=== PATIENT | male | born 1985 | race Caucasian/White ===

== ENCOUNTER 2021-09-18 13:58 | Inpatient (IN) | payer OTHER, SELFPAY ==
[2021-09-18 14:10] VITALS: BP 124/85; PULSE 103; RESP 18; TEMP 36.6; O2SAT 99; BMI 18.7
--- NOTE | 2021-09-18 15:10 | ED.NEUROSD ---
HPI - Neuro Symptoms/Deficit General Chief Complaint: Neuro Symptoms/Deficit Stated Complaint: NECK PAIN STS NEEDS MRI Time Seen by Provider: 09/18/21 14:01 Source: patient Mode of arrival: ambulatory Limitations: language barrier (Patient does speak Kazakh, his 1st language is Maltese, middle school assistant principal was used) History of Present Illness HPI Narrative: 36-year-old male with a history of MS who presents emergency department for evaluation numbness of new facial numbness, lower extremity numbness, lower extremity weakness, change in his speech, difficulty swallowing and difficulty walking secondary to his weakness. Patient states that he has had MS for approximately 6 years. His neurologist is Dr. Perera at [facility]. He states that he last had a flare-up of his MS in August of 2020 received 5 days of IV steroids. The patient states that his speech has changed. He states that he is having difficulty swallowing but is able to swallow solids and liquids. He states that he normally walks with a walker but over the past 5 days his legs have become weak and he feels off balance and needs to use a wheelchair which is unusual for him. He states that he has new numbness in his face, arms and legs. States that his arms are also weaker than usual. Patient does have a history of migraine headaches he states he is also having headache she describes as a diffuse, constant, dull pain which is moderate in intensity. He denied fever, chills, chest pain, shortness of breath. The patient states that he received his 2nd shot his COVID-19 vaccination approximately 1 month prior but cannot recall which brand vaccine he received. Related Data Home Medications Medication Instructions Recorded Confirmed cholecalciferol (vitamin D3) 50 1 cap PO DAILY 09/18/21 09/18/21 mcg (2,000 unit) capsule dimethyl fumarate 240 mg 240 mg PO BID 09/18/21 09/18/21 capsule,delayed release ibuprofen 200 mg tablet 400 mg PO Q6H PRN 09/18/21 09/18/21 Allergies Allergy/AdvReac Type Severity Reaction Status Date / Time No Known Allergies Allergy Unverified 06/29/20 18:51 [No Known Allergies*] Review of Systems Review of Systems: Yes all other systems are reviewed and are negative [facility] Past Medical History [facility] Narrative: Past medical history: Multiple sclerosis x6 years, bowel to [facility]. Past surgical history: Umbilical hernia repair. Social history: The patient smokes 1-2 cigarettes per day. He occasionally drinks alcohol. He smokes marijuana daily. Social History Social History Advance Directives: No Advance Directives Information Provided: No Physical Exam Vital Signs: Vital Signs: Last Vital Signs Temp 98 F 09/18/21 14:10 Pulse 103 H 09/18/21 14:10 Resp 18 09/18/21 14:10 BP 124/85 09/18/21 14:10 Pulse Ox 99 09/18/21 14:10 BMI result Body Mass Index 18.7 Const: Other: Awake, alert, male patient, very pleasant and cooperative the patient does have slow comprehensible speech with no difficulty with word finding. He does not appear to be in distress. HENMT: Head: Yes normal to inspection, Yes normocephalic and Yes atraumatic Ears: external ears normal General nose exam: Normal external nose present Face and sinus: Yes normal facial exam Mouth: Normal oral and palatal mucosa present Throat: Yes posterior oropharynx normal Eyes: General: appearance normal, both eyes and all related structures Neck: Neck: Yes normal visual inspection, Yes no lymphadenopathy, Yes trachea midline and Yes supple Chest: Chest palpation & inspection: normal inspection of the chest and normal palpation of entire chest wall Resp: Effort & Inspection: normal respiratory effort and able to speak in complete sentences Auscultation: clear to auscultation bilaterally Cardio: Rate: regular rate Rhythm: regular rhythm Heart sounds: S1 normal heart sound present, S2 normal heart sound present and no murmurs GI: Inspection: Yes normal to inspection Palpation (GI): Soft to palpation, nontender and no guarding Auscultation: normal bowel sounds : General: Yes no CVA tenderness Back/Spine/Pelvis: Back: no CVA tenderness Skin: General skin exam: no rashes or lesions noted Neuro: Other: Neurologic exam: The patient has a slow speech pattern with slightly dysarthric speech but it is comprehensible. The patient's cranial nerves are intact the patient's upper extremity strength is symmetric, he is able to hold his arms up against gravity but he does have symmetric weakness. Patient is able to hold his left lower extremity up against gravity, he is able to lift his right lower extremity but quickly falls back to the bed. Patient's light touch examination appears to be normal and symmetric bilaterally. Extrem: General: Yes normal to inspection Psych: Appearance: grossly normal Speech and movement: Normal speech and movement present Affect: normal affect Attitude: cooperative Thought process: Normal thought process present Thought content: Normal thought content present Course Course Course Narrative: 36-year-old male with a 6 year history of MS who normally able to walk using a walker who has had a change in his speech pattern with weakness in his upper and lower extremities and is not able to walk secondary to this weakness. Initial vital signs revealed an elevated pulse of 103. examination did reveal a slow, dysarthric speech pattern which is comprehensible he does have upper extremity weakness which appears to be symmetric right greater than left. I am concerned the patient may have a flare-up of his MS. I ordered laboratory evaluation to include CBC, CMP, CRP, sedimentation rate, CK, urinalysis, urine drug screen, ETOH level. I will also obtain an MRI with and without contrast the patient's brain and cervical spine. The patient will be treated with morphine 4 mg IV and Zofran 4 mg IV for his headache. I also ordered Solu-Medrol 1000 mg IV for possible MS flare up. 1639: Laboratory evaluation: WBC was elevated 13,300, H&H was normal 14 and 43.4, platelet count was normal 199,000. CMP was normal. CK was not elevated. CRP was normal. ESR is pending. TSH is pending. Urine tox screen was negative. Alcohol is below detectable limits. I did discuss the patient's presentation with our covering neurologist, Dr. Leone. He agreed with the MRIs as above and also agreed with the IV Solu-Medrol. Recommended the patient be admitted for further management MS flare up. I will discuss the patient's presentation with the covering hospitalist. 1720: Patient was presented to the covering hospitalist, nurse practitioner Amrita Ardon who accepted the patient on to the hospital service. MDM - Neuro Symptoms/Deficit Lab Data Result diagrams: 09/18/21 16:16 09/18/21 16:16 Labs: Lab Results 09/18/21 09/18/21 09/18/21 Range/Units 16:16 16:16 16:16 WBC 13.3 H (4.8-10.8) X10*3/uL RBC 5.44 (4.60-5.80) X10*6/uL Hgb 14.2 (14.0-18.0) g/dl Hct 43.4 (42.0-52.0) % MCV 79.8 L (80.0-98.0) fL MCH 26.1 L (27.0-33.0) pg MCHC 32.7 (31.0-36.0) g/dl RDW 13.8 (11.0-16.0) % Plt Count 199 (160-400) X10*3/uL MPV 12.5 H (9.4-12.4) fL Immature Gran % (Auto) 0.3 (0.0-0.4) % Neut % (Auto) 83.3 H (45-73) % Lymph % (Auto) 6.8 L (20-40) % [place] % (Auto) 9.1 (2-11) % Eos % (Auto) 0.3 (0-4) % Baso % (Auto) 0.2 (0-2) % Lymph # (Auto) 0.9 L (1.2-4.9) X10*3/uL [place] # (Auto) 1.2 (0.1-1.2) X10*3/uL Eos # (Auto) 0.0 (0.0-0.4) X10*3/uL Baso # (Auto) 0.0 (0.0-0.2) X10*3/uL Abs Immat Gran (auto) 0.04 H (0.00-0.03) X10*3/uL Absolute Neuts (auto) 11.1 H (2.0-8.3) x10*3/uL Absolute Nucleated RBC 0.000 (0.0-0.012) X10*3/uL Nucleated RBC % (auto) 0.0 (0.0-0.2) /100WBC ESR 3 (0-15) MM/HR PT 12.6 (9.9-13.0) SEC INR 1.1 (0.9-1.1) APTT 40.7 H (24.1-38.0) SEC Sodium (135-145) mmol/L Potassium (3.3-5.1) mmol/L Chloride (96-108) mmol/L Carbon Dioxide (22-29) mmol/L Anion Gap (12-20) BUN (9-16) mg/dL Creatinine (0.5-1.4) mg/dL Estim Creat Clear Calc Estimated GFR Random Glucose (60-115) mg/dL Calcium (8.4-10.2) mg/dL Total Bilirubin (0.0-1.0) mg/dL AST (5-37) U/L ALT (0-40) U/L Alkaline Phosphatase (39-117) U/L Total Creatine Kinase (38-174) U/L C-Reactive Protein (< or = 0.50) mg/dL Total Protein (6.5-8.0) g/dL Albumin (3.5-5.0) g/dL Lipase (8-78) U/L TSH (0.32-4.0) uIU/mL Urine Color Urine Appearance Urine pH (5.0-8.0) Ur Specific [place] (1.005-1.025) Urine Protein (NEG-TRACE) MG/DL Urine Glucose (UA) (NEG) MG/DL Urine Ketones (NEG) MG/DL Urine Blood (NEG) Urine Nitrite (NEG) Ur Leukocyte Esterase (NEG) Urine RBC (0) /HPF Urine WBC (0-4) /HPF Ur Squamous Epith Cells /LPF Amorphous Sediment /LPF Urine Bacteria /LPF Urine Opiates Screen (Not Detect) Urine Fentanyl Screen (Not Detect) Ur Barbiturates Screen (Not Detect) Ur Phencyclidine Scrn (Not Detect) Ur Amphetamines Screen (Not Detect) U Benzodiazepines Scrn (Not Detect) Urine Cocaine Screen (Not Detect) U Marijuana (THC) Screen (Not Detect) Ethyl Alcohol mg/dL COVID-19 ([facility]) (Negative) COVID-19 Clin Com 09/18/21 09/18/21 09/18/21 Range/Units 16:16 16:16 16:16 WBC (4.8-10.8) X10*3/uL RBC (4.60-5.80) X10*6/uL Hgb (14.0-18.0) g/dl Hct (42.0-52.0) % MCV (80.0-98.0) fL MCH (27.0-33.0) pg MCHC (31.0-36.0) g/dl RDW (11.0-16.0) % Plt Count (160-400) X10*3/uL MPV (9.4-12.4) fL Immature Gran % (Auto) (0.0-0.4) % Neut % (Auto) (45-73) % Lymph % (Auto) (20-40) % [place] % (Auto) (2-11) % Eos % (Auto) (0-4) % Baso % (Auto) (0-2) % Lymph # (Auto) (1.2-4.9) X10*3/uL [place] # (Auto) (0.1-1.2) X10*3/uL Eos # (Auto) (0.0-0.4) X10*3/uL Baso # (Auto) (0.0-0.2) X10*3/uL Abs Immat Gran (auto) (0.00-0.03) X10*3/uL Absolute Neuts (auto) (2.0-8.3) x10*3/uL Absolute Nucleated RBC (0.0-0.012) X10*3/uL Nucleated RBC % (auto) (0.0-0.2) /100WBC ESR (0-15) MM/HR PT (9.9-13.0) SEC INR (0.9-1.1) APTT (24.1-38.0) SEC Sodium 140 (135-145) mmol/L Potassium 4.2 (3.3-5.1) mmol/L Chloride 101 (96-108) mmol/L Carbon Dioxide 29 (22-29) mmol/L Anion Gap 14 (12-20) BUN 11 (9-16) mg/dL Creatinine 0.75 (0.5-1.4) mg/dL Estim Creat Clear Calc 106.8 Estimated GFR > 60 Random Glucose 89 (60-115) mg/dL Calcium 9.7 (8.4-10.2) mg/dL Total Bilirubin 0.6 (0.0-1.0) mg/dL AST 17 (5-37) U/L ALT 19 (0-40) U/L Alkaline Phosphatase 60 (39-117) U/L Total Creatine Kinase 79 (38-174) U/L C-Reactive Protein 0.04 (< or = 0.50) mg/dL Total Protein 7.9 (6.5-8.0) g/dL Albumin 4.8 (3.5-5.0) g/dL Lipase 34 (8-78) U/L TSH 0.83 (0.32-4.0) uIU/mL Urine Color Urine Appearance Urine pH (5.0-8.0) Ur Specific [place] (1.005-1.025) Urine Protein (NEG-TRACE) MG/DL Urine Glucose (UA) (NEG) MG/DL Urine Ketones (NEG) MG/DL Urine Blood (NEG) Urine Nitrite (NEG) Ur Leukocyte Esterase (NEG) Urine RBC (0) /HPF Urine WBC (0-4) /HPF Ur Squamous Epith Cells /LPF Amorphous Sediment /LPF Urine Bacteria /LPF Urine Opiates Screen (Not Detect) Urine Fentanyl Screen (Not Detect) Ur Barbiturates Screen (Not Detect) Ur Phencyclidine Scrn (Not Detect) Ur Amphetamines Screen (Not Detect) U Benzodiazepines Scrn (Not Detect) Urine Cocaine Screen (Not Detect) U Marijuana (THC) Screen (Not Detect) Ethyl Alcohol < 10 mg/dL COVID-19 ([facility]) Negative (Negative) COVID-19 Clin Com See Note 09/18/21 09/18/21 Range/Units 16:16 16:16 WBC (4.8-10.8) X10*3/uL RBC (4.60-5.80) X10*6/uL Hgb (14.0-18.0) g/dl Hct (42.0-52.0) % MCV (80.0-98.0) fL MCH (27.0-33.0) pg MCHC (31.0-36.0) g/dl RDW (11.0-16.0) % Plt Count (160-400) X10*3/uL MPV (9.4-12.4) fL Immature Gran % (Auto) (0.0-0.4) % Neut % (Auto) (45-73) % Lymph % (Auto) (20-40) % [place] % (Auto) (2-11) % Eos % (Auto) (0-4) % Baso % (Auto) (0-2) % Lymph # (Auto) (1.2-4.9) X10*3/uL [place] # (Auto) (0.1-1.2) X10*3/uL Eos # (Auto) (0.0-0.4) X10*3/uL Baso # (Auto) (0.0-0.2) X10*3/uL Abs Immat Gran (auto) (0.00-0.03) X10*3/uL Absolute Neuts (auto) (2.0-8.3) x10*3/uL Absolute Nucleated RBC (0.0-0.012) X10*3/uL Nucleated RBC % (auto) (0.0-0.2) /100WBC ESR (0-15) MM/HR PT (9.9-13.0) SEC INR (0.9-1.1) APTT (24.1-38.0) SEC Sodium (135-145) mmol/L Potassium (3.3-5.1) mmol/L Chloride (96-108) mmol/L Carbon Dioxide (22-29) mmol/L Anion Gap (12-20) BUN (9-16) mg/dL Creatinine (0.5-1.4) mg/dL Estim Creat Clear Calc Estimated GFR Random Glucose (60-115) mg/dL Calcium (8.4-10.2) mg/dL Total Bilirubin (0.0-1.0) mg/dL AST (5-37) U/L ALT (0-40) U/L Alkaline Phosphatase (39-117) U/L Total Creatine Kinase (38-174) U/L C-Reactive Protein (< or = 0.50) mg/dL Total Protein (6.5-8.0) g/dL Albumin (3.5-5.0) g/dL Lipase (8-78) U/L TSH (0.32-4.0) uIU/mL Urine Color YELLOW Urine Appearance CLEAR Urine pH 7.5 (5.0-8.0) Ur Specific [place] 1.010 (1.005-1.025) Urine Protein NEG (NEG-TRACE) MG/DL Urine Glucose (UA) NEG (NEG) MG/DL Urine Ketones NEG (NEG) MG/DL Urine Blood TRACE (NEG) Urine Nitrite NEG (NEG) Ur Leukocyte Esterase NEG (NEG) Urine RBC 0-2 (0) /HPF Urine WBC 0 (0-4) /HPF Ur Squamous Epith Cells TRACE /LPF Amorphous Sediment 2+ /LPF Urine Bacteria NONE /LPF Urine Opiates Screen Not Detected (Not Detect) Urine Fentanyl Screen Not Detected (Not Detect) Ur Barbiturates Screen Not Detected (Not Detect) Ur Phencyclidine Scrn Not Detected (Not Detect) Ur Amphetamines Screen Not Detected (Not Detect) U Benzodiazepines Scrn Not Detected (Not Detect) Urine Cocaine Screen Not Detected (Not Detect) U Marijuana (THC) Screen Not Detected (Not Detect) Ethyl Alcohol mg/dL COVID-19 ([facility]) (Negative) COVID-19 Clin Com Discharge Plan Discharge Patient Disposition: Admitted As Inpatient Prescriptions: No Action ibuprofen 200 mg Tablet 400 mg PO Q6H PRN (Reason: Pain) RF: 0 cholecalciferol (vitamin D3) 50 mcg (2,000 unit) capsule 1 cap PO DAILY RF: 0 dimethyl fumarate 240 mg capsule,delayed release(DR/EC) 240 mg PO BID RF: 0
[2021-09-18 16:21] LABS: MANUAL DIFF FLAG NO
[2021-09-18 16:22] LABS: Basophils Percent Auto 0.2 % (0-2); Eosinophils Percent Auto 0.3 % (0-4); Hematocrit 43.4 % (42.0-52.0); Hemoglobin 14.2 g/dl (14.0-18.0); Imm Gran Abs Auto 0.04 X10*3/uL (0.00-0.03); Imm Gran Pct Auto 0.3 % (0.0-0.4); Lymphocytes Absolute Auto 0.9 X10*3/uL (1.2-4.9); Lymphocytes Percent Auto 6.8 % (20-40); Mean Corpuscular HGB Conc 32.7 g/dl (31.0-36.0); Mean Corpuscular Hemoglobin 26.1 pg (27.0-33.0); Mean Corpuscular Volume 79.8 fL (80.0-98.0); Mean Platelet Volume 12.5 fL (9.4-12.4); Monocytes Absolute Auto 1.2 X10*3/uL (0.1-1.2); Monocytes Percent Auto 9.1 % (2-11); Neutrophils Absolute Auto 11.1 x10*3/uL (2.0-8.3); Neutrophils Percent Auto 83.3 % (45-73); Platelet Count 199 X10*3/uL (160-400); Red Blood Count 5.44 X10*6/uL (4.60-5.80); Red Cell Distribution Width 13.8 % (11.0-16.0); White Blood Count 13.3 X10*3/uL (4.8-10.8)
[2021-09-18 16:23] LABS: Appearance Urine CLEAR; Color Urine YELLOW; Glucose Urine UA NEG (NEG); Leukocyte Esterase Urine NEG (NEG); Nitrite Urine NEG (NEG); PH 7.5 (5.0-8.0); UACC Culture Trigger NO; Urine Blood TRACE (NEG); Urine Ketones NEG (NEG); Urine Protein NEG (NEG-TRACE)
[2021-09-18 16:29] LABS: INTERNATIONAL NORM RATIO 1.1 (0.9-1.1); Prothrombin Time 12.6 SEC (9.9-13.0)
[2021-09-18 16:32] LABS: Partial Thromboplastin Time 40.7 SEC (24.1-38.0)
[2021-09-18] MEDS: ondansetron HCL 4 MG/2 ML VIAL IVPUSH (16:32)
[2021-09-18] MEDS: Morphine Sulfate 4 MG/ML CARTRIDGE IVPUSH (16:32)
[2021-09-18 16:34] LABS: Ethanol < 10 mg/dL
[2021-09-18 16:38] LABS: Amorphous Sediment Urine 2+ /LPF; RBC Urine 0-2 /HPF (0); Squamous Epithelial Cell Urine TRACE /LPF; WBC Urine 0 /HPF (0-4)
[2021-09-18 16:39] LABS: Alanine Aminotransferase 19 U/L (0-40); Albumin Level 4.8 g/dL (3.5-5.0); Alkaline Phosphatase 60 U/L (39-117); Amphetamine Screen Urine Not Detected (Not Detect); Anion Gap 14 (12-20); Aspartate Amino Transferase 17 U/L (5-37); Barbiturates, Urine Not Detected (Not Detect); Benzodiazepines Screen Urine Not Detected (Not Detect); Bilirubin Total 0.6 mg/dL (0.0-1.0); Blood Urea Nitrogen 11 mg/dL (9-16); C Reactive Protein 0.04 mg/dL (< or = 0.50); Calcium 9.7 mg/dL (8.4-10.2); Cannabinoid Screen Urine Not Detected (Not Detect); Carbon Dioxide 29 mmol/L (22-29); Chloride 101 mmol/L (96-108); Cocaine Screen Urine Not Detected (Not Detect); Creatinine Clr Calc Pharmacy 106.8; Estimated Glomerular Filt Rate > 60; Fentanyl, urine Not Detected (Not Detect); Glucose Random 89 mg/dL (60-115); Lipase 34 U/L (8-78); Opiate Screen Urine Not Detected (Not Detect); Phencyclidine Screen Urine Not Detected (Not Detect); Potassium 4.2 mmol/L (3.3-5.1); Sodium 140 mmol/L (135-145); Total Protein 7.9 g/dL (6.5-8.0)
[2021-09-18 16:44] LABS: COVID-19 Test Negative (Negative)
[2021-09-18] MEDS: methylPREDNISolone Sod Succ 1,000 MG in 0.9 % Sodium Chloride 50 ML 66 MG IV (16:57)
[2021-09-18 16:59] LABS: TSH reflex Free T4 0.83 uIU/mL (0.32-4.0)
[2021-09-18 17:03] LABS: Erythrocyte Sedimentation Rate 3 MM/HR (0-15)
--- NOTE | 2021-09-18 17:13 | PHA.MEDREC ---
Pharmacy Consult ? Medication Reconciliation Pharmacy has completed the medication reconciliation. There are no remarkable issues for provider's attention. Tereza Escamilla, MehulD
--- NOTE | 2021-09-18 17:25 | PM.IMHP ---
History of Present Illness Date of Service: 09/18/21 Attending physician on admission: Romelia Yessenia 36 year old man presenting with 5 days of facial numbness as well as lower extremity numbness, weakness and change in his speech with difficulty swallowing and difficulty walking secondary to his weakness.? Patient states that he has had MS for approximately 6 years.? His neurologist is Dr. Perera at [facility].? His last flare was in 09/01. He is normally able to walk with a walker but has had more difficulty recently. Vital signs stable, Labs within acceptable limits. He was given 1mg of IV solumedrol, morphine, zofran. He will be admitted for further management and treatment of acute MS flare. Review of Systems Review of Systems: Denies any recent fever chills or decrease in appetite respiratory denies any shortness of breath coverage production cardiovascular denies chest pain gastrointestinal denies any dysphagia abdominal pain nausea vomiting or diarrhea genitourinary denies any dysuria frequency or hematuria musculoskeletal denies any joint pain or swelling neuropsych denies any weakness or seizures, speech change all other systems reviewed are negative [facility] Medical History (Updated 09/18/21 @ 17:38 by Amrita Ardon NP) Multiple sclerosis Pertinent family history: CAD, kidmey disease Surgical History (Updated 09/18/21 @ 18:42 by Amrita Ardon NP) H/O hernia repair Social History (Updated 09/18/21 @ 18:42 by Amrita Ardon NP) Household Members: Family Patient Tobacco Use Status: Tobacco use Unknown Substance Use Type: Marijuana Advance Directives: No Advance Directives Information Provided: No Meds Allergies Allergy/AdvReac Type Severity Reaction Status Date / Time No Known Allergies Allergy Unverified 06/29/20 18:51 [No Known Allergies*] Active Medications: Current Medications Acetaminophen (Acetaminophen 325 Mg Tablet) 650 mg PO Q6H PRN PRN Reason: Pain, Mild (Pain Scale 1-3) Enoxaparin Sodium (Enoxaparin Sodium 40 Mg/0.4 Ml Syringe) 40 mg SUBCUT Q24H LALO Methylprednisolone Sodium Succinate 1,000 mg/ Sodium Chloride 66 mls @ 66 mls/hr IV ONCE STA Stop: 09/18/21 17:28 Last Admin: 09/18/21 16:57 Dose: 66 mls/hr Documented by: Methylprednisolone Sodium Succinate (Methylprednisolone Sod Succ 40 Mg/Ml Vial) 1,000 mg IVPUSH DAILY [facility] Morphine Sulfate (Morphine Sulfate 2 Mg/Ml Cartridge) 2 mg IVPUSH Q4H PRN; Protocol PRN Reason: Pain, Mild (Pain Scale 1-3) Ondansetron HCl (Ondansetron Hcl 4 Mg/2 Ml Vial) 4 mg IVPUSH Q8H PRN PRN Reason: Nausea and Vomiting Pharmacy Consult (Consult Rx Perform Med Rec) 1 each MISCELLANE ONCE PRN PRN Reason: Consult order Sodium Chloride (0.9 % Sodium Chloride Flush 3 Ml Syringe) 3 ml IVFLUSH QSHIFT [facility] Home Medications Medication Instructions Recorded Confirmed Last Taken Type cholecalciferol (vitamin D3) 50 1 cap PO DAILY 09/18/21 09/18/21 09/18/21 History mcg (2,000 unit) capsule dimethyl fumarate 240 mg 240 mg PO BID 09/18/21 09/18/21 09/18/21 History capsule,delayed release ibuprofen 200 mg tablet 400 mg PO Q6H PRN 09/18/21 09/18/21 Unknown History Physical Exam Vital Signs and Narrative: Vital Signs: Last Vital Signs Temp 98 F 09/18/21 14:10 Pulse 103 H 09/18/21 14:10 Resp 18 09/18/21 14:10 BP 124/85 09/18/21 14:10 Pulse Ox 99 09/18/21 14:10 BMI result Body Mass Index 18.7 Appearing in no acute distress head is normocephalic atraumatic eyes pupils are PERRLA sclera is anicteric mouth throat mucous membranes are intact and moist neck is supple no lymphadenopathy, no JVD noted lung sounds are clear to auscultation heart regular rate rhythm, clear S1, S2 positive bowel sounds, abdomen is soft, nontender neuro patient is alert x3, no focal deficits Results Labs CBC and Chem 7: 09/18/21 16:16 09/18/21 16:16 Labs: Laboratory Results - last 24 hr 09/18/21 09/18/21 09/18/21 16:16 16:16 16:16 MCV 79.8 L MCH 26.1 L MCHC 32.7 RDW 13.8 Plt Count 199 MPV 12.5 H Immature Gran % (Auto) 0.3 Neut % (Auto) 83.3 H Lymph % (Auto) 6.8 L [place] % (Auto) 9.1 Eos % (Auto) 0.3 Baso % (Auto) 0.2 Lymph # (Auto) 0.9 L [place] # (Auto) 1.2 Eos # (Auto) 0.0 Baso # (Auto) 0.0 Abs Immat Gran (auto) 0.04 H Absolute Neuts (auto) 11.1 H Absolute Nucleated RBC 0.000 Nucleated RBC % (auto) 0.0 ESR 3 PT 12.6 INR 1.1 APTT 40.7 H Anion Gap Estim Creat Clear Calc Estimated GFR Random Glucose Calcium Total Bilirubin AST ALT Alkaline Phosphatase Total Creatine Kinase C-Reactive Protein Total Protein Albumin Lipase TSH Urine Color Urine Appearance Urine pH Ur Specific [employer] Urine Protein Urine Glucose (UA) Urine Ketones Urine Blood Urine Nitrite Ur Leukocyte Esterase Urine RBC Urine WBC Ur Squamous Epith Cells Amorphous Sediment Urine Bacteria Urine Opiates Screen Urine Fentanyl Screen Ur Barbiturates Screen Ur Phencyclidine Scrn Ur Amphetamines Screen U Benzodiazepines Scrn Urine Cocaine Screen U Marijuana (THC) Screen Ethyl Alcohol COVID-19 ([facility]) COVID-19 [employer] Com 09/18/21 09/18/21 09/18/21 16:16 16:16 16:16 MCV MCH MCHC RDW Plt Count MPV Immature Gran % (Auto) Neut % (Auto) Lymph % (Auto) [place] % (Auto) Eos % (Auto) Baso % (Auto) Lymph # (Auto) [place] # (Auto) Eos # (Auto) Baso # (Auto) Abs Immat Gran (auto) Absolute Neuts (auto) Absolute Nucleated RBC Nucleated RBC % (auto) ESR PT INR APTT Anion Gap 14 Estim Creat Clear Calc 106.8 Estimated GFR > 60 Random Glucose 89 Calcium 9.7 Total Bilirubin 0.6 AST 17 ALT 19 Alkaline Phosphatase 60 Total Creatine Kinase 79 C-Reactive Protein 0.04 Total Protein 7.9 Albumin 4.8 Lipase 34 TSH 0.83 Urine Color Urine Appearance Urine pH Ur Specific [employer] Urine Protein Urine Glucose (UA) Urine Ketones Urine Blood Urine Nitrite Ur Leukocyte Esterase Urine RBC Urine WBC Ur Squamous Epith Cells Amorphous Sediment Urine Bacteria Urine Opiates Screen Urine Fentanyl Screen Ur Barbiturates Screen Ur Phencyclidine Scrn Ur Amphetamines Screen U Benzodiazepines Scrn Urine Cocaine Screen U Marijuana (THC) Screen Ethyl Alcohol < 10 COVID-19 ([facility]) Negative COVID-19 [employer] Com See Note 09/18/21 09/18/21 16:16 16:16 MCV MCH MCHC RDW Plt Count MPV Immature Gran % (Auto) Neut % (Auto) Lymph % (Auto) [place] % (Auto) Eos % (Auto) Baso % (Auto) Lymph # (Auto) [place] # (Auto) Eos # (Auto) Baso # (Auto) Abs Immat Gran (auto) Absolute Neuts (auto) Absolute Nucleated RBC Nucleated RBC % (auto) ESR PT INR APTT Anion Gap Estim Creat Clear Calc Estimated GFR Random Glucose Calcium Total Bilirubin AST ALT Alkaline Phosphatase Total Creatine Kinase C-Reactive Protein Total Protein Albumin Lipase TSH Urine Color YELLOW Urine Appearance CLEAR Urine pH 7.5 Ur Specific [employer] 1.010 Urine Protein NEG Urine Glucose (UA) NEG Urine Ketones NEG Urine Blood TRACE Urine Nitrite NEG Ur Leukocyte Esterase NEG Urine RBC 0-2 Urine WBC 0 Ur Squamous Epith Cells TRACE Amorphous Sediment 2+ Urine Bacteria NONE Urine Opiates Screen Not Detected Urine Fentanyl Screen Not Detected Ur Barbiturates Screen Not Detected Ur Phencyclidine Scrn Not Detected Ur Amphetamines Screen Not Detected U Benzodiazepines Scrn Not Detected Urine Cocaine Screen Not Detected U Marijuana (THC) Screen Not Detected Ethyl Alcohol COVID-19 ([facility]) COVID-19 Clin Com Assessment and Plan (1) Multiple sclerosis exacerbation: Status: Acute 36-year-old man admitted with acute multiple sclerosis flare Multiple sclerosis flare 1 g of IV Solu-Medrol daily Pain management Supportive care MRI DVT prophylaxis with Lovenox attending Dr. Casas Quality Stroke Does the patient have a stroke diagnosis?: No VTE Prior VTE?: No VTE Risk Level:: Medical - moderate - high VTE Device Contraindication: Treatment Not Indicated VTE Drug Contraindication: N/A - Med Ordered
[2021-09-18 17:34] VITALS: BP 124/73; PULSE 118; RESP 15; TEMP 37.2; O2SAT 98
[2021-09-18] MEDS: Enoxaparin Sodium 40 MG/0.4 ML SYRINGE SUBCUT (18:38)
--- NOTE | 2021-09-18 19:40 | PC.NURSE ---
Per MRI staff, pt unable to tolerate scan, requested to exit machine and was noted by MRI staff to be diaphoretic and anxious. Pt returned to ED. MD Whitaker notified that scan was not obtained. Pt calm and in NAD upon reassessment
[2021-09-18 21:53] VITALS: BP 121/66; PULSE 86; TEMP 37.1; O2SAT 96
[2021-09-19 00:16] VITALS: BP 147/84; PULSE 108; TEMP 37; O2SAT 99
[2021-09-19 06:19] LABS: Hemoglobin 13.6 g/dl (14.0-18.0); Mean Corpuscular Volume 79.4 fL (80.0-98.0); Red Cell Distribution Width 13.4 % (11.0-16.0)
[2021-09-19 06:21] LABS: Hematocrit 41.3 % (42.0-52.0); Mean Corpuscular HGB Conc 32.9 g/dl (31.0-36.0); Mean Corpuscular Hemoglobin 26.2 pg (27.0-33.0); Mean Platelet Volume 13.2 fL (9.4-12.4); Platelet Count 191 X10*3/uL (160-400)
[2021-09-19 06:22] LABS: PLT ABN DIST 1; WBC ABN SCTR FOR CBC 1
[2021-09-19 06:23] LABS: White Blood Count 8.8 X10*3/uL (4.8-10.8)
[2021-09-19 06:36] LABS: Anion Gap 15 (12-20); Blood Urea Nitrogen 12 mg/dL (9-16); Carbon Dioxide 24 mmol/L (22-29); Chloride 105 mmol/L (96-108); Creatinine Clr Calc Pharmacy 96.5; Estimated Glomerular Filt Rate > 60; Glucose Random 144 mg/dL (60-115); Potassium 4.6 mmol/L (3.3-5.1); Sodium 139 mmol/L (135-145)
[2021-09-19 06:43] LABS: Band Neutrophils Percent 0 % (3-5); Lymphocytes Absolute Manual 0.7 X10*3/uL (1.2-4.9); Lymphocytes Percent Manual 8 % (20-40); Monocytes Absolute Manual 0.4 X10*3/uL (0.1-1.2); Monocytes Percent Manual 4 % (2-11); Neutrophils Absolute Manual 7.7 X10*3/uL (2.0-8.3); Neutrophils Percent Manual 88 % (45-73); Platelet Estimate NORMAL (NORMAL); Platelet Morphology Comment NORMAL; RBC Morphology NORMAL
[2021-09-19 08:00] VITALS: BP 127/82; PULSE 98; RESP 18; TEMP 37.2; O2SAT 98
--- NOTE | 2021-09-19 08:52 | P.PNIM_ITS ---
Subjective Subjective Date of Service: 09/19/21 Review of Systems Follow-up MS flare Speech slowly improving Denies pain Still with some muscle twitches All other systems are reviewed and are negative Physical Exam Vital Signs: Vital Signs: Last Vital Signs Temp 98.6 F 09/19/21 00:16 Pulse 108 H 09/19/21 00:16 Resp 15 09/18/21 17:34 BP 147/84 H 09/19/21 00:16 Pulse Ox 99 09/19/21 00:16 BMI result Body Mass Index 18.7 Appearing in no acute distress lung sounds are clear to auscultation heart regular rate rhythm, clear S1, S2 positive bowel sounds, abdomen is soft, nontender neuro patient is alert x3, no focal deficits Objective Data Active Medications Acetaminophen (Acetaminophen 325 Mg Tablet) 650 mg PO Q6H PRN PRN Reason: Pain, Mild (Pain Scale 1-3) Enoxaparin Sodium (Enoxaparin Sodium 40 Mg/0.4 Ml Syringe) 40 mg SUBCUT Q24H [facility] Last Admin: 09/18/21 18:38 Dose: 40 mg Documented by: ANDRY Methylprednisolone Sodium Succinate (Methylprednisolone Sod Succ 40 Mg/Ml Vial) 1,000 mg IVPUSH DAILY [facility] Morphine Sulfate (Morphine Sulfate 2 Mg/Ml Cartridge) 2 mg IVPUSH Q4H PRN; Prot ocol PRN Reason: Pain, Mild (Pain Scale 1-3) Ondansetron HCl (Ondansetron Hcl 4 Mg/2 Ml Vial) 4 mg IVPUSH Q8H PRN PRN Reason: Nausea and Vomiting Pharmacy Consult (Consult Rx Perform Med Rec) 1 each MISCELLANE ONCE PRN PRN Reason: Consult order Sodium Chloride (0.9 % Sodium Chloride Flush 3 Ml Syringe) 3 ml IVFLUSH QSHIFT [facility] Last Admin: 09/19/21 07:31 Dose: Not Given Documented by: ERICKOSN Non-Admin Reason: Patient Asleep Labs CBC & Chem 7: 09/19/21 06:10 09/19/21 06:10 Labs: Laboratory Results - last 24 hr 09/18/21 09/18/21 09/18/21 16:16 16:16 16:16 MCV 79.8 L MCH 26.1 L MCHC 32.7 RDW 13.8 Plt Count 199 MPV 12.5 H Immature Gran % (Auto) 0.3 Neut % (Auto) 83.3 H Lymph % (Auto) 6.8 L Kidder % (Auto) 9.1 Eos % (Auto) 0.3 Baso % (Auto) 0.2 Lymph # (Auto) 0.9 L Kidder # (Auto) 1.2 Eos # (Auto) 0.0 Baso # (Auto) 0.0 Abs Immat Gran (auto) 0.04 H Absolute Neuts (auto) 11.1 H Absolute Nucleated RBC 0.000 Nucleated RBC % (auto) 0.0 Neutrophils % (Manual) Band Neutrophils % Lymphocytes % (Manual) Monocytes % (Manual) Abs Neuts (Manual) Lymphocytes # (Manual) Monocytes # (Manual) Platelet Estimate Plt Morphology Comment RBC Morphology ESR 3 PT 12.6 INR 1.1 APTT 40.7 H Anion Gap Estim Creat Clear Calc Estimated GFR Random Glucose Calcium Total Bilirubin AST ALT Alkaline Phosphatase Total Creatine Kinase C-Reactive Protein Total Protein Albumin Lipase TSH Urine Color Urine Appearance Urine pH Ur Specific Marion Urine Protein Urine Glucose (UA) Urine Ketones Urine Blood Urine Nitrite Ur Leukocyte Esterase Urine RBC Urine WBC Ur Squamous Epith Cells Amorphous Sediment Urine Bacteria Urine Opiates Screen Urine Fentanyl Screen Ur Barbiturates Screen Ur Phencyclidine Scrn Ur Amphetamines Screen U Benzodiazepines Scrn Urine Cocaine Screen U Marijuana (THC) Screen Ethyl Alcohol COVID-19 ([facility]) COVID-19 Clin Com 09/18/21 09/18/21 09/18/21 16:16 16:16 16:16 MCV MCH MCHC RDW Plt Count MPV Immature Gran % (Auto) Neut % (Auto) Lymph % (Auto) Kidder % (Auto) Eos % (Auto) Baso % (Auto) Lymph # (Auto) Kidder # (Auto) Eos # (Auto) Baso # (Auto) Abs Immat Gran (auto) Absolute Neuts (auto) Absolute Nucleated RBC Nucleated RBC % (auto) Neutrophils % (Manual) Band Neutrophils % Lymphocytes % (Manual) Monocytes % (Manual) Abs Neuts (Manual) Lymphocytes # (Manual) Monocytes # (Manual) Platelet Estimate Plt Morphology Comment RBC Morphology ESR PT INR APTT Anion Gap 14 Estim Creat Clear Calc 106.8 Estimated GFR > 60 Random Glucose 89 Calcium 9.7 Total Bilirubin 0.6 AST 17 ALT 19 Alkaline Phosphatase 60 Total Creatine Kinase 79 C-Reactive Protein 0.04 Total Protein 7.9 Albumin 4.8 Lipase 34 TSH 0.83 Urine Color Urine Appearance Urine pH Ur Specific Marion Urine Protein Urine Glucose (UA) Urine Ketones Urine Blood Urine Nitrite Ur Leukocyte Esterase Urine RBC Urine WBC Ur Squamous Epith Cells Amorphous Sediment Urine Bacteria Urine Opiates Screen Urine Fentanyl Screen Ur Barbiturates Screen Ur Phencyclidine Scrn Ur Amphetamines Screen U Benzodiazepines Scrn Urine Cocaine Screen U Marijuana (THC) Screen Ethyl Alcohol < 10 COVID-19 ([facility]) Negative COVID-19 Clin Com See Note 09/18/21 09/18/21 09/19/21 16:16 16:16 06:10 MCV 79.4 L MCH 26.2 L MCHC 32.9 RDW 13.4 Plt Count 191 MPV 13.2 H Immature Gran % (Auto) Cancelled Neut % (Auto) Cancelled Lymph % (Auto) Cancelled Kidder % (Auto) Cancelled Eos % (Auto) Cancelled Baso % (Auto) Cancelled Lymph # (Auto) Cancelled Kidder # (Auto) Cancelled Eos # (Auto) Cancelled Baso # (Auto) Cancelled Abs Immat Gran (auto) Cancelled Absolute Neuts (auto) Cancelled Absolute Nucleated RBC 0.000 Nucleated RBC % (auto) 0.0 Neutrophils % (Manual) 88 H Band Neutrophils % 0 L Lymphocytes % (Manual) 8 L Monocytes % (Manual) 4 Abs Neuts (Manual) 7.7 Lymphocytes # (Manual) 0.7 L Monocytes # (Manual) 0.4 Platelet Estimate NORMAL Plt Morphology Comment NORMAL RBC Morphology NORMAL ESR PT INR APTT Anion Gap Estim Creat Clear Calc Estimated GFR Random Glucose Calcium Total Bilirubin AST ALT Alkaline Phosphatase Total Creatine Kinase C-Reactive Protein Total Protein Albumin Lipase TSH Urine Color YELLOW Urine Appearance CLEAR Urine pH 7.5 Ur Specific Marion 1.010 Urine Protein NEG Urine Glucose (UA) NEG Urine Ketones NEG Urine Blood TRACE Urine Nitrite NEG Ur Leukocyte Esterase NEG Urine RBC 0-2 Urine WBC 0 Ur Squamous Epith Cells TRACE Amorphous Sediment 2+ Urine Bacteria NONE Urine Opiates Screen Not Detected Urine Fentanyl Screen Not Detected Ur Barbiturates Screen Not Detected Ur Phencyclidine Scrn Not Detected Ur Amphetamines Screen Not Detected U Benzodiazepines Scrn Not Detected Urine Cocaine Screen Not Detected U Marijuana (THC) Screen Not Detected Ethyl Alcohol COVID-19 ([facility]) COVID-19 Clin Com 09/19/21 06:10 MCV MCH MCHC RDW Plt Count MPV Immature Gran % (Auto) Neut % (Auto) Lymph % (Auto) Kidder % (Auto) Eos % (Auto) Baso % (Auto) Lymph # (Auto) Kidder # (Auto) Eos # (Auto) Baso # (Auto) Abs Immat Gran (auto) Absolute Neuts (auto) Absolute Nucleated RBC Nucleated RBC % (auto) Neutrophils % (Manual) Band Neutrophils % Lymphocytes % (Manual) Monocytes % (Manual) Abs Neuts (Manual) Lymphocytes # (Manual) Monocytes # (Manual) Platelet Estimate Plt Morphology Comment RBC Morphology ESR PT INR APTT Anion Gap 15 Estim Creat Clear Calc 96.5 Estimated GFR > 60 Random Glucose 144 H D Calcium 10.0 Total Bilirubin AST ALT Alkaline Phosphatase Total Creatine Kinase C-Reactive Protein Total Protein Albumin Lipase TSH Urine Color Urine Appearance Urine pH Ur Specific Marion Urine Protein Urine Glucose (UA) Urine Ketones Urine Blood Urine Nitrite Ur Leukocyte Esterase Urine RBC Urine WBC Ur Squamous Epith Cells Amorphous Sediment Urine Bacteria Urine Opiates Screen Urine Fentanyl Screen Ur Barbiturates Screen Ur Phencyclidine Scrn Ur Amphetamines Screen U Benzodiazepines Scrn Urine Cocaine Screen U Marijuana (THC) Screen Ethyl Alcohol COVID-19 ([facility]) COVID-19 Clin Com Assessment and Plan (1) Multiple sclerosis exacerbation: Status: Acute (2) Microcytic anemia: Status: Acute Assessment and Plan: 36-year-old man admitted with acute multiple sclerosis flare Multiple sclerosis flare 1 g of IV Solu-Medrol daily Refused MRI and premedications d/t Claustrophobia Pain management Supportive care Microcytic anemia Stable H&H No signs of bleeding Follow CBC DVT prophylaxis with Lovenox attending Dr. Pope Quality Stroke Does the patient have a stroke diagnosis?: No VTE Prior VTE?: No VTE Risk Level:: Medical - moderate - high VTE Device Contraindication: Treatment Not Indicated VTE Drug Contraindication: N/A - Med Ordered
[2021-09-19 10:17] VITALS: BP 127/82; PULSE 98; O2SAT 98
[2021-09-19 11:59] VITALS: BMI 18.7
--- NOTE | 2021-09-19 11:59 | MHC.CM.PN ---
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
[2021-09-19 12:00] VITALS: BP 122/82; PULSE 72; RESP 18; TEMP 37.2; O2SAT 98
--- NOTE | 2021-09-19 12:05 | MHC.CLN ---
PT WITH INCREASED NUTRITION NEEDS R/T MS PT IS WELL NOURISHED APPEARS WITH ADEQUATE MUSCLE MASS. PT REPORTS EXERCISING REGULARLY ON STATIONARY BIKE AT HOME. UBW 156# PER PT. PT ESTIMATED HE WEIGHS APPROXIMATELY 140# AT THIS TIME. ADMIT WT 123# QUESTION ERROR PT APPEARS TO BE WITHIN IBW FOR HT DIET RX: REGULAR-APPROPRIATE PT RECEPTIVE TO DRINKING ENSURE. HE DOES DRINK BOOST AT HOME FOR INCREASED KCALS WILL START ENSURE BID (LIKES ALL FLAVORS) MONITOR PO INTAKE CLOSELY OBTAIN RE-WEIGHT SEE FULL NUTRITION ASSESSMENT
--- NOTE | 2021-09-19 13:54 | MHC.CM.PN ---
pt has been accepted [facility] pt had no preference ,,he is vaccinated and [facility] did say they can do [place] 30696 mg of solumederol notified they need to go to auth asking anjali when pt would be wed
--- NOTE | 2021-09-19 14:05 | MHC.CM.PN ---
pt is aware of [facility] acceptance and them going for ins also possible dc tomorrow
--- NOTE | 2021-09-19 15:36 | P.CNNE_ITS ---
History of Present Illness Data of Consult Service Date: 09/19/21 Primary Care Provider: [facility] Reason for consult: Multiple sclerosis 36 years old man who provided his own history stating that about 6 or 7 years ago he developed right leg or foot cramps. He was evaluated and ultimately diagnosed with multiple sclerosis at [facility]. He was put on Tecfidera that he has been taking since then. He said that his last hospitalization like this was when he was initially diagnosed. Overall he has done reasonably well though he was getting cereal MRIs. He came to hospital with worsening of his baseline symptoms including unsteadiness. He said that previously his speech was normal but this time he could not speak right. Couple of days ago he could not speak well could not get up and walk. He was treated with intravenous steroids and now he was feeling much better but still had difficulty walking and difficulty speaking. There was no recent cold or flu- like illness or infection. There was no recent trauma. His previous workup in MRI pictures were not available for review. Review of Systems Review of Systems: No recent cold or flu-like illness or trauma. [facility] Past Medical History Medical History Multiple sclerosis Surgical History Surgical History H/O hernia repair Social History Social History (Updated 09/18/21 @ 18:42 by Amrita Ardon NP) Household Members: Family Housing: Apartment 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 have visiting nurse or other home services: Yes ([employer] pat[employer] 16 hours per week) Patient Tobacco Use Status: Former Tobacco user Tobacco use type: Cigarette Use of substances other than those prescribed or required for medical reasons: Yes Substance Use Type: Marijuana Substance Use Frequency: Chronic Longstanding Last Used Substance: Weeks (ago) Currently Displaying Signs/Symptoms of Drug Intoxication Withdrawal: No Any prior treatment program specific to substance use: No Have you been hit, kicked, punched, or otherwise hurt by someone within the past year? If so, by whom?: No Do you feel safe in your current relationship?: No Current Relationship Is there a partner from a previous relationship who is making you feel unsafe now?: No Are you made to feel afraid or neglected: No Advance Directives: No Advance Directives Information Provided: No Advance Directives on File: No Do you have thoughts of harming others: None Recently lost weight without trying: No Eating poorly because of decreased appetite: No Nutrition Risks: No Nutritional Risk Poor oral hygiene: No service: No Meds Allergies Allergy/AdvReac Type Severity Reaction Status Date / Time No Known Allergies Allergy Unverified 06/29/20 18:51 [No Known Allergies*] Active Medications: Current Medications Acetaminophen (Acetaminophen 325 Mg Tablet) 650 mg PO Q6H PRN PRN Reason: Pain, Mild (Pain Scale 1-3) Enoxaparin Sodium (Enoxaparin Sodium 40 Mg/0.4 Ml Syringe) 40 mg SUBCUT Q24H [facility] Last Admin: 09/18/21 18:38 Dose: 40 mg Documented by: Methylprednisolone Sodium Succinate (Methylprednisolone Sod Succ 40 Mg/Ml Vial) 1,000 mg IVPUSH DAILY [facility] Morphine Sulfate (Morphine Sulfate 2 Mg/Ml Cartridge) 2 mg IVPUSH Q4H PRN; Protocol PRN Reason: Pain, Mild (Pain Scale 1-3) Ondansetron HCl (Ondansetron Hcl 4 Mg/2 Ml Vial) 4 mg IVPUSH Q8H PRN PRN Reason: Nausea and Vomiting Pharmacy Consult (Consult Rx Perform Med Rec) 1 each MISCELLANE ONCE PRN PRN Reason: Consult order Sodium Chloride (0.9 % Sodium Chloride Flush 3 Ml Syringe) 3 ml IVFLUSH QSHIFT [facility] Last Admin: 09/19/21 07:31 Dose: Not Given Documented by: Home Medications Medication Instructions Recorded Confirmed Last Taken Type cholecalciferol (vitamin D3) 50 1 cap PO DAILY 09/18/21 09/18/21 09/18/21 History mcg (2,000 unit) capsule dimethyl fumarate 240 mg 240 mg PO BID 09/18/21 09/18/21 09/18/21 History capsule,delayed release ibuprofen 200 mg tablet 400 mg PO Q6H PRN 09/18/21 09/18/21 Unknown History Physical Exam Vital Signs: Vital Signs: Last Vital Signs Temp 98.9 F 09/19/21 12:00 Pulse 72 09/19/21 12:00 Resp 18 09/19/21 12:00 BP 122/82 09/19/21 12:00 Pulse Ox 98 09/19/21 12:00 BMI result Body Mass Index 18.7 Neuro: Other: He was alert and awake with normal spontaneity and fluency of speech no speech was dysphasic. Tongue was midline without any atrophy. Face was symmetrical. Deep tendon reflexes were 3 to 4+ with equivocal plantars. Mild ataxia was noted in arms. Results Labs CBC & Chem 7: 09/19/21 06:10 09/19/21 06:10 Labs: Short CBC 09/18/21 09/19/21 Range/Units 16:16 06:10 WBC 13.3 H 8.8 (4.8-10.8) X10*3/uL Hgb 14.2 13.6 L (14.0-18.0) g/dl Hct 43.4 41.3 L (42.0-52.0) % Plt Count 199 191 (160-400) X10*3/uL BMP 09/18/21 09/19/21 16:16 06:10 Sodium 140 139 Potassium 4.2 4.6 Chloride 101 105 Carbon Dioxide 29 24 BUN 11 12 Creatinine 0.75 0.83 Calcium 9.7 10.0 Cardiac Enzymes 09/18/21 Range/Units 16:16 Total Creatine Kinase 79 (38-174) U/L Liver Function 09/18/21 Range/Units 16:16 Total Bilirubin 0.6 (0.0-1.0) mg/dL AST 17 (5-37) U/L ALT 19 (0-40) U/L Alkaline Phosphatase 60 (39-117) U/L Albumin 4.8 (3.5-5.0) g/dL Urine 09/18/21 Range/Units 16:16 Urine Color YELLOW Urine Appearance CLEAR Urine pH 7.5 (5.0-8.0) Ur Specific [place] 1.010 (1.005-1.025) Urine Protein NEG (NEG-TRACE) MG/DL Urine Glucose (UA) NEG (NEG) MG/DL Assessment and Plan (1) Multiple sclerosis exacerbation: Status: Acute 36 years old man who apparently was taking Tecfidera for multiple sclerosis for number of years. He was followed by [facility]. He came to this hospital with difficulty speaking and difficulty walking and was diagnosed with accessory february mccarty of multiple sclerosis and appropriately treated with intravenous steroids. At this point he was somewhat better. Without access to his previous imaging or recent imaging, definitive diagnosis was difficult to make but is overall clinical story and examination was suggesti ve of a condition like multiple sclerosis. At this time my recommendation is to refer him to rehab and then follow-up with his neurologist for any further actions. Procedures Date of Service Date of Service: 09/19/21
[2021-09-19 16:00] VITALS: BP 120/66; PULSE 95; RESP 18; TEMP 37.3; O2SAT 100
[2021-09-19] MEDS: methylPREDNISolone Sod Succ 1,000 MG in 0.9 % Sodium Chloride 50 ML 66 MG IV (16:50)
[2021-09-19] MEDS: 0.9 % Sodium Chloride Flush 3 ML SYRINGE IVFLUSH (16:50)
[2021-09-19] MEDS: Enoxaparin Sodium 40 MG/0.4 ML SYRINGE SUBCUT (16:58)
--- NOTE | 2021-09-19 17:02 | P.DS_ITS ---
DS: Providers Provider Date of admission: 09/18/21 17:18 Primary care physician: [facility] Consults: 09/19/21 09:04 Consult to Neurology Routine Consulting Provider: [facility] Reason for consultation: MS flare DS: Diagnosis Discharge Diagnosis (1) Multiple sclerosis exacerbation: Status: Acute DS: Summary Hospital Course Hospital Course: 36 year old man presenting with 5 days of facial numbness as well as lower extremity numbness, weakness and change in his speech with difficulty swallowing and difficulty walking secondary to his weakness.? Patient states that he has had MS for approximately 6 years.? His neurologist is Dr. Perera at [facility].? His last flare was in 09/01. He is normally able to walk with a walker but has had more difficulty recently. Vital signs stable, Labs within acceptable limits. He was given 1mg of IV solumedrol, morphine, zofran. He will be admitted for further management and treatment of acute MS flare. Multiple sclerosis flare. Patient was initially treated with 1000 mg of IV Solu-Medrol with good effect. He was seen and evaluated by Neurology who agreed with outpatient rehabilitation and physical therapy. He will continue with the Solu-Medrol for a total of 5 days. He will be discharged to acute rehab and he can follow-up with his neurologist as an outpatient. Time Spent with Patient Time attestation: Total time spent providing and/or coordinating discharge services: Physical Exam Vital Signs: Vital Signs: Last Vital Signs Temp 99.2 F 09/19/21 16:00 Pulse 95 09/19/21 16:00 Resp 18 09/19/21 16:00 BP 120/66 09/19/21 16:00 Pulse Ox 100 09/19/21 16:00 BMI result Body Mass Index 18.7 DS: Data Data Completed and Pending Labs on day of discharge: Laboratory Results - last 24 hr 09/18/21 09/19/21 09/19/21 16:16 06:10 06:10 WBC 8.8 RBC 5.20 Hgb 13.6 L Hct 41.3 L MCV 79.4 L MCH 26.2 L MCHC 32.9 RDW 13.4 Plt Count 191 MPV 13.2 H Immature Gran % (Auto) Cancelled Neut % (Auto) Cancelled Lymph % (Auto) Cancelled Baxter % (Auto) Cancelled Eos % (Auto) Cancelled Baso % (Auto) Cancelled Lymph # (Auto) Cancelled Baxter # (Auto) Cancelled Eos # (Auto) Cancelled Baso # (Auto) Cancelled Abs Immat Gran (auto) Cancelled Absolute Neuts (auto) Cancelled Absolute Nucleated RBC 0.000 Nucleated RBC % (auto) 0.0 Neutrophils % (Manual) 88 H Band Neutrophils % 0 L Lymphocytes % (Manual) 8 L Monocytes % (Manual) 4 Abs Neuts (Manual) 7.7 Lymphocytes # (Manual) 0.7 L Monocytes # (Manual) 0.4 Platelet Estimate NORMAL Plt Morphology Comment NORMAL RBC Morphology NORMAL ESR 3 Sodium 139 Potassium 4.6 Chloride 105 Carbon Dioxide 24 Anion Gap 15 BUN 12 Creatinine 0.83 Estim Creat Clear Calc 96.5 Estimated GFR > 60 Random Glucose 144 H D Calcium 10.0 Discharge Plan Discharge Patient Disposition: Xfer Inpatient Rehab Fac Discharge Diagnosis: Multiple sclerosis flare-up Referrals: [place] [Primary Care Provider] - 1 Week Discharge Medications: Continued ibuprofen 200 mg Tablet 400 mg PO Q6H PRN (Reason: Pain) RF: 0 cholecalciferol (vitamin D3) 50 mcg (2,000 unit) capsule 1 cap PO DAILY RF: 0 dimethyl fumarate 240 mg capsule,delayed release(DR/EC) 240 mg PO BID RF: 0 Diet: advance to usual diet Activity on Discharge: As tolerated Stand Alone Forms: Patient Portal Discharge page Care Plan Goals: complete resolution of multiple sclerosis flare symptoms Health Concerns: Multiple sclerosis flare-up Plan of Treatment: Follow-up with the neurologist and primary care provider as needed post acute rehab. continue Solu-Medrol for total of 5 days of 1000 mg daily IV Assessment: see discharge summary
[2021-09-19 20:00] VITALS: BP 133/70; PULSE 100; RESP 18; TEMP 36.8; O2SAT 97
[2021-09-20] VITALS: BP 122/60; PULSE 99; RESP 16; TEMP 37.3; O2SAT 97
[2021-09-20 03:35] VITALS: BP 128/74; PULSE 79; RESP 20; TEMP 36.3; O2SAT 98
[2021-09-20 07:49] VITALS: BP 125/72; PULSE 80; RESP 18; TEMP 36.1; O2SAT 99
[2021-09-20] MEDS: 0.9 % Sodium Chloride Flush 3 ML SYRINGE IVFLUSH (09:00)
--- NOTE | 2021-09-20 11:21 | P.DS_ITS ---
DS: Providers Provider Date of Service: 09/20/21 Date of admission: 09/18/21 17:18 Primary care physician: [facility] Consults: 09/19/21 09:04 Consult to Neurology Routine Consulting Provider: [facility] Reason for consultation: MS flare DS: Diagnosis Discharge Diagnosis (1) Multiple sclerosis exacerbation: Status: Acute DS: Summary Hospital Course Hospital Course: 36 year old man presenting with 5 days of facial numbness as well as lower extremity numbness, weakness and change in his speech with difficulty swallowing and difficulty walking secondary to his weakness.? Patient states that he has had MS for approximately 6 years.? His neurologist is Dr. Perera at [facility].? His last flare was in 09/01. He is normally able to walk with a walker but has had more difficulty recently. Vital signs stable, Labs within acceptable limits. He was given 1mg of IV solumedrol, morphine, zofran. He will be admitted for further management and treatment of acute MS flare. Multiple sclerosis flare. Patient treated with 1000 mg of IV Solu-Medrol with good effect. He was seen and evaluated by Neurology who agreed with outpatient rehabilitation and physical therapy. He will continue with the Solu-Medrol for a total of 5 days. He will be discharged to acute rehab and he can follow-up with his neurologist at [facility] as an outpatient. Time Spent with Patient Time attestation: Total time spent providing and/or coordinating discharge services: Discharge coordination time: Greater than 30 minutes Quality: Stroke Does the patient have a stroke diagnosis?: No Physical Exam Vital Signs: Vital Signs: Last Vital Signs Temp 97.0 F 09/20/21 07:49 Pulse 80 09/20/21 07:49 Resp 18 09/20/21 07:49 BP 125/72 09/20/21 07:49 Pulse Ox 99 09/20/21 07:49 BMI result Body Mass Index 18.7 General awake alert x3, no acute distress. Neck supple, no JVD. CVS regular rate rhythm, Respiratory lungs clear to auscultation, no respiratory distress, no wheeze, no rhonchi. Gastrointestinal abdomen soft, nontender, bowel sounds audible Extremities no edema. Neuro speech improved, face symmetrical, cranial nerve 2-12 intact, decreased strength both upper and lower extremity, unsteady gait Skin no rash Discharge Plan Discharge Patient Disposition: er Inpatient Rehab Fac Discharge Diagnosis: Multiple sclerosis flare-up Referrals: [place] [Primary Care Provider] - 1 Week Discharge Medications: New methylprednisolone sod suc(PF) 1,000 mg/8 mL recon soln 1,000 mg IV DAILY 3 Days Qty: 24 RF: 0 Continued cholecalciferol (vitamin D3) 50 mcg (2,000 unit) capsule 1 cap PO DAILY RF: 0 dimethyl fumarate 240 mg capsule,delayed release(DR/EC) 240 mg PO BID RF: 0 Held ibuprofen 200 mg Tablet 400 mg PO Q6H PRN (Reason: Pain) RF: 0 Hold Instructions: Resume on 09/24/21. Discharge Orders: Discharge Order (Routine); Ordered 09/20/21 Ordered By: Romelia Casas Diet: advance to usual diet Activity on Discharge: As tolerated Stand Alone Forms: Patient Portal Discharge page Care Plan Goals: multiple sclerosis flare symptoms resolving continue IV Solu Medrol for 3 more dosages Health Concerns: Multiple sclerosis flare-up Plan of Treatment: Follow-up with the neurologist and primary care provider as needed post acute rehab. continue Solu-Medrol for total of 5 days of 1000 mg daily IV Assessment: see discharge summary
[2021-09-20 11:52] VITALS: BP 132/68; PULSE 82; RESP 17; TEMP 36.7; O2SAT 98
--- NOTE | 2021-09-20 13:28 | MHC.CM.PN ---
NURSE HORSE BREEDER NOTE CLINICAL ACCEPTANCE AND CONFIRMED WITH MELISSA PEREZ FOR [facility] FOR D/C TODAY , PATIENTS FIRST CHOICE DISCHARGE PLAN TO ACUTE REHAB [facility] FOR MS FLARE UP IV STEROIDS FOR 3 DAYS [facility] WHEELCHAIR [facility] PATIENT IS AWARE AND ACCCEPTING
== END 2021-09-20 14:10 | DRG 60 ==
LOC: HO.ED 17:23 → HO.EDOVER 17:27 → HO.IMC 09-19 07:28 → HO.S3 09-19 22:48
PROVIDERS: Admitting Provider Nurse Practitioner Acute Care; Emergency Provider Emergency Medicine Emergency Medical Services; Visit Provider Hospitalist
DX: G35 Multiple sclerosis (principal); D50.9 Iron deficiency anemia, unspecified; F40.240 Claustrophobia; Z20.822 Contact with and (suspected) exposure to COVID-19; Z87.891 Personal history of nicotine dependence; Z79.1 Long term (current) use of non-steroidal anti-inflammatories (NSAID); Z79.899 Other long term (current) drug therapy
CPT/HCPCS: 36415; 80048; 80053; 80307; 81001; 82077; 82550; 83690; 84443; 85007; 85025; 85027; 85610; 85652; 85730; 86140; 87635; 96365; 96375; 97163; 99285; J1650; J2270; J2405; J2930

== ENCOUNTER 2021-10-31 13:50 | Inpatient (IN) | payer OTHER, SELFPAY ==
--- NOTE | ~2021-10-31 | MR_ITS ---
EXAMINATION: MR BRAIN WITHOUT AND WITH CONTRAST CLINICAL INFORMATION: Multiple sclerosis. Left-sided facial weakness. COMPARISON: Brain MRI from 12/05/2014. TECHNIQUE: MRI of the brain was obtained using routine sequences without and with contrast using MS protocol following the administration of 7 mL of Gadavist intravenous contrast. FINDINGS: Moderately motion limited exam. New Lesions: Extensive T2 FLAIR hyperintensities within the right greater than left cerebral peduncle, ventral midbrain, left greater than right superior cerebellar peduncles, ventral and dorsal aspects of the basia, full-thickness of the pontomedullary junction, and right greater than left middle cerebellar peduncles. Enhancing Lesions: There appears to be minimal wispy enhancement associated with the signal changes within the right dorsal midbrain/basia. No additional abnormal intracranial enhancement. Restricted Diffusion: None. T1 Black Holes: None. Volume Loss: None. Additional Findings: No demonstrated evidence of edema or expansion of the optic nerves, although evaluation is limited by motion artifact. No focal restricted diffusion is seen to suggest acute or subacute cerebral ischemia. No intracranial mass, intra-axial blood products, midline shift, or extra-axial collection is demonstrated. The ventricles and sulcal spaces appear normal. Normal arterial and venous vascular flow voids are present. No signal abnormalities within the superior sagittal or transverse sinuses. Mild mucosal thickening of the paranasal sinuses. Moderate leftward nasal septal deviation. No signal abnormalities within the mastoids. Moderate degenerative spondyloarthropathy of the visualized upper cervical spine. MR/MR head/brain wo/w con IMPRESSION: 1. Extensive T2 hyperintense lesions throughout the brainstem are new compared to exam from 2015. These changes may be consistent with sequela of a demyelinating process in the appropriate clinical setting. There is no overt restricted diffusion associated with these lesions although there is wispy enhancement in the right dorsal basia and midbrain which may indicate a degree of acuity. 2. No additional acute intracranial abnormalities. No additional abnormal intracranial enhancement. 3. The previously demonstrated signal abnormalities within the right optic nerve are not clearly present on today's exam, although evaluation is partially limited by motion artifact.
[2021-10-31 16:49] VITALS: BP 123/83; PULSE 116; RESP 18; TEMP 36.2; O2SAT 96; BMI 21.9
--- NOTE | 2021-10-31 17:21 | PC.NURSE ---
self transfered to stretcher with contact guard assist, mary cortes requests pt transfered to main ed for further evaluation and treatment, wire charger Colin, updated and will move him in a few minutes
[2021-10-31 18:24] LABS: MANUAL DIFF FLAG NO
[2021-10-31 18:32] LABS: Basophils Percent Auto 0.2 % (0-2); Eosinophils Percent Auto 0.1 % (0-4); Hematocrit 46.1 % (42.0-52.0); Hemoglobin 15.1 g/dl (14.0-18.0); Imm Gran Abs Auto 0.04 X10*3/uL (0.00-0.03); Imm Gran Pct Auto 0.3 % (0.0-0.4); Lymphocytes Absolute Auto 0.8 X10*3/uL (1.2-4.9); Lymphocytes Percent Auto 6.1 % (20-40); Mean Corpuscular HGB Conc 32.8 g/dl (31.0-36.0); Mean Corpuscular Hemoglobin 26.4 pg (27.0-33.0); Mean Corpuscular Volume 80.5 fL (80.0-98.0); Mean Platelet Volume 12.1 fL (9.4-12.4); Monocytes Absolute Auto 1.2 X10*3/uL (0.1-1.2); Monocytes Percent Auto 9.5 % (2-11); Neutrophils Absolute Auto 10.4 x10*3/uL (2.0-8.3); Neutrophils Percent Auto 83.8 % (45-73); Platelet Count 198 X10*3/uL (160-400); Red Blood Count 5.73 X10*6/uL (4.60-5.80); Red Cell Distribution Width 13.8 % (11.0-16.0); White Blood Count 12.4 X10*3/uL (4.8-10.8)
[2021-10-31] MEDS: methylPREDNISolone Sod Succ 1,000 MG in 0.9 % Sodium Chloride 50 ML 66 MG IV (18:37)
[2021-10-31 18:40] LABS: COVID-19 Test Negative (Negative)
[2021-10-31 18:44] LABS: Alanine Aminotransferase 11 U/L (0-40); Albumin Level 4.9 g/dL (3.5-5.0); Alkaline Phosphatase 62 U/L (39-117); Anion Gap 17 (12-20); Aspartate Amino Transferase 13 U/L (5-37); Bilirubin Total 0.5 mg/dL (0.0-1.0); Blood Urea Nitrogen 9 mg/dL (9-16); C Reactive Protein 0.04 mg/dL (< or = 0.50); Calcium 10.2 mg/dL (8.4-10.2); Carbon Dioxide 29 mmol/L (22-29); Chloride 101 mmol/L (96-108); Creatinine Clr Calc Pharmacy 123.9; Estimated Glomerular Filt Rate > 60; Glucose Random 98 mg/dL (60-115); Lipase 49 U/L (8-78); Potassium 4.5 mmol/L (3.3-5.1); Sodium 142 mmol/L (135-145); Total Protein 8.3 g/dL (6.5-8.0)
[2021-10-31 19:02] LABS: Erythrocyte Sedimentation Rate 5 MM/HR (0-15)
--- NOTE | 2021-10-31 19:05 | ED_ITS ---
HPI - General Adult General Chief complaint: Ear Problems Stated complaint: Left weakness/loss of hearing Time Seen by Provider: 10/31/21 17:06 Source: patient Mode of arrival: ambulatory Limitations: no limitations History of Present Illness HPI narrative: 36-year-old male with a history of multiple sclerosis who p resents emergency department for evaluation of left-sided facial weakness, left- sided facial numbness and tinnitus to the left ear. He states the symptoms started 4 days ago. He states that initially, the left side of his face became paralyzed, he states this is slightly better since he can wrinkle the left side of his forehead but he still cannot move the left lower part of his mouth. He states that he also developed a ringing and crackling sensation in his left ear. Patient is concerned that his symptoms are consistent with a flare-up of his MS. The patient was hospitalized here for an MS flare up from 09/18/2021 until 09/20/2021. At that time, he had new right-sided facial numbness with lower extremity numbness, change in his speech and difficulty swallowing secondary to his weakness. He was admitted to the hospital and treated with Solu-Medrol 1000 mg daily and sent to acute rehab to complete a 5 day course of IV Solu- Medrol and for physical therapy. The patient states that he was released from the nursing facility on 10/10/2021. He was started on baclofen, gabapentin and a laxative. He states that he eventually stop the gabapentin secondary to nausea and vomiting. He denied fever, chills, rhinorrhea, cough, myalgias arthralgias. patient received a 2 shot vaccine for COVID but does not remember the brand. His neurologist is Dr. Perera at [facility]. Related Data Home Medications Medication Instructions Recorded Confirmed cholecalciferol (vitamin D3) 50 1 cap PO DAILY 09/18/21 09/18/21 mcg (2,000 unit) capsule dimethyl fumarate 240 mg 240 mg PO BID 09/18/21 09/18/21 capsule,delayed release ibuprofen 200 mg tablet 400 mg PO Q6H PRN 09/18/21 09/18/21 Previous Rx's Medication Instructions Recorded methylprednisolone sod suc(PF) 1,000 mg (8 mL) IV DAILY 3 Days 09/20/21 1,000 mg/8 mL intravenous solution #24 ea Allergies Allergy/AdvReac Type Severity Reaction Status Date / Time No Known Allergies Allergy Unverified 06/29/20 18:51 [No Known Allergies*] Review of Systems Review of Systems: Yes all other systems are reviewed and are negative [facility] Past Medical History Medical History Headache Microcytic anemia Multiple sclerosis Surgical History H/O hernia repair Social History Social History Household Members: Family Housing: Apartment 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 have 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) Patient Tobacco Use Status: Former Tobacco user Tobacco use type: Cigarette Substance Use Type: Marijuana Advance Directives: No Advance Directives Information Provided: No service: No Physical Exam Vital Signs: Vital Signs: Last Vital Signs Temp 98.7 F 10/31/21 19:25 Pulse 106 H 10/31/21 19:25 Resp 18 10/31/21 19:25 BP 125/77 10/31/21 19:25 Pulse Ox 98 10/31/21 19:25 BMI result Body Mass Index 21.9 Const: Other: Awake, alert, male patient, dysarthric but comprehensible speech secondary to his MS, very pleasant and cooperative in no distress HENMT: Other: The patient is able to creases forehead however the creasing is less on the left than on the right, he does have a left lower lip droop compared to the right Head: Yes normocephalic and Yes atraumatic Ears: external ears normal General nose exam: Normal external nose present Mouth: Normal oral and palatal mucosa present Throat: Yes posterior oropharynx normal Eyes: General: appearance normal, both eyes and all related structures Neck: Neck: Yes normal visual inspection, Yes no lymphadenopathy, Yes trachea midline and Yes supple Chest: Chest palpation & inspection: normal inspection of the chest and normal palpation of entire chest wall Resp: Effort & Inspection: normal respiratory effort and able to speak in complete sentences Auscultation: clear to auscultation bilaterally Cardio: Rate: regular rate Rhythm: regular rhythm Heart sounds: S1 normal heart sound present, S2 normal heart sound present and no murmurs GI: Inspection: Yes normal to inspection Palpation (GI): Soft to palpation, nontender and no guarding Auscultation: normal bowel sounds : General: Yes no CVA tenderness Back/Spine/Pelvis: Back: no CVA tenderness Skin: General skin exam: no rashes or lesions noted Neuro: Other: Awake and alert oriented to person and place, cranial nerves 2- 12 did reveal a left facial droop involving the lower aspect of his mouth with some decreased ability to wrinkle his forehead compared to the right, the patient weakness and atrophy of both his upper and lower extremities with symmetric strength, his speech is dysarthric but comprehensible and he believes this is unchanged from his normal speech pattern Extrem: General: Yes normal to inspection Psych: Appearance: grossly normal Speech and movement: Normal speech and movement present Affect: normal affect Attitude: cooperative Thought process: Normal thought process present Thought content: Normal thought content present Course Course Course Narrative: 36-year-old male with a history of multiple sclerosis who presents emergency department for evaluation of 4 days of change in his hearing and left facial droop which are new. The patient's last MS flare up was on September 18, 2021 and he was treated with a 5 day course of IV steroids with improvement of his symptoms. Laboratory evaluation revealed [place] [address], normal ESR 5, normal comprehensive metabolic panel, non elevated CRP, COVID-19 negative. The patient's presentation is consistent with a flare-up of his MS. I ordered Solu-Medrol 1000 mg IV. I will discuss admission with the covering hospitalist. 2011: Discuss the patient's presentation with the covering hospitalist, Dr. Whitaker and the patient will be admitted for further treatment. Medical Decision Making Lab Data Result diagrams: 10/31/21 18:18 10/31/21 18:18 Labs: Lab Results 10/31/21 10/31/21 10/31/21 Range/Units 18:18 18:18 18:18 WBC 12.4 H (4.8-10.8) X10*3/uL RBC 5.73 (4.60-5.80) X10*6/uL Hgb 15.1 (14.0-18.0) g/dl Hct 46.1 (42.0-52.0) % MCV 80.5 (80.0-98.0) fL MCH 26.4 L (27.0-33.0) pg MCHC 32.8 (31.0-36.0) g/dl RDW 13.8 (11.0-16.0) % Plt Count 198 (160-400) X10*3/uL MPV 12.1 (9.4-12.4) fL Immature Gran % (Auto) 0.3 (0.0-0.4) % Neut % (Auto) 83.8 H (45-73) % Lymph % (Auto) 6.1 L (20-40) % [place] % (Auto) 9.5 (2-11) % Eos % (Auto) 0.1 (0-4) % Baso % (Auto) 0.2 (0-2) % Lymph # (Auto) 0.8 L (1.2-4.9) X10*3/uL [place] # (Auto) 1.2 (0.1-1.2) X10*3/uL Eos # (Auto) 0.0 (0.0-0.4) X10*3/uL Baso # (Auto) 0.0 (0.0-0.2) X10*3/uL Abs Immat Gran (auto) 0.04 H (0.00-0.03) X10*3/uL Absolute Neuts (auto) 10.4 H (2.0-8.3) x10*3/uL Absolute Nucleated RBC 0.000 (0.0-0.012) X10*3/uL Nucleated RBC % (auto) 0.0 (0.0-0.2) /100WBC ESR 5 (0-15) MM/HR Sodium 142 (135-145) mmol/L Potassium 4.5 (3.3-5.1) mmol/L Chloride 101 (96-108) mmol/L Carbon Dioxide 29 (22-29) mmol/L Anion Gap 17 (12-20) BUN 9 (9-16) mg/dL Creatinine 0.78 (0.5-1.4) mg/dL Estim Creat Clear Calc 123.9 Estimated GFR > 60 Random Glucose 98 (60-115) mg/dL Calcium 10.2 (8.4-10.2) mg/dL Total Bilirubin 0.5 (0.0-1.0) mg/dL AST 13 (5-37) U/L ALT 11 (0-40) U/L Alkaline Phosphatase 62 (39-117) U/L Total Creatine Kinase 53 (38-174) U/L C-Reactive Protein 0.04 (< or = 0.50) mg/dL Total Protein 8.3 H (6.5-8.0) g/dL Albumin 4.9 (3.5-5.0) g/dL Lipase 49 (8-78) U/L COVID-19 ([facility]) (Negative) COVID-19 Clin Com 10/31/21 Range/Units 18:18 WBC (4.8-10.8) X10*3/uL RBC (4.60-5.80) X10*6/uL Hgb (14.0-18.0) g/dl Hct (42.0-52.0) % MCV (80.0-98.0) fL MCH (27.0-33.0) pg MCHC (31.0-36.0) g/dl RDW (11.0-16.0) % Plt Count (160-400) X10*3/uL MPV (9.4-12.4) fL Immature Gran % (Auto) (0.0-0.4) % Neut % (Auto) (45-73) % Lymph % (Auto) (20-40) % [place] % (Auto) (2-11) % Eos % (Auto) (0-4) % Baso % (Auto) (0-2) % Lymph # (Auto) (1.2-4.9) X10*3/uL [place] # (Auto) (0.1-1.2) X10*3/uL Eos # (Auto) (0.0-0.4) X10*3/uL Baso # (Auto) (0.0-0.2) X10*3/uL Abs Immat Gran (auto) (0.00-0.03) X10*3/uL Absolute Neuts (auto) (2.0-8.3) x10*3/uL Absolute Nucleated RBC (0.0-0.012) X10*3/uL Nucleated RBC % (auto) (0.0-0.2) /100WBC ESR (0-15) MM/HR Sodium (135-145) mmol/L Potassium (3.3-5.1) mmol/L Chloride (96-108) mmol/L Carbon Dioxide (22-29) mmol/L Anion Gap (12-20) BUN (9-16) mg/dL Creatinine (0.5-1.4) mg/dL Estim Creat Clear Calc Estimated GFR Random Glucose (60-115) mg/dL Calcium (8.4-10.2) mg/dL Total Bilirubin (0.0-1.0) mg/dL AST (5-37) U/L ALT (0-40) U/L Alkaline Phosphatase (39-117) U/L Total Creatine Kinase (38-174) U/L C-Reactive Protein (< or = 0.50) mg/dL Total Protein (6.5-8.0) g/dL Albumin (3.5-5.0) g/dL Lipase (8-78) U/L COVID-19 ([facility]) Negative (Negative) COVID-19 Clin Com See Note
[2021-10-31 19:25] VITALS: BP 125/77; PULSE 106; RESP 18; TEMP 37.1; O2SAT 98
--- NOTE | 2021-10-31 20:21 | PHA.MEDREC ---
Pharmacy Consult ? Medication Reconciliation Pharmacy has completed the medication reconciliation.
--- NOTE | 2021-10-31 21:11 | P.HPHOSP_ITS ---
History of Present Illness Date of Service: 10/31/21 Chief Complaint: left facial droop 36-year-old male with a past medical history of multiple sclerosis presented to the hospital with a chief complaint of left facial droop for the past 5 days. Denies any difficulty swallowing denies any change in sensation; denies any recent viral infection; patient on recent admission in September 2021 when he had facial numbness and lower extremity numbness and difficulty swallowing; was on steroids for 5 days; Currently he has been having left facial droop symptoms for the past 5 days. Reports he has chronic left lower extremity numbness. Denies any chest pain or palpitations. Denies any fever chills cough. Review of all other systems is negative except mentioned above Patient denies any difficulty swallowing ER course: Per ER team patient noted a left facial droop; concern for MS flare. Started on Solu-Medrol 1000 mg IV. Admitted for further management. 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) Patient Tobacco Use Status: Former Tobacco user Tobacco use type: Cigarette Substance Use Type: Marijuana Advance Directives: No Advance Directives Information Provided: No service: No Meds Allergies Allergy/AdvReac Type Severity Reaction Status Date / Time No Known Allergies Allergy Unverified 06/29/20 18:51 [No Known Allergies*] Active Medications: Current Medications Melatonin (Melatonin 3 Mg Tablet) 6 mg PO BEDTIME PRN PRN Reason: Insomnia Senna (Sennosides 8.6 Mg Tablet) 17.2 mg PO BEDTIME PRN PRN Reason: Constipation Sodium Chloride (0.9 % Sodium Chloride Flush 3 Ml Syringe) [facility] Home Medications Medication Instructions Recorded Confirmed Last Taken Type cholecalciferol 1 cap PO DAILY 09/18/21 10/31/21 09/18/21 History (vitamin D3) 50 mcg (2,000 unit) capsule dimethyl fumarate 240 mg PO BID 09/18/21 10/31/21 09/18/21 History 240 mg capsule,delayed release baclofen 10 mg 1 tab PO TID 10/31/21 10/31/21 Unknown History tablet docusate sodium 100 1 cap PO BID 10/31/21 10/31/21 Unknown History mg capsule gabapentin 300 mg 1 cap PO DAILY 10/31/21 10/31/21 Unknown History capsule Physical Exam Verdana 4l Vital Signs and Narrative: Verdana 4d Verdana 4d Vital Signs: Verdana 4d Verdana 4Bd Last Vital Signs Verdana 4d Storyboard Artist New 4d Storyboard Artist New 4d Temp 98.7 F 10/31/21 19:25 Storyboard Artist New 4d Pulse 106 H 10/31/21 19:25 Storyboard Artist NewNew 4d Resp 18 10/31/21 19:25 BP 125/77 10/31/21 19:25 Pulse Ox 98 10/31/21 19:25 BMI result Body Mass Index 21.9 Gen: Appears be in no acute distress HEENT: NCAT, Moist mucosa. Pulmonary: Vesicular breath sounds, fair air entry CVS: Normal S1-S2 Abdomen: BS+, Soft, Nontender Extremities: Warm well perfused Neuro: Alert and awake.; left lower extremity decreased sensation compared to the right- chronic per patient; symmetrically weak in bilateral upper extremities 4+/5-chronic per patient; left facial droop noted. Sensations equal bilaterally of the face. Results Labs CBC and Chem 7: 10/31/21 18:18 10/31/21 18:18 Labs: Laboratory Results - last 24 hr 10/31/21 10/31/21 10/31/21 18:18 18:18 18:18 MCV 80.5 MCH 26.4 L MCHC 32.8 RDW 13.8 Plt Count 198 MPV 12.1 Immature Gran % (Auto) 0.3 Neut % (Auto) 83.8 H Lymph % (Auto) 6.1 L [place] % (Auto) 9.5 Eos % (Auto) 0.1 Baso % (Auto) 0.2 Lymph # (Auto) 0.8 L [place] # (Auto) 1.2 Eos # (Auto) 0.0 Baso # (Auto) 0.0 Abs Immat Gran (auto) 0.04 H Absolute Neuts (auto) 10.4 H Absolute Nucleated RBC 0.000 Nucleated RBC % (auto) 0.0 ESR 5 Anion Gap 17 Estim Creat Clear Calc 123.9 Estimated GFR > 60 Random Glucose 98 Calcium 10.2 Total Bilirubin 0.5 AST 13 ALT 11 Alkaline Phosphatase 62 Total Creatine Kinase 53 C-Reactive Protein 0.04 Total Protein 8.3 H Albumin 4.9 Lipase 49 COVID-19 ([facility]) COVID-19 Clin Com 10/31/21 18:18 MCV MCH MCHC RDW Plt Count MPV Immature Gran % (Auto) Neut % (Auto) Lymph % (Auto) [place] % (Auto) Eos % (Auto) Baso % (Auto) Lymph # (Auto) [place] # (Auto) Eos # (Auto) Baso # (Auto) Abs Immat Gran (auto) Absolute Neuts (auto) Absolute Nucleated RBC Nucleated RBC % (auto) ESR Anion Gap Estim Creat Clear Calc Estimated GFR Random Glucose Calcium Total Bilirubin AST ALT Alkaline Phosphatase Total Creatine Kinase C-Reactive Protein Total Protein Albumin Lipase COVID-19 ([facility]) Negative COVID-19 Clin Com See Note Assessment and Plan (1) Multiple sclerosis exacerbation: Status: Acute 36-year-old male with a past medical history of multiple sclerosis presented to the hospital with a chief complaint of left facial droop for the past 5 days. Concern for MS flare. Admitted for further management. Multiple sclerosis flare-up: Continue Solu-Medrol 1000 mg IV Once a day. aspiration precautions Neurology consult Continue home medications. Patient reports that he has stopped taking gabapentin as it is causing GI upset. DVT prophylaxis: SCD boots Code status: Full code Quality Stroke Does the patient have a stroke diagnosis?: No VTE Prior VTE?: No VTE Risk Level:: Medical - low VTE Device Contraindication: N/A - Device Ordered VTE Drug Contraindication: Treatment Not Indicated
[2021-10-31 21:48] VITALS: BP 119/75; PULSE 117; RESP 19; TEMP 37.2; O2SAT 98
[2021-11-01 06:17] LABS: Hematocrit 42.3 % (42.0-52.0); Hemoglobin 13.6 g/dl (14.0-18.0); Mean Corpuscular HGB Conc 32.2 g/dl (31.0-36.0); Mean Corpuscular Hemoglobin 26.1 pg (27.0-33.0); Mean Platelet Volume 12.6 fL (9.4-12.4); Platelet Count 209 X10*3/uL (160-400); Red Blood Count 5.22 X10*6/uL (4.60-5.80); Red Cell Distribution Width 13.6 % (11.0-16.0); White Blood Count 8.7 X10*3/uL (4.8-10.8)
[2021-11-01 06:31] LABS: Anion Gap 12 (12-20); Blood Urea Nitrogen 11 mg/dL (9-16); Calcium 10.3 mg/dL (8.4-10.2); Carbon Dioxide 31 mmol/L (22-29); Chloride 103 mmol/L (96-108); Cholesterol 146 mg/dL; Creatinine Clr Calc Pharmacy 120.8; Estimated Glomerular Filt Rate > 60; Glucose Random 157 mg/dL (60-115); HDL Cholesterol 60 mg/dL; LDL Cholesterol Calculated 81 mg/dl; Potassium 4.4 mmol/L (3.3-5.1); Sodium 142 mmol/L (135-145); Triglycerides 25 mg/dL
[2021-11-01 08:24] VITALS: BP 115/76; PULSE 89; RESP 12; TEMP 37
[2021-11-01] MEDS: Baclofen 10 MG TABLET PO ×3 (08:37→21:06)
[2021-11-01] MEDS: Cholecalciferol (Vitamin D3) 25 MCG TABLET 50 MCG PO (08:37)
[2021-11-01] MEDS: Docusate Sodium 100 MG CAPSULE PO ×2 (08:37→21:06)
[2021-11-01] MEDS: 0.9 % Sodium Chloride Flush 3 ML SYRINGE IVFLUSH ×2 (08:37→15:43)
--- NOTE | 2021-11-01 11:24 | PC.NURSE ---
Pt A&Ox4, no complaints of pain now, aware of PO Daily med non formulary and would need to have someone bring from home. Otherwise receiving all medications. Pt states he uses a wheelchair at home which is not with him, bedside commode and urinal for pt at this time. Neuros grossly intact. Call villar within reach, will continue to monitor.
--- NOTE | 2021-11-01 11:26 | MHC.CM.PN ---
PT REPORTS HE LIVES AT HOME WITH HIS FAMILY AND REQUIRES HELP WITH ALL CARE PT REPORTS HE DID HAVE A CLINICAL ACCOUNT SPECIALIST HOWEVER HE LEFT FOR UMKUMIUT SEVERAL WEEKS AGO AND SINCE THEN HIS MOTHER HAS BEEN HELPING HIM HE REPORTS HE ALSO HAS HALF-WAY, PHYSICAL, OCCUPATIONAL, AND SPEECH THERAPY IN THE HOME, HE IS UNSURE OF THE AGENCY PROVIDING SERVICES PT REPORTS HE HAS A WHEEL CHAIR, WALKER, AND SHOWER CHAIR AT HOME. PT DOES NOT KNOW THE NAME OF HIS PCP BUT REPORTS HE GOES TO THE [facility] PT DOES HAVE A HCP ON FILE NAMING POOJA MARTIN HIS AGENT. HE REPORTS THIS IS THE CLINICAL ACCOUNT SPECIALIST THAT LEFT FOR UMKUMIUT. CM OFFERED TO ASSIST PT IN COMPLETING A NEW HCP HOWEVER HE REPORTS HE DOES NOT WANT TO AT THIS TIME AND IS UNSURE WHO HE WOULD CHOOSE. PT REPORTS HE HAS RECEIVED THE COVID-19 VACCINE HOWEVER HE IS UNSURE OF THE BRAND. HE REPORTS HE IS NOT YET DUE FOR A BOOSTER. PTS MEDICARE RIGHTS WERE DELIVERED, THE ORIGINAL WAS LEFT AT BEDSIDE AND A COPY WAS SENT TO [facility]. CURRENT DC PLAN IS HOME WITH RESUMPTION OF SERVICES CM CALLED BECCA ([phone]) AT [facility]. SHE RPEORTS THE PT IS ACTIVE WITH Vericept SHE ALSO REPORTS HIS PCP IS REMA LOPES
--- NOTE | 2021-11-01 12:26 | P.CNNE_ITS ---
History of Present Illness Data of Consult Service Date: 11/01/21 Primary Care Provider: [facility] Reason for consult: Multiple sclerosis 36 years old man with underlying diagnosis of multiple sclerosis usually following [facility]. He said that he was diagnosed number of years ago but has been taking Tecfidera for last few years. He was last seen in September with possible excessive be mccarty and was treated with steroids. He came back to hospital again stating that for last few days his left side was weak and especially his face was weak. There was no obvious cold or flu-like illness. 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) Patient Tobacco Use Status: Former Tobacco user Tobacco use type: Cigarette Substance Use Type: Marijuana Advance Directives: No Advance Directives Information Provided: No service: No Current occupational status: disabled Meds Allergies Allergy/AdvReac Type Severity Reaction Status Date / Time No Known Allergies Allergy Unverified 06/29/20 18:51 [No Known Allergies*] Active Medications: Current Medications Baclofen (Baclofen 10 Mg Tablet) 10 mg PO TID COUNTS INCLUDE 234 BEDS AT THE [facility] Last Admin: 11/01/21 08:37 Dose: 10 mg Documented by: Docusate Sodium (Docusate Sodium 100 Mg Capsule) 100 mg PO BID COUNTS INCLUDE 234 BEDS AT THE [facility] Last Admin: 11/01/21 08:37 Dose: 100 mg Documented by: Methylprednisolone Sodium Succinate 1,000 mg/ Sodium Chloride 66 mls @ 66 ml s/hr IV DAILY COUNTS INCLUDE 234 BEDS AT THE [facility] Stop: 11/05/21 09:59 Melatonin (Melatonin 3 Mg Tablet) 6 mg PO BEDTIME PRN PRN Reason: Insomnia Non-Formulary Medication (Dimethyl Fumarate) 240 mg PO BID COUNTS INCLUDE 234 BEDS AT THE [facility] Senna (Sennosides 8.6 Mg Tablet) 17.2 mg PO BEDTIME PRN PRN Reason: Constipation Sodium Chloride (0.9 % Sodium Chloride Flush 3 Ml Syringe) 3 ml IVFLUSH QSHIFT COUNTS INCLUDE 234 BEDS AT THE [facility] Last Admin: 11/01/21 08:37 Dose: 3 ml Documented by: Vitamin D (Cholecalciferol (Vitamin D3) 25 Mcg Tablet) 50 mcg PO DAILY COUNTS INCLUDE 234 BEDS AT THE [facility] Last Admin: 11/01/21 08:37 Dose: 50 mcg Documented by: Home Medications Medication Instructions Recorded Confirmed Last Taken Type cholecalciferol (vitamin D3) 50 1 cap PO DAILY 09/18/21 10/31/21 09/18/21 Hist ory mcg (2,000 unit) capsule dimethyl fumarate 240 mg 240 mg PO BID 09/18/21 10/31/21 09/18/21 History capsule,delayed release baclofen 10 mg tablet 1 tab PO TID 10/31/21 10/31/21 Unknown History docusate sodium 100 mg capsule 1 cap PO BID 10/31/21 10/31/21 Unknown History gabapentin 300 mg capsule 1 cap PO DAILY 10/31/21 10/31/21 Unknown History Physical Exam Vital Signs: Vital Signs: Last Vital Signs Temp 98.6 F 11/01/21 08:24 Pulse 89 11/01/21 08:24 Resp 12 11/01/21 08:24 BP 115/76 11/01/21 08:24 Pulse Ox 98 10/31/21 21:48 BMI result Body Mass Index 21.9 Neuro: Other: Alert awake with normal spontaneity of speech fluency comprehension and affect. Pupils were round reactive. There was right-sided internuclear ophthalmoplegia. There was moderate left-sided facial weakness. There was mild left hemiparesis. Moderate ataxia was noted on [id number] testing especially on left side. Results Labs CBC & Chem 7: 11/01/21 05:49 11/01/21 05:49 Labs: Short CBC 10/31/21 11/01/21 Range/Units 18:18 05:49 WBC 12.4 H 8.7 (4.8-10.8) X10*3/uL Hgb 15.1 13.6 L (14.0-18.0) g/dl Hct 46.1 42.3 (42.0-52.0) % Plt Count 198 209 (160-400) X10*3/uL BMP 10/31/21 11/01/21 18:18 05:49 Sodium 142 142 Potassium 4.5 4.4 Chloride 101 103 Carbon Dioxide 29 31 H BUN 9 11 Creatinine 0.78 0.80 Calcium 10.2 10.3 H Cardiac Enzymes 10/31/21 Range/Units 18:18 Total Creatine Kinase 53 (38-174) U/L Liver Function 10/31/21 Range/Units 18:18 Total Bilirubin 0.5 (0.0-1.0) mg/dL AST 13 (5-37) U/L ALT 11 (0-40) U/L Alkaline Phosphatase 62 (39-117) U/L Albumin 4.9 (3.5-5.0) g/dL Assessment and Plan (1) Multiple sclerosis exacerbation: Status: Acute 36 years old man who probably has underlying remitting relapsing multiple sclerosis not fully controlled at this time. He usually follows [facility]. We do not have access to his previous test results. His examination clearly suggested that he likely has multiple sclerosis and is going through an accessory [place] mccarty. My recommendation is to treat him with Solu-Medrol are g a day for 5 days and obtain an MRI of brain with and without contrast. Procedures Date of Service Date of Service: 11/01/21
[2021-11-01 12:59] VITALS: BP 112/69; PULSE 96; RESP 13; TEMP 36.8; O2SAT 100
--- NOTE | 2021-11-01 15:46 | P.PNIM_ITS ---
Subjective Subjective Date of Service: 11/01/21 Interval History: seen and examined this morning follow up for MS flare Reporting improvement in facial movement. Review of Systems Review of Systems: Yes all other systems are reviewed and are negative Constitutional Constitutional: Denies chills and Denies fever(s) Cardiovascular Cardiovascular: Denies chest pain Respiratory Respiratory: Denies cough Gastrointestinal Gastrointestinal: Denies abdominal pain Physical Exam Vital Signs: Vital Signs: Last Vital Signs Temp 98.2 F 11/01/21 12:59 Pulse 96 11/01/21 12:59 Resp 13 11/01/21 12:59 BP 112/69 11/01/21 12:59 Pulse Ox 100 11/01/21 12:59 BMI result Body Mass Index 21.9 Const: General: cooperative, comfortable, alert and awake Nutritional Appearance: well nourished Orientation/consciousness: patient oriented x3 HENMT: Head: Yes normocephalic and Yes atraumatic Eyes: Sclerae: sclerae normal Resp: Effort & Inspection: normal respiratory effort and no respiratory distress Cardio: Rate: regular rate Rhythm: regular rhythm GI: Inspection: No distended Palpation (GI): Soft to palpation and nontender Neuro: Other: left facial droop, slight weakness left lower extremity General: patient oriented x3 Objective Data Active Medications Baclofen (Baclofen 10 Mg Tablet) 10 mg PO TID [facility] Last Admin: 11/01/21 15:38 Dose: 10 mg Documented by: OSCAR Docusate Sodium (Docusate Sodium 100 Mg Capsule) 100 mg PO BID [facility] Last Admin: 11/01/21 08:37 Dose: 100 mg Documented by: RASHEED-ENRIQUE Methylprednisolone Sodium Succinate 1,000 mg/ Sodium Chloride 66 mls @ 66 mls/hr IV DAILY [facility] Stop: 11/05/21 09:59 Melatonin (Melatonin 3 Mg Tablet) 6 mg PO BEDTIME PRN PRN Reason: Insomnia Patient Own Medication (Dimethyl Fumarate 240 Mg) 240 each PO BID [facility] Senna (Sennosides 8.6 Mg Tablet) 17.2 mg PO BEDTIME PRN PRN Reason: Constipation Sodium Chloride (0.9 % Sodium Chloride Flush 3 Ml Syringe) 3 ml IVFLUSH QSHIFT [facility] Last Admin: 11/01/21 15:43 Dose: 3 ml Documented by: OSCAR Vitamin D (Cholecalciferol (Vitamin D3) 25 Mcg Tablet) 50 mcg PO DAILY [facility] Last Admin: 11/01/21 08:37 Dose: 50 mcg Documented by: KALIE Labs CBC & Chem 7: 11/01/21 05:49 11/01/21 05:49 Labs: Laboratory Results - last 24 hr 10/31/21 10/31/21 10/31/21 18:18 18:18 18:18 MCV 80.5 MCH 26.4 L MCHC 32.8 RDW 13.8 Plt Count 198 MPV 12.1 Immature Gran % (Auto) 0.3 Neut % (Auto) 83.8 H Lymph % (Auto) 6.1 L Parke % (Auto) 9.5 Eos % (Auto) 0.1 Baso % (Auto) 0.2 Lymph # (Auto) 0.8 L Parke # (Auto) 1.2 Eos # (Auto) 0.0 Baso # (Auto) 0.0 Abs Immat Gran (auto) 0.04 H Absolute Neuts (auto) 10.4 H Absolute Nucleated RBC 0.000 Nucleated RBC % (auto) 0.0 ESR 5 Anion Gap 17 Estim Creat Clear Calc 123.9 Estimated GFR > 60 Random Glucose 98 Calcium 10.2 Total Bilirubin 0.5 AST 13 ALT 11 Alkaline Phosphatase 62 Total Creatine Kinase 53 C-Reactive Protein 0.04 Total Protein 8.3 H Albumin 4.9 Triglycerides Cholesterol LDL Cholesterol, Calc HDL Cholesterol Lipase 49 COVID-19 ([facility]) COVID-19 [facility] Com 10/31/21 11/01/21 11/01/21 18:18 05:49 05:49 MCV 81.0 MCH 26.1 L MCHC 32.2 RDW 13.6 Plt Count 209 MPV 12.6 H Immature Gran % (Auto) Neut % (Auto) Lymph % (Auto) Parke % (Auto) Eos % (Auto) Baso % (Auto) Lymph # (Auto) Parke # (Auto) Eos # (Auto) Baso # (Auto) Abs Immat Gran (auto) Absolute Neuts (auto) Absolute Nucleated RBC 0.000 Nucleated RBC % (auto) 0.0 ESR Anion Gap 12 Estim Creat Clear Calc 120.8 Estimated GFR > 60 Random Glucose 157 H D Calcium 10.3 H Total Bilirubin AST ALT Alkaline Phosphatase Total Creatine Kinase C-Reactive Protein Total Protein Albumin Triglycerides 25 Cholesterol 146 LDL Cholesterol, Calc 81 HDL Cholesterol 60 Lipase COVID-19 ([facility]) Negative COVID-19 Clin Com See Note Assessment and Plan (1) Multiple sclerosis exacerbation: Status: Acute Assessment and Plan: ?This is a 36-year-old male with a past medical history of multiple sclerosis presented to the hospital with a chief complaint of left facial droop for the past 5 days.? Concern for MS flare.? Admitted for further management.? Multiple sclerosis flare Continue Solu-Medrol? 1000 mg IV Once a day.? aspiration precautions seen by Neurology, agree with steroids, recommend MRI with and without contrast continue home baclofen, dimethyl fumarate Continue home medications.? Patient reports that he has stopped taking gabapentin as it is causing GI upset.? DVT prophylaxis:? SCD boots Code status:? Full code attending - dr. randall Quality Stroke Does the patient have a stroke diagnosis?: No VTE Prior VTE?: No VTE Risk Level:: Medical - low VTE Device Contraindication: N/A - Device Ordered VTE Drug Contraindication: Treatment Not Indicated
[2021-11-01] MEDS: LORazepam 1 MG TABLET PO (15:55)
[2021-11-01 16:00] VITALS: BP 114/68; PULSE 92; RESP 15; TEMP 36.7; O2SAT 99
--- NOTE | 2021-11-01 16:18 | MHC.SLORD ---
Speech Language Pathology Order Status: Communicated w/attending WIRE BENDER HAND re: Speech/Lang/Cognitive eval ordered for PT. Could not find indication in chart presenting need for this assessment. WIRE BENDER HAND ? if it should have been a swallow eval instead. After meeting w/ PT, he reports no difficulty eating/swallowing (had just had a full breakfast, also had food from home in room). Pt was normally communicative, appears to be at baseline. Sent WIRE BENDER [employer] secure text w/these observations. Recommend Cancel Speech/Language/Cognitive Eval.
--- NOTE | 2021-11-01 18:46 | PC.NURSE ---
Pt A/O x4. Denies pain. Agrreable to have MRI if medicated for anxiety. Lorazepam 1mg po ordered and given with good effect. Mild weakness to left face and arm but able to move without difficulty.
--- NOTE | 2021-11-01 19:30 | PC.NURSE ---
Assumed care of pt Pt in room on bed speaking with brother on phone NAD Will continue to monitor
[2021-11-01 20:09] VITALS: BP 135/74; PULSE 113; RESP 20; TEMP 37.5; O2SAT 97
--- NOTE | 2021-11-01 20:18 | PC.NURSE ---
ASSISTED PT OOB TO BEDSIDE RECLINER AND BACK TO BED. COMPLETE BEDDING CHANGE DONE. RN AWARE
[2021-11-01] MEDS: methylPREDNISolone Sod Succ 1,000 MG in 0.9 % Sodium Chloride 50 ML 66 MG IV (21:13)
[2021-11-01] MEDS: Melatonin 3 MG TABLET 6 MG PO (21:16)
--- NOTE | 2021-11-01 22:30 | PC.NURSE ---
Pt medicated per MAR Pt tolerated IV steroid Will continue to monitor
[2021-11-01 22:40] VITALS: PULSE 84; RESP 18; O2SAT 97
--- NOTE | 2021-11-02 00:51 | PC.NURSE ---
Pt resting on stretcher with eyes closed Breathing even and unlabored NAD Will continue to monitor
[2021-11-02 06:27] VITALS: BP 122/80; PULSE 79; RESP 16; TEMP 36.6; O2SAT 99
[2021-11-02 09:13] VITALS: BP 114/75; PULSE 83; RESP 16; O2SAT 99
[2021-11-02 09:54] VITALS: BP 134/71; PULSE 90; RESP 18; TEMP 37.1; O2SAT 100
[2021-11-02] MEDS: Docusate Sodium 100 MG CAPSULE PO ×2 (10:48→21:15)
[2021-11-02] MEDS: Cholecalciferol (Vitamin D3) 25 MCG TABLET 50 MCG PO (10:49)
[2021-11-02] MEDS: Baclofen 10 MG TABLET PO ×3 (10:49→21:15)
[2021-11-02] MEDS: 0.9 % Sodium Chloride Flush 3 ML SYRINGE IVFLUSH ×2 (10:49→15:12)
[2021-11-02 11:23] VITALS: BP 130/73; PULSE 101; RESP 18; TEMP 36.9; O2SAT 100
--- NOTE | 2021-11-02 11:32 | HO.PM.IMPN ---
Subjective Subjective Date of Service: 11/02/21 Interval History: seen and examined this morning follow up for covid flare slowly getting better no chest pain, sob, cough, fever, chills Review of Systems Review of Systems: Yes all other systems are reviewed and are negative Constitutional Constitutional: Denies chills and Denies fever(s) Cardiovascular Cardiovascular: Denies chest pain Respiratory Respiratory: Denies cough Gastrointestinal Gastrointestinal: Denies abdominal pain Physical Exam Vital Signs: Vital Signs: Last Vital Signs Temp 98.4 F 11/02/21 11:23 Pulse 101 H 11/02/21 11:23 Resp 18 11/02/21 11:23 BP 130/73 11/02/21 11:23 Pulse Ox 100 11/02/21 11:23 BMI result Body Mass Index 21.9 Const: General: cooperative, comfortable, alert and awake Nutritional Appearance: well nourished Orientation/consciousness: patient oriented x3 HENMT: Head: Yes normocephalic and Yes atraumatic Eyes: Sclerae: sclerae normal Resp: Effort & Inspection: normal respiratory effort and no respiratory distress Cardio: Rate: regular rate Rhythm: regular rhythm GI: Inspection: No distended Palpation (GI): Soft to palpation and nontender Neuro: Other: left sided facial weakness improving, weakness left lower extremity improving General: patient oriented x3 Objective Data Active Medications Baclofen (Baclofen 10 Mg Tablet) 10 mg PO TID [facility] Last Admin: 11/02/21 10:49 Dose: 10 mg Documented by: YASMINE Docusate Sodium (Docusate Sodium 100 Mg Capsule) 100 mg PO BID [facility] Last Admin: 11/02/21 10:48 Dose: 100 mg Documented by: YASMINE Methylprednisolone Sodium Succinate 1,000 mg/ Sodium Chloride 66 mls @ 66 mls/hr IV DAILY [facility] Stop: 11/05/21 09:59 Last Infusion: 11/01/21 22:30 Dose: 0 mls/hr Documented by: CORDELL Melatonin (Melatonin 3 Mg Tablet) 6 mg PO BEDTIME PRN PRN Reason: Insomnia Last Admin: 11/01/21 21:16 Dose: 6 mg Documented by: CORDELL Patient Own Medication (Dimethyl Fumarate 240 Mg) 240 each PO BID [facility] Last Admin: 11/01/21 21:19 Dose: 240 each Documented by: CORDELL Senna (Sennosides 8.6 Mg Tablet) 17.2 mg PO BEDTIME PRN PRN Reason: Constipation Sodium Chloride (0.9 % Sodium Chloride Flush 3 Ml Syringe) 3 ml IVFLUSH QSHIFT [facility] Last Admin: 11/02/21 10:49 Dose: 3 ml Documented by: YASMINE Vitamin D (Cholecalciferol (Vitamin D3) 25 Mcg Tablet) 50 mcg PO DAILY [facility] Last Admin: 11/02/21 10:49 Dose: 50 mcg Documented by: YASMINE Labs CBC & Chem 7: 11/01/21 05:49 11/01/21 05:49 Assessment and Plan (1) Multiple sclerosis exacerbation: Status: Acute Assessment and Plan: ?This is a 36-year-old male with a past medical history of multiple sclerosis presented to the hospital with a chief complaint of left facial droop for the past 5 days.? Concern for MS flare.? Admitted for further management.? Multiple sclerosis flare Continue Solu-Medrol 1000 mg IV daily for 5 days aspiration precautions seen by Neurology, agree with steroids MRI seems c/w MS continue home baclofen, dimethyl fumarate Continue home medications.? Patient reports that he has stopped taking gabapentin as it is causing GI upset.? DVT prophylaxis:? SCD boots Code status:? Full code attending - dr. randall Quality Stroke Does the patient have a stroke diagnosis?: No VTE Prior VTE?: No VTE Risk Level:: Medical - low VTE Device Contraindication: N/A - Device Ordered VTE Drug Contraindication: Treatment Not Indicated
[2021-11-02] MEDS: methylPREDNISolone Sod Succ 1,000 MG in 0.9 % Sodium Chloride 50 ML 66 MG IV (12:25)
[2021-11-02 16:00] VITALS: BP 125/74; PULSE 85; RESP 18; TEMP 36.7; O2SAT 99
[2021-11-02 19:44] VITALS: BP 127/60; PULSE 85; RESP 18; TEMP 37.1; O2SAT 97
[2021-11-03] VITALS (7 sets, daily range): BP systolic 112–141; BP diastolic 67–77; PULSE 69–81; RESP 18–20; TEMP 36.1–37; O2SAT 96–100
[2021-11-03] MEDS: 0.9 % Sodium Chloride Flush 3 ML SYRINGE IVFLUSH ×4 (03:57→21:46)
[2021-11-03] MEDS: Baclofen 10 MG TABLET PO ×3 (09:11→21:46)
[2021-11-03] MEDS: Docusate Sodium 100 MG CAPSULE PO ×2 (09:11→21:46)
[2021-11-03] MEDS: Cholecalciferol (Vitamin D3) 25 MCG TABLET 50 MCG PO (09:11)
[2021-11-03] MEDS: methylPREDNISolone Sod Succ 1,000 MG in 0.9 % Sodium Chloride 50 ML 66 MG IV (10:28)
--- NOTE | 2021-11-03 11:04 | P.PNIM_ITS ---
Subjective Subjective Date of Service: 11/03/21 Review of Systems Follow up MS flare some numbness to let side of face feels slightly better today Physical Exam Verdana 4l Vital Signs: Verdana 4d Verdana 4d Vital Signs: Verdana 4d Verdana 4Bd Last Vital Signs Verdana 4d Title Investigator New 4d Title Investigator New 4d Temp 97.7 F 11/03/21 08:00 Title Investigator New 4d Pulse 76 11/03/21 08:00 Title Investigator NewNew 4d Resp 20 11/03/21 08:00 BP 120/70 11/03/21 08:00 Pulse Ox 99 11/03/21 08:00 BMI result Body Mass Index 21.9 Appearing in no acute distress lung sounds are clear to auscultation heart regular rate rhythm, clear S1, S2 positive bowel sounds, abdomen is soft, nontender neuro patient is alert x3, no focal deficits Objective Data Active Medications Baclofen (Baclofen 10 Mg Tablet) 10 mg PO TID [facility] Last Admin: 11/03/21 09:11 Dose: 10 mg Documented by: JORGE Docusate Sodium (Docusate Sodium 100 Mg Capsule) 100 mg PO BID [facility] Last Admin: 11/03/21 09:11 Dose: 100 mg Documented by: JORGE Methylprednisolone Sodium Succinate 1,000 mg/ Sodium Chloride 66 mls @ 66 mls/hr IV DAILY [facility] Stop: 11/05/21 09:59 Last Admin: 11/03/21 10:28 Dose: 66 mls/hr Documented by: JORGE Melatonin (Melatonin 3 Mg Tablet) 6 mg PO BEDTIME PRN PRN Reason: Insomnia Last Admin: 11/01/21 21:16 Dose: 6 mg Documented by: CORDELL Patient Own Medication (Dimethyl Fumarate 240 Mg) 240 each PO BID [facility] Last Admin: 11/03/21 09:25 Dose: 240 each Documented by: JORGE Senna (Sennosides 8.6 Mg Tablet) 17.2 mg PO BEDTIME PRN PRN Reason: Constipation Sodium Chloride (0.9 % Sodium Chloride Flush 3 Ml Syringe) 3 ml IVFLUSH QSHIFT [facility] Last Admin: 11/03/21 09:12 Dose: 3 ml Documented by: JORGE Vitamin D (Cholecalciferol (Vitamin D3) 25 Mcg Tablet) 50 mcg PO DAILY [facility] Last Admin: 11/03/21 09:11 Dose: 50 mcg Documented by: JORGE Labs CBC & Chem 7: 11/01/21 05:49 11/01/21 05:49 Assessment and Plan (1) Multiple sclerosis exacerbation: Status: Acute Assessment and Plan: This is a 36-year-old male with a past medical history of multiple sclerosis presented to the hospital with a chief complaint of left facial droop for the past 5 days.? Concern for MS flare.? Admitted for further management.? Multiple sclerosis flare Continue Solu-Medrol 1000 mg IV daily for 5 days aspiration precautions seen by Neurology, agree with steroids MRI seems c/w MS continue home baclofen, dimethyl fumarate Continue home medications.? Patient reports that he has stopped taking gabapentin as it is causing GI upset.? DVT prophylaxis:? SCD boots Code status:? Full code attending Dr. Grimm Quality Stroke Does the patient have a stroke diagnosis?: No VTE Prior VTE?: No VTE Risk Level:: Medical - low VTE Device Contraindication: N/A - Device Ordered VTE Drug Contraindication: Treatment Not Indicated
[2021-11-04 03:06] VITALS: BP 124/69; PULSE 73; RESP 20; TEMP 37; O2SAT 96
[2021-11-04 07:46] VITALS: BP 116/72; PULSE 76; RESP 20; TEMP 36.5; O2SAT 100
[2021-11-04] MEDS: methylPREDNISolone Sod Succ 1,000 MG in 0.9 % Sodium Chloride 50 ML 66 MG IV (09:48)
[2021-11-04] MEDS: Docusate Sodium 100 MG CAPSULE PO ×2 (09:48→21:47)
[2021-11-04] MEDS: Baclofen 10 MG TABLET PO ×3 (09:48→21:47)
[2021-11-04] MEDS: 0.9 % Sodium Chloride Flush 3 ML SYRINGE IVFLUSH ×2 (09:48→16:42)
[2021-11-04] MEDS: Cholecalciferol (Vitamin D3) 25 MCG TABLET 50 MCG PO (09:48)
--- NOTE | 2021-11-04 09:52 | HO.PM.IMPN ---
Subjective Subjective Date of Service: 11/04/21 Review of Systems Follow up MS flare some numbness to left side of face is better today ambulating in room Physical Exam Vital Signs: Vital Signs: Last Vital Signs Temp 97.7 F 11/04/21 07:46 Pulse 76 11/04/21 07:46 Resp 20 11/04/21 07:46 BP 116/72 11/04/21 07:46 Pulse Ox 100 11/04/21 07:46 BMI result Body Mass Index 21.9 Appearing in no acute distress lung sounds are clear to auscultation heart regular rate rhythm, clear S1, S2 positive bowel sounds, abdomen is soft, nontender neuro patient is alert x3, no focal deficits Objective Data Active Medications Baclofen (Baclofen 10 Mg Tablet) 10 mg PO TID [facility] Last Admin: 11/04/21 09:48 Dose: 10 mg Documented by: ADDIE Docusate Sodium (Docusate Sodium 100 Mg Capsule) 100 mg PO BID [facility] Last Admin: 11/04/21 09:48 Dose: 100 mg Documented by: ADDIE Methylprednisolone Sodium Succinate 1,000 mg/ Sodium Chloride 66 mls @ 66 mls/hr IV DAILY [facility] Stop: 11/05/21 09:59 Last Admin: 11/04/21 09:48 Dose: 66 mls/hr Documented by: ADDIE Melatonin (Melatonin 3 Mg Tablet) 6 mg PO BEDTIME PRN PRN Reason: Insomnia Last Admin: 11/01/21 21:16 Dose: 6 mg Documented by: CORDELL Patient Own Medication (Dimethyl Fumarate 240 Mg) 240 each PO BID [facility] Last Admin: 11/04/21 09:48 Dose: 240 each Documented by: ADDIE Senna (Sennosides 8.6 Mg Tablet) 17.2 mg PO BEDTIME PRN PRN Reason: Constipation Sodium Chloride (0.9 % Sodium Chloride Flush 3 Ml Syringe) 3 ml IVFLUSH QSHIFT [facility] Last Admin: 11/04/21 09:48 Dose: 3 ml Documented by: ADDIE Vitamin D (Cholecalciferol (Vitamin D3) 25 Mcg Tablet) 50 mcg PO DAILY [facility] Last Admin: 11/04/21 09:48 Dose: 50 mcg Documented by: ADDIE Labs CBC & Chem 7: 11/01/21 05:49 11/01/21 05:49 Assessment and Plan (1) Multiple sclerosis exacerbation: Status: Acute Assessment and Plan: This is a 36-year-old male with a past medical history of multiple sclerosis presented to the hospital with a chief complaint of left facial droop for the past 5 days.? Concern for MS flare.? Admitted for further management.? Multiple sclerosis flare Continue Solu-Medrol 1000 mg IV daily for 5 days, last day tomorrow aspiration precautions seen by Neurology, agree with steroids MRI seems c/w MS continue home baclofen, dimethyl fumarate Continue home medications.? Patient reports that he has stopped taking gabapentin as it is causing GI upset.? DISPO home when steroid treatment complete to follow up with neurology DVT prophylaxis:? SCD boots Code status:? Full code attending? Dr. Jaime Quality Stroke Does the patient have a stroke diagnosis?: No VTE Prior VTE?: No VTE Risk Level:: Medical - low VTE Device Contraindication: N/A - Device Ordered VTE Drug Contraindication: Treatment Not Indicated
[2021-11-04 12:00] VITALS: BP 117/72; PULSE 75; RESP 20; TEMP 36.4; O2SAT 99
[2021-11-04 15:38] VITALS: BP 111/69; PULSE 83; RESP 18; TEMP 36.2; O2SAT 99
[2021-11-04 19:35] VITALS: BP 129/62; PULSE 93; RESP 18; TEMP 37.4; O2SAT 99
[2021-11-04 23:51] VITALS: BP 125/66; PULSE 76; RESP 18; TEMP 36.6; O2SAT 98
[2021-11-05] MEDS: 0.9 % Sodium Chloride Flush 3 ML SYRINGE IVFLUSH ×2 (03:51→08:38)
[2021-11-05 04:00] VITALS: BP 138/62; PULSE 80; RESP 19; TEMP 36.7; O2SAT 99
[2021-11-05 08:00] VITALS: BP 120/65; PULSE 67; RESP 20; TEMP 36.5; O2SAT 98
[2021-11-05] MEDS: Cholecalciferol (Vitamin D3) 25 MCG TABLET 50 MCG PO (08:37)
[2021-11-05] MEDS: Docusate Sodium 100 MG CAPSULE PO (08:37)
[2021-11-05] MEDS: Baclofen 10 MG TABLET PO (08:37)
[2021-11-05] MEDS: methylPREDNISolone Sod Succ 1,000 MG in 0.9 % Sodium Chloride 50 ML 66 MG IV (09:41)
--- NOTE | 2021-11-05 09:59 | P.DS_ITS ---
DS: Providers Provider Date of Service: 11/05/21 Date of admission: 10/31/21 19:54 Primary care physician: [facility] Consults: 10/31/21 19:55 Consult to Neurology Routine Consulting Provider: Keya Huber Reason for consultation: MS flare Attending physician on discharge: Graeme Pope Discharging clinician: Amrita Ardon DS: Diagnosis Discharge Diagnosis (1) Multiple sclerosis exacerbation: Status: Acute DS: Summary Hospital Course Hospital Course: 36 year old man admitted with MS exacerbation. Multiple sclerosis flare IV Continue Solu-Medrol 1000 mg IV daily for 5 days. Completed course seen by Neurology, agreed with steroids, may follow up outpatient MRI seems c/w MS continue home baclofen, dimethyl fumarate Time Spent with Patient Time attestation: Total time spent providing and/or coordinating discharge services: Discharge coordination time: Greater than 30 minutes Quality: Stroke Does the patient have a stroke diagnosis?: No Physical Exam Vital Signs: Vital Signs: Last Vital Signs Temp 97.7 F 11/05/21 08:00 Pulse 67 11/05/21 08:00 Resp 20 11/05/21 08:00 BP 120/65 11/05/21 08:00 Pulse Ox 98 11/05/21 08:00 BMI result Body Mass Index 21.9 Appearing in no acute distress head is normocephalic atraumatic eyes pupils are PERRLA sclera is anicteric mouth throat mucous membranes are intact and moist neck is supple no lymphadenopathy, no JVD noted lung sounds are clear to auscultation heart regular rate rhythm, clear S1, S2 positive bowel sounds, abdomen is soft, nontender neuro patient is alert x3, no focal deficits Discharge Plan Discharge Anticipated Discharge Date/Time: 11/05/21 09:55 Patient Disposition: Home Health Service Discharge Diagnosis: MS exacerbation Referrals: [facility] [Other] - 1 Week [place] [Primary Care Provider] - 1 Week Keya Huber MD [Physician] - 1 Week (Follow up for provider appointment ) Discharge Medications: Continued cholecalciferol (vitamin D3) 50 mcg (2,000 unit) capsule 1 cap PO DAILY RF: 0 dimethyl fumarate 240 mg capsule,delayed release(DR/EC) 240 mg PO BID RF: 0 baclofen 10 mg tablet 1 tab PO TID RF: 0 docusate sodium 100 mg capsule 1 cap PO BID RF: 0 gabapentin 300 mg capsule 1 cap PO DAILY RF: 0 Discharge Orders: Discharge Order (Routine); Ordered 11/05/21 Ordered By: Amrita Ardon Diet: advance to usual diet Activity on Discharge: As tolerated Stand Alone Forms: Patient Portal Discharge page Care Plan Goals: Resolution of exacerbation symptoms Health Concerns: MS exacerbation Plan of Treatment: Follow up with your primary care provider as needed Call Neurology to schedule an appointment for follow up Assessment: See discharge summary
--- NOTE | 2021-11-05 10:12 | MHC.CM.PN ---
PATIENT IS DISCHARGED HOME WITH [facility]UMPTION OF HIS [employer] [facility]. HIS NIECE WILL PROVIDE TRANSPORT HOME. RN AWARE OF PLAN. IMM 11/04 IN CHART
[2021-11-05 12:00] VITALS: BP 126/70; PULSE 90; RESP 20; TEMP 36.6; O2SAT 99
--- NOTE | 2021-11-05 19:34 | PC.NURSE ---
Pt forgot home medications at discharge. Phone call placed to pt, he states he will have someone pick them up today. Meds have not been picked up. Pharmacy notified. technical account executive will take medication and store it in pharmacy safe until pt able to rock picker medication.
== END 2021-11-05 13:35 | disposition home health service (06) | DRG 60 ==
LOC: HO.ED 19:25 → HO.EDOVER 20:24 → HO.S3 11-02 07:28
PROVIDERS: Admitting Provider Hospitalist; Emergency Provider Emergency Medicine Emergency Medical Services; Visit Provider Nurse Practitioner Acute Care
DX: G35 Multiple sclerosis (principal); Z20.822 Contact with and (suspected) exposure to COVID-19; Z87.891 Personal history of nicotine dependence; Z79.899 Other long term (current) drug therapy
CPT/HCPCS: 36415; 70553; 80048; 80053; 80061; 82550; 83690; 85025; 85027; 85652; 86140; 87635; 96365; 96375; 99285; A9585; J2930

== ENCOUNTER 2021-11-15 12:08 | Outpatient (REF) | payer OTHER, SELFPAY | END 2021-11-15 12:09 | disposition home or self-care (01) | LOC: HO.LAB 12:08 | PROVIDERS: PCP Registered Nurse Community Health; Visit Provider Psychiatry & Neurology Neurology | DX: Z13.89 Encounter for screening for other disorder (principal) ==

== ENCOUNTER 2022-01-20 19:35 | Inpatient (IN) | payer OTHER, SELFPAY ==
--- NOTE | ~2022-01-20 | MR_ITS ---
MR CERVICAL SPINE WITH AND WITHOUT CONTRAST MR THORACIC SPINE WITH AND WITHOUT CONTRAST CLINICAL INFORMATION: Demyelinating disease/NMO. COMPARISON: Brain MRI 11/01/2021. TECHNIQUE: Multiplanar multisequence MR imaging of the cervical and thoracic spine obtained without and following the administration of 7.5 mL of Gadavist intravenous contrast without complication. FINDINGS: Partially imaged new multifocal nodular enhancement within the left cerebellar hemisphere and left middle cerebellar peduncle associated with confluent T2 signal changes for which a MRI of the brain would be helpful in further assessment. There is significant cervicothoracic cord atrophy. There are no enhancing lesions within the spinal cord. Nondiagnostic assessment for nonenhancing lesions given the degree of motion artifact. Spinal alignment is maintained. No bone marrow edema. No acute fractures. Craniocervical junction is unremarkable. No significant spinal disc herniations. No severe central canal stenosis and no severe foraminal stenosis within the cervical nor the thoracic spine. No significant extraspinal soft tissue findings. There is a 1 cm enhancing focus within the posterior aspect of the T4 vertebral body, possibly an intraosseous hemangioma. MR/MR thoracic spine wo/w con IMPRESSION: - Partially imaged new multifocal nodular enhancement within the left cerebellar hemisphere and left middle cerebellar peduncle associated with confluent T2 signal changes for which a MRI of the brain would be helpful in further assessment. Additional lesional burden throughout the brainstem, and middle cerebellar peduncles is better demonstrated on the previous brain MRI. - There is significant cervicothoracic cord atrophy. There are no enhancing lesions within the spinal cord. Nondiagnostic assessment for nonenhancing lesions given the degree of motion artifact. - There is a 1 cm enhancing focus within the posterior aspect of the T4 vertebral body, possibly an intraosseous hemangioma. Findings discussed with Dr. Alatorre at 8:30 AM on 01/22/2022.
--- NOTE | ~2022-01-20 | MR_ITS ---
MR CERVICAL SPINE WITH AND WITHOUT CONTRAST MR THORACIC SPINE WITH AND WITHOUT CONTRAST CLINICAL INFORMATION: Demyelinating disease/NMO. COMPARISON: Brain MRI 11/01/2021. TECHNIQUE: Multiplanar multisequence MR imaging of the cervical and thoracic spine obtained without and following the administration of 7.5 mL of Gadavist intravenous contrast without complication. FINDINGS: Partially imaged new multifocal nodular enhancement within the left cerebellar hemisphere and left middle cerebellar peduncle associated with confluent T2 signal changes for which a MRI of the brain would be helpful in further assessment. There is significant cervicothoracic cord atrophy. There are no enhancing lesions within the spinal cord. Nondiagnostic assessment for nonenhancing lesions given the degree of motion artifact. Spinal alignment is maintained. No bone marrow edema. No acute fractures. Craniocervical junction is unremarkable. No significant spinal disc herniations. No severe central canal stenosis and no severe foraminal stenosis within the cervical nor the thoracic spine. No significant extraspinal soft tissue findings. There is a 1 cm enhancing focus within the posterior aspect of the T4 vertebral body, possibly an intraosseous hemangioma. MR/MR cervical spine wo/w con IMPRESSION: - Partially imaged new multifocal nodular enhancement within the left cerebellar hemisphere and left middle cerebellar peduncle associated with confluent T2 signal changes for which a MRI of the brain would be helpful in further assessment. Additional lesional burden throughout the brainstem, and middle cerebellar peduncles is better demonstrated on the previous brain MRI. - There is significant cervicothoracic cord atrophy. There are no enhancing lesions within the spinal cord. Nondiagnostic assessment for nonenhancing lesions given the degree of motion artifact. - There is a 1 cm enhancing focus within the posterior aspect of the T4 vertebral body, possibly an intraosseous hemangioma. Findings discussed with Dr. Alatorre at 8:30 AM on 01/22/2022.
[2022-01-20 19:42] VITALS: BP 130/83; PULSE 66; RESP 18; O2SAT 100; BMI 25.8
--- NOTE | 2022-01-20 19:42 | ED.NEUROSD ---
HPI - Neuro Symptoms/Deficit General Chief Complaint: General Medical Stated Complaint: ms flare up Time Seen by Provider: 01/20/22 19:41 Source: patient Mode of arrival: EMS Limitations: no limitations History of Present Illness HPI Narrative: Patient history of multiple sclerosis diagnosed about 8 years ago taking Tecfidera for last few years was seen here in 10/02 and 11/03 for MS flare-up treated with 1000 mg Solu-Medrol for 5 days comes here with similar weakness and difficulty in walking for last 3 days patient feels unsteady on his feet usually walks with walker now for last 3 days had very difficulty in walking with walker no fever no chills no cold symptoms Related Data Home Medications Medication Instructions Recorded Confirmed cholecalciferol (vitamin D3) 50 1 cap PO DAILY 09/18/21 01/20/22 mcg (2,000 unit) capsule dimethyl fumarate 240 mg 240 mg PO BID 09/18/21 01/20/22 capsule,delayed release baclofen 10 mg tablet 1 tab PO TID 10/31/21 01/20/22 Allergies Allergy/AdvReac Type Severity Reaction Status Date / Time No Known Allergies Allergy Verified 11/02/21 10:32 [No Known Allergies*] Review of Systems Review of Systems: Yes all other systems are reviewed and are negative PMFSH Past Medical History Medical History Headache Microcytic anemia Multiple sclerosis Surgical History H/O hernia repair Social History Social History Household Members: Family Housing: Apartment 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 have visiting nurse or other home services: Yes (PT, OT, visiting nurse at home) Patient Tobacco Use Status: Former Tobacco user Tobacco use type: Cigarette Substance Use Type: Marijuana Advance Directives: No Advance Directives Information Provided: No service: No Current occupational status: disabled Physical Exam Vital Signs: Vital Signs: Last Vital Signs Pulse 66 01/20/22 19:42 Resp 18 01/20/22 19:42 BP 130/83 01/20/22 19:42 Pulse Ox 100 01/20/22 19:42 BMI result Body Mass Index 25.8 Appearance: Alert. Oriented X3. No acute distress. Eyes: Legally blind left eye ENT: Pharynx normal. Oral Mucosa moist Neck: Normal inspection. Neck supple. CVS: Normal heart rate and rhythm. Pulses normal. Respiratory: No respiratory distress. Equal air entry bilateral, no wheezing/rales/rhonchi Abdomen: Soft and nontender. Bowel sounds are present, no mass palpable, Skin: Skin warm and dry. Normal skin color. Normal skin turgor. Extremities: No lower extremity edema. No calf tenderness Neuro: Oriented X 3. Ataxia in both upper extremities and lower extremities slow to speak MDM - Neuro Symptoms/Deficit MDM Narrative Medical decision making narrative: Patient with history of MS with frequent flare-ups on Tecfidera. Last flare-up was in 11/03 treated with IV steroid will give him 1000 mg Solu-Medrol in the ER and plan to admit for neuro evaluation as this is the 3rd episode within 4 months patient came to the hospital for flare-up Lab Data Attestation: I reviewed the patient's lab results. Result diagrams: 01/20/22 20:20 01/20/22 20:43 Labs: Lab Results 01/20/22 01/20/22 01/20/22 Range/Units 20:20 20:20 20:43 WBC 8.7 (4.8-10.8) X10*3/uL RBC 5.27 (4.60-5.80) X10*6/uL Hgb 13.5 L (14.0-18.0) g/dl Hct 41.3 L (42.0-52.0) % MCV 78.4 L (80.0-98.0) fL MCH 25.6 L (27.0-33.0) pg MCHC 32.7 (31.0-36.0) g/dl RDW 13.4 (11.0-16.0) % Plt Count 225 (160-400) X10*3/uL MPV 12.5 H (9.4-12.4) fL Immature Gran % (Auto) 0.9 H (0.0-0.4) % Neut % (Auto) 70.3 (45-73) % Lymph % (Auto) 12.4 L (20-40) % [place] % (Auto) 14.9 H (2-11) % Eos % (Auto) 1.2 (0-4) % Baso % (Auto) 0.3 (0-2) % Lymph # (Auto) 1.1 L (1.2-4.9) X10*3/uL [place] # (Auto) 1.3 H (0.1-1.2) X10*3/uL Eos # (Auto) 0.1 (0.0-0.4) X10*3/uL Baso # (Auto) 0.0 (0.0-0.2) X10*3/uL Abs Immat Gran (auto) 0.08 H (0.00-0.03) X10*3/uL Absolute Neuts (auto) 6.1 (2.0-8.3) x10*3/uL Absolute Nucleated RBC 0.000 (0.0-0.012) X10*3/uL Nucleated RBC % (auto) 0.0 (0.0-0.2) /100WBC ESR Sodium 140 (135-145) mmol/L Potassium 5.3 H D (3.3-5.1) mmol/L Chloride 103 (96-108) mmol/L Carbon Dioxide 27 (22-29) mmol/L Anion Gap 15 (12-20) BUN 17 H D (9-16) mg/dL Creatinine 0.71 (0.5-1.4) mg/dL Estim Creat Clear Calc 137.8 Estimated GFR > 60 Random Glucose 77 D (60-115) mg/dL Calcium 9.5 D (8.4-10.2) mg/dL Magnesium 2.6 (1.6-2.6) mg/dL Total Bilirubin 0.3 (0.0-1.0) mg/dL AST 19 D (5-37) U/L ALT 19 (0-40) U/L Alkaline Phosphatase 59 (39-117) U/L C-Reactive Protein 0.28 (< or = 0.50) mg/dL Total Protein 7.8 (6.5-8.0) g/dL Albumin 4.6 (3.5-5.0) g/dL COVID-19 ([facility]) Negative (Negative) COVID-19 Clin Com See Note 01/20/22 Range/Units 21:04 WBC (4.8-10.8) X10*3/uL RBC (4.60-5.80) X10*6/uL Hgb (14.0-18.0) g/dl Hct (42.0-52.0) % MCV (80.0-98.0) fL MCH (27.0-33.0) pg MCHC (31.0-36.0) g/dl RDW (11.0-16.0) % Plt Count (160-400) X10*3/uL MPV (9.4-12.4) fL Immature Gran % (Auto) (0.0-0.4) % Neut % (Auto) (45-73) % Lymph % (Auto) (20-40) % [place] % (Auto) (2-11) % Eos % (Auto) (0-4) % Baso % (Auto) (0-2) % Lymph # (Auto) (1.2-4.9) X10*3/uL [place] # (Auto) (0.1-1.2) X10*3/uL Eos # (Auto) (0.0-0.4) X10*3/uL Baso # (Auto) (0.0-0.2) X10*3/uL Abs Immat Gran (auto) (0.00-0.03) X10*3/uL Absolute Neuts (auto) (2.0-8.3) x10*3/uL Absolute Nucleated RBC (0.0-0.012) X10*3/uL Nucleated RBC % (auto) (0.0-0.2) /100WBC ESR Cancelled Sodium (135-145) mmol/L Potassium (3.3-5.1) mmol/L Chloride (96-108) mmol/L Carbon Dioxide (22-29) mmol/L Anion Gap (12-20) BUN (9-16) mg/dL Creatinine (0.5-1.4) mg/dL Estim Creat Clear Calc Estimated GFR Random Glucose (60-115) mg/dL Calcium (8.4-10.2) mg/dL Magnesium (1.6-2.6) mg/dL Total Bilirubin (0.0-1.0) mg/dL AST (5-37) U/L ALT (0-40) U/L Alkaline Phosphatase (39-117) U/L C-Reactive Protein (< or = 0.50) mg/dL Total Protein (6.5-8.0) g/dL Albumin (3.5-5.0) g/dL COVID-19 ([facility]) (Negative) COVID-19 Clin Com Discharge Plan Discharge Clinical Impression: Multiple sclerosis exacerbation Patient Disposition: Admitted As Inpatient
[2022-01-20 20:25] LABS: MANUAL DIFF FLAG NO
[2022-01-20] MEDS: methylPREDNISolone Sod Succ 1,000 MG in 0.9 % Sodium Chloride 50 ML 66 MG IV (20:29)
[2022-01-20 20:34] LABS: Basophils Percent Auto 0.3 % (0-2); Eosinophils Absolute Auto 0.1 X10*3/uL (0.0-0.4); Eosinophils Percent Auto 1.2 % (0-4); Hematocrit 41.3 % (42.0-52.0); Hemoglobin 13.5 g/dl (14.0-18.0); Imm Gran Abs Auto 0.08 X10*3/uL (0.00-0.03); Imm Gran Pct Auto 0.9 % (0.0-0.4); Lymphocytes Absolute Auto 1.1 X10*3/uL (1.2-4.9); Lymphocytes Percent Auto 12.4 % (20-40); Mean Corpuscular HGB Conc 32.7 g/dl (31.0-36.0); Mean Corpuscular Hemoglobin 25.6 pg (27.0-33.0); Mean Corpuscular Volume 78.4 fL (80.0-98.0); Mean Platelet Volume 12.5 fL (9.4-12.4); Monocytes Absolute Auto 1.3 X10*3/uL (0.1-1.2); Monocytes Percent Auto 14.9 % (2-11); Neutrophils Absolute Auto 6.1 x10*3/uL (2.0-8.3); Neutrophils Percent Auto 70.3 % (45-73); Platelet Count 225 X10*3/uL (160-400); Red Blood Count 5.27 X10*6/uL (4.60-5.80); Red Cell Distribution Width 13.4 % (11.0-16.0); White Blood Count 8.7 X10*3/uL (4.8-10.8)
[2022-01-20 20:42] LABS: COVID-19 Test Negative (Negative)
[2022-01-20 21:04] LABS: Alanine Aminotransferase 19 U/L (0-40); Albumin Level 4.6 g/dL (3.5-5.0); Alkaline Phosphatase 59 U/L (39-117); Anion Gap 15 (12-20); Aspartate Amino Transferase 19 U/L (5-37); Bilirubin Total 0.3 mg/dL (0.0-1.0); Blood Urea Nitrogen 17 mg/dL (9-16); C Reactive Protein 0.28 mg/dL (< or = 0.50); Calcium 9.5 mg/dL (8.4-10.2); Carbon Dioxide 27 mmol/L (22-29); Chloride 103 mmol/L (96-108); Creatinine Clr Calc Pharmacy 137.8; Estimated Glomerular Filt Rate > 60; Glucose Random 77 mg/dL (60-115); Magnesium 2.6 mg/dL (1.6-2.6); Potassium 5.3 mmol/L (3.3-5.1); Sodium 140 mmol/L (135-145); Total Protein 7.8 g/dL (6.5-8.0)
--- NOTE | 2022-01-20 21:35 | PHA.MEDREC ---
Pharmacy Consult ? Medication Reconciliation Pharmacy has completed the medication reconciliation.
--- NOTE | 2022-01-20 21:39 | ECG_ITS ---
Test Reason : weakness Blood Pressure : / mmHG Vent. Rate : 071 BPM Atrial Rate : 071 BPM P-R Int : 158 ms QRS Dur : 086 ms QT Int : 384 ms P-R-T Axes : -05 040 066 degrees QTc Int : 417 ms Normal sinus rhythm Normal ECG No previous ECGs available Referred By: Tez Flores Electronically Signed By:Jim Wong
[2022-01-21] VITALS (7 sets, daily range): BP systolic 111–129; BP diastolic 62–75; PULSE 74–98; RESP 14–19; TEMP 36.6–37.2; O2SAT 96–99
--- NOTE | 2022-01-21 02:17 | PM.IMHP ---
History of Present Illness Date of Service: 01/20/22 Chief Complaint: slurred speech, weakness 36-year-old male with past medical history of MS who presents to the hospital with complaints of 4 day history of weakness in his legs as well as heavy speech and difficulty speaking. Patient reports that he has been compliant with his medications but gets flares every so often most recently in October. Patient reports chronic loss of vision in his left eye which has not changed reports weakness in his lower extremity, not so much in his upper extremity, he is also complaining of nystagmus. He has had difficulty with speaking, he reports that he has had difficulty with slurred speech, feels that his tongue is heavy and slow speech which was similar to previous presentation. He otherwise denies any chest pain, no headache, no shortness of breath, no abdominal pain nausea or vomiting, no diarrhea or constipation, no urinary symptoms and no lower extremity edema. On arrival to the ED patient hemodynamically stable with no significant abnormal vitals, labs unremarkable Review of Systems Review of Systems: Yes all other systems are reviewed and are negative [facility] Medical History Headache Microcytic anemia Multiple sclerosis Family History (Updated 01/21/22 @ 06:58 by Nikos Baltazar MD) Other No family history of coronary artery disease Surgical History H/O hernia repair Social History Household Members: Family Housing: Apartment 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 have visiting nurse or other home services: Yes (PT, OT, visiting nurse at home) Patient Tobacco Use Status: Former Tobacco user Tobacco use type: Cigarette Substance Use Type: Marijuana Advance Directives: No Advance Directives Information Provided: No service: No Current occupational status: disabled Meds Allergies Allergy/AdvReac Type Severity Reaction Status Date / Time No Known Allergies Allergy Verified 11/02/21 10:32 [No Known Allergies*] Active Medications: Current Medications Pharmacy Consult (Consult Rx Perform Med Rec) 1 each MISCELLANE ONCE PRN PRN Reason: Consult order Home Medications Medication Instructions Recorded Confirmed Last Taken Type cholecalciferol (vitamin D3) 50 1 cap PO DAILY 09/18/21 01/20/22 01/20/22 History mcg (2,000 unit) capsule dimethyl fumarate 240 mg 240 mg PO BID 09/18/21 01/20/22 01/20/22 History capsule,delayed release baclofen 10 mg tablet 1 tab PO TID 10/31/21 01/20/22 01/20/22 History Physical Exam Vital Signs and Narrative: Vital Signs: Last Vital Signs Temp 98.4 F 01/21/22 00:00 Pulse 74 01/21/22 00:00 Resp 18 01/21/22 00:00 BP 125/62 01/21/22 00:00 Pulse Ox 96 01/21/22 00:00 BMI result Body Mass Index 25.8 Const: General: cooperative and no acute distress Orientation/consciousness: patient oriented x3 Resp: Effort & Inspection: normal respiratory effort Auscultation: clear to auscultation bilaterally Cardio: Rate: regular rate Rhythm: regular rhythm GI: Palpation (GI): Soft to palpation Auscultation: normal bowel sounds Skin: General skin exam: no rashes or lesions noted Neuro: Other: slurred, slow speech, has next diagnosis to the right, has blurry vision on the left eye, right-sided intranuclear ophthalmoplegia 3/5 strength in lower extremities bilaterally 5/5 in upper extremity General: patient oriented x3 Extrem: General: Yes normal to inspection and Yes no pedal edema Results Labs CBC and Chem 7: 01/20/22 20:20 01/20/22 20:43 Labs: Laboratory Results - last 24 hr 01/20/22 01/20/22 01/20/22 20:20 20:20 20:43 MCV 78.4 L MCH 25.6 L MCHC 32.7 RDW 13.4 Plt Count 225 MPV 12.5 H Immature Gran % (Auto) 0.9 H Neut % (Auto) 70.3 Lymph % (Auto) 12.4 L [place] % (Auto) 14.9 H Eos % (Auto) 1.2 Baso % (Auto) 0.3 Lymph # (Auto) 1.1 L [place] # (Auto) 1.3 H Eos # (Auto) 0.1 Baso # (Auto) 0.0 Abs Immat Gran (auto) 0.08 H Absolute Neuts (auto) 6.1 Absolute Nucleated RBC 0.000 Nucleated RBC % (auto) 0.0 ESR Anion Gap 15 Estim Creat Clear Calc 137.8 Estimated GFR > 60 Random Glucose 77 D Calcium 9.5 D Magnesium 2.6 Total Bilirubin 0.3 AST 19 D ALT 19 Alkaline Phosphatase 59 C-Reactive Protein 0.28 Total Protein 7.8 Albumin 4.6 COVID-19 ([facility]) Negative COVID-19 Clin Com See Note 01/20/22 21:04 MCV MCH MCHC RDW Plt Count MPV Immature Gran % (Auto) Neut % (Auto) Lymph % (Auto) [place] % (Auto) Eos % (Auto) Baso % (Auto) Lymph # (Auto) [place] # (Auto) Eos # (Auto) Baso # (Auto) Abs Immat Gran (auto) Absolute Neuts (auto) Absolute Nucleated RBC Nucleated RBC % (auto) ESR Cancelled Anion Gap Estim Creat Clear Calc Estimated GFR Random Glucose Calcium Magnesium Total Bilirubin AST ALT Alkaline Phosphatase C-Reactive Protein Total Protein Albumin COVID-19 ([facility]) COVID-19 Clin Com Assessment and Plan (1) Multiple sclerosis exacerbation: Status: Acute Plan 36-year-old male with past medical history of MS presents to the hospital with MS exacerbation # MS exacerbation - finding of neurological exam as above - will treat with 1g of solu-medrol daily - neurology consulted - will hold MRI pending neurology recommendation DVT prophylaxis: Lovenox Quality Stroke Does the patient have a stroke diagnosis?: No VTE Prior VTE?: No VTE Risk Level:: Medical - moderate - high VTE Device Contraindication: Treatment Not Indicated VTE Drug Contraindication: N/A - Med Ordered
[2022-01-21] MEDS: Enoxaparin Sodium 40 MG/0.4 ML SYRINGE SUBCUT (03:41)
--- NOTE | 2022-01-21 05:32 | PC.NURSE ---
Patient transferred to overflow bed 11. Patient is alert and oriented, speech slow, denies pain or discomfort at this time, vss. Abrasions noted to left knee, right lower leg, and upper abdomen, xeroform with tegaderm applied. Call villar within reach, urinal at bedside.
[2022-01-21 07:27] LABS: Basophils Percent Auto 0.1 % (0-2); Hematocrit 42.1 % (42.0-52.0); Hemoglobin 13.5 g/dl (14.0-18.0); Imm Gran Abs Auto 0.03 X10*3/uL (0.00-0.03); Imm Gran Pct Auto 0.3 % (0.0-0.4); Lymphocytes Absolute Auto 0.4 X10*3/uL (1.2-4.9); Lymphocytes Percent Auto 3.6 % (20-40); MANUAL DIFF FLAG SCAN; Mean Corpuscular HGB Conc 32.1 g/dl (31.0-36.0); Mean Corpuscular Hemoglobin 25.3 pg (27.0-33.0); Mean Corpuscular Volume 78.8 fL (80.0-98.0); Mean Platelet Volume 12.3 fL (9.4-12.4); Monocytes Absolute Auto 0.1 X10*3/uL (0.1-1.2); Platelet Count 227 X10*3/uL (160-400); Red Blood Count 5.34 X10*6/uL (4.60-5.80); Red Cell Distribution Width 13.6 % (11.0-16.0); SCAN SMEAR FLAG 1; White Blood Count 10.5 X10*3/uL (4.8-10.8)
[2022-01-21 07:46] LABS: SLIDE REVIEW VERIFIED
[2022-01-21 07:57] LABS: Anion Gap 15 (12-20); Blood Urea Nitrogen 14 mg/dL (9-16); Calcium 9.6 mg/dL (8.4-10.2); Carbon Dioxide 25 mmol/L (22-29); Chloride 104 mmol/L (96-108); Creatinine Clr Calc Pharmacy 143.8; Estimated Glomerular Filt Rate > 60; Glucose Random 157 mg/dL (60-115); Potassium 3.9 mmol/L (3.3-5.1); Sodium 139 mmol/L (135-145)
[2022-01-21] MEDS: methylPREDNISolone Sod Succ 1,000 MG in 0.9 % Sodium Chloride 50 ML 66 MG IV (10:32)
--- NOTE | 2022-01-21 10:33 | PM.NEUROCN ---
History of Present Illness Data of Consult Service Date: 01/21/22 Primary Care Provider: Unknown Physician HPI Reason for consult: MS exacerbation 36 years old man who I have seen couple of times in hospital and 1 time in my office. Usually he was seeing Dr. Perera at [facility]. He has switched his care to my office recently he was given diagnosis of multiple sclerosis in 2016 and was started on Tecfidera. He said that the initially when he was diagnosed he had problem with his left eye vision, probably suggestive of optic neuritis. 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 Considering that, I checked his NMO titer, which was negative. He was back in hospital stating that his legs were numb and he was having difficulty walking. There was no recent cold or flu-like illness. There was no recent eye symptom. Review of Systems Review of Systems: No recent cold or flu-like symptoms PMFSH Past Medical History Medical History Headache Microcytic anemia Multiple sclerosis Family History Family History (Updated 01/21/22 @ 06:58 by Nikos Baltazar MD) Other No family history of coronary artery disease Surgical History Surgical History H/O hernia repair Social History Social History Household Members: Family Housing: Apartment 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 have visiting nurse or other home services: Yes (PT, OT, visiting nurse at home) Patient Tobacco Use Status: Former Tobacco user Tobacco use type: Cigarette Substance Use Type: Marijuana Advance Directives: No Advance Directives Information Provided: No service: No Current occupational status: disabled Meds Allergies Allergy/AdvReac Type Severity Reaction Status Date / Time No Known Allergies Allergy Verified 11/02/21 10:32 [No Known Allergies*] Active Medications: Current Medications Acetaminophen (Acetaminophen 325 Mg Tablet) 650 mg PO Q6H PRN PRN Reason: Pain, Mild (Pain Scale 1-3) Enoxaparin Sodium (Enoxaparin Sodium 40 Mg/0.4 Ml Syringe) 40 mg SUBCUT Q24H LALO Last Admin: 01/21/22 03:41 Dose: 40 mg Documented by: Methylprednisolone Sodium Succinate 1,000 mg/ Sodium Chloride 66 mls @ 66 mls/hr IV DAILY [facility] Stop: 01/24/22 09:59 Last Admin: 01/21/22 10:32 Dose: 66 mls/hr Documented by: Ondansetron HCl (Ondansetron Hcl 4 Mg/2 Ml Vial) 4 mg IVPUSH Q8H PRN PRN Reason: Nausea and Vomiting Pharmacy Consult (Consult Rx Perform Med Rec) 1 each MISCELLANE ONCE PRN PRN Reason: Consult order Sodium Chloride (0.9 % Sodium Chloride Flush 3 Ml Syringe) 3 ml IVFLUSH QSHIFT [facility] Last Admin: 01/21/22 09:09 Dose: Not Given Documented by: Home Medications Medication Instructions Recorded Confirmed Last Taken Type cholecalciferol (vitamin D3) 50 1 cap PO DAILY 09/18/21 01/20/22 01/20/22 History mcg (2,000 unit) capsule dimethyl fumarate 240 mg 240 mg PO BID 09/18/21 01/20/22 01/20/22 History capsule,delayed release baclofen 10 mg tablet 1 tab PO TID 10/31/21 01/20/22 01/20/22 History Physical Exam Vital Signs: Vital Signs: Last Vital Signs Temp 97.8 F 01/21/22 05:18 Pulse 88 01/21/22 05:18 Resp 18 01/21/22 05:18 BP 112/69 01/21/22 05:18 Pulse Ox 97 01/21/22 05:18 BMI result Body Mass Index 25.8 Neuro: Other: Alert and awake with slight dysphagia. Face was symmetrical. Visual rdz were full. He was able to lift legs against gravity. Plantars were flat. There was no obvious arm weakness. Results Labs CBC & Chem 7: 01/21/22 07:19 01/21/22 07:19 Labs: Short CBC 01/20/22 01/21/22 Range/Units 20:20 07:19 WBC 8.7 10.5 (4.8-10.8) X10*3/uL Hgb 13.5 L 13.5 L (14.0-18.0) g/dl Hct 41.3 L 42.1 (42.0-52.0) % Plt Count 225 227 (160-400) X10*3/uL BMP 01/20/22 01/21/22 20:43 07:19 Sodium 140 139 Potassium 5.3 H D 3.9 D Chloride 103 104 Carbon Dioxide 27 25 BUN 17 H D 14 Creatinine 0.71 0.68 Calcium 9.5 D 9.6 Liver Function 01/20/22 Range/Units 20:43 Total Bilirubin 0.3 (0.0-1.0) mg/dL AST 19 D (5-37) U/L ALT 19 (0-40) U/L Alkaline Phosphatase 59 (39-117) U/L Albumin 4.6 (3.5-5.0) g/dL Assessment and Plan (1) Multiple sclerosis exacerbation: Status: Acute (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 His antibody titer was negative but I still believe that his brain MRI and clinical presentation is rather atypical for multiple sclerosis and suggestive more of an atypical demyelinating disease such as neuromyelitis optica. At this time, I recommend treatment with Solu-Medrol a g a day for 5 days. Also recommended is to obtain MRI of cervical and thoracic spine to look at extent of his disease. This can also help to defined or refine diagnosis. Procedures Date of Service Date of Service: 01/21/22
--- NOTE | 2022-01-21 14:18 | MHC.CM.PN ---
Addendum entered by Kassandra Angela 01/21/22 14:30: PER RECORDS, PT IS WITH [facility] REFERRAL SENT TO CONFIRM Original Note: PT REPORTS HE LIVES AT HOME WITH FAMILY AND REQUIRES ASSISTANCE WITH ALL CARE PT REPORTS HE HAS DAILY [facility] AND A VNA FOR MEDS AND PT PT REPORTS HE HAS A W/C, WALKER, AND SHOWER CHAIR AT HOME PT REPORTS HIS PCP IS [facility] PT REPORTS BEING VACCINATED AGAINST COVID-19 BUT DOES NOT HAVE THE DETAILS AROUND BRAND OR DATES HE HAS A HCP ON FILE IMM DELIVERED, COPY SENT TO [facility] CURRENT DC PLAN IS HOME WITH [facility]UMPT[facility] OF SERVICES FAMILY TO TRANSPORT
--- NOTE | 2022-01-21 16:44 | PM.EVENT ---
Event Note Date of Service: 01/21/22 Event Note: patient came to the hospital because of possible multiple sclerosis flare, seems to be if feeling slightly better with hough. Physical exam: Unchanged from H&P except vision is improving assessment and plan coordinated in H&P, neuro evaluation noted -continue IV steroids for 5 days, MRI cervical and lumbar spine .
[2022-01-21] MEDS: LORazepam 2 MG/ML VIAL 0.5 MG IVPUSH (19:20)
[2022-01-22] MEDS: 0.9 % Sodium Chloride Flush 3 ML SYRINGE IVFLUSH ×3 (00:42→16:12)
[2022-01-22] MEDS: Enoxaparin Sodium 40 MG/0.4 ML SYRINGE SUBCUT (02:51)
[2022-01-22 03:35] VITALS: BP 114/59; PULSE 76; RESP 16; TEMP 36.6; O2SAT 96
--- NOTE | 2022-01-22 07:30 | HO.PM.IMPN ---
Subjective Subjective Date of Service: 01/22/22 Interval History: ms flare vs NMo Review of Systems seems imporving Denies any new complaint of chest pain or shortness of breath or abdominal pain or fever or chills or nausea or vomiting Denies any cough Physical Exam Vital Signs: Vital Signs: Last Vital Signs Temp 97.9 F 01/22/22 03:35 Pulse 76 01/22/22 03:35 Resp 16 01/22/22 03:35 BP 114/59 L 01/22/22 03:35 Pulse Ox 96 01/22/22 03:35 BMI result Body Mass Index 25.8 Appearance: Alert.? Oriented X3.? not in distress.? Eyes: Pupils equal, round and reactive to light.? Sclera nonicteric.? ENT: Pharynx normal.? Moist mucous membranes. cvs: rrr, [id number] , no murmur res: clear to auscultation ,no rhonchii or wheezing abd: no rebound or guarding ,nt, bs present. ext pulses present , no cyanosis . neuro: axo3 , moves allext, Objective Data Active Medications Acetaminophen (Acetaminophen 325 Mg Tablet) 650 mg PO Q6H PRN PRN Reason: Pain, Mild (Pain Scale 1-3) Enoxaparin Sodium (Enoxaparin Sodium 40 Mg/0.4 Ml Syringe) 40 mg SUBCUT Q24H [facility] Last Admin: 01/22/22 02:51 Dose: 40 mg Documented by: AUDELIA Methylprednisolone Sodium Succinate 1,000 mg/ Sodium Chloride 66 mls @ 66 mls/hr IV DAILY [facility] Stop: 01/24/22 09:59 Last Infusion: 01/21/22 11:34 Dose: 0 mls/hr Documented by: CHRISSY Ondansetron HCl (Ondansetron Hcl 4 Mg/2 Ml Vial) 4 mg IVPUSH Q8H PRN PRN Reason: Nausea and Vomiting Pharmacy Consult (Consult Rx Perform Med Rec) 1 each MISCELLANE ONCE PRN PRN Reason: Consult order Sodium Chloride (0.9 % Sodium Chloride Flush 3 Ml Syringe) 3 ml IVFLUSH QSHIFT [facility] Last Admin: 01/22/22 00:42 Dose: 3 ml Documented by: AUDELIA Labs CBC & Chem 7: 01/21/22 07:19 01/21/22 07:19 Labs: Laboratory Results - last 24 hr 01/21/22 01/21/22 07:19 07:19 MCV 78.8 L MCH 25.3 L MCHC 32.1 RDW 13.6 Plt Count 227 MPV 12.3 Immature Gran % (Auto) 0.3 Neut % (Auto) 95.0 H Lymph % (Auto) 3.6 L [place] % (Auto) 1.0 L Eos % (Auto) 0.0 Baso % (Auto) 0.1 Lymph # (Auto) 0.4 L [place] # (Auto) 0.1 Eos # (Auto) 0.0 Baso # (Auto) 0.0 Abs Immat Gran (auto) 0.03 Absolute Neuts (auto) 10.0 H Absolute Nucleated RBC 0.000 Nucleated RBC % (auto) 0.0 Smear Tech's Comments VERIFIED Anion Gap 15 Estim Creat Clear Calc 143.8 Estimated GFR > 60 Random Glucose 157 H D Calcium 9.6 Assessment and Plan (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 MS exacerbation -? finding of neurological exam as above -? 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 ?DVT prophylaxis: ? Lovenox Quality Stroke Does the patient have a stroke diagnosis?: No VTE Prior VTE?: No VTE Risk Level:: Medical - moderate - high VTE Device Contraindication: Treatment Not Indicated VTE Drug Contraindication: N/A - Med Ordered
[2022-01-22 08:00] VITALS: BP 117/58; PULSE 93; RESP 17; TEMP 36.7; O2SAT 96
[2022-01-22] MEDS: methylPREDNISolone Sod Succ 1,000 MG in 0.9 % Sodium Chloride 50 ML 66 MG IV (08:59)
[2022-01-22 11:38] VITALS: BP 119/59; PULSE 74; RESP 16; TEMP 36.7; O2SAT 97
--- NOTE | 2022-01-22 13:14 | MHC.CM.PN ---
CURRENT PLAN IS 2-3 MORE DAYS OF IV STEROIDS PRIOR TO DC HOME.
[2022-01-22 15:50] VITALS: BP 118/55; PULSE 77; RESP 18; TEMP 36.4; O2SAT 96
[2022-01-22 19:59] VITALS: BP 119/68; PULSE 68; RESP 16; TEMP 36; O2SAT 99
[2022-01-22 23:40] VITALS: BP 123/59; PULSE 61; RESP 18; TEMP 36.6; O2SAT 96
[2022-01-23] MEDS: 0.9 % Sodium Chloride Flush 3 ML SYRINGE IVFLUSH ×4 (00:16→22:45)
[2022-01-23] MEDS: Enoxaparin Sodium 40 MG/0.4 ML SYRINGE SUBCUT (02:46)
[2022-01-23 03:50] VITALS: BP 115/67; PULSE 60; RESP 16; TEMP 36.6; O2SAT 99
[2022-01-23 06:08] LABS: Hematocrit 38.4 % (42.0-52.0); Hemoglobin 12.4 g/dl (14.0-18.0); Mean Corpuscular HGB Conc 32.3 g/dl (31.0-36.0); Mean Corpuscular Hemoglobin 25.4 pg (27.0-33.0); Mean Corpuscular Volume 78.7 fL (80.0-98.0); Mean Platelet Volume 12.9 fL (9.4-12.4); Platelet Count 191 X10*3/uL (160-400); Red Blood Count 4.88 X10*6/uL (4.60-5.80); Red Cell Distribution Width 13.7 % (11.0-16.0); White Blood Count 17.4 X10*3/uL (4.8-10.8)
[2022-01-23 06:20] LABS: Anion Gap 14 (12-20); Blood Urea Nitrogen 17 mg/dL (9-16); Calcium 9.5 mg/dL (8.4-10.2); Carbon Dioxide 25 mmol/L (22-29); Chloride 107 mmol/L (96-108); Creatinine Clr Calc Pharmacy 150.5; Estimated Glomerular Filt Rate > 60; Glucose Random 107 mg/dL (60-115); Potassium 4.2 mmol/L (3.3-5.1); Sodium 142 mmol/L (135-145)
[2022-01-23 07:31] VITALS: BP 115/62; PULSE 52; RESP 18; TEMP 36.1; O2SAT 99
[2022-01-23] MEDS: methylPREDNISolone Sod Succ 1,000 MG in 0.9 % Sodium Chloride 50 ML 66 MG IV (09:09)
[2022-01-23 12:00] VITALS: BP 127/70; PULSE 75; RESP 17; TEMP 36.5; O2SAT 100
--- NOTE | 2022-01-23 13:18 | P.PNIM_ITS ---
Subjective Subjective Date of Service: 01/23/22 Interval History: cc: left sided weakness interval history:improvement, still weak Cardiovascular Cardiovascular: Reports no additional cardiovascular complaints Respiratory Respiratory: Reports no additional respiratory complaints Physical Exam Vital Signs: Vital Signs: Last Vital Signs Temp 97.7 F 01/23/22 12:00 Pulse 75 01/23/22 12:00 Resp 17 01/23/22 12:00 BP 127/70 01/23/22 12:00 Pulse Ox 100 01/23/22 12:00 BMI result Body Mass Index 25.8 General: AO X 3, no acute distress Resp: CTA bilateral, no accessory muscles used CVS: S1,S2,RRR GI: soft, non tender, non distended Neuro: left sided weakness Psych: appropriate affect, appropriate insight Objective Data Active Medications Acetaminophen (Acetaminophen 325 Mg Tablet) 650 mg PO Q6H PRN PRN Reason: Pain, Mild (Pain Scale 1-3) Enoxaparin Sodium (Enoxaparin Sodium 40 Mg/0.4 Ml Syringe) 40 mg SUBCUT Q24H [facility] Last Admin: 01/23/22 02:46 Dose: 40 mg Documented by: YAMILEX Methylprednisolone Sodium Succinate 1,000 mg/ Sodium Chloride 66 mls @ 66 mls/hr IV DAILY [facility] Stop: 01/24/22 09:59 Last Infusion: 01/23/22 10:33 Dose: 66 mls/hr Documented by: LIANET Ondansetron HCl (Ondansetron Hcl 4 Mg/2 Ml Vial) 4 mg IVPUSH Q8H PRN PRN Reason: Nausea and Vomiting Pharmacy Consult (Consult Rx Perform Med Rec) 1 each MISCELLANE ONCE PRN PRN Reason: Consult order Sodium Chloride (0.9 % Sodium Chloride Flush 3 Ml Syringe) 3 ml IVFLUSH QSHIFT [facility] Last Admin: 01/23/22 09:08 Dose: 3 ml Documented by: WILFRED Labs CBC & Chem 7: 01/23/22 05:41 01/23/22 05:41 Labs: Laboratory Results - last 24 hr 01/23/22 01/23/22 05:41 05:41 MCV 78.7 L MCH 25.4 L MCHC 32.3 RDW 13.7 Plt Count 191 MPV 12.9 H Absolute Nucleated RBC 0.000 Nucleated RBC % (auto) 0.0 Anion Gap 14 Estim Creat Clear Calc 150.5 Estimated GFR > 60 Random Glucose 107 Calcium 9.5 Assessment and Plan (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 Lovenox reason for continued hospitalization: iv steroids for nmo/ms exacerbation, unable to set up as outpatient. Quality Stroke Does the patient have a stroke diagnosis?: No VTE Prior VTE?: No VTE Risk Level:: Medical - moderate - high VTE Device Contraindication: Treatment Not Indicated VTE Drug Contraindication: N/A - Med Ordered
[2022-01-23 15:28] VITALS: BP 116/72; PULSE 69; RESP 18; TEMP 36.4; O2SAT 98
[2022-01-23 19:25] VITALS: BP 123/69; PULSE 74; RESP 18; TEMP 36.6; O2SAT 98
[2022-01-23 23:37] VITALS: BP 110/61; PULSE 64; RESP 18; TEMP 36.8; O2SAT 97
[2022-01-24] MEDS: Enoxaparin Sodium 40 MG/0.4 ML SYRINGE SUBCUT (03:29)
[2022-01-24 03:30] VITALS: BP 117/77; PULSE 70; RESP 16; TEMP 36.9; O2SAT 99
[2022-01-24 07:24] VITALS: BP 117/67; PULSE 70; RESP 18; TEMP 36.5; O2SAT 99
[2022-01-24] MEDS: methylPREDNISolone Sod Succ 1,000 MG in 0.9 % Sodium Chloride 50 ML 66 MG IV (09:17)
[2022-01-24] MEDS: 0.9 % Sodium Chloride Flush 3 ML SYRINGE IVFLUSH (09:17)
--- NOTE | 2022-01-24 11:08 | PM.DS ---
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 slurred speech, weakness ?36-year-old? male with past medical history of MS who presents to the hospital with complaints of 4 day history of weakness in his legs as well as heavy speech and difficulty speaking.? Patient reports that he has been compliant with his medications but gets flares every so often most recently in October. ? Patient reports chronic loss of vision in his left eye which has not changed reports weakness in his lower extremity, not so much in his upper extremity, he is also complaining of nystagmus.? He has had difficulty with speaking, he reports that he has had difficulty with slurred speech,? feels that his tongue is heavy and? slow speech which was similar to previous presentation.? He otherwise denies any chest pain, no headache, no shortness of breath, no abdominal pain nausea or vomiting, no diarrhea or constipation, no urinary symptoms and no lower extremity edema. On? arrival to the ED patient hemodynamically stable with no significant abnormal vitals, labs unremarkable hospital course: patient was admitted for acute MS versus an MO exacerbation. He received 5 doses of IV Solu-Medrol. He noticed some improvement in his left-sided weakness. He will be discharged home and will follow up with Dr. Huber for neurology Time Spent with Patient Time attestation: Total time spent providing and/or coordinating discharge services: Discharge coordination time: Greater than 30 minutes Quality: Safe Use of Opioids Does Pt have an Active Cancer Diagnosis on the Problem List?: No Quality: Stroke Does the patient have a stroke diagnosis?: No Physical Exam Vital Signs: Vital Signs: Last Vital Signs Temp 97.7 F 01/24/22 07:24 Pulse 70 01/24/22 07:24 Resp 18 01/24/22 07:24 BP 117/67 01/24/22 07:24 Pulse Ox 99 01/24/22 07:24 BMI result Body Mass Index 25.8 General: AO X 3, no acute distress Resp:? CTA bilateral, no accessory muscles used CVS: S1,S2,RRR GI: soft, non tender, non distended Neuro:? left sided weakness Psych: appropriate affect, appropriate insight? Discharge Plan Discharge Patient Disposition: Home, Self-Care Discharge Diagnosis: NMo Referrals: Physician,Unknown J [Primary Care Provider] - 1 Week Discharge Medications: Continued cholecalciferol (vitamin D3) 50 mcg (2,000 unit) capsule 1 cap PO DAILY 0RF dimethyl fumarate 240 mg capsule,delayed release(DR/EC) 240 mg PO BID 0RF baclofen 10 mg tablet 1 tab PO TID 0RF Discharge Orders: Discharge Order (Routine); Ordered 01/24/22 Ordered By: Nraesh Jaime Diet: advance to usual diet Activity on Discharge: As tolerated Stand Alone Forms: Patient Portal Discharge page Care Plan Goals: manage NMO Health Concerns: NMO Plan of Treatment: follow up neuro Assessment: see above
[2022-01-24 12:00] VITALS: BP 109/61; PULSE 71; RESP 17; TEMP 36.6; O2SAT 97
--- NOTE | 2022-01-24 12:13 | MHC.CM.PN ---
PATIENT IS DISCHARGED HOME TODAY WITH RESUMPTION OF HIS [facility] IMM 01/24 IN CHART IMM NOT GIVEN YESTERDAY, PLAN WAS ORIGINALLY HOME FRIDAY. [facility]IECE TO PROVIDE TRANSPORT HOME RN AWARE OF PLAN.
== END 2022-01-24 14:46 | disposition home or self-care (01) | DRG 59 ==
LOC: HO.ED 22:24 → HO.EDOVER 01-21 02:20 → HO.S3 01-21 16:11
PROVIDERS: Internal Medicine; Admitting Provider Internal Medicine; Emergency Provider Internal Medicine; Visit Provider Internal Medicine
DX: G35 Multiple sclerosis (principal); G36.0 Neuromyelitis optica [Devic]; Z20.822 Contact with and (suspected) exposure to COVID-19; Z87.891 Personal history of nicotine dependence; Z79.899 Other long term (current) drug therapy
CPT/HCPCS: 36415; 72156; 72157; 80048; 80053; 83735; 85025; 85027; 86140; 87635; 93005; 96365; 99285; A9585; J1650; J2060; J2930

== ENCOUNTER 2022-04-08 14:39 | Outpatient (RCR) | payer OTHER, SELFPAY | END 2022-05-23 08:44 | disposition home or self-care (01) | LOC: HO.PT 14:39 | PROVIDERS: Visit Provider Nurse Practitioner Family | DX: D16.6 Benign neoplasm of vertebral column (principal) | CPT/HCPCS: 97112; 97162 ==

== ENCOUNTER 2022-05-02 12:52 | Inpatient (IN) | payer OTHER, SELFPAY ==
--- NOTE | ~2022-05-02 | CT_ITS ---
EXAMINATION: CT HEAD WITHOUT CONTRAST CLINICAL INFORMATION: There are changes COMPARISON: 11/01/2021 TECHNIQUE: Contiguous axial imaging was performed from the skull base to vertex without intravenous administration of contrast. This CT examination was performed using dose optimization techniques as appropriate, variously including the following: *Automated exposure control *Adjustment of mA and/or kV according to patient size (this includes techniques or standardized protocols for targeted exams where dose is matched to indication/reason for exam; i.e. extremities or head) *Use of iterative reconstruction technique DLP: 770 mGy-cm FINDINGS: Heterogeneity within the brainstem again noted consistent with white matter lesions as previously noted. There is no evidence of acute intracranial hemorrhage or territorial infarction. No abnormal mass effect or midline shift is seen. [place] to white matter differentiation is well preserved. No extra-axial fluid collections are identified. The ventricles are normal in size. The osseous structures and soft tissues are normal. The mastoid air cells and visualized portions of the paranasal sinuses are well aerated. CT/CT head/brain wo con IMPRESSION: No acute intracranial pathology. Consider MRI follow-up to better assess the brain stem lesions.
--- NOTE | ~2022-05-02 | FL_ITS ---
EXAMINATION: XR BARIUM SWALLOW CLINICAL INFORMATION: Dysphagia. COMPARISON: None TECHNIQUE: Routine modified barium swallow was performed in upright lateral view in presence of speech therapist. FINDINGS: Following oral administration of various consistencies of thin and thick barium coated food including macerated chicken and cracker with barium there is normal propagation of bolus from the oral cavity through the pharynx into the esophagus without any evidence of obstruction or narrowing. There is mild retention in the piriform sinuses which cleared with subsequent dry swallowing. There is intermittent trace laryngeal penetration seen. FLUOROSCOPY TIME: 1.7 minutes. DOSE AREA PRODUCT: 1.766 uGy-m2 (microgray-meter squared) FL/FL barium swallow modified IMPRESSION: Intermittent trace laryngeal penetration but no aspiration. Minimal retention of food in the piriform sinuses.
[2022-05-02 12:59] VITALS: BP 130/70; PULSE 67; O2SAT 91
[2022-05-02 14:35] VITALS: BP 133/79; PULSE 87; RESP 18; TEMP 37.1; O2SAT 97; BMI 25.7
[2022-05-02 15:15] LABS: MANUAL DIFF FLAG NO
[2022-05-02 15:21] LABS: Basophils Percent Auto 0.2 % (0-2); Eosinophils Percent Auto 0.5 % (0-4); Hematocrit 41.3 % (42.0-52.0); Hemoglobin 13.1 g/dl (14.0-18.0); Imm Gran Abs Auto 0.03 X10*3/uL (0.00-0.03); Imm Gran Pct Auto 0.4 % (0.0-0.4); Lymphocytes Absolute Auto 0.7 X10*3/uL (1.2-4.9); Lymphocytes Percent Auto 8.9 % (20-40); Mean Corpuscular HGB Conc 31.7 g/dl (31.0-36.0); Mean Corpuscular Hemoglobin 25.5 pg (27.0-33.0); Mean Corpuscular Volume 80.4 fL (80.0-98.0); Monocytes Absolute Auto 0.9 X10*3/uL (0.1-1.2); Monocytes Percent Auto 11.4 % (2-11); Neutrophils Absolute Auto 6.4 x10*3/uL (2.0-8.3); Neutrophils Percent Auto 78.6 % (45-73); Platelet Count 231 X10*3/uL (160-400); Red Blood Count 5.14 X10*6/uL (4.60-5.80); Red Cell Distribution Width 14.9 % (11.0-16.0); White Blood Count 8.1 X10*3/uL (4.8-10.8)
[2022-05-02 15:40] LABS: Alanine Aminotransferase 16 U/L (0-40); Albumin Level 4.8 g/dL (3.5-5.0); Alkaline Phosphatase 59 U/L (39-117); Anion Gap 12 (12-20); Aspartate Amino Transferase 16 U/L (5-37); Bilirubin Total 0.4 mg/dL (0.0-1.0); Blood Urea Nitrogen 7 mg/dL (9-16); Calcium 9.7 mg/dL (8.4-10.2); Carbon Dioxide 30 mmol/L (22-29); Chloride 101 mmol/L (96-108); Estimated Glomerular Filt Rate > 60; Glucose Random 95 mg/dL (60-115); Potassium 4.3 mmol/L (3.3-5.1); Sodium 139 mmol/L (135-145)
[2022-05-02 15:44] LABS: COVID-19 Test Negative (Negative)
--- NOTE | 2022-05-02 18:55 | ED_ITS ---
HPI - General Adult General Chief complaint: General Medical Stated complaint: CRAMPS Time Seen by Provider: 05/02/22 18:41 Source: patient Mode of arrival: ambulatory Limitations: no limitations History of Present Illness HPI narrative: 36-year-old male with past medical history of MS who presented to the hospital complaining of bilateral leg weakness more to the left leg and multiple falls in the last 3 days. Patient also been having urinary incontinence mostly at the night time. Patient is taking baclofen for muscle spasticity because the side effect patient try to stop baclofen patient stopped it for the last 2 days but been getting more muscle cramps. Declined any visual symptoms. Related Data Home Medications Medication Instructions Recorded Confirmed cholecalciferol (vitamin D3) 50 1 cap PO DAILY 09/18/21 01/20/22 mcg (2,000 unit) capsule dimethyl fumarate 240 mg 240 mg PO BID 09/18/21 01/20/22 capsule,delayed release baclofen 10 mg tablet 1 tab PO TID 10/31/21 01/20/22 Allergies Allergy/AdvReac Type Severity Reaction Status Date / Time No Known Allergies Allergy Verified 05/02/22 14:35 [No Known Allergies*] Review of Systems Review of Systems: All other systems are reviewed and are negative Constitutional: Reports as per HPI and Reports no additional constitutional complaints Eyes: Reports as per HPI and Reports no additional eye complaints Reports system reviewed and no additional complaints, except as documented Cardiovascular: Reports as per HPI and Reports no additional cardiovascular complaints Respiratory: Reports as per HPI and Reports no additional respiratory complaints Gastrointestinal: Reports as per HPI and Reports no additional gastrointestinal complaints Genitourinary: Reports no additional female genitourinary complaints Musculoskeletal: Reports no additional musculoskeletal complaints Skin/Breast: Reports system reviewed and no additional complaints, except as docu Psychiatric: Reports no additional psychiatric complaints Endocrine: Reports no additional endocrine complaints Hematologic/Lymphatic: Reports no additional hematologic/lymphatic complaints Allergic/Immunologic: Reports no additional allergic/immunologic complaints Reports system reviewed and no additional complaints, except as documented and Reports Abnormal speech present [facility] Past Medical History Medical History Headache Microcytic anemia Multiple sclerosis Surgical History H/O hernia repair Family History Family History Other No family history of coronary artery disease Social History Social History Household Members: Family Housing: Apartment 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 have visiting nurse or other home services: Yes Patient Tobacco Use Status: Former Tobacco user Tobacco use type: Cigarette Substance Use Type: Marijuana Advance Directives: No Advance Directives Information Provided: No service: No Current occupational status: disabled Physical Exam ED Vital Signs: Vital Signs - 24 hr 05/02/22 14:35 05/02/22 20:13 Temperature 98.8 F Pulse Rate 87 81 Respiratory Rate 18 16 Blood Pressure 133/79 125/77 Pulse Oximetry 97 98 Oxygen Delivery Method Room Air Room Air BMI result Body Mass Index 25.7 Vital signs have been reviewed as appeared to be correct. Blood pressure normal. Heart rate normal. Respiration rate normal. Temperature normal. Oxygen saturation normal. Appearance: Alert. Oriented X3. No acute distress. Head: Normal external exam. Normocephalic. Small right forehead superficial abrasion. No Arnett signs noted. No raccoon eyes noted Eyes: PERRLA. EOMI. Conjunctiva and sclera normal. Eyelids normal. ENT: TM's Normal. Pharynx normal. Uvula midline. Moist mucous membranes. No trismus noted. No drooling noted. No muffled voice noted. Neck: Normal inspection. Neck supple. FROM. No adenopathy. Thyroid Normal. No meningeal signs. No neck mass noted. CVS: Normal heart rate and rhythm. Heart sound normal. No murmurs noted. Pulses normal throughout. Respiratory: No respiratory distress. Painless inspiration. Breath sounds normal. No wheezes/rales/rhonchi noted. Chest nontender. No accessory muscle usage noted or decreased air movement noted. Abdomen: Soft and nontender. Bowel sounds normal in all 4 quadrants. No distention noted. No organomegaly noted. No visible injury noted. Back: No CVA tenderness. Full range of motion noted. Skin: Skin warm and dry. Normal skin color. Normal skin turgor. No rashes/lesions/lacerations noted. Extremities: No lower extremity edema. Extremities exhibit normal range of motion. Extremities nontender. Neuro: Oriented X 3. Cranial nerve exam: II-XII are grossly intact No motor deficit. No sensory deficit. Reflexes normal. Course Course Course Narrative: 36-year-old male with history of MS presented with lower legs weakness left more than right and urinary incontinence only at nighttime, patient sustained multiple falls at home due to weakness. Impression patient with MS flare that usually improve with Solu-Medrol IV i njection and hospitalization for couple days. Head CT showed no acute intracranial bleed. Medical Decision Making Lab Data Lab results reviewed: Yes I reviewed the patient's lab results. Result diagrams: 05/02/22 15:11 05/02/22 15:11 Labs: Lab Results 05/02/22 05/02/22 05/02/22 Range/Units 15:11 15:11 15:11 WBC 8.1 (4.8-10.8) X10*3/uL RBC 5.14 (4.60-5.80) X10*6/uL Hgb 13.1 L (14.0-18.0) g/dl Hct 41.3 L (42.0-52.0) % MCV 80.4 (80.0-98.0) fL MCH 25.5 L (27.0-33.0) pg MCHC 31.7 (31.0-36.0) g/dl RDW 14.9 (11.0-16.0) % Plt Count 231 (160-400) X10*3/uL MPV 12.0 (9.4-12.4) fL Immature Gran % (Auto) 0.4 (0.0-0.4) % Neut % (Auto) 78.6 H (45-73) % Lymph % (Auto) 8.9 L (20-40) % [place] % (Auto) 11.4 H (2-11) % Eos % (Auto) 0.5 (0-4) % Baso % (Auto) 0.2 (0-2) % Lymph # (Auto) 0.7 L (1.2-4.9) X10*3/uL [place] # (Auto) 0.9 (0.1-1.2) X10*3/uL Eos # (Auto) 0.0 (0.0-0.4) X10*3/uL Baso # (Auto) 0.0 (0.0-0.2) X10*3/uL Abs Immat Gran (auto) 0.03 (0.00-0.03) X10*3/uL Absolute Neuts (auto) 6.4 (2.0-8.3) x10*3/uL Absolute Nucleated RBC 0.000 (0.0-0.012) X10*3/uL Nucleated RBC % (auto) 0.0 (0.0-0.2) /100WBC Sodium 139 (135-145) mmol/L Potassium 4.3 (3.3-5.1) mmol/L Chloride 101 (96-108) mmol/L Carbon Dioxide 30 H (22-29) mmol/L Anion Gap 12 (12-20) BUN 7 L D (9-16) mg/dL Creatinine 0.72 (0.5-1.4) mg/dL Estim Creat Clear Calc 113.0 Estimated GFR > 60 Random Glucose 95 (60-115) mg/dL Calcium 9.7 (8.4-10.2) mg/dL Magnesium 2.3 (1.6-2.6) mg/dL Total Bilirubin 0.4 (0.0-1.0) mg/dL AST 16 (5-37) U/L ALT 16 (0-40) U/L Alkaline Phosphatase 59 (39-117) U/L Total Creatine Kinase 103 D (38-174) U/L Total Protein 8.0 (6.5-8.0) g/dL Albumin 4.8 (3.5-5.0) g/dL Urine Color Urine Appearance Urine pH (5.0-8.0) Ur Specific [place] (1.005-1.025) Urine Protein (NEG-TRACE) MG/DL Urine Glucose (UA) (NEG) MG/DL Urine Ketones (NEG) MG/DL Urine Blood (NEG) Urine Nitrite (NEG) Ur Leukocyte Esterase (NEG) Urine RBC (0) /HPF Urine WBC (0-4) /HPF Ur Squamous Epith Cells /LPF Amorphous Sediment /LPF Urine Bacteria /LPF COVID-19 ([facility]) Negative (Negative) COVID-19 Clin Com See Note 05/02/22 Range/Units 19:59 WBC (4.8-10.8) X10*3/uL RBC (4.60-5.80) X10*6/uL Hgb (14.0-18.0) g/dl Hct (42.0-52.0) % MCV (80.0-98.0) fL MCH (27.0-33.0) pg MCHC (31.0-36.0) g/dl RDW (11.0-16.0) % Plt Count (160-400) X10*3/uL MPV (9.4-12.4) fL Immature Gran % (Auto) (0.0-0.4) % Neut % (Auto) (45-73) % Lymph % (Auto) (20-40) % [place] % (Auto) (2-11) % Eos % (Auto) (0-4) % Baso % (Auto) (0-2) % Lymph # (Auto) (1.2-4.9) X10*3/uL [place] # (Auto) (0.1-1.2) X10*3/uL Eos # (Auto) (0.0-0.4) X10*3/uL Baso # (Auto) (0.0-0.2) X10*3/uL Abs Immat Gran (auto) (0.00-0.03) X10*3/uL Absolute Neuts (auto) (2.0-8.3) x10*3/uL Absolute Nucleated RBC (0.0-0.012) X10*3/uL Nucleated RBC % (auto) (0.0-0.2) /100WBC Sodium (135-145) mmol/L Potassium (3.3-5.1) mmol/L Chloride (96-108) mmol/L Carbon Dioxide (22-29) mmol/L Anion Gap (12-20) BUN (9-16) mg/dL Creatinine (0.5-1.4) mg/dL Estim Creat Clear Calc Estimated GFR Random Glucose (60-115) mg/dL Calcium (8.4-10.2) mg/dL Magnesium (1.6-2.6) mg/dL Total Bilirubin (0.0-1.0) mg/dL AST (5-37) U/L ALT (0-40) U/L Alkaline Phosphatase (39-117) U/L Total Creatine Kinase (38-174) U/L Total Protein (6.5-8.0) g/dL Albumin (3.5-5.0) g/dL Urine Color YELLOW Urine Appearance CLOUDY Urine pH 6.5 (5.0-8.0) Ur Specific [place] 1.010 (1.005-1.025) Urine Protein NEG (NEG-TRACE) MG/DL Urine Glucose (UA) NEG (NEG) MG/DL Urine Ketones NEG (NEG) MG/DL Urine Blood 2+ H (NEG) Urine Nitrite NEG (NEG) Ur Leukocyte Esterase NEG (NEG) Urine RBC 5-9 H (0) /HPF Urine WBC 0 (0-4) /HPF Ur Squamous Epith Cells NONE /LPF Amorphous Sediment 3+ /LPF Urine Bacteria NONE /LPF COVID-19 ([facility]) (Negative) COVID-19 Clin Com Imaging Data CT scan - head: Attestation: I personally reviewed and interpreted this imaging study as follows: Radiologist's impression: No acute intracranial pathology. Consider MRI follow-up to better assess the brain stem lesions. Discharge Plan Discharge Clinical Impression: Multiple sclerosis exacerbation Patient Disposition: Admitted As Inpatient
[2022-05-02 19:03] LABS: Magnesium 2.3 mg/dL (1.6-2.6)
[2022-05-02 20:06] LABS: Appearance Urine CLOUDY; Color Urine YELLOW; Glucose Urine UA NEG (NEG); Leukocyte Esterase Urine NEG (NEG); Nitrite Urine NEG (NEG); PH 6.5 (5.0-8.0); UACC Culture Trigger NO; Urine Blood 2+ (NEG); Urine Ketones NEG (NEG); Urine Protein NEG (NEG-TRACE)
[2022-05-02] MEDS: methylPREDNISolone Sod Succ 1,000 MG in 0.9 % Sodium Chloride 50 ML 66 MG IV (20:07)
[2022-05-02 20:12] LABS: Amorphous Sediment Urine 3+ /LPF; WBC Urine 0 /HPF (0-4)
[2022-05-02 20:13] VITALS: BP 125/77; PULSE 81; RESP 16; O2SAT 98
--- NOTE | 2022-05-02 23:18 | PC.NURSE ---
Assumed care of pt. at 2300 from Kody Novoa RN
--- NOTE | 2022-05-02 23:34 | PM.IMHP ---
History of Present Illness Date of Service: 05/02/22 Chief Complaint: Falls/ Dizziness 36-year-old male with a past medical history of multiple sclerosis; presented to the hospital today with a chief complaint of dizziness. Patient reports that over the past 3 days he has been not feeling well; mentioned that he ran out of his baclofen and has not been taking it for 3 days. Mentions that he had intermittent headaches and dizziness. Also complains of generalized weakness; reportedly patient had a fall as per the ER team. Patient denies any neck pain back pain or hip pain. Denies any chest pain or palpitations. Denies any fever chills cough. Denies any GI symptoms. Review of all other systems is negative except mentioned above ER course: Per ER team patient exam was grossly nonfocal; given patient reported having falls; concerning for acute MS flare. Patient was given Solu-Medrol IV. Admitted to the hospital for further management. [facility] Medical History Headache Microcytic anemia Multiple sclerosis Family History Other No family history of coronary artery disease Surgical History H/O hernia repair Social History Household Members: Family Housing: Apartment 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 have visiting nurse or other home services: Yes Patient Tobacco Use Status: Former Tobacco user Tobacco use type: Cigarette Substance Use Type: Marijuana Advance Directives: No Advance Directives Information Provided: No service: No Current occupational status: disabled Meds Allergies Allergy/AdvReac Type Severity Reaction Status Date / Time No Known Allergies Allergy Verified 05/02/22 14:35 [No Known Allergies*] Home Medications Medication Instructions Recorded Confirmed Last Taken Type cholecalciferol (vitamin D3) 50 1 cap PO DAILY 09/18/21 05/03/22 01/20/22 History mcg (2,000 unit) capsule dimethyl fumarate 240 mg 240 mg PO BID 09/18/21 05/03/22 01/20/22 History capsule,delayed release baclofen 10 mg tablet 1 tab PO BID 10/31/21 05/03/22 01/20/22 History Physical Exam Vital Signs and Narrative: Vital Signs: Last Vital Signs Temp 98.8 F 05/02/22 14:35 Pulse 81 05/02/22 20:13 Resp 16 05/02/22 20:13 BP 125/77 05/02/22 20:13 Pulse Ox 98 05/02/22 20:13 O2 Del Method 05/02/22 20:13 BMI result Body Mass Index 25.7 Gen: Appears be in no acute distress HEENT: NCAT, Moist mucosa. Pulmonary: Vesicular breath sounds, fair air entry CVS: Normal S1-S2 Abdomen: BS+, Soft, Nontender Extremities: Warm well perfused Neuro: Alert and awake. Grossly nonfocal Results Labs CBC and Chem 7: 05/02/22 15:11 05/02/22 15:11 Labs: Laboratory Results - last 24 hr 05/02/22 05/02/22 05/02/22 15:11 15:11 15:11 MCV 80.4 MCH 25.5 L MCHC 31.7 RDW 14.9 Plt Count 231 MPV 12.0 Immature Gran % (Auto) 0.4 Neut % (Auto) 78.6 H Lymph % (Auto) 8.9 L [place] % (Auto) 11.4 H Eos % (Auto) 0.5 Baso % (Auto) 0.2 Lymph # (Auto) 0.7 L [place] # (Auto) 0.9 Eos # (Auto) 0.0 Baso # (Auto) 0.0 Abs Immat Gran (auto) 0.03 Absolute Neuts (auto) 6.4 Absolute Nucleated RBC 0.000 Nucleated RBC % (auto) 0.0 Anion Gap 12 Estim Creat Clear Calc 113.0 Estimated GFR > 60 Random Glucose 95 Calcium 9.7 Magnesium 2.3 Total Bilirubin 0.4 AST 16 ALT 16 Alkaline Phosphatase 59 Total Creatine Kinase 103 D Total Protein 8.0 Albumin 4.8 Urine Color Urine Appearance Urine pH Ur Specific [place] Urine Protein Urine Glucose (UA) Urine Ketones Urine Blood Urine Nitrite Ur Leukocyte Esterase Urine RBC Urine WBC Ur Squamous Epith Cells Amorphous Sediment Urine Bacteria COVID-19 ([facility]N) Negative COVID-19 Clin Com See Note 05/02/22 19:59 MCV MCH MCHC RDW Plt Count MPV Immature Gran % (Auto) Neut % (Auto) Lymph % (Auto) [place] % (Auto) Eos % (Auto) Baso % (Auto) Lymph # (Auto) [place] # (Auto) Eos # (Auto) Baso # (Auto) Abs Immat Gran (auto) Absolute Neuts (auto) Absolute Nucleated RBC Nucleated RBC % (auto) Anion Gap Estim Creat Clear Calc Estimated GFR Random Glucose Calcium Magnesium Total Bilirubin AST ALT Alkaline Phosphatase Total Creatine Kinase Total Protein Albumin Urine Color YELLOW Urine Appearance CLOUDY Urine pH 6.5 Ur Specific [place] 1.010 Urine Protein NEG Urine Glucose (UA) NEG Urine Ketones NEG Urine Blood 2+ H Urine Nitrite NEG Ur Leukocyte Esterase NEG Urine RBC 5-9 H Urine WBC 0 Ur Squamous Epith Cells NONE Amorphous Sediment 3+ Urine Bacteria NONE COVID-19 (LAVERN) COVID-19 Clin Com Imaging Radiologist's Impressions: Impressions Head CT 05/02/22 17:35 IMPRESSION: No acute intracranial pathology. Consider MRI follow-up to better assess the brain stem lesions. 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 Admitted for further management. MS Flare: Patient reported dizziness/generalized weakness/fall. Currently reports he is symptomatic improving. Mentions he has blurry vision prior to coming to the hospital which currently resolved. Patient empirically given Solu-Medrol 1000 mg IV for possible MS flare. Will continue. Neurology consult for further recommendations Continue home baclofen, dimethyl fumurate DVT prophylaxis: Lovenox Code status: Full code Quality Stroke Does the patient have a stroke diagnosis?: No VTE Prior VTE?: No VTE Risk Level:: Medical - moderate - high VTE Device Contraindication: Treatment Not Indicated VTE Drug Contraindication: N/A - Med Ordered
[2022-05-03] MEDS: 0.9 % Sodium Chloride Flush 3 ML SYRINGE IVFLUSH ×4 (01:10→21:56)
[2022-05-03] MEDS: Enoxaparin Sodium 40 MG/0.4 ML SYRINGE SUBCUT ×2 (01:10→21:56)
--- NOTE | 2022-05-03 02:30 | PC.NURSE ---
pt med rec completed, pt states baclofen frequency was reduced by doctor from TID to BID
[2022-05-03] MEDS: Baclofen 10 MG TABLET PO ×2 (02:38→08:17)
[2022-05-03 04:50] VITALS: BP 121/73; PULSE 72; RESP 16; TEMP 36.8; O2SAT 99
[2022-05-03 06:00] VITALS: BP 121/69; PULSE 72; RESP 16; TEMP 36.8; O2SAT 91
[2022-05-03 06:50] LABS: Basophils Percent Auto 0.1 % (0-2); Hematocrit 40.7 % (42.0-52.0); Hemoglobin 13.1 g/dl (14.0-18.0); Imm Gran Abs Auto 0.05 X10*3/uL (0.00-0.03); Imm Gran Pct Auto 0.6 % (0.0-0.4); Lymphocytes Absolute Auto 0.4 X10*3/uL (1.2-4.9); MANUAL DIFF FLAG SCAN; Mean Corpuscular HGB Conc 32.2 g/dl (31.0-36.0); Mean Platelet Volume 12.5 fL (9.4-12.4); Monocytes Absolute Auto 0.1 X10*3/uL (0.1-1.2); Neutrophils Absolute Auto 8.5 x10*3/uL (2.0-8.3); Neutrophils Percent Auto 94.3 % (45-73); Platelet Count 239 X10*3/uL (160-400); Red Blood Count 5.13 X10*6/uL (4.60-5.80); Red Cell Distribution Width 14.6 % (11.0-16.0); SCAN SMEAR FLAG 1
[2022-05-03 06:56] LABS: Mean Corpuscular Hemoglobin 25.5 pg (27.0-33.0); Mean Corpuscular Volume 79.3 fL (80.0-98.0)
[2022-05-03 07:11] LABS: Anion Gap 13 (12-20); Blood Urea Nitrogen 10 mg/dL (9-16); Calcium 9.9 mg/dL (8.4-10.2); Carbon Dioxide 27 mmol/L (22-29); Chloride 102 mmol/L (96-108); Creatinine Clr Calc Pharmacy 116.2; Estimated Glomerular Filt Rate > 60; Glucose Random 142 mg/dL (60-115); Potassium 4.4 mmol/L (3.3-5.1); Sodium 138 mmol/L (135-145)
[2022-05-03 07:23] LABS: SLIDE REVIEW VERIFIED
[2022-05-03 07:43] VITALS: BP 122/79; PULSE 75; RESP 14; O2SAT 99
[2022-05-03] MEDS: Cholecalciferol (Vitamin D3) 25 MCG TABLET 50 MCG PO (08:17)
--- NOTE | 2022-05-03 08:48 | PC.NURSE ---
rn to rn report given to jose by celia earlier, pt is being transferred to overflow unit.
--- NOTE | 2022-05-03 10:05 | PC.NURSE ---
Addendum entered by Blanca Ram RN 05/03/22 10:12: pt denies dizziness at this time, but complains of continued weakness. Original Note: 1000-pt assessed. pt able to communicate well. pt denies pain. GCS 15, CHASE, and states, he uses a walker at home to walk. some tremoring noted in LLE. pt has numbness X4. pedal pulses +1. abrasion noted on rt forehead from previous fall. Lung sounds clear bilaterally A&P throughout. bowel sounds present x4. RT FA IV flushed and is patent. pt requesting PT consult due to missing his PT appointment and 2 falls in last 5 days.
--- NOTE | 2022-05-03 11:03 | MHC.SL.SWA ---
Speech Pathologist Impression: Oropharyngeal dysphagia Risk of Aspiration Due to: Neurological Condition Dysphasia Diet Status: PIPER Liquid Consistency and Strategies for Safe Swallow: Liquid Intake Recommendation: [place] Water Protocol Liquid Intake Strategies: Small Sips No Straws Solid Food Consistency: Dietary Recommendations: Regular Additional Modifications to Solid Foods: Pt reports history of dysphagia. Pt complained of globus sensation, and stated that swallowing between bites and taking sips of a drink helped get it down. Pt also reported that he has difficulty with thin liquids, recalled being on thickener while in rehab in September d/t liquids going down the wrong way. Pt seen for bedside dysphagia evaluation while in the ED overflow area this morning. There were no observable difficulties when consuming solids, however, pt did produce throat clear intermittently with sips of thin liquids. MICROGRINDER OPERATOR explained that throat clear is a clinical sign indicating pt is possibly aspirating when drinking thin liquid. Pt refused to trial any thickened liquids, stated that he won't drink that, even after provided with education RE: signs of aspiration and rationale for the utilization of thickener. Pt continued to refuse thickener. At this time recommend REGULAR solids, [place] Free Water Protocol, pills WHOLE in PUREE. Recommend avoid hard, tough solids and mixed consistencies (i.e. cereal with milk, thin soup w/ solid ingredients). Dry swallow between bites, follow with sip of liquid if needed. Recommend pt to take small controlled sips by teaspoon or cup, water only; NO STRAWS. Aspiration precautions apply. Recommend frequent oral care, ideally before and after PO intake. Pt would benefit from MBSS given hx dysphagia and underlying M.S. MICROGRINDER OPERATOR sent message to , RN, RD via [employer] Oral Medication Intake: Whole with Puree Please contact the pharmacy regarding appropriate crushable or liquid drug formulations that are available whenever modified delivery is recommended. Compensatory Strategies and Precautions to be Taken for Safe Swallow: Sitting Upright (90 deg) Double Swallow No Straw Liquids from Cup Liquids from Spoon Small Bites and Sips Alternate Liquids/Solids Rate of Ingestion Change Avoid Specific Foods Supervision While Eating and Drinking for Safe Swallow: Intermittent Supervision Foods to Avoid: Tough, hard foods; mixed consistencies Swallowing Recommended Treatments: Compens. Strategy Educat. Recommendation for Speech: Outpatient Speech Therapy Inpatient Speech Therapy Modified Barium Swallow Study - Inpatient Modified Barium Swallow Study - Outpatient Comment: Pt would benefit from MBSS (inpatient versus outpatient) & continued speech therapy for dysphagia at next level of care. MICROGRINDER OPERATOR will continue to follow during hospitalization. Electronic Assembler Group Leader Clinican/Clinical Fellow: No Supervisory Statement: I have reviewed and agree with the student/clinical fellow's documentation: N/A Speech Language Pathologist: Scarlet Wesley M.A., [facility]-MICROGRINDER OPERATOR
--- NOTE | 2022-05-03 11:29 | PM.NEUROCN ---
History of Present Illness Data of Consult Service Date: 05/03/22 Primary Care Provider: Unknown Physician HPI Reason for consult: Multiple sclerosis 36 years old man with chronic remitting relapsing multiple sclerosis presently treated with Tecfidera came to hospital with worsening weakness and dizziness. He was recently given baclofen. He said that he started taking baclofen to 3 times a day and felt weak and lethargic and had cramps. He denied any cold or flu-like illness or fever chills or any change in his urinary pattern. Review of Systems Review of Systems: No recent cold or flu-like illness. [facility] Past Medical History Medical History Headache Microcytic anemia Multiple sclerosis Family History Family History Other No family history of coronary artery disease Surgical History Surgical History H/O hernia repair Social History Social History Household Members: Family Housing: Apartment 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 have visiting nurse or other home services: Yes Alcohol intake: never Patient Tobacco Use Status: Former Tobacco user Tobacco use type: Cigarette Use of substances other than those prescribed or required for medical reasons: No Substance Use Type: Marijuana Advance Directives: No Advance Directives Information Provided: No service: No Current occupational status: disabled Meds Allergies Allergy/AdvReac Type Severity Reaction Status Date / Time No Known Allergies Allergy Verified 05/02/22 14:35 [No Known Allergies*] Active Medications: Current Medications Acetaminophen (Acetaminophen 325 Mg Tablet) 650 mg PO Q6H PRN PRN Reason: Pain, Mild (Pain Scale 1-3) Baclofen (Baclofen 10 Mg Tablet) 10 mg PO BID [facility] Last Admin: 05/03/22 08:17 Dose: 10 mg Enoxaparin Sodium (Enoxaparin Sodium 40 Mg/0.4 Ml Syringe) 40 mg SUBCUT BEDTIME [facility]ALO Last Admin: 05/03/22 01:10 Dose: 40 mg Methylprednisolone Sodium Succinate 1,000 mg/ Sodium Chloride 66 mls @ 66 mls/hr IV Q24H [facility] Melatonin (Melatonin 3 Mg Tablet) 6 mg PO BEDTIME PRN PRN Reason: Insomnia Non-Formulary Medication (Dimethyl Fumarate) 240 mg PO BID [facility] Senna (Sennosides 8.6 Mg Tablet) 17.2 mg PO BEDTIME PRN PRN Reason: Constipation Sodium Chloride (0.9 % Sodium Chloride Flush 3 Ml Syringe) 3 ml IVFLUSH QSHIFT [facility] Last Admin: 05/03/22 08:18 Dose: 3 ml Vitamin D (Cholecalciferol (Vitamin D3) 25 Mcg Tablet) 50 mcg PO DAILY [facility] Last Admin: 05/03/22 08:17 Dose: 50 mcg Home Medications Medication Instructions Recorded Confirmed Last Taken Type cholecalciferol (vitamin D3) 50 1 cap PO DAILY 09/18/21 05/03/22 01/20/22 History mcg (2,000 unit) capsule dimethyl fumarate 240 mg 240 mg PO BID 09/18/21 05/03/22 01/20/22 History capsule,delayed release baclofen 10 mg tablet 1 tab PO BID 10/31/21 05/03/22 01/20/22 History Physical Exam Vital Signs: Vital Signs: Last Vital Signs Temp 98.2 F 05/03/22 06:00 Pulse 75 05/03/22 07:43 Resp 14 05/03/22 07:43 BP 122/79 05/03/22 07:43 Pulse Ox 99 05/03/22 07:43 O2 Del Method BiPAP 05/03/22 06:00 BMI result Body Mass Index 25.7 Neuro: Other: Alert and awake with normal spontaneity of speech fluency comprehension and affect. He recognized me right away. Reflexes are bilaterally brisk with bilateral extensor plantar. There was moderate bilateral ataxia. Speech was slightly ataxic Results Labs CBC & Chem 7: 05/03/22 05:53 05/03/22 05:53 Labs: Short CBC 05/02/22 05/03/22 Range/Units 15:11 05:53 WBC 8.1 9.0 (4.8-10.8) X10*3/uL Hgb 13.1 L 13.1 L (14.0-18.0) g/dl Hct 41.3 L 40.7 L (42.0-52.0) % Plt Count 231 239 (160-400) X10*3/uL BMP 05/02/22 05/03/22 15:11 05:53 Sodium 139 138 Potassium 4.3 4.4 Chloride 101 102 Carbon Dioxide 30 H 27 BUN 7 L D 10 Creatinine 0.72 0.70 Calcium 9.7 9.9 Cardiac Enzymes 05/02/22 Range/Units 15:11 Total Creatine Kinase 103 D (38-174) U/L Liver Function 05/02/22 Range/Units 15:11 Total Bilirubin 0.4 (0.0-1.0) mg/dL AST 16 (5-37) U/L ALT 16 (0-40) U/L Alkaline Phosphatase 59 (39-117) U/L Albumin 4.8 (3.5-5.0) g/dL Urine 05/02/22 Range/Units 19:59 Urine Color YELLOW Urine Appearance CLOUDY Urine pH 6.5 (5.0-8.0) Ur Specific [place] 1.010 (1.005-1.025) Urine Protein NEG (NEG-TRACE) MG/DL Urine Glucose (UA) NEG (NEG) MG/DL Assessment and Plan (1) Multiple sclerosis exacerbation: Status: Acute 36 years old man with remitting relapsing multiple sclerosis and history of alcohol and cocaine abuse presently managed with Tecfidera and baclofen for spasticity. He came to hospital with worsening weakness cramping and unsteadiness. He related this to baclofen doses. I suggest holding baclofen for now and doing a urine tox screen to rule out any possibility of cocaine or drug abuse. If tox screen is negative and eliminating baclofen would not improve his symptoms, I would suggest starting him on Solu-Medrol a g a day for couple of days. Procedures Date of Service Date of Service: 05/03/22
--- NOTE | 2022-05-03 11:37 | MHC.CM.PN ---
IMM addressed, copy to patient and copy in filed in chart. Patient prefers Vietnamese. PATIENT REPORTS: He lives with his parents in an apartment. 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 He has a [facility] nurse and certified social workers in health care who check in on him at least once a month. DME: He has a cane, walker, and wheelchair at home. HCP is on file COVID: Vax'd x2 (Pfizer) PCP: Sanam Awad, PIPER/ Task to add PCP sent to Registration. His FINANCIAL SALES REPRESENTATIVE-Benjamín will transport home D/C Plan: Home with resumption of services
--- NOTE | 2022-05-03 14:37 | HO.PM.IMPN ---
Subjective Subjective Date of Service: 05/03/22 Interval History: Complaining of generalized weakness times for 5 days, was able to do yoga and exercise for in lies 5 days feels both upper and lower extremities weak cannot perform activities that he was previously doing, also complaining of dizziness, denies visual symptoms, is blind left eye, no fever, no chills, no URI symptoms, no urinary symptoms. Review of Systems Review of Systems: Yes all other systems are reviewed and are negative Physical Exam Vital Signs: Vital Signs: Last Vital Signs Temp 98.2 F 05/03/22 06:00 Pulse 75 05/03/22 07:43 Resp 14 05/03/22 07:43 BP 122/79 05/03/22 07:43 Pulse Ox 99 05/03/22 07:43 O2 Del Method BiPAP 05/03/22 06:00 BMI result Body Mass Index 25.7 Const: Other: Gen: Awake alert, in no acute distress HEENT:? Left eye blind/anicteric sclera Neck is supple Lungs clear to auscultaion CVS:? Normal S1-S2 Abdomen: Soft, Nontender, bowel sounds audible Extremities:? No edema Neuro:? Alert and awake times 3. Speech ataxic, normal strength and sensation both extremity.? Skin no rash Objective Data Active Medications Acetaminophen (Acetaminophen 325 Mg Tablet) 650 mg PO Q6H PRN PRN Reason: Pain, Mild (Pain Scale 1-3) Baclofen (Baclofen 10 Mg Tablet) 10 mg PO BID [facility] Last Admin: 05/03/22 08:17 Dose: 10 mg Documented By: [place] Enoxaparin Sodium (Enoxaparin Sodium 40 Mg/0.4 Ml Syringe) 40 mg SUBCUT BEDTIME [facility] Last Admin: 05/03/22 01:10 Dose: 40 mg Documented By: JOAN Methylprednisolone Sodium Succinate 1,000 mg/ Sodium Chloride 66 mls @ 66 mls/hr IV Q24H [facility] Melatonin (Melatonin 3 Mg Tablet) 6 mg PO BEDTIME PRN PRN Reason: Insomnia Non-Formulary Medication (Dimethyl Fumarate) 240 mg PO BID [facility] Senna (Sennosides 8.6 Mg Tablet) 17.2 mg PO BEDTIME PRN PRN Reason: Constipation Sodium Chloride (0.9 % Sodium Chloride Flush 3 Ml Syringe) 3 ml IVFLUSH QSHIFT [facility] Last Admin: 05/03/22 08:18 Dose: 3 ml Documented By: [place] Vitamin D (Cholecalciferol (Vitamin D3) 25 Mcg Tablet) 50 mcg PO DAILY [facility] Last Admin: 05/03/22 08:17 Dose: 50 mcg Documented By: [place] Labs CBC & Chem 7: 05/03/22 05:53 05/03/22 05:53 Labs: Laboratory Results - last 24 hr 05/02/22 05/02/22 05/02/22 15:11 15:11 15:11 MCV 80.4 MCH 25.5 L MCHC 31.7 RDW 14.9 Plt Count 231 MPV 12.0 Immature Gran % (Auto) 0.4 Neut % (Auto) 78.6 H Lymph % (Auto) 8.9 L [place] % (Auto) 11.4 H Eos % (Auto) 0.5 Baso % (Auto) 0.2 Lymph # (Auto) 0.7 L [place] # (Auto) 0.9 Eos # (Auto) 0.0 Baso # (Auto) 0.0 Abs Immat Gran (auto) 0.03 Absolute Neuts (auto) 6.4 Absolute Nucleated RBC 0.000 Nucleated RBC % (auto) 0.0 Smear Tech's Comments Anion Gap 12 Estim Creat Clear Calc 113.0 Estimated GFR > 60 Random Glucose 95 Calcium 9.7 Magnesium 2.3 Total Bilirubin 0.4 AST 16 ALT 16 Alkaline Phosphatase 59 Total Creatine Kinase 103 D Total Protein 8.0 Albumin 4.8 Urine Color Urine Appearance Urine pH Ur Specific [place] Urine Protein Urine Glucose (UA) Urine Ketones Urine Blood Urine Nitrite Ur Leukocyte Esterase Urine RBC Urine WBC Ur Squamous Epith Cells Amorphous Sediment Urine Bacteria COVID-19 ([facility]) Negative COVID-19 Clin Com See Note 05/02/22 05/03/22 05/03/22 19:59 05:53 05:53 MCV 79.3 L MCH 25.5 L MCHC 32.2 RDW 14.6 Plt Count 239 MPV 12.5 H Immature Gran % (Auto) 0.6 H Neut % (Auto) 94.3 H Lymph % (Auto) 4.0 L [place] % (Auto) 1.0 L Eos % (Auto) 0.0 Baso % (Auto) 0.1 Lymph # (Auto) 0.4 L [place] # (Auto) 0.1 Eos # (Auto) 0.0 Baso # (Auto) 0.0 Abs Immat Gran (auto) 0.05 H Absolute Neuts (auto) 8.5 H Absolute Nucleated RBC 0.000 Nucleated RBC % (auto) 0.0 Smear Tech's Comments VERIFIED Anion Gap 13 Estim Creat Clear Calc 116.2 Estimated GFR > 60 Random Glucose 142 H D Calcium 9.9 Magnesium Total Bilirubin AST ALT Alkaline Phosphatase Total Creatine Kinase Total Protein Albumin Urine Color YELLOW Urine Appearance CLOUDY Urine pH 6.5 Ur Specific [place] 1.010 Urine Protein NEG Urine Glucose (UA) NEG Urine Ketones NEG Urine Blood 2+ H Urine Nitrite NEG Ur Leukocyte Esterase NEG Urine RBC 5-9 H Urine WBC 0 Ur Squamous Epith Cells NONE Amorphous Sediment 3+ Urine Bacteria NONE COVID-19 ([facility]) COVID-19 Clin Com Assessment and Plan (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 Concern for MS flare.? Admitted for further management.? Generalized weakness/dizziness. Question related to MS flare Seen by Neurology they recommend urine toxicology screen to rule out use of cocaine/other illicit drug use, and to hold baclofen question contributing to symptoms since recently started? Continue Solu-Medrol 1000 mg IV day 2 Continue dimethyl fumurate Dysphagia seen by speech therapy they recommend frequent oral care before and after by mouth intake, and also recommended MBSS study given underlying MS, will order MBSS study DVT prophylaxis:? Lovenox GI prophylaxis add Prilosec Code status: Full code Reason for continued hospitalization IV steroids for possible MS exacerbation unable to set treatment as outpatient. Quality Stroke Does the patient have a stroke diagnosis?: No VTE Prior VTE?: No VTE Risk Level:: Medical - moderate - high VTE Device Contraindication: Treatment Not Indicated VTE Drug Contraindication: N/A - Med Ordered
--- NOTE | 2022-05-03 15:26 | MHC.SL.IMP ---
Date of Plan of Treatment: 05/03/22 Onset of Symptoms/Illness: 05/03/22 Date Treatment Started: 05/03/22 Admitting Diagnosis: Neuromyelitis optica spectrum disorder Multiple sclerosis exacerbation Primary Speech & Language Diagnosis: R13.12 Oropharyngeal Phase Dysphagia Reason for Today's Visit: [id number] Modified Barium Swallow Study Pre-evaluation Dietary Consistencies: Regular Pre-evaluation Liquid Consistency: Thin Pre-evaluation Medication Administration: Whole with Puree Medical History: Modified Barium Swallow Study Fluoroscopic Evaluation of Swallowing Function CPT Code 01613 Evaluation Year: 2021 Reason for Study: Patient reports difficulty swallowing. Referring Physician: Dr. Casas Evaluating Clinician: Scarlet Wesley MA, CCC-PAVER Study Number: 1 Patient Name: Justus Barba Status: Inpatient, Wheelchair Age: 36 Gender: Male MEDICAL HISTORY: Admitting Diagnosis: Neuromyelitis optica spectrum disorder Multiple sclerosis exacerbation Primary (admitting) Diagnosis: MS Year of Onset or Diagnosis: 2021 Comorbidities: Headache Micocytic anemia Current (pre-evaluation) Intake/Diet: Route: PO Diet Grade: Regular Liquid Consistencies: Thin Pre-Study Functional Oral Intake Scale (FOIS): 7- Total oral intake with no restrictions Pain: None reported at time of study SUBJECTIVE: Pt is a 36 year old male brought to ED with chief complaint dizziness and generalized weakness. Pt reported having falls, concern for acute MS flare. Pt reports history of dysphagia. Pt complained of globus sensation, and stated that swallowing between bites and taking sips of a drink helped get it down. Pt also reported that he has difficulty with thin liquids, recalled being on thickener while in rehab in September d/t liquids going down the wrong way. Pt seen for bedside dysphagia evaluation while in the ED overflow area this morning. There were no observable difficulties when consuming solids, however, pt did produce throat clear intermittently with sips of thin liquids. Pt refused to trial any thickened liquids, stated that he won't drink that, even after provided with education RE: signs of aspiration and rationale for the utilization of thickener. While acknowledging that he has difficulty swallowing liquids, he continued to refuse thickener. Pt was subsequently recommended MBSS for further evaluation given hx of dysphagia and underlying diagnosis of MS. Oral Motor Exam Facial Symmetry: Symmetrical Facial Movement: Controlled Mouth Occlusion: Normal Oral-Facial Teeth Characteristics: Spaces Oral-Facial Smile (Lips) Description: Normal Oral-Facial Puff Cheeks Description: Normal Tongue Size: Normal Tongue Range of Movement Description: Normal Tongue Speed of Movement Description: Normal Tongue Strength of Movement (against opposing pressure): Normal Tongue Movement Characteristics: Fasciculations Is patient able to manage secretions?: Yes Food and Liquid Trials: Oral Impairment: Lip Closure: 0=No labial escape Oral Impairment: Tongue Control During Bolus Hold: 2=Posterior escape of less than half of bolus Oral Impairment: Bolus Preparation/Mastication: 0=Timely and efficient chewing and mashing Oral Impairment: Bolus Transport/Lingual Motion: 3=Repetitive/disorganized tongue motion Oral Impairment: Oral Residue: 2=Residue collection on oral structures Oral Impairment:Initiation of Pharyngeal Swallow: 3=Bolus head in pyriforms Pharyngeal Impairment: Soft Palate Elevation: 0=No bolus between soft palate (SP)/pharyngeal wall (PW) Pharyngeal Impairment: Laryngeal Elevation: 0=Complete superior movement of thyroid cartilage (see description) Pharyngeal Impairment: Anterior Hyoid Excursion: 0=Complete anterior movement Pharyngeal Impairment: Epiglottic Movement: 1=Partial inversion Pharyngeal Impairment: Laryngeal Vestibular Closure:: 1=Incomplete: narrow column air/contrast in laryngeal vestibule Pharyngeal Impairment: Pharyngeal Stripping Wave: 1=Present: diminished Pharyngeal Impairment: Pharyngeal Contraction: Did not test Pharyngeal Impairment: Pharyngoesophageal Segment Openin=Complete distension and complete duration: no obstruction of flow Pharyngeal Impairment: Tongue Base (TB) Retraction: 2=Narrow column of contrast/air between TB and posterior PW Pharyngeal Impairment: Pharyngeal Residue: 2=Collection of residue within or on pharyngeal structures Pharyngeal Impairment: Esophageal Clearance Upright Position: Did not test Impressions and Recommendations Clinical Observations: OBJECTIVE: Time-out: performed at 02:45 Evaluation Start: 02:30; Stop: 02:40 Patient Positioning: Seated 70-90 degrees Viewing Planes: LATERAL ONLY Contrast: MBSImP? Standardized Protocol using commercially prepared, standardized Barium viscosities, including: Varibar? THIN LIQUID (40% w/v, <15 cps) , Varibar? NECTAR (40% w/v, <150-450 cps) , 1/2 Shortbread Cookie (1 x1 x.25 ) MBSImP ID: [id number] MBSImP Results: Lip closure for intraoral bolus containment resulted in no labial escape. Tongue control during bolus hold resulted in posterior escape of less than half of the bolus. Bolus preparation and mastication resulted in timely and efficient chewing and mashing. Bolus transport/lingual motion was with repetitive/disorganized motion of the tongue. Oral residue was a collection on oral structures. Initiation of the pharyngeal swallow occurred when the bolus head was in the pyriform sinuses. Soft palate elevation resulted in no bolus between the soft palate and the pharyngeal wall. Laryngeal elevation demonstrated complete superior movement of the thyroid cartilage with complete approximation of the arytenoids to the epiglottic petiole. Anterior hyoid excursion demonstrated complete anterior movement. Epiglottic movement resulted in partial inversion. Laryngeal vestibular closure was incomplete, with a narrow column of air/contrast noted within the laryngeal vestibule at the height of the swallow. Pharyngeal stripping wave was present, but diminished. Pharyngeal contraction could not be determined due to logistical reasons not related to physiologic impairment. Pharyngoesophageal segment opening was completely distended for complete duration with no obstruction of bolus flow. Tongue base retraction allowed a narrow column of contrast or air between the retracted tongue base and the posterior pharyngeal wall. Pharyngeal residue was a collection of residue within or on pharyngeal structures. Esophageal clearance in the upright position could not be assessed due to logistical reasons not related to physiologic impairment. Oral Impairment Score: 10 Pharyngeal Impairment Score: 7 (absence of score, component 13) Esophageal Impairment Score: --- (absence of score, component 17) Laryngeal Penetration and Aspiration: Penetration was observed in today's study. [place]-thick, Thin Contrast entered the airway, remained above the vocal folds, and were ejected from the airway. ASSESSMENT: Clinician Assessment: This exam was conducted by a multidisciplinary team, which included a speech pathologist, radiologist, and cath laboratory technician. Pt was seated upright at 90 degrees in a chair for lateral view only. Pt trialed the following liquid and solid consistencies: thin liquid barium by cup, nectar thick liquid barium by cup, pureed solid (mixture applesauce with barium paste), ground solid (mixture chicken salad with barium paste), regular solid (Emelia Doone cookie coated with barium paste), barium pill tablet. Pt displayed adequate lip closure. Reduced tongue control. There was posterior escape, w/ bolus pooling in the valleculae and pyriform sinuses prior to the pharyngeal swallow. Mastication was timely and efficient. Noted repetitive posterior lingual movement for transport of bolus. Mild lingual residue cleared with subsequent dry swallow. Initiation of pharyngeal swallow was significantly delayed, initiated as bolus head reached pyriform sinuses. There was no nasopharyngeal reflux. Laryngeal elevation was complete, with complete anterior hyoid excursion. Noted partial epiglottic inversion and incomplete laryngeal vestibular closure, with resultant penetration of liquids. Flash penetration intermittently with sips of thin liquid and nectar thick liquid. Contrast entered the airway momentarily above the vocal folds and spontaneously ejected. There was no evidence of aspiration during this exam. Mild retention in the vallecular space and pyriform sinuses with both solids and liquids. Pharyngeal residue cleared with subsequent dry swallow. Barium pill tablet passed through oropharynx with sips of liquid. There was no obstruction of flow through pharyngoesohpageal segment opening. Liquid Intake Recommendation: Thin Liquid Intake Strategies: Small Sips No Straws Dietary Recommendations: Regular Medication Administration: Whole with Puree Please contact the pharmacy regarding appropriate crushable or liquid drug formulations that are available whenever modified delivery is recommended. Compensatory Strategies Recommended: Sitting Upright (90 deg) Double Swallow No Straw Liquids from Cup Liquids from Spoon Small Bites and Sips Rate of Ingestion Change Avoid Specific Foods Supervision during eating and or drinking: None Needed Recommended Treatments: Compens. Strategy Educat. Recommendation for Speech Therapy: Inpatient Speech Therapy Speech Therapy through Rehab Facility Text Comment: Intake Recommendations: Route: PO Diet Grade: Regular Liquid Consistencies: Thin Post-Study Functional Oral Intake Scale (FOIS): 6- Total oral intake with no special preparation, but must avoid specific foods or liquid items Pt w/ oropharyngeal dysphagia characterized by episodes of flash penetration with liquids and mild pharyngeal retention with both solids and liquids. There was no evidence of aspiration. Pt cleared oral and pharyngeal residue with dry swallow. Recommend pt continue with REGULAR solids and THIN liquids, pills WHOLE in PUREE. Recommend continue speech therapy for dysphagia at next level of care to provide continued education and support. Following strategies are recommended: -Take small bites of food; moisten with sauces and gravies as needed to promote oral and pharyngeal clearance -Avoid tough solids and mixed consistencies -Double swallow with bites of solids and with sips of liquid to clear residuals -Take small, individual sips -Avoid ?chugging? liquids -Avoid the use of straws -Upright 90 degree position while eating and drinking and for at least 30 minutes afterwards Suggested Referrals: The patient might benefit from a referral to: Neurology Indication for Referral: ongoing care Therapy Recommendations: Therapy will be continued Prognosis for Improvement: The prognosis for the patient to meet nutritional needs by mouth is good based on degree of impairment. Executive Associate Goals: ? The patient and/or family will participate in further education for swallowing goals. Short Term Goals: ? Guidelines - The patient will comply with/recall the following guidelines/strategies 100% of the time with minimal cuing: Bolus Volume Change, Rate of Ingestion Change, Additional Swallow(s) per Bolus. ? Education - The patient, family, caregiver will verbalize/demonstrate understanding of the results of this evaluation, the above recommendations, and the swallowing guidelines. Clinician - Supplemental, Miscellaneous Communication: It is important to note MBSS objective studies are snapshots in time and Patient function might vary with factors such as time of day or concomitant medical conditions. For this reason, the final treatment plan for this patient should rest with their medical care team. Additional recommendations should be considered with the totality of the Patient in mind. Thank for the opportunity to participate in the care of this patient. If you have any questions about the content of this report, please contact the [facility] at [facility]. Education: Education regarding findings from today's study and plans for therapy were provided to Patient only through Verbal Instruction. Understanding was expressed by the Patient only. Mail Room Clinician/Clinical Fellow: No Supervisory Statement: N/A Speech Language Pathologist: Scarlet Wesley M.A., CCC-PAVER
--- NOTE | 2022-05-03 15:33 | MHC.SLORD ---
Speech Language Pathology Order Status: MBSS completed this afternoon. Oropharyngeal dysphagia characterized by episodes of flash penetration with thin liquid and nectar thick liquid; mild collection of residue in valleculae and pyriform sinuses. Pt was able to clear oral and pharyngeal residue with dry swallow. There was no evidence of aspiration during this exam. Please refer to full report. Updated , RN, RD of results via [employer] Message.
[2022-05-03 17:34] LABS: Amphetamine Screen Urine Not Detected (Not Detect); Barbiturates, Urine Not Detected (Not Detect); Benzodiazepines Screen Urine Not Detected (Not Detect); Cannabinoid Screen Urine POSITIVE (Not Detect); Cocaine Screen Urine Not Detected (Not Detect); Fentanyl, urine Not Detected (Not Detect); Opiate Screen Urine Not Detected (Not Detect); Phencyclidine Screen Urine Not Detected (Not Detect)
[2022-05-03 17:48] VITALS: BP 122/70; PULSE 74; RESP 18; TEMP 36.6
--- NOTE | 2022-05-03 19:27 | PC.NURSE ---
1919-report called to MAUREEN Glass for room 385. questions answered.
[2022-05-03 20:00] VITALS: BP 127/68; PULSE 86; RESP 18; TEMP 36.7; O2SAT 97
[2022-05-03] MEDS: methylPREDNISolone Sod Succ 1,000 MG in 0.9 % Sodium Chloride 50 ML 66 MG IV (21:55)
[2022-05-03 22:06] VITALS: BP 135/69; PULSE 77; RESP 17; TEMP 36.2; O2SAT 97
[2022-05-04] VITALS (8 sets, daily range): BP systolic 110–132; BP diastolic 57–73; PULSE 66–85; RESP 16–18; TEMP 36–36.8; O2SAT 97–99
[2022-05-04] MEDS: Omeprazole 20 MG CAPSULE.DR PO (05:47)
[2022-05-04] MEDS: 0.9 % Sodium Chloride Flush 3 ML SYRINGE IVFLUSH ×3 (07:59→21:52)
[2022-05-04] MEDS: Cholecalciferol (Vitamin D3) 25 MCG TABLET 50 MCG PO (07:59)
--- NOTE | 2022-05-04 13:16 | P.PNIM_ITS ---
Subjective Subjective Date of Service: 05/04/22 Interval History: Feeling better this morning, feels steroid is helping, was on baclofen since October, feels it is causing weakness and wants to be transition to a different muscle relaxer, denies fever chills, no speech impairment no new visual symptoms no acute issues overnight Review of Systems Review of Systems: Yes all other systems are reviewed and are negative Physical Exam Vital Signs: Vital Signs: Last Vital Signs Temp 98.1 F 05/04/22 11:30 Pulse 82 05/04/22 11:35 Resp 17 05/04/22 11:30 BP 132/65 05/04/22 11:30 Pulse Ox 98 05/04/22 11:30 O2 Del Method 05/04/22 11:30 BMI result Body Mass Index 25.7 Const: Other: Gen:? Awake alert, in no acute distr ess HEENT:? Left e ye blind/anicteric sclera Neck is coker pple Lungs clear t o auscultaion CVS: ? Normal S1-S2 Abd omen: Soft, Nonten gali, bowel sounds audible Extremitie s:? No edema Neuro :? Alert and awake times 3.? Speech ataxic, impaired b alance and coordin ation with standin g, lower extremity weakness .? Skin no rash Objective Data Active Medications Acetaminophen (Acetaminophen 325 Mg Tablet) 650 mg PO Q6H PRN PRN Reason: Pain, Mild (Pain Scale 1-3) Enoxaparin Sodium (Enoxaparin Sodium 40 Mg/0.4 Ml Syringe) 40 mg SUBCUT BEDTIME [facility] Last Admin: 05/03/22 21:56 Dose: 40 mg Documented By: EDWIN Methylprednisolone Sodium Succinate 1,000 mg/ Sodium Chloride 66 mls @ 66 mls/hr IV Q24H [facility] Melatonin (Melatonin 3 Mg Tablet) 6 mg PO BEDTIME PRN PRN Reason: Insomnia Non-Formulary Medication (Dimethyl Fumarate) 240 mg PO BID [facility] Omeprazole (Omeprazole 20 Mg Capsule.) 20 mg PO DAILY@0630 [facility] Last Admin: 05/04/22 05:47 Dose: 20 mg Documented By: EDWIN Senna (Sennosides 8.6 Mg Tablet) 17.2 mg PO BEDTIME PRN PRN Reason: Constipation Sodium Chloride (0.9 % Sodium Chloride Flush 3 Ml Syringe) 3 ml IVFLUSH QSHIFT [facility] Last Admin: 05/04/22 07:59 Dose: 3 ml Documented By: JIM Vitamin D (Cholecalciferol (Vitamin D3) 25 Mcg Tablet) 50 mcg PO DAILY [facility] Last Admin: 05/04/22 07:59 Dose: 50 mcg Documented By: JIM Labs CBC & Chem 7: 05/03/22 05:53 05/03/22 05:53 Labs: Laboratory Results - last 24 hr 05/03/22 16:33 Urine Opiates Screen Not Detected Urine Fentanyl Screen Not Detected Ur Barbiturates Screen Not Detected Ur Phencyclidine Scrn Not Detected Ur Amphetamines Screen Not Detected U Benzodiazepines Scrn Not Detected Urine Cocaine Screen Not Detected U Marijuana (THC) Screen POSITIVE H Assessment and Plan (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 Concern for MS flare.? Admitted for further management.? Generalized weakness/dizziness. Question related to MS flare/urine toxicology positive for marijuana, no opiates, no cocaine, baclofen discontinued, no evidence of acute infection Continue Solu-Medrol 1000 mg IV day 3 Continue dimethyl fumurate Seen by Physical therapy patient noted to have bilateral lower extremity weakness, ataxic movements greater on the left impaired balance and coordination impaired transfer and gait therefore they recommend acute rehab Dysphagia underwent MBSS study that showed oropharyngeal dysphagia speech recommend regular solids and thin liquids continue speech therapy for dysphagia education and support DVT prophylaxis:? Lovenox GI prophylaxis add Prilosec Code status: Full code Reason for continued hospitalization IV steroids for MS exacerbation unable to set treatment as outpatient. Quality Stroke Does the patient have a stroke diagnosis?: No VTE Prior VTE?: No VTE Risk Level:: Medical - moderate - high VTE Device Contraindication: Treatment Not Indicated VTE Drug Contraindication: N/A - Med Ordered
[2022-05-04] MEDS: methylPREDNISolone Sod Succ 1,000 MG in 0.9 % Sodium Chloride 50 ML 66 MG IV (20:46)
[2022-05-04] MEDS: Enoxaparin Sodium 40 MG/0.4 ML SYRINGE SUBCUT (20:53)
[2022-05-05 03:55] VITALS: BP 112/70; PULSE 76; RESP 18; TEMP 35.8; O2SAT 100
[2022-05-05] MEDS: Omeprazole 20 MG CAPSULE.DR PO (05:32)
[2022-05-05] MEDS: Cholecalciferol (Vitamin D3) 25 MCG TABLET 50 MCG PO (07:42)
[2022-05-05] MEDS: 0.9 % Sodium Chloride Flush 3 ML SYRINGE IVFLUSH (07:43)
[2022-05-05 07:47] VITALS: BP 125/59; PULSE 71; RESP 14; TEMP 36.6; O2SAT 98
--- NOTE | 2022-05-05 10:53 | MHC.CM.PN ---
Addendum entered by Rosalina Rosado 05/05/22 11:34: CALL FROM [facility]. THEY STATE PATIENT ISACITVE WITH THEM REFERRAL PLACED FOR AGENCY TO RESUME SERVICES TOMORROW (05/06/22) PATIENT IS DC TODAY Original Note: PATIENT REFUSES REHAB REFERRALS. WANTS HOME TODAY WITH RESUMPTION OF SERVICES. ACCORDING TO NOTES, [facility] WILL PROVIDE TRANSPORT HOME. IN THE EVENT HE IS UNABLE TO SECURE A RIDE, CASE MANAGEMENT CAN ASSIST. T/W TO CONTACT PATIENT'S INSURANCE TRANSITION OF CARE RN (BECCA [phone]) ON FRIDAY TO ESTABLISH P.T. AND RN SKILLS. IMM 05/03 PREVIOUSLY COMPLETED
[2022-05-05] MEDS: methylPREDNISolone Sod Succ 1,000 MG in 0.9 % Sodium Chloride 50 ML 66 MG IV (11:26)
[2022-05-05 11:32] VITALS: BP 131/60; PULSE 66; RESP 14; TEMP 36.6; O2SAT 100
--- NOTE | 2022-05-05 12:29 | P.DS_ITS ---
DS: Providers Provider Date of Service: 05/05/22 Date of admission: 05/02/22 23:33 Primary care physician: Unknown Physician Consults: 05/02/22 23:33 Consult to Neurology Routine Consulting Provider: [facility] Reason for consultation: MS flare DS: Diagnosis Discharge Diagnosis (1) Neuromyelitis optica spectrum disorder: Status: Acute (2) Multiple sclerosis exacerbation: Status: Acute DS: Summary Hospital Course Hospital Course: Chief Complaint: Falls/ Dizziness 36-year-old male with a past medical history of multiple sclerosis; presented to the hospital today with a chief complaint of dizziness.? Patient reports that over the past 3 days he has been not feeling well; mentioned that he ran out of his baclofen and has not been taking it for 3 days.? Mentions that he had intermittent headaches and dizziness.? Also complains of generalized weakness; reportedly patient had a fall as per the ER team.? Patient denies any neck pain back pain or hip pain.? Denies any chest pain or palpitations.? Denies any fever chills cough.? Denies any GI symptoms.? Review of all other systems is negative except mentioned above ER course: Per ER team patient exam was grossly nonfocal; given patient reported having falls; concerning for acute MS flare.? Patient was given Solu-Medrol IV.? Admitted to the hospital for further management. Hospital course 6-year-old male with a past medical history of multiple sclerosis; presented to the hospital with a chief complaint of dizziness/generalized weakness/fall, admitted to medical floor with a diagnosis of MS flare, and started on IV Solu Medrol, urine toxicology screen was obtained that was negative for cocaine and opiate use, there was no evidence of infection, patient felt his weakness got worse due to baclofen, therefore baclofen has been discontinued patient evaluated by Dr. Huber from Neurology he recommended short course of IV steroids, since patient's symptoms improved now with with less lower extremity weakness, he is able to stand up and pivot, he was seen by Physical therapy and they recommended acute rehab but patient declined rehab facility since he has been there before and feels he has every thing set up at home and rehab will not be of much benefit to him, since patient has support at home, lives with mom and has [employer] services will discharge him with home PT services. Use recommend to continue diameter I will fumarate and to have outpatient follow-up with Neurology. CT scan of the brain showed no acute intracranial pathology. There was a concern for dysphagia therefore patient underwent MBSS study that showed oropharyngeal dysphagia speech recommend regular solids and thin liquids and recommended continued speech therapy for dysphagia education and support Time Spent with Patient Time attestation: Total time spent providing and/or coordinating discharge services: Discharge coordination time: Greater than 30 minutes Quality: Safe Use of Opioids Does Pt have an Active Cancer Diagnosis on the Problem List?: No Quality: Stroke Does the patient have a stroke diagnosis?: No Physical Exam Vital Signs: Vital Signs: Last Vital Signs Temp 97.9 F 05/05/22 11:32 Pulse 66 05/05/22 11:32 Resp 14 05/05/22 11:32 BP 131/60 05/05/22 11:32 Pulse Ox 100 05/05/22 11:32 O2 Del Method 05/05/22 11:32 BMI result Body Mass Index 25.7 Const: Other: Gen:? Awake alert, in no acute distress HEENT:? Left eye blind/anicteric sclera Neck is supple Lungs clear to auscultaion CVS:? Normal S1-S2 Abdomen: Soft, Nontender, bowel sounds audible Extremities:? No edema Neuro:? Alert and awake times 3.? Speech ataxic, mild decrease lower ext. strength and normal sensation both extremity.? Gait not evaluated. Skin no rash Discharge Plan Discharge Patient Disposition: Home Health Service Discharge Diagnosis: MS flare Referrals: [facility] [Outside] - 1 Week Physician,Unknown J [Primary Care Provider] - 1 Week Discharge Medications: Continued cholecalciferol (vitamin D3) 50 mcg (2,000 unit) capsule 1 cap PO DAILY dimethyl fumarate 240 mg capsule,delayed release(DR/EC) 240 mg PO BID Discontinued baclofen 10 mg tablet 1 tab PO BID Discharge Orders: Discharge Order (Routine); Ordered 05/05/22 Ordered By: Romelia Casas Diet: Advance to usual diet Activity on Discharge: As tolerated Stand Alone Forms: Patient Portal Discharge page Care Plan Goals: MS flare weakness improved recommend home physical therapy patient declined acute rehab, recommend to stop baclofen Health Concerns: Multiple sclerosis Plan of Treatment: Outpatient follow-up with Neurology in 1-2 weeks Assessment: As per discharge summary
== END 2022-05-05 15:40 | disposition home health service (06) | DRG 59 ==
LOC: HO.ED 19:12 → HO.EDOVER 23:50 → HO.S3 05-03 18:54
PROVIDERS: Admitting Provider Hospitalist; Emergency Provider Emergency Medicine; PCP Registered Nurse Community Health; Visit Provider Hospitalist
DX: G35 Multiple sclerosis (principal); G36.0 Neuromyelitis optica [Devic]; R29.6 Repeated falls; Z91.81 History of falling; Z20.822 Contact with and (suspected) exposure to COVID-19; Z87.891 Personal history of nicotine dependence; Z79.899 Other long term (current) drug therapy
CPT/HCPCS: 36415; 70450; 74230; 80048; 80053; 80307; 81001; 82550; 83735; 85025; 87635; 92610; 92611; 96365; 97162; 99284; 99285; J1650; J2930

== ENCOUNTER 2022-05-18 13:27 | Emergency (ER) | payer OTHER, SELFPAY ==
--- NOTE | ~2022-05-18 | XR_ITS ---
EXAMINATION: XR chest 2V CLINICAL INFORMATION: Aspiration COMPARISON: No prior chest x-ray available in our system for comparison at the time of this dictation. TECHNIQUE: XR chest 2V Lungs and Mary: Both lungs are clear. Pleura: Normal. Costophrenic angles are sharp. No pneumothorax. Heart: The heart is normal in size. Mediastinum: The mediastinum is within normal limits.. Bones: Skeletal structures included are normal for patient's age. XR/XR chest 2V IMPRESSION: No radiographic evidence of pneumonia.
--- NOTE | ~2022-05-18 | XR_ITS ---
EXAMINATION: XR SOFT TISSUE NECK CLINICAL INDICATION: Swallowed spell. COMPARISON: None TECHNIQUE: 2 views of the soft tissue neck were obtained. FINDINGS: Soft tissue films of the neck demonstrate a normal larynx, pharynx and upper trachea. No soft tissue swelling or opaque foreign body is demonstrated. XR/XR soft tissue neck IMPRESSION: No radiodense foreign body found in the soft tissue of the neck.
[2022-05-18 13:40] VITALS: BP 113/83; PULSE 82; PULSE 83; RESP 17; TEMP 36.5; O2SAT 100; O2SAT 99; BMI 25.4
--- NOTE | 2022-05-18 13:47 | ED.GENADULT ---
HPI - General Adult General Chief complaint: General Medical Stated complaint: Sore throat Time Seen by Provider: 05/18/22 13:34 Source: patient and EMS Mode of arrival: EMS Limitations: no limitations History of Present Illness HPI narrative: 36-year-old male with a history of multiple sclerosis presents with reports of choking on his pill just prior to arrival. Patient tells me he took 2 multivitamins just prior to arrival and after taking the 2nd 1 he felt like it went down the wrong tube. he was able to cough part of the pill particles up. After the coughing episode he felt well but became nervous so he decided to call the ambulance to bring him to the hospital. He reports he has had difficulties with swallowing in the past. He tells me he has to cut his food very small and take pills individually. He forgot about this earlier which is why he took 2 pills at 1 time and that of just 1. Of note patient was admitted here in April for MS exacerbation. At that time he had a barium swallow which showed intermittent trace laryngeal penetration but no aspiration. Related Data Home Medications Medication Instructions Recorded Confirmed cholecalciferol (vitamin D3) 50 1 cap PO DAILY 09/18/21 05/03/22 mcg (2,000 unit) capsule dimethyl fumarate 240 mg 240 mg PO BID 09/18/21 05/03/22 capsule,delayed release Allergies Allergy/AdvReac Type Severity Reaction Status Date / Time No Known Allergies Allergy Verified 05/02/22 14:35 [No Known Allergies*] Review of Systems Review of Systems: Yes all other systems are reviewed and are negative Constitutional: Constitutional: Reports no additional constitutional complaints, Denies body ache(s), Denies chills, Denies fever(s), Denies headache(s) and Denies weakness Eyes: Eyes: Reports no additional eye complaints and Denies change in vision ENT: Reports system reviewed and no additional complaints, except as documented, Denies dizziness, Denies headache(s), Denies nasal congestion, Denies nasal discharge and Denies neck pain Cardiovascular: Cardiovascular: Reports no additional cardiovascular complaints, Denies chest pain, Denies leg edema and Denies dyspnea Respiratory: Respiratory: Reports no additional respiratory complaints, Denies cough and Denies dyspnea Gastrointestinal: Gastrointestinal: Reports no additional gastrointestinal complaints, Denies abdominal pain, Denies diarrhea, Denies nausea and Denies vomiting Genitourinary: Genitourinary: Denies urinary incontinence Musculoskeletal: Musculoskeletal: Reports no additional musculoskeletal complaints, Denies back pain, Denies arthralgias, Denies joint swelling, Denies neck pain, Denies numbness and Denies tingling Integumentary/Breasts: Skin/Breast: Reports system reviewed and no additional complaints, except as docu and Denies rash Neurologic: Reports system reviewed and no additional complaints, except as documented, Denies dizziness, Denies headache(s), Denies numbness, Denies tingling and Denies weakness PMFSH Past Medical History Attestation statement: The following information was validated with the patient. 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) Alcohol intake: never Patient Tobacco Use Status: Former Tobacco user Tobacco use type: Cigarette Substance Use Type: Marijuana Advance Directives: Yes Advance Directives on File: Yes Advance Directives Date on File: 09/21/21 service: No Current occupational status: disabled Physical Exam ED Vital Signs: Vital Signs - 24 hr 05/18/22 13:40 05/18/22 14:25 Temperature 97.7 F 98.1 F Pulse Rate 83 72 Respiratory Rate 17 18 Blood Pressure 113/83 111/71 Pulse Oximetry 100 97 Oxygen Delivery Method Room Air Room Air BMI result Body Mass Index 25.4 Const General: alert Orientation/consciousness: patient oriented x3 Limitations: no limitations HENMT Head: Yes normal to inspection Ears: hearing grossly normal bilaterally Throat: Yes posterior oropharynx normal, Yes tonsils normal and Yes uvula midline Eyes General: appearance normal, both eyes and all related structures Pupils: Equal, round and reactive pupils present Neck Other: No crepitus or stridor in the upper airway. Neck: Yes normal visual inspection, Yes full ROM, Yes no lymphadenopathy and Yes no meningeal signs Chest Chest palpation & inspection: normal inspection of the chest Resp Effort & Inspection: normal respiratory effort Auscultation: clear to auscultation bilaterally Cardio Rate: regular rate Rhythm: regular rhythm Peripheral pulses: Peripheral pulses 2+ throughout GI Inspection: Yes normal to inspection Palpation (GI): Soft to palpation and nontender Back/Spine/Pelvis Thoracic/Lumbar Spine: thoracic and lumbar spine normal to inspection Skin General skin exam: no rashes or lesions noted Neuro General: patient oriented x3 and no meningeal signs Cranial nerves: Yes Equal, round and reactive pupils present Cognition (Neuro): normal cognition Course Course Course Narrative: X-ray show no acute finding. After the patient return for x-ray he reported feeling improved and no longer has any foreign body sensation. He is drinking fluids and having no difficulty with swallowing. We did discuss worrisome signs and symptoms including those of aspiration and patient will return for any fever or cough or shortness of breath. Comfortable with plan for discharge home. Medical Decision Making MDM Narrative Medical decision making narrative: 36-year-old male who tells me that he has had some difficulty with certain volumes of medication or textures with food with swallowing and he had an episode today where he was taking 2 pills together Ohri had some choking and felt like he may have swallowed 1 of the pills wrong. On arrival he is feeling improved but still has a sensation at the may be a foreign body in his throat. He is tolerating his secretions. He is speaking full sentences. His vitals are stable. Will check x-rays. Medical Records Medical records reviewed: Yes I reviewed the patient's medical records. Lab Data Lab results reviewed: Yes I reviewed the patient's lab results. Imaging Data soft tissue neck xray: Attestation: I personally reviewed and interpreted this imaging study as follows: Radiologist's impression: [address] [address] XRay Report Signed Patient: Justus Burr MR#: [id number] : 1985 Acct:[id number] Age/Sex: 36 / M ADM Date: 05/18/22 Loc: .ED Attending Dr: Ordering Physician: Mikaela Orozco NP Date of Service: 05/18/22 Procedure(s): XR soft tissue neck Accession Number(s): [id number] cc: Mikaela Orozco NP~ EXAMINATION: XR SOFT TISSUE NECK CLINICAL INDICATION: Swallowed spell. COMPARISON: None TECHNIQUE: 2 views of the soft tissue neck were obtained.? FINDINGS: Soft tissue films of the neck demonstrate a normal larynx, pharynx and upper trachea. No soft tissue swelling or opaque foreign body is demonstrated. XR/XR soft tissue neck IMPRESSION: No radiodense foreign body found in the soft tissue of the neck. Chest x-ray: Attestation: I personally reviewed and interpreted this imaging study as follows: Radiologist's impression: [address] [address] XRay Report Signed Patient: Justus Burr MR#: [id number] : 1985 Acct:[id number] Age/Sex: 36 / M ADM Date: 05/18/22 Loc: HO.ED Attending Dr: Ordering Physician: Mikaela Orozco NP Date of Service: 05/18/22 Procedure(s): XR chest 2V Accession Number(s): [id number] cc: Mikaela Orozco NP~ EXAMINATION: XR chest 2V CLINICAL INFORMATION: Aspiration COMPARISON: No prior chest x-ray available in our system for comparison at the time of this dictation.? TECHNIQUE: XR chest 2V Lungs and Mary: Both lungs are clear. Pleura: Normal. Costophrenic angles are sharp. No pneumothorax. Heart: The heart is normal in size. Mediastinum: The mediastinum is within normal limits.. Bones: Skeletal structures included are normal for patient's age. XR/XR chest 2V IMPRESSION: No radiographic evidence of pneumonia. Discharge Plan Discharge Clinical Impression: Difficulty in swallowing Patient Disposition: Home, Self-Care Instructions: Dysphagia (ED) Additional Instructions: Take your pills 1 at a time in Eat small bites of food that is cut up into small pieces sips of water at a time follow-up with your primary care doctor return for fever, cough or shortness of breath Prescriptions: No [facility] cholecalciferol (vitamin D3) 50 mcg (2,000 unit) capsule 1 cap PO DAILY dimethyl fumarate 240 mg capsule,delayed release(DR/EC) 240 mg PO BID Referrals: Physician,Unknown J [Primary Care Provider] -
[2022-05-18 14:25] VITALS: BP 111/71; PULSE 72; RESP 18; TEMP 36.7; O2SAT 97
--- NOTE | 2022-05-18 19:16 | PC.NURSE ---
Pt continues to attempt to find ride home. Given urinal, ate supper. no issues swallowing.
[2022-05-18 20:22] VITALS: BP 116/73; PULSE 76; RESP 16; TEMP 36.9; O2SAT 96
--- NOTE | 2022-05-18 21:23 | PC.NURSE ---
This US/PCT called [facility] at [address] transfer home. Spoke with Rosibel and she stated due to truck availability they are unable to book until tomorrow at 8AM. They are unable to pass as well RN and charge Nurse aware.
[2022-05-19] VITALS: BP 123/75; PULSE 69; TEMP 36.8; O2SAT 99
[2022-05-19 05:57] VITALS: BP 118/72; PULSE 71; RESP 14; O2SAT 99
== END 2022-05-19 09:29 | disposition home or self-care (01) ==
PROVIDERS: Emergency Provider Emergency Medicine
DX: R13.10 Dysphagia, unspecified (principal); R09.89 Other specified symptoms and signs involving the circulatory and respiratory systems
CPT/HCPCS: 70360; 71046; 99283

== ENCOUNTER 2022-08-20 17:01 | Inpatient (IN) | payer OTHER, SELFPAY ==
[2022-08-20 17:12] VITALS: BP 125/86; BP 128/79; PULSE 82; PULSE 86; RESP 18; TEMP 36.8; O2SAT 100; O2SAT 98; BMI 26.3
--- NOTE | 2022-08-20 17:25 | ED.NEUROSD ---
HPI - Neuro Symptoms/Deficit General Chief Complaint: Neuro Symptoms/Deficit Stated Complaint: neuro symptoms Time Seen by Provider: 08/20/22 17:09 History of Present Illness HPI Narrative: Patient is 37 years old with history of remitting relapsing multiple sclerosis with history of alcohol and cocaine abuse came to the ER for increased weakness and unsteadiness for last 2 weeks with slow speech similar to that when he was admitted here on 05/03. Patient ulcers been managed by Tecfidera and baclofen for spasticity patient had problem in swallowing feels food gets stuck in the throat similar that in the past when he had a modified barium swallow which showed minimal attention of food in the piriform sinus patient denies any headache no fall no fever or chills no cold symptoms patient denies use of baclofen alcohol or cocaine since discharge in 05/03. Patient stopped taking Tecfidera also, restarted 2 weeks ago when started feeling clumsiness and weakness Related Data Home Medications Medication Instructions Recorded Confirmed cholecalciferol (vitamin D3) 50 1 cap PO DAILY 09/18/21 08/20/22 mcg (2,000 unit) capsule dimethyl fumarate 240 mg 240 mg PO BID 09/18/21 08/20/22 capsule,delayed release multivitamin 1 tab PO DAILY 08/20/22 08/20/22 omega-3 300 mg-dha 120 mg-epa 180 1 cap PO DAILY 08/20/22 08/20/22 mg-fish oil 1,000 mg capsule Allergies Allergy/AdvReac Type Severity Reaction Status Date / Time No Known Allergies Allergy Verified 05/02/22 14:35 [No Known Allergies*] Review of Systems Review of Systems: Yes all other systems are reviewed and are negative [facility] Past Medical History Medical History (Updated 08/21/22 @ 00:03 by Tez Flores MD) Headache Microcytic anemia Multiple sclerosis Neuromyelitis optica spectrum disorder Surgical History H/O hernia repair Family History Family History Other No family history of coronary artery disease Social History Social History Household Members: Family Housing: Apartment 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 have 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 Oriented X3. No acute distress. Eyes: PERRL, legally blind left eye limited lateral movements of left eye ENT: Pharynx normal. Oral Mucosa moist Neck: Normal inspection. Neck supple. CVS: Normal heart rate and rhythm. Pulses normal. Respiratory: No respiratory distress. Equal air entry bilateral, no wheezing/rales/rhonchi Abdomen: Soft and nontender. Bowel sounds are present, no mass palpable, no CVA tenderness Skin: Skin warm and dry. Normal skin color. Normal skin turgor. Extremities: No lower extremity edema. No calf tenderness Neuro: Oriented X 3. Increased spasm bilateral hyperreflexia diffuse weakness bilateral Medications Administered Generic Name Dose Route Start Last Admin Trade Name Freq PRN Reason Stop Dose Admin Enoxaparin Sodium 40 mg 08/20/22 22:00 08/20/22 22:38 Enoxaparin Sodium 40 Mg/0.4 Ml Syringe SUBCUT Not Given Q24H [facility] Pantoprazole Sodium 40 mg 08/20/22 21:00 08/20/22 22:38 Pantoprazole Sodium 40 Mg/10 Ml Vial IVPUSH Not Given DAILY LALO Discontinued Medications Generic Name Dose Route Start Last Admin Trade Name Freq PRN Reason Stop Dose Admin Methylprednisolone Sodium 66 mls @ 66 mls/hr 08/20/22 17:31 08/20/22 19:39 Succinate 1,000 mg/ Sodium IV 08/20/22 18:30 Infused Chloride ONCE ONE Infusion MDM - Neuro Symptoms/Deficit MDM Narrative Medical decision making narrative: Patient with multiple scleroses came with increased weakness unsteadiness and slow speech likely MS flare up as in the past will start patient on high-dose Solu-Medrol 1 g daily admit for further evaluation by neurologist Medical Records Attestation: I reviewed the patient's medical records. Lab Data Attestation: I reviewed the patient's lab results. Result diagrams: 08/20/22 17:58 08/20/22 19:26 Labs: Lab Results 08/20/22 08/20/22 08/20/22 Range/Units 17:58 17:58 19:26 WBC 6.3 (4.8-10.8) X10*3/uL RBC 5.11 (4.60-5.80) X10*6/uL Hgb 13.1 L (14.0-18.0) g/dl Hct 40.0 L (42.0-52.0) % MCV 78.3 L (80.0-98.0) fL MCH 25.6 L (27.0-33.0) pg MCHC 32.8 (31.0-36.0) g/dl RDW 13.4 (11.0-16.0) % Plt Count 229 (160-400) X10*3/uL MPV 12.6 H (9.4-12.4) fL Immature Gran % (Auto) 0.3 (0.0-0.4) % Neut % (Auto) 69.6 (45-73) % Lymph % (Auto) 14.1 L (20-40) % [place] % (Auto) 15.0 H (2-11) % Eos % (Auto) 0.8 (0-4) % Baso % (Auto) 0.2 (0-2) % Lymph # (Auto) 0.9 L (1.2-4.9) X10*3/uL [place] # (Auto) 1.0 (0.1-1.2) X10*3/uL Eos # (Auto) 0.1 (0.0-0.4) X10*3/uL Baso # (Auto) 0.0 (0.0-0.2) X10*3/uL Abs Immat Gran (auto) 0.02 (0.00-0.03) X10*3/uL Absolute Neuts (auto) 4.4 (2.0-8.3) x10*3/uL Absolute Nucleated RBC 0.000 (0.0-0.012) X10*3/uL Nucleated RBC % (auto) 0.0 (0.0-0.2) /100WBC Sodium 140 (135-145) mmol/L Potassium 3.5 D (3.3-5.1) mmol/L Chloride 99 (96-108) mmol/L Carbon Dioxide 31 H (22-29) mmol/L Anion Gap 14 (12-20) BUN 9 (9-16) mg/dL Creatinine 0.72 (0.5-1.4) mg/dL Estim Creat Clear Calc 134.5 Estimated GFR > 60 Random Glucose 88 (60-115) mg/dL Calcium 9.9 (8.4-10.2) mg/dL Total Bilirubin 0.5 (0.0-1.0) mg/dL AST 14 (5-37) U/L ALT 8 (0-40) U/L Alkaline Phosphatase 58 (39-117) U/L C-Reactive Protein 0.13 (< or = 0.50) mg/dL Total Protein 7.3 (6.5-8.0) g/dL Albumin 4.6 (3.5-5.0) g/dL COVID-19 ([facility]) Negative (Negative) COVID-19 Clin Com See Note Discharge Plan Discharge Clinical Impression: Multiple sclerosis Patient Disposition: Admitted As Inpatient
[2022-08-20 17:30] VITALS: BP 128/79; PULSE 86; RESP 18; O2SAT 100
--- NOTE | 2022-08-20 17:32 | PC.NURSE ---
Pt alert and oriented, respirations even and unlabored. History of MS. Reports having similar events in the past with difficulty swallowing and cramping in arms and hands.
[2022-08-20 18:02] LABS: MANUAL DIFF FLAG NO
[2022-08-20 18:05] LABS: Basophils Percent Auto 0.2 % (0-2); Eosinophils Absolute Auto 0.1 X10*3/uL (0.0-0.4); Eosinophils Percent Auto 0.8 % (0-4); Hemoglobin 13.1 g/dl (14.0-18.0); Imm Gran Abs Auto 0.02 X10*3/uL (0.00-0.03); Imm Gran Pct Auto 0.3 % (0.0-0.4); Lymphocytes Absolute Auto 0.9 X10*3/uL (1.2-4.9); Lymphocytes Percent Auto 14.1 % (20-40); Mean Corpuscular HGB Conc 32.8 g/dl (31.0-36.0); Mean Corpuscular Hemoglobin 25.6 pg (27.0-33.0); Mean Corpuscular Volume 78.3 fL (80.0-98.0); Mean Platelet Volume 12.6 fL (9.4-12.4); Neutrophils Absolute Auto 4.4 x10*3/uL (2.0-8.3); Neutrophils Percent Auto 69.6 % (45-73); Platelet Count 229 X10*3/uL (160-400); Red Blood Count 5.11 X10*6/uL (4.60-5.80); Red Cell Distribution Width 13.4 % (11.0-16.0); White Blood Count 6.3 X10*3/uL (4.8-10.8)
--- NOTE | 2022-08-20 18:09 | PC.NURSE ---
IV established, labs drawn and sent.
[2022-08-20 18:16] LABS: COVID-19 Test Negative (Negative); IDNOW Serial# 16C4AD1C
[2022-08-20] MEDS: methylPREDNISolone Sod Succ 1,000 MG in 0.9 % Sodium Chloride 50 ML 66 MG IV (18:34)
[2022-08-20 19:49] LABS: Alanine Aminotransferase 8 U/L (0-40); Albumin Level 4.6 g/dL (3.5-5.0); Alkaline Phosphatase 58 U/L (39-117); Anion Gap 14 (12-20); Aspartate Amino Transferase 14 U/L (5-37); Bilirubin Total 0.5 mg/dL (0.0-1.0); Blood Urea Nitrogen 9 mg/dL (9-16); C Reactive Protein 0.13 mg/dL (< or = 0.50); Calcium 9.9 mg/dL (8.4-10.2); Carbon Dioxide 31 mmol/L (22-29); Chloride 99 mmol/L (96-108); Creatinine Clr Calc Pharmacy 134.5; Estimated Glomerular Filt Rate > 60; Glucose Random 88 mg/dL (60-115); Potassium 3.5 mmol/L (3.3-5.1); Sodium 140 mmol/L (135-145); Total Protein 7.3 g/dL (6.5-8.0)
--- NOTE | 2022-08-20 20:34 | PM.IMHP ---
History of Present Illness Date of Service: 08/20/22 Chief Complaint: Weakness This is a 37-year-old male with a pertinent history of MS and cocaine use disorder who presents to the emergency department for evaluation of generalized weakness. Patient states since being discharged from the hospital about 3-4 months ago, he stopped taking his medicines for MS. He discontinued dimethyl fumarate and baclofen as he wanted to try a natural approach for his disease. He began taking multivitamins and fish oil to control this disease. Patient states since last he has been having increasing weaknes in his extremities. Also has associated spasticity of left hand. He endorses difficulty swallowing but no at an aphasia. He denies fever, chills, chest discomfort, palpitations, shortness of breath, abdominal pain, changes in urinary or bowel habits. Endorses vision changes. He restarted dimethyl fumarate about 2 days ago for his weakness but did not notice any improvement. He is followed by Dr. Huber, neurology Review of Systems Constitutional: Constitutional: Reports fatigue and Reports weakness Eyes: Eyes: Reports diplopia Cardiovascular: Cardiovascular: Reports no additional cardiovascular complaints Respiratory: Respiratory: Reports no additional respiratory complaints Gastrointestinal: Gastrointestinal: Reports no additional gastrointestinal complaints Genitourinary: Genitourinary: Reports no additional male genitourinary complaints Musculoskeletal: Musculoskeletal: Reports muscle weakness Neurologic: Reports Abnormal speech present and Reports weakness Endocrine: Endocrine: Reports fatigue [facility] Medical History (Updated 08/20/22 @ 20:50 by Deepali Nagel MD) Headache Microcytic anemia Multiple sclerosis Neuromyelitis optica spectrum disorder Family History Other No family history of coronary artery disease Surgical History H/O hernia repair Social History Household Members: Family Housing: Apartment 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 have 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) Alcohol intake: never Patient Tobacco Use Status: Former Tobacco user Tobacco use type: Cigarette Substance Use Type: Marijuana Advance Directives: Yes Advance Directives on File: Yes Advance Directives Date on File: 09/21/21 service: No Current occupational status: disabled Meds Allergies Allergy/AdvReac Type Severity Reaction Status Date / Time No Known Allergies Allergy Verified 05/02/22 14:35 [No Known Allergies*] Active Medications: Current Medications Acetaminophen (Acetaminophen 325 Mg Tablet) 650 mg PO Q6H PRN PRN Reason: Pain, Mild (Pain Scale 1-3) Enoxaparin Sodium (Enoxaparin Sodium 40 Mg/0.4 Ml Syringe) 40 mg SUBCUT Q24H [facility] Methylprednisolone Sodium Succinate 1,000 mg/ Sodium Chloride 66 mls @ 66 mls/hr IV DAILY LALO Melatonin (Melatonin 3 Mg Tablet) 6 mg PO BEDTIME PRN PRN Reason: Insomnia Ondansetron HCl (Ondansetron Hcl 4 Mg/2 Ml Vial) 4 mg IVPUSH Q8H PRN PRN Reason: Nausea and Vomiting Pharmacy Consult (Consult Rx Perform Med Rec) 1 each MISCELLANE ONCE PRN PRN Reason: Consult order Sodium Chloride (0.9 % Sodium Chloride Flush 3 Ml Syringe) 3 ml IVFLUSH QSHIFT [facility] Home Medications Medication Instructions Recorded Confirmed Last Taken Type cholecalciferol (vitamin D3) 50 1 cap PO DAILY 09/18/21 05/03/22 01/20/22 History mcg (2,000 unit) capsule dimethyl fumarate 240 mg 240 mg PO BID 09/18/21 05/03/22 01/20/22 History capsule,delayed release Physical Exam Vital Signs and Narrative: Vital Signs: Last Vital Signs Temp 98.3 F 08/20/22 17:12 Pulse 86 08/20/22 17:30 Resp 18 08/20/22 17:30 BP 128/79 08/20/22 17:30 Pulse Ox 100 08/20/22 17:30 O2 Del Method 08/20/22 17:30 BMI result Body Mass Index 26.3 Middle-aged male lying in bed in no distress Neck supple, no JVD Regular rate and rhythm, S1-S2 heard Regular breath sounds bilaterally, no wheezing or crackles appreciated Abdomen soft nontender, no guarding, no rigidity Patient is awake, alert and oriented to self, place, time and person ; hoarseness of voice, spasticity left upper extremity, bilateral hyper reflexia, left monocular vision loss, no pronator drift, strength 3-4/5 in right lower extremity, decreased shoulder shrug Psych: Normal mood No pedal edema Neuro: Speech: Abnormal speech present Results Labs CBC and Chem 7: 08/20/22 17:58 08/20/22 19:26 Labs: Laboratory Results - last 24 hr 08/20/22 08/20/22 08/20/22 17:58 17:58 19:26 MCV 78.3 L MCH 25.6 L MCHC 32.8 RDW 13.4 Plt Count 229 MPV 12.6 H Immature Gran % (Auto) 0.3 Neut % (Auto) 69.6 Lymph % (Auto) 14.1 L [place] % (Auto) 15.0 H Eos % (Auto) 0.8 Baso % (Auto) 0.2 Lymph # (Auto) 0.9 L [place] # (Auto) 1.0 Eos # (Auto) 0.1 Baso # (Auto) 0.0 Abs Immat Gran (auto) 0.02 Absolute Neuts (auto) 4.4 Absolute Nucleated RBC 0.000 Nucleated RBC % (auto) 0.0 Anion Gap 14 Estim Creat Clear Calc 134.5 Estimated GFR > 60 Random Glucose 88 Calcium 9.9 Total Bilirubin 0.5 AST 14 ALT 8 Alkaline Phosphatase 58 C-Reactive Protein 0.13 Total Protein 7.3 Albumin 4.6 COVID-19 ([facility]) Negative COVID-19 Clin Com See Note Assessment and Plan (1) Multiple sclerosis: Status: Acute Plan This is a 37-year-old male with a pertinent history of MS and cocaine use disorder who presents to the emergency department for evaluation of generalized weakness. #. Acute exacerbation of multiple sclerosis - due to medication noncompliance. Initiating Solu-Medrol IV 1 g per day - consulting Dr. Huber, neurology. Appreciate assistance - physical therapy to evaluate and treat #. Dysphagia -due to above. Consider further work up including barium swallow if symptoms persist #. Cocaine use disorder - states he has not used since his previous admission. UDS pending DVT prophylaxis: Lovenox 40 mg daily Full code Regular diet after bedside swallow screen Admit as inpatient and will require two night minimum hospital stay for need for IV steroids. Neurology consult pending Quality Stroke Does the patient have a stroke diagnosis?: No VTE Prior VTE?: No VTE Risk Level:: Medical - moderate - high VTE Device Contraindication: Treatment Not Indicated VTE Drug Contraindication: N/A - Med Ordered
--- NOTE | 2022-08-20 21:07 | PHA.MEDREC ---
Pharmacy Consult ? Medication Reconciliation Pharmacy has completed the medication reconciliation. [employer] Apprentice used. Patient admits to be non compliant with his dimethyl fumarate as he wanted to be natural , states he just restarted it three days ago. Patient also mentioned he takes mulberry leaf.
[2022-08-21] VITALS (7 sets, daily range): BP systolic 110–135; BP diastolic 59–76; PULSE 73–90; RESP 13–18; TEMP 36.2–36.6; O2SAT 97–98; BMI 25.6
[2022-08-21 00:21] LABS: Appearance Urine Clear; Color Urine Yellow; Glucose Urine UA Negative (Negative); Leukocyte Esterase Urine Negative (Negative); Nitrite Urine Negative (Negative); Urine Blood Negative (Negative); Urine Ketones 15 mg/dL (Negative); Urine Protein Negative (Neg-Trace)
[2022-08-21 00:36] LABS: Amphetamine Screen Urine Not Detected (Not Detect); Barbiturates, Urine Not Detected (Not Detect); Benzodiazepines Screen Urine Not Detected (Not Detect); Cannabinoid Screen Urine POSITIVE (Not Detect); Cocaine Screen Urine Not Detected (Not Detect); Fentanyl, urine Not Detected (Not Detect); Opiate Screen Urine Not Detected (Not Detect); Phencyclidine Screen Urine Not Detected (Not Detect)
[2022-08-21] MEDS: 0.9 % Sodium Chloride Flush 3 ML SYRINGE IVFLUSH ×4 (01:57→20:41)
--- NOTE | 2022-08-21 05:51 | PC.NURSE ---
Patient slept the majority of the night without complications or complaints. Continues to wait for bed assignment.
[2022-08-21 06:56] LABS: Basophils Percent Auto 0.1 % (0-2); Hematocrit 40.5 % (42.0-52.0); Hemoglobin 13.2 g/dl (14.0-18.0); Imm Gran Abs Auto 0.03 X10*3/uL (0.00-0.03); Imm Gran Pct Auto 0.3 % (0.0-0.4); Lymphocytes Absolute Auto 0.5 X10*3/uL (1.2-4.9); Lymphocytes Percent Auto 4.6 % (20-40); MANUAL DIFF FLAG SCAN; Mean Corpuscular HGB Conc 32.6 g/dl (31.0-36.0); Mean Corpuscular Hemoglobin 25.3 pg (27.0-33.0); Mean Corpuscular Volume 77.6 fL (80.0-98.0); Mean Platelet Volume 12.3 fL (9.4-12.4); Monocytes Absolute Auto 0.1 X10*3/uL (0.1-1.2); Monocytes Percent Auto 0.7 % (2-11); Neutrophils Absolute Auto 9.4 x10*3/uL (2.0-8.3); Neutrophils Percent Auto 94.3 % (45-73); Platelet Count 210 X10*3/uL (160-400); Red Blood Count 5.22 X10*6/uL (4.60-5.80); Red Cell Distribution Width 13.4 % (11.0-16.0); SCAN SMEAR FLAG 1; White Blood Count 9.9 X10*3/uL (4.8-10.8)
[2022-08-21 07:14] LABS: Anion Gap 19 (12-20); Blood Urea Nitrogen 13 mg/dL (9-16); Calcium 9.9 mg/dL (8.4-10.2); Carbon Dioxide 25 mmol/L (22-29); Chloride 100 mmol/L (96-108); Creatinine Clr Calc Pharmacy 134.5; Estimated Glomerular Filt Rate > 60; Glucose Random 137 mg/dL (60-115); Sodium 140 mmol/L (135-145)
[2022-08-21 07:44] LABS: SLIDE REVIEW VERIFIED
[2022-08-21] MEDS: Pantoprazole Sodium 40 MG/10 ML VIAL IVPUSH (08:43)
[2022-08-21] MEDS: methylPREDNISolone Sod Succ 1,000 MG in 0.9 % Sodium Chloride 50 ML 66 MG IV (08:43)
--- NOTE | 2022-08-21 10:01 | MHC.CM.PN ---
Addendum entered by Sharee Shore 08/21/22 10:18: HCP on file lists Benjamín Spring. Benjamín is patient's cousin ex spouse. Patient does not want Benjamín to be his HCP any longer. Requesting new HCP be completed listing his brother, Rom Gilman. Patient does not have Rom's telephone number or address at this time. HCP completed as requested. T/W signed as a principal due to patient not being able to sign due to MS issues with his hand. Original given to patient. Copy placed in chart. Original Note: Met with patient and rfid manager in regards to discharge planning. Patient lives with his mother and father, ambulates with a walker and has senior care and occupational therapy through [facility]. PCP verified. Patient received 2 Pfizer vaccines but no boosters. IMM explained. Patient attempted to sign. However, due to MS issues with hand, patient is unable to sign. Family will transport patient home when medically stable. Continue to monitor for d/c needs.
--- NOTE | 2022-08-21 13:16 | P.CNNE_ITS ---
History of Present Illness Data of Consult Service Date: 08/21/22 Primary Care Provider: Nicole Awad NP HPI Reason for consult: Multiple sclerosis exacerbation 37 years old man with multiple sclerosis. Diagnosis was made in [facility] he used to follow Neurology there. He had been prescribed Thais fidera but I am not sure if he was taking it or use taking it a regular basis. He had complained of side effect from it in the past. His previous brain MRIs have revealed extensive brainstem FLAIR signal without enhancement but no cortical lesion. MRI of cervical and thoracic spine had revealed spinal cord atrophy but otherwise no lesion. Anti NMO titer was negative. He was back in hospital stating that he was not going through cold or flu but was feeling generally weak lethargic with difficulty speaking and swallowing. 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) Alcohol intake: never Patient Tobacco Use Status: Former Tobacco user Tobacco use type: Cigarette Substance Use Type: Marijuana Advance Directives: Yes Advance Directives on File: Yes Advance Directives Date on File: 08/21/22 service: No Current occupational status: disabled Meds Allergies Allergy/AdvReac Type Severity Reaction Status Date / Time No Known Allergies Allergy Verified 05/02/22 14:35 [No Known Allergies*] Active Medications: Current Medications Acetaminophen (Acetaminophen 325 Mg Tablet) 650 mg PO Q6H PRN PRN Reason: Pain, Mild (Pain Scale 1-3) Enoxaparin Sodium (Enoxaparin Sodium 40 Mg/0.4 Ml Syringe) 40 mg SUBCUT Q24H [facility] Last Admin: 08/20/22 22:38 Dose: Not Given Methylprednisolone Sodium Succinate 1,000 mg/ Sodium Chloride 66 mls @ 66 mls/hr IV DAILY [facility] Last Infusion: 08/21/22 11:02 Dose: Infused Melatonin (Melatonin 3 Mg Tablet) 6 mg PO BEDTIME PRN PRN Reason: Insomnia Ondansetron HCl (Ondansetron Hcl 4 Mg/2 Ml Vial) 4 mg IVPUSH Q8H PRN PRN Reason: Nausea and Vomiting Pantoprazole Sodium (Pantoprazole Sodium 40 Mg/10 Ml Vial) 40 mg IVPUSH DAILY [facility] Last Admin: 08/21/22 08:43 Dose: 40 mg Pharmacy Consult (Consult Rx Perform Med Rec) 1 each MISCELLANE ONCE PRN PRN Reason: Consult order Sodium Chloride (0.9 % Sodium Chloride Flush 3 Ml Syringe) 3 ml IVFLUSH QSHIFT [facility] Last Admin: 08/21/22 08:46 Dose: 3 ml Home Medications Medication Instructions Recorded Confirmed Last Taken Type cholecalciferol (vitamin D3) 50 1 cap PO DAILY 09/18/21 08/20/22 01/20/22 History mcg (2,000 unit) capsule dimethyl fumarate 240 mg 240 mg PO BID 09/18/21 08/20/22 01/20/22 History capsule,delayed release multivitamin 1 tab PO DAILY 08/20/22 08/20/22 Unknown History omega-3 300 mg-dha 120 mg-epa 180 1 cap PO DAILY 08/20/22 08/20/22 Unknown History mg-fish oil 1,000 mg capsule Physical Exam Vital Signs: Vital Signs: Last Vital Signs Temp 97.8 F 08/21/22 07:22 Pulse 90 08/21/22 08:51 Resp 13 08/21/22 00:00 BP 120/72 08/21/22 08:51 Pulse Ox 97 08/21/22 08:51 O2 Del Method 08/21/22 07:22 BMI result Body Mass Index 26.3 Neuro: Other: Alert and awake with normal spontaneity of speech fluency comprehension and affect. With rightward gaze he had rightward beating nystagmus and with leftward gaze right eye was beating to the left and left was in the middle. There was moderate spasticity and hyperreflexia with flexor plantars. Results Labs CBC & Chem 7: 08/21/22 06:24 08/21/22 06:24 Labs: Short CBC 11/08/22 11/09/22 Range/Units 17:58 06:24 WBC 6.3 9.9 (4.8-10.8) X10*3/uL Hgb 13.1 L 13.2 L (14.0-18.0) g/dl Hct 40.0 L 40.5 L (42.0-52.0) % Plt Count 229 210 (160-400) X10*3/uL BMP 08/20/22 08/21/22 19:26 06:24 Sodium 140 140 Potassium 3.5 D 4.0 Chloride 99 100 Carbon Dioxide 31 H 25 BUN 9 13 Creatinine 0.72 0.72 Calcium 9.9 9.9 Liver Function 08/20/22 Range/Units 19:26 Total Bilirubin 0.5 (0.0-1.0) mg/dL AST 14 (5-37) U/L ALT 8 (0-40) U/L Alkaline Phosphatase 58 (39-117) U/L Albumin 4.6 (3.5-5.0) g/dL Urine 08/21/22 Range/Units 00:13 Urine Color Yellow Urine Appearance Clear Urine pH 7.0 (5.0-9.0) Ur Specific C[place] 1.020 (1.005-1.025) Urine Protein Negative (Neg-Trace) mg/dL Urine Glucose (UA) Negative (Negative) mg/dL noncontrast head CT did not reveal any significant abnormality or acute abnormality. Assessment and Plan (1) Multiple sclerosis: Status: Acute 37 years old man who probably suffered from a variant of demyelinating disease. Though he carried diagnosis of multiple sclerosis overall pattern was somewhat different. Neuromyelitis optica was a possibility but but clinical features were not typical of that either and antibody test was negative. For now my recommendation is to treat him for few days of Solu-Medrol. He should go back to his medicine for and if he would not be able to tolerate it, he should see me as an outpatient to discuss alternate options Procedures Date of Service Date of Service: 08/21/22
--- NOTE | 2022-08-21 15:49 | P.PNIM_ITS ---
Subjective Subjective Date of Service: 08/21/22 Interval History: Notes improvement in overall function with Solu-Medrol Review of Systems Denies chest pain Denies shortness of breath Denies nausea vomiting diarrhea Physical Exam Vital Signs: Vital Signs: Last Vital Signs Temp 97.8 F 08/21/22 07:22 Pulse 90 08/21/22 08:51 Resp 13 08/21/22 00:00 BP 120/72 08/21/22 08:51 Pulse Ox 97 08/21/22 08:51 O2 Del Method 08/21/22 07:22 BMI result Body Mass Index 26.3 Const: Other: No acute distress Resp: Other: Clear to auscultation bilaterally no rales rhonchi or wheezes Cardio: Other: No S4; positive S1-S2; no S3 murmurs rubs or gallops Neuro: Other: See neurology consult Extrem: Other: No edema bilaterally Objective Data Active Medications Acetaminophen (Acetaminophen 325 Mg Tablet) 650 mg PO Q6H PRN PRN Reason: Pain, Mild (Pain Scale 1-3) Enoxaparin Sodium (Enoxaparin Sodium 40 Mg/0.4 Ml Syringe) 40 mg SUBCUT Q24H ON LICENSE OF [facility] Last Admin: 08/20/22 22:38 Dose: Not Given Documented By: NIALL Non-Admin Reason: Patient Refused Methylprednisolone Sodium Succinate 1,000 mg/ Sodium Chloride 66 mls @ 66 mls/hr IV DAILY ON LICENSE OF [facility] Last Infusion: 08/21/22 11:02 Dose: 0 mls/hr Documented By: AMMY Melatonin (Melatonin 3 Mg Tablet) 6 mg PO BEDTIME PRN PRN Reason: Insomnia Ondansetron HCl (Ondansetron Hcl 4 Mg/2 Ml Vial) 4 mg IVPUSH Q8H PRN PRN Reason: Nausea and Vomiting Pantoprazole Sodium (Pantoprazole Sodium 40 Mg/10 Ml Vial) 40 mg IVPUSH DAILY ON LICENSE OF [facility] Last Admin: 08/21/22 08:43 Dose: 40 mg Documented By: ANDRY Pharmacy Consult (Consult Rx Perform Med Rec) 1 each MISCELLANE ONCE PRN PRN Reason: Consult order Sodium Chloride (0.9 % Sodium Chloride Flush 3 Ml Syringe) 3 ml IVFLUSH QSHIFT ON LICENSE OF [facility] Last Admin: 08/21/22 08:46 Dose: 3 ml Documented By: HO.CROSBS Labs CBC & Chem 7: 08/21/22 06:24 08/21/22 06:24 Labs: Laboratory Results - last 24 hr 08/20/22 08/20/22 08/20/22 17:58 17:58 19:26 MCV 78.3 L MCH 25.6 L MCHC 32.8 RDW 13.4 Plt Count 229 MPV 12.6 H Immature Gran % (Auto) 0.3 Neut % (Auto) 69.6 Lymph % (Auto) 14.1 L Banks % (Auto) 15.0 H Eos % (Auto) 0.8 Baso % (Auto) 0.2 Lymph # (Auto) 0.9 L Banks # (Auto) 1.0 Eos # (Auto) 0.1 Baso # (Auto) 0.0 Abs Immat Gran (auto) 0.02 Absolute Neuts (auto) 4.4 Absolute Nucleated RBC 0.000 Nucleated RBC % (auto) 0.0 Smear Tech's Comments Anion Gap 14 Estim Creat Clear Calc 134.5 Estimated GFR > 60 Random Glucose 88 Calcium 9.9 Total Bilirubin 0.5 AST 14 ALT 8 Alkaline Phosphatase 58 C-Reactive Protein 0.13 Total Protein 7.3 Albumin 4.6 Urine Color Urine Appearance Urine pH Ur Specific [place] Urine Protein Urine Glucose (UA) Urine Ketones Urine Blood Urine Nitrite Ur Leukocyte Esterase Urine Opiates Screen Urine Fentanyl Screen Ur Barbiturates Screen Ur Phencyclidine Scrn Ur Amphetamines Screen U Benzodiazepines Scrn Urine Cocaine Screen U Marijuana (THC) Screen COVID-19 ([facility]) Negative COVID-19 Clin Com See Note 08/21/22 08/21/22 08/21/22 00:13 00:13 06:24 MCV 77.6 L MCH 25.3 L MCHC 32.6 RDW 13.4 Plt Count 210 MPV 12.3 Immature Gran % (Auto) 0.3 Neut % (Auto) 94.3 H Lymph % (Auto) 4.6 L Banks % (Auto) 0.7 L Eos % (Auto) 0.0 Baso % (Auto) 0.1 Lymph # (Auto) 0.5 L Banks # (Auto) 0.1 Eos # (Auto) 0.0 Baso # (Auto) 0.0 Abs Immat Gran (auto) 0.03 Absolute Neuts (auto) 9.4 H Absolute Nucleated RBC 0.000 Nucleated RBC % (auto) 0.0 Smear Tech's Comments VERIFIED Anion Gap Estim Creat Clear Calc Estimated GFR Random Glucose Calcium Total Bilirubin AST ALT Alkaline Phosphatase C-Reactive Protein Total Protein Albumin Urine Color Yellow Urine Appearance Clear Urine pH 7.0 Ur Specific [place] 1.020 Urine Protein Negative Urine Glucose (UA) Negative Urine Ketones 15 Urine Blood Negative Urine Nitrite Negative Ur Leukocyte Esterase Negative Urine Opiates Screen Not Detected Urine Fentanyl Screen Not Detected Ur Barbiturates Screen Not Detected Ur Phencyclidine Scrn Not Detected Ur Amphetamines Screen Not Detected U Benzodiazepines Scrn Not Detected Urine Cocaine Screen Not Detected U Marijuana (THC) Screen POSITIVE H COVID-19 ([facility]) COVID-19 Clin Com 08/21/22 06:24 MCV MCH MCHC RDW Plt Count MPV Immature Gran % (Auto) Neut % (Auto) Lymph % (Auto) Banks % (Auto) Eos % (Auto) Baso % (Auto) Lymph # (Auto) Banks # (Auto) Eos # (Auto) Baso # (Auto) Abs Immat Gran (auto) Absolute Neuts (auto) Absolute Nucleated RBC Nucleated RBC % (auto) Smear Tech's Comments Anion Gap 19 Estim Creat Clear Calc 134.5 Estimated GFR > 60 Random Glucose 137 H Calcium 9.9 Total Bilirubin AST ALT Alkaline Phosphatase C-Reactive Protein Total Protein Albumin Urine Color Urine Appearance Urine pH Ur Specific [place] Urine Protein Urine Glucose (UA) Urine Ketones Urine Blood Urine Nitrite Ur Leukocyte Esterase Urine Opiates Screen Urine Fentanyl Screen Ur Barbiturates Screen Ur Phencyclidine Scrn Ur Amphetamines Screen U Benzodiazepines Scrn Urine Cocaine Screen U Marijuana (THC) Screen COVID-19 ([facility]) COVID-19 Clin Com Assessment and Plan (1) Multiple sclerosis: Status: Acute Plan This is a 37-year-old male with a pertinent history of MS and cocaine use disorder who presents to the emergency department for evaluation of generalized weakness after stopping all MS meds 1.Acute exacerbation of multiple sclerosis (secondary to noncompliance) - continue Solu-Medrol 1 g IV daily - Neuro consult appreciated (resume all outpatient therapies and ( - physical therapy to evaluate and treat 2. Dysphagia - improved with Solu-Medrol -follow clinically #. Cocaine use disorder - states he has not used since his previous admission. UDS pending Lovenox Full Code Patient will require ongoing hospitalization for IV therapy with methylprednisolone for MS exacerbation Quality Stroke Does the patient have a stroke diagnosis?: No VTE Prior VTE?: No VTE Risk Level:: Medical - moderate - high VTE Device Contraindication: Treatment Not Indicated VTE Drug Contraindication: N/A - Med Ordered
[2022-08-22] VITALS (7 sets, daily range): BP systolic 110–143; BP diastolic 56–78; PULSE 70–82; RESP 14–18; TEMP 36.2–37.2; O2SAT 97–100
[2022-08-22] MEDS: 0.9 % Sodium Chloride Flush 3 ML SYRINGE IVFLUSH ×3 (09:54→19:45)
[2022-08-22] MEDS: methylPREDNISolone Sod Succ 1,000 MG in 0.9 % Sodium Chloride 50 ML 66 MG IV (09:54)
[2022-08-22] MEDS: Pantoprazole Sodium 40 MG/10 ML VIAL IVPUSH (09:55)
--- NOTE | 2022-08-22 13:59 | HO.PM.IMPN ---
Subjective Subjective Date of Service: 08/22/22 Interval History: Continues to improve. Willing to restart dimethyl fumarate Review of Systems Denies chest pain Denies shortness of breath Denies nausea vomiting diarrhea Physical Exam Vital Signs: Vital Signs: Last Vital Signs Temp 97.3 F 08/22/22 11:27 Pulse 70 08/22/22 11:27 Resp 18 08/22/22 11:27 BP 110/68 08/22/22 11:27 Pulse Ox 100 08/22/22 11:27 O2 Del Method 08/22/22 11:27 BMI result Body Mass Index 25.6 Const: Other: No acute distress Resp: Other: Clear to auscultation bilaterally no rales rhonchi or wheezes Cardio: Other: No S4; positive S1-S2; no S3 murmurs rubs or gallops Neuro: Other: See neurology consult Extrem: Other: No edema bilaterally Objective Data Active Medications Acetaminophen (Acetaminophen 325 Mg Tablet) 650 mg PO Q6H PRN PRN Reason: Pain, Mild (Pain Scale 1-3) Enoxaparin Sodium (Enoxaparin Sodium 40 Mg/0.4 Ml Syringe) 40 mg SUBCUT Q24H [facility] Last Admin: 08/21/22 20:41 Dose: Not Given Documented By: DAVID Non-Admin Reason: Patient Refused Methylprednisolone Sodium Succinate 1,000 mg/ Sodium Chloride 66 mls @ 66 mls/hr IV DAILY [facility] Last Infusion: 08/22/22 11:08 Dose: 0 mls/hr Documented By: ANNA Melatonin (Melatonin 3 Mg Tablet) 6 mg PO BEDTIME PRN PRN Reason: Insomnia Ondansetron HCl (Ondansetron Hcl 4 Mg/2 Ml Vial) 4 mg IVPUSH Q8H PRN PRN Reason: Nausea and Vomiting Pantoprazole Sodium (Pantoprazole Sodium 40 Mg/10 Ml Vial) 40 mg IVPUSH DAILY [facility] Last Admin: 08/22/22 09:55 Dose: 40 mg Documented By: ANNA Pharmacy Consult (Consult Rx Perform Med Rec) 1 each MISCELLANE ONCE PRN PRN Reason: Consult order Sodium Chloride (0.9 % Sodium Chloride Flush 3 Ml Syringe) 3 ml IVFLUSH QSHIFT [facility] Last Admin: 08/22/22 09:54 Dose: 3 ml Documented By: ANNA Labs CBC & Chem 7: 08/21/22 06:24 08/21/22 06:24 Assessment and Plan (1) Multiple sclerosis: Status: Acute Plan This is a 37-year-old male with a pertinent history of MS and cocaine use disorder who presents to the emergency department for evaluation of generalized weakness after stopping all MS meds 1.Acute exacerbation of multiple sclerosis (secondary to noncompliance) - continue Solu-Medrol 1 g IV daily(12/15) - willing to restart dimethyl fumarate 2. Dysphagia - improved with Solu-Medrol -follow clinically Lovenox Full Code Patient will require ongoing hospitalization for IV therapy with methylprednisolone for MS exacerbation Quality Stroke Does the patient have a stroke diagnosis?: No VTE Prior VTE?: No VTE Risk Level:: Medical - moderate - high VTE Device Contraindication: Treatment Not Indicated VTE Drug Contraindication: N/A - Med Ordered
[2022-08-23 02:55] VITALS: BP 104/55; PULSE 62; RESP 16; TEMP 37; O2SAT 99
[2022-08-23 07:56] VITALS: BP 115/64; PULSE 75; RESP 16; TEMP 37.1; O2SAT 99
[2022-08-23] MEDS: 0.9 % Sodium Chloride Flush 3 ML SYRINGE IVFLUSH ×2 (09:40→21:54)
[2022-08-23] MEDS: methylPREDNISolone Sod Succ 1,000 MG in 0.9 % Sodium Chloride 50 ML 66 MG IV (09:40)
[2022-08-23] MEDS: Pantoprazole Sodium 40 MG/10 ML VIAL IVPUSH (09:40)
--- NOTE | 2022-08-23 10:23 | P.PNIM_ITS ---
Subjective Subjective Date of Service: 08/23/22 Interval History: Continues to improve. Tolerating dimethyl fumarate as long as taking with food Review of Systems Denies chest pain Denies shortness of breath Denies nausea vomiting diarrhea Physical Exam Vital Signs: Vital Signs: Last Vital Signs Temp 98.7 F 08/23/22 07:56 Pulse 75 08/23/22 07:56 Resp 16 08/23/22 07:56 BP 115/64 08/23/22 07:56 Pulse Ox 99 08/23/22 07:56 O2 Del Method 08/23/22 07:56 BMI result Body Mass Index 25.6 Const: Other: No acute distress Resp: Other: Clear to auscultation bilaterally no rales rhonchi or wheezes Cardio: Other: No S4; positive S1-S2; no S3 murmurs rubs or gallops Neuro: Other: See neurology consult Extrem: Other: No edema bilaterally Objective Data Active Medications Acetaminophen (Acetaminophen 325 Mg Tablet) 650 mg PO Q6H PRN PRN Reason: Pain, Mild (Pain Scale 1-3) Enoxaparin Sodium (Enoxaparin Sodium 40 Mg/0.4 Ml Syringe) 40 mg SUBCUT Q24H [facility] Last Admin: 08/22/22 19:45 Dose: Not Given Documented By: DAVID Non-Admin Reason: Patient Refused Methylprednisolone Sodium Succinate 1,000 mg/ Sodium Chloride 66 mls @ 66 mls/hr IV DAILY [facility] Last Admin: 08/23/22 09:40 Dose: 66 mls/hr Documented By: WILLIAM Melatonin (Melatonin 3 Mg Tablet) 6 mg PO BEDTIME PRN PRN Reason: Insomnia Pt Own (Dimethyl (Fumarate 240 Mg)) 240 mg PO BID [facility] Last Admin: 08/23/22 09:40 Dose: 240 mg Documented By: WILLIAM Ondansetron HCl (Ondansetron Hcl 4 Mg/2 Ml Vial) 4 mg IVPUSH Q8H PRN PRN Reason: Nausea and Vomiting Pantoprazole Sodium (Pantoprazole Sodium 40 Mg/10 Ml Vial) 40 mg IVPUSH DAILY [facility] Last Admin: 08/23/22 09:40 Dose: 40 mg Documented By: WILLIAM Pharmacy Consult (Consult Rx Perform Med Rec) 1 each MISCELLANE ONCE PRN PRN Reason: Consult order Sodium Chloride (0.9 % Sodium Chloride Flush 3 Ml Syringe) 3 ml IVFLUSH QSHIFT [facility] Last Admin: 08/23/22 09:40 Dose: 3 ml Documented By: WILLIAM Labs CBC & Chem 7: 08/21/22 06:24 08/21/22 06:24 Assessment and Plan (1) Multiple sclerosis: Status: Acute Plan This is a 37-year-old male with a pertinent history of MS and cocaine use disorder who presents to the emergency department for evaluation of generalized weakness after stopping all MS meds 1.Acute exacerbation of multiple sclerosis (secondary to noncompliance) - continue Solu-Medrol 1 g IV daily(01/15) - tolerant of dimethyl fumarate if taken with food 2. Dysphagia - improved with Solu-Medrol -follow clinically Lovenox Full Code Patient will require ongoing hospitalization for IV therapy with methylprednisolone for MS exacerbation Quality Stroke Does the patient have a stroke diagnosis?: No VTE Prior VTE?: No VTE Risk Level:: Medical - moderate - high VTE Device Contraindication: Treatment Not Indicated VTE Drug Contraindication: N/A - Med Ordered
[2022-08-23 10:32] VITALS: BP 115/64; PULSE 75; O2SAT 99
[2022-08-23 11:41] VITALS: BP 112/67; PULSE 69; RESP 17; TEMP 36.6; O2SAT 99
--- NOTE | 2022-08-23 12:42 | MHC.CM.PN ---
Addendum entered by Rosalina Rosado RN 08/23/22 13:08: IMM 08/23 IN CHART PATIENT'S BROTHER WILL REPORTEDLY TRANSPORT PATIENT HOME HE IS AWARE THAT TRANSPORT CAN BE ARRANGED IF BROTHER IS UNABLE TO TRANSPORT Original Note: PLAN IS HOME FRIDAY 08/24 [facility] MADE AWARE
[2022-08-23 16:00] VITALS: BP 119/71; PULSE 67; RESP 18; TEMP 36.4; O2SAT 99
[2022-08-23 20:00] VITALS: BP 134/63; PULSE 56; RESP 18; TEMP 36.6; O2SAT 99
[2022-08-24] VITALS: BP 109/64; PULSE 60; RESP 18; TEMP 36.4; O2SAT 99
--- NOTE | 2022-08-24 01:37 | PC.NURSE ---
pt refused Lovenox at bedtime. This nurse educated the pt on the importance of taking Lovenox and how it prevents blood clots. The pt still refused after the teaching. The pt also refused to put on his sequential stockings. This nurse notified the hospitalist Dr. Robe Fleming about the pt's refusal of the Lovenox and sequential stockings.
[2022-08-24 03:54] VITALS: BP 107/64; PULSE 61; RESP 18; TEMP 36.4; O2SAT 99
[2022-08-24 08:00] VITALS: BP 123/72; PULSE 59; RESP 18; TEMP 36.2; O2SAT 100
[2022-08-24] MEDS: methylPREDNISolone Sod Succ 1,000 MG in 0.9 % Sodium Chloride 50 ML 66 MG IV (10:19)
[2022-08-24] MEDS: 0.9 % Sodium Chloride Flush 3 ML SYRINGE IVFLUSH ×3 (10:20→19:55)
[2022-08-24 11:17] VITALS: BP 117/67; PULSE 65; RESP 18; TEMP 36.4; O2SAT 99
--- NOTE | 2022-08-24 14:23 | HO.PM.IMPN ---
Subjective Subjective Date of Service: 08/24/22 Interval History: Continues to improve. Still with mild swallowing issues with certain food Review of Systems Denies chest pain Denies shortness of breath Denies nausea vomiting diarrhea Physical Exam Vital Signs: Vital Signs: Last Vital Signs Temp 97.5 F 08/24/22 11:17 Pulse 65 08/24/22 11:17 Resp 18 08/24/22 11:17 BP 117/67 08/24/22 11:17 Pulse Ox 99 08/24/22 11:17 O2 Del Method 08/24/22 11:17 BMI result Body Mass Index 25.6 Const: Other: No acute distress Resp: Other: Clear to auscultation bilaterally no rales rhonchi or wheezes Cardio: Other: No S4; positive S1-S2; no S3 murmurs rubs or gallops Neuro: Other: See neurology consult Extrem: Other: No edema bilaterally Objective Data Active Medications Acetaminophen (Acetaminophen 325 Mg Tablet) 650 mg PO Q6H PRN PRN Reason: Pain, Mild (Pain Scale 1-3) Enoxaparin Sodium (Enoxaparin Sodium 40 Mg/0.4 Ml Syringe) 40 mg SUBCUT Q24H [facility] Last Admin: 08/23/22 21:50 Dose: Not Given Documented By: FADY Non-Admin Reason: Patient Refused Methylprednisolone Sodium Succinate 1,000 mg/ Sodium Chloride 66 mls @ 66 mls/hr IV DAILY [facility] Last Infusion: 08/24/22 11:41 Dose: 0 mls/hr Documented By: ANNA Melatonin (Melatonin 3 Mg Tablet) 6 mg PO BEDTIME PRN PRN Reason: Insomnia Pt Own (Dimethyl (Fumarate 240 Mg)) 240 mg PO BID [facility] Last Admin: 08/24/22 08:39 Dose: 240 mg Documented By: ANNA Ondansetron HCl (Ondansetron Hcl 4 Mg/2 Ml Vial) 4 mg IVPUSH Q8H PRN PRN Reason: Nausea and Vomiting Pharmacy Consult (Consult Rx Perform Med Rec) 1 each MISCELLANE ONCE PRN PRN Reason: Consult order Sodium Chloride (0.9 % Sodium Chloride Flush 3 Ml Syringe) 3 ml IVFLUSH QSHIFT [facility] Last Admin: 08/24/22 10:20 Dose: 3 ml Documented By: ANNA Labs CBC & Chem 7: 08/21/22 06:24 08/21/22 06:24 Assessment and Plan (1) Multiple sclerosis: Status: Acute Plan This is a 37-year-old male with a pertinent history of MS and cocaine use disorder who presents to the emergency department for evaluation of generalized weakness after stopping all MS meds 1.Acute exacerbation of multiple sclerosis (secondary to noncompliance) - continue Solu-Medrol 1 g IV daily(02/14)... Will dose 1 additional day - tolerant of dimethyl fumarate if taken with food 2. Dysphagia - improved with Solu-Medrol -follow clinically Lovenox Full Code Patient will require ongoing hospitalization for IV therapy with methylprednisolone for MS exacerbation Quality Stroke Does the patient have a stroke diagnosis?: No VTE Prior VTE?: No VTE Risk Level:: Medical - moderate - high VTE Device Contraindication: Treatment Not Indicated VTE Drug Contraindication: N/A - Med Ordered
[2022-08-24 15:33] VITALS: BP 110/63; PULSE 71; RESP 16; TEMP 36.8; O2SAT 96
[2022-08-24 18:46] VITALS: BP 117/61; PULSE 65; RESP 16; TEMP 36.6; O2SAT 99
[2022-08-25] VITALS: BP 118/64; PULSE 66; RESP 18; TEMP 36.6; O2SAT 97
[2022-08-25 04:00] VITALS: BP 114/63; PULSE 63; RESP 18; TEMP 36.4; O2SAT 100
--- NOTE | 2022-08-25 04:39 | PC.NURSE ---
Pt refused his Lovenox at bedtime. This nurse educated the pt the importance of taking this med and how it prevents blood clots. The pt refused his Lovenox and sequential stockings. This nurse notified MD Nagel about the pt refusing his Lovenox and sequential stockings.
[2022-08-25 07:39] VITALS: BP 136/65; PULSE 67; RESP 18; TEMP 36.8; O2SAT 97
[2022-08-25] MEDS: 0.9 % Sodium Chloride Flush 3 ML SYRINGE IVFLUSH (09:10)
[2022-08-25] MEDS: methylPREDNISolone Sod Succ 1,000 MG in 0.9 % Sodium Chloride 50 ML 66 MG IV (09:10)
[2022-08-25 11:56] VITALS: BP 137/88; PULSE 61; RESP 19; TEMP 36.6; O2SAT 99
--- NOTE | 2022-08-25 12:33 | P.F2F_ITS ---
Service Date Service Date: 08/25/22 Encounter Date of encounter: 08/25/22 Reasons for Services Signs and symptoms assessed: MS Reason for physical therapy: home safety and mobility, therapeutic exercises, gait/transfer training, assess need for DME, ADL training and energy conservation MD Overseeing Care: Nicole Awad Homebound: Leaving the home is medically contraindicated at this time without the asist of a device and/or another person due th the listed conditions above and below. Reason homebound: weakness related to hospital stay Certification: Based on the above findings, I certify that this patient is confined to the home and needs intermittent correction care, physical therapy and/or speech therapy, or continues to need occupational therapy. The patient is under my care, and I have initiated the establishment of the plan of care. The patient will be followed by a physician who will periodically review the plan of care.
--- NOTE | 2022-08-25 12:38 | PM.DS ---
DS: Providers Provider Date of Service: 08/25/22 Date of admission: 08/20/22 20:32 Date of discharge: 08/25/22 Primary care physician: Nicole Awad NP Consults: 08/20/22 20:33 Consult to Neurology Routine Consulting Provider: Keya Huber Reason for consultation: Exacerbation of MS Has provider been notified: No DS: Diagnosis Discharge Diagnosis (1) Multiple sclerosis: Status: Acute DS: Summary Hospital Course Hospital Course: Per admission H+P by hospitalist Dr Nagel, 08/20/22: This is a 37-year-old male with a pertinent history of MS and cocaine use disorder who presents to the emergency department for evaluation of generalized weakness.? Patient states since being discharged from the hospital about 3-4 months ago, he stopped taking his medicines for MS.? He discontinued dimethyl fumarate and baclofen as he wanted to try a natural approach for his disease.? He began taking multivitamins and fish oil to control this disease. Patient states since last he has been having increasing weaknes in his extremities.? Also has associated spasticity of left hand.? He endorses difficulty swallowing but no at an aphasia.? He denies fever, chills, chest discomfort, palpitations, shortness of breath, abdominal pain, changes in urinary or bowel habits. Endorses vision changes. He restarted dimethyl fumarate about 2 days ago for his weakness but did not notice any improvement.? He is followed by Dr. Huber, neurology Per neurology dietitian consultant Dr Huber: 37 years old man who probably suffered from a variant of demyelinating disease.? Though he carried diagnosis of multiple sclerosis overall pattern was somewhat different.? Neuromyelitis optica was a possibility but but clinical features were not typical of that either and antibody test was negative.? For now my recommendation is to treat him for few days of Solu-Medrol.? He should go back to his medicine for and if he would not be able to tolerate it, he should see me as an outpatient to discuss alternate options He was admitted to the medical-surgical floor and recieved 5 days of high-dose IV methylprednisolone with improvement in his weakness and dysphagia. He was seen by PT. He was counseled to resume dimethyl fumarate. He will transfer neurologic care from [facility] to [facility] due to transportation issues. He should follow-up with his primary care provider within 1 week. He was discharged home with VNA services for home PT. Time Spent with Patient Time attestation: Total time spent providing and/or coordinating discharge services: Discharge coordination time: Greater than 30 minutes Quality: Safe Use of Opioids Does Pt have an Active Cancer Diagnosis on the Problem List?: No Quality: Stroke Does the patient have a stroke diagnosis?: No Physical Exam Vital Signs: Vital Signs: Last Vital Signs Temp 97.9 F 08/25/22 11:56 Pulse 61 08/25/22 11:56 Resp 19 08/25/22 11:56 BP 137/88 08/25/22 11:56 Pulse Ox 99 08/25/22 11:56 O2 Del Method 08/25/22 11:56 O2 Flow Rate 99 08/24/22 15:33 BMI result Body Mass Index 25.6 Gen: in no acute distress HEENT: sclera anicteric, moist mucus membranes Neck: supple Lungs: clear to auscultation bilaterally Heart: regular rate and rhythm, no murmurs Abd: soft, non-tender, non-distended Ext: no edema Skin: warm/well-perfused Neuro: alert and oriented x3, mild spasticity + hyper-reflexia Psych: appropriate affect DS: Data Data Completed and Pending Completed studies during hospitalization [Text1]: Laboratory Results WBC 9.9 X10*3/uL (4.8-10.8) 08/21/22 06:24 RBC 5.22 X10*6/uL (4.60-5.80) 08/21/22 06:24 Hgb 13.2 g/dl (14.0-18.0) L 08/21/22 06:24 Hct 40.5 % (42.0-52.0) L 08/21/22 06:24 MCV 77.6 fL (80.0-98.0) L 08/21/22 06:24 MCH 25.3 pg (27.0-33.0) L 08/21/22 06:24 MCHC 32.6 g/dl (31.0-36.0) 08/21/22 06:24 RDW 13.4 % (11.0-16.0) 08/21/22 06:24 Plt Count 210 X10*3/uL (160-400) 08/21/22 06:24 MPV 12.3 fL (9.4-12.4) 08/21/22 06:24 Immature Gran % (Auto) 0.3 % (0.0-0.4) 08/21/22 06:24 Neut % (Auto) 94.3 % (45-73) H 08/21/22 06:24 Lymph % (Auto) 4.6 % (20-40) L 08/21/22 06:24 [place]once % (Auto) 0.7 % (2-11) L 08/21/22 06:24 Eos % (Auto) 0.0 % (0-4) 08/21/22 06:24 Baso % (Auto) 0.1 % (0-2) 08/21/22 06:24 Lymph # (Auto) 0.5 X10*3/uL (1.2-4.9) L 08/21/22 06:24 Ponce # (Auto) 0.1 X10*3/uL (0.1-1.2) 08/21/22 06:24 Eos # (Auto) 0.0 X10*3/uL (0.0-0.4) 08/21/22 06:24 Baso # (Auto) 0.0 X10*3/uL (0.0-0.2) 08/21/22 06:24 Abs Immat Gran (auto) 0.03 X10*3/uL (0.00-0.03) 08/21/22 06:24 Absolute Neuts (auto) 9.4 x10*3/uL (2.0-8.3) H 08/21/22 06:24 Absolute Nucleated RBC 0.000 X10*3/uL (0.0-0.012) 08/21/22 06:24 Nucleated RBC % (auto) 0.0 /100WBC (0.0-0.2) 08/21/22 06:24 Smear Tech's Comments VERIFIED 08/21/22 06:24 Sodium 140 mmol/L (135-145) 08/21/22 06:24 Potassium 4.0 mmol/L (3.3-5.1) 08/21/22 06:24 Chloride 100 mmol/L (96-108) 08/21/22 06:24 Carbon Dioxide 25 mmol/L (22-29) 08/21/22 06:24 Anion Gap 19 (12-20) 08/21/22 06:24 BUN 13 mg/dL (9-16) 08/21/22 06:24 Creatinine 0.72 mg/dL (0.5-1.4) 08/21/22 06:24 Estim Creat Clear Calc 134.5 08/21/22 06:24 Estimated GFR > 60 08/21/22 06:24 Random Glucose 137 mg/dL (60-115) H 08/21/22 06:24 Calcium 9.9 mg/dL (8.4-10.2) 08/21/22 06:24 Total Bilirubin 0.5 mg/dL (0.0-1.0) 08/20/22 19:26 AST 14 U/L (5-37) 08/20/22 19:26 ALT 8 U/L (0-40) 08/20/22 19:26 Alkaline Phosphatase 58 U/L (39-117) 08/20/22 19:26 C-Reactive Protein 0.13 mg/dL (< or = 0.50) 08/20/22 19:26 Total Protein 7.3 g/dL (6.5-8.0) 08/20/22 19:26 Albumin 4.6 g/dL (3.5-5.0) 08/20/22 19:26 Urine Color Yellow 08/21/22 00:13 Urine Appearance Clear 08/21/22 00:13 Urine pH 7.0 (5.0-9.0) 08/21/22 00:13 Ur Specific [place] 1.020 (1.005-1.025) 08/21/22 00:13 Urine Protein Negative mg/dL (Neg-Trace) 08/21/22 00:13 Urine Glucose (UA) Negative mg/dL (Negative) 08/21/22 00:13 Urine Ketones 15 mg/dL (Negative) 08/21/22 00:13 Urine Blood Negative (Negative) 08/21/22 00:13 Urine Nitrite Negative (Negative) 08/21/22 00:13 Ur Leukocyte Esterase Negative (Negative) 08/21/22 00:13 Urine Opiates Screen Not Detected (Not Detect) 08/21/22 00:13 Urine Fentanyl Screen Not Detected (Not Detect) 08/21/22 00:13 Ur Barbiturates Screen Not Detected (Not Detect) 08/21/22 00:13 Ur Phencyclidine Scrn Not Detected (Not Detect) 08/21/22 00:13 Ur Amphetamines Screen Not Detected (Not Detect) 08/21/22 00:13 U Benzodiazepines Scrn Not Detected (Not Detect) 08/21/22 00:13 Urine Cocaine Screen Not Detected (Not Detect) 08/21/22 00:13 U Marijuana (THC) Screen POSITIVE (Not Detect) H 08/21/22 00:13 COVID-19 ([facility]) Negative (Negative) 08/20/22 17:58 COVID-19 Clin Com See Note 08/20/22 17:58 Discharge Plan Discharge Anticipated Discharge Date/Time: 08/25/22 12:33 Patient Disposition: Home Health Service Discharge Diagnosis: MS flare Referrals: Nicole Awad NP [Primary Care Provider] - 1 Week Keya Huber MD [Physician] - 1 Week Discharge Medications: Continued cholecalciferol (vitamin D3) 50 mcg (2,000 unit) capsule 1 cap PO DAILY dimethyl fumarate 240 mg capsule,delayed release(DR/EC) 240 mg PO BID multivitamin Tablet 1 tab PO DAILY omega 6-mty-foj-fish oil 300 mg (120 mg- 180mg)-1,000 mg capsule 1 cap PO DAILY Discharge Orders: Discharge Order (Routine); Ordered 08/25/22 Ordered By: Yulissa Bustos Diet: Advance to usual diet Activity on Discharge: As tolerated Stand Alone Forms: Patient Portal Discharge page Care Plan Goals: MS treatment Health Concerns: MS Plan of Treatment: continue [facility] transfer Neurology care to Dr Huber at [facility] Address: [address] [place] [address] [address], [place] [address] Please follow up with your primary care doctor within 1 week. Return to the hospital if you experience recurrent or worsening symptoms. Assessment: See Discharge Summary.
--- NOTE | 2022-08-25 14:23 | MHC.CM.PN ---
CM MET WITH PT AND BROTHER AT BEDSIDE PT REPORTS HE KNOWS HE IS SUPPOSED TO GO TO STR BUT FEELS HE NEEDS TO GO HOME HE REPORTS HE NEEDS TO GO HOME TO SHOWER AND GET THINGS CM EXPLAINED HE WOULD NOT BE ABLE TO GO TO STR IF HE WENT HOME FIRST HE AND HIS BROTHER REPORT UNDERSTANDING THAT HE WOULD NEED A NEW REFERRAL IF HE FEELS HE NEEDS TO GO TO STR AFTER GOING HOME HE IS AWARE HE WOULD NEED TO CALL HIS PCP OR RETURN TO THE ED THEY ALSO DECLINE CM OFFER TO SET UP HOME PT SAYING THEY DO NOT DO ANYTHING FOR HIM PT WILL DC HOME TODAY WITH RESUMPTION OF [facility] BROTHER/[facility] TO TRANSPORT
== END 2022-08-25 14:34 | disposition home health service (06) | DRG 60 ==
LOC: HO.ED 17:28 → HO.EDOVER 22:26 → HO.S3 08-21 18:57
PROVIDERS: Admitting Provider Student in an Organized Health Care Education/Training Program; Emergency Provider Internal Medicine; PCP Registered Nurse Community Health; Visit Provider Family Medicine
DX: G35 Multiple sclerosis (principal); F10.11 Alcohol abuse, in remission; R13.10 Dysphagia, unspecified; F14.11 Cocaine abuse, in remission; Z20.822 Contact with and (suspected) exposure to COVID-19; Z91.14 Patient's other noncompliance with medication regimen; Z87.891 Personal history of nicotine dependence; Z79.899 Other long term (current) drug therapy
CPT/HCPCS: 36415; 80048; 80053; 80307; 81003; 85025; 86140; 87635; 97116; 97162; 97530; 99218; 99285; J2930

== ENCOUNTER 2022-08-26 12:29 | Emergency (ER) | payer OTHER, SELFPAY ==
[2022-08-26 12:37] VITALS: BP 140/80; PULSE 72; O2SAT 98
[2022-08-26 12:38] VITALS: BP 139/75; PULSE 72; RESP 19; TEMP 36.6; O2SAT 98; BMI 24.3
--- NOTE | 2022-08-26 13:01 | ED.GENADULT ---
HPI - General Adult General Chief complaint: General Medical Stated complaint: DIFF AMB,W/C BOUND, NO INJURY PER EMS Time Seen by Provider: 08/26/22 13:01 Source: patient and EMS Mode of arrival: EMS Limitations: no limitations History of Present Illness HPI narrative: Patient is a 37 year old assigned male at with a history of MS presenting to the emergency department today requesting STR placement. Patient states that he was just discharged from here and they recommended short term rehab but he had to go home first to get some things done, now he has those things taken care of so he would like to go to short term rehab. Patient denies any dizziness, lightheadedness, abdominal pain, nausea, vomiting, fever, chills, blurry vision, double vision, loss of vision, chest pain, difficulty breathing, shortness of breath, back pain, night sweats, pain with urination, increased urinary frequency, increased urinary urgency, blood in his urine or stool, syncope or a near syncopal episode, recent trauma or falls, bowel incontinence, bladder incontinence, bowel retention, bladder retention, or any other complaints at this time. Severity: mild Relieving factors: none Exacerbating factors: none Associated symptoms: denies other symptoms Treatments prior to arrival: none Related Data Home Medications Medication Instructions Recorded Confirmed cholecalciferol (vitamin D3) 50 1 cap PO DAILY 09/18/21 08/26/22 mcg (2,000 unit) capsule dimethyl fumarate 240 mg 240 mg PO BID 09/18/21 08/26/22 capsule,delayed release multivitamin 1 tab PO DAILY 08/20/22 08/26/22 omega-3 300 mg-dha 120 mg-epa 180 1 cap PO DAILY 08/20/22 08/26/22 mg-fish oil 1,000 mg capsule Allergies Allergy/AdvReac Type Severity Reaction Status Date / Time No Known Allergies Allergy Verified 05/02/22 14:35 [No Known Allergies*] Review of Systems Constitutional: Constitutional: Reports no additional constitutional complaints, Denies chills, Denies fever(s) and Denies night sweats Eyes: Eyes: Reports no additional eye complaints, Denies blurry vision, Denies change in vision, Denies diplopia, Denies eye discharge, Denies loss of vision and Denies eye pain ENT: Denies dizziness Cardiovascular: Cardiovascular: Reports no additional cardiovascular complaints, Denies chest pain, Denies lightheadedness, Denies Loss of Consciousness and Denies dyspnea Respiratory: Respiratory: Reports no additional respiratory complaints and Denies dyspnea Gastrointestinal: Gastrointestinal: Reports no additional gastrointestinal complaints, Denies abdominal pain, Denies melena, Denies hematochezia, Denies change in bowel habits and Denies change in stool character Genitourinary: Genitourinary: Reports no additional male genitourinary complaints, Denies hematuria, Denies oliguria, Denies difficulty urinating, Denies dysuria, Denies urinary frequency, Denies urinary hesitancy, Denies urinary incontinence and Denies urinary urgency Musculoskeletal: Musculoskeletal: Reports no additional musculoskeletal complaints, Denies numbness and Denies tingling Neurologic: Denies dizziness, Denies loss of vision, Denies numbness and Denies tingling Psychiatric: Psychiatric: Reports no additional psychiatric complaints Endocrine: Endocrine: Reports no additional endocrine complaints Hematologic/Lymphatic: Hematologic/Lymphatic: Reports no additional hematologic/lymphatic complaints Allergic/Immunologic: Allergic/Immunologic: Reports no additional allergic/immunologic complaints [facility] Past Medical History Attestation statement: The following information was validated with the patient. Source: old records reviewed Medical History Headache Microcytic anemia Multiple sclerosis Neuromyelitis optica spectrum disorder Surgical History H/O hernia repair Family History Family History Other No family history of coronary artery disease Social History Social History Household Members: Family Housing: Apartment 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 have visiting nurse or other home services: Yes (unattended ground sensor specialist) Alcohol intake: never Patient Tobacco Use Status: Former Tobacco user Tobacco use type: Cigarette Smoked in Last 30 Days: No Use of substances other than those prescribed or required for medical reasons: No Substance Use Type: Marijuana Advance Directives: Yes Advance Directives on File: Yes Advance Directives Date on File: 08/21/22 service: No Current occupational status: disabled Physical Exam ED Vital Signs: Vital Signs - 24 hr 08/26/22 12:38 08/26/22 15:36 Temperature 98 F 97.5 F Pulse Rate 72 66 Respiratory Rate 19 17 Blood Pressure 139/75 136/82 Pulse Oximetry 98 99 Oxygen Delivery Method Room Air BMI result Body Mass Index 24.3 Const General: cooperative, no acute distress, alert and awake Nutritional Appearance: well nourished Orientation/consciousness: patient oriented x3 Limitations: no limitations HENMT Head: Yes normal to inspection and Yes atraumatic Ears: hearing grossly normal bilaterally and external ears normal General nose exam: Normal external nose present, no nasal discharge noted and no epistaxis Face and sinus: Yes normal facial exam, No abrasion and No laceration Mouth: Normal oral and palatal mucosa present, no drooling and no muffled voice Eyes General: appearance normal, both eyes and all related structures Periorbital: periorbital findings normal Eyelids: Yes eyelids normal Conjunctivae: conjunctivae normal Pupils: Equal, round and reactive pupils present EOM: EOMs intact bilaterally Neck Neck: Yes normal visual inspection, Yes full ROM and Yes no lymphadenopathy Chest Chest palpation & inspection: normal inspection of the chest Resp Effort & Inspection: normal respiratory effort and able to speak in complete sentences Auscultation: clear to auscultation bilaterally Cardio Rate: regular rate Rhythm: regular rhythm GI Inspection: Yes normal to inspection Neuro General: patient oriented x3 and moves all extremities Cranial nerves: Yes Equal, round and reactive pupils present Cognition (Neuro): normal cognition Motor exam (neuro): 5/5 motor strength present throughout Sensory Exam: Normal double simultaneous stimulation for sensation Coordination: [id number] test normal Extrem General: Yes normal to inspection, Yes full ROM and Yes capillary refill normal Psych Appearance: grossly normal Mental Status: mental status grossly normal Affect: normal affect Attitude: cooperative Thought process: Normal thought process present Thought content: Normal thought content present Insight: Good insight present (Psych) Medical Decision Making MDM Narrative Medical decision making narrative: Patient is a 37 year old assigned male at with a history of MS presenting to the emergency department today requesting STR placement. Patient's physical exam was unremarkable. I explained my physical exam findings to the patient. I answered all questions asked by the patient. Patient is pending physical therapy evaluation for STR placement. Medical Records Medical records reviewed: Yes I reviewed the patient's medical records. Lab Data Lab results reviewed: Yes I reviewed the patient's lab results. Labs: Lab Results 08/26/22 Range/Units 13:43 COVID-19 ([facility]) Invalid (Negative) COVID-19 Clin Com See Note Discharge Plan Discharge Clinical Impression: Multiple sclerosis Patient Disposition: Still a Patient Prescriptions: No Action cholecalciferol (vitamin D3) 50 mcg (2,000 unit) capsule 1 cap PO DAILY dimethyl fumarate 240 mg capsule,delayed release(DR/EC) 240 mg PO BID multivitamin Tablet 1 tab PO DAILY omega 5-zjh-qad-fish oil 300 mg (120 mg- 180mg)-1,000 mg capsule 1 cap PO DAILY Print Language: Bulgarian
--- NOTE | 2022-08-26 14:44 | PHA.MEDREC ---
Pharmacy Consult ? Medication Reconciliation Pharmacy has completed the medication reconciliation. Patient just discharged from [facility] on 08/25/22. Med rec completed by [facility] on admission. Current med rec done by discharge summary. Tereza Escamilla, MehulD
[2022-08-26 14:50] LABS: COVID-19 Test Invalid (Negative); IDNOW Serial# BCCEAD1C
--- NOTE | 2022-08-26 15:09 | MHC.CM.ED ---
Addendum entered by Sharee Shore 08/26/22 15:14: Patient should be active with [facility]. Referral made via [facility]port. Original Note: Received case management consult from Izabella SAHU. Patient was [place] [facility] [place]. Case management recommended at that time. Patient decided to go to home with his brother. Patient returned to the ER due to not being able to care for himself. Work up and physical therapy eval is pending. Patient received 2 Pfizer vaccines. Not boosted. Referral broadcasted in Careport to all facilities contracted with patient's insurance at this time only because beds have been difficult to find locally. Continue to monitor for d/c needs.
[2022-08-26 15:36] VITALS: BP 136/82; PULSE 66; RESP 17; TEMP 36.4; O2SAT 99
--- NOTE | 2022-08-26 15:50 | PC.NURSE ---
patient was brought over from the ed to bed 11, this nurse resumed care for patient at 1530, patient currently a&ox3, denying pain, vss, lungs clear, call villar within reach, will continue to monitor
--- NOTE | 2022-08-26 15:54 | PC.NURSE ---
pt at bedside
[2022-08-26 16:49] VITALS: BP 136/82; PULSE 66; O2SAT 99
--- NOTE | 2022-08-26 18:56 | PC.NURSE ---
patient a&ox3, home health care case manager at bedside speaking with patient. pt has foely cath to leg bag pt/draining clear yellow urine, will obtain covid swab, vitals have been stable, call villar within reach, will continue to monitor.
[2022-08-26 19:56] LABS: COVID-19 Test Negative (Negative); IDNOW Serial# 16C4AD1C
[2022-08-26 21:19] VITALS: BP 105/56; PULSE 78; RESP 17; TEMP 36.5; O2SAT 99
--- NOTE | 2022-08-26 21:28 | MHC.CM.ED ---
CM met with patient. PT recommending Acute Rehab. Pt has been to [facility] in the past. Pt would like Acute Rehab, with [facility] being his first choice. PCP is Nicole Awad, however she is leaving practice at [facility] and pt has appointment on 08/29 with new PCP. Does not remember the name. HCP is Romnilay Gilman, pt brother. Rom does not have a phone, and the patient contacts his brother via FB. Pt has MS and has a rollator walker, cane and Wheelchair, but primarily uses a wheelchair. Pt was transferring independently and his hoping PT will help with with strengthening. He lives with his parents. Pfizer x2. Referrals placed at 3 Acute facilities, with [facility] as first choice. STR were already place, and no bed offers have been obtained. CM to follow for discharge planning.
[2022-08-26] MEDS: Melatonin 3 MG TABLET 6 MG PO (22:47)
[2022-08-27 06:00] VITALS: BP 109/67; PULSE 68; RESP 16; TEMP 36.3; O2SAT 98
--- NOTE | 2022-08-27 06:13 | PC.NURSE ---
Pt resting comfortably
--- NOTE | 2022-08-27 07:41 | PC.NURSE ---
patient change, complete bed change relaxing watching TV.
[2022-08-27] MEDS: Multivitamin TABLET 1 TAB PO (09:59)
[2022-08-27] MEDS: Cholecalciferol (Vitamin D3) 25 MCG TABLET 50 MCG PO (09:59)
--- NOTE | 2022-08-27 11:14 | MHC.CM.ED ---
Patient remains in ER. Physical therapy is recommending acute rehab. [facility] is 1st choice. All 3 acute rehabs requesting occupational therapy eval. OT eval completed and uploaded to [facility] to Srinivasan Bender and Tamara. Continue to monitor for d/c needs.
[2022-08-27 11:23] VITALS: BP 112/68; PULSE 61; RESP 14; TEMP 37.3; O2SAT 94
--- NOTE | 2022-08-27 13:50 | MHC.CM.ED ---
Received telephone call from Yoanna at [facility]. She doesn't feel patient is appropriate for acute rehab. She only received OT eval, not PT eval. T/W explained patient is appropriate for acute rehab. PT eval sent via fax. Yoanna will re-evaluate and get back to . Continue to monitor for d/c needs.
[2022-08-27 14:43] VITALS: BP 112/68; PULSE 61; O2SAT 94
[2022-08-27 14:58] VITALS: BP 117/80; PULSE 78; RESP 14; TEMP 36.2; O2SAT 100
--- NOTE | 2022-08-27 15:08 | PC.NURSE ---
Pt resting comfortably on hospital bed at this time. Pt states he has no pain and is just finishing up lunch
--- NOTE | 2022-08-27 20:21 | PC.NURSE ---
Pt night medication Dimethyl Fumarate unavailable in ED, called pharmacy them to bring it down est time 30 minutes
[2022-08-27] MEDS: LORazepam 1 MG TABLET PO (21:13)
[2022-08-27] MEDS: Melatonin 3 MG TABLET 6 MG PO (21:14)
--- NOTE | 2022-08-27 22:16 | PC.NURSE ---
Placed second call to pharmacy regarding Dimethyl Fumarate, medication late, pt aware. Pharmacy bringing it down
--- NOTE | 2022-08-27 23:40 | PC.NURSE ---
Pt resting on bed at this time. This RN emptied pt cath bag, 400ml. Pt states he is getting ready for bed at this time
[2022-08-27 23:56] VITALS: BP 116/72; PULSE 81; RESP 16; TEMP 36.6; O2SAT 98
--- NOTE | 2022-08-28 04:28 | PC.NURSE ---
this rn visualized pt sleeping quietly at this time
[2022-08-28 06:17] VITALS: BP 116/78; PULSE 82; RESP 16; TEMP 36.8; O2SAT 97
--- NOTE | 2022-08-28 08:25 | PC.NURSE ---
Patient refused multivitmain and vitamin D3. This RN provided patient education to the patient regarding the importance of taking medications
--- NOTE | 2022-08-28 12:35 | PC.NURSE ---
pt soiled himself while on recliner. this tech helped change the pad and hospital gown. pt is now comfortable, no signs of distress.
[2022-08-28 13:17] VITALS: BP 104/65; PULSE 79; RESP 14; TEMP 36.4; O2SAT 99
--- NOTE | 2022-08-28 13:52 | MHC.CM.ED ---
Patient remains in ER. Received telephone call from Yoanna at [facility]. She still doesn't feel patient qualifies for acute rehab. Case will be sent to their medical office receptionist assistant for review. John at [facility] aware. Continue to monitor for d/c needs.
[2022-08-28 16:09] VITALS: BP 116/68; PULSE 111; RESP 16; TEMP 36.4; O2SAT 99
--- NOTE | 2022-08-28 16:43 | PC.NURSE ---
Ailyn aware of patients HR
[2022-08-28 22:00] VITALS: BP 123/80; PULSE 74; RESP 16; TEMP 37; O2SAT 100
--- NOTE | 2022-08-28 22:03 | PC.NURSE ---
THIS PCT ASSUMED CARE OF PT AT 2200 ,PT HAD TURKEY SANDWICH ,AND SOME WATER FOR SNACK ,CALL [facility] WITHIN REACH .
--- NOTE | 2022-08-29 00:37 | PC.NURSE ---
0000 rounding done ,pt asleep ,call villar within reach .
--- NOTE | 2022-08-29 02:18 | PC.NURSE ---
0200 rounding done pt asleep ,mika catheter is on ,call villar within reach
--- NOTE | 2022-08-29 04:36 | PC.NURSE ---
0400 rounding done ,pt sleeping ,call villar within reach .
[2022-08-29 06:00] VITALS: BP 104/64; PULSE 73; RESP 16; TEMP 36.6; O2SAT 98
--- NOTE | 2022-08-29 06:27 | PC.NURSE ---
0600 rounding done pt awake ,vs taken ,[place] cathether output 900 ml ,pt call villar within reach .
--- NOTE | 2022-08-29 08:24 | PC.NURSE ---
Pt alert and oriented, resp even and unlabored. Offering no complaints at this time.
[2022-08-29 08:26] VITALS: BP 132/76; PULSE 106; RESP 14; TEMP 36.4; O2SAT 99
[2022-08-29 10:06] VITALS: BP 132/76; PULSE 106; O2SAT 99
--- NOTE | 2022-08-29 12:41 | PC.NURSE ---
Pt out of bed, sitting in recliner
--- NOTE | 2022-08-29 12:51 | MHC.CM.ED ---
Addendum entered by Sharee Shore 08/29/22 14:55: Met with patient and infant toddler lead teacher. Patient aware [facility] will not authorize acute rehab and that referral has been broadcasted within 50 miles to all senior care facilities contracted with patient's insurance. Patient verbalized understanding and agreeable. Original Note: Received notification from Yoanna at [facility]. investor relations director declined acute rehab level of care. No bed offers made for SNF within 20 miles. Referral expanded to 50 miles. Continue to monitor for d/c needs.
[2022-08-29 14:40] VITALS: BP 122/72; PULSE 93; RESP 20; TEMP 36.3; O2SAT 100
[2022-08-29 22:26] VITALS: BP 122/71; PULSE 84; TEMP 36.5; O2SAT 100
[2022-08-30 06:13] VITALS: BP 118/68; PULSE 102; TEMP 37; O2SAT 96
[2022-08-30 07:23] VITALS: BP 120/73; PULSE 92; RESP 12; TEMP 36.8; O2SAT 98
--- NOTE | 2022-08-30 08:33 | PC.NURSE ---
pt a/o x 4 no sob/wicho noted speaks in full sentences. lungs slight diminished all lobes. heart sounds - regular. abd soft and non-tender. bs + x 4 quads. pt refused breakfast.
--- NOTE | 2022-08-30 08:36 | PC.NURSE ---
pt states that he wants to leave because we are not doing anything for him and he is unable to sleep at night. mllp (abena aware).
--- NOTE | 2022-08-30 08:54 | MHC.CM.ED ---
Addendum entered by Sharee Shore 08/30/22 09:17: Received notification from Elin REDDY that patient's brother will transport him home. Original Note: Patient remains in Er. Patient states he wants to go home. Patient is active with [facility] for PT and OT. These services will resume. Patient wants to transition to outpatient physical therapy at [facility]. Patient is active with [facility]. Spoke with Winifred at [facility]. Winifred will make patient's skin care specialist aware. Wheelchair van will be booked. Patient, Elin REDDY and Divya SAHU aware. Continue to monitor for d/c needs.
--- NOTE | 2022-08-30 09:45 | PC.NURSE ---
pt's own/personal med returned to him.
[2022-08-30 10:52] VITALS: BP 135/88; PULSE 94; RESP 12; TEMP 36.6; O2SAT 100
== END 2022-08-30 11:18 | disposition home or self-care (01) ==
PROVIDERS: Physician Assistant Medical; Emergency Provider Emergency Medicine Emergency Medical Services; PCP Registered Nurse Community Health
DX: G35 Multiple sclerosis (principal); Z99.3 Dependence on wheelchair; Z20.822 Contact with and (suspected) exposure to COVID-19
CPT/HCPCS: 87635; 97110; 97112; 97162; 97166; 97530; 99284; 99285

== ENCOUNTER 2022-10-23 13:31 | Inpatient (IN) | payer OTHER, SELFPAY ==
--- NOTE | 2022-10-23 | ECG_ITS ---
Test Reason : WEAKNESS Blood Pressure : / mmHG Vent. Rate : 113 BPM Atrial Rate : 113 BPM P-R Int : 140 ms QRS Dur : 078 ms QT Int : 314 ms P-R-T Axes : 062 028 074 degrees QTc Int : 430 ms Sinus tachycardia Otherwise normal ECG When compared with ECG of 20-JAN-2022 21:50, Vent. rate has increased BY 42 BPM Referred By: Generic ED Physician Electronically Signed By:Jim Wong
--- NOTE | ~2022-10-23 | CT_ITS ---
EXAMINATION: CT HEAD WITHOUT CONTRAST CLINICAL INFORMATION: Right lower extremity numbness COMPARISON: Head CT 05/02/2022, brain MRI 11/01/2021 TECHNIQUE: Imaging was performed from the skull base to vertex without intravenous administration of contrast. This CT examination was performed using dose optimization techniques as appropriate, variously including the following: *Automated exposure control *Adjustment of mA and/or kV according to patient size (this includes techniques or standardized protocols for targeted exams where dose is matched to indication/reason for exam; i.e. extremities or head) *Use of iterative reconstruction technique Total exam dose length product: 716 mGy-cm FINDINGS: No intra or extra-axial fluid collection, hemorrhage, or mass. No ventriculomegaly. No midline shift or herniation. Basal cisterns are patent. [place]-white matter differentiation is maintained. No territorial encephalomalacia. No significant volume loss. There is no abnormal attenuation within the brain parenchyma. No calvarial fracture or soft tissue abnormality. The mastoid air cells and visualized portions of the paranasal sinuses are well aerated. CT/CT head/brain wo IV con IMPRESSION: 1. No acute intracranial pathology. Please note that the white matter changes in the hindbrain on comparison MRI are not well evaluated via CT. If concern for change or new white matter lesion, suggest MRI for more sensitive assessment.
[2022-10-23 13:49] VITALS: BP 123/80; BP 136/83; PULSE 116; RESP 14; TEMP 36.7; O2SAT 95; O2SAT 98; BMI 25.0
[2022-10-23 14:10] LABS: MANUAL DIFF FLAG NO
[2022-10-23 14:20] LABS: Basophils Percent Auto 0.4 % (0-2); Eosinophils Absolute Auto 0.1 X10*3/uL (0.0-0.4); Eosinophils Percent Auto 1.1 % (0-4); Hematocrit 43.8 % (42.0-52.0); Hemoglobin 14.1 g/dl (14.0-18.0); Imm Gran Abs Auto 0.03 X10*3/uL (0.00-0.03); Imm Gran Pct Auto 0.4 % (0.0-0.4); Lymphocytes Absolute Auto 0.7 X10*3/uL (1.2-4.9); Lymphocytes Percent Auto 8.3 % (20-40); Mean Corpuscular HGB Conc 32.2 g/dl (31.0-36.0); Mean Corpuscular Hemoglobin 25.1 pg (27.0-33.0); Mean Corpuscular Volume 77.9 fL (80.0-98.0); Mean Platelet Volume 11.4 fL (9.4-12.4); Monocytes Absolute Auto 1.2 X10*3/uL (0.1-1.2); Monocytes Percent Auto 14.5 % (2-11); Neutrophils Absolute Auto 6.1 x10*3/uL (2.0-8.3); Neutrophils Percent Auto 75.3 % (45-73); Platelet Count 240 X10*3/uL (160-400); Red Blood Count 5.62 X10*6/uL (4.60-5.80); Red Cell Distribution Width 14.5 % (11.0-16.0); White Blood Count 8.1 X10*3/uL (4.8-10.8)
--- NOTE | 2022-10-23 14:20 | PC.NURSE ---
Patient has volitional cough cn puff cheeks and manage secretions able to tolerate small and large amount of fluids with no cough or gurgling will CTM
[2022-10-23 14:29] LABS: Anion Gap 12 (12-20); Blood Urea Nitrogen 6 mg/dL (9-16); Carbon Dioxide 33 mmol/L (22-29); Chloride 100 mmol/L (96-108); Creatinine Clr Calc Pharmacy 131.8; Estimated Glomerular Filt Rate > 60; Glucose Random 131 mg/dL (60-115); Potassium 3.9 mmol/L (3.3-5.1); Sodium 141 mmol/L (135-145)
--- NOTE | 2022-10-23 15:15 | ED_ITS ---
HPI - Neuro Symptoms/Deficit General Chief Complaint: Stroke Stated Complaint: STROKE ? Time Seen by Provider: 10/23/22 14:47 Source: patient Mode of arrival: ambulatory Limitations: no limitations History of Present Illness HPI Narrative: 37-year-old male with history of multiple sclerosis presented today for 1 day of slurred and slow speech, difficulty swallowing superficially his own saliva, right lower extremities weakness and numbness. Patient declined urinary symptoms, no fever, chills, no CP, no SOB. Related Data Home Medications Medication Instructions Recorded Confirmed cholecalciferol (vitamin D3) 50 1 cap PO DAILY 09/18/21 08/26/22 mcg (2,000 unit) capsule dimethyl fumarate 240 mg 240 mg PO BID 09/18/21 08/26/22 capsule,delayed release multivitamin 1 tab PO DAILY 08/20/22 08/26/22 omega-3 300 mg-dha 120 mg-epa 180 1 cap PO DAILY 08/20/22 08/26/22 mg-fish oil 1,000 mg capsule Allergies Allergy/AdvReac Type Severity Reaction Status Date / Time No Known Allergies Allergy Verified 05/02/22 14:35 [No Known Allergies*] Review of Systems Review of Systems: All other systems are reviewed and are negative Constitutional: Reports as per HPI and Reports no additional constitutional complaints Eyes: Reports as per HPI and Reports no additional eye complaints Reports system reviewed and no additional complaints, except as documented Cardiovascular: Reports as per HPI and Reports no additional cardiovascular complaints Respiratory: Reports as per HPI and Reports no additional respiratory complaints Gastrointestinal: Reports as per HPI and Reports no additional gastrointestinal complaints Genitourinary: Reports no additional female genitourinary complaints Musculoskeletal: Reports no additional musculoskeletal complaints Skin/Breast: Reports system reviewed and no additional complaints, except as docu Psychiatric: Reports no additional psychiatric complaints Endocrine: Reports no additional endocrine complaints Hematologic/Lymphatic: Reports no additional hematologic/lymphatic complaints Allergic/Immunologic: Reports no additional allergic/immunologic complaints Reports system reviewed and no additional complaints, except as documented and Reports Abnormal speech present [facility] Past Medical History Medical History Headache Microcytic anemia Multiple sclerosis Neuromyelitis optica spectrum disorder Surgical History H/O hernia repair Family History Family History Other No family history of coronary artery disease Social History Social History Household Members: Family Housing: Apartment 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 have visiting nurse or other home services: Yes (special education educational assistant) Alcohol intake: unknown Patient Tobacco Use Status: Former Tobacco user Tobacco use type: Cigarette Smoked in Last 30 Days: No Substance Use Type: Marijuana Advance Directives: Yes Advance Directives on File: Yes Advance Directives Date on File: 08/21/22 service: No Current occupational status: disabled Physical Exam Vital Signs: Vital Signs: Last Vital Signs Temp 98.3 F 10/23/22 15:52 Pulse 103 H 10/23/22 15:52 Resp 16 10/23/22 15:52 BP 117/82 10/23/22 15:52 Pulse Ox 98 10/23/22 15:52 O2 Del Method 10/23/22 13:49 BMI result Body Mass Index 25.0 Vital signs have been reviewed as appeared to be correct. Blood pressure normal. Heart rate normal. Respiration rate normal. Temperature normal. Oxygen saturation normal. Appearance: Alert. Oriented X3. No acute distress. Head: Normal external exam. Normocephalic. Atraumatic. No Arnett signs noted. No raccoon eyes noted Eyes: PERRLA. EOMI. Conjunctiva and sclera normal. Eyelids normal. ENT: TM's Normal. Pharynx normal. Uvula midline. Moist mucous membranes. No trismus noted. No drooling noted. No muffled voice noted. Neck: Normal inspection. Neck supple. FROM. No adenopathy. Thyroid Normal. No meningeal signs. No neck mass noted. CVS: Normal heart rate and rhythm. Heart sound normal. No murmurs noted. Pulses normal throughout. Respiratory: No respiratory distress. Painless inspiration. Breath sounds normal. No wheezes/rales/rhonchi noted. Chest nontender. No accessory muscle usage noted or decreased air movement noted. Abdomen: Soft and nontender. Bowel sounds normal in all 4 quadrants. No distention noted. No organomegaly noted. No visible injury noted. Back: No CVA tenderness. Full range of motion noted. Skin: Skin warm and dry. Normal skin color. Normal skin turgor. No rashes/lesions/lacerations noted. Extremities: No lower extremity edema. Extremities exhibit normal range of motion. Extremities nontender. Neuro: Oriented X 3. Cranial nerve exam: II-XII are grossly intact No motor deficit. No sensory deficit. Hyper-reflexia of DTRs Course Course Course Narrative: 37-year-old male came in for evaluation of MS flare up with slurred speech and difficulty swallowing and bilateral lower extremities numbness right more the left. Typical presentation for the patient usually require high dose of Solu-Medrol and admission. Medications Administered Discontinued Medications Generic Name Dose Route Start Last Admin Trade Name Freq PRN Reason Stop Dose Admin Methylprednisolone Sodium Succinate 1,000 mg 10/23/22 15:14 10/23/22 16:02 Methylprednisolone Sod Succ 125 Mg/2 Ml Vial IVPUSH 10/23/22 15:15 1,000 mg ONCE ONE Administration Medical Decision Making Differential Diagnosis Differential Diagnoses: The differential diagnosis associated with the presentation includes (MS flare up, infection, CVA) Admission/Observation Consideration of admission/observation: Escalation of care including admission/observation considered Consult Healthcare Provider Management of the patient was discussed with: Hospitalist Lab Data [facility] Lab Attestation statement: I reviewed the patient's lab results. 10/23/22 14:06 10/23/22 14:06 Labs: Lab Results 10/23/22 10/23/22 10/23/22 Range/Units 14:06 14:06 15:55 WBC 8.1 (4.8-10.8) X10*3/uL RBC 5.62 (4.60-5.80) X10*6/uL Hgb 14.1 (14.0-18.0) g/dl Hct 43.8 (42.0-52.0) % MCV 77.9 L (80.0-98.0) fL MCH 25.1 L (27.0-33.0) pg MCHC 32.2 (31.0-36.0) g/dl RDW 14.5 (11.0-16.0) % Plt Count 240 (160-400) X10*3/uL MPV 11.4 (9.4-12.4) fL Immature Gran % (Auto) 0.4 (0.0-0.4) % Neut % (Auto) 75.3 H (45-73) % Lymph % (Auto) 8.3 L (20-40) % [place] % (Auto) 14.5 H (2-11) % Eos % (Auto) 1.1 (0-4) % Baso % (Auto) 0.4 (0-2) % Lymph # (Auto) 0.7 L (1.2-4.9) X10*3/uL [place] # (Auto) 1.2 (0.1-1.2) X10*3/uL Eos # (Auto) 0.1 (0.0-0.4) X10*3/uL Baso # (Auto) 0.0 (0.0-0.2) X10*3/uL Abs Immat Gran (auto) 0.03 (0.00-0.03) X10*3/uL Absolute Neuts (auto) 6.1 (2.0-8.3) x10*3/uL Absolute Nucleated RBC 0.000 (0.0-0.012) X10*3/uL Nucleated RBC % (auto) 0.0 (0.0-0.2) /100WBC Sodium 141 (135-145) mmol/L Potassium 3.9 (3.3-5.1) mmol/L Chloride 100 (96-108) mmol/L Carbon Dioxide 33 H (22-29) mmol/L Anion Gap 12 (12-20) BUN 6 L (9-16) mg/dL Creatinine 0.71 (0.5-1.4) mg/dL Estim Creat Clear Calc 131.8 Estimated GFR > 60 POC Glucose 76 (60-115) mg/dL Random Glucose 131 H (60-115) mg/dL Calcium 10.0 (8.4-10.2) mg/dL Independent Interpretation I performed an independent interpretation of an: EKG (Sinus tachycardia at 113 beats per minutes, normal intervals, normal axis deviation, no ST-T changes.) and CT Scan (No acute intracranial pathology.) Radiology Impression Discussion of test interpretation with radiology: I have reviewed the radiologist's reading. Discharge Plan Discharge Clinical Impression: Multiple sclerosis Patient Disposition: Admitted As Inpatient
[2022-10-23 15:52] VITALS: BP 117/82; PULSE 103; RESP 16; TEMP 36.8; O2SAT 98
--- NOTE | 2022-10-23 15:56 | MHC.EDTECH ---
THIS PCT ASSUMED CARE OF PT AT 1500 ,VITALS SIGN TAKEN AND BLOOD SUGAR DONE ,PT ASK FOR WATER
[2022-10-23 16:00] LABS: Glucose, Whole Blood 76 mg/dL (60-115)
[2022-10-23] MEDS: methylPREDNISolone Sod Succ 125 MG/2 ML VIAL 1000 MG IVPUSH (16:02)
--- NOTE | 2022-10-23 17:03 | PC.NURSE ---
Patient resting comfortably no distress noted awaiting dispo will CTM
--- NOTE | 2022-10-23 17:41 | PM.IMHP ---
History of Present Illness Date of Service: 10/23/22 Attending physician on admission: Finn Holguin Chief Complaint: MS exacerbation Pt is a 37-year-old male with a PMH significant for?MS and a past history of cocaine use disorder who presents to the ED with?generalized muscle weakness and tightness for the past 2 days. Patient states his legs have been weaker than his arms, in that he has been able to walk on his own due to weakness. Patient also notes chronic left eye blurriness but he now endorses new numbness around the left eye socket. Patient has had difficulty swallowing and speaking. Endorses intermittent headache. Of note patient was admitted to the hospital for similar complaints on 08/20/2022 due to noncompliance with his MS medication. Patient then stated he self discontinued his dimethyl fumarate and baclofen due to wanting to try a more natural approach to treating his disease with fish oil and multivitamins. Patient was treated with Solu-Medrol 1 g IV to good effect and discharged on dimethyl fumarate. Patient states that he has been compliant with his medications since last discharge, and continues to be free of cocaine. Patient denies fever, chills, nausea, vomiting, abdominal pain. No chest pain/pressure, palpitations. No shortness of breath. Patient is followed by Dr. Huber, neurology. Dr. Huber notes patient's diagnosis of MS is questionable as his pattern of presentation defers from classic MS. States patient probably suffers from a variant of demyelinating disease. In the ED patient was tachycardic. Labs were unremarkable. CT of head showed no acute intracranial pathology but did show possible white matter changes in the hind brain in comparison to MRI of 11/10/2021; however these were not well visualized and a new MRI would be a more sensitive assessment. EKG showed sinus tachycardia without evidence for acute ischemia.Pt was treated with IV Solu-Medrol, which pt state is already helping with weakness and disarthria. Pt will be admitted to the hospital for treatment of his MS exacerbation with IV steroids Review of Systems Review of Systems: Dysphagia Dysarthria Generalized weakness, especially lower extremities Periorbital numbness of left eye Headache Yes all other systems are reviewed and are negative [facility] Medical History Headache Microcytic anemia Multiple sclerosis Neuromyelitis optica spectrum disorder Family History Other No family history of coronary artery disease Surgical History H/O hernia repair Social History Household Members: Family Housing: Apartment 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 have visiting nurse or other home services: No Alcohol intake: unknown Patient Tobacco Use Status: Former Tobacco user Tobacco use type: Cigarette Substance Use Type: Marijuana Advance Directives Date on File: 08/21/22 service: No Current occupational status: disabled Meds Allergies Allergy/AdvReac Type Severity Reaction Status Date / Time No Known Allergies Allergy Verified 05/02/22 14:35 [No Known Allergies*] Home Medications Medication Instructions Recorded Confirmed Last Taken Type cholecalciferol (vitamin D3) 50 1 cap PO DAILY 09/18/21 10/23/22 01/20/22 History mcg (2,000 unit) capsule dimethyl fumarate 240 mg 240 mg PO BID 09/18/21 10/23/22 01/20/22 History capsule,delayed release multivitamin 1 tab PO DAILY 08/20/22 10/23/22 Unknown History omega-3 300 mg-dha 120 mg-epa 180 1 cap PO DAILY 08/20/22 10/23/22 Unknown History mg-fish oil 1,000 mg capsule Physical Exam Vital Signs and Narrative: Vital Signs: Last Vital Signs Temp 98.3 F 10/23/22 15:52 Pulse 103 H 10/23/22 15:52 Resp 16 10/23/22 15:52 BP 117/82 10/23/22 15:52 Pulse Ox 98 10/23/22 15:52 O2 Del Method 10/23/22 13:49 BMI result Body Mass Index 25.0 Constitutional: Alert, in no acute distress. Mental Status: Oriented to person, place and time. Eyes: Pupils are equal, round, and reactive to light. Ear, Nose, and Throat: Oropharynx clear, mucous membranes moist. Ears and nose without deformities. Trachea midline. Respiratory: Clear to auscultation bilaterally. No wheezing, rales, or rhonchi. Cardiovascular: S1, S2 regular. No murmurs, rubs, or gallops. Gastrointestinal: Abdomen soft, non-tender, non-distended. Normal bowel sounds. Neurologic: Cranial nerves II-XI are grossly intact. No focal neurological deficits. Moves all extremities spontaneously. Upper extremities 4/5 strength bilaterally. Lower extremities 3/5 strength bilaterally. Skin: No rashes or lesions noted. Musculoskeletal: No cyanosis or clubbing. Extremities: No edema. Psychiatric: Normal mood and affect. Results Labs 10/23/22 14:06 10/23/22 14:06 Labs: Laboratory Results - last 24 hr 10/23/22 10/23/22 10/23/22 14:06 14:06 15:55 MCV 77.9 L MCH 25.1 L MCHC 32.2 RDW 14.5 Plt Count 240 MPV 11.4 Immature Gran % (Auto) 0.4 Neut % (Auto) 75.3 H Lymph % (Auto) 8.3 L [place] % (Auto) 14.5 H Eos % (Auto) 1.1 Baso % (Auto) 0.4 Lymph # (Auto) 0.7 L [place] # (Auto) 1.2 Eos # (Auto) 0.1 Baso # (Auto) 0.0 Abs Immat Gran (auto) 0.03 Absolute Neuts (auto) 6.1 Absolute Nucleated RBC 0.000 Nucleated RBC % (auto) 0.0 Anion Gap 12 Estim Creat Clear Calc 131.8 Estimated GFR > 60 POC Glucose 76 Random Glucose 131 H Calcium 10.0 Imaging Radiologist's Impressions: Impressions Head CT 10/23/22 15:45 IMPRESSION: 1. No acute intracranial pathology. Please note that the white matter changes in the hindbrain on comparison MRI are not well evaluated via CT. If concern for change or new white matter lesion, suggest MRI for more sensitive assessment. Assessment and Plan (1) Multiple sclerosis: Status: Acute Plan Pt is a 37-year-old male with a PMH significant for?MS and a past history of cocaine use disorder who presents to the ED with?generalized muscle weakness and tightness for the past 2 days. Pt will be admitted for management of MS exacerbation. MS exacerbation Etiology unclear; patient has been compliant with his meds since last discharge Solu-Medrol IV 1 g daily, day 10/17 Neurology consult, followed by Dr. Huber Will need PT evaluation prior to discharge Dysphagia Likely secondary to MS exacerbation, improved with IV Solu-Medrol in ED Bedside swallow test prior to p.o. meds or diet Treated as above, monitor Dysarthria Likely secondary to MS exacerbation, improved IV Solu-Medrol and ED Treat as above, monitor Periorbital numbness of the left eye Likely secondary to MS exacerbation, less likely neuromyelitis optica Treat as above, monitor Cocaine use disorder Patient states he has not used for some time now Tox screen clean for cocaine Full Code Attending:?Dr. Holguin DVT Prophylaxis: Lovenox Pt will require a hospitalization of at least two nights for treatment of?MS exacerbation with IV steroids. Time Spent With Patient Time: Total time managing care of this patient today ____ minutes. Quality Stroke Does the patient have a stroke diagnosis?: No VTE Prior VTE?: No VTE Risk Level:: Medical - moderate - high VTE Device Contraindication: Treatment Not Indicated VTE Drug Contraindication: N/A - Med Ordered
[2022-10-23 18:03] LABS: Appearance Urine Hazy; Color Urine Yellow; Glucose Urine UA Negative (Negative); Leukocyte Esterase Urine Negative (Negative); Nitrite Urine Negative (Negative); UMIC TRIGGER UACC YES; Urine Blood Small (1+) (Negative); Urine Ketones Negative (Negative); Urine Protein Negative (Neg-Trace)
[2022-10-23 18:09] LABS: Bacteria Urine None Seen (None Seen); Hyaline Casts Urine 0-2 /LPF (0-2); Squamous Epithelial Cell Urine 0-2 /HPF (0-2); WBC Urine 0-5 /HPF (0-5)
[2022-10-23 18:17] VITALS: BP 127/83; PULSE 107; RESP 16; TEMP 36.8; O2SAT 98
--- NOTE | 2022-10-23 18:20 | PM.EVENT ---
Event Note Date of Service: 10/23/22 Event Note: the patient was seen and evaluated with ADELINA Miranda. I agree with his note, assessment and plan with the following. 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 no focal findings, stable Lt eye blurriness, denies any chest pain, headache, diplopia, difficulty swallowing, focal weakness, change in bowel habit or urinary symptoms. It is not clear if this represents an attack of MS with no focality. Started on pulse steroid therapy per ED team muscle relaxant neurology consult swallowing eval Rest of evaluations by ADLEINA note. Time Spent With Patient Time: Total time managing care of this patient today ____ minutes.
[2022-10-23 18:34] LABS: COVID-19 Test Negative (Negative); IDNOW Serial# 16C4AD1C
[2022-10-23] MEDS: Omeprazole 40 MG CAPSULE.DR PO (18:38)
--- NOTE | 2022-10-23 18:44 | PC.NURSE ---
Notified admitting PA patient complaining of feeling like he is choking no airway impingment noted patient able to tolerate PO meds and water will hold PO and await orders.
--- NOTE | 2022-10-23 19:20 | PC.NURSE ---
This contract technical writer assumed care of this PT at 1900. PT A&Ox4. Smile asymmetrical, no arm drift noted, hand secretary office clerk equal, equal pedal reflexes.
[2022-10-23 19:52] VITALS: BP 117/75; PULSE 117; RESP 16; TEMP 36.6; O2SAT 98
--- NOTE | 2022-10-23 21:58 | MHC.EDTECH ---
2200 rounding done ,pt drank 600 ml fluids ,void 450 ml .
[2022-10-23] MEDS: Ketorolac Tromethamine 15 MG/ML VIAL IVPUSH (22:05)
--- NOTE | 2022-10-23 22:05 | PC.NURSE ---
PT reports 8/10 headache pain, and difficulty swallowing. Provider notified, new order for IV push meds given as documented.
--- NOTE | 2022-10-23 22:08 | PC.NURSE ---
RN to RN report given, PT will be transported to [facility]. PT aware of plan.
[2022-10-23] MEDS: 0.9 % Sodium Chloride Flush 3 ML SYRINGE IVFLUSH (22:21)
[2022-10-23 22:43] VITALS: BMI 25.2
[2022-10-24 03:45] VITALS: BP 105/65; PULSE 96; RESP 18; TEMP 36.5; O2SAT 99
[2022-10-24 07:09] VITALS: BP 117/67; PULSE 96; RESP 19; TEMP 36.4; O2SAT 97
--- NOTE | 2022-10-24 07:20 | PHA.MEDREC ---
Pharmacy Consult ? Medication Reconciliation Pharmacy has completed the medication reconciliation.
--- NOTE | 2022-10-24 09:07 | P.CNNE_ITS ---
History of Present Illness Data of Consult Service Date: 10/24/22 Primary Care Provider: None Physician HPI Reason for consult: Demyelinating disease 37 years old man who switched his care to this hospital from [facility] couple of years ago. He was given a diagnosis of multiple sclerosis and had been taking Tecfidera. Reviewing his clinical and radiological picture, I have doubt at this diagnosis and raised possibility of neuromyelitis optica syndrome. He has continued to take Tecfidera but on and off many times not compliant with medicines stating that it did not work. He was back in the ER last night with worsening symptoms of unsteadiness of gait difficulty walking and difficulty speaking. He was in hospital with similar symptoms few weeks ago and was treated with Solu-Medrol. Review of Systems Review of Systems: No recent cold or flu-like illness PMFSH Past Medical History Medical History Headache Microcytic anemia Multiple sclerosis Neuromyelitis optica spectrum disorder Family History Family History Other No family history of coronary artery disease Surgical History Surgical History H/O hernia repair Social History Social History Household Members: Family Housing: Apartment 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 have visiting nurse or other home services: No Alcohol intake: unknown Patient Tobacco Use Status: Former Tobacco user Tobacco use type: Cigarette Substance Use Type: Marijuana Advance Directives Date on File: 08/21/22 service: No Current occupational status: disabled Meds Allergies Allergy/AdvReac Type Severity Reaction Status Date / Time No Known Allergies Allergy Verified 05/02/22 14:35 [No Known Allergies*] Active Medications: Current Medications Acetaminophen (Acetaminophen 325 Mg Tablet) 650 mg PO Q6H PRN PRN Reason: Pain, Mild (Pain Scale 1-3) Baclofen (Baclofen 20 Mg Tablet) 20 mg PO BID PRN PRN Reason: Muscle Spasm Docusate Sodium (Docusate Sodium 100 Mg Capsule) 100 mg PO DAILY PRN PRN Reason: Constipation Enoxaparin Sodium (Enoxaparin Sodium 40 Mg/0.4 Ml Syringe) 40 mg SUBCUT Q24H [facility] Last Admin: 10/23/22 18:38 Dose: Not Given Methylprednisolone Sodium Succinate 1,000 mg/ Sodium Chloride 66 mls @ 66 mls/hr IV DAILY@1500 [facility] Stop: 10/27/22 15:59 Multivitamins/Vitamin C (Multivitamin Tablet) 1 tab PO DAILY [facility] Non-Formulary Medication (Dimethyl Fumarate) 240 mg PO BID [facility] Omeprazole (Omeprazole 40 Mg Capsule.) 40 mg PO DAILY@0630 [facility] Last Admin: 10/24/22 05:46 Dose: Not Given Ondansetron HCl (Ondansetron Hcl 4 Mg/2 Ml Vial) 4 mg IVPUSH Q8H PRN PRN Reason: Nausea and Vomiting Sodium Chloride (0.9 % Sodium Chloride Flush 3 Ml Syringe) 3 ml IVFLUSH QSHIFT [facility] Last Admin: 10/23/22 22:21 Dose: 3 ml Vitamin D (Cholecalciferol (Vitamin D3) 25 Mcg Tablet) 50 mcg PO DAILY [facility] Home Medications Medication Instructions Recorded Confirmed Last Taken Type cholecalciferol (vitamin D3) 50 1 cap PO DAILY 09/18/21 10/23/22 01/20/22 History mcg (2,000 unit) capsule dimethyl fumarate 240 mg 240 mg PO BID 09/18/21 10/23/22 01/20/22 History capsule,delayed release multivitamin 1 tab PO DAILY 08/20/22 10/23/22 Unknown History omega-3 300 mg-dha 120 mg-epa 180 1 cap PO DAILY 08/20/22 10/23/22 Unknown History mg-fish oil 1,000 mg capsule Physical Exam Vital Signs: Vital Signs: Last Vital Signs Temp 97.5 F 10/24/22 07:09 Pulse 96 10/24/22 07:09 Resp 19 10/24/22 07:09 BP 117/67 10/24/22 07:09 Pulse Ox 97 10/24/22 07:09 O2 Del Method 10/24/22 07:09 BMI result Body Mass Index 25.2 Neuro: Other: alert and awake with slightly slurred speech but normal language. Face is symmetrical. Visual rdz are full. There is no nystagmus. Arm strength is good. There is significant spasticity and hyperreflexia of legs with equivocal plantars. Results Labs 10/23/22 14:06 10/23/22 14:06 Labs: Short CBC 10/23/22 Range/Units 14:06 WBC 8.1 (4.8-10.8) X10*3/uL Hgb 14.1 (14.0-18.0) g/dl Hct 43.8 (42.0-52.0) % Plt Count 240 (160-400) X10*3/uL BMP 10/23/22 14:06 Sodium 141 Potassium 3.9 Chloride 100 Carbon Dioxide 33 H BUN 6 L Creatinine 0.71 Calcium 10.0 Urine 10/23/22 Range/Units 17:56 Urine Color Yellow Urine Appearance Hazy Urine pH 7.0 (5.0-9.0) Ur Specific [place] 1.010 (1.005-1.025) Urine Protein Negative (Neg-Trace) mg/dL Urine Glucose (UA) Negative (Negative) mg/dL Noncontrast head CT did not reveal any acute abnormality. Previous MRI of b rain has revealed mostly brainstem related signal abnormalities involving area posterema. . 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 His overall clinical picture and especially radiological picture with MRI was not typical of multiple sclerosis and was suggestive more of neuromyelitis optica s yndrome. With that, hisAQUAPORIN 4 AB titer was negative but this titer can be negative in 20-25% of patients with this syndrome. Also, he did not have any significant spinal cord lesion. Despite that he faded more in this syndrome. My recommendation is to discontinue Tecfidera. For now we should treat him with Solu-Medrol a g a day for 3 days and after that discharge him on prednisone 20 mg twice a day. He should see me in a week or 2 afterwards. I would try to obtain biological treatment for this syndrome. If that would not work through his insurance, I might consider combination of prednisone and azathioprine. PT OT consultation is also recommended. Time Spent With Patient Time: Total time managing care of this patient today ____ minutes. Procedures Date of Service Date of Service: 10/24/22
[2022-10-24] MEDS: 0.9 % Sodium Chloride Flush 3 ML SYRINGE IVFLUSH ×3 (09:09→20:50)
--- NOTE | 2022-10-24 09:09 | MHC.CM.PN ---
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
--- NOTE | 2022-10-24 12:09 | P.PNIM_ITS ---
Subjective Subjective Date of Service: 10/24/22 Interval History: Feels better this morning his upper extremities and the way he speaks Still having significant lower extremities weakness No other overnight events Review of Systems Review of Systems: Yes all other systems are reviewed and are negative Physical Exam Vital Signs: Vital Signs: Last Vital Signs Temp 97.5 F 10/24/22 07:09 Pulse 96 10/24/22 07:09 Resp 19 10/24/22 07:09 BP 117/67 10/24/22 07:09 Pulse Ox 97 10/24/22 07:09 O2 Del Method 10/24/22 07:09 BMI result Body Mass Index 25.2 Const: Other: Constitutional : Awake, interactive, not in distress Neck : Normal inspection, Supple Cardiovascular : RRR, no JVP, no lower extremity edema Respiratory : good bilateral air entry, no crackles, wheezes or rhonchi Gastrointestinal: soft, lax, Normal bowel sounds, Non tender Skin : Warm, Dry Neurological : Alert & oriented x3, no nystagmus.? Upper extremities strength 4.? Weakness and spasticity and hyperreflexia in bilateral legs Objective Data Active Medications Acetaminophen (Acetaminophen 325 Mg Tablet) 650 mg PO Q6H PRN PRN Reason: Pain, Mild (Pain Scale 1-3) Baclofen (Baclofen 20 Mg Tablet) 20 mg PO BID PRN PRN Reason: Muscle Spasm Docusate Sodium (Docusate Sodium 100 Mg Capsule) 100 mg PO DAILY PRN PRN Reason: Constipation Enoxaparin Sodium (Enoxaparin Sodium 40 Mg/0.4 Ml Syringe) 40 mg SUBCUT Q24H [facility] Last Admin: 10/23/22 18:38 Dose: Not Given Documented By: MILE Non-Admin Reason: Patient Refused Methylprednisolone Sodium Succinate 1,000 mg/ Sodium Chloride 66 mls @ 66 mls/hr IV DAILY@1500 [facility] Stop: 10/27/22 15:59 Multivitamins/Vitamin C (Multivitamin Tablet) 1 tab PO DAILY [facility] Last Admin: 10/24/22 09:15 Dose: Not Given Documented By: ANNA Non-Admin Reason: awaiting speech/swallow Omeprazole (Omeprazole 40 Mg Capsule.) 40 mg PO DAILY@0630 [facility] Last Admin: 10/24/22 05:46 Dose: Not Given Documented By: AUDELIA Non-Admin Reason: Patient Refused Ondansetron HCl (Ondansetron Hcl 4 Mg/2 Ml Vial) 4 mg IVPUSH Q8H PRN PRN Reason: Nausea and Vomiting Sodium Chloride (0.9 % Sodium Chloride Flush 3 Ml Syringe) 3 ml IVFLUSH QSHIFT [facility] Last Admin: 10/24/22 09:09 Dose: 3 ml Documented By: ANNA Vitamin D (Cholecalciferol (Vitamin D3) 25 Mcg Tablet) 50 mcg PO DAILY [facility] Last Admin: 10/24/22 09:15 Dose: Not Given Documented By: ANNA Non-Admin Reason: awaiting speech/swallow Labs 10/23/22 14:06 10/23/22 14:06 Labs: Laboratory Results - last 24 hr 10/23/22 10/23/22 10/23/22 14:06 14:06 15:55 MCV 77.9 L MCH 25.1 L MCHC 32.2 RDW 14.5 Plt Count 240 MPV 11.4 Immature Gran % (Auto) 0.4 Neut % (Auto) 75.3 H Lymph % (Auto) 8.3 L Wallace % (Auto) 14.5 H Eos % (Auto) 1.1 Baso % (Auto) 0.4 Lymph # (Auto) 0.7 L Wallace # (Auto) 1.2 Eos # (Auto) 0.1 Baso # (Auto) 0.0 Abs Immat Gran (auto) 0.03 Absolute Neuts (auto) 6.1 Absolute Nucleated RBC 0.000 Nucleated RBC % (auto) 0.0 Anion Gap 12 Estim Creat Clear Calc 131.8 Estimated GFR > 60 POC Glucose 76 Random Glucose 131 H Calcium 10.0 Urine Color Urine Appearance Urine pH Ur Specific [place] Urine Protein Urine Glucose (UA) Urine Ketones Urine Blood Urine Nitrite Ur Leukocyte Esterase Urine RBC Urine WBC Ur Squamous Epith Cells Urine Bacteria Hyaline Casts COVID-19 ([facility]) COVID-19 Clin Com 10/23/22 10/23/22 17:56 18:04 MCV MCH MCHC RDW Plt Count MPV Immature Gran % (Auto) Neut % (Auto) Lymph % (Auto) Wallace % (Auto) Eos % (Auto) Baso % (Auto) Lymph # (Auto) Wallace # (Auto) Eos # (Auto) Baso # (Auto) Abs Immat Gran (auto) Absolute Neuts (auto) Absolute Nucleated RBC Nucleated RBC % (auto) Anion Gap Estim Creat Clear Calc Estimated GFR POC Glucose Random Glucose Calcium Urine Color Yellow Urine Appearance Hazy Urine pH 7.0 Ur Specific [place] 1.010 Urine Protein Negative Urine Glucose (UA) Negative Urine Ketones Negative Urine Blood Small (1+) H Urine Nitrite Negative Ur Leukocyte Esterase Negative Urine RBC 6-10 H Urine WBC 0-5 Ur Squamous Epith Cells 0-2 Urine Bacteria None Seen Hyaline Casts 0-2 COVID-19 ([facility]) Negative COVID-19 Clin Com See Note Assessment and Plan (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 Pt will be admitted for management of MS exacerbation. Lower extremities weakness 2/2 Neuromyelitis optica Unclear diagnosis but most suggestive given his MRI findings, signs and symptoms, will need further evaluation as outpatient by Neurology Solu-Medrol IV 1 g daily, day 2/3 Neurology input appreciated, discontinue dimethyl fumarate and consider pred nisone at time of discharge PT/OT Dysphagia FINANCIAL ANALYSIS CONSULTANT team input appreciated, advanced chopped diet Periorbital numbness of the left eye Chronic, Likely secondary to above Treat as above, monitor response History of Cocaine use disorder Patient states he has not used for some time now Tox screen clean for cocaine DVT Prophylaxis: Lovenox Pt will require overnight hospital stay for treatment of?neuromyelitis optica exacerbation with IV steroids pending PT/OT evaluation safe discharge plan Time Spent With Patient Time: Total time managing care of this patient today ____ minutes. Quality Stroke Does the patient have a stroke diagnosis?: No VTE Prior VTE?: No VTE Risk Level:: Medical - moderate - high VTE Device Contraindication: Treatment Not Indicated VTE Drug Contraindication: N/A - Med Ordered
[2022-10-24] MEDS: methylPREDNISolone Sod Succ 1,000 MG in 0.9 % Sodium Chloride 50 ML 66 MG IV (14:41)
[2022-10-24 16:00] VITALS: BP 119/65; PULSE 95; RESP 18; TEMP 36.3; O2SAT 98
--- NOTE | 2022-10-24 18:19 | MHC.SL.SWA ---
Speech Pathologist Impression: Risk of Aspiration Due to: Neurological Condition Dysphasia Diet Status: Oropharyngeal Dysphagia. Chopped/Advanced (NDD3) with THIN liquids, pills whole in puree or liquid. Liquid Consistency and Strategies for Safe Swallow: Liquid Intake Recommendation: Thin Liquid Intake Strategies: Small Sips Double Swallow Solid Food Consistency: Dietary Recommendations: Chopped/Advanced (NDD3) Additional Modifications to Solid Foods: Small bites and sips, alternate liquids and solids, double swallow (dry swallow after initial swallow). Solids should be well moistened with sauces or gravies. Minimize distractions during all meals, encourage patient to focus on meal (e.g. no talking or multi tasking while eating). Oral Medication Intake: Whole with Puree Please contact the pharmacy regarding appropriate crushable or liquid drug formulations that are available whenever modified delivery is recommended. Compensatory Strategies and Precautions to be Taken for Safe Swallow: Sitting Upright (90 deg) Double Swallow Liquids from Straw Liquids from Wide Cup Small Bites and Sips Alternate Liquids/Solids Supervision While Eating and Drinking for Safe Swallow: Intermittent Supervision Foods to Avoid: Tough, difficulty to chew solids, dry or crunchy solids that come in or break into small pieces. Swallowing Recommended Treatments: Compens. Strategy Educat. Recommendation for Speech: Inpatient Speech Therapy Comment: Patient presents with a mild to moderate oropharyngeal dysphagia, with a mildly disorganized oral phase of swallow and effortful swallow noted on solids. Behaviors noted on today's bedside clinical assessment are similar to what was documented in MBSS assessment of 05/03/22. Recommend UPGRADE diet (currently on clear liquids) to Chopped/Advanced (NDD3) with Thin Liquids, pills whole in puree or liquid. Recommend solid foods be well moistened with sauces/gravies, an patient alternate bites of solids with sips of liquid. Patient is encouraged to double swallow on all bites of solids and sips of liquid. MD, RD and RN notified of recommendations by secure text. JUNIOR NETWORK ENGINEER will continue to follow, provide ongoing education regarding swallow strategies, re-assess swallow as needed. Frequency/Duration: Date Range for Service Req: Timeline to reassess: Teaseler Clinican/Clinical Fellow: No Supervisory Statement: I have reviewed and agree with the student/clinical fellow's documentation: N/A Speech Language Pathologist: Nicole Rivera M.A., [facility]-JUNIOR NETWORK ENGINEER
[2022-10-24 19:16] VITALS: BP 117/74; PULSE 99; RESP 18; TEMP 36.6; O2SAT 99
[2022-10-25 03:47] VITALS: BP 113/73; PULSE 88; RESP 18; TEMP 36.2; O2SAT 99
[2022-10-25 06:16] LABS: Hematocrit 38.9 % (42.0-52.0); Hemoglobin 12.5 g/dl (14.0-18.0); Mean Corpuscular HGB Conc 32.1 g/dl (31.0-36.0); Mean Corpuscular Hemoglobin 25.3 pg (27.0-33.0); Mean Corpuscular Volume 78.7 fL (80.0-98.0); Mean Platelet Volume 12.8 fL (9.4-12.4); Platelet Count 234 X10*3/uL (160-400); Red Blood Count 4.94 X10*6/uL (4.60-5.80); Red Cell Distribution Width 14.6 % (11.0-16.0)
[2022-10-25 06:42] LABS: Anion Gap 16 (12-20); Blood Urea Nitrogen 16 mg/dL (9-16); Calcium 9.7 mg/dL (8.4-10.2); Carbon Dioxide 28 mmol/L (22-29); Chloride 103 mmol/L (96-108); Creatinine Clr Calc Pharmacy 139.7; Estimated Glomerular Filt Rate > 60; Glucose Random 131 mg/dL (60-115); Potassium 4.5 mmol/L (3.3-5.1); Sodium 142 mmol/L (135-145)
[2022-10-25 07:02] VITALS: BP 120/68; PULSE 92; RESP 18; TEMP 36.1; O2SAT 99
[2022-10-25] MEDS: Cholecalciferol (Vitamin D3) 25 MCG TABLET 50 MCG PO (09:12)
[2022-10-25] MEDS: Multivitamin TABLET 1 TAB PO (09:13)
[2022-10-25] MEDS: 0.9 % Sodium Chloride Flush 3 ML SYRINGE IVFLUSH (09:17)
[2022-10-25 09:24] VITALS: BP 120/68; PULSE 92; O2SAT 99
--- NOTE | 2022-10-25 10:45 | MHC.SL.SWA ---
Speech Pathologist Impression: Mild oropharyngeal phase dysphagia Risk of Aspiration Due to: Neurological Condition Dysphasia Diet Status: No Change Liquid Consistency and Strategies for Safe Swallow: Liquid Intake Recommendation: Thin Liquid Intake Strategies: Small Sips Solid Food Consistency: Dietary Recommendations: Chopped/Advanced (NDD3) Additional Modifications to Solid Foods: Small bites and sips, alternate liquids and solids, double swallow (dry swallow after initial swallow). Solids should be well moistened with sauces or gravies. Minimize distractions during all meals, encourage patient to focus on meal (e.g. no talking or multi tasking while eating). Oral Medication Intake: Whole with Puree Please contact the pharmacy regarding appropriate crushable or liquid drug formulations that are available whenever modified delivery is recommended. Compensatory Strategies and Precautions to be Taken for Safe Swallow: Sitting Upright (90 deg) Double Swallow Small Bites and Sips Rate of Ingestion Change Avoid Specific Foods Supervision While Eating and Drinking for Safe Swallow: Intermittent Supervision Foods to Avoid: Tough, difficulty to chew solids, dry or crunchy solids that come in or break into small pieces. Swallowing Recommended Treatments: Compens. Strategy Educat. Recommendation for Speech: Inpatient Speech Therapy Display Decorator Clinican/Clinical Fellow: No Supervisory Statement: I have reviewed and agree with the student/clinical fellow's documentation: N/A Speech Language Pathologist: Scarlet Wesley M.A., CCC-TRAFFIC OPERATOR
--- NOTE | 2022-10-25 11:08 | MHC.CM.PN ---
Addendum entered by Nicole Andrade RN 10/25/22 15:41: AUTH GRANTED AND PT WO D/C AT 1630 [facility]IA [facility] FOR BLS TRANSPORT Original Note: PT MEDICALLY CLEARED FOR D/C, PT/OT RECOMMENDING ACUTE REHAB, [facility] HAS GONE FOR AUTH, COVID REQUESTED.
[2022-10-25] MEDS: methylPREDNISolone Sod Succ 1,000 MG in 0.9 % Sodium Chloride 50 ML 66 MG IV (11:52)
[2022-10-25 12:20] LABS: COVID-19 Test Negative (Negative); IDNOW Serial# 16C4AD1C
--- NOTE | 2022-10-25 14:55 | PM.DS ---
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 Patient states his legs have been weaker than his arms, in that he has been able to walk on his own due to weakness.? Patient also notes chronic left eye blurriness but he now endorses new numbness around the left eye socket.? Patient has had difficulty swallowing and speaking.? Endorses intermittent headache.? Of note patient was admitted to the hospital for similar complaints on 08/20/2022 due to noncompliance with his MS medication.? Patient then stated he self discontinued his dimethyl fumarate and baclofen due to wanting to try a more natural approach to treating his disease with fish oil and multivitamins. Patient was treated with Solu-Medrol 1 g IV to good effect and discharged on dimethyl fumarate.? Patient states that he has been compliant with his medications since last discharge, and continues to be free of cocaine.? Patient denies fever, chills, nausea, vomiting, abdominal pain.? No chest pain/pressure, palpitations.? No shortness of breath.? Patient is followed by Dr. Huber, neurology. Dr. Huber notes patient's diagnosis of MS is questionable as his pattern of presentation defers from classic MS.? States patient probably suffers from a variant of demyelinating disease. In the ED patient was tachycardic. Labs were unremarkable. CT of head showed no acute intracranial pathology but did show possible white matter changes in the hind brain in comparison to MRI of 11/10/2021; however these were not well visualized and a new MRI would be a more sensitive assessment.? EKG showed sinus tachycardia without evidence for acute ischemia.Pt was treated with IV Solu-Medrol, which pt state is already helping with weakness and disarthria. Pt will be admitted to the hospital for treatment of his MS exacerbation with IV steroids Hospital course The patient was admitted to the hospital for evaluation of worsening generalized weakness more in the lower extremities associated with change in the speech and difficulty swallowing. Evaluated by Neurology team who believed his symptoms are likely due to neuromyelitis optica rather than multiple sclerosis. Recommended Solu-Medrol IV 1 g daily for 3 days which the patient received a significant improvement in his speech, swallowing and strength in both upper and lower extremities. It seems like lower extremities are more affected. Evaluated by physical and occupational therapies who recommended acute rehabilitation stay. Urology recommended to discontinue dimethyl fumarate and start 20 mg b.i.d. prednisone at time of discharge. With a plan to follow-up with neurology as outpatient in 1-2 weeks. Evaluated by speech therapy team who recommended advanced job diet as both speech and dysphagia improved significantly. Baclofen as needed for muscle spasm Start prednisone 20 mg twice daily To follow-up with Dr. Huber office in 1-2 weeks for further recommendations and management plan Time Spent with Patient Time attestation: Total time managing care of this patient today ____ minutes. Discharge coordination time: Greater than 30 minutes Quality: Safe Use of Opioids Does Pt have an Active Cancer Diagnosis on the Problem List?: No Quality: Stroke Does the patient have a stroke diagnosis?: No Physical Exam Vital Signs: Vital Signs: Last Vital Signs Temp 96.9 F 10/25/22 07:02 Pulse 92 10/25/22 09:24 Resp 18 10/25/22 07:02 BP 120/68 10/25/22 09:24 Pulse Ox 99 10/25/22 09:24 O2 Del Method 10/25/22 07:02 BMI result Body Mass Index 25.2 Const: Other: Constitutional : Awake, interactive, not in distress Neck : Normal inspection, Supple Cardiovascular : RRR, no JVP, no lower extremity edema Respiratory : good bilateral air entry, no crackles, wheezes or rhonchi Gastrointestinal: soft, lax, Normal bowel sounds, Non tender Skin : Warm, Dry Neurological : Alert & oriented x3, no nystagmus.? Upper extremities strength 4.? Weakness and spasticity and hyperreflexia in bilateral legs DS: Data Data Completed and Pending Labs on day of discharge: Laboratory Results - last 24 hr 10/25/22 10/25/22 10/25/22 05:16 05:16 11:57 WBC 15.0 H RBC 4.94 Hgb 12.5 L Hct 38.9 L MCV 78.7 L MCH 25.3 L MCHC 32.1 RDW 14.6 Plt Count 234 MPV 12.8 H Absolute Nucleated RBC 0.000 Nucleated RBC % (auto) 0.0 Sodium 142 Potassium 4.5 Chloride 103 Carbon Dioxide 28 Anion Gap 16 BUN 16 Creatinine 0.67 Estim Creat Clear Calc 139.7 Estimated GFR > 60 Random Glucose 131 H Calcium 9.7 COVID-19 ([facility]) Negative COVID-19 Clin Com See Note Imaging CT scan - head: Radiologist's impression: ITS Impressions Head CT 10/23/22 15:45 IMPRESSION: 1. No acute intracranial pathology. Please note that the white matter changes in the hindbrain on comparison MRI are not well evaluated via CT. If concern for change or new white matter lesion, suggest MRI for more sensitive assessment. Discharge Plan Discharge Anticipated Discharge Date/Time: 10/25/22 14:50 Patient Disposition: Xfer Inpatient Rehab Fac Discharge Diagnosis: Neuromyelitis optica spectrum disorder exacerbation Referrals: Nicole Awad NP [Primary Care Provider] - 1 Week Discharge Medications: New omeprazole 40 mg Capsule,Delayed Release(Dr/Ec) 40 mg PO DAILY@0630 30 Days Qty: 30 0RF prednisone 20 mg tablet 20 mg PO BID Qty: 60 0RF baclofen 20 mg Tablet 20 mg PO BID PRN (Reason: Muscle Spasm) Qty: 40 0RF Continued cholecalciferol (vitamin D3) 50 mcg (2,000 unit) capsule 1 cap PO DAILY multivitamin Tablet 1 tab PO DAILY omega 2-nym-mtz-fish oil 300 mg (120 mg- 180mg)-1,000 mg capsule 1 cap PO DAILY Discontinued dimethyl fumarate 240 mg capsule,delayed release(DR/EC) 240 mg PO BID Discharge Orders: Discharge Order (Routine); Ordered 10/25/22 Ordered By: Finn Holguin Diet: Advance to usual diet Activity on Discharge: As tolerated Stand Alone Forms: Patient Portal Discharge page Care Plan Goals: Read below Health Concerns: Read below Plan of Treatment: Read below Assessment: You were admitted to the hospital for evaluation of generalized weakness and difficulty swallowing. Evaluated by neurologist who believed your symptoms a result of neuromyelitis optica spectrum disease. Treated with high-dose of IV Solu-Medrol for 3 days with significant improvement in the power and strength. Evaluated by physical therapy team who recommended acute rehabilitation placement. Baclofen as needed for muscle spasm Start prednisone 20 mg twice daily To follow-up with Dr. Huber office in 1-2 weeks for further recommendations and management plan
[2022-10-25 15:07] VITALS: BP 111/67; PULSE 82; RESP 20; TEMP 36.7; O2SAT 98
== END 2022-10-25 17:59 | DRG 60 ==
LOC: HO.ED 17:10 → HO.EDOVER 17:59 → HO.S3 21:25
PROVIDERS: Admitting Provider Student in an Organized Health Care Education/Training Program; Emergency Provider Emergency Medicine; PCP Registered Nurse Community Health; Visit Provider Student in an Organized Health Care Education/Training Program
DX: G36.0 Neuromyelitis optica [Devic] (principal); R13.10 Dysphagia, unspecified; R47.1 Dysarthria and anarthria; G35 Multiple sclerosis; F14.11 Cocaine abuse, in remission; Z20.822 Contact with and (suspected) exposure to COVID-19; Z23 Encounter for immunization; Z87.891 Personal history of nicotine dependence; Z79.899 Other long term (current) drug therapy
CPT/HCPCS: 36415; 70450; 80048; 81001; 82947; 85025; 85027; 87635; 90686; 92526; 92610; 93005; 97163; 97167; 97530; 99285; J1885; J2930

== ENCOUNTER 2023-04-05 07:47 | Inpatient (IN) | payer OTHER, SELFPAY ==
[2023-04-05] VITALS (27 sets, daily range): BP systolic 83–124; BP diastolic 44–73; PULSE 79–150; RESP 14–24; TEMP 36.3–39.4; O2SAT 97–99; BMI 24.1; BMI 27.6
--- NOTE | ~2023-04-05 | XR_ITS ---
EXAMINATION: XR CHEST CLINICAL INFORMATION: Fever. COMPARISON: Chest radiograph dated 05/18/2022. TECHNIQUE: Frontal view of the chest was obtained. FINDINGS: The lungs are clear. The cardiomediastinal silhouette is normal in size. There is no pleural effusion or pneumothorax. No acute osseous abnormality. XR/XR chest 1V IMPRESSION: No acute cardiopulmonary findings.
--- NOTE | 2023-04-05 08:01 | ECG_ITS ---
Test Reason : WEAKNESS Blood Pressure : / mmHG Vent. Rate : 142 BPM Atrial Rate : 142 BPM P-R Int : 104 ms QRS Dur : 076 ms QT Int : 356 ms P-R-T Axes : 000 -04 077 degrees QTc Int : 547 ms Sinus tachycardia Nonspecific T wave abnormality Abnormal ECG When compared with ECG of 23-OCT-2022 13:54, Nonspecific T wave abnormality now evident in Anterolateral leads Referred By: Natalia Bernal Electronically Signed By:TOAN FAM
--- NOTE | 2023-04-05 08:05 | ED.GENADULT ---
HPI - General Adult General Chief complaint: Fever Stated complaint: Fever, Weakness, sick xfew days Time Seen by Provider: 04/05/23 07:51 Source: patient and EMS Mode of arrival: EMS Limitations: no limitations History of Present Illness HPI narrative: 37-year-old male with past medical history significant for MS, and cocaine use came in today by EMS for evaluation of generalized weakness and high fever. Patient's symptoms started yesterday with neck and shoulders pain patient took Tylenol and smoked marijuana his symptoms start to feel better woke up this morning with generalized weakness and feeling febrile. Patient is complaining of headache, no blurry vision, no photophobia, no neck stiffness, no CP, no SOB, no abdominal pain. Patient with chronic indwelling Villatoro catheter last was changed 3 days ago. Related Data Home Medications Medication Instructions Recorded Confirmed cholecalciferol (vitamin D3) 50 1 cap PO DAILY 09/18/21 04/05/23 mcg (2,000 unit) capsule multivitamin 1 tab PO DAILY 08/20/22 04/05/23 omega-3 300 mg-dha 120 mg-epa 180 1 cap PO DAILY 08/20/22 04/05/23 mg-fish oil 1,000 mg capsule acetaminophen 500 mg tablet 500 mg PO Q6H PRN mild pain 04/05/23 04/05/23 baclofen 10 mg tablet 10 mg PO TID 04/05/23 04/05/23 Previous Rx's Medication Instructions Recorded prednisone 20 mg tablet 20 mg PO BID #60 tabs 10/25/22 Allergies Allergy/AdvReac Type Severity Reaction Status Date / Time No Known Allergies Allergy Verified 05/02/22 14:35 [No Known Allergies*] Review of Systems Review of Systems: All other systems are reviewed and are negative Constitutional: Reports as per HPI and Reports no additional constitutional complaints Eyes: Reports as per HPI and Reports no additional eye complaints Reports system reviewed and no additional complaints, except as documented Cardiovascular: Reports as per HPI and Reports no additional cardiovascular complaints Respiratory: Reports as per HPI and Reports no additional respiratory complaints Gastrointestinal: Reports as per HPI and Reports no additional gastrointestinal complaints Genitourinary: Reports no additional female genitourinary complaints Musculoskeletal: Reports no additional musculoskeletal complaints Skin/Breast: Reports system reviewed and no additional complaints, except as docu Psychiatric: Reports no additional psychiatric complaints Endocrine: Reports no additional endocrine complaints Hematologic/Lymphatic: Reports no additional hematologic/lymphatic complaints Allergic/Immunologic: Reports no additional allergic/immunologic complaints Reports system reviewed and no additional complaints, except as documented and Reports Abnormal speech present 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 Surgical History H/O hernia repair Family History Family History Other No family history of coronary artery disease Social History Social History Household Members: Family Housing: Apartment 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 have visiting nurse or other home services: No Alcohol intake: unknown Patient Tobacco Use Status: Former Tobacco user Tobacco use type: Cigarette Substance Use Type: Marijuana Advance Directives: Yes Advance Directives on File: Yes Advance Directives Date on File: 08/21/22 service: No Current occupational status: disabled Physical Exam ED Vital Signs: Vital Signs - 24 hr 04/05/23 08:05 04/05/23 08:52 04/05/23 09:28 Temperature 103 F H 98.3 F Pulse Rate 146 H 140 H 136 H Respiratory Rate 18 24 H 20 Blood Pressure 104/63 124/73 102/54 L Pulse Oximetry 99 98 97 Oxygen Delivery Method Room Air Room Air Room Air 04/05/23 10:07 04/05/23 10:30 04/05/23 10:52 Temperature 98.7 F Pulse Rate 130 H 131 H 130 H Respiratory Rate 16 18 16 Blood Pressure 83/44 L 91/51 L 87/48 L Pulse Oximetry 98 98 Oxygen Delivery Method Room Air Room Air 04/05/23 11:09 04/05/23 11:22 04/05/23 12:06 Temperature 97.6 F Pulse Rate 131 H 132 H 126 H Respiratory Rate 22 H 20 Blood Pressure 89/52 L 88/53 L 104/63 Pulse Oximetry 98 99 Oxygen Delivery Method Room Air Room Air 04/05/23 12:10 04/05/23 12:13 04/05/23 12:25 Temperature Pulse Rate 125 H 120 H Respiratory Rate Blood Pressure 87/54 L 104/63 107/70 Pulse Oximetry Oxygen Delivery Method 04/05/23 12:44 04/05/23 12:46 04/05/23 13:14 Temperature Pulse Rate 122 H 79 116 H Respiratory Rate 24 H 20 Blood Pressure 118/72 118/72 93/60 Pulse Oximetry 98 Oxygen Delivery Method Room Air Room Air 04/05/23 13:45 04/05/23 13:57 04/05/23 14:05 Temperature Pulse Rate 123 H 124 H 121 H Respiratory Rate 22 H 23 H Blood Pressure 110/73 110/73 110/73 Pulse Oximetry 98 97 Oxygen Delivery Method Room Air Room Air 04/05/23 14:37 04/05/23 14:57 Temperature 98 F Pulse Rate 129 H 124 H Respiratory Rate 24 H 16 Blood Pressure 95/62 95/57 L Pulse Oximetry 98 99 Oxygen Delivery Method Room Air Room Air BMI result Body Mass Index 24.1 Vital signs have been reviewed as appeared to be correct. Blood pressure normal. Heart rate normal. Respiration rate normal. Temperature elevated. Oxygen saturation normal. Appearance: Alert. Oriented X3. No acute distress. Head: Normal external exam. Normocephalic. Atraumatic. No Arnett signs noted. No raccoon eyes noted Eyes: PERRLA. EOMI. Conjunctiva and sclera normal. Eyelids normal. ENT: TM's Normal. Pharynx normal. Uvula midline. Moist mucous membranes. No trismus noted. No drooling noted. No muffled voice noted. Neck: Normal inspection. Neck supple. FROM. No adenopathy. Thyroid Normal. No meningeal signs. No neck mass noted. CVS: Normal heart rate and rhythm. Heart sound normal. No murmurs noted. Pulses normal throughout. Respiratory: No respiratory distress. Painless inspiration. Breath sounds normal. No wheezes/rales/rhonchi noted. Chest nontender. No accessory muscle usage noted or decreased air movement noted. Abdomen: Soft and nontender. Bowel sounds normal in all 4 quadrants. No distention noted. No organomegaly noted. No visible injury noted. Back: No CVA tenderness. Full range of motion noted. Skin: Skin warm and dry. Normal skin color. Normal skin turgor. No rashes/lesions/lacerations noted. Extremities: No lower extremity edema. Extremities exhibit normal range of motion. Extremities nontender. Neuro: Oriented X 3. Cranial nerve exam: II-XII are grossly intact No motor deficit. No sensory deficit. Reflexes normal. Course Course Course Narrative: 37-year-old male history of MS require chronic indwelling Villatoro cath. Presented with fever and generalize weakness, patient has a UTI, while patient in the emergency department became hypotensive and with lactic acidosis patient met criteria for septic shock, patient received 30 cc/kg normal saline, patient also received ceftriaxone and Zosyn (will discontinue ceftriaxone continue with Zosyn). The case discussed with Dr. Landaverde. Patient will be admitted to ICU will start on Levophed. Reevaluation(s) Reevaluation #1: FOCUSED EXAM: Patient received total of 4 L of normal saline IV, patient also received the antibiotic, improvement of blood pressure, with improvement of serum lactic acidosis also, patient is more oriented and able to provide more history now. Overall patient is improving. Will continue with Levophed and admission to ICU. Time: 13:43 Reevaluation #2: Patient is off Levophed, blood pressure has been in the 90s with mean arterial pressure above 65, good urine output patient clinically looking better, improvement of lactic acidosis, will downgrade his admission to medical floor. Time: 15:34 Medications Administered Generic Name Dose Route Start Last Admin Trade Name Freq PRN Reason Stop Dose Admin Norepinephrine Bitartrate 32 250 mls @ 0 mls/hr 04/05/23 11:00 04/05/23 13:57 mg/ Sodium Chloride IV 0 mcg/kg/min .Q0M LALO 0 mls/hr Titration Protocol Per Protocol Sodium Chloride 1,000 mls @ 999 mls/hr 04/05/23 14:59 04/05/23 15:08 Ns IV 04/05/23 15:59 999 mls/hr .Q1H1M ONE Administration Discontinued Medications Generic Name Dose Route Start Last Admin Trade Name Freq PRN Reason Stop Dose Admin Acetaminophen 650 mg 04/05/23 08:01 04/05/23 08:37 Acetaminophen 325 Mg Tablet PO 04/05/23 08:02 650 mg ONCE ONE Administration Sodium Chloride 1,000 mls @ 999 mls/hr 04/05/23 08:01 04/05/23 09:22 Ns IV 04/05/23 09:01 Infused .Q1H1M ONE Infusion Sodium Chloride 2,217 mls @ 2,217 mls/hr 04/05/23 08:46 04/05/23 10:36 Ns 30 ml/kg infuse over 1 hr (2217 ml) 04/05/23 09:45 Infused IV Infusion .Q1H STA Ceftriaxone Sodium 1 gm/ 50 mls @ 100 mls/hr 04/05/23 09:41 04/05/23 10:36 Sodium Chloride IV 04/05/23 10:10 Infused ONCE ONE Infusion Sodium Chloride 1,000 mls @ 999 mls/hr 04/05/23 11:25 04/05/23 12:20 Ns IV 04/05/23 12:25 Infused .Q1H1M ONE Infusion Piperacillin Sod/Tazobactam 50 mls @ 100 mls/hr 04/05/23 11:55 04/05/23 13:02 Sod 3.375 gm/ Sodium Chloride IV 04/05/23 12:24 Infused ONCE ONE Infusion Methylprednisolone Sodium Succinate 125 mg 04/05/23 12:57 04/05/23 13:10 Methylprednisolone Sod Succ 125 Mg/2 Ml Vial IVPUSH 04/05/23 12:58 125 mg ONCE ONE Administration Medical Decision Making Differential Diagnosis Differential Diagnoses: The differential diagnosis associated with the presentation includes (UTI, pneumonia, septic shock, lactic acidosis, severe electrolyte abnormalities, severe anemia.) Admission/Observation Consideration of admission/observation: Escalation of care including admission/observation considered Consult Healthcare Provider Management of the patient was discussed with: Defense Attorney (Dr. Landaverde) Lab Data MDM Lab Attestation statement: I reviewed the patient's lab results. 04/05/23 08:23 04/05/23 08:22 Labs: Lab Results 04/05/23 04/05/23 04/05/23 Range/Units 08:21 08:21 08:21 WBC (4.8-10.8) X10*3/uL RBC (4.60-5.80) X10*6/uL Hgb (14.0-18.0) g/dl Hct (42.0-52.0) % MCV (80.0-98.0) fL MCH (27.0-33.0) pg MCHC (31.0-36.0) g/dl RDW (11.0-16.0) % Plt Count (160-400) X10*3/uL MPV (9.4-12.4) fL Immature Gran % (Auto) (0.0-0.4) % Neut % (Auto) (45-73) % Lymph % (Auto) (20-40) % [place] % (Auto) (2-11) % Eos % (Auto) (0-4) % Baso % (Auto) (0-2) % Lymph # (Auto) (1.2-4.9) X10*3/uL [place] # (Auto) (0.1-1.2) X10*3/uL Eos # (Auto) (0.0-0.4) X10*3/uL Baso # (Auto) (0.0-0.2) X10*3/uL Abs Immat Gran (auto) (0.00-0.03) X10*3/uL Absolute Neuts (auto) (2.0-8.3) x10*3/uL Absolute Nucleated RBC (0.0-0.012) X10*3/uL Nucleated RBC % (auto) (0.0-0.2) /100WBC Smear Tech's Comments Sodium (135-145) mmol/L Potassium (3.3-5.1) mmol/L Chloride (96-108) mmol/L Carbon Dioxide (22-29) mmol/L Anion Gap (12-20) BUN (9-16) mg/dL Creatinine (0.5-1.4) mg/dL Estim Creat Clear Calc Estimated GFR Random Glucose (60-115) mg/dL Lactic Acid 3.3 H* (0.5-2.0) mmol/L Lactic Acid F/U @ 2Hr (0.5-2.0) mmol/L Lactic Acid F/U @ 4Hr (0.5-2.0) mmol/L Calcium (8.4-10.2) mg/dL Total Bilirubin (0.0-1.0) mg/dL Direct Bilirubin (0.0-0.5) mg/dL AST (5-37) U/L ALT (0-40) U/L Alkaline Phosphatase (39-117) U/L Troponin I High Sens 19.7 (<3.5-35.0) ng/L B-Natriuretic Peptide (<100) pg/mL Total Protein (6.5-8.0) g/dL Albumin (3.5-5.0) g/dL Lipase (8-78) U/L Urine Color Urine Appearance Urine pH (5.0-9.0) Ur Specific [place] (1.005-1.025) Urine Protein (Neg-Trace) mg/dL Urine Glucose (UA) (Negative) mg/dL Urine Ketones (Negative) mg/dL Urine Blood (Negative) Urine Nitrite (Negative) Ur Leukocyte Esterase (Negative) Urine RBC (0-2) /HPF Urine WBC (0-5) /HPF Ur Squamous Epith Cells (0-2) /HPF Urine Bacteria (None Seen) Hyaline Casts (0-2) /LPF Influenza Type A (PCR) NEGATIVE (Negative) Influenza Type B (PCR) NEGATIVE (Negative) RSV RNA Qual (PCR) NEGATIVE (Negative) SARS-CoV-2 RNA (RT-PCR) NEGATIVE (Negative) S. pyogenes GrpA SCOUT (Negative) 04/05/23 04/05/23 04/05/23 Range/Units 08:21 08:22 08:22 WBC (4.8-10.8) X10*3/uL RBC (4.60-5.80) X10*6/uL Hgb (14.0-18.0) g/dl Hct (42.0-52.0) % MCV (80.0-98.0) fL MCH (27.0-33.0) pg MCHC (31.0-36.0) g/dl RDW (11.0-16.0) % Plt Count (160-400) X10*3/uL MPV (9.4-12.4) fL Immature Gran % (Auto) (0.0-0.4) % Neut % (Auto) (45-73) % Lymph % (Auto) (20-40) % [place] % (Auto) (2-11) % Eos % (Auto) (0-4) % Baso % (Auto) (0-2) % Lymph # (Auto) (1.2-4.9) X10*3/uL [place] # (Auto) (0.1-1.2) X10*3/uL Eos # (Auto) (0.0-0.4) X10*3/uL Baso # (Auto) (0.0-0.2) X10*3/uL Abs Immat Gran (auto) (0.00-0.03) X10*3/uL Absolute Neuts (auto) (2.0-8.3) x10*3/uL Absolute Nucleated RBC (0.0-0.012) X10*3/uL Nucleated RBC % (auto) (0.0-0.2) /100WBC Smear Tech's Comments Sodium 137 (135-145) mmol/L Potassium 2.7 L D (3.3-5.1) mmol/L Chloride 97 (96-108) mmol/L Carbon Dioxide 24 (22-29) mmol/L Anion Gap 19 (12-20) BUN 21 H (9-16) mg/dL Creatinine 1.86 H (0.5-1.4) mg/dL Estim Creat Clear Calc 53.8 Estimated GFR 41 Random Glucose 79 (60-115) mg/dL Lactic Acid (0.5-2.0) mmol/L Lactic Acid F/U @ 2Hr (0.5-2.0) mmol/L Lactic Acid F/U @ 4Hr (0.5-2.0) mmol/L Calcium 9.7 (8.4-10.2) mg/dL Total Bilirubin 0.6 (0.0-1.0) mg/dL Direct Bilirubin 0.2 (0.0-0.5) mg/dL AST 20 (5-37) U/L ALT 20 (0-40) U/L Alkaline Phosphatase 41 (39-117) U/L Troponin I High Sens (<3.5-35.0) ng/L B-Natriuretic Peptide 154 H (<100) pg/mL Total Protein 7.4 (6.5-8.0) g/dL Albumin 3.8 (3.5-5.0) g/dL Lipase 19 (8-78) U/L Urine Color Urine Appearance Urine pH (5.0-9.0) Ur Specific [place] (1.005-1.025) Urine Protein (Neg-Trace) mg/dL Urine Glucose (UA) (Negative) mg/dL Urine Ketones (Negative) mg/dL Urine Blood (Negative) Urine Nitrite (Negative) Ur Leukocyte Esterase (Negative) Urine RBC (0-2) /HPF Urine WBC (0-5) /HPF Ur Squamous Epith Cells (0-2) /HPF Urine Bacteria (None Seen) Hyaline Casts (0-2) /LPF Influenza Type A (PCR) (Negative) Influenza Type B (PCR) (Negative) RSV RNA Qual (PCR) (Negative) SARS-CoV-2 RNA (RT-PCR) (Negative) S. pyogenes GrpA SCOUT Negative (Negative) 04/05/23 04/05/23 04/05/23 Range/Units 08:23 09:01 10:43 WBC 23.9 H (4.8-10.8) X10*3/uL RBC 5.51 (4.60-5.80) X10*6/uL Hgb 14.7 (14.0-18.0) g/dl Hct 44.2 (42.0-52.0) % MCV 80.2 (80.0-98.0) fL MCH 26.7 L (27.0-33.0) pg MCHC 33.3 (31.0-36.0) g/dl RDW 13.7 (11.0-16.0) % Plt Count 163 D (160-400) X10*3/uL MPV 11.6 (9.4-12.4) fL Immature Gran % (Auto) 2.2 H (0.0-0.4) % Neut % (Auto) 84.1 H (45-73) % Lymph % (Auto) 6.6 L (20-40) % [place] % (Auto) 6.8 (2-11) % Eos % (Auto) 0.0 (0-4) % Baso % (Auto) 0.3 (0-2) % Lymph # (Auto) 1.6 (1.2-4.9) X10*3/uL [place] # (Auto) 1.6 H (0.1-1.2) X10*3/uL Eos # (Auto) 0.0 (0.0-0.4) X10*3/uL Baso # (Auto) 0.1 (0.0-0.2) X10*3/uL Abs Immat Gran (auto) 0.52 H (0.00-0.03) X10*3/uL Absolute Neuts (auto) 20.1 H (2.0-8.3) x10*3/uL Absolute Nucleated RBC 0.000 (0.0-0.012) X10*3/uL Nucleated RBC % (auto) 0.0 (0.0-0.2) /100WBC Smear Tech's Comments VERIFIED Sodium (135-145) mmol/L Potassium (3.3-5.1) mmol/L Chloride (96-108) mmol/L Carbon Dioxide (22-29) mmol/L Anion Gap (12-20) BUN (9-16) mg/dL Creatinine (0.5-1.4) mg/dL Estim Creat Clear Calc Estimated GFR Random Glucose (60-115) mg/dL Lactic Acid (0.5-2.0) mmol/L Lactic Acid F/U @ 2Hr 2.4 H* (0.5-2.0) mmol/L Lactic Acid F/U @ 4Hr (0.5-2.0) mmol/L Calcium (8.4-10.2) mg/dL Total Bilirubin (0.0-1.0) mg/dL Direct Bilirubin (0.0-0.5) mg/dL AST (5-37) U/L ALT (0-40) U/L Alkaline Phosphatase (39-117) U/L Troponin I High Sens (<3.5-35.0) ng/L B-Natriuretic Peptide (<100) pg/mL Total Protein (6.5-8.0) g/dL Albumin (3.5-5.0) g/dL Lipase (8-78) U/L Urine Color Yellow Urine Appearance Cloudy Urine pH 5.5 (5.0-9.0) Ur Specific [place] >= 1.030 H (1.005-1.025) Urine Protein 100 (2+) H (Neg-Trace) mg/dL Urine Glucose (UA) Negative (Negative) mg/dL Urine Ketones Trace (Negative) mg/dL Urine Blood Large (3+) H (Negative) Urine Nitrite Negative (Negative) Ur Leukocyte Esterase Moderate (2+) H (Negative) Urine RBC 11-20 H (0-2) /HPF Urine WBC >50 H (0-5) /HPF Ur Squamous Epith Cells 11-20 (0-2) /HPF Urine Bacteria 2+ (None Seen) Hyaline Casts 3-5 (0-2) /LPF Influenza Type A (PCR) (Negative) Influenza Type B (PCR) (Negative) RSV RNA Qual (PCR) (Negative) SARS-CoV-2 RNA (RT-PCR) (Negative) S. pyogenes GrpA SCOUT (Negative) 04/05/23 Range/Units 13:03 WBC (4.8-10.8) X10*3/uL RBC (4.60-5.80) X10*6/uL Hgb (14.0-18.0) g/dl Hct (42.0-52.0) % MCV (80.0-98.0) fL MCH (27.0-33.0) pg MCHC (31.0-36.0) g/dl RDW (11.0-16.0) % Plt Count (160-400) X10*3/uL MPV (9.4-12.4) fL Immature Gran % (Auto) (0.0-0.4) % Neut % (Auto) (45-73) % Lymph % (Auto) (20-40) % [place] % (Auto) (2-11) % Eos % (Auto) (0-4) % Baso % (Auto) (0-2) % Lymph # (Auto) (1.2-4.9) X10*3/uL [place] # (Auto) (0.1-1.2) X10*3/uL Eos # (Auto) (0.0-0.4) X10*3/uL Baso # (Auto) (0.0-0.2) X10*3/uL Abs Immat Gran (auto) (0.00-0.03) X10*3/uL Absolute Neuts (auto) (2.0-8.3) x10*3/uL Absolute Nucleated RBC (0.0-0.012) X10*3/uL Nucleated RBC % (auto) (0.0-0.2) /100WBC Smear Tech's Comments Sodium (135-145) mmol/L Potassium (3.3-5.1) mmol/L Chloride (96-108) mmol/L Carbon Dioxide (22-29) mmol/L Anion Gap (12-20) BUN (9-16) mg/dL Creatinine (0.5-1.4) mg/dL Estim Creat Clear Calc Estimated GFR Random Glucose (60-115) mg/dL Lactic Acid (0.5-2.0) mmol/L Lactic Acid F/U @ 2Hr (0.5-2.0) mmol/L Lactic Acid F/U @ 4Hr 2.3 H* (0.5-2.0) mmol/L Calcium (8.4-10.2) mg/dL Total Bilirubin (0.0-1.0) mg/dL Direct Bilirubin (0.0-0.5) mg/dL AST (5-37) U/L ALT (0-40) U/L Alkaline Phosphatase (39-117) U/L Troponin I High Sens (<3.5-35.0) ng/L B-Natriuretic Peptide (<100) pg/mL Total Protein (6.5-8.0) g/dL Albumin (3.5-5.0) g/dL Lipase (8-78) U/L Urine Color Urine Appearance Urine pH (5.0-9.0) Ur Specific [place] (1.005-1.025) Urine Protein (Neg-Trace) mg/dL Urine Glucose (UA) (Negative) mg/dL Urine Ketones (Negative) mg/dL Urine Blood (Negative) Urine Nitrite (Negative) Ur Leukocyte Esterase (Negative) Urine RBC (0-2) /HPF Urine WBC (0-5) /HPF Ur Squamous Epith Cells (0-2) /HPF Urine Bacteria (None Seen) Hyaline Casts (0-2) /LPF Influenza Type A (PCR) (Negative) Influenza Type B (PCR) (Negative) RSV RNA Qual (PCR) (Negative) SARS-CoV-2 RNA (RT-PCR) (Negative) S. pyogenes GrpA SCOUT (Negative) Independent Interpretation I performed an independent interpretation of an: Plain X-Ray (Chest: No acute intrathoracic pathology.) Radiology Impression Discussion of test interpretation with radiology: I have reviewed the radiologist's reading. Chronic Conditions Patient?s care impacted by: Other (MS, chronic indwelling Villatoro catheter.) Critical Care Time Critical Care Time Critical Care Time: Yes Total Critical Care Time: 60 Attestation: I spent 60 minutes providing critical care service to the patient, this including time spent at the bedside to evaluate the patient, reassess the patient, monitoring vital signs, review labs, and radiographic studies, counseling the patient/family, discussing the case with consultants, disposition the patient. Discharge Plan Discharge Clinical Impression: Sepsis, Acute UTI Patient Disposition: Admitted As Inpatient
[2023-04-05 08:29] LABS: Basophils Absolute Auto 0.1 X10*3/uL (0.0-0.2); Basophils Percent Auto 0.3 % (0-2); Hematocrit 44.2 % (42.0-52.0); Hemoglobin 14.7 g/dl (14.0-18.0); Imm Gran Abs Auto 0.52 X10*3/uL (0.00-0.03); Imm Gran Pct Auto 2.2 % (0.0-0.4); Lymphocytes Absolute Auto 1.6 X10*3/uL (1.2-4.9); Lymphocytes Percent Auto 6.6 % (20-40); MANUAL DIFF FLAG SCAN; Mean Corpuscular HGB Conc 33.3 g/dl (31.0-36.0); Mean Corpuscular Hemoglobin 26.7 pg (27.0-33.0); Mean Corpuscular Volume 80.2 fL (80.0-98.0); Mean Platelet Volume 11.6 fL (9.4-12.4); Monocytes Absolute Auto 1.6 X10*3/uL (0.1-1.2); Monocytes Percent Auto 6.8 % (2-11); Neutrophils Absolute Auto 20.1 x10*3/uL (2.0-8.3); Neutrophils Percent Auto 84.1 % (45-73); Platelet Count 163 X10*3/uL (160-400); Red Blood Count 5.51 X10*6/uL (4.60-5.80); Red Cell Distribution Width 13.7 % (11.0-16.0); SCAN SMEAR FLAG 1; White Blood Count 23.9 X10*3/uL (4.8-10.8)
[2023-04-05] MEDS: 0.9 % Sodium Chloride 1,000 ML 999 ML IV ×3 (08:30→15:08)
[2023-04-05] MEDS: Acetaminophen 325 MG TABLET 650 MG PO (08:37)
[2023-04-05 08:44] LABS: Alanine Aminotransferase 20 U/L (0-40); Albumin Level 3.8 g/dL (3.5-5.0); Alkaline Phosphatase 41 U/L (39-117); Anion Gap 19 (12-20); Aspartate Amino Transferase 20 U/L (5-37); Bilirubin Direct 0.2 mg/dL (0.0-0.5); Bilirubin Total 0.6 mg/dL (0.0-1.0); Blood Urea Nitrogen 21 mg/dL (9-16); Calcium 9.7 mg/dL (8.4-10.2); Carbon Dioxide 24 mmol/L (22-29); Chloride 97 mmol/L (96-108); Creatinine Clr Calc Pharmacy 53.8; Estimated Glomerular Filt Rate 41; Glucose Random 79 mg/dL (60-115); Lipase 19 U/L (8-78); Potassium 2.7 mmol/L (3.3-5.1); Sodium 137 mmol/L (135-145); Total Protein 7.4 g/dL (6.5-8.0)
[2023-04-05 08:46] LABS: Lactic Acid 3.3 mmol/L (0.5-2.0)
[2023-04-05 08:49] LABS: IDNOW Serial# 08D9AD1C; Strep A Nucleic Acid Negative (Negative)
[2023-04-05 08:50] LABS: B Type Natriuretic Peptide 154 pg/mL (<100)
[2023-04-05 08:51] LABS: Troponin-I High Sensitivity 19.7 ng/L (<3.5-35.0)
[2023-04-05 08:54] LABS: SLIDE REVIEW VERIFIED
[2023-04-05 09:12] LABS: Appearance Urine Cloudy; Color Urine Yellow; Glucose Urine UA Negative (Negative); Leukocyte Esterase Urine Moderate (2+) (Negative); Nitrite Urine Negative (Negative); PH 5.5 (5.0-9.0); Specific Gravity - Urine >= 1.030 (1.005-1.025); UMIC TRIGGER UACC YES; Urine Blood Large (3+) (Negative); Urine Ketones Trace mg/dL (Negative); Urine Protein 100 (2+) mg/dL (Neg-Trace)
[2023-04-05 09:30] LABS: Bacteria Urine 2+ (None Seen); UACC Culture Trigger YES; WBC Urine >50 /HPF (0-5)
--- NOTE | 2023-04-05 09:31 | PHA.MEDREC ---
Pharmacy Consult ? Medication Reconciliation Pharmacy has completed the medication reconciliation. Spoke with patient and he confirmed his medications. He was recently prescribed Bactrim and gabapentin on 03/28/23 but he reports that he stopped taking them.
--- NOTE | 2023-04-05 09:44 | PC.NURSE ---
pt presented with rash around upper chest and collar
[2023-04-05 09:46] LABS: Influenza A PCR NEGATIVE (Negative); Influenza B PCR NEGATIVE (Negative); Resp Syncy Virus RNA Qual PCR NEGATIVE (Negative); SARS COV2 PCR INHOUSE NEGATIVE (Negative)
[2023-04-05] MEDS: cefTRIAXone sodium 1 GM in 0.9 % Sodium Chloride 50 ML IV (09:56)
[2023-04-05 10:26] LABS: Reflex Lactate? Lactic Acid Added
--- NOTE | 2023-04-05 10:47 | PC.NURSE ---
fever has decreased, fluids infused, approx 200 ml urine output, he is tolerating small sips of po fluid. he needs to be positioned in full upright position - he does state it has been recommended to him to use thick it but he refuses. no coughing but increased effort to swallow
[2023-04-05 11:21] LABS: ~Lactic Acid-LAB USE ONLY 2.4 mmol/L (0.5-2.0)
[2023-04-05] MEDS: Piperacillin Sodium/Tazobactam 3.375 GM in 0.9 % Sodium Chloride 50 ML IV ×2 (12:12→17:59)
[2023-04-05 12:48] LABS: Reflex Lactate? 2 Y
--- NOTE | 2023-04-05 12:58 | PC.NURSE ---
800ML URINARY OUTPUT TOTAL SINCE CHANGING HIS CATH, URINE IS LESS CONCENTRATED NOW. REMAINS ON NOREPI
[2023-04-05] MEDS: methylPREDNISolone Sod Succ 125 MG/2 ML VIAL IVPUSH (13:10)
[2023-04-05 13:29] LABS: ~Lactic Acid-LAB USE ONLY 2.3 mmol/L (0.5-2.0)
--- NOTE | 2023-04-05 14:11 | PC.NURSE ---
Addendum entered by Eric Marks 04/05/23 15:56: 1L WAS THE TOTAL OUTPUT SINCE CATH WAS REPLACED Original Note: pt burciaga bag drained 1000ml of urine
--- NOTE | 2023-04-05 14:29 | PM.IMHP ---
History of Present Illness Date of Service: 04/05/23 Chief Complaint: weakness, fever and not feeling well 37-year-old male with a PMH significant for?MS and remote history of cocaine use, chronic urinary retention with indwelling burciaga cather last changed on 04/02. He presents with fever, generalized weakness and malaise for at least one day, other symptoms include headache, UA is positive for UTI, CXR no PNA, lactic of 3, WBC 23K, HR in 130s and 140. 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 Family History Other No family history of coronary artery disease Surgical History H/O hernia repair Social History Household Members: Family Housing: Apartment 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 have visiting nurse or other home services: Yes (Visiting nurse and occupational therapist) Alcohol intake: unknown Patient Tobacco Use Status: Current everyday Tobacco user Tobacco use type: Cigarette Cigarettes Per Day: 0.25 Use of substances other than those prescribed or required for medical reasons: No Substance Use Type: Marijuana Currently Displaying Signs/Symptoms of Drug Intoxication Withdrawal: No Have you been hit, kicked, punched, or otherwise hurt by someone within the past year? If so, by whom?: No Do you feel safe in your current relationship?: No Current Relationship Is there a partner from a previous relationship who is making you feel unsafe now?: No Are you made to feel afraid or neglected: No Spiritual Healthcare Practices: n/a Orthodoxy Healthcare Practices: n/a Cultural Healthcare Practices: n/a Advance Directives: Yes Advance Directives on File: Yes Advance Directives Date on File: 08/21/22 Do you have thoughts of harming others: None Do you have a plan to hurt others: No Plan Recently lost weight without trying: No How much weight loss: Not applicable Eating poorly because of decreased appetite: No Nutrition screen score: 0 Nutrition Risks: Difficulty swallowing service: No Current occupational status: disabled Meds Allergies Allergy/AdvReac Type Severity Reaction Status Date / Time No Known Allergies Allergy Verified 05/02/22 14:35 [No Known Allergies*] Active Medications: Current Medications Norepinephrine Bitartrate 32 (mg/ Sodium Chloride) 250 mls @ 0 mls/hr IV .Q0M LALO; Protocol Last Titration: 04/05/23 13:57 Dose: 0 mcg/kg/min, 0 mls/hr Pharmacy Consult (Consult Rx Perform Med Rec) 1 each MISCELLANE ONCE PRN PRN Reason: Consult order Home Medications Medication Instructions Recorded Confirmed Last Taken Type cholecalciferol (vitamin D3) 50 1 cap PO DAILY 09/18/21 04/05/23 01/20/22 History mcg (2,000 unit) capsule multivitamin 1 tab PO DAILY 08/20/22 04/05/23 Unknown History omega-3 300 mg-dha 120 mg-epa 180 1 cap PO DAILY 08/20/22 04/05/23 Unknown History mg-fish oil 1,000 mg capsule acetaminophen 500 mg tablet 500 mg PO Q6H PRN mild pain 04/05/23 04/05/23 Unknown History baclofen 10 mg tablet 10 mg PO TID 04/05/23 04/05/23 Unknown History Physical Exam Vital Signs and Narrative: Vital Signs: Last Vital Signs Temp 97.6 F 04/05/23 11:09 Pulse 121 H 04/05/23 14:05 Resp 23 H 04/05/23 14:05 BP 110/73 04/05/23 14:05 Pulse Ox 97 04/05/23 14:05 O2 Del Method Room Air 04/05/23 14:05 BMI result Body Mass Index 24.1 Const: Other: Constitutional: Alert, in no distress, Mental Status: Oriented to person, place and time. Eyes: Pupils are equal, round and reactive to light. Ear, Nose and Throat: Oropharynx clear, mucous membranes moist. Respiratory: Clear to auscultation. No wheezing, rales or rhonchi. Cardiovascular: S1 S2 regular. No murmurs, rubs or gallops. Gastrointestinal: Abdomen soft, non-tender, non-distended. Normal bowel sounds.? Neurologic: Cranial nerves II-XII grossly intact. No focal neurological deficits. Moves all extremities spontaneously.? Skin: No rashes or lesions.? Musculoskeletal: No cyanosis or clubbing. Psychiatric: Normal mood and affect? Results Labs 04/05/23 08:23 04/05/23 08:22 Labs: Laboratory Results - last 24 hr 04/05/23 04/05/23 04/05/23 08:21 08:21 08:21 MCV MCH MCHC RDW Plt Count MPV Immature Gran % (Auto) Neut % (Auto) Lymph % (Auto) [place] % (Auto) Eos % (Auto) Baso % (Auto) Lymph # (Auto) [place] # (Auto) Eos # (Auto) Baso # (Auto) Abs Immat Gran (auto) Absolute Neuts (auto) Absolute Nucleated RBC Nucleated RBC % (auto) Smear Tech's Comments Anion Gap Estim Creat Clear Calc Estimated GFR Random Glucose Lactic Acid 3.3 H* Lactic Acid F/U @ 2Hr Lactic Acid F/U @ 4Hr Calcium Total Bilirubin Direct Bilirubin AST ALT Alkaline Phosphatase Troponin I High Sens 19.7 B-Natriuretic Peptide Total Protein Albumin Lipase Urine Color Urine Appearance Urine pH Ur Specific [place] Urine Protein Urine Glucose (UA) Urine Ketones Urine Blood Urine Nitrite Ur Leukocyte Esterase Urine RBC Urine WBC Ur Squamous Epith Cells Urine Bacteria Hyaline Casts Influenza Type A (PCR) NEGATIVE Influenza Type B (PCR) NEGATIVE RSV RNA Qual (PCR) NEGATIVE SARS-CoV-2 RNA (RT-PCR) NEGATIVE S. pyogenes GrpA SCOUT 04/05/23 04/05/23 04/05/23 08:21 08:22 08:22 MCV MCH MCHC RDW Plt Count MPV Immature Gran % (Auto) Neut % (Auto) Lymph % (Auto) [place] % (Auto) Eos % (Auto) Baso % (Auto) Lymph # (Auto) [place] # (Auto) Eos # (Auto) Baso # (Auto) Abs Immat Gran (auto) Absolute Neuts (auto) Absolute Nucleated RBC Nucleated RBC % (auto) Smear Tech's Comments Anion Gap 19 Estim Creat Clear Calc 53.8 Estimated GFR 41 Random Glucose 79 Lactic Acid Lactic Acid F/U @ 2Hr Lactic Acid F/U @ 4Hr Calcium 9.7 Total Bilirubin 0.6 Direct Bilirubin 0.2 AST 20 ALT 20 Alkaline Phosphatase 41 Troponin I High Sens B-Natriuretic Peptide 154 H Total Protein 7.4 Albumin 3.8 Lipase 19 Urine Color Urine Appearance Urine pH Ur Specific [place] Urine Protein Urine Glucose (UA) Urine Ketones Urine Blood Urine Nitrite Ur Leukocyte Esterase Urine RBC Urine WBC Ur Squamous Epith Cells Urine Bacteria Hyaline Casts Influenza Type A (PCR) Influenza Type B (PCR) RSV RNA Qual (PCR) SARS-CoV-2 RNA (RT-PCR) S. pyogenes GrpA SCOUT Negative 04/05/23 04/05/23 04/05/23 08:23 09:01 10:43 MCV 80.2 MCH 26.7 L MCHC 33.3 RDW 13.7 Plt Count 163 D MPV 11.6 Immature Gran % (Auto) 2.2 H Neut % (Auto) 84.1 H Lymph % (Auto) 6.6 L [place] % (Auto) 6.8 Eos % (Auto) 0.0 Baso % (Auto) 0.3 Lymph # (Auto) 1.6 [place] # (Auto) 1.6 H Eos # (Auto) 0.0 Baso # (Auto) 0.1 Abs Immat Gran (auto) 0.52 H Absolute Neuts (auto) 20.1 H Absolute Nucleated RBC 0.000 Nucleated RBC % (auto) 0.0 Smear Tech's Comments VERIFIED Anion Gap Estim Creat Clear Calc Estimated GFR Random Glucose Lactic Acid Lactic Acid F/U @ 2Hr 2.4 H* Lactic Acid F/U @ 4Hr Calcium Total Bilirubin Direct Bilirubin AST ALT Alkaline Phosphatase Troponin I High Sens B-Natriuretic Peptide Total Protein Albumin Lipase Urine Color Yellow Urine Appearance Cloudy Urine pH 5.5 Ur Specific [place] >= 1.030 H Urine Protein 100 (2+) H Urine Glucose (UA) Negative Urine Ketones Trace Urine Blood Large (3+) H Urine Nitrite Negative Ur Leukocyte Esterase Moderate (2+) H Urine RBC 11-20 H Urine WBC >50 H Ur Squamous Epith Cells 11-20 Urine Bacteria 2+ Hyaline Casts 3-5 Influenza Type A (PCR) Influenza Type B (PCR) RSV RNA Qual (PCR) SARS-CoV-2 RNA (RT-PCR) S. pyogenes GrpA SCOUT 04/05/23 13:03 MCV MCH MCHC RDW Plt Count MPV Immature Gran % (Auto) Neut % (Auto) Lymph % (Auto) [place] % (Auto) Eos % (Auto) Baso % (Auto) Lymph # (Auto) [place] # (Auto) Eos # (Auto) Baso # (Auto) Abs Immat Gran (auto) Absolute Neuts (auto) Absolute Nucleated RBC Nucleated RBC % (auto) Smear Tech's Comments Anion Gap Estim Creat Clear Calc Estimated GFR Random Glucose Lactic Acid Lactic Acid F/U @ 2Hr Lactic Acid F/U @ 4Hr 2.3 H* Calcium Total Bilirubin Direct Bilirubin AST ALT Alkaline Phosphatase Troponin I High Sens B-Natriuretic Peptide Total Protein Albumin Lipase Urine Color Urine Appearance Urine pH Ur Specific [place] Urine Protein Urine Glucose (UA) Urine Ketones Urine Blood Urine Nitrite Ur Leukocyte Esterase Urine RBC Urine WBC Ur Squamous Epith Cells Urine Bacteria Hyaline Casts Influenza Type A (PCR) Influenza Type B (PCR) RSV RNA Qual (PCR) SARS-CoV-2 RNA (RT-PCR) S. pyogenes GrpA SCOUT Imaging Radiologist's Impressions: Impressions Chest X-Ray 04/05/23 08:16 IMPRESSION: No acute cardiopulmonary findings. Assessment and Plan (1) Sepsis: Status: Acute (2) Acute UTI: Status: Acute (3) Septic shock: Status: Acute Plan 37 year old male with MS and chronic indwelling burciaga cath here with fever chills, WBC 23K, tachycardia, lactic acidosis, hypotension--clinical presentation c/w septic shock, likely from gram negative rods of urinary origin Septic shock d/t UTI and likely gram negative shaka bacteremia (WBC 23, HR 130, SBP mostly 80s earlier, now over 100). Was briefly on Levophed in ED, ICU evaluated but deemed appropriate for floor. -Treated with Ceftriaxone in EDx 1, Zosyn starting 04/05. Follow cultures -continue IVF (NS) to matintain SBP >90, if BP persistently low will need to be reconsider from the ICU -IV solu cortef MS --i don't think there is acute exacerbation, will ask nephro if need anything now Acute lactic acidosis--d/t sepsis, received adequate amount of fluid Dysphagia liekly related to MS get swallow eval DVT prophylaxis: Lovenox Need for inaptient: SEptic shock nees IVF and IV Abx, Time Spent With Patient Time: Total time managing care of this patient today ____ minutes. Quality Stroke Does the patient have a stroke diagnosis?: No VTE Prior VTE?: No VTE Risk Level:: Medical - moderate - high VTE Device Contraindication: Treatment Not Indicated VTE Drug Contraindication: N/A - Med Ordered
--- NOTE | 2023-04-05 14:59 | PC.NURSE ---
pt sitting up in bed, asking for water. takes small sips tolerates well. pt looking better then when he presented, skin tone normal for ethnicity. patient likes to have conversation while at the bedside
[2023-04-05] MEDS: 0.9 % Sodium Chloride 1,000 ML 150 ML IVCONT ×3 (15:55→21:56)
--- NOTE | 2023-04-05 16:49 | PC.NURSE ---
report given for admission
[2023-04-05] MEDS: Hydrocortisone Sod Succ/PF 100 MG VIAL IVPUSH (18:00)
[2023-04-05] MEDS: Baclofen 10 MG TABLET PO (19:59)
[2023-04-06] VITALS (8 sets, daily range): BP systolic 97–119; BP diastolic 58–82; PULSE 73–102; RESP 14–20; TEMP 36.1–37.9; O2SAT 97–100
[2023-04-06] MEDS: Piperacillin Sodium/Tazobactam 3.375 GM in 0.9 % Sodium Chloride 50 ML IV ×4 (00:13→17:26)
[2023-04-06] MEDS: Hydrocortisone Sod Succ/PF 100 MG VIAL IVPUSH ×3 (01:56→17:27)
[2023-04-06] MEDS: 0.9 % Sodium Chloride 1,000 ML 150 ML IVCONT ×3 (05:39→21:30)
[2023-04-06 08:35] LABS: Hematocrit 32.7 % (42.0-52.0); Mean Corpuscular HGB Conc 33.6 g/dl (31.0-36.0); Mean Corpuscular Hemoglobin 26.6 pg (27.0-33.0); Mean Platelet Volume 12.2 fL (9.4-12.4); Platelet Count 126 X10*3/uL (160-400); Red Blood Count 4.14 X10*6/uL (4.60-5.80); Red Cell Distribution Width 13.6 % (11.0-16.0); White Blood Count 27.6 X10*3/uL (4.8-10.8)
[2023-04-06 08:53] LABS: Anion Gap 13 (12-20); Calcium 8.8 mg/dL (8.4-10.2); Carbon Dioxide 24 mmol/L (22-29); Chloride 109 mmol/L (96-108); Glucose Random 121 mg/dL (60-115); Potassium 2.6 mmol/L (3.3-5.1); Sodium 143 mmol/L (135-145)
[2023-04-06] MEDS: Baclofen 10 MG TABLET PO (09:02)
[2023-04-06 09:03] LABS: Blood Urea Nitrogen 9 mg/dL (9-16); Creatinine Clr Calc Pharmacy 161.5; Estimated Glomerular Filt Rate > 60
[2023-04-06] MEDS: Cholecalciferol (Vitamin D3) 25 MCG TABLET 50 MCG PO (09:03)
[2023-04-06] MEDS: Multivitamin TABLET 1 TAB PO (09:03)
[2023-04-06] MEDS: 0.9 % Sodium Chloride Flush 3 ML SYRINGE IVFLUSH (09:04)
--- NOTE | 2023-04-06 09:23 | PC.NURSE ---
pt had difficulty taking AM pills, water leaked from mouth and patient was initially unsure whether or not pills went down.Patient did need to cough to clear throat and mouth was inspected and no pills were found. Pts vital signs WNL and patient is now comfortable in bed with no complaints. MD notified and patient was made NPO pending swallow eval by speech therapy
--- NOTE | 2023-04-06 10:58 | MHC.CM.PN ---
IMM DELIVERED PT LIVES WITH FAMILY WHO PROVIDE SUPPORT WITH BATTERY TESTER FIELD HOURS (9 AM - 1 PM DAILY, 7 PM TO 9 PM DAILY) PT BELIEVES HE IS ACTIVE WITH A VNA BUT UNSURE IF [facility] OR NOT? REFERRAL SENT TO [facility]. MESSAGE LEFT FOR HCP TO CONFIRM THIS (DARIO DYLON [phone]) AWAITING RETURN CALL. PT IS W/C BOUND AT BASELINE, STATES HE IS ABLE TO TAKE BABY STEPS. + COVID VAX + HCP ON FILE. PCP DR. COLLINS AT [facility] DP: HOME, RESUMPTION OF BATTERY TESTER FIELD/VNA SERVICES IS ANTICIPATED. PT REQUESTS BLS TRANSFER ON DC. CM WILL CONTINUE TO FOLLOW FOR DC NEEDS/PLAN
--- NOTE | 2023-04-06 12:13 | P.PNIM_ITS ---
Subjective Subjective Date of Service: 04/06/23 Interval History: f/u on septic shock, UTI interval history: better, Tachycardia resolved, BP within normal, WBC is higher no fever Physical Exam Vital Signs: Vital Signs: Last Vital Signs Temp 98.3 F 04/06/23 11:25 Pulse 89 04/06/23 11:25 Resp 20 04/06/23 11:25 BP 109/66 04/06/23 11:25 Pulse Ox 98 04/06/23 11:25 O2 Del Method Room Air 04/06/23 11:25 BMI result Body Mass Index 27.6 Objective Data Active Medications Acetaminophen (Acetaminophen 325 Mg Tablet) 650 mg PO Q6H PRN PRN Reason: Pain, Mild (Pain Scale 1-3) Baclofen (Baclofen 10 Mg Tablet) 10 mg PO TID [facility] Last Admin: 04/06/23 09:02 Dose: 10 mg Documented By: ZULEMA Enoxaparin Sodium (Enoxaparin Sodium 40 Mg/0.4 Ml Syringe) 40 mg SUBCUT Q24H [facility] Last Admin: 04/05/23 18:05 Dose: Not Given Documented By: ZULEMA Non-Admin Reason: pt was in ED Hydrocortisone Sodium Succinate (Hydrocortisone Sod Succ/Pf 100 Mg Vial) 100 mg IVPUSH Q8H [facility] Last Admin: 04/06/23 09:03 Dose: 100 mg Documented By: ZULEMA Sodium Chloride (Ns) 1,000 mls @ 150 mls/hr IVCONT .Q6H40M [facility] Last Admin: 04/06/23 05:39 Dose: 150 mls/hr Documented By: ELIZA Piperacillin Sod/Tazobactam (Sod 3.375 gm/ Sodium Chloride) 50 mls @ 100 mls/hr IV Q6H [facility] Last Infusion: 04/06/23 06:28 Dose: 0 mls/hr Documented By: ELIZA Magnesium Hydroxide (Milk Of Magnesia 30 Ml Oral.Susp) 30 ml PO DAILY PRN PRN Reason: Constipation Melatonin (Melatonin 3 Mg Tablet) 6 mg PO BEDTIME PRN PRN Reason: Insomnia Multivitamins/Vitamin C (Multivitamin Tablet) 1 tab PO DAILY [facility] Last Admin: 04/06/23 09:03 Dose: 1 tab Documented By: ZULEMA Ondansetron HCl (Ondansetron Hcl 4 Mg/2 Ml Vial) 4 mg IVPUSH Q8H PRN PRN Reason: Nausea and Vomiting Pharmacy Consult (Consult Rx Perform Med Rec) 1 each MISCELLANE ONCE PRN PRN Reason: Consult order Sodium Chloride (0.9 % Sodium Chloride Flush 3 Ml Syringe) 3 ml IVFLUSH QSHIFT [facility] Last Admin: 04/06/23 09:04 Dose: 3 ml Documented By: ZULEMA Vitamin D (Cholecalciferol (Vitamin D3) 25 Mcg Tablet) 50 mcg PO DAILY [facility] Last Admin: 04/06/23 09:03 Dose: 50 mcg Documented By: ZULEMA Labs 04/06/23 08:04 04/06/23 08:04 Labs: Laboratory Results - last 24 hr 04/05/23 04/06/23 04/06/23 13:03 08:04 08:04 MCV 79.0 L MCH 26.6 L MCHC 33.6 RDW 13.6 Plt Count 126 L MPV 12.2 Absolute Nucleated RBC 0.000 Nucleated RBC % (auto) 0.0 Anion Gap 13 Estim Creat Clear Calc 161.5 Estimated GFR > 60 Random Glucose 121 H Lactic Acid F/U @ 4Hr 2.3 H* Calcium 8.8 D Microbiology Microbiology Results: Microbiology 04/05/23 09:37 Blood Culture - Preliminary Blood - Venous No growth after 24 hours. 04/05/23 08:29 Blood Culture - Preliminary Blood - Venous No growth after 24 hours. Assessment and Plan (1) Septic shock: Status: Acute (2) Sepsis: Status: Acute (3) Acute UTI: Status: Acute Plan 37 year old male with MS and chronic indwelling burciaga cath here with fever chills, WBC 23K, tachycardia, lactic acidosis, hypotension--clinical presentation c/w septic shock, likely from gram negative rods of urinary origin. He was briefly treated with vasopressor in ED when BP did not respond to IVF (4 liters) total Septic shock d/t UTI and likely gram negative shaka sepsis (WBC 23, HR 130, SBP mostl in 80s)..Overall improving. WBC is 27K due to steroid, HR now normal, and SBP within normal as well. -Treated with Ceftriaxone in EDx 1, continue Zosyn started 04/05. Follow cultures -continue IVF (NS) to matintain SBP >90, no longer in shock, reduce IVF to 150/hr, making good urine -IV solu cortef for presumed adrenal insuficiency on chronic steroid, reduce to 50 q8 by tomorrow and ultimately back on Prednisone CAMRYN d/t renal hypoperfusion from sepsis, resolved. Cr 1.87 on 04/05, 0.62 on 04/06 MS --Unclear if possible exacerbation with sepsis, and dysphagai.. Neuro consult Acute lactic acidosis--d/t sepsis, received adequate amount of fluid, improved Dysphagia liekly related to MS get swallow eval, NPO for now DVT prophylaxis: Lovenox Need for inaptient: SEptic shock nees IVF and IV Abx, this cannot be done on outpatient basis at this time. Time Spent With Patient Time: Total time managing care of this patient today ____ minutes. Quality Stroke Does the patient have a stroke diagnosis?: No VTE Prior VTE?: No VTE Risk Level:: Medical - moderate - high VTE Device Contraindication: Treatment Not Indicated VTE Drug Contraindication: N/A - Med Ordered
[2023-04-06] MEDS: Enoxaparin Sodium 40 MG/0.4 ML SYRINGE SUBCUT (17:26)
[2023-04-07] VITALS (7 sets, daily range): BP systolic 107–134; BP diastolic 72–82; PULSE 71–82; RESP 18–20; TEMP 36.4–37.3; O2SAT 95–99
[2023-04-07] MEDS: Piperacillin Sodium/Tazobactam 3.375 GM in 0.9 % Sodium Chloride 50 ML IV ×4 (00:11→18:08)
[2023-04-07] MEDS: Hydrocortisone Sod Succ/PF 100 MG VIAL IVPUSH ×2 (02:15→11:50)
[2023-04-07] MEDS: Potassium Chloride/H20 10 MEQ/100 ML PIGGYBACK 100 MEQ IV ×5 (02:26→16:01)
[2023-04-07] MEDS: 0.9 % Sodium Chloride 1,000 ML 150 ML IVCONT ×2 (03:59→11:57)
[2023-04-07 07:09] LABS: Hematocrit 31.5 % (42.0-52.0); Hemoglobin 10.8 g/dl (14.0-18.0); Mean Corpuscular HGB Conc 34.3 g/dl (31.0-36.0); Mean Corpuscular Volume 78.8 fL (80.0-98.0); Mean Platelet Volume 12.8 fL (9.4-12.4); Platelet Count 109 X10*3/uL (160-400); Red Cell Distribution Width 13.5 % (11.0-16.0); White Blood Count 19.6 X10*3/uL (4.8-10.8)
[2023-04-07 08:37] LABS: Anion Gap 14 (12-20); Blood Urea Nitrogen 13 mg/dL (9-16); Calcium 8.7 mg/dL (8.4-10.2); Carbon Dioxide 22 mmol/L (22-29); Chloride 112 mmol/L (96-108); Estimated Glomerular Filt Rate > 60; Glucose Random 93 mg/dL (60-115); Sodium 145 mmol/L (135-145)
--- NOTE | 2023-04-07 09:10 | P.CNNE_ITS ---
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 He was presently seeing a neurologist in [place]. He came to hospital with generalized weakness fever and lethargy and was noted to have UTI. He stated that recently he was treated with probably plasmapheresis. 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 Family History Family History Other No family history of coronary artery disease Surgical History Surgical History H/O hernia repair Social History Social History Household Members: Family Housing: Apartment 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 have visiting nurse or other home services: Yes (Visiting nurse and occupational therapist) Alcohol intake: unknown Patient Tobacco Use Status: Current everyday Tobacco user Tobacco use type: Cigarette Cigarettes Per Day: 0.25 Use of substances other than those prescribed or required for medical reasons: No Substance Use Type: Marijuana Currently Displaying Signs/Symptoms of Drug Intoxication Withdrawal: No Have you been hit, kicked, punched, or otherwise hurt by someone within the past year? If so, by whom?: No Do you feel safe in your current relationship?: No Current Relationship Is there a partner from a previous relationship who is making you feel unsafe now?: No Are you made to feel afraid or neglected: No Spiritual Healthcare Practices: n/a Yazidi Healthcare Practices: n/a Cultural Healthcare Practices: n/a Advance Directives: Yes Advance Directives on File: Yes Advance Directives Date on File: 08/21/22 Do you have thoughts of harming others: None Do you have a plan to hurt others: No Plan Recently lost weight without trying: No How much weight loss: Not applicable Eating poorly because of decreased appetite: No Nutrition screen score: 0 Nutrition Risks: Difficulty swallowing service: No Current occupational status: disabled Meds Allergies Allergy/AdvReac Type Severity Reaction Status Date / Time No Known Allergies Allergy Verified 05/02/22 14:35 [No Known Allergies*] Active Medications: Current Medications Acetaminophen (Acetaminophen 325 Mg Tablet) 650 mg PO Q6H PRN PRN Reason: Pain, Mild (Pain Scale 1-3) Baclofen (Baclofen 10 Mg Tablet) 10 mg PO TID [facility] Last Admin: 04/06/23 21:28 Dose: Not Given Enoxaparin Sodium (Enoxaparin Sodium 40 Mg/0.4 Ml Syringe) 40 mg SUBCUT Q24H [facility] Last Admin: 04/06/23 17:26 Dose: 40 mg Hydrocortisone Sodium Succinate (Hydrocortisone Sod Succ/Pf 100 Mg Vial) 100 mg IVPUSH Q8H [facility] Last Admin: 04/07/23 02:15 Dose: 100 mg Sodium Chloride (Ns) 1,000 mls @ 150 mls/hr IVCONT .Q6H40M [facility] Last Admin: 04/07/23 03:59 Dose: 150 mls/hr Piperacillin Sod/Tazobactam (Sod 3.375 gm/ Sodium Chloride) 50 mls @ 100 mls/hr IV Q6H [facility] Last Infusion: 04/07/23 07:46 Dose: Infused Magnesium Hydroxide (Milk Of Magnesia 30 Ml Oral.Susp) 30 ml PO DAILY PRN PRN Reason: Constipation Melatonin (Melatonin 3 Mg Tablet) 6 mg PO BEDTIME PRN PRN Reason: Insomnia Multivitamins/Vitamin C (Multivitamin Tablet) 1 tab PO DAILY [facility] Last Admin: 04/06/23 09:03 Dose: 1 tab Ondansetron HCl (Ondansetron Hcl 4 Mg/2 Ml Vial) 4 mg IVPUSH Q8H PRN PRN Reason: Nausea and Vomiting Pharmacy Consult (Consult Rx Perform Med Rec) 1 each MISCELLANE ONCE PRN PRN Reason: Consult order Vitamin D (Cholecalciferol (Vitamin D3) 25 Mcg Tablet) 50 mcg PO DAILY [facility] Last Admin: 04/06/23 09:03 Dose: 50 mcg Home Medications Medication Instructions Recorded Confirmed Last Taken Type cholecalciferol (vitamin D3) 50 1 cap PO DAILY 09/18/21 04/05/23 01/20/22 History mcg (2,000 unit) capsule multivitamin 1 tab PO DAILY 08/20/22 04/05/23 Unknown History omega-3 300 mg-dha 120 mg-epa 180 1 cap PO DAILY 08/20/22 04/05/23 Unknown History mg-fish oil 1,000 mg capsule acetaminophen 500 mg tablet 500 mg PO Q6H PRN mild pain 04/05/23 04/05/23 Unknown History baclofen 10 mg tablet 10 mg PO TID 04/05/23 04/05/23 Unknown History Physical Exam Vital Signs: Vital Signs: Last Vital Signs Temp 98.8 F 04/07/23 07:30 Pulse 71 04/07/23 07:30 Resp 20 04/07/23 07:30 BP 115/77 04/07/23 07:30 Pulse Ox 95 04/07/23 07:30 O2 Del Method Room Air 04/07/23 07:30 BMI result Body Mass Index 27.6 Neuro: Other: Alert and awake with his normal or usual speech. He recognized me. Face was symmetrical. There was no obvious arm weakness. Moderate paraparesis noted. Results Labs 04/07/23 05:50 04/07/23 05:50 Labs: Short CBC 04/07/23 Range/Units 05:50 WBC 19.6 H (4.8-10.8) X10*3/uL Hgb 10.8 L (14.0-18.0) g/dl Hct 31.5 L (42.0-52.0) % Plt Count 109 L (160-400) X10*3/uL BMP 04/07/23 05:50 Sodium 145 Potassium 3.0 L Chloride 112 H Carbon Dioxide 22 BUN 13 Creatinine 0.65 Calcium 8.7 Microbiology Microbiology Results: Microbiology 04/05/23 Unknown Urine Catheterized - Villatoro Catheter Urine Culture - Final 04/05/23 09:37 Blood - Venous Blood Culture - Preliminary No growth after 24 hours. 04/05/23 08:29 Blood - Venous Blood Culture - Preliminary No growth after 24 hours. 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 Is present illness is likely due to infection and should be treated accordingly. No intervention for demyelinating disease is recommended at this time. He should follow-up with his neurologist after this illness is over. Time Spent With Patient Time: Total time managing care of this patient today ____ minutes. Procedures Date of Service Date of Service: 04/07/23
[2023-04-07] MEDS: Baclofen 10 MG TABLET PO ×3 (11:52→20:41)
--- NOTE | 2023-04-07 15:27 | P.PNIM_ITS ---
Subjective Subjective Date of Service: 04/07/23 Interval History: feeling hungry complaining of getting so many medications but no food, denies fever chills, denies headache dizziness, complain of difficulty swallowing therefore made NPO yesterday, denies coughing. Review of Systems all other systems reviewed and negative Physical Exam Vital Signs: Vital Signs: Last Vital Signs Temp 98.8 F 04/07/23 15:15 Pulse 79 04/07/23 15:15 Resp 18 04/07/23 15:15 BP 122/80 04/07/23 15:15 Pulse Ox 99 04/07/23 15:15 O2 Del Method Room Air 04/07/23 15:15 BMI result Body Mass Index 27.6 Const: Other: General awake alert, resting comfortably in no acute distress. Neck no JVD. CVS regular rate rhythm, Respiratory lungs clear to auscultation, no respiratory distress, no wheeze, no rhonchi. Gastrointestinal abdomen soft, nontender, bowel sounds audible, Extremities no edema. Neuro moving all 4 extremity speech clear, moderate Paraparesis. Skin no rash psych appropriate affect Objective Data Active Medications Acetaminophen (Acetaminophen 325 Mg Tablet) 650 mg PO Q6H PRN PRN Reason: Pain, Mild (Pain Scale 1-3) Baclofen (Baclofen 10 Mg Tablet) 10 mg PO TID [facility] Last Admin: 04/07/23 11:52 Dose: 10 mg Documented By: MARIA L Enoxaparin Sodium (Enoxaparin Sodium 40 Mg/0.4 Ml Syringe) 40 mg SUBCUT Q24H [facility] Last Admin: 04/06/23 17:26 Dose: 40 mg Documented By: ZULEMA Hydrocortisone Sodium Succinate (Hydrocortisone Sod Succ/Pf 100 Mg Vial) 100 mg IVPUSH Q8H [facility] Last Admin: 04/07/23 11:50 Dose: 100 mg Documented By: MARIA L Sodium Chloride (Ns) 1,000 mls @ 150 mls/hr IVCONT .Q6H40M [facility] Last Admin: 04/07/23 11:57 Dose: 150 mls/hr Documented By: MARIA L Piperacillin Sod/Tazobactam (Sod 3.375 gm/ Sodium Chloride) 50 mls @ 100 mls/hr IV Q6H [facility] Last Infusion: 04/07/23 13:05 Dose: 0 mls/hr Documented By: MARIA L Magnesium Hydroxide (Milk Of Magnesia 30 Ml Oral.Susp) 30 ml PO DAILY PRN PRN Reason: Constipation Melatonin (Melatonin 3 Mg Tablet) 6 mg PO BEDTIME PRN PRN Reason: Insomnia Multivitamins/Vitamin C (Multivitamin Tablet) 1 tab PO DAILY [facility] Last Admin: 04/07/23 11:52 Dose: Not Given Documented By: MARIA L Non-Admin Reason: NPO Ondansetron HCl (Ondansetron Hcl 4 Mg/2 Ml Vial) 4 mg IVPUSH Q8H PRN PRN Reason: Nausea and Vomiting Pharmacy Consult (Consult Rx Perform Med Rec) 1 each MISCELLANE ONCE PRN PRN Reason: Consult order Vitamin D (Cholecalciferol (Vitamin D3) 25 Mcg Tablet) 50 mcg PO DAILY [facility] Last Admin: 04/07/23 11:52 Dose: Not Given Documented By: MARIA L Non-Admin Reason: NPO Labs 04/07/23 05:50 04/07/23 05:50 Labs: Laboratory Results - last 24 hr 04/07/23 04/07/23 04/07/23 05:50 05:50 05:50 MCV 78.8 L MCH 27.0 MCHC 34.3 RDW 13.5 Plt Count 109 L MPV 12.8 H Absolute Nucleated RBC 0.000 Nucleated RBC % (auto) 0.0 Anion Gap 14 Estim Creat Clear Calc 154.0 Estimated GFR > 60 Random Glucose 93 Calcium 8.7 Magnesium 2.0 Cancelled Microbiology Microbiology Results: Microbiology 04/05/23 09:37 Blood Culture - Preliminary Blood - Venous No growth after 48 hours. 04/05/23 08:29 Blood Culture - Preliminary Blood - Venous No growth after 48 hours. 04/05/23 Unknown Urine Culture - Final Urine Catheterized - Burciaga Catheter Assessment and Plan (1) Septic shock: Status: Acute (2) Sepsis: Status: Acute (3) Acute UTI: Status: Acute Plan 37 year old male with MS and chronic indwelling burciaga cath here with fever chills, WBC 23K, tachycardia, lactic acidosis, hypotension--clinical presentation c/w septic shock, likely from gram negative rods of urinary origin. He was briefly treated with vasopressor in ED when BP did not respond to IVF (4 liters) total Septic shock d/t UTI (WBC 23, HR 130, SBP in 80s). blood pressure improved tachycardia resolved WBC is trending down -Treated with Ceftriaxone in EDx 1, on Zosyn started 04/05. urine and blood cultures showed no growth, id consult obtained Dr. Fountain agrees with current treatment plan and recommend to transition to by mouth Augmentin for 14 days starting tomorrow. - DC IV fluid, wean IV Solu Cortef and subsequently will place back on prednisone CAMRYN d/t renal hypoperfusion from sepsis, resolved. Cr 1.87 on 04/05, 0.62 on 04/06 MS -- seen by Neurology they do not feel patient has flare of MS they recommend outpatient follow-up with primary neurologist dysphagia seen by speech therapy they recommended chopped solids and thin liquids, Acute lactic acidosis--d/t sepsis, received adequate amount of fluid, improved. DVT prophylaxis: Lovenox Need for inaptient: on IV antibiotic for septic shock and further evaluation of dysphagia. Time Spent With Patient Time: Total time managing care of this patient today ____ minutes. Quality Stroke Does the patient have a stroke diagnosis?: No VTE Prior VTE?: No VTE Risk Level:: Medical - moderate - high VTE Device Contraindication: Treatment Not Indicated VTE Drug Contraindication: N/A - Med Ordered
[2023-04-07] MEDS: Enoxaparin Sodium 40 MG/0.4 ML SYRINGE SUBCUT (15:35)
--- NOTE | 2023-04-07 15:56 | MHC.SL.SWA ---
Speech Pathologist Impression:Risk of aspiration, oropharyngeal dysphagia Risk of Aspiration Due to: Neurological Condition Dysphasia Diet Status: NDD3/THIN Liquid Consistency and Strategies for Safe Swallow: Liquid Intake Recommendation: Thin Liquid Intake Strategies: Small Sips No Straws Solid Food Consistency: Dietary Recommendations: Chopped/Advanced (NDD3) Additional Modifications to Solid Foods: Recommend UPGRADE from NPO, START on CHOPPED/ADVANCED (NDD3) diet and THIN liquids, pills WHOLE one at a time in PUREE or LIQUID per pt's tolerance. FISHING TACKLE REPAIRER to f/u 1-2 times to monitor tolerance, provide continued education and support. Following strategies are recommended: -Take small bites of food; moisten with sauces and gravies as needed to promote oral and pharyngeal clearance -Avoid tough solids and mixed consistencies -Double swallow with bites of solids and with sips of liquid to clear residuals -Take small, individual sips -Avoid ?chugging? liquids -Avoid the use of straws -Upright 90 degree position while eating and drinking and for at least 30 minutes afterwards Recommendations communicated via [employer] Message, written on whiteboard in pt's room. Oral Medication Intake: Whole with Puree or Liquid per pt's tolerance Please contact the pharmacy regarding appropriate crushable or liquid drug formulations that are available whenever modified delivery is recommended. Compensatory Strategies and Precautions to be Taken for Safe Swallow: Sitting Upright (90 deg) Double Swallow No Straw Small Bites and Sips Rate of Ingestion Change Avoid Specific Foods Supervision While Eating and Drinking for Safe Swallow: Total Supervision (1:1) Foods to Avoid: Avoid tough solids and mixed consistencies Swallowing Recommended Treatments: Compens. Strategy Educat. Recommendation for Speech: Inpatient Speech Therapy Comment: 1-2 f/u Elevators Inspector Clinican/Clinical Fellow: No Supervisory Statement: I have reviewed and agree with the student/clinical fellow's documentation: N/A Speech Language Pathologist: Scarlet Wesley M.A., CCC-FISHING TACKLE REPAIRER
--- NOTE | 2023-04-07 16:05 | P.CNID_ITS ---
History of Present Illness Data of Consult Service Date: 04/07/23 Requesting physician: Romelia Casas Primary Care Provider: MD TIKA Brock Reason for consult: probable urinary infection He presents to hospital with waxing and waning numbness in legs. He has no fever or chills now but felt febrile earlier. He has CXR and urine and blood cultures unremarkable. He has MS and uses a urinary catheter. He was started on Zosyn and steroids and seen by Urology. He had urinary catheter changed 04/02 and had purplish areas skin around penis after. 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 Family History Family History Other No family history of coronary artery disease Family history: reviewed and not pertinent Surgical History Surgical History H/O hernia repair Social History Social History Household Members: Family Housing: Apartment 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 have visiting nurse or other home services: Yes (Visiting nurse and occupational therapist) Alcohol intake: unknown Patient Tobacco Use Status: Current everyday Tobacco user Tobacco use type: Cigarette Cigarettes Per Day: 0.25 Use of substances other than those prescribed or required for medical reasons: No Substance Use Type: Marijuana Currently Displaying Signs/Symptoms of Drug Intoxication Withdrawal: No Have you been hit, kicked, punched, or otherwise hurt by someone within the past year? If so, by whom?: No Do you feel safe in your current relationship?: No Current Relationship Is there a partner from a previous relationship who is making you feel unsafe now?: No Are you made to feel afraid or neglected: No Spiritual Healthcare Practices: n/a Pentecostalism Healthcare Practices: n/a Cultural Healthcare Practices: n/a Advance Directives: Yes Advance Directives on File: Yes Advance Directives Date on File: 08/21/22 Do you have thoughts of harming others: None Do you have a plan to hurt others: No Plan Recently lost weight without trying: No How much weight loss: Not applicable Eating poorly because of decreased appetite: No Nutrition screen score: 0 Nutrition Risks: Difficulty swallowing service: No Current occupational status: disabled Meds Allergies Allergy/AdvReac Type Severity Reaction Status Date / Time No Known Allergies Allergy Verified 05/02/22 14:35 [No Known Allergies*] Active Medications: Current Medications Acetaminophen (Acetaminophen 325 Mg Tablet) 650 mg PO Q6H PRN PRN Reason: Pain, Mild (Pain Scale 1-3) Baclofen (Baclofen 10 Mg Tablet) 10 mg PO TID [facility] Last Admin: 04/07/23 11:52 Dose: 10 mg Enoxaparin Sodium (Enoxaparin Sodium 40 Mg/0.4 Ml Syringe) 40 mg SUBCUT Q24H [facility] Last Admin: 04/07/23 15:35 Dose: 40 mg Hydrocortisone Sodium Succinate (Hydrocortisone Sod Succ/Pf 100 Mg Vial) 50 mg IVPUSH Q8H [facility] Piperacillin Sod/Tazobactam (Sod 3.375 gm/ Sodium Chloride) 50 mls @ 100 mls/hr IV Q6H [facility] Last Infusion: 04/07/23 13:05 Dose: Infused Potassium Chloride (Potassium Chloride/H20) 10 meq in 100 mls @ 100 mls/hr IV ONCE ONE Stop: 04/07/23 16:39 Last Admin: 04/07/23 16:01 Dose: 100 mls/hr Magnesium Hydroxide (Milk Of Magnesia 30 Ml Oral.Susp) 30 ml PO DAILY PRN PRN Reason: Constipation Melatonin (Melatonin 3 Mg Tablet) 6 mg PO BEDTIME PRN PRN Reason: Insomnia Multivitamins/Vitamin C (Multivitamin Tablet) 1 tab PO DAILY [facility] Last Admin: 04/07/23 11:52 Dose: Not Given Ondansetron HCl (Ondansetron Hcl 4 Mg/2 Ml Vial) 4 mg IVPUSH Q8H PRN PRN Reason: Nausea and Vomiting Pharmacy Consult (Consult Rx Perform Med Rec) 1 each MISCELLANE ONCE PRN PRN Reason: Consult order Vitamin D (Cholecalciferol (Vitamin D3) 25 Mcg Tablet) 50 mcg PO DAILY [facility] Last Admin: 04/07/23 11:52 Dose: Not Given Home Medications Medication Instructions Recorded Confirmed Last Taken Type cholecalciferol (vitamin D3) 50 1 cap PO DAILY 09/18/21 04/05/2322 History mcg (2,000 unit) capsule multivitamin 1 tab PO DAILY 08/20/22 04/05/23 Unknown History omega-3 300 mg-dha 120 mg-epa 180 1 cap PO DAILY 08/20/22 04/05/23 Unknown History mg-fish oil 1,000 mg capsule acetaminophen 500 mg tablet 500 mg PO Q6H PRN mild pain 04/05/23 04/05/23 Unknown History baclofen 10 mg tablet 10 mg PO TID 04/05/23 04/05/23 Unknown History Physical Exam Vital Signs: Vital Signs: Last Vital Signs Temp 98.8 F 04/07/23 15:15 Pulse 79 04/07/23 15:15 Resp 18 04/07/23 15:15 BP 122/80 04/07/23 15:15 Pulse Ox 99 04/07/23 15:15 O2 Del Method Room Air 04/07/23 15:15 BMI result Body Mass Index 27.6 Const: General: cooperative HEENT: Head: Yes normal to inspection Face and sinus: Yes normal facial exam Mouth: Normal oral and palatal mucosa present Teeth and gingiva: dentition normal Eyes: General: appearance normal, both eyes and all related structures Pupils: Equal, round and reactive pupils present Resp: Effort & Inspection: normal respiratory effort Cardio: Rate: regular rate Rhythm: regular rhythm GI: Palpation (GI): Soft to palpation and nontender : General: Yes no CVA tenderness Back/Spine/Pelvis: Back: no CVA tenderness Skin: General skin exam: no rashes or lesions noted Neuro: Other: weakness and tingling lower extremities Cranial nerves: Yes Equal, round and reactive pupils present Extrem: General: Yes normal to inspection Psych: Appearance: grossly normal Results Labs 04/07/23 05:50 04/07/23 05:50 Labs: Short CBC 04/07/23 Range/Units 05:50 WBC 19.6 H (4.8-10.8) X10*3/uL Hgb 10.8 L (14.0-18.0) g/dl Hct 31.5 L (42.0-52.0) % Plt Count 109 L (160-400) X10*3/uL BMP 04/07/23 05:50 Sodium 145 Potassium 3.0 L Chloride 112 H Carbon Dioxide 22 BUN 13 Creatinine 0.65 Calcium 8.7 Microbiology Microbiology Results: Microbiology 04/05/23 09:37 Blood - Venous Blood Culture - Preliminary No growth after 48 hours. 04/05/23 08:29 Blood - Venous Blood Culture - Preliminary No growth after 48 hours. 04/05/23 Unknown Urine Catheterized - Villatoro Catheter Urine Culture - Final Assessment and Plan (1) Encephalopathy: Status: Acute He has probable urinary infection He has negative cultures. Still likely urinary source,probably bladder stasis. (2) Septic shock: Status: Acute Plan Would continue Zosyn. Would switch to po Augmentin outpatient for two weeks. Time Spent With Patient Time: Total time managing care of this patient today ____ minutes.
[2023-04-07] MEDS: Potassium Chloride ER 20 MEQ TAB.ER.PRT 40 MEQ PO (16:08)
[2023-04-07] MEDS: Hydrocortisone Sod Succ/PF 100 MG VIAL 50 MG IVPUSH (20:05)
[2023-04-08] MEDS: Piperacillin Sodium/Tazobactam 3.375 GM in 0.9 % Sodium Chloride 50 ML IV ×3 (00:23→12:56)
[2023-04-08 04:00] VITALS: BP 112/73; PULSE 72; RESP 20; TEMP 37.2; O2SAT 96
[2023-04-08] MEDS: Hydrocortisone Sod Succ/PF 100 MG VIAL 50 MG IVPUSH ×3 (05:30→22:19)
[2023-04-08 06:45] LABS: Anion Gap 13 (12-20); Blood Urea Nitrogen 13 mg/dL (9-16); Calcium 8.6 mg/dL (8.4-10.2); Carbon Dioxide 22 mmol/L (22-29); Chloride 116 mmol/L (96-108); Creatinine Clr Calc Pharmacy 178.8; Estimated Glomerular Filt Rate > 60; Glucose Random 103 mg/dL (60-115); Potassium 3.1 mmol/L (3.3-5.1); Sodium 148 mmol/L (135-145)
[2023-04-08] MEDS: Baclofen 10 MG TABLET PO ×3 (07:37→22:19)
[2023-04-08] MEDS: Cholecalciferol (Vitamin D3) 25 MCG TABLET 50 MCG PO (07:37)
[2023-04-08] MEDS: Multivitamin TABLET 1 TAB PO (07:38)
[2023-04-08] MEDS: Potassium Chloride ER 20 MEQ TAB.ER.PRT 40 MEQ PO (07:38)
[2023-04-08 07:41] VITALS: BP 121/79; PULSE 66; RESP 20; TEMP 37.1; O2SAT 96
[2023-04-08 13:38] VITALS: BP 120/79; PULSE 94; RESP 20; TEMP 36.6; O2SAT 99
--- NOTE | 2023-04-08 14:16 | P.PNIM_ITS ---
Subjective Subjective Date of Service: 04/08/23 Interval History: complaining of lower extremity intermittent numbness, was unable to stand up from the commode with to assist, admits to getting weak with any infection or with hospitalization, at home was ambulating with walker, no fevers no chills denies urinary symptoms, no nausea no vomiting no abdominal pain tolerating diet, no shortness of breath. Review of Systems All other systems reviewed and negative. Physical Exam Vital Signs: Vital Signs: Last Vital Signs Temp 97.8 F 04/08/23 13:38 Pulse 94 04/08/23 13:38 Resp 20 04/08/23 13:38 BP 120/79 04/08/23 13:38 Pulse Ox 99 04/08/23 13:38 O2 Del Method Room Air 04/08/23 13:38 BMI result Body Mass Index 27.6 Const: Other: General? awake alert, resting comfortably in no acute distress.? Neck no JVD. CVS? regular rate rhythm, Respiratory lungs clear to auscultation, no respiratory distress, no wheeze, no rhonchi. Gastrointestinal abdomen soft, nontender, bowel sounds audible, Extremities no? edema. Neuro speech clear, moderate Paraparesis. Skin no rash psych appropriate affect Objective Data Active Medications Acetaminophen (Acetaminophen 325 Mg Tablet) 650 mg PO Q6H PRN PRN Reason: Pain, Mild (Pain Scale 1-3) Baclofen (Baclofen 10 Mg Tablet) 10 mg PO TID [facility] Last Admin: 04/08/23 07:37 Dose: 10 mg Documented By: ANNA Enoxaparin Sodium (Enoxaparin Sodium 40 Mg/0.4 Ml Syringe) 40 mg SUBCUT Q24H [facility] Last Admin: 04/07/23 15:35 Dose: 40 mg Documented By: JEANNINE Hydrocortisone Sodium Succinate (Hydrocortisone Sod Succ/Pf 100 Mg Vial) 50 mg IVPUSH Q8H [facility] Last Admin: 04/08/23 12:53 Dose: 50 mg Documented By: ANNA Piperacillin Sod/Tazobactam (Sod 3.375 gm/ Sodium Chloride) 50 mls @ 100 mls/hr IV Q6H [facility] Last Admin: 04/08/23 12:56 Dose: 100 mls/hr Documented By: ANNA Magnesium Hydroxide (Milk Of Magnesia 30 Ml Oral.Susp) 30 ml PO DAILY PRN PRN Reason: Constipation Melatonin (Melatonin 3 Mg Tablet) 6 mg PO BEDTIME PRN PRN Reason: Insomnia Multivitamins/Vitamin C (Multivitamin Tablet) 1 tab PO DAILY [facility] Last Admin: 04/08/23 07:38 Dose: 1 tab Documented By: ANNA Ondansetron HCl (Ondansetron Hcl 4 Mg/2 Ml Vial) 4 mg IVPUSH Q8H PRN PRN Reason: Nausea and Vomiting Pharmacy Consult (Consult Rx Perform Med Rec) 1 each MISCELLANE ONCE PRN PRN Reason: Consult order Vitamin D (Cholecalciferol (Vitamin D3) 25 Mcg Tablet) 50 mcg PO DAILY [facility] Last Admin: 04/08/23 07:37 Dose: 50 mcg Documented By: ANNA Labs 04/07/23 05:50 04/08/23 06:17 Labs: Laboratory Results - last 24 hr 04/08/23 06:17 Anion Gap 13 Estim Creat Clear Calc 178.8 Estimated GFR > 60 Random Glucose 103 Calcium 8.6 Microbiology Microbiology Results: Microbiology 04/05/23 09:37 Blood Culture - Preliminary Blood - Venous No growth after 48 hours. 04/05/23 08:29 Blood Culture - Preliminary Blood - Venous No growth after 48 hours. Assessment and Plan (1) Septic shock: Status: Acute (2) Sepsis: Status: Acute (3) Acute UTI: Status: Acute Plan 37 year old male with MS and chronic indwelling burciaga cath here with fever chills, WBC 23K, tachycardia, lactic acidosis, hypotension--clinical presentation c/w septic shock, likely from gram negative rods of urinary origin. He was briefly treated with vasopressor in ED when BP did not respond to IVF (4 liters) total Septic shock d/t UTI (WBC 23, HR 130, SBP in 80s). blood pressure improved tachycardia resolved WBC is trending down Treated with Ceftriaxone in EDx 1, on Zosyn started 04/05. urine and blood cultures showed no growth, id consult obtained Dr. Fountain agrees with current treatment plan for probable urinary source and bladder stasis and recommend to transition to by mouth Augmentin for 14 days will wean IV Solu Cortef and place back on prednisone CAMRNY d/t renal hypoperfusion from sepsis, resolved. hypokalemia will repeat complete and follow labs hyper natremia/ hyperchloremia will treat with free water and follow labs MS -- seen by Neurology they do not feel patient has flare of MS they recommend outpatient follow-up with primary neurologist and treat infection. patient with significant lower extremity weakness unable to stand likely due to electrolyte abnormality and infection ,will obtain PT eval. as per patient his weakness gets exacerbated during hospital stay. dysphagia seen by speech therapy they recommended chopped solids and thin liquids. Acute lactic acidosis--d/t sepsis, received adequate amount of fluid, improved. DVT prophylaxis: Lovenox Need for inaptient: multiple electrolyte abnormalities requiring replacement, dysphagia and on IV Solu-Cortef for adrenal insufficiency and weakness need PT evaluation. Time Spent With Patient Time: Total time managing care of this patient today ____ minutes. Quality Stroke Does the patient have a stroke diagnosis?: No VTE Prior VTE?: No VTE Risk Level:: Medical - moderate - high VTE Device Contraindication: Treatment Not Indicated VTE Drug Contraindication: N/A - Med Ordered
[2023-04-08] MEDS: Amoxicillin/Potassium Clav 875 MG TABLET PO (14:32)
[2023-04-08] MEDS: KCl 20 mEq in 5 % Dextrose 20 MEQ/1,000 ML IV.SOLN 80 MEQ IVCONT (15:10)
[2023-04-08] MEDS: 0.9 % Sodium Chloride Flush 3 ML SYRINGE IVFLUSH (15:10)
[2023-04-08] MEDS: Enoxaparin Sodium 40 MG/0.4 ML SYRINGE SUBCUT (15:10)
[2023-04-08 16:00] VITALS: BP 125/84; PULSE 67; RESP 14; TEMP 36.2; O2SAT 99
[2023-04-08 19:38] VITALS: BP 116/69; PULSE 71; RESP 14; TEMP 36.9; O2SAT 99
[2023-04-08 23:26] VITALS: BP 135/85; PULSE 70; RESP 18; TEMP 36.8; O2SAT 98
[2023-04-09] MEDS: Hydrocortisone Sod Succ/PF 100 MG VIAL 50 MG IVPUSH (03:31)
[2023-04-09] MEDS: Amoxicillin/Potassium Clav 875 MG TABLET PO ×2 (03:32→15:15)
[2023-04-09 03:39] VITALS: BP 151/89; PULSE 69; RESP 20; TEMP 36.8; O2SAT 97
[2023-04-09 06:47] LABS: Hematocrit 34.5 % (42.0-52.0); Hemoglobin 11.7 g/dl (14.0-18.0); Mean Corpuscular HGB Conc 33.9 g/dl (31.0-36.0); Mean Corpuscular Hemoglobin 26.3 pg (27.0-33.0); Mean Corpuscular Volume 77.5 fL (80.0-98.0); Mean Platelet Volume 12.6 fL (9.4-12.4); Platelet Count 145 X10*3/uL (160-400); Red Blood Count 4.45 X10*6/uL (4.60-5.80); Red Cell Distribution Width 13.2 % (11.0-16.0); White Blood Count 8.3 X10*3/uL (4.8-10.8)
[2023-04-09 07:13] LABS: Anion Gap 11 (12-20); Blood Urea Nitrogen 6 mg/dL (9-16); Calcium 8.8 mg/dL (8.4-10.2); Carbon Dioxide 28 mmol/L (22-29); Chloride 106 mmol/L (96-108); Creatinine Clr Calc Pharmacy 196.3; Estimated Glomerular Filt Rate > 60; Glucose Random 108 mg/dL (60-115); Potassium 2.6 mmol/L (3.3-5.1); Sodium 142 mmol/L (135-145)
[2023-04-09 07:30] VITALS: BP 129/80; PULSE 58; RESP 20; TEMP 36.5; O2SAT 98
[2023-04-09] MEDS: Multivitamin TABLET 1 TAB PO (08:24)
[2023-04-09] MEDS: Baclofen 10 MG TABLET PO ×3 (08:24→19:56)
[2023-04-09] MEDS: Cholecalciferol (Vitamin D3) 25 MCG TABLET 50 MCG PO (08:24)
[2023-04-09] MEDS: Potassium Chloride ER 20 MEQ TAB.ER.PRT 60 MEQ PO (08:24)
[2023-04-09] MEDS: predniSONE 20 MG TABLET PO ×2 (08:24→17:01)
[2023-04-09] MEDS: Famotidine 20 MG TABLET PO ×2 (08:25→19:56)
--- NOTE | 2023-04-09 10:22 | MHC.CM.PN ---
Per ROUNDS discussion, PT is recommending Acute Rehab but Patient is refusing rehab and wants to go home.CM will follow.
[2023-04-09 11:16] VITALS: BP 122/72; PULSE 100; RESP 20; TEMP 36.4; O2SAT 97
--- NOTE | 2023-04-09 15:13 | P.CDIM_ITS ---
PROVIDER RESPONSE TEXT: To clarify, the appropriate diagnosis supported by the clinical indicators: Yes, UTI is related to / associated with / due to indwelling Villatoro catheter QUERY TEXT: PHYSICIAN'S DOCUMENTATION REQUEST Date of Query: 04/08/2023 01:31 PM EDT Patient Name: Justus Burr Admit Date: 04/05/2023 Dear Romelia Casas, A review of the medical record indicates additional documentation may be needed. Please review below and update the documentation accordingly. Documentation includes the conditions of chronic indwelling Villatoro catheter and UTI. Clinical Indicators: Per Infectious Disease Consultation 04/07/23: urinary catheter changed 04/02 continue Zosyn. Would switch to po Augmentin outpatient for two weeks Please clarify the relationship between these conditions: Yes, UTI is related to / associated with / due to indwelling Villatoro catheter No, UTI is not related to / associated with / due to indwelling Villatoro catheter Other (explain)Clinically unable to determine (explain)Thank you, Liudmila Le RN Use of terms such as suspected, likely, concern for, or probable (associated with a specific diagnosi s that is being evaluated, monitored, or treated as if it exists) are acceptable and can be coded in the inpatient se tting, when documented at the time of discharge. Please use your independent medical judgment in providing your response. THIS QUERY IS PART OF THE PERMANENT MEDICAL RECORD
--- NOTE | 2023-04-09 15:15 | HO.PM.IMPN ---
Subjective Subjective Date of Service: 04/09/23 Interval History: complaining of right leg spasms, admitted to have bilateral lower extremity numbness, denies pain no nausea no vomiting, no abdominal pain, did tolerating diet, no headache, no dizziness, no fevers, no chills. Review of Systems all other system reviewed and negative. Physical Exam Vital Signs: Vital Signs: Last Vital Signs Temp 97.6 F 04/09/23 11:16 Pulse 100 04/09/23 11:16 Resp 20 04/09/23 11:16 BP 122/72 04/09/23 11:16 Pulse Ox 97 04/09/23 11:16 O2 Del Method Room Air 04/09/23 11:16 BMI result Body Mass Index 27.6 Const: Other: General? awake alert, resting comfortably in no acute distress.? Neck no JVD. CVS? regular rate rhythm, Respiratory lungs clear to auscultation, no respiratory distress, no wheeze, no rhonchi. Gastrointestinal abdomen soft, nontender, bowel sounds audible, Extremities no? edema. Neuro? speech clear, moderate Paraparesis. Skin no rash psych appropriate affect Objective Data Active Medications Acetaminophen (Acetaminophen 325 Mg Tablet) 650 mg PO Q6H PRN PRN Reason: Pain, Mild (Pain Scale 1-3) Amoxicillin/Clavulanate Potassium (Amoxicillin/Potassium Clav 875 Mg Tablet) 875 mg PO Q12H [facility] Last Admin: 04/09/23 03:32 Dose: 875 mg Documented By: RASHEED-JOZEB Baclofen (Baclofen 10 Mg Tablet) 10 mg PO TID [facility] Last Admin: 04/09/23 08:24 Dose: 10 mg Documented By: ANNA Enoxaparin Sodium (Enoxaparin Sodium 40 Mg/0.4 Ml Syringe) 40 mg SUBCUT Q24H [facility] Last Admin: 04/08/23 15:10 Dose: 40 mg Documented By: ANNA Famotidine (Famotidine 20 Mg Tablet) 20 mg PO BID [facility] Last Admin: 04/09/23 08:25 Dose: 20 mg Documented By: ANNA Magnesium Hydroxide (Milk Of Magnesia 30 Ml Oral.Susp) 30 ml PO DAILY PRN PRN Reason: Constipation Melatonin (Melatonin 3 Mg Tablet) 6 mg PO BEDTIME PRN PRN Reason: Insomnia Multivitamins/Vitamin C (Multivitamin Tablet) 1 tab PO DAILY [facility] Last Admin: 04/09/23 08:24 Dose: 1 tab Documented By: ANNA Ondansetron HCl (Ondansetron Hcl 4 Mg/2 Ml Vial) 4 mg IVPUSH Q8H PRN PRN Reason: Nausea and Vomiting Pharmacy Consult (Consult Rx Perform Med Rec) 1 each MISCELLANE ONCE PRN PRN Reason: Consult order Prednisone (Prednisone 20 Mg Tablet) 20 mg PO BIDWM [facility] Last Admin: 04/09/23 08:24 Dose: 20 mg Documented By: ANAN Vitamin D (Cholecalciferol (Vitamin D3) 25 Mcg Tablet) 50 mcg PO DAILY [facility] Last Admin: 04/09/23 08:24 Dose: 50 mcg Documented By: ANNA Labs 04/09/23 06:25 04/09/23 06:25 Labs: Laboratory Results - last 24 hr 04/09/23 04/09/23 06:25 06:25 MCV 77.5 L MCH 26.3 L MCHC 33.9 RDW 13.2 Plt Count 145 L D MPV 12.6 H Absolute Nucleated RBC 0.000 Nucleated RBC % (auto) 0.0 Anion Gap 11 L Estim Creat Clear Calc 196.3 Estimated GFR > 60 Random Glucose 108 Calcium 8.8 Assessment and Plan (1) Septic shock: Status: Acute (2) Sepsis: Status: Acute (3) Acute UTI: Status: Acute Plan 37 year old male with MS and chronic indwelling burciaga cath here with fever chills, WBC 23K, tachycardia, lactic acidosis, hypotension--clinical presentation c/w septic shock, likely from gram negative rods of urinary origin. He was briefly treated with vasopressor in ED when BP did not respond to IVF (4 liters) total Septic shock d/t UTI (WBC 23, HR 130, SBP in 80s). / UTI due to indwelling Burciaga catheter blood pressure improved tachycardia resolved WBC normalize Treated with Ceftriaxone in EDx 1, than treated with Zosyn 04/05 thru 04/07, urine and blood cultures showed no growth, id consult obtained Dr. Fountain agrees with current treatment plan for probable urinary source and bladder stasis and recommend to transition to by mouth Augmentin for 14 days , started on Zosyn 04/08 s/p IV Solu Cortef for concern of adrenal insufficiency and place back on prednisone 20mg bid home dose CAMRYN d/t renal hypoperfusion from sepsis, resolved. hypokalemia will replete and follow labs, likely due to steroids hypernatremia/ hyperchloremia treated with fluids, repeat labs normalized MS -- seen by Neurology they do not feel patient has flare of MS they recommend outpatient follow-up with primary neurologist and treat infection. patient with significant lower extremity weakness unable to stand likely due to electrolyte abnormality and infection , PT recommend acute rehab, as per patient his weakness gets exacerbated during hospital stay. patient refusing rehab. dysphagia seen by speech therapy they recommended chopped solids and thin liquids. Acute lactic acidosis--d/t sepsis, received adequate amount of fluid, improved. DVT prophylaxis: Lovenox Need for inaptient: multiple electrolyte abnormalities requiring replacement, dysphagia and weakness need placement. Time Spent With Patient Time: Total time managing care of this patient today ____ minutes. Quality Stroke Does the patient have a stroke diagnosis?: No VTE Prior VTE?: No VTE Risk Level:: Medical - moderate - high VTE Device Contraindication: Treatment Not Indicated VTE Drug Contraindication: N/A - Med Ordered
[2023-04-09 15:26] VITALS: BP 140/86; PULSE 76; RESP 18; TEMP 36.7; O2SAT 97
[2023-04-09] MEDS: Enoxaparin Sodium 40 MG/0.4 ML SYRINGE SUBCUT (17:01)
[2023-04-09 19:03] VITALS: BP 127/82; PULSE 75; RESP 18; TEMP 36.9; O2SAT 97
[2023-04-09 23:44] VITALS: BP 129/78; PULSE 63; RESP 18; TEMP 36.7; O2SAT 97
[2023-04-10] VITALS (7 sets, daily range): BP systolic 107–123; BP diastolic 68–76; PULSE 70–88; RESP 18–20; TEMP 35.9–36.9; O2SAT 95–98
[2023-04-10] MEDS: Amoxicillin/Potassium Clav 875 MG TABLET PO ×2 (02:17→14:09)
[2023-04-10 07:01] LABS: Anion Gap 12 (12-20); Blood Urea Nitrogen 7 mg/dL (9-16); Calcium 9.4 mg/dL (8.4-10.2); Carbon Dioxide 30 mmol/L (22-29); Chloride 105 mmol/L (96-108); Creatinine Clr Calc Pharmacy 204.4; Estimated Glomerular Filt Rate > 60; Glucose Random 84 mg/dL (60-115); Potassium 2.9 mmol/L (3.3-5.1); Sodium 144 mmol/L (135-145)
[2023-04-10] MEDS: Cholecalciferol (Vitamin D3) 25 MCG TABLET 50 MCG PO (09:10)
[2023-04-10] MEDS: Baclofen 10 MG TABLET PO ×3 (09:10→21:14)
[2023-04-10] MEDS: predniSONE 20 MG TABLET PO ×2 (09:10→17:34)
[2023-04-10] MEDS: Multivitamin TABLET 1 TAB PO (09:10)
[2023-04-10] MEDS: Famotidine 20 MG TABLET PO ×2 (09:11→21:14)
--- NOTE | 2023-04-10 09:35 | P.PNIM_ITS ---
Subjective Subjective Date of Service: 04/10/23 Interval History: Over all feeling better, less weak Physical Exam Vital Signs: Vital Signs: Last Vital Signs Temp 98 F 04/10/23 07:49 Pulse 88 04/10/23 08:47 Resp 20 04/10/23 07:49 BP 121/76 04/10/23 08:47 Pulse Ox 96 04/10/23 08:47 O2 Del Method Room Air 04/10/23 07:49 BMI result Body Mass Index 27.6 Const: Other: General? awake alert, resting comfortably in no acute distress.? Neck no JVD. CVS? regular rate rhythm, Respiratory lungs clear to auscultation, no respiratory distress, no wheeze, no rhonchi. Gastrointestinal abdomen soft, nontender, bowel sounds audible, Extremities no? edema. Neuro? speech clear, moderate Paraparesis. Skin no rash psych appropriate affect Objective Data Active Medications Acetaminophen (Acetaminophen 325 Mg Tablet) 650 mg PO Q6H PRN PRN Reason: Pain, Mild (Pain Scale 1-3) Amoxicillin/Clavulanate Potassium (Amoxicillin/Potassium Clav 875 Mg Tablet) 875 mg PO Q12H [facility] Last Admin: 04/10/23 02:17 Dose: 875 mg Documented By: MADISYN Baclofen (Baclofen 10 Mg Tablet) 10 mg PO TID [facility] Last Admin: 04/10/23 09:10 Dose: 10 mg Documented By: SIDDHARTHA Enoxaparin Sodium (Enoxaparin Sodium 40 Mg/0.4 Ml Syringe) 40 mg SUBCUT Q24H [facility] Last Admin: 04/09/23 17:01 Dose: 40 mg Documented By: ANNA Famotidine (Famotidine 20 Mg Tablet) 20 mg PO BID [facility] Last Admin: 04/10/23 09:11 Dose: 20 mg Documented By: SIDDHARTHA Magnesium Hydroxide (Milk Of Magnesia 30 Ml Oral.Susp) 30 ml PO DAILY PRN PRN Reason: Constipation Melatonin (Melatonin 3 Mg Tablet) 6 mg PO BEDTIME PRN PRN Reason: Insomnia Multivitamins/Vitamin C (Multivitamin Tablet) 1 tab PO DAILY [facility] Last Admin: 04/10/23 09:10 Dose: 1 tab Documented By: SIDDHARTHA Ondansetron HCl (Ondansetron Hcl 4 Mg/2 Ml Vial) 4 mg IVPUSH Q8H PRN PRN Reason: Nausea and Vomiting Pharmacy Consult (Consult Rx Perform Med Rec) 1 each MISCELLANE ONCE PRN PRN Reason: Consult order Prednisone (Prednisone 20 Mg Tablet) 20 mg PO BIDWM [facility] Last Admin: 04/10/23 09:10 Dose: 20 mg Documented By: SIDDHARTHA Vitamin D (Cholecalciferol (Vitamin D3) 25 Mcg Tablet) 50 mcg PO DAILY [facility] Last Admin: 04/10/23 09:10 Dose: 50 mcg Documented By: SIDDHARTHA Labs 04/09/23 06:25 04/10/23 06:24 Labs: Laboratory Results - last 24 hr 04/10/23 06:24 Anion Gap 12 Estim Creat Clear Calc 204.4 Estimated GFR > 60 Random Glucose 84 Calcium 9.4 D Assessment and Plan (1) Septic shock: Status: Acute (2) Sepsis: Status: Acute (3) Acute UTI: Status: Acute Plan 37 year old male with MS and chronic indwelling burciaga cath here with fever chills, WBC 23K, tachycardia, lactic acidosis, hypotension--clinical presentatio n c/w septic shock, likely from gram negative rods of urinary origin. He was briefly treated with vasopressor in ED when BP did not respond to IVF (4 liters) total Septic shock d/t UTI from indwelling Burciaga catheter (on admit WBC 23, HR 130, SBP in 80s). Sepsis has resolved WBC and HR returned to normal Treated with Ceftriaxone in EDx 1, then treated with Zosyn 04/05 thru 04/07, urine and blood cultures showed no growth, id Dr. Fountain agrees with current treatment plan for probable urinary source and bladder stasis and recommend to transition to by mouth Augmentin for 14 days , s/p IV Solu Cortef for concern of adrenal insufficiency on admit and now back on prednisone 20mg bid home dose CAMRYN d/t renal hypoperfusion from sepsis, resolved. hypOkalemia will replete and follow labs, likely due to steroids, mag normal hypernatremia/ hyperchloremia treated with fluids, repeat labs normalized MS -- seen by Neurology they do not feel patient has flare of MS they recommend outpatient follow-up with primary neurologist and treat infection. patient with significant lower extremity weakness unable to stand likely due to electrolyte abnormality and infection , PT recommend acute rehab, as per patient his weakness gets exacerbated during hospital stay. patient refusing rehab. dysphagia seen by speech therapy they recommended chopped solids and thin liquids. Acute lactic acidosis--d/t sepsis, received adequate amount of fluid, improved. DVT prophylaxis: Lovenox Need for inaptient: Home by tomorrow, after correction of potassium Time Spent With Patient Time: Total time managing care of this patient today ____ minutes. Quality Stroke Does the patient have a stroke diagnosis?: No VTE Prior VTE?: No VTE Risk Level:: Medical - moderate - high VTE Device Contraindication: Treatment Not Indicated VTE Drug Contraindication: N/A - Med Ordered
[2023-04-10] MEDS: Potassium Chloride Packet 20 MEQ PACKET 40 MEQ PO ×3 (09:51→21:13)
[2023-04-10 10:04] LABS: Magnesium 1.8 mg/dL (1.6-2.6)
[2023-04-10] MEDS: Melatonin 3 MG TABLET 6 MG PO (17:34)
[2023-04-10] MEDS: Enoxaparin Sodium 40 MG/0.4 ML SYRINGE SUBCUT (17:34)
[2023-04-11 03:21] VITALS: BP 115/70; PULSE 56; RESP 20; TEMP 36.6; O2SAT 94
[2023-04-11] MEDS: Amoxicillin/Potassium Clav 875 MG TABLET PO (03:25)
[2023-04-11 07:31] VITALS: BP 112/77; PULSE 79; RESP 20; TEMP 36.4; O2SAT 97
--- NOTE | 2023-04-11 10:01 | P.DS_ITS ---
DS: Providers Provider Date of Service: 04/11/23 Date of admission: 04/05/23 15:52 Primary care physician: Ebenezer Leslie MD Consults: 04/06/23 13:54 Consult to Neurology Routine Consulting Provider: [facility] Reason for consultation: MS ? exacerbation Has provider been notified: No 04/07/23 08:27 Consult to Infectious Diseases Routine Consulting Provider: Abimbola Fountain Reason for consultation: fever ua pos /neg cultures Has provider been notified: No DS: Diagnosis Discharge Diagnosis (1) Septic shock: Status: Acute (2) Sepsis: Status: Acute (3) Acute UTI: Status: Acute DS: Summary Hospital Course Hospital Course: Admission HPI Chief Complaint: weakness, fever and not feeling well 37-year-old male with a PMH significant for?MS and remote history of cocaine use, chronic urinary retention with indwelling burciaga cather last changed on 04/02. He presents with fever, generalized weakness and malaise for at least one day, other symptoms include headache, ? UA is positive for UTI, CXR no PNA, lactic of 3, WBC 23K, HR in 130s and 140. He is clinically in septic shock with low BP for which he has received nearly 4 liters of fluid with persistent hypotension and so was started on Vasopressors in the ED? and give? IV solumedrol for posibility of adrenal insuficiency, BP has come up now, Hospital course: This patient with MS and on chronic steroid presented with AMS, fever, elevated WBC fever and Hypotension, thachycardia +UA. Clinical present ation was consistent with septic shock due to UTI. He did not repond to multiple liters of of IVF so was started on vasoprssors and IV steroid for presumed adrenal insuficiency with good effect, he was initiated on Zosy after 1 dose of ceftriaxone in ED, urine culture and blood culture were ultimately negative however did not rule out the fact that he was septic. With the mentioned managemtnt. WBC came down to normal, fever resolved, tachycardia resolved. He was seen by ID with recommendation to transition to Augmentin for total of 14 days of antibitiocs. IV solu-cortef was given for possible addrenal insuficiency contributing to hypotension since he is on chronic steroid, and he was ultimately waned off and if back on Prednisone 20 bid. CAMRYN d/t renal hypoperfusion from sepsis, resolved by the next day with IVF hypOkalemia., repleted and resolved. hypernatremia/ hyperchloremia? treated with fluids, repeat labs normalized MS -- seen by Neurology they do not feel patient has flare of MS they recommend outpatient follow-up with primary neurologist and treat infection. patient with significant lower extremity weakness unable to stand? likely due to electrolyte abnormality and infection , PT recommend acute rehab, as per patient his weakness gets exacerbated during hospital stay. patient is refusing rehab. dysphagia seen by speech therapy they recommended chopped solids and thin liquids. Acute lactic acidosis--d/t sepsis, received adequate amount of fluid, resolved. He has declined rehab and therefore will go home with [facility]NS Time Spent with Patient Time attestation: Total time managing care of this patient today ____ minutes. Discharge coordination time: Greater than 30 minutes Quality: Safe Use of Opioids Does Pt have an Active Cancer Diagnosis on the Problem List?: No Quality: Stroke Does the patient have a stroke diagnosis?: No Physical Exam Vital Signs: Vital Signs: Last Vital Signs Temp 97.6 F 04/11/23 07:31 Pulse 79 04/11/23 07:31 Resp 20 04/11/23 07:31 BP 112/77 04/11/23 07:31 Pulse Ox 97 04/11/23 07:31 O2 Del Method Room Air 04/11/23 07:31 BMI result Body Mass Index 27.6 Const: Other: General: AO X 3, no acute distress Resp: CTA bilateral CVS: S1,S2,RRR GI: +BS, NT, no distention Skin: No rash Neuro: motor grossly intact Psych: appropriate affect DS: Data Data Completed and Pending Labs on day of discharge: Laboratory Results - last 24 hr 04/10/23 06:24 Magnesium 1.8 Discharge Plan Discharge Anticipated Discharge Date/Time: 04/11/23 09:53 Patient Disposition: Home Health Service Discharge Diagnosis: Sepsis, UTI Referrals: Name,MD Ebenezer [Primary Care Provider] - 1 Week Discharge Medications: New amoxicillin-pot clavulanate 875-125 mg Tablet 875 mg PO Q12H Qty: 16 0RF Continued cholecalciferol (vitamin D3) 50 mcg (2,000 unit) capsule 1 cap PO DAILY multivitamin Tablet 1 tab PO DAILY omega 4-wfl-hyr-fish oil 300 mg (120 mg- 180mg)-1,000 mg capsule 1 cap PO DAILY prednisone 20 mg tablet 20 mg PO BID Qty: 60 0RF acetaminophen 500 mg tablet 500 mg PO Q6H PRN (Reason: mild pain) baclofen 10 mg tablet 10 mg PO TID Discharge Orders: Discharge Order (Routine); Ordered 04/11/23 Ordered By: Pranav Grimm Diet: Advance to usual diet Activity on Discharge: As tolerated Stand Alone Forms: Patient Portal Discharge page Care Plan Goals: full recovery from sepsis and uti Health Concerns: Uti, sepsis, MS Plan of Treatment: Take Augmentin as recommended and follow up with your doctor in a week Assessment: as above
--- NOTE | 2023-04-11 10:24 | P.F2F_ITS ---
Service Date Service Date: 04/11/23 Encounter Date of encounter: 04/11/23 Reasons for Services Signs and symptoms assessed: sespsis, uti, h/o MS Reason for halfway: medication treatment and teach disease management Reason for physical therapy: home safety and mobility and therapeutic exercises Homebound: Leaving the home is medically contraindicated at this time without the asist of a device and/or another person due th the listed conditions above and below. Reason homebound: unsteady gait / fall risk and weakness related to hospital stay Homebound supporting statement: homebound due to MS causing weakness and worse with sepsis that required hospitalization for IV antibitics Certification: Based on the above findings, I certify that this patient is confined to the home and needs intermittent halfway care, physical therapy and/or speech therapy, or continues to need occupational therapy. The patient is under my care, and I have initiated the establishment of the plan of care. The patient will be followed by a physician who will periodically review the plan of care. Time Spent With Patient Time: Total time managing care of this patient today ____ minutes.
[2023-04-11] MEDS: Cholecalciferol (Vitamin D3) 25 MCG TABLET 50 MCG PO (10:28)
[2023-04-11] MEDS: Baclofen 10 MG TABLET PO (10:28)
[2023-04-11] MEDS: predniSONE 20 MG TABLET PO (10:28)
[2023-04-11] MEDS: Multivitamin TABLET 1 TAB PO (10:28)
[2023-04-11] MEDS: Famotidine 20 MG TABLET PO (10:28)
--- NOTE | 2023-04-11 10:58 | MHC.CM.PN ---
Patient has been medically cleared for dc to home today at 1:30 PM via [facility], with new [facility]. A referral was made to [facility], who has been made aware of today's dc. CM met with Patient at bedside and addressed IMM with him verbally (patient physically unable to sign r/t MS). Original IMM was given to Patient and a copy has been placed on the chart.
[2023-04-11 11:03] VITALS: BP 112/77; PULSE 79; O2SAT 97
[2023-04-11 11:31] VITALS: BP 106/72; PULSE 89; RESP 20; TEMP 36.3; O2SAT 99
== END 2023-04-11 13:53 | disposition home health service (06) | DRG 698 ==
LOC: HO.ED 13:40 → HO.EDOVER 16:00 → HO.IMC 16:38
PROVIDERS: Hospitalist; Student in an Organized Health Care Education/Training Program; Admitting Provider Internal Medicine; Emergency Provider Emergency Medicine; PCP Internal Medicine Geriatric Medicine; Visit Provider Internal Medicine
DX: T83.511A Infection and inflammatory reaction due to indwelling urethral catheter, initial encounter (principal); A41.9 Sepsis, unspecified organism; R65.21 Severe sepsis with septic shock; E87.21 Acute metabolic acidosis; N17.9 Acute kidney failure, unspecified; E87.0 Hyperosmolality and hypernatremia; N39.0 Urinary tract infection, site not specified; R13.10 Dysphagia, unspecified; R33.8 Other retention of urine; G35 Multiple sclerosis; E87.6 Hypokalemia; F17.210 Nicotine dependence, cigarettes, uncomplicated; Z71.6 Tobacco abuse counseling; Z20.822 Contact with and (suspected) exposure to COVID-19; Z79.52 Long term (current) use of systemic steroids; Z79.899 Other long term (current) drug therapy
CPT/HCPCS: 0241U; 36415; 71045; 80048; 80076; 81001; 83605; 83690; 83735; 83880; 84484; 85025; 85027; 87040; 87086; 87651; 92610; 93005; 97162; 97530; 99285; C1758; J0696; J1650; J2543; J2930

== ENCOUNTER 2023-04-16 11:42 | Emergency (ER) | payer OTHER, SELFPAY ==
[2023-04-16] VITALS (7 sets, daily range): BP systolic 104–138; BP diastolic 70–98; PULSE 58–79; RESP 16–18; TEMP 36.2–36.7; O2SAT 97–100; BMI 26.5
--- NOTE | 2023-04-16 12:05 | MHC.EDTECH ---
Patient came in with [facility] and bag emptied with 900ml of urine. Sample collected. Patient changed into hospital gown and linen removed from underneath him, with underpads placed underneath.
--- NOTE | 2023-04-16 12:23 | PC.NURSE ---
Pt is alert/oriented. Reports weakness at home with inability to manage with current home situation. States weakness to all extremities. Being treated for UTI at this time but denies any pain or discomfort. Skin pwd. Speaking full sentences. Awaits ED provider.
--- NOTE | 2023-04-16 14:35 | ED.GENADULT ---
HPI - General Adult General Chief complaint: General Medical Stated complaint: weakness Time Seen by Provider: 04/16/23 13:44 Source: patient Mode of arrival: EMS Limitations: no limitations History of Present Illness HPI narrative: 37 yo male presents with generalized weakness, was recently discharged from hospital with UTI. He is homeward bound and unsteady gait risk to fall. Has a history of MS causing generalized weakness. Patient reports his symptoms as severe. No clear relieving or exacerbating features. No recent fevers or chills. Eating and drinking well. no focal weakness. Would like to consider SNF and rehab. He denies any pain. Related Data Home Medications Medication Instructions Recorded Confirmed cholecalciferol (vitamin D3) 50 1 cap PO DAILY 09/18/21 04/16/23 mcg (2,000 unit) capsule multivitamin 1 tab PO DAILY 08/20/22 04/16/23 omega-3 300 mg-dha 120 mg-epa 180 1 cap PO DAILY 08/20/22 04/16/23 mg-fish oil 1,000 mg capsule acetaminophen 500 mg tablet 500 mg PO Q6H PRN mild pain 04/05/23 04/16/23 baclofen 10 mg tablet 10 mg PO TID 04/05/23 04/16/23 Previous Rx's Medication Instructions Recorded prednisone 20 mg tablet 20 mg PO BID #60 tabs 10/25/22 amoxicillin 875 mg-potassium 875 mg PO Q12H #16 tabs 04/11/23 clavulanate 125 mg tablet Allergies Allergy/AdvReac Type Severity Reaction Status Date / Time No Known Allergies Allergy Verified 04/16/23 12:02 [No Known Allergies*] Review of Systems Review of Systems: CONSTITUTIONAL: Denies weight loss, fever and chills. HEENT: Denies changes in vision and hearing. RESPIRATORY: Denies SOB and cough. CV: Denies palpitations no CP. GI: Denies abdominal pain, nausea, vomiting and diarrhea. : Denies dysuria and urinary frequency. MSK: Denies myalgia and joint pain. SKIN: Denies rash and pruritus. NEUROLOGICAL: Denies headache and syncope. PSYCHIATRIC: Denies recent changes in mood. Denies anxiety and depression. 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 Surgical History H/O hernia repair Family History Family History Other No family history of coronary artery disease Social History Social History Household Members: Family Housing: Apartment 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 have visiting nurse or other home services: Yes (Visiting nurse and occupational therapist) Alcohol intake: unknown Patient Tobacco Use Status: Current everyday Tobacco user Tobacco use type: Cigarette Cigarettes Per Day: 0.25 Smoked in Last 30 Days: No Use of substances other than those prescribed or required for medical reasons: No Substance Use Type: Marijuana Advance Directives: Yes Advance Directives on File: Yes Advance Directives Date on File: 08/21/22 service: No Current occupational status: disabled Physical Exam ED Vital Signs: Vital Signs - 24 hr 04/16/23 11:53 04/16/23 12:10 04/16/23 14:15 Temperature 97.1 F 97.9 F Pulse Rate 79 66 68 Respiratory Rate 18 16 16 Blood Pressure 122/82 117/75 116/78 Pulse Oximetry 100 99 100 Oxygen Delivery Method Room Air Room Air Room Air 04/16/23 15:41 04/16/23 18:00 04/16/23 20:19 Temperature 97.8 F 97.9 F 98.1 F Pulse Rate 58 71 74 Respiratory Rate 16 16 18 Blood Pressure 115/72 116/74 121/80 Pulse Oximetry 98 99 97 Oxygen Delivery Method Room Air Room Air Room Air BMI result Body Mass Index 26.5 GEN: Well developed, no acute distress, alert, oriented HEENT: Normocephalic, atraumatic, normal external ears, nose appears normal, no oropharyngeal edema or exudates Eyes: Normal to appearance Neck: Supple, no lymphadenopathy Respiratory: Talks in complete sentences, no respiratory distress, clear to auscultation bilaterally Cardiovascular: Regular rate and rhythm, no murmurs rubs or gallops Abdomen: Soft, nontender, nondistended, no guarding, no rebound Back: No CVA tenderness Extremities: No clubbing cyanosis or edema Neurologic: No focal neurologic deficits, cranial nerves 2-12 intact, strength is 5/5 bilaterally Skin: No rash : Chronic indwelling Villatoro catheter Course Reevaluation(s) Reevaluation #1: Patient's workup is complete. He would like to be discharged to short-term rehabilitation. This was the recommendation upon his discharge yesterday. He will stay overnight pending a bed search. Patient will be placed in physician observation. I have ordered his usual medications. Time: 19:23 Reevaluation #2: Patient will transition to the care of Dr. Flores. dispositon pending PT and CM evaluation. Patient to remain in Physician ED Obs Time: 22:00 Medications Administered Generic Name Dose Route Start Last Admin Trade Name Freq PRN Reason Stop Dose Admin Acetaminophen 650 mg 04/16/23 18:27 04/16/23 20:31 Acetaminophen 325 Mg Tablet PO 650 mg Q6H PRN Administration mild pain Amoxicillin/Clavulanate Potassium 875 mg 04/16/23 19:00 04/16/23 19:07 Amoxicillin/Potassium Clav 875 Mg Tablet PO 875 mg Q12H LALO Administration Baclofen 10 mg 04/16/23 21:00 04/16/23 20:31 Baclofen 10 Mg Tablet PO 10 mg TID LALO Administration Prednisone 20 mg 04/16/23 21:00 04/16/23 20:31 Prednisone 20 Mg Tablet PO 20 mg BID LALO Administration Medical Decision Making Medical Decision Making [facility] Narrative: 37-year-old male with history of multiple sclerosis, recent hospitalization due to UTI presents with generalized weakness. Patient was discharged home yesterday. He thought he would do okay at home but is failing to manage his daily needs. He reports living by himself. He would like short-term rehabilitation. Differential diagnosis: Generalized weakness, deconditioning, MS flare up, anemia, electrolyte abnormality Plan: Check laboratory analysis, case management, possible short-term rehabilitation. Differential Diagnosis Differential Diagnoses: The differential diagnosis associated with the presentation includes (See above) Consult Healthcare Provider Management of the patient was discussed with: Brim Shaper (Case management) Lab Data MDM Lab Attestation statement: I reviewed the patient's lab results. 04/16/23 14:14 04/16/23 14:14 Labs: Lab Results 04/16/23 04/16/23 04/16/23 Range/Units 14:10 14:14 14:14 WBC 9.4 (4.8-10.8) X10*3/uL RBC 4.91 (4.60-5.80) X10*6/uL Hgb 13.1 L (14.0-18.0) g/dl Hct 39.3 L (42.0-52.0) % MCV 80.0 (80.0-98.0) fL MCH 26.7 L (27.0-33.0) pg MCHC 33.3 (31.0-36.0) g/dl RDW 14.6 (11.0-16.0) % Plt Count 321 D (160-400) X10*3/uL MPV 11.0 (9.4-12.4) fL Immature Gran % (Auto) 1.1 H (0.0-0.4) % Neut % (Auto) 67.0 (45-73) % Lymph % (Auto) 17.9 L (20-40) % [place] % (Auto) 13.3 H (2-11) % Eos % (Auto) 0.4 (0-4) % Baso % (Auto) 0.3 (0-2) % Lymph # (Auto) 1.7 (1.2-4.9) X10*3/uL [place] # (Auto) 1.3 H (0.1-1.2) X10*3/uL Eos # (Auto) 0.0 (0.0-0.4) X10*3/uL Baso # (Auto) 0.0 (0.0-0.2) X10*3/uL Abs Immat Gran (auto) 0.10 H (0.00-0.03) X10*3/uL Absolute Neuts (auto) 6.3 (2.0-8.3) x10*3/uL Absolute Nucleated RBC 0.000 (0.0-0.012) X10*3/uL Nucleated RBC % (auto) 0.0 (0.0-0.2) /100WBC Sodium 144 (135-145) mmol/L Potassium 3.2 L (3.3-5.1) mmol/L Chloride 108 (96-108) mmol/L Carbon Dioxide 26 (22-29) mmol/L Anion Gap 13 (12-20) BUN 9 (9-16) mg/dL Creatinine 0.60 (0.5-1.4) mg/dL Estim Creat Clear Calc 161.5 Estimated GFR > 60 Random Glucose 78 (60-115) mg/dL Calcium 9.3 (8.4-10.2) mg/dL Total Bilirubin 0.6 (0.0-1.0) mg/dL AST 11 (5-37) U/L ALT 24 (0-40) U/L Alkaline Phosphatase 38 L (39-117) U/L Total Creatine Kinase 14 L (38-174) U/L Total Protein 6.9 (6.5-8.0) g/dL Albumin 3.8 (3.5-5.0) g/dL Urine Color Yellow Urine Appearance Clear Urine pH 7.0 (5.0-9.0) Ur Specific [place] 1.010 (1.005-1.025) Urine Protein 30 (1+) H (Neg-Trace) mg/dL Urine Glucose (UA) Negative (Negative) mg/dL Urine Ketones Negative (Negative) mg/dL Urine Blood Small (1+) H (Negative) Urine Nitrite Negative (Negative) Ur Leukocyte Esterase Moderate (2+) H (Negative) Urine RBC 11-20 H (0-2) /HPF Urine WBC 11-20 H (0-5) /HPF Ur Squamous Epith Cells 0-2 (0-2) /HPF Urine Bacteria 4+ (None Seen) Hyaline Casts 3-5 (0-2) /LPF External Record Review External record reviewed: Inpatient record (Recent discharge summary) Tests considered The following testing was considered but not selected: Physical therapy although I believe he just had this. Prescription Management I considered prescription management with: Antibiotic Chronic Conditions Patient?s care impacted by: Other (MS) Discharge Plan Discharge Clinical Impression: Generalized weakness Patient Disposition: Still a Patient Prescriptions: No Action cholecalciferol (vitamin D3) 50 mcg (2,000 unit) capsule 1 cap PO DAILY multivitamin Tablet 1 tab PO DAILY omega 7-dwn-xng-fish oil 300 mg (120 mg- 180mg)-1,000 mg capsule 1 cap PO DAILY prednisone 20 mg tablet 20 mg PO BID Qty: 60 0RF acetaminophen 500 mg tablet 500 mg PO Q6H PRN (Reason: mild pain) baclofen 10 mg tablet 10 mg PO TID amoxicillin-pot clavulanate 875-125 mg Tablet 875 mg PO Q12H Qty: 16 0RF
--- NOTE | 2023-04-16 15:41 | MHC.EDTECH ---
Patient repositioned with help of mail technicianTimoteo negrete. Patient boosted in bed and pillow placed under right hip. Patient given call villar and instructed to call us if needed.
--- NOTE | 2023-04-16 16:47 | PHA.MEDREC ---
Pharmacy Consult ? Medication Reconciliation Pharmacy has completed the medication reconciliation. spoke with patient. Nothing has changed since last visit besides starting the Augmentin.
--- NOTE | 2023-04-16 17:19 | MHC.CM.ED ---
CM met with patient at request of Dr. Ruiz.. A&Ox4. Lives with parents. Brother/HCP Rom is his [employer]. 37 hours/2 night hours from [facility]. Pt has MS. Is wheelchair bound x 2years, but was able to self transfer. Currently too weak to self transfer. Pt was hospitalized at [facility] from 04/05-04/11. PT recommended acute rehab at that time, but patient wanted to go home with [facility]. Pt now realizes that he is too weak to be home and needs rehab. PT evaluation pending. Pt is now agreeable to Acute rehab and [facility] is his first choice. Will make referrals. PCP is Ebenezer Leslie. HCP on file. D/C plan: acute rehab. Will need transport. CM following for d/c needs.
--- NOTE | 2023-04-16 18:15 | MHC.EDTECH ---
Patient transferred into hospital bed without incident. Call villar within reach.
--- NOTE | 2023-04-16 18:36 | PC.NURSE ---
Pt moved to hospital bed for comfort. Repositioned. Ate dinner. Villatoro emptied. Med rec order placed and completed by pharmacy and reviewed by Dr Ruiz.
--- NOTE | 2023-04-16 20:15 | PC.NURSE ---
this rn assumed care of pt @ 1900. pt medicated according to dec. this rn adjusted pt positioning utilizing pillows. pt calm and cooperative
--- NOTE | 2023-04-16 20:20 | MHC.EDTECH ---
This tech assumed care of pt at 1999,hourly rounding completed,vitals taken.Pt was repositioned to comfort. Belongings list completed and Call villar within reach
--- NOTE | 2023-04-16 21:32 | PC.NURSE ---
pt reports to this rn feeling very tight muscle tightness even after receiving baclofen at 2030. this rn made dr patterson aware of pt report. awaiting orders at this time
--- NOTE | 2023-04-16 22:04 | PC.NURSE ---
this rn attempted to medicate pt according to dec. second dose of 10mg baclofen ordered. pt refused baclofen at this time stating that past use of additional baclofen has not worked. this rn made dr patterson aware. awaiting additional orders
--- NOTE | 2023-04-16 22:12 | MHC.EDTECH ---
Hourly rounding completed,vitals taken and patient complains of lower back pain. This tech informed MAUREEN Jorge. Call villar within reach
--- NOTE | 2023-04-17 05:23 | PC.NURSE ---
pt sleeping positioned on back at this time in hospital bed. lights dimmed noise minimized
[2023-04-17 05:48] VITALS: BP 104/66; PULSE 86; RESP 16; TEMP 36.4; O2SAT 98
--- NOTE | 2023-04-17 05:50 | MHC.EDTECH ---
Patient repositioned and burciaga was emptied with 850 ml of yellow urine. VS taken and call villar placed within reach.
[2023-04-17 08:05] VITALS: BP 119/73; PULSE 74; O2SAT 97
--- NOTE | 2023-04-17 08:13 | PC.NURSE ---
assume pt care at 0700. pt evaluated by PT/OT plan is for rehab, pt aware of plan of care, meds given as ordered, breakfast given and repositioned to high Fowlers.
--- NOTE | 2023-04-17 10:13 | MHC.CM.ED ---
Addendum entered by Sharee Shore 04/17/23 11:25: [facility] is not able to offer a bed. [facility] is. Patient agreeable. [facility] is in the process of obtaining ins auth. Original Note: Patient remains in ER overflow. PT and OT are recommending acute rehab. [facility] is not able to offer a bed. Clinical updates sent to [facility] and [facility]. Continue to monitor for d/c needs.
--- NOTE | 2023-04-17 12:05 | PC.NURSE ---
Nurse to nurse given to Rachna, RN in overflow.
--- NOTE | 2023-04-17 13:50 | PC.NURSE ---
Patient transferred from ED at 1240 via stretcher. Patient alert and oriented x 4. Bedbound at baseline, chronic Villatoro draining yellow urine. VSS. denies any pain at this time. Repositioned supine in bed. Oriented to room and call villar. Awaiting placement overnight to rehab facility. Patient aware of the plan of care.
--- NOTE | 2023-04-17 14:37 | MHC.CM.ED ---
[facility] will not authorize acute rehab. They will authorize SNF. Referral broadcasted at this time to all facilities within 25 miles of patient's home. Continue to monitor for d/c needs.
[2023-04-17 15:29] VITALS: BP 125/73; PULSE 111; RESP 18; TEMP 36.5; O2SAT 99
--- NOTE | 2023-04-17 16:48 | MHC.CM.ED ---
[facility] has offered a bed and patient accepts. Authorization is pending. CM following.
--- NOTE | 2023-04-17 17:27 | PC.NURSE ---
Alert and oriented, ate well for dinner, po med as ordered. Denies any pain or discomfort. Patient accepted at [facility] in [place] for short term rehab
[2023-04-18 01:15] VITALS: BP 115/66; PULSE 68; RESP 18; TEMP 36.2; O2SAT 98
[2023-04-18 05:36] VITALS: BP 106/60; PULSE 75; RESP 18; TEMP 36.4; O2SAT 99
[2023-04-18 09:31] VITALS: BP 125/69; PULSE 90; RESP 18; TEMP 36.3; O2SAT 98
--- NOTE | 2023-04-18 10:29 | PC.NURSE ---
pt resting in bed and watching TV, no requests at this time, reports some low laisha pain. will ctm
--- NOTE | 2023-04-18 11:57 | PC.NURSE ---
pt is requesting to speak to CM bc they would like to go home instead of arranged facility
--- NOTE | 2023-04-18 12:23 | MHC.CM.ED ---
Patient remains in ER overflow. Insurance auth obtained by [facility]. Received notification from MAUREEN Stiles that patient wants to return home with [facility]. Met with patient. Verified patient is declining short term rehab. Patient will return home with resumption of [facility] via BLS at 2pm. Patient, Linsey REDDY and Alison SAHU aware. [facility] made aware. Continue to monitor for d/c needs.
--- NOTE | 2023-04-18 13:12 | PC.NURSE ---
burciaga bag emptied 1200ml.
--- NOTE | 2023-04-18 13:52 | PC.NURSE ---
medicated per DEC. awaiting ambulance for transport home
== END 2023-04-18 14:18 | disposition home or self-care (01) ==
PROVIDERS: Emergency Provider Emergency Medicine
DX: R53.1 Weakness (principal); N39.0 Urinary tract infection, site not specified; B96.5 Pseudomonas (aeruginosa) (mallei) (pseudomallei) as the cause of diseases classified elsewhere; Z20.822 Contact with and (suspected) exposure to COVID-19; G35 Multiple sclerosis; F17.210 Nicotine dependence, cigarettes, uncomplicated; F12.90 Cannabis use, unspecified, uncomplicated; Z79.899 Other long term (current) drug therapy
CPT/HCPCS: 36415; 80053; 81001; 82550; 85025; 87086; 87088; 87186; 87635; 97162; 97166; 99284

== ENCOUNTER 2023-05-27 22:10 | Emergency (ER) | payer OTHER, SELFPAY ==
[2023-05-27 22:13] VITALS: BP 122/80; PULSE 75; O2SAT 97
[2023-05-27 22:24] VITALS: BP 129/75; PULSE 74; RESP 16; TEMP 37.4; O2SAT 98
--- NOTE | 2023-05-27 22:25 | MHC.EDTECH ---
PATIENT CAME IN VIA EMS ,VITALS SIGN TAKEN ,AND BLADDER SCAN DONE ,MAUREEN GRADY IS AWARE OF BLADDER SCAN RETENTION RESULT OF 850 ML URINE IN PATIENT BLADDER
[2023-05-27 22:56] VITALS: BP 127/83; PULSE 69; RESP 18; TEMP 36.4; O2SAT 98; BMI 26.9
[2023-05-27 23:27] LABS: Hematocrit 41.6 % (42.0-52.0); Hemoglobin 13.5 g/dl (14.0-18.0); Mean Corpuscular HGB Conc 32.5 g/dl (31.0-36.0); Mean Corpuscular Hemoglobin 26.8 pg (27.0-33.0); Mean Corpuscular Volume 82.7 fL (80.0-98.0); Mean Platelet Volume 10.9 fL (9.4-12.4); Platelet Count 204 X10*3/uL (160-400); Red Blood Count 5.03 X10*6/uL (4.60-5.80); Red Cell Distribution Width 15.9 % (11.0-16.0); White Blood Count 11.8 X10*3/uL (4.8-10.8)
[2023-05-27 23:29] LABS: Appearance Urine Cloudy; Color Urine Red; Glucose Urine UA Negative (Negative); Leukocyte Esterase Urine Large (3+) (Negative); Nitrite Urine Positive (Negative); PH 7.5 (5.0-9.0); UMIC TRIGGER UACC YES; Urine Blood Large (3+) (Negative); Urine Ketones Negative (Negative); Urine Protein 30 (1+) mg/dL (Neg-Trace)
[2023-05-27 23:31] LABS: Bacteria Urine 4+ (None Seen); Hyaline Casts Urine 0-2 /LPF (0-2); RBC Urine >20 /HPF (0-2); Squamous Epithelial Cell Urine 0-2 /HPF (0-2); UACC Culture Trigger YES; WBC Urine >50 /HPF (0-5)
[2023-05-27 23:32] VITALS: BP 131/81; PULSE 68; RESP 16; TEMP 37; O2SAT 98
--- NOTE | 2023-05-27 23:33 | MHC.EDTECH ---
PATIENT BLOOD DRAWN AND URINE SAMPLE COLLECTED AND SENT TO LAB ,VITALS SIGN TAKEN ,AFTER RN REMOVE MARTIN AND PATIENT VOID ,BLADDER SCAN TAKEN PATIENT HAD 902 ML IN BLADDER ,RN MIGUEL A IS AWARE ,PT IS AWAKE AND RESTING QUIETLY IN BED .
[2023-05-27 23:45] LABS: Alanine Aminotransferase 37 U/L (0-40); Albumin Level 4.1 g/dL (3.5-5.0); Alkaline Phosphatase 34 U/L (39-117); Anion Gap 13 (12-20); Aspartate Amino Transferase 19 U/L (5-37); Bilirubin Total 0.2 mg/dL (0.0-1.0); Blood Urea Nitrogen 14 mg/dL (9-16); Calcium 9.4 mg/dL (8.4-10.2); Carbon Dioxide 24 mmol/L (22-29); Chloride 106 mmol/L (96-108); Creatinine Clr Calc Pharmacy 121.1; Estimated Glomerular Filt Rate > 60; Glucose Random 132 mg/dL (60-115); Potassium 4.5 mmol/L (3.3-5.1); Sodium 138 mmol/L (135-145); Total Protein 7.5 g/dL (6.5-8.0)
--- NOTE | 2023-05-28 00:32 | PC.NURSE ---
Pt arrived to ED via EMS, pt c/o 101/10 pain in abdomen and no urine coming from burciaga. BS 870ml. Minimal urine in tubing that is cloudy and odorous. This RN attempted to aspirate and irrigate burciaga without success. Home burciaga removed, pt urinating, Burciaga had hair and sediment clogging tubing. Urine sample sent. New burciaga placed per orders. 16 Fr, no difficulties, urine patent and draining at this time. Patient reported minimal discomfort. Will get new bladder scan
--- NOTE | 2023-05-28 00:54 | MHC.EDTECH ---
AFTER MAUREEN GRADY INSERTED NEW MARTIN CATHETHER ,PATIENT OUT PUT WAS 1900 ML ,BLADDER SCAN TAKEN AGAIN AND RESULT WAS 0 ,MAUREEN GRADY IS AWARE ,PT HAD A TUNA FISH SANDWICH AND A OVI YOLANDA FOR SNACK ,PT BROTHER IN LAW AT BEDSIDE ,PATIENT SAID HE DOES NOT HAVE ANY PAIN OR DISCOMFORT AT THIS TIME .
[2023-05-28 02:00] VITALS: BP 123/78; PULSE 84; RESP 16; TEMP 36.7; O2SAT 98
[2023-05-28 06:00] VITALS: BP 120/76; PULSE 56; RESP 12; O2SAT 96
--- NOTE | 2023-05-28 06:37 | PC.NURSE ---
Pt resting through the night. Denies any further pain since new burciaga placed earlier in the night. Burciaga is patent, draining cloudy pink tinged urine at times. VSS. Pt awaiting MD roberts.
--- NOTE | 2023-05-28 06:58 | ED.MALEGU ---
HPI - Male Genitourinary General Chief complaint: Urogenital-Male Stated complaint: groin pain Time Seen by Provider: 05/28/23 06:38 Source: patient and EMS Mode of arrival: EMS Limitations: no limitations History of Present Illness HPI Narrative: This is a 37-year-old male with a history of multiple sclerosis, chronic indwelling Burciaga catheter are who presents to the ER with complaints of his Burciaga catheter not draining last evening. Patient reports that yesterday he notices catheter was not draining. He had associated abdominal pain and distension with this. He came into the emergency room last night. Since being here in the emergency room his Burciaga catheter has started draining. He has no complaints of abdominal pain, back pain, fever, vomiting, weakness. Patient reports Burciaga catheter is changed monthly and was last changed on May 01. Of note, patient was admitted to this facility April 05 for urinary tract infection requiring vasopressors and ICU admission. His urine culture was reviewed which showed mixed bacterial contamination. He has had subsequent urine cultures which shows due to the illness which is pansensitive. He is on prophylactic Bactrim 3 times weekly. Related Data Home Medications Medication Instructions Recorded Confirmed cholecalciferol (vitamin D3) 50 1 cap PO DAILY 09/18/21 04/16/23 mcg (2,000 unit) capsule multivitamin 1 tab PO DAILY 08/20/22 04/16/23 omega-3 300 mg-dha 120 mg-epa 180 1 cap PO DAILY 08/20/22 04/16/23 mg-fish oil 1,000 mg capsule acetaminophen 500 mg tablet 500 mg PO Q6H PRN mild pain 04/05/23 04/16/23 baclofen 10 mg tablet 10 mg PO TID 04/05/23 04/16/23 Previous Rx's Medication Instructions Recorded prednisone 20 mg tablet 20 mg PO BID #60 tabs 10/25/22 amoxicillin 875 mg-potassium 875 mg PO Q12H #16 tabs 04/11/23 clavulanate 125 mg tablet levofloxacin 750 mg tablet 750 mg PO DAILY 6 days #6 tabs 05/28/23 Allergies Allergy/AdvReac Type Severity Reaction Status Date / Time No Known Allergies Allergy Verified 04/16/23 12:02 [No Known Allergies*] Review of Systems Review of Systems: Yes all other systems are reviewed and are negative Constitutional: Constitutional: Reports no additional constitutional complaints, Denies body ache(s), Denies chills, Denies fever(s), Denies headache(s) and Denies weakness Eyes: Eyes: Reports no additional eye complaints and Denies change in vision ENT: Reports system reviewed and no additional complaints, except as documented, Denies dizziness, Denies headache(s), Denies nasal congestion, Denies nasal discharge and Denies neck pain Cardiovascular: Cardiovascular: Reports no additional cardiovascular complaints, Denies chest pain, Denies leg edema and Denies dyspnea Respiratory: Respiratory: Reports no additional respiratory complaints, Denies cough and Denies dyspnea Gastrointestinal: Gastrointestinal: Reports no additional gastrointestinal complaints, Denies abdominal pain, Denies diarrhea, Denies nausea and Denies vomiting Genitourinary: Genitourinary: Denies hematuria, Reports difficulty urinating, Denies dysuria, Denies flank pain, Denies penile discharge, Denies testicular pain and Denies urinary incontinence Musculoskeletal: Musculoskeletal: Reports no additional musculoskeletal complaints, Denies back pain, Denies arthralgias, Denies joint swelling, Denies neck pain, Denies numbness and Denies tingling Integumentary/Breasts: Skin/Breast: Reports system reviewed and no additional complaints, except as docu and Denies rash Neurologic: Reports system reviewed and no additional complaints, except as documented, Denies Abnormal speech present, Denies dizziness, Denies headache(s), Denies numbness, Denies tingling and Denies weakness PMFSH Past Medical History Attestation statement: The following information was validated with the patient. 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 Surgical History H/O hernia repair Family History Family History Other No family history of coronary artery disease Social History Social History Household Members: Family Housing: Apartment 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 have visiting nurse or other home services: Yes (Visiting nurse and occupational therapist) Alcohol intake: never Patient Tobacco Use Status: Current everyday Tobacco user Tobacco use type: Cigarette Cigarettes Per Day: 0.25 Smoked in Last 30 Days: No Use of substances other than those prescribed or required for medical reasons: Yes Substance Use Type: Marijuana Advance Directives: Yes Advance Directives on File: Yes Advance Directives Date on File: 08/21/22 service: No Current occupational status: disabled Physical Exam Vital Signs: Vital Signs: Last Vital Signs Temp 97.7 F 05/28/23 07:15 Pulse 62 05/28/23 07:15 Resp 18 05/28/23 07:15 BP 119/79 05/28/23 07:15 Pulse Ox 99 05/28/23 07:15 O2 Del Method Room Air 05/28/23 07:15 BMI result Body Mass Index 26.9 Const: General: cooperative, healthy appearing, comfortable and no acute distress Orientation/consciousness: patient oriented x3 Limitations: no limitations HEENT: Head: Yes normal to inspection Ears: hearing grossly normal bilaterally General nose exam: Normal external nose present Face and sinus: Yes normal facial exam Mouth: Normal oral and palatal mucosa present Throat: Yes posterior oropharynx normal Eyes: General: appearance normal, both eyes and all related structures Pupils: Equal, round and reactive pupils present Neck: Neck: Yes normal visual inspection Chest: Chest palpation & inspection: normal inspection of the chest Resp: Effort & Inspection: normal respiratory effort Auscultation: clear to auscultation bilaterally Cardio: Rate: regular rate Rhythm: regular rhythm Peripheral pulses: Peripheral pulses 2+ throughout GI: Inspection: Yes normal to inspection Palpation (GI): Soft to palpation and nontender Auscultation: normal bowel sounds : Other: +burciaga catheter present Back/Spine/Pelvis: Thoracic/Lumbar Spine: thoracic and lumbar spine normal to inspection Skin: General skin exam: no rashes or lesions noted Neuro: General: patient oriented x3 Cranial nerves: Yes Equal, round and reactive pupils present Cognition (Neuro): normal cognition Speech: No Abnormal speech present Extrem: General: Yes normal to inspection Course Course Course Narrative: UA is consistent with urinary tract infection. Labs show mild leukocytosis otherwise unremarkable. Patient is not toxic appearing. Tolerating p.o.. No abdominal pain or CVA tenderness. Afebrile. Patient was started on Levaquin. Patient given 1st dose in the emergency room. Patient will be given strict return precautions of when to return to the emergency room. Comfortable plan for discharge home. Medications Administered Discontinued Medications Generic Name Dose Route Start Last Admin Trade Name Elijah PRN Reason Stop Dose Admin Levofloxacin 750 mg 05/28/23 06:55 05/28/23 07:24 Levofloxacin 750 Mg Tablet PO 05/28/23 06:56 750 mg ONCE ONE Administration Medical Decision Making Medical Decision Making [facility] Narrative: 37-year-old male with a history of multiple sclerosis and chronic indwelling Burciaga presents to the ER with complaints of Burciaga catheter not draining last evening with associated abdominal pain. Since being in the emergency room his Burciaga catheter has subsequently started draining and his abdominal pain is resolved. Of note patient has chronic utis, several admissions for same on, on prophylactic Bactrim. On arrival patient is alert and oriented. His abdomen is soft and nontender. His Burciaga catheter is normal in appearance and is draining urine. He has no CVA tenderness. His vitals are stable. He is afebrile. non toxic Patient had labs and urine done from triage. Will review Differential Diagnosis Differential Diagnoses: The differential diagnosis associated with the presentation includes Urinary tract infection Burciaga catheter complication Pyelonephritis Renal colic Admission/Observation Consideration of admission/observation: Escalation of care including admission/observation considered UA is consistent with UTI. Patient is afebrile. Nontoxic. No abdominal pain or CVA tenderness to suggest pyelonephritis. tolerating PO Patient is on prophylactic Bactrim 3 times weekly. We can not start him on Levaquin orally. Lab Data [facility] Lab Attestation statement: I reviewed the patient's lab results. Reviewed labs which show mild leukocytosis with no shift. Otherwise unremarkable 05/27/23 23:20 05/27/23 23:20 Labs: Lab Results 05/27/23 05/27/23 05/27/23 Range/Units 23:20 23:20 23:21 WBC 11.8 H (4.8-10.8) X10*3/uL RBC 5.03 (4.60-5.80) X10*6/uL Hgb 13.5 L (14.0-18.0) g/dl Hct 41.6 L (42.0-52.0) % MCV 82.7 (80.0-98.0) fL MCH 26.8 L (27.0-33.0) pg MCHC 32.5 (31.0-36.0) g/dl RDW 15.9 (11.0-16.0) % Plt Count 204 D (160-400) X10*3/uL MPV 10.9 (9.4-12.4) fL Absolute Nucleated RBC 0.000 (0.0-0.012) X10*3/uL Nucleated RBC % (auto) 0.0 (0.0-0.2) /100WBC Sodium 138 (135-145) mmol/L Potassium 4.5 D (3.3-5.1) mmol/L Chloride 106 (96-108) mmol/L Carbon Dioxide 24 (22-29) mmol/L Anion Gap 13 (12-20) BUN 14 (9-16) mg/dL Creatinine 0.80 (0.5-1.4) mg/dL Estim Creat Clear Calc 121.1 Estimated GFR > 60 Random Glucose 132 H (60-115) mg/dL Calcium 9.4 (8.4-10.2) mg/dL Total Bilirubin 0.2 (0.0-1.0) mg/dL AST 19 (5-37) U/L ALT 37 (0-40) U/L Alkaline Phosphatase 34 L (39-117) U/L Total Protein 7.5 (6.5-8.0) g/dL Albumin 4.1 (3.5-5.0) g/dL Urine Color Red A Urine Appearance Cloudy Urine pH 7.5 (5.0-9.0) Ur Specific [place] 1.010 (1.005-1.025) Urine Protein 30 (1+) H (Neg-Trace) mg/dL Urine Glucose (UA) Negative (Negative) mg/dL Urine Ketones Negative (Negative) mg/dL Urine Blood Large (3+) H (Negative) Urine Nitrite Positive H (Negative) Ur Leukocyte Esterase Large (3+) H (Negative) Urine RBC >20 H (0-2) /HPF Urine WBC >50 H (0-5) /HPF Ur Squamous Epith Cells 0-2 (0-2) /HPF Urine Bacteria 4+ (None Seen) Hyaline Casts 0-2 (0-2) /LPF Independent Historian Clinical information obtained from an independent historian. History obtained from or confirmed by: EMS Clinical information was obtained from nursing, EMS External Record Review External record reviewed: Inpatient record Reviewed inpatient record from admission April 05 for UTI requiring vasopressors and ICU admission. Prescription Management I considered prescription management with: Antibiotic Urinary tract infection requiring oral antibiotics Chronic Conditions Patient?s care impacted by: Other MS with chronic indwelling Burciaga Discharge Plan Discharge Clinical Impression: Acute UTI Patient Disposition: Home, Self-Care Instructions: Urinary Tract Infection in Men (ED) Additional Instructions: Return for fever, catheter not draining, weakness, vomiting, abdominal pain, back pain Start antibiotic tomorrow Prescriptions: New levofloxacin 750 mg tablet 750 mg PO DAILY 6 Days Qty: 6 0RF No Action cholecalciferol (vitamin D3) 50 mcg (2,000 unit) capsule 1 cap PO DAILY multivitamin Tablet 1 tab PO DAILY omega 6-pbv-lpn-fish oil 300 mg (120 mg- 180mg)-1,000 mg capsule 1 cap PO DAILY prednisone 20 mg tablet 20 mg PO BID Qty: 60 0RF acetaminophen 500 mg tablet 500 mg PO Q6H PRN (Reason: mild pain) baclofen 10 mg tablet 10 mg PO TID amoxicillin-pot clavulanate 875-125 mg Tablet 875 mg PO Q12H Qty: 16 0RF Referrals: Name,MD Ebenezer [Primary Care Provider] - 1 week Interventions: ED Discharge Assessment Last Done: 05/28/23 07:35 Discharge Date/Time: 05/28/23 09:07 Print Language: Luxembourgish
[2023-05-28 07:15] VITALS: BP 119/79; PULSE 62; RESP 18; TEMP 36.5; O2SAT 99
[2023-05-28] MEDS: levoFLOXacin 750 MG TABLET PO (07:24)
== END 2023-05-28 09:07 | disposition home or self-care (01) ==
PROVIDERS: Emergency Provider Emergency Medicine; PCP Internal Medicine Geriatric Medicine
DX: N39.0 Urinary tract infection, site not specified (principal); T83.9XXA Unspecified complication of genitourinary prosthetic device, implant and graft, initial encounter; Y73.8 Miscellaneous gastroenterology and urology devices associated with adverse incidents, not elsewhere classified; Y92.9 Unspecified place or not applicable; Z79.899 Other long term (current) drug therapy
CPT/HCPCS: 36415; 51702; 80053; 81001; 85027; 87086; 99284

== ENCOUNTER 2023-08-02 13:01 | Emergency (ER) | payer OTHER, SELFPAY ==
--- NOTE | ~2023-08-02 | CT_ITS ---
EXAMINATION: CT HEAD WITHOUT CONTRAST CT CERVICAL SPINE WITHOUT CONTRAST CLINICAL INFORMATION: Loss of consciousness. COMPARISON: CT head 10/23/2022. TECHNIQUE: Pharmaceutical Scientist images were obtained. CT imaging of the head and cervical spine was performed without contrast. Data was reformatted into multiplanar images at the acquisition station. This CT examination was performed using dose optimization techniques as appropriate, including one or more of the following: Automated exposure control, iterative reconstruction, and adjustment of technique factors (mA and/or kVp) according to patient size (this includes techniques or standardized protocols for targeted exams where dose is matched to indication/reason for exam). Fleischner Society criteria for the followup of incidental pulmonary nodules was implemented if appropriate. DLP: 1224 mGy-cm. FINDINGS: Brain: There is disproportionate atrophy of the cerebellum and brainstem. There is no acute intracranial hemorrhage or abnormal extra-axial collection. No intracranial mass effect or midline shift. Lateral and third ventricles are normal. No hydrocephalus. Conroy-white matter differentiation is preserved and there is no evidence of acute territorial infarct. The calvarium and skull base are intact. Mastoid air cells and middle ear cavities are well aerated. No active paranasal sinus disease. Cervical spine: Spinal alignment is normal. Vertebral heights are preserved. No acute cervical spine fracture. No abnormal prevertebral soft tissue swelling. Grossly no spinal canal compromise. Uncovertebral joint spurring causes mild neuroforaminal encroachment levels of C4-C5 and C5-C6. There is considerable atrophy of the cervical spinal cord that coincides with findings associated on MR imaging of the cervical spine from 01/21/2022. Visualized soft tissues of the neck are unremarkable. Lung apices are clear. CT/CT cervical spine wo IV con IMPRESSION: Head: There is disproportionate atrophy of the cerebellum and brainstem. Otherwise unremarkable examination in that there is no evidence of acute territorial infarct or hemorrhage. Cervical Spine: No acute fracture and no posttraumatic spinal subluxation. There is considerable atrophy of the cervical spinal cord that coincides with findings associated on MR imaging of the cervical spine from 01/21/2022.
[2023-08-02 13:13] VITALS: BP 130/96; BP 136/97; PULSE 79; PULSE 85; RESP 15; TEMP 36.9; O2SAT 97; O2SAT 99; BMI 24.6
--- NOTE | 2023-08-02 13:18 | ED.FALL ---
HPI - Fall General Chief Complaint: Head Injury Stated Complaint: FALL FROM STANDING POSTION Source: patient, EMS, RN notes reviewed and old records reviewed Mode of arrival: EMS History of Present Illness HPI Narrative: 37-year-old male with a past medical history of MS, wheelchair bound, anemia, neuromyelitis optica spectrum disorder, chronic indwelling Villatoro catheter, presenting to the ED via EMS s/p mechanical fall out of wheelchair [employer]. Patient states he went to stand up from wheelchair to look out window however misplaced hands and fell backwards with wheelchair, + head strike with + brief LOC. reports feeling lightheaded and nauseous after incident. Denies symptoms prior to incident. Denies taking anticoagulation, CP/SOB, back pain MD complaint: fall Related Data Home Medications Medication Instructions Recorded Confirmed cholecalciferol (vitamin D3) 50 1 cap PO DAILY 09/18/21 04/16/23 mcg (2,000 unit) capsule multivitamin 1 tab PO DAILY 08/20/22 04/16/23 omega-3 300 mg-dha 120 mg-epa 180 1 cap PO DAILY 08/20/22 04/16/23 mg-fish oil 1,000 mg capsule acetaminophen 500 mg tablet 500 mg PO Q6H PRN mild pain 04/05/23 04/16/23 baclofen 10 mg tablet 10 mg PO TID 04/05/23 04/16/23 Previous Rx's Medication Instructions Recorded prednisone 20 mg tablet 20 mg PO BID #60 tabs 10/25/22 amoxicillin 875 mg-potassium 875 mg PO Q12H #16 tabs 04/11/23 clavulanate 125 mg tablet levofloxacin 750 mg tablet 750 mg PO DAILY 6 days #6 tabs 05/28/23 Allergies Allergy/AdvReac Type Severity Reaction Status Date / Time No Known Allergies Allergy Verified 04/16/23 12:02 [No Known Allergies*] Review of Systems Review of Systems: Constitutional: No Fever, No Chills, No Fatigue, No Malaise ENT/Mouth: No Ear Pain, No sore throat, No Rhinorrhea, No Swallowing Difficulty Eyes: No Eye Pain, No Swelling, No Redness, No Vision Changes Cardiovascular: No Chest Pain, No SOB, No Edema, No Palpitations Respiratory: No Cough, No Sputum, No Dyspnea Gastrointestinal: +Nausea, No Vomiting, No Diarrhea, No Constipation, No Abdominal pain Genitourinary: No Dysuria, No Hematuria, No Urinary Incontinence/retention, No Flank Pain Musculoskeletal: +neck pain, No Myalgias, No Joint Swelling Skin: No Skin Lesions, No rash Neuro: No Weakness, No Numbness, No Paresthesias, +Loss of Consciousness, +Headache, +head strike Yes all other systems are reviewed and are negative Constitutional: Constitutional: Reports as per [facility] Past Medical History Attestation statement: The following information was validated with the patient. 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 Microcytic anemia Multiple sclerosis Headache Surgical History H/O hernia repair Family History Family History Other No family history of coronary artery disease Social History Social History Household Members: Family Housing: Apartment 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 have visiting nurse or other home services: Yes (Visiting nurse and occupational therapist) Alcohol intake: never Patient Tobacco Use Status: Current everyday Tobacco user Tobacco use type: Cigarette Cigarettes Per Day: 0.25 Substance Use Type: Marijuana Advance Directives: No Advance Directives Information Provided: No Advance Directives Date on File: 08/21/22 service: No Current occupational status: disabled Physical Exam Vital Signs: Vital Signs: Last Vital Signs Temp 98.5 F 08/02/23 13:13 Pulse 79 08/02/23 13:13 Resp 15 08/02/23 13:13 BP 136/97 H 08/02/23 13:13 Pulse Ox 97 08/02/23 13:13 O2 Del Method Room Air 08/02/23 13:13 BMI result Body Mass Index 24.6 Const: General: cooperative, healthy appearing and no acute distress Orientation/consciousness: patient oriented x3 Limitations: no limitations HEENT: Head: Yes normal to inspection, No Arnett's sign, Yes hematoma (To posterior scalp with mild tenderness) and No raccoon eyes Ears: hearing grossly normal bilaterally General nose exam: Normal external nose present Face and sinus: Yes normal facial exam Mouth: Normal oral and palatal mucosa present Throat: Yes uvula midline, No uvula laterally displaced and No uvular edema Eyes: General: appearance normal, both eyes and all related structures Pupils: Equal, round and reactive pupils present EOM: EOMs intact bilaterally Neck: Neck: Yes normal visual inspection, Yes no meningeal signs and No anterior neck swelling Resp: Effort & Inspection: normal respiratory effort and no respiratory distress Cardio: Rate: regular rate GI: Inspection: Yes normal to inspection Palpation (GI): Soft to palpation, nontender, no guarding and not rigid Back/Spine/Pelvis: Other: No midline cervical/thoracic/lumbar spinous tenderness/step-off or deformity Skin: Rashes: no rashes Wounds: no wounds Neuro: Other: Chronic weakness, at patient's baseline, CHASE General: patient oriented x3, tone normal, moves all extremities and no meningeal signs Cranial nerves: Yes CN's II-XII intact bilaterally and Yes Equal, round and reactive pupils present Gait exam (Neuro): Other gait observations present (wheelchair bound) Motor exam (neuro): no tremor noted Extrem: General: Yes normal to inspection Course Course Course Narrative: 1438--CT head/brain wo IV con/CT cervical spine wo IV con IMPRESSION: Head: There is disproportionate atrophy of the cerebellum and brainstem. Otherwise unremarkable examination in that there is no evidence of acute territorial infarct or hemorrhage. Cervical Spine: No acute fracture and no posttraumatic spinal subluxation. There is considerable atrophy of the cervical spinal cord that coincides with findings associated on MR imaging of the cervical spine from 01/21/2022. Results discussed with patient including worrisome signs and symptoms and strict return precautions, and when to return to the emergency department. They verbalized understanding and feel safe for discharge at this time. Medical Decision Making Medical Decision Making [facility] Narrative: 37-year-old male with a past medical history of MS, wheelchair bound, anemia, neuromyelitis optica spectrum disorder, chronic indwelling Villatoro catheter, presenting to the ED via EMS s/p mechanical fall out of wheelchair [employer] w/+ head strike and LOC. on exam vital signs stable, NAD, nontoxic appearing, no midline spinous tenderness throughout, + posterior scalp hematoma noted with mild tenderness. No focal neuro deficits. Concern for concussion vs ICH vs fractures. Low suspicion for intra-abdominal or intrathoracic injury Plan: Head/C-spine CT Please refer to course for remaining clinical decision making, interpretation of labs/imaging results, and discussions with consultants and/or family members. Differential Diagnosis Differential Diagnoses: The differential diagnosis associated with the presentation includes As above Admission/Observation Consideration of admission/observation: Escalation of care including admission/observation considered Lab Data [facility]DM Lab Attestation statement: I reviewed the patient's lab results. Independent Interpretation I performed an independent interpretation of an: CT Scan Radiology Impression Discussion of test interpretation with radiology: I have reviewed the radiologist's reading. External Record Review External record reviewed: Inpatient record, Office record, Outpatient record, Prior outpatient labs, Prior outpatient radiology, Primary care record and Outside ED record Tests considered The following testing was considered but not selected: As above Prescription Management I considered prescription management with: Pain Medication Chronic Conditions Patient?s care impacted by: Other (MS) Discharge Plan Discharge Clinical Impression: Closed head injury Patient Disposition: Home, Self-Care Instructions: Head Injury (ED) Additional Instructions: Your CT scan to not show any acute bleeds or fractures Ice painful area. Take Tylenol Motrin for pain Practice brain rest, avoid bright lights, screen time Follow-up with her doctor If symptoms persist or worsen you develop weakness, persistent or unremitting nausea/vomiting return to the ED Prescriptions: No Action cholecalciferol (vitamin D3) 50 mcg (2,000 unit) capsule 1 cap PO DAILY multivitamin Tablet 1 tab PO DAILY omega 5-eqi-knt-fish oil 300 mg (120 mg- 180mg)-1,000 mg capsule 1 cap PO DAILY prednisone 20 mg tablet 20 mg PO BID Qty: 60 0RF acetaminophen 500 mg tablet 500 mg PO Q6H PRN (Reason: mild pain) baclofen 10 mg tablet 10 mg PO TID amoxicillin-pot clavulanate 875-125 mg Tablet 875 mg PO Q12H Qty: 16 0RF levofloxacin 750 mg tablet 750 mg PO DAILY 6 Days Qty: 6 0RF Referrals: eTz Flores MD [Emergency Provider] - 5 days [facility] [Primary Care Provider] -
--- NOTE | 2023-08-02 14:59 | PC.NURSE ---
spoke jesse pt advised bring dc'd will need transportation back home- ammunition specialist aware
[2023-08-02 16:39] VITALS: BP 123/84; PULSE 73; RESP 14; O2SAT 97
--- NOTE | 2023-08-02 17:44 | PC.NURSE ---
pt dishcarged home via rox [facility]
== END 2023-08-02 17:44 | disposition home or self-care (01) ==
PROVIDERS: Emergency Provider Internal Medicine
DX: S09.90XA Unspecified injury of head, initial encounter (principal); W07.XXXA Fall from chair, initial encounter; Y93.89 Activity, other specified; Y92.008 Other place in unspecified non-institutional (private) residence as the place of occurrence of the external cause; Y99.9 Unspecified external cause status
CPT/HCPCS: 70450; 72125; 99283; 99284

== ENCOUNTER 2023-08-05 15:14 | Emergency (ER) | payer OTHER, SELFPAY ==
[2023-08-05 15:34] VITALS: BP 144/82; PULSE 82; O2SAT 98
[2023-08-05 15:39] VITALS: BP 128/85; PULSE 79; RESP 15; TEMP 36.6; O2SAT 98
[2023-08-05 15:43] VITALS: BP 128/85; PULSE 80; RESP 16; TEMP 37; O2SAT 99; BMI 24.8
[2023-08-05 16:30] VITALS: BP 130/87; PULSE 73; RESP 18; O2SAT 97
--- NOTE | 2023-08-05 16:39 | ED_ITS ---
HPI - Male Genitourinary General Chief complaint: Urogenital-Male Stated complaint: BLADDER PAIN,DECREASED URINARY OUTPUT Time Seen by Provider: 08/05/23 16:03 Source: patient Mode of arrival: EMS Limitations: no limitations History of Present Illness HPI Narrative: Patient is a 29-year-old male presents emergency department via EMS with concerns for urinary retention. He has a chronic Burciaga catheter since November or December of 2022 which was inserted initially a [facility] s/p urinary retention, she reports a secondary to multiple sclerosis. He states that yesterday he was having pain to his bladder/suprapubic region, and noticed decreased output in the Burciaga catheter, ultimately he did have sufficient drainage in his pain resolved. He states that today he went multiple hours without urinary output in the drainage bag, and again had pain to the lower abdomen/suprapubic region which prompted his call to EMS. Upon transport he had sudden output of 1200 mL of clear yellow urine, and again resolution in his pain. He denies any kink or obstruction to the external catheter or tubing. His catheter was last changed July 24 through his urologist office, he states that is typically changed every 15-30 days. He does state that at the last catheter change he had a significant amount of blood clots, and was noted to have a urinary infection for which he completed a course of oral antibiotics (he does not recall the name). He denies fevers, chills, shortness of breath, chest pain, nausea, vomiting, persistent abdominal pain outside of the aforementioned, flank pain, odor to the urine, hematuria. Related Data Home Medications Medication Instructions Recorded Confirmed cholecalciferol (vitamin D3) 50 1 cap PO DAILY 09/18/21 04/16/23 mcg (2,000 unit) capsule multivitamin 1 tab PO DAILY 08/20/22 04/16/23 omega-3 300 mg-dha 120 mg-epa 180 1 cap PO DAILY 08/20/22 04/16/23 mg-fish oil 1,000 mg capsule acetaminophen 500 mg tablet 500 mg PO Q6H PRN mild pain 04/05/23 04/16/23 baclofen 10 mg tablet 10 mg PO TID 04/05/23 04/16/23 Previous Rx's Medication Instructions Recorded prednisone 20 mg tablet 20 mg PO BID #60 tabs 10/25/22 amoxicillin 875 mg-potassium 875 mg PO Q12H #16 tabs 04/11/23 clavulanate 125 mg tablet levofloxacin 750 mg tablet 750 mg PO DAILY 6 days #6 tabs 05/28/23 ciprofloxacin HCl 500 mg tablet 500 mg PO BID #14 tabs 08/05/23 Allergies Allergy/AdvReac Type Severity Reaction Status Date / Time No Known Allergies Allergy Verified 08/05/23 15:43 [No Known Allergies*] Review of Systems 2 Review of Systems: Yes all other systems are reviewed and are negative [facility] Past Medical History Attestation statement: The following information was validated with the patient. 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 Microcytic anemia Multiple sclerosis Headache Surgical History H/O hernia repair Family History Family History Other No family history of coronary artery disease Social History Social History Household Members: Family Housing: Apartment 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 have visiting nurse or other home services: Yes (Visiting nurse and occupational therapist) Alcohol intake: never Patient Tobacco Use Status: Current everyday Tobacco user Tobacco use type: Cigarette Cigarettes Per Day: 0.25 Smoked in Last 30 Days: No Use of substances other than those prescribed or required for medical reasons: No Substance Use Type: Marijuana Advance Directives: Yes Advance Directives on File: Yes Advance Directives Date on File: 08/21/22 service: No Current occupational status: disabled Physical Exam 2 Vital Signs: Vital Signs: Last Vital Signs Temp 97.2 F 08/05/23 17:38 Pulse 68 08/05/23 21:02 Resp 18 08/05/23 21:02 BP 106/78 08/05/23 21:02 Pulse Ox 96 08/05/23 21:02 O2 Del Method Room Air 08/05/23 21:02 BMI result Body Mass Index 24.8 Appearance: Alert.?Oriented to person, place and time. No acute distress.?Normal affect. Eyes: Pupils equal, round and reactive to light.? ENT: Pharynx normal.?? Neck: Normal inspection.? Neck supple.?? CVS: Heart sounds normal. Normal heart rate and rhythm.? Pulses normal.?? Respiratory: No respiratory distress.? Lung sounds clear to auscultation bilaterally?? Abdomen: Soft and non-tender. Normoactive bowel sounds. Genitourinary: Catheter insertion site free from signs of infection or obstruction, Bladder scan of 44 mL. ? Skin: Skin warm and dry.? Normal skin color.? ? Extremities: No lower extremity edema.? Neuro: Moves all extremities spontaneously. Sensation intact bilaterally. No focal neuro deficits. Course Reevaluation(s) Reevaluation #1: tolerating oral intake. Discharged home with ABX for UTI. reviewed worrisome signs and symptoms that would warrant reevaluation. All questions answered. Time: 20:00 Medical Decision Making Medical Decision Making [facility] Narrative: Patient is a 2-year-old male presenting to emergency department via EMS for concerns of intermittent catheter obstruction and suprapubic pain as per HPI. At the time my examination he is well-appearing, abdominal in genitourinary examination is benign. Vital signs are stable he is without fever tachycardia or any distress. He does not have any flank pain. Discussed with patient plan of care, will obtain CBC and BMP in addition to Burciaga catheter change with urinalysis. Differential Diagnosis Differential Diagnoses: The differential diagnosis associated with the presentation includes (Pyelonephritis, hydronephrosis, obstructive calculus, urinary tract infection, catheter obstruction) Lab Data [facility] Lab Attestation statement: I reviewed the patient's lab results. Leukocytosis with left shift. BMP overall unremarkable. U/A consistent with infection 08/05/23 16:48 08/05/23 16:48 Labs: Lab Results 08/05/23 08/05/23 Range/Units 16:48 18:07 WBC 13.9 H (4.8-10.8) X10*3/uL RBC 5.35 (4.60-5.80) X10*6/uL Hgb 14.3 (14.0-18.0) g/dl Hct 42.9 (42.0-52.0) % MCV 80.2 (80.0-98.0) fL MCH 26.7 L (27.0-33.0) pg MCHC 33.3 (31.0-36.0) g/dl RDW 14.4 (11.0-16.0) % Plt Count 241 (160-400) X10*3/uL MPV 12.1 (9.4-12.4) fL Immature Gran % (Auto) 0.6 H (0.0-0.4) % Neut % (Auto) 90.8 H (45-73) % Lymph % (Auto) 4.1 L (20-40) % [place] % (Auto) 4.3 (2-11) % Eos % (Auto) 0.1 (0-4) % Baso % (Auto) 0.1 (0-2) % Lymph # (Auto) 0.6 L (1.2-4.9) X10*3/uL [place] # (Auto) 0.6 (0.1-1.2) X10*3/uL Eos # (Auto) 0.0 (0.0-0.4) X10*3/uL Baso # (Auto) 0.0 (0.0-0.2) X10*3/uL Abs Immat Gran (auto) 0.08 H (0.00-0.03) X10*3/uL Absolute Neuts (auto) 12.7 H (2.0-8.3) x10*3/uL Absolute Nucleated RBC 0.000 (0.0-0.012) X10*3/uL Nucleated RBC % (auto) 0.0 (0.0-0.2) /100WBC Smear Tech's Comments VERIFIED Sodium 142 (135-145) mmol/L Potassium 3.4 D (3.3-5.1) mmol/L Chloride 101 (96-108) mmol/L Carbon Dioxide 30 H (22-29) mmol/L Anion Gap 14 (12-20) BUN 10 (9-16) mg/dL Creatinine 0.59 (0.5-1.4) mg/dL Estim Creat Clear Calc 169.7 Estimated GFR > 60 Random Glucose 117 H (60-115) mg/dL Calcium 9.7 (8.4-10.2) mg/dL Total Bilirubin 0.3 (0.0-1.0) mg/dL AST 17 (5-37) U/L ALT 23 (0-40) U/L Alkaline Phosphatase 41 (39-117) U/L Total Protein 7.7 (6.5-8.0) g/dL Albumin 4.2 (3.5-5.0) g/dL Urine Color Yellow Urine Appearance Turbid Urine pH 7.5 (5.0-9.0) Ur Specific [place] 1.010 (1.005-1.025) Urine Protein Negative (Neg-Trace) mg/dL Urine Glucose (UA) Negative (Negative) mg/dL Urine Ketones Negative (Negative) mg/dL Urine Blood Moderate (2+) H (Negative) Urine Nitrite Negative (Negative) Ur Leukocyte Esterase Large (3+) H (Negative) Urine RBC >20 H (0-2) /HPF Urine WBC >50 H (0-5) /HPF Ur Squamous Epith Cells 3-5 (0-2) /HPF Urine Bacteria 1+ (None Seen) Hyaline Casts 3-5 (0-2) /LPF Independent Historian Clinical information obtained from an independent historian. History obtained from or confirmed by: EMS External Record Review External record reviewed: Outpatient record Tests considered The following testing was considered but not selected: Considered CT imaging of the abdomen and pelvis given reports of pain, at the time examination is pain free, abdominal examination is benign, catheter output has remained normal, imaging was deferred Prescription Management I considered prescription management with: Antibiotic Chronic Conditions Patient?s care impacted by: Other (chronic indwelling burciaga catheter) Discharge Plan Discharge Clinical Impression: Acute UTI Patient Disposition: Home, Self-Care Instructions: Catheter-associated Urinary Tract Infection (ED) Additional Instructions: As discussed, you have an infection in your urine today, a prescription for antibiotic was sent to your pharmacy please complete this entire course. Your catheter today was changed and was draining normally upon your discharge. You were without pain which was very reassuring. Please contact your urologist to arrange for a follow-up visit. You may return back to emergency department any new or worsening symptoms or concerns. Donna se mencion?, hoy tiene guera infecci?n en la orina, se envi? guera receta de antibi?bhaskar a coker farmacia. Complete deborah curso completo. Le cambiaron el cat?ter de hoy y drenaba normalmente cuando le dieron el cuca. No ten?as dolor, lo cual fue muy tranquilizador. Comun?quese con coker ur?logo para programar guera visita de seguimiento. Puede regresar al departamento de emergencias si tiene s?ntomas o inquietudes nuevos o que empeoran. Prescriptions: New ciprofloxacin HCl 500 mg tablet 500 mg PO BID Qty: 14 0RF No Action cholecalciferol (vitamin D3) 50 mcg (2,000 unit) capsule 1 cap PO DAILY multivitamin Tablet 1 tab PO DAILY omega 7-qbw-avd-fish oil 300 mg (120 mg- 180mg)-1,000 mg capsule 1 cap PO DAILY prednisone 20 mg tablet 20 mg PO BID Qty: 60 0RF acetaminophen 500 mg tablet 500 mg PO Q6H PRN (Reason: mild pain) baclofen 10 mg tablet 10 mg PO TID amoxicillin-pot clavulanate 875-125 mg Tablet 875 mg PO Q12H Qty: 16 0RF levofloxacin 750 mg tablet 750 mg PO DAILY 6 Days Qty: 6 0RF Interventions: ED Discharge Assessment Last Done: 08/05/23 21:04 Discharge Date/Time: 08/05/23 21:04 Print Language: Bulgarian
[2023-08-05 17:04] LABS: Basophils Percent Auto 0.1 % (0-2); Eosinophils Percent Auto 0.1 % (0-4); Hematocrit 42.9 % (42.0-52.0); Hemoglobin 14.3 g/dl (14.0-18.0); Imm Gran Abs Auto 0.08 X10*3/uL (0.00-0.03); Imm Gran Pct Auto 0.6 % (0.0-0.4); Lymphocytes Absolute Auto 0.6 X10*3/uL (1.2-4.9); Lymphocytes Percent Auto 4.1 % (20-40); MANUAL DIFF FLAG SCAN; Mean Corpuscular HGB Conc 33.3 g/dl (31.0-36.0); Mean Corpuscular Hemoglobin 26.7 pg (27.0-33.0); Mean Corpuscular Volume 80.2 fL (80.0-98.0); Mean Platelet Volume 12.1 fL (9.4-12.4); Monocytes Absolute Auto 0.6 X10*3/uL (0.1-1.2); Monocytes Percent Auto 4.3 % (2-11); Neutrophils Absolute Auto 12.7 x10*3/uL (2.0-8.3); Neutrophils Percent Auto 90.8 % (45-73); Platelet Count 241 X10*3/uL (160-400); Red Blood Count 5.35 X10*6/uL (4.60-5.80); Red Cell Distribution Width 14.4 % (11.0-16.0); SCAN SMEAR FLAG 1; White Blood Count 13.9 X10*3/uL (4.8-10.8)
[2023-08-05 17:21] LABS: Alanine Aminotransferase 23 U/L (0-40); Albumin Level 4.2 g/dL (3.5-5.0); Alkaline Phosphatase 41 U/L (39-117); Anion Gap 14 (12-20); Aspartate Amino Transferase 17 U/L (5-37); Bilirubin Total 0.3 mg/dL (0.0-1.0); Blood Urea Nitrogen 10 mg/dL (9-16); Calcium 9.7 mg/dL (8.4-10.2); Carbon Dioxide 30 mmol/L (22-29); Chloride 101 mmol/L (96-108); Creatinine Clr Calc Pharmacy 169.7; Estimated Glomerular Filt Rate > 60; Glucose Random 117 mg/dL (60-115); Potassium 3.4 mmol/L (3.3-5.1); Sodium 142 mmol/L (135-145); Total Protein 7.7 g/dL (6.5-8.0)
[2023-08-05 17:26] LABS: SLIDE REVIEW VERIFIED
[2023-08-05 17:38] VITALS: BP 125/83; PULSE 73; RESP 15; TEMP 36.2; O2SAT 96
[2023-08-05 18:21] LABS: Appearance Urine Turbid; Color Urine Yellow; Glucose Urine UA Negative (Negative); Leukocyte Esterase Urine Large (3+) (Negative); Nitrite Urine Negative (Negative); PH 7.5 (5.0-9.0); UMIC TRIGGER UACC YES; Urine Blood Moderate (2+) (Negative); Urine Ketones Negative (Negative); Urine Protein Negative (Neg-Trace)
[2023-08-05 18:23] LABS: Bacteria Urine 1+ (None Seen); RBC Urine >20 /HPF (0-2); UACC Culture Trigger YES; WBC Urine >50 /HPF (0-5)
--- NOTE | 2023-08-05 19:00 | PC.NURSE ---
changed burciaga catheter, given new leg bag. yellow urine with some mild intermittent sediment (white). tolerated well. no trauma on insertion noted/reported.
[2023-08-05 21:02] VITALS: BP 106/78; PULSE 68; RESP 18; O2SAT 96
== END 2023-08-05 21:04 | disposition home or self-care (01) ==
PROVIDERS: Nurse Practitioner Family; Emergency Provider Internal Medicine; PCP Internal Medicine Geriatric Medicine
DX: N39.0 Urinary tract infection, site not specified (principal); T83.098A Other mechanical complication of other urinary catheter, initial encounter; Y73.8 Miscellaneous gastroenterology and urology devices associated with adverse incidents, not elsewhere classified; Y92.9 Unspecified place or not applicable; R33.9 Retention of urine, unspecified; G35 Multiple sclerosis; F17.210 Nicotine dependence, cigarettes, uncomplicated
CPT/HCPCS: 36415; 51702; 51798; 80053; 81001; 85025; 87086; 99283; 99285

== ENCOUNTER 2023-08-21 14:10 | Emergency (ER) | payer OTHER, SELFPAY ==
[2023-08-21 14:59] VITALS: BMI 24.8
--- NOTE | 2023-08-21 15:04 | ED_ITS ---
HPI - General Adult General Chief complaint: General Medical Stated complaint: VERBAL ALT W/FAMILY,NEED AYAD ALVARADOAL PER EMS Time Seen by Provider: 08/21/23 14:53 Source: patient Mode of arrival: EMS Limitations: no limitations History of Present Illness HPI narrative: patient comes to the emergency room via EMS from home. Patient states that earlier today, patient was talking to his visiting nurse that he feels very sad because his brother few weeks ago. Patient states that he is not suicidal or homicidal. However, patient states that he is still mourning the loss of his brother and when he was talking to the VNA nurse, she decided to send him to the emergency room because he was crying. Patient states that he is not suicidal or homicidal. Patient states that he takes his medications as pre scribed except the anxiety/ depression medication which he declined today. Patient states that he is willing to take all of his medications except anxiety and depression Meds, patient states that he is going through normal mourning since the of his brother was recent, and does not believe that tablet will help him feel any better. Related Data Home Medications Medication Instructions Recorded Confirmed cholecalciferol (vitamin D3) 50 1 cap PO DAILY 09/18/21 04/16/23 mcg (2,000 unit) capsule multivitamin 1 tab PO DAILY 08/20/22 04/16/23 omega-3 300 mg-dha 120 mg-epa 180 1 cap PO DAILY 08/20/22 04/16/23 mg-fish oil 1,000 mg capsule acetaminophen 500 mg tablet 500 mg PO Q6H PRN mild pain 04/05/23 04/16/23 baclofen 10 mg tablet 10 mg PO TID 04/05/23 04/16/23 Previous Rx's Medication Instructions Recorded prednisone 20 mg tablet 20 mg PO BID #60 tabs 10/25/22 amoxicillin 875 mg-potassium 875 mg PO Q12H #16 tabs 04/11/23 clavulanate 125 mg tablet levofloxacin 750 mg tablet 750 mg PO DAILY 6 days #6 tabs 05/28/23 ciprofloxacin HCl 500 mg tablet 500 mg PO BID #14 tabs 08/05/23 Allergies Allergy/AdvReac Type Severity Reaction Status Date / Time No Known Allergies Allergy Verified 08/05/23 15:43 [No Known Allergies*] Review of Systems Review of Systems: Constitutional : No Weight loss, No Fever, No Chills, No Night Sweats, No Fatigue, No Malaise ENT/Mouth : No Hearing loss, No Ear Pain, No Nasal Congestion, No Sinus Pain, No Hoarseness, No sore throat, No Rhinorrhea, No Swallowing Difficulty Eyes: No Eye Pain, No Swelling, No Redness, No Foreign Body, No Discharge, No Vision Changes Cardiovascular : No Chest Pain, No SOB, No Dyspnea on Exertion, No Orthopnea, No Edema, No Palpitations Respiratory : No Cough, No Sputum, No Wheezing, No Smoke Exposure, No Dyspnea Gastrointestinal : No Nausea, No Vomiting, No Diarrhea, No Constipation, No abdominal Pain, No Hematochezia, No Melena Genitourinary : no irregular bleeding, No Dysuria, No Urinary Frequency, No Hematuria, No Urinary Incontinence, No Urgency, No Flank Pain, No Urinary Flow Changes, No Hesitancy Musculoskeletal : No joint pain, No Myalgias, No Joint Swelling Skin : No Skin Lesions, No rash Neuro : No Weakness, No Numbness, No Paresthesias, No Loss of Consciousness, No Dizziness, No Headache Psych : No Anxiety/Panic, No Depression, No SI/HI/AH/VH, No Social Issues, mourning that of brother Heme/Lymph: No Bruising, No Bleeding,No Lymphadenopathy Endocrine : No Polyuria, No Polydipsia, No Temperature Intolerance [facility] Past Medical History Medical History 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 Microcytic anemia Multiple sclerosis Headache Surgical History H/O hernia repair Family History Family History Other No family history of coronary artery disease Social History Social History Household Members: Family Housing: Apartment 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 have visiting nurse or other home services: Yes (Visiting nurse and occupational therapist) Alcohol intake: never Patient Tobacco Use Status: Current everyday Tobacco user Tobacco use type: Cigarette Cigarettes Per Day: 0.25 Substance Use Type: Marijuana Advance Directives Date on File: 08/21/22 service: No Current occupational status: disabled Physical Exam ED Vital Signs: BMI result Body Mass Index 24.8 Const Other: Appearance: Alert. Oriented X3. No acute distress. Eyes: Pupils equal, round and reactive to light. ENT: Pharynx normal. Neck: Normal inspection. Neck supple. No lymph nodes noted. No crepitus CVS: Normal heart rate and rhythm. Pulses normal. Normal S1 and S2 Respiratory: No respiratory distress. Breath sounds normal. No Wheezing. No rales Abdomen: Soft and nontender. No rigidity. No distention. Skin: Skin warm and dry. Normal skin color. Normal skin turgor. Extremities: No lower extremity edema. No Lacerations. No Rash Neuro: Oriented X 3. No motor deficit. No sensory deficit. Moving all extremities. No slurred speech. CN 2 through 12 grossly intact Psych: calm, cooperative, normal affect Medical Decision Making Medical Decision Making MDM Narrative: - patient is not suicidal or homicidal, - patient agreeable to take all of his medications except anxiety and depression, as mentioned above, patient is going through mourning the recent of his Brother. - Patient refusing any labs. states that he feels well. Differential Diagnosis Differential Diagnoses: The differential diagnosis associated with the presentation includes ( Anxiety, depression, normal mourning) Discharge Plan Discharge Clinical Impression: Mourning Patient Disposition: Home, Self-Care Instructions: Anxiety (ED), Depression (ED) Additional Instructions: Please follow-up with your primary care physician tomorrow. If you have any worsening or new symptoms, please return to the emergency room or call 911 Prescriptions: No Action cholecalciferol (vitamin D3) 50 mcg (2,000 unit) capsule 1 cap PO DAILY multivitamin Tablet 1 tab PO DAILY omega 0-xaj-iit-fish oil 300 mg (120 mg- 180mg)-1,000 mg capsule 1 cap PO DAILY prednisone 20 mg tablet 20 mg PO BID Qty: 60 0RF acetaminophen 500 mg tablet 500 mg PO Q6H PRN (Reason: mild pain) baclofen 10 mg tablet 10 mg PO TID amoxicillin-pot clavulanate 875-125 mg Tablet 875 mg PO Q12H Qty: 16 0RF levofloxacin 750 mg tablet 750 mg PO DAILY 6 Days Qty: 6 0RF ciprofloxacin HCl 500 mg tablet 500 mg PO BID Qty: 14 0RF
[2023-08-21 16:20] VITALS: BP 125/91; PULSE 96; RESP 16; TEMP 36.7; O2SAT 98
== END 2023-08-21 18:32 | disposition home or self-care (01) ==
PROVIDERS: Emergency Provider Emergency Medicine; PCP Internal Medicine Geriatric Medicine
DX: F43.21 Adjustment disorder with depressed mood (principal); F17.210 Nicotine dependence, cigarettes, uncomplicated; Z72.89 Other problems related to lifestyle; Z63.4 Disappearance and death of family member
CPT/HCPCS: 99283; 99284

== ENCOUNTER 2023-10-06 23:07 | Emergency (ER) | payer OTHER, SELFPAY ==
[2023-10-06 23:17] VITALS: BP 119/80; BP 150/110; PULSE 65; RESP 18; TEMP 36.6; O2SAT 100; O2SAT 99; BMI 25.8
[2023-10-06 23:51] VITALS: BP 118/80; PULSE 89; RESP 16; TEMP 36.4; O2SAT 97
--- NOTE | 2023-10-07 00:08 | ED.MALEGU ---
HPI - Male Genitourinary General Chief complaint: Urogenital-Male Stated complaint: MARTIN PROBLEM Time Seen by Provider: 10/06/23 23:52 Source: patient, RN notes reviewed and old records reviewed Mode of arrival: EMS Limitations: no limitations History of Present Illness HPI Narrative: 38-year-old male presents for evaluation of Martin catheter not draining. Patient has a chronic Martin catheter related to severe multiple sclerosis he reports is due to be changed tomorrow however he did not notice any drainage from the catheter all day today he states that there was about 300 cc this morning and his overnight bag the bag was changed to his leg bag and there was no drainage all day he reports mild lower abdominal discomfort Related Data Home Medications Medication Instructions Recorded Confirmed cholecalciferol (vitamin D3) 50 1 cap PO DAILY 09/18/21 04/16/23 mcg (2,000 unit) capsule multivitamin 1 tab PO DAILY 08/20/22 04/16/23 omega-3 300 mg-dha 120 mg-epa 180 1 cap PO DAILY 08/20/22 04/16/23 mg-fish oil 1,000 mg capsule acetaminophen 500 mg tablet 500 mg PO Q6H PRN mild pain 04/05/23 04/16/23 baclofen 10 mg tablet 10 mg PO TID 04/05/23 04/16/23 Previous Rx's Medication Instructions Recorded prednisone 20 mg tablet 20 mg PO BID #60 tabs 10/25/22 amoxicillin 875 mg-potassium 875 mg PO Q12H #16 tabs 04/11/23 clavulanate 125 mg tablet levofloxacin 750 mg tablet 750 mg PO DAILY 6 days #6 tabs 05/28/23 ciprofloxacin HCl 500 mg tablet 500 mg PO BID #14 tabs 08/05/23 cefuroxime axetil 250 mg tablet 250 mg PO Q12H #13 tabs 10/07/23 Allergies Allergy/AdvReac Type Severity Reaction Status Date / Time No Known Allergies Allergy Verified 08/05/23 15:43 [No Known Allergies*] Review of Systems Constitutional: Constitutional: Denies chills and Denies fever(s) Gastrointestinal: Gastrointestinal: Reports abdominal pain Genitourinary: Genitourinary: Reports oliguria and Reports other ( decreased urination) [facility] Past Medical History Medical History 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 Microcytic anemia Multiple sclerosis Headache Surgical History H/O hernia repair Family History Family History Other No family history of coronary artery disease Social History Social History Household Members: Family Housing: Apartment 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 have visiting nurse or other home services: Yes (Visiting nurse and occupational therapist) Unable to assess alcohol history related to: Unknown Alcohol intake: never Patient Tobacco Use Status: Current everyday Tobacco user Tobacco use type: Cigarette Cigarettes Per Day: 0.25 Smoked in Last 30 Days: No Use of substances other than those prescribed or required for medical reasons: Yes Substance Use Type: Marijuana Substance Use Frequency: Occasionally Last Used Substance: Hours (ago) Advance Directives: Yes Advance Directives on File: Yes Advance Directives Date on File: 08/21/22 service: No Current occupational status: disabled Physical Exam Vital Signs: Vital Signs: Last Vital Signs Temp 97.5 F 10/06/23 23:51 Pulse 89 10/06/23 23:51 Resp 16 10/06/23 23:51 BP 118/80 10/06/23 23:51 Pulse Ox 97 10/06/23 23:51 O2 Del Method Room Air 10/06/23 23:51 BMI result Body Mass Index 25.8 Course Reevaluation(s) Reevaluation #1: patient's workup significant for a UTI. His new Martin was placed without difficulty and immediate drainage of clear yellow urine after a blood clot was removed. Time: 00:51 Medical Decision Making Medical Decision Making MDM Narrative: 38-year-old male presents for evaluation no drainage from his Martin catheter. The catheter appears in place. A bladder scan shows almost 500 cc of urine. Therefore a new catheter will be inserted Differential Diagnosis Differential Diagnoses: The differential diagnosis associated with the presentation includes urinary retention Neurogenic bladder UTI hematuria Lab Data Labs: Lab Results 10/07/23 Range/Units 00:30 Urine Color Dark Yellow Urine Appearance Cloudy Urine pH 6.0 (5.0-9.0) Ur Specific [place] 1.020 (1.005-1.025) Urine Protein Trace (Neg-Trace) mg/dL Urine Glucose (UA) Negative (Negative) mg/dL Urine Ketones Trace (Negative) mg/dL Urine Blood Large (3+) H (Negative) Urine Nitrite Negative (Negative) Ur Leukocyte Esterase Large (3+) H (Negative) Urine RBC >20 H (0-2) /HPF Urine WBC >50 H (0-5) /HPF Ur Squamous Epith Cells 0-2 (0-2) /HPF Urine Bacteria 4+ (None Seen) Hyaline Casts 0-2 (0-2) /LPF Discharge Plan Discharge Clinical Impression: Acute on chronic urinary retention, Acute UTI Patient Disposition: Home, Self-Care Instructions: Catheter-associated Urinary Tract Infection (ED) Additional Instructions: Take cefuroxime twice daily for the next 7 days follow-up with your urologist return for new or worsening symptoms Prescriptions: New cefuroxime axetil 250 mg tablet 250 mg PO Q12H Qty: 13 0RF No Action cholecalciferol (vitamin D3) 50 mcg (2,000 unit) capsule 1 cap PO DAILY multivitamin Tablet 1 tab PO DAILY omega 0-gvr-zut-fish oil 300 mg (120 mg- 180mg)-1,000 mg capsule 1 cap PO DAILY prednisone 20 mg tablet 20 mg PO BID Qty: 60 0RF acetaminophen 500 mg tablet 500 mg PO Q6H PRN (Reason: mild pain) baclofen 10 mg tablet 10 mg PO TID amoxicillin-pot clavulanate 875-125 mg Tablet 875 mg PO Q12H Qty: 16 0RF levofloxacin 750 mg tablet 750 mg PO DAILY 6 Days Qty: 6 0RF ciprofloxacin HCl 500 mg tablet 500 mg PO BID Qty: 14 0RF
--- NOTE | 2023-10-07 00:14 | MHC.EDTECH ---
assisted nurse with catheter change, calcification noted to end of cath.
[2023-10-07 00:38] LABS: Appearance Urine Cloudy; Color Urine Dark Yellow; Glucose Urine UA Negative (Negative); Leukocyte Esterase Urine Large (3+) (Negative); Nitrite Urine Negative (Negative); UMIC TRIGGER UACC YES; Urine Blood Large (3+) (Negative); Urine Ketones Trace mg/dL (Negative); Urine Protein Trace mg/dL (Neg-Trace)
[2023-10-07 00:41] LABS: Bacteria Urine 4+ (None Seen); Hyaline Casts Urine 0-2 /LPF (0-2); RBC Urine >20 /HPF (0-2); Squamous Epithelial Cell Urine 0-2 /HPF (0-2); UACC Culture Trigger YES; WBC Urine >50 /HPF (0-5)
--- NOTE | 2023-10-07 00:42 | PC.NURSE ---
burciaga cath removed, sediment noted at tip. new burciaga in place. pt tolerated well. yellow urine is draining. UA sent
[2023-10-07] MEDS: cefuroxime axetiL 250 MG TABLET PO (01:00)
--- NOTE | 2023-10-07 01:39 | PC.NURSE ---
awaiting EMS for transport home. pt aware of plan of care
[2023-10-07 01:56] VITALS: BP 122/85; PULSE 70; RESP 18; TEMP 36.6; O2SAT 100
== END 2023-10-07 02:14 | disposition home or self-care (01) ==
PROVIDERS: Physician Assistant; Emergency Provider Internal Medicine; PCP Internal Medicine Geriatric Medicine
DX: N39.0 Urinary tract infection, site not specified (principal); R33.9 Retention of urine, unspecified; G35 Multiple sclerosis; Z96.0 Presence of urogenital implants
CPT/HCPCS: 51702; 81001; 87086; 99283; 99284

== ENCOUNTER 2023-10-20 12:39 | Inpatient (IN) | payer OTHER, SELFPAY ==
--- NOTE | ~2023-10-20 | CT_ITS ---
EXAMINATION: CT ABDOMEN AND PELVIS WITHOUT CONTRAST CLINICAL INFORMATION: Left lower quadrant pain. COMPARISON: 11/30/2015 TECHNIQUE: Multidetector volumetric imaging was performed from the superior aspect of the liver through the pubic symphysis. Sagittal and coronal reformatted images were obtained on the technologist's workstation. This CT examination was performed using dose optimization techniques as appropriate, variously including the following: *Automated exposure control *Adjustment of mA and/or kV according to patient size (this includes techniques or standardized protocols for targeted exams where dose is matched to indication/reason for exam; i.e. extremities or head) *Use of iterative reconstruction technique DLP: 682 mGy-cm FINDINGS: LUNG BASES: The visualized lung bases are unremarkable. LIVER, GALLBLADDER, AND BILIARY TREE: The noncontrast liver is normal in size and contour. No biliary ductal dilatation is present. The gallbladder is unremarkable with no evidence of radiopaque gallstones, gallbladder wall thickening, or obvious pericholecystic inflammatory changes. PANCREAS: Unremarkable. SPLEEN: Unremarkable. ADRENAL GLANDS: Unremarkable. KIDNEYS AND URETERS: The kidneys are symmetric in size. No renal calculus. No hydronephrosis or perinephric stranding. BLADDER: The urinary bladder is incompletely decompressed despite Villatoro catheter placement. There is layering hyperdensity within the urinary bladder. There is nondependent gas in the urinary bladder possibly related to instrumentation. Circumferential bladder wall thickening. GASTROINTESTINAL TRACT: Small and large bowel loops are of normal caliber. No small bowel obstruction. Moderate fecal retention in the colon. Appendix is within normal limits. ABDOMINAL WALL: No significant hernia is appreciated. LYMPH NODES: No bulky lymphadenopathy. VASCULAR: Normal caliber abdominal aorta. PELVIC VISCERA: Left scrotal skin thickening/edema. The left testis appears edematous. OSSEOUS STRUCTURES: Sclerosis of the femoral heads. CT/CT abdomen pelvis wo IV con IMPRESSION: Circumferential bladder wall thickening with layering hyperdensities possibly representing calculi. Lack of complete bladder decompression despite Villatoro catheter placement. Edematous left testis with left scrotal skin thickening and edema. Please see results of scrotal ultrasound. Avascular necrosis of the femoral heads is suspected.
[2023-10-20 12:55] VITALS: BP 128/82; PULSE 107; O2SAT 94
--- NOTE | 2023-10-20 13:02 | ED.ABDPAIN ---
HPI - Abdominal Pain General Chief Complaint: Abdominal Pain Stated Complaint: LLQ PAIN X 1 WEEK Time Seen by Provider: 10/20/23 12:56 Source: patient Mode of arrival: ambulatory Limitations: no limitations History of Present Illness HPI narrative: Patient presented to emergency department complaining of left lower quadrant abdominal pain, the patient had history of MS he denies any fever chills vomiting and diarrhea MD elicited complaint: abdominal pain Pertinent past history: none Onset (ago): week(s) (1) Pain Consistency: constant Location: LLQ Severity: mild Radiation: LLQ Migration to: no migration Exacerbating factors: nothing Associated symptoms: denies other symptoms Related Data Home Medications Medication Instructions Recorded Confirmed cholecalciferol (vitamin D3) 50 1 cap PO DAILY 09/18/21 04/16/23 mcg (2,000 unit) capsule multivitamin 1 tab PO DAILY 08/20/22 04/16/23 omega-3 300 mg-dha 120 mg-epa 180 1 cap PO DAILY 08/20/22 04/16/23 mg-fish oil 1,000 mg capsule acetaminophen 500 mg tablet 500 mg PO Q6H PRN mild pain 04/05/23 04/16/23 baclofen 10 mg tablet 10 mg PO TID 04/05/23 04/16/23 Previous Rx's Medication Instructions Recorded prednisone 20 mg tablet 20 mg PO BID #60 tabs 10/25/22 amoxicillin 875 mg-potassium 875 mg PO Q12H #16 tabs 04/11/23 clavulanate 125 mg tablet levofloxacin 750 mg tablet 750 mg PO DAILY 6 days #6 tabs 05/28/23 ciprofloxacin HCl 500 mg tablet 500 mg PO BID #14 tabs 08/05/23 cefuroxime axetil 250 mg tablet 250 mg PO Q12H #13 tabs 10/07/23 Allergies Allergy/AdvReac Type Severity Reaction Status Date / Time No Known Allergies Allergy Verified 08/05/23 15:43 [No Known Allergies*] Review of Systems Constitutional: Reports no additional constitutional complaints Reports system reviewed and no additional complaints, except as documented Respiratory: Reports no additional respiratory complaints PMFSH Past Medical History Attestation statement: The following information was validated with the patient. 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 Microcytic anemia Multiple sclerosis Headache Surgical History H/O hernia repair Family History Family History Other No family history of coronary artery disease Social History Social History Household Members: Family Housing: Apartment 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 have visiting nurse or other home services: Yes (Visiting nurse and occupational therapist) Unable to assess alcohol history related to: Unknown Alcohol intake: never Patient Tobacco Use Status: Current everyday Tobacco user Tobacco use type: Cigarette Cigarettes Per Day: 0.25 Smoked in Last 30 Days: No Use of substances other than those prescribed or required for medical reasons: Yes Substance Use Type: Marijuana Advance Directives: Yes Advance Directives on File: Yes Advance Directives Date on File: 08/21/22 service: No Current occupational status: disabled Physical Exam ED Vital Signs: Vital Signs - 24 hr 10/20/23 13:08 Temperature 97.7 F Pulse Rate 107 H Respiratory Rate 18 Blood Pressure 133/87 Pulse Oximetry 98 Oxygen Delivery Method Room Air BMI result Body Mass Index 26.4 Const General: cooperative, comfortable, no acute distress, alert and awake Nutritional Appearance: average body habitus HENMT Head: Yes normal to inspection Ears: hearing grossly normal bilaterally Face and sinus: Yes normal facial exam Neck Neck: Yes normal visual inspection and Yes full ROM Chest Chest palpation & inspection: normal inspection of the chest Resp Effort & Inspection: normal respiratory effort Auscultation: clear to auscultation bilaterally Cardio Jugular venous distension: no JVD Rate: regular rate Rhythm: regular rhythm GI Inspection: Yes normal to inspection Palpation (GI): Firmness to palpation present (GI) in the LLQ Auscultation: normal bowel sounds Skin General skin exam: no rashes or lesions noted and elasticity normal Course Reevaluation(s) Reevaluation #1: spoke with urologist dr Cao Time: 16:20 Medical Decision Making Medical Decision Making MDM Narrative: Patient presented with left lower quadrant pain left scrotal pain workup consistent with UTI and orchitis elevated white count present will be or IV antibiotics Differential Diagnosis Differential Diagnoses: The differential diagnosis associated with the presentation includes UTI/colitis/diverticulitis Admission/Observation Consideration of admission/observation: Escalation of care including admission/observation considered Consult Healthcare Provider Management of the patient was discussed with: Hemming [employer] Tacking Machine Operator Urologist Dr Cao Lab Data [facility] Lab Attestation statement: I reviewed the patient's lab results. 10/20/23 13:29 10/20/23 13:29 Labs: Lab Results 10/20/23 10/20/23 Range/Units 13:29 15:34 WBC 16.9 H (4.8-10.8) X10*3/uL RBC 5.03 (4.60-5.80) X10*6/uL Hgb 13.2 L (14.0-18.0) g/dl Hct 40.0 L (42.0-52.0) % MCV 79.5 L (80.0-98.0) fL MCH 26.2 L (27.0-33.0) pg MCHC 33.0 (31.0-36.0) g/dl RDW 14.7 (11.0-16.0) % Plt Count 182 (160-400) X10*3/uL MPV 11.2 (9.4-12.4) fL Immature Gran % (Auto) 0.4 (0.0-0.4) % Neut % (Auto) 82.4 H (45-73) % Lymph % (Auto) 7.2 L (20-40) % Stevens % (Auto) 9.6 (2-11) % Eos % (Auto) 0.2 (0-4) % Baso % (Auto) 0.2 (0-2) % Lymph # (Auto) 1.2 (1.2-4.9) X10*3/uL [place] # (Auto) 1.6 H (0.1-1.2) X10*3/uL Eos # (Auto) 0.0 (0.0-0.4) X10*3/uL Baso # (Auto) 0.0 (0.0-0.2) X10*3/uL Abs Immat Gran (auto) 0.06 H (0.00-0.03) X10*3/uL Absolute Neuts (auto) 13.9 H (2.0-8.3) x10*3/uL Absolute Nucleated RBC 0.000 (0.0-0.012) X10*3/uL Nucleated RBC % (auto) 0.0 (0.0-0.2) /100WBC Smear Tech's Comments VERIFIED Sodium 139 (135-145) mmol/L Potassium 3.3 (3.3-5.1) mmol/L Chloride 97 (96-108) mmol/L Carbon Dioxide 28 (22-29) mmol/L Anion Gap 17 (12-20) BUN 10 (9-16) mg/dL Creatinine 0.69 (0.5-1.4) mg/dL Estim Creat Clear Calc 143.7 Estimated GFR > 60 Random Glucose 91 (60-115) mg/dL Calcium 9.8 (8.4-10.2) mg/dL Total Bilirubin 0.5 (0.0-1.0) mg/dL AST 21 (5-37) U/L ALT 23 (0-40) U/L Alkaline Phosphatase 49 (39-117) U/L Total Protein 7.8 (6.5-8.0) g/dL Albumin 3.7 (3.5-5.0) g/dL Urine Color Yellow Urine Appearance Turbid Urine pH 7.0 (5.0-9.0) Ur Specific [place] 1.015 (1.005-1.025) Urine Protein 100 (2+) H (Neg-Trace) mg/dL Urine Glucose (UA) Negative (Negative) mg/dL Urine Ketones Trace (Negative) mg/dL Urine Blood Large (3+) H (Negative) Urine Nitrite Positive H (Negative) Ur Leukocyte Esterase Large (3+) H (Negative) Urine RBC >20 H (0-2) /HPF Urine WBC >50 H (0-5) /HPF Ur Squamous Epith Cells 0-2 (0-2) /HPF Urine Bacteria 4+ (None Seen) Hyaline Casts 3-5 (0-2) /LPF Independent Interpretation I performed an independent interpretation of an: Ultrasound Interpretation: Orchitis Radiology Impression Discussion of test interpretation with radiology: I have reviewed the radiologist's reading. Prescription Management I considered prescription management with: Antibiotic Medications Administered Generic Name Dose Route Start Last Admin Trade Name Freq PRN Reason Stop Dose Admin Cefepime HCl 2 gm/ Sodium 50 mls @ 100 mls/hr 10/20/23 16:05 10/20/23 16:19 Chloride IV 10/20/23 16:34 100 mls/hr ONCE ONE Administration Discharge Plan Discharge Clinical Impression: Acute UTI, Acute orchitis Patient Disposition: Admitted As Inpatient
[2023-10-20 13:08] VITALS: BP 133/87; PULSE 107; RESP 18; TEMP 36.5; O2SAT 98; BMI 26.4
[2023-10-20 13:38] LABS: Basophils Percent Auto 0.2 % (0-2); Eosinophils Percent Auto 0.2 % (0-4); Hemoglobin 13.2 g/dl (14.0-18.0); Imm Gran Abs Auto 0.06 X10*3/uL (0.00-0.03); Imm Gran Pct Auto 0.4 % (0.0-0.4); Lymphocytes Absolute Auto 1.2 X10*3/uL (1.2-4.9); Lymphocytes Percent Auto 7.2 % (20-40); MANUAL DIFF FLAG SCAN; Mean Corpuscular Hemoglobin 26.2 pg (27.0-33.0); Mean Corpuscular Volume 79.5 fL (80.0-98.0); Mean Platelet Volume 11.2 fL (9.4-12.4); Monocytes Absolute Auto 1.6 X10*3/uL (0.1-1.2); Monocytes Percent Auto 9.6 % (2-11); Neutrophils Absolute Auto 13.9 x10*3/uL (2.0-8.3); Neutrophils Percent Auto 82.4 % (45-73); Platelet Count 182 X10*3/uL (160-400); Red Blood Count 5.03 X10*6/uL (4.60-5.80); Red Cell Distribution Width 14.7 % (11.0-16.0); SCAN SMEAR FLAG 1; White Blood Count 16.9 X10*3/uL (4.8-10.8)
[2023-10-20 13:50] LABS: Alanine Aminotransferase 23 U/L (0-40); Albumin Level 3.7 g/dL (3.5-5.0); Alkaline Phosphatase 49 U/L (39-117); Anion Gap 17 (12-20); Aspartate Amino Transferase 21 U/L (5-37); Bilirubin Total 0.5 mg/dL (0.0-1.0); Blood Urea Nitrogen 10 mg/dL (9-16); Calcium 9.8 mg/dL (8.4-10.2); Carbon Dioxide 28 mmol/L (22-29); Chloride 97 mmol/L (96-108); Creatinine Clr Calc Pharmacy 143.7; Estimated Glomerular Filt Rate > 60; Glucose Random 91 mg/dL (60-115); Potassium 3.3 mmol/L (3.3-5.1); Sodium 139 mmol/L (135-145); Total Protein 7.8 g/dL (6.5-8.0)
[2023-10-20 14:05] LABS: SLIDE REVIEW VERIFIED
[2023-10-20 16:00] VITALS: BP 135/82; PULSE 106; RESP 18; TEMP 36.6; O2SAT 98
[2023-10-20] MEDS: cefEPime HCl 2 GM in 0.9 % Sodium Chloride 50 ML IV (16:19)
--- NOTE | 2023-10-20 16:38 | PHA.MEDREC ---
Pharmacy Consult ? Medication Reconciliation Pharmacy has completed the medication reconciliation. Patient reproted medicaitons. Report he was told to only take baclofen once a day, patient receive a new prescription for baclofen 20 mg. He report they told him he can take it as needed as night to help him sleep with the prednisone. Patient reported no taking the sertraline. Tereza Escamilla, PharmD
--- NOTE | 2023-10-20 17:47 | PM.IMHP ---
History of Present Illness Date of Service: 10/20/23 Chief Complaint: Left lower quadrant abdominal pain/fever/ swollen left scrotum 38-year-old gentleman with past medical history significant for MS with chronic Villatoro catheter, bed bound, with history of recurrent urinary tract infections presented to [facility] due to symptoms of left lower quadrant abdominal pain of few days duration patient is a vague historian he noted swelling of left scrotum 1 week ago and developed pain 2-3 D days ago associated with fever, generalized weakness, he denies urinary symptoms of dysuria, urgency and frequency since his Villatoro catheter, in the emergency room patient was afebrile, tachycardic, normal blood pressure noted to have elevated WBC count 16.9, stable renal function, urinalysis positive for large blood, urine nitrate, leukocyte Estrace greater than 50 WBC and 4+ bacteria, scrotal ultrasound showed left epididymoorchitis, right epididymitis, CT scan of abdomen and pelvis showed bladder wall thickening with layering hyperdensities, possibly representing calculi, lack of complete bladder decompression, edematous left testis with left scrotal skin thickening, and edema, in ED patient receive IV cefepime and now being admitted to [facility] for sepsis due to UTI and left epididymoorchitis. Review of Systems Review of Systems: General no headache, no dizziness ,+ fever chills. CVS no chest pain, no palpitation. Respiratory no cough, no sob. 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 Microcytic anemia Multiple sclerosis Headache Family History Other No family history of coronary artery disease Surgical History H/O hernia repair Social History Household Members: Family Housing: Apartment 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 have visiting nurse or other home services: Yes (director of field service) Unable to assess alcohol history related to: Unknown Alcohol intake: never Patient Tobacco Use Status: Never used Tobacco Tobacco use type: Cigarette Cigarettes Per Day: 0.25 Smoked in Last 30 Days: No Use of substances other than those prescribed or required for medical reasons: Yes Substance Use Type: Marijuana Substance Use Frequency: Occasionally Last Used Substance: Days (ago) Currently Displaying Signs/Symptoms of Drug Intoxication Withdrawal: No Any prior treatment program specific to substance use: No Have you been hit, kicked, punched, or otherwise hurt by someone within the past year? If so, by whom?: No Do you feel safe in your current relationship?: No Current Relationship Is there a partner from a previous relationship who is making you feel unsafe now?: No Are you made to feel afraid or neglected: No Advance Directives: Yes Advance Directives on File: Yes Advance Directives Date on File: 08/21/22 Do you have thoughts of harming others: None Do you have a plan to hurt others: No Plan Nutrition Risks: No Nutritional Risk Poor oral hygiene: No service: No Current occupational status: disabled Meds Allergies Allergy/AdvReac Type Severity Reaction Status Date / Time No Known Allergies Allergy Verified 08/05/23 15:43 [No Known Allergies*] Active Medications: Current Medications Acetaminophen (Acetaminophen 325 Mg Tablet) 650 mg PO Q6H PRN PRN Reason: Pain, Mild (Pain Scale 1-3) Baclofen (Baclofen 20 Mg Tablet) 20 mg PO DAILY LALO Baclofen (Baclofen 10 Mg Tablet) 10 mg PO DAILY PRN PRN Reason: muscle spasm/insomnia Benzonatate (Benzonatate 100 Mg Capsule) 100 mg PO TID PRN PRN Reason: Cough Docusate Sodium (Docusate Sodium 100 Mg Capsule) 100 mg PO DAILY PRN PRN Reason: Constipation Enoxaparin Sodium (Enoxaparin Sodium 40 Mg/0.4 Ml Syringe) 40 mg SUBCUT Q24H LALO Cefepime HCl 2 gm/ Sodium (Chloride) 50 mls @ 100 mls/hr IV Q12H LALO Magnesium Hydroxide (Milk Of Magnesia 30 Ml Oral.Susp) 30 ml PO DAILY PRN PRN Reason: Constipation Melatonin (Melatonin 3 Mg Tablet) 6 mg PO BEDTIME PRN PRN Reason: Insomnia Multivitamins/Vitamin C (Multivitamin Tablet) 1 tab PO DAILY LALO Ondansetron HCl (Ondansetron Hcl 4 Mg/2 Ml Vial) 4 mg IVPUSH Q8H PRN PRN Reason: Nausea and Vomiting Sodium Chloride (0.9 % Sodium Chloride Flush 3 Ml Syringe) 3 ml IVFLUSH QSHIFT [facility] Tizanidine HCl (Tizanidine Hcl 4 Mg Tablet) 4 mg PO BID [facility] Vitamin D (Cholecalciferol (Vitamin D3) 25 Mcg Tablet) 50 mcg PO DAILY [facility] Home Medications Medication Instructions Recorded Confirmed Last Taken Type cholecalciferol (vitamin D3) 50 1 cap PO DAILY 09/18/21 10/20/23 10/20/22 History mcg (2,000 unit) capsule multivitamin 1 tab PO DAILY 08/20/22 10/20/23 10/19/22 History omega-3 300 mg-dha 120 mg-epa 180 1 cap PO DAILY 08/20/22 10/20/23 10/19/22 History mg-fish oil 1,000 mg capsule baclofen 10 mg tablet 10 mg PO DAILY PRN muscle 04/05/23 10/20/23 04/16/23 History spasm/insomnia baclofen 20 mg tablet 20 mg PO DAILY 10/20/23 10/20/23 10/19/22 History Physical Exam Vital Signs and Narrative: Vital Signs: Last Vital Signs Temp 97.9 F 10/20/23 16:00 Pulse 106 H 10/20/23 16:00 Resp 18 10/20/23 16:00 BP 135/82 10/20/23 16:00 Pulse Ox 98 10/20/23 16:00 O2 Del Method Room Air 10/20/23 16:00 BMI result Body Mass Index 26.4 Const: Other: Gen: Awake alert x3, in no acute distress HEENT: sclera anicteric, moist mucus membranes Neck: supple,no jvd. Lungs: clear to auscultation Heart: regular rate and rhythm, no murmurs Abd: soft, left lower quadrant tenderness to palpation, no guarding, no rigidity, non-distended, bowel sounds audible Ext: no edema Skin: warm/well-perfused Neuro: alert and oriented x3, mild spasticity Psych: appropriate affect Results Labs 10/20/23 13:29 10/20/23 13:29 Labs: Laboratory Results - last 24 hr 10/20/23 10/20/23 13:29 15:34 MCV 79.5 L MCH 26.2 L MCHC 33.0 RDW 14.7 Plt Count 182 MPV 11.2 Immature Gran % (Auto) 0.4 Neut % (Auto) 82.4 H Lymph % (Auto) 7.2 L [place] % (Auto) 9.6 Eos % (Auto) 0.2 Baso % (Auto) 0.2 Lymph # (Auto) 1.2 [place] # (Auto) 1.6 H Eos # (Auto) 0.0 Baso # (Auto) 0.0 Abs Immat Gran (auto) 0.06 H Absolute Neuts (auto) 13.9 H Absolute Nucleated RBC 0.000 Nucleated RBC % (auto) 0.0 Smear Tech's Comments VERIFIED Anion Gap 17 Estim Creat Clear Calc 143.7 Estimated GFR > 60 Random Glucose 91 Calcium 9.8 Total Bilirubin 0.5 AST 21 ALT 23 Alkaline Phosphatase 49 Total Protein 7.8 Albumin 3.7 Urine Color Yellow Urine Appearance Turbid Urine pH 7.0 Ur Specific [place] 1.015 Urine Protein 100 (2+) H Urine Glucose (UA) Negative Urine Ketones Trace Urine Blood Large (3+) H Urine Nitrite Positive H Ur Leukocyte Esterase Large (3+) H Urine RBC >20 H Urine WBC >50 H Ur Squamous Epith Cells 0-2 Urine Bacteria 4+ Hyaline Casts 3-5 Imaging Radiologist's Impressions: Impressions Scrotum Ultrasound 10/20/23 13:55 IMPRESSION: Left epididymoorchitis. Left hydrocele possibly on a reactive basis. Right epididymitis. Follow-up imaging after treatment should be considered. Abdomen/Pelvis CT 10/20/23 14:26 IMPRESSION: Circumferential bladder wall thickening with layering hyperdensities possibly representing calculi. Lack of complete bladder decompression despite Villatoro catheter placement. Edematous left testis with left scrotal skin thickening and edema. Please see results of scrotal ultrasound. Avascular necrosis of the femoral heads is suspected. Assessment and Plan (1) Acute orchitis: Status: Acute (2) Acute UTI: Status: Acute Plan 38-year-old gentleman with past medical history of multiple sclerosis with chronic indwelling Villatoro catheter, presented to [facility] with 1 week of left lower quadrant abdominal pain, left scrotal swelling discomfort, fever and generalized weakness diagnosed with sepsis due to UTI. Sepsis due to UTI/ left epididymoorchitis, right epididymitis: IV cefepime, follow urine and blood culture Urology consultation,folow cbc/bmp Supportive care Multiple sclerosis no acute flare being followed by Neurology as outpatient and recommended to taper prednisone to once daily. Complaining of spasm, on baclofen with no significant improvement will add Zanaflex twice daily Continue prednisone 10 mg daily. DVT prophylaxis with Lovenox Code status full code In my clinical judgment patient need 2 night inpatient hospitalization for management of sepsis with UTI requiring IV antibiotics and expert consultation Quality Stroke Does the patient have a stroke diagnosis?: No VTE Prior VTE?: No VTE Risk Level:: Medical - moderate - high VTE Device Contraindication: Treatment Not Indicated VTE Drug Contraindication: N/A - Med Ordered
[2023-10-20] MEDS: Enoxaparin Sodium 40 MG/0.4 ML SYRINGE SUBCUT (18:03)
[2023-10-20] MEDS: TiZANidine HCL 4 MG TABLET PO (21:31)
[2023-10-20 21:38] VITALS: BP 145/70; PULSE 104; RESP 16; TEMP 38.6; O2SAT 97
--- NOTE | 2023-10-20 21:40 | MHC.EDTECH ---
Patient just came to ed overflow from the main ed ,Patient was made comfortable ,vitals taken ,RN Penny is aware of Pt high temp ,Patient was offered fluids ,drank 360 ml cranberry juice with assistance ,Pt is comfortable watching television ,Call villar within Pt reach .
[2023-10-20] MEDS: Acetaminophen 325 MG TABLET 650 MG PO (21:43)
[2023-10-20 22:57] VITALS: TEMP 37.3
[2023-10-21 00:28] VITALS: BP 119/67; PULSE 74; RESP 16; TEMP 37.2; O2SAT 97
[2023-10-21] MEDS: 0.9 % Sodium Chloride Flush 3 ML SYRINGE IVFLUSH ×4 (00:33→20:58)
--- NOTE | 2023-10-21 00:45 | MHC.EDTECH ---
Patient awake resting in bed ,vitals taken .
[2023-10-21] MEDS: cefEPime HCl 2 GM in 0.9 % Sodium Chloride 50 ML IV ×2 (03:37→16:27)
[2023-10-21] MEDS: Baclofen 10 MG TABLET PO (04:15)
--- NOTE | 2023-10-21 04:31 | PC.NURSE ---
10/20: Assumed care of patient at 23:30. Pt seen in ED overflow, awaiting medsurg bed placement. Afebrile during this senior technical writer's care. A&Ox4. Pt denies chills, h/a, dizziness, chest pain, sob, and n/v. Hx MS (bedfast at baseline), UTIs, and has chronic burciaga catheter. Pt labs reviewed showing UTI; pt is on scheduled cefepime. Carmen-care provided and educated on. Po fluids encouraged and tolerating well. C/o spasms, medicated with prn baclofen, effectiveness pending. Assisted with repositioning in bed. Breathing is even and unlabored without distress on RA. Abdomen WNL. Bed alarm on and safety measures in place. Pt able to ring to make needs known. Report called at [id number] to S3 RN.
--- NOTE | 2023-10-21 05:07 | PC.NURSE ---
Patient transported from [facility] to [facility] in stable condition with all belongings and list at 05:10.
[2023-10-21 05:26] VITALS: BP 121/78; PULSE 100; RESP 18; TEMP 37.2; O2SAT 98
[2023-10-21 07:25] VITALS: BP 139/75; PULSE 117; RESP 18; TEMP 39.1; O2SAT 96
[2023-10-21] MEDS: Baclofen 20 MG TABLET PO (07:41)
[2023-10-21] MEDS: Cholecalciferol (Vitamin D3) 25 MCG TABLET 50 MCG PO (07:41)
[2023-10-21] MEDS: Omeprazole 20 MG CAPSULE.DR PO (07:43)
[2023-10-21] MEDS: Acetaminophen 325 MG TABLET 650 MG PO (07:43)
[2023-10-21] MEDS: Multivitamin TABLET 1 TAB PO (07:44)
[2023-10-21] MEDS: predniSONE 20 MG TABLET PO (07:44)
[2023-10-21] MEDS: TiZANidine HCL 4 MG TABLET PO ×2 (07:44→20:57)
[2023-10-21 09:12] VITALS: TEMP 37.6
[2023-10-21 09:18] LABS: Hematocrit 36.8 % (42.0-52.0); Hemoglobin 11.9 g/dl (14.0-18.0); Mean Corpuscular HGB Conc 32.3 g/dl (31.0-36.0); Mean Corpuscular Hemoglobin 25.9 pg (27.0-33.0); Mean Platelet Volume 11.5 fL (9.4-12.4); Platelet Count 175 X10*3/uL (160-400); Red Cell Distribution Width 14.5 % (11.0-16.0)
[2023-10-21 09:22] LABS: WBC ABN SCTR FOR CBC 1
[2023-10-21 09:30] LABS: Lactic Acid 1.5 mmol/L (0.5-2.0)
[2023-10-21 09:33] LABS: Anion Gap 13 (12-20); Blood Urea Nitrogen 8 mg/dL (9-16); Calcium 9.3 mg/dL (8.4-10.2); Carbon Dioxide 26 mmol/L (22-29); Chloride 101 mmol/L (96-108); Creatinine Clr Calc Pharmacy 130.4; Estimated Glomerular Filt Rate > 60; Glucose Random 145 mg/dL (60-115); Sodium 137 mmol/L (135-145)
[2023-10-21 09:46] LABS: White Blood Count 10.6 X10*3/uL (4.8-10.8)
--- NOTE | 2023-10-21 12:27 | P.CNUR_ITS ---
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 History of progressive multiple sclerosis Has been treated with indwelling Villatoro catheter Recurrent urinary tract infections Has had Villatoro catheter indwelling for the past 11 months since November 2022 Catheter changes have been performed with [facility] No prior discussion with patient regarding suprapubic tube Given long-term care requirement would suggest suprapubic tube placement with use of bladder cycling Addition of chemo prophylaxis to prevent recurrent UTIs Review of Systems 2 Constitutional: Constitutional: Reports as per HPI and Reports no additional constitutional complaints Cardiovascular: Cardiovascular: Reports as per HPI and Reports no additional cardiovascular complaints Respiratory: Respiratory: Reports as per HPI and Reports no additional respiratory complaints Gastrointestinal: Gastrointestinal: Reports as per HPI and Reports no additional gastrointestinal complaints Genitourinary: Genitourinary: Reports as per HPI Musculoskeletal: Musculoskeletal: Reports no additional musculoskeletal complaints and Reports as per HPI Neurologic: Reports system reviewed and no additional complaints, except as documented and Reports as per HPI PMFSH Past Medical History Medical History 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 Microcytic anemia Multiple sclerosis Headache Family History Family History Other No family history of coronary artery disease Surgical History Surgical History H/O hernia repair Social History Social History Household Members: Family Housing: Apartment 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 have visiting nurse or other home services: Yes (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) Unable to assess alcohol history related to: Unknown Alcohol intake: never Patient Tobacco Use Status: Never used Tobacco Tobacco use type: Cigarette Cigarettes Per Day: 0.25 Smoked in Last 30 Days: No Use of substances other than those prescribed or required for medical reasons: Yes Substance Use Type: Marijuana Substance Use Frequency: Occasionally Last Used Substance: Days (ago) Currently Displaying Signs/Symptoms of Drug Intoxication Withdrawal: No Any prior treatment program specific to substance use: No Have you been hit, kicked, punched, or otherwise hurt by someone within the past year? If so, by whom?: No Do you feel safe in your current relationship?: No Current Relationship Is there a partner from a previous relationship who is making you feel unsafe now?: No Are you made to feel afraid or neglected: No Advance Directives: Yes Advance Directives on File: Yes Advance Directives Date on File: 08/21/22 Do you have thoughts of harming others: None Do you have a plan to hurt others: No Plan Nutrition Risks: No Nutritional Risk Poor oral hygiene: No service: No Current occupational status: disabled Meds Allergies Allergy/AdvReac Type Severity Reaction Status Date / Time No Known Allergies Allergy Verified 08/05/23 15:43 [No Known Allergies*] Active Medications: Current Medications Acetaminophen (Acetaminophen 325 Mg Tablet) 650 mg PO Q6H PRN PRN Reason: Pain, Mild (Pain Scale 1-3) Last Admin: 10/21/23 07:43 Dose: 650 mg Baclofen (Baclofen 20 Mg Tablet) 20 mg PO DAILY REPLACED BY [facility] Last Admin: 10/21/23 07:41 Dose: 20 mg Baclofen (Baclofen 10 Mg Tablet) 10 mg PO DAILY PRN PRN Reason: muscle spasm/insomnia Last Admin: 10/21/23 04:15 Dose: 10 mg Benzonatate (Benzonatate 100 Mg Capsule) 100 mg PO TID PRN PRN Reason: Cough Docusate Sodium (Docusate Sodium 100 Mg Capsule) 100 mg PO DAILY PRN PRN Reason: Constipation Enoxaparin Sodium (Enoxaparin Sodium 40 Mg/0.4 Ml Syringe) 40 mg SUBCUT Q24H REPLACED BY [facility] Last Admin: 10/20/23 18:03 Dose: 40 mg Cefepime HCl 2 gm/ Sodium (Chloride) 50 mls @ 100 mls/hr IV Q12H REPLACED BY [facility] Last Infusion: 10/21/23 04:07 Dose: Infused Magnesium Hydroxide (Milk Of Magnesia 30 Ml Oral.Susp) 30 ml PO DAILY PRN PRN Reason: Constipation Melatonin (Melatonin 3 Mg Tablet) 6 mg PO BEDTIME PRN PRN Reason: Insomnia Multivitamins/Vitamin C (Multivitamin Tablet) 1 tab PO DAILY REPLACED BY [facility] Last Admin: 10/21/23 07:44 Dose: 1 tab Omeprazole (Omeprazole 20 Mg Capsule.Dr) 20 mg PO DAILY@0630 REPLACED BY [facility] Last Admin: 10/21/23 07:43 Dose: 20 mg Ondansetron HCl (Ondansetron Hcl 4 Mg/2 Ml Vial) 4 mg IVPUSH Q8H PRN PRN Reason: Nausea and Vomiting Prednisone (Prednisone 20 Mg Tablet) 20 mg PO DAILY REPLACED BY [facility] Last Admin: 10/21/23 07:44 Dose: 20 mg Sodium Chloride (0.9 % Sodium Chloride Flush 3 Ml Syringe) 3 ml IVFLUSH QSHIFT REPLACED BY [facility] Last Admin: 10/21/23 07:47 Dose: 3 ml Tizanidine HCl (Tizanidine Hcl 4 Mg Tablet) 4 mg PO BID REPLACED BY [facility] Last Admin: 10/21/23 07:44 Dose: 4 mg Vitamin D (Cholecalciferol (Vitamin D3) 25 Mcg Tablet) 50 mcg PO DAILY REPLACED BY [facility] Last Admin: 10/21/23 07:41 Dose: 50 mcg Home Medications Medication Instructions Recorded Confirmed Last Taken Type cholecalciferol (vitamin D3) 50 1 cap PO DAILY 09/18/21 10/20/23 10/20/22 History mcg (2,000 unit) capsule multivitamin 1 tab PO DAILY 08/20/22 10/20/23 10/19/22 History omega-3 300 mg-dha 120 mg-epa 180 1 cap PO DAILY 08/20/22 10/20/23 10/19/22 History mg-fish oil 1,000 mg capsule baclofen 10 mg tablet 10 mg PO DAILY PRN muscle 04/05/23 10/20/23 04/16/23 History spasm/insomnia baclofen 20 mg tablet 20 mg PO DAILY 10/20/23 10/20/23 10/19/22 History Physical Exam 2 Vital Signs: Vital Signs: Last Vital Signs Temp 99.7 F 10/21/23 09:12 Pulse 117 H 10/21/23 07:25 Resp 18 10/21/23 07:25 BP 139/75 10/21/23 07:25 Pulse Ox 96 10/21/23 07:25 O2 Del Method Room Air 10/21/23 07:25 BMI result Body Mass Index 26.4 Const: General: cooperative, healthy appearing, comfortable and no acute distress Orientation/consciousness: patient oriented x3 HEENT: Face and sinus: Yes normal facial exam Mouth: moist mucous membranes Neck: Neck: Yes normal visual inspection, Yes full ROM and Yes trachea midline Chest: Chest palpation & inspection: normal inspection of the chest Resp: Effort & Inspection: normal respiratory effort, able to speak in complete sentences and no respiratory distress GI: Inspection: Yes normal to inspection Back/Spine/Pelvis: Cervical Spine: normal cervical lordosis Thoracic/Lumbar Spine: thoracic and lumbar spine normal to inspection Skin: General skin exam: no rashes or lesions noted Neuro: General: patient oriented x3, tone normal and moves all extremities Extrem: General: Yes normal to inspection and Yes capillary refill normal Results Labs 10/21/23 09:09 10/21/23 09:09 Labs: Abnormal lab results 10/20/23 10/20/23 10/21/23 Range/Units 13:29 15:34 09:09 WBC 16.9 H (4.8-10.8) X10*3/uL Hgb 13.2 L 11.9 L (14.0-18.0) g/dl Hct 40.0 L 36.8 L (42.0-52.0) % MCV 79.5 L (80.0-98.0) fL MCH 26.2 L 25.9 L (27.0-33.0) pg Neut % (Auto) 82.4 H (45-73) % Lymph % (Auto) 7.2 L (20-40) % [place] # (Auto) 1.6 H (0.1-1.2) X10*3/uL Abs Immat Gran (auto) 0.06 H (0.00-0.03) X10*3/uL Absolute Neuts (auto) 13.9 H (2.0-8.3) x10*3/uL Potassium 3.0 L (3.3-5.1) mmol/L BUN 8 L (9-16) mg/dL Random Glucose 145 H (60-115) mg/dL Urine Protein 100 (2+) H (Neg-Trace) mg/dL Urine Blood Large (3+) H (Negative) Urine Nitrite Positive H (Negative) Ur Leukocyte Esterase Large (3+) H (Negative) Urine RBC >20 H (0-2) /HPF Urine WBC >50 H (0-5) /HPF Short CBC 10/20/23 10/21/23 Range/Units 13:29 09:09 WBC 16.9 H 10.6 (4.8-10.8) X10*3/uL Hgb 13.2 L 11.9 L (14.0-18.0) g/dl Hct 40.0 L 36.8 L (42.0-52.0) % Plt Count 182 175 (160-400) X10*3/uL BMP 10/20/23 10/21/23 13:29 09:09 Sodium 139 137 Potassium 3.3 3.0 L Chloride 97 101 Carbon Dioxide 28 26 BUN 10 8 L Creatinine 0.69 0.76 Calcium 9.8 9.3 Liver Function 10/20/23 Range/Units 13:29 Total Bilirubin 0.5 (0.0-1.0) mg/dL AST 21 (5-37) U/L ALT 23 (0-40) U/L Alkaline Phosphatase 49 (39-117) U/L Albumin 3.7 (3.5-5.0) g/dL Urine 10/20/23 Range/Units 15:34 Urine Color Yellow Urine Appearance Turbid Urine pH 7.0 (5.0-9.0) Ur Specific [place] 1.015 (1.005-1.025) Urine Protein 100 (2+) H (Neg-Trace) mg/dL Urine Glucose (UA) Negative (Negative) mg/dL All other labs normal. Assessment and Plan (1) Acute UTI: Status: Acute (2) Neurogenic urinary bladder disorder: Status: Acute Plan Risks, benefits and alternatives to therapy were discussed. These include but are not limited to infection, bleeding, damage to local organs and tissues, need for further interventions. Anesthetic risks regarding cardiac arrhythmia, blood clots, and potential mortality were discussed. The patient understands the typical recovery time and the outpatient nature of the procedure. After consideration of these risks the patient gives full informed consent and they wish to move ahead with the procedure. Cystoscopy, suprapubic tube placement Procedures Date of Service Date of Service: 10/21/23
--- NOTE | 2023-10-21 12:47 | MHC.CM.PN ---
pt lives with his parents has [employer] for nursing will nbeed amb home pt has a caponizer 9 to 1 and 4 to 6 and overnight daily dc plan home
--- NOTE | 2023-10-21 13:33 | HO.PM.IMPN ---
Subjective Subjective Date of Service: 10/21/23 Interval History: Noted to have high-grade temp 102.3 degrees this morning, feeling better denies left lower quadrant pain, denies scrotal pain, denies nausea vomiting tolerated breakfast. Review of Systems All other system reviewed and negative. Physical Exam Vital Signs: Vital Signs: Last Vital Signs Temp 99.7 F 10/21/23 09:12 Pulse 117 H 10/21/23 07:25 Resp 18 10/21/23 07:25 BP 139/75 10/21/23 07:25 Pulse Ox 96 10/21/23 07:25 O2 Del Method Room Air 10/21/23 07:25 BMI result Body Mass Index 26.4 Const: Other: Gen: Awake alert x3, in no acute distress HEENT: sclera anicteric, moist mucus membranes Neck: supple,no jvd. Lungs: clear to auscultation Heart: regular rate and rhythm, no murmurs Abd: soft, non tender, no guarding, no rigidity, non-distended, bowel sounds audible Ext: no edema Skin: warm/well-perfused Neuro: alert and oriented x3, mild spasticity Psych: appropriate affect Objective Data Active Medications Acetaminophen (Acetaminophen 325 Mg Tablet) 650 mg PO Q6H PRN PRN Reason: Pain, Mild (Pain Scale 1-3) Last Admin: 10/21/23 07:43 Dose: 650 mg Documented By: JOSEPH Baclofen (Baclofen 20 Mg Tablet) 20 mg PO DAILY [facility] Last Admin: 10/21/23 07:41 Dose: 20 mg Documented By: JOSEPH Baclofen (Baclofen 10 Mg Tablet) 10 mg PO DAILY PRN PRN Reason: muscle spasm/insomnia Last Admin: 10/21/23 04:15 Dose: 10 mg Documented By: LISBETH Benzonatate (Benzonatate 100 Mg Capsule) 100 mg PO TID PRN PRN Reason: Cough Docusate Sodium (Docusate Sodium 100 Mg Capsule) 100 mg PO DAILY PRN PRN Reason: Constipation Enoxaparin Sodium (Enoxaparin Sodium 40 Mg/0.4 Ml Syringe) 40 mg SUBCUT Q24H [facility] Last Admin: 10/20/23 18:03 Dose: 40 mg Documented By: MANZANARES Cefepime HCl 2 gm/ Sodium (Chloride) 50 mls @ 100 mls/hr IV Q12H [facility] Last Infusion: 10/21/23 04:07 Dose: Infused Documented By: LISBETH Magnesium Hydroxide (Milk Of Magnesia 30 Ml Oral.Susp) 30 ml PO DAILY PRN PRN Reason: Constipation Melatonin (Melatonin 3 Mg Tablet) 6 mg PO BEDTIME PRN PRN Reason: Insomnia Multivitamins/Vitamin C (Multivitamin Tablet) 1 tab PO DAILY [facility] Last Admin: 10/21/23 07:44 Dose: 1 tab Documented By: JOSEPH Omeprazole (Omeprazole 20 Mg Capsule.) 20 mg PO DAILY@0630 [facility] Last Admin: 10/21/23 07:43 Dose: 20 mg Documented By: JOSEPH Ondansetron HCl (Ondansetron Hcl 4 Mg/2 Ml Vial) 4 mg IVPUSH Q8H PRN PRN Reason: Nausea and Vomiting Prednisone (Prednisone 20 Mg Tablet) 20 mg PO DAILY [facility] Last Admin: 10/21/23 07:44 Dose: 20 mg Documented By: JOSEPH Sodium Chloride (0.9 % Sodium Chloride Flush 3 Ml Syringe) 3 ml IVFLUSH QSHIFT [facility] Last Admin: 10/21/23 07:47 Dose: 3 ml Documented By: JOSEPH Tizanidine HCl (Tizanidine Hcl 4 Mg Tablet) 4 mg PO BID [facility] Last Admin: 10/21/23 07:44 Dose: 4 mg Documented By: JOSEPH Vitamin D (Cholecalciferol (Vitamin D3) 25 Mcg Tablet) 50 mcg PO DAILY [facility] Last Admin: 10/21/23 07:41 Dose: 50 mcg Documented By: JOSEPH Labs 10/21/23 09:09 10/21/23 09:09 Labs: Laboratory Results - last 24 hr 10/20/23 10/20/23 10/21/23 13:29 15:34 09:09 MCV 79.5 L 80.0 MCH 26.2 L 25.9 L MCHC 33.0 32.3 RDW 14.7 14.5 Plt Count 182 175 MPV 11.2 11.5 Immature Gran % (Auto) 0.4 Neut % (Auto) 82.4 H Lymph % (Auto) 7.2 L [place] % (Auto) 9.6 Eos % (Auto) 0.2 Baso % (Auto) 0.2 Lymph # (Auto) 1.2 [place] # (Auto) 1.6 H Eos # (Auto) 0.0 Baso # (Auto) 0.0 Abs Immat Gran (auto) 0.06 H Absolute Neuts (auto) 13.9 H Absolute Nucleated RBC 0.000 0.000 Nucleated RBC % (auto) 0.0 0.0 Smear Tech's Comments VERIFIED Anion Gap 17 13 Estim Creat Clear Calc 143.7 130.4 Estimated GFR > 60 > 60 Random Glucose 91 145 H Lactic Acid 1.5 Calcium 9.8 9.3 Total Bilirubin 0.5 AST 21 ALT 23 Alkaline Phosphatase 49 Total Protein 7.8 Albumin 3.7 Urine Color Yellow Urine Appearance Turbid Urine pH 7.0 Ur Specific [place] 1.015 Urine Protein 100 (2+) H Urine Glucose (UA) Negative Urine Ketones Trace Urine Blood Large (3+) H Urine Nitrite Positive H Ur Leukocyte Esterase Large (3+) H Urine RBC >20 H Urine WBC >50 H Ur Squamous Epith Cells 0-2 Urine Bacteria 4+ Hyaline Casts 3-5 Microbiology Microbiology Results: Microbiology 10/20/23 16:03 Urine Culture - Final Urine clean catch - Urine [place] Assessment and Plan (1) Acute UTI: Status: Acute Plan 38-year-old gentleman with past medical history of multiple sclerosis with chronic indwelling Villatoro catheter, presented to [facility] with 1 week of left lower quadrant abdominal pain, left scrotal swelling discomfort, fever and generalized weakness diagnosed with sepsis due to UTI. Sepsis due to UTI/ left epididymoorchitis, right epididymitis: Recurrent fevers, abdominal pain and scrotal pain resolved cont IV cefepime,D2, urine culture grew greater than 100,000 mixed kayode and blood culture x2 negative Seen by Urology they recommend suprapubic catheter, WBC normalized NPO after midnight Supportive care Multiple sclerosis no acute flare being followed by Neurology as outpatient and recommended to taper prednisone to once daily. cont. baclofen , added Zanaflex twice daily for persistent spasms Continue prednisone 10 mg daily. DVT prophylaxis with Lovenox Code status full code In my clinical judgment patient need 2 night inpatient hospitalization for management of sepsis with UTI requiring IV antibiotics and expert consultation Quality Stroke Does the patient have a stroke diagnosis?: No VTE Prior VTE?: No VTE Risk Level:: Medical - moderate - high VTE Device Contraindication: Treatment Not Indicated VTE Drug Contraindication: N/A - Med Ordered
[2023-10-21 15:08] VITALS: BP 121/72; PULSE 89; RESP 16; TEMP 37.1; O2SAT 98
[2023-10-21] MEDS: Potassium Chloride ER 20 MEQ TAB.ER.PRT 40 MEQ PO (15:54)
[2023-10-21] MEDS: Enoxaparin Sodium 40 MG/0.4 ML SYRINGE SUBCUT (18:21)
[2023-10-21 19:19] VITALS: BP 130/81; PULSE 99; RESP 18; TEMP 37.1; O2SAT 100
--- NOTE | 2023-10-21 21:42 | MHC.PIE ---
Addendum entered by Jaquan Byrne RN 10/21/23 22:02: i; dulcolax supp ordered e; pt has bm, will cont to monitor Original Note: p; pt c/o constipation asking for suppository. note; pt has no suppository meds in prn. pt refused po colace or milk of mag. i; dr jade notified e; will cont to monitor
[2023-10-21] MEDS: bisacodyL 10 MG SUPP.RECT PR (21:59)
[2023-10-22 03:01] VITALS: BP 119/71; PULSE 86; RESP 18; TEMP 36.9; O2SAT 97
[2023-10-22] MEDS: cefEPime HCl 2 GM in 0.9 % Sodium Chloride 50 ML IV ×2 (05:30→18:02)
[2023-10-22 07:42] LABS: Anion Gap 15 (12-20); Blood Urea Nitrogen 10 mg/dL (9-16); Calcium 9.1 mg/dL (8.4-10.2); Carbon Dioxide 26 mmol/L (22-29); Chloride 107 mmol/L (96-108); Creatinine Clr Calc Pharmacy 162.5; Estimated Glomerular Filt Rate > 60; Glucose Random 80 mg/dL (60-115); Potassium 3.7 mmol/L (3.3-5.1); Sodium 144 mmol/L (135-145)
[2023-10-22 07:48] VITALS: BP 127/63; PULSE 95; RESP 18; TEMP 36.8; O2SAT 96
[2023-10-22] MEDS: 0.9 % Sodium Chloride Flush 3 ML SYRINGE IVFLUSH ×3 (08:42→19:46)
[2023-10-22] MEDS: TiZANidine HCL 4 MG TABLET PO ×2 (10:16→19:43)
[2023-10-22] MEDS: Baclofen 20 MG TABLET PO (10:17)
--- NOTE | 2023-10-22 15:02 | HO.PM.IMPN ---
Subjective Subjective Date of Service: 10/22/23 Interval History: Feeling better this morning no left lower quadrant abdominal pain, no fevers, no chills, less left scrotal swelling, NPO for suprapubic catheter placement. Review of Systems All other system reviewed and negative. Physical Exam Vital Signs: Vital Signs: Last Vital Signs Temp 98.2 F 10/22/23 07:48 Pulse 95 10/22/23 07:48 Resp 18 10/22/23 07:48 BP 127/63 10/22/23 07:48 Pulse Ox 96 10/22/23 07:48 O2 Del Method Room Air 10/22/23 07:48 BMI result Body Mass Index 26.4 Const: Other: Gen: Awake alert x3, in no acute distress HEENT: sclera anicteric, moist mucus membranes Neck: supple,no jvd. Lungs: clear to auscultation Heart: regular rate and rhythm, no murmurs Abd: soft, non tender, no guarding, no rigidity, non-distended, bowel sounds audible Ext: no edema Left scrotum no significant swelling, no tenderness Skin: warm/well-perfused Neuro: alert and oriented x3, mild spasticity Psych: appropriate affect Objective Data Active Medications Acetaminophen (Acetaminophen 325 Mg Tablet) 650 mg PO Q6H PRN PRN Reason: Pain, Mild (Pain Scale 1-3) Last Admin: 10/21/23 07:43 Dose: 650 mg Documented By: JOSEPH Baclofen (Baclofen 20 Mg Tablet) 20 mg PO DAILY [facility] Last Admin: 10/22/23 10:17 Dose: 20 mg Documented By: SHAKIRA Baclofen (Baclofen 10 Mg Tablet) 10 mg PO DAILY PRN PRN Reason: muscle spasm/insomnia Last Admin: 10/21/23 04:15 Dose: 10 mg Documented By: LISBETH Benzonatate (Benzonatate 100 Mg Capsule) 100 mg PO TID PRN PRN Reason: Cough Bisacodyl (Bisacodyl 10 Mg Supp.Rect) 10 mg [place] BEDTIME PRN PRN Reason: Constipation Last Admin: 10/21/23 21:59 Dose: 10 mg Documented By: NELL Docusate Sodium (Docusate Sodium 100 Mg Capsule) 100 mg PO DAILY PRN PRN Reason: Constipation Enoxaparin Sodium (Enoxaparin Sodium 40 Mg/0.4 Ml Syringe) 40 mg SUBCUT Q24H [facility] Last Admin: 10/21/23 18:21 Dose: 40 mg Documented By: JOSEPH Cefepime HCl 2 gm/ Sodium (Chloride) 50 mls @ 100 mls/hr IV Q12H [facility] Last Infusion: 10/22/23 06:05 Dose: Infused Documented By: NELL Magnesium Hydroxide (Milk Of Magnesia 30 Ml Oral.Susp) 30 ml PO DAILY PRN PRN Reason: Constipation Melatonin (Melatonin 3 Mg Tablet) 6 mg PO BEDTIME PRN PRN Reason: Insomnia Multivitamins/Vitamin C (Multivitamin Tablet) 1 tab PO DAILY [facility] Last Admin: 10/22/23 10:22 Dose: Not Given Documented By: SHAKIRA Non-Admin Reason: Physician Held Med Omeprazole (Omeprazole 20 Mg Capsule.) 20 mg PO DAILY@0630 [facility] Last Admin: 10/22/23 05:30 Dose: Not Given Documented By: NELL Non-Admin Reason: Patient Refused Ondansetron HCl (Ondansetron Hcl 4 Mg/2 Ml Vial) 4 mg IVPUSH Q8H PRN PRN Reason: Nausea and Vomiting Prednisone (Prednisone 20 Mg Tablet) 20 mg PO DAILY [facility] Last Admin: 10/22/23 10:23 Dose: Not Given Documented By: SHAKIRA Non-Admin Reason: Physician Held Med Sodium Chloride (0.9 % Sodium Chloride Flush 3 Ml Syringe) 3 ml IVFLUSH QSHIFT [facility] Last Admin: 10/22/23 08:42 Dose: 3 ml Documented By: SHAKIRA Tizanidine HCl (Tizanidine Hcl 4 Mg Tablet) 4 mg PO BID [facility] Last Admin: 10/22/23 10:16 Dose: 4 mg Documented By: SHAKIRA Vitamin D (Cholecalciferol (Vitamin D3) 25 Mcg Tablet) 50 mcg PO DAILY [facility] Last Admin: 10/22/23 10:22 Dose: Not Given Documented By: SHAKIRA Non-Admin Reason: Physician Held Med Labs 10/21/23 09:09 10/22/23 05:46 Labs: Laboratory Results - last 24 hr 10/22/23 05:46 Hold Purple Top SEE NOTE Anion Gap 15 Estim Creat Clear Calc 162.5 Estimated GFR > 60 Random Glucose 80 Calcium 9.1 Microbiology Microbiology Results: Microbiology 10/21/23 09:09 Blood Culture - Preliminary Blood - Venous No growth after 24 hours. 10/21/23 09:09 Blood Culture - Preliminary Blood - Venous No growth after 24 hours. 10/20/23 20:59 Blood Culture - Preliminary Blood - Venous No growth after 24 hours. 10/20/23 20:59 Blood Culture - Preliminary Blood - Venous No growth after 24 hours. Assessment and Plan (1) Acute UTI: Status: Acute Plan 38-year-old gentleman with past medical history of multiple sclerosis with chronic indwelling Villatoro catheter, presented to [facility] with 1 week of left lower quadrant abdominal pain, left scrotal swelling discomfort, fever and generalized weakness diagnosed with sepsis due to UTI. Sepsis due to acute UTI due to chronic Villatoro catheter/ left epididymo orchitis, right epididymitis: No recurrent fevers since yesterday morning, abdominal pain and scrotal pain and swelling resolved cont IV cefepime,D2, urine culture grew greater than 100,000 mixed kayode and blood culture x2 negative WBC normalized Seen by Urology they recommend suprapubic catheter, since patient has chronic Villatoro for 11 months with recurrent UTIs NPO today for suprapubic catheter placement Will discharge home on Levaquin for total 2 weeks of antibiotics for complicated UTI/orchitis due to indwelling Villatoro catheter (despite normal urine culture since significantly positive UA) Multiple sclerosis no acute flare being followed by Neurology as outpatient and recommended to taper prednisone to once daily. cont. baclofen , added Zanaflex twice daily for persistent spasms Continue prednisone 10 mg daily. Acute hypokalemia repleted and resolved DVT prophylaxis with Lovenox Code status full code In my clinical judgment patient need continued inpatient hospitalization for management of sepsis with UTI requiring IV antibiotics and expert consultation Quality Stroke Does the patient have a stroke diagnosis?: No VTE Prior VTE?: No VTE Risk Level:: Medical - moderate - high VTE Device Contraindication: Treatment Not Indicated VTE Drug Contraindication: N/A - Med Ordered
[2023-10-22 15:13] VITALS: BP 127/80; PULSE 87; RESP 20; TEMP 37.6; O2SAT 94
--- NOTE | 2023-10-22 15:47 | MHC.SHP ---
Pre-Procedural Eval Section A Date of Service: 10/22/23 The patient is an INPATIENT: Yes Changes since office visit: No Cold of Flu in the past 2 weeks, No New Medical Problems, No Changes in Medication and No Patient answered all questions The History & Physical has been completed within 30 days and I have reviewed it.: Yes Section B Chief Complaint: Sepsis due to acute UTI Allergies: Allergies Allergy/AdvReac Type Severity Reaction Status Date / Time No Known Allergies Allergy Verified 08/05/23 15:43 [No Known Allergies*] Plan Diagnosis/Plan: Unchanged ( cystoscopy with suprapubic tube placement) I have reviewed the history and physical and performed a pertinent physical examination on my patient. No changes have occurred unless specified. Time Spent With Patient Time: Total time managing care of this patient today ____ minutes.
--- NOTE | 2023-10-22 15:57 | HO.ANESPROP2 ---
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 Microcytic anemia Multiple sclerosis Headache Family History Family History Other No family history of coronary artery disease Family history of problems with anesthesia: No Surgical History Surgical History H/O hernia repair History of Problems with Anesthesia: No Social History Social History Household Members: Family Housing: Apartment Unable to assess alcohol history related to: Unknown Alcohol intake: never Patient Tobacco Use Status: Never used Tobacco Tobacco use type: Cigarette Cigarettes Per Day: 0.25 Smoked in Last 30 Days: No Use of substances other than those prescribed or required for medical reasons: Yes Substance Use Type: Marijuana Substance Use Type Other:: occasional Substance Use Frequency: Socially Last Used Substance: Days (ago) Currently Displaying Signs/Symptoms of Drug Intoxication Withdrawal: No Any prior treatment program specific to substance use: No Have you been hit, kicked, punched, or otherwise hurt by someone within the past year? If so, by whom?: No Do you feel safe in your current relationship?: No Current Relationship Is there a partner from a previous relationship who is making you feel unsafe now?: No Are you made to feel afraid or neglected: No Are you DNR?: No Advance Directives: Yes Advance Directives on File: Yes Advance Directives Date on File: 08/21/22 Do you have thoughts of harming others: None Do you have a plan to hurt others: No Plan Recently lost weight without trying: No Nutrition Risks: No Nutritional Risk Poor oral hygiene: No (missing front teeth) service: No Current occupational status: disabled Meds Allergies Allergy/AdvReac Type Severity Reaction Status Date / Time No Known Allergies Allergy Verified 08/05/23 15:43 [No Known Allergies*] Active Medications: Current Medications Acetaminophen (Acetaminophen 325 Mg Tablet) 650 mg PO Q6H PRN PRN Reason: Pain, Mild (Pain Scale 1-3) Last Admin: 10/21/23 07:43 Dose: 650 mg Baclofen (Baclofen 20 Mg Tablet) 20 mg PO DAILY [facility] Last Admin: 10/22/23 10:17 Dose: 20 mg Baclofen (Baclofen 10 Mg Tablet) 10 mg PO DAILY PRN PRN Reason: muscle spasm/insomnia Last Admin: 10/21/23 04:15 Dose: 10 mg Benzonatate (Benzonatate 100 Mg Capsule) 100 mg PO TID PRN PRN Reason: Cough Bisacodyl (Bisacodyl 10 Mg Supp.Rect) 10 mg RI BEDTIME PRN PRN Reason: Constipation Last Admin: 10/21/23 21:59 Dose: 10 mg Docusate Sodium (Docusate Sodium 100 Mg Capsule) 100 mg PO DAILY PRN PRN Reason: Constipation Enoxaparin Sodium (Enoxaparin Sodium 40 Mg/0.4 Ml Syringe) 40 mg SUBCUT Q24H [facility] Last Admin: 10/21/23 18:21 Dose: 40 mg Cefepime HCl 2 gm/ Sodium (Chloride) 50 mls @ 100 mls/hr IV Q12H [facility] Last Infusion: 10/22/23 06:05 Dose: Infused Magnesium Hydroxide (Milk Of Magnesia 30 Ml Oral.Susp) 30 ml PO DAILY PRN PRN Reason: Constipation Melatonin (Melatonin 3 Mg Tablet) 6 mg PO BEDTIME PRN PRN Reason: Insomnia Multivitamins/Vitamin C (Multivitamin Tablet) 1 tab PO DAILY [facility] Last Admin: 10/22/23 10:22 Dose: Not Given Omeprazole (Omeprazole 20 Mg Capsule.Dr) 20 mg PO DAILY@0630 [facility] Last Admin: 10/22/23 05:30 Dose: Not Given Ondansetron HCl (Ondansetron Hcl 4 Mg/2 Ml Vial) 4 mg IVPUSH Q8H PRN PRN Reason: Nausea and Vomiting Prednisone (Prednisone 20 Mg Tablet) 20 mg PO DAILY [facility] Last Admin: 10/22/23 10:23 Dose: Not Given Sodium Chloride (0.9 % Sodium Chloride Flush 3 Ml Syringe) 3 ml IVFLUSH QSHIFT [facility] Last Admin: 10/22/23 08:42 Dose: 3 ml Tizanidine HCl (Tizanidine Hcl 4 Mg Tablet) 4 mg PO BID [facility] Last Admin: 10/22/23 10:16 Dose: 4 mg Vitamin D (Cholecalciferol (Vitamin D3) 25 Mcg Tablet) 50 mcg PO DAILY [facility] Last Admin: 10/22/23 10:22 Dose: Not Given Home Medications Medication Instructions Recorded Confirmed Last Taken Type cholecalciferol (vitamin D3) 50 1 cap PO DAILY 09/18/21 10/20/23 10/20/22 History mcg (2,000 unit) capsule multivitamin 1 tab PO DAILY 08/20/22 10/20/23 10/19/22 History omega-3 300 mg-dha 120 mg-epa 180 1 cap PO DAILY 08/20/22 10/20/23 10/19/22 History mg-fish oil 1,000 mg capsule baclofen 10 mg tablet 10 mg PO DAILY PRN muscle 04/05/23 10/20/23 04/16/23 History spasm/insomnia baclofen 20 mg tablet 20 mg PO DAILY 10/20/23 10/20/23 10/19/22 History Exam Height,Weight and Vital Signs: Height 5 ft 9 in Weight 81.193 kg Last Vital Signs Temp 99.6 F 10/22/23 15:13 Pulse 87 10/22/23 15:13 Resp 20 10/22/23 15:13 BP 127/80 10/22/23 15:13 Pulse Ox 94 10/22/23 15:13 O2 Del Method Room Air 10/22/23 15:13 Pertinent Lab Results Pertinent Lab Results: Laboratory Tests 10/20/23 10/20/23 10/21/23 13:29 15:34 09:09 WBC 16.9 H 10.6 RBC 5.03 4.60 Hgb 13.2 L 11.9 L Hct 40.0 L 36.8 L MCV 79.5 L 80.0 MCH 26.2 L 25.9 L MCHC 33.0 32.3 RDW 14.7 14.5 Plt Count 182 175 MPV 11.2 11.5 Immature Gran % (Auto) 0.4 Neut % (Auto) 82.4 H Lymph % (Auto) 7.2 L [place] % (Auto) 9.6 Eos % (Auto) 0.2 Baso % (Auto) 0.2 Lymph # (Auto) 1.2 [place] # (Auto) 1.6 H Eos # (Auto) 0.0 Baso # (Auto) 0.0 Abs Immat Gran (auto) 0.06 H Absolute Neuts (auto) 13.9 H Absolute Nucleated RBC 0.000 0.000 Nucleated RBC % (auto) 0.0 0.0 Smear Tech's Comments VERIFIED Hold Purple Top Sodium 139 137 Potassium 3.3 3.0 L Chloride 97 101 Carbon Dioxide 28 26 Anion Gap 17 13 BUN 10 8 L Creatinine 0.69 0.76 Estim Creat Clear Calc 143.7 130.4 Estimated GFR > 60 > 60 Random Glucose 91 145 H Lactic Acid 1.5 Calcium 9.8 9.3 Total Bilirubin 0.5 AST 21 ALT 23 Alkaline Phosphatase 49 Total Protein 7.8 Albumin 3.7 Urine Color Yellow Urine Appearance Turbid Urine pH 7.0 Ur Specific [place] 1.015 Urine Protein 100 (2+) H Urine Glucose (UA) Negative Urine Ketones Trace Urine Blood Large (3+) H Urine Nitrite Positive H Ur Leukocyte Esterase Large (3+) H Urine RBC >20 H Urine WBC >50 H Ur Squamous Epith Cells 0-2 Urine Bacteria 4+ Hyaline Casts 3-5 10/22/23 05:46 WBC RBC Hgb Hct MCV MCH MCHC RDW Plt Count MPV Immature Gran % (Auto) Neut % (Auto) Lymph % (Auto) [place] % (Auto) Eos % (Auto) Baso % (Auto) Lymph # (Auto) [place] # (Auto) Eos # (Auto) Baso # (Auto) Abs Immat Gran (auto) Absolute Neuts (auto) Absolute Nucleated RBC Nucleated RBC % (auto) Smear Tech's Comments Hold Purple Top SEE NOTE Sodium 144 Potassium 3.7 D Chloride 107 Carbon Dioxide 26 Anion Gap 15 BUN 10 Creatinine 0.61 Estim Creat Clear Calc 162.5 Estimated GFR > 60 Random Glucose 80 Lactic Acid Calcium 9.1 Total Bilirubin AST ALT Alkaline Phosphatase Total Protein Albumin Urine Color Urine Appearance Urine pH Ur Specific [place] Urine Protein Urine Glucose (UA) Urine Ketones Urine Blood Urine Nitrite Ur Leukocyte Esterase Urine RBC Urine WBC Ur Squamous Epith Cells Urine Bacteria Hyaline Casts Airway Mallampati Class: I TM Dist: >3cm Neck ROM: Full Loose/Missing/Broken Teeth: Yes and Upper Heart: ok Lungs: ok Assessment and Plan Assessment Anesthesia Assessment: Anesthesia Plan Discussed and Chart Reviewed Final Anesthetic Review Family History of Problems with Anesthesia: No History of Problems with Anesthesia: No NPO: Yes ASA Class: IV Final Preanesthetic Review: No Changes in Pt Med Stat, Meds/Allgs Chart Reviewed, Consent Obtained/Reviewed and Anes Risks/Benef Reviewed Patient Risk: High Procedure Risk: Low Anesthetic Plan Anesthetic Plan: MAC: and Agree w/ Assess. and Plan Disposition: Standard PACU
--- NOTE | 2023-10-22 16:45 | P.OP_ITS ---
Operative Note Operative Note Date of Service: 10/22/23 Narrative: PreOperative Diagnosis:?neurogenic bladder Post Operative Diagnosis:?neurogenic bladder Procedure:? 1. Cystoscopy 2. Suprapubic tube placement Surgeon: Dr Miki Cao Anesthesia:?Sedation plus local Indications for procedure: recurrent UTI with indwelling cathetr for neurologic condition Procedure: After informed consent was verified the patient was brought to the operating room and placed in a supine position.? Anesthesia was administered per protocol. The patient was placed in a modified dorsal lithotomy position and prepped and draped in a sterile fashion. A safety pause was performed confirming patient identity, procedure and antibiotics. A 22 [place] Citizen cystoscope was inserted per urethra. Bladder was examined in its entirety. No abnormalities seen. Air bubble was located at the dome of the bladder. A finder needle was inserted 2 fingerbreaths above the symphysis pubis on the abdomen into the bladder.? The needle was visualized in the bladder via cystoscopy. Local anesthetic was infiltrated subcutaneously around the needle introduction site. A small, 1cm horizontal incision was made.? A trocar introducer was advanced through the abdominal wall into the bladder under visualization. The obturator was removed and a 16 Fr burciaga catheter placed. 7cc was used to inflate the balloon. The external portion of the trocar was removed. 2 0 nylon used as stay sutures Dressing was placed, the bladder was emptied, and a drainage bag was attached. The patient tolerated the procedure and was transferred in stable condition to the recovery area. Suprapubic tube will be changed in 1 month with a follow-up office visit.
[2023-10-22 16:55] VITALS: BP 128/89; PULSE 90; RESP 16; TEMP 37.4; O2SAT 98
--- NOTE | 2023-10-22 17:06 | PC.NURSE ---
PATIENT ARRIVED TO PACU WITH IV REMOVED IN O.R. ATTEMPT MAKE TO REINSERT IV. . DR. JUARES PLACED NEW #22 TO RIGHT LOWER ARM.
[2023-10-22 17:10] VITALS: BP 133/83; PULSE 94; RESP 16; O2SAT 99
[2023-10-22] MEDS: Acetaminophen 1,000 MG/100 ML PIGGYBACK 400 MG IV (17:10)
[2023-10-22 19:31] VITALS: BP 116/72; PULSE 98; RESP 18; TEMP 37.1; O2SAT 96
--- NOTE | 2023-10-23 00:31 | MHC.PIE ---
p; pt in room yelling and screaming, when asked, pt reports he is hot, can't sleep and feeling depressed, anxious and having pain. pt also stared yelling and screaming that he don't want to live any more and let him or want to kill himself. i; dr charles notified. elgin harris ativan iv now, sitter now, [facility] nate e; will cont to monitor
[2023-10-23] MEDS: LORazepam 2 MG/ML VIAL 1 MG IVPUSH (00:42)
[2023-10-23 03:56] VITALS: BP 126/68; PULSE 115; RESP 18; TEMP 37.3; O2SAT 97
[2023-10-23] MEDS: cefEPime HCl 2 GM in 0.9 % Sodium Chloride 50 ML IV (04:13)
[2023-10-23 08:00] VITALS: BP 128/73; PULSE 104; RESP 17; TEMP 37.1; O2SAT 97
--- NOTE | 2023-10-23 08:36 | HO.PM.IMPN ---
Subjective Subjective Date of Service: 10/23/23 Interval History: Feeling well this morning no abdominal pain, no fevers, no chills. Review of Systems All other system reviewed and negative. Physical Exam Vital Signs: Vital Signs: Last Vital Signs Temp 98.8 F 10/23/23 08:00 Pulse 104 H 10/23/23 08:00 Resp 17 10/23/23 08:00 BP 128/73 10/23/23 08:00 Pulse Ox 97 10/23/23 08:00 O2 Del Method Room Air 10/23/23 08:00 BMI result Body Mass Index 26.4 Gen: Awake alert x3, in no acute distress Lungs: clear to auscultation Heart: regular rate and rhythm, no murmurs Abd: soft, non tender, no guarding, no rigidity, non-distended, bowel sounds audible x 4 quadrants. Surgical site clean and dry. Psych: appropriate affect Const: Other: Objective Data Active Medications Acetaminophen (Acetaminophen 325 Mg Tablet) 650 mg PO Q6H PRN PRN Reason: Pain, Mild (Pain Scale 1-3) Last Admin: 10/21/23 07:43 Dose: 650 mg Documented By: JOSEPH Acetaminophen (Acetaminophen 325 Mg Tablet) 650 mg PO ONCE PRN PRN Reason: Pain, Mild (Pain Scale 1-3) Baclofen (Baclofen 20 Mg Tablet) 20 mg PO DAILY [facility] Last Admin: 10/22/23 10:17 Dose: 20 mg Documented By: SHAKIRA Baclofen (Baclofen 10 Mg Tablet) 10 mg PO DAILY PRN PRN Reason: muscle spasm/insomnia Last Admin: 10/21/23 04:15 Dose: 10 mg Documented By: LISBETH Benzonatate (Benzonatate 100 Mg Capsule) 100 mg PO TID PRN PRN Reason: Cough Bisacodyl (Bisacodyl 10 Mg Supp.Rect) 10 mg NM BEDTIME PRN PRN Reason: Constipation Last Admin: 10/21/23 21:59 Dose: 10 mg Documented By: NELL Docusate Sodium (Docusate Sodium 100 Mg Capsule) 100 mg PO DAILY PRN PRN Reason: Constipation Enoxaparin Sodium (Enoxaparin Sodium 40 Mg/0.4 Ml Syringe) 40 mg SUBCUT Q24H [facility] Last Admin: 10/22/23 17:45 Dose: Not Given Documented By: SHAKIRA Non-Admin Reason: Physician Held Med Fentanyl (Fentanyl Citrate/Pf 100 Mcg/2 Ml Vial) 50 mcg IVPUSH Q5M PRN; Protocol PRN Reason: Pain, Severe (Pain Scale 7-10) Cefepime HCl 2 gm/ Sodium (Chloride) 50 mls @ 100 mls/hr IV Q12H [facility] Last Infusion: 10/23/23 04:59 Dose: Infused Documented By: NELL Magnesium Hydroxide (Milk Of Magnesia 30 Ml Oral.Susp) 30 ml PO DAILY PRN PRN Reason: Constipation Melatonin (Melatonin 3 Mg Tablet) 6 mg PO BEDTIME PRN PRN Reason: Insomnia Multivitamins/Vitamin C (Multivitamin Tablet) 1 tab PO DAILY [facility] Last Admin: 10/22/23 10:22 Dose: Not Given Documented By: SHAKIRA Non-Admin Reason: Physician Held Med Omeprazole (Omeprazole 20 Mg Capsule.Dr) 20 mg PO DAILY@0630 [facility] Last Admin: 10/23/23 04:13 Dose: Not Given Documented By: NELL Non-Admin Reason: Patient Refused Ondansetron HCl (Ondansetron Hcl 4 Mg/2 Ml Vial) 4 mg IVPUSH Q8H PRN PRN Reason: Nausea and Vomiting Ondansetron HCl (Ondansetron Hcl 4 Mg/2 Ml Vial) 4 mg IVPUSH ONCE PRN PRN Reason: Nausea and Vomiting Prednisone (Prednisone 20 Mg Tablet) 20 mg PO DAILY [facility] Last Admin: 10/22/23 10:23 Dose: Not Given Documented By: SHAKIRA Non-Admin Reason: Physician Held Med Sodium Chloride (0.9 % Sodium Chloride Flush 3 Ml Syringe) 3 ml IVFLUSH QSHIFT [facility] Last Admin: 10/22/23 19:46 Dose: 3 ml Documented By: NELL Tizanidine HCl (Tizanidine Hcl 4 Mg Tablet) 4 mg PO BID [facility] Last Admin: 10/22/23 19:43 Dose: 4 mg Documented By: NELL Vitamin D (Cholecalciferol (Vitamin D3) 25 Mcg Tablet) 50 mcg PO DAILY [facility] Last Admin: 10/22/23 10:22 Dose: Not Given Documented By: SHAKIRA Non-Admin Reason: Physician Held Med Labs 10/21/23 09:09 10/22/23 05:46 Microbiology Microbiology Results: Microbiology 10/20/23 20:59 Blood Culture - Preliminary Blood - Venous No growth after 48 hours. 10/20/23 20:59 Blood Culture - Preliminary Blood - Venous No growth after 48 hours. 10/21/23 09:09 Blood Culture - Preliminary Blood - Venous No growth after 24 hours. 10/21/23 09:09 Blood Culture - Preliminary Blood - Venous No growth after 24 hours. Assessment and Plan (1) Acute UTI: Status: Acute Plan 38-year-old male with past medical history of multiple sclerosis with chronic indwelling Burciaga catheter, presented to [facility] with 1 week of left lower quadrant abdominal pain, left scrotal swelling discomfort, fever and generalized weakness diagnosed with sepsis due to UTI. Sepsis due to acute UTI due to chronic Burciaga catheter/ left epididymo orchitis, right epididymitis: - No recurrent fever since 10/21/22; no abdominal pain or scrotal pain/swelling. - s/p suprapubic catheter placed 10/22/22 by urology; patient to follow up with Dr. Cao in 1 month - Discharge today on levaquin 250mg for total of 2 weeks for complicated UTI/orchitis secondary to indwelling burciaga catheter Multiple sclerosis -- Follow with neurology outpatient. Continue prednisone once daily, baclofen, and Zanaflex BID per neurology recommendation. DVT prophylaxis with Lovenox Code status full code Quality Stroke Does the patient have a stroke diagnosis?: No VTE Prior VTE?: No VTE Risk Level:: Medical - moderate - high VTE Device Contraindication: Treatment Not Indicated VTE Drug Contraindication: N/A - Med Ordered
--- NOTE | 2023-10-23 08:49 | PM.DS ---
DS: Providers Provider Date of Service: 10/23/23 <Pranav Grimm MD - Last Filed: 11/15/23 17:59> Date of admission: 10/20/23 17:38 <Rosalina Montiel - Last Filed: 10/23/23 09:39> Primary care physician: Ebenezer Leslie MD <Rosalina Montiel - Last Filed: 10/23/23 09:39> Consults: 10/20/23 17:42 Consult to Urology Routine Consulting Provider: Miki Cao Reason for consultation: orchitis Has provider been notified: No 10/23/23 00:28 Consult for Sitter Routine Reason for consultation: agitation Has provider been notified: No 10/23/23 00:29 Consult to Psychiatry Routine Consulting Provider: Psych Covering Reason for consultation: suicidal Has provider been notified: No <Rosalinalizbeth Montiel - Last Filed: 10/23/23 09:39> DS: Diagnosis Discharge Diagnosis (1) Acute UTI: Status: Acute <Rosalian Montiel - Last Filed: 10/23/23 09:39> (2) Acute orchitis: Status: Resolved <Rosalina Montiel - Last Filed: 10/23/23 09:39> (3) Neurogenic urinary bladder disorder: Status: Acute <Rosalina Montiel - Last Filed: 10/23/23 09:39> DS: Summary Hospital Course Hospital Course: Admission HPI: Chief Complaint: Left lower quadrant abdominal pain/fever/ swollen left scrotum 38-year-old gentleman with past medical history significant for MS with chronic Burciaga catheter, bed bound, with history of recurrent urinary tract infections presented to [facility] due to symptoms of left lower quadrant abdominal pain of few days duration patient is a vague historian he noted swelling of left scrotum 1 week ago and developed pain 2-3 D days ago associated with fever, generalized weakness, he denies urinary symptoms of dysuria, urgency and frequency since his Burciaga catheter, in the emergency room patient was afebrile, tachycardic, normal blood pressure noted to have elevated WBC count 16.9, stable renal function, urinalysis positive for large blood, urine nitrate, leukocyte Esterace greater than 50 WBC and 4+ bacteria, scrotal ultrasound showed left epididymoorchitis, right epididymitis, CT scan of abdomen and pelvis showed bladder wall thickening with layering hyperdensities, possibly representing calculi, lack of complete bladder decompression, edematous left testis with left scrotal skin thickening, and edema, in ED patient receive IV cefepime and now being admitted to [facility] for sepsis due to UTI and left epididymoorchitis. Hospital Course: This patient with past medical history of MS and indwelling burciaga catheter presented with abdominal pain, scrotal swelling, tachycardia, elevated SBC, and +UA. Clinical presentation was consistent with sepsis secondary to acute UTI/epidydimorchitis. Urine culture showed 100,00+ Mixed bacterial kayode characteristic of urogenital contamination; blood cultures were negative. He was treated with cefepime 2g IV beginning 10/20/23 through 10/23/23. He will be discharge with levaquin for a total of 14 days. He was seen by urology and was recommended for suprapubic catheterization due to recurrent UTIs with indwelling burciaga. Patient tolerated the procedure well and has no fever, abdominal pain, or AMS post op day 1 and is stable to dischrge home Multiple sclerosis --resume outpatient meds. Zanaflex added for spasm, and Prednisone is recuced to 10 mg daily per neuro advised - Follow with Neurology outpatient Hypokalemia -repleated and resolved Discharge to home with home health. <Rosalina Montiel - Last Filed: 10/23/23 09:39> Time Attestation Discharge coordination time: Greater than 30 minutes <Pranav Grimm MD - Last Filed: 11/15/23 17:59> Quality: Safe Use of Opioids Does Pt have an Active Cancer Diagnosis on the Problem List?: No <Rosalina Montiel - Last Filed: 10/23/23 09:39> Quality: Stroke Does the patient have a stroke diagnosis?: No <Rosalina Montiel - Last Filed: 10/23/23 09:39> Physical Exam Vital Signs: Vital Signs: Last Vital Signs Temp 98.8 F 10/23/23 08:00 Pulse 104 H 10/23/23 08:00 Resp 17 10/23/23 08:00 BP 128/73 10/23/23 08:00 Pulse Ox 97 10/23/23 08:00 O2 Del Method Room Air 10/23/23 08:00 BMI result Body Mass Index 26.4 <Rosalina Chuncharlene Montiel - Last Filed: 10/23/23 09:39> Gen: Awake alert x3, in no acute distress Lungs: clear to auscultation Heart: regular rate and rhythm, no murmurs Abd: soft, non tender, no guarding, no rigidity, non-distended, bowel sounds audible. Procedure site clean and dry. Psych: appropriate affect <Rosalinalizbeth Montiel - Last Filed: 10/23/23 09:39> Const: Other: <Rosalinalizbeth Montiel - Last Filed: 10/23/23 09:39> DS: Data Data Completed and Pending Completed studies during hospitalization [Text1]: Procedures Introduction of Vasopressor into Peripheral Vein, Percutaneous Approach (04/05/23) <Rosalinalizbeth Montiel - Last Filed: 10/23/23 09:39> Labs on day of discharge: Preliminary micro results at discharge 10/20/23 20:59 Blood Culture - Preliminary Blood - Venous No growth after 48 hours. 10/20/23 20:59 Blood Culture - Preliminary Blood - Venous No growth after 48 hours. 10/21/23 09:09 Blood Culture - Preliminary Blood - Venous No growth after 24 hours. 10/21/23 09:09 Blood Culture - Preliminary Blood - Venous No growth after 24 hours. <Rosalinalizbeth Montiel - Last Filed: 10/23/23 09:39> Discharge Plan Discharge Anticipated Discharge Date/Time: 10/23/23 09:51 <Rosalinalizbeth Montiel - Last Filed: 10/23/23 09:39> Patient Disposition: Home Health Service <Rosalina Montiel - Last Filed: 10/23/23 09:39> Discharge Diagnosis: Acute UTI, orchitis, neurogenic bladder <Rosalina Montiel - Last Filed: 10/23/23 09:39> Acute UTI, orchitis, neurogenic bladder <Pranav Grimm MD - Last Filed: 11/15/23 17:59> Referrals: Name,MD Ebenezer [Primary Care Provider] - 1 Week <Rosalina Montiel - Last Filed: 10/23/23 09:39> Discharge Medications: New levofloxacin 500 mg tablet 500 mg PO DAILY 11 Days Qty: 11 0RF Continued cholecalciferol (vitamin D3) 50 mcg (2,000 unit) capsule 1 cap PO DAILY multivitamin Tablet 1 tab PO DAILY omega 1-adp-[id number]-fish oil 300 mg (120 mg- 180mg)-1,000 mg capsule 1 cap PO DAILY prednisone 20 mg tablet 20 mg PO BID Qty: 60 0RF baclofen 20 mg tablet 20 mg PO DAILY baclofen 10 mg tablet 10 mg PO DAILY PRN (Reason: muscle spasm/insomnia) <Rosalina Montiel - Last Filed: 10/23/23 09:39> Discharge Orders: Discharge Order (Routine); Ordered 10/23/23 Ordered By: Pranav Grimm <Rosalina Montiel - Last Filed: 10/23/23 09:39> Diet: Advance to usual diet <Rosalina Montiel - Last Filed: 10/23/23 09:39> Advance to usual diet <Pranav Grimm MD - Last Filed: 11/15/23 17:59> Activity on Discharge: As tolerated <Rosalina Montiel - Last Filed: 10/23/23 09:39> As tolerated <Pranav Grimm MD - Last Filed: 11/15/23 17:59> Stand Alone Forms: Patient Portal Discharge page <Rosalina Montiel - Last Filed: 10/23/23 09:39> Care Plan Goals: Recover from UTI and orchitis <Rosalina Montiel - Last Filed: 10/23/23 09:39> Health Concerns: UTI, orchitis, neurogenic bladder, MS <Rosalina Montiel - Last Filed: 10/23/23 09:39> Plan of Treatment: Take antibiotic course (Levaquin) and follow up in 1 week with PCP <Rosalina Montiel - Last Filed: 10/23/23 09:39> Assessment: As above <Rosalina Montiel - Last Filed: 10/23/23 09:39> Discharge Date/Time: 10/23/23 17:18 <Rosalina Montiel - Last Filed: 10/23/23 09:39>
[2023-10-23] MEDS: predniSONE 20 MG TABLET PO (09:38)
[2023-10-23] MEDS: Multivitamin TABLET 1 TAB PO (09:38)
[2023-10-23] MEDS: 0.9 % Sodium Chloride Flush 3 ML SYRINGE IVFLUSH (09:39)
[2023-10-23] MEDS: TiZANidine HCL 4 MG TABLET PO (09:39)
[2023-10-23] MEDS: Cholecalciferol (Vitamin D3) 25 MCG TABLET 50 MCG PO (09:39)
[2023-10-23] MEDS: Baclofen 20 MG TABLET PO (09:39)
--- NOTE | 2023-10-23 15:23 | HO.POSTANES ---
Post Anesthesia Evaluation Post Anesthesia Evaluation Date of Service: 10/23/23 Vital Signs: Vital Signs Temp Pulse Resp BP Pulse Ox O2 Del Method 10/23/23 08:00 98.8 F 104 H 17 128/73 97 Room Air 10/23/23 03:56 99.2 F 115 H 18 126/68 97 Room Air Anesthesia: Monitored Mental Status: Awake Pain Control: Satisfactory Nausea/Vomiting: None Hydration: Adequate Anesthesia-Related Issues: No Anes. Related Issues
== END 2023-10-23 17:18 | disposition home health service (06) | DRG 698 ==
LOC: HO.ED 16:19 → HO.EDOVER 18:03 → HO.S3 10-21 03:46
PROVIDERS: Urology; Admitting Provider Hospitalist; Emergency Provider Emergency Medicine; PCP Internal Medicine Geriatric Medicine; Visit Provider Internal Medicine
PROC: 0T9B40Z Drainage of Bladder with Drainage Device, Percutaneous Endoscopic Approach (ICD-10-PCS; CPT 51102; principal; 2023-10-22 15:30)
DX: T83.511A Infection and inflammatory reaction due to indwelling urethral catheter, initial encounter (principal); A41.9 Sepsis, unspecified organism; N45.3 Epididymo-orchitis; N39.0 Urinary tract infection, site not specified; E87.6 Hypokalemia; N31.9 Neuromuscular dysfunction of bladder, unspecified; G35 Multiple sclerosis; Z74.01 Bed confinement status; Z87.440 Personal history of urinary (tract) infections; Z79.52 Long term (current) use of systemic steroids; Z79.899 Other long term (current) drug therapy
CPT/HCPCS: 36415; 74176; 76870; 80048; 80053; 81001; 83605; 85025; 85027; 87040; 87086; 99285; J0131; J0665; J0692; J1650; J1956; J2060; J2250; J2704; J3010; S9485

== ENCOUNTER → 2023-10-20 17:38 | Outpatient (BNV) | payer OTHER, SELFPAY | PROVIDERS: Admitting Provider Hospitalist; Emergency Provider Emergency Medicine; PCP Internal Medicine Geriatric Medicine; Visit Provider Urology | DX: N31.9 Neuromuscular dysfunction of bladder, unspecified (principal) | CPT/HCPCS: 51102; 99222 ==

== ENCOUNTER → 2023-10-20 17:38 | Outpatient (BNV) | payer OTHER, SELFPAY | PROVIDERS: Admitting Provider Hospitalist; Emergency Provider Emergency Medicine; PCP Internal Medicine Geriatric Medicine; Visit Provider Hospitalist | DX: N39.0 Urinary tract infection, site not specified (principal); N45.2 Orchitis; N31.9 Neuromuscular dysfunction of bladder, unspecified | CPT/HCPCS: 99223; 99233; 99239 ==

== ENCOUNTER 2023-10-31 18:44 | Emergency (ER) | payer OTHER, SELFPAY ==
[2023-10-31 18:59] VITALS: BP 132/70; BP 133/80; PULSE 86; PULSE 89; RESP 18; TEMP 36.6; O2SAT 94; O2SAT 97; BMI 23.5
--- NOTE | 2023-10-31 19:21 | ED.MALEGU ---
HPI - Male Genitourinary General Chief complaint: Urogenital-Male Stated complaint: MARTIN PROBLEM Time Seen by Provider: 10/31/23 18:48 History of Present Illness HPI Narrative: Patient is a 38-year-old male with a history of suprapubic catheter. Complaining of no urine output from the suprapubic catheter site. Came in for further evaluation. The suprapubic catheter was placed on October 22. Patient denies any fever chills. Related Data Home Medications Medication Instructions Recorded Confirmed cholecalciferol (vitamin D3) 50 1 cap PO DAILY 09/18/21 10/20/23 mcg (2,000 unit) capsule multivitamin 1 tab PO DAILY 08/20/22 10/20/23 omega-3 300 mg-dha 120 mg-epa 180 1 cap PO DAILY 08/20/22 10/20/23 mg-fish oil 1,000 mg capsule baclofen 10 mg tablet 10 mg PO DAILY PRN muscle 04/05/23 10/20/23 spasm/insomnia baclofen 20 mg tablet 20 mg PO DAILY 10/20/23 10/20/23 Previous Rx's Medication Instructions Recorded prednisone 20 mg tablet 20 mg PO BID #60 tabs 10/25/22 levofloxacin 500 mg tablet 500 mg PO DAILY 11 days #11 tabs 10/23/23 Allergies Allergy/AdvReac Type Severity Reaction Status Date / Time No Known Allergies Allergy Verified 08/05/23 15:43 [No Known Allergies*] Review of Systems Review of Systems: No chest pain or shortness of breath no systemic complaints no urine output. Yes all other systems are reviewed and are negative PMFSH Past Medical History Attestation statement: The following information was validated with the patient. 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 Microcytic anemia Multiple sclerosis Headache Surgical History H/O hernia repair Family History Family History Other No family history of coronary artery disease Social History Social History Household Members: Family Housing: Apartment Unable to assess alcohol history related to: Unknown Alcohol intake: never Patient Tobacco Use Status: Never used Tobacco Tobacco use type: Cigarette Cigarettes Per Day: 0.25 Smoked in Last 30 Days: No Use of substances other than those prescribed or required for medical reasons: No Substance Use Type: Marijuana Advance Directives: Yes Advance Directives on File: Yes Advance Directives Date on File: 08/21/22 service: No Current occupational status: disabled Physical Exam Vital Signs: Vital Signs: Last Vital Signs Temp 97.8 F 10/31/23 19:31 Pulse 78 10/31/23 19:31 Resp 14 10/31/23 19:31 BP 117/86 10/31/23 19:31 Pulse Ox 97 10/31/23 19:31 O2 Del Method Room Air 10/31/23 19:31 BMI result Body Mass Index 23.5 Appearance: Alert. Oriented X3. No acute distress. Eyes: Pupils equal, round and reactive to light. ENT: Pharynx normal. Neck: Normal inspection. Neck supple. No lymph nodes noted. No crepitus CVS: Normal heart rate and rhythm. Pulses normal. Normal S1 and S2 Respiratory: No respiratory distress. Breath sounds normal. No Wheezing. No rales Abdomen: Soft and nontender. No rigidity. No distention. good BS x4. Suprapubic catheter in place. Minimal drainage. Bladder scan showed over 700 cc of urine Skin: Skin warm and dry. Normal skin color. Normal skin turgor. Extremities: No lower extremity edema. Neurovascular intact to all extremities. No Lacerations. No Rash Neuro: Oriented X 3. No sensory deficit. Moving all extermities. No slurred speech Medical Decision Making Medical Decision Making MDM Narrative: Attempted to flush the Martin catheter with only minimal success. Patient has over 700 cc of urine in the bladder by bladder scan. Will contact Urology. After obtaining permission will change the Martin catheter out. Case consulted by urology. The suprapubic catheter was only placed 10 days ago. At this time a Martin catheter was placed through the penis. There was no complications. Over 700 cc of urine was drained. Will discharge patient home. He is to follow-up with urology on an outpatient basis. Procedure no. Patient's penis was cleaned. Subsequently a 16 Estonian Martin catheter was placed. Good drainage of clear urine. The balloon was kept up to 10 cc. There was no complication. Differential Diagnosis Differential Diagnoses: The differential diagnosis associated with the presentation includes Clogged suprapubic catheter Admission/Observation Consideration of admission/observation: Escalation of care including admission/observation considered Symptoms resolved after Martin placed Consult Healthcare Provider Management of the patient was discussed with: Window Glazier (Urologist) Lab Data MDM Lab Attestation statement: I reviewed the patient's lab results. External Record Review External record reviewed: Inpatient record Prescription Management I considered prescription management with: Antibiotic Antibiotics not needed patient urine has chronic colonization Chronic Conditions Urinary retention Discharge Plan Discharge Clinical Impression: Acute urinary retention Patient Disposition: Home, Self-Care Instructions: Urinary Retention in Men (ED) Prescriptions: No Action cholecalciferol (vitamin D3) 50 mcg (2,000 unit) capsule 1 cap PO DAILY multivitamin Tablet 1 tab PO DAILY omega 2-olt-kqu-fish oil 300 mg (120 mg- 180mg)-1,000 mg capsule 1 cap PO DAILY prednisone 20 mg tablet 20 mg PO BID Qty: 60 0RF baclofen 20 mg tablet 20 mg PO DAILY levofloxacin 500 mg tablet 500 mg PO DAILY 11 Days Qty: 11 0RF baclofen 10 mg tablet 10 mg PO DAILY PRN (Reason: muscle spasm/insomnia) Referrals: Miki Cao MD [Physician] - 11/03/23
--- NOTE | 2023-10-31 19:29 | PC.NURSE ---
Pt reports lower abd/pelvic discomfort. Reports having suprapubic cath placed last week with no urine output today. 709cc of urine noted on the bladder scanner. Leg bag replaced with a urinary bag. Attempt made to flush out the line with no success. Urine is dripping out with a minimal flow. MD at bedside and aware.
[2023-10-31 19:31] VITALS: BP 117/86; PULSE 78; RESP 14; TEMP 36.6; O2SAT 97
--- NOTE | 2023-10-31 20:31 | PC.NURSE ---
16Fr cath placed by . 850cc of urine output.
== END 2023-11-01 | disposition home or self-care (01) ==
PROVIDERS: Emergency Provider Emergency Medicine Emergency Medical Services
DX: R33.9 Retention of urine, unspecified (principal); T83.098A Other mechanical complication of other urinary catheter, initial encounter; Y82.8 Other medical devices associated with adverse incidents; Y92.039 Unspecified place in apartment as the place of occurrence of the external cause
CPT/HCPCS: 51702; 99284

== ENCOUNTER 2023-11-01 15:01 | Emergency (ER) | payer OTHER, SELFPAY ==
[2023-11-01 15:17] VITALS: BP 124/87; PULSE 81; O2SAT 97
[2023-11-01 15:24] VITALS: BP 117/78; PULSE 90; RESP 16; TEMP 36.3; O2SAT 97; BMI 26.2
--- NOTE | 2023-11-01 16:25 | ED.MALEGU ---
HPI - Male Genitourinary General Chief complaint: Urogenital-Male Stated complaint: Urinary retention, hx ms Time Seen by Provider: 11/01/23 16:02 Source: patient Mode of arrival: wheelchair History of Present Illness HPI Narrative: 38-year-old male with a past medical history of neurogenic with chronic Villatoro presents emergency department for complaints of urinary retention. He states his Villatoro catheter has not been draining causing him increased discomfort in his lower abdomen and cramping legs. He states roughly 1 week ago he had a procedure to change his suprapubic catheter over to a urethral Villatoro catheter. He states he has been having lower abdominal discomfort since. He states he has been using [id number] Tylenol home without relief of symptoms. He denies any fevers, chills, noted hematuria, or penile discharge. Pertinent positives and negatives discussed in HPI Related Data Home Medications Medication Instructions Recorded Confirmed cholecalciferol (vitamin D3) 50 1 cap PO DAILY 09/18/21 10/20/23 mcg (2,000 unit) capsule multivitamin 1 tab PO DAILY 08/20/22 10/20/23 omega-3 300 mg-dha 120 mg-epa 180 1 cap PO DAILY 08/20/22 10/20/23 mg-fish oil 1,000 mg capsule baclofen 10 mg tablet 10 mg PO DAILY PRN muscle 04/05/23 10/20/23 spasm/insomnia baclofen 20 mg tablet 20 mg PO DAILY 10/20/23 10/20/23 Previous Rx's Medication Instructions Recorded prednisone 20 mg tablet 20 mg PO BID #60 tabs 10/25/22 levofloxacin 500 mg tablet 500 mg PO DAILY 11 days #11 tabs 10/23/23 Allergies Allergy/AdvReac Type Severity Reaction Status Date / Time No Known Allergies Allergy Verified 11/01/23 15:28 [No Known Allergies*] Review of Systems Review of Systems: Yes all other systems are reviewed and are negative PMFSH Past Medical History Onset Date is defined in the Problem List Problems that require an onset date and time if occurred within 24 hrs of arrival to the ED Aortic Dissection and Rupture; Neurologic impairment; Cardiopulmonary Arrest; Endotracheal Intubation; Insertion or Replacement of Mechanical Circulatory Assist Device Medical History 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 Microcytic anemia Multiple sclerosis Headache Surgical History H/O hernia repair Family History Family History Other No family history of coronary artery disease Social History Social History Household Members: Family Housing: Apartment Unable to assess alcohol history related to: Unknown Alcohol intake: never Patient Tobacco Use Status: Never used Tobacco Tobacco use type: Cigarette Cigarettes Per Day: 0.25 Smoked in Last 30 Days: No Use of substances other than those prescribed or required for medical reasons: No Substance Use Type: Marijuana Advance Directives: Yes Advance Directives on File: Yes Advance Directives Date on File: 08/21/22 service: No Current occupational status: disabled Physical Exam Vital Signs: Vital Signs: Last Vital Signs Temp 97.3 F 11/01/23 15:24 Pulse 112 H 11/01/23 17:27 Resp 16 11/01/23 17:27 BP 109/66 11/01/23 17:27 Pulse Ox 99 11/01/23 17:27 O2 Del Method Room Air 11/01/23 17:27 BMI result Body Mass Index 26.2 Nursing notes and vital signs reviewed. GENERAL APPEARANCE: A&0 x 4, generally well appearing, no acute distress HENMT: Normal to inspection, atraumatic, face symmetrical. Normal external ears, nose, and oropharynx clear. EYE: PERRLA, EOM intact, structures appear normal NECK: Supple without lymphadenopathy. No stiffness or restricted ROM. CHEST: Normal to inspection HEART: Normal rate and regular rhythm, normal S1/S2, no M/R/G LUNGS: LS CTA, moving air well. Able to speak in complete sentences. No crackles, wheezes, or rhonchi auscultated ABDOMEN: Soft, tender to palpation at suprapubic abdomen. Normal bowel sounds noted BACK: No CVAT, no obvious deformity EXTREMITIES: No cyanosis, clubbing, or edema. Normal capillary refill. NEUROLOGICAL: Alert and oriented, moving all 4 extremities with equal strength. CN not formally tested but appearing grossly intact. Observed to ambulate with normal gait. Cognition normal SKIN: Warm and dry without any lesions, rash, or visible sores PSYCH: Cooperative, normal affect, normal thought process Medications Administered Discontinued Medications Generic Name Dose Route Start Last Admin Trade Name Elijah PRN Reason Stop Dose Admin Ketorolac Tromethamine 15 mg 11/01/23 16:18 11/01/23 17:26 Ketorolac Tromethamine 15 Mg/Ml Vial IM 11/01/23 16:19 15 mg ONCE ONE Administration Medical Decision Making Medical Decision Making MDM Narrative: Old records reviewed and patient assessed in the emergency department with no acute distress noted. Prior to my assessment, Villatoro catheter removed and new catheter placed with good drainage of urine. On my assessment there is greater than 600 mL of cloudy urine in the Villatoro catheter bag. Plan for basic blood work to assess kidney function as well as UA to assess for acute infection. Toradol ordered for complaints of discomfort with good relief of discomfort on reassessment. Urinalysis showing no signs of acute urinary tract infection. Hypokalemia noted on chemistries and replaced with p.o. potassium. Hematology showing stable anemia and leukocytosis with WBCs 14.0. Patient is on a course of Levaquin and educated to follow-up with urology on Friday. Patient is safe for discharge at this time with plan for [id number] Tylenol and/or NSAID such as ibuprofen or naproxen for fever/discomfort with dosing as per packaging. HPI, PE, diagnostics, and plan discussed with patient with no unanswered questions at this time. Strict return precautions given to return to the emergency department with new, worsening, or concerning emergent symptoms. Recommended to follow-up with their primary care provider in addition to Urology in 24-48 hours for further treatment and management. Differential Diagnosis But not limited to UTI, Villatoro catheter replacement, cystitis, pyelonephritis Lab Data 11/01/23 16:34 11/01/23 16:34 Labs: Lab Results 11/01/23 Range/Units 16:34 WBC 14.0 H (4.8-10.8) X10*3/uL RBC 4.70 (4.60-5.80) X10*6/uL Hgb 12.2 L (14.0-18.0) g/dl Hct 37.2 L (42.0-52.0) % MCV 79.1 L (80.0-98.0) fL MCH 26.0 L (27.0-33.0) pg MCHC 32.8 (31.0-36.0) g/dl RDW 15.2 (11.0-16.0) % Plt Count 412 H D (160-400) X10*3/uL MPV 10.8 (9.4-12.4) fL Immature Gran % (Auto) 0.9 H (0.0-0.4) % Neut % (Auto) 75.4 H (45-73) % Lymph % (Auto) 12.0 L (20-40) % [place] % (Auto) 10.6 (2-11) % Eos % (Auto) 0.8 (0-4) % Baso % (Auto) 0.3 (0-2) % Lymph # (Auto) 1.7 (1.2-4.9) X10*3/uL [place] # (Auto) 1.5 H (0.1-1.2) X10*3/uL Eos # (Auto) 0.1 (0.0-0.4) X10*3/uL Baso # (Auto) 0.0 (0.0-0.2) X10*3/uL Abs Immat Gran (auto) 0.13 H (0.00-0.03) X10*3/uL Absolute Neuts (auto) 10.6 H (2.0-8.3) x10*3/uL Absolute Nucleated RBC 0.000 (0.0-0.012) X10*3/uL Nucleated RBC % (auto) 0.0 (0.0-0.2) /100WBC Sodium 142 (135-145) mmol/L Potassium 3.2 L (3.3-5.1) mmol/L Chloride 103 (96-108) mmol/L Carbon Dioxide 28 (22-29) mmol/L Anion Gap 14 (12-20) BUN 12 (9-16) mg/dL Creatinine 0.65 (0.5-1.4) mg/dL Estim Creat Clear Calc 147.6 Estimated GFR > 60 Random Glucose 92 (60-115) mg/dL Calcium 9.4 (8.4-10.2) mg/dL Total Bilirubin 0.3 (0.0-1.0) mg/dL AST 14 (5-37) U/L ALT 20 (0-40) U/L Alkaline Phosphatase 40 (39-117) U/L Total Protein 7.2 (6.5-8.0) g/dL Albumin 3.8 (3.5-5.0) g/dL Urine Color Yellow Urine Appearance Clear Urine pH 7.5 (5.0-9.0) Ur Specific [place] 1.010 (1.005-1.025) Urine Protein 100 (2+) H (Neg-Trace) mg/dL Urine Glucose (UA) Negative (Negative) mg/dL Urine Ketones Negative (Negative) mg/dL Urine Blood Large (3+) H (Negative) Urine Nitrite Negative (Negative) Ur Leukocyte Esterase Trace H (Negative) Urine RBC >20 H (0-2) /HPF Urine WBC 0-5 (0-5) /HPF Ur Squamous Epith Cells 0-2 (0-2) /HPF Urine Bacteria None Seen (None Seen) Hyaline Casts 0-2 (0-2) /LPF Discharge Plan Discharge Clinical Impression: Encounter for Villatoro catheter replacement Patient Disposition: Home, Self-Care Instructions: Villatoro Catheter Placement and Care (ED), Villatoro Catheter Removal (DC) Prescriptions: No Action cholecalciferol (vitamin D3) 50 mcg (2,000 unit) capsule 1 cap PO DAILY multivitamin Tablet 1 tab PO DAILY omega 2-qxz-dcb-fish oil 300 mg (120 mg- 180mg)-1,000 mg capsule 1 cap PO DAILY prednisone 20 mg tablet 20 mg PO BID Qty: 60 0RF baclofen 20 mg tablet 20 mg PO DAILY levofloxacin 500 mg tablet 500 mg PO DAILY 11 Days Qty: 11 0RF baclofen 10 mg tablet 10 mg PO DAILY PRN (Reason: muscle spasm/insomnia) Referrals: Miki Cao MD [Physician] - Print Language: Sinhala
[2023-11-01 16:53] LABS: MANUAL DIFF FLAG NO
[2023-11-01 16:55] LABS: Appearance Urine Clear; Color Urine Yellow; Glucose Urine UA Negative (Negative); Leukocyte Esterase Urine Trace (Negative); Nitrite Urine Negative (Negative); PH 7.5 (5.0-9.0); UMIC TRIGGER UACC YES; Urine Blood Large (3+) (Negative); Urine Ketones Negative (Negative); Urine Protein 100 (2+) mg/dL (Neg-Trace)
[2023-11-01 17:00] LABS: Bacteria Urine None Seen (None Seen); Hyaline Casts Urine 0-2 /LPF (0-2); RBC Urine >20 /HPF (0-2); Squamous Epithelial Cell Urine 0-2 /HPF (0-2); WBC Urine 0-5 /HPF (0-5)
[2023-11-01 17:01] LABS: Basophils Percent Auto 0.3 % (0-2); Eosinophils Absolute Auto 0.1 X10*3/uL (0.0-0.4); Eosinophils Percent Auto 0.8 % (0-4); Hematocrit 37.2 % (42.0-52.0); Hemoglobin 12.2 g/dl (14.0-18.0); Imm Gran Abs Auto 0.13 X10*3/uL (0.00-0.03); Imm Gran Pct Auto 0.9 % (0.0-0.4); Lymphocytes Absolute Auto 1.7 X10*3/uL (1.2-4.9); Mean Corpuscular HGB Conc 32.8 g/dl (31.0-36.0); Mean Corpuscular Volume 79.1 fL (80.0-98.0); Mean Platelet Volume 10.8 fL (9.4-12.4); Monocytes Absolute Auto 1.5 X10*3/uL (0.1-1.2); Monocytes Percent Auto 10.6 % (2-11); Neutrophils Absolute Auto 10.6 x10*3/uL (2.0-8.3); Neutrophils Percent Auto 75.4 % (45-73); Platelet Count 412 X10*3/uL (160-400); Red Cell Distribution Width 15.2 % (11.0-16.0)
[2023-11-01 17:09] LABS: Alanine Aminotransferase 20 U/L (0-40); Albumin Level 3.8 g/dL (3.5-5.0); Alkaline Phosphatase 40 U/L (39-117); Anion Gap 14 (12-20); Aspartate Amino Transferase 14 U/L (5-37); Bilirubin Total 0.3 mg/dL (0.0-1.0); Blood Urea Nitrogen 12 mg/dL (9-16); Calcium 9.4 mg/dL (8.4-10.2); Carbon Dioxide 28 mmol/L (22-29); Chloride 103 mmol/L (96-108); Creatinine Clr Calc Pharmacy 147.6; Estimated Glomerular Filt Rate > 60; Glucose Random 92 mg/dL (60-115); Potassium 3.2 mmol/L (3.3-5.1); Sodium 142 mmol/L (135-145); Total Protein 7.2 g/dL (6.5-8.0)
[2023-11-01] MEDS: Ketorolac Tromethamine 15 MG/ML VIAL IM (17:26)
[2023-11-01 17:27] VITALS: BP 109/66; PULSE 112; RESP 16; O2SAT 99
--- NOTE | 2023-11-01 17:31 | PC.NURSE ---
UPON ARRIVAL, BLADDER SCAN SHOWED 570CCS URINE. MARTIN CATHETER BALLOON HAD DEFLATED AND T/W WATCHED CATHETER FALL OUT OF PT'S PENIS. NEW 16FR REINSERTED WITH GOOD URINARY OUTPUT, PT STATES SIGNIFICANT IMPROVEMENT OF PAIN.
[2023-11-01] MEDS: Potassium Chloride ER 20 MEQ TAB.ER.PRT 40 MEQ PO (18:13)
[2023-11-01 19:10] VITALS: BP 106/66; PULSE 86; RESP 16; TEMP 36.6; O2SAT 97
--- NOTE | 2023-11-01 19:20 | PC.NURSE ---
this rn assumed care of pt. no acute distress noted. pt awaiting ems transport back home.
--- NOTE | 2023-11-01 20:33 | PC.NURSE ---
pt repositioned in bed at this time.
--- NOTE | 2023-11-01 22:49 | PC.NURSE ---
ems at bedside for report
== END 2023-11-01 22:50 | disposition home or self-care (01) ==
PROVIDERS: Nurse Practitioner Family; Emergency Provider Emergency Medicine Emergency Medical Services
DX: R33.9 Retention of urine, unspecified (principal); T83.011A Breakdown (mechanical) of indwelling urethral catheter, initial encounter; Y73.8 Miscellaneous gastroenterology and urology devices associated with adverse incidents, not elsewhere classified; Y92.039 Unspecified place in apartment as the place of occurrence of the external cause
CPT/HCPCS: 36415; 51702; 80053; 81001; 85025; 96372; 99284; J1885

== ENCOUNTER 2023-11-19 14:06 | Outpatient (AMB) | payer OTHER, SELFPAY ==
--- NOTE | 2023-11-19 14:26 | A.OFFVIS_ITS ---
Intake Intake Visit Reasons: SPT change (first) Intake Note: Patient Is Present for Post Op Procedure Done: SP TUBE Placement Urology Med: None Antibiotic Allergy: None Blood Thinner:None Allergies No Known Allergies [No Known Allergies*] Allergy (Verified 11/01/23 15:28) Medication List - Last Reconciled 11/19/23 by Miki Cao MD ascorbic acid (vitamin C) 1 g PO DAILY 90 days baclofen 10 mg PO DAILY PRN baclofen 20 mg PO DAILY cholecalciferol (vitamin D3) 1 cap PO DAILY levofloxacin 500 mg PO DAILY 11 days methenamine hippurate 1 g PO DAILY 90 days multivitamin 1 tab PO DAILY omega 7-occ-xhv-fish oil 300 mg (120 mg- 180mg)-1,000 mg 1 cap PO DAILY prednisone 20 mg PO BID HPI HPI Comments History of Present Illness Details Justus is a pleasant Kazakh-speaking male. He is a patient of Dr. Leslie. He seen for the following urologic conditions - neurogenic bladder Here for 1st change Has had debris on the end of catheter Upsized to a 18 [place]ish Addition of methenamine and vitamin-C Instructions provided for timed emptying One month follow-up with 20 Luxembourgish placement either by office or [facility] Neurogenic bladder History of progressive multiple sclerosis Has been treated with indwelling Villatoro catheter Recurrent urinary tract infections Has had Villatoro catheter indwelling for the past 11 months since November 2022 Catheter changes have been performed with [facility] Medical History 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 Microcytic anemia Multiple sclerosis Headache Surgical History H/O hernia repair Family History Other No family history of coronary artery disease Social History Household Members: Family Housing: Apartment Unable to assess alcohol history related to: Unknown Alcohol intake: never Patient Tobacco Use Status: Never used Tobacco Tobacco use type: Cigarette Cigarettes Per Day: 0.25 Substance Use Type: Marijuana Advance Directives Date on File: 08/21/22 service: No Current occupational status: disabled Review of Systems Const Denies chills and Denies fever(s) Card Reports no additional complaints and Denies syncope Resp Denies cough GI Denies abdominal pain and Denies heartburn Reports as per HPI and Denies change in libido Neuro Denies syncope Psych Denies change in libido Endo Denies change in libido Physical Exam Const General: cooperative, healthy appearing, comfortable and no acute distress Orientation/consciousness: patient oriented x3 HEENT Face and sinus: Yes normal facial exam Mouth: moist mucous membranes Neck Neck: Yes normal visual inspection, Yes full ROM and Yes trachea midline Chest Chest palpation & inspection: normal inspection of the chest Resp Effort & Inspection: normal respiratory effort, able to speak in complete sentences and no respiratory distress GI Inspection: Yes normal to inspection Back/Spine/Pelvis Cervical Spine: normal cervical lordosis Thoracic/Lumbar Spine: thoracic and lumbar spine normal to inspection Skin General skin exam: no rashes or lesions noted Neuro General: patient oriented x3, gait normal, tone normal and moves all extremities Extrem General: Yes normal to inspection and Yes capillary refill normal Office Procedures Bladder/Catheter Procedure Details: Suprapubic tube change Sixteen Luxembourgish catheter removed Has debris blocking [place] Upsized to a 18 [place]bourgish gold Penile catheter removed Irrigation successful 29366-Nxklia of bladder tube Procedure code (CPT) selection complete Assessment & Plan Assessment & Plan (1) Neurogenic urinary bladder disorder: Code(s): N31.9 - Neuromuscular dysfunction of bladder, unspecified (2) Acute UTI: Code(s): N39.0 - Urinary tract infection, site not specified Plan Monthly catheter change Medications: New ascorbic acid (vitamin C) 1 g PO DAILY 90 tabs 1RF 90 days N31.9 - Neuromuscular dysfunction of bladder, unspecified, N39.0 - Urinary tract infection, site not specified methenamine hippurate 1 g PO DAILY 90 tabs 1RF 90 days N31.9 - Neuromuscular dysfunction of bladder, unspecified, N39.0 - Urinary tract infection, site not specified Patient Instructions: Imaging studies, laboratory and physical exam results were discussed and reviewed in detail. No major barriers to patient understanding were identified. An opportunity to ask questions regarding the treatment plan was provided. All questions were answered. The patient expressed understanding and agreement with the above treatment plan. The patient is aware they should contact our office by phone for worsening of their current condition or the appearance of new urologic symptoms. Compliance is encouraged with any medications and followup testing that is ordered. It is a privilege to participate in the urologic care of your patient. If you have any questions or concerns regarding treatment for the above conditions, or other urologic issues, please do not hesitate to contact me. The office telephone contact is [phone]. This note is constructed using voice recognition software. While every effort has been made to ensure accuracy master of ceremonies errors may have been included. Yours sincerely, Dr Miki Cao MD, [facility] - Urology Providers of Expert, Compassionate Care for the Genitourinary System Coding Level of Care Code Est Pt Level 4 (57629) Diagnoses Neurogenic urinary bladder disorder N31.9 Acute UTI N39.0 CPT Codes Bladder/Catheter Procedure - CPT: 50337-Muzguh of bladder tube ([id number])
== END 2023-11-19 15:04 | disposition home or self-care (01) ==
PROVIDERS: PCP Internal Medicine Geriatric Medicine; Visit Provider Urology
DX: N31.9 Neuromuscular dysfunction of bladder, unspecified (principal); N39.0 Urinary tract infection, site not specified
CPT/HCPCS: 51705; 99214

== ENCOUNTER → 2023-11-19 14:06 | Outpatient (BNVA) | payer OTHER, SELFPAY | PROVIDERS: PCP Internal Medicine Geriatric Medicine; Visit Provider Urology | DX: N31.9 Neuromuscular dysfunction of bladder, unspecified (principal); N39.0 Urinary tract infection, site not specified | CPT/HCPCS: 51705; 99212 ==

== ENCOUNTER → 2023-12-16 10:40 | Outpatient (BNVA) | payer OTHER, SELFPAY | PROVIDERS: PCP Internal Medicine Geriatric Medicine; Visit Provider Urology | DX: N31.9 Neuromuscular dysfunction of bladder, unspecified (principal) | CPT/HCPCS: 51705 ==

== ENCOUNTER 2024-01-10 11:07 | Emergency (ER) | payer OTHER, SELFPAY ==
[2024-01-10 11:12] VITALS: BP 156/86; PULSE 100; O2SAT 96
[2024-01-10 11:15] VITALS: BP 143/96; PULSE 102; RESP 16; TEMP 37; O2SAT 96; BMI 25.2
--- NOTE | 2024-01-10 11:24 | ED_ITS ---
HPI - Male Genitourinary General Chief complaint: Urogenital-Male Stated complaint: ABD PAIN Time Seen by Provider: 01/10/24 11:19 Source: patient, EMS, RN notes reviewed and old records reviewed Mode of arrival: EMS Limitations: no limitations History of Present Illness HPI Narrative: 38-year-old male with a history of multiple sclerosis, microcytic anemia, neuromyelitis optica spectrum disorder, neurogenic bladder with suprapubic catheter who presents to the ER for acute onset lower abdominal pain that started last night. His catheter has not been draining since last night. He reports some thicker material leaking from his penis. He denies any fever, chills, N/V/D. He has had some diffuse back pains as well. He states he had his catheter changed last on 12/15. He follows w/ Dr. Cao. Complaint: other (catheter not draining) Onset (ago): hour(s) Duration: progressively worsening Location: abdomen Radiation: penis, right flank and left flank Severity: severe Quality: aching and sharp Relieving factors: none Exacerbating factors: movement Associated symptoms: Reports discharge Related Data Home Medications Medication Instructions Recorded Confirmed cholecalciferol (vitamin D3) 50 1 cap PO DAILY 09/18/21 11/19/23 mcg (2,000 unit) capsule multivitamin 1 tab PO DAILY 08/20/22 11/19/23 omega-3 300 mg-dha 120 mg-epa 180 1 cap PO DAILY 08/20/22 11/19/23 mg-fish oil 1,000 mg capsule baclofen 10 mg tablet 10 mg PO DAILY PRN muscle 04/05/23 11/19/23 spasm/insomnia baclofen 20 mg tablet 20 mg PO DAILY 10/20/23 11/19/23 Previous Rx's Medication Instructions Recorded prednisone 20 mg tablet 20 mg PO BID #60 tabs 10/25/22 levofloxacin 500 mg tablet 500 mg PO DAILY 11 days #11 tabs 10/23/23 ascorbic acid (vitamin C) 1,000 mg 1 g PO DAILY 90 days #90 tabs 11/19/23 tablet methenamine hippurate 1 gram tablet 1 g PO DAILY 90 days #90 tabs 11/19/23 catheter 20 Fr (Villatoro Catheter) #2 ea 01/06/24 catheterization tray (Vlilatoro #2 ea 01/06/24 Catheter Tray) sodium chloride 0.9 % irrigation 1 irrig irrigation ONCE PRN 01/06/24 solution (Sterile Saline) irrigation 1 time a month 500 mls #500 mL syringe disposable, irrigation 60 #2 ea 01/06/24 mL urinary bag (Bardia Urinary #2 ea 01/06/24 Drainage Bag) urinary bag (Urinary Leg Bag) #4 ea 01/06/24 levofloxacin 750 mg tablet 750 mg PO DAILY #6 tabs 01/10/24 Allergies Allergy/AdvReac Type Severity Reaction Status Date / Time No Known Allergies Allergy Verified 11/01/23 15:28 [No Known Allergies*] Review of Systems Review of Systems: Yes all other systems are reviewed and are negative [facility] Past Medical History Medical History 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 Microcytic anemia Multiple sclerosis Headache Surgical History H/O hernia repair Family History Family History Other No family history of coronary artery disease Social History Social History Household Members: Family Housing: Apartment Unable to assess alcohol history related to: Unknown Alcohol intake: never Patient Tobacco Use Status: Never used Tobacco Tobacco use type: Cigarette Cigarettes Per Day: 0.25 Substance Use Type: Marijuana Advance Directives: Yes Advance Directives on File: Yes Advance Directives Date on File: 08/21/22 service: No Current occupational status: disabled Physical Exam Vital Signs: Vital Signs: Last Vital Signs Temp 98.6 F 01/10/24 11:15 Pulse 102 H 01/10/24 11:15 Resp 16 01/10/24 11:15 BP 143/96 H 01/10/24 11:15 Pulse Ox 96 01/10/24 11:15 O2 Del Method Room Air 01/10/24 11:15 BMI result Body Mass Index 25.2 Appearance: Alert. Oriented X3. No acute distress. Head: normocephalic, atraumatic. Eyes: Pupils equal, round and reactive to light. ENT: Pharynx normal. No tonsillar swelling or exudate. Neck: Normal inspection. Neck supple. CVS: Normal heart rate and rhythm. Pulses normal. Respiratory: No respiratory distress. Breath sounds normal. Abdomen: distended w/ tenderness from umbilicus and lower abdomen. SBC in place with thick sediment +BS x4 Skin: Skin warm and dry. Normal skin color. Normal skin turgor. No rashes. Extremities: No lower extremity edema. No joint swelling. Neuro/psych: Oriented X 3. No motor deficit. No sensory deficit. CN II-XII intact. Normal speech and cognition. Medications Administered Discontinued Medications Generic Name Dose Route Start Last Admin Trade Name Elijah PRN Reason Stop Dose Admin Levofloxacin 750 mg 01/10/24 12:21 01/10/24 13:27 Levofloxacin 750 Mg Tablet PO 01/10/24 12:22 750 mg ONCE ONE Administration Lidocaine HCl 10 ml 01/10/24 11:24 01/10/24 11:34 Lidocaine Hcl 2 % Urojet 10 Ml Jel.Pf.Juan TOPICAL 01/10/24 11:25 10 ml ONCE ONE Administration Oxycodone HCl 5 mg 01/10/24 12:21 01/10/24 13:26 Oxycodone Hcl Immed Release 5 Mg Tablet PO 01/10/24 12:22 5 mg ONCE ONE Administration Medical Decision Making Medical Decision Making MDM Narrative: 38-year-old bed-bound male with history of multiple sclerosis, neurogenic bladder with suprapubic catheter who presents to the ER for abdominal pain, distention and clogged urinary catheter. The catheter has significant sediment and is leaking foul-smelling, cloudy urine. On arrival to the ER patient is afebrile. He has mild tachycardia with heart rate 102, most likely related to pain. His suprapubic catheter was exchanged in sterile fashion. Urine that returned was consistent with infection. 1200 cc drained from the bladder. Patient feels much better. Catheter is draining appropriately at this time. Will treat for infection. He has a history of pansensitive Pseudomonas. Will start on Levaquin. Will have him follow up with urologist. Patient is stable for discharge home with oral antibiotics, frequent flushing of the Villatoro catheter at home to prevent recurrent clogging. Return precautions were discussed. Stable for DC Differential Diagnosis Differential Diagnoses: The differential diagnosis associated with the presentation includes Acute UTI, pyelonephritis, kidney stone, malfunctioning urinary catheter, misplaced urinary catheter, bladder perforation Admission/Observation Consideration of admission/observation: Escalation of care including admission/observation considered Lab Data Labs: Lab Results 01/10/24 Range/Units 13:25 Urine Color DK YELLOW Urine Appearance Cloudy Urine pH 7.0 (5.0-9.0) Ur Specific [place] 1.020 (1.005-1.025) Urine Protein 100 (2+) H (Neg-Trace) mg/dL Urine Glucose (UA) Negative (Negative) mg/dL Urine Ketones Trace (Negative) mg/dL Urine Blood Large (3+) H (Negative) Urine Nitrite Positive H (Negative) Ur Leukocyte Esterase Large (3+) H (Negative) Independent Historian Clinical information obtained from an independent historian. History obtained from or confirmed by: EMS External Record Review External record reviewed: Office record, Outpatient record, Prior outpatient labs and Prior outpatient radiology Prescription Management I considered prescription management with: Pain Medication and Antibiotic Chronic Conditions Patient?s care impacted by: Other (Multiple sclerosis) Procedures Catheter Insertion (Urinary) Date of insertion: 01/10/24 Time of insertion: 12:25 Reason for placing: Yes Reason for placing indwelling catheter: Prolonged immobilization Bladder scan/ultrasound used before catheterization: No Antiseptic solution prep: Povidone-Iodine Topical anesthesia used: Yes Catheter type/location: Suprapubic Size (Turkmen): 20 Catheter balloon size (mL): 10 Catheter balloon amount: 10 Results: successfully catheterized-immediate flow Procedure performed: without complications Critical Care Time Critical Care Time Critical Care Time: No Discharge Plan Discharge Clinical Impression: Catheter-associated urinary tract infection Qualifiers: Indwelling urinary catheter type: cystostomy catheter Encounter type: initial encounter Qualified Code(s): T83.510A - Infection and inflammatory reaction due to cystostomy catheter, initial encounter Patient Disposition: Home, Self-Care Instructions: Catheter-associated Urinary Tract Infection (ED) Additional Instructions: Your catheter was clogged due to infection. You were given 1st dose of antibiotics today in the ER. Take the next dose tomorrow morning and complete a 7 day course. It was sent to [facility] on [address] Make sure you are drinking plenty of fluids. Recommend flushing the Catheter every 8 hours to make sure it does not get clogged again. Follow up with your Urologist. If you develop new or worsening symptoms call 911 or come back to the ER for further evaluation. Prescriptions: New levofloxacin 750 mg tablet 750 mg PO DAILY Qty: 6 0RF No Action (DME) Urinary Leg Bag Misc See Rx Instructions .Route Qty: 4 5RF Rx Instructions: As directed, 4 per month (DME) Villatoro Catheter 20 Fr misc See Rx Instructions .Route Qty: 2 5RF Rx Instructions: As directed, 2 per month (DME) Villatoro Catheter Tray Tray See Rx Instructions .Route Qty: 2 5RF Rx Instructions: As directed 2 per month sodium chloride [Sterile Saline] 0.9 % solution 1 irrig irrigation ONCE PRN (Reason: irrigation 1 time a month 500 mls) Qty: 500 5RF (DME) syringe disposable, irrigation 60 mL syringe See Rx Instructions .Route Qty: 2 5RF Rx Instructions: As directed 2 per month (DME) Bardia Urinary Drainage Bag Misc See Rx Instructions .Route Qty: 2 5RF Rx Instructions: As directed, 2 per month cholecalciferol (vitamin D3) 50 mcg (2,000 unit) capsule 1 cap PO DAILY multivitamin Tablet 1 tab PO DAILY omega [id number]-fish oil 300 mg (120 mg- 180mg)-1,000 mg capsule 1 cap PO DAILY prednisone 20 mg tablet 20 mg PO BID Qty: 60 0RF baclofen 20 mg tablet 20 mg PO DAILY levofloxacin 500 mg tablet 500 mg PO DAILY 11 Days Qty: 11 0RF baclofen 10 mg tablet 10 mg PO DAILY PRN (Reason: muscle spasm/insomnia) ascorbic acid (vitamin C) 1,000 mg tablet 1 g PO DAILY 90 Days Qty: 90 1RF methenamine hippurate 1 gram tablet 1 g PO DAILY 90 Days Qty: 90 1RF
[2024-01-10] MEDS: Lidocaine HCl 2 % Urojet 10 ML JEL.PF.APP TOPICAL (11:34)
--- NOTE | 2024-01-10 12:21 | PC.NURSE ---
patient had suprapubic cath changed by ED provider, patient has 20 fr with 10 cc balloon. patient tolerated well, urine collected for ua/culture.
[2024-01-10] MEDS: oxyCODONE HCl Immed Release 5 MG TABLET PO (13:26)
[2024-01-10] MEDS: levoFLOXacin 750 MG TABLET PO (13:27)
[2024-01-10 13:52] LABS: Appearance Urine Cloudy; Color Urine DK YELLOW; Glucose Urine UA Negative (Negative); Leukocyte Esterase Urine Large (3+) (Negative); Nitrite Urine Positive (Negative); UMIC TRIGGER UACC YES; Urine Blood Large (3+) (Negative); Urine Ketones Trace mg/dL (Negative); Urine Protein 100 (2+) mg/dL (Neg-Trace)
[2024-01-10 13:58] VITALS: BP 131/78; PULSE 93; RESP 16; TEMP 36.9; O2SAT 98
[2024-01-10 14:07] LABS: Bacteria Urine 1+ (None Seen); Hyaline Casts Urine 0-2 /LPF (0-2); RBC Urine >20 /HPF (0-2); Squamous Epithelial Cell Urine 0-2 /HPF (0-2); UACC Culture Trigger YES; WBC Urine >50 /HPF (0-5)
== END 2024-01-10 14:05 | disposition home or self-care (01) ==
PROVIDERS: Physician Assistant; Emergency Provider Student in an Organized Health Care Education/Training Program; PCP Internal Medicine Geriatric Medicine
DX: T83.510A Infection and inflammatory reaction due to cystostomy catheter, initial encounter (principal); Y84.6 Urinary catheterization as the cause of abnormal reaction of the patient, or of later complication, without mention of misadventure at the time of the procedure; Y92.9 Unspecified place or not applicable; N31.9 Neuromuscular dysfunction of bladder, unspecified; G35 Multiple sclerosis
CPT/HCPCS: 51705; 81001; 87086; 99283

== ENCOUNTER 2024-02-21 11:36 | Inpatient (IN) | payer OTHER, SELFPAY ==
--- NOTE | ~2024-02-21 | CT_ITS ---
EXAMINATION: CT ABDOMEN AND PELVIS WITHOUT CONTRAST CLINICAL INFORMATION: Hematuria COMPARISON: CT abdomen and pelvis 10/20/2023 TECHNIQUE: Multidetector volumetric imaging was performed from the superior aspect of the liver through the pubic symphysis. Sagittal and coronal reformatted images were obtained on the technologist's workstation. This CT examination was performed using dose optimization techniques as appropriate, variously including the following: *Automated exposure control *Adjustment of mA and/or kV according to patient size (this includes techniques or standardized protocols for targeted exams where dose is matched to indication/reason for exam; i.e. extremities or head) *Use of iterative reconstruction technique DLP: 649 mGy-cm FINDINGS: LUNG BASES: The visualized lung bases are unremarkable. LIVER, GALLBLADDER, AND BILIARY TREE: The liver is normal in size, shape, and attenuation. No focal hepatic lesion or biliary ductal dilatation is present. The gallbladder is unremarkable with no evidence of radiopaque gallstones, gallbladder wall thickening, or obvious pericholecystic inflammatory changes. PANCREAS: Unremarkable. SPLEEN: Unremarkable. ADRENAL GLANDS: Unremarkable. KIDNEYS AND URETERS: The kidneys are normal in size, shape, and attenuation. No hydronephrosis, hydroureter, or calculi seen. No perinephric stranding. BLADDER: Suprapubic catheter in place. The bladder is decompressed. GASTROINTESTINAL TRACT: The large and small bowel are normal in caliber. The stomach and duodenum appear normal. Moderate stool burden. ABDOMINAL WALL: No significant hernia is appreciated. LYMPH NODES: Normal. VASCULAR: Unremarkable. PELVIC VISCERA: Unremarkable. OSSEOUS STRUCTURES: Mild multilevel degenerative changes of the lumbar spine. CT/CT abdomen pelvis wo IV con IMPRESSION: 1. No nephrolithiasis. 2. Suprapubic tube in place decompressing the bladder. Fleischner guidelines were followed.
[2024-02-21 11:49] VITALS: BP 142/84; BP 150/92; PULSE 81; PULSE 88; RESP 16; TEMP 36.8; O2SAT 95; BMI 28.0
--- NOTE | 2024-02-21 12:38 | ED.MALEGU ---
HPI - Male Genitourinary General Chief complaint: Urogenital-Male Stated complaint: ABD PAIN NAUSEA Time Seen by Provider: 02/21/24 11:59 Source: patient and EMS Mode of arrival: EMS Limitations: no limitations History of Present Illness HPI Narrative: Patient is a 38-year-old male with past medical history multiple sclerosis, microcytic anemia, neuromyelitis optica spectrum disorder, neurogenic bladder with suprapubic catheter who presents emergency department for evaluation of lower abdominal pain, and concern that his catheter is not draining appropriately. Reports that it was last draining yesterday night. Complains of odorous urine. Does not recall the date of last catheter change. Denies fevers, chills, nausea, vomiting flank/back pain. Related Data Home Medications ?Medication ?Instructions ?Recorded ?Confirmed cholecalciferol (vitamin D3) 50 1 cap PO DAILY 09/18/21 11/19/23 mcg (2,000 unit) capsule multivitamin 1 tab PO DAILY 08/20/22 11/19/23 omega-3 300 mg-dha 120 mg-epa 180 1 cap PO DAILY 08/20/22 11/19/23 mg-fish oil 1,000 mg capsule baclofen 10 mg tablet 10 mg PO DAILY PRN muscle 04/05/23 02/21/24 spasm/insomnia baclofen 20 mg tablet 20 mg PO DAILY 10/20/23 02/21/24 Previous Rx's ?Medication ?Instructions ?Recorded prednisone 20 mg tablet 20 mg PO BID #60 tabs 10/25/22 levofloxacin 500 mg tablet 500 mg PO DAILY 11 days #11 tabs 10/23/23 ascorbic acid (vitamin C) 1,000 mg 1 g PO DAILY 90 days #90 tabs 11/19/23 tablet methenamine hippurate 1 gram tablet 1 g PO DAILY 90 days #90 tabs 11/19/23 catheter 20 Fr (Villatoro Catheter) #2 ea 01/06/24 catheterization tray (Villatoro #2 ea 01/06/24 Catheter Tray) sodium chloride 0.9 % irrigation 1 irrig irrigation ONCE PRN 01/06/24 solution (Sterile Saline) irrigation 1 time a month 500 mls #500 mL syringe disposable, irrigation 60 #2 ea 01/06/24 mL urinary bag (Bardia Urinary #2 ea 01/06/24 Drainage Bag) urinary bag (Urinary Leg Bag) #4 ea 01/06/24 levofloxacin 750 mg tablet 750 mg PO DAILY #6 tabs 01/10/24 levofloxacin 750 mg tablet 750 mg PO DAILY #6 tabs 02/21/24 Allergies Allergy/AdvReac Type Severity Reaction Status Date / Time No Known Allergies Allergy Verified 02/21/24 11:51 [No Known Allergies*] Review of Systems Review of Systems: Yes all other systems are reviewed and are negative [facility] Past Medical History Attestation statement: The following information was validated with the patient. 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 Microcytic anemia Multiple sclerosis Headache Surgical History H/O hernia repair Family History Family History Other No family history of coronary artery disease Social History Social History Household Members: Family Housing: Apartment Unable to assess alcohol history related to: Unknown Alcohol intake: never Patient Tobacco Use Status: Never used Tobacco Tobacco use type: Cigarette Cigarettes Per Day: 0.25 Smoked in Last 30 Days: No Use of substances other than those prescribed or required for medical reasons: No Substance Use Type: Marijuana Advance Directives: Yes Advance Directives on File: Yes Advance Directives Date on File: 08/21/22 Do you have a plan to hurt others: No Plan service: No Current occupational status: disabled Physical Exam Vital Signs: Vital Signs: Last Vital Signs Temp 99.2 F 02/21/24 19:19 Pulse 110 H 02/21/24 19:19 Resp 18 02/21/24 19:19 BP 130/78 02/21/24 19:19 Pulse Ox 96 02/21/24 19:19 O2 Del Method Room Air 02/21/24 19:19 BMI result Body Mass Index 28.0 Appearance: Alert.?Oriented to person, place and time. No acute distress.?Normal affect. Eyes: Pupils equal, round and reactive to light.? ENT: Pharynx normal.?? Neck: Normal inspection.? Neck supple.?? CVS: Heart sounds normal. Normal heart rate and rhythm.? Pulses normal.?? Respiratory: No respiratory distress.? Lung sounds clear to auscultation bilaterally?? Abdomen: Soft with tenderness upon palpation from May mid lower abdomen. Suprapubic catheter in place with thick sediment present in tubing. Normoactive bowel sounds. ?? Skin: Skin warm and dry.? Normal skin color.?? Extremities: No lower extremity edema.? Neuro: Moves all extremities spontaneously. Sensation intact bilaterally. Course Reevaluation(s) Reevaluation #1: Suprapubic catheter change under sterile technique as per procedural portion of this note, draining on cloudy slight pink tinged urine. Approximately 30 minutes later advised by nursing staff that catheter was draining dark red urine with clots present. Plan to irrigate bladder with 200 cc normal saline with resultant drainage to determine whether this clears. Urinalysis concerning for acute infection versus colonization, given his history will treat with levofloxacin pending cultures. Appearing clears and no further gabby hematuria, anticipate that patient will be stable for discharge home, prescription for levofloxacin sent to pharmacy. Signed out to Raul SAHU Time: 16:40 Reevaluation #2: Patient's urine has been dark red since I received sign-out. I ordered labs and a CT scan. The renal function is baseline. The patient had a CT scan that did not show any significant abnormalities. The urine continues to drain but there are dark red clots present. Will discuss with urology Time: 19:37 Reevaluation #3: Discussed with Dr. Fernandes who agrees with an overnight observation due to the significant hematuria with clots as well as UTI. The patient has received oral Levaquin. Will discuss with the hospitalist for admission. After discussion with the hospitalist, will add blood cultures and ceftriaxone due to the high white count Time: 19:43 Medications Administered Generic Name Dose Route Start Last Admin Trade Name Freq PRN Reason Stop Dose Admin Baclofen 20 mg 02/21/24 16:00 02/21/24 16:38 Baclofen 20 Mg Tablet PO 20 mg DAILY LALO Administration Methenamine Hippurate 1 gm 02/21/24 16:00 02/21/24 16:38 Methenamine Hippurate 1 Gm Tablet PO 1 gm DAILY LALO Administration Prednisone 20 mg 02/21/24 21:00 02/21/24 16:38 Prednisone 20 Mg Tablet PO 20 mg BID LALO Administration Discontinued Medications Generic Name Dose Route Start Last Admin Trade Name Elijah PRN Reason Stop Dose Admin Levofloxacin 750 mg 02/21/24 15:30 02/21/24 16:38 Levofloxacin 750 Mg Tablet PO 02/21/24 15:31 750 mg ONCE ONE Administration Lidocaine HCl 10 ml 02/21/24 12:13 02/21/24 15:47 Lidocaine Hcl 2 % Urojet 10 Ml Jel.Pf.Juan TOPICAL 02/21/24 12:14 10 ml ONCE ONE Administration Oxycodone HCl 5 mg 02/21/24 15:30 02/21/24 16:38 Oxycodone Hcl Immed Release 5 Mg Tablet PO 02/21/24 15:31 5 mg ONCE ONE Administration Medical Decision Making Medical Decision Making [facility] Narrative: Patient is a 38-year-old male past medical history multiple sclerosis, microcytic anemia, neuromyelitis optica spectrum disorder, neurogenic bladder with suprapubic catheter presenting to the ER for evaluation of abdominal pain and concern for clogged urinary catheter. Catheter tubing noted to have significant sediment, foul smelling, small amount of cloudy urine noted in drainage bag, small amount of purulence at the catheter insertion site. He is afebrile and without tachycardia. Differential Diagnosis Differential Diagnoses: The differential diagnosis associated with the presentation includes (Acute UTI, pyelonephritis, malfunctioning catheter, bladder perforation) Admission/Observation Consideration of admission/observation: Escalation of care including admission/observation considered (See narrative above) Consult Healthcare Provider Management of the patient was discussed with: Microbiology Technologist (Dr Fernandes) Lab Data 02/21/24 17:47 02/21/24 17:47 Labs: Lab Results 02/21/24 02/21/24 Range/Units 14:09 17:47 WBC 23.0 H (4.8-10.8) X10*3/uL RBC 5.15 (4.60-5.80) X10*6/uL Hgb 13.5 L (14.0-18.0) g/dl Hct 41.2 L (42.0-52.0) % MCV 80.0 (80.0-98.0) fL MCH 26.2 L (27.0-33.0) pg MCHC 32.8 (31.0-36.0) g/dl RDW 16.4 H (11.0-16.0) % Plt Count 201 D (160-400) X10*3/uL MPV 12.1 (9.4-12.4) fL Immature Gran % (Auto) 0.7 H (0.0-0.4) % Neut % (Auto) 81.5 H (45-73) % Lymph % (Auto) 6.4 L (20-40) % Wise % (Auto) 10.4 (2-11) % Eos % (Auto) 0.8 (0-4) % Baso % (Auto) 0.2 (0-2) % Lymph # (Auto) 1.5 (1.2-4.9) X10*3/uL Wise # (Auto) 2.4 H (0.1-1.2) X10*3/uL Eos # (Auto) 0.2 (0.0-0.4) X10*3/uL Baso # (Auto) 0.0 (0.0-0.2) X10*3/uL Abs Immat Gran (auto) 0.16 H (0.00-0.03) X10*3/uL Absolute Neuts (auto) 18.7 H (2.0-8.3) x10*3/uL Absolute Nucleated RBC 0.000 (0.0-0.012) X10*3/uL Nucleated RBC % (auto) 0.0 (0.0-0.2) /100WBC Smear Tech's Comments VERIFIED Sodium 144 (135-145) mmol/L Potassium 3.5 (3.3-5.1) mmol/L Chloride 106 (96-108) mmol/L Carbon Dioxide 27 (22-29) mmol/L Anion Gap 15 (12-20) BUN 22 H (9-16) mg/dL Creatinine 0.68 (0.5-1.4) mg/dL Estim Creat Clear Calc 153.6 Estimated GFR > 60 Random Glucose 96 (60-115) mg/dL Calcium 9.5 (8.4-10.2) mg/dL Urine Color Other A Urine Appearance Hazy Urine pH 8.5 (5.0-9.0) Ur Specific [place] 1.015 (1.005-1.025) Urine Protein 100 (2+) H (Neg-Trace) mg/dL Urine Glucose (UA) Negative (Negative) mg/dL Urine Ketones Negative (Negative) mg/dL Urine Blood Large (3+) H (Negative) Urine Nitrite Negative (Negative) Ur Leukocyte Esterase Large (3+) H (Negative) Urine RBC >20 H (0-2) /HPF Urine WBC >50 H (0-5) /HPF Ur Squamous Epith Cells 0-2 (0-2) /HPF Urine Bacteria 4+ (None Seen) Hyaline Casts 0-2 (0-2) /LPF Independent Historian Clinical information obtained from an independent historian. History obtained from or confirmed by: EMS External Record Review External record reviewed: Outpatient record Procedures Catheter Insertion (Urinary) Date of insertion: 02/21/24 Time of insertion: 12:30 Reason for placing: Yes Reason for placing indwelling catheter: Other (Neurogenic bladder chronic suprapubic catheter) Patient has the following: history of catheter associated urinary tract infection Bladder scan/ultrasound used before catheterization: Yes Estimated amount of urine (mLs): 684 Antiseptic solution prep: Povidone-Iodine Topical anesthesia used: Yes Catheter type/location: Suprapubic Size (Albanian): 20 Catheter balloon size (mL): 5 Catheter balloon amount: 5 Results: successfully catheterized-immediate flow Discharge Plan Discharge Clinical Impression: Catheter-associated urinary tract infection Qualifiers: Indwelling urinary catheter type: cystostomy catheter Encounter type: initial encounter Qualified Code(s): T83.510A - Infection and inflammatory reaction due to cystostomy catheter, initial encounter Patient Disposition: Admitted As Inpatient Additional Instructions: Your suprapubic catheter was changed in the emergency department today. Received the first dose of antibiotic in the emergency department today, a prescription for the remainder was sent to your pharmacy please complete the entire course. Follow-up with your primary care provider. Return back to emergency department any new or worsening symptoms or concerns. Print Language: Romanian
[2024-02-21 15:00] LABS: Appearance Urine Hazy; Color Urine Other; Glucose Urine UA Negative (Negative); PH 8.5 (5.0-9.0); Specific Gravity - Urine 1.015 (1.005-1.025); Urine Blood Large (3+) (Negative); Urine Ketones Negative (Negative); Urine Protein 100 (2+) mg/dL (Neg-Trace)
[2024-02-21 15:01] LABS: Leukocyte Esterase Urine Large (3+) (Negative); Nitrite Urine Negative (Negative); UMIC TRIGGER UACC YES
[2024-02-21 15:02] LABS: Bacteria Urine 4+ (None Seen); Hyaline Casts Urine 0-2 /LPF (0-2); RBC Urine >20 /HPF (0-2); Squamous Epithelial Cell Urine 0-2 /HPF (0-2); UACC Culture Trigger YES; WBC Urine >50 /HPF (0-5)
[2024-02-21 15:42] VITALS: BP 137/71; PULSE 103; RESP 18; O2SAT 95
[2024-02-21] MEDS: Lidocaine HCl 2 % Urojet 10 ML JEL.PF.APP TOPICAL (15:47)
[2024-02-21 16:00] VITALS: BP 148/85; PULSE 97; TEMP 36.8; O2SAT 97
[2024-02-21] MEDS: Baclofen 20 MG TABLET PO (16:38)
[2024-02-21] MEDS: oxyCODONE HCl Immed Release 5 MG TABLET PO (16:38)
[2024-02-21] MEDS: levoFLOXacin 750 MG TABLET PO (16:38)
[2024-02-21] MEDS: predniSONE 20 MG TABLET PO (16:38)
[2024-02-21] MEDS: Methenamine Hippurate 1 GM TABLET PO (16:38)
[2024-02-21 17:54] LABS: Basophils Percent Auto 0.2 % (0-2); Eosinophils Absolute Auto 0.2 X10*3/uL (0.0-0.4); Eosinophils Percent Auto 0.8 % (0-4); Hematocrit 41.2 % (42.0-52.0); Hemoglobin 13.5 g/dl (14.0-18.0); Imm Gran Abs Auto 0.16 X10*3/uL (0.00-0.03); Imm Gran Pct Auto 0.7 % (0.0-0.4); Lymphocytes Absolute Auto 1.5 X10*3/uL (1.2-4.9); Lymphocytes Percent Auto 6.4 % (20-40); MANUAL DIFF FLAG SCAN; Mean Corpuscular HGB Conc 32.8 g/dl (31.0-36.0); Mean Corpuscular Hemoglobin 26.2 pg (27.0-33.0); Mean Platelet Volume 12.1 fL (9.4-12.4); Monocytes Absolute Auto 2.4 X10*3/uL (0.1-1.2); Monocytes Percent Auto 10.4 % (2-11); Neutrophils Absolute Auto 18.7 x10*3/uL (2.0-8.3); Neutrophils Percent Auto 81.5 % (45-73); Platelet Count 201 X10*3/uL (160-400); Red Blood Count 5.15 X10*6/uL (4.60-5.80); Red Cell Distribution Width 16.4 % (11.0-16.0); SCAN SMEAR FLAG 1
[2024-02-21 18:06] LABS: Anion Gap 15 (12-20); Blood Urea Nitrogen 22 mg/dL (9-16); Calcium 9.5 mg/dL (8.4-10.2); Carbon Dioxide 27 mmol/L (22-29); Chloride 106 mmol/L (96-108); Creatinine Clr Calc Pharmacy 153.6; Estimated Glomerular Filt Rate > 60; Glucose Random 96 mg/dL (60-115); Potassium 3.5 mmol/L (3.3-5.1); Sodium 144 mmol/L (135-145)
[2024-02-21 18:35] LABS: SLIDE REVIEW VERIFIED
--- NOTE | 2024-02-21 18:59 | PC.NURSE ---
per jane Ramos to give one dose of 20mg Prednisone at 1500 and his HS dose at 2100
[2024-02-21 19:19] VITALS: BP 130/78; PULSE 110; RESP 18; TEMP 37.3; O2SAT 96
--- NOTE | 2024-02-21 19:21 | MHC.EDTECH ---
This tech assumed care for this patient at 19:00. Introduced myself to the patient, Vitals obtained. Patient is resting comfortably, No complaints at this time.
[2024-02-21] MEDS: cefTRIAXone sodium 1 GM in 0.9 % Sodium Chloride 50 ML IV (20:13)
--- NOTE | 2024-02-21 20:13 | PC.NURSE ---
this rn assumed care of pt, pt resting in stretcher, no acute distress noted. 20G placed in left, hand, antibiotics administered at this time. pt has suprapubic burciaga in place prior to arrival. vss; call villar within reach. per pt allowed water, pt given water at bedside.
--- NOTE | 2024-02-21 20:16 | P.HPHOSP_ITS ---
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 Patient noticed on the day of presentation that his catheter is not draining appropriately. Also had generalized lower abdominal discomfort, constant, nonradiating. Noticed change in odor and color of urine. No fever, chills, nausea, vomiting, chest discomfort, palpitations, shortness of breath, changes in bowel habits. In the emergency department, suprapubic catheter was replaced. Hematuria was noticed and urine concerning for UTI. Abdominal discomfort resolved after replacing suprapubic catheter. Patient with white count 23 WBC Review of Systems 2 Constitutional: Constitutional: Reports no additional constitutional complaints Cardiovascular: Cardiovascular: Reports no additional cardiovascular complaints Respiratory: Respiratory: Reports no additional respiratory complaints Gastrointestinal: Gastrointestinal: Reports no additional gastrointestinal complaints Genitourinary: Genitourinary: Reports hematuria [facility] Medical History 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 Microcytic anemia Multiple sclerosis Headache Family History Other No family history of coronary artery disease Surgical History H/O hernia repair Social History Household Members: Family Housing: Apartment Unable to assess alcohol history related to: Unknown Alcohol intake: never Patient Tobacco Use Status: Never used Tobacco Tobacco use type: Cigarette Cigarettes Per Day: 0.25 Smoked in Last 30 Days: No Use of substances other than those prescribed or required for medical reasons: No Substance Use Type: Marijuana Advance Directives: Yes Advance Directives on File: Yes Advance Directives Date on File: 08/21/22 Do you have a plan to hurt others: No Plan service: No Current occupational status: disabled Meds Allergies Allergy/AdvReac Type Severity Reaction Status Date / Time No Known Allergies Allergy Verified 02/21/24 11:51 [No Known Allergies*] Active Medications: Current Medications Baclofen (Baclofen 20 Mg Tablet) 20 mg PO DAILY [facility] Last Admin: 02/21/24 16:38 Dose: 20 mg Ceftriaxone Sodium 1 gm/ (Sodium Chloride) 50 mls @ 100 mls/hr IV ONCE ONE Stop: 02/21/24 20:17 Last Admin: 02/21/24 20:13 Dose: 100 mls/hr Methenamine Hippurate (Methenamine Hippurate 1 Gm Tablet) 1 gm PO DAILY [facility] Last Admin: 02/21/24 16:38 Dose: 1 gm Prednisone (Prednisone 20 Mg Tablet) 20 mg PO BID [facility] Last Admin: 02/21/24 16:38 Dose: 20 mg Home Medications ?Medication ?Instructions ?Recorded ?Confirmed ?Last Taken ?Type cholecalciferol (vitamin D3) 50 1 cap PO DAILY 09/18/21 11/19/23 10/20/22 History mcg (2,000 unit) capsule multivitamin 1 tab PO DAILY 08/20/22 11/19/23 10/19/22 History omega-3 300 mg-dha 120 mg-epa 180 1 cap PO DAILY 08/20/22 11/19/23 10/19/22 History mg-fish oil 1,000 mg capsule baclofen 10 mg tablet 10 mg PO DAILY PRN muscle 04/05/23 02/21/24 02/20/24 21:00 History spasm/insomnia baclofen 20 mg tablet 20 mg PO DAILY 10/20/23 02/21/24 02/20/24 21:00 History Physical Exam 2 Vital Signs and Narrative: Vital Signs: Last Vital Signs Temp 99.2 F 02/21/24 19:19 Pulse 110 H 02/21/24 19:19 Resp 18 02/21/24 19:19 BP 130/78 02/21/24 19:19 Pulse Ox 96 02/21/24 19:19 O2 Del Method Room Air 02/21/24 19:19 BMI result Body Mass Index 28.0 Middle-aged male lying in bed in no distress Neck supple, no JVD Regular rate and rhythm, S1-S2 heard Regular breath sounds bilaterally, no wheezing or crackles appreciated Abdomen soft nontender, no guarding, no rigidity, catheter bag with reddish urine Patient is awake, alert and oriented to self, place, time and person ; spasticity present Psych: Normal mood No pedal edema Results Labs 02/21/24 17:47 02/21/24 17:47 Labs: Laboratory Results - last 24 hr 02/21/24 02/21/24 14:09 17:47 MCV 80.0 MCH 26.2 L MCHC 32.8 RDW 16.4 H Plt Count 201 D MPV 12.1 Immature Gran % (Auto) 0.7 H Neut % (Auto) 81.5 H Lymph % (Auto) 6.4 L Ware % (Auto) 10.4 Eos % (Auto) 0.8 Baso % (Auto) 0.2 Lymph # (Auto) 1.5 Ware # (Auto) 2.4 H Eos # (Auto) 0.2 Baso # (Auto) 0.0 Abs Immat Gran (auto) 0.16 H Absolute Neuts (auto) 18.7 H Absolute Nucleated RBC 0.000 Nucleated RBC % (auto) 0.0 Smear Tech's Comments VERIFIED Anion Gap 15 Estim Creat Clear Calc 153.6 Estimated GFR > 60 Random Glucose 96 Calcium 9.5 Urine Color Other A Urine Appearance Hazy Urine pH 8.5 Ur Specific Whitt 1.015 Urine Protein 100 (2+) H Urine Glucose (UA) Negative Urine Ketones Negative Urine Blood Large (3+) H Urine Nitrite Negative Ur Leukocyte Esterase Large (3+) H Urine RBC >20 H Urine WBC >50 H Ur Squamous Epith Cells 0-2 Urine Bacteria 4+ Hyaline Casts 0-2 Imaging Radiologist's Impressions: Impressions Abdomen/Pelvis CT 02/21/24 17:41 IMPRESSION: 1. No nephrolithiasis. 2. Suprapubic tube in place decompressing the bladder. Fleischner guidelines were followed. 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 #. Sepsis due to acute complicated UTI: Resuscitated with IV crystalloids. Lactic acid and blood culture obtained new reviewed previous urine culture, initiating empiric IV levofloxacin. Follow urine cultures #. Hematuria, likely in the setting of above: P.r.n. manual irrigation. Urology consulted #. Neuromyelitis optica spectrum disorder: On prednisone and baclofen Med rec pending DVT prophylaxis: Mechanical Full code Admit as inpatient and will require two night minimum hospital stay for IV antibiotics (as above), which is not possible in a lesser acute setting. Specialist consult pending Quality Stroke Does the patient have a stroke diagnosis?: No VTE Prior VTE?: No VTE Risk Level:: Medical - moderate - high VTE Device Contraindication: N/A - Device Ordered VTE Drug Contraindication: Treatment Not Indicated
--- NOTE | 2024-02-21 20:18 | MHC.EDTECH ---
@ 20:15 Patient unable to sign belonging list. RN signed with penelope after reviewing with patient.
[2024-02-21 20:20] LABS: Lactic Acid 0.7 mmol/L (0.5-2.0)
--- NOTE | 2024-02-21 20:25 | MHC.EDTECH ---
@20:25 Got the patient more water per PT request. Boosted and repositioned. Patient is laying down, comfortably with no concerns at this time, call villar in hand.
[2024-02-21] MEDS: levoFLOXacin/D5W 750 MG/150 ML PIGGYBACK 100 MG IV (21:14)
[2024-02-21] MEDS: 0.9 % Sodium Chloride 1,000 ML 999 ML IV (21:15)
--- NOTE | 2024-02-21 22:01 | PC.NURSE ---
pt placed in hospital bed for comfort at this time, pt reports he feels much better.
[2024-02-21 22:17] VITALS: BP 108/68; PULSE 93; RESP 18; TEMP 36.5; O2SAT 94
[2024-02-22 01:23] VITALS: BP 117/74; PULSE 83; RESP 20; TEMP 36.8; O2SAT 96
[2024-02-22 01:28] VITALS: BMI 27.8
[2024-02-22] MEDS: Melatonin 3 MG TABLET 6 MG PO (01:36)
[2024-02-22 03:58] VITALS: BP 133/80; PULSE 84; RESP 20; TEMP 36.7; O2SAT 99
[2024-02-22 06:43] LABS: Basophils Percent Auto 0.2 % (0-2); Mean Corpuscular HGB Conc 33.2 g/dl (31.0-36.0); Monocytes Absolute Auto 1.9 X10*3/uL (0.1-1.2); Monocytes Percent Auto 10.2 % (2-11); Red Blood Count 4.73 X10*6/uL (4.60-5.80); SCAN SMEAR FLAG 1
[2024-02-22 06:45] LABS: Eosinophils Absolute Auto 0.2 X10*3/uL (0.0-0.4); Eosinophils Percent Auto 1.1 % (0-4); Hematocrit 37.4 % (42.0-52.0); Hemoglobin 12.4 g/dl (14.0-18.0); Imm Gran Abs Auto 0.14 X10*3/uL (0.00-0.03); Imm Gran Pct Auto 0.8 % (0.0-0.4); Lymphocytes Absolute Auto 1.3 X10*3/uL (1.2-4.9); Lymphocytes Percent Auto 7.3 % (20-40); MANUAL DIFF FLAG SCAN; Mean Corpuscular Hemoglobin 26.2 pg (27.0-33.0); Mean Corpuscular Volume 79.1 fL (80.0-98.0); Mean Platelet Volume 12.3 fL (9.4-12.4); Neutrophils Absolute Auto 14.8 x10*3/uL (2.0-8.3); Neutrophils Percent Auto 80.4 % (45-73); Platelet Count 185 X10*3/uL (160-400); Red Cell Distribution Width 16.1 % (11.0-16.0); White Blood Count 18.4 X10*3/uL (4.8-10.8)
[2024-02-22 06:47] LABS: PLT ABN DIST 1
[2024-02-22 06:48] LABS: Anion Gap 14 (12-20); Blood Urea Nitrogen 13 mg/dL (9-16); Calcium 9.2 mg/dL (8.4-10.2); Carbon Dioxide 28 mmol/L (22-29); Chloride 103 mmol/L (96-108); Creatinine Clr Calc Pharmacy 179.4; Estimated Glomerular Filt Rate > 60; Glucose Random 89 mg/dL (60-115); Potassium 3.4 mmol/L (3.3-5.1); Sodium 142 mmol/L (135-145)
[2024-02-22 07:17] LABS: SLIDE REVIEW VERIFIED
--- NOTE | 2024-02-22 07:43 | PM.UROCN ---
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 No fever, chills, nausea, vomiting, chest discomfort, palpitations, shortness of breath, changes in bowel habits. In the emergency department, suprapubic catheter was replaced. Hematuria was noticed and urine concerning for UTI. Abdominal discomfort resolved after replacing suprapubic catheter. Patient with white count 23 WBC Urology consulted, the patient had gross hematuria in the ED, which was noted after placement of new catheter that drained the bladder. The patient was a recent admission in 10/18/2023 for UTI, had scrotal ultrasound noting epididymo-orchitis. The patient was seen by Urology at that time. He had a chronic Villatoro catheter. Suprapubic tube was placed during that admission on 10/22/2023. On examination the urine is currently clear. CT imaging reviewed. CTAP: negative for nephrolithiasis, bladder decompessed with new catheter in the bladder. Review of Systems Review of Systems: Yes all other systems are reviewed and are negative Constitutional: Constitutional: Reports no additional constitutional complaints Eyes: Eyes: Reports no additional eye complaints ENT: Reports system reviewed and no additional complaints, except as documented Cardiovascular: Cardiovascular: Reports no additional cardiovascular complaints Respiratory: Respiratory: Reports no additional respiratory complaints Gastrointestinal: Gastrointestinal: Reports no additional gastrointestinal complaints Genitourinary: Genitourinary: Reports as per HPI Musculoskeletal: Musculoskeletal: Reports no additional musculoskeletal complaints Integumentary/Breasts: Skin/Breast: Reports system reviewed and no additional complaints, except as docu Neurologic: Reports system reviewed and no additional complaints, except as documented Psychiatric: Psychiatric: Reports no additional psychiatric complaints Endocrine: Endocrine: Reports no additional endocrine complaints Hematologic/Lymphatic: Hematologic/Lymphatic: Reports no additional hematologic/lymphatic complaints Allergic/Immunologic: Allergic/Immunologic: Reports no additional allergic/immunologic complaints [facility] Past Medical History Medical History 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 Microcytic anemia Multiple sclerosis Headache Family History Family History Other No family history of coronary artery disease Surgical History Surgical History H/O hernia repair Social History Social History Household Members: Family Housing: Apartment 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 have visiting nurse or other home services: Yes Unable to assess alcohol history related to: Unknown Alcohol intake: never Patient Tobacco Use Status: Never used Tobacco Tobacco use type: Cigarette Cigarettes Per Day: 0.25 Substance Use Type: Marijuana Advance Directives Date on File: 08/21/22 service: No Current occupational status: disabled [employer] Allergies Allergy/AdvReac Type Severity Reaction Status Date / Time No Known Allergies Allergy Verified 02/21/24 11:51 [No Known Allergies*] Active Medications: Current Medications Acetaminophen (Acetaminophen 325 Mg Tablet) 650 mg PO Q6H PRN PRN Reason: Pain, Mild (Pain Scale 1-3) Baclofen (Baclofen 20 Mg Tablet) 20 mg PO DAILY [facility] Last Admin: 02/21/24 16:38 Dose: 20 mg Levofloxacin (Levaquin) 750 mg in 150 mls @ 100 mls/hr IV Q24H [facility] Last Infusion: 02/21/24 22:44 Dose: Infused Melatonin (Melatonin 3 Mg Tablet) 6 mg PO BEDTIME PRN PRN Reason: Insomnia Last Admin: 02/22/24 01:36 Dose: 6 mg Methenamine Hippurate (Methenamine Hippurate 1 Gm Tablet) 1 gm PO DAILY [facility] Last Admin: 02/21/24 16:38 Dose: 1 gm Ondansetron HCl (Ondansetron Hcl 4 Mg/2 Ml Vial) 4 mg IVPUSH Q8H PRN PRN Reason: Nausea and Vomiting Prednisone (Prednisone 20 Mg Tablet) 20 mg PO BID [facility] Last Admin: 02/21/24 16:38 Dose: 20 mg Home Medications ?Medication ?Instructions ?Recorded ?Confirmed ?Last Taken ?Type cholecalciferol (vitamin D3) 50 1 cap PO QAM 09/18/21 02/22/24 02/20/24 History mcg (2,000 unit) capsule multivitamin 1 tab PO DAILY 08/20/22 02/22/2402/19/24 History omega-3 300 mg-dha 120 mg-epa 180 1 cap PO DAILY 08/20/22 02/22/24 02/20/24 History mg-fish oil 1,000 mg capsule baclofen 10 mg tablet 10 mg PO DAILY PRN muscle 04/05/23 02/21/24 02/20/24 21:00 History spasm/insomnia baclofen 20 mg tablet 20 mg PO DAILY 10/20/23 02/21/24 02/20/24 21:00 History ascorbic acid (vitamin C) 500 mg 500 mg PO BID 02/22/24 02/22/24 02/20/24 History tablet (Vitamin C) prednisone 20 mg tablet 20 mg PO DAILY 02/22/24 02/22/24 02/20/24 History sertraline 50 mg tablet 50 mg PO QAM 02/22/24 02/22/24 02/20/24 History tizanidine 2 mg tablet 2 mg PO BEDTIME PRN Muscle Spasm 02/22/24 02/22/24 Unknown History tizanidine 2 mg tablet 2 mg PO QAM 02/22/24 02/22/24 02/20/24 History Physical Exam Vital Signs: Vital Signs: Last Vital Signs Temp 98.1 F 02/22/24 03:58 Pulse 84 02/22/24 03:58 Resp 20 02/22/24 03:58 BP 133/80 02/22/24 03:58 Pulse Ox 99 02/22/24 03:58 O2 Del Method Room Air 02/22/24 03:58 BMI result Body Mass Index 27.8 Const: General: healthy appearing, no acute distress and well developed Orientation/consciousness: patient oriented x3 HEENT: Head: Yes normocephalic and Yes atraumatic Eyes: Conjunctivae: conjunctivae normal Neck: Neck: Yes normal visual inspection Chest: Chest palpation & inspection: normal inspection of the chest Resp: Effort & Inspection: normal respiratory effort GI: Inspection: Yes normal to inspection Palpation (GI): Soft to palpation : Other: No scrotal swelling. Penis: normal penis and uncircumcised Scrotum: scrotum normal Neuro: General: patient oriented x3 Extrem: Other: Lower extremity contractures noted. Psych: Appearance: grossly normal Affect: normal affect Results Labs 02/22/24 05:28 02/22/24 05:28 Labs: Abnormal lab results 02/21/24 02/21/24 02/22/24 Range/Units 14:09 17:47 05:28 WBC 23.0 H 18.4 H (4.8-10.8) X10*3/uL Hgb 13.5 L 12.4 L (14.0-18.0) g/dl Hct 41.2 L 37.4 L (42.0-52.0) % MCV 79.1 L (80.0-98.0) fL MCH 26.2 L 26.2 L (27.0-33.0) pg RDW 16.4 H 16.1 H (11.0-16.0) % Immature Gran % (Auto) 0.7 H 0.8 H (0.0-0.4) % Neut % (Auto) 81.5 H 80.4 H (45-73) % Lymph % (Auto) 6.4 L 7.3 L (20-40) % Door # (Auto) 2.4 H 1.9 H (0.1-1.2) X10*3/uL Abs Immat Gran (auto) 0.16 H 0.14 H (0.00-0.03) X10*3/uL Absolute Neuts (auto) 18.7 H 14.8 H (2.0-8.3) x10*3/uL BUN 22 H (9-16) mg/dL Urine Color Other A Urine Protein 100 (2+) H (Neg-Trace) mg/dL Urine Blood Large (3+) H (Negative) Ur Leukocyte Esterase Large (3+) H (Negative) Urine RBC >20 H (0-2) /HPF Urine WBC >50 H (0-5) /HPF Short CBC 02/21/24 02/22/24 Range/Units 17:47 05:28 WBC 23.0 H 18.4 H (4.8-10.8) X10*3/uL Hgb 13.5 L 12.4 L (14.0-18.0) g/dl Hct 41.2 L 37.4 L (42.0-52.0) % Plt Count 201 D 185 (160-400) X10*3/uL BMP 02/21/24 02/22/24 17:47 05:28 Sodium 144 142 Potassium 3.5 3.4 Chloride 106 103 Carbon Dioxide 27 28 BUN 22 H 13 Creatinine 0.68 0.58 Calcium 9.5 9.2 Urine 02/21/24 Range/Units 14:09 Urine Color Other A Urine Appearance Hazy Urine pH 8.5 (5.0-9.0) Ur Specific Mcleod 1.015 (1.005-1.025) Urine Protein 100 (2+) H (Neg-Trace) mg/dL Urine Glucose (UA) Negative (Negative) mg/dL Imaging Additional studies: Date of Service: 02/21/24 EXAMINATION: CT ABDOMEN AND PELVIS WITHOUT CONTRAST CLINICAL INFORMATION: Hematuria COMPARISON: CT abdomen and pelvis 10/20/2023 TECHNIQUE: Multidetector volumetric imaging was performed from the superior aspect of the liver through the pubic symphysis. Sagittal and coronal reformatted images were obtained on the technologist's workstation. This CT examination was performed using dose optimization techniques as appropriate, variously including the following: *Automated exposure control *Adjustment of mA and/or kV according to patient size (this includes techniques or standardized protocols for targeted exams where dose is matched to indication/reason for exam; i.e. extremities or head) *Use of iterative reconstruction technique DLP: 649 mGy-cm FINDINGS: LUNG BASES: The visualized lung bases are unremarkable. LIVER, GALLBLADDER, AND BILIARY TREE: The liver is normal in size, shape, and attenuation. No focal hepatic lesion or biliary ductal dilatation is present. The gallbladder is unremarkable with no evidence of radiopaque gallstones, gallbladder wall thickening, or obvious pericholecystic inflammatory changes. PANCREAS: Unremarkable. SPLEEN: Unremarkable. ADRENAL GLANDS: Unremarkable. KIDNEYS AND URETERS: The kidneys are normal in size, shape, and attenuation. No hydronephrosis, hydroureter, or calculi seen. No perinephric stranding. BLADDER: Suprapubic catheter in place. The bladder is decompressed. GASTROINTESTINAL TRACT: The large and small bowel are normal in caliber. The stomach and duodenum appear normal. Moderate stool burden. ABDOMINAL WALL: No significant hernia is appreciated. LYMPH NODES: Normal. VASCULAR: Unremarkable. PELVIC VISCERA: Unremarkable. OSSEOUS STRUCTURES: Mild multilevel degenerative changes of the lumbar spine. IMPRESSION: 1. No nephrolithiasis. 2. Suprapubic tube in place decompressing the bladder. Assessment and Plan (1) Acute UTI: Status: Acute (2) Neurogenic urinary bladder disorder: Status: Acute (3) Gross hematuria: Status: Acute Plan Gross hematuria has resolved. Treatment of UTI with appropriate antibiotics follow-up with Urology as an outpatient Procedures Date of Service Date of Service: 02/22/24
[2024-02-22 07:56] VITALS: BP 149/90; PULSE 95; RESP 18; TEMP 36.1; O2SAT 98
[2024-02-22] MEDS: Baclofen 20 MG TABLET PO (08:15)
[2024-02-22] MEDS: predniSONE 20 MG TABLET PO (08:15)
[2024-02-22] MEDS: Methenamine Hippurate 1 GM TABLET PO (08:15)
--- NOTE | 2024-02-22 10:01 | PHA.MEDREC ---
Pharmacy Consult ? Medication Reconciliation Pharmacy has completed the medication reconciliation. Spoke to patient and confirmed medication list. He said he does not take gabapentin. He takes prednisone 20 mg qd. He also doesn't take baclofen, he takes tizanidine instead for muscle spasm (1 tab qam and 1 tab qhs prn). Contacted Kelly Madsen and the orders were changed to reflect this.
[2024-02-22] MEDS: Sertraline HCL 50 MG TABLET PO (11:24)
[2024-02-22] MEDS: Cholecalciferol (Vitamin D3) 25 MCG TABLET 50 MCG PO (11:24)
[2024-02-22 12:00] VITALS: BP 142/70; PULSE 89; RESP 18; TEMP 36.2; O2SAT 97
--- NOTE | 2024-02-22 12:55 | P.PNIM_ITS ---
Subjective Subjective Date of Service: 02/22/24 Interval History: Seen in follow up for catheter associated UTI with sepsis Interval history: Afebrile. Hematuria resolved. Complaining of BLE sciatica Review of Systems Review of Systems: Yes all other systems are reviewed and are negative Physical Exam 2 Vital Signs: Vital Signs: Last Vital Signs Temp 97.2 F 02/22/24 12:00 Pulse 89 02/22/24 12:00 Resp 18 02/22/24 12:00 BP 142/70 H 02/22/24 12:00 Pulse Ox 97 02/22/24 12:00 O2 Del Method Room Air 02/22/24 12:00 BMI result Body Mass Index 27.8 Constitutional - Awake and Alert, No apparent distress Eyes - PERRLA, EOMI Cardiovascular - S1S2, RRR, No edema Respiratory - Normal lung expansion, Normal respiratory effort, No respiratory distress, CTA bilaterally Gastrointestinal - NT / ND; +BS; No rebound or guarding - suprapubic catheter in place with scant bloody drainage Extremities - no calf tenderness bilaterally, no swelling Skin - Warm/Dry Neurological - Alert & oriented x3, spasticity noted in bue Psychological - Appropriate affect Objective Data Active Medications Acetaminophen (Acetaminophen 325 Mg Tablet) 650 mg PO Q6H PRN PRN Reason: Pain, Mild (Pain Scale 1-3) Ascorbic Acid (Ascorbic Acid 500 Mg Tablet) 500 mg PO BID [facility] Levofloxacin (Levaquin) 750 mg in 150 mls @ 100 mls/hr IV Q24H [facility] Last Infusion: 02/21/24 22:44 Dose: Infused Documented By: YARELY Melatonin (Melatonin 3 Mg Tablet) 6 mg PO BEDTIME PRN PRN Reason: Insomnia Last Admin: 02/22/24 01:36 Dose: 6 mg Documented By: YAMILEX Methenamine Hippurate (Methenamine Hippurate 1 Gm Tablet) 1 gm PO DAILY [facility] Last Admin: 02/22/24 08:15 Dose: 1 gm Documented By: ALINA Ondansetron HCl (Ondansetron Hcl 4 Mg/2 Ml Vial) 4 mg IVPUSH Q8H PRN PRN Reason: Nausea and Vomiting Prednisone (Prednisone 20 Mg Tablet) 20 mg PO DAILY [facility] Sertraline HCl (Sertraline Hcl 50 Mg Tablet) 50 mg PO DAILY@0900 [facility] Last Admin: 02/22/24 11:24 Dose: 50 mg Documented By: ALINA Tizanidine HCl (Tizanidine Hcl 4 Mg Tablet) 2 mg PO BEDTIME PRN PRN Reason: Muscle Spasm Tizanidine HCl (Tizanidine Hcl 4 Mg Tablet) 2 mg PO DAILY@0900 [facility] Vitamin D (Cholecalciferol (Vitamin D3) 25 Mcg Tablet) 50 mcg PO DAILY@0900 [facility] Last Admin: 02/22/24 11:24 Dose: 50 mcg Documented By: ALINA Labs 02/22/24 05:28 02/22/24 05:28 Labs: Laboratory Results - last 24 hr 02/21/24 02/21/24 02/21/24 14:09 17:47 20:03 MCV 80.0 MCH 26.2 L MCHC 32.8 RDW 16.4 H Plt Count 201 D MPV 12.1 Immature Gran % (Auto) 0.7 H Neut % (Auto) 81.5 H Lymph % (Auto) 6.4 L [place] % (Auto) 10.4 Eos % (Auto) 0.8 Baso % (Auto) 0.2 Lymph # (Auto) 1.5 [place] # (Auto) 2.4 H Eos # (Auto) 0.2 Baso # (Auto) 0.0 Abs Immat Gran (auto) 0.16 H Absolute Neuts (auto) 18.7 H Absolute Nucleated RBC 0.000 Nucleated RBC % (auto) 0.0 Smear Tech's Comments VERIFIED Anion Gap 15 Estim Creat Clear Calc 153.6 Estimated GFR > 60 Random Glucose 96 Lactic Acid 0.7 Calcium 9.5 Urine Color Other A Urine Appearance Hazy Urine pH 8.5 Ur Specific [place] 1.015 Urine Protein 100 (2+) H Urine Glucose (UA) Negative Urine Ketones Negative Urine Blood Large (3+) H Urine Nitrite Negative Ur Leukocyte Esterase Large (3+) H Urine RBC >20 H Urine WBC >50 H Ur Squamous Epith Cells 0-2 Urine Bacteria 4+ Hyaline Casts 0-2 02/22/24 05:28 MCV 79.1 L MCH 26.2 L MCHC 33.2 RDW 16.1 H Plt Count 185 MPV 12.3 Immature Gran % (Auto) 0.8 H Neut % (Auto) 80.4 H Lymph % (Auto) 7.3 L [place] % (Auto) 10.2 Eos % (Auto) 1.1 Baso % (Auto) 0.2 Lymph # (Auto) 1.3 [place] # (Auto) 1.9 H Eos # (Auto) 0.2 Baso # (Auto) 0.0 Abs Immat Gran (auto) 0.14 H Absolute Neuts (auto) 14.8 H Absolute Nucleated RBC 0.000 Nucleated RBC % (auto) 0.0 Smear Tech's Comments VERIFIED Anion Gap 14 Estim Creat Clear Calc 179.4 Estimated GFR > 60 Random Glucose 89 Lactic Acid Calcium 9.2 Urine Color Urine Appearance Urine pH Ur Specific [place] Urine Protein Urine Glucose (UA) Urine Ketones Urine Blood Urine Nitrite Ur Leukocyte Esterase Urine RBC Urine WBC Ur Squamous Epith Cells Urine Bacteria Hyaline Casts Microbiology Microbiology Results: Microbiology 02/21/24 Unknown Urine Culture - Final Urine Catheterized - Villatoro Catheter Assessment and Plan (1) Gross hematuria: Status: Acute (2) Catheter-associated urinary tract infection: Status: Acute Plan This is a 38-year-old male with 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 #Sepsis due to acute complicated UTI -wbc trending down, sepsis resolved -History of pseudomonas uti. continue levaquin (iniated 02/20) -follow cbc, cultures #Acute Hematuria, likely in the setting of above -resolved -Urology input appreciated. s/p suprapubic catheter replacement 02/20. 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
[2024-02-22 13:27] LABS: Iron 32 mcg/dL (45-160); Percent Iron Saturation 14 % (15-50); Total Iron Binding Capacity 227 mcg/dL (228-428); Unsaturated Iron Binding 195 ug/dL
[2024-02-22 13:43] LABS: Ferritin 357 ng/mL (20-250)
--- NOTE | 2024-02-22 14:50 | MHC.CM.PN ---
Addendum entered by Kassandra Angela 02/23/24 13:00: VNA: [email or web address] Original Note: PT REPORTS HE LIVES AT HOME WITH HIS PARENTS AND HAS DAILY SPUDDER SERVICES PT REPORTS HE ALSO HAS A VNA HOWEVER DOES NOT RECALL THE NAME OF THE AGENCY PT HAS A WHEEL CHAIR, HOSPITAL BED, TUB BENCH, GRAB BARS AND A WALKER AT HOME, AND AT BASELINE CAN STAND PIVOT TRANSFER WITH SPUDDER PT REPORTS HE IS SUPPOSED TO BE AT A NEW PT APPT WITH KEAGAN COLLINS Friday AT 1100 HOURS HE IS AWARE CM WILL REQUEST APPT CHANGE HCP ON FILE DCP: HOME, RESUME SERVICES BLS TRANSPORT
[2024-02-22 15:39] VITALS: BP 134/71; PULSE 92; RESP 20; TEMP 37.2; O2SAT 96
[2024-02-22] MEDS: Ascorbic Acid 500 MG TABLET PO (19:38)
[2024-02-22] MEDS: levoFLOXacin/D5W 750 MG/150 ML PIGGYBACK 100 MG IV (19:38)
[2024-02-22 19:58] VITALS: BP 135/80; PULSE 86; RESP 19; TEMP 36.2; O2SAT 97
[2024-02-23] VITALS: BP 127/74; PULSE 92; RESP 19; TEMP 36.8; O2SAT 96
--- NOTE | 2024-02-23 | ECG_ITS ---
Test Reason : abn ekg Blood Pressure : / mmHG Vent. Rate : 099 BPM Atrial Rate : 099 BPM P-R Int : 144 ms QRS Dur : 076 ms QT Int : 348 ms P-R-T Axes : 070 -02 067 degrees QTc Int : 446 ms Normal sinus rhythm Normal ECG When compared with ECG of 05-APR-2023 08:32, Nonspecific T wave abnormality, improved in Anterolateral leads Referred By: Amrita Ardon Electronically Signed By:SUPRIYA LINTON MD
[2024-02-23] MEDS: Melatonin 3 MG TABLET 6 MG PO (02:14)
[2024-02-23 04:00] VITALS: BP 119/70; PULSE 83; RESP 19; TEMP 36.7; O2SAT 98
[2024-02-23 06:55] LABS: MANUAL DIFF FLAG NO
[2024-02-23 07:03] VITALS: BP 127/86; PULSE 85; RESP 20; TEMP 36.6; O2SAT 98
[2024-02-23 07:09] LABS: Basophils Percent Auto 0.2 % (0-2); Eosinophils Absolute Auto 0.3 X10*3/uL (0.0-0.4); Eosinophils Percent Auto 2.4 % (0-4); Hematocrit 37.3 % (42.0-52.0); Hemoglobin 12.3 g/dl (14.0-18.0); Imm Gran Abs Auto 0.07 X10*3/uL (0.00-0.03); Imm Gran Pct Auto 0.6 % (0.0-0.4); Lymphocytes Absolute Auto 1.7 X10*3/uL (1.2-4.9); Lymphocytes Percent Auto 14.3 % (20-40); Mean Corpuscular Hemoglobin 26.2 pg (27.0-33.0); Mean Corpuscular Volume 79.4 fL (80.0-98.0); Monocytes Absolute Auto 1.4 X10*3/uL (0.1-1.2); Monocytes Percent Auto 11.3 % (2-11); Neutrophils Absolute Auto 8.6 x10*3/uL (2.0-8.3); Neutrophils Percent Auto 71.2 % (45-73); Platelet Count 196 X10*3/uL (160-400); Red Cell Distribution Width 15.7 % (11.0-16.0); White Blood Count 12.1 X10*3/uL (4.8-10.8)
[2024-02-23] MEDS: Cholecalciferol (Vitamin D3) 25 MCG TABLET 50 MCG PO (08:42)
[2024-02-23] MEDS: Ascorbic Acid 500 MG TABLET PO (08:42)
[2024-02-23] MEDS: Methenamine Hippurate 1 GM TABLET PO (08:43)
[2024-02-23] MEDS: Sertraline HCL 50 MG TABLET PO (08:43)
[2024-02-23] MEDS: predniSONE 20 MG TABLET PO (08:43)
[2024-02-23] MEDS: TiZANidine HCL 4 MG TABLET 2 MG PO (08:44)
[2024-02-23] MEDS: Acetaminophen 325 MG TABLET 650 MG PO (08:47)
[2024-02-23 11:09] VITALS: BP 127/68; PULSE 88; RESP 20; TEMP 36.7; O2SAT 97
--- NOTE | 2024-02-23 11:54 | P.DS_ITS ---
DS: Providers Provider Date of Service: 02/23/24 Date of admission: 02/21/24 20:15 Primary care physician: Unknown Physician Consults: 02/21/24 20:31 Consult to Urology Routine Consulting Provider: Leonard Fernandes Reason for consultation: hematuria DS: Diagnosis Discharge Diagnosis (1) Gross hematuria: Status: Acute (2) Catheter-associated urinary tract infection: Status: Acute DS: Summary Hospital Course Hospital Course: History and physical as per admitting provider. 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 Patient noticed on the day of presentation that his catheter is not draining appropriately. Also had generalized lower abdominal discomfort, constant, nonradiating. Noticed change in odor and color of urine. No fever, chills, nausea, vomiting, chest discomfort, palpitations, shortness of breath, changes in bowel habits. In the emergency department, suprapubic catheter was replaced. Hematuria was noticed and urine concerning for UTI. Abdominal discomfort resolved after replacing suprapubic catheter. Patient with white count 23 WBC 38-year-old man initially treated for sepsis secondary to acute complicated UTI with history of suprapubic catheter. Suprapubic catheter was replaced in the ER on 02/21/2024. Blood and urine cultures came back negative. Patient was treated with Levaquin during his hospitalization that will be stopped on discharge. Patient has no further complaints of pain. Seen and evaluated by Urology with no further need for other intervention. Plan is to discharge patient home with visiting nurse services. He did have some episodes of acute hematuria in the setting of change of catheter. 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 Continue prednisone and tizanidine Acute microcytic anemia. Suspected blood loss secondary to hematuria. H&H above blood transfusion threshold Time Attestation Discharge Coordination Time (in mins): 36 Quality: Safe Use of Opioids Does Pt have an Active Cancer Diagnosis on the Problem List?: No Quality: Stroke Does the patient have a stroke diagnosis?: No Physical Exam Vital Signs: Vital Signs: Last Vital Signs Temp 98.0 F 02/23/24 11:09 Pulse 88 02/23/24 11:09 Resp 20 02/23/24 11:09 BP 127/68 02/23/24 11:09 Pulse Ox 97 02/23/24 11:09 O2 Del Method Room Air 02/23/24 11:09 BMI result Body Mass Index 27.8 Appearing in no acute distress head is normocephalic atraumatic eyes pupils are PERRLA sclera is anicteric mouth throat mucous membranes are intact and moist neck is supple no lymphadenopathy, no JVD noted lung sounds are clear to auscultation heart regular rate rhythm, clear S1, S2 positive bowel sounds, abdomen is soft, nontender neuro patient is alert x3, no focal deficits Suprapubic catheter in place DS: Data Data Completed and Pending Completed studies during hospitalization [Text1]: Procedures Drainage of Bladder with Drainage Device, Percutaneous Endoscopic Approach (10/20/23) Introduction of Vasopressor into Peripheral Vein, Percutaneous Approach (04/05/23) Labs on day of discharge: Laboratory Results - last 24 hr 02/22/24 02/23/24 05:28 06:16 WBC 12.1 H RBC 4.70 Hgb 12.3 L Hct 37.3 L MCV 79.4 L MCH 26.2 L MCHC 33.0 RDW 15.7 Plt Count 196 MPV 13.0 H Immature Gran % (Auto) 0.6 H Neut % (Auto) 71.2 Lymph % (Auto) 14.3 L [place] % (Auto) 11.3 H Eos % (Auto) 2.4 Baso % (Auto) 0.2 Lymph # (Auto) 1.7 [place] # (Auto) 1.4 H Eos # (Auto) 0.3 Baso # (Auto) 0.0 Abs Immat Gran (auto) 0.07 H Absolute Neuts (auto) 8.6 H Absolute Nucleated RBC 0.000 Nucleated RBC % (auto) 0.0 Iron 32 L TIBC 227 L % Saturation 14 L Unsat Iron Binding 195 Ferritin 357 H Preliminary micro results at discharge 02/21/24 20:06 Blood Culture - Preliminary Blood - Venous No growth after 24 hours. 02/21/24 20:03 Blood Culture - Preliminary Blood - Venous No growth after 24 hours. Discharge Plan Discharge Anticipated Discharge Date/Time: 02/23/24 11:52 Patient Disposition: Home Health Service Discharge Diagnosis: Suprapubic catheters changed Referrals: Leonard Fernandes MD [Physician] - 1 Week Discharge Medications: Continued (DME) Urinary Leg Bag Misc See Rx Instructions .Route Qty: 4 5RF Rx Instructions: As directed, 4 per month (DME) Villatoro Catheter 20 Fr misc See Rx Instructions .Route Qty: 2 5RF Rx Instructions: As directed, 2 per month (DME) Villatoro Catheter Tray Tray See Rx Instructions .Route Qty: 2 5RF Rx Instructions: As directed 2 per month (DME) syringe disposable, irrigation 60 mL syringe See Rx Instructions .Route Qty: 2 5RF Rx Instructions: As directed 2 per month (DME) [place] Urinary Drainage Bag Misc See Rx Instructions .Route Qty: 2 5RF Rx Instructions: As directed, 2 per month cholecalciferol (vitamin D3) 50 mcg (2,000 unit) capsule 1 cap PO QAM multivitamin Tablet 1 tab PO DAILY omega 1-lnm-dwo-fish oil 300 mg (120 mg- 180mg)-1,000 mg capsule 1 cap PO DAILY tizanidine 2 mg tablet 2 mg PO QAM prednisone 20 mg tablet 20 mg PO DAILY ascorbic acid (vitamin C) [Vitamin C] 500 mg tablet 500 mg PO BID sertraline 50 mg tablet 50 mg PO QAM tizanidine 2 mg Tablet 2 mg PO BEDTIME PRN (Reason: Muscle Spasm) methenamine hippurate 1 gram tablet 1 g PO DAILY 90 Days Qty: 90 1RF Discharge Orders: Discharge Order (Routine); Ordered 02/23/24 Ordered By: Amrita Ardon Diet: Advance to usual diet Activity on Discharge: As tolerated Stand Alone Forms: Patient Portal Discharge page Print Language: French Activity Restrictions/Additional Instructions: Your suprapubic catheter was changed in the emergency department Care Plan Goals: Follow-up with urology as needed Health Concerns: Suprapubic catheter changed Plan of Treatment: Follow-up with primary care provider as needed Take all medications as prescribed Assessment: See discharge summary Patient Instructions: How to Care for Your Suprapubic Catheter (DC), Catheter- associated Urinary Tract Infection (ED)
--- NOTE | 2024-02-23 12:24 | PM.UROPN ---
Subjective Subjective Date of Service: 02/23/24 Interval history: White count dropping Clinically improving Did tell me that there was delay in getting Villatoro catheter from [place] and clot Will rewrite prescription so receives catheter every 2 weeks Continue methenamine and vitamin-C Has follow-up appointment in April Physical Exam Vital Signs: Vital Signs: Last Vital Signs Temp 98.0 F 02/23/24 11:09 Pulse 88 02/23/24 11:09 Resp 20 02/23/24 11:09 BP 127/68 02/23/24 11:09 Pulse Ox 97 02/23/24 11:09 O2 Del Method Room Air 02/23/24 11:09 BMI result Body Mass Index 27.8 Const: General: cooperative, healthy appearing, comfortable and no acute distress Orientation/consciousness: patient oriented x3 HEENT: Face and sinus: Yes normal facial exam Mouth: moist mucous membranes Neck: Neck: Yes normal visual inspection, Yes full ROM and Yes trachea midline Chest: Chest palpation & inspection: normal inspection of the chest Resp: Effort & Inspection: normal respiratory effort, able to speak in complete sentences and no respiratory distress GI: Inspection: Yes normal to inspection Back/Spine/Pelvis: Cervical Spine: normal cervical lordosis Thoracic/Lumbar Spine: thoracic and lumbar spine normal to inspection Skin: General skin exam: no rashes or lesions noted Neuro: General: patient oriented x3, tone normal and moves all extremities Extrem: General: Yes normal to inspection and Yes capillary refill normal Urology Results Labs 02/23/24 06:16 02/22/24 05:28 Labs: Laboratory Results - last 24 hr 02/22/24 02/23/24 05:28 06:16 WBC 12.1 H RBC 4.70 Hgb 12.3 L Hct 37.3 L MCV 79.4 L MCH 26.2 L MCHC 33.0 RDW 15.7 Plt Count 196 MPV 13.0 H Immature Gran % (Auto) 0.6 H Neut % (Auto) 71.2 Lymph % (Auto) 14.3 L [place] % (Auto) 11.3 H Eos % (Auto) 2.4 Baso % (Auto) 0.2 Lymph # (Auto) 1.7 [place] # (Auto) 1.4 H Eos # (Auto) 0.3 Baso # (Auto) 0.0 Abs Immat Gran (auto) 0.07 H Absolute Neuts (auto) 8.6 H Absolute Nucleated RBC 0.000 Nucleated RBC % (auto) 0.0 Iron 32 L TIBC 227 L % Saturation 14 L Unsat Iron Binding 195 Ferritin 357 H Progress Note: A&P Assessment and plan (1) Gross hematuria: Status: Acute (2) Catheter-associated urinary tract infection: Status: Acute (3) Neurogenic urinary bladder disorder: Status: Acute Plan Improving Will write to have catheter changed more frequently Time Spent With Patient Time: Total time managing care of this patient today ____ minutes. Progress Note: Quality Stroke Does the patient have a stroke diagnosis?: No
[2024-02-23] MEDS: bisacodyL 10 MG SUPP.RECT PR (13:05)
--- NOTE | 2024-02-23 13:45 | MHC.CM.PN ---
Addendum entered by Kassandar Angela 02/23/24 13:50: PT IS AWARAE HIS NEW PCP APPT HAS BEEN SCHEDULED FOR MARCH 10, 2024 AT 0930 Original Note: PT CLEARED TO DC HOME TODAY WITH RESUMPTION OF HIS SERVICES CM CALLED BECCA AT [facility], SHE CONFIRMS PT IS ACTIVE WITH [facility] AND NOTICE OF DC SENT TO [facility] VIA [employer] AND FAXED AT [phone] PT WILL RESUME HIS [employer] PT WILL DC TODAY AT 1500 HOURS VIA [facility] AUTH # [id number]
--- NOTE | 2024-02-23 15:32 | P.F2F_ITS ---
Service Date Service Date: 02/23/24 Encounter Date of encounter: 02/23/24 Reasons for Services Signs and symptoms assessed: Suprapubic catheter Reason for nursing home: CV/CP assess and/or care and GI/ assessment Homebound: Leaving the home is medically contraindicated at this time without the asist of a device and/or another person due th the listed conditions above and below. Reason homebound: unsteady gait / fall risk Certification: Based on the above findings, I certify that this patient is confined to the home and needs intermittent nursing home care, physical therapy and/or speech therapy, or continues to need occupational therapy. The patient is under my care, and I have initiated the establishment of the plan of care. The patient will be followed by a physician who will periodically review the plan of care. Time Spent With Patient Time: Total time managing care of this patient today ____ minutes.
== END 2024-02-23 16:07 | disposition home health service (06) | DRG 698 ==
LOC: HO.ED 19:44 → HO.EDOVER 20:20 → HO.IMC 02-22 00:20
PROVIDERS: Nurse Practitioner Family; Physician Assistant; Admitting Provider Student in an Organized Health Care Education/Training Program; Emergency Provider Student in an Organized Health Care Education/Training Program; Visit Provider Nurse Practitioner Acute Care
DX: T83.518A Infection and inflammatory reaction due to other urinary catheter, initial encounter (principal); A41.9 Sepsis, unspecified organism; G36.0 Neuromyelitis optica [Devic]; N39.0 Urinary tract infection, site not specified; D62 Acute posthemorrhagic anemia; G35 Multiple sclerosis; N31.9 Neuromuscular dysfunction of bladder, unspecified; R31.0 Gross hematuria; Z99.3 Dependence on wheelchair; Z79.52 Long term (current) use of systemic steroids; Z79.899 Other long term (current) drug therapy
CPT/HCPCS: 36415; 74176; 80048; 81001; 81003; 82728; 83540; 83605; 85025; 87040; 87086; 93005; 99285; J0696; J1956

== ENCOUNTER 2024-02-21 20:15 | Outpatient (BNV) | payer OTHER, SELFPAY | END 2024-02-23 12:07 | PROVIDERS: Admitting Provider Student in an Organized Health Care Education/Training Program; Emergency Provider Student in an Organized Health Care Education/Training Program; Visit Provider Internal Medicine Cardiovascular Disease | DX: R94.31 Abnormal electrocardiogram [ECG] [EKG] (principal) | CPT/HCPCS: 93010 ==

== ENCOUNTER → 2024-02-21 20:15 | Outpatient (BNV) | payer OTHER, SELFPAY | PROVIDERS: Admitting Provider Student in an Organized Health Care Education/Training Program; Emergency Provider Student in an Organized Health Care Education/Training Program; Visit Provider Student in an Organized Health Care Education/Training Program | DX: R31.0 Gross hematuria (principal); T83.510A Infection and inflammatory reaction due to cystostomy catheter, initial encounter; N39.0 Urinary tract infection, site not specified | CPT/HCPCS: 99223; 99232; 99239; G0180 ==

== ENCOUNTER → 2024-02-21 20:15 | Outpatient (BNV) | payer OTHER, SELFPAY | PROVIDERS: Admitting Provider Student in an Organized Health Care Education/Training Program; Emergency Provider Student in an Organized Health Care Education/Training Program; Visit Provider Urology | DX: R31.0 Gross hematuria (principal); T83.510A Infection and inflammatory reaction due to cystostomy catheter, initial encounter; N39.0 Urinary tract infection, site not specified; N31.9 Neuromuscular dysfunction of bladder, unspecified | CPT/HCPCS: 99222; 99232 ==

== ENCOUNTER 2024-03-07 18:38 | Emergency (ER) | payer OTHER, SELFPAY ==
--- NOTE | ~2024-03-07 | CT_ITS ---
EXAMINATION: CTA NECK WITH CONTRAST (STROKE) CTA BRAIN WITH CONTRAST (STROKE) CLINICAL INFORMATION: Slurred speech. COMPARISON: CT head 03/07/2024 TECHNIQUE: CTA of the head and neck was performed in the axial plane from the mediastinum to the skull vertex using 70 mL Omnipaque 350 intravenous contrast. Additional reformatted multiplanar images including maximum intensity projection MIP images are generated on the CT workstation. This CT examination was performed using dose optimization techniques as appropriate, variously including the following: *Automated exposure control *Adjustment of mA and/or kV according to patient size (this includes techniques or standardized protocols for targeted exams where dose is matched to indication/reason for exam; i.e. extremities or head) *Use of iterative reconstruction technique DLP: 1629 mGy-cm FINDINGS: The degree of stenosis determined by criteria similar to NASCET. IV contrast-enhanced CT the head: The ventricles and sulci are normal in size and configuration. No focal parenchymal lesions of the brain or abnormal extra-axial fluid collections identified. No intracranial hemorrhage, tumors or acute infarcts. The orbits and globes are normal in appearance. No significant opacification of the visualized paranasal sinuses, mastoid air cells and middle ear cavities. Normal intraluminal opacification of the visualized major intracranial dural sinuses. CT angiography neck: The carotid bulbs are patent. Conventional branching anatomy is noted in relation to the transverse aorta. The right vertebral artery is minimally dominant. The cervical vertebral artery systems are normal in appearance. CT angiography head: No large vessel intracranial occlusions identified. No intracranial stenoses or aneurysms noted. Visualized lung apices are clear. The thyroid is normal in appearance. No cervical lymphadenopathy identified. The parotid and submandibular glands are normal in appearance. Multifocal dental amalgam is present and gives rise to scattering artifact partially obscures visualization of adjacent transaxial structures. Minimal posterior endplate osteophytosis is present at C4-C5 and C5-C6. CT/CT angio head neck stroke IMPRESSION: IV contrast-enhanced CT the head: No intracranial abnormalities. CT angiography neck: *Normal. Patent cervical carotid and vertebral artery systems. *Mild posterior endplate osteophytosis at C4-C5 and C5-C6 consistent with chronic spondylosis. CT angiography head: *Normal. No intracranial large vessel occlusions.
--- NOTE | ~2024-03-07 | CT_ITS ---
EXAMINATION: CT HEAD WITHOUT CONTRAST (STROKE PROTOCOL) CLINICAL INFORMATION: Stroke protocol. Slurred speech COMPARISON: 08/02/2023 TECHNIQUE: Contiguous axial imaging was performed from the skull base to vertex without intravenous administration of contrast. This CT examination was performed using dose optimization techniques as appropriate, variously including the following: *Automated exposure control *Adjustment of mA and/or kV according to patient size (this includes techniques or standardized protocols for targeted exams where dose is matched to indication/reason for exam; i.e. extremities or head) *Use of iterative reconstruction technique DLP: 787 mGy-cm FINDINGS: There is no evidence of acute intracranial hemorrhage or territorial infarction. No abnormal mass effect or midline shift is seen. Conroy to white matter differentiation is well preserved. No extra-axial fluid collections are identified. The ventricles are normal in size. Relative atrophy of the cerebellum and brainstem again noted. There is no abnormal attenuation within the brain parenchyma. The osseous structures and soft tissues are normal. The mastoid air cells and visualized portions of the paranasal sinuses are well-aerated. CT/CT head for stroke IMPRESSION: No acute intracranial pathology. This critical result was discussed with the stroke team at 7:00 PM hours on 01/06/2024. It was ascertained that the content and urgency of the report was understood at the time of direct communication.
[2024-03-07 18:51] VITALS: BP 150/85; PULSE 70
[2024-03-07 19:01] VITALS: BP 135/86; PULSE 93; RESP 20; TEMP 37; O2SAT 98; BMI 28.3
--- NOTE | 2024-03-07 19:10 | ED_ITS ---
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 No focal weakness patient was taking prednisone 20 mg daily which finish 3 days ogo Related Data Home Medications ?Medication ?Instructions ?Recorded ?Confirmed cholecalciferol (vitamin D3) 50 1 cap PO QAM 09/18/21 02/22/24 mcg (2,000 unit) capsule multivitamin 1 tab PO DAILY 08/20/22 02/22/24 omega-3 300 mg-dha 120 mg-epa 180 1 cap PO DAILY 08/20/22 02/22/24 mg-fish oil 1,000 mg capsule ascorbic acid (vitamin C) 500 mg 500 mg PO BID 02/22/24 02/22/24 tablet (Vitamin C) prednisone 20 mg tablet 20 mg PO DAILY 02/22/24 02/22/24 sertraline 50 mg tablet 50 mg PO QAM 02/22/24 02/22/24 tizanidine 2 mg tablet 2 mg PO BEDTIME PRN Muscle Spasm 02/22/24 02/22/24 tizanidine 2 mg tablet 2 mg PO QAM 02/22/24 02/22/24 Previous Rx's ?Medication ?Instructions ?Recorded methenamine hippurate 1 gram tablet 1 g PO DAILY 90 days #90 tabs 11/19/23 catheter 20 Fr (Villatoro Catheter) #2 ea 01/06/24 catheterization tray (Villatoro #2 ea 01/06/24 Catheter Tray) syringe disposable, irrigation 60 #2 ea 01/06/24 mL urinary bag (Bardia Urinary #2 ea 01/06/24 Drainage Bag) urinary bag (Urinary Leg Bag) #4 ea 01/06/24 Allergies Allergy/AdvReac Type Severity Reaction Status Date / Time No Known Allergies Allergy Verified 03/07/24 19:14 [No Known Allergies*] Review of Systems 2 Review of Systems: Yes all other systems are reviewed and are negative [facility] Past Medical History Medical History 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 Microcytic anemia Multiple sclerosis Headache Surgical History H/O hernia repair Family History Family History Other No family history of coronary artery disease Social History Social History Household Members: Family Housing: Apartment 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 have visiting nurse or other home services: Yes Unable to assess alcohol history related to: Unknown Alcohol intake: never Patient Tobacco Use Status: Never used Tobacco Tobacco use type: Cigarette Cigarettes Per Day: 0.25 Smoked in Last 30 Days: No Use of substances other than those prescribed or required for medical reasons: No Substance Use Type: Marijuana Advance Directives: Yes Advance Directives on File: Yes Advance Directives Date on File: 03/07/24 service: No Current occupational status: disabled Physical Exam 2 Vital Signs: Vital Signs: Last Vital Signs Temp 98.7 F 03/07/24 22:02 Pulse 88 03/07/24 22:02 Resp 20 03/07/24 22:02 BP 144/80 H 03/07/24 22:02 Pulse Ox 99 03/07/24 22:02 O2 Del Method Room Air 03/07/24 22:02 BMI result Body Mass Index 28.3 Appearance: Alert. Oriented X3. No acute distress. Eyes: PERRLA, No Nystagmus ENT: Pharynx normal. Oral Mucosa moist Neck: Normal inspection. Neck supple. CVS: Normal heart rate and rhythm. Pulses normal. Respiratory: No respiratory distress. Equal air entry bilateral, no wheezing/rales/rhonchi Abdomen: Soft and nontender. Bowel sounds are present, no mass palpable, no CVA tenderness Skin: Skin warm and dry. Normal skin color. Normal skin turgor. Extremities: No lower extremity edema. No calf tenderness Neuro: Oriented X 3. slight Slurred speech No motor deficit. Patchy sensory loss.No cerebellar signs , cranial nerves II-XII intact Medications Administered Discontinued Medications Generic Name Dose Route Start Last Admin Trade Name Freq PRN Reason Stop Dose Admin Ceftriaxone Sodium 1 gm/ 50 mls @ 100 mls/hr 03/07/24 21:24 03/07/24 22:00 Sodium Chloride IV 03/07/24 21:53 100 mls/hr ONCE ONE Administration Methylprednisolone Sodium Succinate 125 mg 03/07/24 19:35 03/07/24 20:28 Methylprednisolone Sod Succ 125 Mg/2 Ml Vial IVPUSH 03/07/24 19:36 125 mg ONCE ONE Administration Medical Decision Making Medical Decision Making [facility] Narrative: Patient with multiple sclerosis/neuromyelitis optica spectrum disorder came with slurred and heavy speech with no focal deficit, CTA head and neck and CT negative for acute CVA, workup showed patient has a UTI. Case discussed Dr. Huber treat UTI as this may be the cause for patient's symptoms follow with his own neurologist Consult Healthcare Provider Management of the patient was discussed with: Philanthropy Officer Dr. Huber Lab Data [facility] Lab Attestation statement: I reviewed the patient's lab results. 03/07/24 19:21 03/07/24 19:21 Labs: Lab Results 03/07/24 03/07/24 Range/Units 19:21 19:28 WBC 11.2 H (4.8-10.8) X10*3/uL RBC 4.82 (4.60-5.80) X10*6/uL Hgb 12.8 L (14.0-18.0) g/dl Hct 39.0 L (42.0-52.0) % MCV 80.9 (80.0-98.0) fL MCH 26.6 L (27.0-33.0) pg MCHC 32.8 (31.0-36.0) g/dl RDW 16.4 H (11.0-16.0) % Plt Count 211 (160-400) X10*3/uL MPV 11.5 (9.4-12.4) fL Immature Gran % (Auto) 0.6 H (0.0-0.4) % Neut % (Auto) 71.1 (45-73) % Lymph % (Auto) 12.8 L (20-40) % Fajardo % (Auto) 13.9 H (2-11) % Eos % (Auto) 1.2 (0-4) % Baso % (Auto) 0.4 (0-2) % Lymph # (Auto) 1.4 (1.2-4.9) X10*3/uL Fajardo # (Auto) 1.6 H (0.1-1.2) X10*3/uL Eos # (Auto) 0.1 (0.0-0.4) X10*3/uL Baso # (Auto) 0.0 (0.0-0.2) X10*3/uL Abs Immat Gran (auto) 0.07 H (0.00-0.03) X10*3/uL Absolute Neuts (auto) 8.0 (2.0-8.3) x10*3/uL Absolute Nucleated RBC 0.000 (0.0-0.012) X10*3/uL Nucleated RBC % (auto) 0.0 (0.0-0.2) /100WBC Smear Tech's Comments VERIFIED PT 11.2 (11.1-13.3) SEC INR 0.9 (0.9-1.1) APTT 34.5 (26.0-36.8) SEC Sodium 145 (135-145) mmol/L Potassium 3.3 (3.3-5.1) mmol/L Chloride 103 (96-108) mmol/L Carbon Dioxide 31 H (22-29) mmol/L Anion Gap 14 (12-20) BUN 14 (9-16) mg/dL Creatinine 0.66 (0.5-1.4) mg/dL Estim Creat Clear Calc 158.8 Estimated GFR > 60 POC Glucose 89 (60-115) mg/dL Random Glucose 105 (60-115) mg/dL Calcium 9.3 (8.4-10.2) mg/dL Total Bilirubin 0.2 (0.0-1.0) mg/dL AST 19 (5-37) U/L ALT 29 (0-40) U/L Alkaline Phosphatase 46 (39-117) U/L C-Reactive Protein 0.66 H (< or = 0.50) mg/dL Total Protein 7.2 (6.5-8.0) g/dL Albumin 4.1 (3.5-5.0) g/dL Urine Color Yellow Urine Appearance Cloudy Urine pH 7.0 (5.0-9.0) Ur Specific Gilchrist 1.020 (1.005-1.025) Urine Protein 30 (1+) H (Neg-Trace) mg/dL Urine Glucose (UA) Negative (Negative) mg/dL Urine Ketones Negative (Negative) mg/dL Urine Blood Large (3+) H (Negative) Urine Nitrite Positive H (Negative) Ur Leukocyte Esterase Large (3+) H (Negative) Urine RBC >20 H (0-2) /HPF Urine WBC >50 H (0-5) /HPF Ur Squamous Epith Cells 0-2 (0-2) /HPF Urine Bacteria 4+ (None Seen) Hyaline Casts 0-2 (0-2) /LPF Independent Interpretation I performed an independent interpretation of an: CT Scan Radiology Impression Discussion of test interpretation with radiology: I have reviewed the radiologist's reading. Discharge Plan Discharge Clinical Impression: Multiple sclerosis, Acute UTI, Neuromyelitis optica spectrum disorder Patient Disposition: Xfer Other Instructions: Urinary Tract Infection in Men (ED), Multiple Sclerosis (DC) Additional Instructions: Take prednisone as prescribed follow with neurologist for follow-up plan Your urine is slightly infected take antibiotic as prescribed Prescriptions: No Action (DME) Urinary Leg Bag Misc See Rx Instructions .Route Qty: 4 5RF Rx Instructions: As directed, 4 per month (DME) Villatoro Catheter 20 Fr misc See Rx Instructions .Route Qty: 2 5RF Rx Instructions: As directed, 2 per month (DME) Villatoro Catheter Tray Tray See Rx Instructions .Route Qty: 2 5RF Rx Instructions: As directed 2 per month (DME) syringe disposable, irrigation 60 mL syringe See Rx Instructions .Route Qty: 2 5RF Rx Instructions: As directed 2 per month (DME) Bardia Urinary Drainage Bag Misc See Rx Instructions .Route Qty: 2 5RF Rx Instructions: As directed, 2 per month cholecalciferol (vitamin D3) 50 mcg (2,000 unit) capsule 1 cap PO QAM multivitamin Tablet 1 tab PO DAILY omega 5-niz-pel-fish oil 300 mg (120 mg- 180mg)-1,000 mg capsule 1 cap PO DAILY tizanidine 2 mg tablet 2 mg PO QAM prednisone 20 mg tablet 20 mg PO DAILY ascorbic acid (vitamin C) [Vitamin C] 500 mg tablet 500 mg PO BID sertraline 50 mg tablet 50 mg PO QAM tizanidine 2 mg Tablet 2 mg PO BEDTIME PRN (Reason: Muscle Spasm) methenamine hippurate 1 gram tablet 1 g PO DAILY 90 Days Qty: 90 1RF Print Language: Maltese
--- NOTE | 2024-03-07 19:13 | ECG_ITS ---
Test Reason : STROKE Blood Pressure : / mmHG Vent. Rate : 094 BPM Atrial Rate : 094 BPM P-R Int : 152 ms QRS Dur : 076 ms QT Int : 352 ms P-R-T Axes : 078 012 066 degrees QTc Int : 440 ms Normal sinus rhythm Normal ECG When compared with ECG of 23-FEB-2024 12:07, No significant change was found Referred By: Tez Flores Electronically Signed By:TOAN FAM
[2024-03-07 19:29] LABS: Basophils Percent Auto 0.4 % (0-2); Eosinophils Absolute Auto 0.1 X10*3/uL (0.0-0.4); Eosinophils Percent Auto 1.2 % (0-4); Hemoglobin 12.8 g/dl (14.0-18.0); Imm Gran Abs Auto 0.07 X10*3/uL (0.00-0.03); Imm Gran Pct Auto 0.6 % (0.0-0.4); Lymphocytes Absolute Auto 1.4 X10*3/uL (1.2-4.9); Lymphocytes Percent Auto 12.8 % (20-40); MANUAL DIFF FLAG SCAN; Mean Corpuscular HGB Conc 32.8 g/dl (31.0-36.0); Mean Corpuscular Hemoglobin 26.6 pg (27.0-33.0); Mean Corpuscular Volume 80.9 fL (80.0-98.0); Mean Platelet Volume 11.5 fL (9.4-12.4); Monocytes Absolute Auto 1.6 X10*3/uL (0.1-1.2); Monocytes Percent Auto 13.9 % (2-11); Neutrophils Percent Auto 71.1 % (45-73); Platelet Count 211 X10*3/uL (160-400); Red Blood Count 4.82 X10*6/uL (4.60-5.80); Red Cell Distribution Width 16.4 % (11.0-16.0); SCAN SMEAR FLAG 1; White Blood Count 11.2 X10*3/uL (4.8-10.8)
[2024-03-07 19:30] LABS: Appearance Urine Cloudy; Color Urine Yellow; Glucose Urine UA Negative (Negative); Leukocyte Esterase Urine Large (3+) (Negative); Nitrite Urine Positive (Negative); UMIC TRIGGER UACC YES; Urine Blood Large (3+) (Negative); Urine Ketones Negative (Negative); Urine Protein 30 (1+) mg/dL (Neg-Trace)
[2024-03-07 19:34] LABS: INTERNATIONAL NORM RATIO 0.9 (0.9-1.1); Prothrombin Time 11.2 SEC (11.1-13.3)
[2024-03-07 19:35] LABS: Glucose, Whole Blood 89 mg/dL (60-115)
[2024-03-07 19:35] LABS: Bacteria Urine 4+ (None Seen); Hyaline Casts Urine 0-2 /LPF (0-2); RBC Urine >20 /HPF (0-2); Squamous Epithelial Cell Urine 0-2 /HPF (0-2); UACC Culture Trigger YES; WBC Urine >50 /HPF (0-5)
[2024-03-07 19:36] LABS: Partial Thromboplastin Time 34.5 SEC (26.0-36.8)
[2024-03-07 19:45] LABS: Alanine Aminotransferase 29 U/L (0-40); Albumin Level 4.1 g/dL (3.5-5.0); Alkaline Phosphatase 46 U/L (39-117); Anion Gap 14 (12-20); Aspartate Amino Transferase 19 U/L (5-37); Bilirubin Total 0.2 mg/dL (0.0-1.0); Blood Urea Nitrogen 14 mg/dL (9-16); Calcium 9.3 mg/dL (8.4-10.2); Carbon Dioxide 31 mmol/L (22-29); Chloride 103 mmol/L (96-108); Creatinine Clr Calc Pharmacy 158.8; Estimated Glomerular Filt Rate > 60; Glucose Random 105 mg/dL (60-115); Potassium 3.3 mmol/L (3.3-5.1); Sodium 145 mmol/L (135-145); Total Protein 7.2 g/dL (6.5-8.0)
[2024-03-07 19:50] LABS: SLIDE REVIEW VERIFIED
[2024-03-07 20:21] LABS: C Reactive Protein 0.66 mg/dL (< or = 0.50)
[2024-03-07] MEDS: methylPREDNISolone Sod Succ 125 MG/2 ML VIAL IVPUSH (20:28)
--- NOTE | 2024-03-07 20:42 | PC.NURSE ---
pt repositioned in bed and medicated per dec. no changes to neuros as previously documented pt is at baseline. hx ms, pt experiences muscle spasms needing frequent assists with repositioning, pt states d/t stretcher being uncomfortable. per md pt ok to have po liquids following swallow eval.
[2024-03-07 20:58] VITALS: PULSE 77; RESP 15; O2SAT 98
[2024-03-07] MEDS: cefTRIAXone sodium 1 GM in 0.9 % Sodium Chloride 50 ML IV (22:00)
[2024-03-07 22:02] VITALS: BP 144/80; PULSE 88; RESP 20; TEMP 37.1; O2SAT 99
[2024-03-07] MEDS: Acetaminophen 325 MG TABLET 650 MG PO (23:09)
--- NOTE | 2024-03-07 23:09 | PC.NURSE ---
pt requested tylenol for pain, medicated per dec. pt tolerated well with water
[2024-03-08 00:15] VITALS: BP 135/81; PULSE 86; RESP 16; TEMP 37; O2SAT 99
== END 2024-03-08 00:16 | disposition other institution (70) ==
PROVIDERS: Emergency Provider Internal Medicine; PCP Internal Medicine Geriatric Medicine
DX: N39.0 Urinary tract infection, site not specified (principal); G36.0 Neuromyelitis optica [Devic]; G35 Multiple sclerosis
CPT/HCPCS: 36415; 70450; 70496; 70498; 80053; 81001; 82947; 85025; 85610; 85730; 86140; 87086; 87088; 87186; 93005; 96365; 96375; 99284; 99285; J0696; J2919

== ENCOUNTER → 2024-03-07 19:13 | Outpatient (BNV) | payer OTHER, SELFPAY | PROVIDERS: Emergency Provider Internal Medicine; PCP Internal Medicine Geriatric Medicine; Visit Provider Internal Medicine | DX: R51.9 Headache, unspecified (principal) | CPT/HCPCS: 93010 ==

== ENCOUNTER 2024-04-08 15:15 | Emergency (ER) | payer OTHER, SELFPAY ==
--- NOTE | 2024-04-08 15:20 | ED_ITS ---
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 Denies leakage from suprapubic site. Reports he was at a neurology appointment when he felt urine dripping from his penis. He is still having urine draining into his drainage bag as well. States that he is supposed to have his catheter changed every 2 weeks but that it was last changed when he was here on 02/20. Denies any other abdominal pain. Denies fevers. Denies noting any hematuria in drainage bag. Denies nausea or vomiting. MD complaint: abdominal pain Onset (ago): hour(s) Location: abdomen Radiation: non-radiation Severity scale (1-10): 8 Quality: aching Pain Consistency: constant Associated symptoms: other (urine leaking from penis) Treatments prior to arrival: none Related Data Home Medications ?Medication ?Instructions ?Recorded ?Confirmed cholecalciferol (vitamin D3) 50 1 cap PO QAM 09/18/21 02/22/24 mcg (2,000 unit) capsule multivitamin 1 tab PO DAILY 08/20/22 02/22/24 omega-3 300 mg-dha 120 mg-epa 180 1 cap PO DAILY 08/20/22 02/22/24 mg-fish oil 1,000 mg capsule ascorbic acid (vitamin C) 500 mg 500 mg PO BID 02/22/24 02/22/24 tablet (Vitamin C) prednisone 20 mg tablet 20 mg PO DAILY 02/22/24 02/22/24 sertraline 50 mg tablet 50 mg PO QAM 02/22/24 02/22/24 tizanidine 2 mg tablet 2 mg PO BEDTIME PRN Muscle Spasm 02/22/24 02/22/24 tizanidine 2 mg tablet 2 mg PO QAM 02/22/24 02/22/24 Previous Rx's ?Medication ?Instructions ?Recorded methenamine hippurate 1 gram tablet 1 g PO DAILY 90 days #90 tabs 11/19/23 catheter 20 Fr (Villatoro Catheter) #2 ea 01/06/24 catheterization tray (Villatoro #2 ea 01/06/24 Catheter Tray) syringe disposable, irrigation 60 #2 ea 01/06/24 mL urinary bag (Bardia Urinary #2 ea 01/06/24 Drainage Bag) urinary bag (Urinary Leg Bag) #4 ea 01/06/24 cefuroxime axetil 250 mg tablet 250 mg PO BID 7 days #14 tabs 03/07/24 cefuroxime axetil 250 mg tablet 250 mg PO BID 7 days #14 tabs 03/07/24 cefuroxime axetil 500 mg tablet 500 mg PO BID #19 tabs 04/08/24 Allergies Allergy/AdvReac Type Severity Reaction Status Date / Time No Known Allergies Allergy Verified 04/08/24 15:35 [No Known Allergies*] Review of Systems 2 Review of Systems: As per HPI. Yes all other systems are reviewed and are negative Constitutional: Constitutional: Reports as per HPI PMFSH Past Medical History Medical History 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 Microcytic anemia Multiple sclerosis Headache Surgical History H/O hernia repair Family History Family History Other No family history of coronary artery disease Social History Social History Household Members: Family Housing: Apartment 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 have visiting nurse or other home services: Yes Unable to assess alcohol history related to: Unknown Alcohol intake: never Patient Tobacco Use Status: Never used Tobacco Tobacco use type: Cigarette Cigarettes Per Day: 0.25 Smoked in Last 30 Days: No Use of substances other than those prescribed or required for medical reasons: No Substance Use Type: Marijuana Advance Directives: Yes Advance Directives on File: Yes Advance Directives Date on File: 03/07/24 Do you have a plan to hurt others: No Plan service: No Current occupational status: disabled Physical Exam ED Vital Signs: Vital Signs - 24 hr 04/08/24 15:31 Temperature 98.2 F Pulse Rate 72 Respiratory Rate 16 Blood Pressure 134/81 Pulse Oximetry 96 Oxygen Delivery Method Room Air BMI result Body Mass Index 30.4 Vital signs have been reviewed and appear to be correct. Blood pressure normal. Heart rate normal. Respiratory rate normal. Temperature normal. Oxygen saturation normal. Const General: cooperative and no acute distress Orientation/consciousness: oriented to person, oriented to place, oriented to time and patient oriented x3 Limitations: no limitations HENMT Head: Yes normocephalic and Yes atraumatic Ears: external ears normal General nose exam: Normal external nose present Face and sinus: Yes face symmetric Mouth: oropharynx normal and moist mucous membranes Throat: Yes uvula midline Eyes Pupils: Equal, round and reactive pupils present Neck Neck: Yes normal visual inspection and Yes supple Resp Effort & Inspection: normal respiratory effort and able to speak in complete sentences Auscultation: clear to auscultation bilaterally Cardio Rate: regular rate Rhythm: regular rhythm Heart sounds: S1 normal heart sound present and S2 normal heart sound present GI Palpation (GI): Soft to palpation and Tenderness to palpation present (GI) suprapubicly Auscultation: normoactive bowel sounds General: Yes bladder normal to inspection (no erythema, discharge or drainage around catheter) Catheter in place: suprapubic, No bladder normal to palpation (tender to palpation) and Yes no CVA tenderness Penis: normal penis Back/Spine/Pelvis Back: no CVA tenderness Skin General skin exam: elasticity normal and turgor normal Neuro General: oriented to person, oriented to place, oriented to time, patient oriented x3, moves all extremities, no focal motor deficits and CN's II-XI intact bilaterally Cranial nerves: Yes Equal, round and reactive pupils present Cognition (Neuro): normal cognition Extrem General: Yes no pedal edema and Yes no calf tenderness Psych Mental Status: mental status grossly normal Affect: normal affect Thought process: Normal thought process present Medical Decision Making Medical Decision Making MDM Narrative: Patient is a 38-year-old male with history of MS, 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 On exam patient is awake, A+Ox3, VS WNL, afebrile, normal neurological exam without focal deficits, physical exam findings as above. Given reported symptoms and physical exam findings, initial differential includes UTI, pyelonephritis, clogged urinary catheter. Labs notable for slight leukocytosis, no evidence of CAMRYN, no other significant abnormalities. Urinalysis obtained from newly placed suprapubic catheter notable for 3+ leukocytes, positive nitrites, 21-50WBCs. Patient is afebrile and nontoxic appearing. He also reports significant improvement in pain after having catheter changed. Case discussed with Dr. Cao, patient's urologist, who is in agreement with plan to discharge patient home on p.o. antibiotics and follow up outpatient in urology office. Will treat with cefuroxime. Return precautions discussed with patient at bedside. Patient verbalized understanding of and agreement with plan. Differential Diagnosis Differential Diagnoses: The differential diagnosis associated with the presentation includes As per [facility] Consult Healthcare Provider Management of the patient was discussed with: Hide Examiner (Dr. Cao) Lab Data [facility] Lab Attestation statement: I reviewed the patient's lab results. As per [facility] 04/08/24 16:01 04/08/24 16:01 Labs: Lab Results 04/08/24 04/08/24 Range/Units 16:01 16:11 WBC 11.6 H (4.8-10.8) X10*3/uL RBC 4.51 L (4.60-5.80) X10*6/uL Hgb 12.0 L (14.0-18.0) g/dl Hct 36.3 L (42.0-52.0) % MCV 80.5 (80.0-98.0) fL MCH 26.6 L (27.0-33.0) pg MCHC 33.1 (31.0-36.0) g/dl RDW 15.8 (11.0-16.0) % Plt Count 182 (160-400) X10*3/uL MPV 11.8 (9.4-12.4) fL Immature Gran % (Auto) 0.9 H (0.0-0.4) % Neut % (Auto) 69.3 (45-73) % Lymph % (Auto) 16.0 L (20-40) % [place] % (Auto) 11.9 H (2-11) % Eos % (Auto) 1.6 (0-4) % Baso % (Auto) 0.3 (0-2) % Lymph # (Auto) 1.9 (1.2-4.9) X10*3/uL [place] # (Auto) 1.4 H (0.1-1.2) X10*3/uL Eos # (Auto) 0.2 (0.0-0.4) X10*3/uL Baso # (Auto) 0.0 (0.0-0.2) X10*3/uL Abs Immat Gran (auto) 0.11 H (0.00-0.03) X10*3/uL Absolute Neuts (auto) 8.0 (2.0-8.3) x10*3/uL Absolute Nucleated RBC 0.000 (0.0-0.012) X10*3/uL Nucleated RBC % (auto) 0.0 (0.0-0.2) /100WBC Sodium 141 (135-145) mmol/L Potassium 3.5 (3.3-5.1) mmol/L Chloride 103 (96-108) mmol/L Carbon Dioxide 28 (22-29) mmol/L Anion Gap 14 (12-20) BUN 21 H (9-16) mg/dL Creatinine 0.64 (0.5-1.4) mg/dL Estim Creat Clear Calc 169.4 Estimated GFR > 60 Random Glucose 87 (60-115) mg/dL Calcium 9.2 (8.4-10.2) mg/dL Total Bilirubin 0.2 (0.0-1.0) mg/dL AST 17 (5-37) U/L ALT 25 (0-40) U/L Alkaline Phosphatase 41 (39-117) U/L Total Protein 6.8 (6.5-8.0) g/dL Albumin 3.9 (3.5-5.0) g/dL Urine Color Yellow Urine Appearance Turbid Urine pH 8.5 (5.0-9.0) Ur Specific [place] 1.015 (1.005-1.025) Urine Protein Trace (Neg-Trace) mg/dL Urine Glucose (UA) Negative (Negative) mg/dL Urine Ketones Negative (Negative) mg/dL Urine Blood Moderate (2+) H (Negative) Urine Nitrite Positive H (Negative) Ur Leukocyte Esterase Large (3+) H (Negative) Urine RBC 11-20 H (0-2) /HPF Urine WBC 21-50 H (0-5) /HPF Ur Squamous Epith Cells 0-2 (0-2) /HPF Urine Bacteria 4+ (None Seen) Hyaline Casts 0-2 (0-2) /LPF External Record Review External record reviewed: Inpatient record, Office record and Outpatient record Prescription Management I considered prescription management with: Antibiotic Critical Care Time Critical Care Time Critical Care Time: Yes Total Critical Care Time: 31 Attestation: I have personally provided critical care time exclusive of time spent on separately billable procedures. Time includes review of lab data, radiology results, discussion with consultants, and monitoring for potential decompensation. Intervention performed as documented. Discharge Plan Discharge Clinical Impression: Catheter-associated urinary tract infection Patient Disposition: Home, Self-Care Instructions: Urinary Tract Infection in Men (DC), How to Care for Your Suprapubic Catheter (DC), Catheter-associated Urinary Tract Infection (ED) Additional Instructions: You were evaluated in the emergency department today for urinary symptoms. Your suprapubic catheter was changed in the ED today. Your urine showed evidence of infection and you are being treated with an antibiotic, please take this as prescribed. Call Dr. Cao's office (urology) for a follow up appointment. Return to the emergency department if you develop increasing abdominal pain, additional leakage of urine, if your catheter is not draining, if you have nausea or vomiting, develop fever, or any other concerning symptoms. Prescriptions: New cefuroxime axetil 500 mg tablet 500 mg PO BID Qty: 19 0RF No Action (DME) Urinary Leg Bag Misc See Rx Instructions .Route Qty: 4 5RF Rx Instructions: As directed, 4 per month (DME) Villatoro Catheter 20 Fr misc See Rx Instructions .Route Qty: 2 5RF Rx Instructions: As directed, 2 per month (DME) Ivllatoro Catheter Tray Tray See Rx Instructions .Route Qty: 2 5RF Rx Instructions: As directed 2 per month (DME) syringe disposable, irrigation 60 mL syringe See Rx Instructions .Route Qty: 2 5RF Rx Instructions: As directed 2 per month (DME) Bardia Urinary Drainage Bag Misc See Rx Instructions .Route Qty: 2 5RF Rx Instructions: As directed, 2 per month cholecalciferol (vitamin D3) 50 mcg (2,000 unit) capsule 1 cap PO QAM multivitamin Tablet 1 tab PO DAILY omega 3-wwn-yii-fish oil 300 mg (120 mg- 180mg)-1,000 mg capsule 1 cap PO DAILY tizanidine 2 mg tablet 2 mg PO QAM prednisone 20 mg tablet 20 mg PO DAILY ascorbic acid (vitamin C) [Vitamin C] 500 mg tablet 500 mg PO BID sertraline 50 mg tablet 50 mg PO QAM tizanidine 2 mg Tablet 2 mg PO BEDTIME PRN (Reason: Muscle Spasm) cefuroxime axetil 250 mg tablet 250 mg PO BID 7 Days Qty: 14 0RF cefuroxime axetil 250 mg tablet 250 mg PO BID 7 Days Qty: 14 0RF methenamine hippurate 1 gram tablet 1 g PO DAILY 90 Days Qty: 90 1RF Print Language: Macanese
[2024-04-08 15:31] VITALS: BP 129/89; BP 134/81; PULSE 72; PULSE 83; RESP 16; TEMP 36.8; O2SAT 100; O2SAT 96; BMI 30.4
[2024-04-08 16:09] LABS: MANUAL DIFF FLAG NO
[2024-04-08 16:12] LABS: Basophils Percent Auto 0.3 % (0-2); Eosinophils Absolute Auto 0.2 X10*3/uL (0.0-0.4); Eosinophils Percent Auto 1.6 % (0-4); Hematocrit 36.3 % (42.0-52.0); Imm Gran Abs Auto 0.11 X10*3/uL (0.00-0.03); Imm Gran Pct Auto 0.9 % (0.0-0.4); Lymphocytes Absolute Auto 1.9 X10*3/uL (1.2-4.9); Mean Corpuscular HGB Conc 33.1 g/dl (31.0-36.0); Mean Corpuscular Hemoglobin 26.6 pg (27.0-33.0); Mean Corpuscular Volume 80.5 fL (80.0-98.0); Mean Platelet Volume 11.8 fL (9.4-12.4); Monocytes Absolute Auto 1.4 X10*3/uL (0.1-1.2); Monocytes Percent Auto 11.9 % (2-11); Neutrophils Percent Auto 69.3 % (45-73); Platelet Count 182 X10*3/uL (160-400); Red Blood Count 4.51 X10*6/uL (4.60-5.80); Red Cell Distribution Width 15.8 % (11.0-16.0); White Blood Count 11.6 X10*3/uL (4.8-10.8)
[2024-04-08 16:19] LABS: Appearance Urine Turbid; Color Urine Yellow; Glucose Urine UA Negative (Negative); Leukocyte Esterase Urine Large (3+) (Negative); Nitrite Urine Positive (Negative); PH 8.5 (5.0-9.0); Specific Gravity - Urine 1.015 (1.005-1.025); UMIC TRIGGER UACC YES; Urine Blood Moderate (2+) (Negative); Urine Ketones Negative (Negative); Urine Protein Trace mg/dL (Neg-Trace)
[2024-04-08 16:25] LABS: Bacteria Urine 4+ (None Seen); Hyaline Casts Urine 0-2 /LPF (0-2); Squamous Epithelial Cell Urine 0-2 /HPF (0-2); UACC Culture Trigger YES; WBC Urine 21-50 /HPF (0-5)
[2024-04-08 16:28] LABS: Alanine Aminotransferase 25 U/L (0-40); Albumin Level 3.9 g/dL (3.5-5.0); Alkaline Phosphatase 41 U/L (39-117); Anion Gap 14 (12-20); Aspartate Amino Transferase 17 U/L (5-37); Bilirubin Total 0.2 mg/dL (0.0-1.0); Blood Urea Nitrogen 21 mg/dL (9-16); Calcium 9.2 mg/dL (8.4-10.2); Carbon Dioxide 28 mmol/L (22-29); Chloride 103 mmol/L (96-108); Creatinine Clr Calc Pharmacy 169.4; Estimated Glomerular Filt Rate > 60; Glucose Random 87 mg/dL (60-115); Potassium 3.5 mmol/L (3.3-5.1); Sodium 141 mmol/L (135-145); Total Protein 6.8 g/dL (6.5-8.0)
[2024-04-08] MEDS: cefuroxime axetiL 500 MG TABLET PO (18:09)
[2024-04-08 18:25] VITALS: BP 132/83; PULSE 78; RESP 16; TEMP 36.8; O2SAT 98
[2024-04-08 20:50] VITALS: BP 129/92; PULSE 78; RESP 16; TEMP 36.8; O2SAT 100
== END 2024-04-08 20:51 | disposition home or self-care (01) ==
PROVIDERS: Registered Nurse Emergency; Emergency Provider Emergency Medicine; PCP Internal Medicine Geriatric Medicine
DX: T83.038A Leakage of other urinary catheter, initial encounter (principal); T83.511A Infection and inflammatory reaction due to indwelling urethral catheter, initial encounter; Y73.8 Miscellaneous gastroenterology and urology devices associated with adverse incidents, not elsewhere classified; Y92.9 Unspecified place or not applicable; R10.30 Lower abdominal pain, unspecified; G35 Multiple sclerosis; G36.0 Neuromyelitis optica [Devic]; N31.8 Other neuromuscular dysfunction of bladder; Z74.01 Bed confinement status; Z87.440 Personal history of urinary (tract) infections; Z96.0 Presence of urogenital implants
CPT/HCPCS: 36415; 51702; 80053; 81001; 85025; 87086; 87088; 87186; 99283; 99284

== ENCOUNTER 2024-04-15 16:12 | Emergency (ER) | payer OTHER, SELFPAY ==
[2024-04-15 16:19] VITALS: BP 152/98; PULSE 84; O2SAT 98
[2024-04-15 16:24] VITALS: BP 143/91; PULSE 75; RESP 18; TEMP 36.8; O2SAT 97; BMI 29.6
--- NOTE | 2024-04-15 17:15 | ED_ITS ---
HPI - Male Genitourinary General Chief complaint: Urogenital-Male Stated complaint: blocked catheter Time Seen by Provider: 04/15/24 16:15 Source: patient and EMS Mode of arrival: EMS Limitations: no limitations History of Present Illness ED Provider: Ana Rainey PA-C HPI Narrative: 38-year-old male with history of multiple sclerosis, neuromyelitis optica spectrum disorder, neurogenic bladder with suprapubic catheter since November of this year, recurrent UTI's who presents to the ER for evaluation of bladder pain and a probable clogged catheter. Patient states he was here last week with similar pain and was due to a clogged catheter. The pain started acutely at noon and has been worsening. He has had some urine leakage from the penis and around the catheter site. He denies any nausea, vomiting, fever, chills. MD Complaint: other (Bladder pain) Onset (ago): hour(s) Duration: progressively worsening Location: abdomen Radiation: penis Severity: severe Severity scale (1-10): 8 Quality: aching and stabbing Relieving factors: none Exacerbating factors: palpation and movement Related Data Home Medications ?Medication ?Instructions ?Recorded ?Confirmed cholecalciferol (vitamin D3) 50 1 cap PO QAM 09/18/21 02/22/24 mcg (2,000 unit) capsule multivitamin 1 tab PO DAILY 08/20/22 02/22/24 omega-3 300 mg-dha 120 mg-epa 180 1 cap PO DAILY 08/20/22 02/22/24 mg-fish oil 1,000 mg capsule ascorbic acid (vitamin C) 500 mg 500 mg PO BID 02/22/24 02/22/24 tablet (Vitamin C) prednisone 20 mg tablet 20 mg PO DAILY 02/22/24 02/22/24 sertraline 50 mg tablet 50 mg PO QAM 02/22/24 02/22/24 tizanidine 2 mg tablet 2 mg PO BEDTIME PRN Muscle Spasm 02/22/24 02/22/24 tizanidine 2 mg tablet 2 mg PO QAM 02/22/24 02/22/24 Previous Rx's ?Medication ?Instructions ?Recorded methenamine hippurate 1 gram tablet 1 g PO DAILY 90 days #90 tabs 11/19/23 catheter 20 Fr (Villatoro Catheter) #2 ea 01/06/24 catheterization tray (Villatoro #2 ea 01/06/24 Catheter Tray) syringe disposable, irrigation 60 #2 ea 01/06/24 mL urinary bag (Bardia Urinary #2 ea 01/06/24 Drainage Bag) urinary bag (Urinary Leg Bag) #4 ea 01/06/24 cefuroxime axetil 250 mg tablet 250 mg PO BID 7 days #14 tabs 03/07/24 cefuroxime axetil 250 mg tablet 250 mg PO BID 7 days #14 tabs 03/07/24 cefuroxime axetil 500 mg tablet 500 mg PO BID #19 tabs 04/08/24 Allergies Allergy/AdvReac Type Severity Reaction Status Date / Time No Known Allergies Allergy Verified 04/15/24 16:28 [No Known Allergies*] Review of Systems Review of Systems: Yes all other systems are reviewed and are negative PMFSH Past Medical History Medical History 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 Microcytic anemia Multiple sclerosis Headache Surgical History H/O hernia repair Family History Family History Other No family history of coronary artery disease Social History Social History Household Members: Family Housing: Apartment 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 have visiting nurse or other home services: Yes Unable to assess alcohol history related to: Unknown Alcohol intake: never Patient Tobacco Use Status: Never used Tobacco Tobacco use type: Cigarette Cigarettes Per Day: 0.25 Smoked in Last 30 Days: No Use of substances other than those prescribed or required for medical reasons: No Substance Use Type: Marijuana Advance Directives: Yes Advance Directives on File: Yes Advance Directives Date on File: 08/21/22 Do you have a plan to hurt others: No Plan service: No Current occupational status: disabled Physical Exam Vital Signs: Vital Signs: Last Vital Signs Temp 97.8 F 04/15/24 18:00 Pulse 73 04/15/24 18:00 Resp 18 04/15/24 18:00 BP 139/87 04/15/24 18:00 Pulse Ox 99 04/15/24 18:00 O2 Del Method Room Air 04/15/24 18:00 BMI result Body Mass Index 29.6 Appearance: Alert. Oriented X3. Appears uncomfortable. Head: normocephalic, atraumatic. Eyes: Pupils equal, round and reactive to light. ENT: Pharynx normal. No tonsillar swelling or exudate. Neck: Normal inspection. Neck supple. CVS: Normal heart rate and rhythm. Pulses normal. Respiratory: No respiratory distress. Breath sounds normal. Abdomen: Soft with suprapubic tenderness and distention to the level of just under the umbilicus, normal active +BS x4. Suprapubic catheter in place with gross amount white debris in the catheter tubing Skin: Skin warm and dry. Normal skin color. Normal skin turgor. No rashes. Extremities: No lower extremity edema. No joint swelling. Neuro/psych: Oriented X 3. Generalized weakness noted, nonfocal CN II-XII intact. Normal speech and cognition. Medical Decision Making Medical Decision Making MDM Narrative: 38-year-old male with history of MS, neurogenic bladder w/ SPT and recurrent UTIs who presents to the ER from home via EMS for evaluation of severe, worsening bladder pain that started acutely at noon today. History recent clogged catheter and UTI with similar pain. On arrival to the ER patient's vital signs are stable, slightly hypertensive. No fever or tachycardia. He is uncomfortable. On exam he has abdominal distension and suprapubic tenderness. There was significant sediment in the proximal aspect of the suprapubic tubing. The catheter was removed and a new catheter was placed without event and patient had 1200 cc of clear yellow urine return. 30 cc balloon was inflated and catheter was secured in place. Culture was sent. Upon review of old records, patient has had a recent Proteus UTI that is pansensitive as well as a history of Pseudomonas and E coli UTI that are resistant to Levaquin, this was in February. All of his recent urinary tract infections have been sensitive to cephalosporins. He was discharged on 04/08 with cefuroxime prescription, 500 mg b.i.d. for 10 days. Repeat urinalysis today has some improvement, nitrates are now negative. He still has several days left of the prescription. He has no tachycardia or fever to suggest sepsis today. His most recent culture is sensitive to cephalosporins. Will continue previously prescribed antibiotic, to complete a full 10 days of treatment. Upon counseling patient reported that he does not routinely flush his catheter. The re was significant amount of debris in the catheter tubing and he was counseled on appropriate ways to flush the catheter to prevent this. He will follow-up with his PCP and urologist. Comfortable discharge home with continuation of previously prescribed oral antibiotics. Patient agrees with plan. Differential Diagnosis Differential Diagnoses: The differential diagnosis associated with the presentation includes Catheter associated UTI, pyelonephritis, dehydration, catheter malfunction, catheter dislodgement, false track Admission/Observation Consideration of admission/observation: Escalation of care including admission/observation considered Second visit for catheter associated UTI, considered observation/admission however he was hemodynamically stable and no evidence of sepsis today Lab Data MDM Lab Attestation statement: I reviewed the patient's lab results. Likely chronically infected/colonized, overall improving from last UA Labs: Lab Results 04/15/24 Range/Units 18:02 Urine Color Yellow Urine Appearance Cloudy Urine pH 7.0 (5.0-9.0) Ur Specific [place] 1.010 (1.005-1.025) Urine Protein Trace (Neg-Trace) mg/dL Urine Glucose (UA) Negative (Negative) mg/dL Urine Ketones Negative (Negative) mg/dL Urine Blood Moderate (2+) H (Negative) Urine Nitrite Negative (Negative) Ur Leukocyte Esterase Large (3+) H (Negative) Urine RBC >20 H (0-2) /HPF Urine WBC >50 H (0-5) /HPF Ur Squamous Epith Cells 0-2 (0-2) /HPF Urine Bacteria None Seen (None Seen) Hyaline Casts 0-2 (0-2) /LPF Independent Historian Clinical information obtained from an independent historian. History obtained from or confirmed by: EMS External Record Review External record reviewed: Outpatient record and Prior outpatient labs Prescription Management I considered prescription management with: Pain Medication and Antibiotic Chronic Conditions Patient?s care impacted by: Other (Multiple sclerosis, recurrent UTIs) Procedures Catheter Insertion (Urinary) Date of insertion: 04/15/24 Time of insertion: 17:05 Reason for placing: Yes Reason for placing indwelling catheter: Other (neurogenic bladder) Bladder scan/ultrasound used before catheterization: Yes Estimated amount of urine (mLs): 757 Antiseptic solution prep: Povidone-Iodine Topical anesthesia used: No Catheter type/location: Suprapubic Size (Spanish): 20 Catheter balloon size (mL): 30 Catheter balloon amount: 30 Results: successfully catheterized-immediate flow Procedure performed: without complications Critical Care Time Critical Care Time Critical Care Time: No Discharge Plan Discharge Clinical Impression: Catheter-associated urinary tract infection Qualifiers: Indwelling urinary catheter type: indwelling urethral catheter Encounter type: subsequent encounter Qualified Code(s): T83.511D - Infection and inflammatory reaction due to indwelling urethral catheter, subsequent encounter Patient Disposition: Home, Self-Care Instructions: Catheter-associated Urinary Tract Infection (ED) Additional Instructions: Continue your previously prescribed antibiotic Recommend flushing the catheter to prevent sludge and debris in the tubing - do this 2 times per day Make sure drinking plenty of fluids and staying well hydrated Follow-up with your primary care doctor and your urologist. If you develop new or worsening symptoms call 911 or come back to the ER for further evaluation. Prescriptions: No Action (DME) Urinary Leg Bag Misc See Rx Instructions .Route Qty: 4 5RF Rx Instructions: As directed, 4 per month (DME) Villatoro Catheter 20 Fr misc See Rx Instructions .Route Qty: 2 5RF Rx Instructions: As directed, 2 per month (DME) Villatoro Catheter Tray Tray See Rx Instructions .Route Qty: 2 5RF Rx Instructions: As directed 2 per month (DME) syringe disposable, irrigation 60 mL syringe See Rx Instructions .Route Qty: 2 5RF Rx Instructions: As directed 2 per month (DME) Bardia Urinary Drainage Bag Misc See Rx Instructions .Route Qty: 2 5RF Rx Instructions: As directed, 2 per month cholecalciferol (vitamin D3) 50 mcg (2,000 unit) capsule 1 cap PO QAM multivitamin Tablet 1 tab PO DAILY omega 8-toi-vlj-fish oil 300 mg (120 mg- 180mg)-1,000 mg capsule 1 cap PO DAILY tizanidine 2 mg tablet 2 mg PO QAM prednisone 20 mg tablet 20 mg PO DAILY ascorbic acid (vitamin C) [Vitamin C] 500 mg tablet 500 mg PO BID sertraline 50 mg tablet 50 mg PO QAM tizanidine 2 mg Tablet 2 mg PO BEDTIME PRN (Reason: Muscle Spasm) cefuroxime axetil 500 mg tablet 500 mg PO BID Qty: 19 0RF cefuroxime axetil 250 mg tablet 250 mg PO BID 7 Days Qty: 14 0RF cefuroxime axetil 250 mg tablet 250 mg PO BID 7 Days Qty: 14 0RF methenamine hippurate 1 gram tablet 1 g PO DAILY 90 Days Qty: 90 1RF Print Language: Setswana
[2024-04-15 18:00] VITALS: BP 139/87; PULSE 73; RESP 18; TEMP 36.6; O2SAT 99
[2024-04-15 18:25] LABS: Appearance Urine Cloudy; Color Urine Yellow; Glucose Urine UA Negative (Negative); Leukocyte Esterase Urine Large (3+) (Negative); Nitrite Urine Negative (Negative); UMIC TRIGGER UACC YES; Urine Blood Moderate (2+) (Negative); Urine Ketones Negative (Negative); Urine Protein Trace mg/dL (Neg-Trace)
[2024-04-15 18:30] LABS: Bacteria Urine None Seen (None Seen); Hyaline Casts Urine 0-2 /LPF (0-2); RBC Urine >20 /HPF (0-2); Squamous Epithelial Cell Urine 0-2 /HPF (0-2); UACC Culture Trigger YES; WBC Urine >50 /HPF (0-5)
[2024-04-15 19:17] VITALS: BP 138/95; PULSE 77; RESP 17; TEMP 37.1; O2SAT 99
[2024-04-15 19:26] VITALS: BP 138/95; PULSE 77; RESP 17; TEMP 37.1; O2SAT 99
== END 2024-04-15 19:52 | disposition home or self-care (01) ==
PROVIDERS: Physician Assistant; Emergency Provider Emergency Medicine
DX: T83.518A Infection and inflammatory reaction due to other urinary catheter, initial encounter (principal); R39.89 Other symptoms and signs involving the genitourinary system; Y73.8 Miscellaneous gastroenterology and urology devices associated with adverse incidents, not elsewhere classified; Y92.9 Unspecified place or not applicable; Z79.899 Other long term (current) drug therapy; Z87.440 Personal history of urinary (tract) infections
CPT/HCPCS: 51702; 51798; 81001; 87086; 87088; 87186; 99283; 99284

== ENCOUNTER 2024-05-23 18:24 | Emergency (ER) | payer OTHER, SELFPAY ==
[2024-05-23 18:32] VITALS: BP 125/85; BP 130/90; PULSE 91; PULSE 98; RESP 16; TEMP 36.6; O2SAT 96; BMI 33.1
--- NOTE | 2024-05-23 18:40 | MHC.EDTECH ---
Patient was biba from home ,vitals taken ,blood sugar check ,Patient has an existing superbubic burciaga cathether ,was empty for 1000 ml .
[2024-05-23 18:41] LABS: Glucose, Whole Blood 206 mg/dL (60-115)
[2024-05-23] MEDS: Ketorolac Tromethamine 30 MG/ML VIAL IM (19:26)
--- NOTE | 2024-05-23 19:27 | ED.GENADULT ---
HPI - General Adult General Chief complaint: Neck Pain/Injury Stated complaint: Neck pain, hx MS, POC 331 (donuts) Time Seen by Provider: 05/23/24 19:10 Source: patient, RN notes reviewed and old records reviewed Mode of arrival: EMS Limitations: no limitations History of Present Illness ED Provider: Leticia HPI narrative: 38-year-old male past medical history significant for multiple sclerosis, neurogenic bladder with chronic Villatoro, bed-bound presents for evaluation of left-sided neck pain. Patient states that he fell asleep on the couch with his head tilted to the left. He is unsure how long he was stuck like this Patient reports that when he woke up he had left-sided neck pain and was unable to straighten himself out He reports that it was about 30 minutes before someone who is able to come helps him up straight He did not suffer any falls. Denies any fevers, chills. He states that his pain is improving He took some Tylenol prior to the ambulance picking him up with minimal relief of his symptoms Patient states that he lives at home with both of his parents, it is unusual for both of them to leave the house at the same time, but they did today. He feels safe being discharged back home Related Data Home Medications ?Medication ?Instructions ?Recorded ?Confirmed cholecalciferol (vitamin D3) 50 1 cap PO QAM 09/18/21 02/22/24 mcg (2,000 unit) capsule multivitamin 1 tab PO DAILY 08/20/22 02/22/24 omega-3 300 mg-dha 120 mg-epa 180 1 cap PO DAILY 08/20/22 02/22/24 mg-fish oil 1,000 mg capsule prednisone 20 mg tablet 20 mg PO DAILY 02/22/24 02/22/24 sertraline 50 mg tablet 50 mg PO QAM 02/22/24 02/22/24 tizanidine 2 mg tablet 2 mg PO BEDTIME PRN Muscle Spasm 02/22/24 02/22/24 tizanidine 2 mg tablet 2 mg PO QAM 02/22/24 02/22/24 Previous Rx's ?Medication ?Instructions ?Recorded catheter 20 Fr (Villatoro Catheter) #2 ea 01/06/24 catheterization tray (Villatoro #2 ea 01/06/24 Catheter Tray) syringe disposable, irrigation 60 #2 ea 01/06/24 mL urinary bag (Bardia Urinary #2 ea 01/06/24 Drainage Bag) urinary bag (Urinary Leg Bag) #4 ea 01/06/24 cefuroxime axetil 250 mg tablet 250 mg PO BID 7 days #14 tabs 03/07/24 cefuroxime axetil 250 mg tablet 250 mg PO BID 7 days #14 tabs 03/07/24 cefuroxime axetil 500 mg tablet 500 mg PO BID #19 tabs 04/08/24 ascorbic acid (vitamin C) 500 mg 500 mg PO BID 90 days #180 tabs 05/12/24 tablet (Vitamin C) methenamine hippurate 1 gram tablet 1 g PO DAILY 90 days #90 tabs 05/12/24 tramadol 50 mg tablet 50 mg PO Q8H PRN severe pain 05/23/24 (scale score 7-10) #10 tabs Allergies Allergy/AdvReac Type Severity Reaction Status Date / Time No Known Allergies Allergy Verified 05/23/24 18:36 [No Known Allergies*] Review of Systems Constitutional: Constitutional: Denies body ache(s), Denies chills, Denies fever(s) and Denies headache(s) Eyes: Eyes: Denies blurry vision ENT: Denies vertigo, Denies dizziness, Denies headache(s) and Reports neck pain Cardiovascular: Cardiovascular: Denies chest pain and Denies dyspnea Respiratory: Respiratory: Denies cough and Denies dyspnea Gastrointestinal: Gastrointestinal: Denies abdominal pain, Denies nausea and Denies vomiting Musculoskeletal: Musculoskeletal: Denies back pain, Reports neck pain, Denies radiating pain into limb and Reports stiffness Integumentary/Breasts: Skin/Breast: Denies rash Neurologic: Denies vertigo, Denies dizziness and Denies headache(s) [facility] Past Medical History Medical History 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 Microcytic anemia Multiple sclerosis Headache Surgical History H/O hernia repair Family History Family History Other No family history of coronary artery disease Social History Social History Household Members: Family Housing: Apartment 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 have visiting nurse or other home services: Yes Unable to assess alcohol history related to: Unknown Alcohol intake: never Patient Tobacco Use Status: Never used Tobacco Tobacco use type: Cigarette Cigarettes Per Day: 0.25 Substance Use Type: Marijuana Advance Directives: Yes Advance Directives on File: Yes Advance Directives Date on File: 08/21/22 service: No Current occupational status: disabled Physical Exam ED Vital Signs: Vital Signs - 24 hr 05/23/24 18:32 Temperature 97.8 F Pulse Rate 91 Respiratory Rate 16 Blood Pressure 125/85 Pulse Oximetry 96 Oxygen Delivery Method Room Air BMI result Body Mass Index 33.1 Const General: healthy appearing, comfortable, no acute distress, alert and awake Nutritional Appearance: well nourished Orientation/consciousness: patient oriented x3 HENMT Head: Yes normocephalic and Yes atraumatic Eyes Eyelids: Yes eyelids normal Conjunctivae: conjunctivae normal Sclerae: sclerae normal Corneas: corneas normal Pupils: Equal, round and reactive pupils present EOM: EOMs intact bilaterally Neck Other: Mild left cervical paraspinous muscle tenderness and left trapezius tenderness. No vertebral tenderness. Resp Effort & Inspection: normal respiratory effort, able to speak in complete sentences and not labored GI Inspection: No distended Palpation (GI): Soft to palpation, not firm, nontender, no guarding and not rigid Skin General skin exam: elasticity normal Neuro General: patient oriented x3 Cranial nerves: Yes Equal, round and reactive pupils present and Yes Bilaterally intact EOM present Cognition (Neuro): normal cognition Extrem Other: Moving all extremities well without any obvious deformities Medications Administered Discontinued Medications Generic Name Dose Route Start Last Admin Trade Name Freq PRN Reason Stop Dose Admin Ketorolac Tromethamine 30 mg 05/23/24 19:19 05/23/24 19:26 Ketorolac Tromethamine 30 Mg/Ml Vial IM 05/23/24 19:20 30 mg ONCE ONE Administration Medical Decision Making Medical Decision Making MDM Narrative: 38-year-old male presents for evaluation left-sided neck pain after sleeping in an awkward position for an unknown period of time. He did not suffer any trauma, his pain is already improving, there are no acute neuro deficits. Will treat his pain with Toradol. The patient feels safe being discharged back home with his family. He has no interest in rehab placement at this time Differential Diagnosis Differential Diagnoses: The differential diagnosis associated with the presentation includes Cervical strain Spasmodic torticollis Acute neck pain Muscle spasm Lab Data Labs: Lab Results 05/23/24 Range/Units 18:32 POC Glucose 206 H (60-115) mg/dL Discharge Plan Discharge Clinical Impression: Strain of neck muscle Patient Disposition: Home, Self-Care Instructions: Cervical Strain (ED) Additional Instructions: You may continue to use ibuprofen/Tylenol as needed for pain Take all of your other medications as prescribed Use tramadol as needed for severe breakthrough pain that is unrelieved with ibuprofen/Tylenol This may make you sleepy, did not drink alcohol or drive after taking it Follow-up with your primary doctor, return for new or worsening symptoms Prescriptions: New tramadol 50 mg tablet 50 mg PO Q8H PRN (Reason: severe pain (scale score 7-10)) Qty: 10 0RF No Action (DME) Urinary Leg Bag Misc See Rx Instructions .Route Qty: 4 5RF Rx Instructions: As directed, 4 per month (DME) Villatoro Catheter 20 Fr misc See Rx Instructions .Route Qty: 2 5RF Rx Instructions: As directed, 2 per month (DME) Villatoro Catheter Tray Tray See Rx Instructions .Route Qty: 2 5RF Rx Instructions: As directed 2 per month (DME) syringe disposable, irrigation 60 mL syringe See Rx Instructions .Route Qty: 2 5RF Rx Instructions: As directed 2 per month (DME) Bardia Urinary Drainage Bag Misc See Rx Instructions .Route Qty: 2 5RF Rx Instructions: As directed, 2 per month ascorbic acid (vitamin C) [Vitamin C] 500 mg tablet 500 mg PO BID 90 Days Qty: 180 1RF methenamine hippurate 1 gram tablet 1 g PO DAILY 90 Days Qty: 90 1RF cholecalciferol (vitamin D3) 50 mcg (2,000 unit) capsule 1 cap PO QAM multivitamin Tablet 1 tab PO DAILY omega 6-swe-fux-fish oil 300 mg (120 mg- 180mg)-1,000 mg capsule 1 cap PO DAILY tizanidine 2 mg tablet 2 mg PO QAM prednisone 20 mg tablet 20 mg PO DAILY sertraline 50 mg tablet 50 mg PO QAM tizanidine 2 mg Tablet 2 mg PO BEDTIME PRN (Reason: Muscle Spasm) cefuroxime axetil 500 mg tablet 500 mg PO BID Qty: 19 0RF cefuroxime axetil 250 mg tablet 250 mg PO BID 7 Days Qty: 14 0RF cefuroxime axetil 250 mg tablet 250 mg PO BID 7 Days Qty: 14 0RF Print Language: Telugu
[2024-05-23 19:48] VITALS: BP 142/95; PULSE 81; RESP 16; TEMP 36.5; O2SAT 97
--- NOTE | 2024-05-23 19:51 | MHC.EDTECH ---
Patient asked for something to drink .had diet araceli darwin .
[2024-05-23 19:53] VITALS: BP 142/95; PULSE 81; RESP 16; TEMP 36.5; O2SAT 97
--- NOTE | 2024-05-23 21:05 | PC.NURSE ---
spoke to family they will be home
== END 2024-05-23 21:57 | disposition home or self-care (01) ==
PROVIDERS: Emergency Provider Emergency Medicine; PCP Internal Medicine Geriatric Medicine
DX: S16.1XXA Strain of muscle, fascia and tendon at neck level, initial encounter (principal); M54.2 Cervicalgia; R79.89 Other specified abnormal findings of blood chemistry; F12.90 Cannabis use, unspecified, uncomplicated; X58.XXXA Exposure to other specified factors, initial encounter; Y93.9 Activity, unspecified; Y92.89 Other specified places as the place of occurrence of the external cause; Y99.8 Other external cause status
CPT/HCPCS: 82947; 96372; 99283; 99284; J1885

== ENCOUNTER 2024-06-01 04:13 | Emergency (ER) | payer OTHER, SELFPAY ==
[2024-06-01 04:21] VITALS: BP 141/92; BP 146/92; PULSE 61; PULSE 72; RESP 16; TEMP 36.8; O2SAT 95; O2SAT 99; BMI 25.9
[2024-06-01 04:46] LABS: Basophils Percent Auto 0.4 % (0-2); Eosinophils Absolute Auto 0.1 X10*3/uL (0.0-0.4); Hemoglobin 13.4 g/dl (14.0-18.0); Imm Gran Abs Auto 0.03 X10*3/uL (0.00-0.03); Imm Gran Pct Auto 0.3 % (0.0-0.4); Lymphocytes Percent Auto 21.2 % (20-40); Mean Corpuscular HGB Conc 33.5 g/dl (31.0-36.0); Mean Corpuscular Hemoglobin 26.2 pg (27.0-33.0); Mean Corpuscular Volume 78.3 fL (80.0-98.0); Mean Platelet Volume 11.4 fL (9.4-12.4); Monocytes Absolute Auto 1.5 X10*3/uL (0.1-1.2); Monocytes Percent Auto 15.5 % (2-11); Neutrophils Absolute Auto 5.9 x10*3/uL (2.0-8.3); Neutrophils Percent Auto 61.6 % (45-73); Platelet Count 239 X10*3/uL (160-400); Red Blood Count 5.11 X10*6/uL (4.60-5.80); Red Cell Distribution Width 14.1 % (11.0-16.0); White Blood Count 9.6 X10*3/uL (4.8-10.8)
[2024-06-01 04:47] LABS: Appearance Urine Turbid; Color Urine Yellow; Glucose Urine UA Negative (Negative); Leukocyte Esterase Urine Moderate (2+) (Negative); Nitrite Urine Negative (Negative); PH >= 9.0 (5.0-9.0); Specific Gravity - Urine 1.015 (1.005-1.025); UMIC TRIGGER UACC YES; Urine Blood Negative (Negative); Urine Ketones Negative (Negative); Urine Protein 300 (3+) mg/dL (Neg-Trace)
[2024-06-01 04:47] LABS: MANUAL DIFF FLAG NO
[2024-06-01 04:59] LABS: Bacteria Urine 4+ (None Seen); Hyaline Casts Urine 0-2 /LPF (0-2); Other Crystals Urine Present; RBC Urine 0-2 /HPF (0-2); WBC Urine 0-5 /HPF (0-5)
[2024-06-01 05:05] LABS: Anion Gap 18 (12-20); Blood Urea Nitrogen 16 mg/dL (9-16); Calcium 9.8 mg/dL (8.4-10.2); Carbon Dioxide 24 mmol/L (22-29); Chloride 105 mmol/L (96-108); Creatinine Clr Calc Pharmacy 140.2; Estimated Glomerular Filt Rate > 60; Glucose Random 90 mg/dL (60-115); Potassium 3.7 mmol/L (3.3-5.1); Sodium 143 mmol/L (135-145)
--- NOTE | 2024-06-01 05:41 | PC.NURSE ---
original suprapubic catheter discontinued. new 20Fr/5cc suprapubic catheter placed by dr. hall. pt tolerated well. 200ml of cloudy/foul smelling urine noted immediately post output. new urine obtained/sent to lab.
[2024-06-01 05:42] VITALS: BP 124/76; PULSE 72; RESP 16; TEMP 36.9; O2SAT 98
--- NOTE | 2024-06-01 05:44 | ED_ITS ---
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 Cath was last changed 05/16. He denies fevers, n/v. He is asking for a new catheter. Complaint: other (burciaga catheter issue) Onset (ago): hour(s) (several) Duration: constant Location: abdomen Radiation: penis Severity: severe Quality: aching Relieving factors: none Exacerbating factors: none Context: other (blocked catheter) Associated symptoms: Reports urinary retention Related Data Home Medications ?Medication ?Instructions ?Recorded ?Confirmed cholecalciferol (vitamin D3) 50 1 cap PO QAM 09/18/21 02/22/24 mcg (2,000 unit) capsule multivitamin 1 tab PO DAILY 08/20/22 02/22/24 omega-3 300 mg-dha 120 mg-epa 180 1 cap PO DAILY 08/20/22 02/22/24 mg-fish oil 1,000 mg capsule prednisone 20 mg tablet 20 mg PO DAILY 02/22/24 02/22/24 sertraline 50 mg tablet 50 mg PO QAM 02/22/24 02/22/24 tizanidine 2 mg tablet 2 mg PO BEDTIME PRN Muscle Spasm 02/22/24 02/22/24 tizanidine 2 mg tablet 2 mg PO QAM 02/22/24 02/22/24 Previous Rx's ?Medication ?Instructions ?Recorded catheter 20 Fr (Burciaga Catheter) #2 ea 01/06/24 catheterization tray (Burciaga #2 ea 01/06/24 Catheter Tray) syringe disposable, irrigation 60 #2 ea 01/06/24 mL urinary bag (Bardia Urinary #2 ea 01/06/24 Drainage Bag) urinary bag (Urinary Leg Bag) #4 ea 01/06/24 cefuroxime axetil 250 mg tablet 250 mg PO BID 7 days #14 tabs 03/07/24 cefuroxime axetil 250 mg tablet 250 mg PO BID 7 days #14 tabs 03/07/24 cefuroxime axetil 500 mg tablet 500 mg PO BID #19 tabs 04/08/24 ascorbic acid (vitamin C) 500 mg 500 mg PO BID 90 days #180 tabs 05/12/24 tablet (Vitamin C) methenamine hippurate 1 gram tablet 1 g PO DAILY 90 days #90 tabs 05/12/24 tramadol 50 mg tablet 50 mg PO Q8H PRN severe pain 05/23/24 (scale score 7-10) #10 tabs levofloxacin 750 mg tablet 750 mg PO DAILY #9 tabs 06/01/24 nitrofurantoin 100 mg PO BID 7 days #14 caps 06/01/24 monohydrate/macrocrystals 100 mg capsule (Macrobid) Allergies Allergy/AdvReac Type Severity Reaction Status Date / Time No Known Allergies Allergy Verified 06/01/24 04:24 [No Known Allergies*] Review of Systems 2 Review of Systems: Constitutional : No Weight loss, No Fever, No Chills ENT/Mouth : No sore throat, No Rhinorrhea Eyes: No Swelling, No Redness Cardiovascular : No Chest Pain, No SOB, NoEdema Respiratory : No Cough, No Sputum, No Wheezing Gastrointestinal : no Nausea, no Vomiting, no Diarrhea, positive abdominal Pain, No Hematochezia, No Melena Genitourinary : No Dysuria, No Urinary Frequency, No Hematuria, No Urgency , pos retentioin Musculoskeletal : No joint pain, No Myalgias, No Joint Swelling Skin : No Skin Lesions, No rash Neuro : No Weakness, No Numbness, No Dizziness, No Headache All other systems reviewed and are negative. [facility] Past Medical History Attestation statement: The following information was validated with the patient. 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 Microcytic anemia Multiple sclerosis Headache Surgical History H/O hernia repair Family History Family History Other No family history of coronary artery disease Social History Social History Household Members: Family Housing: Apartment 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 have visiting nurse or other home services: Yes Unable to assess alcohol history related to: Unknown Alcohol intake: never Patient Tobacco Use Status: Never used Tobacco Tobacco use type: Cigarette Cigarettes Per Day: 0.25 Substance Use Type: Marijuana Advance Directives: Yes Advance Directives on File: Yes Advance Directives Date on File: 08/21/22 Do you have a plan to hurt others: No Plan service: No Current occupational status: disabled Physical Exam 2 Vital Signs: Vital Signs: Last Vital Signs Temp 98.4 F 06/01/24 05:42 Pulse 72 06/01/24 05:42 Resp 16 06/01/24 05:42 BP 124/76 06/01/24 05:42 Pulse Ox 98 06/01/24 05:42 O2 Del Method Room Air 06/01/24 05:42 BMI result Body Mass Index 25.9 Appearance: Alert. Oriented X3. No acute distress. Eyes: Pupils equal, round and reactive to light. ENT: Pharynx normal. Neck: Normal inspection. Neck supple. CVS: Normal heart rate and rhythm. Pulses normal. Respiratory: No respiratory distress. Breath sounds normal. Abdomen: Soft and full suprapubic area, cath site some sediment noted but no ext cellulitis in burciaga catheter sediment noted Skin: Skin warm and dry. Normal skin color. Normal skin turgor. Extremities: No lower extremity edema. No calf ttp Neuro: Oriented X 3. No motor deficit. No sensory deficit. Medical Decision Making Medical Decision Making [facility] Narrative: 38 yo male with PMH of chronic suprapubic catheter prior CAUTI, neuromyelitis optica spectrum disorder here with blocked suprapubic at this time will replace obtain labs and send off UA suspect infection causing symptoms given sediment in the line. He is not toxic no fevers, chills n/v. Differential Diagnosis Differential Diagnoses: The differential diagnosis associated with the presentation includes UTI, retention Admission/Observation Consideration of admission/observation: Escalation of care including admission/observation considered afebrile no wbc count can be treated with dual levofloxacin and macrobid based off prior cultures Lab Data [facility] Lab Attestation statement: I reviewed the patient's lab results. 06/01/24 04:42 06/01/24 04:42 Labs: Lab Results 06/01/24 06/01/24 06/01/24 Range/Units 04:33 04:42 05:40 WBC 9.6 (4.8-10.8) X10*3/uL RBC 5.11 (4.60-5.80) X10*6/uL Hgb 13.4 L (14.0-18.0) g/dl Hct 40.0 L (42.0-52.0) % MCV 78.3 L (80.0-98.0) fL MCH 26.2 L (27.0-33.0) pg MCHC 33.5 (31.0-36.0) g/dl RDW 14.1 (11.0-16.0) % Plt Count 239 D (160-400) X10*3/uL MPV 11.4 (9.4-12.4) fL Immature Gran % (Auto) 0.3 (0.0-0.4) % Neut % (Auto) 61.6 (45-73) % Lymph % (Auto) 21.2 (20-40) % [place] % (Auto) 15.5 H (2-11) % Eos % (Auto) 1.0 (0-4) % Baso % (Auto) 0.4 (0-2) % Lymph # (Auto) 2.0 (1.2-4.9) X10*3/uL [place] # (Auto) 1.5 H (0.1-1.2) X10*3/uL Eos # (Auto) 0.1 (0.0-0.4) X10*3/uL Baso # (Auto) 0.0 (0.0-0.2) X10*3/uL Abs Immat Gran (auto) 0.03 (0.00-0.03) X10*3/uL Absolute Neuts (auto) 5.9 (2.0-8.3) x10*3/uL Absolute Nucleated RBC 0.000 (0.0-0.012) X10*3/uL Nucleated RBC % (auto) 0.0 (0.0-0.2) /100WBC Sodium 143 (135-145) mmol/L Potassium 3.7 (3.3-5.1) mmol/L Chloride 105 (96-108) mmol/L Carbon Dioxide 24 (22-29) mmol/L Anion Gap 18 (12-20) BUN 16 (9-16) mg/dL Creatinine 0.73 (0.5-1.4) mg/dL Estim Creat Clear Calc 140.2 Estimated GFR > 60 Random Glucose 90 (60-115) mg/dL Calcium 9.8 D (8.4-10.2) mg/dL Urine Color Yellow Yellow Urine Appearance Turbid Turbid Urine pH >= 9.0 8.5 (5.0-9.0) Ur Specific [place] 1.015 1.010 (1.005-1.025) Urine Protein 300 (3+) H 300 (3+) H (Neg-Trace) mg/dL Urine Glucose (UA) Negative Negative (Negative) mg/dL Urine Ketones Negative Negative (Negative) mg/dL Urine Blood Negative Moderate (2+) H (Negative) Urine Nitrite Negative Positive H (Negative) Ur Leukocyte Esterase Moderate (2+) H Large (3+) H (Negative) Urine RBC 0-2 3-5 H (0-2) /HPF Urine WBC 0-5 6-10 (0-5) /HPF Ur Squamous Epith Cells 3-5 0-2 (0-2) /HPF Other Crystals Present Present Urine Bacteria 4+ 3+ (None Seen) Hyaline Casts 0-2 0-2 (0-2) /LPF Independent Historian Clinical information obtained from an independent historian. History obtained from or confirmed by: EMS External Record Review External record reviewed: Inpatient record and Prior outpatient labs Procedures Catheter Insertion (Urinary) Date of insertion: 06/01/24 Time of insertion: 05:30 Reason for placing: Yes Reason for placing indwelling catheter: Other (chronic suprapubic) Patient has the following: history of catheter associated urinary tract infection Bladder scan/ultrasound used before catheterization: No Antiseptic solution prep: Povidone-Iodine Topical anesthesia used: No Catheter type/location: Suprapubic Size (Estonian): 20 Catheter balloon size (mL): 5 Catheter balloon amount: 5 Results: successfully catheterized-immediate flow Procedure performed: without complications Discharge Plan Discharge Clinical Impression: Catheter-associated urinary tract infection Qualifiers: Indwelling urinary catheter type: indwelling urethral catheter Encounter type: subsequent encounter Qualified Code(s): T83.511D - Infection and inflammatory reaction due to indwelling urethral catheter, subsequent encounter Suprapubic catheter dysfunction Qualifiers: Encounter type: initial encounter Qualified Code(s): T83.010A - Breakdown (mechanical) of cystostomy catheter, initial encounter Patient Disposition: Home, Self-Care Instructions: How to Care for Your Suprapubic Catheter (DC), Catheter- associated Urinary Tract Infection (ED) Additional Instructions: suprapubic catheter changed on 06/01 20 kuwaiti placed normal labs and kidney function based off prior cultures until culture back best to start on levofloxacin and macrobid return for fevers, chills, vomiting or any other concerns Prescriptions: New nitrofurantoin monohyd/m-cryst [Macrobid] 100 mg capsule 100 mg PO BID 7 Days Qty: 14 0RF Rx Instructions: must administer with a meal/food levofloxacin 750 mg tablet 750 mg PO DAILY Qty: 9 0RF No Action (DME) Urinary Leg Bag Misc See Rx Instructions .Route Qty: 4 5RF Rx Instructions: As directed, 4 per month (DME) Burciaga Catheter 20 Fr misc See Rx Instructions .Route Qty: 2 5RF Rx Instructions: As directed, 2 per month (DME) Burciaga Catheter Tray Tray See Rx Instructions .Route Qty: 2 5RF Rx Instructions: As directed 2 per month (DME) syringe disposable, irrigation 60 mL syringe See Rx Instructions .Route Qty: 2 5RF Rx Instructions: As directed 2 per month (DME) Bardia Urinary Drainage Bag Misc See Rx Instructions .Route Qty: 2 5RF Rx Instructions: As directed, 2 per month ascorbic acid (vitamin C) [Vitamin C] 500 mg tablet 500 mg PO BID 90 Days Qty: 180 1RF methenamine hippurate 1 gram tablet 1 g PO DAILY 90 Days Qty: 90 1RF cholecalciferol (vitamin D3) 50 mcg (2,000 unit) capsule 1 cap PO QAM multivitamin Tablet 1 tab PO DAILY omega 2-heb-avd-fish oil 300 mg (120 mg- 180mg)-1,000 mg capsule 1 cap PO DAILY tizanidine 2 mg tablet 2 mg PO QAM prednisone 20 mg tablet 20 mg PO DAILY sertraline 50 mg tablet 50 mg PO QAM tizanidine 2 mg Tablet 2 mg PO BEDTIME PRN (Reason: Muscle Spasm) cefuroxime axetil 500 mg tablet 500 mg PO BID Qty: 19 0RF tramadol 50 mg tablet 50 mg PO Q8H PRN (Reason: severe pain (scale score 7-10)) Qty: 10 0RF cefuroxime axetil 250 mg tablet 250 mg PO BID 7 Days Qty: 14 0RF cefuroxime axetil 250 mg tablet 250 mg PO BID 7 Days Qty: 14 0RF Print Language: Croatian
[2024-06-01 05:54] LABS: Appearance Urine Turbid; Color Urine Yellow; Glucose Urine UA Negative (Negative); Nitrite Urine Positive (Negative); PH 8.5 (5.0-9.0); UACC Culture Trigger YES; Urine Blood Moderate (2+) (Negative); Urine Ketones Negative (Negative); Urine Protein 300 (3+) mg/dL (Neg-Trace)
[2024-06-01 05:55] LABS: Leukocyte Esterase Urine Large (3+) (Negative); UMIC TRIGGER UACC YES
[2024-06-01 05:59] LABS: Bacteria Urine 3+ (None Seen); Hyaline Casts Urine 0-2 /LPF (0-2); Other Crystals Urine Present; Squamous Epithelial Cell Urine 0-2 /HPF (0-2)
[2024-06-01] MEDS: Nitrofurantoin Monohyd/M-Cryst 100 MG CAPSULE PO (06:20)
[2024-06-01] MEDS: levoFLOXacin 750 MG TABLET PO (06:20)
--- NOTE | 2024-06-01 06:32 | PC.NURSE ---
pt medicated per provider order. swallows pills whole w/ applesauce. pt tolerated well. pt waiting for transportation home via BLS at this time.
[2024-06-01 06:48] VITALS: BP 124/76; PULSE 72; RESP 16; TEMP 36.9; O2SAT 98
--- NOTE | 2024-06-01 06:48 | PC.NURSE ---
report given to PHILLY gramajo at this time. pt being transported home.
== END 2024-06-01 06:48 | disposition home or self-care (01) ==
PROVIDERS: Emergency Provider Emergency Medicine
DX: T83.511A Infection and inflammatory reaction due to indwelling urethral catheter, initial encounter (principal); N39.0 Urinary tract infection, site not specified; Y73.8 Miscellaneous gastroenterology and urology devices associated with adverse incidents, not elsewhere classified; Y92.89 Other specified places as the place of occurrence of the external cause; Z79.899 Other long term (current) drug therapy
CPT/HCPCS: 36415; 51702; 51798; 80048; 81001; 85025; 87086; 99283

== ENCOUNTER 2024-07-09 14:58 | Emergency (ER) | payer OTHER, SELFPAY ==
[2024-07-09 15:05] VITALS: BP 137/90; BP 168/110; PULSE 80; PULSE 84; RESP 16; TEMP 36.9; O2SAT 95; O2SAT 96; BMI 25.7
[2024-07-09 17:07] LABS: MANUAL DIFF FLAG NO
[2024-07-09 17:12] LABS: Appearance Urine Turbid; Basophils Percent Auto 0.3 % (0-2); Color Urine Yellow; Eosinophils Percent Auto 0.1 % (0-4); Glucose Urine UA Negative (Negative); Hemoglobin 12.7 g/dl (14.0-18.0); Imm Gran Abs Auto 0.09 X10*3/uL (0.00-0.03); Imm Gran Pct Auto 0.7 % (0.0-0.4); Leukocyte Esterase Urine Large (3+) (Negative); Lymphocytes Absolute Auto 0.5 X10*3/uL (1.2-4.9); Mean Corpuscular HGB Conc 32.6 g/dl (31.0-36.0); Mean Corpuscular Volume 79.9 fL (80.0-98.0); Mean Platelet Volume 12.6 fL (9.4-12.4); Monocytes Absolute Auto 0.8 X10*3/uL (0.1-1.2); Neutrophils Absolute Auto 11.4 x10*3/uL (2.0-8.3); Neutrophils Percent Auto 88.9 % (45-73); Nitrite Urine Positive (Negative); PH >= 9.0 (5.0-9.0); Platelet Count 258 X10*3/uL (160-400); Red Blood Count 4.88 X10*6/uL (4.60-5.80); Red Cell Distribution Width 15.8 % (11.0-16.0); Specific Gravity - Urine 1.015 (1.005-1.025); UMIC TRIGGER UACC YES; Urine Blood Moderate (2+) (Negative); Urine Ketones Negative (Negative); Urine Protein 100 (2+) mg/dL (Neg-Trace); White Blood Count 12.8 X10*3/uL (4.8-10.8)
[2024-07-09 17:25] LABS: Alanine Aminotransferase 13 U/L (0-40); Alkaline Phosphatase 48 U/L (39-117); Anion Gap 12 (12-20); Aspartate Amino Transferase 11 U/L (5-37); Bilirubin Total 0.2 mg/dL (0.0-1.0); Blood Urea Nitrogen 14 mg/dL (9-16); Calcium 9.4 mg/dL (8.4-10.2); Carbon Dioxide 29 mmol/L (22-29); Chloride 107 mmol/L (96-108); Estimated Glomerular Filt Rate > 60; Glucose Random 120 mg/dL (60-115); Magnesium 2.1 mg/dL (1.6-2.6); Potassium 3.9 mmol/L (3.3-5.1); Sodium 144 mmol/L (135-145); Total Protein 7.1 g/dL (6.5-8.0)
[2024-07-09 17:35] LABS: Bacteria Urine 4+ (None Seen); Hyaline Casts Urine 0-2 /LPF (0-2); Squamous Epithelial Cell Urine 0-2 /HPF (0-2); UACC Culture Trigger YES; WBC Urine >50 /HPF (0-5)
--- NOTE | 2024-07-09 18:04 | ED_ITS ---
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 Patient states the his catheter stopped draining urine this morning. He now has a pressure sense in the bladder. Denies recent fevers or vomiting. Related Data Home Medications ?Medication ?Instructions ?Recorded ?Confirmed cholecalciferol (vitamin D3) 50 1 cap PO QAM 09/18/21 02/22/24 mcg (2,000 unit) capsule multivitamin 1 tab PO DAILY 08/20/22 02/22/24 omega-3 300 mg-dha 120 mg-epa 180 1 cap PO DAILY 08/20/22 02/22/24 mg-fish oil 1,000 mg capsule prednisone 20 mg tablet 20 mg PO DAILY 02/22/24 02/22/24 sertraline 50 mg tablet 50 mg PO QAM 02/22/24 02/22/24 tizanidine 2 mg tablet 2 mg PO BEDTIME PRN Muscle Spasm 02/22/24 02/22/24 tizanidine 2 mg tablet 2 mg PO QAM 02/22/24 02/22/24 Previous Rx's ?Medication ?Instructions ?Recorded catheter 20 Fr (Villatoro Catheter) #2 ea 01/06/24 catheterization tray (Villatoro #2 ea 01/06/24 Catheter Tray) syringe disposable, irrigation 60 #2 ea 01/06/24 mL urinary bag (Bardia Urinary #2 ea 01/06/24 Drainage Bag) urinary bag (Urinary Leg Bag) #4 ea 01/06/24 cefuroxime axetil 250 mg tablet 250 mg PO BID 7 days #14 tabs 03/07/24 cefuroxime axetil 250 mg tablet 250 mg PO BID 7 days #14 tabs 03/07/24 cefuroxime axetil 500 mg tablet 500 mg PO BID #19 tabs 04/08/24 ascorbic acid (vitamin C) 500 mg 500 mg PO BID 90 days #180 tabs 05/12/24 tablet (Vitamin C) methenamine hippurate 1 gram tablet 1 g PO DAILY 90 days #90 tabs 05/12/24 tramadol 50 mg tablet 50 mg PO Q8H PRN severe pain 05/23/24 (scale score 7-10) #10 tabs levofloxacin 750 mg tablet 750 mg PO DAILY #9 tabs 06/01/24 nitrofurantoin 100 mg PO BID 7 days #14 caps 06/01/24 monohydrate/macrocrystals 100 mg capsule (Macrobid) levofloxacin 750 mg tablet 750 mg PO DAILY 5 days #5 tabs 07/09/24 Allergies Allergy/AdvReac Type Severity Reaction Status Date / Time No Known Allergies Allergy Verified 07/09/24 15:07 [No Known Allergies*] Review of Systems 2 Review of Systems: Yes all other systems are reviewed and are negative Constitutional: Constitutional: Denies fatigue and Denies fever(s) Gastrointestinal: Gastrointestinal: Reports abdominal pain and Denies vomiting Endocrine: Endocrine: Denies fatigue PMFSH Past Medical History Attestation statement: The following information was validated with the patient. Medical History 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 Microcytic anemia Multiple sclerosis Headache Surgical History H/O hernia repair Family History Family History Other No family history of coronary artery disease Social History Social History Household Members: Family Housing: Apartment 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 have visiting nurse or other home services: Yes Unable to assess alcohol history related to: Unknown Alcohol intake: never Patient Tobacco Use Status: Never used Tobacco Tobacco use type: Cigarette Cigarettes Per Day: 0.25 Substance Use Type: Marijuana Advance Directives: Yes Advance Directives on File: Yes Advance Directives Date on File: 08/21/22 service: No Current occupational status: disabled Physical Exam 2 Vital Signs: Vital Signs: Last Vital Signs Temp 98.4 F 07/09/24 15:05 Pulse 84 07/09/24 15:05 Resp 16 07/09/24 15:05 BP 137/90 H 07/09/24 15:05 Pulse Ox 96 07/09/24 15:05 O2 Del Method Room Air 07/09/24 15:05 BMI result Body Mass Index 25.7 Const: Other: Awake, Orientation/consciousness: patient oriented x3 Resp: Effort & Inspection: normal respiratory effort Cardio: Other: Normal peripheral perfusion GI: Other: Abdomen is soft, there is no surrounding erythema or warmth noted at the site of the suprapubic catheter Skin: Other: Warm dry no rash Neuro: General: patient oriented x3 and CN's II-XI intact bilaterally Extrem: Other: Limited range of motion of lower extremities secondary to his neurologic disorder Psych: Other: Cooperative Medications Administered Discontinued Medications Generic Name Dose Route Start Last Admin Trade Name Freq PRN Reason Stop Dose Admin Acetaminophen 975 mg 07/09/24 16:32 07/09/24 17:11 Acetaminophen 325 Mg Tablet PO 07/09/24 16:33 Not Given ONCE ONE Medical Decision Making Medical Decision Making MDM Narrative: 38-year-old male with a history of chronic suprapubic catheter prior CAUTI, 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 Patient states the his catheter stopped draining urine this morning. He now has a pressure sense in the bladder. Denies recent fevers or vomiting. Problem: Chronic indwelling suprapubic cath, neurologic disorders History: Per patient I have considered the following differential diagnoses: UTI, urosepsis, pyelonephritis, Plan: The catheter was replaced with these, we will screen his urine and check basic labs. To note he is hemodynamically stable afebrile, without associated complaints to suggest pyelonephritis or urosepsis I have independently reviewed the following tests: Labs: Slight leukocytosis, not anemic, no electrolyte abnormality, creatinine at baseline, urine isn't infected. In review of prior urine cultures, he does grow Pseudomonas. We will cover with Levaquin Lab Data 07/09/24 17:00 07/09/24 17:00 Labs: Lab Results 07/09/24 Range/Units 17:00 WBC 12.8 H (4.8-10.8) X10*3/uL RBC 4.88 (4.60-5.80) X10*6/uL Hgb 12.7 L (14.0-18.0) g/dl Hct 39.0 L (42.0-52.0) % MCV 79.9 L (80.0-98.0) fL MCH 26.0 L (27.0-33.0) pg MCHC 32.6 (31.0-36.0) g/dl RDW 15.8 (11.0-16.0) % Plt Count 258 (160-400) X10*3/uL MPV 12.6 H (9.4-12.4) fL Immature Gran % (Auto) 0.7 H (0.0-0.4) % Neut % (Auto) 88.9 H (45-73) % Lymph % (Auto) 4.0 L (20-40) % [place] % (Auto) 6.0 (2-11) % Eos % (Auto) 0.1 (0-4) % Baso % (Auto) 0.3 (0-2) % Lymph # (Auto) 0.5 L (1.2-4.9) X10*3/uL [place] # (Auto) 0.8 (0.1-1.2) X10*3/uL Eos # (Auto) 0.0 (0.0-0.4) X10*3/uL Baso # (Auto) 0.0 (0.0-0.2) X10*3/uL Abs Immat Gran (auto) 0.09 H (0.00-0.03) X10*3/uL Absolute Neuts (auto) 11.4 H (2.0-8.3) x10*3/uL Absolute Nucleated RBC 0.000 (0.0-0.012) X10*3/uL Nucleated RBC % (auto) 0.0 (0.0-0.2) /100WBC Sodium 144 (135-145) mmol/L Potassium 3.9 (3.3-5.1) mmol/L Chloride 107 (96-108) mmol/L Carbon Dioxide 29 (22-29) mmol/L Anion Gap 12 (12-20) BUN 14 (9-16) mg/dL Creatinine 0.68 (0.5-1.4) mg/dL Estim Creat Clear Calc 160.0 Estimated GFR > 60 Random Glucose 120 H (60-115) mg/dL Calcium 9.4 (8.4-10.2) mg/dL Magnesium 2.1 (1.6-2.6) mg/dL Total Bilirubin 0.2 (0.0-1.0) mg/dL AST 11 (5-37) U/L ALT 13 (0-40) U/L Alkaline Phosphatase 48 (39-117) U/L Total Protein 7.1 (6.5-8.0) g/dL Albumin 4.0 (3.5-5.0) g/dL Urine Color Yellow Urine Appearance Turbid Urine pH >= 9.0 (5.0-9.0) Ur Specific [place] 1.015 (1.005-1.025) Urine Protein 100 (2+) H (Neg-Trace) mg/dL Urine Glucose (UA) Negative (Negative) mg/dL Urine Ketones Negative (Negative) mg/dL Urine Blood Moderate (2+) H (Negative) Urine Nitrite Positive H (Negative) Ur Leukocyte Esterase Large (3+) H (Negative) Urine RBC 11-20 H (0-2) /HPF Urine WBC >50 H (0-5) /HPF Ur Squamous Epith Cells 0-2 (0-2) /HPF Urine Bacteria 4+ (None Seen) Hyaline Casts 0-2 (0-2) /LPF Discharge Plan Discharge Clinical Impression: Complication, suprapubic catheter obstruction Catheter-associated urinary tract infection Qualifiers: Indwelling urinary catheter type: indwelling urethral catheter Encounter type: subsequent encounter Qualified Code(s): T83.511D - Infection and inflammatory reaction due to indwelling urethral catheter, subsequent encounter Patient Disposition: Home, Self-Care Instructions: Catheter-associated Urinary Tract Infection (ED) Additional Instructions: You were found to have a urinary tract infection. The remainder of your labs were normal. We exchanged the suprapubic catheter with a 20 Fr. Follow up with your healthcare provider within 3-5 days. Prescriptions: New levofloxacin 750 mg tablet 750 mg PO DAILY 5 Days Qty: 5 0RF No Action (DME) Urinary Leg Bag Misc See Rx Instructions .Route Qty: 4 5RF Rx Instructions: As directed, 4 per month (DME) Villatoro Catheter 20 Fr misc See Rx Instructions .Route Qty: 2 5RF Rx Instructions: As directed, 2 per month (DME) Villatoro Catheter Tray Tray See Rx Instructions .Route Qty: 2 5RF Rx Instructions: As directed 2 per month (DME) syringe disposable, irrigation 60 mL syringe See Rx Instructions .Route Qty: 2 5RF Rx Instructions: As directed 2 per month (DME) Bardia Urinary Drainage Bag Misc See Rx Instructions .Route Qty: 2 5RF Rx Instructions: As directed, 2 per month ascorbic acid (vitamin C) [Vitamin C] 500 mg tablet 500 mg PO BID 90 Days Qty: 180 1RF methenamine hippurate 1 gram tablet 1 g PO DAILY 90 Days Qty: 90 1RF cholecalciferol (vitamin D3) 50 mcg (2,000 unit) capsule 1 cap PO QAM multivitamin Tablet 1 tab PO DAILY omega 0-syo-wkd-fish oil 300 mg (120 mg- 180mg)-1,000 mg capsule 1 cap PO DAILY tizanidine 2 mg tablet 2 mg PO QAM prednisone 20 mg tablet 20 mg PO DAILY sertraline 50 mg tablet 50 mg PO QAM tizanidine 2 mg Tablet 2 mg PO BEDTIME PRN (Reason: Muscle Spasm) cefuroxime axetil 500 mg tablet 500 mg PO BID Qty: 19 0RF tramadol 50 mg tablet 50 mg PO Q8H PRN (Reason: severe pain (scale score 7-10)) Qty: 10 0RF cefuroxime axetil 250 mg tablet 250 mg PO BID 7 Days Qty: 14 0RF cefuroxime axetil 250 mg tablet 250 mg PO BID 7 Days Qty: 14 0RF nitrofurantoin monohyd/m-cryst [Macrobid] 100 mg capsule 100 mg PO BID 7 Days Qty: 14 0RF Rx Instructions: must administer with a meal/food levofloxacin 750 mg tablet 750 mg PO DAILY Qty: 9 0RF Print Language: Senegalese
[2024-07-09 18:51] VITALS: BP 125/83; PULSE 79; RESP 16; O2SAT 98
[2024-07-09] MEDS: levoFLOXacin 750 MG TABLET PO (18:53)
[2024-07-09 22:45] VITALS: BP 125/83; PULSE 79; RESP 16; TEMP -17.7; TEMP 0; O2SAT 98
== END 2024-07-09 22:45 | disposition home or self-care (01) ==
PROVIDERS: Physician Assistant Medical; Emergency Provider Internal Medicine; PCP Internal Medicine Geriatric Medicine
DX: T83.511A Infection and inflammatory reaction due to indwelling urethral catheter, initial encounter (principal); T83.098A Other mechanical complication of other urinary catheter, initial encounter; N39.0 Urinary tract infection, site not specified; Y73.8 Miscellaneous gastroenterology and urology devices associated with adverse incidents, not elsewhere classified; Y92.009 Unspecified place in unspecified non-institutional (private) residence as the place of occurrence of the external cause; G35 Multiple sclerosis; G36.0 Neuromyelitis optica [Devic]; N31.8 Other neuromuscular dysfunction of bladder; Z74.01 Bed confinement status; Z79.899 Other long term (current) drug therapy
CPT/HCPCS: 36415; 80053; 81001; 83735; 85025; 87086; 99283; 99284

== ENCOUNTER 2024-07-31 22:02 | Emergency (ER) | payer OTHER, SELFPAY ==
[2024-07-31 22:03] VITALS: BP 132/86; PULSE 84; O2SAT 97
[2024-07-31 22:07] VITALS: BP 138/91; PULSE 80; RESP 16; TEMP 36.8; O2SAT 97; BMI 31.4
--- NOTE | 2024-07-31 22:49 | ED.MALEGU ---
HPI - Male Genitourinary General Chief complaint: Urogenital-Male Stated complaint: UTI x1wk cath prob superpubic placed Source: patient and EMS Mode of arrival: EMS Limitations: no limitations History of Present Illness ED Provider: Dr. Rosibel Spear HPI Narrative: Patient comes to the emergency room complaining of a blocked suprapubic catheter. Patient states that he changed it yesterday and it was retained for him. However, since yesterday he has not produce much urine. Patient states that he believes it is clogged. Patient complaining of suprapubic pressure. Denies fever chills or flank pain. Related Data Home Medications ?Medication ?Instructions ?Recorded ?Confirmed cholecalciferol (vitamin D3) 50 1 cap PO QAM 09/18/21 02/22/24 mcg (2,000 unit) capsule multivitamin 1 tab PO DAILY 08/20/22 02/22/24 omega-3 300 mg-dha 120 mg-epa 180 1 cap PO DAILY 08/20/22 02/22/24 mg-fish oil 1,000 mg capsule prednisone 20 mg tablet 20 mg PO DAILY 02/22/24 02/22/24 sertraline 50 mg tablet 50 mg PO QAM 02/22/24 02/22/24 tizanidine 2 mg tablet 2 mg PO BEDTIME PRN Muscle Spasm 02/22/24 02/22/24 tizanidine 2 mg tablet 2 mg PO QAM 02/22/24 02/22/24 Previous Rx's ?Medication ?Instructions ?Recorded catheter 20 Fr (Villatoro Catheter) #2 ea 01/06/24 catheterization tray (Villatoro #2 ea 01/06/24 Catheter Tray) syringe disposable, irrigation 60 #2 ea 01/06/24 mL urinary bag (Bardia Urinary #2 ea 01/06/24 Drainage Bag) urinary bag (Urinary Leg Bag) #4 ea 01/06/24 cefuroxime axetil 250 mg tablet 250 mg PO BID 7 days #14 tabs 03/07/24 cefuroxime axetil 250 mg tablet 250 mg PO BID 7 days #14 tabs 03/07/24 cefuroxime axetil 500 mg tablet 500 mg PO BID #19 tabs 04/08/24 ascorbic acid (vitamin C) 500 mg 500 mg PO BID 90 days #180 tabs 05/12/24 tablet (Vitamin C) methenamine hippurate 1 gram tablet 1 g PO DAILY 90 days #90 tabs 05/12/24 tramadol 50 mg tablet 50 mg PO Q8H PRN severe pain 05/23/24 (scale score 7-10) #10 tabs levofloxacin 750 mg tablet 750 mg PO DAILY #9 tabs 06/01/24 nitrofurantoin 100 mg PO BID 7 days #14 caps 06/01/24 monohydrate/macrocrystals 100 mg capsule (Macrobid) levofloxacin 750 mg tablet 750 mg PO DAILY 5 days #5 tabs 07/09/24 Allergies Allergy/AdvReac Type Severity Reaction Status Date / Time No Known Allergies Allergy Verified 07/31/24 22:07 [No Known Allergies*] Review of Systems Review of Systems: Constitutional : No Weight loss, No Fever, No Chills, No Night Sweats, No Fatigue, No Malaise ENT/Mouth : No Hearing loss, No Ear Pain, No Nasal Congestion, No Sinus Pain, No Hoarseness, No sore throat, No Rhinorrhea, No Swallowing Difficulty Eyes: No Eye Pain, No Swelling, No Redness, No Foreign Body, No Discharge, No Vision Changes Cardiovascular : No Chest Pain, No SOB, No Dyspnea on Exertion, No Orthopnea, No Edema, No Palpitations Respiratory : No Cough, No Sputum, No Wheezing, No Smoke Exposure, No Dyspnea Gastrointestinal : No Nausea, No Vomiting, No Diarrhea, No Constipation, No abdominal Pain, No Hematochezia, No Melena Genitourinary : Complaining of a block suprapubic catheter, not producing enough urine., No Dysuria, No Urinary Frequency, No Hematuria, No Urinary Incontinence, No Urgency, No Flank Pain, No Urinary Flow Changes, No Hesitancy Musculoskeletal : No joint pain, No Myalgias, No Joint Swelling Skin : No Skin Lesions, No rash Neuro : No Weakness, No Numbness, No Paresthesias, No Loss of Consciousness, No Dizziness, No Headache Psych : No Anxiety/Panic, No Depression, No SI/HI/AH/VH, No Social Issues, Heme/Lymph: No Bruising, No Bleeding,No Lymphadenopathy Endocrine : No Polyuria, No Polydipsia, No Temperature Intolerance PMFSH Past Medical History Medical History 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 Microcytic anemia Multiple sclerosis Headache Surgical History H/O hernia repair Family History Family History Other No family history of coronary artery disease Social History Social History Household Members: Family Housing: Apartment 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 have visiting nurse or other home services: Yes Unable to assess alcohol history related to: Unknown Alcohol intake: never Patient Tobacco Use Status: Never used Tobacco Tobacco use type: Cigarette Cigarettes Per Day: 0.25 Substance Use Type: Marijuana Advance Directives: Yes Advance Directives on File: Yes Advance Directives Date on File: 08/21/22 Do you have a plan to hurt others: No Plan service: No Current occupational status: disabled Physical Exam Vital Signs: Vital Signs: Last Vital Signs Temp 98.2 F 07/31/24 22:07 Pulse 80 07/31/24 22:07 Resp 16 07/31/24 22:07 BP 138/91 H 07/31/24 22:07 Pulse Ox 97 07/31/24 22:07 O2 Del Method Room Air 07/31/24 22:07 BMI result Body Mass Index 31.4 Const: Other: Appearance: Alert. Oriented X3. No acute distress. Eyes: Pupils equal, round and reactive to light. ENT: Pharynx normal. Neck: Normal inspection. Neck supple. No lymph nodes noted. No crepitus CVS: Normal heart rate and rhythm. Pulses normal. Normal S1 and S2 Respiratory: No respiratory distress. Breath sounds normal. No Wheezing. No rales Abdomen: Soft and nontender. No rigidity. No distention. Suprapubic catheter in place. Bag has less than 50 mL of urine. Patient has a significantly distended bladder, palpable in the abdomen Skin: Skin warm and dry. Normal skin color. Normal skin turgor. Extremities: No lower extremity edema. No Lacerations. No Rash Neuro: Oriented X 3. No motor deficit. No sensory deficit. Moving all extremities. No slurred speech. CN 2 through 12 grossly intact Psych: calm, cooperative, normal affect Course Course Course Narrative: Patient has a 20 Green[place]ic, we will replace the suprapubic catheter Medical Decision Making Medical Decision Making MDM Narrative: Patient's suprapubic Villatoro catheter was removed and a new 20 Green[place]ic catheter was inserted, patient urinated more than 600, patient feeling much better. Denies any abdominal pain. -patient does not have any UTI symptoms. Patient is known to have a chronic colonizer due to suprapubic catheter, at this time, urinalysis not indicated. -patient is bagged leg was changed as well. Differential Diagnosis Differential Diagnoses: The differential diagnosis associated with the presentation includes (Suprapubic Villatoro catheter dysfunction) Critical Care Time Critical Care Time Critical Care Time: Yes Total Critical Care Time: 30 Attestation: I have personally provided critical care time. Time includes review of lab data, radiology results, discussion with consultants, and monitoring for potential decompensation. Intervention performed as documented. Discharge Plan Discharge Clinical Impression: Suprapubic catheter dysfunction Patient Disposition: Home, Self-Care Instructions: Villatoro Catheter Placement and Care (ED) Additional Instructions: Please follow-up with your primary care physician tomorrow. If you have any worsening or new symptoms, please return to the emergency room or call 911 Prescriptions: No Action (DME) Urinary Leg Bag Misc See Rx Instructions .Route Qty: 4 5RF Rx Instructions: As directed, 4 per month (DME) Villatoro Catheter 20 Fr misc See Rx Instructions .Route Qty: 2 5RF Rx Instructions: As directed, 2 per month (DME) Villatoro Catheter Tray Tray See Rx Instructions .Route Qty: 2 5RF Rx Instructions: As directed 2 per month (DME) syringe disposable, irrigation 60 mL syringe See Rx Instructions .Route Qty: 2 5RF Rx Instructions: As directed 2 per month (DME) Bardia Urinary Drainage Bag Misc See Rx Instructions .Route Qty: 2 5RF Rx Instructions: As directed, 2 per month ascorbic acid (vitamin C) [Vitamin C] 500 mg tablet 500 mg PO BID 90 Days Qty: 180 1RF methenamine hippurate 1 gram tablet 1 g PO DAILY 90 Days Qty: 90 1RF cholecalciferol (vitamin D3) 50 mcg (2,000 unit) capsule 1 cap PO QAM multivitamin Tablet 1 tab PO DAILY omega 4-[id number]-[id number]-fish oil 300 mg (120 mg- 180mg)-1,000 mg capsule 1 cap PO DAILY tizanidine 2 mg tablet 2 mg PO QAM prednisone 20 mg tablet 20 mg PO DAILY sertraline 50 mg tablet 50 mg PO QAM tizanidine 2 mg Tablet 2 mg PO BEDTIME PRN (Reason: Muscle Spasm) cefuroxime axetil 500 mg tablet 500 mg PO BID Qty: 19 0RF tramadol 50 mg tablet 50 mg PO Q8H PRN (Reason: severe pain (scale score 7-10)) Qty: 10 0RF levofloxacin 750 mg tablet 750 mg PO DAILY 5 Days Qty: 5 0RF cefuroxime axetil 250 mg tablet 250 mg PO BID 7 Days Qty: 14 0RF cefuroxime axetil 250 mg tablet 250 mg PO BID 7 Days Qty: 14 0RF nitrofurantoin monohyd/m-cryst [Macrobid] 100 mg capsule 100 mg PO BID 7 Days Qty: 14 0RF Rx Instructions: must administer with a meal/food levofloxacin 750 mg tablet 750 mg PO DAILY Qty: 9 0RF Print Language: Beninese
--- NOTE | 2024-08-01 00:32 | PC.NURSE ---
Dr. Spear into change suprapubic cath, agueda care, change into hospital attire, pt awaiting transportation.
[2024-08-01 00:35] VITALS: BP 124/90; PULSE 70; RESP 16; TEMP 36.9; O2SAT 95
--- NOTE | 2024-08-01 01:52 | PC.NURSE ---
pt is sleeping at this time, no sign of distress
[2024-08-01 02:43] VITALS: BP 128/89; PULSE 83; RESP 16; TEMP 36.8; O2SAT 97
--- NOTE | 2024-08-01 02:45 | PC.NURSE ---
Report given EMS, pt being transported home.
[2024-08-01 03:07] VITALS: BP 128/89; PULSE 83; RESP 16; TEMP 36.8; O2SAT 97
== END 2024-08-01 03:08 | disposition home or self-care (01) ==
PROVIDERS: Emergency Provider Emergency Medicine; PCP Internal Medicine Geriatric Medicine
DX: T83.098A Other mechanical complication of other urinary catheter, initial encounter (principal); Y73.8 Miscellaneous gastroenterology and urology devices associated with adverse incidents, not elsewhere classified; Y92.9 Unspecified place or not applicable
CPT/HCPCS: 51702; 99284

== ENCOUNTER 2024-08-12 06:16 | Emergency (ER) | payer OTHER, SELFPAY ==
[2024-08-12 06:38] VITALS: BP 117/82; BP 190/120; PULSE 101; PULSE 120; RESP 18; TEMP 36.8; O2SAT 95; O2SAT 98; BMI 27.7
[2024-08-12 06:43] LABS: Basophils Percent Auto 0.3 % (0-2); Eosinophils Absolute Auto 0.2 X10*3/uL (0.0-0.4); Eosinophils Percent Auto 1.6 % (0-4); Hematocrit 36.5 % (42.0-52.0); Hemoglobin 11.9 g/dl (14.0-18.0); Imm Gran Abs Auto 0.04 X10*3/uL (0.00-0.03); Imm Gran Pct Auto 0.4 % (0.0-0.4); Lymphocytes Percent Auto 10.2 % (20-40); MANUAL DIFF FLAG NO; Mean Corpuscular HGB Conc 32.6 g/dl (31.0-36.0); Mean Corpuscular Hemoglobin 25.7 pg (27.0-33.0); Mean Corpuscular Volume 78.8 fL (80.0-98.0); Monocytes Absolute Auto 1.4 X10*3/uL (0.1-1.2); Monocytes Percent Auto 13.9 % (2-11); Neutrophils Absolute Auto 7.4 x10*3/uL (2.0-8.3); Neutrophils Percent Auto 73.6 % (45-73); Platelet Count 217 X10*3/uL (160-400); Red Blood Count 4.63 X10*6/uL (4.60-5.80); White Blood Count 10.1 X10*3/uL (4.8-10.8)
--- NOTE | 2024-08-12 06:50 | ED_ITS ---
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 Patient states the his catheter stopped draining urine this morning. On arrival in the emergency department the catheter started draining. Patient currently has no complaints. Had a history of the same in the past. Related Data Home Medications ?Medication ?Instructions ?Recorded ?Confirmed cholecalciferol (vitamin D3) 50 1 cap PO QAM 09/18/21 02/22/24 mcg (2,000 unit) capsule multivitamin 1 tab PO DAILY 08/20/22 02/22/24 omega-3 300 mg-dha 120 mg-epa 180 1 cap PO DAILY 08/20/22 02/22/24 mg-fish oil 1,000 mg capsule prednisone 20 mg tablet 20 mg PO DAILY 02/22/24 02/22/24 sertraline 50 mg tablet 50 mg PO QAM 02/22/24 02/22/24 tizanidine 2 mg tablet 2 mg PO BEDTIME PRN Muscle Spasm 02/22/24 02/22/24 tizanidine 2 mg tablet 2 mg PO QAM 02/22/24 02/22/24 Previous Rx's ?Medication ?Instructions ?Recorded catheter 20 Fr (Villatoro Catheter) #2 ea 01/06/24 catheterization tray (Villatoro #2 ea 01/06/24 Catheter Tray) syringe disposable, irrigation 60 #2 ea 01/06/24 mL urinary bag (Bardia Urinary #2 ea 01/06/24 Drainage Bag) urinary bag (Urinary Leg Bag) #4 ea 01/06/24 cefuroxime axetil 250 mg tablet 250 mg PO BID 7 days #14 tabs 03/07/24 cefuroxime axetil 250 mg tablet 250 mg PO BID 7 days #14 tabs 03/07/24 cefuroxime axetil 500 mg tablet 500 mg PO BID #19 tabs 04/08/24 ascorbic acid (vitamin C) 500 mg 500 mg PO BID 90 days #180 tabs 05/12/24 tablet (Vitamin C) methenamine hippurate 1 gram tablet 1 g PO DAILY 90 days #90 tabs 05/12/24 tramadol 50 mg tablet 50 mg PO Q8H PRN severe pain 05/23/24 (scale score 7-10) #10 tabs levofloxacin 750 mg tablet 750 mg PO DAILY #9 tabs 06/01/24 nitrofurantoin 100 mg PO BID 7 days #14 caps 06/01/24 monohydrate/macrocrystals 100 mg capsule (Macrobid) levofloxacin 750 mg tablet 750 mg PO DAILY 5 days #5 tabs 07/09/24 Allergies Allergy/AdvReac Type Severity Reaction Status Date / Time No Known Allergies Allergy Verified 08/12/24 06:43 [No Known Allergies*] Review of Systems 2 Review of Systems: No fever no chills no abdominal pain. [facility] Past Medical History Attestation statement: The following information was validated with the patient. Medical History 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 Microcytic anemia Multiple sclerosis Headache Surgical History H/O hernia repair Family History Family History Other No family history of coronary artery disease Social History Social History Household Members: Family Housing: Apartment 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 have visiting nurse or other home services: Yes Unable to assess alcohol history related to: Unknown Alcohol intake: never Patient Tobacco Use Status: Never used Tobacco Tobacco use type: Cigarette Cigarettes Per Day: 0.25 Substance Use Type: Marijuana Advance Directives: Yes Advance Directives on File: Yes Advance Directives Date on File: 08/21/22 Do you have a plan to hurt others: No Plan service: No Current occupational status: disabled Physical Exam ED Vital Signs: Vital Signs - 24 hr 08/12/24 06:38 Temperature 98.2 F Pulse Rate 101 H Respiratory Rate 18 Blood Pressure 117/82 Pulse Oximetry 98 Oxygen Delivery Method Room Air BMI result Body Mass Index 27.7 Patient in no acute distress. Will get a bladder scan to rule out urinary retention. Baseline labs already sent. Patient's urine appear chronically colonized. Currently not having any fever chills no abdominal pain that is new. No nausea no vomiting. No systemic complaints. Medical Decision Making Medical Decision Making [facility] Narrative: Patient's bladder scan showed 36 cc of urine no evidence for retention the Villatoro is draining patient in no acute distress. White count is normal. Patient's electrolytes are normal. Urine consistent with having colonization with no symptoms. Will discharge patient home currently in stable condition. Differential Diagnosis Differential Diagnoses: The differential diagnosis associated with the presentation includes Urinary retention, Villatoro malfunction, urinary tract infection, obstruction Admission/Observation Consideration of admission/observation: Escalation of care including admission/observation considered Considered admission but given suprapubic catheter now draining. Patient no distress no fever no chills no systemic issues will discharge home Lab Data [facility] Lab Attestation statement: I reviewed the patient's lab results. 08/12/24 06:37 08/12/24 06:37 Labs: Lab Results 08/12/24 08/12/24 Range/Units 06:31 06:37 WBC 10.1 (4.8-10.8) X10*3/uL RBC 4.63 (4.60-5.80) X10*6/uL Hgb 11.9 L (14.0-18.0) g/dl Hct 36.5 L (42.0-52.0) % MCV 78.8 L (80.0-98.0) fL MCH 25.7 L (27.0-33.0) pg MCHC 32.6 (31.0-36.0) g/dl RDW 15.0 (11.0-16.0) % Plt Count 217 (160-400) X10*3/uL MPV 11.0 (9.4-12.4) fL Immature Gran % (Auto) 0.4 (0.0-0.4) % Neut % (Auto) 73.6 H (45-73) % Lymph % (Auto) 10.2 L (20-40) % Young % (Auto) 13.9 H (2-11) % Eos % (Auto) 1.6 (0-4) % Baso % (Auto) 0.3 (0-2) % Lymph # (Auto) 1.0 L (1.2-4.9) X10*3/uL Young # (Auto) 1.4 H (0.1-1.2) X10*3/uL Eos # (Auto) 0.2 (0.0-0.4) X10*3/uL Baso # (Auto) 0.0 (0.0-0.2) X10*3/uL Abs Immat Gran (auto) 0.04 H (0.00-0.03) X10*3/uL Absolute Neuts (auto) 7.4 (2.0-8.3) x10*3/uL Absolute Nucleated RBC 0.000 (0.0-0.012) X10*3/uL Nucleated RBC % (auto) 0.0 (0.0-0.2) /100WBC Sodium 144 (135-145) mmol/L Potassium 3.2 L (3.3-5.1) mmol/L Chloride 105 (96-108) mmol/L Carbon Dioxide 27 (22-29) mmol/L Anion Gap 15 (12-20) BUN 13 (9-16) mg/dL Creatinine 0.66 (0.5-1.4) mg/dL Estim Creat Clear Calc 162.4 Estimated GFR > 60 Random Glucose 92 (60-115) mg/dL Lactic Acid 0.6 (0.5-2.0) mmol/L Calcium 9.1 (8.4-10.2) mg/dL Total Bilirubin 0.3 (0.0-1.0) mg/dL AST 20 (5-37) U/L ALT 14 (0-40) U/L Alkaline Phosphatase 68 (39-117) U/L Total Protein 7.7 (6.5-8.0) g/dL Albumin 3.7 (3.5-5.0) g/dL Urine Color Yellow Urine Appearance Turbid Urine pH >= 9.0 (5.0-9.0) Ur Specific [place] 1.020 (1.005-1.025) Urine Protein 300 (3+) H (Neg-Trace) mg/dL Urine Glucose (UA) Negative (Negative) mg/dL Urine Ketones Negative (Negative) mg/dL Urine Blood Trace H (Negative) Urine Nitrite Positive H (Negative) Ur Leukocyte Esterase Large (3+) H (Negative) Urine RBC 3-5 H (0-2) /HPF Urine WBC >50 H (0-5) /HPF Ur Squamous Epith Cells 0-2 (0-2) /HPF Other Crystals Present Urine Bacteria 4+ (None Seen) Hyaline Casts 11-20 (0-2) /LPF External Record Review External record reviewed: Inpatient record Chronic Conditions History of having a suprapubic catheter chronic colonization Social Determinants Patient?s care significantly limited by Social Determinants of Health including: Problems related to primary support group Discharge Plan Discharge Clinical Impression: Acute urinary retention Patient Disposition: Home, Self-Care Instructions: Villatoro Catheter Placement and Care (ED) Prescriptions: No Action (DME) Urinary Leg Bag Misc See Rx Instructions .Route Qty: 4 5RF Rx Instructions: As directed, 4 per month (DME) Villatoro Catheter 20 Fr misc See Rx Instructions .Route Qty: 2 5RF Rx Instructions: As directed, 2 per month (DME) Villatoro Catheter Tray Tray See Rx Instructions .Route Qty: 2 5RF Rx Instructions: As directed 2 per month (DME) syringe disposable, irrigation 60 mL syringe See Rx Instructions .Route Qty: 2 5RF Rx Instructions: As directed 2 per month (DME) Bardia Urinary Drainage Bag Misc See Rx Instructions .Route Qty: 2 5RF Rx Instructions: As directed, 2 per month ascorbic acid (vitamin C) [Vitamin C] 500 mg tablet 500 mg PO BID 90 Days Qty: 180 1RF methenamine hippurate 1 gram tablet 1 g PO DAILY 90 Days Qty: 90 1RF cholecalciferol (vitamin D3) 50 mcg (2,000 unit) capsule 1 cap PO QAM multivitamin Tablet 1 tab PO DAILY omega 0-[id number]-fish oil 300 mg (120 mg- 180mg)-1,000 mg capsule 1 cap PO DAILY tizanidine 2 mg tablet 2 mg PO QAM prednisone 20 mg tablet 20 mg PO DAILY sertraline 50 mg tablet 50 mg PO QAM tizanidine 2 mg Tablet 2 mg PO BEDTIME PRN (Reason: Muscle Spasm) cefuroxime axetil 500 mg tablet 500 mg PO BID Qty: 19 0RF tramadol 50 mg tablet 50 mg PO Q8H PRN (Reason: severe pain (scale score 7-10)) Qty: 10 0RF levofloxacin 750 mg tablet 750 mg PO DAILY 5 Days Qty: 5 0RF cefuroxime axetil 250 mg tablet 250 mg PO BID 7 Days Qty: 14 0RF cefuroxime axetil 250 mg tablet 250 mg PO BID 7 Days Qty: 14 0RF nitrofurantoin monohyd/m-cryst [Macrobid] 100 mg capsule 100 mg PO BID 7 Days Qty: 14 0RF Rx Instructions: must administer with a meal/food levofloxacin 750 mg tablet 750 mg PO DAILY Qty: 9 0RF Referrals: Name,MD Ebenezer [Primary Care Provider] - 08/17/24 Print Language: Italian
[2024-08-12 07:04] LABS: Appearance Urine Turbid; Color Urine Yellow; Glucose Urine UA Negative (Negative); Leukocyte Esterase Urine Large (3+) (Negative); Nitrite Urine Positive (Negative); PH >= 9.0 (5.0-9.0); UMIC TRIGGER UACC YES; Urine Blood Trace (Negative); Urine Ketones Negative (Negative); Urine Protein 300 (3+) mg/dL (Neg-Trace)
[2024-08-12 07:10] LABS: Lactic Acid 0.6 mmol/L (0.5-2.0)
[2024-08-12 07:17] LABS: Alanine Aminotransferase 14 U/L (0-40); Albumin Level 3.7 g/dL (3.5-5.0); Alkaline Phosphatase 68 U/L (39-117); Anion Gap 15 (12-20); Aspartate Amino Transferase 20 U/L (5-37); Bilirubin Total 0.3 mg/dL (0.0-1.0); Blood Urea Nitrogen 13 mg/dL (9-16); Calcium 9.1 mg/dL (8.4-10.2); Carbon Dioxide 27 mmol/L (22-29); Chloride 105 mmol/L (96-108); Creatinine Clr Calc Pharmacy 162.4; Estimated Glomerular Filt Rate > 60; Glucose Random 92 mg/dL (60-115); Potassium 3.2 mmol/L (3.3-5.1); Sodium 144 mmol/L (135-145); Total Protein 7.7 g/dL (6.5-8.0)
[2024-08-12 07:21] LABS: Bacteria Urine 4+ (None Seen); Squamous Epithelial Cell Urine 0-2 /HPF (0-2); UACC Culture Trigger YES; WBC Urine >50 /HPF (0-5)
[2024-08-12 07:22] LABS: Other Crystals Urine Present
--- NOTE | 2024-08-12 07:49 | PC.NURSE ---
report recieved from previous RN, patient resting comfortably on stretcher, not offering any complaints, bladder scan completed and patient noted to have 36mL of urine in bladder, suprapubic draining at this time, breakfast tray ordered at this time, patient to be discharged home, ambulance booked. patient not offering any complaints at this time
== END 2024-08-12 11:58 | disposition home or self-care (01) ==
PROVIDERS: Emergency Provider Emergency Medicine Emergency Medical Services; PCP Internal Medicine Geriatric Medicine
DX: R33.9 Retention of urine, unspecified (principal); Z96.0 Presence of urogenital implants; N31.9 Neuromuscular dysfunction of bladder, unspecified; G35 Multiple sclerosis
CPT/HCPCS: 36415; 80053; 81001; 83605; 85025; 87040; 87086; 87088; 87147; 87186; 87205; 99283

== ENCOUNTER 2024-08-17 11:35 | Emergency (ER) | payer OTHER, SELFPAY ==
[2024-08-17 11:40] VITALS: BP 110/77; BP 115/80; PULSE 92; PULSE 96; RESP 18; TEMP 36.7; O2SAT 100; O2SAT 98; BMI 32.5
--- NOTE | 2024-08-17 11:53 | ED_ITS ---
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 Reports the rash is itchy and initially began on his chest, now moving to the left side of his face/ neck. Admits he was placed on Doxycycline by his PCP on 08/04/24. He cannot recall why he was placed on this or if he has ever taken doxycycline before. He also reports receiving his influenza vaccination 1 week ago, prior to onset of symptoms. He has received the flu vaccine yearly without every having a reaction to it. UTD on all other vaccinations. Denies new soaps/ lotions/ detergents. Besides the doxycycline, he denies any new medication changes or other antibiotics. Denies tick or insect bites. Denies fever, chills, sore throat, cough, difficulty breathing, tongue swelling. tension worker utilized throughout visit to communicate with patient. Related Data Home Medications ?Medication ?Instructions ?Recorded ?Confirmed cholecalciferol (vitamin D3) 50 1 cap PO QAM 09/18/21 02/22/24 mcg (2,000 unit) capsule multivitamin 1 tab PO DAILY 08/20/22 02/22/24 omega-3 300 mg-dha 120 mg-epa 180 1 cap PO DAILY 08/20/22 02/22/24 mg-fish oil 1,000 mg capsule prednisone 20 mg tablet 20 mg PO DAILY 02/22/24 02/22/24 sertraline 50 mg tablet 50 mg PO QAM 02/22/24 02/22/24 tizanidine 2 mg tablet 2 mg PO BEDTIME PRN Muscle Spasm 02/22/24 02/22/24 tizanidine 2 mg tablet 2 mg PO QAM 02/22/24 02/22/24 Previous Rx's ?Medication ?Instructions ?Recorded catheter 20 Fr (Villatoro Catheter) #2 ea 01/06/24 catheterization tray (Villatoro #2 ea 01/06/24 Catheter Tray) syringe disposable, irrigation 60 #2 ea 01/06/24 mL urinary bag (Bardia Urinary #2 ea 01/06/24 Drainage Bag) urinary bag (Urinary Leg Bag) #4 ea 01/06/24 cefuroxime axetil 250 mg tablet 250 mg PO BID 7 days #14 tabs 03/07/24 cefuroxime axetil 250 mg tablet 250 mg PO BID 7 days #14 tabs 03/07/24 cefuroxime axetil 500 mg tablet 500 mg PO BID #19 tabs 04/08/24 ascorbic acid (vitamin C) 500 mg 500 mg PO BID 90 days #180 tabs 05/12/24 tablet (Vitamin C) methenamine hippurate 1 gram tablet 1 g PO DAILY 90 days #90 tabs 05/12/24 tramadol 50 mg tablet 50 mg PO Q8H PRN severe pain 05/23/24 (scale score 7-10) #10 tabs levofloxacin 750 mg tablet 750 mg PO DAILY #9 tabs 06/01/24 nitrofurantoin 100 mg PO BID 7 days #14 caps 06/01/24 monohydrate/macrocrystals 100 mg capsule (Macrobid) levofloxacin 750 mg tablet 750 mg PO DAILY 5 days #5 tabs 07/09/24 cefuroxime axetil 250 mg tablet 250 mg PO BID 7 days #14 tabs 08/16/24 cetirizine 10 mg tablet (Zyrtec) 10 mg PO DAILY PRN itching #7 tabs 08/17/24 diphenhydramine HCl 50 mg tablet 50 mg PO Q8H PRN itching #20 tabs 08/17/24 (Benadryl Allergy) levofloxacin 750 mg tablet 750 mg PO DAILY 5 days #5 tabs 08/17/24 prednisone 20 mg tablet 40 mg (2 x 20 mg) PO DAILY 5 days 08/17/24 #10 tabs Allergies Allergy/AdvReac Type Severity Reaction Status Date / Time doxycycline Allergy Rash Verified 08/17/24 13:23 Review of Systems 2 Review of Systems: Constitutional: No fever, chills, fatigue, night sweats, weight changes ENT/Mouth: No ear pain, hearing loss, nasal congestion, sinus pain, rhinorrhea, sore throat Eyes: No eye pain, swelling, redness, vision changes, discharge Cardio: No chest pain, palpitations, BAZAN, orthopnea, peripheral edema Pulm: No SOB, cough, sputum, wheezing, dyspnea, hemoptysis GI: No nausea, vomiting, hematemesis, abdominal pain, diarrhea, constipation, hematochezia, melena : No irregular bleeding, dysuria, frequency, urgency, hesitancy, hematuria, flank pain, urinary flow changes, urinary incontinence or retention MSK: No back pain, neck pain, joint pain, myalgias Skin: No lesions, +rash to trunk/ face Neuro: No weakness, numbness, paresthesias, LOC, dizziness, headache Psych: No anxiety/panic, depression, SI/HI, AH/VH All other systems reviewed and are negative. [facility] Past Medical History Attestation statement: The following information was validated with the patient. 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 Microcytic anemia Multiple sclerosis Headache Surgical History H/O hernia repair Family History Family History Other No family history of coronary artery disease Social History Social History Household Members: Family Housing: Apartment 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 have visiting nurse or other home services: Yes Unable to assess alcohol history related to: Unknown Alcohol intake: never Patient Tobacco Use Status: Never used Tobacco Tobacco use type: Cigarette Cigarettes Per Day: 0.25 Substance Use Type: Marijuana Advance Directives: Yes Advance Directives on File: Yes Advance Directives Date on File: 08/21/22 service: No Current occupational status: disabled Physical Exam 2 Vital Signs: Vital Signs: Last Vital Signs Temp 98.2 F 08/17/24 16:18 Pulse 91 08/17/24 16:18 Resp 18 08/17/24 16:18 BP 117/76 08/17/24 16:18 Pulse Ox 96 08/17/24 16:18 O2 Del Method Room Air 08/17/24 16:18 BMI result Body Mass Index 32.5 vital signs stable, afebrile General: Well appearing, in no acute distress. Skin: +refer to photos below. erythematous rash to anterior chest/ left neck/ left face with noted excoriations to left cheek. no pustules. rash spares mucous membranes, palms, soles, web spaces. No sloughing. No target lesions. Non dermatomal pattern. no lesions in either EAC. Head: Normocephalic, atraumatic. EENT: Hearing is intact b/l. Conjunctiva clear. Sclera is anicteric. PERRLA. EOM intact. Moist mucous membranes.? Neck: Supple without LAD Cardiac: Chest wall symmetric. RRR Lungs: Normal respiratory effort without accessory muscle use. airway patent. CTA bilaterally. No rales, rhonchi, or wheezes.? Abdomen: Soft, non-tender, non-distended. No rebound tenderness or guarding Back: No midline spinous or paraspinal tenderness. No step off deformity. Ext: Upper and lower extremities atraumatic, without tenderness, deformity, swelling or erythema. Neuro: AOx3. Normal speech. Psych: Appropriate mood and affect. Responds appropriately to questions. Course Course Course Narrative: 1400 -- CBC without leukocytosis or left shift. There is chronic microcytic anemia, stable when compared to priors. H&H above transfusion threshold. Chemistry without acute electrolyte abnormality requiring intervention. No CAMRNY. Normal liver function. He tested negative for COVID, flu, RSV and strep throat. He has been treated with Pepcid, Solu-Medrol and Benadryl in the ED today. > given recent course of doxycycline, suspicion for drug reaction. I do not have suspicion for SJS or TEN. I did have my attending Dr. Bejarano evaluate patient at bedside who agrees with sending patient home with steroids. I advised patient to discontinue current course of doxycycline as he may be experiencing a reaction to this. On chart review, patient was seen in our ED on 08/12/24. His urine culture grew Proteus mirabilis sensitive to ampicillin, cefazolin, cefepime, ceftriaxone, ciprofloxacin, gentamicin and Bactrim. Resistant to nitrofurantoin. I have suspicion that patient was being treated for UTI with doxycycline. Will switch patient's antibiotic to levofloxacin for the time being as he has previously tolerated this medication. I advised him to follow up with his PCP this week as this was the provider who initially started him on the doxycycline. Doxycycline added to patient's allergy list. Patient has remained stable throughout ED visit today. Discussed worrisome signs and symptoms and when to return to the ED. All questions answered at this time. Patient is agreeable with disposition and stable for discharge. Medications Administered Discontinued Medications Generic Name Dose Route Start Last Admin Trade Name Elijah PRN Reason Stop Dose Admin Diphenhydramine HCl 50 mg 08/17/24 12:37 08/17/24 12:54 Diphenhydramine Hcl 25 Mg Capsule PO 08/17/24 12:38 50 mg ONCE ONE Administration Famotidine 20 mg 08/17/24 12:37 08/17/24 12:54 Famotidine 20 Mg Tablet PO 08/17/24 12:38 20 mg ONCE ONE Administration Methylprednisolone Sodium Succinate 60 mg 08/17/24 12:38 08/17/24 12:53 Methylprednisolone Sod Succ 125 Mg/2 Ml Vial IM 08/17/24 12:39 60 mg ONCE ONE Administration Medical Decision Making Medical Decision Making MDM Narrative: 38 year old male with pmhx significant for chronic suprapubic catheter prior CAUTI, 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 Vital signs stable. he is afebrile. nontoxic appearing and in NAD. lying comfortably on the exam bed. On skin exam,there is an erythematous rash to anterior chest/ left neck/ left face with noted excoriations to left cheek. no pustules. rash spares mucous membranes, palms, soles, web spaces. No sloughing. No target lesions. Non dermatomal pattern. no lesions in either EAC. Differential diagnosis includes drug/ vaccine reaction, contact/atopic/eczematous dermatitis, psoriasis. History and exam findings not consistent with lyme/tick bourne illness, herpes zoster/simplex, Frances Miles syndrome, scabies, HFM, dangerous etiologies of rash such as SJS/TEN, or secondary dangerous causes such as petechial rashes from thrombocytopenia or rickettsial infections.? Plan: labs, viral serology, medication management, disposition. Differential Diagnosis Differential Diagnoses: The differential diagnosis associated with the presentation includes as above Admission/Observation not indicated Lab Data MDM Lab Attestation statement: I reviewed the patient's lab results. as above. 08/17/24 12:22 08/17/24 12:22 Labs: Lab Results 08/17/24 Range/Units 12:22 WBC 6.8 (4.8-10.8) X10*3/uL RBC 4.93 (4.60-5.80) X10*6/uL Hgb 12.8 L (14.0-18.0) g/dl Hct 39.4 L (42.0-52.0) % MCV 79.9 L (80.0-98.0) fL MCH 26.0 L (27.0-33.0) pg MCHC 32.5 (31.0-36.0) g/dl RDW 14.8 (11.0-16.0) % Plt Count 176 (160-400) X10*3/uL MPV 12.5 H (9.4-12.4) fL Immature Gran % (Auto) 0.4 (0.0-0.4) % Neut % (Auto) 68.2 (45-73) % Lymph % (Auto) 17.2 L (20-40) % Vermilion % (Auto) 12.5 H (2-11) % Eos % (Auto) 1.3 (0-4) % Baso % (Auto) 0.4 (0-2) % Lymph # (Auto) 1.2 (1.2-4.9) X10*3/uL Vermilion # (Auto) 0.9 (0.1-1.2) X10*3/uL Eos # (Auto) 0.1 (0.0-0.4) X10*3/uL Baso # (Auto) 0.0 (0.0-0.2) X10*3/uL Abs Immat Gran (auto) 0.03 (0.00-0.03) X10*3/uL Absolute Neuts (auto) 4.6 (2.0-8.3) x10*3/uL Absolute Nucleated RBC 0.000 (0.0-0.012) X10*3/uL Nucleated RBC % (auto) 0.0 (0.0-0.2) /100WBC Smear Tech's Comments VERIFIED Sodium 141 (135-145) mmol/L Potassium 3.7 (3.3-5.1) mmol/L Chloride 103 (96-108) mmol/L Carbon Dioxide 26 (22-29) mmol/L Anion Gap 16 (12-20) BUN 6 L (9-16) mg/dL Creatinine 0.67 (0.5-1.4) mg/dL Estim Creat Clear Calc 172.3 Estimated GFR > 60 Random Glucose 85 (60-115) mg/dL Calcium 9.7 D (8.4-10.2) mg/dL Magnesium 2.0 (1.6-2.6) mg/dL Total Bilirubin 0.3 (0.0-1.0) mg/dL AST 23 (5-37) U/L ALT 14 (0-40) U/L Alkaline Phosphatase 63 (39-117) U/L Total Protein 8.0 (6.5-8.0) g/dL Albumin 3.9 (3.5-5.0) g/dL Influenza Type A (PCR) NEGATIVE (Negative) Influenza Type B (PCR) NEGATIVE (Negative) RSV RNA Qual (PCR) NEGATIVE (Negative) SARS-CoV-2 RNA (RT-PCR) NEGATIVE (Negative) S. pyogenes GrpA SCOUT Negative (Negative) Independent Historian Clinical information obtained from an independent historian. History obtained from or confirmed by: EMS External Record Review External record reviewed: Inpatient record, Office record, Outpatient record, Prior outpatient labs, Prior outpatient radiology, Primary care record and Outside ED record Prescription Management I considered prescription management with: Other (prednisone, zyrtec, benadryl) Social Determinants Patient?s care significantly limited by Social Determinants of Health including: Other Social Determinant of Health Critical Care Time Critical Care Time Critical Care Time: No Discharge Plan Discharge Clinical Impression: Rash Patient Disposition: Home, Self-Care Instructions: Acute Rash (ED), Cold Compress or Soak (ED) Additional Instructions: You were evaluated in the ED today for rash. Your blood work is reassuring. You tested negative for covid/ flu/ rsv. It is possible that you are having a reaction to doxycycline. Please discontinue your current antibiotic, doxycycline. Levofloxacin is a new antibiotic that has been sent to your pharmacy to treat your urinary tract infection. Take this as prescribed and to completion. Prednisone as a steroid that has been sent to your pharmacy. Take this as prescribed over the next 5 days, starting tomorrow. Both Benadryl and Zyrtec have also been sent to your pharmacy. Take these as prescribed for rash/itching. Follow up with your primary care provider this week. Return with new or worsening symptoms. In the case of an emergency call 911. Prescriptions: New levofloxacin 750 mg tablet 750 mg PO DAILY 5 Days Qty: 5 0RF prednisone 20 mg tablet 40 mg PO DAILY 5 Days Qty: 10 0RF cetirizine [Zyrtec] 10 mg tablet 10 mg PO DAILY PRN (Reason: itching) Qty: 7 0RF Benadryl Allergy 50 mg tablet 50 mg PO Q8H PRN (Reason: itching) Qty: 20 0RF No Action (DME) Urinary Leg Bag Misc See Rx Instructions .Route Qty: 4 5RF Rx Instructions: As directed, 4 per month (DME) Villatoro Catheter 20 Fr misc See Rx Instructions .Route Qty: 2 5RF Rx Instructions: As directed, 2 per month (DME) Villatoro Catheter Tray Tray See Rx Instructions .Route Qty: 2 5RF Rx Instructions: As directed 2 per month (DME) syringe disposable, irrigation 60 mL syringe See Rx Instructions .Route Qty: 2 5RF Rx Instructions: As directed 2 per month (DME) Bardia Urinary Drainage Bag Misc See Rx Instructions .Route Qty: 2 5RF Rx Instructions: As directed, 2 per month ascorbic acid (vitamin C) [Vitamin C] 500 mg tablet 500 mg PO BID 90 Days Qty: 180 1RF methenamine hippurate 1 gram tablet 1 g PO DAILY 90 Days Qty: 90 1RF cholecalciferol (vitamin D3) 50 mcg (2,000 unit) capsule 1 cap PO QAM multivitamin Tablet 1 tab PO DAILY omega 2-eit-ecf-fish oil 300 mg (120 mg- 180mg)-1,000 mg capsule 1 cap PO DAILY tizanidine 2 mg tablet 2 mg PO QAM prednisone 20 mg tablet 20 mg PO DAILY sertraline 50 mg tablet 50 mg PO QAM tizanidine 2 mg Tablet 2 mg PO BEDTIME PRN (Reason: Muscle Spasm) cefuroxime axetil 500 mg tablet 500 mg PO BID Qty: 19 0RF tramadol 50 mg tablet 50 mg PO Q8H PRN (Reason: severe pain (scale score 7-10)) Qty: 10 0RF levofloxacin 750 mg tablet 750 mg PO DAILY 5 Days Qty: 5 0RF cefuroxime axetil 250 mg tablet 250 mg PO BID 7 Days Qty: 14 0RF cefuroxime axetil 250 mg tablet 250 mg PO BID 7 Days Qty: 14 0RF nitrofurantoin monohyd/m-cryst [Macrobid] 100 mg capsule 100 mg PO BID 7 Days Qty: 14 0RF Rx Instructions: must administer with a meal/food levofloxacin 750 mg tablet 750 mg PO DAILY Qty: 9 0RF cefuroxime axetil 250 mg tablet 250 mg PO BID 7 Days Qty: 14 0RF Referrals: Name,MD Ebenezer [Primary Care Provider] - Print Language: Korean
[2024-08-17 12:34] LABS: Basophils Percent Auto 0.4 % (0-2); Eosinophils Absolute Auto 0.1 X10*3/uL (0.0-0.4); Eosinophils Percent Auto 1.3 % (0-4); Hematocrit 39.4 % (42.0-52.0); Hemoglobin 12.8 g/dl (14.0-18.0); Imm Gran Abs Auto 0.03 X10*3/uL (0.00-0.03); Imm Gran Pct Auto 0.4 % (0.0-0.4); Lymphocytes Absolute Auto 1.2 X10*3/uL (1.2-4.9); Lymphocytes Percent Auto 17.2 % (20-40); MANUAL DIFF FLAG SCAN; Mean Corpuscular HGB Conc 32.5 g/dl (31.0-36.0); Mean Corpuscular Volume 79.9 fL (80.0-98.0); Mean Platelet Volume 12.5 fL (9.4-12.4); Monocytes Absolute Auto 0.9 X10*3/uL (0.1-1.2); Monocytes Percent Auto 12.5 % (2-11); Neutrophils Absolute Auto 4.6 x10*3/uL (2.0-8.3); Neutrophils Percent Auto 68.2 % (45-73); PLT CLUMP 1; Red Blood Count 4.93 X10*6/uL (4.60-5.80); Red Cell Distribution Width 14.8 % (11.0-16.0); SCAN SMEAR FLAG 1
[2024-08-17 12:40] LABS: White Blood Count 6.8 X10*3/uL (4.8-10.8)
[2024-08-17 12:41] LABS: IDNOW Serial# 08D9AD1C; Strep A Nucleic Acid Negative (Negative)
[2024-08-17] MEDS: methylPREDNISolone Sod Succ 125 MG/2 ML VIAL 60 MG IM (12:53)
[2024-08-17 12:54] LABS: Alanine Aminotransferase 14 U/L (0-40); Albumin Level 3.9 g/dL (3.5-5.0); Alkaline Phosphatase 63 U/L (39-117); Anion Gap 16 (12-20); Aspartate Amino Transferase 23 U/L (5-37); Bilirubin Total 0.3 mg/dL (0.0-1.0); Blood Urea Nitrogen 6 mg/dL (9-16); Calcium 9.7 mg/dL (8.4-10.2); Carbon Dioxide 26 mmol/L (22-29); Chloride 103 mmol/L (96-108); Creatinine Clr Calc Pharmacy 172.3; Estimated Glomerular Filt Rate > 60; Glucose Random 85 mg/dL (60-115); Potassium 3.7 mmol/L (3.3-5.1); Sodium 141 mmol/L (135-145)
[2024-08-17] MEDS: diphenhydrAMINE HCL 25 MG CAPSULE 50 MG PO (12:54)
[2024-08-17] MEDS: Famotidine 20 MG TABLET PO (12:54)
[2024-08-17 13:03] LABS: Platelet Count 176 X10*3/uL (160-400)
[2024-08-17 13:04] LABS: SLIDE REVIEW VERIFIED
[2024-08-17 13:28] LABS: Influenza A PCR NEGATIVE (Negative); Influenza B PCR NEGATIVE (Negative); Resp Syncy Virus RNA Qual PCR NEGATIVE (Negative); SARS COV2 PCR INHOUSE NEGATIVE (Negative)
[2024-08-17 13:37] VITALS: BP 105/78; PULSE 91; RESP 16; TEMP 36.7; O2SAT 98
[2024-08-17 16:18] VITALS: BP 117/76; PULSE 91; RESP 18; TEMP 36.8; O2SAT 96
== END 2024-08-17 21:00 | disposition home or self-care (01) ==
PROVIDERS: Physician Assistant Medical; Emergency Provider Emergency Medicine; PCP Internal Medicine Geriatric Medicine
DX: L50.0 Allergic urticaria (principal); R51.9 Headache, unspecified; M54.2 Cervicalgia; Z79.899 Other long term (current) drug therapy; Z03.818 Encounter for observation for suspected exposure to other biological agents ruled out
CPT/HCPCS: 0241U; 80053; 83735; 85025; 87651; 96372; 99283; 99284; J2919

== ENCOUNTER 2024-08-18 07:51 | Emergency (ER) | payer OTHER, SELFPAY ==
[2024-08-18 08:03] VITALS: BP 162/104; PULSE 88; O2SAT 99
[2024-08-18 08:05] VITALS: BP 129/86; PULSE 94; RESP 18; TEMP 36.5; O2SAT 96; BMI 27.3
--- NOTE | 2024-08-18 08:28 | PC.NURSE ---
called central supply for 20f 5cc burciaga- patient bladder scanned for 415mls
--- NOTE | 2024-08-18 09:32 | ED_ITS ---
HPI - Male Genitourinary General Chief complaint: Urogenital-Male Stated complaint: LOWER ABD PAIN,SUPRAPUBIC CATH PROBLEM PER EMS Time Seen by Provider: 08/18/24 09:23 Source: patient and EMS Mode of arrival: EMS Limitations: no limitations History of Present Illness ED Provider: Dr. Pan HPI Narrative: Suprapubic catheter not working. Patient is 38yo, bed bound, with MS. His suprapubic catheter is blocked. He is colonized with Proteus Mirablis. Related Data Home Medications ?Medication ?Instructions ?Recorded ?Confirmed cholecalciferol (vitamin D3) 50 1 cap PO QAM 09/18/21 02/22/24 mcg (2,000 unit) capsule multivitamin 1 tab PO DAILY 08/20/22 02/22/24 omega-3 300 mg-dha 120 mg-epa 180 1 cap PO DAILY 08/20/22 02/22/24 mg-fish oil 1,000 mg capsule prednisone 20 mg tablet 20 mg PO DAILY 02/22/24 02/22/24 sertraline 50 mg tablet 50 mg PO QAM 02/22/24 02/22/24 tizanidine 2 mg tablet 2 mg PO BEDTIME PRN Muscle Spasm 02/22/24 02/22/24 tizanidine 2 mg tablet 2 mg PO QAM 02/22/24 02/22/24 Previous Rx's ?Medication ?Instructions ?Recorded catheter 20 Fr (Villatoro Catheter) #2 ea 01/06/24 catheterization tray (Villatoro #2 ea 01/06/24 Catheter Tray) syringe disposable, irrigation 60 #2 ea 01/06/24 mL urinary bag (Bardia Urinary #2 ea 01/06/24 Drainage Bag) urinary bag (Urinary Leg Bag) #4 ea 01/06/24 cefuroxime axetil 250 mg tablet 250 mg PO BID 7 days #14 tabs 03/07/24 cefuroxime axetil 250 mg tablet 250 mg PO BID 7 days #14 tabs 03/07/24 cefuroxime axetil 500 mg tablet 500 mg PO BID #19 tabs 04/08/24 ascorbic acid (vitamin C) 500 mg 500 mg PO BID 90 days #180 tabs 05/12/24 tablet (Vitamin C) methenamine hippurate 1 gram tablet 1 g PO DAILY 90 days #90 tabs 05/12/24 tramadol 50 mg tablet 50 mg PO Q8H PRN severe pain 05/23/24 (scale score 7-10) #10 tabs levofloxacin 750 mg tablet 750 mg PO DAILY #9 tabs 06/01/24 nitrofurantoin 100 mg PO BID 7 days #14 caps 06/01/24 monohydrate/macrocrystals 100 mg capsule (Macrobid) levofloxacin 750 mg tablet 750 mg PO DAILY 5 days #5 tabs 07/09/24 cefuroxime axetil 250 mg tablet 250 mg PO BID 7 days #14 tabs 08/16/24 cetirizine 10 mg tablet (Zyrtec) 10 mg PO DAILY PRN itching #7 tabs 08/17/24 diphenhydramine HCl 50 mg tablet 50 mg PO Q8H PRN itching #20 tabs 08/17/24 (Benadryl Allergy) levofloxacin 750 mg tablet 750 mg PO DAILY 5 days #5 tabs 08/17/24 prednisone 20 mg tablet 40 mg (2 x 20 mg) PO DAILY 5 days 08/17/24 #10 tabs Allergies Allergy/AdvReac Type Severity Reaction Status Date / Time doxycycline Allergy Rash Verified 08/18/24 08:06 Review of Systems Review of Systems: Yes all other systems are reviewed and are negative Neurologic: Denies Sensory deficit (Neuro) PMFSH Past Medical History Medical History 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 Microcytic anemia Multiple sclerosis Headache Surgical History H/O hernia repair Family History Family History Other No family history of coronary artery disease Social History Social History Household Members: Family Housing: Apartment 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 have visiting nurse or other home services: Yes Unable to assess alcohol history related to: Unknown Alcohol intake: never Patient Tobacco Use Status: Never used Tobacco Tobacco use type: Cigarette Cigarettes Per Day: 0.25 Smoked in Last 30 Days: No Use of substances other than those prescribed or required for medical reasons: Yes Substance Use Type: Marijuana Substance Use Frequency: Chronic Longstanding Advance Directives: No Advance Directives Information Provided: Yes Advance Directives Date on File: 08/21/22 service: No Current occupational status: disabled Physical Exam Vital Signs: Vital Signs: Last Vital Signs Temp 97.7 F 08/18/24 08:05 Pulse 95 08/18/24 10:32 Resp 18 08/18/24 10:32 BP 109/73 08/18/24 10:32 Pulse Ox 99 08/18/24 10:32 O2 Del Method Room Air 08/18/24 10:32 BMI result Body Mass Index 27.3 Const: Other: thin male chronically ill Nutritional Appearance: average body habitus Orientation/consciousness: oriented to person and patient oriented x3 Limitations: no limitations HEENT: Other: disconjugate gaze Ears: external ears normal General nose exam: Normal external nose present Mouth: Normal oral and palatal mucosa present and oropharynx normal Throat: Yes posterior oropharynx normal Neck: Other: supple Neck: Yes normal visual inspection Chest: Chest palpation & inspection: normal inspection of the chest Resp: Auscultation: clear to auscultation bilaterally Cardio: Jugular venous distension: no JVD Rate: regular rate Rhythm: regular rhythm Heart sounds: S1 normal heart sound present and S2 normal heart sound present GI: Other: suprapubic catheter blocked Inspection: Yes normal to inspection Palpation (GI): Soft to palpation, nontender and No hepatosplenomegaly present Auscultation: normal bowel sounds : General: Yes no CVA tenderness Back/Spine/Pelvis: Back: no CVA tenderness Skin: General skin exam: no rashes or lesions noted Neuro: General: oriented to person and patient oriented x3 Cranial nerves: Yes CN's II-XII intact bilaterally Motor exam (neuro): 5/5 motor strength present throughout Sensory Exam: No Sensory deficit (Neuro) Extrem: General: Yes normal to inspection Psych: Appearance: grossly normal Course Reevaluation(s) Reevaluation #1: Suprapubic catheter changed, discussed with Dr. Yohannes rios dc home Time: 10:52 Medical Decision Making Differential Diagnosis Differential Diagnoses: The differential diagnosis associated with the presentation includes (suprapubic catheter blockage, UtI) Consult Healthcare Provider Management of the patient was discussed with: Electrical Instrumentation Technician (Discussed proteus Mirabilis with Dr. Fountain. Kip oh on no abx, now indication for systemic illness, likely colonization) Prescription Management I considered prescription management with: Antibiotic (will not start on abx for colonization) Chronic Conditions Patient?s care impacted by: Other (MS) Discharge Plan Discharge Clinical Impression: Blocked suprapubic catheter Patient Disposition: Home, Self-Care Prescriptions: No Action (DME) Urinary Leg Bag Misc See Rx Instructions .Route Qty: 4 5RF Rx Instructions: As directed, 4 per month (DME) Villatoro Catheter 20 Fr misc See Rx Instructions .Route Qty: 2 5RF Rx Instructions: As directed, 2 per month (DME) Villatoro Catheter Tray Tray See Rx Instructions .Route Qty: 2 5RF Rx Instructions: As directed 2 per month (DME) syringe disposable, irrigation 60 mL syringe See Rx Instructions .Route Qty: 2 5RF Rx Instructions: As directed 2 per month (DME) Bardia Urinary Drainage Bag Misc See Rx Instructions .Route Qty: 2 5RF Rx Instructions: As directed, 2 per month ascorbic acid (vitamin C) [Vitamin C] 500 mg tablet 500 mg PO BID 90 Days Qty: 180 1RF methenamine hippurate 1 gram tablet 1 g PO DAILY 90 Days Qty: 90 1RF cholecalciferol (vitamin D3) 50 mcg (2,000 unit) capsule 1 cap PO QAM multivitamin Tablet 1 tab PO DAILY omega 1-kub-fij-fish oil 300 mg (120 mg- 180mg)-1,000 mg capsule 1 cap PO DAILY tizanidine 2 mg tablet 2 mg PO QAM prednisone 20 mg tablet 20 mg PO DAILY sertraline 50 mg tablet 50 mg PO QAM tizanidine 2 mg Tablet 2 mg PO BEDTIME PRN (Reason: Muscle Spasm) cefuroxime axetil 500 mg tablet 500 mg PO BID Qty: 19 0RF tramadol 50 mg tablet 50 mg PO Q8H PRN (Reason: severe pain (scale score 7-10)) Qty: 10 0RF levofloxacin 750 mg tablet 750 mg PO DAILY 5 Days Qty: 5 0RF levofloxacin 750 mg tablet 750 mg PO DAILY 5 Days Qty: 5 0RF prednisone 20 mg tablet 40 mg PO DAILY 5 Days Qty: 10 0RF cetirizine [Zyrtec] 10 mg tablet 10 mg PO DAILY PRN (Reason: itching) Qty: 7 0RF Benadryl Allergy 50 mg tablet 50 mg PO Q8H PRN (Reason: itching) Qty: 20 0RF cefuroxime axetil 250 mg tablet 250 mg PO BID 7 Days Qty: 14 0RF cefuroxime axetil 250 mg tablet 250 mg PO BID 7 Days Qty: 14 0RF nitrofurantoin monohyd/m-cryst [Macrobid] 100 mg capsule 100 mg PO BID 7 Days Qty: 14 0RF Rx Instructions: must administer with a meal/food levofloxacin 750 mg tablet 750 mg PO DAILY Qty: 9 0RF cefuroxime axetil 250 mg tablet 250 mg PO BID 7 Days Qty: 14 0RF Referrals: Name,MD Ebenezer [Primary Care Provider] - 3 days Print Language: Wolof
[2024-08-18 10:32] VITALS: BP 109/73; PULSE 95; RESP 18; O2SAT 99
[2024-08-18 12:26] VITALS: BP 109/78; PULSE 95; RESP 18; TEMP 37.1; O2SAT 99
== END 2024-08-18 13:04 | disposition home or self-care (01) ==
PROVIDERS: Emergency Provider Emergency Medicine; PCP Internal Medicine Geriatric Medicine
DX: T83.098A Other mechanical complication of other urinary catheter, initial encounter (principal); Y73.8 Miscellaneous gastroenterology and urology devices associated with adverse incidents, not elsewhere classified; Y92.9 Unspecified place or not applicable; G35 Multiple sclerosis
CPT/HCPCS: 51702; 99283; 99284

== ENCOUNTER 2024-08-23 17:04 | Emergency (ER) | payer OTHER, SELFPAY ==
[2024-08-23 17:25] VITALS: BP 114/76; PULSE 90; O2SAT 99
[2024-08-23 17:34] VITALS: BP 115/66; PULSE 87; RESP 16; TEMP 37; O2SAT 99; BMI 27.3
--- NOTE | 2024-08-23 17:40 | ED_ITS ---
HPI - General Adult General Chief complaint: Skin/Abscess/Foreign Body Stated complaint: RASH NECK AND CHEST Time Seen by Provider: 08/23/24 17:40 History of Present Illness ED Provider: Iman VILLELA narrative: The patient is a 39-year-old male with a history of neuromyelitis optica spectrum disorder. He has a neurogenic bladder and a chronic suprapubic catheter. He is essentially bed-bound. The patient has had an itchy rash on his chest as well as his neck and face for about 11 days. Apparently he has been placed on course of doxycycline about 10 days before the outbreak of the rash. The reason for the doxycycline was possibly for urinary tract infection. The patient came to the emergency room 6 days ago on August 17 because of the rash. At that time he was prescribed levofloxacin for a possible UTI, prednisone 40 mg daily for his rash and also cetirizine and Benadryl. The patient feels the rash has gotten somewhat worse on his chest and comes to the emergency room for further evaluation. He has not had any fevers, sweats, chills. He has not really been sick otherwise.. Related Data Home Medications ?Medication ?Instructions ?Recorded ?Confirmed cholecalciferol (vitamin D3) 50 1 cap PO QAM 09/18/21 02/22/24 mcg (2,000 unit) capsule multivitamin 1 tab PO DAILY 08/20/22 02/22/24 omega-3 300 mg-dha 120 mg-epa 180 1 cap PO DAILY 08/20/22 02/22/24 mg-fish oil 1,000 mg capsule prednisone 20 mg tablet 20 mg PO DAILY 02/22/24 02/22/24 sertraline 50 mg tablet 50 mg PO QAM 02/22/24 02/22/24 tizanidine 2 mg tablet 2 mg PO BEDTIME PRN Muscle Spasm 02/22/24 02/22/24 tizanidine 2 mg tablet 2 mg PO QAM 02/22/24 02/22/24 Previous Rx's ?Medication ?Instructions ?Recorded syringe disposable, irrigation 60 #2 ea 01/06/24 mL cefuroxime axetil 250 mg tablet 250 mg PO BID 7 days #14 tabs 03/07/24 cefuroxime axetil 250 mg tablet 250 mg PO BID 7 days #14 tabs 03/07/24 cefuroxime axetil 500 mg tablet 500 mg PO BID #19 tabs 04/08/24 ascorbic acid (vitamin C) 500 mg 500 mg PO BID 90 days #180 tabs 05/12/24 tablet (Vitamin C) methenamine hippurate 1 gram tablet 1 g PO DAILY 90 days #90 tabs 05/12/24 tramadol 50 mg tablet 50 mg PO Q8H PRN severe pain 05/23/24 (scale score 7-10) #10 tabs levofloxacin 750 mg tablet 750 mg PO DAILY #9 tabs 06/01/24 nitrofurantoin 100 mg PO BID 7 days #14 caps 06/01/24 monohydrate/macrocrystals 100 mg capsule (Macrobid) levofloxacin 750 mg tablet 750 mg PO DAILY 5 days #5 tabs 07/09/24 cefuroxime axetil 250 mg tablet 250 mg PO BID 7 days #14 tabs 08/16/24 cetirizine 10 mg tablet (Zyrtec) 10 mg PO DAILY PRN itching #7 tabs 08/17/24 diphenhydramine HCl 50 mg tablet 50 mg PO Q8H PRN itching #20 tabs 08/17/24 (Benadryl Allergy) levofloxacin 750 mg tablet 750 mg PO DAILY 5 days #5 tabs 08/17/24 prednisone 20 mg tablet 40 mg (2 x 20 mg) PO DAILY 5 days 08/17/24 #10 tabs catheter 20 Fr (Villaotro Catheter) #2 ea 08/19/24 catheterization tray (Villatoro #2 ea 08/19/24 Catheter Tray) urinary bag (Bardia Urinary #2 ea 08/19/24 Drainage Bag) urinary bag (Urinary Leg Bag) #4 ea 08/19/24 water for irrigation, sterile 1 irrig irrigation DAILY #9,000 mL 08/19/24 (Curity Sterile Water irrigation solution) prednisone 5 mg tablet 5 mg PO DIRECTED #66 tabs 08/23/24 Allergies Allergy/AdvReac Type Severity Reaction Status Date / Time doxycycline Allergy Rash Verified 08/23/24 17:34 Review of Systems 2 Review of Systems: Yes all other systems are reviewed and are negative PMFSH Past Medical History Medical History 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 Microcytic anemia Multiple sclerosis Headache Surgical History H/O hernia repair Family History Family History Other No family history of coronary artery disease Social History Social History Household Members: Family Housing: Apartment 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 have visiting nurse or other home services: Yes Unable to assess alcohol history related to: Unknown Alcohol intake: never Patient Tobacco Use Status: Never used Tobacco Tobacco use type: Cigarette Cigarettes Per Day: 0.25 Smoked in Last 30 Days: No Use of substances other than those prescribed or required for medical reasons: No Substance Use Type: Marijuana Advance Directives: No Advance Directives Information Provided: No Advance Directives Date on File: 08/21/22 service: No Current occupational status: disabled Physical Exam ED Vital Signs: Vital Signs - 24 hr 08/23/24 17:34 08/23/24 19:41 08/23/24 21:56 Temperature 98.6 F 98.1 F 97.9 F Pulse Rate 87 68 76 Respiratory Rate 16 16 16 Blood Pressure 115/66 121/75 110/81 Pulse Oximetry 99 97 97 Oxygen Delivery Method Room Air Room Air Room Air 08/24/24 05:25 Temperature 97.9 F Pulse Rate 76 Respiratory Rate 16 Blood Pressure 110/81 Pulse Oximetry 97 Oxygen Delivery Method Room Air BMI result Body Mass Index 27.3 Const Other: the patient is a chronically ill-appearing 39-year-old who was awake and alert with normal mental status. He looks quite chronically ill and weak but does not seem obviously acutely ill. HENMT Other: Face is symmetrical. Mucous membranes are moist. No intraoral lesions. I had some impression that there might be a rash quite diffusely across the patient's face but the patient tells me this is not the case. Eyes Other: Pupils are round equal, conjunctivae are clear, no eyelid swelling. Neck Other: There is a rash on the anterior neck that is confluent with a rash of the upper chest. This is a dermatitis like rash that I felt resembled the rest of poison jian with innumerable small vesicles in clumps. Chest Other: There is a rash on the anterior chest characterized by dully erythematous innumerable small vesicles in clumps. Resp Effort & Inspection: normal respiratory effort Auscultation: clear to auscultation bilaterally Cardio Rate: regular rate Rhythm: regular rhythm Heart sounds: S1 normal heart sound present and S2 normal heart sound present GI Other: Abdomen is soft nontender Back/Spine/Pelvis Other: the back was spared of any rash lesions. Skin Other: The patient has a rash on his anterior chest that extends into his neck. The rash is characterized by innumerable small vesicle like lesions which are clustered together in clumps and which are a dull erythema. Neuro Other: The patient is awake and alert. He seems to have normal mental status. Speech seems to be clear. He has significant truncal and extremity weakness which I think represents his neurological baseline. Extrem Other: No lesions on the extremities. Medications Administered Discontinued Medications Generic Name Dose Route Start Last Admin Trade Name Freq PRN Reason Stop Dose Admin Prednisone 60 mg 08/23/24 20:55 08/23/24 21:25 Prednisone 20 Mg Tablet PO 08/23/24 20:56 60 mg ONCE ONE Administration Medical Decision Making Medical Decision Making [facility] Narrative: The patient is a 39-year-old male with severe chronic generalized weakness and disability secondary to a condition I suspect is similar to multiple sclerosis. He presents to the emergency room for the 2nd time in 2 weeks with a complaint of rash which is primarily on his chest and neck. The rash has the appearance of an allergic dermatitis in my opinion. The patient does not have any history of exposures so I would am not certain why the rash is occurring or why it is occurring in the fairly localized distribution in the upper chest and neck. The patient is currently on 20 mg of prednisone daily prescribed by his neurologist. The patient is afebrile does not seem infected. CBC CRP, and metabolic labs are unremarkable. I think the patient may be treated with a 2nd burst of prednisone. He will be placed on taper of prednisone starting at 60 mg today, 55 mg tomorrow, tapering down 5 mg per day until he gets back to his baseline prednisone. In the meantime he should follow up with his regular doctor and neurologist. Lab Data 08/23/24 20:04 08/23/24 20:04 Labs: Lab Results 08/23/24 Range/Units 20:04 WBC 7.8 (4.8-10.8) X10*3/uL RBC 4.99 (4.60-5.80) X10*6/uL Hgb 12.6 L (14.0-18.0) g/dl Hct 39.5 L (42.0-52.0) % MCV 79.2 L (80.0-98.0) fL MCH 25.3 L (27.0-33.0) pg MCHC 31.9 (31.0-36.0) g/dl RDW 14.8 (11.0-16.0) % Plt Count 298 D (160-400) X10*3/uL MPV 12.3 (9.4-12.4) fL Immature Gran % (Auto) 0.3 (0.0-0.4) % Neut % (Auto) 66.8 (45-73) % Lymph % (Auto) 16.5 L (20-40) % Sunflower % (Auto) 13.2 H (2-11) % Eos % (Auto) 2.9 (0-4) % Baso % (Auto) 0.3 (0-2) % Lymph # (Auto) 1.3 (1.2-4.9) X10*3/uL Sunflower # (Auto) 1.0 (0.1-1.2) X10*3/uL Eos # (Auto) 0.2 (0.0-0.4) X10*3/uL Baso # (Auto) 0.0 (0.0-0.2) X10*3/uL Abs Immat Gran (auto) 0.02 (0.00-0.03) X10*3/uL Absolute Neuts (auto) 5.2 (2.0-8.3) x10*3/uL Absolute Nucleated RBC 0.000 (0.0-0.012) X10*3/uL Nucleated RBC % (auto) 0.0 (0.0-0.2) /100WBC Sodium 141 (135-145) mmol/L Potassium 3.2 L (3.3-5.1) mmol/L Chloride 104 (96-108) mmol/L Carbon Dioxide 26 (22-29) mmol/L Anion Gap 14 (12-20) BUN 7 L (9-16) mg/dL Creatinine 0.62 (0.5-1.4) mg/dL Estim Creat Clear Calc 158.3 Estimated GFR > 60 Random Glucose 83 (60-115) mg/dL Calcium 9.2 (8.4-10.2) mg/dL Total Bilirubin 0.2 (0.0-1.0) mg/dL Direct Bilirubin < 0.2 (0.0-0.5) mg/dL AST 22 (5-37) U/L ALT 14 (0-40) U/L Alkaline Phosphatase 54 (39-117) U/L C-Reactive Protein 1.07 H (< or = 0.50) mg/dL Total Protein 7.4 (6.5-8.0) g/dL Albumin 3.8 (3.5-5.0) g/dL Discharge Plan Discharge Clinical Impression: Dermatitis Patient Disposition: Home, Self-Care Additional Instructions: I think that your rash is some kind of a smoldering allergic reaction. Your blood testing today is reassuring from the point of view of any acutely dangerous process. I think the taking some additional prednisone for the next several days is reasonable. You received 60 mg of prednisone here today. I have sent a prescription to your pharmacy. This is a tapering prescription. Prescription is for 5 mg tablets. Tomorrow you will take 11 tablets for a total of 55 mg. Friday you will take 10 tablets for a total of 50 mg. You will then take 1 tablet less each day. Please keep track of the this. In the meantime also contact your neurologist. I suspect that they will want you to continue your usual dosing of prednisone once you get to the dose that you has been taking recently. Please stay in touch with your neurologist and your regular doctor to make sure you were taking the correct dose of prednisone and to keep an eye on your rash. Return to the emergency room if significantly worse. Prescriptions: New prednisone 5 mg tablet 5 mg PO DIRECTED Qty: 66 0RF Rx Instructions: see taper instructions: By mouth take 11 tablets daily for 1 day, then take 10 tablets daily for 1 day, then take 9 tablets daily for 1 day, continue to reduce this by 1 tablet per day until done. No Action (DME) syringe disposable, irrigation 60 mL syringe See Rx Instructions .Route Qty: 2 5RF Rx Instructions: As directed 2 per month ascorbic acid (vitamin C) [Vitamin C] 500 mg tablet 500 mg PO BID 90 Days Qty: 180 1RF methenamine hippurate 1 gram tablet 1 g PO DAILY 90 Days Qty: 90 1RF (DME) Villatoro Catheter Tray Tray See Rx Instructions .Route Qty: 2 5RF Rx Instructions: As directed 2 per month (DME) Bardia Urinary Drainage Bag Misc See Rx Instructions .Route Qty: 2 5RF Rx Instructions: As directed, 2 per month (DME) Urinary Leg Bag Misc See Rx Instructions .Route Qty: 4 5RF Rx Instructions: As directed, 4 per month. (DME) Villatoro Catheter 20 Fr misc See Rx Instructions .Route Qty: 2 5RF Rx Instructions: As directed, 2 per month. water for irrigation, sterile [[employer] Sterile Water] Solution 1 irrig irrigation DAILY Qty: 9000 12RF cholecalciferol (vitamin D3) 50 mcg (2,000 unit) capsule 1 cap PO QAM multivitamin Tablet 1 tab PO DAILY omega 4-khi-xnx-fish oil 300 mg (120 mg- 180mg)-1,000 mg capsule 1 cap PO DAILY tizanidine 2 mg tablet 2 mg PO QAM prednisone 20 mg tablet 20 mg PO DAILY sertraline 50 mg tablet 50 mg PO QAM tizanidine 2 mg Tablet 2 mg PO BEDTIME PRN (Reason: Muscle Spasm) cefuroxime axetil 500 mg tablet 500 mg PO BID Qty: 19 0RF tramadol 50 mg tablet 50 mg PO Q8H PRN (Reason: severe pain (scale score 7-10)) Qty: 10 0RF levofloxacin 750 mg tablet 750 mg PO DAILY 5 Days Qty: 5 0RF levofloxacin 750 mg tablet 750 mg PO DAILY 5 Days Qty: 5 0RF prednisone 20 mg tablet 40 mg PO DAILY 5 Days Qty: 10 0RF cetirizine [Zyrtec] 10 mg tablet 10 mg PO DAILY PRN (Reason: itching) Qty: 7 0RF Benadryl Allergy 50 mg tablet 50 mg PO Q8H PRN (Reason: itching) Qty: 20 0RF cefuroxime axetil 250 mg tablet 250 mg PO BID 7 Days Qty: 14 0RF cefuroxime axetil 250 mg tablet 250 mg PO BID 7 Days Qty: 14 0RF nitrofurantoin monohyd/m-cryst [Macrobid] 100 mg capsule 100 mg PO BID 7 Days Qty: 14 0RF Rx Instructions: must administer with a meal/food levofloxacin 750 mg tablet 750 mg PO DAILY Qty: 9 0RF cefuroxime axetil 250 mg tablet 250 mg PO BID 7 Days Qty: 14 0RF Referrals: Ebenezer Leslie MD [Physician] - (rash) Interventions: ED Discharge Assessment Last Done: 08/24/24 05:25 Discharge Date/Time: 08/24/24 01:00 Print Language: Greek
--- NOTE | 2024-08-23 19:38 | PC.NURSE ---
Took over care from MAUREEN Wooten, pt resting in bed, pt had rash upper part of his chest and neck, no respiratory distress.
[2024-08-23 19:41] VITALS: BP 121/75; PULSE 68; RESP 16; TEMP 36.7; O2SAT 97
[2024-08-23 20:09] LABS: MANUAL DIFF FLAG NO
[2024-08-23 20:26] LABS: Basophils Percent Auto 0.3 % (0-2); Eosinophils Absolute Auto 0.2 X10*3/uL (0.0-0.4); Eosinophils Percent Auto 2.9 % (0-4); Hematocrit 39.5 % (42.0-52.0); Hemoglobin 12.6 g/dl (14.0-18.0); Imm Gran Abs Auto 0.02 X10*3/uL (0.00-0.03); Imm Gran Pct Auto 0.3 % (0.0-0.4); Lymphocytes Absolute Auto 1.3 X10*3/uL (1.2-4.9); Lymphocytes Percent Auto 16.5 % (20-40); Mean Corpuscular HGB Conc 31.9 g/dl (31.0-36.0); Mean Corpuscular Hemoglobin 25.3 pg (27.0-33.0); Mean Corpuscular Volume 79.2 fL (80.0-98.0); Mean Platelet Volume 12.3 fL (9.4-12.4); Monocytes Percent Auto 13.2 % (2-11); Neutrophils Absolute Auto 5.2 x10*3/uL (2.0-8.3); Neutrophils Percent Auto 66.8 % (45-73); Platelet Count 298 X10*3/uL (160-400); Red Blood Count 4.99 X10*6/uL (4.60-5.80); Red Cell Distribution Width 14.8 % (11.0-16.0); White Blood Count 7.8 X10*3/uL (4.8-10.8)
[2024-08-23 20:28] LABS: Alanine Aminotransferase 14 U/L (0-40); Albumin Level 3.8 g/dL (3.5-5.0); Alkaline Phosphatase 54 U/L (39-117); Anion Gap 14 (12-20); Aspartate Amino Transferase 22 U/L (5-37); Bilirubin Direct < 0.2 mg/dL (0.0-0.5); Bilirubin Total 0.2 mg/dL (0.0-1.0); Blood Urea Nitrogen 7 mg/dL (9-16); C Reactive Protein 1.07 mg/dL (< or = 0.50); Calcium 9.2 mg/dL (8.4-10.2); Carbon Dioxide 26 mmol/L (22-29); Chloride 104 mmol/L (96-108); Creatinine Clr Calc Pharmacy 158.3; Estimated Glomerular Filt Rate > 60; Glucose Random 83 mg/dL (60-115); Potassium 3.2 mmol/L (3.3-5.1); Sodium 141 mmol/L (135-145); Total Protein 7.4 g/dL (6.5-8.0)
[2024-08-23] MEDS: predniSONE 20 MG TABLET 60 MG PO (21:25)
[2024-08-23 21:56] VITALS: BP 110/81; PULSE 76; RESP 16; TEMP 36.6; O2SAT 97
[2024-08-24 05:25] VITALS: BP 110/81; PULSE 76; RESP 16; TEMP 36.6; O2SAT 97
== END 2024-08-24 01:00 | disposition home or self-care (01) ==
PROVIDERS: Emergency Provider Emergency Medicine
DX: L30.9 Dermatitis, unspecified (principal); Z79.899 Other long term (current) drug therapy
CPT/HCPCS: 36415; 80048; 80076; 85025; 86140; 99283; 99284

== ENCOUNTER 2024-09-01 10:08 | Outpatient (REF) | payer OTHER, SELFPAY ==
--- NOTE | ~2024-09-01 | MM_ITS ---
EXAMINATION: BONE DENSITOMETRY CLINICAL INDICATION: Chronic prednisone use. COMPARISON: This is the patient's baseline examination. TECHNIQUE: Using a [employer] DXA System (software version: 13.1) manufactured by [employer], dual-energy x-ray absorptiometry was performed of the lumbar spine and left hip. The images are of good technical quality. Based on ISCD (International Society for Clinical Densitometry) standards of reporting, Z-scores instead of T-scores are reported in this premenopausal woman. Summary results are attached. FINDINGS: AP SPINE L1-L4: BMD 0.877 g/cm2, T-score -2.9, Z-score -3.4, Z-score below expected range for age. LEFT FEMUR, NECK: BMD 0.686 g/cm2, T-score -3.0, Z-score -3.0, Z-score below expected range for age. LEFT FEMUR, TOTAL: BMD 0.692 g/cm2, T-score -2.8, Z-score -3.0, Z-score below expected range for age. IDENTIFIED RISK FACTORS: Chronic glucocorticoids. HISTORY OF FRACTURE: None listed. MEDICATIONS: Calcium supplement and/or multivitamin. Vitamin D. MM/XR DEXA axial skeleton IMPRESSION: 1. DIAGNOSIS: Based on the lowest Z-score value of -3.4 in the lumbar spine, the patient's bone density is below the expected range for age. 2. 10-YEAR FRACTURE RISK PREDICTION, FRAX: Not performed in this perimenopausal patient. 3. Treatment Recommendations: NOF guidelines recommend consideration for treatment in postmenopausal women and men age 50 and older presenting with the following: -A hip or vertebral (clinical or morphometric) fracture. -T-score less than or equal to -2.5 at the femoral neck or spine after appropriate evaluation to exclude secondary causes. -Low bone mass at the hip or spine and a 10-year fracture probability by FRAX of greater than or equal to 3% for hip fracture or greater than or equal to 20% for major osteoporotic fracture based on the [place] adapted WHO algorithm. 4. Other Recommendations: All treatment decisions require clinical judgment and consideration of individual patient factors, including patient preferences, comorbidities, previous drug use, risk factors not captured in the FRAX model (e.g. frailty, falls, vitamin D deficiency, increased bone turnover, interval significant decline in bone density) and possible under or overestimation of fracture risk by FRAX. Additional medical evaluation for secondary cause of low bone mineral density may be appropriate. FUTURE SCAN RECOMMENDATION: People with diagnosed cases of osteoporosis or at high risk for fracture should have regular bone mineral density tests. For patients eligible for Medicare, routine testing is allowed once every 2 years. The testing frequency can be increased to one year for patients who have rapidly progressing disease, those who are receiving or discontinuing medical therapy to restore bone mass, or have additional risk factors. Electronically signed by: Kirby Duran MD 09/01/2024 03:09 PM JUANITO DUVALL
== END 2024-09-01 10:09 | disposition home or self-care (01) ==
LOC: HO.MAMMO 10:08
PROVIDERS: PCP Internal Medicine Geriatric Medicine; Visit Provider Internal Medicine Geriatric Medicine
DX: Z13.820 Encounter for screening for osteoporosis (principal); Z79.52 Long term (current) use of systemic steroids
CPT/HCPCS: 77080

== ENCOUNTER 2024-09-07 06:51 | Emergency (ER) | payer OTHER, SELFPAY ==
--- NOTE | ~2024-09-07 | CT_ITS ---
EXAMINATION: CT ABDOMEN AND PELVIS WITH CONTRAST CLINICAL INFORMATION: Abdominal pain. COMPARISON: None available. TECHNIQUE: Multidetector volumetric images were obtained from the superior aspect of the liver through the pubic symphysis following administration 85 mL of Omnipaque 350 intravenous contrast. Sagittal and coronal reformatted images were obtained on the technologist's workstation. Oral contrast: No This CT examination was performed using dose optimization techniques as appropriate, variously including the following: *Automated exposure control *Adjustment of mA and/or kV according to patient size (this includes techniques or standardized protocols for targeted exams where dose is matched to indication/reason for exam; i.e. extremities or head) *Use of iterative reconstruction technique DLP: Final 98 mGy-cm FINDINGS: LUNG BASES: The lung bases appear clear, with no evidence of inflammation or nodules. LIVER, GALLBLADDER, AND BILIARY TREE: The liver appears unremarkable in size, shape, and attenuation. No focal hepatic lesion or biliary ductal dilatation is appreciated. Unremarkable appearance of the gallbladder. PANCREAS: Unremarkable SPLEEN: Unremarkable ADRENAL GLANDS: Unremarkable KIDNEYS AND URETERS: The kidneys appear unremarkable in size, shape, and attenuation. No hydronephrosis, hydroureter, or calculi seen. BLADDER: Tip and balloon of suprapubic Villatoro catheter lie within the urinary bladder lumen. Decompressed urinary bladder, therefore suboptimally evaluated. Suspect diffuse thickening of the wall the urinary bladder with induration of surrounding fat, grossly similar compared with most recent prior study from February 21, 2024. GASTROINTESTINAL TRACT: The small and large bowel appear unremarkable. No diverticulosis. Normal-appearing distal ileum and vermiform appendix. ABDOMINAL WALL: No significant hernia is appreciated. LYMPH NODES: No evidence of adenopathy by size criteria. VASCULAR: Unremarkable PELVIC VISCERA: Unremarkable. OSSEOUS STRUCTURES: Subchondral cystic and sclerotic changes involving the femoral heads, worsening over the prior [address]/CT abdomen pelvis w IV con IMPRESSION: Tip and balloon of suprapubic Villatoro catheter lie within the urinary bladder lumen. Decompressed urinary bladder, therefore suboptimally evaluated. Suspect diffuse thickening of the wall the urinary bladder with induration of surrounding fat, grossly similar compared with most recent prior study from February 21, 2024. Difference diagnosis includes, but is not limited to, cystitis. 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 Electronically signed by: Kody Devries MD 09/07/2024 02:13 PM EST RP
[2024-09-07 07:10] VITALS: BP 140/87; BP 152/90; PULSE 85; PULSE 87; RESP 18; TEMP 36.8; O2SAT 96; O2SAT 97; BMI 27.8
--- NOTE | 2024-09-07 07:17 | ED_ITS ---
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 Patient states that he noticed this last night, and reports that he developed worsening abdominal pain this morning. He denies any fevers, chills, chest pain, shortness of breath, nausea, vomiting or diarrhea. He is having no change in his bowel habits. NO other complaints or concerns at this time. Duration: constant Location: abdomen Quality: aching Relieving factors: none Exacerbating factors: palpation Context: indwelling catheter Related Data Home Medications ?Medication ?Instructions ?Recorded ?Confirmed cholecalciferol (vitamin D3) 50 1 cap PO DAILY 09/18/21 09/10/24 mcg (2,000 unit) capsule multivitamin 1 tab PO DAILY 08/20/22 09/10/24 sertraline 50 mg tablet 50 mg PO DAILY 02/22/24 09/10/24 tizanidine 2 mg tablet 2 mg PO Q8H PRN Muscle Spasm 02/22/24 09/10/24 acetaminophen 500 mg tablet 500 mg PO Q6H PRN Pain 09/10/24 09/10/24 clindamycin phosphate 1 % lotion 1 appl topical BID 09/10/24 09/10/24 clotrimazole-betamethasone 1 1 appl topical BID 09/10/24 09/10/24 %-0.05 % topical cream cyclobenzaprine 10 mg tablet 10 mg PO TID 09/10/24 09/10/24 methenamine hippurate 1 gram tablet 1 g PO BID 09/10/24 09/10/24 Previous Rx's ?Medication ?Instructions ?Recorded syringe disposable, irrigation 60 #2 ea 01/06/24 mL ascorbic acid (vitamin C) 500 mg 500 mg PO BID 90 days #180 tabs 05/12/24 tablet (Vitamin C) cetirizine 10 mg tablet (Zyrtec) 10 mg PO DAILY PRN itching #7 tabs 08/17/24 diphenhydramine HCl 50 mg tablet 50 mg PO Q8H PRN itching #20 tabs 08/17/24 (Benadryl Allergy) catheter 20 Fr (Burciaga Catheter) #2 ea 08/19/24 catheterization tray (Burciaga #2 ea 08/19/24 Catheter Tray) urinary bag (Bardia Urinary #2 ea 08/19/24 Drainage Bag) urinary bag (Urinary Leg Bag) #4 ea 08/19/24 water for irrigation, sterile 1 irrig irrigation DAILY #9,000 mL 08/19/24 (Curity Sterile Water irrigation solution) cefpodoxime 100 mg tablet 100 mg PO BID #10 tabs 09/12/24 Allergies Allergy/AdvReac Type Severity Reaction Status Date / Time doxycycline Allergy Rash Verified 09/09/24 18:25 Review of Systems 2 Review of Systems: Yes all other systems are reviewed and are negative Constitutional: Constitutional: Reports as per [facility] Past Medical History Medical History 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 Microcytic anemia Multiple sclerosis Headache Surgical History H/O hernia repair Family History Family History Other No family history of coronary artery disease Social History Social History Household Members: Other Household Members Other:: parents Housing: Apartment 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 have visiting nurse or other home services: Yes (yarn cleaner and vna) Unable to assess alcohol history related to: Unknown Alcohol intake: never Patient Tobacco Use Status: Former Tobacco user Tobacco use type: Cigarette Cigarettes Per Day: 0.25 Substance Use Type: Marijuana Advance Directives Date on File: 08/21/22 service: No Current occupational status: disabled Physical Exam 2 Vital Signs: Vital Signs: Last Vital Signs Temp 98.0 F 09/07/24 17:06 Pulse 100 09/07/24 17:06 Resp 19 11/26/24 17:06 BP 128/80 09/07/24 17:06 Pulse Ox 93 09/07/24 17:06 O2 Del Method Room Air 09/07/24 17:06 BMI result Body Mass Index 27.8 Const: General: cooperative, comfortable and no acute distress O rientation/consciousness: patient oriented x3 Limitations: no limitations HEENT: Head: Yes normal to inspection, Yes normocephalic and Yes atraumatic Ears: hearing grossly normal bilaterally General nose exam: Normal external nose present Face and sinus: Yes normal facial exam Mouth: Normal oral and palatal mucosa present, oropharynx normal and moist mucous membranes Throat: Yes posterior oropharynx normal Eyes: General: appearance normal, both eyes and all related structures E yelids: Yes eyelids normal Conjunctivae: conjunctivae normal Sclerae: s clerae normal Pupils: Equal, round and reactive pupils present EOM: EOMs intact bilaterally Neck: Neck: Yes normal visual inspection, Yes full ROM and Yes no lymphadenopathy Lymphatic: no lymphadenopathy noted Chest: Chest palpation & inspection: normal inspection of the chest Resp: Effort & Inspection: normal respiratory effort and able to speak in complete sentences Auscultation: clear to auscultation bilaterally, no crackles, no rales, no rhonchi and no wheezes Cardio: Rate: regular rate Rhythm: regular rhythm Heart sounds: S1 normal heart sound present and S2 normal heart sound present GI: Other: suprapubic catheter in place with no surrounding erythema or warmth. there is some urine in the burciaga cath, however upon changing, straw colored urine excreted. Inspection: Yes normal to inspection Skin: General skin exam: no rashes or lesions noted Trauma: no lacerations or abrasions Wounds: no wounds Neuro: General: patient oriented x3 and moves all extremities Cranial nerves: Yes Equal, round and reactive pupils present Extrem: General: Yes normal to inspection Right upper extremity: normal to inspection Left upper extremity: normal to inspection Right lower extremity: normal to inspection Left lower extremity: normal to inspection Course Reevaluation(s) Reevaluation #1: Bladder scan was performed, patient has greater than 500 cc of urine within the bladder. Given patient has a suprapubic catheter, this is likely blocked. Patient likely requiring change of suprapubic catheter. Given diffuse abdominal pain, CT abdomen and pelvis with IV contrast also ordered. Labs returned, he has no leukocytosis, microcytic anemia noted with an H&H of 12.3/37.1, chemistry revealing slight hypokalemia at 3.2, BUN 8. Time: 08:39 Reevaluation #2: Suprapubic catheter was replaced to a 18 Burciaga belarusian, 600cc of urine output. Urine is foul-smelling, cloudy, consistent with likely urinary tract infection. Patient is still having abdominal pain, will obtain CT to rule out any other abnormalities. Abdominal pain likely secondary to urinary obstruction Time: 09:55 Reevaluation #3: Still awaiting CT scan, patient is resting comfortably. We will continue to closely monitor. Time: 13:41 Additional Reevaluation(s): 1425 - CT scan returns, revealing decompressed urinary bladder, suspect diffuse thickening of the wall of the urinary bladder with induration surrounding fat similar to previous CT scan performed on February 21, 2024. There is also sclerotic changes in the femoral heads which patient has a history of. Will treat with antibiotics. Given he has normal vitals, he is comfortable, feeling much better with no leukocytosis, and otherwise reassuring exam, pt stable for d/c. Stressed the importance of following up with urologist as patient has not been seen since February. He understands and agrees with plan. 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 On arrival, blood pressure slightly elevated at 1 40/87, all other vital signs within normal limits. He is a febrile and appears to be under no acute distress. He feels as though his abdominal pain is secondary to his Burciaga bag not draining appropriately. There is some urine in his bag however he reports suprapubic pain which is consistent with blockage in his urinary catheter. Catheter was changed 2 weeks ago in the emergency room. He has not seen a urologist in several months. He denies any other symptoms. Plan: Bladder scan, CT abdomen and pelvis, blood work Differential Diagnosis Differential Diagnoses: The differential diagnosis associated with the presentation includes Fall to catheter, UTI, acute cystitis, obstructive uropathy Admission/Observation Consideration of admission/observation: Escalation of care including admission/observation considered Lab Data MDM Lab Attestation statement: I reviewed the patient's lab results. Patient has no leukocytosis, see course comment for further details. 09/07/24 08:15 09/07/24 08:15 Labs: Lab Results 09/07/24 09/07/24 Range/Units 08:15 09:58 WBC 10.5 (4.8-10.8) X10*3/uL RBC 4.74 (4.60-5.80) X10*6/uL Hgb 12.3 L (14.0-18.0) g/dl Hct 37.1 L (42.0-52.0) % MCV 78.3 L (80.0-98.0) fL MCH 25.9 L (27.0-33.0) pg MCHC 33.2 (31.0-36.0) g/dl RDW 15.0 (11.0-16.0) % Plt Count 202 D (160-400) X10*3/uL MPV 11.6 (9.4-12.4) fL Immature Gran % (Auto) 0.4 (0.0-0.4) % Neut % (Auto) 72.5 (45-73) % Lymph % (Auto) 11.6 L (20-40) % [place] % (Auto) 13.1 H (2-11) % Eos % (Auto) 2.2 (0-4) % Baso % (Auto) 0.2 (0-2) % Lymph # (Auto) 1.2 (1.2-4.9) X10*3/uL [place] # (Auto) 1.4 H (0.1-1.2) X10*3/uL Eos # (Auto) 0.2 (0.0-0.4) X10*3/uL Baso # (Auto) 0.0 (0.0-0.2) X10*3/uL Abs Immat Gran (auto) 0.04 H (0.00-0.03) X10*3/uL Absolute Neuts (auto) 7.6 (2.0-8.3) x10*3/uL Absolute Nucleated RBC 0.000 (0.0-0.012) X10*3/uL Nucleated RBC % (auto) 0.0 (0.0-0.2) /100WBC Sodium 139 (135-145) mmol/L Potassium 3.2 L (3.3-5.1) mmol/L Chloride 104 (96-108) mmol/L Carbon Dioxide 26 (22-29) mmol/L Anion Gap 12 (12-20) BUN 8 L (9-16) mg/dL Creatinine 0.69 (0.5-1.4) mg/dL Estim Creat Clear Calc 149.4 Estimated GFR > 60 Random Glucose 101 (60-115) mg/dL Calcium 9.0 (8.4-10.2) mg/dL Total Bilirubin 0.4 (0.0-1.0) mg/dL Direct Bilirubin 0.2 (0.0-0.5) mg/dL AST 19 (5-37) U/L ALT 18 (0-40) U/L Alkaline Phosphatase 54 (39-117) U/L Total Protein 7.8 (6.5-8.0) g/dL Albumin 3.7 (3.5-5.0) g/dL Urine Color Yellow Urine Appearance Turbid Urine pH 8.0 (5.0-9.0) Ur Specific [place] 1.015 (1.005-1.025) Urine Protein 300 (3+) H (Neg-Trace) mg/dL Urine Glucose (UA) Negative (Negative) mg/dL Urine Ketones Negative (Negative) mg/dL Urine Blood Trace (Negative) Urine Nitrite Positive H (Negative) Ur Leukocyte Esterase Large (3+) H (Negative) Urine RBC 3-5 H (0-2) /HPF Urine WBC >50 (0-5) /HPF Ur Squamous Epith Cells 0-2 (0-2) /HPF Other Crystals Present Urine Bacteria 4+ (None Seen) Hyaline Casts 0-2 (0-2) /LPF Radiology Impression Discussion of test interpretation with radiology: I have reviewed the radiologist's reading. External Record Review External record reviewed: Inpatient record, Office record, Outpatient record, Prior outpatient labs, Prior outpatient radiology, Primary care record and Outside ED record Procedures Catheter Insertion (Urinary) Date of insertion: 09/07/24 Discharge Plan Discharge Clinical Impression: Catheter-associated urinary tract infection Patient Disposition: Home, Self-Care Instructions: Catheter-associated Urinary Tract Infection (ED) Additional Instructions: You were seen in the emergency department due to catheter not draining appropriately. We change your suprapubic catheter in the department. Your urine appears to be an infected. We also obtain a CT scan of your abdomen, your bladder shows evidence of a urinary tract infection. We gave you a dose of antibiotics through the IV in the department today. Please take full course of antibiotics, you can start this tomorrow. Drink plenty of fluids get plenty of rest. You need to follow-up with the urologist as you have not seen them since February. Please call tomorrow to make an appointment. If any new or worsening symptoms occur including but not limited to high fevers, chills, body aches, severe abdominal pain, catheter not draining appropriately, changes in your urination, please seek emergent care. Prescriptions: No Action (DME) syringe disposable, irrigation 60 mL syringe See Rx Instructions .Route Qty: 2 5RF Rx Instructions: As directed 2 per month ascorbic acid (vitamin C) [Vitamin C] 500 mg tablet 500 mg PO BID 90 Days Qty: 180 1RF (DME) Burciaga Catheter Tray Tray See Rx Instructions .Route Qty: 2 5RF Rx Instructions: As directed 2 per month (DME) Bardia Urinary Drainage Bag Misc See Rx Instructions .Route Qty: 2 5RF Rx Instructions: As directed, 2 per month (DME) Urinary Leg Bag Misc See Rx Instructions .Route Qty: 4 5RF Rx Instructions: As directed, 4 per month. (DME) Burciaga Catheter 20 Fr misc See Rx Instructions .Route Qty: 2 5RF Rx Instructions: As directed, 2 per month. water for irrigation, sterile [Curity Sterile Water] Solution 1 irrig irrigation DAILY Qty: 9000 12RF cholecalciferol (vitamin D3) 50 mcg (2,000 unit) capsule 1 cap PO DAILY multivitamin Tablet 1 tab PO DAILY sertraline 50 mg tablet 50 mg PO DAILY tizanidine 2 mg Tablet 2 mg PO Q8H PRN (Reason: Muscle Spasm) cetirizine [Zyrtec] 10 mg tablet 10 mg PO DAILY PRN (Reason: itching) Qty: 7 0RF Benadryl Allergy 50 mg tablet 50 mg PO Q8H PRN (Reason: itching) Qty: 20 0RF cyclobenzaprine 10 mg tablet 10 mg PO TID acetaminophen 500 mg tablet 500 mg PO Q6H PRN (Reason: Pain) clindamycin phosphate 1 % lotion 1 appl topical BID clotrimazole-betamethasone 1-0.05 % cream 1 appl topical BID methenamine hippurate 1 gram tablet 1 g PO BID cefpodoxime 100 mg tablet 100 mg PO BID Qty: 10 0RF Rx Instructions: must administer with a meal/food Referrals: [facility] [Provider Group] Interventions: ED Discharge Assessment Last Done: 09/07/24 17:06 Discharge Date/Time: 09/07/24 17:07 Print Language: Egyptian
[2024-09-07 08:18] LABS: MANUAL DIFF FLAG NO
[2024-09-07 08:20] LABS: Basophils Percent Auto 0.2 % (0-2); Eosinophils Absolute Auto 0.2 X10*3/uL (0.0-0.4); Eosinophils Percent Auto 2.2 % (0-4); Hematocrit 37.1 % (42.0-52.0); Hemoglobin 12.3 g/dl (14.0-18.0); Imm Gran Abs Auto 0.04 X10*3/uL (0.00-0.03); Imm Gran Pct Auto 0.4 % (0.0-0.4); Lymphocytes Absolute Auto 1.2 X10*3/uL (1.2-4.9); Lymphocytes Percent Auto 11.6 % (20-40); Mean Corpuscular HGB Conc 33.2 g/dl (31.0-36.0); Mean Corpuscular Hemoglobin 25.9 pg (27.0-33.0); Mean Corpuscular Volume 78.3 fL (80.0-98.0); Mean Platelet Volume 11.6 fL (9.4-12.4); Monocytes Absolute Auto 1.4 X10*3/uL (0.1-1.2); Monocytes Percent Auto 13.1 % (2-11); Neutrophils Absolute Auto 7.6 x10*3/uL (2.0-8.3); Neutrophils Percent Auto 72.5 % (45-73); Platelet Count 202 X10*3/uL (160-400); Red Blood Count 4.74 X10*6/uL (4.60-5.80); White Blood Count 10.5 X10*3/uL (4.8-10.8)
[2024-09-07 08:35] LABS: Alanine Aminotransferase 18 U/L (0-40); Albumin Level 3.7 g/dL (3.5-5.0); Alkaline Phosphatase 54 U/L (39-117); Anion Gap 12 (12-20); Aspartate Amino Transferase 19 U/L (5-37); Bilirubin Direct 0.2 mg/dL (0.0-0.5); Bilirubin Total 0.4 mg/dL (0.0-1.0); Blood Urea Nitrogen 8 mg/dL (9-16); Carbon Dioxide 26 mmol/L (22-29); Chloride 104 mmol/L (96-108); Creatinine Clr Calc Pharmacy 149.4; Estimated Glomerular Filt Rate > 60; Glucose Random 101 mg/dL (60-115); Potassium 3.2 mmol/L (3.3-5.1); Sodium 139 mmol/L (135-145); Total Protein 7.8 g/dL (6.5-8.0)
[2024-09-07 10:20] LABS: Appearance Urine Turbid; Color Urine Yellow; Glucose Urine UA Negative (Negative); Nitrite Urine Positive (Negative); Specific Gravity - Urine 1.015 (1.005-1.025); UMIC TRIGGER UACC YES; Urine Blood Trace (Negative); Urine Ketones Negative (Negative); Urine Protein 300 (3+) mg/dL (Neg-Trace)
[2024-09-07 10:22] LABS: Leukocyte Esterase Urine Large (3+) (Negative)
[2024-09-07] MEDS: iohexoL 350 MG/ML 100 ML INFUS..BTL 85 ML IV (10:22)
[2024-09-07 10:25] LABS: Bacteria Urine 4+ (None Seen); Hyaline Casts Urine 0-2 /LPF (0-2); Other Crystals Urine Present; Squamous Epithelial Cell Urine 0-2 /HPF (0-2); UACC Culture Trigger YES; WBC Urine >50 /HPF (0-5)
[2024-09-07] MEDS: cefTRIAXone sodium 1 GM VIAL IVPUSH (10:58)
[2024-09-07 11:00] VITALS: BP 130/86; PULSE 92; RESP 18; TEMP 37.1; O2SAT 94
--- NOTE | 2024-09-07 11:01 | PC.NURSE ---
Assumed care of this patient at 1100, VS updated, abx given per mar, patient resting quietly on stretcher at this time.
[2024-09-07 14:00] VITALS: BP 143/85; PULSE 106; RESP 18; TEMP 36.7; O2SAT 96
[2024-09-07 16:55] VITALS: BP 128/80; PULSE 100; RESP 19; TEMP 36.7; O2SAT 93
[2024-09-07 17:06] VITALS: BP 128/80; PULSE 100; RESP 19; TEMP 36.7; O2SAT 93
== END 2024-09-07 17:07 | disposition home or self-care (01) ==
PROVIDERS: Physician Assistant Medical; Emergency Provider Emergency Medicine; PCP Internal Medicine Geriatric Medicine
DX: R33.9 Retention of urine, unspecified (principal); R10.2 Pelvic and perineal pain; T83.518A Infection and inflammatory reaction due to other urinary catheter, initial encounter; Y73.8 Miscellaneous gastroenterology and urology devices associated with adverse incidents, not elsewhere classified; Y92.89 Other specified places as the place of occurrence of the external cause; Z79.899 Other long term (current) drug therapy; Z87.440 Personal history of urinary (tract) infections
CPT/HCPCS: 36415; 51798; 74177; 80048; 80076; 81001; 85025; 87040; 87086; 87088; 87186; 96374; 99284; 99285; J0696; Q9967

== ENCOUNTER 2024-09-09 18:07 | Inpatient (IN) | payer OTHER, SELFPAY ==
[2024-09-09] VITALS (10 sets, daily range): BP systolic 108–148; BP diastolic 71–95; PULSE 92–152; RESP 16–29; TEMP 37.2–39.9; O2SAT 95–98; BMI 31.5
--- NOTE | ~2024-09-09 | XR_ITS ---
EXAMINATION: XR CHEST CLINICAL INFORMATION: SOB COMPARISON: 04/05/2023 TECHNIQUE: Frontal view of the chest was obtained. FINDINGS: Normal cardiomediastinal silhouette. Mild bronchial wall thickening with some streaky opacities in both lungs, no consolidation. There is no pleural effusion or pneumothorax. XR/XR chest 1V IMPRESSION: Mild bronchial wall thickening with streaky opacities suggesting small airways disease. No consolidation. Electronically signed by: Kingsley Omer MD 09/09/2024 07:50 PM EST
--- NOTE | 2024-09-09 18:24 | ECG_ITS ---
Test Reason : TACHY/SOB Blood Pressure : / mmHG Vent. Rate : 152 BPM Atrial Rate : 152 BPM P-R Int : 146 ms QRS Dur : 070 ms QT Int : 246 ms P-R-T Axes : 067 -50 083 degrees QTc Int : 391 ms Sinus tachycardia Left anterior fascicular block Anterior infarct , age undetermined Abnormal ECG When compared with ECG of 07-MAR-2024 19:13, Vent. rate has increased BY 58 BPM Left anterior fascicular block is now Present Anterior infarct is now Present Inverted T waves have replaced nonspecific T wave abnormality in Lateral leads Referred By: Marie Jordan Electronically Signed By:TOAN FAM
--- NOTE | 2024-09-09 18:39 | ED.GENADULT ---
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 His suprapubic catheter was changed yesterday. He has this changed monthly. Denies hematuria or abdominal pain. He also reports a sensation that he is unable to get liquids down when he drinks. He does not have this sensation with eating solids. Denies choking. Denies nausea or vomiting. Related Data Home Medications ?Medication ?Instructions ?Recorded ?Confirmed cholecalciferol (vitamin D3) 50 1 cap PO QAM 09/18/21 02/22/24 mcg (2,000 unit) capsule multivitamin 1 tab PO DAILY 08/20/22 02/22/24 omega-3 300 mg-dha 120 mg-epa 180 1 cap PO DAILY 08/20/22 02/22/24 mg-fish oil 1,000 mg capsule prednisone 20 mg tablet 20 mg PO DAILY 02/22/24 02/22/24 sertraline 50 mg tablet 50 mg PO QAM 02/22/24 02/22/24 tizanidine 2 mg tablet 2 mg PO BEDTIME PRN Muscle Spasm 02/22/24 02/22/24 tizanidine 2 mg tablet 2 mg PO QAM 02/22/24 02/22/24 Previous Rx's ?Medication ?Instructions ?Recorded syringe disposable, irrigation 60 #2 ea 01/06/24 mL cefuroxime axetil 250 mg tablet 250 mg PO BID 7 days #14 tabs 03/07/24 cefuroxime axetil 250 mg tablet 250 mg PO BID 7 days #14 tabs 03/07/24 cefuroxime axetil 500 mg tablet 500 mg PO BID #19 tabs 04/08/24 ascorbic acid (vitamin C) 500 mg 500 mg PO BID 90 days #180 tabs 07/31/24 tablet (Vitamin C) methenamine hippurate 1 gram tablet 1 g PO DAILY 90 days #90 tabs 05/12/24 tramadol 50 mg tablet 50 mg PO Q8H PRN severe pain 05/23/24 (scale score 7-10) #10 tabs levofloxacin 750 mg tablet 750 mg PO DAILY #9 tabs 06/01/24 nitrofurantoin 100 mg PO BID 7 days #14 caps 06/01/24 monohydrate/macrocrystals 100 mg capsule (Macrobid) levofloxacin 750 mg tablet 750 mg PO DAILY 5 days #5 tabs 07/09/24 cefuroxime axetil 250 mg tablet 250 mg PO BID 7 days #14 tabs 08/16/24 cetirizine 10 mg tablet (Zyrtec) 10 mg PO DAILY PRN itching #7 tabs 08/17/24 diphenhydramine HCl 50 mg tablet 50 mg PO Q8H PRN itching #20 tabs 08/17/24 (Benadryl Allergy) levofloxacin 750 mg tablet 750 mg PO DAILY 5 days #5 tabs 08/17/24 prednisone 20 mg tablet 40 mg (2 x 20 mg) PO DAILY 5 days 08/17/24 #10 tabs catheter 20 Fr (Villatoro Catheter) #2 ea 08/19/24 catheterization tray (Villatoro #2 ea 08/19/24 Catheter Tray) urinary bag (Bardia Urinary #2 ea 08/19/24 Drainage Bag) urinary bag (Urinary Leg Bag) #4 ea 08/19/24 water for irrigation, sterile 1 irrig irrigation DAILY #9,000 mL 08/19/24 (Curity Sterile Water irrigation solution) prednisone 5 mg tablet 5 mg PO DIRECTED #66 tabs 08/23/24 cefuroxime axetil 500 mg tablet 500 mg PO BID 7 days #14 tabs 09/07/24 Allergies Allergy/AdvReac Type Severity Reaction Status Date / Time doxycycline Allergy Rash Verified 09/09/24 18:25 Review of Systems Review of Systems: Yes all other systems are reviewed and are negative PMFSH Past Medical History Attestation statement: The following information was validated with the patient. 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 Microcytic anemia Multiple sclerosis Headache Surgical History H/O hernia repair Family History Family History Other No family history of coronary artery disease Social History Social History Household Members: Family Housing: Apartment 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 have visiting nurse or other home services: Yes Unable to assess alcohol history related to: Unknown Alcohol intake: never Patient Tobacco Use Status: Never used Tobacco Tobacco use type: Cigarette Cigarettes Per Day: 0.25 Smoked in Last 30 Days: Yes Use of substances other than those prescribed or required for medical reasons: Yes Substance Use Type: Marijuana Substance Use Frequency: Occasionally Advance Directives: Yes Advance Directives on File: Yes Advance Directives Date on File: 08/21/22 Do you have a plan to hurt others: No Plan service: No Current occupational status: disabled Physical Exam ED Vital Signs: Vital Signs - 24 hr 09/09/24 18:22 09/09/24 19:24 09/09/24 19:40 Temperature 99.3 F 103.8 F H 103.6 F H Pulse Rate 152 H 142 H 138 H Respiratory Rate 20 20 16 Blood Pressure 144/95 H 110/81 Pulse Oximetry 97 98 Oxygen Delivery Method Room Air Room Air 09/09/24 20:09 09/09/24 20:10 09/09/24 20:21 Temperature 99.7 F 102.7 F H 101.8 F H Pulse Rate 126 H 123 H 116 H Respiratory Rate 29 H 20 20 Blood Pressure 123/72 123/72 123/80 Pulse Oximetry 95 96 96 Oxygen Delivery Method Room Air Room Air Room Air 09/09/24 21:15 09/09/24 21:42 09/09/24 22:01 Temperature 100.6 F H 100.2 F 99.7 F Pulse Rate 92 108 H 99 Respiratory Rate 16 20 18 Blood Pressure 123/79 114/71 Pulse Oximetry 96 96 97 Oxygen Delivery Method Room Air Room Air Room Air 09/09/24 23:19 Temperature 99 F Pulse Rate 92 Respiratory Rate 17 Blood Pressure 108/75 Pulse Oximetry 96 Oxygen Delivery Method Room Air BMI result Body Mass Index 31.5 Tachycardic to 150s, febrile to 102 General: Diaphoretic, anxious Skin: Warm, dry, intact. No rashes or lesions. Head: Normocephalic, atraumatic. EENT: Hearing is intact b/l. Conjunctiva clear. Sclera is anicteric. PERRLA. EOM intact. Moist mucous membranes.? Neck: Supple without LAD Cardiac: Chest wall symmetric. Tachycardic, regular rhythm Lungs: Normal respiratory effort without accessory muscle use. CTA bilaterally. No rales, rhonchi, or wheezes.? Abdomen: Abdomen is soft, nondistended, nontender to palpation without rebound tenderness or guarding. Suprapubic catheter in place without surrounding erythema. No noted discharge or bleeding. Suprapubic catheter draining, straw-colored urine in bag. Ext: Upper and lower extremities atraumatic, without tenderness, deformity, swelling or erythema Neuro: AOx3. Psych: Appropriate mood and affect. Responds appropriately to questions. Course Course Course Narrative: 1844 -- I was called to bedside as patient was noted to be tachycardic to 150's. EKG showing sinus tachycardia with a rate of 152 beats per minute, QT 246, left anterior fascicular block, no acute ischemic changes or ST elevations 1930 -- rectal temp 103.8?F. Still tachycardic to 140s. IV Tylenol ordered. labs/ UA pending. > sepsis alert initiated. Patient receiving 1 L of fluids. Lactic WNL. Cefepime ordered for broad-spectrum coverage. Blood culture sent. 2149 -- CBC with leukocytosis to 18.6 with left shift. Chronic microcytic anemia, H&H around baseline and above transfusion threshold. VBG WNL. Chemistry showing hypokalemia to 2.6, magnesium WNL. IV repletion ordered. No other acute electrolyte abnormality requiring intervention. No CAMRYN. Normal liver function. Initial troponin 14, likely demand. negative for covid, flu, rsv. urine infected. > vitals improving with tylenol admin - HR 99, temp 99.7F. > I reached out to hospitalist dr. rod who has agreed to admission for hypokalemia and severe sepsis d/t UTI. Medications Administered Generic Name Dose Route Start Last Admin Trade Name Freq PRN Reason Stop Dose Admin Lactated Ringer's 1,000 mls @ 125 mls/hr 09/09/24 23:45 09/10/24 01:16 Lr IVCONT 125 mls/hr .Q8H LALO Administration Sodium Chloride 3 ml 09/10/24 00:00 09/10/24 00:17 0.9 % Sodium Chloride Flush 3 Ml Syringe IVFLUSH Not Given QSHIFT LALO Discontinued Medications Generic Name Dose Route Start Last Admin Trade Name Elijah PRN Reason Stop Dose Admin Sodium Chloride 1,000 mls @ 999 mls/hr 09/09/24 18:45 09/09/24 20:05 Ns IV 09/09/24 19:45 Infused .Q1H1M LALO Infusion Acetaminophen 1,000 mg in 100 mls @ 400 mls/hr 09/09/24 19:23 09/09/24 19:50 Ofirmev IV 09/09/24 19:37 Infused ONCE ONE Infusion Cefepime HCl 2 gm in 50 mls @ 100 mls/hr 09/09/24 20:00 09/09/24 20:05 Maxipime IV Infused Q8H LALO Infusion Potassium Chloride 10 meq in 100 mls @ 100 mls/hr 09/09/24 21:30 09/10/24 01:16 Potassium Chloride/H20 IV 09/10/24 01:29 100 mls/hr Q1H LALO Administration Medical Decision Making Medical Decision Making MDM Narrative: 39 year old male with pmhx significant for 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 Patient is tachycardic to 152, tachypneic, and febrile. appearing anxious, diaphoretic. Abdomen is soft, nondistended, nontender to palpation without rebound tenderness or guarding. Suprapubic catheter in place without surrounding erythema. No noted discharge or bleeding. Suprapubic catheter draining, straw-colored urine in bag. Differential diagnosis includes anemia, electrolyte abnormality, dehydration, arrhythmia, ACS, viral syndrome, bronchitis, pneumonia, aspiration pneumonia, urinary tract infection, sepsis, urosepsis Plan for labs, UA, chest x-ray, EKG cover viral swabs Differential Diagnosis Differential Diagnoses: The differential diagnosis associated with the presentation includes as above Admission/Observation Consideration of admission/observation: Escalation of care including admission/observation considered Patient admitted to medicine for acute hypokalemia and severe sepsis likely due to UTI at [facility] Provider Management of the patient was discussed with: Hospitalist (Dr. rod) Lab Data MDM Lab Attestation statement: I reviewed the patient's lab results. as above. 09/09/24 18:45 09/09/24 20:51 Labs: Lab Results 09/09/24 09/09/24 09/09/24 Range/Units 18:45 18:48 18:54 WBC 18.6 H (4.8-10.8) X10*3/uL RBC 5.13 (4.60-5.80) X10*6/uL Hgb 13.3 L (14.0-18.0) g/dl Hct 39.8 L (42.0-52.0) % MCV 77.6 L (80.0-98.0) fL MCH 25.9 L (27.0-33.0) pg MCHC 33.4 (31.0-36.0) g/dl RDW 14.6 (11.0-16.0) % Plt Count 236 (160-400) X10*3/uL MPV 12.8 H (9.4-12.4) fL Immature Gran % (Auto) 0.3 (0.0-0.4) % Neut % (Auto) 84.9 H (45-73) % Lymph % (Auto) 5.6 L (20-40) % [place] % (Auto) 8.2 (2-11) % Eos % (Auto) 0.8 (0-4) % Baso % (Auto) 0.2 (0-2) % Lymph # (Auto) 1.0 L (1.2-4.9) X10*3/uL [place] # (Auto) 1.5 H (0.1-1.2) X10*3/uL Eos # (Auto) 0.1 (0.0-0.4) X10*3/uL Baso # (Auto) 0.0 (0.0-0.2) X10*3/uL Abs Immat Gran (auto) 0.06 H (0.00-0.03) X10*3/uL Absolute Neuts (auto) 15.8 H (2.0-8.3) x10*3/uL Absolute Nucleated RBC 0.000 (0.0-0.012) X10*3/uL Nucleated RBC % (auto) 0.0 (0.0-0.2) /100WBC Smear Tech's Comments VERIFIED PT 13.4 H (10.9-12.4) SEC INR 1.2 H (0.9-1.1) VBG pH 7.41 (7.32-7.43) VBG pCO2 40 mmHg VBG pO2 54 mmHg VBG HCO3 26 (22-26) mmol/L VBG O2 Saturation 83.0 % VBG Base Excess 1.4 mmol/L Sodium (135-145) mmol/L Potassium (3.3-5.1) mmol/L Chloride (96-108) mmol/L Carbon Dioxide (22-29) mmol/L Anion Gap (12-20) BUN (9-16) mg/dL Creatinine (0.5-1.4) mg/dL Estim Creat Clear Calc Estimated GFR Random Glucose (60-115) mg/dL Lactic Acid 1.9 (0.5-2.0) mmol/L Calcium (8.4-10.2) mg/dL Magnesium (1.6-2.6) mg/dL Total Bilirubin (0.0-1.0) mg/dL AST (5-37) U/L ALT (0-40) U/L Alkaline Phosphatase (39-117) U/L Troponin I High Sens (<3.5-35.0) ng/L C-Reactive Protein Cancelled B-Natriuretic Peptide < 10 (<100) pg/mL Total Protein (6.5-8.0) g/dL Albumin (3.5-5.0) g/dL Urine Color Urine Appearance Urine pH (5.0-9.0) Ur Specific [place] (1.005-1.025) Urine Protein (Neg-Trace) mg/dL Urine Glucose (UA) (Negative) mg/dL Urine Ketones (Negative) mg/dL Urine Blood (Negative) Urine Nitrite (Negative) Ur Leukocyte Esterase (Negative) Urine RBC (0-2) /HPF Urine WBC (0-5) /HPF Ur Squamous Epith Cells (0-2) /HPF Urine Bacteria (None Seen) Hyaline Casts (0-2) /LPF Influenza Type A (PCR) NEGATIVE (Negative) Influenza Type B (PCR) NEGATIVE (Negative) RSV RNA Qual (PCR) NEGATIVE (Negative) SARS-CoV-2 RNA (RT-PCR) NEGATIVE (Negative) 09/09/24 09/09/24 Range/Units 19:04 20:51 WBC (4.8-10.8) X10*3/uL RBC (4.60-5.80) X10*6/uL Hgb (14.0-18.0) g/dl Hct (42.0-52.0) % MCV (80.0-98.0) fL MCH (27.0-33.0) pg MCHC (31.0-36.0) g/dl RDW (11.0-16.0) % Plt Count (160-400) X10*3/uL MPV (9.4-12.4) fL Immature Gran % (Auto) (0.0-0.4) % Neut % (Auto) (45-73) % Lymph % (Auto) (20-40) % [place] % (Auto) (2-11) % Eos % (Auto) (0-4) % Baso % (Auto) (0-2) % Lymph # (Auto) (1.2-4.9) X10*3/uL [place] # (Auto) (0.1-1.2) X10*3/uL Eos # (Auto) (0.0-0.4) X10*3/uL Baso # (Auto) (0.0-0.2) X10*3/uL Abs Immat Gran (auto) (0.00-0.03) X10*3/uL Absolute Neuts (auto) (2.0-8.3) x10*3/uL Absolute Nucleated RBC (0.0-0.012) X10*3/uL Nucleated RBC % (auto) (0.0-0.2) /100WBC Smear Tech's Comments PT (10.9-12.4) SEC INR (0.9-1.1) VBG pH (7.32-7.43) VBG pCO2 mmHg VBG pO2 mmHg VBG HCO3 (22-26) mmol/L VBG O2 Saturation % VBG Base Excess mmol/L Sodium 139 (135-145) mmol/L Potassium 2.6 L* (3.3-5.1) mmol/L Chloride 103 (96-108) mmol/L Carbon Dioxide 19 L (22-29) mmol/L Anion Gap 20 (12-20) BUN 10 (9-16) mg/dL Creatinine 0.69 (0.5-1.4) mg/dL Estim Creat Clear Calc 163.1 Estimated GFR > 60 Random Glucose 88 (60-115) mg/dL Lactic Acid (0.5-2.0) mmol/L Calcium 8.5 (8.4-10.2) mg/dL Magnesium 1.7 (1.6-2.6) mg/dL Total Bilirubin 0.3 (0.0-1.0) mg/dL AST 22 (5-37) U/L ALT 15 (0-40) U/L Alkaline Phosphatase 52 (39-117) U/L Troponin I High Sens 14.0 (<3.5-35.0) ng/L C-Reactive Protein 5.67 H B-Natriuretic Peptide (<100) pg/mL Total Protein 7.5 (6.5-8.0) g/dL Albumin 3.6 (3.5-5.0) g/dL Urine Color Dark Yellow Urine Appearance Cloudy Urine pH 5.5 (5.0-9.0) Ur Specific [place] 1.025 (1.005-1.025) Urine Protein 300 (3+) H (Neg-Trace) mg/dL Urine Glucose (UA) Negative (Negative) mg/dL Urine Ketones 80 (Negative) mg/dL Urine Blood Large (3+) H (Negative) Urine Nitrite Negative (Negative) Ur Leukocyte Esterase Moderate (2+) H (Negative) Urine RBC 3-5 H (0-2) /HPF Urine WBC >50 H (0-5) /HPF Ur Squamous Epith Cells 0-2 (0-2) /HPF Urine Bacteria Trace (None Seen) Hyaline Casts 3-5 (0-2) /LPF Influenza Type A (PCR) (Negative) Influenza Type B (PCR) (Negative) RSV RNA Qual (PCR) (Negative) SARS-CoV-2 RNA (RT-PCR) (Negative) Independent Interpretation I performed an independent interpretation of an: EKG and Plain X-Ray Interpretation: EKG showing sinus tachycardia with a rate of 152 beats per minute, left anterior fasicular block, no acute ischemic changes or st elevations CXR without focal consolidation or infiltrate Radiology Impression Discussion of test interpretation with radiology: I have reviewed the radiologist's reading. Radiologist Impression: EXAMINATION: XR CHEST CLINICAL INFORMATION: SOB COMPARISON: 04/05/2023 TECHNIQUE: Frontal view of the chest was obtained. FINDINGS: Normal cardiomediastinal silhouette. Mild bronchial wall thickening with some streaky opacities in both lungs, no consolidation. There is no pleural effusion or pneumothorax. XR/XR chest 1V IMPRESSION: Mild bronchial wall thickening with streaky opacities suggesting small airways disease. No consolidation. Independent Historian Clinical information obtained from an independent historian. History obtained from or confirmed by: EMS External Record Review External record reviewed: Inpatient record, Office record, Outpatient record, Prior outpatient labs, Prior outpatient radiology, Primary care record and Outside ED record Prescription Management I considered prescription management with: Antibiotic Chronic Conditions Patient?s care impacted by: Other (Chronic suprapubic catheter) Social Determinants Patient?s care significantly limited by Social Determinants of Health including: Other Social Determinant of Health Critical Care Time Critical Care Time Critical Care Time: Yes Total Critical Care Time: 36 Attestation: Critical care time in the amount of 36 minutes has been provided to the patient in terms of direct patient care, frequent reevaluation, consultation with hospitalist, review and interpretation of medical data and results, and management of potentially life-threatening conditions. This is all outside of any medical procedures. Discharge Plan Discharge Clinical Impression: Acute hypokalemia, Sepsis, Urinary tract infection Patient Disposition: Admitted As Inpatient
[2024-09-09 18:54] LABS: Basophils Percent Auto 0.2 % (0-2); Eosinophils Absolute Auto 0.1 X10*3/uL (0.0-0.4); Eosinophils Percent Auto 0.8 % (0-4); Hematocrit 39.8 % (42.0-52.0); Hemoglobin 13.3 g/dl (14.0-18.0); Imm Gran Abs Auto 0.06 X10*3/uL (0.00-0.03); Imm Gran Pct Auto 0.3 % (0.0-0.4); Lymphocytes Percent Auto 5.6 % (20-40); Mean Corpuscular HGB Conc 33.4 g/dl (31.0-36.0); Mean Corpuscular Hemoglobin 25.9 pg (27.0-33.0); Mean Corpuscular Volume 77.6 fL (80.0-98.0); Mean Platelet Volume 12.8 fL (9.4-12.4); Monocytes Absolute Auto 1.5 X10*3/uL (0.1-1.2); Monocytes Percent Auto 8.2 % (2-11); Neutrophils Absolute Auto 15.8 x10*3/uL (2.0-8.3); Neutrophils Percent Auto 84.9 % (45-73); Platelet Count 236 X10*3/uL (160-400); Red Blood Count 5.13 X10*6/uL (4.60-5.80); Red Cell Distribution Width 14.6 % (11.0-16.0); SCAN SMEAR FLAG 1; White Blood Count 18.6 X10*3/uL (4.8-10.8)
[2024-09-09] MEDS: 0.9 % Sodium Chloride 1,000 ML 999 ML IV (18:55)
[2024-09-09 19:00] LABS: VBG Base Excess 1.4 mmol/L; VBG HCO3 26 mmol/L (22-26); VBG pCO2 40 mmHg; VBG pH 7.41 (7.32-7.43); VBG pO2 54 mmHg
[2024-09-09 19:08] LABS: Lactic Acid 1.9 mmol/L (0.5-2.0)
[2024-09-09 19:18] LABS: Venous Blood Gas Refer to POC result
[2024-09-09 19:22] LABS: Appearance Urine Cloudy; Color Urine Dark Yellow; Glucose Urine UA Negative (Negative); Leukocyte Esterase Urine Moderate (2+) (Negative); Nitrite Urine Negative (Negative); PH 5.5 (5.0-9.0); Specific Gravity - Urine 1.025 (1.005-1.025); UMIC TRIGGER UACC YES; Urine Blood Large (3+) (Negative); Urine Ketones 80 mg/dL (Negative); Urine Protein 300 (3+) mg/dL (Neg-Trace)
[2024-09-09 19:26] LABS: INTERNATIONAL NORM RATIO 1.2 (0.9-1.1); Prothrombin Time 13.4 SEC (10.9-12.4)
[2024-09-09] MEDS: Acetaminophen 1,000 MG/100 ML PIGGYBACK 400 MG IV (19:35)
[2024-09-09] MEDS: cefEPime HCl/D5W 2 GM/50 ML PIGGYBACK IV (19:35)
[2024-09-09 19:50] LABS: MANUAL DIFF FLAG SCAN
[2024-09-09 19:51] LABS: SLIDE REVIEW VERIFIED
[2024-09-09 19:56] LABS: Influenza A PCR NEGATIVE (Negative); Influenza B PCR NEGATIVE (Negative); Resp Syncy Virus RNA Qual PCR NEGATIVE (Negative); SARS COV2 PCR INHOUSE NEGATIVE (Negative)
[2024-09-09 20:11] LABS: Bacteria Urine Trace (None Seen); Squamous Epithelial Cell Urine 0-2 /HPF (0-2); UACC Culture Trigger YES; WBC Urine >50 /HPF (0-5)
[2024-09-09 20:40] LABS: B Type Natriuretic Peptide < 10 pg/mL (<100)
[2024-09-09 21:20] LABS: Alanine Aminotransferase 15 U/L (0-40); Albumin Level 3.6 g/dL (3.5-5.0); Alkaline Phosphatase 52 U/L (39-117); Anion Gap 20 (12-20); Aspartate Amino Transferase 22 U/L (5-37); Bilirubin Total 0.3 mg/dL (0.0-1.0); Blood Urea Nitrogen 10 mg/dL (9-16); C Reactive Protein 5.67 mg/dL (< or = 0.50); Calcium 8.5 mg/dL (8.4-10.2); Carbon Dioxide 19 mmol/L (22-29); Chloride 103 mmol/L (96-108); Creatinine Clr Calc Pharmacy 163.1; Estimated Glomerular Filt Rate > 60; Glucose Random 88 mg/dL (60-115); Magnesium 1.7 mg/dL (1.6-2.6); Potassium 2.6 mmol/L (3.3-5.1); Sodium 139 mmol/L (135-145); Total Protein 7.5 g/dL (6.5-8.0)
[2024-09-09] MEDS: Potassium Chloride/H20 10 MEQ/100 ML PIGGYBACK 100 MEQ IV ×2 (22:09→23:17)
--- NOTE | 2024-09-09 23:04 | PM.IMHP ---
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 Also have not bee feeling well and has had fevers. Additionally, he is reporting feeling feeling like when he drinks anything it goes down the wrong pipe however, he has no problem with eating solids. He had a fever or 103, HR 150 initially, WBC of 18K, and positive UA. He is giving cefepime for UTI; he has history of e.coli, proteus and pseudomonas in urine. HR and temperature have normalized with ivf and antibiotics and he reports now feeling good. Review of Systems Review of Systems: Gen: no fever Resp: no sob, no cough CV: no chest, no BAZAN, no leg edema GI: No n/v, no abd pain Neuro: No confusion Yes all other systems are reviewed and are negative [facility] Medical History 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 Microcytic anemia Multiple sclerosis Headache Family History Other No family history of coronary artery disease Surgical History H/O hernia repair Social History Household Members: Family Housing: Apartment 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 have visiting nurse or other home services: Yes Unable to assess alcohol history related to: Unknown Alcohol intake: never Patient Tobacco Use Status: Never used Tobacco Tobacco use type: Cigarette Cigarettes Per Day: 0.25 Smoked in Last 30 Days: Yes Use of substances other than those prescribed or required for medical reasons: Yes Substance Use Type: Marijuana Substance Use Frequency: Occasionally Advance Directives: Yes Advance Directives on File: Yes Advance Directives Date on File: 08/21/22 Do you have a plan to hurt others: No Plan service: No Current occupational status: disabled Meds Allergies Allergy/AdvReac Type Severity Reaction Status Date / Time doxycycline Allergy Rash Verified 09/09/24 18:25 Active Medications: Current Medications Cefepime HCl (Maxipime) 2 gm in 50 mls @ 100 mls/hr IV Q8H LALO Last Infusion: 09/09/24 20:05 Dose: Infused Potassium Chloride (Potassium Chloride/H20) 10 meq in 100 mls @ 100 mls/hr IV Q1H LALO Stop: 09/10/24 01:29 Last Admin: 09/09/24 22:09 Dose: 100 mls/hr Home Medications ?Medication ?Instructions ?Recorded ?Confirmed ?Last Taken ?Type cholecalciferol (vitamin D3) 50 1 cap PO QAM 09/18/21 02/22/24 02/20/24 History mcg (2,000 unit) capsule multivitamin 1 tab PO DAILY 08/20/22 02/22/24 02/20/24 History omega-3 300 mg-dha 120 mg-epa 180 1 cap PO DAILY 08/20/22 02/22/24 02/20/24 History mg-fish oil 1,000 mg capsule prednisone 20 mg tablet 20 mg PO DAILY 02/22/24 02/22/24 02/20/24 History sertraline 50 mg tablet 50 mg PO QAM 02/22/24 02/22/24 02/20/24 History tizanidine 2 mg tablet 2 mg PO BEDTIME PRN Muscle Spasm 02/22/24 02/22/24 Unknown History tizanidine 2 mg tablet 2 mg PO QAM 02/22/24 02/22/24 02/20/24 History Physical Exam Vital Signs and Narrative: Vital Signs: Last Vital Signs Temp 99.7 F 09/09/24 22:01 Pulse 99 09/09/24 22:01 Resp 18 09/09/24 22:01 BP 114/71 09/09/24 22:01 Pulse Ox 97 09/09/24 22:01 O2 Del Method Room Air 09/09/24 22:01 BMI result Body Mass Index 31.5 Const: Other: . Results Labs 09/09/24 18:45 09/09/24 20:51 Labs: Laboratory Results - last 24 hr 09/09/24 09/09/24 09/09/24 18:45 18:48 18:54 MCV 77.6 L MCH 25.9 L MCHC 33.4 RDW 14.6 Plt Count 236 MPV 12.8 H Immature Gran % (Auto) 0.3 Neut % (Auto) 84.9 H Lymph % (Auto) 5.6 L [place] % (Auto) 8.2 Eos % (Auto) 0.8 Baso % (Auto) 0.2 Lymph # (Auto) 1.0 L [place] # (Auto) 1.5 H Eos # (Auto) 0.1 Baso # (Auto) 0.0 Abs Immat Gran (auto) 0.06 H Absolute Neuts (auto) 15.8 H Absolute Nucleated RBC 0.000 Nucleated RBC % (auto) 0.0 Smear Tech's Comments VERIFIED PT 13.4 H INR 1.2 H VBG pH 7.41 VBG pCO2 40 VBG pO2 54 VBG HCO3 26 VBG O2 Saturation 83.0 VBG Base Excess 1.4 Anion Gap Estim Creat Clear Calc Estimated GFR Random Glucose Lactic Acid 1.9 Calcium Magnesium Total Bilirubin AST ALT Alkaline Phosphatase Troponin I High Sens C-Reactive Protein Cancelled B-Natriuretic Peptide < 10 Total Protein Albumin Urine Color Urine Appearance Urine pH Ur Specific [place] Urine Protein Urine Glucose (UA) Urine Ketones Urine Blood Urine Nitrite Ur Leukocyte Esterase Urine RBC Urine WBC Ur Squamous Epith Cells Urine Bacteria Hyaline Casts Influenza Type A (PCR) NEGATIVE Influenza Type B (PCR) NEGATIVE RSV RNA Qual (PCR) NEGATIVE SARS-CoV-2 RNA (RT-PCR) NEGATIVE 09/09/24 09/09/24 19:04 20:51 MCV MCH MCHC RDW Plt Count MPV Immature Gran % (Auto) Neut % (Auto) Lymph % (Auto) [place] % (Auto) Eos % (Auto) Baso % (Auto) Lymph # (Auto) [place] # (Auto) Eos # (Auto) Baso # (Auto) Abs Immat Gran (auto) Absolute Neuts (auto) Absolute Nucleated RBC Nucleated RBC % (auto) Smear Tech's Comments PT INR VBG pH VBG pCO2 VBG pO2 VBG HCO3 VBG O2 Saturation VBG Base Excess Anion Gap 20 Estim Creat Clear Calc 163.1 Estimated GFR > 60 Random Glucose 88 Lactic Acid Calcium 8.5 Magnesium 1.7 Total Bilirubin 0.3 AST 22 ALT 15 Alkaline Phosphatase 52 Troponin I High Sens 14.0 C-Reactive Protein 5.67 H B-Natriuretic Peptide Total Protein 7.5 Albumin 3.6 Urine Color Dark Yellow Urine Appearance Cloudy Urine pH 5.5 Ur Specific [place] 1.025 Urine Protein 300 (3+) H Urine Glucose (UA) Negative Urine Ketones 80 Urine Blood Large (3+) H Urine Nitrite Negative Ur Leukocyte Esterase Moderate (2+) H Urine RBC 3-5 H Urine WBC >50 H Ur Squamous Epith Cells 0-2 Urine Bacteria Trace Hyaline Casts 3-5 Influenza Type A (PCR) Influenza Type B (PCR) RSV RNA Qual (PCR) SARS-CoV-2 RNA (RT-PCR) Imaging Radiologist's Impressions: Impressions Chest X-Ray 09/09/24 19:15 IMPRESSION: Mild bronchial wall thickening with streaky opacities suggesting small airways disease. No consolidation. Electronically signed by: Kingsley Omer MD 09/09/2024 07:50 PM [facility] Assessment and Plan (1) Sepsis: Status: Acute (2) Acute hypokalemia: Status: Acute (3) Catheter-associated urinary tract infection: Qualifiers: Encounter type: subsequent encounter Indwelling urinary catheter type: indwelling urethral catheter Qualified Code(s): T83.511D - Infection and inflammatory reaction due to indwelling urethral catheter, subsequent encounter; N39.0 - Urinary tract infection, site not specified Status: Acute Plan 39 yo male hx of neuromyelitis optica spectrum disorder, MS with neurogenic bladder and chronic suprapubic catheter, bed bound, recurent uti here with sepsis d/t uti Severe sepsis d/t UTI -continue cefepime started in the ED -follow cultures Acute hypokalemia -replace with IV K Dysphagia--he is reporting dysphagia to liquid -[employer] eval tomorrow Malfunction suprapubic cather--seems to be draining fine dvt prophylaxis--lovenox full code admission for at least 2 midnights for the management of severe sepsis with IV abx Quality Stroke Does the patient have a stroke diagnosis?: No VTE Prior VTE?: No VTE Risk Level:: Medical - moderate - high VTE Device Contraindication: Treatment Not Indicated VTE Drug Contraindication: N/A - Med Ordered
[2024-09-10 01:16] VITALS: BP 118/84; PULSE 90; RESP 20; TEMP 36.8; O2SAT 98
[2024-09-10] MEDS: Lactated Ringers 1,000 ML 125 ML IVCONT ×3 (01:16→18:28)
[2024-09-10] MEDS: Potassium Chloride/H20 10 MEQ/100 ML PIGGYBACK 100 MEQ IV ×2 (01:16→02:34)
[2024-09-10 04:43] LABS: Basophils Percent Auto 0.2 % (0-2); Neutrophils Percent Auto 79.1 % (45-73); PLT ABN DIST 1; Red Cell Distribution Width 14.6 % (11.0-16.0); SCAN SMEAR FLAG 1
[2024-09-10 04:45] LABS: Eosinophils Absolute Auto 0.1 X10*3/uL (0.0-0.4); Eosinophils Percent Auto 0.8 % (0-4); Hematocrit 35.6 % (42.0-52.0); Hemoglobin 11.6 g/dl (14.0-18.0); Imm Gran Abs Auto 0.07 X10*3/uL (0.00-0.03); Imm Gran Pct Auto 0.5 % (0.0-0.4); Lymphocytes Absolute Auto 0.9 X10*3/uL (1.2-4.9); MANUAL DIFF FLAG SCAN; Mean Corpuscular HGB Conc 32.6 g/dl (31.0-36.0); Mean Corpuscular Hemoglobin 25.3 pg (27.0-33.0); Mean Corpuscular Volume 77.7 fL (80.0-98.0); Mean Platelet Volume 12.4 fL (9.4-12.4); Monocytes Absolute Auto 2.1 X10*3/uL (0.1-1.2); Monocytes Percent Auto 13.4 % (2-11); Neutrophils Absolute Auto 12.2 x10*3/uL (2.0-8.3); Platelet Count 156 X10*3/uL (160-400); Red Blood Count 4.58 X10*6/uL (4.60-5.80); White Blood Count 15.4 X10*3/uL (4.8-10.8)
[2024-09-10 04:59] LABS: Anion Gap 18 (12-20); Blood Urea Nitrogen 6 mg/dL (9-16); Carbon Dioxide 20 mmol/L (22-29); Chloride 106 mmol/L (96-108); Creatinine Clr Calc Pharmacy 181.5; Estimated Glomerular Filt Rate > 60; Glucose Random 84 mg/dL (60-115); Magnesium 1.9 mg/dL (1.6-2.6); Potassium 3.7 mmol/L (3.3-5.1); Sodium 140 mmol/L (135-145)
[2024-09-10 05:04] LABS: SLIDE REVIEW VERIFIED
--- NOTE | 2024-09-10 05:22 | PC.NURSE ---
report given to overem quach.
[2024-09-10] MEDS: cefEPime HCl/D5W 2 GM/50 ML PIGGYBACK IV ×2 (08:26→18:50)
[2024-09-10 08:33] VITALS: BP 149/85; PULSE 84; RESP 16; TEMP 36.7; O2SAT 98
[2024-09-10 09:11] VITALS: BP 129/77; PULSE 102; RESP 18; TEMP 36.9; O2SAT 97
[2024-09-10] MEDS: Enoxaparin Sodium 40 MG/0.4 ML SYRINGE SUBCUT (09:26)
--- NOTE | 2024-09-10 11:04 | P.PNIM_ITS ---
Subjective Subjective Date of Service: 09/10/24 Physical Exam 2 Vital Signs: Vital Signs: Last Vital Signs Temp 98.5 F 09/10/24 09:11 Pulse 102 H 09/10/24 09:11 Resp 18 09/10/24 09:11 BP 129/77 09/10/24 09:11 Pulse Ox 97 09/10/24 09:11 O2 Del Method Room Air 09/10/24 09:11 BMI result Body Mass Index 31.5 Objective Data Active Medications Acetaminophen (Acetaminophen 325 Mg Tablet) 650 mg PO Q6H PRN PRN Reason: Pain, Mild (Pain Scale 1-3), fever or headache Calcium Carbonate (Calcium Carbonate 750 Mg Tab.Chew) 750 mg PO Q4H PRN PRN Reason: Heartburn Enoxaparin Sodium (Enoxaparin Sodium 40 Mg/0.4 Ml Syringe) 40 mg SUBCUT DAILY [facility] Last Admin: 09/10/24 09:26 Dose: 40 mg Documented By: JOCELYNN Cefepime HCl (Maxipime) 2 gm in 50 mls @ 100 mls/hr IV Q12H [facility] Last Infusion: 09/10/24 09:01 Dose: Infused Documented By: ANDRY Lactated Ringer's (Lr) 1,000 mls @ 125 mls/hr IVCONT .Q8H [facility] Last Admin: 09/10/24 10:19 Dose: 125 mls/hr Documented By: KAM Magnesium Hydroxide (Milk Of Magnesia 30 Ml Oral.Susp) 30 ml PO DAILY PRN PRN Reason: Constipation Melatonin (Melatonin 3 Mg Tablet) 6 mg PO BEDTIME PRN PRN Reason: Insomnia Ondansetron HCl (Ondansetron Hcl 4 Mg/2 Ml Vial) 4 mg IVPUSH Q8H PRN PRN Reason: Nausea and Vomiting Polyethylene Glycol (Polyethylene Glycol 3350 17 Gm Powd.Pack) 17 gm PO DAILY PRN PRN Reason: Constipation Sodium Chloride (0.9 % Sodium Chloride Flush 3 Ml Syringe) 3 ml IVFLUSH QSHIFT [facility] Last Admin: 09/10/24 08:18 Dose: Not Given Documented By: ANDRY Non-Admin Reason: IV Running Labs 09/10/24 04:10 09/10/24 04:10 Labs: Laboratory Results - last 24 hr 09/09/24 09/09/24 09/09/24 18:45 18:48 18:54 MCV 77.6 L MCH 25.9 L MCHC 33.4 RDW 14.6 Plt Count 236 MPV 12.8 H Immature Gran % (Auto) 0.3 Neut % (Auto) 84.9 H Lymph % (Auto) 5.6 L [place] % (Auto) 8.2 Eos % (Auto) 0.8 Baso % (Auto) 0.2 Lymph # (Auto) 1.0 L [place] # (Auto) 1.5 H Eos # (Auto) 0.1 Baso # (Auto) 0.0 Abs Immat Gran (auto) 0.06 H Absolute Neuts (auto) 15.8 H Absolute Nucleated RBC 0.000 Nucleated RBC % (auto) 0.0 Smear Tech's Comments VERIFIED PT 13.4 H INR 1.2 H VBG pH 7.41 VBG pCO2 40 VBG pO2 54 VBG HCO3 26 VBG O2 Saturation 83.0 VBG Base Excess 1.4 Anion Gap Estim Creat Clear Calc Estimated GFR Random Glucose Lactic Acid 1.9 Calcium Magnesium Total Bilirubin AST ALT Alkaline Phosphatase Troponin I High Sens C-Reactive Protein Cancelled B-Natriuretic Peptide < 10 Total Protein Albumin Urine Color Urine Appearance Urine pH Ur Specific [place] Urine Protein Urine Glucose (UA) Urine Ketones Urine Blood Urine Nitrite Ur Leukocyte Esterase Urine RBC Urine WBC Ur Squamous Epith Cells Urine Bacteria Hyaline Casts Influenza Type A (PCR) NEGATIVE Influenza Type B (PCR) NEGATIVE RSV RNA Qual (PCR) NEGATIVE SARS-CoV-2 RNA (RT-PCR) NEGATIVE 09/09/24 09/09/24 09/10/24 19:04 20:51 04:10 MCV 77.7 L MCH 25.3 L MCHC 32.6 RDW 14.6 Plt Count 156 L D MPV 12.4 Immature Gran % (Auto) 0.5 H Neut % (Auto) 79.1 H Lymph % (Auto) 6.0 L [place] % (Auto) 13.4 H Eos % (Auto) 0.8 Baso % (Auto) 0.2 Lymph # (Auto) 0.9 L [place] # (Auto) 2.1 H Eos # (Auto) 0.1 Baso # (Auto) 0.0 Abs Immat Gran (auto) 0.07 H Absolute Neuts (auto) 12.2 H Absolute Nucleated RBC 0.000 Nucleated RBC % (auto) 0.0 Smear Tech's Comments VERIFIED PT INR VBG pH VBG pCO2 VBG pO2 VBG HCO3 VBG O2 Saturation VBG Base Excess Anion Gap 20 18 Estim Creat Clear Calc 163.1 181.5 Estimated GFR > 60 > 60 Random Glucose 88 84 Lactic Acid Calcium 8.5 9.0 Magnesium 1.7 1.9 Total Bilirubin 0.3 AST 22 ALT 15 Alkaline Phosphatase 52 Troponin I High Sens 14.0 C-Reactive Protein 5.67 H B-Natriuretic Peptide Total Protein 7.5 Albumin 3.6 Urine Color Dark Yellow Urine Appearance Cloudy Urine pH 5.5 Ur Specific [place] 1.025 Urine Protein 300 (3+) H Urine Glucose (UA) Negative Urine Ketones 80 Urine Blood Large (3+) H Urine Nitrite Negative Ur Leukocyte Esterase Moderate (2+) H Urine RBC 3-5 H Urine WBC >50 H Ur Squamous Epith Cells 0-2 Urine Bacteria Trace Hyaline Casts 3-5 Influenza Type A (PCR) Influenza Type B (PCR) RSV RNA Qual (PCR) SARS-CoV-2 RNA (RT-PCR) Microbiology Microbiology Results: Microbiology 09/09/24 18:45 Blood Culture - Preliminary Blood - Venous Prelim: GPR Gram Stain only Assessment and Plan (1) Urinary tract infection: Status: Acute (2) Sepsis: Status: Acute (3) Acute hypokalemia: Status: Acute Plan 39 yo male hx of neuromyelitis optica spectrum disorder, MS with neurogenic bladder and chronic suprapubic catheter, bed bound, recurent uti here with sepsis d/t uti Severe sepsis d/t UTI 1 set reporting GPR recent U.Cx growing censitive Proteus follow cultures continue cefepime Acute hypokalemia resolved Dysphagia--he is reporting dysphagia to liquid AUTOCUTTER eval Malfunction suprapubic cather seems to be draining fine, monitor dvt prophylaxis--lovenox full code admission for overnight for the management of severe sepsis with IV abx pending final cultures Quality Stroke Does the patient have a stroke diagnosis?: No VTE Prior VTE?: No VTE Risk Level:: Medical - moderate - high VTE Device Contraindication: Treatment Not Indicated VTE Drug Contraindication: N/A - Med Ordered
--- NOTE | 2024-09-10 13:30 | PHA.MEDREC ---
Addendum entered by Shon Logan [facility] 09/10/24 14:18: Med rec reviewed Original Note: Pharmacy Consult ? Medication Reconciliation Pharmacy has completed the medication reconciliation. Spoke with patient with help from healthcare interpreter and patient did not seem to really know what he was taking right now. I asked him about him taking any antibiotics and if he takes any BID right now and he stated that he was taking an antibiotic but only once daily. I asked if he was talking about the Prednisone 20mg regimen but the patient stated he is not taking Prednisone steroid right now but I am taking an antibiotic once daily I asked if it was the Cefuroxime 500mg tab and the patient was not able to verify the name or dose of it. I asked if there was anyone at home I could call and the patient stated probably not at this time because everyone is out of the house or at work . I tried the patients contact David Barba but as soon as I dialed the number the phone number is not connected. Patients pharmacy is closed today due to the holiday and is not back open until September 13. We utilized claims to confirm patients med rec, since patient stated he is not taking the Prednisone steroid right we kept that off the med rec.
--- NOTE | 2024-09-10 13:59 | MHC.CM.PN ---
LUNG PULLER AND CM MET WITH PT AT BEDSIDE W/ CAREER TECHNOLOGY TEACHER PT STATES HE LIVES WITH WITH PARENTS AT HOME PT IS WHEELCHAIR BOUND PT USES [facility] AND [facility], BUT DOES NOT REMEMBER WHICH COMPANY. PT IS UNSURE OF OF [facility] IS [facility] PT REPORTS HCP , IS NOT READY TO COMPLETE A NEW ONE. PAPERWORK GIVEN. PT WILL NEED BLS TRANSPORT DCP: HOME, [facility].
[2024-09-10 15:34] VITALS: BP 136/86; PULSE 93; RESP 20; TEMP 36.5; O2SAT 99
[2024-09-10] MEDS: Cyclobenzaprine HCl 10 MG TABLET PO ×2 (15:39→20:10)
[2024-09-10] MEDS: 0.9 % Sodium Chloride Flush 3 ML SYRINGE IVFLUSH ×2 (15:46→20:15)
[2024-09-10] MEDS: Scopolamine 1.5 MG PATCH.TD.3 EAR-BEHIND (18:27)
--- NOTE | 2024-09-10 18:39 | PC.RT ---
RT called to bedside to NT suction pt. PT unable to clear own secretions. Attempt at NT suction x2. scant clear secretions suctioned. Manual CPT performed w/ minor improvement.
--- NOTE | 2024-09-10 18:49 | PC.NURSE ---
Patient reports experiencing difficulty managing own secretions. No signs of distress. RT notified and responded to bedside for suctioning. Dr. Alatorre notified.
[2024-09-10] MEDS: Ascorbic Acid 500 MG TABLET PO (20:10)
[2024-09-10] MEDS: Nystatin/Triamcinolone Cream 15 GM TUBE 1 APPL TOPICAL (20:10)
[2024-09-10] MEDS: Methenamine Hippurate 1 GM TABLET PO (20:11)
[2024-09-10] MEDS: TiZANidine HCL 4 MG TABLET 2 MG PO (20:14)
[2024-09-11] VITALS: BP 126/68; PULSE 97; RESP 16; TEMP 37.1; O2SAT 97
[2024-09-11] MEDS: Lactated Ringers 1,000 ML 125 ML IVCONT (02:12)
[2024-09-11] MEDS: cefEPime HCl/D5W 2 GM/50 ML PIGGYBACK IV ×2 (06:06→18:20)
[2024-09-11 07:22] VITALS: BP 136/82; PULSE 86; RESP 16; TEMP 36.4; O2SAT 98
[2024-09-11] MEDS: Cholecalciferol (Vitamin D3) 25 MCG TABLET 50 MCG PO (07:48)
[2024-09-11] MEDS: Multivitamin TABLET 1 TAB PO (07:48)
[2024-09-11] MEDS: Methenamine Hippurate 1 GM TABLET PO ×2 (07:48→21:53)
[2024-09-11] MEDS: Cyclobenzaprine HCl 10 MG TABLET PO ×3 (07:48→21:52)
[2024-09-11] MEDS: Enoxaparin Sodium 40 MG/0.4 ML SYRINGE SUBCUT (07:49)
[2024-09-11] MEDS: Ascorbic Acid 500 MG TABLET PO ×2 (07:49→21:53)
[2024-09-11] MEDS: Sertraline HCL 50 MG TABLET PO (07:49)
[2024-09-11] MEDS: Nystatin/Triamcinolone Cream 15 GM TUBE 1 APPL TOPICAL ×2 (07:50→21:59)
--- NOTE | 2024-09-11 11:55 | P.PNIM_ITS ---
Subjective Subjective Date of Service: 09/11/24 Interval History: seen and evaluated this morning tolerating diet no other events or fever reported Review of Systems Review of Systems: Yes all other systems are reviewed and are negative Physical Exam 2 Vital Signs: Vital Signs: Last Vital Signs Temp 97.5 F 09/11/24 07:22 Pulse 86 09/11/24 07:22 Resp 16 09/11/24 07:22 BP 136/82 09/11/24 07:22 Pulse Ox 98 09/11/24 07:22 O2 Del Method Room Air 09/11/24 07:22 BMI result Body Mass Index 31.5 Const: Other: Constitutional : interactive, not in distress Cardiovascular : no JVP, no lower extremity edema Respiratory : bilateral chest movement, not in resp distress Gastrointestinal: soft, lax, Non tender Skin : Warm, Dry Neurological : Alert & oriented , bedbound , truncal and extremity weakness Objective Data Active Medications Acetaminophen (Acetaminophen 325 Mg Tablet) 650 mg PO Q6H PRN PRN Reason: Pain, Mild (Pain Scale 1-3), fever or headache Ascorbic Acid (Ascorbic Acid 500 Mg Tablet) 500 mg PO BID [facility] Last Admin: 09/11/24 07:49 Dose: 500 mg Documented By: GENNA Calcium Carbonate (Calcium Carbonate 750 Mg Tab.Chew) 750 mg PO Q4H PRN PRN Reason: Heartburn Cyclobenzaprine HCl (Cyclobenzaprine Hcl 10 Mg Tablet) 10 mg PO TID [facility] Last Admin: 09/11/24 07:48 Dose: 10 mg Documented By: GENNA Diphenhydramine HCl (Diphenhydramine Hcl 25 Mg Capsule) 50 mg PO Q8H PRN PRN Reason: itching Enoxaparin Sodium (Enoxaparin Sodium 40 Mg/0.4 Ml Syringe) 40 mg SUBCUT DAILY [facility] Last Admin: 09/11/24 07:49 Dose: 40 mg Documented By: GENNA Cefepime HCl (Maxipime) 2 gm in 50 mls @ 100 mls/hr IV Q12H [facility] Last Infusion: 09/11/24 06:37 Dose: Infused Documented By: NELL Loratadine (Loratadine 10 Mg Tablet) 10 mg PO DAILY PRN PRN Reason: itching Magnesium Hydroxide (Milk Of Magnesia 30 Ml Oral.Susp) 30 ml PO DAILY PRN PRN Reason: Constipation Melatonin (Melatonin 3 Mg Tablet) 6 mg PO BEDTIME PRN PRN Reason: Insomnia Methenamine Hippurate (Methenamine Hippurate 1 Gm Tablet) 1 gm PO BID [facility] Last Admin: 09/11/24 07:48 Dose: 1 gm Documented By: GENNA Multivitamins/Vitamin C (Multivitamin Tablet) 1 tab PO DAILY [facility] Last Admin: 09/11/24 07:48 Dose: 1 tab Documented By: GENNA Nystatin/Triamcinolone Acetonide (Nystatin/Triamcinolone Cream 15 Gm Tube) 1 appl TOPICAL BID [facility] Last Admin: 09/11/24 07:50 Dose: 1 appl Documented By: GENNA Ondansetron HCl (Ondansetron Hcl 4 Mg/2 Ml Vial) 4 mg IVPUSH Q8H PRN PRN Reason: Nausea and Vomiting Polyethylene Glycol (Polyethylene Glycol 3350 17 Gm Powd.Pack) 17 gm PO DAILY PRN PRN Reason: Constipation Scopolamine (Scopolamine 1.5 Mg Patch.Td.3) 1.5 mg EAR-BEHIND Q72H [facility] Last Admin: 09/10/24 18:27 Dose: 1.5 mg Documented By: JOCELYNN Sertraline HCl (Sertraline Hcl 50 Mg Tablet) 50 mg PO DAILY [facility] Last Admin: 09/11/24 07:49 Dose: 50 mg Documented By: GENNA Sodium Chloride (0.9 % Sodium Chloride Flush 3 Ml Syringe) 3 ml IVFLUSH QSHIFT [facility] Last Admin: 09/11/24 07:49 Dose: Not Given Documented By: GENNA Non-Admin Reason: IV Running Tizanidine HCl (Tizanidine Hcl 4 Mg Tablet) 2 mg PO Q8H PRN PRN Reason: Muscle Spasm Last Admin: 09/10/24 20:14 Dose: 2 mg Documented By: NELL Vitamin D (Cholecalciferol (Vitamin D3) 25 Mcg Tablet) 50 mcg PO DAILY [facility] Last Admin: 09/11/24 07:48 Dose: 50 mcg Documented By: GENNA Labs 09/10/24 04:10 09/10/24 04:10 Microbiology Microbiology Results: Microbiology 09/09/24 19:04 Urine Culture - Final Urine clean catch - Clean Catch Midstream No growth. 11/28/24 18:45 Blood Culture - Preliminary Blood - Venous Prelim: GPR Gram Stain only 09/09/24 18:49 Blood Culture - Preliminary Blood - Venous No growth after 24 hours. Assessment and Plan (1) Urinary tract infection: Status: Acute (2) Sepsis: Status: Acute (3) Acute hypokalemia: Status: Acute Plan 39 yo male hx of neuromyelitis optica spectrum disorder, MS with neurogenic bladder and chronic suprapubic catheter, bed bound, recurent uti here with sepsis d/t uti Severe sepsis d/t UTI 1 set reporting GPR, likely contaminent, waiting final sensitivity recent U.Cx growing censitive Proteus, was on ceftin at home follow cultures continue cefepime Acute hypokalemia resolved Dysphagia- he is reporting dysphagia to liquid SECOND FACING BASTER eval Malfunction suprapubic cather seems to be draining fine, monitor dvt prophylaxis--lovenox full code admission for overnight for the management of severe sepsis with IV abx pending final cultures Quality Stroke Does the patient have a stroke diagnosis?: No VTE Prior VTE?: No VTE Risk Level:: Medical - moderate - high VTE Device Contraindication: Treatment Not Indicated VTE Drug Contraindication: N/A - Med Ordered
[2024-09-11] MEDS: 0.9 % Sodium Chloride Flush 3 ML SYRINGE IVFLUSH ×2 (14:47→21:56)
[2024-09-11 16:07] VITALS: BP 111/64; PULSE 89; RESP 12; TEMP 36.4; O2SAT 99
[2024-09-11] MEDS: TiZANidine HCL 4 MG TABLET 2 MG PO (21:53)
[2024-09-11 23:42] VITALS: BP 116/68; PULSE 83; RESP 16; TEMP 37.1; O2SAT 97
[2024-09-12] MEDS: cefEPime HCl/D5W 2 GM/50 ML PIGGYBACK IV (05:54)
[2024-09-12 07:39] VITALS: BP 114/71; PULSE 74; RESP 16; TEMP 36.5; O2SAT 97
[2024-09-12 08:01] LABS: Hematocrit 33.6 % (42.0-52.0); Hemoglobin 10.9 g/dl (14.0-18.0); Mean Corpuscular HGB Conc 32.4 g/dl (31.0-36.0); Mean Corpuscular Hemoglobin 25.4 pg (27.0-33.0); Mean Corpuscular Volume 78.3 fL (80.0-98.0); Mean Platelet Volume 13.2 fL (9.4-12.4); Platelet Count 171 X10*3/uL (160-400); Red Blood Count 4.29 X10*6/uL (4.60-5.80); Red Cell Distribution Width 14.7 % (11.0-16.0); White Blood Count 9.3 X10*3/uL (4.8-10.8)
[2024-09-12 08:10] VITALS: BP 125/79; PULSE 82; RESP 18; TEMP 36.2; O2SAT 97
[2024-09-12 08:19] LABS: Anion Gap 13 (12-20); Blood Urea Nitrogen 3 mg/dL (9-16); Calcium 8.6 mg/dL (8.4-10.2); Carbon Dioxide 28 mmol/L (22-29); Chloride 104 mmol/L (96-108); Creatinine Clr Calc Pharmacy 194.1; Estimated Glomerular Filt Rate > 60; Glucose Random 85 mg/dL (60-115); Potassium 3.2 mmol/L (3.3-5.1); Sodium 142 mmol/L (135-145)
[2024-09-12] MEDS: Cyclobenzaprine HCl 10 MG TABLET PO (08:46)
[2024-09-12] MEDS: Methenamine Hippurate 1 GM TABLET PO (08:46)
[2024-09-12] MEDS: 0.9 % Sodium Chloride Flush 3 ML SYRINGE IVFLUSH (08:47)
[2024-09-12] MEDS: Cholecalciferol (Vitamin D3) 25 MCG TABLET 50 MCG PO (08:47)
[2024-09-12] MEDS: Sertraline HCL 50 MG TABLET PO (08:47)
[2024-09-12] MEDS: Multivitamin TABLET 1 TAB PO (08:47)
[2024-09-12] MEDS: Enoxaparin Sodium 40 MG/0.4 ML SYRINGE SUBCUT (08:47)
[2024-09-12] MEDS: Ascorbic Acid 500 MG TABLET PO (08:47)
[2024-09-12] MEDS: Nystatin/Triamcinolone Cream 15 GM TUBE 1 APPL TOPICAL (08:55)
--- NOTE | 2024-09-12 11:34 | MHC.CM.PN ---
Addendum entered by Kassandra Angela 09/12/24 11:48: CORRECTION: TRANSPORT BOOKED FOR 1330 Original Note: PT WILL DC HOME TODAY WITH RESUMPTION OF DELIVERY [facility] AND [facility] NOTIFIED OF DC VIA [facility] SPOKE TO PTS COVERING DELIVERY MGR, ADALGISA [phone] SHE CONFIRMS HER IS USUALLY THE PTS DELIVERY MGR BUT HE IS CURRENTLY IN THE HOSPITAL SO SHE WILL BE PROVIDING PTS CARE PER DISCUSSION, BLS TRANSPORT WILL BE BOOKED FOR 1400 HOURS VIA [facility]
--- NOTE | 2024-09-12 11:47 | PM.DS ---
DS: Providers Provider Date of Service: 09/12/24 Date of admission: 09/09/24 23:38 Date of discharge: 09/12/24 Primary care physician: Ebenezer Leslie MD DS: Diagnosis Discharge Diagnosis (1) Urinary tract infection: Status: Acute (2) Sepsis: Status: Acute (3) Acute hypokalemia: Status: Acute DS: Summary Hospital Course Hospital Course: Admission note HPI 39 yo male hx of neuromyelitis optica spectrum disorder with neurogenic bladder and chronic suprapubic catheter, bed bound, recurent uti here complaining of no drainage from suprapubic catheter over 24 hours and sob. Also have not bee feeling well and has had fevers. Additionally, he is reporting feeling feeling like when he drinks anything it goes down the wrong pipe however, he has no problem with eating solids. He had a fever or 103, HR 150 initially, WBC of 18K, and positive UA. He is giving cefepime for UTI; he has history of e.coli, proteus and pseudomonas in urine. HR and temperature have normalized with ivf and antibiotics and he reports now feeling good. Hospital course He was admitted for treatment of Severe sepsis d/t UTI with reported recent U.Cx growing censitive Proteus, was on ceftin at home. placed on Cefepime with good response as sepsis resolved. 1 set blood culture reporting GPR (clostridium) which is likely contaminent in this contest. To be discharged on 5 more days of Cefpodoxime. Acute hypokalemia, resolved after giving replacement. Dysphagia. reported dysphagia to liquid. BEATER ROOM SUPERVISOR evaluated the patient and recommended NDD3 with nectar thick liquids Malfunction suprapubic cather. changed recently. seems to be draining well. to monitor. Discharge plan Take Cefpodoxime for 5 more days make sure catheter draining well Time Attestation Discharge Coordination Time (in mins): 41 Quality: Safe Use of Opioids Does Pt have an Active Cancer Diagnosis on the Problem List?: No Quality: Stroke Does the patient have a stroke diagnosis?: No Physical Exam Vital Signs: Vital Signs: Last Vital Signs Temp 97.1 F 09/12/24 08:10 Pulse 82 09/12/24 08:10 Resp 18 09/12/24 08:10 BP 125/79 09/12/24 08:10 Pulse Ox 97 09/12/24 08:10 O2 Del Method Room Air 09/12/24 08:10 BMI result Body Mass Index 31.5 Const: Other: Constitutional : interactive, not in distress Cardiovascular : no JVP, no lower extremity edema Respiratory : bilateral chest movement, not in resp distress Gastrointestinal: soft, lax, Non tender Skin : Warm, Dry Urology: Suprapubic in place Neurological : Alert & oriented , bedbound , truncal and extremity weakness DS: Data Data Completed and Pending Completed studies during hospitalization [Text1]: Procedures Drainage of Bladder with Drainage Device, Percutaneous Endoscopic Approach (10/20/23) Introduction of Vasopressor into Peripheral Vein, Percutaneous Approach (04/05/23) Labs on day of discharge: Laboratory Results - last 24 hr 09/12/24 06:07 WBC 9.3 RBC 4.29 L Hgb 10.9 L Hct 33.6 L MCV 78.3 L MCH 25.4 L MCHC 32.4 RDW 14.7 Plt Count 171 MPV 13.2 H Absolute Nucleated RBC 0.000 Nucleated RBC % (auto) 0.0 Sodium 142 Potassium 3.2 L Chloride 104 Carbon Dioxide 28 Anion Gap 13 BUN 3 L Creatinine 0.58 Estim Creat Clear Calc 194.1 Estimated GFR > 60 Random Glucose 85 Calcium 8.6 Preliminary micro results at discharge 09/09/24 18:49 Blood Culture - Preliminary Blood - Venous No growth after 48 hours. 09/09/24 18:45 Blood Culture - Preliminary Blood - Venous Prelim: GPR Gram Stain only Imaging Chest x-ray: Radiologist's impression: ITS Impressions Chest X-Ray 09/09/24 19:15 IMPRESSION: Mild bronchial wall thickening with streaky opacities suggesting small airways disease. No consolidation. Electronically signed by: Kingsley Omer MD 09/09/2024 07:50 PM EST Discharge Plan Discharge Anticipated Discharge Date/Time: 09/11/24 11:45 Patient Disposition: Home Health Service Discharge Diagnosis: UTI Referrals: [facility] [Outside] Name,MD Ebenezer [Primary Care Provider] - 1 Week Discharge Medications: New cefpodoxime 100 mg tablet 100 mg PO BID Qty: 10 0RF Rx Instructions: must administer with a meal/food Continued (DME) syringe disposable, irrigation 60 mL syringe See Rx Instructions .Route Qty: 2 5RF Rx Instructions: As directed 2 per month ascorbic acid (vitamin C) [Vitamin C] 500 mg tablet 500 mg PO BID 90 Days Qty: 180 1RF (DME) Villatoro Catheter Tray Tray See Rx Instructions .Route Qty: 2 5RF Rx Instructions: As directed 2 per month (DME) Bardia Urinary Drainage Bag Misc See Rx Instructions .Route Qty: 2 5RF Rx Instructions: As directed, 2 per month (DME) Urinary Leg Bag Misc See Rx Instructions .Route Qty: 4 5RF Rx Instructions: As directed, 4 per month. (DME) Villatoro Catheter 20 Fr misc See Rx Instructions .Route Qty: 2 5RF Rx Instructions: As directed, 2 per month. water for irrigation, sterile [Eagle-i Musicity Sterile Water] Solution 1 irrig irrigation DAILY Qty: 9000 12RF cholecalciferol (vitamin D3) 50 mcg (2,000 unit) capsule 1 cap PO DAILY multivitamin Tablet 1 tab PO DAILY sertraline 50 mg tablet 50 mg PO DAILY tizanidine 2 mg Tablet 2 mg PO Q8H PRN (Reason: Muscle Spasm) cetirizine [Zyrtec] 10 mg tablet 10 mg PO DAILY PRN (Reason: itching) Qty: 7 0RF Benadryl Allergy 50 mg tablet 50 mg PO Q8H PRN (Reason: itching) Qty: 20 0RF cyclobenzaprine 10 mg tablet 10 mg PO TID acetaminophen 500 mg tablet 500 mg PO Q6H PRN (Reason: Pain) clindamycin phosphate 1 % lotion 1 appl topical BID clotrimazole-betamethasone 1-0.05 % cream 1 appl topical BID methenamine hippurate 1 gram tablet 1 g PO BID Discontinued cefuroxime axetil 500 mg tablet 500 mg PO BID 7 Days Qty: 14 0RF Discharge Orders: Discharge Order (Routine); Ordered 09/12/24 Ordered By: Finn Holguin Diet: Advance to usual diet Activity on Discharge: As tolerated Stand Alone Forms: Patient Portal Discharge page Print Language: Persian Care Plan Goals: Take Cefpodoxime for 5 more days make sure catheter draining well Health Concerns: Urine infection Plan of Treatment: Antibiotics Assessment: as above
== END 2024-09-12 14:00 | disposition home health service (06) | DRG 698 ==
LOC: HO.ED 22:47 → HO.EDOVER 23:45 → HO.S3 09-10 07:43
PROVIDERS: Physician Assistant Medical; Admitting Provider Internal Medicine; Emergency Provider Emergency Medicine; PCP Internal Medicine Geriatric Medicine; Visit Provider Student in an Organized Health Care Education/Training Program
DX: T83.518A Infection and inflammatory reaction due to other urinary catheter, initial encounter (principal); A41.9 Sepsis, unspecified organism; R65.20 Severe sepsis without septic shock; G36.0 Neuromyelitis optica [Devic]; N39.0 Urinary tract infection, site not specified; R13.10 Dysphagia, unspecified; N31.9 Neuromuscular dysfunction of bladder, unspecified; E87.6 Hypokalemia; G35 Multiple sclerosis; Z20.822 Contact with and (suspected) exposure to COVID-19; Z74.01 Bed confinement status; Z87.440 Personal history of urinary (tract) infections; Z87.891 Personal history of nicotine dependence; Z79.899 Other long term (current) drug therapy
CPT/HCPCS: 0241U; 36415; 71045; 80048; 80053; 81001; 82803; 83605; 83735; 83880; 84484; 85025; 85027; 85610; 86140; 87040; 87076; 87086; 87205; 93005; 99285; J0131; J0692; J1650; J3480; J7120

== ENCOUNTER → 2024-09-09 18:24 | Outpatient (BNV) | payer OTHER, SELFPAY | PROVIDERS: Admitting Provider Internal Medicine; Emergency Provider Emergency Medicine; PCP Internal Medicine Geriatric Medicine; Visit Provider Internal Medicine | DX: R94.31 Abnormal electrocardiogram [ECG] [EKG] (principal) | CPT/HCPCS: 93010 ==

== ENCOUNTER → 2024-09-09 23:38 | Outpatient (BNV) | payer OTHER, SELFPAY | PROVIDERS: Admitting Provider Internal Medicine; Emergency Provider Emergency Medicine; PCP Internal Medicine Geriatric Medicine; Visit Provider Student in an Organized Health Care Education/Training Program | DX: A41.9 Sepsis, unspecified organism (principal); N39.0 Urinary tract infection, site not specified; E87.6 Hypokalemia | CPT/HCPCS: 99232; 99239 ==

== ENCOUNTER 2024-09-18 12:11 | Emergency (ER) | payer OTHER, SELFPAY ==
[2024-09-18 12:22] VITALS: BP 120/82; PULSE 100; O2SAT 98
[2024-09-18 12:23] VITALS: BP 113/72; PULSE 98; RESP 18; TEMP 36.6; O2SAT 96; BMI 32.2
--- NOTE | 2024-09-18 12:33 | PC.NURSE ---
pt a&ox3, vss, pt suprapubic cath patient/draining cloudy yellow urine with sediment noted, pt on abx for uti. no c/o pain or discomfort, call villar within reach, will continue to monitor
--- NOTE | 2024-09-18 12:55 | ED.MALEGU ---
HPI - Male Genitourinary General Chief complaint: Urogenital-Male Stated complaint: CLOGGED CATHETER Time Seen by Provider: 09/18/24 12:41 Source: patient and EMS Mode of arrival: EMS Limitations: other (Poor historian) History of Present Illness ED Provider: ADELINA Patel HPI Narrative: This is a 39-year-old male history of multiple sclerosis, frequent UTIs presenting with clogged suprapubic catheter ongoing for the past day or so. He is currently on antibiotics for UTI, he still has a few more days left. He denies burning, fevers, chills, abdominal pain, flank pain, headache, vision changes, dizziness, weakness. He tells me he feels fine he is just concerned that his catheter may be clogged. Related Data Home Medications ?Medication ?Instructions ?Recorded ?Confirmed cholecalciferol (vitamin D3) 50 1 cap PO DAILY 09/18/21 09/10/24 mcg (2,000 unit) capsule multivitamin 1 tab PO DAILY 08/20/22 09/10/24 sertraline 50 mg tablet 50 mg PO DAILY 02/22/24 09/10/24 tizanidine 2 mg tablet 2 mg PO Q8H PRN Muscle Spasm 02/22/24 09/10/24 acetaminophen 500 mg tablet 500 mg PO Q6H PRN Pain 09/10/24 09/10/24 clindamycin phosphate 1 % lotion 1 appl topical BID 09/10/24 09/10/24 clotrimazole-betamethasone 1 1 appl topical BID 09/10/24 09/10/24 %-0.05 % topical cream cyclobenzaprine 10 mg tablet 10 mg PO TID 09/10/24 09/10/24 methenamine hippurate 1 gram tablet 1 g PO BID 09/10/24 09/10/24 Previous Rx's ?Medication ?Instructions ?Recorded syringe disposable, irrigation 60 #2 ea 01/06/24 mL ascorbic acid (vitamin C) 500 mg 500 mg PO BID 90 days #180 tabs 05/12/24 tablet (Vitamin C) cetirizine 10 mg tablet (Zyrtec) 10 mg PO DAILY PRN itching #7 tabs 08/17/24 diphenhydramine HCl 50 mg tablet 50 mg PO Q8H PRN itching #20 tabs 08/17/24 (Benadryl Allergy) catheter 20 Fr (Villatoro Catheter) #2 ea 08/19/24 catheterization tray (Villatoro #2 ea 08/19/24 Catheter Tray) urinary bag (Bardia Urinary #2 ea 08/19/24 Drainage Bag) urinary bag (Urinary Leg Bag) #4 ea 08/19/24 water for irrigation, sterile 1 irrig irrigation DAILY #9,000 mL 08/19/24 (Curity Sterile Water irrigation solution) cefpodoxime 100 mg tablet 100 mg PO BID #10 tabs 09/12/24 Allergies Allergy/AdvReac Type Severity Reaction Status Date / Time doxycycline Allergy Rash Verified 09/18/24 12:24 Review of Systems Review of Systems: Yes all other systems are reviewed and are negative PMFSH Past Medical History Attestation statement: The following information was validated with the patient. 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) Unable to assess alcohol history related to: Unknown Alcohol intake: never Patient Tobacco Use Status: Former Tobacco user Tobacco use type: Cigarette Cigarettes Per Day: 0.25 Smoked in Last 30 Days: No Use of substances other than those prescribed or required for medical reasons: No Substance Use Type: Marijuana Advance Directives: Yes Advance Directives on File: Yes Advance Directives Date on File: 08/21/22 Do you have a plan to hurt others: No Plan service: No Current occupational status: disabled Physical Exam Vital Signs: Vital Signs: Last Vital Signs Temp 97.9 F 09/18/24 12:23 Pulse 98 09/18/24 12:23 Resp 18 09/18/24 12:23 BP 113/72 09/18/24 12:23 Pulse Ox 96 09/18/24 12:23 O2 Del Method Room Air 09/18/24 12:23 BMI result Body Mass Index 32.2 vss Appearance: Alert.? Oriented X3.? No acute distress.? Head: Normocephalic, atraumatic, no step-offs or deformities Eyes: Pupils equal, round and reactive to light.? CVS: Normal heart rate and rhythm.? Pulses normal.? Respiratory: No respiratory distress.? Breath sounds normal.? Abdomen: Soft and nontender.? Suprapubic catheter in place no erythema or warmth surrounding. Catheter appears to be draining. Skin: Skin warm and dry.? Normal skin color.? Normal skin turgor.? Extremities: No lower extremity edema.? No calf ttp. 5/5 strength to bilateral upper and lower extremities Back: No midline tenderness, no C-spine tenderness, full range of motion, no CVA tenderness bilaterally Neuro: Oriented X 3.? No motor deficit.? No sensory deficit. CN 2-12 intact Course Reevaluation(s) Reevaluation #1: Again rechecked his suprapubic catheter draining cloudy yellow supplemented urine. Patient not complaining of pain. Plan is for discharge home with urology follow-up. Time: 13:53 Medical Decision Making Medical Decision Making [facility] Narrative: 39-year-old male presents to the emergency department via ambulance with concerns that his suprapubic catheter is clogged. On exam no tenderness to abdomen suprapubic catheter in place and appears to be well draining. There is some sediment. History and physical exam concerning for UTI with sediment versus cystitis. He is currently on antibiotics. No signs of acute abdomen, pyelonephritis, systemic illness. Plan will discharge patient home will obtain and send a urine for analysis. He can continue his current antibiotic regimen. Differential Diagnosis Differential Diagnoses: The differential diagnosis associated with the presentation includes (History and physical exam concerning for UTI with sediment versus cystitis. He is currently on antibiotics. No signs of acute abdomen, pyelonephritis, systemic illness.) Admission/Observation Consideration of admission/observation: Escalation of care including admission/observation considered Lab Data [facility] Lab Attestation statement: I reviewed the patient's lab results. External Record Review External record reviewed: Inpatient record, Office record, Outpatient record, Prior outpatient labs, Prior outpatient radiology, Primary care record and Outside ED record Chronic Conditions Patient?s care impacted by: Other (See HPI see HPI) Discharge Plan Discharge Clinical Impression: Urinary tract infection, Blocked suprapubic catheter Patient Disposition: Home, Self-Care Instructions: Urinary Tract Infection in Men (ED) Additional Instructions: Take your medications as prescribed. If you were prescribed antibiotics today, it is important that you take your medication to their entirety, do not skip any doses, do not finish them early. Follow-up with your primary care provider this week. Return to the emergency department with new or worsening symptoms. Such as fevers, chills, chest pain, shortness of breath, nausea, vomiting, dizziness, headache, vision changes, lethargy In case of emergency call 911 Prescriptions: No Action (DME) syringe disposable, irrigation 60 mL syringe See Rx Instructions .Route Qty: 2 5RF Rx Instructions: As directed 2 per month ascorbic acid (vitamin C) [Vitamin C] 500 mg tablet 500 mg PO BID 90 Days Qty: 180 1RF (DME) Villatoro Catheter Tray Tray See Rx Instructions .Route Qty: 2 5RF Rx Instructions: As directed 2 per month (DME) Bardia Urinary Drainage Bag Misc See Rx Instructions .Route Qty: 2 5RF Rx Instructions: As directed, 2 per month (DME) Urinary Leg Bag Misc See Rx Instructions .Route Qty: 4 5RF Rx Instructions: As directed, 4 per month. (DME) Villatoro Catheter 20 Fr misc See Rx Instructions .Route Qty: 2 5RF Rx Instructions: As directed, 2 per month. water for irrigation, sterile [[employer]PNR Sterile Water] Solution 1 irrig irrigation DAILY Qty: 9000 12RF cholecalciferol (vitamin D3) 50 mcg (2,000 unit) capsule 1 cap PO DAILY multivitamin Tablet 1 tab PO DAILY sertraline 50 mg tablet 50 mg PO DAILY tizanidine 2 mg Tablet 2 mg PO Q8H PRN (Reason: Muscle Spasm) cetirizine [Zyrtec] 10 mg tablet 10 mg PO DAILY PRN (Reason: itching) Qty: 7 0RF Benadryl Allergy 50 mg tablet 50 mg PO Q8H PRN (Reason: itching) Qty: 20 0RF cyclobenzaprine 10 mg tablet 10 mg PO TID acetaminophen 500 mg tablet 500 mg PO Q6H PRN (Reason: Pain) clindamycin phosphate 1 % lotion 1 appl topical BID clotrimazole-betamethasone 1-0.05 % cream 1 appl topical BID methenamine hippurate 1 gram tablet 1 g PO BID cefpodoxime 100 mg tablet 100 mg PO BID Qty: 10 0RF Rx Instructions: must administer with a meal/food Referrals: [facility] [place] Urology Services [Provider Group] - 2 days ED Physician,Generic [Physician] - 2 days Print Language: Yi
[2024-09-18 13:46] LABS: Appearance Urine Turbid; Color Urine Yellow; Glucose Urine UA Negative (Negative); Leukocyte Esterase Urine Moderate (2+) (Negative); Nitrite Urine Negative (Negative); PH 5.5 (5.0-9.0); Specific Gravity - Urine 1.025 (1.005-1.025); UMIC TRIGGER UACC YES; Urine Blood Large (3+) (Negative); Urine Ketones Trace mg/dL (Negative); Urine Protein 300 (3+) mg/dL (Neg-Trace)
[2024-09-18 13:54] LABS: Bacteria Urine 1+ (None Seen); Hyaline Casts Urine 0-2 /LPF (0-2); RBC Urine >20 /HPF (0-2); UACC Culture Trigger YES; WBC Urine >50 /HPF (0-5)
--- NOTE | 2024-09-18 14:08 | PC.NURSE ---
bladder scan obtained, provider notified
[2024-09-18 14:48] VITALS: BP 115/68; PULSE 96; RESP 18; TEMP 36.7; O2SAT 96
--- OUTSIDE RECORDS SUMMARY | 2024-09-22 11:49 | XMS_ITS ---
Author Name [facility] Organization Unknown History of Medication Use Medication Directions Dispensed Refills Start Date End Date Status diphenhydrAMINE (BENADRYL) injection 50 mg 50 mg, Intravenous, Once, On Fri08/03/24 at 0830, For 1 doseGive 30 minutes prior to rituximab-abbs. IV push over 2-3 minutes.??See PO diphenhydramine order. Please give PO or IV.??Common Side Effects: Drowsiness, stomach upset, confusion, dry mouth??Administer undiluted. Maximum rate 25 mg/min. 4 999 completed methylPREDNISolone sodium succinate (SOLU-Medrol) injection 125 mg 125 mg, Intravenous, Once, On Fri08/03/24 at 0830, For 1 doseAdminister 30 minutes prior to rituximab-abbs. ??Administer over 2-3 minutes 4 999 completed acetaminophen (TYLENOL) tablet 975 mg 975 mg, Oral, Once, On Fri08/03/24 at 0830, For 1 doseAdminister 30 minutes prior to rituximab-abbs. 4 999 completed sodium chloride 0.9% (NS) infusion 500 mL, Intravenous, Once, On Fri08/03/24 at 0830, For 1 doseAdminister at 999 mL/hr. 4 999 completed sertraline (ZOLOFT) 50 MG tablet 4 active vitamin C (ASCORBIC ACID) 500 MG tablet Take 2 tablets (1,000 mg total) by mouth. 4 active methylPREDNISolone sodium succinate (SOLU-Medrol) 1,000 mg in sodium chloride (NS) 0.9 % 100 mL IVPB 1,000 mg, Intravenous, Administer over 30 Minutes, Once, On Fri06/15/24 at 0930, For 1 dose 4 completed cefuroxime (CEFTIN) 250 MG tablet Take 1 tablet (250 mg total) by mouth 2 (two) times a day. for 7 days 4 active tiZANidine (ZANAFLEX) 2 MG tablet TAKE 1 TABLET BY MOUTH EVERY 8 HOURS NEEDED FOR MUSCLE SPASMS 4 active nitrofurantoin, macrocrystal-monohydra te, (MACROBID) 100 MG capsule TAKE 1 CAPSULE BY MOUTH TWICE A DAY FOR 7 DAYS. TAKE WITH FOOD. 4 active predniSONE (DELTASONE) tablet 20 mg TAKE 1 TABLET BY MOUTH EVERY DAY 4 active D3 Super Strength 50 MCG (2000 UT) CAPS Take 1 capsule by mouth daily. 4 active levoFLOXacin (LEVAQUIN) 750 MG tablet Take 1 tablet (750 mg total) by mouth daily. 4 active Acetaminophen Extra Strength 500 MG tablet TAKE 1 TABLET BY MOUTH EVERY 6 HOURS NEEDED FOR MILD PAIN 4 active Converse-3 Fatty Acids (Fish Oil) 1000 MG CAPS Take 1 capsule by mouth daily. 4 active LORazepam (ATIVAN) 0.5 MG tablet 1 p.o. 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
== END 2024-09-18 15:11 | disposition home or self-care (01) ==
PROVIDERS: Physician Assistant; Emergency Provider Emergency Medicine Emergency Medical Services; PCP Internal Medicine Geriatric Medicine
DX: N39.0 Urinary tract infection, site not specified (principal); Z96.0 Presence of urogenital implants; G35 Multiple sclerosis; Z79.899 Other long term (current) drug therapy; Z87.440 Personal history of urinary (tract) infections
CPT/HCPCS: 51798; 81001; 87086; 87088; 87186; 99284

== ENCOUNTER 2024-10-03 16:05 | Observation (INO) | payer OTHER, SELFPAY ==
--- NOTE | 2024-10-03 16:18 | ED_ITS ---
HPI - General Adult General Chief complaint: Urogenital-Male Stated complaint: INFECTED CATHETER Time Seen by Provider: 10/03/24 16:17 Source: patient and EMS Mode of arrival: EMS Limitations: other (poor historian ) History of Present Illness ED Provider: ADELINA Patel HPI narrative: 39-year-old male history of multiple sclerosis, frequent UTIs presenting with concerns of UTI and for concerns that suprapubic cath site may be infected. His nurse accidentally took it out today. He was recently on antibiotics for UTI. He denies burning, fevers, chills, abdominal pain, flank pain, headache, vision changes, dizziness, weakness. Related Data Home Medications ?Medication ?Instructions ?Recorded ?Confirmed cholecalciferol (vitamin D3) 50 1 cap PO DAILY 09/18/21 09/10/24 mcg (2,000 unit) capsule multivitamin 1 tab PO DAILY 08/20/22 09/10/24 sertraline 50 mg tablet 50 mg PO DAILY 02/22/24 09/10/24 tizanidine 2 mg tablet 2 mg PO Q8H PRN Muscle Spasm 02/22/24 09/10/24 acetaminophen 500 mg tablet 500 mg PO Q6H PRN Pain 09/10/24 09/10/24 clindamycin phosphate 1 % lotion 1 appl topical BID 09/10/24 09/10/24 clotrimazole-betamethasone 1 1 appl topical BID 09/10/24 09/10/24 %-0.05 % topical cream cyclobenzaprine 10 mg tablet 10 mg PO TID 09/10/24 09/10/24 methenamine hippurate 1 gram tablet 1 g PO BID 09/10/24 09/10/24 Previous Rx's ?Medication ?Instructions ?Recorded syringe disposable, irrigation 60 #2 ea 01/06/24 mL ascorbic acid (vitamin C) 500 mg 500 mg PO BID 90 days #180 tabs 05/12/24 tablet (Vitamin C) cetirizine 10 mg tablet (Zyrtec) 10 mg PO DAILY PRN itching #7 tabs 08/17/24 diphenhydramine HCl 50 mg tablet 50 mg PO Q8H PRN itching #20 tabs 08/17/24 (Benadryl Allergy) catheter 20 Fr (Villatoro Catheter) #2 ea 08/19/24 catheterization tray (Villatoro #2 ea 08/19/24 Catheter Tray) urinary bag (Bardia Urinary #2 ea 08/19/24 Drainage Bag) urinary bag (Urinary Leg Bag) #4 ea 08/19/24 water for irrigation, sterile 1 irrig irrigation DAILY #9,000 mL 08/19/24 (Curity Sterile Water irrigation solution) cefpodoxime 100 mg tablet 100 mg PO BID #10 tabs 09/12/24 cefdinir 300 mg capsule 300 mg PO BID 5 days #10 caps 10/03/24 levofloxacin 750 mg tablet 750 mg PO DAILY 7 days #7 tabs 10/03/24 Allergies Allergy/AdvReac Type Severity Reaction Status Date / Time doxycycline Allergy Rash Verified 09/18/24 12:24 Review of Systems 2 Review of Systems: Yes all other systems are reviewed and are negative [facility] Past Medical History Medical History 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 Microcytic anemia Multiple sclerosis Headache Surgical History H/O hernia repair Family History Family History Other No family history of coronary artery disease Social History Social History Household Members: Other Household Members Other:: parents Housing: Apartment 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 have visiting nurse or other home services: Yes (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 Oriented X3.? No acute distress.? Head: Normocephalic, atraumatic, no step-offs or deformities Eyes: Pupils equal, round and reactive to light.? CVS: Normal heart rate and rhythm.? Pulses normal.? Respiratory: No respiratory distress.? Breath sounds normal.? Abdomen: Soft and nontender.? Skin: Skin warm and dry.? Normal skin color.? Normal skin turgor.? + erythema, edema, scant purulence and blood noted where suprapubic catheter was. Extremities: No lower extremity edema.? No calf ttp. global weakness Neuro: Oriented X 3.? No motor deficit.? No sensory deficit. CN 2-12 intact Course Reevaluation(s) Reevaluation #1: I attempted suprapubic catheterization myself, another colleague and Dr. Fischer no succcess. There is significant erythema and edema surrounding. Time: 19:47 Reevaluation #2: Will give Zosyn obtain blood cultures, lactic acid and admit patient into the hospital. Urology aware. They recommend placing a Villatoro catheter per penis. Time: 19:48 Medical Decision Making Medical Decision Making [facility] Narrative: 39-year-old male presents to the emergency department with concerns of infected suprapubic cath and UTI On exam no tenderness to abdomen however area where suprapubic cath was is erythematous, warm and has some scant bleeding and discharge. History and physical exam concerning for UTI with sediment versus cystitis. I am also concerned for localized infection to area where suprapubic catheterization was. No signs of acute abdomen, pyelonephritis, systemic illness. Plan basic labs, imaging Differential Diagnosis Differential Diagnoses: The differential diagnosis associated with the presentation includes (History and physical exam concerning for UTI with sediment versus cystitis. I am also concerned for localized infection to area where suprapubic catheterization was. No signs of acute abdomen, pyelonephritis, systemic illness.) Admission/Observation Consideration of admission/observation: Escalation of care including admission/observation considered (unlikely ) Lab Data [facility] Lab Attestation statement: I reviewed the patient's lab results. 10/03/24 16:58 10/03/24 16:58 Labs: Lab Results 10/03/24 Range/Units 16:58 WBC 8.0 (4.8-10.8) X10*3/uL RBC 5.22 D (4.60-5.80) X10*6/uL Hgb 13.0 L (14.0-18.0) g/dl Hct 41.1 L D (42.0-52.0) % MCV 78.7 L (80.0-98.0) fL MCH 24.9 L (27.0-33.0) pg MCHC 31.6 (31.0-36.0) g/dl RDW 15.1 (11.0-16.0) % Plt Count 189 (160-400) X10*3/uL MPV 12.6 H (9.4-12.4) fL Immature Gran % (Auto) 0.6 H (0.0-0.4) % Neut % (Auto) 65.8 (45-73) % Lymph % (Auto) 15.8 L (20-40) % Labette % (Auto) 15.0 H (2-11) % Eos % (Auto) 2.4 (0-4) % Baso % (Auto) 0.4 (0-2) % Lymph # (Auto) 1.3 (1.2-4.9) X10*3/uL Labette # (Auto) 1.2 (0.1-1.2) X10*3/uL Eos # (Auto) 0.2 (0.0-0.4) X10*3/uL Baso # (Auto) 0.0 (0.0-0.2) X10*3/uL Abs Immat Gran (auto) 0.05 H (0.00-0.03) X10*3/uL Absolute Neuts (auto) 5.3 (2.0-8.3) x10*3/uL Absolute Nucleated RBC 0.000 (0.0-0.012) X10*3/uL Nucleated RBC % (auto) 0.0 (0.0-0.2) /100WBC Smear Tech's Comments VERIFIED Sodium 137 (135-145) mmol/L Potassium 3.7 (3.3-5.1) mmol/L Chloride 104 (96-108) mmol/L Carbon Dioxide 23 (22-29) mmol/L Anion Gap 14 (12-20) BUN 9 (9-16) mg/dL Creatinine 0.63 (0.5-1.4) mg/dL Estim Creat Clear Calc TNP Estimated GFR > 60 Random Glucose 102 (60-115) mg/dL Calcium 9.1 (8.4-10.2) mg/dL Magnesium 2.2 (1.6-2.6) mg/dL Total Bilirubin 0.3 (0.0-1.0) mg/dL AST 22 (5-37) U/L ALT 17 (0-40) U/L Alkaline Phosphatase 60 (39-117) U/L Total Protein 7.4 (6.5-8.0) g/dL Albumin 3.8 (3.5-5.0) g/dL External Record Review External record reviewed: Inpatient record, Office record, Outpatient record, Prior outpatient labs, Prior outpatient radiology, Primary care record and Outside ED record Prescription Management I considered prescription management with: Antibiotic Chronic Conditions Patient?s care impacted by: Other (see hpi ) Critical Care Time Critical Care Time Critical Care Time: Yes Total Critical Care Time: 35 Attestation: I attest to this time spent taking care of the patient, obtaining history, physical, reviewing labs, imaging, treatment of patients condition +/- specialist/hospitalist consult Discharge Plan Discharge Clinical Impression: Urinary tract infection, Suprapubic catheter dysfunction, Cellulitis Patient Disposition: Admitted As Inpatient Instructions: Urinary Tract Infection in Men (ED), Cellulitis (ED) Additional Instructions: Take your medications as prescribed. If you were prescribed antibiotics today, it is important that you take your medication to their entirety, do not skip any doses, do not finish them early. Follow-up with your primary care provider this week. Return to the emergency department with new or worsening symptoms. Such as fevers, chills, chest pain, shortness of breath, nausea, vomiting, dizziness, headache, vision changes, lethargy In case of emergency call 911 Prescriptions: New levofloxacin 750 mg tablet 750 mg PO DAILY 7 Days Qty: 7 0RF cefdinir 300 mg capsule 300 mg PO BID 5 Days Qty: 10 0RF No Action (DME) syringe disposable, irrigation 60 mL syringe See Rx Instructions .Route Qty: 2 5RF Rx Instructions: As directed 2 per month ascorbic acid (vitamin C) [Vitamin C] 500 mg tablet 500 mg PO BID 90 Days Qty: 180 1RF (DME) Villatoro Catheter Tray Tray See Rx Instructions .Route Qty: 2 5RF Rx Instructions: As directed 2 per month (DME) Bardia Urinary Drainage Bag Misc See Rx Instructions .Route Qty: 2 5RF Rx Instructions: As directed, 2 per month (DME) Urinary Leg Bag Misc See Rx Instructions .Route Qty: 4 5RF Rx Instructions: As directed, 4 per month. (DME) Villatoro Catheter 20 Fr [facility] See Rx Instructions .Route Qty: 2 5RF Rx Instructions: As directed, 2 per month. water for irrigation, sterile [Curity Sterile Water] Solution 1 irrig irrigation DAILY Qty: 9000 12RF cholecalciferol (vitamin D3) 50 mcg (2,000 unit) capsule 1 cap PO DAILY multivitamin Tablet 1 tab PO DAILY sertraline 50 mg tablet 50 mg PO DAILY tizanidine 2 mg Tablet 2 mg PO Q8H PRN (Reason: Muscle Spasm) cetirizine [Zyrtec] 10 mg tablet 10 mg PO DAILY PRN (Reason: itching) Qty: 7 0RF Benadryl Allergy 50 mg tablet 50 mg PO Q8H PRN (Reason: itching) Qty: 20 0RF cyclobenzaprine 10 mg tablet 10 mg PO TID acetaminophen 500 mg tablet 500 mg PO Q6H PRN (Reason: Pain) clindamycin phosphate 1 % lotion 1 appl topical BID clotrimazole-betamethasone 1-0.05 % cream 1 appl topical BID methenamine hippurate 1 gram tablet 1 g PO BID cefpodoxime 100 mg tablet 100 mg PO BID Qty: 10 0RF Rx Instructions: must administer with a meal/food Referrals: [facility] [place] [facility] [Provider Group] - 2 days Stand Alone Forms: Work/School Release Print Language: Amharic
[2024-10-03 16:21] VITALS: BP 116/60; PULSE 100; O2SAT 100
[2024-10-03 17:11] LABS: Basophils Percent Auto 0.4 % (0-2); Eosinophils Absolute Auto 0.2 X10*3/uL (0.0-0.4); Eosinophils Percent Auto 2.4 % (0-4); Hematocrit 41.1 % (42.0-52.0); Imm Gran Abs Auto 0.05 X10*3/uL (0.00-0.03); Imm Gran Pct Auto 0.6 % (0.0-0.4); Lymphocytes Absolute Auto 1.3 X10*3/uL (1.2-4.9); Lymphocytes Percent Auto 15.8 % (20-40); MANUAL DIFF FLAG SCAN; Mean Corpuscular HGB Conc 31.6 g/dl (31.0-36.0); Mean Corpuscular Hemoglobin 24.9 pg (27.0-33.0); Mean Corpuscular Volume 78.7 fL (80.0-98.0); Monocytes Absolute Auto 1.2 X10*3/uL (0.1-1.2); Neutrophils Absolute Auto 5.3 x10*3/uL (2.0-8.3); Neutrophils Percent Auto 65.8 % (45-73); PLT CLUMP 1; Red Blood Count 5.22 X10*6/uL (4.60-5.80); Red Cell Distribution Width 15.1 % (11.0-16.0); SCAN SMEAR FLAG 1
[2024-10-03 17:16] LABS: Alanine Aminotransferase 17 U/L (0-40); Albumin Level 3.8 g/dL (3.5-5.0); Alkaline Phosphatase 60 U/L (39-117); Anion Gap 14 (12-20); Aspartate Amino Transferase 22 U/L (5-37); Bilirubin Total 0.3 mg/dL (0.0-1.0); Blood Urea Nitrogen 9 mg/dL (9-16); Calcium 9.1 mg/dL (8.4-10.2); Carbon Dioxide 23 mmol/L (22-29); Chloride 104 mmol/L (96-108); Estimated Glomerular Filt Rate > 60; Glucose Random 102 mg/dL (60-115); Magnesium 2.2 mg/dL (1.6-2.6); Potassium 3.7 mmol/L (3.3-5.1); Sodium 137 mmol/L (135-145); Total Protein 7.4 g/dL (6.5-8.0)
[2024-10-03 17:51] LABS: Mean Platelet Volume 12.6 fL (9.4-12.4); Platelet Count 189 X10*3/uL (160-400); SLIDE REVIEW VERIFIED
[2024-10-03 18:00] VITALS: BP 130/90; PULSE 77; RESP 20; TEMP 37.1; O2SAT 100
[2024-10-03 20:58] LABS: Lactic Acid 1.4 mmol/L (0.5-2.0)
[2024-10-03 21:25] VITALS: BP 131/84; PULSE 94; RESP 14; TEMP 37; O2SAT 98
--- NOTE | 2024-10-03 21:34 | PM.IMHP ---
History of Present Illness Date of Service: 10/03/24 Attending physician on admission: Deepali Nagel Chief Complaint: Unable to replace suprapubic catheter Pt is a 39-year-old male with a PMH significant for neuromyelitis optica spectrum disorder, neurogenic bladder with chronic suprapubic catheter in place, bed-bound at baseline, and hx of recurrent UTI?who presents to the ED after VNA accidentally removed patient has suprapubic catheter during routine catheter care and was unable to replace it. Nurse apparently also reported urine has been foul-smelling lately and was concerned of another possible UTI. Patient was recently on antibiotics for recurrent UTI. Patient seen and evaluated at bedside where he is resting comfortably in bed. Patient complains of chronic lower back pain and numbness and tingling in back and legs, but has no acute medical complaints. Denies fever or chills. No abdominal or pelvic pain. Denies chest pain/pressure, palpitations. No nausea, vomiting, or diarrhea. Denies shortness or breath or difficulty breathing. Of note, ED physicians were unable to replace suprapubic catheter, and nursing was unable to place Villatoro catheter despite multiple attempts. In the ED pt had elevated HR of 94, vitals otherwise stable and WNL. Labs were grossly unremarkable and baseline for patient. No leukocytosis. Stable microcytic anemia of 30.0/41.1. No electrolyte abnormalities. Renal function baseline. Hepatic function WNL. Lactic acid WNL 1.4. Pt was treated with Zosyn. Pt will be admitted to the hospital under observation while awaiting suprapubic catheter replacement by Urology in the morning. 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) Unable to assess alcohol history related to: Unknown Alcohol intake: never Patient Tobacco Use Status: Former Tobacco user Tobacco use type: Cigarette Cigarettes Per Day: 0.25 Smoked in Last 30 Days: No Use of substances other than those prescribed or required for medical reasons: No Substance Use Type: Marijuana Advance Directives: Yes Advance Directives on File: Yes Advance Directives Date on File: 08/21/22 service: No Current occupational status: disabled Meds Allergies Allergy/AdvReac Type Severity Reaction Status Date / Time doxycycline Allergy Rash Verified 09/18/24 12:24 Active Medications: Current Medications Acetaminophen (Acetaminophen 325 Mg Tablet) 650 mg PO Q6H PRN PRN Reason: Pain, Mild (Pain Scale 1-3), fever or headache Calcium Carbonate (Calcium Carbonate 750 Mg Tab.Chew) 750 mg PO Q4H PRN PRN Reason: Heartburn Enoxaparin Sodium (Enoxaparin Sodium 40 Mg/0.4 Ml Syringe) 40 mg SUBCUT Q24H LALO Magnesium Hydroxide (Milk Of Magnesia 30 Ml Oral.Susp) 30 ml PO DAILY PRN PRN Reason: Constipation Melatonin (Melatonin 3 Mg Tablet) 6 mg PO BEDTIME PRN PRN Reason: Insomnia Ondansetron HCl (Ondansetron Hcl 4 Mg/2 Ml Vial) 4 mg IVPUSH Q8H PRN PRN Reason: Nausea and Vomiting Sodium Chloride (0.9 % Sodium Chloride Flush 3 Ml Syringe) [facility] Medications ?Medication ?Instructions ?Recorded ?Confirmed ?Last Taken ?Type cholecalciferol (vitamin D3) 50 1 cap PO DAILY 09/18/21 09/10/24 02/20/24 History mcg (2,000 unit) capsule multivitamin 1 tab PO DAILY 08/20/22 09/10/24 02/20/24 History sertraline 50 mg tablet 50 mg PO DAILY 02/22/24 09/10/24 02/20/24 History tizanidine 2 mg tablet 2 mg PO Q8H PRN Muscle Spasm 02/22/24 09/10/24 Unknown History acetaminophen 500 mg tablet 500 mg PO Q6H PRN Pain 09/10/24 09/10/24 Unknown History clindamycin phosphate 1 % lotion 1 appl topical BID 09/10/24 09/10/24 Unknown History clotrimazole-betamethasone 1 1 appl topical BID 09/10/24 09/10/24 Unknown History %-0.05 % topical cream cyclobenzaprine 10 mg tablet 10 mg PO TID 09/10/24 09/10/24 Unknown History methenamine hippurate 1 gram tablet 1 g PO BID 09/10/24 09/10/24 Unknown History Physical Exam Vital Signs and Narrative: Vital Signs: Last Vital Signs Temp 98.6 F 10/03/24 21:25 Pulse 94 10/03/24 21:25 Resp 14 10/03/24 21:25 BP 131/84 10/03/24 21:25 Pulse Ox 98 10/03/24 21:25 O2 Del Method Room Air 10/03/24 21:25 General: AOx3, no acute distress Resp: CTA bilaterally CVS: S1, S2, RRR GI: +BS, NT, no distention. Suprapubic catheter site with surrounding small area of erythema. No tenderness or purulent discharge noted. As pictured below Skin: Warm, dry Neuro: Cranial nerves II-XII grossly intact bilaterally. Motor grossly intact bilaterally, though with significantly reduced 1/5 bilateral lower extremity weakness Extremities: No edema Psych: Appropriate affect Results Labs 10/03/24 16:58 10/03/24 16:58 Labs: Laboratory Results - last 24 hr 10/03/24 10/03/24 16:58 20:36 MCV 78.7 L MCH 24.9 L MCHC 31.6 RDW 15.1 Plt Count 189 MPV 12.6 H Immature Gran % (Auto) 0.6 H Neut % (Auto) 65.8 Lymph % (Auto) 15.8 L [place] % (Auto) 15.0 H Eos % (Auto) 2.4 Baso % (Auto) 0.4 Lymph # (Auto) 1.3 [place] # (Auto) 1.2 Eos # (Auto) 0.2 Baso # (Auto) 0.0 Abs Immat Gran (auto) 0.05 H Absolute Neuts (auto) 5.3 Absolute Nucleated RBC 0.000 Nucleated RBC % (auto) 0.0 Smear Tech's Comments VERIFIED Anion Gap 14 Estim Creat Clear Calc TNP Estimated GFR > 60 Random Glucose 102 Lactic Acid 1.4 Calcium 9.1 Magnesium 2.2 Total Bilirubin 0.3 AST 22 ALT 17 Alkaline Phosphatase 60 Total Protein 7.4 Albumin 3.8 Assessment and Plan (1) Suprapubic catheter dysfunction: Status: Acute Plan Pt is a 39-year-old male with a PMH significant for neuromyelitis optica spectrum disorder, neurogenic bladder with chronic suprapubic catheter in place, bed-bound at baseline, and hx of recurrent UTI?who presents to the ED after VNA accidentally removed patient has suprapubic catheter during routine catheter care and was unable to replace it. Pt will be admitted to the hospital under observation while awaiting suprapubic catheter replacement by Urology in the morning. Suprapubic catheter dysfunction Removed during VNA service during routine maintenance/care Unable to be replaced by ED physician Multiple attempts at placing temporary Villatoro catheter failed in the ED Urology consult for suprapubic catheter replacement in the morning Question of UTI Unable to collect UA for analysis Patient given empiric Zosyn in the ED Will hold on additional antibiotics at this time until UA obtained by Urology in the morning No sepsis: one measure of HR>90, but no fever, tachypnea, or leukocytosis; lactic acid WNL Neuromyelitis optica spectrum disorder Continue cyclobenzaprine, tizanidine Mood disorder Continue sertraline Full Code Attending:?Dr. Nagel DVT Prophylaxis: Eunice Patient will be admitted to the hospital under observation for treatment and further evaluation of suprapubic catheter dysfunction requiring replacement by Urology. Quality Stroke Does the patient have a stroke diagnosis?: No VTE Prior VTE?: No VTE Risk Level:: Medical - moderate - high VTE Device Contraindication: Treatment Not Indicated VTE Drug Contraindication: N/A - Med Ordered
[2024-10-03] MEDS: Piperacillin Sodium/Tazobactam 3.375 GM in 0.9 % Sodium Chloride 50 ML IV (21:36)
[2024-10-03] MEDS: Enoxaparin Sodium 40 MG/0.4 ML SYRINGE SUBCUT (21:41)
--- NOTE | 2024-10-03 22:03 | PC.NURSE ---
Food and drink provided to pt as requested. All needs met.
[2024-10-03 23:49] VITALS: BP 128/80; PULSE 95; RESP 18; TEMP 36.8; O2SAT 98
[2024-10-04 02:58] VITALS: BP 109/86; PULSE 89; RESP 14; TEMP 36.9; O2SAT 98
[2024-10-04 03:04] LABS: Appearance Urine Turbid; Color Urine Yellow; Glucose Urine UA Negative (Negative); Leukocyte Esterase Urine Large (3+) (Negative); Nitrite Urine Negative (Negative); PH 5.5 (5.0-9.0); UMIC TRIGGER UACC YES; Urine Blood Large (3+) (Negative); Urine Ketones 15 mg/dL (Negative); Urine Protein 30 (1+) mg/dL (Neg-Trace)
[2024-10-04 03:12] LABS: Bacteria Urine 2+ (None Seen); Hyaline Casts Urine 0-2 /LPF (0-2); RBC Urine >20 /HPF (0-2); Squamous Epithelial Cell Urine 0-2 /HPF (0-2); UACC Culture Trigger YES; WBC Clumps Urine Present; WBC Urine >50 /HPF (0-5)
--- NOTE | 2024-10-04 03:27 | PC.NURSE ---
bladder scan approx 415 mL, succesfully straight cath'd approx 400 mL, post void residual volume of 3mL. pt states bladder pain is somewhat relieved and tolerable now but is now requesting antispasmodic.
[2024-10-04 03:59] VITALS: BP 128/65; PULSE 99; RESP 16; TEMP 36.7; O2SAT 99
[2024-10-04 04:12] VITALS: BMI 27.2
[2024-10-04 06:40] LABS: MANUAL DIFF FLAG NO
[2024-10-04 06:49] LABS: Basophils Percent Auto 0.3 % (0-2); Eosinophils Absolute Auto 0.3 X10*3/uL (0.0-0.4); Eosinophils Percent Auto 2.9 % (0-4); Hematocrit 39.4 % (42.0-52.0); Hemoglobin 12.3 g/dl (14.0-18.0); Imm Gran Abs Auto 0.05 X10*3/uL (0.00-0.03); Imm Gran Pct Auto 0.4 % (0.0-0.4); Lymphocytes Absolute Auto 1.3 X10*3/uL (1.2-4.9); Lymphocytes Percent Auto 11.6 % (20-40); Mean Corpuscular HGB Conc 31.2 g/dl (31.0-36.0); Mean Corpuscular Hemoglobin 24.4 pg (27.0-33.0); Mean Corpuscular Volume 78.2 fL (80.0-98.0); Mean Platelet Volume 12.9 fL (9.4-12.4); Monocytes Absolute Auto 1.5 X10*3/uL (0.1-1.2); Monocytes Percent Auto 12.8 % (2-11); Neutrophils Absolute Auto 8.2 x10*3/uL (2.0-8.3); Platelet Count 287 X10*3/uL (160-400); Red Blood Count 5.04 X10*6/uL (4.60-5.80); White Blood Count 11.5 X10*3/uL (4.8-10.8)
[2024-10-04 06:58] LABS: Anion Gap 16 (12-20); Blood Urea Nitrogen 11 mg/dL (9-16); Calcium 9.4 mg/dL (8.4-10.2); Carbon Dioxide 26 mmol/L (22-29); Chloride 102 mmol/L (96-108); Estimated Glomerular Filt Rate > 60; Glucose Random 85 mg/dL (60-115); Potassium 3.5 mmol/L (3.3-5.1); Sodium 140 mmol/L (135-145)
[2024-10-04 08:00] VITALS: BP 133/81; PULSE 99; RESP 20; TEMP 36.6; O2SAT 96
--- NOTE | 2024-10-04 08:28 | MHC.CM.PN ---
CM met with Patient at bedside and verbally addressed ELIZABETH with him; Patient is physically unable to sign(original was left at bedside and a copy has been placed on the chart). Per CM documentation from recent admission, the HCP Agent on file has . Patient lives in an apartment with his Parents and he is bed bound and total care at baseline. Patient is active with [facility] and [facility] [employer] [facility] [facility]. Home/resume said [id number] is the goal and CM has initiated and will follow for dc planning. PCP is Dr. Sol Name and Patient will require S transport for dc to home.
--- NOTE | 2024-10-04 08:50 | PHA.MEDREC ---
Addendum entered by Hermelnido Carpio RPh 10/04/24 10:12: med rec checked by [facility] Original Note: Pharmacy Consult ? Medication Reconciliation Pharmacy has completed the medication reconciliation. Spoke with patient and he confirmed his medications with me. He stated he is still taking the Tizanidine 2mg tab as needed for the muscle spasms and when I asked if he is now taking Cyclobenzaprine 10mg tabs now he did not know about that and only knew he was only taking the Tizanidine for muscle spasms. He confirmed he finished the Cefopodoxime 100mg tab a few weeks ago and is going to be going home with 2 new antibiotics but did not remember the name of them; we have Cefdinir and Levofloxacin added yesterday as new antibiotics for the patient. He confirmed he took his medications yesterday.
--- NOTE | 2024-10-04 10:47 | P.DS_ITS ---
DS: Providers Provider Date of Service: 10/04/24 Date of admission: 10/03/24 21:27 Date of discharge: 10/04/24 Primary care physician: Ebenezer Leslie MD Consults: 10/03/24 21:27 Consult to Urology Routine Consulting Provider: [facility] Reason for consultation: suprapubic malfunction DS: Diagnosis Discharge Diagnosis (1) Suprapubic catheter dysfunction: Status: Acute (2) Urinary tract infection: Status: Acute (3) Cellulitis: Status: Acute DS: Summary Hospital Course Hospital Course: From the history and physical by the admitting hospitalist, ADELINA Marmolejo, 10/03/24: Pt is a 39-year-old male with a PMH significant for neuromyelitis optica spectrum disorder, neurogenic bladder with chronic suprapubic catheter in place, bed-bound at baseline, and hx of recurrent UTI?who presents to the ED after VNA accidentally removed patient has suprapubic catheter during routine catheter care and was unable to replace it. Nurse apparently also reported urine has been foul-smelling lately and was concerned of another possible UTI. Patient was recently on antibiotics for recurrent UTI. Patient seen and evaluated at bedside where he is resting comfortably in bed. Patient complains of chronic lower back pain and numbness and tingling in back and legs, but has no acute medical complaints. Denies fever or chills. No abdominal or pelvic pain. Denies chest pain/pressure, palpitations. No nausea, vomiting, or diarrhea. Denies shortness or breath or difficulty breathing. Of note, ED physicians were unable to replace suprapubic catheter, and nursing was unable to place Villatoro catheter despite multiple attempts. In the ED pt had elevated HR of 94, vitals otherwise stable and WNL. Labs were grossly unremarkable and baseline for patient. No leukocytosis. Stable microcytic anemia of 30.0/41.1. No electrolyte abnormalities. Renal function baseline. Hepatic function WNL. Lactic acid WNL 1.4. Pt was treated with Zosyn. Pt will be admitted to the hospital under observation while awaiting suprapubic catheter replacement by Urology in the morning. He was admitted to the hospitalist [facility]. Suprapubic catheter was replaced by Urology. He was treated with levofloxacin and clindamycin for UTI and minor cellulitis at the site of the catheter. Blood and urine cultures pending at the time of discharge and the patient will be called with the results. He was discharged home with resumption of VNA services. Time Attestation Discharge Coordination Time (in mins): 35 Quality: Safe Use of Opioids Does Pt have an Active Cancer Diagnosis on the Problem List?: No Quality: Stroke Does the patient have a stroke diagnosis?: No Physical Exam Vital Signs: Vital Signs: Last Vital Signs Temp 97.9 F 10/04/24 08:00 Pulse 99 10/04/24 08:00 Resp 20 10/04/24 08:00 BP 133/81 10/04/24 08:00 Pulse Ox 96 10/04/24 08:00 O2 Del Method Room Air 10/04/24 08:00 BMI result Body Mass Index 27.2 Gen: in no acute distress HEENT: sclera anicteric, moist mucus membranes Neck: supple Lungs: clear to auscultation bilaterally Heart: regular rate and rhythm, no murmurs Abd: soft, non-tender, non-distended, suprapubc catheter site with small area of erythema Ext: no edema Skin: warm/well-perfused Neuro: alert and oriented x3, generalized weakness lower>greater bilateral/symmetric Psych: appropriate affect DS: Data Data Completed and Pending Completed studies during hospitalization [Text1]: Laboratory Results WBC 11.5 X10*3/uL (4.8-10.8) H 10/04/24 06:15 RBC 5.04 X10*6/uL (4.60-5.80) 10/04/24 06:15 Hgb 12.3 g/dl (14.0-18.0) L 10/04/24 06:15 Hct 39.4 % (42.0-52.0) L 10/04/24 06:15 MCV 78.2 fL (80.0-98.0) L 10/04/24 06:15 MCH 24.4 pg (27.0-33.0) L 10/04/24 06:15 MCHC 31.2 g/dl (31.0-36.0) 10/04/24 06:15 RDW 15.0 % (11.0-16.0) 10/04/24 06:15 Plt Count 287 X10*3/uL (160-400) D 10/04/24 06:15 MPV 12.9 fL (9.4-12.4) H 10/04/24 06:15 Immature Gran % (Auto) 0.4 % (0.0-0.4) 10/04/24 06:15 Neut % (Auto) 72.0 % (45-73) 10/04/24 06:15 Lymph % (Auto) 11.6 % (20-40) L 10/04/24 06:15 [place] % (Auto) 12.8 % (2-11) H 10/04/24 06:15 Eos % (Auto) 2.9 % (0-4) 10/04/24 06:15 Baso % (Auto) 0.3 % (0-2) 10/04/24 06:15 Lymph # (Auto) 1.3 X10*3/uL (1.2-4.9) 10/04/24 06:15 [place] # (Auto) 1.5 X10*3/uL (0.1-1.2) H 10/04/24 06:15 Eos # (Auto) 0.3 X10*3/uL (0.0-0.4) 10/04/24 06:15 Baso # (Auto) 0.0 X10*3/uL (0.0-0.2) 10/04/24 06:15 Abs Immat Gran (auto) 0.05 X10*3/uL (0.00-0.03) H 10/04/24 06:15 Absolute Neuts (auto) 8.2 x10*3/uL (2.0-8.3) 10/04/24 06:15 Absolute Nucleated RBC 0.000 X10*3/uL (0.0-0.012) 10/04/24 06:15 Nucleated RBC % (auto) 0.0 /100WBC (0.0-0.2) 10/04/24 06:15 Smear Tech's Comments VERIFIED 10/03/24 16:58 Sodium 140 mmol/L (135-145) 10/04/24 06:15 Potassium 3.5 mmol/L (3.3-5.1) 10/04/24 06:15 Chloride 102 mmol/L (96-108) 10/04/24 06:15 Carbon Dioxide 26 mmol/L (22-29) 10/04/24 06:15 Anion Gap 16 (12-20) 10/04/24 06:15 BUN 11 mg/dL (9-16) 10/04/24 06:15 Creatinine 0.65 mg/dL (0.5-1.4) 10/04/24 06:15 Estim Creat Clear Calc 151.0 10/04/24 06:15 Estimated GFR > 60 10/04/24 06:15 Random Glucose 85 mg/dL (60-115) 10/04/24 06:15 Lactic Acid 1.4 mmol/L (0.5-2.0) 10/03/24 20:36 Calcium 9.4 mg/dL (8.4-10.2) 10/04/24 06:15 Magnesium 2.2 mg/dL (1.6-2.6) 10/03/24 16:58 Total Bilirubin 0.3 mg/dL (0.0-1.0) 10/03/24 16:58 AST 22 U/L (5-37) 10/03/24 16:58 ALT 17 U/L (0-40) 10/03/24 16:58 Alkaline Phosphatase 60 U/L (39-117) 10/03/24 16:58 Total Protein 7.4 g/dL (6.5-8.0) 10/03/24 16:58 Albumin 3.8 g/dL (3.5-5.0) 10/03/24 16:58 Urine Color Yellow 10/04/24 02:56 Urine Appearance Turbid 10/04/24 02:56 Urine pH 5.5 (5.0-9.0) 10/04/24 02:56 Ur Specific [place] 1.020 (1.005-1.025) 10/04/24 02:56 Urine Protein 30 (1+) mg/dL (Neg-Trace) H 10/04/24 02:56 Urine Glucose (UA) Negative mg/dL (Negative) 10/04/24 02:56 Urine Ketones 15 mg/dL (Negative) 10/04/24 02:56 Urine Blood Large (3+) (Negative) H 10/04/24 02:56 Urine Nitrite Negative (Negative) 10/04/24 02:56 Ur Leukocyte Esterase Large (3+) (Negative) H 10/04/24 02:56 Urine RBC >20 /HPF (0-2) H 10/04/24 02:56 Urine WBC >50 /HPF (0-5) H 10/04/24 02:56 Urine WBC Clumps Present 10/04/24 02:56 Ur Squamous Epith Cells 0-2 /HPF (0-2) 10/04/24 02:56 Urine Bacteria 2+ (None Seen) 10/04/24 02:56 Hyaline Casts 0-2 /LPF (0-2) 10/04/24 02:56 Pending studies at discharge: urine and blood cultures 10/03/24 Discharge Plan Discharge Patient Disposition: Home Health Service Discharge Diagnosis: suprapubic catheter dysfunction Referrals: [facility] [Provider Group] - 2 Weeks [facility] [Outside] - 1 Week Name,MD Ebenezer [Primary Care Provider] - 1 Week Discharge Medications: New levofloxacin 750 mg tablet 750 mg PO DAILY 7 Days Qty: 7 0RF clindamycin HCl 300 mg capsule 300 mg PO TID Qty: 21 0RF Continued (DME) syringe disposable, irrigation 60 mL syringe See Rx Instructions .Route Qty: 2 5RF Rx Instructions: As directed 2 per month ascorbic acid (vitamin C) [Vitamin C] 500 mg tablet 500 mg PO BID 90 Days Qty: 180 1RF (DME) Villatoro Catheter Tray Tray See Rx Instructions .Route Qty: 2 5RF Rx Instructions: As directed 2 per month (DME) [place] Urinary Drainage Bag Misc See Rx Instructions .Route Qty: 2 5RF Rx Instructions: As directed, 2 per month (DME) Urinary Leg Bag Misc See Rx Instructions .Route Qty: 4 5RF Rx Instructions: As directed, 4 per month. (DME) Villatoro Catheter 20 Fr misc See Rx Instructions .Route Qty: 2 5RF Rx Instructions: As directed, 2 per month. water for irrigation, sterile [Curity Sterile Water] Solution 1 irrig irrigation DAILY Qty: 9000 12RF multivitamin Tablet 1 tab PO DAILY sertraline 50 mg tablet 50 mg PO DAILY tizanidine 2 mg Tablet 2 mg PO Q8H PRN (Reason: Muscle Spasm) acetaminophen 500 mg tablet 500 mg PO Q6H PRN (Reason: Pain) clindamycin phosphate 1 % lotion 1 appl topical BID methenamine hippurate 1 gram tablet 1 g PO BID Discontinued cefpodoxime 100 mg tablet 100 mg PO BID Qty: 10 0RF Rx Instructions: must administer with a meal/food Discharge Orders: Discharge Order (Routine); Ordered 10/04/24 Ordered By: Yulissa Bustos Diet: Advance to usual diet Activity on Discharge: As tolerated Stand Alone Forms: Patient Portal Discharge page, Work/School Release Print Language: Sami Care Plan Goals: urinary flow treatment of UTI Health Concerns: blocked suprapubic catheter UTI and minor skin infection at catheter site Plan of Treatment: suprapubic catheter changed levofloxacin 750 mg once daily for 7 days clindamycin 300 mg 3x a day for 7 days follow up [facility] in 2 weeks Please follow up with your primary care doctor within 1 week. Return to the hospital if you experience recurrent or worsening symptoms. Assessment: See Discharge Summary. Patient Instructions: Urinary Tract Infection in Men (ED), Cellulitis (ED)
[2024-10-04] MEDS: TiZANidine HCL 4 MG TABLET 2 MG PO (11:11)
[2024-10-04] MEDS: Sertraline HCL 50 MG TABLET PO (11:12)
[2024-10-04] MEDS: Clindamycin HCL 300 MG CAPSULE PO (11:12)
[2024-10-04] MEDS: 0.9 % Sodium Chloride Flush 3 ML SYRINGE IVFLUSH (11:13)
[2024-10-04] MEDS: levoFLOXacin/D5W 750 MG/150 ML PIGGYBACK 100 MG IV (11:13)
[2024-10-04 11:27] VITALS: BP 113/82; PULSE 100; RESP 20; TEMP 36.4; O2SAT 99
--- NOTE | 2024-10-04 13:55 | MHC.SL.SWA ---
Speech Pathologist Impression: Mild oral and pharyngeal dysphagia Risk of Aspiration Due to: Medical complexity Bedbound Hx of dysphagia Dysphasia Diet Status: Pt had an MBSS in April 2022, no aspiration visualized. Recc NDD3 with thins, TRAVERTINE INSTALLER services indicated upon d/c. Liquid Consistency and Strategies for Safe Swallow: Liquid Intake Recommendation: Thin Liquid Intake Strategies: Small Sips Solid Food Consistency: Dietary Recommendations: Chopped/Advanced (NDD3) Oral Medication Intake: Crushed with Puree Please contact the pharmacy regarding appropriate crushable or liquid drug formulations that are available whenever modified delivery is recommended. Compensatory Strategies and Precautions to be Taken for Safe Swallow: Sitting Upright (90 deg) Liquids from Cup Liquids from Straw Small Bites and Sips Alternate Liquids/Solids Rate of Ingestion Change Oral Check Avoid Specific Foods Supervision While Eating and Drinking for Safe Swallow: Total Supervision (1:1) Foods to Avoid: Avoid tough solids and mixed consistencies Swallowing Recommended Treatments: Compens. Strategy Educat. Recommendation for Speech: Speech Therapy through VNA Comment: Frequency/Duration: Pt d/c planned, [employer] INSTALLER to be ordered through home services as appropriate or indicated. Date Range for Service Req: Timeline to reassess: Sales Assistant Displays Clinican/Clinical Fellow: No Supervisory Statement: I have reviewed and agree with the student/clinical fellow's documentation: N/A Speech Language Pathologist: Maral Holman M.S., CCC-TRAVERTINE INSTALLER
--- NOTE | 2024-10-04 14:54 | MHC.CM.PN ---
Patient has been medically cleared for dc to home today, with services. Patient is active with [facility], who has been notified of today's dc.
--- NOTE | 2024-10-04 15:03 | PM.UROCN ---
History of Present Illness Consult details Consult date: 10/04/24 Narrative: CC: Displaced suprapubic tube 39-year-old male with past history of neuromyelitis optica syndrome disorder Neurogenic bladder with chronic suprapubic tube - initial placement 11/01/2023 Presents to ED after VNA had accidentally removed suprapubic tube and was unable to replace it. There had been concerns regarding a UTI. Multiple attempts were made to replace suprapubic tube. That unable to place within the emergency room. Patient was admitted with a dose of Zosyn for raised white cell count. Suprapubic incision at the bedside was inspected Using a lidocaine Uro jet this was able to be inserted into the contracted opening and lidocaine was easily injected along the tract with minimal resistance. A blue meatal dilator was then inserted to dilate the narrowed tract. A Fourteen Ukrainian silicone Villatoro catheter placed after dilatation of suprapubic incision at the bedside. Good efflux of urine was seen. 10 cc was placed in the balloon. A leg bag was attached. CPT difficult suprapubic exchange - 58622;?this code signifies a Change of cystostomy tube; complicated and is used when the procedure involves extra steps like tract dilation or significant manipulation due to complications with the existing tract or catheter placement Review of Systems Constitutional: Constitutional: Reports as per HPI and Reports no additional constitutional complaints Cardiovascular: Cardiovascular: Reports as per HPI and Reports no additional cardiovascular complaints Respiratory: Respiratory: Reports as per HPI and Reports no additional respiratory complaints Gastrointestinal: Gastrointestinal: Reports as per HPI and Reports no additional gastrointestinal complaints Genitourinary: Genitourinary: Reports as per HPI Musculoskeletal: Musculoskeletal: Reports no additional musculoskeletal complaints and Reports as per HPI Neurologic: Reports system reviewed and no additional complaints, except as documented and Reports as per HPI [facility] Past Medical History Medical History 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 Microcytic anemia Multiple sclerosis Headache Family History Family History Other No family history of coronary artery disease Surgical History Surgical History H/O hernia repair Social History Social History Household Members: Family Household Members Other:: parents Housing: Apartment 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 have 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 nurse or 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) Unable to assess alcohol history related to: Unknown Alcohol intake: never Patient Tobacco Use Status: Former Tobacco user Tobacco use type: Cigarette Cigarettes Per Day: 0.25 Substance Use Type: Marijuana Advance Directives Date on File: 08/21/22 service: No Current occupational status: disabled Meds Allergies Allergy/AdvReac Type Severity Reaction Status Date / Time doxycycline Allergy Rash Verified 09/18/24 12:24 Active Medications: Current Medications Acetaminophen (Acetaminophen 325 Mg Tablet) 650 mg PO Q6H PRN PRN Reason: Pain, Mild (Pain Scale 1-3), fever or headache Ascorbic Acid (Ascorbic Acid 500 Mg Tablet) 500 mg PO BID LALO Calcium Carbonate (Calcium Carbonate 750 Mg Tab.Chew) 750 mg PO Q4H PRN PRN Reason: Heartburn Clindamycin HCl (Clindamycin Hcl 300 Mg Capsule) 300 mg PO Q8H [facility] Last Admin: 10/04/24 11:12 Dose: 300 mg Enoxaparin Sodium (Enoxaparin Sodium 40 Mg/0.4 Ml Syringe) 40 mg SUBCUT Q24H [facility] Last Admin: 10/03/24 21:41 Dose: 40 mg Levofloxacin (Levaquin) 750 mg in 150 mls @ 100 mls/hr IV Q24H [facility] Last Infusion: 10/04/24 12:59 Dose: Infused Magnesium Hydroxide (Milk Of Magnesia 30 Ml Oral.Susp) 30 ml PO DAILY PRN PRN Reason: Constipation Melatonin (Melatonin 3 Mg Tablet) 6 mg PO BEDTIME PRN PRN Reason: Insomnia Multivitamins/Vitamin C (Multivitamin Tablet) 1 tab PO DAILY [facility] Ondansetron HCl (Ondansetron Hcl 4 Mg/2 Ml Vial) 4 mg IVPUSH Q8H PRN PRN Reason: Nausea and Vomiting Sertraline HCl (Sertraline Hcl 50 Mg Tablet) 50 mg PO DAILY [facility] Last Admin: 10/04/24 11:12 Dose: 50 mg Sodium Chloride (0.9 % Sodium Chloride Flush 3 Ml Syringe) 3 ml IVFLUSH QSHIFT [facility] Last Admin: 10/04/24 11:13 Dose: 3 ml Tizanidine HCl (Tizanidine Hcl 4 Mg Tablet) 2 mg PO Q8H PRN PRN Reason: Muscle Spasm Last Admin: 10/04/24 11:11 Dose: 2 mg Home Medications ?Medication ?Instructions ?Recorded ?Confirmed ?Last Taken ?Type multivitamin 1 tab PO DAILY 08/20/22 10/04/24 10/03/24 History sertraline 50 mg tablet 50 mg PO DAILY 02/22/24 10/04/24 10/03/24 History tizanidine 2 mg tablet 2 mg PO Q8H PRN Muscle Spasm 02/22/24 10/04/24 10/03/24 History acetaminophen 500 mg tablet 500 mg PO Q6H PRN Pain 09/10/24 10/04/24 10/03/24 History clindamycin phosphate 1 % lotion 1 appl topical BID 09/10/24 10/04/24 10/03/24 History methenamine hippurate 1 gram tablet 1 g PO BID 09/10/24 10/04/24 10/03/24 History Physical Exam Vital Signs: Vital Signs: Last Vital Signs Temp 97.5 F 10/04/24 11:27 Pulse 100 10/04/24 11:27 Resp 20 10/04/24 11:27 BP 113/82 10/04/24 11:27 Pulse Ox 99 10/04/24 11:27 O2 Del Method Room Air 10/04/24 11:27 BMI result Body Mass Index 27.2 Const: General: cooperative, healthy appearing, comfortable and no acute distress Orientation/consciousness: patient oriented x3 HEENT: Face and sinus: Yes normal facial exam Mouth: moist mucous membranes Neck: Neck: Yes normal visual inspection, Yes full ROM and Yes trachea midline Chest: Chest palpation & inspection: normal inspection of the chest Resp: Effort & Inspection: normal respiratory effort, able to speak in complete sentences and no respiratory distress GI: Inspection: Yes normal to inspection Back/Spine/Pelvis: Cervical Spine: normal cervical lordosis Thoracic/Lumbar Spine: thoracic and lumbar spine normal to inspection Skin: General skin exam: no rashes or lesions noted Neuro: General: patient oriented x3, tone normal and moves all extremities Extrem: General: Yes normal to inspection and Yes capillary refill normal Results Labs 10/04/24 06:15 10/04/24 06:15 Labs: Abnormal lab results 10/03/24 10/04/24 10/04/24 Range/Units 16:58 02:56 06:15 WBC 11.5 H (4.8-10.8) X10*3/uL Hgb 13.0 L 12.3 L (14.0-18.0) g/dl Hct 41.1 L D 39.4 L (42.0-52.0) % MCV 78.7 L 78.2 L (80.0-98.0) fL MCH 24.9 L 24.4 L (27.0-33.0) pg MPV 12.6 H 12.9 H (9.4-12.4) fL Immature Gran % (Auto) 0.6 H (0.0-0.4) % Lymph % (Auto) 15.8 L 11.6 L (20-40) % [place] % (Auto) 15.0 H 12.8 H (2-11) % [place] # (Auto) 1.5 H (0.1-1.2) X10*3/uL Abs Immat Gran (auto) 0.05 H 0.05 H (0.00-0.03) X10*3/uL Urine Protein 30 (1+) H (Neg-Trace) mg/dL Urine Blood Large (3+) H (Negative) Ur Leukocyte Esterase Large (3+) H (Negative) Urine RBC >20 H (0-2) /HPF Urine WBC >50 H (0-5) /HPF Short CBC 10/03/24 10/04/24 Range/Units 16:58 06:15 WBC 8.0 11.5 H (4.8-10.8) X10*3/uL Hgb 13.0 L 12.3 L (14.0-18.0) g/dl Hct 41.1 L D 39.4 L (42.0-52.0) % Plt Count 189 287 D (160-400) X10*3/uL BMP 10/03/24 10/04/24 16:58 06:15 Sodium 137 140 Potassium 3.7 3.5 Chloride 104 102 Carbon Dioxide 23 26 BUN 9 11 Creatinine 0.63 0.65 Calcium 9.1 9.4 Liver Function 10/03/24 Range/Units 16:58 Total Bilirubin 0.3 (0.0-1.0) mg/dL AST 22 (5-37) U/L ALT 17 (0-40) U/L Alkaline Phosphatase 60 (39-117) U/L Albumin 3.8 (3.5-5.0) g/dL Urine 10/04/24 Range/Units 02:56 Urine Color Yellow Urine Appearance Turbid Urine pH 5.5 (5.0-9.0) Ur Specific [place] 1.020 (1.005-1.025) Urine Protein 30 (1+) H (Neg-Trace) mg/dL Urine Glucose (UA) Negative (Negative) mg/dL All other labs normal. Assessment and Plan (1) Suprapubic catheter dysfunction: Status: Acute Plan SPT replaced We will see him in office for upsizing of tube Procedures Date of Service Date of Service: 10/04/24
--- NOTE | 2024-10-04 15:16 | MHC.CM.PN ---
Addendum entered by Maria Luisa Haskins 10/04/24 15:22: CM left a detailed message for Primary Contact/David @ [phone], informing him of the dc plan. Original Note: Patient has been medically cleared for dc to home today, with services. Patient is active with [facility], who has been notified of today's dc. CM met with Patient who is aware of and in agreement with the dc plan. Patient will transport home today at 6PM, via [facility] and [facility] transport auth # is [id number].
[2024-10-04 15:24] VITALS: BP 119/75; PULSE 100; RESP 18; TEMP 36.2; O2SAT 97
== END 2024-10-04 18:41 | disposition home health service (06) ==
LOC: HO.ED 19:49 → HO.EDOVER 21:41 → HO.IMC 10-04 02:06
PROVIDERS: Physician Assistant; Admitting Provider Student in an Organized Health Care Education/Training Program; Emergency Provider Emergency Medicine Emergency Medical Services; PCP Internal Medicine Geriatric Medicine; Visit Provider Family Medicine
DX: T83.028A Displacement of other urinary catheter, initial encounter (principal); Y65.8 Other specified misadventures during surgical and medical care; Y73.1 Therapeutic (nonsurgical) and rehabilitative gastroenterology and urology devices associated with adverse incidents; Y92.9 Unspecified place or not applicable; N39.0 Urinary tract infection, site not specified; L03.90 Cellulitis, unspecified; G35 Multiple sclerosis; G36.0 Neuromyelitis optica [Devic]; N31.9 Neuromuscular dysfunction of bladder, unspecified; Z79.899 Other long term (current) drug therapy
CPT/HCPCS: 51705; 36415; 51710; 80048; 80053; 81001; 81003; 83605; 83735; 85025; 87040; 87086; 92610; 96365; 96366; 96367; 96372; 99222; 99285; J1650; J1956; J2543

== ENCOUNTER → 2024-10-03 21:27 | Outpatient (BNV) | payer OTHER, SELFPAY | PROVIDERS: Admitting Provider Student in an Organized Health Care Education/Training Program; Emergency Provider Emergency Medicine Emergency Medical Services; PCP Internal Medicine Geriatric Medicine; Visit Provider Urology | DX: T83.010A Breakdown (mechanical) of cystostomy catheter, initial encounter (principal) | CPT/HCPCS: 51705; 99222 ==

== ENCOUNTER → 2024-10-03 21:27 | Outpatient (BNV) | payer OTHER, SELFPAY | PROVIDERS: Admitting Provider Student in an Organized Health Care Education/Training Program; Emergency Provider Emergency Medicine Emergency Medical Services; PCP Internal Medicine Geriatric Medicine; Visit Provider Student in an Organized Health Care Education/Training Program | DX: T83.010A Breakdown (mechanical) of cystostomy catheter, initial encounter (principal); N39.0 Urinary tract infection, site not specified; L03.90 Cellulitis, unspecified | CPT/HCPCS: 99222; 99239 ==

== ENCOUNTER 2024-10-11 13:54 | Observation (INO) | payer OTHER, SELFPAY ==
--- NOTE | ~2024-10-11 | XR_ITS ---
EXAMINATION: XR CHEST CLINICAL INFORMATION: cough, choking, dyspnea COMPARISON: None available. TECHNIQUE: Frontal view of the chest was obtained. FINDINGS: No significant abnormality is noted involving the heart, lungs, mediastinum, bony thorax or soft tissues. XR/XR chest 1V IMPRESSION: Unremarkable chest examination. Electronically signed by: Cj Diaz MD 10/11/2024 03:03 PM [facility]
[2024-10-11 14:04] VITALS: BP 108/73; PULSE 95; O2SAT 99
--- NOTE | 2024-10-11 14:14 | ED.WEAKNESS ---
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 He notes no fevers but every time he drinks or tries to eat he chokes and is having a hard time. No recent travel or exposures. He missed a [facility] appointment for steroid infusion on 10/02 but states he has not had these symptoms in the past if he has missed. He denies hx of aspiration or dysphagia to me. 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 [facility] - I see no recent visits for infusions, it said at that time post procedure he had improved difficulty swallowing MD Complaint: generalized weakness (choking, cough, phlegm) Onset (ago): day(s) (3) Duration: constant Location: generalized Migration: none Severity: moderate Relieving factors: none Exacerbating factors: other (eating and drinking) Context: other Associated symptoms: loss of appetite and other (cough, dyspnea, weakness) Related Data Home Medications ?Medication ?Instructions ?Recorded ?Confirmed multivitamin 1 tab PO DAILY 08/20/22 10/04/24 sertraline 50 mg tablet 50 mg PO DAILY 02/22/24 10/04/24 tizanidine 2 mg tablet 2 mg PO Q8H PRN Muscle Spasm 02/22/24 10/04/24 acetaminophen 500 mg tablet 500 mg PO Q6H PRN Pain 09/10/24 10/04/24 clindamycin phosphate 1 % lotion 1 appl topical BID 09/10/24 10/04/24 methenamine hippurate 1 gram tablet 1 g PO BID 09/10/24 10/04/24 Previous Rx's ?Medication ?Instructions ?Recorded syringe disposable, irrigation 60 #2 ea 01/06/24 mL ascorbic acid (vitamin C) 500 mg 500 mg PO BID 90 days #180 tabs 05/12/24 tablet (Vitamin C) catheter 20 Fr (Villatoro Catheter) #2 ea 08/19/24 catheterization tray (Villatoro #2 ea 08/19/24 Catheter Tray) urinary bag (Bardia Urinary #2 ea 08/19/24 Drainage Bag) urinary bag (Urinary Leg Bag) #4 ea 08/19/24 water for irrigation, sterile 1 irrig irrigation DAILY #9,000 mL 08/19/24 (Curity Sterile Water irrigation solution) levofloxacin 750 mg tablet 750 mg PO DAILY 7 days #7 tabs 10/03/24 clindamycin HCl 300 mg capsule 300 mg PO TID #21 caps 10/04/24 Allergies Allergy/AdvReac Type Severity Reaction Status Date / Time doxycycline Allergy Rash Verified 10/11/24 14:18 Review of Systems Review of Systems: Constitutional : No Fever, No Chills, No Fatigue ENT/Mouth : No sore throat, No Rhinorrhea Eyes: No Eye Pain, No Swelling, No Redness Cardiovascular : No Chest Pain, pos SOB Respiratory : pos Cough, pos Sputum Gastrointestinal : No Nausea, No Vomiting, No Diarrhea, No abdominal Pain Genitourinary : No Dysuria, No Urinary Frequency, No Hematuria, Musculoskeletal : No joint pain, No Myalgias, No Joint Swelling Skin : No Skin Lesions, No rash Neuro : No Weakness, No Numbness, No Dizziness, positive Headache Psych : No Anxiety/Panic, No Depression All other systems reviewed and are negative [facility] Past Medical History Attestation statement: The following information was validated with the patient. 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) Unable to assess alcohol history related to: Unknown Alcohol intake: never Patient Tobacco Use Status: Former Tobacco user Tobacco use type: Cigarette Cigarettes Per Day: 0.25 Substance Use Type: Marijuana Advance Directives: Yes Advance Directives on File: Yes Advance Directives Date on File: 08/21/22 service: No Current occupational status: disabled Physical Exam Vital Signs: Vital Signs: Last Vital Signs Temp 98.2 F 10/11/24 15:24 Pulse 96 10/11/24 15:24 Resp 18 10/11/24 15:24 BP 124/83 10/11/24 15:24 Pulse Ox 100 10/11/24 15:24 O2 Del Method Room Air 10/11/24 15:24 BMI result Body Mass Index 25.7 Appearance: Alert. Oriented X3. No acute distress. Eyes: Pupils equal, round and reactive to light. ENT: Pharynx normal. Neck: Normal inspection. Neck supple. CVS: Normal heart rate and rhythm. Pulses normal. Respiratory: No respiratory distress. Breath sounds coarse and diminished Abdomen: Soft and non-tender. Skin: Skin warm and dry. Normal skin color. Extremities: No lower extremity edema. Neuro: Oriented X 3. No motor deficit. No sensory deficit. Course Course Course Narrative: records from [facility] say last visit was in February but there is no history of infusions Medications Administered Discontinued Medications Generic Name Dose Route Start Last Admin Trade Name Freq PRN Reason Stop Dose Admin Piperacillin Sod/Tazobactam 50 mls @ 100 mls/hr 10/11/24 14:26 10/11/24 15:58 Sod 3.375 gm/ Sodium Chloride IV 10/11/24 14:55 100 mls/hr ONCE ONE Administration Medical Decision Making Medical Decision Making [facility] Narrative: 38 yo male with PMH of chronic suprapubic catheter prior CAUTI, neuromyelitis optica spectrum disorder with neurogenic bladder, bed bound hx of pseudomonos and enterococcus - UTI here with c/o recent missed treatment at [facility] now with difficulty swallowing and cough with phlegm at this time basic labs, EKG, CXR for aspiration, empiric zosyn. I am going to try to obtain his outpatient information and missed medication dose Differential Diagnosis Differential Diagnoses: The differential diagnosis associated with the presentation includes aspiration, correction demyelinating ds, non compliance Admission/Observation Consideration of admission/observation: Escalation of care including admission/observation considered admit for IV abx, swallow study, neuro consult Consult Healthcare Provider Management of the patient was discussed with: Hospitalist (will admit) Lab Data MDM Lab Attestation statement: I reviewed the patient's lab results. 10/11/24 15:41 10/11/24 15:39 Labs: Lab Results 10/11/24 10/11/24 10/11/24 Range/Units 15:09 15:39 15:41 WBC 9.7 (4.8-10.8) X10*3/uL RBC 4.95 (4.60-5.80) X10*6/uL Hgb 12.3 L (14.0-18.0) g/dl Hct 38.2 L (42.0-52.0) % MCV 77.2 L (80.0-98.0) fL MCH 24.8 L (27.0-33.0) pg MCHC 32.2 (31.0-36.0) g/dl RDW 14.9 (11.0-16.0) % Plt Count 218 (160-400) X10*3/uL MPV 12.1 (9.4-12.4) fL Immature Gran % (Auto) 0.2 (0.0-0.4) % Neut % (Auto) 77.3 H (45-73) % Lymph % (Auto) 9.8 L (20-40) % [place] % (Auto) 11.8 H (2-11) % Eos % (Auto) 0.6 (0-4) % Baso % (Auto) 0.3 (0-2) % Lymph # (Auto) 1.0 L (1.2-4.9) X10*3/uL [place] # (Auto) 1.1 (0.1-1.2) X10*3/uL Eos # (Auto) 0.1 (0.0-0.4) X10*3/uL Baso # (Auto) 0.0 (0.0-0.2) X10*3/uL Abs Immat Gran (auto) 0.02 (0.00-0.03) X10*3/uL Absolute Neuts (auto) 7.5 (2.0-8.3) x10*3/uL Absolute Nucleated RBC 0.000 (0.0-0.012) X10*3/uL Nucleated RBC % (auto) 0.0 (0.0-0.2) /100WBC Sodium 141 (135-145) mmol/L Potassium 3.7 (3.3-5.1) mmol/L Chloride 104 (96-108) mmol/L Carbon Dioxide 29 (22-29) mmol/L Anion Gap 12 (12-20) BUN 6 L (9-16) mg/dL Creatinine 0.58 (0.5-1.4) mg/dL Estim Creat Clear Calc 169.3 Estimated GFR > 60 Random Glucose 95 (60-115) mg/dL Lactic Acid 1.0 (0.5-2.0) mmol/L Calcium 9.5 (8.4-10.2) mg/dL Magnesium 2.2 (1.6-2.6) mg/dL Total Bilirubin 0.2 (0.0-1.0) mg/dL Direct Bilirubin < 0.2 (0.0-0.5) mg/dL AST 14 (5-37) U/L ALT 10 (0-40) U/L Alkaline Phosphatase 63 (39-117) U/L Total Protein 7.6 (6.5-8.0) g/dL Albumin 4.2 (3.5-5.0) g/dL Lipase 20 (8-78) U/L Urine Color Yellow Urine Appearance Cloudy Urine pH 6.0 (5.0-9.0) Ur Specific [place] 1.025 (1.005-1.025) Urine Protein 100 (2+) H (Neg-Trace) mg/dL Urine Glucose (UA) Negative (Negative) mg/dL Urine Ketones Trace (Negative) mg/dL Urine Blood Small (1+) H (Negative) Urine Nitrite Negative (Negative) Ur Leukocyte Esterase Large (3+) H (Negative) Urine RBC 6-10 H (0-2) /HPF Urine WBC >50 H (0-5) /HPF Ur Squamous Epith Cells 0-2 (0-2) /HPF Urine Bacteria 4+ (None Seen) Hyaline Casts 0-2 (0-2) /LPF Urine Yeast Present Influenza Type A (PCR) NEGATIVE (Negative) Influenza Type B (PCR) NEGATIVE (Negative) RSV RNA Qual (PCR) NEGATIVE (Negative) SARS-CoV-2 RNA (RT-PCR) NEGATIVE (Negative) Independent Interpretation I performed an independent interpretation of an: EKG and Plain X-Ray (normal ) Interpretation: Rate: 99 Rhythm: NSR [place]: normal Normal P waves. Normal [place]AB[place]. Normal QRS complex. ST T wave : no acute ischemia, no CARLITOS qTC: 454 prior studies: no acute ischemia The study has been interpreted contemporaneously by me. . Radiology Impression Discussion of test interpretation with radiology: I have reviewed the radiologist's reading. Independent Historian Clinical information obtained from an independent historian. History obtained from or confirmed by: EMS External Record Review External record reviewed: Outpatient record Discharge Plan Discharge Clinical Impression: Urinary tract infection, Dysphagia Patient Disposition: Admitted As Inpatient Prescriptions: No Action (DME) syringe disposable, irrigation 60 mL syringe See Rx Instructions .Route Qty: 2 5RF Rx Instructions: As directed 2 per month ascorbic acid (vitamin C) [Vitamin C] 500 mg tablet 500 mg PO BID 90 Days Qty: 180 1RF (DME) Villatoro Catheter Tray Tray See Rx Instructions .Route Qty: 2 5RF Rx Instructions: As directed 2 per month (DME) Bardia Urinary Drainage Bag Misc See Rx Instructions .Route Qty: 2 5RF Rx Instructions: As directed, 2 per month (DME) Urinary Leg Bag Misc See Rx Instructions .Route Qty: 4 5RF Rx Instructions: As directed, 4 per month. (DME) Villatoro Catheter 20 Fr misc See Rx Instructions .Route Qty: 2 5RF Rx Instructions: As directed, 2 per month. water for irrigation, sterile [Curity Sterile Water] Solution 1 irrig irrigation DAILY Qty: 9000 12RF multivitamin Tablet 1 tab PO DAILY sertraline 50 mg tablet 50 mg PO DAILY tizanidine 2 mg Tablet 2 mg PO Q8H PRN (Reason: Muscle Spasm) acetaminophen 500 mg tablet 500 mg PO Q6H PRN (Reason: Pain) clindamycin phosphate 1 % lotion 1 appl topical BID methenamine hippurate 1 gram tablet 1 g PO BID levofloxacin 750 mg tablet 750 mg PO DAILY 7 Days Qty: 7 0RF clindamycin HCl 300 mg capsule 300 mg PO TID Qty: 21 0RF Print Language: Samoan
[2024-10-11 14:17] VITALS: BP 118/82; PULSE 111; RESP 18; TEMP 36.6; O2SAT 99; BMI 25.7
--- NOTE | 2024-10-11 14:26 | ECG_ITS ---
Test Reason : DYSPHASIA Blood Pressure : / mmHG Vent. Rate : 099 BPM Atrial Rate : 099 BPM P-R Int : 164 ms QRS Dur : 082 ms QT Int : 354 ms P-R-T Axes : 083 047 079 degrees QTc Int : 454 ms Normal sinus rhythm Nonspecific ST and T wave abnormality Abnormal ECG When compared with ECG of 09-SEP-2024 18:29, Vent. rate has decreased BY 53 BPM Left anterior fascicular block is no longer Present Criteria for Anterior infarct are no longer Present Nonspecific T wave abnormality, worse in Lateral leads Referred By: Delfina Juares Electronically Signed By:SUPRIYA LINTON MD
[2024-10-11 15:24] VITALS: BP 124/83; PULSE 96; RESP 18; TEMP 36.8; O2SAT 100
[2024-10-11 15:48] LABS: MANUAL DIFF FLAG NO
[2024-10-11 15:50] LABS: Appearance Urine Cloudy; Color Urine Yellow; Glucose Urine UA Negative (Negative); Leukocyte Esterase Urine Large (3+) (Negative); Nitrite Urine Negative (Negative); Specific Gravity - Urine 1.025 (1.005-1.025); UMIC TRIGGER UACC YES; Urine Blood Small (1+) (Negative); Urine Ketones Trace mg/dL (Negative); Urine Protein 100 (2+) mg/dL (Neg-Trace)
[2024-10-11 15:52] LABS: Influenza A PCR NEGATIVE (Negative); Influenza B PCR NEGATIVE (Negative); Resp Syncy Virus RNA Qual PCR NEGATIVE (Negative); SARS COV2 PCR INHOUSE NEGATIVE (Negative)
[2024-10-11 15:53] LABS: Basophils Percent Auto 0.3 % (0-2); Eosinophils Absolute Auto 0.1 X10*3/uL (0.0-0.4); Eosinophils Percent Auto 0.6 % (0-4); Hematocrit 38.2 % (42.0-52.0); Hemoglobin 12.3 g/dl (14.0-18.0); Imm Gran Abs Auto 0.02 X10*3/uL (0.00-0.03); Imm Gran Pct Auto 0.2 % (0.0-0.4); Lymphocytes Percent Auto 9.8 % (20-40); Mean Corpuscular HGB Conc 32.2 g/dl (31.0-36.0); Mean Corpuscular Hemoglobin 24.8 pg (27.0-33.0); Mean Corpuscular Volume 77.2 fL (80.0-98.0); Mean Platelet Volume 12.1 fL (9.4-12.4); Monocytes Absolute Auto 1.1 X10*3/uL (0.1-1.2); Monocytes Percent Auto 11.8 % (2-11); Neutrophils Absolute Auto 7.5 x10*3/uL (2.0-8.3); Neutrophils Percent Auto 77.3 % (45-73); Platelet Count 218 X10*3/uL (160-400); Red Blood Count 4.95 X10*6/uL (4.60-5.80); Red Cell Distribution Width 14.9 % (11.0-16.0); White Blood Count 9.7 X10*3/uL (4.8-10.8)
[2024-10-11] MEDS: Piperacillin Sodium/Tazobactam 3.375 GM in 0.9 % Sodium Chloride 50 ML IV (15:58)
[2024-10-11 16:05] LABS: Alanine Aminotransferase 10 U/L (0-40); Albumin Level 4.2 g/dL (3.5-5.0); Alkaline Phosphatase 63 U/L (39-117); Anion Gap 12 (12-20); Aspartate Amino Transferase 14 U/L (5-37); Bacteria Urine 4+ (None Seen); Bilirubin Direct < 0.2 mg/dL (0.0-0.5); Bilirubin Total 0.2 mg/dL (0.0-1.0); Blood Urea Nitrogen 6 mg/dL (9-16); Calcium 9.5 mg/dL (8.4-10.2); Carbon Dioxide 29 mmol/L (22-29); Chloride 104 mmol/L (96-108); Creatinine Clr Calc Pharmacy 169.3; Estimated Glomerular Filt Rate > 60; Glucose Random 95 mg/dL (60-115); Hyaline Casts Urine 0-2 /LPF (0-2); Lipase 20 U/L (8-78); Magnesium 2.2 mg/dL (1.6-2.6); Potassium 3.7 mmol/L (3.3-5.1); Sodium 141 mmol/L (135-145); Squamous Epithelial Cell Urine 0-2 /HPF (0-2); Total Protein 7.6 g/dL (6.5-8.0); UACC Culture Trigger YES; WBC Urine >50 /HPF (0-5)
[2024-10-11 16:10] LABS: B Type Natriuretic Peptide < 10 pg/mL (<100)
[2024-10-11 16:15] LABS: Troponin-I High Sensitivity < 2.7 ng/L (<3.5-35.0)
--- NOTE | 2024-10-11 16:21 | P.HPHOSP_ITS ---
History of Present Illness Date of Service: 10/11/24 Chief Complaint: swallowing problem a 39-year-old male with a PMH significant for neuromyelitis optica spectrum disorder, neurogenic bladder with chronic suprapubic catheter in place, bed- bound at baseline, and hx of recurrent UTI?who presents to ED with worsening swallowing and weakness with cough and dyspnea. The patient presenting with 1 week of worsening swallowing as he missed his monthly dose of (Steroid???) at [facility]. No chest pain, palpitations, SOB, nausea, vomiting, diarrhea or urinary symptoms. He reports he was not able to tolerate much of diet, he did not aspirate or chocked on food. He did not have this dysphagia problem before even if he missed his monthly injection. Will be admitted for further work up and observation. Review of Systems 2 Review of Systems: No fever, chills or weakness No chest pain, palpitation mild shortness of breath and coughing No abdominal pain, nausea or vomiting No urinary symptoms No any rash or wounds PMFSH Medical History 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 Microcytic anemia Multiple sclerosis Headache Family History Other No family history of coronary artery disease Surgical History H/O hernia repair Social History Household Members: Family Household Members Other:: parents Housing: Apartment 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 have visiting nurse or other home services: Yes (physician liaison and vna) Unable to assess alcohol history related to: Unknown Alcohol intake: never Patient Tobacco Use Status: Former Tobacco user Tobacco use type: Cigarette Cigarettes Per Day: 0.25 Substance Use Type: Marijuana Advance Directives: Yes Advance Directives on File: Yes Advance Directives Date on File: 08/21/22 service: No Current occupational status: disabled Meds Allergies Allergy/AdvReac Type Severity Reaction Status Date / Time doxycycline Allergy Rash Verified 10/11/24 14:18 Active Medications: Current Medications Acetaminophen (Acetaminophen 325 Mg Tablet) 650 mg PO Q6H PRN PRN Reason: Pain, Mild 1-3,fever,headache Albuterol/Ipratropium (Albuterol/Iprat 2.5/0.5mg 3 Ml Ampul.Neb) 3 ml INHALE Q4H PRN PRN Reason: Shortness of Breath/Wheezing Benzonatate (Benzonatate 100 Mg Capsule) 100 mg PO TID PRN PRN Reason: Cough Calcium Carbonate (Calcium Carbonate 750 Mg Tab.Chew) 750 mg PO Q4H PRN PRN Reason: Heartburn Enoxaparin Sodium (Enoxaparin Sodium 40 Mg/0.4 Ml Syringe) 40 mg SUBCUT Q24H LALO Levofloxacin (Levaquin) 750 mg in 150 mls @ 100 mls/hr IV ONCE ONE Stop: 10/11/24 17:38 Magnesium Hydroxide (Milk Of Magnesia 30 Ml Oral.Susp) 30 ml PO DAILY PRN PRN Reason: Constipation Melatonin (Melatonin 3 Mg Tablet) 6 mg PO BEDTIME PRN PRN Reason: Insomnia Ondansetron HCl (Ondansetron Hcl 4 Mg/2 Ml Vial) 4 mg IVPUSH Q8H PRN PRN Reason: Nausea and Vomiting Sodium Chloride (0.9 % Sodium Chloride Flush 3 Ml Syringe) 3 ml IVFLUSH QSHIFT [facility] Home Medications ?Medication ?Instructions ?Recorded ?Confirmed ?Last Taken ?Type multivitamin 1 tab PO DAILY 08/20/22 10/04/24 10/03/24 History sertraline 50 mg tablet 50 mg PO DAILY 02/22/24 10/04/24 10/03/24 History acetaminophen 500 mg tablet 500 mg PO Q6H PRN Pain 09/10/24 10/04/24 10/03/24 History clindamycin phosphate 1 % lotion 1 appl topical BID 09/10/24 10/04/24 10/03/24 History methenamine hippurate 1 gram tablet 1 g PO BID 09/10/24 10/04/24 10/03/24 History cholecalciferol (vitamin D3) 50 50 mcg PO DAILY 10/11/24 Unknown History mcg (2,000 unit) capsule (Vitamin D3) clotrimazole-betamethasone 1 appl topical 10/11/24 Unknown History %-0.05 % topical cream cyclobenzaprine 10 mg tablet 10 mg PO TID 10/11/24 Unknown History prednisone 20 mg tablet 20 mg PO DAILY 10/11/24 Unknown History Physical Exam 2 Vital Signs and Narrative: Vital Signs: Last Vital Signs Temp 98.2 F 10/11/24 15:24 Pulse 96 10/11/24 15:24 Resp 18 10/11/24 15:24 BP 124/83 10/11/24 15:24 Pulse Ox 100 10/11/24 15:24 O2 Del Method Room Air 10/11/24 15:24 BMI result Body Mass Index 25.7 Const: Other: Constitutional : interactive, not in distress Cardiovascular : no JVP, no lower extremity edema Respiratory : bilateral chest movement, not in resp distress Gastrointestinal: soft, lax, Non tender Skin : Warm, Dry Neurological : Alert & oriented , bedbound , truncal and extremity weakness Results Labs 10/11/24 15:41 10/11/24 15:39 Labs: Laboratory Results - last 24 hr 10/11/24 10/11/24 10/11/24 15:09 15:39 15:41 MCV 77.2 L MCH 24.8 L MCHC 32.2 RDW 14.9 Plt Count 218 MPV 12.1 Immature Gran % (Auto) 0.2 Neut % (Auto) 77.3 H Lymph % (Auto) 9.8 L Ray % (Auto) 11.8 H Eos % (Auto) 0.6 Baso % (Auto) 0.3 Lymph # (Auto) 1.0 L Ray # (Auto) 1.1 Eos # (Auto) 0.1 Baso # (Auto) 0.0 Abs Immat Gran (auto) 0.02 Absolute Neuts (auto) 7.5 Absolute Nucleated RBC 0.000 Nucleated RBC % (auto) 0.0 Anion Gap 12 Estim Creat Clear Calc 169.3 Estimated GFR > 60 Random Glucose 95 Lactic Acid 1.0 Calcium 9.5 Magnesium 2.2 Total Bilirubin 0.2 Direct Bilirubin < 0.2 AST 14 ALT 10 Alkaline Phosphatase 63 Troponin I High Sens < 2.7 D B-Natriuretic Peptide < 10 Total Protein 7.6 Albumin 4.2 Lipase 20 Urine Color Yellow Urine Appearance Cloudy Urine pH 6.0 Ur Specific [place] 1.025 Urine Protein 100 (2+) H Urine Glucose (UA) Negative Urine Ketones Trace Urine Blood Small (1+) H Urine Nitrite Negative Ur Leukocyte Esterase Large (3+) H Urine RBC 6-10 H Urine WBC >50 H Ur Squamous Epith Cells 0-2 Urine Bacteria 4+ Hyaline Casts 0-2 Urine Yeast Present Influenza Type A (PCR) NEGATIVE Influenza Type B (PCR) NEGATIVE RSV RNA Qual (PCR) NEGATIVE SARS-CoV-2 RNA (RT-PCR) NEGATIVE Imaging Radiologist's Impressions: Impressions Chest X-Ray 10/11/24 14:35 IMPRESSION: Unremarkable chest examination. Electronically signed by: Cj Diaz MD 10/11/2024 03:03 PM [facility] Assessment and Plan (1) Dysphagia: Qualifiers: Dysphagia type: unspecified Qualified Code(s): R13.10 - Dysphagia, unspecified Status: Acute (2) Suprapubic catheter dysfunction: Status: Acute (3) Urinary tract infection: Qualifiers: Encounter type: initial encounter Indwelling urinary catheter type: i ndwelling urethral catheter Urinary tract infection type: catheter-associated UTI Qualified Code(s): T83.511A - Infection and inflammatory reaction due to indwelling urethral catheter, initial encounter; N39.0 - Urinary tract infection, site not specified Status: Acute Plan a 39-year-old male with a PMH significant for neuromyelitis optica spectrum disorder, neurogenic bladder with chronic suprapubic catheter in place, bed- bound at baseline, and hx of recurrent UTI?who presents to ED with worsening swallowing and weakness with cough and dyspnea. Dysphagia modified diet CARTRIDGE ASSEMBLER eval outpatient neurology follow up. can check neurology consult if worsens recurrent UTI Start Levaquin and Unasyn Pending U.Cx Neuromyelitis optica spectrum disorder Continue cyclobenzaprine, tizanidine Mood disorder Continue sertraline Full Code DVT Prophylaxis: Lovenox Quality Stroke Does the patient have a stroke diagnosis?: No VTE Prior VTE?: No VTE Risk Level:: Medical - moderate - high VTE Device Contraindication: Treatment Not Indicated VTE Drug Contraindication: N/A - Med Ordered
[2024-10-11] MEDS: levoFLOXacin/D5W 750 MG/150 ML PIGGYBACK 100 MG IV (17:04)
[2024-10-11] MEDS: Enoxaparin Sodium 40 MG/0.4 ML SYRINGE SUBCUT (17:04)
[2024-10-11] MEDS: Acetaminophen 325 MG TABLET 650 MG PO (18:28)
--- NOTE | 2024-10-11 18:36 | PHA.MEDREC ---
Pharmacy Consult ? Medication Reconciliation Pharmacy has completed the medication reconciliation. Spoke to patient through panama hat hydraulic press operator service. Patient states he is no longer taking Mrthenamine Hippurate 1 gm, Multivitamin. Patient syas he he finished one antibiotic he was prescribed, however he didn't know the name of the medication. Patient also states he was just prescribed two more antibiotics last week, however he didn't start them (patient can't remember the names). claims history has Cefpodxime 100 mg 09/12/24 for 5 days, Levofloxacin 750 mg 10/03/24 for 7 days, and Clindamycin 300 mg 10/04/24 for 7 days. Patient said he is no longer on Prednisone 20 mg, however patient is filling it consistently last fill was 09/08/24 for 30 days.
[2024-10-11 18:56] VITALS: BP 123/88; PULSE 103; RESP 18; TEMP 37.1; O2SAT 97
--- NOTE | 2024-10-11 18:59 | MHC.EDTECH ---
gave patient his dinner he is a total assist in meals
[2024-10-11 21:15] VITALS: BMI 25.6
[2024-10-11 21:34] VITALS: BP 117/79; PULSE 90; RESP 16; TEMP 36.4; O2SAT 100
[2024-10-11] MEDS: Ascorbic Acid 500 MG TABLET PO (21:44)
[2024-10-11] MEDS: Cyclobenzaprine HCl 10 MG TABLET PO (21:44)
[2024-10-11] MEDS: Ampicillin Sodium 2 GM in 0.9 % Sodium Chloride 100 ML IV (22:02)
[2024-10-11 23:40] VITALS: BP 121/79; PULSE 96; RESP 16; TEMP 36.8; O2SAT 98
[2024-10-12 03:40] VITALS: BP 131/80; PULSE 102; RESP 18; TEMP 37.2; O2SAT 98
[2024-10-12] MEDS: Ampicillin Sodium 2 GM in 0.9 % Sodium Chloride 100 ML IV ×2 (05:16→11:16)
[2024-10-12 06:37] LABS: MANUAL DIFF FLAG NO
[2024-10-12 06:47] LABS: Basophils Percent Auto 0.5 % (0-2); Eosinophils Absolute Auto 0.1 X10*3/uL (0.0-0.4); Hematocrit 37.7 % (42.0-52.0); Hemoglobin 12.1 g/dl (14.0-18.0); Imm Gran Abs Auto 0.03 X10*3/uL (0.00-0.03); Imm Gran Pct Auto 0.4 % (0.0-0.4); Lymphocytes Percent Auto 11.9 % (20-40); Mean Corpuscular HGB Conc 32.1 g/dl (31.0-36.0); Mean Corpuscular Hemoglobin 24.8 pg (27.0-33.0); Mean Corpuscular Volume 77.4 fL (80.0-98.0); Mean Platelet Volume 13.6 fL (9.4-12.4); Monocytes Absolute Auto 1.1 X10*3/uL (0.1-1.2); Monocytes Percent Auto 13.6 % (2-11); Neutrophils Absolute Auto 5.9 x10*3/uL (2.0-8.3); Neutrophils Percent Auto 72.6 % (45-73); Platelet Count 198 X10*3/uL (160-400); Red Blood Count 4.87 X10*6/uL (4.60-5.80); Red Cell Distribution Width 14.9 % (11.0-16.0); White Blood Count 8.1 X10*3/uL (4.8-10.8)
[2024-10-12 06:52] LABS: Anion Gap 12 (12-20); Blood Urea Nitrogen 6 mg/dL (9-16); Calcium 9.1 mg/dL (8.4-10.2); Carbon Dioxide 28 mmol/L (22-29); Chloride 104 mmol/L (96-108); Creatinine Clr Calc Pharmacy 163.6; Estimated Glomerular Filt Rate > 60; Glucose Random 94 mg/dL (60-115); Potassium 3.3 mmol/L (3.3-5.1); Sodium 141 mmol/L (135-145)
[2024-10-12 07:54] VITALS: BP 137/91; PULSE 97; RESP 14; TEMP 36.7; O2SAT 98
[2024-10-12] MEDS: Sertraline HCL 50 MG TABLET PO (09:24)
[2024-10-12] MEDS: Cyclobenzaprine HCl 10 MG TABLET PO ×2 (09:24→16:09)
[2024-10-12] MEDS: Cholecalciferol (Vitamin D3) 25 MCG TABLET 50 MCG PO (09:24)
[2024-10-12] MEDS: Ascorbic Acid 500 MG TABLET PO (09:24)
[2024-10-12 12:00] VITALS: BP 128/101; PULSE 94; RESP 16; TEMP 36.9; O2SAT 94
--- NOTE | 2024-10-12 12:41 | PM.DS ---
DS: Providers Provider Date of Service: 10/12/24 Date of admission: 10/11/24 16:15 Date of discharge: 10/12/24 Primary care physician: Ebenezer Leslie MD DS: Diagnosis Discharge Diagnosis (1) Dysphagia: Status: Acute (2) Urinary tract infection: Status: Acute DS: Summary Hospital Course Hospital Course: Admission note HPI a 39-year-old male with a PMH significant for neuromyelitis optica spectrum disorder, neurogenic bladder with chronic suprapubic catheter in place, bed-bound at baseline, and hx of recurrent UTI?who presents to ED with worsening swallowing and weakness with cough and dyspnea. The patient presenting with 1 week of worsening swallowing as he missed his monthly dose of (Steroid???) at [facility]. No chest pain, palpitations, SOB, nausea, vomiting, diarrhea or urinary symptoms. He reports he was not able to tolerate much of diet, he did not aspirate or chocked on food. He did not have this dysphagia problem before even if he missed his monthly injection. Will be admitted for further work up and observation. Hospital course # Dysphagia, seems around baseline as he was not interested in solid food per DOORPERSON OR LUGGAGE PORTER eval. he will be on NDD2 modified diet. DOORPERSON OR LUGGAGE PORTER evaluated the patient and recommended the NDD2 for now. outpatient neurology follow up. # recurrent UTI with suprapubic cath. Started Levaquin and Ampicillin given his hx of Enteroccus and Pseudomonas infections. To be discharged on Amoxcillin and Levaquin for 1 more week. # Neuromyelitis optica spectrum disorder, Continue cyclobenzaprine, tizanidine with a plan to follow up with [facility] neurology for outpatient monthly injection that he missed 1 week ago. Discharge plan Continue antibiotics as prescribed Follow with speech therapy as outpatient Follow with neurology as outpatient and try not to miss your scheduled injection therapy Consider GI outpatient follow up for motility studies. Time Attestation Discharge Coordination Time (in mins): 26 Quality: Safe Use of Opioids Does Pt have an Active Cancer Diagnosis on the Problem List?: No Quality: Stroke Does the patient have a stroke diagnosis?: No Physical Exam Vital Signs: Vital Signs: Last Vital Signs Temp 98.5 F 10/12/24 12:00 Pulse 94 10/12/24 12:00 Resp 16 10/12/24 12:00 BP 128/101 H 10/12/24 12:00 Pulse Ox 94 10/12/24 12:00 O2 Del Method Room Air 10/12/24 12:00 O2 Flow Rate 98 10/12/24 03:40 BMI result Body Mass Index 25.6 Const: Other: Constitutional : interactive, not in distress Cardiovascular : no JVP, no lower extremity edema Respiratory : bilateral chest movement, not in resp distress Gastrointestinal: soft, lax, Non tender Skin : Warm, Dry Neurological : Alert & oriented , paraplegic, bedbound , truncal and extremity weakness DS: Data Data Completed and Pending Completed studies during hospitalization [Text1]: Procedures Drainage of Bladder with Drainage Device, Percutaneous Endoscopic Approach (10/20/23) Introduction of Vasopressor into Peripheral Vein, Percutaneous Approach (04/05/23) Labs on day of discharge: Laboratory Results - last 24 hr 10/11/24 10/11/24 10/11/24 15:09 15:39 15:41 WBC 9.7 RBC 4.95 Hgb 12.3 L Hct 38.2 L MCV 77.2 L MCH 24.8 L MCHC 32.2 RDW 14.9 Plt Count 218 MPV 12.1 Immature Gran % (Auto) 0.2 Neut % (Auto) 77.3 H Lymph % (Auto) 9.8 L [place] % (Auto) 11.8 H Eos % (Auto) 0.6 Baso % (Auto) 0.3 Lymph # (Auto) 1.0 L Emanuel # (Auto) 1.1 Eos # (Auto) 0.1 Baso # (Auto) 0.0 Abs Immat Gran (auto) 0.02 Absolute Neuts (auto) 7.5 Absolute Nucleated RBC 0.000 Nucleated RBC % (auto) 0.0 Sodium 141 Potassium 3.7 Chloride 104 Carbon Dioxide 29 Anion Gap 12 BUN 6 L Creatinine 0.58 Estim Creat Clear Calc 169.3 Estimated GFR > 60 Random Glucose 95 Lactic Acid 1.0 Calcium 9.5 Magnesium 2.2 Total Bilirubin 0.2 Direct Bilirubin < 0.2 AST 14 ALT 10 Alkaline Phosphatase 63 Troponin I High Sens < 2.7 D B-Natriuretic Peptide < 10 Total Protein 7.6 Albumin 4.2 Lipase 20 Urine Color Yellow Urine Appearance Cloudy Urine pH 6.0 Ur Specific [place] 1.025 Urine Protein 100 (2+) H Urine Glucose (UA) Negative Urine Ketones Trace Urine Blood Small (1+) H Urine Nitrite Negative Ur Leukocyte Esterase Large (3+) H Urine RBC 6-10 H Urine WBC >50 H Ur Squamous Epith Cells 0-2 Urine Bacteria 4+ Hyaline Casts 0-2 Urine Yeast Present Influenza Type A (PCR) NEGATIVE Influenza Type B (PCR) NEGATIVE RSV RNA Qual (PCR) NEGATIVE SARS-CoV-2 RNA (RT-PCR) NEGATIVE 10/12/24 05:37 WBC 8.1 RBC 4.87 Hgb 12.1 L Hct 37.7 L MCV 77.4 L MCH 24.8 L MCHC 32.1 RDW 14.9 Plt Count 198 MPV 13.6 H Immature Gran % (Auto) 0.4 Neut % (Auto) 72.6 Lymph % (Auto) 11.9 L Emanuel % (Auto) 13.6 H Eos % (Auto) 1.0 Baso % (Auto) 0.5 Lymph # (Auto) 1.0 L Emanuel # (Auto) 1.1 Eos # (Auto) 0.1 Baso # (Auto) 0.0 Abs Immat Gran (auto) 0.03 Absolute Neuts (auto) 5.9 Absolute Nucleated RBC 0.000 Nucleated RBC % (auto) 0.0 Sodium 141 Potassium 3.3 Chloride 104 Carbon Dioxide 28 Anion Gap 12 BUN 6 L Creatinine 0.60 Estim Creat Clear Calc 163.6 Estimated GFR > 60 Random Glucose 94 Lactic Acid Calcium 9.1 Magnesium Total Bilirubin Direct Bilirubin AST ALT Alkaline Phosphatase Troponin I High Sens B-Natriuretic Peptide Total Protein Albumin Lipase Urine Color Urine Appearance Urine pH Ur Specific [place] Urine Protein Urine Glucose (UA) Urine Ketones Urine Blood Urine Nitrite Ur Leukocyte Esterase Urine RBC Urine WBC Ur Squamous Epith Cells Urine Bacteria Hyaline Casts Urine Yeast Influenza Type A (PCR) Influenza Type B (PCR) RSV RNA Qual (PCR) SARS-CoV-2 RNA (RT-PCR) Preliminary micro results at discharge 10/11/24 16:06 Urine Culture - Preliminary Urine Catheterized - Villatoro Catheter Culture in progress. Imaging Chest x-ray: Radiologist's impression: ITS Impressions Chest X-Ray 10/11/24 14:35 IMPRESSION: Unremarkable chest examination. Electronically signed by: Cj Diaz MD 10/11/2024 03:03 PM [facility] Discharge Plan Discharge Anticipated Discharge Date/Time: 10/12/24 12:35 Patient Disposition: Home Health Service Discharge Diagnosis: Swallowing problem UTI Referrals: [facility] [Outside] - 1 Week Name,MD Ebenezer [Primary Care Provider] - 1 Week Discharge Medications: New levofloxacin 750 mg tablet 750 mg PO DAILY Qty: 7 0RF amoxicillin 875 mg tablet 875 mg PO BID Qty: 14 0RF Continued (DME) syringe disposable, irrigation 60 mL syringe See Rx Instructions .Route Qty: 2 5RF Rx Instructions: As directed 2 per month ascorbic acid (vitamin C) [Vitamin C] 500 mg tablet 500 mg PO BID 90 Days Qty: 180 1RF (DME) Villatoro Catheter Tray Tray See Rx Instructions .Route Qty: 2 5RF Rx Instructions: As directed 2 per month (DME) [place] Urinary Drainage Bag Misc See Rx Instructions .Route Qty: 2 5RF Rx Instructions: As directed, 2 per month (DME) Urinary Leg Bag Misc See Rx Instructions .Route Qty: 4 5RF Rx Instructions: As directed, 4 per month. (DME) Villatoro Catheter 20 Fr misc See Rx Instructions .Route Qty: 2 5RF Rx Instructions: As directed, 2 per month. sertraline 50 mg tablet 50 mg PO DAILY clindamycin phosphate 1 % lotion 1 appl topical BID cyclobenzaprine 10 mg tablet 10 mg PO TID clotrimazole-betamethasone 1-0.05 % cream 1 appl topical BID cholecalciferol (vitamin D3) [Vitamin D3] 50 mcg (2,000 unit) capsule 50 mcg PO DAILY Discharge Orders: Discharge Order (Routine); Ordered 10/12/24 Ordered By: Finn Holguin Diet: Advance to usual diet Activity on Discharge: As tolerated Stand Alone Forms: Patient Portal Discharge page Print Language: Ukrainian Care Plan Goals: Continue antibiotics as prescribed Follow with speech therapy as outpatient Follow with neurology as outpatient and try not to miss your scheduled injection therapy Health Concerns: UTI Plan of Treatment: Antibiotics Assessment: as above Patient Instructions: Amoxicillin (By mouth), Levofloxacin (By mouth)
--- NOTE | 2024-10-12 14:24 | MHC.SL.DTX ---
Dysphagia Diet modifications: Last documented Solid diet consistencies: Chopped/Advanced (NDD3) Changes made to current diet?: Liquid Consistency and Strategies: Liquid Intake Recommendation: Thin Compensatory Strategies for Safe Swallow: Small Sips No Straws Compensatory Strategies for Safe Swallow(b): Solid Food Consistency: Dietary Recommendations: Chopped/Advanced (NDD3) Additional Modifications to Solids: ACADEMIC PROGRAM SPECIALIST recommending maintain current diet of Ground/Altered Solids (NDD2) and keep Thin Liquids. Pt will need assistance with tray set-up, but should be encouraged to self-feed. ACADEMIC PROGRAM SPECIALIST continues to follow. Recommend GI consult as an Outpatient and ACADEMIC PROGRAM SPECIALIST via [facility] services. Oral Medication Intake: Whole with Puree Foods to Avoid: Avoid tough solids and mixed consistencies Prognosis for Improvement: Good Recommendation for Speech: Inpatient Speech Therapy Comment: ACADEMIC PROGRAM SPECIALIST recommending maintain current diet of Ground/Altered Solids (NDD2) and keep Thin Liquids. Pt will need assistance with tray set-up, but should be encouraged to self-feed. ACADEMIC PROGRAM SPECIALIST continues to follow. Recommend GI consult as an Outpatient and ACADEMIC PROGRAM SPECIALIST via [facility] services. Frequency/Duration: Daily Date Range for Service Req: Admission Timeline to reassess: PRN Retail Training Manager Clinican/Clinical Fellow: No Supervisory Statement: I have reviewed and agree with the student/clinical fellow's documentation: N/A Speech Language Pathologist: Dalton Polk M.A., [facility]ACADEMIC PROGRAM SPECIALIST
[2024-10-12 15:50] VITALS: BP 138/91; PULSE 105; RESP 16; TEMP 36.4; O2SAT 99
[2024-10-12] MEDS: levoFLOXacin 750 MG TABLET PO (16:10)
[2024-10-12] MEDS: 0.9 % Sodium Chloride Flush 3 ML SYRINGE IVFLUSH (16:14)
--- NOTE | 2024-10-12 16:26 | MHC.CM.PN ---
Giulia 10/12/24 DX Weakness. Patient lives with his parents, brother and other family members. He is dependent with all aspects of care. He is active with [facility]. Per MD rounds he is ready to discharge home. [facility] has been notified to resume services. Patients family has been notified that he will return home via [employer] warehouse order picker booked.
== END 2024-10-12 17:13 | disposition home health service (06) ==
LOC: HO.ED 16:15 → HO.EDOVER 16:33 → HO.S3 19:32
PROVIDERS: Admitting Provider Student in an Organized Health Care Education/Training Program; Emergency Provider Emergency Medicine; PCP Internal Medicine Geriatric Medicine; Visit Provider Student in an Organized Health Care Education/Training Program
DX: R13.10 Dysphagia, unspecified (principal); N39.0 Urinary tract infection, site not specified; G36.0 Neuromyelitis optica [Devic]; T83.511A Infection and inflammatory reaction due to indwelling urethral catheter, initial encounter; Y73.1 Therapeutic (nonsurgical) and rehabilitative gastroenterology and urology devices associated with adverse incidents; Y92.9 Unspecified place or not applicable; Y93.9 Activity, unspecified; Y99.9 Unspecified external cause status; N31.9 Neuromuscular dysfunction of bladder, unspecified; Z46.6 Encounter for fitting and adjustment of urinary device; Z74.01 Bed confinement status; Z03.818 Encounter for observation for suspected exposure to other biological agents ruled out
CPT/HCPCS: 0241U; 36415; 71045; 80048; 80076; 81001; 83605; 83690; 83735; 83880; 84484; 85025; 87040; 87086; 87088; 87186; 92610; 93005; 96365; 96366; 96367; 96375; 99221; 99285; J0290; J1650; J1956; J2543

== ENCOUNTER → 2024-10-11 14:26 | Outpatient (BNV) | payer OTHER, SELFPAY | PROVIDERS: Admitting Provider Student in an Organized Health Care Education/Training Program; Emergency Provider Emergency Medicine; Visit Provider Internal Medicine Cardiovascular Disease | DX: R94.31 Abnormal electrocardiogram [ECG] [EKG] (principal) | CPT/HCPCS: 93010 ==

== ENCOUNTER → 2024-10-11 14:26 | Outpatient (BNV) | payer OTHER, SELFPAY | PROVIDERS: Emergency Provider Emergency Medicine; Visit Provider Radiology Diagnostic Radiology | DX: R06.00 Dyspnea, unspecified (principal); R05.9 Cough, unspecified | CPT/HCPCS: 71045 ==

== ENCOUNTER → 2024-10-11 16:15 | Outpatient (BNV) | payer OTHER, SELFPAY | PROVIDERS: Admitting Provider Student in an Organized Health Care Education/Training Program; Emergency Provider Emergency Medicine; Visit Provider Student in an Organized Health Care Education/Training Program | DX: R13.10 Dysphagia, unspecified (principal); T83.010A Breakdown (mechanical) of cystostomy catheter, initial encounter; T83.511A Infection and inflammatory reaction due to indwelling urethral catheter, initial encounter; N39.0 Urinary tract infection, site not specified | CPT/HCPCS: 99222 ==

== ENCOUNTER 2024-10-20 18:43 | Inpatient (IN) | payer OTHER, SELFPAY ==
[2024-10-20] VITALS (8 sets, daily range): BP systolic 110–139; BP diastolic 79–92; PULSE 118–130; RESP 16–22; TEMP 36.6–36.7; O2SAT 97–99; BMI 25.4
--- NOTE | 2024-10-20 | ECG_ITS ---
Test Reason : TACHYCARDIA Blood Pressure : */* mmHG Vent. Rate : 124 BPM Atrial Rate : * BPM P-R Int : * ms QRS Dur : 80 ms QT Int : 422 ms P-R-T Axes : * -5 79 degrees QTcB Int : 606 ms Normal sinus rhythm Cannot rule out Anterior infarct , age undetermined Abnormal ECG When compared with ECG of 11-Oct-2024 15:20, No significant changes seen Referred By: Generic ED Physician Electronically Signed By: TOAN FAM
--- NOTE | ~2024-10-20 | XR_ITS ---
EXAMINATION: XR CHEST CLINICAL INFORMATION: ? cough/choking episode COMPARISON: 10/21/2024 at 12:09 AM. 10/11/2024. TECHNIQUE: Frontal view of the chest was obtained. FINDINGS: No significant abnormality is noted involving the heart, lungs, mediastinum, bony thorax or soft tissues. XR/XR chest 1V IMPRESSION: No active pulmonary disease. Electronically signed by: Dusty Mcgrath MD 10/21/2024 04:10 PM [facility]
--- NOTE | ~2024-10-20 | XR_ITS ---
CLINICAL HISTORY: Tachycardic 1 view chest x-ray Comparison: CR/SR - XR CHEST 1V - 10/11/24 14:40 EST Findings: The lungs are clear. Normal size heart. No acute fracture. IMPRESSION: 1. No acute findings. This document has been electronically signed by: Wero Hernández MD on 10/21/2024 00:59:30
--- NOTE | 2024-10-20 20:21 | PC.NURSE ---
Addendum entered by Sparkle Chou 10/20/24 20:23: Lab draw also attempted by Kimani without success. Original Note: Patient is a difficult stick. Multiple attempts (3) by this RN, and 2 attempts by MAUREEN Hoyt without success. Patient arrived with EMS IV access, but IV access is non-functional, leaking. Attempted to salvage EMS IV, but was unsuccessful and IV access infiltrated. Unable to obtain labs or IV access. Patient is cool to touch, hx difficult IV access. Hollie REDDY to attempt IV access as well. Awaiting ED provider evaluation.
--- NOTE | 2024-10-20 21:09 | PC.NURSE ---
IV access to left hand by Jennie Blankenship RN. Labs drawn and sent for analysis. Awaiting results. Continue to await ED provider evaluation.
[2024-10-20 21:11] LABS: Hematocrit 40.9 % (42.0-52.0); Hemoglobin 13.8 g/dl (14.0-18.0); Mean Corpuscular HGB Conc 33.7 g/dl (31.0-36.0); Mean Corpuscular Hemoglobin 24.7 pg (27.0-33.0); Mean Corpuscular Volume 73.3 fL (80.0-98.0); Mean Platelet Volume 12.1 fL (9.4-12.4); Platelet Count 263 X10*3/uL (160-400); Red Blood Count 5.58 X10*6/uL (4.60-5.80); Red Cell Distribution Width 14.5 % (11.0-16.0)
[2024-10-20 21:17] LABS: INTERNATIONAL NORM RATIO 1.2 (0.9-1.1); Prothrombin Time 14.2 SEC (10.9-12.4)
[2024-10-20 21:32] LABS: WBC ABN SCTR FOR CBC 1
[2024-10-20 21:43] LABS: Basophils Percent Manual 1 % (0-2); Eosinophils Percent Manual 1 % (0-4); Lymphocytes Percent Manual 16 % (20-40); Monocytes Percent Manual 12 % (2-11); Neutrophils Percent Manual 70 % (45-73)
[2024-10-20 21:45] LABS: Band Neutrophils Percent 0 % (3-5); Basophils Abs Manual 0.1 X10*3/uL (0.0-0.2); Eosinophils Absolute Manual 0.1 X10*3/uL (0.0-0.4); Lymphocytes Absolute Manual 2.3 X10*3/uL (1.2-4.9); Monocytes Absolute Manual 1.7 X10*3/uL (0.1-1.2); Neutrophils Absolute Manual 9.9 X10*3/uL (2.0-8.3); Platelet Estimate NORMAL (NORMAL); Platelet Morphology Comment NORMAL; RBC Morphology NORMAL; White Blood Count 14.1 X10*3/uL (4.8-10.8)
[2024-10-20 22:09] LABS: Anion Gap 17 (12-20); Blood Urea Nitrogen 10 mg/dL (9-16); Calcium 9.1 mg/dL (8.4-10.2); Carbon Dioxide 26 mmol/L (22-29); Chloride 98 mmol/L (96-108); Creatinine Clr Calc Pharmacy 175.3; Estimated Glomerular Filt Rate > 60; Glucose Random 98 mg/dL (60-115); Potassium 3.2 mmol/L (3.3-5.1); Sodium 138 mmol/L (135-145)
--- NOTE | 2024-10-20 22:17 | PC.NURSE ---
Repeat labs drawn and sent at 21:50. Results pending. Some of previous labs hemolyzed.
[2024-10-20 22:19] LABS: Troponin-I High Sensitivity < 2.7 ng/L (<3.5-35.0)
[2024-10-20 23:52] LABS: D Dimer High Sensitivity 211 NG/ML
[2024-10-21] VITALS (16 sets, daily range): BP systolic 120–149; BP diastolic 80–100; PULSE 109–132; RESP 16–24; TEMP 36.4–37.2; O2SAT 92–99
--- NOTE | 2024-10-21 | ED_ITS ---
HPI - General Adult General Chief complaint: Arrhythmia/Palpitations Stated complaint: HR 130 Time Seen by Provider: 10/20/24 23:44 Source: patient, EMS, old records reviewed and patient observation assistant Mode of arrival: EMS Limitations: no limitations History of Present Illness ED Provider: DR. Bernal HPI narrative: 39-year-old male with past medical history is significant for neuromyelitis optica spectrum disorder, neurogenic bladder with chronic suprapubic catheter in place, bed-bound at baseline, history of recurrent UTI came in for evaluation of persistent palpitation and tachycardia for the past 2 days, recently just finished a course of amoxicillin and Levaquin for treating UTI. No coughing, no shortness of breath, no chest pain, no abdominal pain, no nausea, no vomiting. Related Data Home Medications ?Medication ?Instructions ?Recorded ?Confirmed sertraline 50 mg tablet 50 mg PO DAILY 02/22/24 10/11/24 clindamycin phosphate 1 % lotion 1 appl topical BID 09/10/24 10/11/24 cholecalciferol (vitamin D3) 50 50 mcg PO DAILY 10/11/24 10/11/24 mcg (2,000 unit) capsule (Vitamin D3) clotrimazole-betamethasone 1 1 appl topical BID 10/11/24 10/11/24 %-0.05 % topical cream cyclobenzaprine 10 mg tablet 10 mg PO TID 10/11/24 10/11/24 Previous Rx's ?Medication ?Instructions ?Recorded syringe disposable, irrigation 60 #2 ea 01/06/24 mL ascorbic acid (vitamin C) 500 mg 500 mg PO BID 90 days #180 tabs 05/12/24 tablet (Vitamin C) catheter 20 Fr (Villatoro Catheter) #2 ea 08/19/24 catheterization tray (Villatoro #2 ea 08/19/24 Catheter Tray) urinary bag (Bardia Urinary #2 ea 08/19/24 Drainage Bag) urinary bag (Urinary Leg Bag) #4 ea 08/19/24 amoxicillin 875 mg tablet 875 mg PO BID #14 tabs 10/12/24 levofloxacin 750 mg tablet 750 mg PO DAILY #7 tabs 10/12/24 Allergies Allergy/AdvReac Type Severity Reaction Status Date / Time doxycycline Allergy Rash Verified 10/20/24 19:24 Review of Systems 2 Review of Systems: All other systems are reviewed and are negative Constitutional: Reports as per HPI and Reports no additional constitutional complaints Eyes: Reports as per HPI and Reports no additional eye complaints Reports system reviewed and no additional complaints, except as documented Cardiovascular: Reports as per HPI and Reports no additional cardiovascular complaints Respiratory: Reports as per HPI and Reports no additional respiratory complaints Gastrointestinal: Reports as per HPI and Reports no additional gastrointestinal complaints Genitourinary: Reports no additional female genitourinary complaints Musculoskeletal: Reports no additional musculoskeletal complaints Skin/Breast: Reports system reviewed and no additional complaints, except as docu Psychiatric: Reports no additional psychiatric complaints Endocrine: Reports no additional endocrine complaints Hematologic/Lymphatic: Reports no additional hematologic/lymphatic complaints Allergic/Immunologic: Reports no additional allergic/immunologic complaints Reports system reviewed and no additional complaints, except as documented and Reports Abnormal speech present [facility] Past Medical History Medical History Dysphagia Suprapubic catheter dysfunction Urinary tract infection 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 Microcytic anemia Multiple sclerosis Headache Surgical History H/O hernia repair Family History Family History Other No family history of coronary artery disease Social History Social History Household Members: Family Household Members Other:: parents Housing: Apartment 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 have 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) Unable to assess alcohol history related to: Unknown Alcohol intake: never Patient Tobacco Use Status: Former Tobacco user Tobacco use type: Cigarette Cigarettes Per Day: 0.25 Substance Use Type: Marijuana Advance Directives: Yes Advance Directives on File: Yes Advance Directives Date on File: 08/21/22 service: No Current occupational status: disabled Physical Exam ED Vital Signs: Vital Signs - 24 hr 10/20/24 19:10 10/20/24 20:00 10/20/24 22:00 Temperature 97.9 F 97.8 F 98.0 F Pulse Rate 130 H 126 H 120 H Respiratory Rate 18 22 H 18 Blood Pressure 110/82 122/79 139/91 H Pulse Oximetry 97 97 97 Oxygen Delivery Method Room Air Room Air Room Air BMI result Body Mass Index 25.4 Vital signs have been reviewed and appear to be correct. Blood pressure elevated. Heart rate elevated. Respiratory rate normal. Temperature normal. Oxygen saturation normal. Appearance: Alert. Oriented X3. No acute distress. Head: Normal external exam. Normocephalic. Atraumatic. No Arnett signs noted. No raccoon eyes noted Eyes: PERRLA. EOMI. Conjunctiva and sclera normal. Eyelids normal. ENT: TM's Normal. Pharynx normal. Uvula midline. Moist mucous membranes. No trismus noted. No drooling noted. No muffled voice noted. Neck: Normal inspection. Neck supple. FROM. No adenopathy. Thyroid Normal. No meningeal signs. No neck mass noted. CVS: Normal heart rate and rhythm. Heart sound normal. No murmurs noted. Pulses normal throughout. Respiratory: No respiratory distress. Painless inspiration. Breath sounds normal. No wheezes/rales/rhonchi noted. Chest nontender. No accessory muscle usage noted or decreased air movement noted. Abdomen: Soft and nontender. Bowel sounds normal in all 4 quadrants. No distention noted. No organomegaly noted. No visible injury noted. Back: No CVA tenderness. Full range of motion noted. Skin: Skin warm and dry. Normal skin color. Normal skin turgor. No rashes/lesions/lacerations noted. Extremities: No lower extremity edema. Extremities exhibit normal range of motion. Extremities nontender. Neuro: Oriented X 3. Course Reevaluation(s) Reevaluation #1: Sepsis is expected now, will start IV hydration and IV antibiotic, will check lactic acid and cultures. Time: 00:07 Medical Decision Making Differential Diagnosis Differential Diagnoses: The differential diagnosis associated with the presentation includes (UTI, pneumonia, dehydration, electrolyte derangement, severe anemia, dysrhythmia.) Admission/Observation Consideration of admission/observation: Escalation of care including admission/observation considered Lab Data MDM Lab Attestation statement: I reviewed the patient's lab results. 10/20/24 21:03 10/20/24 21:50 Labs: Lab Results 10/20/24 10/20/24 Range/Units 21:03 21:50 WBC 14.1 H (4.8-10.8) X10*3/uL RBC 5.58 (4.60-5.80) X10*6/uL Hgb 13.8 L (14.0-18.0) g/dl Hct 40.9 L (42.0-52.0) % MCV 73.3 L (80.0-98.0) fL MCH 24.7 L (27.0-33.0) pg MCHC 33.7 (31.0-36.0) g/dl RDW 14.5 (11.0-16.0) % Plt Count 263 D (160-400) X10*3/uL MPV 12.1 (9.4-12.4) fL Immature Gran % (Auto) Cancelled Neut % (Auto) Cancelled Lymph % (Auto) Cancelled [place] % (Auto) Cancelled Eos % (Auto) Cancelled Baso % (Auto) Cancelled Lymph # (Auto) Cancelled [place] # (Auto) Cancelled Eos # (Auto) Cancelled Baso # (Auto) Cancelled Abs Immat Gran (auto) Cancelled Absolute Neuts (auto) Cancelled Absolute Nucleated RBC 0.000 (0.0-0.012) X10*3/uL Nucleated RBC % (auto) 0.0 (0.0-0.2) /100WBC Neutrophils % (Manual) 70 (45-73) % Band Neutrophils % 0 L (3-5) % Lymphocytes % (Manual) 16 L (20-40) % Monocytes % (Manual) 12 H (2-11) % Eosinophils % (Manual) 1 (0-4) % Basophils % (Manual) 1 (0-2) % Abs Neuts (Manual) 9.9 H (2.0-8.3) X10*3/uL Lymphocytes # (Manual) 2.3 (1.2-4.9) X10*3/uL Monocytes # (Manual) 1.7 H (0.1-1.2) X10*3/uL Eosinophils # (Manual) 0.1 (0.0-0.4) X10*3/uL Basophils # (Manual) 0.1 (0.0-0.2) X10*3/uL Platelet Estimate NORMAL (NORMAL) Plt Morphology Comment NORMAL RBC Morphology NORMAL PT 14.2 H (10.9-12.4) SEC INR 1.2 H (0.9-1.1) D-Dimer High Sensitivty 211 NG/ML Sodium 138 (135-145) mmol/L Potassium 3.2 L (3.3-5.1) mmol/L Chloride 98 (96-108) mmol/L Carbon Dioxide 26 (22-29) mmol/L Anion Gap 17 (12-20) BUN 10 (9-16) mg/dL Creatinine 0.56 (0.5-1.4) mg/dL Estim Creat Clear Calc 175.3 Estimated GFR > 60 Random Glucose 98 (60-115) mg/dL Calcium 9.1 (8.4-10.2) mg/dL Troponin I High Sens < 2.7 (<3.5-35.0) ng/L Independent Interpretation I performed an independent interpretation of an: EKG (Sinus tachycardia at 01:24, no significant change from previous EKG.) and Plain X-Ray (Chest: No acute intrathoracic pathology.) Radiology Impression Discussion of test interpretation with radiology: I have reviewed the radiologist's reading. Discharge Plan Discharge Clinical Impression: Acute UTI, Sepsis Patient Disposition: Still a Patient Prescriptions: No Action (DME) syringe disposable, irrigation 60 mL syringe See Rx Instructions .Route Qty: 2 5RF Rx Instructions: As directed 2 per month ascorbic acid (vitamin C) [Vitamin C] 500 mg tablet 500 mg PO BID 90 Days Qty: 180 1RF (DME) Villatoro Catheter Tray Tray See Rx Instructions .Route Qty: 2 5RF Rx Instructions: As directed 2 per month (DME) Bardia Urinary Drainage Bag Misc See Rx Instructions .Route Qty: 2 5RF Rx Instructions: As directed, 2 per month (DME) Urinary Leg Bag Misc See Rx Instructions .Route Qty: 4 5RF Rx Instructions: As directed, 4 per month. (DME) Villatoro Catheter 20 Fr misc See Rx Instructions .Route Qty: 2 5RF Rx Instructions: As directed, 2 per month. sertraline 50 mg tablet 50 mg PO DAILY clindamycin phosphate 1 % lotion 1 appl topical BID cyclobenzaprine 10 mg tablet 10 mg PO TID clotrimazole-betamethasone 1-0.05 % cream 1 appl topical BID cholecalciferol (vitamin D3) [Vitamin D3] 50 mcg (2,000 unit) capsule 50 mcg PO DAILY levofloxacin 750 mg tablet 750 mg PO DAILY Qty: 7 0RF amoxicillin 875 mg tablet 875 mg PO BID Qty: 14 0RF Print Language: Argentine
[2024-10-21 01:29] LABS: Lactic Acid 1.4 mmol/L (0.5-2.0)
[2024-10-21] MEDS: cefTRIAXone sodium 1 GM VIAL IVPUSH (01:30)
[2024-10-21] MEDS: 0.9 % Sodium Chloride 1,000 ML 999 ML IV (01:30)
[2024-10-21 01:49] LABS: Appearance Urine Turbid; Color Urine Dark Yellow; Glucose Urine UA Negative (Negative); Leukocyte Esterase Urine Large (3+) (Negative); Nitrite Urine Negative (Negative); Specific Gravity - Urine >= 1.030 (1.005-1.025); UMIC TRIGGER UACC YES; Urine Blood Large (3+) (Negative); Urine Ketones 15 mg/dL (Negative); Urine Protein 300 (3+) mg/dL (Neg-Trace)
--- NOTE | 2024-10-21 01:51 | PC.NURSE ---
Patient has been under this RN's care since EMS arrival. As stated in previous RN notes, patient required multiple IV/difficult stick attempts, largely without success. Patient remained tachycardic 120s-130s on soap worker, but was otherwise stable and denying complaints. Patient has a suprapubic catheter in place (was in place upon arrival, last changed on 10/12/2024 per patient statement). This RN spoke with provider (PIPER Vaughn) to notify regarding ongoing difficulty obtaining labs & IV access and concerns due to the fact that a provider hadn't signed up to evaluate the patient. As previously documented, this patient had some labs that were hemolyzed and redrawn without repeat hemolysis. At 23:44, Dr. Bernal was finally able to evaluate the patient and ordered a Add On Laboratory order for D-Dimer, which was electronically acknowledged at 23:46 in [place]. This RN called lab to confirm the ability to obtain D-Dimer from previously sent labs, to which lab staff reported yes, we're processing it now . This RN went to bedside to speak with the patient who continued to deny overall complaints, but requested assistance with repositioning. This RN drained the patient's urinary leg bag, which drained 300 mL of dark concentrated urine around 00:15. This RN then spoke with Dr. Bernal to request if he would like the leg bag to be changed to a larger burciaga catheter bag to be hung/secured below the level of the patient. Dr. Bernal stated that he wanted to change the suprapubic catheter. This RN gathered the supplies required for this procedure and went to bedside to assist Dr. Bernal with this procedure. Despite best efforts, Dr. Bernal was unable to change the suprapubic catheter due to resistance upon attempted removal. Dr. Bernal then stated okay, we'll leave it in place, I don't want to cause further damage, but if you can change the leg bag to a burciaga bag and tubing and collect a urine sample, that would be great . At about 00:50, I was verbally notified by Dr. Bernal that he had entered and 'initiated' a sepsis workup including ordering a lactic acid, blood cultures x2, BNP, Normal Saline, & Ceftriaxone. After assisting Dr. Bernal at the bedside, I logged into the computer, and realized that orders were entered at 00:01, and there was no notification verbally, overhead, or otherwise. This RN viewed/acknowledged the order at 00:55 and yoshi labs and administered medications to the best of this RN's ability. I was able to obtain additional IV access to left AC (22g). Left hand IV remains patent and in place. Difficulty obtaining 2nd blood cultures, but they were obtained on the 2nd stick by this RN. 1st stick was by [facility] PCT. This RN confirmed with battery charger (Danyelle Sim) and community arts officer that a sepsis alert was not initiated, and therefore, not announced overhead when ordered or while this RN & Dr. Bernal were attempting replacement of suprapubic catheter. These multiple factors resulted in delay of sepsis alert care per [facility] [place]. Sepsis alert was called at 00:55 overhead by community arts officer, and protocol continues at this time. Care ongoing by this RN.
[2024-10-21 01:55] LABS: Influenza A PCR NEGATIVE (Negative); Influenza B PCR NEGATIVE (Negative); Resp Syncy Virus RNA Qual PCR NEGATIVE (Negative); SARS COV2 PCR INHOUSE NEGATIVE (Negative)
[2024-10-21 02:00] LABS: Bacteria Urine Trace (None Seen); Calcium Oxalate Crystals Urine Present; Hyaline Casts Urine >20 /LPF (0-2); RBC Urine >20 /HPF (0-2); UACC Culture Trigger YES; WBC Urine >50 /HPF (0-5)
[2024-10-21 02:17] LABS: B Type Natriuretic Peptide < 10 pg/mL (<100)
--- NOTE | 2024-10-21 02:27 | PM.IMHP ---
History of Present Illness Date of Service: 10/21/24 Chief Complaint: Tachycardia This is a 39-year-old male with pertinent history of neuromyelitis optica spectrum disorder with neurogenic bladder and chronic suprapubic catheter, bed-bound, history of recurrent urinary tract infections, mood disorder who presents to the emergency department for tachycardia and change in color of urine. Patient states he has been having palpitations for the last 2 days, intermittent. He was recently admitted to the hospital and evaluated for dysphagia, DENTAL HYGIENE ADMINISTRATIVE ASSISTANT recommended NDD2 foods. Noticed change in odor and color of urine. No fever, chills, nausea, vomiting, chest discomfort, palpitations, shortness of breath, changes in bowel habits. In the emergency department, suprapubic catheter could not be replaced. Patient was septic and urine concerning for UTI. Review of Systems Constitutional: Constitutional: Reports no additional constitutional complaints Cardiovascular: Cardiovascular: Reports rapid heart rate Respiratory: Respiratory: Reports no additional respiratory complaints Genitourinary: Genitourinary: Reports no additional male genitourinary complaints [facility] Medical History Dysphagia Suprapubic catheter dysfunction Urinary tract infection 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 Microcytic anemia Multiple sclerosis Headache Family History Other No family history of coronary artery disease Surgical History H/O hernia repair Social History Household Members: Family Household Members Other:: parents Housing: Apartment 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 have visiting 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 or 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) Unable to assess alcohol history related to: Unknown Alcohol intake: never Patient Tobacco Use Status: Former Tobacco user Tobacco use type: Cigarette Cigarettes Per Day: 0.25 Substance Use Type: Marijuana Advance Directives: Yes Advance Directives on File: Yes Advance Directives Date on File: 08/21/22 service: No Current occupational status: disabled Meds Allergies Allergy/AdvReac Type Severity Reaction Status Date / Time doxycycline Allergy Rash Verified 10/20/24 19:24 Active Medications: Current Medications Potassium Chloride (Potassium Chloride/H20) 10 meq in 100 mls @ 100 mls/hr IV ONCE ONE Stop: 10/21/24 02:53 Home Medications ?Medication ?Instructions ?Recorded ?Confirmed ?Last Taken ?Type sertraline 50 mg tablet 50 mg PO DAILY 02/22/24 10/11/24 10/10/24 History clindamycin phosphate 1 % lotion 1 appl topical BID 09/10/24 10/11/24 10/10/24 History cholecalciferol (vitamin D3) 50 50 mcg PO DAILY 10/11/24 10/11/24 10/10/24 History mcg (2,000 unit) capsule (Vitamin D3) clotrimazole-betamethasone 1 1 appl topical BID 10/11/24 10/11/24 10/10/24 History %-0.05 % topical cream cyclobenzaprine 10 mg tablet 10 mg PO TID 10/11/24 10/11/24 10/10/24 History Physical Exam Vital Signs and Narrative: Vital Signs: Last Vital Signs Temp 97.5 F 10/21/24 02:09 Pulse 114 H 10/21/24 02:09 Resp 18 10/21/24 02:09 BP 131/84 10/21/24 02:09 Pulse Ox 98 10/21/24 02:09 O2 Del Method Room Air 10/21/24 02:09 BMI result Body Mass Index 25.4 Middle-aged male lying in bed in no distress Neck supple, no JVD Regular rate and rhythm, S1-S2 heard Regular breath sounds bilaterally, no wheezing or crackles appreciated Abdomen soft nontender, no guarding, no rigidity, suprapubic catheter in place Patient is awake, alert and oriented x3 ; spasticity present Psych: Normal mood No pedal edema Results Labs 10/20/24 21:03 10/20/24 21:50 Labs: Laboratory Results - last 24 hr 10/20/24 10/20/24 10/21/24 21:03 21:50 01:10 MCV 73.3 L MCH 24.7 L MCHC 33.7 RDW 14.5 Plt Count 263 D MPV 12.1 Immature Gran % (Auto) Cancelled Neut % (Auto) Cancelled Lymph % (Auto) Cancelled [place] % (Auto) Cancelled Eos % (Auto) Cancelled Baso % (Auto) Cancelled Lymph # (Auto) Cancelled [place] # (Auto) Cancelled Eos # (Auto) Cancelled Baso # (Auto) Cancelled Abs Immat Gran (auto) Cancelled Absolute Neuts (auto) Cancelled Absolute Nucleated RBC 0.000 Nucleated RBC % (auto) 0.0 Neutrophils % (Manual) 70 Band Neutrophils % 0 L Lymphocytes % (Manual) 16 L Monocytes % (Manual) 12 H Eosinophils % (Manual) 1 Basophils % (Manual) 1 Abs Neuts (Manual) 9.9 H Lymphocytes # (Manual) 2.3 Monocytes # (Manual) 1.7 H Eosinophils # (Manual) 0.1 Basophils # (Manual) 0.1 Platelet Estimate NORMAL Plt Morphology Comment NORMAL RBC Morphology NORMAL PT 14.2 H INR 1.2 H D-Dimer High Sensitivty 211 Anion Gap 17 Estim Creat Clear Calc 175.3 Estimated GFR > 60 Random Glucose 98 Lactic Acid 1.4 Calcium 9.1 Troponin I High Sens < 2.7 B-Natriuretic Peptide Urine Color Urine Appearance Urine pH Ur Specific [place] Urine Protein Urine Glucose (UA) Urine Ketones Urine Blood Urine Nitrite Ur Leukocyte Esterase Urine RBC Urine WBC Ur Squamous Epith Cells Calcium Oxalate Crystal Urine Bacteria Hyaline Casts Urine Yeast Influenza Type A (PCR) Influenza Type B (PCR) RSV RNA Qual (PCR) SARS-CoV-2 RNA (RT-PCR) 10/21/24 10/21/24 10/21/24 01:13 01:24 01:41 MCV MCH MCHC RDW Plt Count MPV Immature Gran % (Auto) Neut % (Auto) Lymph % (Auto) [place] % (Auto) Eos % (Auto) Baso % (Auto) Lymph # (Auto) [place] # (Auto) Eos # (Auto) Baso # (Auto) Abs Immat Gran (auto) Absolute Neuts (auto) Absolute Nucleated RBC Nucleated RBC % (auto) Neutrophils % (Manual) Band Neutrophils % Lymphocytes % (Manual) Monocytes % (Manual) Eosinophils % (Manual) Basophils % (Manual) Abs Neuts (Manual) Lymphocytes # (Manual) Monocytes # (Manual) Eosinophils # (Manual) Basophils # (Manual) Platelet Estimate Plt Morphology Comment RBC Morphology PT INR D-Dimer High Sensitivty Anion Gap Estim Creat Clear Calc Estimated GFR Random Glucose Lactic Acid Calcium Troponin I High Sens B-Natriuretic Peptide < 10 Urine Color Dark Yellow Urine Appearance Turbid Urine pH 6.0 Ur Specific [place] >= 1.030 H Urine Protein 300 (3+) H Urine Glucose (UA) Negative Urine Ketones 15 Urine Blood Large (3+) H Urine Nitrite Negative Ur Leukocyte Esterase Large (3+) H Urine RBC >20 H Urine WBC >50 H Ur Squamous Epith Cells 3-5 Calcium Oxalate Crystal Present Urine Bacteria Trace Hyaline Casts >20 Urine Yeast Present Influenza Type A (PCR) NEGATIVE Influenza Type B (PCR) NEGATIVE RSV RNA Qual (PCR) NEGATIVE SARS-CoV-2 RNA (RT-PCR) NEGATIVE Assessment and Plan (1) Sepsis: Status: Acute (2) Acute UTI: Status: Acute Plan This is a 38-year-old male with 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 #. Sepsis due to acute complicated UTI, recurrent: Resuscitated with IV crystalloids. Lactic acid and blood culture obtained. Reviewed previous urine culture. Does have a history of Enterococcus and Pseudomonas. Initiating empiric IV cefepime and ampicillin. Follow urine cultures. Consulting ID #. Tachycardia in the setting of above: improved with fluid resuscitation and antibiotics #. Mood disorder: On sertraline #. Neuromyelitis optica spectrum disorder: On cyclobenzaprine and baclofen #. Dysphagia: Evaluated by DENTAL HYGIENE ADMINISTRATIVE ASSISTANT during previous hospitalization. On NDD2 foods Med rec pending DVT prophylaxis: Lovenox Full code Admit as inpatient and will require two night minimum hospital stay for IV antibiotics (as above), which is not possible in a lesser acute setting. Specialist consult pending Quality Stroke Does the patient have a stroke diagnosis?: No VTE Prior VTE?: No VTE Risk Level:: Medical - moderate - high VTE Device Contraindication: Treatment Not Indicated VTE Drug Contraindication: N/A - Med Ordered
[2024-10-21] MEDS: Enoxaparin Sodium 40 MG/0.4 ML SYRINGE SUBCUT (03:08)
[2024-10-21] MEDS: Potassium Chloride/H20 10 MEQ/100 ML PIGGYBACK 100 MEQ IV (03:08)
--- NOTE | 2024-10-21 03:49 | PC.NURSE ---
This tech writer assumed care of this Pt at 0300. Pt A&Ox3, denies any pain. Pt primarily Martiniquais speaking, slurred speech at baseline. Pt 1:1 feed. Pt changed over to hospital attire and repositioned. Buttocks chapped, no open areas noted. SPC in place, draining small amounts of urine.
[2024-10-21] MEDS: Potassium Chloride Packet 20 MEQ PACKET 40 MEQ PO (03:51)
[2024-10-21] MEDS: Ampicillin Sodium 2 GM in 0.9 % Sodium Chloride 100 ML IV ×5 (04:19→20:39)
[2024-10-21] MEDS: cefEPime HCl/D5W 2 GM/50 ML PIGGYBACK IV ×3 (04:49→23:06)
[2024-10-21 05:54] LABS: Hematocrit 40.3 % (42.0-52.0); Mean Corpuscular HGB Conc 32.3 g/dl (31.0-36.0); Mean Corpuscular Hemoglobin 24.5 pg (27.0-33.0); Mean Platelet Volume 12.8 fL (9.4-12.4); Platelet Count 266 X10*3/uL (160-400); Red Cell Distribution Width 14.7 % (11.0-16.0); White Blood Count 12.8 X10*3/uL (4.8-10.8)
[2024-10-21 06:07] LABS: Anion Gap 15 (12-20); Blood Urea Nitrogen 9 mg/dL (9-16); Calcium 9.3 mg/dL (8.4-10.2); Carbon Dioxide 26 mmol/L (22-29); Chloride 101 mmol/L (96-108); Creatinine Clr Calc Pharmacy 148.7; Estimated Glomerular Filt Rate > 60; Glucose Random 115 mg/dL (60-115); Potassium 3.8 mmol/L (3.3-5.1); Sodium 138 mmol/L (135-145)
[2024-10-21] MEDS: 0.9 % Sodium Chloride Flush 3 ML SYRINGE IVFLUSH (08:14)
[2024-10-21] MEDS: Methenamine Hippurate 1 GM TABLET PO (11:43)
[2024-10-21] MEDS: Sertraline HCL 50 MG TABLET PO (11:44)
[2024-10-21] MEDS: Cholecalciferol (Vitamin D3) 25 MCG TABLET 50 MCG PO (11:44)
[2024-10-21] MEDS: predniSONE 20 MG TABLET PO (11:45)
[2024-10-21] MEDS: Ascorbic Acid 500 MG TABLET PO (11:45)
[2024-10-21] MEDS: Cyclobenzaprine HCl 10 MG TABLET PO ×2 (11:46→14:05)
[2024-10-21] MEDS: guaiFENesin LA 600 MG TAB.ER.12H PO (11:48)
[2024-10-21] MEDS: Loratadine 10 MG TABLET PO (11:48)
--- NOTE | 2024-10-21 12:43 | PC.NURSE ---
Pt tolerated meds well with applesauce, one at a time, with small sips of apple juice after, reports this is how he normally takes pills.
--- NOTE | 2024-10-21 12:47 | PC.NURSE ---
Pt needs assistance with clearing secretions/ cough, prefers to lean forward and cough, utilize yankuer suction to help clear oropharynx
--- NOTE | 2024-10-21 13:44 | MHC.CM.PN ---
IMM 10/21/24, Pt lives with his parents, he is dependent for all care and has [facility]. He will go home via BLS. CM met with him along with an lab instructor. DCP: home with VNA. PCP is Dr. Leslie, HCP names his brother, pt said that he has . CM asked about completing new HCP, could not understand pt.'s response, will re-approach pt on this. CM to follow for DC needs.
[2024-10-21] MEDS: Nystatin/Triamcinolone Cream 15 GM TUBE 1 APPL TOPICAL (14:03)
--- NOTE | 2024-10-21 15:04 | PC.NURSE ---
this float RN was double triaging the waiting room when a tech who was 1:1 feeding him yelled out into the hallway for assistance. while pt was receiving 1:1 feed, pt noted to be choking on ground turkey and mashed potatoes. pt immediately sat upright. pt independently coughed up contents of lunch. pt deep suctioned. 100% on RA. pt in no respiratory distress. no sob/wob noted. respirations even/unlabored. lungs CTA upon auscultation. pt remains sitting upright to promote patent airway. primary RN notified/aware.
--- NOTE | 2024-10-21 15:33 | P.EN_ITS ---
Event Note Date of Service: 10/21/24 Event Note: This patient is seen and examined. admitted for sepsis sec reccurrent uti tachycardia similar had one coughing/chocking episode with food. Physical exam : Similar Chest: Air entry is fair ,no rales wheezing simialr as h&P assessment and plan coordinated in APCs note, Agree with the plan in addition: We repeated chest x-ray and suction for choking episode patient is comfortable- does not seems to be an shortness of breath or any chest pain or any cough Placed NPO order, speech and swallow to see in the morning. IV fluids. Recurrent UTIs-continue IV antibiotics. Id evaluation. Time Spent With Patient Time: Total time managing care of this patient today ____ minutes.
[2024-10-21] MEDS: Lactated Ringers 1,000 ML 100 ML IVCONT (15:39)
--- NOTE | 2024-10-21 15:45 | PC.NURSE ---
This RN returned and got update from float RN about what happened with choking incident. See tech note for episode, was doing 1:1 feed. Pt is now alert and at his baseline, clearing his secretions with some help from portia. Sats >92% on RA, vitals documented. Provider updated on situation and orders placed, plan to be NPO at this time until speech can re-eval
--- NOTE | 2024-10-21 16:16 | MHC.EDTECH ---
During 1:1 feed PT started to choke on mash potatoes. I called out for help and that is when another tech and nurse came into assist. PT was fine after we used the suction on him.
--- NOTE | 2024-10-21 16:44 | PC.NURSE ---
Pt resting comfortably in bed, no signs of SOB or distress. Denies pain or distress when asked. >95% on RA
--- NOTE | 2024-10-21 17:45 | P.CNUR_ITS ---
History of Present Illness Consult details Consult date: 11/17/24 Narrative: CC: UTI in setting of chronic suprapubic tube catheter Patient known to Urology Last seen 12/02/2023 Progressive MS Villatoro catheter placed for prior recurrent urinary tract infections Has presented multiple times over past 10 months for catheter related issues Should have been up sized to a 20 Romansh Villatoro catheter by [facility] Will switch from methenamine vitamin-C chemo prophylaxis to daily Bactrim Last culture - E coli - Cipro and ampicillin resistant Review of Systems 2 Constitutional: Constitutional: Reports as per HPI and Reports no additional constitutional complaints Cardiovascular: Cardiovascular: Reports as per HPI and Reports no additional cardiovascular complaints Respiratory: Respiratory: Reports as per HPI and Reports no additional respiratory complaints Gastrointestinal: Gastrointestinal: Reports as per HPI and Reports no additional gastrointestinal complaints Genitourinary: Genitourinary: Reports as per HPI Musculoskeletal: Musculoskeletal: Reports no additional musculoskeletal complaints and Reports as per HPI Neurologic: Reports system reviewed and no additional complaints, except as documented and Reports as per HPI PMFSH Past Medical History Medical History (Updated 10/21/24 @ 17:50 by Miki Cao MD) Neurogenic urinary bladder disorder Dysphagia Suprapubic catheter dysfunction Urinary tract infection 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 Microcytic anemia Multiple sclerosis Headache Family History Family History Other No family history of coronary artery disease Surgical History Surgical History H/O hernia repair Social History Social History Household Members: Family Household Members Other:: parents Housing: House 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 have visiting nurse or other home services: Yes Unable to assess alcohol history related to: Unknown Alcohol intake: never Patient Tobacco Use Status: Former Tobacco user Tobacco use type: Cigarette Cigarettes Per Day: 0.25 Smoked in Last 30 Days: No Use of substances other than those prescribed or required for medical reasons: No Substance Use Type: Marijuana Have you been hit, kicked, punched, or otherwise hurt by someone within the past year? If so, by whom?: No Do you feel safe in your current relationship?: Yes Advance Directives: Yes Advance Directives on File: Yes Advance Directives Date on File: 08/21/22 Do you have a plan to hurt others: No Plan Recently lost weight without trying: No Nutrition Risks: No Nutritional Risk service: No Current occupational status: disabled Meds Allergies Allergy/AdvReac Type Severity Reaction Status Date / Time doxycycline Allergy Rash Verified 10/20/24 19:24 Active Medications: Current Medications Acetaminophen (Acetaminophen 325 Mg Tablet) 650 mg PO Q6H PRN PRN Reason: Pain, Mild 1-3,fever,headache Ascorbic Acid (Ascorbic Acid 500 Mg Tablet) 500 mg PO BID [facility] Last Admin: 10/21/24 11:45 Dose: 500 mg Calcium Carbonate (Calcium Carbonate 750 Mg Tab.Chew) 750 mg PO Q4H PRN PRN Reason: Heartburn Cyclobenzaprine HCl (Cyclobenzaprine Hcl 10 Mg Tablet) 10 mg PO TID [facility] Last Admin: 10/21/24 14:05 Dose: 10 mg Enoxaparin Sodium (Enoxaparin Sodium 40 Mg/0.4 Ml Syringe) 40 mg SUBCUT Q24H [facility] Last Admin: 10/21/24 03:08 Dose: 40 mg Guaifenesin (Guaifenesin La 600 Mg Tab.Er.12h) 600 mg PO BID [facility] Last Admin: 10/21/24 11:48 Dose: 600 mg Ampicillin Sodium 2 gm/ Sodium (Chloride) 100 mls @ 200 mls/hr IV Q4H [facility] Last Infusion: 10/21/24 17:21 Dose: Infused Cefepime HCl (Maxipime) 2 gm in 50 mls @ 100 mls/hr IV 0600,1400,2200 [facility] Last Infusion: 10/21/24 14:37 Dose: Infused Lactated Ringer's (Lr) 1,000 mls @ 100 mls/hr IVCONT .Q10H [facility] Last Admin: 10/21/24 15:39 Dose: 100 mls/hr Loratadine (Loratadine 10 Mg Tablet) 10 mg PO DAILY [facility] Last Admin: 10/21/24 11:48 Dose: 10 mg Magnesium Hydroxide (Milk Of Magnesia 30 Ml Oral.Susp) 30 ml PO DAILY PRN PRN Reason: Constipation Melatonin (Melatonin 3 Mg Tablet) 6 mg PO BEDTIME PRN PRN Reason: Insomnia Methenamine Hippurate (Methenamine Hippurate 1 Gm Tablet) 1 gm PO BID [facility] Last Admin: 10/21/24 11:43 Dose: 1 gm Non-Formulary Medication (Clindamycin Phosphate) 1 appl TOPICAL BID [facility] Nystatin/Triamcinolone Acetonide (Nystatin/Triamcinolone Cream 15 Gm Tube) 1 appl TOPICAL BID [facility] Last Admin: 10/21/24 14:03 Dose: 1 appl Ondansetron HCl (Ondansetron Hcl 4 Mg/2 Ml Vial) 4 mg IVPUSH Q8H PRN PRN Reason: Nausea and Vomiting Prednisone (Prednisone 20 Mg Tablet) 20 mg PO DAILY [facility] Last Admin: 10/21/24 11:45 Dose: 20 mg Sertraline HCl (Sertraline Hcl 50 Mg Tablet) 50 mg PO DAILY [facility] Last Admin: 10/21/24 11:44 Dose: 50 mg Sodium Chloride (0.9 % Sodium Chloride Flush 3 Ml Syringe) 3 ml IVFLUSH QSHIFT [facility] Last Admin: 10/21/24 15:41 Dose: Not Given Vitamin D (Cholecalciferol (Vitamin D3) 25 Mcg Tablet) 50 mcg PO DAILY [facility] Last Admin: 10/21/24 11:44 Dose: 50 mcg Home Medications ?Medication ?Instructions ?Recorded ?Confirmed ?Last Taken ?Type sertraline 50 mg tablet 50 mg PO DAILY 02/22/24 10/21/24 10/10/24 History clindamycin phosphate 1 % lotion 1 appl topical BID 09/10/24 10/21/24 10/10/24 History cholecalciferol (vitamin D3) 50 50 mcg PO DAILY 10/11/24 10/21/24 10/10/24 History mcg (2,000 unit) capsule (Vitamin D3) clotrimazole-betamethasone 1 1 appl topical BID 10/11/24 10/21/24 10/10/24 History %-0.05 % topical cream cyclobenzaprine 10 mg tablet 10 mg PO TID 10/11/24 10/21/24 10/10/24 History acetaminophen 500 mg tablet 500 mg PO Q6H PRN mild pain 10/21/24 10/21/24 Unknown History methenamine hippurate 1 gram tablet 1 g PO BID 10/21/24 10/21/24 Unknown History prednisone 20 mg tablet 20 mg PO DAILY 10/21/24 10/21/24 Unknown History Physical Exam 2 Vital Signs: Vital Signs: Last Vital Signs Temp 97.6 F 10/21/24 10:17 Pulse 130 H 10/21/24 15:11 Resp 24 H 10/21/24 15:11 BP 140/100 H 10/21/24 15:11 Pulse Ox 92 10/21/24 15:11 O2 Del Method Room Air 10/21/24 15:11 BMI result Body Mass Index 25.4 Const: General: cooperative, healthy appearing, comfortable and no acute distress Orientation/consciousness: patient oriented x3 HEENT: Face and sinus: Yes normal facial exam Mouth: moist mucous membranes Neck: Neck: Yes normal visual inspection, Yes full ROM and Yes trachea midline Chest: Chest palpation & inspection: normal inspection of the chest Resp: Effort & Inspection: normal respiratory effort, able to speak in complete sentences and no respiratory distress GI: Inspection: Yes normal to inspection Back/Spine/Pelvis: Cervical Spine: normal cervical lordosis Thoracic/Lumbar Spine: thoracic and lumbar spine normal to inspection Skin: General skin exam: no rashes or lesions noted Neuro: General: patient oriented x3, tone normal and moves all extremities Extrem: General: Yes normal to inspection and Yes capillary refill normal Results Labs 10/21/24 05:07 10/21/24 05:07 Labs: Abnormal lab results 10/20/24 10/20/24 10/21/24 Range/Units 21:03 21:50 01:41 WBC 14.1 H (4.8-10.8) X10*3/uL Hgb 13.8 L (14.0-18.0) g/dl Hct 40.9 L (42.0-52.0) % MCV 73.3 L (80.0-98.0) fL MCH 24.7 L (27.0-33.0) pg MPV (9.4-12.4) fL Band Neutrophils % 0 L (3-5) % Lymphocytes % (Manual) 16 L (20-40) % Monocytes % (Manual) 12 H (2-11) % Abs Neuts (Manual) 9.9 H (2.0-8.3) X10*3/uL Monocytes # (Manual) 1.7 H (0.1-1.2) X10*3/uL PT 14.2 H (10.9-12.4) SEC INR 1.2 H (0.9-1.1) Potassium 3.2 L (3.3-5.1) mmol/L Ur Specific [place] >= 1.030 H (1.005-1.025) Urine Protein 300 (3+) H (Neg-Trace) mg/dL Urine Blood Large (3+) H (Negative) Ur Leukocyte Esterase Large (3+) H (Negative) Urine RBC >20 H (0-2) /HPF Urine WBC >50 H (0-5) /HPF 10/21/24 Range/Units 05:07 WBC 12.8 H (4.8-10.8) X10*3/uL Hgb 13.0 L (14.0-18.0) g/dl Hct 40.3 L (42.0-52.0) % MCV 76.0 L (80.0-98.0) fL MCH 24.5 L (27.0-33.0) pg MPV 12.8 H (9.4-12.4) fL Band Neutrophils % (3-5) % Lymphocytes % (Manual) (20-40) % Monocytes % (Manual) (2-11) % Abs Neuts (Manual) (2.0-8.3) X10*3/uL Monocytes # (Manual) (0.1-1.2) X10*3/uL PT (10.9-12.4) SEC INR (0.9-1.1) Potassium (3.3-5.1) mmol/L Ur Specific [place] (1.005-1.025) Urine Protein (Neg-Trace) mg/dL Urine Blood (Negative) Ur Leukocyte Esterase (Negative) Urine RBC (0-2) /HPF Urine WBC (0-5) /HPF Short CBC 10/20/24 10/21/24 Range/Units 21:03 05:07 WBC 14.1 H 12.8 H (4.8-10.8) X10*3/uL Hgb 13.8 L 13.0 L (14.0-18.0) g/dl Hct 40.9 L 40.3 L (42.0-52.0) % Plt Count 263 D 266 (160-400) X10*3/uL BMP 10/20/24 10/21/24 21:50 05:07 Sodium 138 138 Potassium 3.2 L 3.8 Chloride 98 101 Carbon Dioxide 26 26 BUN 10 9 Creatinine 0.56 0.66 Calcium 9.1 9.3 Urine 10/21/24 Range/Units 01:41 Urine Color Dark Yellow Urine Appearance Turbid Urine pH 6.0 (5.0-9.0) Ur Specific [place] >= 1.030 H (1.005-1.025) Urine Protein 300 (3+) H (Neg-Trace) mg/dL Urine Glucose (UA) Negative (Negative) mg/dL All other labs normal. Assessment and Plan (1) Acute UTI: Status: Acute (2) Neurogenic urinary bladder disorder: Status: Acute Plan Change suprapubic to 20 Romansh catheter Continue current antibiotics When discharged can go on suppression Bactrim dose 400 mg p.o. daily Procedures Date of Service Date of Service: 10/21/24
--- NOTE | 2024-10-21 18:31 | MHC.EDTECH ---
Patient was given a full bed bath.
[2024-10-22] MEDS: Ampicillin Sodium 2 GM in 0.9 % Sodium Chloride 100 ML IV ×4 (00:07→11:05)
[2024-10-22] MEDS: Enoxaparin Sodium 40 MG/0.4 ML SYRINGE SUBCUT (02:58)
[2024-10-22 03:21] VITALS: BP 136/82; PULSE 116; RESP 20; TEMP 37.2; O2SAT 96
--- NOTE | 2024-10-22 05:15 | PC.NURSE ---
Patient arrived to unit approximately 2230, alert/oriented, bedbound, possible DTI/discoloration of bottocks. Skin otherwise moist but intact. Very limited rom, can move feet, arms, hands with very limited rom. Needs call villar placed on his chest so that he can use it. SR/ST on tele. Mild edema to dependent extremities. Feet slightly contracted and legs/arms spastic with movement. Patient has phlegm in his throat that builds up over time. RN percussed back to help him loosen phlegm. Patient has alot of difficult getting phlegm up. Patient did not want to be deep suctioned and nothing coming up to suck out with yankaur. Patient is able to lean all the way forward with assistance and he works at clearing phlegm. Upon admission he asked to be bladder scanned d/t bladder pressure/discomfort. Patient has a suprapubic catheter with a new bag attatched that has no urine in it. RN bladder scanned for >700ml. RN attempted to flush and aspirate catheter with slight manipulation but could not do either d/t resistance. RN paged who wanted a suprapubic or burciaga placed. A burciaga was placed, covering Hospitalist ordered burciaga. Burciaga drained 680ml gregory urine.
[2024-10-22] MEDS: cefEPime HCl/D5W 2 GM/50 ML PIGGYBACK IV (05:37)
[2024-10-22] MEDS: Lactated Ringers 1,000 ML 100 ML IVCONT ×2 (05:37→14:54)
[2024-10-22 08:00] VITALS: BP 135/83; PULSE 109; RESP 18; TEMP 36.5; O2SAT 94
--- NOTE | 2024-10-22 09:45 | PHA.MEDREC ---
Pharmacy Consult ? Medication Reconciliation Pharmacy has completed the medication reconciliation, complete by Yamil WILKINSON.
[2024-10-22] MEDS: predniSONE 20 MG TABLET PO (11:03)
[2024-10-22] MEDS: Cholecalciferol (Vitamin D3) 25 MCG TABLET 50 MCG PO (11:03)
[2024-10-22] MEDS: Ascorbic Acid 500 MG TABLET PO ×2 (11:03→19:53)
[2024-10-22] MEDS: Loratadine 10 MG TABLET PO (11:03)
[2024-10-22] MEDS: guaiFENesin LA 600 MG TAB.ER.12H PO ×2 (11:03→19:53)
[2024-10-22] MEDS: Methenamine Hippurate 1 GM TABLET PO ×2 (11:03→19:53)
[2024-10-22] MEDS: Cyclobenzaprine HCl 10 MG TABLET PO ×2 (11:04→19:53)
[2024-10-22] MEDS: Sertraline HCL 50 MG TABLET PO (11:04)
--- NOTE | 2024-10-22 11:28 | MHC.SL.SWA ---
Speech Pathologist Impression: Risk of Aspiration, Moderate Oropharyngeal Dysphagia Risk of Aspiration Due to: Neuro Dx Dysphasia Diet Status: Upgrade from NPO, start NDD1/HTL Liquid Consistency and Strategies for Safe Swallow: Liquid Intake Recommendation: Honey Thick Liquid Intake Strategies: Small Sips No Straws Double Swallow Liquids by Teaspoon Only Solid Food Consistency: Dietary Recommendations: Pureed (NDD1) Additional Modifications to Solid Foods: Recommend UPGRADE from NPO, start on PUREED (NDD1) solids and HONEY THICK liquids via teaspoon only. Administer pills as tolerated WHOLE or CRUSHED in PUREE (with additional bites puree in between). Patient will need 1:1 assistance feeding. Patient to be OOB, upright in chair, when possible during meals. Recommend strategies to promote oral and pharyngeal clearance: small bites/sips & dry swallows after each bite/sip. Oral Medication Intake: Crushed with Puree Please contact the pharmacy regarding appropriate crushable or liquid drug formulations that are available whenever modified delivery is recommended. Compensatory Strategies and Precautions to be Taken for Safe Swallow: Sitting Upright (90 deg) No Straw Liquids from Spoon Small Bites and Sips Rate of Ingestion Change Oral Check Supervision While Eating and Drinking for Safe Swallow: Total Assistance (1:1) Swallowing Recommended Treatments: Compens. Strategy Educat. Recommendation for Speech: Inpatient Speech Therapy Speech Therapy through [facility] Modified Barium Swallow Study - Inpatient Modified Barium Swallow Study - Outpatient Comment: MACHINE I ENGRAVER will continue to follow during hospital stay to monitor tolerance of recommendations and re-assess feeding needs. Patient w/ chronic dysphagia, hx MS, recent hospitalization 10/12 for dysphagia. He will likely need continued services ([facility]) after discharge. Patient had MBSS in 2021, showed intermittent penetration, but no evidence of aspiration. He may benefit from repeating instrumental assessment given his persistent concerns and neurological dx. Frequency/Duration: M-F PRN while inpatient Date Range for Service Req: Timeline to reassess: PRN Merchandising Team Lead Clinican/Clinical Fellow: No Supervisory Statement: I have reviewed and agree with the student/clinical fellow's documentation: N/A Speech Language Pathologist: Scarlet Wesley M.A., CCC-MACHINE I ENGRAVER
[2024-10-22 11:56] VITALS: BP 136/84; PULSE 120; RESP 16; TEMP 36.6; O2SAT 97
--- NOTE | 2024-10-22 13:57 | P.PNIM_ITS ---
Subjective Subjective Date of Service: 10/22/24 Interval History: sepsis /uti Review of Systems seems feelling somewhat improving no new fevers Physical Exam 2 Vital Signs: Vital Signs: Last Vital Signs Temp 97.8 F 10/22/24 11:56 Pulse 120 H 10/22/24 11:56 Resp 16 10/22/24 11:56 BP 136/84 10/22/24 11:56 Pulse Ox 97 10/22/24 11:56 O2 Del Method Room Air 10/22/24 11:56 BMI result Body Mass Index 25.4 Appearance: Alert.? Oriented X3.? generalised weak cvs: rrr, [id number]. res: clear to auscultation ,no rhonchii or wheezing abd: no rebound or guarding ,nt, bs present. ext pulses present , no cyanosis . neuro: axo3 , at baseline . Objective Data Active Medications Acetaminophen (Acetaminophen 325 Mg Tablet) 650 mg PO Q6H PRN PRN Reason: Pain, Mild 1-3,fever,headache Ascorbic Acid (Ascorbic Acid 500 Mg Tablet) 500 mg PO BID [facility] Last Admin: 10/22/24 11:03 Dose: 500 mg Documented By: YAMEL Calcium Carbonate (Calcium Carbonate 750 Mg Tab.Chew) 750 mg PO Q4H PRN PRN Reason: Heartburn Cyclobenzaprine HCl (Cyclobenzaprine Hcl 10 Mg Tablet) 10 mg PO TID [facility] Last Admin: 10/22/24 11:04 Dose: 10 mg Documented By: YAMEL Enoxaparin Sodium (Enoxaparin Sodium 40 Mg/0.4 Ml Syringe) 40 mg SUBCUT Q24H [facility] Last Admin: 10/22/24 02:58 Dose: 40 mg Documented By: GENO Guaifenesin (Guaifenesin La 600 Mg Tab.Er.12h) 600 mg PO BID [facility] Last Admin: 10/22/24 11:03 Dose: 600 mg Documented By: YAMEL Ampicillin Sodium 2 gm/ Sodium (Chloride) 100 mls @ 200 mls/hr IV Q4H [facility] Last Infusion: 10/22/24 11:41 Dose: Infused Documented By: YAMEL Cefepime HCl (Maxipime) 2 gm in 50 mls @ 100 mls/hr IV 0600,1400,2200 [facility] Last Infusion: 10/22/24 07:09 Dose: Infused Documented By: YAMEL Lactated Ringer's (Lr) 1,000 mls @ 100 mls/hr IVCONT .Q10H [facility] Last Admin: 10/22/24 11:05 Dose: Not Given Documented By: YAMEL Non-Admin Reason: IV Running Loratadine (Loratadine 10 Mg Tablet) 10 mg PO DAILY [facility] Last Admin: 10/22/24 11:03 Dose: 10 mg Documented By: YAMEL Magnesium Hydroxide (Milk Of Magnesia 30 Ml Oral.Susp) 30 ml PO DAILY PRN PRN Reason: Constipation Melatonin (Melatonin 3 Mg Tablet) 6 mg PO BEDTIME PRN PRN Reason: Insomnia Methenamine Hippurate (Methenamine Hippurate 1 Gm Tablet) 1 gm PO BID [facility] Last Admin: 10/22/24 11:03 Dose: 1 gm Documented By: YAMEL Non-Formulary Medication (Clindamycin Phosphate) 1 appl TOPICAL BID [facility] Nystatin/Triamcinolone Acetonide (Nystatin/Triamcinolone Cream 15 Gm Tube) 1 appl TOPICAL BID [facility] Last Admin: 10/22/24 11:04 Dose: Not Given Documented By: YAMEL Non-Admin Reason: Med Not Available Ondansetron HCl (Ondansetron Hcl 4 Mg/2 Ml Vial) 4 mg IVPUSH Q8H PRN PRN Reason: Nausea and Vomiting Prednisone (Prednisone 20 Mg Tablet) 20 mg PO DAILY [facility] Last Admin: 10/22/24 11:03 Dose: 20 mg Documented By: YAMEL Sertraline HCl (Sertraline Hcl 50 Mg Tablet) 50 mg PO DAILY [facility] Last Admin: 10/22/24 11:04 Dose: 50 mg Documented By: YAMEL Sodium Chloride (0.9 % Sodium Chloride Flush 3 Ml Syringe) 3 ml IVFLUSH QSHIFT [facility] Last Admin: 10/22/24 09:09 Dose: Not Given Documented By: YAMEL Non-Admin Reason: IV Running Vitamin D (Cholecalciferol (Vitamin D3) 25 Mcg Tablet) 50 mcg PO DAILY [facility] Last Admin: 10/22/24 11:03 Dose: 50 mcg Documented By: YAMEL Labs 10/21/24 05:07 10/21/24 05:07 Microbiology Microbiology Results: Microbiology 10/21/24 Unknown Urine Culture - Preliminary Urine Other - Suprapubic Culture in progress. 10/21/24 01:24 Blood Culture - Preliminary Blood - Venous No growth after 24 hours. 10/21/24 01:10 Blood Culture - Preliminary Blood - Venous No growth after 24 hours. 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 Sepsis due to acute complicated UTI, recurrent: leucocytosis seems improving Lactic acid normal and blood culture pending urine cultures pending previous urine cultures -Does have a history of Enterococcus and Pseudomonas. on IV cefepime and ampicillin. Follow urine cultures. Consulting ID Tachycardia in the setting of above: improved with fluid resuscitation and antibiotics Mood disorder: On sertraline Neuromyelitis optica spectrum disorder: On cyclobenzaprine and baclofen Dysphagia: repeat ham stripper eval done :diet adjusted pureed/honey thick DVT prophylaxis: Lovenox ongoing need hospital stay for IV antibiotics (as above), which is not possible in a lesser acute setting. Specialist consult pending Quality Stroke Does the patient have a stroke diagnosis?: No VTE Prior VTE?: No VTE Risk Level:: Medical - moderate - high VTE Device Contraindication: Treatment Not Indicated VTE Drug Contraindication: N/A - Med Ordered
[2024-10-22] MEDS: Meropenem 1 GM VIAL IVPUSH ×2 (14:53→23:44)
--- NOTE | 2024-10-22 15:15 | MHC.CM.PN ---
EMR reviewed and per MD rounds, pt is not medically cleared for discharge due to management of Sepsis/UTI, pt receiving IV antibiotics.
[2024-10-22 15:36] VITALS: BP 130/85; PULSE 120; RESP 20; TEMP 36.6; O2SAT 94
[2024-10-22 15:41] VITALS: RESP 20; O2SAT 94
[2024-10-22] MEDS: Acetaminophen 325 MG TABLET 650 MG PO (17:24)
[2024-10-22] MEDS: 0.9 % Sodium Chloride Flush 3 ML SYRINGE IVFLUSH (19:58)
[2024-10-22 20:00] VITALS: BP 118/73; PULSE 108; RESP 18; TEMP 36.6; O2SAT 93
--- NOTE | 2024-10-22 22:32 | W.PM.IDCN ---
History of Present Illness Data of Consult Service Date: 10/22/24 Primary Care Provider: Ebenezer Leslie MD [facility] Reason for consult: possible urinary sepsis He presents with palpitations. He has neuromyelitis opticsa and neurogenic bladder. He has reported change in color and odor of urine. He just finished one week Amoxicillin and Levaquin from hospital discharge on 10/19/2024. Urine cultures are pending. He has had pseudomonas and enterococcus Loco urine. Blood cultures negative. 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 Microcytic anemia Multiple sclerosis Headache Family History Family History Other No family history of coronary artery disease Family history: reviewed and not pertinent Surgical History Surgical History H/O hernia repair Social History Social History Household Members: Family Household Members Other:: parents Housing: House 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 have visiting nurse or other home services: Yes Unable to assess alcohol history related to: Unknown Alcohol intake: never Patient Tobacco Use Status: Former Tobacco user Tobacco use type: Cigarette Cigarettes Per Day: 0.25 Smoked in Last 30 Days: No Use of substances other than those prescribed or required for medical reasons: No Substance Use Type: Marijuana Currently Displaying Signs/Symptoms of Drug Intoxication Withdrawal: No Have you been hit, kicked, punched, or otherwise hurt by someone within the past year? If so, by whom?: No Do you feel safe in your current relationship?: Yes Advance Directives: Yes Advance Directives on File: Yes Advance Directives Date on File: 08/21/22 Do you have a plan to hurt others: No Plan Recently lost weight without trying: No Nutrition Risks: No Nutritional Risk service: No Current occupational status: disabled Meds Allergies Allergy/AdvReac Type Severity Reaction Status Date / Time doxycycline Allergy Rash Verified 10/20/24 19:24 Active Medications: Current Medications Acetaminophen (Acetaminophen 325 Mg Tablet) 650 mg PO Q6H PRN PRN Reason: Pain, Mild 1-3,fever,headache Last Admin: 10/22/24 17:24 Dose: 650 mg Ascorbic Acid (Ascorbic Acid 500 Mg Tablet) 500 mg PO BID [facility] Last Admin: 10/22/24 19:53 Dose: 500 mg Calcium Carbonate (Calcium Carbonate 750 Mg Tab.Chew) 750 mg PO Q4H PRN PRN Reason: Heartburn Cyclobenzaprine HCl (Cyclobenzaprine Hcl 10 Mg Tablet) 10 mg PO TID [facility] Last Admin: 10/22/24 19:53 Dose: 10 mg Enoxaparin Sodium (Enoxaparin Sodium 40 Mg/0.4 Ml Syringe) 40 mg SUBCUT Q24H [facility] Last Admin: 10/22/24 02:58 Dose: 40 mg Guaifenesin (Guaifenesin La 600 Mg Tab.Er.12h) 600 mg PO BID [facility] Last Admin: 10/22/24 19:53 Dose: 600 mg Lactated Ringer's (Lr) 1,000 mls @ 100 mls/hr IVCONT .Q10H [facility] Last Admin: 10/22/24 14:54 Dose: 100 mls/hr Loratadine (Loratadine 10 Mg Tablet) 10 mg PO DAILY [facility] Last Admin: 10/22/24 11:03 Dose: 10 mg Magnesium Hydroxide (Milk Of Magnesia 30 Ml Oral.Susp) 30 ml PO DAILY PRN PRN Reason: Constipation Melatonin (Melatonin 3 Mg Tablet) 6 mg PO BEDTIME PRN PRN Reason: Insomnia Meropenem (Meropenem 1 Gm Vial) 1 gm IVPUSH Q8H [facility] Last Admin: 10/22/24 14:53 Dose: 1 gm Methenamine Hippurate (Methenamine Hippurate 1 Gm Tablet) 1 gm PO BID [facility] Last Admin: 10/22/24 19:53 Dose: 1 gm Non-Formulary Medication (Clindamycin Phosphate) 1 appl TOPICAL BID [facility] Nystatin/Triamcinolone Acetonide (Nystatin/Triamcinolone Cream 15 Gm Tube) 1 appl TOPICAL BID [facility] Last Admin: 10/22/24 11:04 Dose: Not Given Ondansetron HCl (Ondansetron Hcl 4 Mg/2 Ml Vial) 4 mg IVPUSH Q8H PRN PRN Reason: Nausea and Vomiting Prednisone (Prednisone 20 Mg Tablet) 20 mg PO DAILY [facility] Last Admin: 10/22/24 11:03 Dose: 20 mg Sertraline HCl (Sertraline Hcl 50 Mg Tablet) 50 mg PO DAILY [facility] Last Admin: 10/22/24 11:04 Dose: 50 mg Sodium Chloride (0.9 % Sodium Chloride Flush 3 Ml Syringe) 3 ml IVFLUSH QSHIFT [facility] Last Admin: 10/22/24 19:58 Dose: 3 ml Vitamin D (Cholecalciferol (Vitamin D3) 25 Mcg Tablet) 50 mcg PO DAILY [facility] Last Admin: 10/22/24 11:03 Dose: 50 mcg Home Medications ?Medication ?Instructions ?Recorded ?Confirmed ?Last Taken ?Type sertraline 50 mg tablet 50 mg PO DAILY 02/22/24 10/21/24 10/10/24 History clindamycin phosphate 1 % lotion 1 appl topical BID 09/10/24 10/21/24 10/10/24 History cholecalciferol (vitamin D3) 50 50 mcg PO DAILY 10/11/24 10/21/24 10/10/24 History mcg (2,000 unit) capsule (Vitamin D3) clotrimazole-betamethasone 1 1 appl topical BID 10/11/24 10/21/24 10/10/24 History %-0.05 % topical cream cyclobenzaprine 10 mg tablet 10 mg PO TID 10/11/24 10/21/24 10/10/24 History acetaminophen 500 mg tablet 500 mg PO Q6H PRN mild pain 10/21/24 10/21/24 Unknown History methenamine hippurate 1 gram tablet 1 g PO BID 10/21/24 10/21/24 Unknown History prednisone 20 mg tablet 20 mg PO DAILY 10/21/24 10/21/24 Unknown History Physical Exam Vital Signs: Vital Signs: Last Vital Signs Temp 97.9 F 10/22/24 20:00 Pulse 108 H 10/22/24 20:00 Resp 18 10/22/24 20:00 BP 118/73 10/22/24 20:00 Pulse Ox 93 10/22/24 20:00 O2 Del Method Room Air 10/22/24 20:00 BMI result Body Mass Index 25.4 Const: General: cooperative HEENT: Head: Yes normal to inspection Face and sinus: Yes normal facial exam Mouth: Normal oral and palatal mucosa present Teeth and gingiva: dentition normal Eyes: General: appearance normal, both eyes and all related structures Pupils: Equal, round and reactive pupils present Resp: Effort & Inspection: normal respiratory effort Cardio: Rate: regular rate Rhythm: regular rhythm GI: Palpation (GI): Soft to palpation and nontender : General: Yes no CVA tenderness Back/Spine/Pelvis: Back: no CVA tenderness Skin: General skin exam: no rashes or lesions noted Neuro: General: moves all extremities Cranial nerves: Yes Equal, round and reactive pupils present Extrem: General: Yes normal to inspection Psych: Other: rocking back and forth,difficult to get history from due to appearing uncomfortable Results Labs 10/21/24 05:07 10/21/24 05:07 Microbiology Microbiology Results: Microbiology 10/21/24 Unknown Urine Other - Suprapubic Urine Culture - Preliminary Culture in progress. 10/21/24 01:24 Blood - Venous Blood Culture - Preliminary No growth after 24 hours. 10/21/24 01:10 Blood - Venous Blood Culture - Preliminary No growth after 24 hours. Assessment and Plan (1) Neurogenic urinary bladder disorder: Status: Acute (2) Sepsis: Status: Acute (3) Acute UTI: Status: Acute Plan He has possible viral syndrome He really should have had cure with recent antibiotic regimen for UTI but urine culture pending. Change in color unless hematuria not indication for UTI as neither is change in odor of urine. If urine culture negative then stop antibiotics,otherwise Merem for now. Follow Urology outpatient.
[2024-10-23] VITALS: BP 131/81; PULSE 83; RESP 18; TEMP 36.1; O2SAT 97
[2024-10-23] MEDS: Lactated Ringers 1,000 ML 100 ML IVCONT ×3 (00:48→22:49)
[2024-10-23] MEDS: Enoxaparin Sodium 40 MG/0.4 ML SYRINGE SUBCUT (03:22)
[2024-10-23 04:00] VITALS: BP 140/88; PULSE 108; RESP 18; TEMP 36.6; O2SAT 94
[2024-10-23] MEDS: Meropenem 1 GM VIAL IVPUSH ×3 (06:13→22:47)
[2024-10-23] MEDS: 0.9 % Sodium Chloride Flush 3 ML SYRINGE IVFLUSH ×3 (06:13→19:54)
[2024-10-23 07:10] VITALS: BP 131/84; PULSE 91; RESP 18; TEMP 36.7; O2SAT 95
[2024-10-23] MEDS: Methenamine Hippurate 1 GM TABLET PO ×2 (09:07→19:53)
[2024-10-23] MEDS: Ascorbic Acid 500 MG TABLET PO ×2 (09:08→19:53)
[2024-10-23] MEDS: Loratadine 10 MG TABLET PO (09:08)
[2024-10-23] MEDS: Cholecalciferol (Vitamin D3) 25 MCG TABLET 50 MCG PO (09:08)
[2024-10-23] MEDS: predniSONE 20 MG TABLET PO (09:08)
[2024-10-23] MEDS: Cyclobenzaprine HCl 10 MG TABLET PO ×3 (09:08→19:53)
[2024-10-23] MEDS: Sertraline HCL 50 MG TABLET PO (09:08)
[2024-10-23] MEDS: guaiFENesin LA 600 MG TAB.ER.12H PO ×2 (09:08→19:54)
[2024-10-23 11:39] VITALS: BP 119/83; PULSE 118; RESP 18; TEMP 36.3; O2SAT 96
--- NOTE | 2024-10-23 13:08 | PC.NURSE ---
pt heart rate 120's-130's, dr mueller notified, no new orders, pt afebrile, receiving lr at 100cc/hr and sleeping with eyes closed, per dr mueller, this patients baseline
--- NOTE | 2024-10-23 13:45 | P.PNIM_ITS ---
Subjective Subjective Date of Service: 10/23/24 Interval History: sepsis /uti Review of Systems seems feelling somewhat improving no new c/o. Physical Exam 2 Vital Signs: Vital Signs: Last Vital Signs Temp 97.4 F 10/23/24 11:39 Pulse 118 H 10/23/24 11:39 Resp 18 10/23/24 11:39 BP 119/83 10/23/24 11:39 Pulse Ox 96 10/23/24 11:39 O2 Del Method Room Air 10/23/24 11:39 BMI result Body Mass Index 25.4 Appearance: Alert.? Oriented X3.? generalised weak cvs: [id number], [id number]. res: clear to auscultation ,no rhonchii or wheezing abd: no rebound or guarding ,nt, bs present. ext pulses present , no cyanosis . neuro: axo3 , at baseline . Objective Data Active Medications Acetaminophen (Acetaminophen 325 Mg Tablet) 650 mg PO Q6H PRN PRN Reason: Pain, Mild 1-3,fever,headache Last Admin: 10/22/24 17:24 Dose: 650 mg Documented By: YAMEL Ascorbic Acid (Ascorbic Acid 500 Mg Tablet) 500 mg PO BID [facility] Last Admin: 10/23/24 09:08 Dose: 500 mg Documented By: LUIS ANTONIO Calcium Carbonate (Calcium Carbonate 750 Mg Tab.Chew) 750 mg PO Q4H PRN PRN Reason: Heartburn Cyclobenzaprine HCl (Cyclobenzaprine Hcl 10 Mg Tablet) 10 mg PO TID [facility] Last Admin: 10/23/24 09:08 Dose: 10 mg Documented By: LUIS ANTONIO Enoxaparin Sodium (Enoxaparin Sodium 40 Mg/0.4 Ml Syringe) 40 mg SUBCUT Q24H [facility] Last Admin: 10/23/24 03:22 Dose: 40 mg Documented By: ALONDRA Guaifenesin (Guaifenesin La 600 Mg Tab.Er.12h) 600 mg PO BID [facility] Last Admin: 10/23/24 09:08 Dose: 600 mg Documented By: LUIS ANTONIO Lactated Ringer's (Lr) 1,000 mls @ 100 mls/hr IVCONT .Q10H [facility] Last Admin: 10/23/24 10:29 Dose: 100 mls/hr Documented By: LUIS ANTONIO Loratadine (Loratadine 10 Mg Tablet) 10 mg PO DAILY [facility] Last Admin: 10/23/24 09:08 Dose: 10 mg Documented By: LUIS ANTONIO Magnesium Hydroxide (Milk Of Magnesia 30 Ml Oral.Susp) 30 ml PO DAILY PRN PRN Reason: Constipation Melatonin (Melatonin 3 Mg Tablet) 6 mg PO BEDTIME PRN PRN Reason: Insomnia Meropenem (Meropenem 1 Gm Vial) 1 gm IVPUSH Q8H [facility] Last Admin: 10/23/24 06:13 Dose: 1 gm Documented By: ALONDRA Methenamine Hippurate (Methenamine Hippurate 1 Gm Tablet) 1 gm PO BID [facility] Last Admin: 10/23/24 09:07 Dose: 1 gm Documented By: LUIS ANTONIO Non-Formulary Medication (Clindamycin Phosphate) 1 appl TOPICAL BID [facility] Nystatin/Triamcinolone Acetonide (Nystatin/Triamcinolone Cream 15 Gm Tube) 1 appl TOPICAL BID [facility] Last Admin: 10/23/24 09:36 Dose: Not Given Documented By: LUIS ANTONIO Non-Admin Reason: Off unit: Dialysis Ondansetron HCl (Ondansetron Hcl 4 Mg/2 Ml Vial) 4 mg IVPUSH Q8H PRN PRN Reason: Nausea and Vomiting Prednisone (Prednisone 20 Mg Tablet) 20 mg PO DAILY [facility] Last Admin: 10/23/24 09:08 Dose: 20 mg Documented By: LUIS ANTONIO Sertraline HCl (Sertraline Hcl 50 Mg Tablet) 50 mg PO DAILY [facility] Last Admin: 10/23/24 09:08 Dose: 50 mg Documented By: LUIS ANTONIO Sodium Chloride (0.9 % Sodium Chloride Flush 3 Ml Syringe) 3 ml IVFLUSH QSHIFT [facility] Last Admin: 10/23/24 06:13 Dose: 3 ml Documented By: ALONDRA Vitamin D (Cholecalciferol (Vitamin D3) 25 Mcg Tablet) 50 mcg PO DAILY [facility] Last Admin: 10/23/24 09:08 Dose: 50 mcg Documented By: LUIS ANTONIO Labs 10/21/24 05:07 10/21/24 05:07 Microbiology Microbiology Results: Microbiology 10/21/24 Unknown Urine Culture - Preliminary Urine Other - Suprapubic Gram negative shaka Yeast 10/21/24 01:24 Blood Culture - Preliminary Blood - Venous No growth after 48 hours. 01/09/25 01:10 Blood Culture - Preliminary Blood - Venous No growth after 48 hours. 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 Sepsis due to acute complicated UTI, recurrent: leucocytosis seems improving Lactic acid normal and blood culture pending urine cultures this admission grew -gram neg shaka/yeast. previous urine cultures -Does have a history of Enterococcus and Pseudomonas. seen by ID and discussed urine cultures -continue meropenem until urine cultures come back(final), currently no yeast coverage-less likely organism. Tachycardia in the setting of above: added tsh,echo ddimer checked this admit negative blood cultures negative @48 hrs his hr flactuates derrek reviewed last admission vitals in system continue fluid resuscitation and antibiotics Mood disorder: On sertraline Neuromyelitis optica spectrum disorder: On cyclobenzaprine and baclofen Dysphagia: repeat trustee of estate eval done :diet adjusted pureed/honey thick DVT prophylaxis: Lovenox ongoing need hospital stay for IV antibiotics and urine culture final awaits , tachycardia workup. Quality Stroke Does the patient have a stroke diagnosis?: No VTE Prior VTE?: No VTE Risk Level:: Medical - moderate - high VTE Device Contraindication: Treatment Not Indicated VTE Drug Contraindication: N/A - Med Ordered
[2024-10-23 14:52] LABS: Thyroid Stimulating Hormone 0.26 uIU/mL (0.32-4.0)
[2024-10-23 15:44] VITALS: BP 120/81; PULSE 127; RESP 18; TEMP 36.7; O2SAT 98
[2024-10-23] MEDS: Scopolamine 1.5 MG PATCH.TD.3 EAR-BEHIND (18:50)
[2024-10-23 19:44] VITALS: BP 117/85; PULSE 121; RESP 20; TEMP 36.9; O2SAT 96
[2024-10-24] VITALS (7 sets, daily range): BP systolic 103–123; BP diastolic 64–85; PULSE 97–119; RESP 16–18; TEMP 36.3–36.9; O2SAT 94–100
[2024-10-24] MEDS: Enoxaparin Sodium 40 MG/0.4 ML SYRINGE SUBCUT (01:31)
[2024-10-24] MEDS: Nystatin/Triamcinolone Cream 15 GM TUBE 1 APPL TOPICAL ×3 (01:31→21:45)
[2024-10-24] MEDS: Meropenem 1 GM VIAL IVPUSH ×3 (06:05→22:24)
[2024-10-24] MEDS: guaiFENesin LA 600 MG TAB.ER.12H PO (08:28)
[2024-10-24] MEDS: 0.9 % Sodium Chloride Flush 3 ML SYRINGE IVFLUSH ×3 (08:28→22:24)
[2024-10-24] MEDS: Sertraline HCL 50 MG TABLET PO (08:28)
[2024-10-24] MEDS: Ascorbic Acid 500 MG TABLET PO ×2 (08:28→21:41)
[2024-10-24] MEDS: Methenamine Hippurate 1 GM TABLET PO ×2 (08:28→21:41)
[2024-10-24] MEDS: Cyclobenzaprine HCl 10 MG TABLET PO ×3 (08:29→21:41)
[2024-10-24] MEDS: predniSONE 20 MG TABLET PO (08:30)
[2024-10-24] MEDS: Loratadine 10 MG TABLET PO (08:30)
[2024-10-24] MEDS: Cholecalciferol (Vitamin D3) 25 MCG TABLET 50 MCG PO (08:30)
[2024-10-24 09:21] LABS: Anion Gap 10 (12-20); Blood Urea Nitrogen 4 mg/dL (9-16); Calcium 8.4 mg/dL (8.4-10.2); Carbon Dioxide 30 mmol/L (22-29); Chloride 106 mmol/L (96-108); Creatinine Clr Calc Pharmacy 196.3; Estimated Glomerular Filt Rate > 60; Glucose Random 89 mg/dL (60-115); Sodium 143 mmol/L (135-145)
[2024-10-24 09:38] LABS: Free T4 (Free Thyroxine) 1.38 ng/dL (0.71-1.85)
[2024-10-24] MEDS: Lactated Ringers 1,000 ML 100 ML IVCONT ×2 (12:35→21:42)
--- NOTE | 2024-10-24 12:59 | HO.PM.IMPN ---
Subjective Subjective Date of Service: 10/24/24 Interval History: sepsis /uti Review of Systems seems feelling somewhat improving no new c/o. Physical Exam Vital Signs: Vital Signs: Last Vital Signs Temp 98.1 F 10/24/24 10:59 Pulse 101 H 10/24/24 10:59 Resp 18 10/24/24 10:59 BP 103/85 10/24/24 10:59 Pulse Ox 100 10/24/24 10:59 O2 Del Method Room Air 10/24/24 10:59 BMI result Body Mass Index 25.4 Appearance: Alert.? Oriented X3.? generalised weak cvs: rrr, [id number]. res: clear to auscultation ,no rhonchii or wheezing abd: no rebound or guarding ,nt, bs present. ext pulses present , no cyanosis . neuro: axo3 , at baseline . Objective Data Active Medications Acetaminophen (Acetaminophen 325 Mg Tablet) 650 mg PO Q6H PRN PRN Reason: Pain, Mild 1-3,fever,headache Last Admin: 10/22/24 17:24 Dose: 650 mg Documented By: YAMEL Ascorbic Acid (Ascorbic Acid 500 Mg Tablet) 500 mg PO BID [facility] Last Admin: 10/24/24 08:28 Dose: 500 mg Documented By: OSWALD Calcium Carbonate (Calcium Carbonate 750 Mg Tab.Chew) 750 mg PO Q4H PRN PRN Reason: Heartburn Cyclobenzaprine HCl (Cyclobenzaprine Hcl 10 Mg Tablet) 10 mg PO TID [facility] Last Admin: 10/24/24 08:29 Dose: 10 mg Documented By: OSWALD Enoxaparin Sodium (Enoxaparin Sodium 40 Mg/0.4 Ml Syringe) 40 mg SUBCUT Q24H [facility] Last Admin: 10/24/24 01:31 Dose: 40 mg Documented By: STEPHON Guaifenesin (Guaifenesin La 600 Mg Tab.Er.12h) 600 mg PO BID [facility] Last Admin: 10/24/24 08:28 Dose: 600 mg Documented By: OSWALD Lactated Ringer's (Lr) 1,000 mls @ 100 mls/hr IVCONT .Q10H [facility] Last Admin: 10/24/24 12:35 Dose: 100 mls/hr Documented By: OSWALD Loratadine (Loratadine 10 Mg Tablet) 10 mg PO DAILY [facility] Last Admin: 10/24/24 08:30 Dose: 10 mg Documented By: OSWALD Magnesium Hydroxide (Milk Of Magnesia 30 Ml Oral.Susp) 30 ml PO DAILY PRN PRN Reason: Constipation Melatonin (Melatonin 3 Mg Tablet) 6 mg PO BEDTIME PRN PRN Reason: Insomnia Meropenem (Meropenem 1 Gm Vial) 1 gm IVPUSH Q8H [facility] Last Admin: 10/24/24 06:05 Dose: 1 gm Documented By: STEPHON Methenamine Hippurate (Methenamine Hippurate 1 Gm Tablet) 1 gm PO BID [facility] Last Admin: 10/24/24 08:28 Dose: 1 gm Documented By: OSWALD Non-Formulary Medication (Clindamycin Phosphate) 1 appl TOPICAL BID [facility] Nystatin/Triamcinolone Acetonide (Nystatin/Triamcinolone Cream 15 Gm Tube) 1 appl TOPICAL BID [facility] Last Admin: 10/24/24 08:31 Dose: 1 appl Documented By: OSWALD Ondansetron HCl (Ondansetron Hcl 4 Mg/2 Ml Vial) 4 mg IVPUSH Q8H PRN PRN Reason: Nausea and Vomiting Prednisone (Prednisone 20 Mg Tablet) 20 mg PO DAILY [facility] Last Admin: 10/24/24 08:30 Dose: 20 mg Documented By: OSWALD Sertraline HCl (Sertraline Hcl 50 Mg Tablet) 50 mg PO DAILY [facility] Last Admin: 10/24/24 08:28 Dose: 50 mg Documented By: OSWALD Sodium Chloride (0.9 % Sodium Chloride Flush 3 Ml Syringe) 3 ml IVFLUSH QSHIFT [facility] Last Admin: 10/24/24 08:28 Dose: 3 ml Documented By: OSWALD Vitamin D (Cholecalciferol (Vitamin D3) 25 Mcg Tablet) 50 mcg PO DAILY [facility] Last Admin: 10/24/24 08:30 Dose: 50 mcg Documented By: OSWALD Labs 10/21/24 05:07 10/24/24 08:34 Labs: Laboratory Results - last 24 hr 10/23/24 10/24/24 14:10 08:34 Anion Gap 10 L Estim Creat Clear Calc 196.3 Estimated GFR > 60 Random Glucose 89 Calcium 8.4 D TSH 0.26 L Free T4 1.38 Microbiology Microbiology Results: Microbiology 10/21/24 Unknown Urine Culture - Final Urine Other - Suprapubic Escherichia coli Trichosporon asashoshana Assessment and Plan (1) Sepsis: Status: Acute (2) Acute UTI: Status: Acute Plan 38-year-old male with 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 Sepsis due to acute complicated UTI, recurrent: leucocytosis seems improving Lactic acid normal and blood culture pending urine cultures this admission grew -gram neg shaka/yeast. previous urine cultures -Does have a history of Enterococcus and Pseudomonas. seen by ID and discussed urine cultures -continue meropenem until urine cultures come back(final), currently no yeast coverage-less likely organism. Tachycardia in the setting of above: tsh boderline low , t4 normal,echo ddimer checked this admit negative blood cultures negative @48 hrs his hr flactuates reviewed last admission vitals in system continue fluid resuscitation and antibiotics Mood disorder: On sertraline. acute hypokalemia : added po potassium. Neuromyelitis optica spectrum disorder: On cyclobenzaprine and baclofen Dysphagia: repeat jewellery designer eval done :diet adjusted pureed/honey thick DVT prophylaxis: Lovenox ongoing need hospital stay for IV antibiotics and urine culture final awaits , tachycardia workup. Quality Stroke Does the patient have a stroke diagnosis?: No VTE Prior VTE?: No VTE Risk Level:: Medical - moderate - high VTE Device Contraindication: Treatment Not Indicated VTE Drug Contraindication: N/A - Med Ordered
[2024-10-24] MEDS: Potassium Chloride ER 20 MEQ TAB.ER.PRT 40 MEQ PO (14:20)
[2024-10-25] VITALS (7 sets, daily range): BP systolic 109–135; BP diastolic 69–79; PULSE 91–113; RESP 16–20; TEMP 36.1–37.7; O2SAT 96–100; BMI 25.4
[2024-10-25] MEDS: Enoxaparin Sodium 40 MG/0.4 ML SYRINGE SUBCUT (01:32)
[2024-10-25] MEDS: Meropenem 1 GM VIAL IVPUSH ×3 (06:37→23:06)
[2024-10-25] MEDS: Milk of Magnesia 30 ML ORAL.SUSP PO (06:37)
[2024-10-25] MEDS: Lactated Ringers 1,000 ML 100 ML IVCONT (06:37)
--- NOTE | 2024-10-25 07:00 | CA_ITS ---
Transthoracic Echocardiogram Patient (Last, First, Middle): Justus Burr, Gender: Male Date of : 1985 Age: 39 Procedure Date: 10/25/2024 Procedure Type: Transthoracic Echocardiogram Location: [facility] [place] Height: 154.94 cm Weight: 59.88 kg BSA: 1.58 m2 Heart Rate: 98 bpm BP: 133 / 63 mmHg Roll Winder: LORI Referring MD: Giulia Alatorre MD Symptoms: persistent tachycardia Study Quality: Adequate ECG Rhythm: Sinus Conclusions: - Normal left ventricular cavity size. There is normal left ventricular wall thickness. The left ventricular systolic function is low normal. The visually estimated ejection fraction is between 50-55%. Diastolic function is normal for age. - Normal right ventricular cavity size and systolic function. - There is no evidence of pericardial effusion. Findings Left Ventricle Normal left ventricular cavity size. There is normal left ventricular wall thickness. The left ventricular systolic function is low normal. The visually estimated ejection fraction is between 50-55%. Diastolic function is normal for age. Right Ventricle Normal right ventricular cavity size and systolic function. Atria Both atria are normal in size. Aortic Valve The aortic valve was not well visualized. There is no aortic valve stenosis. There is no aortic valve regurgitation. Mitral Valve Normal mitral valve structure and function. There is no mitral valve regurgitation. There is no mitral valve stenosis. Pulmonic Valve The pulmonic valve was not well visualized. Tricuspid Valve Likely normal tricuspid valve structure and function. Tricuspid regurgitation envelope is inadequate for calculation of right ventricular systolic pressure. Normal right atrial pressure. Great Vessels All visible segments of the aorta are normal in size. Venous The inferior vena cava is normal in size and collapses greater than 50% with inspiration. Pericardium/Pleural There is no evidence of pericardial effusion. Prior Study Comparison No prior study available for comparison. Measurements 2D Linear Measurements IVSd: 0.96 0.6-0.9/0.6-1.0 cm LVIDd: 4.00 3.9-5.3/4.2-5.9 cm LVIDd Index: 2.53 2.4-3.2/2.2-3.1 cm/m2 LVIDs: 2.76 2.0-3.6 cm LVPWd: 1.15 0.7-1.1 cm LV Mass: 170.43 67-162/88-224 g LV Mass Index: 107.87 43-95/49-115 g/m2 LVOT Diam: 2.00 3.0+(-)1.3 cm 2D Systolic Function EF 4C: 41.20 >55% EF 2C: 51.20 >55% EF BiP: 46.60 >55% Mitral Valve MV Pk E: 0.51 MV PK A: 0.75 MV Decel Time: 131.00 E/A: 0.70 E'Lateral: 10.00 E'Medial: 8.70 E/E' Med: 5.80 E/E' Lat: 5.10 PHT: 38.00 MVA PHT: 5.79 Decel Mason: 3.87 Aortic Valve AoV Pk Bernardo: 1.05 AoV Mn Bernardo: 0.79 AoV VTI: 0.19 AoV Pk Grad: 4.00 Aov Mn Grad: 3.00 ANGELICA Cont.VTI: 2.63 LVOT LVOT Pk Bernardo: 0.91 LVOT Mn Bernardo: 0.67 LVOT VTI: 0.16 LVOT Pk Grad: 3.00 LVOT Mn Grad: 2.00 LVOT Diam: 2.00 LVOT Area: 3.14 Diastolic Function MV Pk E: 0.51 MV Pk A: 0.75 E/A: 0.70 E'Medial: 8.70 E/E' Med: 5.80 E' Laterial: 10.00 E/E' Lat: 5.10 Right Ventricle TAPSE (mm): 18.00 TVS' Bernardo: 13.10 Great Vessels Aorta Sinus of Valsalva: 3.40 2.0-3.5 cm Ao Asc: 3.20 2.1-3.4 cm Pulmonary Valve PV Pk Bernardo: 0.73 Peak PV Grad: 2.00 Updated in Other Vendor System with Status of Final Jim Wong MD electronically signed on 10/25/2024 7:10:52 PM with status of Final
[2024-10-25 09:12] LABS: Anion Gap 11 (12-20); Blood Urea Nitrogen 5 mg/dL (9-16); Calcium 8.7 mg/dL (8.4-10.2); Carbon Dioxide 29 mmol/L (22-29); Chloride 107 mmol/L (96-108); Creatinine Clr Calc Pharmacy 192.5; Estimated Glomerular Filt Rate > 60; Glucose Random 84 mg/dL (60-115); Potassium 3.3 mmol/L (3.3-5.1); Sodium 144 mmol/L (135-145)
[2024-10-25] MEDS: guaiFENesin LA 600 MG TAB.ER.12H PO (09:28)
[2024-10-25] MEDS: Ascorbic Acid 500 MG TABLET PO ×2 (09:28→23:07)
[2024-10-25] MEDS: Sertraline HCL 50 MG TABLET PO (09:29)
[2024-10-25] MEDS: Methenamine Hippurate 1 GM TABLET PO ×2 (09:29→23:07)
[2024-10-25] MEDS: Cholecalciferol (Vitamin D3) 25 MCG TABLET 50 MCG PO (09:29)
[2024-10-25] MEDS: predniSONE 20 MG TABLET PO (09:29)
[2024-10-25] MEDS: Cyclobenzaprine HCl 10 MG TABLET PO ×3 (09:29→23:06)
[2024-10-25] MEDS: Loratadine 10 MG TABLET PO (09:29)
[2024-10-25] MEDS: 0.9 % Sodium Chloride Flush 3 ML SYRINGE IVFLUSH ×2 (09:54→23:07)
--- NOTE | 2024-10-25 12:41 | HO.WOUND ---
Wound Consult: Initial 39yr old?male admitted to [facility] [place] on 10/21/24 - See progress notes and H&P for detailed history.? Wound consult placed for Coccyx wound POA.? Patient agreeable to assessment and photo documentation.? Sacrum, Coccyx, and Buttock Etiology: ?MASD (Moisture Associated Skin Damage) Wound Bed: Intact tissue - no open wound noted. Dry desquamation noted and dark pigmented tissue Drainage / Odor: None noted Edges: ? mirrorred Carmen wound: ?Intact No Induration, Fluctuance or Warmth noted Pain: denies Goals of Treatment: ? Barrier cream to protect from friction and moisture and Q2hr turns with pillows and or wedges. Recommendations: 1. Turn and Reposition every 2 hours and as needed for patient comfort.? Use pillows or wedges to support off loading positions. 2. Off Load all bony prominences with use of pillows and heel boots if needed.? Apply Preventative foams where needed. ? 3. Monitor for incontinence and moisture control, use barrier creams when needed for prevention and treatment. 4. Provide adequate and supplemental nutrition.? Nutrition following. 5. Continue low air loss mattress. 6. When applicable maintain blood glucose levels per Providers order. 7. Buttock - Off Load Pressure with Q2hr turns and pillows. Routine cleansing, apply barrier cream twice daily and PRN after episodes of incontinence. Re-consult wound care Nurse for wound deterioration or wound changes.
[2024-10-25] MEDS: Nystatin/Triamcinolone Cream 15 GM TUBE 1 APPL TOPICAL ×2 (13:11→23:08)
--- NOTE | 2024-10-25 14:22 | P.CDIM_ITS ---
PROVIDER RESPONSE TEXT: To clarify, the appropriate diagnosis supported by the clinical indicators: Yes the UTI is related to / associated with / due to the chronic catheter QUERY TEXT: PHYSICIAN'S DOCUMENTATION REQUEST Date of Query: 10/25/2024 07:42 AM EST Patient Name: Justus Burr Admit Date: 10/21/2024 Dear Giulia Alatorre MD, A review of the medical record indicates additional documentation may be needed. Please review below and update the documentation accordingly. Clinical Indicators: Urology progress note dated 10/21 - CC: UTI in setting of chronic suprapubic tube catheter. Progress notes within the written Plan: Sepsis due to acute complicated UTI, recurrent. Seen by ID and discussed urine cultures - continue meropenem. Micro - suprapubic cath 10/21 - Escherichia coli/Trichosporon asahii. Chronic suprapubic catheter, bed-bound. Please clarify the relationship between these conditions, if you agree: Yes the UTI is related to / associated with / due to the chronic catheter No the UTI is not related to / associated with / due to the chronic catheter Other (explain) Clinically unable to determine (explain) Thank you, Purnima Bustamante, CCS, CDIS Use of terms such as suspected, likely, concern for, or probable (associated with a specific diagnosi s that is being evaluated, monitored, or treated as if it exists) are acceptable and can be coded in the inpatient se tting, when documented at the time of discharge. Please use your independent medical judgment in providing your response. THIS QUERY IS PART OF THE PERMANENT MEDICAL RECORD
--- NOTE | 2024-10-25 14:24 | P.PNIM_ITS ---
Subjective Subjective Date of Service: 10/25/24 Interval History: sepsis /uti Review of Systems seems feelling somewhat improving no new c/o. Physical Exam 2 Vital Signs: Vital Signs: Last Vital Signs Temp 97.2 F 10/25/24 11:06 Pulse 91 10/25/24 11:06 Resp 18 10/25/24 11:06 BP 117/79 10/25/24 11:06 Pulse Ox 98 10/25/24 11:06 O2 Del Method Room Air 10/25/24 11:06 BMI result Body Mass Index 25.4 Appearance: Alert.? Oriented X3.? generalised weak cvs: [id number], [id number]. res: clear to auscultation ,no rhonchii or wheezing abd: no rebound or guarding ,nt, bs present. ext pulses present , no cyanosis . neuro: axo3 , at baseline . Objective Data Active Medications Acetaminophen (Acetaminophen 325 Mg Tablet) 650 mg PO Q6H PRN PRN Reason: Pain, Mild 1-3,fever,headache Last Admin: 10/22/24 17:24 Dose: 650 mg Documented By: YAMEL Ascorbic Acid (Ascorbic Acid 500 Mg Tablet) 500 mg PO BID [facility] Last Admin: 10/25/24 09:28 Dose: 500 mg Documented By: ANAM Calcium Carbonate (Calcium Carbonate 750 Mg Tab.Chew) 750 mg PO Q4H PRN PRN Reason: Heartburn Cyclobenzaprine HCl (Cyclobenzaprine Hcl 10 Mg Tablet) 10 mg PO TID [facility] Last Admin: 10/25/24 09:29 Dose: 10 mg Documented By: ANAM Enoxaparin Sodium (Enoxaparin Sodium 40 Mg/0.4 Ml Syringe) 40 mg SUBCUT Q24H [facility] Last Admin: 10/25/24 01:32 Dose: 40 mg Documented By: KRISTEN Guaifenesin (Guaifenesin La 600 Mg Tab.Er.12h) 600 mg PO BID [facility] Last Admin: 10/25/24 09:28 Dose: 600 mg Documented By: ANAM Loratadine (Loratadine 10 Mg Tablet) 10 mg PO DAILY [facility] Last Admin: 10/25/24 09:29 Dose: 10 mg Documented By: ANAM Magnesium Hydroxide (Milk Of Magnesia 30 Ml Oral.Susp) 30 ml PO DAILY PRN PRN Reason: Constipation Last Admin: 10/25/24 06:37 Dose: 30 ml Documented By: KRISTEN Melatonin (Melatonin 3 Mg Tablet) 6 mg PO BEDTIME PRN PRN Reason: Insomnia Meropenem (Meropenem 1 Gm Vial) 1 gm IVPUSH Q8H [facility] Last Admin: 10/25/24 06:37 Dose: 1 gm Documented By: KRISTEN Methenamine Hippurate (Methenamine Hippurate 1 Gm Tablet) 1 gm PO BID [facility] Last Admin: 10/25/24 09:29 Dose: 1 gm Documented By: ANAM Nystatin/Triamcinolone Acetonide (Nystatin/Triamcinolone Cream 15 Gm Tube) 1 appl TOPICAL BID [facility] Last Admin: 10/25/24 13:11 Dose: 1 appl Documented By: ANAM Ondansetron HCl (Ondansetron Hcl 4 Mg/2 Ml Vial) 4 mg IVPUSH Q8H PRN PRN Reason: Nausea and Vomiting Prednisone (Prednisone 20 Mg Tablet) 20 mg PO DAILY [facility] Last Admin: 10/25/24 09:29 Dose: 20 mg Documented By: ANAM Sertraline HCl (Sertraline Hcl 50 Mg Tablet) 50 mg PO DAILY [facility] Last Admin: 10/25/24 09:29 Dose: 50 mg Documented By: ANAM Sodium Chloride (0.9 % Sodium Chloride Flush 3 Ml Syringe) 3 ml IVFLUSH QSHIFT [facility] Last Admin: 10/25/24 09:54 Dose: 3 ml Documented By: ANAM Vitamin D (Cholecalciferol (Vitamin D3) 25 Mcg Tablet) 50 mcg PO DAILY [facility] Last Admin: 10/25/24 09:29 Dose: 50 mcg Documented By: ANAM Labs 10/21/24 05:07 10/25/24 08:22 Labs: Laboratory Results - last 24 hr 10/25/24 10/25/24 08:22 08:54 Hold Purple Top SEE NOTE Anion Gap 11 L Estim Creat Clear Calc 192.5 Estimated GFR > 60 Random Glucose 84 Calcium 8.7 Microbiology Microbiology Results: Microbiology 10/21/24 Unknown Urine Culture - Final Urine Other - Suprapubic Escherichia coli Trichosporon asahii Assessment and Plan (1) Sepsis: Status: Acute (2) Acute UTI: Status: Acute Plan 38-year-old male with 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 Sepsis due to acute complicated UTI, recurrent: leucocytosis seems improving Lactic acid normal and blood culture pending urine cultures this admission grew -gram neg shaka/yeast. previous urine cultures -Does have a history of Enterococcus and Pseudomonas. seen by ID and discussed urine cultures -continue meropenem until urine cultures come back(final), currently no yeast coverage-less likely organism. Tachycardia in the setting of above: tsh boderline low , t4 normal,echo ddimer checked this admit negative blood cultures negative @48 hrs echo added continue fluid resuscitation and antibiotics Mood disorder: On sertraline. acute hypokalemia : added po potassium. Neuromyelitis optica spectrum disorder: On cyclobenzaprine and baclofen Dysphagia: repeat chief electrician eval done :diet adjusted pureed/honey thick DVT prophylaxis: Lovenox ongoing need hospital stay for IV antibiotics and urine culture final awaits , tachycardia workup. Quality Stroke Does the patient have a stroke diagnosis?: No VTE Prior VTE?: No VTE Risk Level:: Medical - moderate - high VTE Device Contraindication: Treatment Not Indicated VTE Drug Contraindication: N/A - Med Ordered
--- NOTE | 2024-10-25 15:05 | MHC.CM.PN ---
EMR reviewed and per MD rounds, pt is not medically cleared for discharge due to management of UTI, receiving IV antibiotics, and awaiting final culture.
--- NOTE | 2024-10-25 16:44 | MHC.SL.SWA ---
Speech Pathologist Impression: Mild to moderate oral and moderate pharyngeal dysphagia Risk of Aspiration Due to: PMH of dysphagia Positioning limitations Mucous management Dysphasia Diet Status: INSURANCE PREMIUM AUDITOR will continue to follow during hospital stay to monitor tolerance of recommendations and re-assess feeding needs. Patient w/ chronic dysphagia, hx MS, recent hospitalization 10/12 for dysphagia. He will likely need continued services (VNA) after discharge. Patient had MBSS in 2021, showed intermittent penetration, but no evidence of aspiration. He may benefit from repeating instrumental assessment given his persistent concerns and neurological dx. Liquid Consistency and Strategies for Safe Swallow: Liquid Intake Recommendation: Honey Thick Liquid Intake Strategies: Liquids by Teaspoon Only Solid Food Consistency: Dietary Recommendations: Pureed (NDD1) Additional Modifications to Solid Foods: Recommend UPGRADE from NPO, start on PUREED (NDD1) solids and HONEY THICK liquids via teaspoon only. Administer pills as tolerated WHOLE or CRUSHED in PUREE (with additional bites puree in between). Oral care daily & before presentation of ice chips. Patient will need 1:1 assistance feeding. Patient to be OOB, upright in chair, when possible during meals. Recommend strategies to promote oral and pharyngeal clearance: small bites/sips & dry swallows after each bite/sip. Oral Medication Intake: Crushed with Puree Please contact the pharmacy regarding appropriate crushable or liquid drug formulations that are available whenever modified delivery is recommended. Compensatory Strategies and Precautions to be Taken for Safe Swallow: Sitting Upright (90 deg) Double Swallow Supersupraglottic Swallow Liquids from Spoon Small Bites and Sips Supervision While Eating and Drinking for Safe Swallow: Total Supervision (1:1) Foods to Avoid: Avoid tough solids and mixed consistencies Swallowing Recommended Treatments: Compens. Strategy Educat. Recommendation for Speech: Inpatient Speech Therapy Speech Therapy through [facility] Modified Barium Swallow Study - Inpatient Modified Barium Swallow Study - Outpatient Comment: Pt has resumed PO with NDD1 and HTL consistencies by tsp only. INSURANCE PREMIUM AUDITOR recc pt be OOB, upright in chair, when possible during meals. Recommended strategies to promote oral and pharyngeal clearance: small bites/sips & dry swallows after each bite/sip. Pt uses throat clear/re-swallow technique to clear material that may enter airway. Further assessment pending at this time to visualize swallow mechanism. Frequency/Duration: M-F PRN while inpatient Date Range for Service Req: Timeline to reassess: PRN Product Responsibility Liaison Clinican/Clinical Fellow: No Supervisory Statement: I have reviewed and agree with the student/clinical fellow's documentation: N/A Speech Language Pathologist: Maral Holman M.S., [facility]-INSURANCE PREMIUM AUDITOR
[2024-10-26 02:58] VITALS: BP 118/75; PULSE 95; RESP 20; TEMP 36.7; O2SAT 98
[2024-10-26] MEDS: Enoxaparin Sodium 40 MG/0.4 ML SYRINGE SUBCUT (02:59)
[2024-10-26] MEDS: Meropenem 1 GM VIAL IVPUSH (07:18)
[2024-10-26] MEDS: Milk of Magnesia 30 ML ORAL.SUSP PO (07:18)
[2024-10-26] MEDS: 0.9 % Sodium Chloride Flush 3 ML SYRINGE IVFLUSH (09:54)
[2024-10-26] MEDS: Cholecalciferol (Vitamin D3) 25 MCG TABLET 50 MCG PO (09:55)
[2024-10-26] MEDS: Ascorbic Acid 500 MG TABLET PO (09:55)
[2024-10-26] MEDS: predniSONE 20 MG TABLET PO (09:55)
[2024-10-26] MEDS: Loratadine 10 MG TABLET PO (09:55)
[2024-10-26] MEDS: Sertraline HCL 50 MG TABLET PO (09:55)
[2024-10-26] MEDS: Cyclobenzaprine HCl 10 MG TABLET PO (09:55)
[2024-10-26] MEDS: Methenamine Hippurate 1 GM TABLET PO (09:56)
--- NOTE | 2024-10-26 11:02 | PM.DS ---
DS: Providers Provider Date of Service: 10/26/24 Date of admission: 10/21/24 02:26 Date of discharge: 10/26/24 Primary care physician: Ebenezer Leslie MD Consults: 10/21/24 03:22 Consult to Infectious Diseases Routine Consulting Provider: [facility] Reason for consultation: Recurrent UTI 10/22/24 09:21 Consult to Wound Care Routine Reason for consultation: ? 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 Patient states he has been having palpitations for the last 2 days, intermittent. He was recently admitted to the hospital and evaluated for dysphagia, MATHEMATICAL SCIENTIST recommended NDD2 foods. Noticed change in odor and color of urine. No fever, chills, nausea, vomiting, chest discomfort, palpitations, shortness of breath, changes in bowel habits. In the emergency department, suprapubic catheter could not be replaced. Patient was septic and urine concerning for UTI. 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 Sepsis due to acute complicated UTI, recurrent: Had leukocytosis, lactic acid normal, blood cultures sent, started on IV antibiotics, consulted ID and urology: With above supportive care patient condition seems to be improved significantly, leukocytosis improving, no fever, urology placed Villatoro and suprapubic catheter changed. blood cultures negative . urine culture grew ecoli(cultures and senstivities reviewed with ID). Id recommended Bactrim 1 tablet p.o. b.i.d. for 10 days and urology recomended after acute treatment patient should be on suppression Bactrim dose 400 mg p.o. daily(start on 11/06/24) -10 days supply given -further supply will be arranged with urology outpatient.no further use methenamine . patient need to follow up with urology outaptient. acute hypokalemia : repleted and resolved. Tachycardia in the setting of above: likely due to above . tsh boderline low , t4 normal(likley in setting of acute sickness)-repeat tsh and free t4 outpatient. ddimer negative echo seems ef:60% blood cultures negative @48 hrs improved with hydration. Dysphagia: repeat benefits manager eval done :diet adjusted pureed/honey thick which was updated today to ground/mech/necter thick. follow up outaptient with speech. plan: check bmp tsh boderline low , t4 normal(an in setting of acute sickness)-repeat tsh and free t4 outpatient. Bactrim 1 tablet p.o. b.i.d. for 10 days and urology recomended after acute treatment patient should be on suppression Bactrim dose 400 mg p.o. daily(start on 11/06/24) -10 days supply given -further supply will be arranged with urology outpatient. Above management discussed with the patient detail length he understand in agreement with the above plan, time spent 40 minute. Time Attestation Total time managing care of this patient today: 40 mintues. Discharge Coordination Time (in mins): 40 min Quality: Safe Use of Opioids Does Pt have an Active Cancer Diagnosis on the Problem List?: No Quality: Stroke Does the patient have a stroke diagnosis?: No Physical Exam Vital Signs: Vital Signs: Last Vital Signs Temp 98.0 F 10/26/24 02:58 Pulse 95 10/26/24 02:58 Resp 20 10/26/24 02:58 BP 118/75 10/26/24 02:58 Pulse Ox 98 10/26/24 02:58 O2 Del Method Room Air 10/26/24 02:58 BMI result Body Mass Index 25.4 Appearance: Alert.? Oriented X3.? generalised weak cvs: rrr, [id number]. res: clear to auscultation ,no rhonchii or wheezing abd: no rebound or guarding ,nt, bs present. suprapubic catheter. ext pulses present , no cyanosis . neuro: axo3 , at baseline . DS: Data Data Completed and Pending Completed studies during hospitalization [Text1]: Procedures Drainage of Bladder with Drainage Device, Percutaneous Endoscopic Approach (10/20/23) Introduction of Vasopressor into Peripheral Vein, Percutaneous Approach (04/05/23) Imaging Chest x-ray: Radiologist's impression: ITS Impressions Chest X-Ray 10/21/24 16:00 IMPRESSION: No active pulmonary disease. Electronically signed by: Dusty Mcgrath MD 10/21/2024 04:10 PM [facility] [place] Discharge Anticipated Discharge Date/Time: 10/26/24 10:40 Patient Disposition: Home Health Service Discharge Diagnosis: sepsis /uti Referrals: [facility] [Outside] - 1 Week Name,MD Ebeneezr [Primary Care Provider] - 1 Week Discharge Medications: New sulfamethoxazole-trimethoprim [Bactrim DS] 800-160 mg tablet 1 tab PO Q12H Qty: 20 0RF sulfamethoxazole-trimethoprim [Bactrim] 400-80 mg tablet 1 tab PO BEDTIME Qty: 10 0RF Rx Instructions: start on 11/06/24. Continued (DME) syringe disposable, irrigation 60 mL syringe See Rx Instructions .Route Qty: 2 5RF Rx Instructions: As directed 2 per month ascorbic acid (vitamin C) [Vitamin C] 500 mg tablet 500 mg PO BID 90 Days Qty: 180 1RF (DME) Villatoro Catheter Tray Tray See Rx Instructions .Route Qty: 2 5RF Rx Instructions: As directed 2 per month (DME) Bardia Urinary Drainage Bag Misc See Rx Instructions .Route Qty: 2 5RF Rx Instructions: As directed, 2 per month (DME) Urinary Leg Bag Misc See Rx Instructions .Route Qty: 4 5RF Rx Instructions: As directed, 4 per month. (DME) Villatoro Catheter 20 Fr misc See Rx Instructions .Route Qty: 2 5RF Rx Instructions: As directed, 2 per month. sertraline 50 mg tablet 50 mg PO DAILY clindamycin phosphate 1 % lotion 1 appl topical BID cyclobenzaprine 10 mg tablet 10 mg PO TID clotrimazole-betamethasone 1-0.05 % cream 1 appl topical BID cholecalciferol (vitamin D3) [Vitamin D3] 50 mcg (2,000 unit) capsule 50 mcg PO DAILY prednisone 20 mg tablet 20 mg PO DAILY acetaminophen 500 mg tablet 500 mg PO Q6H PRN (Reason: mild pain) Discontinued levofloxacin 750 mg tablet 750 mg PO DAILY Qty: 7 0RF amoxicillin 875 mg tablet 875 mg PO BID Qty: 14 0RF methenamine hippurate 1 gram tablet 1 g PO BID Discharge Orders: Discharge Order (Routine); Ordered 10/26/24 Ordered By: Giulia Alatorre Diet: Advance to usual diet Activity on Discharge: As tolerated Stand Alone Forms: Patient Portal Discharge page Print Language: Hungarian Other Ambulatory Orders: Basic Metabolic Panel (Routine) Timeframe: 1 Week Facility: [facility] - Location: Laboratory Ordered By: Giulia Alatorre TSH reflex Free T4 (Routine) Timeframe: 1 Week Facility: [facility] - Location: Laboratory Ordered By: Giulia Alatorre Care Plan Goals: 38-year-old male with 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 Sepsis due to acute complicated UTI, recurrent: Had leukocytosis, lactic acid normal, blood cultures sent, started on IV antibiotics, consulted ID and urology: With above supportive care patient condition seems to be improved significantly, leukocytosis improving, no fever, urology placed Villatoro and suprapubic catheter changed. Id recommended Bactrim 1 tablet p.o. b.i.d. for 10 days and urology recomended after acute treatment patient should be on suppression Bactrim dose 400 mg p.o. daily(start on 11/06/24) -10 days supply given -further supply will be arranged with urology outpatient.no further use methenamine patient need to follow up with urology outaptient. acute hypokalemia : repleted and resolved. Tachycardia in the setting of above: likely due to above . tsh boderline low , t4 normal, ddimer negative echo seems ef:60% blood cultures negative @48 hrs improved with hydration. Dysphagia: repeat benefits manager eval done :diet adjusted pureed/honey thick. follow up outaptient with speech. Health Concerns: as above. bactrim ds 1 tab po bid for 10 days(until 11/05/24) ,afterwards suppression Bactrim dose 400 mg p.o. daily. need to follow up with urology Plan of Treatment: as above. Assessment: as above. Discharge Date/Time: 10/26/24 13:54
--- NOTE | 2024-10-26 12:34 | PC.NURSE ---
Addendum entered by Tami Callahan RN 10/26/24 14:30: system would not allow charting of suprapubic under worklist. multiple RN's and educator attempted to troubleshoot without success. suprapubic was removed, intact. then New #14 suprapubic replaced using sterile procedure, without complications and patient tolerated well. there was immediate urine return from suprapubic and cath secure device in place. Burciaga cath then removed, intact without incident. Pt discharged to senior living with suprapubic in place and draining via ems. Original Note: pt's suprapubic cath changed without incident and with good urine return. burciaga cath removed.
--- NOTE | 2024-10-26 12:44 | MHC.SL.DTX ---
Dysphagia Diet modifications: Last documented Solid diet consistencies: Pureed (NDD1) Last documented Liquid consistency: Honey Thick Changes made to current diet?: Yes Liquid Consistency and Strategies: Liquid Intake Recommendation: Elwin Thick Compensatory Strategies for Safe Swallow: Small Sips Compensatory Strategies for Safe Swallow(b): Sitting Upright (90 deg) No Straw Liquids from Cup Liquids from Straw Small Bites and Sips Alternate Liquids/Solids Rate of Ingestion Change Oral Check Solid Food Consistency: Dietary Recommendations: Grnd/Mech Altered (NDD2) Additional Modifications to Solids: Recommend UPGRADE from NPO, start on PUREED (NDD1) solids and HONEY THICK liquids via teaspoon only. Administer pills as tolerated WHOLE or CRUSHED in PUREE (with additional bites puree in between). Oral care daily & before presentation of ice chips. Patient will need 1:1 assistance feeding. Patient to be OOB, upright in chair, when possible during meals. Recommend strategies to promote oral and pharyngeal clearance: small bites/sips & dry swallows after each bite/sip. Oral Medication Intake: Crushed with Puree Strategies and Precautions to be Taken for Safe Swallow: Sitting Upright (90 deg) No Straw Liquids from Cup Liquids from Straw Small Bites and Sips Alternate Liquids/Solids Rate of Ingestion Change Oral Check Supervision While Eating and/Drinking: Total Assistance (1:1) Foods to Avoid: Mixed consistencies. Swallowing Recommended Treatments: Vocal Cord Adduction Exer Level of Impact on: Daily activities: Severe Community: Severe Prognosis for Improvement: Good Recommendation for Speech: Inpatient Speech Therapy Speech Therapy through [facility] Modified Barium Swallow Study - Inpatient Modified Barium Swallow Study - Outpatient Treatment: Pt with RN attempting to produce phlegm from his throat. He is seen with assistance of a paramedical aide. He states that his lungs are clear, but that he has secretions in his throat he can not bring up. Deep suctioning is not recommended at this time. He verbalizes understanding of his recommendation. He has several cups of Thickened Liquids that must have been from last night as they are of a Pudding-like texture. He tolerated Elwin-Thickened Liquids via spoon and controlled cup sip (with lid). He tolerated Puree Solids and Ground/Mech Solids with prolonged mastication for Ground/Mech > Puree. Before being given this trials he reports, that the Ground trial would take him longer to chew. COUNTY AGENT asked if he wanted to, which he complies. He tells the friction welding machine operator to tell who is feeding him to go slowly. COUNTY AGENT communicates the message to RN verbally. COUNTY AGENT recommending upgrade to Ground/Mech Solids (NDD2) and Elwin-Thick Liquids. Meds Crushed with Puree. He requires 1:1 Feeding Assistance at this time. Ensure Pt is alert, upright (preferably OoB), and given extra time to process each bite given his underlying impairment. Per MD, Pt prepared for discharge. Recommend MBSS as an outpatient due to clinically worsening swallow status. Lpn Instructor Clinican/Clinical Fellow: No Supervisory Statement: I have reviewed and agree with the student/clinical fellow's documentation: N/A Speech Language Pathologist: Dalton Polk M.A., [facility]-COUNTY AGENT
--- NOTE | 2024-10-26 12:46 | MHC.CM.PN ---
Addendum entered by Oliva Kaiser 10/26/24 12:52: [facility] transport auth received (run #[id number]). Original Note: Second IMM given 10/26. This CM met with pt with the assistance of a 4th grade math teacher to discuss his discharge plan. Pt is medically cleared for discharge home with his parents, and resumption of previous VNA services. Pt will transport home via BLS/[facility].
[2024-10-26] MEDS: Sulfamethox/Trimeth 800/160 TABLET 1 TAB PO (13:10)
[2024-10-26] MEDS: Nystatin/Triamcinolone Cream 15 GM TUBE 1 APPL TOPICAL (13:10)
[2024-10-26 13:15] VITALS: BP 125/77; PULSE 113; RESP 16; TEMP 36.5; O2SAT 96
== END 2024-10-26 13:54 | disposition home health service (06) | DRG 698 ==
LOC: HO.ED 10-21 00:11 → HO.EDOVER 10-21 04:15 → HO.IMC 10-21 19:55
PROVIDERS: Admitting Provider Student in an Organized Health Care Education/Training Program; Emergency Provider Emergency Medicine; PCP Internal Medicine Geriatric Medicine; Visit Provider Internal Medicine
DX: T83.510A Infection and inflammatory reaction due to cystostomy catheter, initial encounter (principal); A41.9 Sepsis, unspecified organism; G36.0 Neuromyelitis optica [Devic]; Y82.9 Unspecified medical devices associated with adverse incidents; E87.6 Hypokalemia; R13.10 Dysphagia, unspecified; G35 Multiple sclerosis; B96.20 Unspecified Escherichia coli [E. coli] as the cause of diseases classified elsewhere; N31.9 Neuromuscular dysfunction of bladder, unspecified; Z20.822 Contact with and (suspected) exposure to COVID-19; Z74.01 Bed confinement status; Z87.440 Personal history of urinary (tract) infections; Z87.891 Personal history of nicotine dependence; Z79.52 Long term (current) use of systemic steroids; Z79.899 Other long term (current) drug therapy
CPT/HCPCS: 0241U; 36415; 71045; 80048; 81001; 83605; 83880; 84439; 84443; 84484; 85007; 85027; 85379; 85610; 87040; 87086; 87088; 87186; 92526; 92610; 93005; 93306; 99285; C1758; J0290; J0692; J0696; J1650; J2185; J3480; J7120; Q9957

== ENCOUNTER → 2024-10-20 19:18 | Outpatient (BNV) | payer OTHER, SELFPAY | PROVIDERS: Admitting Provider Student in an Organized Health Care Education/Training Program; Emergency Provider Emergency Medicine; PCP Internal Medicine Geriatric Medicine; Visit Provider Internal Medicine | DX: R94.31 Abnormal electrocardiogram [ECG] [EKG] (principal) | CPT/HCPCS: 93010 ==

== ENCOUNTER → 2024-10-20 20:26 | Outpatient (BNV) | payer OTHER, SELFPAY | PROVIDERS: Emergency Provider Emergency Medicine; PCP Internal Medicine Geriatric Medicine; Visit Provider Student in an Organized Health Care Education/Training Program | DX: A41.9 Sepsis, unspecified organism (principal); N39.0 Urinary tract infection, site not specified | CPT/HCPCS: 99223; 99231; 99499 ==

== ENCOUNTER → 2024-10-21 00:01 | Outpatient (BNV) | payer OTHER, SELFPAY | PROVIDERS: Emergency Provider Emergency Medicine; PCP Internal Medicine Geriatric Medicine; Visit Provider Radiology Diagnostic Radiology | DX: R00.0 Tachycardia, unspecified (principal); R05.9 Cough, unspecified | CPT/HCPCS: 71045 ==

== ENCOUNTER 2024-10-21 02:26 | Outpatient (BNV) | payer OTHER, SELFPAY | END 2024-10-25 07:00 | PROVIDERS: Admitting Provider Student in an Organized Health Care Education/Training Program; Emergency Provider Emergency Medicine; PCP Internal Medicine Geriatric Medicine; Visit Provider Internal Medicine Cardiovascular Disease | DX: R00.0 Tachycardia, unspecified (principal) | CPT/HCPCS: 93306 ==

== ENCOUNTER → 2024-10-21 02:26 | Outpatient (BNV) | payer OTHER, SELFPAY | PROVIDERS: Admitting Provider Student in an Organized Health Care Education/Training Program; Emergency Provider Emergency Medicine; PCP Internal Medicine Geriatric Medicine; Visit Provider Urology | DX: N39.0 Urinary tract infection, site not specified (principal); N31.9 Neuromuscular dysfunction of bladder, unspecified; E87.6 Hypokalemia | CPT/HCPCS: 99222 ==

== ENCOUNTER → 2024-10-21 02:26 | Outpatient (BNV) | payer OTHER, SELFPAY | PROVIDERS: Admitting Provider Student in an Organized Health Care Education/Training Program; Emergency Provider Emergency Medicine; PCP Internal Medicine Geriatric Medicine; Visit Provider Internal Medicine | DX: N31.9 Neuromuscular dysfunction of bladder, unspecified (principal); A41.9 Sepsis, unspecified organism; N39.0 Urinary tract infection, site not specified | CPT/HCPCS: 99222 ==

== ENCOUNTER 2024-11-11 13:25 | Emergency (ER) | payer OTHER, SELFPAY ==
--- NOTE | 2024-11-11 13:54 | ED_ITS ---
HPI - Male Genitourinary General Chief complaint: Urogenital-Male Stated complaint: suprapubic catheter displacement, Citizen Of [place] speaking Time Seen by Provider: 11/11/24 13:34 Source: patient Mode of arrival: EMS History of Present Illness HPI Narrative: This is a 39 years old male with a history of neuromyelitis, bedbound, with a suprapubic catheter year because malfunctioning of the suprapubic catheter. Onset (ago): hour(s) (1) Duration: constant Severity: mild Relieving factors: none Exacerbating factors: none Related Data Sexually active: No Home Medications ?Medication ?Instructions ?Recorded ?Confirmed sertraline 50 mg tablet 50 mg PO DAILY 02/22/24 10/21/24 clindamycin phosphate 1 % lotion 1 appl topical BID 09/10/24 10/21/24 cholecalciferol (vitamin D3) 50 50 mcg PO DAILY 10/11/24 10/21/24 mcg (2,000 unit) capsule (Vitamin D3) clotrimazole-betamethasone 1 1 appl topical BID 10/11/24 10/21/24 %-0.05 % topical cream cyclobenzaprine 10 mg tablet 10 mg PO TID 10/11/24 10/21/24 acetaminophen 500 mg tablet 500 mg PO Q6H PRN mild pain 10/21/24 10/21/24 prednisone 20 mg tablet 20 mg PO DAILY 10/21/24 10/21/24 Previous Rx's ?Medication ?Instructions ?Recorded syringe disposable, irrigation 60 #2 ea 01/06/24 mL ascorbic acid (vitamin C) 500 mg 500 mg PO BID 90 days #180 tabs 05/12/24 tablet (Vitamin C) catheter 20 Fr (Villatoro Catheter) #2 ea 08/19/24 catheterization tray (Villatoro #2 ea 08/19/24 Catheter Tray) urinary bag (Bardia Urinary #2 ea 08/19/24 Drainage Bag) urinary bag (Urinary Leg Bag) #4 ea 08/19/24 sulfamethoxazole 400 1 tab PO BEDTIME #10 tabs 10/26/24 mg-trimethoprim 80 mg tablet (Bactrim) sulfamethoxazole 800 1 tab PO Q12H #20 tabs 10/26/24 mg-trimethoprim 160 mg tablet (Bactrim DS) Allergies Allergy/AdvReac Type Severity Reaction Status Date / Time doxycycline Allergy Rash Verified 11/11/24 14:10 Review of Systems Review of Systems: Yes Unobtainable due to mental condition [facility] Past Medical History Attestation statement: The following information was validated with the patient. 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 Microcytic anemia Multiple sclerosis Headache Surgical History H/O hernia repair Family History Family History Other No family history of coronary artery disease Social History Social History Household Members: Family Household Members Other:: parents Housing: House 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 have visiting nurse or other home services: Yes Unable to assess alcohol history related to: Unknown Alcohol intake: never Patient Tobacco Use Status: Former Tobacco user Tobacco use type: Cigarette Cigarettes Per Day: 0.25 Smoked in Last 30 Days: No Use of substances other than those prescribed or required for medical reasons: Yes Substance Use Type: Marijuana Substance Use Frequency: Occasionally Last Used Substance: Days (ago) Advance Directives: Yes Advance Directives on File: Yes Advance Directives Date on File: 08/21/22 Do you have a plan to hurt others: No Plan service: No Current occupational status: disabled Physical Exam Vital Signs: Vital Signs: Last Vital Signs Temp 98.2 F 11/11/24 14:59 Pulse 66 11/11/24 14:59 Resp 14 11/11/24 14:59 BP 120/60 11/11/24 14:59 Pulse Ox 98 11/11/24 14:59 O2 Del Method Room Air 11/11/24 14:59 BMI result Body Mass Index 0.3 No acute distress comfortable in the stretcher Const: General: well developed Nutritional Appearance: average body habitus HEENT: Head: Yes normal to inspection Mouth: Normal oral and palatal mucosa present Chest: Chest palpation & inspection: normal inspection of the chest Resp: Effort & Inspection: normal respiratory effort Cardio: Jugular venous distension: no JVD Rate: regular rate Rhythm: regular rhythm GI: Inspection: Yes normal to inspection Palpation (GI): Soft to palpation Skin: General skin exam: no rashes or lesions noted and elasticity normal Lesions: no lesions Rashes: no rashes Neuro: Other: At baseline Medical Decision Making Medical Decision Making MDM Narrative: Patient year to have the suprapubic catheter check, we flushed the catheter he is draining well no issue Differential Diagnosis Differential Diagnoses: The differential diagnosis associated with the presentation includes Clotted catheter/ dislodged catheter Independent Historian Clinical information obtained from an independent historian. History obtained from or confirmed by: EMS Discharge Plan Discharge Clinical Impression: Chronic suprapubic catheter Patient Disposition: Home, Self-Care Instructions: Villatoro Catheter Placement and Care (ED) Prescriptions: No Action (DME) syringe disposable, irrigation 60 mL syringe See Rx Instructions .Route Qty: 2 5RF Rx Instructions: As directed 2 per month ascorbic acid (vitamin C) [Vitamin C] 500 mg tablet 500 mg PO BID 90 Days Qty: 180 1RF (DME) Villatoro Catheter Tray Tray See Rx Instructions .Route Qty: 2 5RF Rx Instructions: As directed 2 per month (DME) Bardia Urinary Drainage Bag Misc See Rx Instructions .Route Qty: 2 5RF Rx Instructions: As directed, 2 per month (DME) Urinary Leg Bag Misc See Rx Instructions .Route Qty: 4 5RF Rx Instructions: As directed, 4 per month. (DME) Villatoro Catheter 20 Fr misc See Rx Instructions .Route Qty: 2 5RF Rx Instructions: As directed, 2 per month. sertraline 50 mg tablet 50 mg PO DAILY clindamycin phosphate 1 % lotion 1 appl topical BID cyclobenzaprine 10 mg tablet 10 mg PO TID clotrimazole-betamethasone 1-0.05 % cream 1 appl topical BID cholecalciferol (vitamin D3) [Vitamin D3] 50 mcg (2,000 unit) capsule 50 mcg PO DAILY prednisone 20 mg tablet 20 mg PO DAILY acetaminophen 500 mg tablet 500 mg PO Q6H PRN (Reason: mild pain) sulfamethoxazole-trimethoprim [Bactrim DS] 800-160 mg tablet 1 tab PO Q12H Qty: 20 0RF sulfamethoxazole-trimethoprim [Bactrim] 400-80 mg tablet 1 tab PO BEDTIME Qty: 10 0RF Rx Instructions: start on 11/06/24. Interventions: ED Discharge Assessment Last Done: 11/11/24 14:59 Discharge Date/Time: 11/11/24 15:00 Print Language: Citizen Of [place]
[2024-11-11 13:59] VITALS: BP 136/97; PULSE 105; RESP 16; TEMP 36.9; O2SAT 99
[2024-11-11 14:09] VITALS: BP 122/82; PULSE 119; O2SAT 97
--- NOTE | 2024-11-11 14:16 | PC.NURSE ---
Patient with indwelling suprapubic burciaga cath that is intact and draining clear yellow urine, patient offers no complaints at this time and denies any pain in the burciaga itself. I did flush with approx 3 cc of normal saline and it flushed without any complications, MD aware.
--- NOTE | 2024-11-11 14:19 | MHC.CM.ED ---
Received case management consult from Dr Bejarano. Patient came to the ER due to issues with his suprapubic catheter. Dr Bejarano is ready to d/c patient and is unable to reach family. Patient has MS and is bedbound. Attempted to speak with David via telephone at [phone]. Phone is not accepting calls at this time. Attempted to reach mother at [phone]. No answer. Unable to leave a voicemail because the mailbox is full. Spoke with You via telephone at [phone]. Her , Shadi is patient's primarey GATE TENDER. Shadi will be at patient's home to accept patient back into apartment. Dimple FRAGA booked for 3pm. Med nec with chart. Dr Bejarano aware. Continue to monitor for d/c needs.
[2024-11-11 14:41] VITALS: BP 124/97; PULSE 108; RESP 18; TEMP 37.3; O2SAT 98
[2024-11-11 14:59] VITALS: BP 120/60; PULSE 66; RESP 14; TEMP 36.8; O2SAT 98
--- OUTSIDE RECORDS SUMMARY | 2024-11-11 18:11 | XMS_ITS | Encounter Summary ---
Author Organization [employer] Address [address] [facility] [address] [place] [address] Care Team Providers Care Supervisor Of Instruction Name Role Phone Name, Ebenezer ROGERS Primary Care Provider [phone] Reason for Visit * Reason Onset Date Comments Durable Medical Equipment 10/08/2024 Encounter Details Date Type Department Care Team ([facility] st Contact Info) Description 10/08/2024 Telephone [facility] [address] [place] [address] Name, MD Ebenezer [address] [place] [address] Durable Medical Equipment Social History Tobacco Use Types Packs/Day Years Used Date Smoking Tobacco: Former Cigarettes Alcohol Use Standard Drinks/Week Comments Not Currently 0 (1 standard drink = 0.6 oz pur e alcohol) Alcohol Answer Date Recorded Frequency of Alcohol Consumption Not on file 05/17/2024 Average Number of Drinks Not on file 024 Frequency of Binge Drinking Not on file 02/2024 Score 0 05/17/2024 Depression Answer Date Recorded Patient Health Questionnaire-9 Score 13 08/04/2024 Patient Health Questionnaire-9 Score 13 08/04/2024 Last PHQ-9: Questionnaire Data Not on file 1 Housing Stability Answer Date Recorded What is your housing situation today? I have zohaib singh 07/30/[address] you li ve. Do you have problems with any of the following? None of the above 07/30/2023 Food Insecurity Answer Date Recorded Within the past 12 months, y ou worried that your food would run out before you got money to buy more: Never True 07/30/2023 Within the past 12 months,th e food you bought just didn't last and you didn't have enough money to get more: Never True Transportation Answer Date Recorded In the past 12 months, has l ack of transportation kept you from medical appts, meetings, work or from getting things needed for daily living? No 07/30/2023 Utilities Answer Date Recorded In the past 12 months, has t he electric, gas, oil or water company threatened to shut off services in your home? No 07/30/2023 Depression Answer Date Recorded Patient Health Questionnaire-2 Score 2 08/04/2024 Sex and Gender Information Value Date Recorded Sex Assigned at Male 08/12/2022 10:27 AM EDT Legal Sex Male 10:27 AM EDT Gender Identity Male 08/12/2022 10:27 AM EDT Sexual Orientation Straight 08/12/2022 10 :27 AM EDT documented as of this encounter Miscellaneous Notes * Telephone Encounter - Anastacia Meyer - 10/12/2024 11:53 AM EST DME order for Hospital bed and duyen lift in progress. Rx for wheelchair generated and sent to pcp.Pending e-signature via [employer]. . * Telephone Encounter - Breonna Daniel - 10/08/2024 10:06 AM EST Tc from [place] with [facility] requesting a new hospital bed with trapeze and side rails. Also a duyen lift and wheelchair. Any questions contact: [phone] Eunice documented in this encounter Plan of Treatment Upcoming Encounters Date Type Department Care Team ([facility] st Contact Info) Description 11/17/2024 10:30 AM EST Office Visit [facility] [address] [place] [address] Name, MD Ebenezer [address] [place] [address] documented as of this encounter Visit Diagnoses Not on filedocumented in this encounter Additional Health Concerns Assessment Noted Time PHQ-9 Depression Total Score: 13 024 10:48 AM EDT documented as of this encounter Care Teams Supervisor Of Instruction Relationship Specialty Start Date End Date Name, MD Ebenezer [address] [place] [address] PCP - General Family Medicine 06/07/22 [email or web address] 01/06/23 documented as of this encounter
--- OUTSIDE RECORDS SUMMARY | 2024-11-11 18:11 | XMS_ITS | Encounter Summary ---
Author Organization [employer] Address [address] [place] [address] Care Team Providers Care Veterinary Microbiologist Name Role Phone Name, Ebenezer ROGERS Primary Care Provider [phone] Reason for Visit * Reason Onset Date Comments Miles recalls 10/14/2024 Encounter Details Date Type Department Care Team (Late st Contact Info) Description 10/14/2024 Telephone [facility] MEDICINE [address] [place] [address] Carlos Case MA Miles recalls Social History Tobacco Use Types Packs/Day Years [...] encounter Miscellaneous Notes * Telephone Encounter - Carlos Case MA - 10/14/2024 1:42 PM EST T/C -[place] unable to reach pt,or lvm for pt to call back so we could schedule _follow up appt, Phone says unavailable to leave VM, if pt calls back you could transfer call to [facility] , letter sent . documented in this encounter Plan of Treatment Upcoming Encounters Date Type Department Care Team (Late st Contact Info) Description 11/17/2024 10:30 AM EST Office Visit [facility] MEDICINE [address] [place] [phone] Name, MD Ebenezer [address] [place] [address] documented as of this encounter Visit Diagnoses Not on filedocumented in this encounter Additional Health Concerns Assessment Noted Time PHQ-9 Depression Total Score: 13 024 10:48 AM EDT documented as of this encounter Care Teams Veterinary Microbiologist Relationship Specialty Start Date End Date Name, MD Ebenezer [address] [place] [phone] PCP - General Family Medicine 06/07/22 [employer] 01/06/23 documented as of this encounter
--- OUTSIDE RECORDS SUMMARY | 2024-11-11 18:11 | XMS_ITS | Encounter Summary ---
Author Organization [employer] Address [address] [facility] [address] [place] [address] Care Team Providers Care Route Sales Representative Name Role Phone Name, Ebenezer ROGERS Primary Care Provider [phone] Reason for Visit * Reason Onset Date Comments Nurse Triage 10/20/2024 Encounter Details Date Type Department Care Team ([facility] st Contact Info) Description 10/20/2024 Telephone [facility] [address] [place] [address] Name, MD Ebenezer [address] [place] [address] Nurse Triage Social History Tobacco Use Types Packs/Day Years [...] encounter Miscellaneous Notes * Telephone Encounter - Beverley Echols RN - 10/29/2024 2:00 PM EST S Liaison states that pt was recently discharged from the hospital on honey thick liquids but wasnot provided thickening packets. Pt was discharged form [facility] on 10/26/25 Dx: Sepsis, Acute UTI. [facility] notes indicate pt was discharged with recommendations for ground/mech/nectar due to dysphagia and recommended to f/u outpatient with speech. Pt was evaluated in [facility] ED 10/27/24 Dx: MS, UTI T/C placed to pt to schedule HDF. No answer. No option to leave voicemail. * Telephone Encounter - Kimberly Madrid RN - 10/20/2024 4:53 PM EST Triage call to Pt , phone is not working. Call to Sulma who is Pt nurse and Sulma reports increasedheart rate to 120beats/min last two days. Pt is having difficulty swallowing, nurse is having difficulty giving pills, Pt declines to drink water with thick it. Nurse has requested ice cream, puddingbut, family has not obtained yet. Nurse is concerned about rapid heart rate and possible aspiration. Visit from [facility] is offered and accepted. Will contact at this time and [facility] will visit Pt . Call to [facility] unable to get through on line. Spoke with [facility] personnel. Pt was triaged with [facility] nurse as well , information given , address and phone, [facility], pharmacy, and specifics that required this call. they will go out to see Pt. Due to staff low may need to go in morning but, they will contact Pt to schedule in morning if needed. Protocol Used: Swallowing Difficulty (Adult) Protocol-Based Disposition: See in Office or Video Visit within 2 Weeks Positive Triage Question: * Swallowing difficulty is a chronic symptom (recurrent or ongoing AND present > 4 weeks) * All higher-acuity triage questions were negative Care Advice Discussed: * Reasons To Call Back - Sensation of pill being stuck does not go away completely - You become worse. * Telephone Encounter - Sergio Orosco - 10/20/2024 4:10 PM EST Symptom: Heartbeat Symptoms (Fast, Slow, or Irregular) Outcome: Schedule an urgent appointment (within 1 hour) or talk to a nurse or provider soon Reason: Started within the past 3 days The caller accepted this outcome. documented in this encounter Plan of Treatment Upcoming Encounters Date Type Department Care Team (Late st Contact Info) Description 11/17/2024 10:30 AM EST Office Visit [facility] [address] [place] [phone] Name, MD Ebenezer [address] [place] [phone] documented as of this encounter Visit Diagnoses Not on filedocumented in this encounter Additional Health Concerns Assessment Noted Time PHQ-9 Depression Total Score: 13 024 10:48 AM EDT documented as of this encounter Care Teams Route Sales Representative Relationship Specialty Start Date End Date NameEbenezer MD [address] [place] [id number] PCP - General Family Medicine 06/07/22 [employer] 3/27/23 documented as of this encounter
--- OUTSIDE RECORDS SUMMARY | 2024-11-11 18:11 | XMS_ITS | Clinical Summary ---
Author Organization [employer] Address [address] [facility] [address] [place] [address] Care Team Providers Care Filtrose Crusher Name Role Phone Name, Ebenezer ROGERS Primary Care Provider [phone] Allergies No known active allergies Medications * This document contains information received from the source organization and may not represent a complete record from that organization. D3 Super Strength 50 MCG (1999) capsuleIndicati ons:Multiple sclerosis (CMS/HCC) TAKE 1 CAPSULE BY MOUTH EVERY MORNING 30 capsule 11 4 Active gabapentin (Neurontin) 300 MG capsule TAKE 1 CAPSULE BY MOUTH DAILY AT BEDTIME FOR 1 WEEK THEN 2 CAPSULES AT BEDTIME MAY TAKE 1 ADDITIONAL CAPSULE IN THE MORNING as tolerated 4 Active predniSONE (Deltasone) 20 MG tablet Take 20 mg by mouth Once per day. 4 Active Acetaminophen Extra Strength 500 MG tablet TAKE 1 TABLET BY MOUTH EVERY 6 HOURS NEEDED FOR MILD PAIN 112 tablet 11 4 Active Ascorbic Acid (vitamin C) 500 MG tablet Take 2 tablets (1,000 mg) by mouth Once per day. 60 tablet 11 4 08/04/20 25 Active cyclobenzaprine (Flexeril) 10 MG tablet Take 1 tablet (10 mg) by mouth 3 times daily. 90 tablet 11 4 08/04/20 25 Active clindamycin (Cleocin T) 1 % lotion Apply topically 2 times daily. 60 mL 5 4 08/04/20 25 Active clotrimazole-be tamethasone (Lotrisone) cream APPLY TOPICALLY TO THE AFFECTED AREA(S) TWICE DAILY DIRECTED FOR 28 DAYS 45 g 2 4 Active sertraline (Zoloft) 50 MG tablet TAKE 1 TABLET BY MOUTH EVERY DAY IN THE MORNING 30 tablet 2 Active Active Problems Problem Noted Date Diagnosed Date Other osteoporosis without current pathological fracture 10/14/2024 Acute on chronic urinary retention 11/06/2023 11/06/2023 Acute orchitis 11/06/2023 11/06/2023 Closed head injury 11/06/2023 11/06/2023 Mourning 11/06/2023 11/06/2023 of family member 08/18/2023 Encephalopathy 08/11/2023 08/11/2023 Generalized weakness 08/11/2023 08/11/2023 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 Pt declines at this time. Information to connect with [facility] provided. He agreed to reach out to our BH department in the event he wanted to speak to a clinician or wanted additional services. 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 Date Type Department Care Team Description 11/03/2024 Telephone [facility] [address] [address] Ebenezer Leslie MD verbal order request 10/21/2024 Orders Only GENERIC EXTERNAL DATA DEPARTMENT Provider, Generic External Data 10/20/2024 Telephone [facility] [place] [address] Ebenezer Leslie MD Nurse Triage 10/18/[address] [address] Ebenezer Leslie MD FYI 10/15/[address] [address] Ebenezer Leslie MD 10/14/[address] [address] Carlos Case MA Miles recalls 10/08/[address] [address] Ebenezer Leslie MD Durable Medical Equipment 10/08/[address] [address] Ebenezer Leslie MD Request For Order(s) 10/07/[address] [address] Ebenezer Leslie MD ED Follow up 10/03/2024 Orders Only GENERIC EXTERNAL DATA DEPARTMENT Provider, Generic External Data 09/30/[address] [address] Kevin Calle [place] DME from [facility] 09/29/[address] [address] Ebenezer Leslie MD 09/18/2024 Orders Only GENERIC EXTERNAL DATA DEPARTMENT Provider, Generic External Data 09/17/[address] [address] Ebenezer Leslie MD Request For Order(s) 09/16/2024 Telephone [facility] [address] [place] [address] Carlos Case MA Dme - lift reclincer 09/16/[address] [address] Ebenezer Leslie MD 09/13/[address] [address] Kevin Calle [place] DME from [facility] 09/07/2024 Orders Only GENERIC EXTERNAL DATA DEPARTMENT Provider, Generic External Data 09/02/[address] [address] Ebenezer Leslie MD Durable Medical Equipment 09/02/[address] [address] Carlos Case [place] Durable Medical Equipment 09/02/[address] [address] Merry Baird RN 08/30/[address] [address] Ebenezer Leslie MD Durable Medical Equipment 08/21/2024 Refill [facility] [address] [place] [address] Ebenezer Leslie MD 08/19/2024 Refill [facility] [address] [place], [place] [phone] Ebenezer Leslie MD 08/17/2024 Orders Only GENERIC EXTERNAL DATA DEPARTMENT Provider, Generic External Data 08/13/[address] [address] Ebenezer Leslie MD ER Follow-up 08/12/2024 Orders Only GENERIC EXTERNAL DATA DEPARTMENT Provider, Generic External Data from Last 3 Months Immunizations Name Administration Dates Next Due Influenza injectable quadriv alent IIV4 with preservative 08/13/2016 Influenza injectable quadrivalent preservative f ree 08/11/2023,10/23/2022 Influenza, IIV3, injectable 12/14/2015 Influenza, seasonal, injectable, preservative fr ee 08/04/2024 Pfizer Covid-19 Vaccine 12+ 08/04/2024 Pfizer Covid-19 Vaccine 12+ Bivalent 01/29/2023 Pneumococcal Conjugate PCV 20 08/11/2023 Pneumococcal Polysaccharide PPSV23 12/15/2015 Tdap 05/09/2022 Social History Tobacco Use Types Packs/Day Years Used Date Smoking Tobacco: Former Cigarettes Tobacco Cessation:Counseling Given: Not Answered Alcohol Use Standard Drinks/Week Comments Not Currently [...] Orientation Straight 08/12/2022 10 :27 AM EDT Last Filed Vital Signs Vital Sign Reading Time Taken Comments Blood Pressure 126/79 08/04/2024 10:13 AM EDT Pulse 90 08/04/2024 10:13 AM EDT Temperature 36.2 ??C (97.2 ??F) 05/17/2024 11:13 AM E DT Respiratory Rate 21 08/04/2024 10:13 AM EDT Oxygen Saturation 98% 08/04/2024 10:13 AM EDT Inhaled Oxygen Concentration - - Weight 98.9 kg (218 lb) 08/04/2024 10:13 AM EDT Height 175.3 cm (5' 9 ) 08/04/2024 10:13 AM EDT Body Mass Index 32.19 08/04/2024 10:13 AM EDT Plan of Treatment Upcoming Encounters Date Type Department Care Team (Late st Contact Info) Description 11/17/2024 10:30 AM EST Office Visit [facility] [address] [place] [address] [phone] Name, MD Ebenezer [address] [place] [address] Health Maintenance Due Date Last Done Comments HIV Screening 1985 Lipid Panel 1984 Family Planning (PISQ) 1999 Hepatitis C Screening 2002 Hepatitis B Vaccines (1 of 3 - 19+ 3-dose series) 2003 Dental X-Ray: Full Mouth 12/22/2019 12/20/2016 Dental Oral Exam 06/09/2023 12/09/2022 Dental X-Ray: Bitewings 12/10/2023 12/09/2022 Dental Prophylaxis 04/01/2024 09/30/2023, 12/12/2020 SDOH Screening 10/24/2024 10/24/2023 Depression Monitoring (PHQ-9) 02/02/2025 08/04/2024, 08/04/2024 Alcohol/Substance Use Screening 05/17/2025 05/17/2024 Depression Screening 08/04/2025 08/04/2024, 08/04/20 24 Tobacco Screening 08/04/2025 08/04/2024 DTaP/Tdap/Td Vaccines (2 - Td or Tdap) 05/09/2032 05/09/2022 Zoster Vaccines (1 of 2) 2034 RSV Patients and Patients Aged 60 years or older (1 - 1-dose 75+ series) 2059 Pneumococcal Vaccine: Pediatrics (0 to 5 Years) and At-Risk Patients (6 to 49) Years) Aged Out 08/11/2023, 12/15/2015 No longer eligibl e based on patient's age to complete this topic COVID-19 Vaccine Completed 08/04/2024, , 08/14/2021, Additional history exists Influenza Vaccine Completed 08/04/2024, , 10/23/2022, Additional history exists HIB Vaccines Aged Out No longer eligi ble based on patient's age to complete this topic HPV Vaccines Aged Out No longer eligi ble based on patient's age to complete this topic Hepatitis A Vaccines Aged Out No long er eligible based on patient's age to complete this topic IPV Vaccines Aged Out No longer eligi ble based on patient's age to complete this topic Meningococcal Vaccine Aged Out No matt hans eligible based on patient's age to complete this topic RSV under 20 months Aged Out No longe r eligible based on patient's age to complete this topic Rotavirus Vaccines Aged Out No longer eligible based on patient's age to complete this topic Procedures Procedure Name Priority Date/Time Associated Diagnosis Comments XR CHEST 1 VIEW Routine 10/21/2024 4:00 PM EST URINALYSIS, COMPLETE, WITH REFLEX TO CULTURE Routine 10/21/2024 1:41 AM EST B TYPE NATRIURETIC PEPTIDE (BNP) Routine 10/21/2024 1:24 AM EST SARS COV2/INFLUENZA A/B AND RSV RNA QL NAAT Routine 10/21/2024 1:13 AM EST LACTIC ACID Routine 10/21/2024 1:10 AM EST XR CHEST 1 VIEW Routine 10/21/2024 12:59 AM EST LACTIC ACID Routine 10/03/2024 8:36 PM EST URINALYSIS, COMPLETE, WITH REFLEX TO CULTURE Routine 09/18/2024 1:40 PM EST CULTURE, URINE, ROUTINE Routine 09/18/2024 12:00 AM EST URINALYSIS, COMPLETE, WITH REFLEX TO CULTURE Routine 09/07/2024 9:58 AM EST URINALYSIS WITH REFLEX MICROSCOPIC Routine 09/07/2024 9:[address] ABDOMEN PELVIS W CONTRAST Routine 09/07/2024 7:35 AM EST CULTURE, URINE, ROUTINE Routine 09/07/2024 12:00 AM EST BD DEXA AXIAL Routine 09/01/2024 10:15 AM EST On prednisone therapy SLIDE REVIEW Routine 08/17/2024 12:22 PM EST CBC WITH AUTO DIFFERENTIAL Routine 08/17/2024 12:22 PM EST MAGNESIUM Routine 08/17/2024 12:22 PM EST COMPREHENSIVE METABOLIC PANEL Routine 08/17/2024 12:22 PM EST SARS COV2/INFLUENZA A/B AND RSV RNA QL NAAT Routine 08/17/2024 12:22 PM EST STREP A NUCLEIC ACID Routine 08/17/2024 12:22 PM EST CULTURE, URINE, ROUTINE Routine 08/12/2024 12:00 AM EDT PROPHYLAXIS - ADULT Routine 09/30/2023 1 1:00 AM EST Periodontal disease Dental calculus BITEWINGS - 4 RADIOGRAPHIC IMAGES Routine 12/09/2022 1:00 PM EST PERIODIC ORAL EVALUATION - ESTABLISHED PATIENT Routine 12/09/2022 1:00 PM EST from Last 3 Months or Most Recently Relevant to Health Maintenance Results * XR Chest 1 View (10/21/2024 4:00 PM EST) Only the most recent of2 resultswithin the time period is included. Anatomical Region Laterality Modality Chest Radiographic Miriam ging 10/21/2024 4:00 PM EST Narrative 10/21/2024 4:13 PM EST ? [facility] ?[address] ?[place] [address] ?XRay Report ? Signed ? Patient: Justus Burr ?MR#: [id number] ?? [id number] ? : 1985 ?Acct:[id number] ? Age/Sex: 39 / M ?ADM Date: 10/21/24 ? Loc: [facility].[place] ?[facility]-2 ? Attending Dr: Giulia Alatorre MD ? Ordering Physician: Giulia Alatorre MD ?? Date of Service: 10/21/24 ?? Procedure(s): XR chest 1V ?? Accession Number(s): [id number] ? cc: Ebenezer Leslie MD; Giuila Alatorre MD ? EXAMINATION: ?? XR CHEST ? CLINICAL INFORMATION: ?? ? cough/choking episode ? COMPARISON: ?? 10/21/2024 at 12:09 AM. ?? 10/11/2024. ? TECHNIQUE: ?? Frontal view of the chest was obtained. ? FINDINGS: ?? No significant abnormality is noted involving the heart, lungs, ?? mediastinum, bony thorax or soft tissues. ? XR/XR chest 1V ?? IMPRESSION: ?? No active pulmonary disease. ? Electronically signed by: ??Dusty Mcgrath MD ??10/21/2024 04:10 PM EST RP ?? Work[facility]: [id number] ? Dictated By: ?Dusty Mcgrath MD ? Signed By: ?<Electronically signed by Dusty Mcgrath MD in OV> ?10/21/24 1610 ? DD/ 1600 ? TD/TT: 10/21/24 1603 ? Explosive Ordnance Disposal Technician: ? Procedure Note Kinsey Andersen - 10/21/[address] [address] XRay Report Signed Patient: Justus BurrMR#: [id number] : 1985Acct:[id number] Age/Sex: 39 / MADM Date: 10/21/24 Loc: [facility]: Giulia Alatorre MD Ordering Physician: Giulia Alatorre MD Date of Service: 10/21/24 Procedure(s): XR chest 1V Accession Number(s): [id number] cc: Name,Ebenezer ROGERS; Giulia Alatorre MD EXAMINATION: XR CHEST CLINICAL INFORMATION: ? cough/choking episode COMPARISON: 10/21/2024 at 12:09 AM. 10/11/2024. TECHNIQUE: Frontal view of the chest was obtained. FINDINGS: No significant abnormality is noted involving the heart, lungs, mediastinum, bony thorax or soft tissues. XR/XR chest 1V IMPRESSION: No active pulmonary disease. Electronically signed by: Dusty Mcgrath MD 10/21/2024 04:10 PM EST Dictated By: Dusty Mcgrath MD Signed By: <Electronically signed by Dusty Mcgrath MD in OV> 10/21/24 1610 DD/ 1600 TD/TT: 10/21/24 1603 Explosive Ordnance Disposal Technician: [facility] External Provider IMG XR PROCEDURES Final Result * (ABNORMAL) Urinalysis, Complete, with Reflex to Culture (10/21/2024 1:41 AM EST) Only the most recent of3 resultswithin the time period is included. Color Urine Dark Yellow [facility] Appearance Urine Turbid [facility] PH 6.0 5.0 - 9.0 [facility] Glucose Urine UA Negative Negative mg/dL [facility] Urine Blood Large (3+)(A) Negative [facility] Specific [place] - Urine >=1.030(H) 1.005 - 1.025 [facility] Urine Protein 300 (3+)(A) Neg-Trace mg/dL [facility] Urine Ketones 15 Negative mg/dL [facility] Nitrite Urine Negative Negative [facility] Leukocyte Esterase Urine Large (3+)(A) Negative [facility] RBC Urine >20(A) 0 - 2 /HPF [facility] Urine WBC >50(A) 0 - 5 /HPF [facility] Urine Squamous Epithelial Cell 3-5 0 - 2 /HPF [facility] CALCIUM OXALATE CRYSTAL, UR Present [facility] Urine Bacteria Trace None Seen [facility] Hyaline Casts, Urine >20 0 - 2 /LPF [facility] Urine Yeast Present [facility] 10/21/2024 1:41 AM EST 10/21/2024 1:46 AM EST Narrative [facility] - 10/21/2024 2:00 AM EST [id number], Suprapubic Generic External Data Provider LAB URINE ORDERAB LES Final Result Performing Organization Address [facility] Co de Phone Number [facility] [address] [place] [phone] * B Type Natriuretic Peptide (BNP) (10/21/2024 1:24 AM EST) B Type Natriuretic Peptide <10 <100 pg/mL [facility] Comment:For those patients w ho are being treated with Natrecor(nesiritide, recombinant BNP), BNP testing should beperformed at least two hours post treatment in order toensure that only endogenous levels of BNP are detected. 10/21/2024 1:24 AM EST 10/21/2024 1:47 AM EST us Generic External Data Provider LAB BLOOD ORDERAB LES Final Result Performing Organization Address [facility] Co de Phone Number [facility] [address] [place] [phone] * SARS-CoV-2 RNA, Influenza A/B, and RSV RNA, Ql NAAT (10/21/2024 1:13 AM EST) Only the most recent of2 resultswithin the time period is included. Influenza A PCR NEGATIVE Negative [facility] Influenza B PCR NEGATIVE Negative [facility] Resp Syncy Virus RNA Qual PCR NEGATIVE Negative [facility] SARS COV2 PCR NEGATIVE Negative [facility] Comment:All test results mus t be correlated with clinical findings.Negative results do not preclude SARS-CoV2, influenza Avirus, influenza B virus and/or RSV infectionand should not be used as the sole basis for treatment orother patient management decisions. Negative results must becombined with clinical observations, patient history, andepidemiological information.This test has not been evaluated for monitoring treatment ofinfection.This test has been authorized by the FDA under an EmergencyUse Authorization (EUA) for use by authorized laboratories.Testing performed on the [facility] GeneXpert utilizingreal-time RT-PCR.All SARS CoV2 and positive influenza A/B results arereported to [facility]. 10/21/2024 1:13 AM EST 10/21/2024 1:17 AM EST Generic External Data Provider LAB MICROBIOLOGY - GENERAL ORDERABLES Final Result Performing Organization Address City/[facility]/ZIP Co de Phone Number [facility] [address] [place] [phone] * Lactic Acid (10/21/2024 1:10 AM EST) Only the most recent of2 resultswithin the time period is included. Lactic Acid 1.4 0.5 - 2.0 mmol/L [facility] 10/21/2024 1:10 AM EST 10/21/2024 1:14 AM EST Generic External Data Provider LAB BLOOD ORDERAB LES Final Result Performing Organization Address [facility] Co de Phone Number [facility] [address] [place] [phone] * Culture, Urine, Routine (09/18/2024 12:00 AM EST) Only the most recent of3 resultswithin the time period is included. Urine Urine specimen from urinary conduit / Unknown 09/18/2024 09/18/2024 Comment:Urine Cath Narrative [facility] - 09/22/2024 7:40 AM EST Pseudomonas aeruginosa Quant > 100,000 cfu/mL Enterococcus faecalis Quant > 100,000 cfu/mL Pseudomonas aeruginosa: Cefepime 8(S) Pseudomonas aeruginosa: Ciprofloxacin 0.5(S) Pseudomonas aeruginosa: Gentamicin <=1(S) Pseudomonas aeruginosa: Meropenem 1(S) Enterococcus faecalis: Ampicillin <=2(S) Enterococcus faecalis: Levofloxacin 1(S) Enterococcus faecalis: Nitrofurantoin <=16(S) Enterococcus faecalis: Tetracycline >=16(R) Enterococcus faecalis: Vancomycin 1(S) Specimen Source: Urine Catheterized us Generic External Data Provider LAB MICROBIOLOGY - GENERAL ORDERABLES Final Result Performing Organization Address [facility] Co de Phone Number [facility] [address] [place] [phone] * (ABNORMAL) Urinalysis w/reflex microscopic (09/07/2024 9:58 AM EST) Color Urine Yellow [facility] Appearance Urine Turbid [facility] PH 8.0 5.0 - 9.0 [facility] Glucose Urine UA Negative Negative mg/dL [facility] Urine Blood Trace Negative [facility] Specific [place] - Urine 1.015 1.005 - 1.025 [facility] Urine Protein 300 (3+)(A) Neg-Trace mg/dL [facility] Urine Ketones Negative Negative mg/dL [facility] Nitrite Urine Positive(A) Negative [facility] Leukocyte Esterase Urine Large (3+)(A) Negative [facility] 09/07/2024 9:58 AM EST 09/07/2024 10:06 AM EST Narrative [facility] - 09/07/2024 10:22 AM EST Urine, Suprapubic us Generic External Data Provider LAB URINE ORDERAB LES Final Result Performing Organization Address City/[facility]/ZIP Co de Phone Number [facility] [address] [place] [phone] * CT Abdomen Pelvis w/ Contrast (09/07/2024 7:35 AM EST) Anatomical Region Laterality Modality Body, Pelvis, Abdomen Computed T omography 09/07/2024 7:35 AM EST Narrative 09/07/2024 2:16 PM EST ? [facility] ?[address] ?[place] [address] ? CT Scan Report ? Signed ? Patient: Justus Burr ?MR#: [id number] ?? [id number] ? : 1985 ?Acct:[id number] ? Age/Sex: 39 / M ?ADM Date: 09/07/24 ? Loc: HO.ED ? Attending Dr: ? Ordering Physician: Zoraida Alvarado ?? Date of Service: 09/07/24 ?? Procedure(s): CT abdomen pelvis w IV con ?? Accession Number(s): [id number] ? cc: Zoraida Alvarado; Name,Ebenezer ROGERS ? EXAMINATION: ?? CT ABDOMEN AND PELVIS WITH CONTRAST ? CLINICAL INFORMATION: ?? Abdominal pain. ? COMPARISON: ?? None available. ? TECHNIQUE: ?? Multidetector volumetric images were obtained from the superior aspect ?? of the liver through the pubic symphysis following administration 85 mL ?? of Omnipaque 350 intravenous contrast. Sagittal and coronal reformatted ?? images were obtained on the technologist's workstation. ? Oral contrast: No ? This CT examination was performed using dose optimization techniques as ?? appropriate, variously including the following: ?? *Automated exposure control ?? *Adjustment of mA and/or kV according to patient size (this includes ?? techniques or standardized protocols for targeted exams where dose is ?? matched to indication/reason for exam; i.e. extremities or head) ?? *Use of iterative reconstruction technique ? DLP: ?? Final 98 mGy-cm ? FINDINGS: ? LUNG BASES: The lung bases appear clear, with no evidence of ?? inflammation or nodules. ? LIVER, GALLBLADDER, AND BILIARY TREE: The liver appears unremarkable in ?? size, shape, and attenuation. No focal hepatic lesion or biliary ductal ?? dilatation is appreciated. Unremarkable appearance of the gallbladder. ? PANCREAS: Unremarkable ? SPLEEN: Unremarkable ? ADRENAL GLANDS: Unremarkable ? KIDNEYS AND URETERS: The kidneys appear unremarkable in size, shape, ?? and attenuation. No hydronephrosis, hydroureter, or calculi seen. ? BLADDER: Tip and balloon of suprapubic Villatoro catheter lie within the ?? urinary bladder lumen. Decompressed urinary bladder, therefore ?? suboptimally evaluated. Suspect diffuse thickening of the wall the ?? urinary bladder with induration of surrounding fat, grossly similar ?? compared with most recent prior study from February 21, 2024. ? GASTROINTESTINAL TRACT: The small and large bowel appear unremarkable. ?? No diverticulosis. Normal-appearing distal ileum and vermiform ?? appendix. ? ABDOMINAL WALL: No significant hernia is appreciated. ? LYMPH NODES: No evidence of adenopathy by size criteria. ? VASCULAR: Unremarkable ? PELVIC VISCERA: Unremarkable. ? OSSEOUS STRUCTURES: Subchondral cystic and sclerotic changes involving ?? the femoral heads, worsening over the prior 8 years. ? CT/CT abdomen pelvis w IV con ?? IMPRESSION: ? Tip and balloon of suprapubic Villatoro catheter lie within the urinary ?? bladder lumen. Decompressed urinary bladder, therefore suboptimally ?? evaluated. Suspect diffuse thickening of the wall the urinary bladder ?? with induration of surrounding fat, grossly similar compared with most ?? recent prior study from February 21, 2024. Difference diagnosis includes, ?? but is not limited to, cystitis. ? 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 ? Electronically signed by: ??Kody Devries MD ??09/07/2024 02:13 PM EST RP ? Dictated By: ?Jaycob,Kody ? Signed By: ?<Electronically signed by Kody Devries in OV> ?09/07/24 1413 ? DD/ 0735 ? TD/TT: 09/07/24 1024 ? Explosive Ordnance Disposal Technician: ? Procedure Note Nathaly, Image - 09/07/[address] [address] [address] Scan Report Signed Patient: Justus Burr#: [id number] : 1985Acct:[id number] Age/Sex: 39 / MADM Date: 09/07/24 Loc: HO.ED Attending Dr: Ordering Physician: Zoraida Alvarado Date of Service: 09/07/24 Procedure(s): CT abdomen pelvis w IV con Accession Number(s): [id number] cc: Zoraida Alvarado; Name,Ebenezer ROGERS EXAMINATION: CT ABDOMEN AND PELVIS WITH CONTRAST CLINICAL INFORMATION: Abdominal pain. COMPARISON: None available. TECHNIQUE: Multidetector volumetric images were obtained from the superior aspect of the liver through the pubic symphysis following administration 85 mL of Omnipaque 350 intravenous contrast. Sagittal and coronal reformatted images were obtained on the technologist's workstation. Oral contrast: No This CT examination was performed using dose optimization techniques as appropriate, variously including the following: *Automated exposure control *Adjustment of mA and/or kV according to patient size (this includes techniques or standardized protocols for targeted exams where dose is matched to indication/reason for exam; i.e. extremities or head) *Use of iterative reconstruction technique DLP: Final 98 mGy-cm FINDINGS: LUNG BASES: The lung bases appear clear, with no evidence of inflammation or nodules. LIVER, GALLBLADDER, AND BILIARY TREE: The liver appears unremarkable in size, shape, and attenuation. No focal hepatic lesion or biliary ductal dilatation is appreciated. Unremarkable appearance of the gallbladder. PANCREAS: Unremarkable SPLEEN: Unremarkable ADRENAL GLANDS: Unremarkable KIDNEYS AND URETERS: The kidneys appear unremarkable in size, shape, and attenuation. No hydronephrosis, hydroureter, or calculi seen. BLADDER: Tip and balloon of suprapubic Villatoro catheter lie within the urinary bladder lumen. Decompressed urinary bladder, therefore suboptimally evaluated. Suspect diffuse thickening of the wall the urinary bladder with induration of surrounding fat, grossly similar compared with most recent prior study from February 21, 2024. GASTROINTESTINAL TRACT: The small and large bowel appear unremarkable. No diverticulosis. Normal-appearing distal ileum and vermiform appendix. ABDOMINAL WALL: No significant hernia is appreciated. LYMPH NODES: No evidence of adenopathy by size criteria. VASCULAR: Unremarkable PELVIC VISCERA: Unremarkable. OSSEOUS STRUCTURES: Subchondral cystic and sclerotic changes involving the femoral heads, worsening over the prior [address]/CT abdomen pelvis w IV con IMPRESSION: Tip and balloon of suprapubic Villatoro catheter lie within the urinary bladder lumen. Decompressed urinary bladder, therefore suboptimally evaluated. Suspect diffuse thickening of the wall the urinary bladder with induration of surrounding fat, grossly similar compared with most recent prior study from February 21, 2024. Difference diagnosis includes, but is not limited to, cystitis. 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 Electronically signed by: Kody Devries MD 09/07/2024 02:13 PM EST RP Dictated By: Kody Devries Signed By: <Electronically signed by Kody Devries in OV> 09/07/24 1413 DD/ 0735 TD/TT: 09/07/24 1024 Explosive Ordnance Disposal Technician: [facility] External Provider IMG CT PROCEDURES Final Result * BD DEXA Axial (09/01/2024 10:15 AM EST) Anatomical Region Laterality Modality Body Radiographic Miriam ging 09/01/2024 10:1 5 AM EST Narrative 09/01/2024 3:11 PM EST ? [facility] ? [address] ?[place] [address] ? Mammography Report ? Signed ? Patient: Kailna Pettyes,Justus ?MR#: [id number] ?? [id number] ? : 1985 ?Acct:[id number] ? Age/Sex: 39 / M ?ADM Date: 11/20/24 ? Loc: HO.MAMMO ? Attending Dr: Ebenezer Name MD ? Ordering Physician: Name,Ebenezer MD ?Results: ? Date of Service: 09/01/24 ?Follow Up: ? Procedure(s): XR DEXA axial skeleton ?? Accession Number(s): [id number] ? cc: Name,Ebenezer ROGERS ? EXAMINATION: ?? BONE DENSITOMETRY ? CLINICAL INDICATION: ?? Chronic prednisone use. ? COMPARISON: ?? This is the patient's baseline examination. ? TECHNIQUE: ?? Using a Domain Surgical DXA System (software version: 13.1) ?? manufactured by [employer], dual-energy x-ray absorptiometry was ?? performed of the lumbar spine and left hip. The images are of good ?? technical quality. Based on ISCD (International Society for Clinical ?? Densitometry) standards of reporting, Z-scores instead of T-scores are ?? reported in this premenopausal woman. Summary results are attached. ? FINDINGS: ?? AP SPINE L1-L4: ?? BMD 0.877 g/cm2, T-score -2.9, Z-score -3.4, Z-score below expected ?? range for age. ? LEFT FEMUR, NECK: ?? BMD 0.686 g/cm2, T-score -3.0, Z-score -3.0, Z-score below expected ?? range for age. ? LEFT FEMUR, TOTAL: ?? BMD 0.692 g/cm2, T-score -2.8, Z-score -3.0, Z-score below expected ?? range for age. ? IDENTIFIED RISK FACTORS: ?? Chronic glucocorticoids. ? HISTORY OF FRACTURE: ?? None listed. ? MEDICATIONS: ?? Calcium supplement and/or multivitamin. Vitamin D. ? MM/XR DEXA axial skeleton ?? IMPRESSION: ?? 1. DIAGNOSIS: Based on the lowest Z-score value of -3.4 in the lumbar ?? spine, the patient's bone density is below the expected range for age. ? 2. 10-YEAR FRACTURE RISK PREDICTION, FRAX: Not performed in this ?? perimenopausal patient. ?? 3. Treatment Recommendations: NOF guidelines recommend consideration ?? for treatment in postmenopausal women and men age 50 and older ?? presenting with the following: ?? -A hip or vertebral (clinical or morphometric) fracture. ?? -T-score less than or equal to -2.5 at the femoral neck or spine after ?? appropriate evaluation to exclude secondary causes. ?? -Low bone mass at the hip or spine and a 10-year fracture probability ?? by FRAX of greater than or equal to 3% for hip fracture or greater than ?? or equal to 20% for major osteoporotic fracture based on the [place] adapted ?? WHO algorithm. ?? 4. Other Recommendations: All treatment decisions require clinical ?? judgment and consideration of individual patient factors, including ?? patient preferences, comorbidities, previous drug use, risk factors not ?? captured in the FRAX model (e.g. frailty, falls, vitamin D deficiency, ?? increased bone turnover, interval significant decline in bone density) ?? and possible under or overestimation of fracture risk by FRAX. ?? Additional medical evaluation for secondary cause of low bone mineral ?? density may be appropriate. ? FUTURE SCAN RECOMMENDATION: ?? People with diagnosed cases of osteoporosis or at high risk for ?? fracture should have regular bone mineral density tests. For patients ?? eligible for Medicare, routine testing is allowed once every 2 years. ?? The testing frequency can be increased to one year for patients who ?? have rapidly progressing disease, those who are receiving or ?? discontinuing medical therapy to restore bone mass, or have additional ?? risk factors. ? Electronically signed by: ??Kirby Duran MD ??09/01/2024 03:09 PM EST ?? RP ? Dictated By: ?Kirby Duran MD ? Signed By: ?<Electronically signed by Kirby Duran MD in OV> ? 09/01/24 1509 ? DD/ 1015 ? TD/TT: 09/01/24 1040 ? Explosive Ordnance Disposal Technician: RR ? Procedure Note Nathaly, Image - [facility] [address] [place] [address] Mammography Report Signed Patient: Justus BurrMR#: [id number] : 1985Acct:[id number] Age/Sex: 39 / MADM Date: 09/01/24 Loc: HO.MAMMO Attending Dr: Ebenezer Leslie MD Ordering Physician: Ebenezer Leslieults: Date of Service: 09/01/24Follow Up: Procedure(s): XR DEXA axial skeleton Accession Number(s): [id number] cc: Ebenezer Leslie MD EXAMINATION: BONE DENSITOMETRY CLINICAL INDICATION: Chronic prednisone use. COMPARISON: This is the patient's baseline examination. TECHNIQUE: Using a Domain Surgical DXA System (software version: 13.1) manufactured by [employer], dual-energy x-ray absorptiometry was performed of the lumbar spine and left hip. The images are of good technical quality. Based on ISCD (International Society for Clinical Densitometry) standards of reporting, Z-scores instead of T-scores are reported in this premenopausal woman. Summary results are attached. FINDINGS: AP SPINE L1-L4: BMD 0.877 g/cm2, T-score -2.9, Z-score -3.4, Z-score below expected range for age. LEFT FEMUR, NECK: BMD 0.686 g/cm2, T-score -3.0, Z-score -3.0, Z-score below expected range for age. LEFT FEMUR, TOTAL: BMD 0.692 g/cm2, T-score -2.8, Z-score -3.0, Z-score below expected range for age. IDENTIFIED RISK FACTORS: Chronic glucocorticoids. HISTORY OF FRACTURE: None listed. MEDICATIONS: Calcium supplement and/or multivitamin. Vitamin D. MM/XR DEXA axial skeleton IMPRESSION: 1. DIAGNOSIS: Based on the lowest Z-score value of -3.4 in the lumbar spine, the patient's bone density is below the expected range for age. 2. 10-YEAR FRACTURE RISK PREDICTION, FRAX: Not performed in this perimenopausal patient. 3. Treatment Recommendations: NOF guidelines recommend consideration for treatment in postmenopausal women and men age 50 and older presenting with the following: -A hip or vertebral (clinical or morphometric) fracture. -T-score less than or equal to -2.5 at the femoral neck or spine after appropriate evaluation to exclude secondary causes. -Low bone mass at the hip or spine and a 10-year fracture probability by FRAX of greater than or equal to 3% for hip fracture or greater than or equal to 20% for major osteoporotic fracture based on the [place] adapted WHO algorithm. 4. Other Recommendations: All treatment decisions require clinical judgment and consideration of individual patient factors, including patient preferences, comorbidities, previous drug use, risk factors not captured in the FRAX model (e.g. frailty, falls, vitamin D deficiency, increased bone turnover, interval significant decline in bone density) and possible under or overestimation of fracture risk by FRAX. Additional medical evaluation for secondary cause of low bone mineral density may be appropriate. FUTURE SCAN RECOMMENDATION: People with diagnosed cases of osteoporosis or at high risk for fracture should have regular bone mineral density tests. For patients eligible for Medicare, routine testing is allowed once every 2 years. The testing frequency can be increased to one year for patients who have rapidly progressing disease, those who are receiving or discontinuing medical therapy to restore bone mass, or have additional risk factors. Electronically signed by: Kirby Duran MD 09/01/2024 03:09 PM EST Dictated By: Kirby Duran MD Signed By: <Electronically signed by Kirby Duran MD inOV> 09/01/24 1509 DD/ 1015 TD/TT: 09/01/24 1040 Explosive Ordnance Disposal Technician: RR us Ebenezersun ORELLANA DXA PROCEDURES Final Result * Slide Review (08/17/2024 12:22 PM EST) Slide Review VERIFIED [facility] 08/17/2024 12:2 2 PM EST 08/17/2024 12:27 PM EST us Generic External Data Provider LAB BLOOD ORDERAB LES Final Result [facility] [address] [place] [phone] * Strep A Nucleic Acid (08/17/2024 12:22 PM EST) IDNOW SERIAL# [id number] [facility] Strep A Nucleic Acid Negative Negative [facility] Comment:All test results mus t be correlated with clinical findings.This test has not been evaluated for monitoring treatment ofinfection.Additional follow-up testing using the culture method isrequired if the result is negative and clinical symptomspersist, or in the event of an acute rheumatic feveroutbreak. 08/17/2024 12:2 2 PM EST 08/17/2024 12:27 PM EST us Generic External Data Provider LAB MICROBIOLOGY - GENERAL ORDERABLES Final Result [facility] [address] [place] [phone] * (ABNORMAL) CBC auto differential (08/17/2024 12:22 PM EST) Pathologist [facility] White Blood Count 6.8 4.8 - 10.8 X10*3/uL [facility] Red Blood Count 4.93 4.60 - 5.80 X10*6/uL [facility] Hemoglobin 12.8(L) 14.0 - 18.0 g/dl [facility] Hematocrit 39.4(L) 42.0 - 52.0 % [facility] Mean Corpuscular Volume 79.9(L) 80.0 - 98.0 fL [facility] Mean Corpuscular Hemoglobin 26.0(L) 27.0 - 33.0 pg [facility] Mean Corpuscular HGB Conc 32.5 31.0 - 36.0 g/dl [facility] Red Cell Distribution Width 14.8 11.0 - 16.0 % [facility] Platelet Count 176 160 - 400 X10*3/uL [facility] Mean Platelet Volume 12.5(H) 9.4 - 12.4 fL [facility] Neutrophils Percent Auto 68.2 45 - 73 % [facility] Imm Gran Pct Auto 0.4 0.0 - 0.4 % [facility] Lymphocytes Percent Auto 17.2(L) 20 - 40 % [facility] Monocytes Percent Auto 12.5(H) 2 - 11 % [facility] Eosinophils Percent Auto 1.3 0 - 4 % [facility] Basophils Percent Auto 0.4 0 - 2 % [facility] NRBC Pct Auto 0.0 0.0 - 0.2 /100WBC [facility] Neutrophils Absolute Auto 4.6 2.0 - 8.3 x10*3/uL [facility] Imm Gran Abs Auto 0.03 0.00 - 0.03 X10*3/uL [facility] Lymphocytes Absolute Auto 1.2 1.2 - 4.9 X10*3/uL [facility] Monocytes Absolute Auto 0.9 0.1 - 1.2 X10*3/uL [facility] Eosinophils Absolute Auto 0.1 0.0 - 0.4 X10*3/uL [facility] Basophils Absolute Auto 0.0 0.0 - 0.2 X10*3/uL [facility] NRBC Abs Auto 0.000 0.0 - 0.012 X10*3/uL [facility] 08/17/2024 12:2 2 PM EST 08/17/2024 12:27 PM EST us Generic External Data Provider LAB BLOOD ORDERAB LES Edited Result - Final Performing Organization Address [facility]/ZIP Co de Phone Number [facility] [address] [place] [phone] * Magnesium (08/17/2024 12:22 PM EST) Magnesium 2.0 1.6 - 2.6 mg/dL [facility] 08/17/2024 12:2 2 PM EST 08/17/2024 12:27 PM EST us Generic External Data Provider LAB BLOOD ORDERAB LES Final Result Performing Organization Address [facility]/ZIP Co de Phone Number [facility] [address] [place] [phone] * (ABNORMAL) Comprehensive Metabolic Panel (08/17/2024 12:22 PM EST) Sodium 141 135 - 145 mmol/L [facility] Potassium 3.7 3.3 - 5.1 mmol/L [facility] Chloride 103 96 - 108 mmol/L [facility] Carbon Dioxide 26 22 - 29 mmol/L [facility] Anion Gap 16 12 - 20 [facility] Urea Nitrogen (BUN) 6(L) 9 - 16 mg/dL [facility] Creatinine, Serum 0.67 0.5 - 1.4 mg/dL [facility] Creatinine Clr Calc Pharmacy 172.3 [facility] Comment:eGFR (calculated fro m the MDRD study equation) and eCrCl(calculated from the Cockcroft-Gault equation) are based ondifferent parameters and may not yield comparable results.If eCrCl result is absurd, please check patient'sheight/weight. Estimated Glomerular Filt Rate >60 [facility] Comment:NOTE: For -Am erican individuals, multiply the result by 1.210.Chronic Kidney Disease: Estimated GFR < 60 mL/min/[id number] Kidney Disease: Estimated GFR < 15 mL/min/1.73m2 Glucose 85 60 - 115 mg/dL [facility] Calcium 9.7 8.4 - 10.2 mg/dL [facility] Bilirubin, Total 0.3 0.0 - 1.0 mg/dL [facility] Aspartate Amino Transferase 23 5 - 37 U/L [facility] Alanine Aminotransferase 14 0 - 40 U/L [facility] Total Protein 8.0 6.5 - 8.0 g/dL [facility] Albumin Level 3.9 3.5 - 5.0 g/dL [facility] Alkaline Phosphatase 63 39 - 117 U/L [facility] 08/17/2024 12:2 2 PM EST 08/17/2024 12:27 PM EST us Generic External Data Provider LAB BLOOD ORDERAB LES Final Result [facility] [address] [place] [phone] from Last 3 Months Insurance [facility] C[facility]ENT[facility] - [facility] Care Teams Filtrose Crusher Relationship Specialty Start Date End Date Name, MD Ebenezer [address] [place] [address] PCP - General Family Medicine 06/07/22 [employer] 01/06/23
--- OUTSIDE RECORDS SUMMARY | 2024-11-11 18:11 | XMS_ITS | Encounter Summary ---
Author Organization [employer] Address [address] [place] [address] Care Team Providers Care Body And Frame Technician Name Role Phone Name, Ebenezer ROGERS Primary Care Provider [phone] Reason for Visit * Reason Onset Date Comments Request For Order(s) 10/08/2024 Encounter Details Date Type Department Care Team ([facility] st Contact Info) Description 10/08/2024 Telephone [facility] [address] [place] [address] Name, MD Ebenezer [address] [place] [address] Request For Order(s) Social History Tobacco Use Types Packs/Day Years [...] Telephone Encounter - Anastacia Meyer - 10/12/2024 11:22 AM EST Photogeologist call to [facility] who provied status on DME hosp bed and erica lift as follows: Hospital bed w/mattress voided per libanq from Gabrielle @ [facility] as Rx was being worked on by another supplier. Erica Lift: per Ruma, Fax sent to [facility] requesting documentation regarding PT eval; still pending. Photogeologist called [facility]Gabrielle and Rosalina for info re supplier for Hosp bed & mattress. [facility] for [facility] to call back. * Telephone Encounter - Beverley Echols RN - 10/08/2024 10:34 AM EST Call returned to S. Advised Eunice of approved verbal order for PT. [facility]ice requesting a mattress for pt renata addition to DME requested earlier today. Reports that pt's hospital bed is stuck in the down position. States mattress is poor and pt slides to the bottom of the bed. States pt's current MARBLE INSTALLER SUPERVISOR is not able to move him as pt's previous MARBLE INSTALLER SUPERVISOR hurt his back. Advised request for mattress will be added to DME requests. * Telephone Encounter - Breonna Lis Daniel - 10/08/2024 9:49 AM EST Tc from [facility] with [facility] requesting a verbal order for Physical Therapy, 1 to 2 times a week. [phone] Eunice documented in this encounter Plan of Treatment Upcoming Encounters Date Type Department Care Team (Late st Contact Info) Description 11/17/2024 10:30 AM EST Office Visit [facility] [address] [place] [address] Name, MD Ebenezer [address] [place] [address] documented as of this encounter Visit Diagnoses Not on filedocumented in this encounter Additional Health Concerns Assessment Noted Time PHQ-9 Depression Total Score: 13 024 10:48 AM EDT documented as of this encounter Care Teams Body And Frame Technician Relationship Specialty Start Date End Date Name, MD Ebenezer [address] [place] [address] PCP - General Family Medicine 06/07/22 [employer] 01/06/23 documented as of this encounter
--- OUTSIDE RECORDS SUMMARY | 2024-11-11 18:11 | XMS_ITS | Encounter Summary ---
Author Organization [facility] Address [address] [place] [address] Care Team Providers Care Shackler Name Role Phone Name, Ebenezer ROGERS Primary Care Provider [phone] Reason for Visit * Episode Based Medications (Routine) - Authorized Specialty Diagnoses / Procedures Referred By Marina t Referred To Contact Diagnoses Demyelinating neuropathy Jeanne Hewitt MD [address] [place] [address] [facility] [address] [place] [phone] Referral ID Status Reason Start Date Expiration Date V isits Requested Visits Authorized [id number] Authorized 09/03/2024 09/03/2025 1 12 Encounter Details Date Type Department Care Team (Latest Contact Info) Description 10/20/2024 10:09 AM EST - 10/20/2024 11:59 PM [facility] [address] [place] [phone] Jeanne Hewitt MD [address] [place] [address] Demyelinating neuropathy Discharge Disposition: Home or Self Care Social History Tobacco Use Types Packs/Day Years Used Date Smoking Tobacco: Former Cigarettes Q uit: 10/13/2021 Smokeless Tobacco: Never Alcohol Use Standard Drinks/Week Comments Not Currently 0 (1 standard drink = 0.6 oz pur e alcohol) Sex and Gender Information Value Date Recorded Sex Assigned at Not on file Gender Identity Not on file Sexual Orientation Not on file Job Start Date Occupation Industry Not on file Not on file Not on file documented as of this encounter Last Filed Vital Signs Vital Sign Reading Time Taken Comments Blood Pressure 128/90 10/20/2024 10:22 AM EST Pulse 135 10/20/2024 10:22 AM EST Temperature 36.4 ??C (97.6 ??F) 10/20/2024 10:[address] Respiratory Rate 16 10/20/2024 10:22 AM EST Oxygen Saturation 95% 10/20/2024 10:22 AM EST Inhaled Oxygen Concentration - - Weight - - Height - - Body Mass Index - - documented in this encounter Medications at Time of Discharge Medication Sig Dispensed Refills Start Date End Date acetaminophen (TYLENOL) 500 mg tablet Take 1 tablet (500 mg total) by mouth every 6 (six) hours if needed. for mild pain 08/13/2024 ascorbic acid (VITAMIN C) 500 mg tablet Take 1 tablet (500 mg total) by mouth 2 (two) times a day. 05/20/2024 baclofen (LIORESAL) 20 mg tablet Take 1 tablet (20 mg total) by mouth. at bedtime 10/14/2023 cefuroxime (CEFTIN) 250 mg tablet 08/16/2024 cetirizine (ZyrTEC) 10 mg tablet 08/17/2024 cyclobenzaprine (FLEXERIL) 10 mg tablet Take 1 tablet (10 mg total) by mouth. 08/04/2024 doxycycline hyclate (VIBRA-TABS) 100 mg tablet TAKE 1 TABLET BY MOUTH TWICE DAILY FOR FOURTEEN DAYS TAKE WITH A FULL GLASS OF WATER AND Do not lie down for 30 minutes after taking 08/04/2024 gabapentin (NEURONTIN) 300 mg capsule TAKE 1 CAPSULE BY MOUTH DAILY AT BEDTIME FOR 1 WEEK THEN 2 CAPSULES AT BEDTIME MAY TAKE 1 ADDITIONAL CAPSULE IN THE MORNING as tolerated 02/04/2024 levoFLOXacin (LEVAQUIN) 750 mg tablet Take 1 tablet (750 mg total) by mouth. 06/01/2024 LORazepam (ATIVAN) 0.5 mg tablet 1 p.o. 1 hour prior to MRI, may repeat 1 tab at time of MRI if needed 02/10/2024 methenamine hippurate (HIPREX) 1 gram tablet Take 1 tablet (1 g total) by mouth 1 (one) time each day. 05/24/2024 predniSONE (DELTASONE) 20 mg tablet Take 1 tablet (20 mg total) by mouth 1 (one) time each day. 30 each 1 09/08/2024 sertraline (ZOLOFT) 50 mg tablet Take 1 tablet (50 mg total) by mouth 1 (one) time each day in the morning. tiZANidine (ZANAFLEX) 2 mg tablet Take 1 tablet (2 mg total) by mouth 3 (three) times a day. Take 1 tablet (2 mg total) by mouth 3 (three) times a day. 90 tablet 5 09/08/2024 traMADoL (ULTRAM) 50 mg tablet Take 1 tablet (50 mg total) by mouth every 8 (eight) hours if needed for severe pain. Max Daily Amount: 150 mg 05/24/2024 Vitamin D3 50 mcg (2,000 unit) capsule Take 1 capsule (2,000 Units total) by mouth 1 (one) time each day in the morning. documented as of this encounter Discharge Disposition Disposition Code Departure Means Destination Home or Self Care documented in this encounter Progress Notes * Blanca Marks RN - 10/20/2024 10:30 AM EST 1020 Patient arrives via wheelchair with child care education coordinator. stock taker assisted patient to recliner chair. Pt has elevated heart rate with vitals. He reports they told me it was high Friday and told me to drinkmore fluids . Pt denies any chest pain or palpitations, no shortness of breath or cough noted. Denies nausea or vomiting and states he has been eating and drinking normally. He states he feels his gait is very wobbly . 1030 Recheck of heart rate continues to be 134-137 and he continues to deny any chest pain, palpitations, or shortness of breath. Message sent to provider for return call regarding vitals and treatment plan. Pt has coffee chairside and is comfortable with child care education coordinator present. 1105 Call received from Verónica SAHU. We will hold treatment today due to elevated heart rate and ptshould see his pcp or go to urgent care for management of heart rate. 1115 Video adjunct english instructor used to communicate with patient and child care education coordinator in malagasy. Chair Mechanic James #[id number] was able to explain that pt will not have treatment today due to elevated heart rate and he has to call to arrange an appointment with his pcp or go to urgent care to have the heart rate further evaluated. Pt instructed he would have to call to reschedule his treatment once his heart rate issue is resolved. Patient and child care education coordinator verbalized understanding of this via the adjunct english instructor. 1135 Pt assisted to wheelchair by child care education coordinator and wheeled off unit to get the bus. He reports he will call his primary to be seen. documented in this encounter Plan of Treatment Upcoming Encounters Date Type Department Care Team (Late st Contact Info) Description 11/25/2024 11:30 AM EST Office Visit [facility] [place] [facility] [place] [address] [facility] [address] [place] [address] Olena Arnett MD [address] [facility] [address] [place] [phone] 01/11/2025 8:00 AM EDT Appointment [facility] [place] [address] [facility] [address] [place] [phone] documented as of this encounter Goals Goal Patient Goal Type Associated Problems Recent Progress Patient-Stated? Author LTGs General No Kingsley Alegria, PT Note: Pt will transfer sit to stand from w/c level with mod assist Pt will transfer stand-pivot toward left with w/walker and mod assist Pt will transfer stand-pivot toward right with w/walker and mod assist Pt will be independent with HEP documented as of this encounter Visit Diagnoses Diagnosis Demyelinating neuropathy Mononeuritis of unspecified site documented in this encounter Orders Appointment Requests Count Last Ordered Date Fi rst Ordered Date ONCBCN INFUSION APPOINTMENT REQUEST 08 documented in this encounter Care Teams Shackler Relationship Specialty Start Date End Date Name, MD Ebenezer [address] [place] [address] PCP - General 11/27/22 documented as of this encounter
--- OUTSIDE RECORDS SUMMARY | 2024-11-11 18:11 | XMS_ITS | Encounter Summary ---
Author Organization [employer] Address [address] [place] [address] Care Team Providers Care Testing And Regulating Technician Name Role Phone Name, Ebenezer ROGERS Primary Care Provider [phone] Encounter Details Date Type Department Care Team (Late st Contact Info) Description 10/15/2024 Telephone [facility] MED[facility]INE [address] [place], [place] [phone] Name, MD Ebenezer [address] [place] [address] Social History Tobacco Use Types Packs/Day Years [...] enough money to get more: Never True 10/ Transportation Answer Date Recorded In the past [...] encounter Miscellaneous Notes * Telephone Encounter - Tomás Ardon - 10/15/2024 10:25 AM EST Pharmacy [facility] attempted outreach call on 10/15/24 for Medication Therapy Management (MTM) appointment; however, unable to reach patient. LVM for patient to contact Tomás Ardon at [phone]. documented in this encounter Plan of Treatment Upcoming Encounters Date Type Department Care Team (Late st Contact Info) Description 11/17/2024 10:30 AM EST Office Visit [facility] MED[facility]INE [address] [place] [phone] Name, MD Ebenezer [address] [place] [address] documented as of this encounter Visit Diagnoses Not on filedocumented in this encounter Additional Health Concerns Assessment Noted Time PHQ-9 Depression Total Score: 13 024 10:48 AM EDT documented as of this encounter Care Teams Testing And Regulating Technician Relationship Specialty Start Date End Date Name, MD Ebenezer [address] [place] [id number] PCP - General Family Medicine 06/07/22 [employer] 01/06/23 documented as of this encounter
--- OUTSIDE RECORDS SUMMARY | 2024-11-11 18:11 | XMS_ITS | Encounter Summary ---
Author Organization [employer] Address [address] [facility] [address] [place] [address] Care Team Providers Care Inspector Toys Name Role Phone Name, Ebenezer ROGERS Primary Care Provider [phone] Reason for Visit * Reason Onset Date Comments FYI 10/18/2024 Encounter Details Date Type Department Care Team ([facility] st Contact Info) Description 10/18/2024 Telephone [facility] MEDICINE [address] [place] [address] Name, MD Ebenezer [address] [place] [address] FY Social History Tobacco Use Types Packs/Day Years [...] Telephone Encounter - Beverley Echols RN - 10/18/2024 3:33 PM EST Elevated HR noted. VNA evaluation appropriate. Pt is also scheduled for follow up with pcp. * Telephone Encounter - Sergio Orosco - 10/18/2024 11:59 AM EST Tc from [facility] physical therapist stating pt had elevated heart rate 115/125 no symptomatic nurse will visit pt for assessment pt denied triage call. documented in this encounter Plan of Treatment Upcoming Encounters Date Type Department Care Team (Late st Contact Info) Description 11/17/2024 10:30 AM EST Office Visit [facility] MEDICINE [address] [place] [address] Name, MD Ebenezer [address] [place] [address] documented as of this encounter Visit Diagnoses Not on filedocumented in this encounter Additional Health Concerns Assessment Noted Time PHQ-9 Depression Total Score: 13 024 10:48 AM EDT documented as of this encounter Care Teams Inspector Toys Relationship Specialty Start Date End Date Name, MD Ebenezer [address] [place] [address] PCP - General Family Medicine 06/07/22 [employer] 01/06/23 documented as of this encounter
--- OUTSIDE RECORDS SUMMARY | 2024-11-11 18:11 | XMS_ITS | Encounter Summary ---
Author Organization [employer] Address [address] [facility] 7[address] [place] [address] Care Team Providers Care Machine Trimmer Name Role Phone Name, Ebenezer ROGERS Primary Care Provider [phone] Encounter Details Date Type Department Care Team (Latest Contact Info) Description 12/12/2020 Abstract [facility] Dental, Provider, DDS Social History Tobacco Use Types Packs/Day Years Used Date Smoking Tobacco: Never Assessed Sex and Gender Information Value Date Recorded Sex Assigned at Male 08/12/2022 10:27 AM EDT Legal Sex Male 10:27 AM EDT Gender Identity Male 08/12/2022 10:27 AM EDT Sexual Orientation Straight 08/12/2022 10 :27 AM EDT documented as of this encounter Plan of Treatment Upcoming Encounters Date Type Department Care Team (Late st Contact Info) Description 11/17/2024 10:30 AM EST Office Visit [facility] MEDICINE [address] [place] [address] NameEbenezer MD [address] [place] [address] documented as of this encounter Visit Diagnoses Not on filedocumented in this encounter Care Teams Machine Trimmer Relationship Specialty Start Date End Date NameEbenezer MD [address] [place] [phone] PCP - General Family Medicine 06/07/22 [employer] 01/06/23 documented as of this encounter
--- OUTSIDE RECORDS SUMMARY | 2024-11-11 18:11 | XMS_ITS | Encounter Summary ---
Author Organization [employer] Address [address] [facility] 7[address] [place] [address] Care Team Providers Care School Counsellor Name Role Phone Name, Ebenezer ROGERS Primary Care Provider [phone] Reason for Visit * Reason Onset Date Comments verbal order request 11/03/2024 Encounter Details Date Type Department Care Team ([facility] st Contact Info) Description 11/03/2024 Telephone [facility] MEDICINE [address] [place] [address] Name, MD Ebenezer [address] [place] [address] verbal order request Social History Tobacco Use Types Packs/Day Years [...] encounter Miscellaneous Notes * Telephone Encounter - Shahida Whelan RN - 11/03/2024 2:20 PM EST Tc to Tami @ [facility] provided verbal order for pt to have physical Therapy Service 2x a week for8 weeks. Tami verbalized understanding and no further questions or concerns at this time. * Telephone Encounter - Sergio Orosco - 11/03/2024 1:45 PM EST Tc from Tami with [employer] requesting a verbal order for physical therapy 2x a week for 8 weeks. Any questions please contact Tami [phone] documented in this encounter Plan of Treatment Upcoming Encounters Date Type Department Care Team (Late st Contact Info) Description 11/17/2024 10:30 AM EST Office Visit [facility] MEDICINE [address] [place] [address] Name, MD Ebenezer [address] [place] [address] documented as of this encounter Visit Diagnoses Not on filedocumented in this encounter Additional Health Concerns Assessment Noted Time PHQ-9 Depression Total Score: 13 024 10:48 AM EDT documented as of this encounter Care Teams School Counsellor Relationship Specialty Start Date End Date Name, MD Ebenezer [address] [place] [address] PCP - General Family Medicine 06/07/22 [employer] 01/06/23 documented as of this encounter
--- OUTSIDE RECORDS SUMMARY | 2024-11-11 18:11 | XMS_ITS | Encounter Summary ---
Author Organization [employer] Address [address] [facility] [address] [place] [address] Care Team Providers Care Thermal Technician Name Role Phone Name, Ebenezer ROGERS Primary Care Provider [phone] Reason for Visit * Reason Onset Date Comments ED Follow up 10/07/2024 Encounter Details Date Type Department Care Team ([facility] st Contact Info) Description 10/07/2024 Telephone [facility] MEDICINE [address] [place] [address] Name, MD Ebenezer [address] [place] [address] ED Follow up Social History Tobacco Use Types Packs/Day Years [...] encounter Miscellaneous Notes * Telephone Encounter - Yara Ohara RN - 10/15/2024 3:30 PM [place] [id number] to inform him of lab results as well as requested follow up. Pt agrees tocontinue medication, come in labs, and scheduled for follow up on 11/17/24 at 10:30 am, pt agrees to plan. * Telephone Encounter - Ebenezer Leslie MD - 10/14/2024 9:10 AM EST Please call the patient. His bone density is consistent with osteoporosis. I want him to come to the lab to check his vitamin D levels. Encourage to continue on his Vit D supplements daily. We will discuss starting Fosamax at his next visit with me. Please make sure he has an appointment in the next couple of months. * Telephone Encounter - Beverley Echols RN - 10/08/2024 4:54 PM EST Reviewed, pt discharged home with VNA * Telephone Encounter - Breonna Daniel - 10/07/2024 2:09 PM EST Maria Luisa with [facility] calling to report ED visit on : Date: 10/03/2024 Hospital: [facility] Seen for: Urinary tract infection Symptomatic No *if yes message should go to Triage Patient advised will forward to team nurse for follow up documented in this encounter Plan of Treatment Upcoming Encounters Date Type Department Care Team (Late st Contact Info) Description 11/17/2024 10:30 AM EST Office Visit [facility] MEDICINE [address] [place] [phone] Name, MD Ebenezer [address] [place] [phone] Scheduled Orders Name Type Priority Associated Diagnoses Orde r Schedule Vitamin D, 25-Hydroxy, Total, Immunoassay Lab Routine Other osteoporosis without current pathological fracture Expected: 10/14/2024 (Approximate), Expires: 10/14/2025 documented as of this encounter Visit Diagnoses Diagnosis Other osteoporosis without current pathological fracture- Primary documented in this encounter Additional Health Concerns Assessment Noted Time PHQ-9 Depression Total Score: 13 024 10:48 AM EDT documented as of this encounter Care Teams Thermal Technician Relationship Specialty Start Date End Date Name, MD Ebenezer [address] [place] [phone] PCP - General Family Medicine 06/07/22 [employer] 01/06/23 documented as of this encounter
--- OUTSIDE RECORDS SUMMARY | 2024-11-11 18:12 | XMS_ITS | Encounter Summary ---
Author Organization [employer] Address [address] [facility] 7[address] [place] [address] Care Team Providers Care Stock Handler Name Role Phone Name, Ebenezer ROGERS Primary Care Provider [phone] Encounter Details Date Type Department Care Team ([facility] st Contact Info) Description 10/21/2024 Orders Only GENERIC EXTERNAL DATA DEPARTMENT Provider, Generic External Data Social History Tobacco Use Types Packs/Day Years Used Date Smoking Tobacco: Former Cigarettes Alcohol Use Standard Drinks/Week Comments Not Currently 0 (1 standard drink = 0.6 oz pur e alcohol) Alcohol Answer Date Recorded Frequency of Alcohol Consumption Not on file 05/17/2024 Average Number of Drinks Not on file 024 Frequency of Binge Drinking Not on file 0802/2024 Score 0 05/17/2024 Depression Answer Date Recorded [...] as of this encounter Miscellaneous Notes * Result Encounter Note - Iris López MD - 10/21/2024 1:29 AM EST Patient at the ED with UTI, he will be fu for health status check. See other encounter. documented in this encounter Plan of Treatment Upcoming Encounters Date Type Department Care Team (Late st Contact Info) Description 11/17/2024 10:30 AM EST Office Visit [facility] [address] [place] [phone] Name, MD Ebenezer [address] [place] [address] documented as of this encounter Procedures Procedure Name Priority Date/Time Associated Diagnosis Comments XR CHEST 1 VIEW Routine 10/21/2024 4:00 PM EST URINALYSIS, COMPLETE, WITH REFLEX TO CULTURE Routine 10/21/2024 1:41 AM EST B TYPE NATRIURETIC PEPTIDE (BNP) Routine 10/21/2024 1:24 AM EST SARS COV2/INFLUENZA A/B AND RSV RNA QL NAAT Routine 10/21/2024 1:13 AM EST LACTIC ACID Routine 10/21/2024 1:10 AM EST documented in this encounter Results * XR Chest 1 View (10/21/2024 4:00 PM EST) Anatomical Region Laterality Modality Chest Radiographic Miriam ging 10/21/2024 4:00 PM EST Narrative 10/21/2024 4:13 PM EST ? [facility] ?[address] ?[place] [address] ?XRay Report ? Signed ? Patient: Kalina Barba,Justus ?MR#: [id number] ?? [id number] ? : 1985 ?Acct:[id number] ? Age/Sex: 39 / M ?ADM Date: 10/21/24 ? Loc: [facility] [facility]-2 ? Attending Dr: Giulia Alatorre MD ? Ordering Physician: Giulia Alatorre MD ?? Date of Service: 10/21/24 ?? Procedure(s): XR chest 1V ?? Accession Number(s): [id number] ? cc: Ebenezer Leslie MD; Giulia Alatorre MD ? EXAMINATION: ?? XR CHEST [...] Mcgrath MD ??10/21/2024 04:10 PM EST RP ? Dictated By: ?Dusty Mcgrath MD ? Signed By: ?<Electronically signed by Dusty Mcgrath MD in OV> ?10/21/24 1610 ? DD/ 1600 ? TD/TT: 10/21/24 1603 ? Motor Installer: ? Procedure Note Nathaly Image - 10/21/[address] [address] XRay Report Signed Patient: Justus BurrMR#: [id number] : 1985Acct:[id number] Age/Sex: 39 / MADM Date: 10/21/24 Loc: [facility]: Giulia Alatorre MD Ordering Physician: Giulia Alatorre MD Date of Service: 10/21/24 Procedure(s): XR chest 1V Accession Number(s): [id number] cc: Name,Ebenezer ROGERS; Giulia Alatorre MD EXAMINATION: XR CHEST CLINICAL INFORMATION: ? cough/choking episode COMPARISON: 10/21/2024 at 12:09 AM. 10/11/2024. TECHNIQUE: Frontal view of the chest was obtained. FINDINGS: No significant abnormality is noted involving the heart, lungs, mediastinum, bony thorax or soft tissues. XR/XR chest 1V IMPRESSION: No active pulmonary disease. Electronically signed by: Dusty Mcgrath MD 10/21/2024 04:10 PM EST RP Dictated By: Dusty Mcgrath MD Signed By: <Electronically signed by Dusty Mcgrath MD in OV> 10/21/24 1610 DD/ 1600 TD/TT: 10/21/24 1603 Motor Installer: [facility] External Provider IMG XR PROCEDURES Final Result * (ABNORMAL) Urinalysis, Complete, with Reflex to Culture (10/21/2024 1:41 AM EST) Color Urine Dark Yellow [facility] Appearance Urine Turbid [facility] PH 6.0 5.0 - 9.0 [facility] Glucose Urine UA Negative Negative mg/dL [facility] Urine Blood Large (3+)(A) Negative [facility] Specific Cook - Urine >=1.030(H) 1.005 - 1.025 [facility] Urine Protein 300 (3+)(A) Neg-Trace mg/dL [facility] Urine Ketones 15 Negative mg/dL [facility] Nitrite Urine Negative Negative [facility] Leukocyte Esterase Urine Large (3+)(A) Negative [facility] RBC Urine >20(A) 0 - 2 /HPF [facility] Urine WBC >50(A) 0 - 5 /HPF [facility] Urine Squamous Epithelial Cell 3-5 0 - 2 /HPF [facility] CALCIUM OXALATE CRYSTAL, UR Present [facility] Urine Bacteria Trace None Seen [facility] Hyaline Casts, Urine >20 0 - 2 /LPF [facility] Urine Yeast Present [facility] 10/21/2024 1:41 AM EST 10/21/2024 1:46 AM EST Narrative [facility] - 10/21/2024 2:00 AM EST [id number], Suprapubic us Generic External Data Provider LAB URINE ORDERAB LES Final Result Performing Organization Address [facility] Co de Phone Number [facility] [address] [place] [phone] * B Type Natriuretic Peptide (BNP) (10/21/2024 1:24 AM EST) Pathologist [facility] B Type Natriuretic Peptide <10 <100 pg/mL [facility] Comment:For those patients w ho are being treated with Natrecor(nesiritide, recombinant BNP), BNP testing should beperformed at least two hours post treatment in order toensure that only endogenous levels of BNP are detected. 10/21/2024 1:24 AM EST 10/21/2024 1:47 AM EST us Generic External Data Provider LAB BLOOD ORDERAB LES Final Result Performing Organization Address [facility] Co de Phone Number [facility] [address] [place] [phone] * SARS-CoV-2 RNA, Influenza A/B, and RSV RNA, Ql NAAT (10/21/2024 1:13 AM EST) Influenza A PCR NEGATIVE Negative [facility] Influenza B PCR NEGATIVE Negative [facility] Resp Syncy Virus RNA Qual PCR NEGATIVE Negative [facility] SARS COV2 PCR NEGATIVE Negative [facility] Comment:All test results mus t [...] use by authorized laboratories.Testing performed on the [employer] GeneXpert utilizingreal-time RT-PCR.All SARS CoV2 and positive influenza A/B results arereported to [facility]. 10/21/2024 1:13 AM EST 10/21/2024 1:17 AM EST Generic External Data Provider LAB MICROBIOLOGY - GENERAL ORDERABLES Final Result Performing Organization Address [facility]/ZIP Co de Phone Number [facility] [address] [place] [phone] * Lactic Acid (10/21/2024 1:10 AM EST) Lactic Acid 1.4 0.5 - 2.0 mmol/L [facility] 10/21/2024 1:10 AM EST 10/21/2024 1:14 AM EST Generic External Data Provider LAB BLOOD ORDERAB LES Final Result Performing Organization Address [facility]/ZIP Co de Phone Number [facility] [address] [place] [phone] documented in this encounter Visit Diagnoses Not on filedocumented in this encounter Additional Health Concerns Assessment Noted Time PHQ-9 Depression Total Score: 13 08/04/2 024 10:48 AM EDT documented as of this encounter Care Teams Stock Handler Relationship Specialty Start Date End Date Name, MD Ebenezer [address] [place] [phone] PCP - General Family Medicine 06/07/22 Not iT 01/06/23 documented as of this encounter
--- OUTSIDE RECORDS SUMMARY | 2024-11-11 18:13 | XMS_ITS | Clinical Summary ---
Author Organization [facility] Address [address] [place] [address] Phone Care Team Providers Care Dot Compliance Specialist Name Role Phone Name, Ebenezer ROGERS Primary Care Provider [phone] Allergies No known active allergies Medications Medication Sig Dispensed Refills Start Date End Date Status acetaminophen (TYLENOL) 500 mg tablet Take 1 tablet (500 mg total) by mouth every 6 (six) hours if needed. for mild pain 08/13/2024 Active ascorbic acid (VITAMIN C) 500 mg tablet Take 1 tablet (500 mg total) by mouth 2 (two) times a day. 05/20/2024 Active baclofen (LIORESAL) 20 mg tablet Take 1 tablet (20 mg total) by mouth. at bedtime 10/14/2023 Active cefuroxime (CEFTIN) 250 mg tablet 08/16/2024 Active cetirizine (ZyrTEC) 10 mg tablet 08/17/2024 Active Vitamin D3 50 mcg (2,000 unit) capsule Take 1 capsule (2,000 Units total) by mouth 1 (one) time each day in the morning. Active cyclobenzaprine (FLEXERIL) 10 mg tablet Take 1 tablet (10 mg total) by mouth. 08/04/2024 Active doxycycline hyclate (VIBRA-TABS) 100 mg tablet TAKE 1 TABLET BY MOUTH TWICE DAILY FOR FOURTEEN DAYS TAKE WITH A FULL GLASS OF WATER AND Do not lie down for 30 minutes after taking 08/04/2024 Active gabapentin (NEURONTIN) 300 mg capsule TAKE 1 CAPSULE BY MOUTH DAILY AT BEDTIME FOR 1 WEEK THEN 2 CAPSULES AT BEDTIME MAY TAKE 1 ADDITIONAL CAPSULE IN THE MORNING as tolerated 02/04/2024 Active levoFLOXacin (LEVAQUIN) 750 mg tablet Take 1 tablet (750 mg total) by mouth. 06/01/2024 Active LORazepam (ATIVAN) 0.5 mg tablet 1 p.o. 1 hour prior to MRI, may repeat 1 tab at time of MRI if needed 02/10/2024 Active methenamine hippurate (HIPREX) 1 gram tablet Take 1 tablet (1 g total) by mouth 1 (one) time each day. 05/24/2024 Active sertraline (ZOLOFT) 50 mg tablet Take 1 tablet (50 mg total) by mouth 1 (one) time each day in the morning. Active traMADoL (ULTRAM) 50 mg tablet Take 1 tablet (50 mg total) by mouth every 8 (eight) hours if needed for severe pain. Max Daily Amount: 150 mg 05/24/2024 Active predniSONE (DELTASONE) 20 mg tablet Take 1 tablet (20 mg total) by mouth 1 (one) time each day. 30 each 1 09/08/2024 Active tiZANidine (ZANAFLEX) 2 mg tablet Take 1 tablet (2 mg total) by mouth 3 (three) times a day. Take 1 tablet (2 mg total) by mouth 3 (three) times a day. 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 Encounters Date Type Department Care Team Description 10/20/2024 10:09 AM EST - 10/20/2024 11:59 PM EST Hospital Encounter [facility] [address] [place] [phone] Jeanne Hewitt MD Demyelinating neuropathy Discharge Disposition: Home or Self Care 09/06/2024 10:16 AM EST - 09/06/2024 11:59 PM EST Hospital Encounter [facility] [address] [phone] Demyelinating neuropathy (Primary Dx) Discharge Disposition: Home or Self Care 09/03/2024 [facility] [address] [facility] [address] [place] [phone] Olena Arnett MD 08/09/2024 10:36 AM EDT - 08/12/2024 11:59 PM EDT Hospital Encounter [facility] [address] [place] [address] Olena Arnett MD from Last 3 Months Immunizations Name Administration Dates Next Due Pfizer SARS-CoV-2 COVID-19, mRNA, LNP-S, preservative free 08/14/2021,07/24/2021 Surgical History Surgery Date Site/Laterality Comments HERNIA REPAIR PROCEDURE:HERNIA REPAIR Medical History Medical History Date Comments MS (multiple sclerosis) (CMS/HCC) DX:MS (multiple sclerosis) (FORM[facility]LY [facility]) Family History Medical History Relation Name Comments Diabetes Father Heart disease Mother Relation Name Status Comments Father Alive Mother Alive Social History Tobacco Use Types Packs/Day Years [...] file Not on file Not on file Obstetrics History Last Filed Vital Signs Vital Sign Reading Time Taken Comments Blood Pressure 128/90 10/20/2024 10:22 AM EST Pulse 135 10/20/2024 10:22 AM EST Temperature 36.4 ??C (97.6 ??F) 10/20/2024 10:[address] Respiratory Rate 16 10/20/2024 10:22 AM EST Oxygen Saturation 95% 10/20/2024 10:22 AM EST Inhaled Oxygen Concentration - - Weight 90.7 kg (200 lb) 09/06/2024 10:57 AM EST Height 175.3 cm (5' 9 ) 06/09/2024 10:26 AM EDT Body Mass Index 29.53 06/09/2024 10:26 AM EDT Plan of Treatment Upcoming Encounters Date Type Department Care Team (Late st Contact Info) Description 11/25/2024 11:30 AM EST Office Visit [facility] [address] [place] [address] Olena Arnett MD [address] [place] [address] 01/11/2025 8:00 AM EDT Appointment [facility] [place] [facility] [address] [phone] Health Maintenance Due Date Last Done Comments Hepatitis B Vaccines (1 of 3 - 19+ 3-dose series) 2003 Cholesterol Screening (Lipid Panel) 09/15/2022 HIV Screening 09/15/2022 Hepatitis C Screening 09/15/2022 Social Influencers of Health Screening 09/15/2022 Depression Screening 08/04/2025 08/04/2024 DTaP,Tdap,and Td Vaccines (2 - Td or Tdap) 05/09/2032 05/09/2022 Pneumococcal Vaccine: Pediatrics (0 to 5 Years) and At-Risk Patients (6 to 64 Years) Aged Out 08/11/2023, 12/14/2015 No longer eligibl e based on patient's [...] on patient's age to complete this topic MMR Vaccines Aged Out No longer eligi ble based on patient's age to complete this topic Meningococcal ACWY Vaccine Aged Out N o longer eligible based on patient's age to complete this topic RSV Immunization Patients Under 20 months Aged Out No longer eligible based on patient's age to complete this topic Varicella Vaccines Aged Out No longer eligible based on patient's age to complete this topic Goals Goal Patient Goal Type Associated Problems Recent Progress Patient-Stated? Author LTGs General No Kingsley Alegria, PT Note: Pt will transfer sit to stand from w/c level with mod assist Pt will transfer stand-pivot toward left with w/walker and mod assist Pt will transfer stand-pivot toward right with w/walker and mod assist Pt will be independent with HEP Procedures Procedure Name Priority Date/Time Associated Diagnosis Comments BUN Routine 09/06/2024 10:37 AM EST Demyelinating neuropathy CREATININE, SERUM Routine 09/06/2024 10: 37 AM EST Demyelinating neuropathy from Last 3 Months Results * (ABNORMAL) Creatinine serum (09/06/2024 10:37 AM EST) Creatinine 0.57(L) 0.70 - 1.30 mg/dL LAB CHEMISTRY METHOD 09/06/2024 12:39 PM EST [facility] eGFR 127 >=60 mL/min/1. 73m2 LAB CHEMISTRY METHOD 09/06/2024 12:39 PM EST [facility] Comment:Calculation based on the??Chronic Kidney Disease Epidemiology Collaboration (CKD-EPI) equation refit??without adjustment for race. Blood Venous blood specimen / Unknown Venipuncture / Unknown 09/06/2024 10:37 AM EST 09/06/2024 11:32 AM EST Jeanne Hewitt MD LAB BLOOD ORDERABLES Performing Organization Address City/[facility]/ZIP Co de Phone Number [facility] [address] [place] [address], * BUN (09/06/2024 10:37 AM EST) [facility] BUN 8 5 - 25 mg/dL LAB CHEMISTRY METHOD 09/06/2024 12:39 PM EST [facility] Blood Venous blood specimen / Unknown Venipuncture / Unknown 09/06/2024 10:37 AM EST 09/06/2024 11:32 AM EST Jeanne Hewitt MD LAB BLOOD ORDERABLES Performing Organization Address City/[facility]/ZIP Co de Phone Number [facility] [address] [place], [place] [address] [phone] from Last 3 Months Advance Directives Documents on File Type Date Recorded Patient Air Box Tester Expl anation Health Care Decision (hx) 10/29/2022 HE ALTH CARE PROXY Health Care Decision (hx) 10/29/2022 HE ALTH CARE PROXY Health Care Decision (hx) 10/29/2022 HE ALTH CARE PROXY Health Care Decision (hx) 10/29/2022 HE ALTH CARE PROXY Health Care Decision (hx) 10/29/2022 HE ALTH CARE PROXY Health Care Decision (hx) 10/29/2022 HE ALTH CARE PROXY Health Care Decision (hx) 10/29/2022 HE ALTH CARE PROXY Health Care Decision (hx) 10/29/2022 HE ALTH CARE PROXY Health Care Decision (hx) 10/29/2022 HE ALTH CARE PROXY Health Care Decision (hx) 10/29/2022 HE ALTH CARE PROXY Health Care Decision (hx) 10/29/2022 HE ALTH CARE PROXY Health Care Decision (hx) 10/29/2022 HE ALTH CARE PROXY Health Care Decision (hx) 10/29/2022 HE ALTH CARE PROXY Health Care Decision (hx) 10/29/2022 HE ALTH CARE PROXY Health Care Decision (hx) 10/29/2022 HE ALTH CARE PROXY Health Care Decision (hx) 10/29/2022 HE ALTH CARE PROXY Health Care Decision (hx) 10/29/2022 HE ALTH CARE PROXY Health Care Decision (hx) 10/29/2022 HE ALTH CARE PROXY Health Care Decision (hx) 10/29/2022 HE ALTH CARE PROXY Health Care Decision (hx) 10/29/2022 HE ALTH CARE PROXY Health Care Decision (hx) 10/29/2022 HE ALTH CARE PROXY Health Care Decision (hx) 10/29/2022 HE ALTH CARE PROXY Health Care Decision (hx) 10/29/2022 HE ALTH CARE PROXY Health Care Decision (hx) 10/29/2022 HE ALTH CARE PROXY Health Care Decision (hx) 10/29/2022 HE ALTH CARE PROXY Health Care Decision (hx) 10/29/2022 HE ALTH CARE PROXY Health Care Decision (hx) 10/29/2022 HE ALTH CARE PROXY Health Care Decision (hx) 10/29/2022 HE ALTH CARE PROXY Health Care Decision (hx) 10/29/2022 HE ALTH CARE PROXY Health Care Decision (hx) 10/29/2022 HE ALTH CARE PROXY Health Care Decision (hx) 10/29/2022 HE ALTH CARE PROXY Health Care Decision (hx) 09/24/2021 AD GONZALEZ DIRECTIVE Health Care Decision (hx) 09/24/2021 AD GONZALEZ DIRECTIVE Health Care Decision (hx) 09/24/2021 AD GONZALEZ DIRECTIVE Health Care Decision (hx) 09/24/2021 AD GONZALEZ DIRECTIVE Health Care Decision (hx) 09/24/2021 AD GONZALEZ DIRECTIVE Health Care Decision (hx) 09/24/2021 AD GONZALEZ DIRECTIVE Health Care Decision (hx) 09/24/2021 AD GONZALEZ DIRECTIVE Health Care Decision (hx) 09/24/2021 AD GONZALEZ DIRECTIVE Health Care Decision (hx) 09/24/2021 AD GONZALEZ DIRECTIVE Health Care Decision (hx) 09/24/2021 AD GONZALEZ DIRECTIVE Health Care Decision (hx) 09/24/2021 AD GONZALEZ DIRECTIVE Health Care Decision (hx) 09/24/2021 AD GONZALEZ DIRECTIVE Health Care Decision (hx) 09/24/2021 AD GONZALEZ DIRECTIVE Health Care Decision (hx) 09/24/2021 AD GONZALEZ DIRECTIVE Health Care Decision (hx) 09/24/2021 AD GONZALEZ DIRECTIVE Health Care Decision (hx) 09/24/2021 AD GONZALEZ DIRECTIVE Health Care Decision (hx) 09/24/2021 AD GONZALEZ DIRECTIVE Health Care Decision (hx) 09/24/2021 AD GONZALEZ DIRECTIVE Health Care Decision (hx) 09/24/2021 AD GONZALEZ DIRECTIVE Health Care Decision (hx) 09/24/2021 AD GONZALEZ DIRECTIVE Health Care Decision (hx) 09/24/2021 AD GONZAELZ DIRECTIVE Health Care Decision (hx) 09/24/2021 AD GONZALEZ DIRECTIVE Health Care Decision (hx) 09/24/2021 AD GONZALEZ DIRECTIVE Health Care Decision (hx) 09/24/2021 AD GONZALEZ DIRECTIVE Health Care Decision (hx) 09/24/2021 AD GONZALEZ DIRECTIVE Health Care Decision (hx) 09/24/2021 AD GONZALEZ DIRECTIVE Health Care Decision (hx) 09/24/2021 AD GONZALEZ DIRECTIVE Health Care Decision (hx) 09/24/2021 AD GONZALEZ DIRECTIVE Health Care Decision (hx) 09/24/2021 AD GONZALEZ DIRECTIVE Health Care Decision (hx) 09/24/2021 AD GONZALEZ DIRECTIVE Health Care Decision (hx) 09/24/2021 AD GONZALEZ DIRECTIVE Health Care Decision (hx) 09/24/2021 AD GONZALEZ DIRECTIVE Health Care Decision (hx) 09/24/2021 AD GONZALEZ DIRECTIVE Care Teams Dot Compliance Specialist Relationship Specialty Start Date End Date Name, MD Ebenezer [address] [place], [place] PCP - General 11/27/22
--- OUTSIDE RECORDS SUMMARY | 2024-11-11 18:13 | XMS_ITS | Encounter Summary ---
Author Organization [employer] Address [address] [place] [address] Care Team Providers Care Implementation Project Coordinator Name Role Phone Name, Ebenezer ROGERS Primary Care Provider [phone] Encounter Details Date Type Department Care Team (Late st Contact Info) Description 10/14/2023 Abstract [facility] [address] [place] [address] Leandro Phillips, DMD [address] [place] [address] Social History Tobacco Use Types Packs/Day Years Used Date Smoking Tobacco: Former Cigarettes Alcohol Use Standard Drinks/Week Comments Not Currently 0 (1 standard drink = 0.6 oz pur e alcohol) Depression Answer Date Recorded Patient Health Questionnaire-9 Score 10 08/18/2023 Patient Health Questionnaire-9 Score 10 08/18/2023 Last PHQ-9: Questionnaire Data Not on file 1 10/18/2022 Housing Stability Answer Date Recorded What is [...] Answer Date Recorded Patient Health Questionnaire-2 Score 3 08/18/2023 Sex and Gender Information Value Date Recorded [...] AM EST Office Visit [facility] [address] [place] [address] Name, MD Ebenezer [address] [place] [address] documented as of this encounter Visit Diagnoses Not on filedocumented in this encounter Additional Health Concerns Assessment Noted Time PHQ-9 Depression Total Score: 10 023 8:48 AM EST documented as of this encounter Care Teams Implementation Project Coordinator Relationship Specialty Start Date End Date Name, MD Ebenezer [address] [place] [phone] PCP - General Family Medicine 06/07/22 codetag 01/06/23 documented as of this encounter
--- OUTSIDE RECORDS SUMMARY | 2024-11-11 18:13 | XMS_ITS | Encounter Summary ---
Author Organization [employer] Address [address] [facility] 7t [place] [address] Care Team Providers Care Trench Shovel Operator Name Role Phone Name, Ebenezer ROGERS Primary Care Provider Reason for Visit * Reason Onset Date Comments verbal order 02/11/2024 Encounter Details Date Type Department Care Team ([facility] st Contact Info) Description 02/11/2024 Telephone [facility] [address] [place], [place] [phone] Name, MD Ebenezer [address] [place] [address] verbal order Social History Tobacco Use Types Packs/Day Years [...] encounter Miscellaneous Notes * Telephone Encounter - Daniel Hicks RN - 02/11/2024 3:24 PM EDT T/C to [phone] for below approved verbal order. Eunice verbally agreed and understood. * Telephone Encounter - Daniel Hicks RN - 02/11/2024 2:27 PM EDT Please review and advise for below request. * Telephone Encounter - Claudia Martini - 02/11/2024 1:07 PM EDT Tc from [facility] with [facility] requesting verbal orders for PT 1-2 times a week for nine weeks. Please contact Eunice at [phone] documented in this encounter Plan of Treatment Upcoming Encounters Date Type Department Care Team (Late st Contact Info) Description 11/17/2024 10:30 AM EST Office Visit [facility] [address] [place], [place] [phone] Name, MD Ebenezer [address] [place] [address] documented as of this encounter Visit Diagnoses Not on filedocumented in this encounter Additional Health Concerns Assessment Noted Time PHQ-9 Depression Total Score: 10 023 8:48 AM EST documented as of this encounter Care Teams Trench Shovel Operator Relationship Specialty Start Date End Date Name, MD Ebenezer [address] [place] [address] PCP - General Family Medicine 06/07/22 [employer] 01/06/23 documented as of this encounter
--- OUTSIDE RECORDS SUMMARY | 2024-11-11 18:13 | XMS_ITS | Encounter Summary ---
Author Organization [employer] Address [address] [facility] 7t [place] [address] Care Team Providers Care Electrical Test Engineer Name Role Phone Name, Ebenezer ROGERS Primary Care Provider [phone] Reason for Visit * Reason Onset Date Comments ER Follow-up 04/09/2024 Encounter Details Date Type Department Care Team ([facility] st Contact Info) Description 04/09/2024 Telephone [facility] MEDICINE [address] [place] [address] Name, MD Ebenezer [address] [place] [address] ER Follow-up Social History Tobacco Use Types Packs/Day Years [...] Telephone Encounter - Daniel Hicks RN - 04/09/2024 4:39 PM EDT T/C to pt. [place] id - [id number] for below message, pt. States he is doing better.Pt. Advised to finish entire course of antibiotics, pt. Also advised to call urologist office for follow up as advised by ED. Pt. Advised to give call to [facility] if any questions or concern. Advised to go to nearest ED in case of any new or worsening symptoms. Pt. Verbally greed and understood. * Telephone Encounter - Garrett Garcia - 04/09/2024 3:46 PM EDT Patient calling to report ED visit on : Date: 04/08 Hospital: [facility] Seen for: UTI Patient advised will forward to team nurse for follow up documented in this encounter Plan of Treatment Upcoming Encounters Date Type Department Care Team (Late st Contact Info) Description 11/17/2024 10:30 AM EST Office Visit [facility] MEDICINE [address] [place] [address] Name, MD Ebenezer [address] [place] [address] documented as of this encounter Visit Diagnoses Not on filedocumented in this encounter Additional Health Concerns Assessment Noted Time PHQ-9 Depression Total Score: 10 023 8:48 AM EST documented as of this encounter Care Teams Electrical Test Engineer Relationship Specialty Start Date End Date Name, MD Ebenezer [address] [place] [address] PCP - General Family Medicine 06/07/22 [place] 01/06/23 documented as of this encounter
--- OUTSIDE RECORDS SUMMARY | 2024-11-11 18:13 | XMS_ITS | Data Portability ---
Author Organization [employer] [facility], [facility] in - [facility] Address [address] [place] [address] Care Team Providers Care Cupola Melter Helper Name Role Phone NAME, KEAGAN Primary Care Provider HIM ELLI OTHER Assessment Encounter Date Assessment Date Assessment LastModified by Organization Details LastModified Time 10/20/2024 10/20/2024 I have reviewed and agree with the assessment and plan as documented by the senior logistics manager. I provided real-time medical direction for this encounter and was immediately available to provide additional phone-based assistance as needed. HPI: 39M found comfortably seated, with concerns for choking episodes. Pt found to have a HR 135, sinus tachy. Pt denying chest pain or SOB. Pt with dysphagia and severe pain with swallowing O/E: reviewed EKG - appears to be sinus tachy with non specific t wave changes. Impression: Discussion with patient re: condition. Likely dehydration. Given he is relatively asymptomatic, could consider IVF, however given severity of tachcardia, would benefit from ongoing monitoring. Recommend ED transfer. Pt agreeable. Plan: for ED paysola Not available 10/20/2024 20:47:25 Plan of Treatment Reminders Order Date Submit Date Provider Last Modified By Organization Details Last Modified Time Details Appointments None recorded. Lab None recorded. Referral None recorded. Procedures None recorded. Surgeries None recorded. Imaging electrocard iogram 2024 025 [facility], [address] [place] [address], [phone], 18:18:18 Medication Orders None recorded. Patient TargetsNo targets recorded. Patient InstructionsNo instructions recorded. Reason for Referral None Reported. Results Created Date Observation Date Name Description Value Unit Range Abnormal Flag Note LastModifiedBy Organization Detail LastModifiedTime 10/20/19 25 marilu melchor am No observ ation record ed. [address], [id number], 10/20/2024 18:18:16 Result Notes None recorded. Procedures Surgical History None recorded. Imaging Results Imaging Date Name Status LastModified by Organization Details LastModified Time 10/20/2024 electrocardiogram completed [address], [id number], 10/20/2024 18:18:16 Procedure Notes None recorded. Medical Equipment None Reported. Allergies No known drug allergies Medications Name Sig Start Date Stop Date Status Note LastModified by Organization Details LastModified Time cyclobenzapr ine 10 mg tablet TAKE 1 TABLET BY MOUTH THREE TIMES DAILY active Not Available Not Available Not Available cefuroxime axetil 250 mg tablet TAKE 1 TABLET BY MOUTH TWICE A DAY FOR 7 DAYS active Not Available Not Available No t Available tizanidine 2 mg tablet TAKE 1 TABLET BY MOUTH EVERY 8 HOURS NEEDED FOR MUSCLE SPASMS active Not Available Not Available No t Available Vitamin C 500 mg tablet TAKE 2 TABLETS BY MOUTH EVERY DAY active Not Available Not Available No t Available cefpodoxime 100 mg tablet TAKE 1 TABLET ORALLY 2 TIMES A DAY MUST ADMINISTER WITH A MEAL/FOOD active Not Available Not Available No t Available prednisone 20 mg tablet TAKE 1 TABLET BY MOUTH ONCE DAILY active Not Available Not Available No t Available tramadol 50 mg tablet TAKE 1 TABLET BY MOUTH EVERY 8 HOURS NEEDED FOR SEVERE PAIN active Not Available Not Available Not Available acetaminophe n 500 mg tablet TAKE 1 TABLET BY MOUTH EVERY 6 HOURS NEEDED FOR MILD PAIN active Not Available Not Available No t Available methenamine hippurate 1 gram tablet TAKE 1 TABLET BY MOUTH TWICE DAILY active Not Available Not Available No t Available lorazepam 0.5 mg tablet TAKE 1 TABLET BY MOUTH 1 HOUR BEFORE MRI AND MAY REPEAT 1 TABLET AT TIME OF MRI NEEDED active Not Available Not Available No t Available clotrimazole -betamethaso ne 1 %-0.05 % topical cream APPLY TOPICALLY TO AFFECTED AREA(S) TWICE DAILY DIRECTED active Not Available Not Available Not Available gabapentin 300 mg capsule TAKE 1 CAPSULE BY MOUTH DAILY AT BEDTIME FOR 1 WEEK THEN 2 CAPSULES AT BEDTIME MAY TAKE 1 ADDITIONAL CAPSULE IN THE MORNING as tolerated active Not Available Not Available No t Available cefuroxime axetil 500 mg tablet TAKE 1 TABLET BY MOUTH TWICE DAILY active Not Available Not Available No t Available levofloxacin 500 mg tablet TAKE 1 TABLET BY MOUTH EVERY DAY FOR 11 DAYS active Not Available Not Available No t Available levofloxacin 750 mg tablet TAKE 1 TABLET BY MOUTH DAILY active Not Available Not Available Not Available sertraline 50 mg tablet TAKE 1 TABLET BY MOUTH EVERY MORNING active Not Available Not Available No t Available doxycycline hyclate 100 mg tablet TAKE 1 TABLET BY MOUTH TWICE DAILY FOR FOURTEEN DAYS TAKE WITH A FULL GLASS OF WATER AND Do not lie down for 30 minutes after taking active Not Available Not Available No t Available clindamycin 1 % lotion APPLY TOPICALLY TO THE AFFECTED AREA(S) TWICE DAILY active Not Available Not Available Not Available nitrofuranto in monohydrate/ macrocrystal s 100 mg capsule TAKE 1 CAPSULE BY MOUTH TWICE A DAY FOR 7 DAYS. TAKE WITH FOOD. active Not Available Not Available N ot Available Vitamin D3 50 mcg (2,000 unit) capsule TAKE 1 CAPSULE BY MOUTH EVERY DAY IN THE MORNING active Not Available Not Available No t Available Vitals Date Recorded Oxygen saturation Oxygen saturation in Arterial blood by Pulse oximetry Respiratory rate Body temperature Heart rate Systolic blood pressure Diastolic blood pressure Provider Name and Address Organization Details Last Updated DateTime 98 % 98 % 18 /min 98.2 [degF] 135 /min 118 mm[Hg] 76 mm[Hg] Not Available [facility] - production 17:54:43 Social History None recorded. Functional Status None recorded. Mental Status None recorded. Family History Nothing Reported. Medical History No medical history recorded. Past Encounters Encounter ID Performer Location Encounter Start Date Encounter Closed Date Diagnosis/Indication Diagnosis SNOMED-CT Code Diagnosis ICD10 Code Diagnosis Note [id number] Nicole Mary MD Main - [facility] [address] [place] [phone] 10/20/2024 17:54:41 10/20/2024 22:18:37 Tachycardia 5937607 R00.0 Health Concerns Section Related Observation LastModified by Organization Detai ls LastModified Time None Recorded Concern Status LastModified by Organization Details LastModified Time None Recorded Advance Directives Directive None Recorded Payers Encounter Date Sequence Insurance Name Policy Number Policy Hendricks Covered Member ID Hendricks Member ID Guarantor Name 10/20/2024 1 [facility] - DOS ON OR AFTER 2023 - DUAL ELIGIBLE - LONG TERM OPTIONS AND ONE CARE (MEDICARE REPLACEMENT/ADV ANTAGE - HMO) Justus Gilman [id number] Justus Gilman Notes Date Note Type Note Provider Name and Address Organization Details Recorded Time 10/20/19 25 text/htm l HPI: Recovery Room Nurse verified the patient's name//address and phone number. NurseKimberly, calling stating pt's VNA found pt's HR has been elevated in the 120s from baseline in the 80s for the last two days. Pt reportedly has known dysphagia and refuses to use thick it and has had choking episodes on his pills. Family also reportedly has not bought pt any thickened foods like pudding that would help with his dysphagia. Education provided on the response time and the patient was advised to monitor reported s/s and seek emergency treatment if needed -Keny Salguero RN .............................. .............................. .............................. .............................. ..................... [facility] Nurse Triage Notes (Mehrdad Salguero - MAUREEN): Reason For Request: [facility] pt Rafael. Jerome has MS and is having a hard time swallowing with concern of aspiration and elevated heartrated Chief Complaints: Heart rate problems, Choking PMH: Multiple Sclerosis, Osteoporosis PMH Reviewed at 10/20/2024:53 Allergies Reviewed at 10/20/2024 16:53 Ladle Builder Organization Information for Pay[employer] Treele[facility] Anderson Legal Name: [employer] Address: [address] [place] [address], [place] [address], Plastic Sewer: Kuldeep Dexter MD CLIA No.: [id number] Ladle Builder POC Test Results from [facility] SHAFFER EKG (18:00:25) EKG test performed. Attachments uploaded as part of this test result can be found under Documents section. SEGMD: Ladle Builder note did not crossover into Vielka so I am entering it here. I did not participate in the care of this patient SummaryDispatched to the call address for the male with tachycardia. Per VNA report, Pts normal HR is in the 80s but she has noticed the last 2 days it has been around 120. Pt states he was at the eye doctors today and they sent him home because his heart rate was too fast. Pt denies any symptoms including chest pain, diff breathing/sob, vision changes, weakness, dizziness or any other complaints. Pt states he is being treated for a UTI but has been on abx for a few days already. Pt is not sure which medications he takes as a nurse puts them out for him and the bottles are locked up.Pt was found sitting on couch, CAOx4, airway open and patent, breathing non labored, able to speak in full sentences. She appeared to be in no obvious distress, skin color appropriate for PWD with good turgor, mucous membranes pink and moist, -JVD, -HEENT, abd soft non tender/distended, pupils PERRL, afebrile, lungs CTA [facility] consulted. EKG/12 lead- sinus tach, non specific T wave abnormalities. [facility] advised of results, ED suggested. Pt agreed. 911 called on behalf of the Pt per his request. This senior logistics manager remained on scene monitoring Pt until EMS arrived. 20g IV in L hand placed while waiting. ALL times are approx.Services ProvidedPatient Education, EKGDispositionFulfilledWas patient sent to ED?YesVMC consulted on the case?Yes - Christina Laboy MD [address] [facility],[address], [place], [address], [employer] 10/21/2024 17:32:55
--- OUTSIDE RECORDS SUMMARY | 2024-11-11 18:13 | XMS_ITS | Encounter Summary ---
Author Organization [employer] Address [address] [facility] 7t [place] [address] Care Team Providers Care Sewing Machine Tester Name Role Phone Name, Ebenezer ROGERS Primary Care Provider [phone] Reason for Visit * Reason Onset Date Comments Appointment Request 09/23/2023 Encounter Details Date Type Department Care Team ([facility] st Contact Info) Description 09/23/2023 Telephone [facility] MEDICINE [address] [place], [place] [phone] Name, MD Ebenezer [address] [place] [address] Appointment Request Social History Tobacco Use Types Packs/Day Years [...] encounter Miscellaneous Notes * Telephone Encounter - Yuridialarry Oscar Jules - 09/23/2023 11:45 AM EST Tc from pt requesting to r/s appt for Follow up on 09/23/2023 @ 10:00 am Please contact pt @ [phone] documented in this encounter Plan of Treatment Upcoming Encounters Date Type Department Care Team (Late st Contact Info) Description 11/17/2024 10:30 AM EST Office Visit [facility] MEDICINE [address] [place] [address] Name, MD Ebenezer [address] [place] [address] documented as of this encounter Visit Diagnoses Not on filedocumented in this encounter Additional Health Concerns Assessment Noted Time PHQ-9 Depression Total Score: 10 023 8:48 AM EST documented as of this encounter Care Teams Sewing Machine Tester Relationship Specialty Start Date End Date Name, MD Ebenezer [address] [place] [address] PCP - General Family Medicine 06/07/22 [employer] 01/06/23 documented as of this encounter
--- OUTSIDE RECORDS SUMMARY | 2024-11-11 18:13 | XMS_ITS | Encounter Summary ---
Author Organization [employer] Address [address] [facility] 7t [place] [address] Care Team Providers Care Brusher Hand Name Role Phone Name, Ebenezer ROGERS Primary Care Provider Reason for Visit * Reason Onset Date Comments Nurse Triage 07/24/2023 Encounter Details Date Type Department Care Team ([facility] st Contact Info) Description 07/24/2023 Telephone [facility] MEDICINE [address] [place] [address] Name, MD Ebenezer [address] [place] [address] Nurse Triage Social History Tobacco Use Types Packs/Day Years Used Date Smoking Tobacco: Former Cigarettes Alcohol Use Standard Drinks/Week Comments Not Currently 0 (1 standard drink = 0.6 oz pur e alcohol) Depression Answer Date Recorded Patient Health Questionnaire-9 Score 10 01/29/2023 Housing Stability Answer Date Recorded What is your housing situation today? I have zohaibkrista singh 07/21/[address] you li ve. Do you have problems with any of the following? None of the above 07/21/2023 Food Insecurity Answer Date Recorded Within the past 12 months, y ou worried that your food would run out before you got money to buy more: Never True 07/21/2023 Within the past 12 months,th e food you bought just didn't last and you didn't have enough money to get more: Never True 06/2023 Transportation Answer Date Recorded In the past 12 months, has l ack of transportation kept you from medical appts, meetings, work or from getting things needed for daily living? No 07/21/2023 Utilities Answer Date Recorded In the past 12 months, has t he electric, gas, oil or water company threatened to shut off services in your home? No 07/21/2023 Depression Answer Date Recorded Patient Health Questionnaire-2 Score 4 01/29/2023 Sex and Gender Information Value Date Recorded Sex Assigned at Male 08/12/2022 10:27 AM EDT Legal Sex Male 10:27 AM EDT Gender Identity Male 08/12/2022 10:27 AM EDT Sexual Orientation Straight 08/12/2022 10 :27 AM EDT documented as of this encounter Miscellaneous Notes * Telephone Encounter - Daniel Hicks RN - 07/25/2023 4:53 PM EDT T/C to pt. Through Quidsi id - [id number] for below message, pt. States he had neurologist apt. Yesterday , his BP was normal at that time and also has normal BP at another incident, he is having high BP incident only when he sees VNA. Pt. Wants to wait to start Amlodipine. Pt. Was advised that message will be sent to PCP for review. Please review and advise if needed. * Telephone Encounter - Beulah Lowery RN - 07/24/2023 3:21 PM EDT Called Sulma with VNA, spoke to Sulma Ozuna states pt's blood pressures are creeping up higher and he is ranging 140-150/90-100. Sulma states pt is asymptomatic at this time. Sulma states pt denies any changes in his routine or diet. Advised to call us back if worsening or new concerns. Pt has upcoming scheduled appt with PCP on 08/11 and nothing sooner. Sulma understands and agrees with plan. Will task to team nurses to follow up as needed. * Telephone Encounter - Mary Billingsley - 07/24/2023 1:05 PM EDT Tc from Sulma (visiting nurse) to inform pt have high blood pressure on Friday07/22/2023 150/98 and during the visit today 142/100. Any questions please contact Sulma [phone] Symptom: High Blood Pressure - Caller Reports Outcome: Schedule an urgent appointment (within 1 hour) or talk to a nurse or provider soon Reason: Getting worse The caller accepted this outcome documented in this encounter Plan of Treatment Upcoming Encounters Date Type Department Care Team (Late st Contact Info) Description 11/17/2024 10:30 AM EST Office Visit [facility] MEDICINE [address] [place] [address] Name, MD Ebenezer [address] [place] [address] documented as of this encounter Visit Diagnoses Not on filedocumented in this encounter Additional Health Concerns Assessment Noted Time PHQ-9 Depression Total Score: 10 023 9:03 AM EDT documented as of this encounter Care Teams Brusher Hand Relationship Specialty Start Date End Date NameEbenezer MD [address] [place] [address] PCP - General Family Medicine 06/07/22 [facility] 01/06/23 documented as of this encounter
--- OUTSIDE RECORDS SUMMARY | 2024-11-11 18:13 | XMS_ITS | Encounter Summary ---
Author Organization [employer] Address [address] [facility] 7t [place] [address] Care Team Providers Care Assembler Movement Name Role Phone Name, Ebneezer ROGERS Primary Care Provider [phone] Reason for Visit * Reason Onset Date Comments FYI 08/22/2023 Encounter Details Date Type Department Care Team ([facility] st Contact Info) Description 08/22/2023 Telephone [facility] MEDICINE [address] [place], [place] [phone] Name, MD Ebenezer [address] [place] [address] FYI Social History Tobacco Use Types Packs/Day Years [...] encounter Miscellaneous Notes * Telephone Encounter - Mary Billingsley - 08/22/2023 9:58 AM EST Tc from Sulma LAGUERRE calling to inform pt were sent out with police assistance yesterday due to behavior. Any questions contact Sulma [phone] documented in this encounter Plan of Treatment Upcoming Encounters Date Type Department Care Team (Late st Contact Info) Description 11/17/2024 10:30 AM EST Office Visit [facility] MEDICINE [address] [place] [address] Name, MD Ebenezer [address] [place] [address] documented as of this encounter Visit Diagnoses Not on filedocumented in this encounter Additional Health Concerns Assessment Noted Time PHQ-9 Depression Total Score: 10 023 8:48 AM EST documented as of this encounter Care Teams Assembler Movement Relationship Specialty Start Date End Date Name, MD Ebenezer [address] [place] [address] PCP - General Family Medicine 06/07/22 [employer] 01/06/23 documented as of this encounter
--- OUTSIDE RECORDS SUMMARY | 2024-11-11 18:13 | XMS_ITS | Encounter Summary ---
Author Organization [facility] Address [address] [place] [address] Care Team Providers Care Aircraft Maintenance Director Name Role Phone Name, Ebenezer ROGERS Primary Care Provider [phone] Encounter Details Date Type Department Care Team (Late st Contact Info) Description 08/03/2024 7:55 AM EDT Hospital Encounter TH HISTORIC ENCOUNTERS EASTERN CONVERSION ONLY Social History Tobacco Use Types Packs/Day Years [...] Sign Reading Time Taken Comments Blood Pressure - - Pulse - - Temperature - - Respiratory Rate - - Oxygen Saturation - - Inhaled Oxygen Concentration - - Weight 95.3 kg (210 lb) 07/12/2024 10:38 AM EDT Height 175.3 cm (5' 9 ) 06/09/2024 10:26 AM EDT Body Mass Index 31.01 06/09/2024 10:26 AM EDT documented in this encounter Plan of Treatment Upcoming Encounters Date Type Department Care Team (Late st Contact Info) Description 11/25/2024 11:30 AM EST Office Visit [facility] [address] [place] [address] Olena Arnett MD [address] [place] [address] 01/11/2025 8:00 AM EDT Appointment [facility] [place] [facility] [address] [facility] [address] [place] [address] documented as of this encounter Goals Goal [...] on filedocumented in this encounter Care Teams Aircraft Maintenance Director Relationship Specialty Start Date End Date Name, MD Ebenezer [address] [place] [address] PCP - General 11/27/22 documented as of this encounter
--- OUTSIDE RECORDS SUMMARY | 2024-11-11 18:13 | XMS_ITS | Encounter Summary ---
Author Organization [employer] Address [address] [facility] [place] [address] Care Team Providers Care Hospice Care Consultant Name Role Phone Name, Ebenezer ROGERS Primary Care Provider [phone] Encounter Details Date Type Department Care Team (Late st Contact Info) Description 10/07/2023 Abstract [facility] [address] [place] [address] Leandro Phillips, DMD [address] [place] [address] Social History Tobacco Use Types Packs/Day Years [...] Description 11/17/2024 10:30 AM EST Office Visit [facility] MEDICINE [address] [place] [address] Name, MD Ebenezer [address] [place] [address] documented as of this encounter Visit Diagnoses Not on filedocumented in this encounter Additional Health Concerns Assessment Noted Time PHQ-9 Depression Total Score: 10 023 8:48 AM EST documented as of this encounter Care Teams Hospice Care Consultant Relationship Specialty Start Date End Date Name, MD Ebenezer [address] [place] [address] PCP - General Family Medicine 06/07/22 [employer] 01/06/23 documented as of this encounter
--- OUTSIDE RECORDS SUMMARY | 2024-11-11 18:13 | XMS_ITS | Encounter Summary ---
Author Organization [facility] Address [address] [place] [address] Care Team Providers Care Vp Ancillary Name Role Phone Name, Ebenezer ROGERS Primary Care Provider [phone] Encounter Details Date Type Department Care Team (Late st Contact Info) Description 07/14/2024 8:00 AM EDT Hospital Encounter TH HISTORIC ENCOUNTERS [...] Description 11/25/2024 11:30 AM EST Office Visit [facility] [address] [place] [address] Olena Arnett MD [address] [place] [address] 01/11/2025 8:00 AM EDT Appointment [facility] [place] Out[facility] [address] [facility] [address] [place] [address] documented as of this encounter [...] on filedocumented in this encounter Care Teams Vp Ancillary Relationship Specialty Start Date End Date Name, MD Ebenezer [address] [place] [address] PCP - General 11/27/22 documented as of this encounter
--- OUTSIDE RECORDS SUMMARY | 2024-11-11 18:13 | XMS_ITS | Encounter Summary ---
[facility] Organization [facility] Address [address] [place] [address] Care Team Providers Care Meter Reader Name Role Phone Name, Ebenezer ROGERS Primary Care Provider [phone] Encounter Details Date Type Department Care Team ([facility] st Contact Info) Description 08/09/2024 10:34 AM EDT Hospital Encounter TH HISTORIC ENCOUNTERS [...] 10:26 AM EDT documented in this encounter Progress Notes * Historical, Notes Results - 08/09/2024 10:30 AM EDT Patient arrives via wheelchair with family member who got him in the chair. Patient appears very flat today. He is definitely not as happy or talkative. When inquiring patient states he doesn't wantto talk about it I told him if he changes his mind, we are all here for him and happy to listen tohim vent. Patient has no acute complaints and states Everything is fine he smells strong of urine. His burciaga bag has output and yellow straw colored urine. PIV started. Patient refused tylenol today and states I dont want to swallow anything today and Iwant my benadryl iv Changed po benadryl to iv benadryl. IVIG started and patient states I just want to sleep today got patient comfortable in chair, refused food or drink. Call villar at reach, will monitor. * Historical, Notes Results - 08/09/2024 10:30 AM EDT Patient finished ivig without any issues and no complaints. I reiterated to him that if he needs totalk, we are here for him and he states I'm ok, really PIV removed with pressure dressing. Patients burciaga bag emptied with 300 ml yellow urine. Patient left stable via wheelchair. Instructed to call with any questions or concerns. documented in this encounter Plan of Treatment Upcoming Encounters Date Type Department Care Team (Late st Contact Info) Description 11/25/2024 11:30 AM EST Office Visit [facility] [place] - [address] [phone] Olena Arnett MD [address] [phone] 01/11/2025 8:[address] [facility] [place] Outpatient Rehabilititation - [address] [phone] documented as of this encounter Goals Goal [...] on filedocumented in this encounter Care Teams Meter Reader Relationship Specialty Start Date End Date Name, MD Ebenezer [address] [place], [place] PCP - General 11/27/22 documented as of this encounter
--- OUTSIDE RECORDS SUMMARY | 2024-11-11 18:13 | XMS_ITS | Encounter Summary ---
Author Organization [employer] Address [address] [facility] [address] [place] [address] Care Team Providers Care Sheet Ironworker Name Role Phone Name, Ebenezer ROGERS Primary Care Provider [phone] Reason for Visit * Reason Onset Date Comments FYI 06/15/2024 Encounter Details Date Type Department Care Team ([facility] st Contact Info) Description 06/15/2024 Telephone [facility] [address] [place] [address] Name, MD Ebenezer [address] [place] [address] Social History Tobacco Use Types Packs/Day Years [...] Telephone Encounter - Daniel Hicks RN - 06/16/2024 10:09 AM EDT Sending as FYI. * Telephone Encounter - Wilder Jules - 06/15/2024 3:27 PM EDT Tc from [employer] leaving an FYI for PCP in regards of pt being discharge for at home services due to pt starting outpatient Services on , Candi reports a nurse will still be going over to for Pt Catheter. documented in this encounter Plan of Treatment Upcoming Encounters Date Type Department Care Team (Late st Contact Info) Description 11/17/2024 10:30 AM EST Office Visit [facility] [address] [place] [address] Name, MD Ebenezer [address] [place] [address] documented as of this encounter Visit Diagnoses Not on filedocumented in this encounter Additional Health Concerns Assessment Noted Time PHQ-9 Depression Total Score: 10 023 8:48 AM EST documented as of this encounter Care Teams Sheet Ironworker Relationship Specialty Start Date End Date Name, MD Ebenezer [address] [place] [address] PCP - General Family Medicine 06/07/22 [employer] 01/06/23 documented as of this encounter
--- OUTSIDE RECORDS SUMMARY | 2024-11-11 18:13 | XMS_ITS | Encounter Summary ---
Author Organization [employer] Address [address] [facility] [address] [place] [address] Care Team Providers Care Steward/Stewardess Club Car Name Role Phone Name, Ebenezer ROGERS Primary Care Provider Reason for Visit * Reason Onset Date Comments ER Follow-up 10/08/2023 Encounter Details Date Type Department Care Team ([facility] st Contact Info) Description 10/08/2023 Telephone [facility] [address] [place] [address] Name, MD Ebenezer [address] [place] [address] ER Follow-up Social History Tobacco Use Types [...] Telephone Encounter - Beverley Echols RN - 10/09/2023 2:31 PM EST Pt evaluated at [facility] ED 10/06/23 Dx: Acute on Chronic Urinary retention and acute UTI. Pt dischargedwith rx for cefuroxime axetil 250mg bid and recommended to follow up with urology. ED note sent to medical records. * Telephone Encounter - Claudia Martini - 10/09/2023 2:23 PM EST Tc from pt calling in regards to ER follow up appointment. Please contact pt at [phone] (Faroese) * Telephone Encounter - Mary Billingsley - 10/08/2023 1:08 PM EST Patient calling to report ED visit on : Date:10/07/2023 Hospital: [facility] Seen for: Abdominal Pain Patient advised will forward to team nurse for follow up. documented in this encounter Plan of Treatment Upcoming Encounters Date Type Department Care Team (Late st Contact Info) Description 11/17/2024 10:30 AM EST Office Visit [facility] [address] [place] [id number] Name, MD Ebenezer [address] [place] [address] documented as of this encounter Visit Diagnoses Not on filedocumented in this encounter Additional Health Concerns Assessment Noted Time PHQ-9 Depression Total Score: 10 023 8:48 AM EST documented as of this encounter Care Teams Steward/Stewardess Club Car Relationship Specialty Start Date End Date Name, MD Ebenezer [address] [place] [address] PCP - General Family Medicine 06/07/22 [employer] 01/06/23 documented as of this encounter
--- OUTSIDE RECORDS SUMMARY | 2024-11-11 18:13 | XMS_ITS | Encounter Summary ---
Author Organization [facility] Address [address] [place] [address] Care Team Providers Care Supervising Deputy Name Role Phone Name, Ebenezer ROGERS Primary Care Provider [phone] Encounter Details Date Type Department Care Team (Late st Contact Info) Description 08/03/2024 7:54 AM EDT Hospital Encounter TH HISTORIC ENCOUNTERS EASTERN CONVERSION ONLY Olena Arnett MD 175 [facility] [address] [place] [address] Social History Tobacco Use Types Packs/Day Years [...] Sign Reading Time Taken Comments Blood Pressure 117/83 08/03/2024 8:21 AM EDT Sit ting Left arm Pulse 96 08/03/2024 8:21 AM EDT Temperature - - Respiratory Rate - - Oxygen Saturation - - Inhaled Oxygen Concentration - - Weight 95.3 kg (210 lb) 07/12/2024 10:3 8 AM EDT Height 175.3 cm (5' 9 ) 06/09/2024 10:2 6 AM EDT Body Mass Index 31.01 06/09/2024 10:26 AM EDT documented in this encounter Progress Notes * Olena Arnett MD - 08/03/2024 8:00 AM EDT HPI: Justus Gilman is a 38 y.o. 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 Last MS exacerbation: Previous disease therapies(reason for switch): tecfidera Current disease therapy: Most recent MRI Brain: 04/2024 FLAIR signal along the left middle and inferior cerebellar peduncle in the medial cerebellar hemisphere adjacent to the fourth ventricle and mild enhancement of this lesion mild enhancement of the left lateral basia inflammatory reaction in the white matter tracts MRI was not compared to prior MRIs 12/2022 extensive T2 hyperintensity the brainstem medulla basia extending to the cerebellar peduncle progressed compared to the prior, no obvious enhancement limited by patient motion Most recent MRI Cervical spine: 04/2024 no T2 changes small caliber cord subtle T2 lesion at the level of C1-C2 Most recent MRI Thoracic spine: 04/2024 no acute changes 12/2022 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 spinal angiography was done did confirm CSF: JCV serology result and date: MS mimickers: MOG ab positive 1:1000, Aqp4 ab negative Interval history Patient is here for follow up No new neurological symptom concerning for demyelination since last visit Patient after last visit we did 5 days of Solu-Medrol patient tolerated the medication really well denies any side effects he has been feeling positive results in his swallowing has improved mobilityand strength have improved he feels less stiff Since last visit he is taking the tizanidine 2 mg in the morning and 2 mg in the afternoon he feelsstiff by the middle of the day we discussed increasing to 1000 mg 3 times a day We did start Rituxan today is getting the second 1 g he is tolerating it well denies any signs or symptoms of infection He has been getting PT OT outpatient at [facility] and they are working from sit to stand he has been doing well Last visit history Patient is here for follow up Patient still on he is still getting IVIG on monthy basis , he is tolerating it well , no side effects Since last visit he has been having worsen symptoms recently with gait imbalance he is still unablewalk , He has been having chocking episodes for both liquid and solid food He did have 2 UTI since last visit , he is still having a supra pubic catheter Discussed with patient MRI results including 04/2024 FLAIR signal along the left middle and inferiorcerebellar peduncle in the medial cerebellar hemisphere adjacent to the fourth ventricle and mild enhancement of this lesion mild enhancement of the left lateral basia inflammatory reaction in the white matter tracts MRI was not compared to prior MRIs He is getting PT/OT home health After multiple attempts for patient to get MRI brain and spine , reviewed with patient Neurologic Exam: BP 117/83 (BP Location: Left arm, Patient Position: Sitting) Pulse 96 Temp 98.4 ??F (36.9 ??C) (Temporal) SpO2 98% MS: AOx3 CN: Lt eye Shadows Lt eye esophoria , V1-3 intact to LT, face symmetric, bilateral SCM/trapezius 5/5, tongue/uvula/palate midline Motor: 5/5 in BUE difficulty with fine motor movement right upper extremity, ble 3/5 proximal , 4/5distal , marked improvement strength increased tone bilateral lower extremity exam worse last visitwith associated bilateral clonus \Sensation: decrease sensation distally bilateral lower extermity Reflexes: 2+ in bilateral biceps and 4 +patellae,bilateral clonus Cerebellar: FNF with dysmetria bilaterally ,unable to access gait wheel chair bound Imaging: MRI brain 2017 compared to 2016 multiple new lesions brain stem medulla, pontomedullary junction cervicomedullary junction , with partial enhancement MRI thoracic spine 2017 normal MRI cervical spine 2016 ? C4 /t1 lesion 2017 no cord lesion A/P: Justus Gilman is a 38 y.o. 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, daily prednisone 20mg .he has been having worsen symptoms recently with gait imbalance he is still unable walk , He has been having chocking episodes for both liquid and solid food follow-up MRI of brain04/2024 FLAIR signal along the left middle and inferior cerebellar peduncle inthe medial cerebellar hemisphere adjacent to the fourth ventricle and mild enhancement of this lesion mild enhancement of the left lateral basia inflammatory reaction in the white matter tracts MRI was not compared to prior MRIs with no T2 changes small caliber cord MRI cervical and thoracic spine that may reflect cord atrophy We discussed that patient lesions and enhancment is concerning that IVIG is not sufficient for treatment we discussed Rituxan initially paient wanted to hold off due to concern of infection we discussed again after imaging patient agrees to starting Rituxan he is tolerating it well Patient had 5 days of Solu-Medrol with good response -Continue Rituxan as per protocol -Preinfusion labs as per [facility] protocol -Continue monthly IVIG, patient feels this is helping to stabilize his condition. -Continue prednisone 20 mg daily for now consider reducing to 10 mg daily aiming to wean after MRI -We will obtain repeat brain, cervical, and thoracic spine MRIs with and without contrast in 3 months after starting rituxan ordered today to be done in September Symptomatic management Spasticity: he failed baclofen 10 mg, increase tizanidine 2 mg 3 times a day Urinary symptoms:Continue follow-up with urology Gait abnormality: continue PT/OT Mood changes: Patient given resources for counseling services in the area and encouraged to call toschedule an appointment. Difficulty swallowing : will obtain a swallow evaluation Follow-up in 3 months The patient and I discussed the clinical picture during today's appointment. Additional time was spent prior to the actual appointment reviewing records, lab values and imaging results and preparing documentation for today's visit. There was also time spent following the in person visit documenting, arranging for further diagnostic testing and follow-up appointments. The entire time spent in thisprocess was greater than 40 minutes. The majority of the actual ftjj-cd-jddp visit was spent counseling the patient with respect to the current neurological picture. Olena Arnett MD documented in this encounter Plan of Treatment Upcoming Encounters Date Type Department Care Team (Late st Contact Info) Description 11/25/2024 11:30 AM EST Office Visit [facility] [place] - [place] [address] [facility] [address] [address] [place] [phone] Olena Arnett MD [address] [facility] [address] [facility] [address] [place] [phone] 01/11/2025 8:00 AM EDT Appointment [facility] - [place] [address] [facility] [address] [facility] [address] [place] [phone] documented as of this encounter Goals Goal [...] on filedocumented in this encounter Care Teams Supervising Deputy Relationship Specialty Start Date End Date Name, MD Ebenezer [address] [place], [place] PCP - General 11/27/22 documented as of this encounter
--- OUTSIDE RECORDS SUMMARY | 2024-11-11 18:13 | XMS_ITS | Clinical Summary ---
[facility] Organization [facility] Address [address] [place] [address] Care Team Providers Care Wedding Florist Name Role Phone Name, Ebenezer ROGERS Primary Care Provider [phone] Allergies No known active allergies Medications Medication Sig Dispensed Refills Start Date End Date Status D3 Super Strength 50 MCG (1999) CAPS Take 1 capsule by mouth daily. 0 09/27/2022 Active Holden-3 Fatty Acids (Fish Oil) 1000 MG CAPS Take 1 capsule by mouth daily. 0 11/21/2022 Active Acetaminophen Extra Strength 500 MG tablet TAKE 1 TABLET BY MOUTH EVERY 6 HOURS NEEDED FOR MILD PAIN 0 03/13/2023 Active LORazepam (ATIVAN) 0.5 MG tablet 1 p.o. 1 hour prior to MRI, may repeat 1 tab at time of MRI if needed 5 tablet 0 02/10/2024 Active predniSONE (DELTASONE) tablet 20 mg TAKE 1 TABLET BY MOUTH EVERY DAY 30 tablet 3 03/31/2024 Active vitamin C (ASCORBIC ACID) 500 MG tablet Take 2 tablets (1,000 mg total) by mouth. 0 02/19/2024 Active sertraline (ZOLOFT) 50 MG tablet 0 04/06/2024 Active levoFLOXacin (LEVAQUIN) 750 MG tablet Take 1 tablet (750 mg total) by mouth daily. 0 06/01/2024 Active tiZANidine (ZANAFLEX) 2 MG tablet Take 1 tablet (2 mg total) by mouth 3 (three) times a day. 90 tablet 3 08/03/2024 Active Active Problems Problem Noted Date Diagnosed Date Demyelinating disease of central nervous system 06/08/2024 MOG antibody disease 03/26/2023 Family History Medical History Relation Name Comments Diabetes Father Heart disease Mother Relation Name Status Comments Father Alive Mother Alive Social History Tobacco Use Types Packs/Day Years Used Date Smoking Tobacco: Former Cigarettes Q uit: 2021 Smokeless Tobacco: Never Tobacco Cessation:Counseling Given: Not Answered Alcohol Use Standard Drinks/Week Comments Not Currently 0 (1 standard drink = 0.6 oz pur e alcohol) Sex and Gender Information Value Date Recorded Sex Assigned at Male 11/05/2022 8:52 AM EST Gender Identity Male 07/23/2023 9:37 AM EDT Sexual Orientation Straight 07/23/2023 9: 37 AM EDT Job Start Date Occupation Industry Not on file Not on file Not on file Last Filed Vital Signs Vital Sign Reading Time Taken Comments Blood Pressure 122/73 08/09/2024 11:04 AM EDT Pulse 95 08/09/2024 11:04 AM EDT Temperature 36.3 ??C (97.4 ??F) 08/09/2024 1 1:04 AM EDT Respiratory Rate 18 08/09/2024 11:0 4 AM EDT Oxygen Saturation 100% 08/09/2024 11: 04 AM EDT Inhaled Oxygen Concentration - - Weight 94.2 kg (207 lb 10.8 oz) 024 10:46 AM EDT Height 175.3 cm (5' 9 ) 06/09/2024 10:2 6 AM EDT Body Mass Index 30.67 06/09/2024 10:26 AM EDT Plan of Treatment Health Maintenance Due Date Last Done Comments Hepatitis B Vaccines (1 of 3 - 3-dose series) 1984 Hepatitis C Screening 1984 Depression Screening 1996 BMI Counseling 2002 Preventative Health Evaluation 2002 COVID-19 Vaccine ( season) 2024 01/29/2023, 08/14/2021, 07/24/2021 Influenza Vaccine (#1) 2024 , 10/23/2022, 08/13/2016, Additional history exists DTap / Tdap / Td (2 - Td or Tdap) 05/09/2032 05/09/2022 Pneumococcal Vaccine Aged Out 08/11/2023, 12/14/19 16 No longer eligible based on patient's age to complete this topic RSV Ped < 20 months Aged Out No longe r eligible based on patient's age to complete this topic Care Teams Wedding Florist Relationship Specialty Start Date End Date Name, MD Ebenezer [address] [facility] [address] [place] [address] PCP - General Internal Medicine 11/27/22
--- OUTSIDE RECORDS SUMMARY | 2024-11-11 18:13 | XMS_ITS | Continuity of Care Document ---
Author Organization [facility] Address [address] [place] [address] Care Team Providers Care Quilting Machine Operator Name Role Phone NAME, KEAGAN Primary Care Provider HIM ELLI OTHER Assessment Encounter Date Assessment Date Assessment LastModified by Organization Details LastModified Time 10/20/2024 10/20/2024 I have reviewed and agree with the assessment and plan as documented by the environmental services floor tech. I provided real-time medical direction for this [...] ED transfer. Pt agreeable. Plan: for ED payla Not available 10/20/2024 20:47:25 Plan of Treatment Reminders Order Date Submit Date Provider Last Modified By Organization Details Last Modified Time Details Appointments None recorded. Lab None recorded. Referral None recorded. Procedures None recorded. Surgeries None recorded. Imaging electrocard iogram 2024 025 [facility], [address] [place] [address], [phone], 18:18:18 Medication Orders None recorded. Patient TargetsNo targets recorded. Patient InstructionsNo instructions recorded. Reason for Referral None Reported. Results Created Date Observation Date Name Description Value Unit Range Abnormal Flag Note LastModifiedBy Organization Detail LastModifiedTime 10/20/19 25 marilu melchor am No observ ation record ed. [address], [phone], 10/20/2024 18:18:16 Result Notes None recorded. Procedures Surgical History None recorded. Imaging Results Imaging Date Name Status LastModified by Organization Details LastModified Time 10/20/2024 electrocardiogram completed [address], [phone], 10/20/2024 18:18:16 Procedure Notes None recorded. Medical [...] SNOMED-CT Code Diagnosis ICD10 Code Diagnosis Note [id number] Nicole Mary MD Main - [facility] [address] [place] [phone] 10/20/2024 17:54:41 10/20/2024 22:18:37 Tachycardia 6033492 R00.0 Health Concerns Section Related Observation LastModified by Organization Detai ls LastModified Time None Recorded Concern Status LastModified by Organization Details LastModified Time None Recorded Payers Encounter Date Sequence Insurance Name Policy Number Policy Hendricks Covered Member ID Hendricks Member ID Guarantor Name 10/20/2024 1 [facility] - DOS ON OR AFTER 2023 - DUAL ELIGIBLE - LONG-TERM OPTIONS AND ONE CARE (MEDICARE REPLACEMENT/ADV ANTAGE - HMO) Justus Gilman [id number] Justus Gilman Notes Date Note Type Note Provider Name and Address Organization Details Recorded Time 10/20/19 25 text/htm l HPI: Food Technology Teacher verified the patient's name//address and phone number. [...] Salguero RN .............................. .............................. .............................. .............................. ..................... [facility] Nurse Triage Notes (Mehrdad Salguero - MAUREEN): Reason For Request: [facility] pt Rafael. Jerome has MS and is having a hard time swallowing with concern of aspiration and elevated heartrated Chief Complaints: Heart rate problems, Choking PMH: Multiple Sclerosis, Osteoporosis PMH Reviewed at 10/20/2024 16:53 Allergies Reviewed at 10/20/2024 16:53 [employer] Organization Information for [employer] Legal Name: [employer] Address: [address] [place] [id number], Director Account Management: Kuldeep Dexter MD CLIA No.: [id number] [employer] POC Test Results from [facility] EKG (18:00:25) EKG test performed. Attachments uploaded as part of this test result can be found under Documents section. SEGMD: Offal Trimmer note did not crossover into [place] so I am entering it here. I [...] of the Pt per his request. This environmental services floor tech remained on scene monitoring Pt until EMS arrived. 20g IV in L hand placed while waiting. ALL times are approx.Services ProvidedPatient Education, EKGDispositionFulfilledWas patient sent to ED?YesVMC consulted on the case?Yes - Christina Laboy MD [address], [place], [address], [email or web address] 10/21/2024 17:32:55
--- OUTSIDE RECORDS SUMMARY | 2024-11-11 18:13 | XMS_ITS | Encounter Summary ---
Author Organization [employer] Address [address] [facility] 7t [place] [address] Care Team Providers Care Terrazzo Mechanic Helper Name Role Phone Name, Ebenezer ROGERS Primary Care Provider [phone] Reason for Visit * Reason Comments Routine Cleaning Dental Exam Perio chart x-rays Encounter Details Date Type Department Care Team ([facility] st Contact Info) Description 09/30/2023 11:00 AM EST Office Visit [facility] [address] [place] [address] Lidia, Raquel [address] [place] [address] Periodontal disease (Primary Dx); Dental calculus Social History Tobacco Use Types Packs/Day Years [...] AM EDT documented as of this encounter Last Filed Vital Signs Vital Sign Reading Time Taken Comments Blood Pressure 124/72 09/30/2023 11:20 AM EST Pulse 68 09/30/2023 11:20 AM EST Temperature - - Respiratory Rate - - Oxygen Saturation - - Inhaled Oxygen Concentration - - Weight - - Height - - Body Mass Index - - documented in this encounter Progress Notes * Raquel Murillo - 09/30/2023 11:00 AM EST 09/30/23: 11 am appoint for FMX, P.exam, Prophy, Perio chart. Heavy bleeding upon probing, pockets from 2 mm to 5 mm in depths, heavy plaque, heavy calculus. Requesting 4 quads SRP D4341. Patient ID: Justus Barba is a 38 y.o. male. Time Out: Timeout Date: 09/30/23, Timeout Time: 1111 Location: [facility] Tooth: Maxilla and Mandible Procedure: Gross debridement , Perio chart Verified the above with patient, equity sales assistant, and provider. Confirmed via patient's chart, intraorally and by radiographs. Pipe Liner: not applicable Medical Hx: Vitals: Blood pressure 124/72, pulse 68. Medications, Med Hx reviewed with patient and updated in chart. Treatment Provided Dental procedures in this visit D1110 - PROPHYLAXIS - ADULT (Completed) Service provider: Raquel Murillo Billing provider: Shadi Iglesias DDS D1330 - ORAL HYGIENE INSTRUCTIONS (Completed) Service provider: Raquel Murillo Billing provider: Shadi Iglesias DDS D1206 - TOPICAL APPLICATION OF FLUORIDE VARNISH Full (Completed) Service provider: Raquel Murillo Billing provider: Shadi Iglesias DDS D9450 - CASE PRESENTATION, DETAILED AND EXTENSIVE TREATMENT PLANNING (Completed) Service provider: Raquel Murillo Billing provider: Shadi Iglesias DDS Instruments Used: Ultrasonic Scalers Fluoride: 5% NaF varnish applied and POI given Oral Cancer Screening: No lesions Head/Neck Exam: No Lesions Calculus: Heavy and Generalized Plaque: Heavy and Generalized Stain: Light and Moderate Bleeding: Heavy and Generalized Gingiva: Perio Charting Completed, Bleeding on probing, Edematous, and Erythematous OH: Poor Perio Chart: Completed Heavy bleeding upon probing, pockets from 2 mm to 5 mm in depths, heavy plaque, heavy calculus. Requesting 4 quads SRP D4341. Oral hygiene instructions provided to patient including brushing technique and flossing. Recommendations: [place] two times daily, modified new technique, Floss daily, Electric toothbrush, Soft bristle toothbrush, [place] Tongue, Listerine. Recall Frequency:SRP if approved Pt lost his Maxillary partials NV: SRP if approved Hygienist: Raquel Murillo RDH * Shadi Iglesias DDS - 09/30/2023 11:00 AM EST I have reviewed the documentation made by the rendering provider, Raquel Murillo RDH, and approve their chart entries for this visit. SUSAN Bauer DDS documented in this encounter Plan of Treatment Upcoming Encounters Date Type Department Care Team (Late st Contact Info) Description 11/17/2024 10:30 AM EST Office Visit [facility] [address] [place] [address] Name, MD Ebenezer [address] [place] [address] Scheduled Orders Name Type Priority Associated Diagnoses Orde r Schedule UR UR PERIODONTAL SCALING AND ROOT PLANING - 4 OR MORE TEETH PER QUADRANT Dental Routine [address] arting 09/30/2023 LR LR PERIODONTAL SCALING AND ROOT PLANING - 4 OR MORE TEETH PER QUADRANT Dental Routine [address] arting 09/30/2023 UL UL PERIODONTAL SCALING AND ROOT PLANING - 4 OR MORE TEETH PER QUADRANT Dental Routine [address] arting 12/09/2023 LL LL PERIODONTAL SCALING AND ROOT PLANING - 4 OR MORE TEETH PER QUADRANT Dental Routine [address] arting 12/09/2023 documented as of this encounter Procedures Procedure Name Priority Date/Time Associated Diagnosis Comments Full TOPICAL APPLICATION OF FLUORIDE VARNISH Routine 09/30/2023 11:00 AM EST Periodontal disease Dental calculus PROPHYLAXIS - ADULT Routine 09/30/2023 1 1:00 AM EST Periodontal disease Dental calculus ORAL HYGIENE INSTRUCTIONS Routine 09/30/2023 11:00 AM EST Periodontal disease Dental calculus ADJUNCTIVE GENERAL SERVICES - PROFESSIONAL VISITS - CASE PRESENTATION, SUBSEQUENT TO DETAILED AND EXTENSIVE TREATMENT PLANNING Routine 09/30/2023 11:00 AM EST documented in this encounter Visit Diagnoses Diagnosis Periodontal disease- Primary Unspecified gingival and periodontal disease Dental calculus Accretions on teeth documented in this encounter Additional Health Concerns Assessment Noted Time PHQ-9 Depression Total Score: 10 023 8:48 AM EST documented as of this encounter Care Teams Terrazzo Mechanic Helper Relationship Specialty Start Date End Date Name, MD Ebenezer [address] [place] [address] PCP - General Family Medicine 06/07/22 [employer] 01/06/23 documented as of this encounter
== END 2024-11-11 15:00 | disposition home or self-care (01) ==
PROVIDERS: Emergency Provider Emergency Medicine; PCP Internal Medicine Geriatric Medicine
DX: Z46.6 Encounter for fitting and adjustment of urinary device (principal); Z96.0 Presence of urogenital implants; N31.9 Neuromuscular dysfunction of bladder, unspecified; G35 Multiple sclerosis; G36.0 Neuromyelitis optica [Devic]; Z87.440 Personal history of urinary (tract) infections; Z74.01 Bed confinement status; Z79.899 Other long term (current) drug therapy
CPT/HCPCS: 99282; 99284

== ENCOUNTER 2024-11-15 10:50 | Emergency (ER) | payer OTHER, SELFPAY ==
[2024-11-15 11:01] VITALS: BP 158/82; PULSE 103; O2SAT 97
[2024-11-15 11:07] VITALS: BP 140/85; PULSE 102; RESP 16; TEMP 36.4; O2SAT 96; BMI 25.8
--- OUTSIDE RECORDS SUMMARY | 2024-11-15 12:31 | XMS_ITS | Encounter Summary ---
Author Organization [employer] Address [address] [facility] 7t [place] [address] Care Team Providers Care Airline Lounge Receptionist Name Role Phone Name, Ebenezer ROGERS Primary Care Provider [phone] Reason for Visit * Reason Onset Date Comments Nurse Triage 10/20/2024 Durable Medical Equipment 10/20/2024 Thicke ner Encounter Details Date Type Department Care Team ([facility] st Contact Info) Description 10/20/2024 Telephone [facility] [address] [place] [address] Name, MD Ebenezer [address] [place] [address] Nurse Triage; Durable Medical Equipment (Thickener) Social History Tobacco Use Types Packs/Day Years [...] * Telephone Encounter - Anastacia Meyer - 11/12/2024 12:12 PM EST DME RX for Thickener packets generated and placed on providers desk for signature. * Telephone Encounter - Beverley Echols RN - 10/29/2024 2:00 PM EST [facility] Liaison states that pt was recently discharged from the hospital on honey thick liquids but wasnot provided thickening packets. [place] [facility] [place] Dx: Sepsis, Acute UTI. [facility] [place] indicate pt was discharged with recommendations for ground/mech/nectar due to dysphagia and recommended to f/u outpatient with speech. Pt was evaluated in [facility] 10/27/24 Dx: MS, UTI T/C placed [...] heart rate and possible aspiration. Visit from [facility] is offered and accepted. Will contact at this time and [facility] will visit Pt . Call to [facility] unable to get through on line. Spoke with [facility] personnel. Pt was triaged with [facility] nurse as well , information given [...] Description 11/17/2024 10:30 AM EST Office Visit [facility] [address] [place] [address] Name, MD Ebenezer [address] [place] [address] documented as of this encounter Visit Diagnoses Not on filedocumented in this encounter Additional Health Concerns Assessment Noted Time PHQ-9 Depression Total Score: 13 024 10:48 AM EDT documented as of this encounter Care Teams Airline Lounge Receptionist Relationship Specialty Start Date End Date Name, MD Ebenezer [address] [place] [address] PCP - General Family Medicine 06/07/22 [employer] 01/06/23 documented as of this encounter
--- OUTSIDE RECORDS SUMMARY | 2024-11-15 12:31 | XMS_ITS | Encounter Summary ---
Author Organization [employer] Address [address] [facility] 7t [place] [address] Care Team Providers Care Biometry Teacher Name Role Phone Name, Ebenezer ROGERS Primary Care Provider [phone] Encounter Details Date Type Department Care Team ([facility] st Contact Info) Description 10/21/2024 Orders [...] [facility] [address] [place] [phone] Name, MD Ebenezer [address] [place] [address] documented as of this encounter Procedures Procedure [...] EST Narrative 10/21/2024 4:13 PM EST ? [facility] ?[address] ?[place] [address] ?XRay Report ? Signed ? Patient: Kalina Barba,Justus ?MR#: [id number] ?? [id number] ? : 1985 ?Acct:[id number] ? Age/Sex: 39 / M ?ADM Date: 10/21/24 ? Loc: [facility] ? Attending Dr: Giulia Alatorre MD ? Ordering Physician: Giulia Alatorre MD ?? Date of Service: 10/21/24 ?? Procedure(s): XR chest 1V ?? Accession Number(s): [id number] ? cc: Ebenezer Leslie MD; Giulia Alatorre [...] DD/ 1600 ? TD/TT: 10/21/24 1603 ? Comfort Advisor: ? Procedure Note Nathaly Image - 10/21/[address] [address] XRay Report Signed Patient: Justus BurrMR#: [id number] : 1985Acct:[id number] Age/Sex: 39 / MADM Date: 10/21/24 Loc: [facility]: Giulia Alatorre MD Ordering Physician: Giulia Alatorre MD Date of Service: 10/21/24 Procedure(s): XR chest 1V Accession Number(s): [id number] cc: Name,Ebenezer ROGERS; Giulia Alatorre MD EXAMINATION: [...] 10/21/24 1610 DD/ 1600 TD/TT: 10/21/24 1603 Comfort Advisor: [facility] External Provider IMG XR PROCEDURES Final Result * (ABNORMAL) Urinalysis, Complete, with Reflex to Culture (10/21/2024 1:41 AM EST) Color Urine Dark Yellow [facility] Appearance Urine Turbid [facility] PH 6.0 5.0 - 9.0 [facility] Glucose Urine UA Negative Negative mg/dL [facility] Urine Blood Large (3+)(A) Negative [facility] Specific Strunk - Urine >=1.030(H) 1.005 - 1.025 [facility] Urine Protein 300 (3+)(A) Neg-Trace mg/dL [facility] Urine Ketones 15 Negative mg/dL [facility] Nitrite Urine Negative Negative [facility] Leukocyte Esterase Urine Large (3+)(A) Negative [facility] RBC Urine >20(A) 0 - 2 /HPF [facility] Urine WBC >50(A) 0 - 5 /HPF [facility] Urine Squamous Epithelial Cell 3-5 0 - 2 /HPF [facility] CALCIUM OXALATE CRYSTAL, UR Present [facility] Urine Bacteria Trace None Seen [facility] Hyaline Casts, Urine >20 0 - 2 /LPF [facility] Urine Yeast Present [facility] 10/21/2024 1:41 AM EST 10/21/2024 1:46 AM EST Narrative [facility] - 10/21/2024 2:00 AM EST [id number], Suprapubic us Generic External Data Provider LAB URINE ORDERAB LES Final Result Performing Organization Address [facility] Co de Phone Number [facility] [address] [place] [phone] * B Type Natriuretic Peptide (BNP) (10/21/2024 1:24 AM EST) Pathologist [facility] B Type Natriuretic Peptide <10 <100 pg/mL [facility] Comment:For those patients w ho are being treated with Natrecor(nesiritide, recombinant BNP), BNP testing should beperformed at least two hours post treatment in order toensure that only endogenous levels of BNP are detected. 10/21/2024 1:24 AM EST 10/21/2024 1:47 AM EST us Generic External Data Provider LAB BLOOD ORDERAB LES Final Result Performing Organization Address [facility] Co de Phone Number [facility] [address] [place] [phone] * SARS-CoV-2 RNA, Influenza A/B, and RSV RNA, Ql NAAT (10/21/2024 1:13 AM EST) Influenza A PCR NEGATIVE Negative [facility] Influenza B PCR NEGATIVE Negative [facility] Resp Syncy Virus RNA Qual PCR NEGATIVE Negative [facility] SARS COV2 PCR NEGATIVE Negative [facility] Comment:All test results mus t [...] use by authorized laboratories.Testing performed on the [email or web address] GeneXpert utilizingreal-time RT-PCR.All SARS CoV2 and positive influenza A/B results arereported to [facility]. 10/21/2024 1:13 AM EST 10/21/2024 1:17 AM EST Generic External Data Provider LAB MICROBIOLOGY - GENERAL ORDERABLES Final Result Performing Organization Address [facility]/ZIP Co de Phone Number [facility] [address] [place] [phone] * Lactic Acid (10/21/2024 1:10 AM EST) Lactic Acid 1.4 0.5 - 2.0 mmol/L [facility] 10/21/2024 1:10 AM EST 10/21/2024 1:14 AM EST Generic External Data Provider LAB BLOOD ORDERAB LES Final Result Performing Organization Address [facility]/ZIP Co de Phone Number [facility] [address] [place] [phone] documented in this encounter Visit Diagnoses Not on filedocumented in this encounter Additional Health Concerns Assessment Noted Time PHQ-9 Depression Total Score: 13 08/04/2 024 10:48 AM EDT documented as of this encounter Care Teams Biometry Teacher Relationship Specialty Start Date End Date Name, MD Ebenezer [address] [place] [address] PCP - General Family Medicine 06/07/22 [employer] 01/06/23 documented as of this encounter
--- OUTSIDE RECORDS SUMMARY | 2024-11-15 12:31 | XMS_ITS | Encounter Summary ---
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 Jeanne Hewitt MD [address] [place] [address] [facility] [address] [place] [phone] Referral ID Status Reason Start Date Expiration Date V isits Requested Visits Authorized [id number] Authorized 09/03/2024 09/03/2025 1 12 Encounter Details Date Type Department Care Team (Latest Contact Info) Description 10/20/2024 10:09 AM EST - 10/20/2024 11:59 PM [facility] Encounter [facility] [address] [place] [phone] Jeanne Hewitt MD [address] [place] [address] Demyelinating neuropathy Discharge Disposition: Home or Self [...] EST 1020 Patient arrives via wheelchair with care technician. gauge and weigh machine operator assisted patient to recliner chair. Pt has [...] has coffee chairside and is comfortable with care technician present. 1105 Call received from Verónica SAHU. We will hold treatment today due to elevated heart rate and ptshould see his pcp or go to urgent care for management of heart rate. 1115 Video translator interpreter used to communicate with patient and care technician in guinean. Glass Crusher James #[id number] was able to explain that pt will not have treatment today due to elevated heart rate and he has to call to arrange an appointment with his pcp or go to urgent care to have the heart rate further evaluated. Pt instructed he would have to call to reschedule his treatment once his heart rate issue is resolved. Patient and care technician verbalized understanding of this via the translator interpreter. 1135 Pt assisted to wheelchair by care technician and wheeled off unit to get the bus. He reports he will call his primary to be seen. documented in this encounter Plan of Treatment Upcoming Encounters Date Type Department Care Team (Late st Contact Info) Description 11/25/2024 11:30 AM EST Office Visit [facility] [place] [address] [facility] [address] [place] [phone] Olena Arnett MD 175 [facility] [address] [place] [phone] 01/11/2025 8:00 AM EDT Appointment [facility] [place] [address] [facility] [address] [place] [phone] documented as of this encounter Goals Goal [...] 08 documented in this encounter Care Teams Insurance Advisor Relationship Specialty Start Date End Date Name, MD Ebenezer [address] [place] [address] PCP - General 11/27/22 documented as of this encounter
--- OUTSIDE RECORDS SUMMARY | 2024-11-15 12:31 | XMS_ITS | Encounter Summary ---
Author Organization [employer] Address [address] [facility] 7t [place] [address] Care Team Providers Care Wood Milling Machine Operator Name Role Phone Name, Ebenezer ROGERS Primary Care Provider [phone] Encounter Details Date Type Department Care Team (Latest Contact Info) Description 12/12/2020 Abstract [facility] CONVERSIONS Dental, Provider, DDS Social History [...] 10:30 AM EST Office Visit [facility] [address] [place] [address] NameEbenezer MD [address] [place] [address] documented as of this encounter Visit Diagnoses Not on filedocumented in this encounter Care Teams Wood Milling Machine Operator Relationship Specialty Start Date End Date NameEbenezer MD [address] [place] [phone] PCP - General Family Medicine 06/07/22 [facility] 01/06/23 documented as of this encounter
--- OUTSIDE RECORDS SUMMARY | 2024-11-15 12:31 | XMS_ITS | Encounter Summary ---
Author Organization [employer] Address [address] [facility] [address]t [place] [address] Care Team Providers Care Contact Officer Name Role Phone Name, Ebenezer ROGERS Primary Care Provider [phone] Reason for Visit * Reason Onset Date Comments FYI 10/18/2024 Encounter Details Date Type Department Care Team ([facility] st Contact Info) Description 10/18/2024 Telephone [facility] MEDICINE [address] [place] [address] Name, MD Ebenezer [address] [place] [address] FYI Social History Tobacco Use Types Packs/Day [...] 10/18/2024 11:59 AM EST Tc from [facility] physical therapist stating pt had elevated heart rate 115/125 no symptomatic nurse will visit pt for assessment pt denied triage call. documented in this encounter Plan of Treatment Upcoming Encounters Date Type Department Care Team (Late st Contact Info) Description 11/17/2024 10:30 AM EST Office Visit [facility] MED[facility] [address] [place] [address] Name, MD Ebenezer [address] [place] [address] documented as of this encounter Visit Diagnoses Not on filedocumented in this encounter Additional Health Concerns Assessment Noted Time PHQ-9 Depression Total Score: 13 024 10:48 AM EDT documented as of this encounter Care Teams Contact Officer Relationship Specialty Start Date End Date Name, MD Ebenezer [address] [place] [address] PCP - General Family Medicine 06/07/22 [employer] 01/06/23 documented as of this encounter
--- OUTSIDE RECORDS SUMMARY | 2024-11-15 12:31 | XMS_ITS | Clinical Summary ---
Author Organization [employer] Address [address] [facility] 7[address] [place] [address] Care Team Providers Care Fork Operator Name Role Phone Name, Ebenezer ROGERS Primary Care Provider [phone] Allergies No known active allergies Medications * [...] at this time. Information to connect with [facility] provided. He agreed to reach [...] Date Type Department Care Team Description 11/03/2024 [facility] [place] [facility] [place] [address] Ebenezer Leslie MD verbal order request 10/21/2024 Orders Only GENERIC EXTERNAL DATA DEPARTMENT Provider, Generic External Data 10/20/2024 [facility] [place] [facility] [place] [address] Ebenezer Leslie MD Nurse Triage; Durable Medical Equipment ([employer]) 10/18/2024 [facility] [place] [address] Ebenezer Leslie MD FYI 10/15/[address] [address] Ebenezer Leslie MD 10/14/2024 [facility] [place] [address] Carlos Case MA Miles recalls 10/08/2024 Telephone [facility] [place] [address] Ebenezer Leslie MD Durable Medical Equipment 10/08/2024 [facility] [place] [address] Ebenezer Leslie MD Request For Order(s) 10/07/[address] [address] Ebenezer Leslie MD ED Follow up 10/03/2024 Orders Only GENERIC EXTERNAL DATA DEPARTMENT Provider, Generic External Data 09/30/2024 [facility] [place] [address] Kevin Calle MA DME from [employer] 09/29/[address] [address] Ebenezer Leslie MD 09/18/2024 Orders Only GENERIC EXTERNAL DATA DEPARTMENT Provider, Generic External Data 09/17/[address] [address] Ebenezer Leslie MD Request For Order(s) 09/16/[address] [address] Carlos Case MA Dme - lift reclincer 09/16/[address] [address] Ebenezer Leslie MD 09/13/[address] [address] Kevin Calle MA DME from [employer] 09/07/2024 Orders Only GENERIC EXTERNAL DATA DEPARTMENT Provider, Generic External Data 09/02/[address] [address] Ebenezer Lelsie MD Durable Medical Equipment 09/02/[address] [address] Carlos Case MA Durable Medical Equipment 09/02/[address] [address] Merry Baird RN 08/30/[address] [address] Ebenezer Leslie MD Durable Medical Equipment 08/21/2024 Refill [facility] [address] [place], [place] [phone] Ebenezer Leslie MD 08/19/2024 Refill [facility] [address] [place], [place] [phone] NameEbenezer MD 08/17/2024 Orders Only GENERIC EXTERNAL DATA [...] Description 11/17/2024 10:30 AM EST Office Visit [facility] [address] [place], [place] [phone] Name, MD Ebenezer [address] [place] [address] Health Maintenance Due Date Last Done Comments [...] NUCLEIC ACID Routine 08/17/2024 12:22 PM EST PROPHYLAXIS - ADULT Routine 09/30/2023 1 1:00 [...] EST Narrative 10/21/2024 4:13 PM EST ? [facility] ?[address] ?[place] [address] ?XRay Report ? Signed ? Patient: Kalina Barba,Justus ?MR#: [id number] ?? [id number] ? : 1985 ?Acct:[id number] ? Age/Sex: 39 / M ?ADM Date: 10/21/24 ? Loc: HO.[place] ?IMC-2 ? Attending Dr: Giulia Alatorre MD ? Ordering Physician: Giulia Alatorre MD ?? Date of Service: 10/21/24 ?? Procedure(s): XR chest 1V ?? Accession Number(s): [id number] ? cc: Ebenezer Leslie MD; Giulia Alatorre [...] DD/ 1600 ? TD/TT: 10/21/24 1603 ? Skiagrapher: ? Procedure Note Kinsey Andersen - 10/21/[address] [address] XRay Report Signed Patient: Justus BurrMR#: [id number] : 1985Acct:[id number] Age/Sex: 39 / MADM Date: 10/21/24 Loc: [facility] IMC-[address]: Giulia Alatorre MD Ordering Physician: Giulia Alatorre MD Date of Service: 10/21/24 Procedure(s): XR chest 1V Accession Number(s): [id number] cc: Name,Ebenezer ROGERS; Giulia Alatorre MD EXAMINATION: [...] 10/21/24 1610 DD/ 1600 TD/TT: 10/21/24 1603 Skiagrapher: [facility] External Provider IMG XR PROCEDURES Final Result * (ABNORMAL) Urinalysis, Complete, with Reflex to Culture (10/21/2024 1:41 AM EST) Only the most recent of3 resultswithin the time period is included. Color Urine Dark Yellow [facility] Appearance Urine Turbid [facility] PH 6.0 5.0 - 9.0 [facility] Glucose Urine UA Negative Negative mg/dL [facility] Urine Blood Large (3+)(A) Negative [facility] Specific [place] - Urine >=1.030(H) 1.005 - 1.025 [facility] Urine Protein 300 (3+)(A) Neg-Trace mg/dL [facility] Urine Ketones 15 Negative mg/dL [facility] Nitrite Urine Negative Negative [facility] Leukocyte Esterase Urine Large (3+)(A) Negative [facility] RBC Urine >20(A) 0 - 2 /HPF [facility] Urine WBC >50(A) 0 - 5 /HPF [facility] Urine Squamous Epithelial Cell 3-5 0 - 2 /HPF [facility] CALCIUM OXALATE CRYSTAL, UR Present [facility] Urine Bacteria Trace None Seen [facility] Hyaline Casts, Urine >20 0 - 2 /LPF [facility] Urine Yeast Present [facility] 10/21/2024 1:41 AM EST 10/21/2024 1:46 AM EST Narrative [facility] - 10/21/2024 2:00 AM EST [id number], Suprapubic Generic External Data Provider LAB URINE ORDERAB LES Final Result Performing Organization Address [facility] Co de Phone Number [facility] [address] [place] [phone] * B Type Natriuretic Peptide (BNP) (10/21/2024 1:24 AM EST) B Type Natriuretic Peptide <10 <100 pg/mL [facility] Comment:For those patients w ho are being treated with Natrecor(nesiritide, recombinant BNP), BNP testing should beperformed at least two hours post treatment in order toensure that only endogenous levels of BNP are detected. 10/21/2024 1:24 AM EST 10/21/2024 1:47 AM EST Generic External Data Provider LAB BLOOD ORDERAB LES Final Result Performing Organization Address [facility] Number [facility] [address] [place] [phone] * SARS-CoV-2 RNA, Influenza A/B, and RSV RNA, Ql NAAT (10/21/2024 1:13 AM EST) Only the most recent of2 resultswithin the time period is included. Influenza A PCR NEGATIVE Negative [facility] Influenza B PCR NEGATIVE Negative [facility] Resp Syncy Virus RNA Qual PCR NEGATIVE Negative [facility] SARS COV2 PCR NEGATIVE Negative [facility] Comment:All test results mus t [...] use by authorized laboratories.Testing performed on the [employer] GeneXpert utilizingreal-time RT-PCR.All SARS CoV2 and positive influenza A/B results arereported to [facility]. 10/21/2024 1:13 AM EST 10/21/2024 1:17 AM EST Generic External Data Provider LAB MICROBIOLOGY - GENERAL ORDERABLES Final Result Performing Organization Address [facility] Co de Phone Number [facility] [address] [place] [phone] * Lactic Acid (10/21/2024 1:10 AM EST) Only the most recent of2 resultswithin the time period is included. Lactic Acid 1.4 0.5 - 2.0 mmol/L [facility] 10/21/2024 1:10 AM EST 10/21/2024 1:14 AM EST Generic External Data Provider LAB BLOOD ORDERAB LES Final Result Performing Organization Address [facility] Co de Phone Number [facility] [address] [place] [phone] * Culture, Urine, Routine (09/18/2024 12:00 AM EST) Only the most recent of2 resultswithin the time period is included. Urine Urine specimen from urinary conduit / Unknown 09/18/2024 09/18/2024 Comment:Urine Cath Narrative [facility] - 09/22/2024 7:40 AM EST Pseudomonas aeruginosa Quant > 100,000 cfu/mL Enterococcus faecalis Quant > 100,000 cfu/mL Pseudomonas aeruginosa: Cefepime 8(S) Pseudomonas aeruginosa: Ciprofloxacin 0.5(S) Pseudomonas aeruginosa: Gentamicin <=1(S) Pseudomonas aeruginosa: Meropenem 1(S) Enterococcus faecalis: Ampicillin <=2(S) Enterococcus faecalis: Levofloxacin 1(S) Enterococcus faecalis: Nitrofurantoin <=16(S) Enterococcus faecalis: Tetracycline >=16(R) Enterococcus faecalis: Vancomycin 1(S) Specimen Source: Urine Catheterized Generic External Data Provider LAB MICROBIOLOGY - GENERAL ORDERABLES Final Result Performing Organization Address [facility]/ZIP Co de Phone Number [facility] [address] [place] [phone] * (ABNORMAL) Urinalysis w/reflex microscopic (09/07/2024 9:58 AM EST) Color Urine Yellow [facility] Appearance Urine Turbid [facility] PH 8.0 5.0 - 9.0 [facility] Glucose Urine UA Negative Negative mg/dL [facility] Urine Blood Trace Negative [facility] Specific [place] - Urine 1.015 1.005 - 1.025 [facility] Urine Protein 300 (3+)(A) Neg-Trace mg/dL [facility] Urine Ketones Negative Negative mg/dL [facility] Nitrite Urine Positive(A) Negative [facility] Leukocyte Esterase Urine Large (3+)(A) Negative [facility] 09/07/2024 9:58 AM EST 09/07/2024 10:06 AM EST Narrative [facility] - 09/07/2024 10:22 AM EST Urine, Suprapubic us Generic External Data Provider LAB URINE ORDERAB LES Final Result Performing Organization Address [facility] Co de Phone Number [facility] [address] [place] [phone] * CT Abdomen Pelvis w/ Contrast (09/07/2024 7:35 AM EST) Anatomical Region Laterality Modality Body, Pelvis, Abdomen Computed T omography 09/07/2024 7:35 AM EST Narrative 09/07/2024 2:16 PM EST ? [facility] ?[address] ?[place] [address] ? [address] Scan Report ? Signed ? Patient: Kalina Barba,Justus ?MR#: [id number] ?? [id number] ? : 1985 ?Acct:[id number] ? Age/Sex: 39 / M ?ADM Date: 09/07/24 ? Loc: HO.ED ? Attending Dr: ? Ordering Physician: Zoraida Alvarado ?? Date of Service: 09/07/24 ?? Procedure(s): CT abdomen pelvis w IV con ?? Accession Number(s): [id number] ? cc: Zoraida Alvarado; Name,Ebenezer ROGERS ? [...] 02:13 PM EST RP ? Dictated By: ?Federman,Kody ? Signed By: ?<Electronically signed by Kody Devries in OV> ?09/07/24 1413 ? DD/ 0735 ? TD/TT: 09/07/24 1024 ? Skiagrapher: ? Procedure Note Nathaly, Kinsey - 09/07/[address] [address] [address] Scan Report Signed Patient: Justus BurrMR#: [id number] : 1985Acct:[id number] Age/Sex: 39 / MADM Date: 09/07/24 Loc: HO.ED Attending Dr: Ordering Physician: Zoraida Alvarado Date of Service: 09/07/24 Procedure(s): CT abdomen pelvis w IV con Accession Number(s): [id number] cc: Zoraida Alvarado; Name,Ebenezer ROGERS EXAMINATION: CT [...] 09/07/24 1413 DD/ 0735 TD/TT: 09/07/24 1024 Skiagrapher: [facility] External Provider IMG CT PROCEDURES Final Result * BD DEXA Axial (09/01/2024 10:15 AM EST) Anatomical Region Laterality Modality Body Radiographic Miriam ging 09/01/2024 10:1 5 AM EST Narrative 09/01/2024 3:11 PM EST ? [facility] [place] ? [address] ?[place] [address] ? Mammography Report ? Signed ? Patient: Kalina Barba,Justus ?MR#: [id number] ?? [id number] ? : 1985 ?Acct:[id number] ? Age/Sex: 39 / M ?ADM Date: 11/20/24 ? Loc: HO.MAMMO ? Attending Dr: Ebenezer Name MD ? Ordering Physician: Name,Ebenezer MD ?Results: ? Date of Service: 11/20/24 ?Follow Up: ? Procedure(s): XR DEXA axial skeleton ?? Accession Number(s): [id number] ? cc: Name,Ebenezer ROGERS ? EXAMINATION: ?? BONE DENSITOMETRY ? CLINICAL INDICATION: ?? Chronic prednisone use. ? COMPARISON: ?? This is the patient's baseline examination. ? TECHNIQUE: ?? Using a [employer] DXA System (software version: 13.1) ?? manufactured by [employer] dual-energy x-ray absorptiometry was ?? performed of [...] DD/ 1015 ? TD/TT: 09/01/24 1040 ? Skiagrapher: RR ? Procedure Note Nathaly, Image - 09/01/2024 [facility] [address] [place] [address] Dr. Berg, [place]AGE [address] Mammography Report Signed Patient: Justus Burr#: [id number] : 1985Acct:[id number] Age/Sex: 39 / MADM Date: 09/01/24 Loc: [facility] Attending Dr: Ebenezer Leslie MD Ordering Physician: NameEbenezerults: Date of Service: 09/01/24Follow Up: Procedure(s): XR DEXA axial skeleton Accession Number(s): [id number] cc: Name,Ebenezer ROGERS EXAMINATION: BONE DENSITOMETRY CLINICAL INDICATION: Chronic prednisone use. COMPARISON: This is the patient's baseline examination. TECHNIQUE: Using a [employer] DXA System (software version: 13.1) manufactured by [employer] dual-energy x-ray absorptiometry was performed of the [...] 09/01/24 1509 DD/ 1015 TD/TT: 09/01/24 1040 Skiagrapher: RR us Ebenezer Anuj ROGERS IMG DXA PROCEDURES Final Result * Slide Review (08/17/2024 12:22 PM EST) Slide Review VERIFIED [facility] 08/17/2024 12:2 2 PM EST 08/17/2024 12:27 PM EST us Generic External Data Provider LAB BLOOD ORDERAB LES Final Result [facility] [address] [place] [phone] * Strep A Nucleic Acid (08/17/2024 12:22 PM EST) [employer]NOW SERIAL# [id number] [facility] Strep A Nucleic Acid Negative Negative [facility] Comment:All test results mus t be [...] LAB MICROBIOLOGY - GENERAL ORDERABLES Final Result [facility] [address] [place] [address] [phone] * (ABNORMAL) CBC auto differential (08/17/2024 12:22 PM EST) White Blood Count 6.8 4.8 - 10.8 X10*3/uL [facility] Red Blood Count 4.93 4.60 - 5.80 X10*6/uL [facility] Hemoglobin 12.8(L) 14.0 - 18.0 g/dl [facility] Hematocrit 39.4(L) 42.0 - 52.0 % [facility] Mean Corpuscular Volume 79.9(L) 80.0 - 98.0 fL [facility] Mean Corpuscular Hemoglobin 26.0(L) 27.0 - 33.0 pg [facility] Mean Corpuscular HGB Conc 32.5 31.0 - 36.0 g/dl [facility] Red Cell Distribution Width 14.8 11.0 - 16.0 % [facility] Platelet Count 176 160 - 400 X10*3/uL [facility] Mean Platelet Volume 12.5(H) 9.4 - 12.4 fL [facility] Neutrophils Percent Auto 68.2 45 - 73 % [facility] Imm Gran Pct Auto 0.4 0.0 - 0.4 % [facility] Lymphocytes Percent Auto 17.2(L) 20 - 40 % [facility] Monocytes Percent Auto 12.5(H) 2 - 11 % [facility] Eosinophils Percent Auto 1.3 0 - 4 % [facility] Basophils Percent Auto 0.4 0 - 2 % [facility] NRBC Pct Auto 0.0 0.0 - 0.2 /100WBC [facility] Neutrophils Absolute Auto 4.6 2.0 - 8.3 x10*3/uL [facility] Imm Gran Abs Auto 0.03 0.00 - 0.03 X10*3/uL [facility] Lymphocytes Absolute Auto 1.2 1.2 - 4.9 X10*3/uL [facility] Monocytes Absolute Auto 0.9 0.1 - 1.2 X10*3/uL [facility] Eosinophils Absolute Auto 0.1 0.0 - 0.4 X10*3/uL [facility] Basophils Absolute Auto 0.0 0.0 - 0.2 X10*3/uL [facility] NRBC Abs Auto 0.000 0.0 - 0.012 X10*3/uL [facility] 08/17/2024 12:2 2 PM EST 08/17/2024 12:27 PM EST Generic External Data Provider LAB BLOOD ORDERAB LES Edited Result - Final Performing Organization Address [facility]/ZIP Co de Phone Number [facility] [address] [place] [phone] * Magnesium (08/17/2024 12:22 PM EST) Pathologist [facility] Magnesium 2.0 1.6 - 2.6 mg/dL [facility] 08/17/2024 12:2 2 PM EST 08/17/2024 12:27 PM EST [employer] External Data Provider LAB BLOOD ORDERAB LES Final Result Performing Organization Address [facility]/ZIP Co de Phone Number [facility] [address] [place] [phone] * (ABNORMAL) Comprehensive Metabolic Panel (08/17/2024 12:22 PM EST) Sodium 141 135 - 145 mmol/L [facility] Potassium 3.7 3.3 - 5.1 mmol/L [facility] Chloride 103 96 - 108 mmol/L [facility] Carbon Dioxide 26 22 - 29 mmol/L [facility] Anion Gap 16 12 - 20 [facility] Urea Nitrogen (BUN) 6(L) 9 - 16 mg/dL [facility] Creatinine, Serum 0.67 0.5 - 1.4 mg/dL [facility] Creatinine Clr Calc Pharmacy 172.3 [facility] Comment:eGFR (calculated fro m the MDRD study equation) and eCrCl(calculated from the Cockcroft-Gault equation) are based ondifferent parameters and may not yield comparable results.If eCrCl result is absurd, please check patient'sheight/weight. Estimated Glomerular Filt Rate >60 [facility] Comment:NOTE: For -Am erican individuals, multiply the result by 1.210.Chronic Kidney Disease: Estimated GFR < 60 mL/min/1.01f5Kmecvh Kidney Disease: Estimated GFR < 15 mL/min/1.73m2 Glucose 85 60 - 115 mg/dL [facility] Calcium 9.7 8.4 - 10.2 mg/dL [facility] Bilirubin, Total 0.3 0.0 - 1.0 mg/dL [facility] Aspartate Amino Transferase 23 5 - 37 U/L [facility] Alanine Aminotransferase 14 0 - 40 U/L [facility] Total Protein 8.0 6.5 - 8.0 g/dL [facility] Albumin Level 3.9 3.5 - 5.0 g/dL [facility] Alkaline Phosphatase 63 39 - 117 U/L [facility] 08/17/2024 12:2 2 PM EST 08/17/2024 12:27 PM EST us Generic External Data Provider LAB BLOOD ORDERAB LES Final Result [facility] [address] [place] [phone] from Last 3 Months Insurance [facility] - [facility] - [facility] Care Teams Fork Operator Relationship Specialty Start Date End Date Name, MD Ebenezer [address] [place] [address] PCP - General Family Medicine 06/07/22 [employer] 01/06/23
--- OUTSIDE RECORDS SUMMARY | 2024-11-15 12:31 | XMS_ITS | Encounter Summary ---
Author Organization [employer] Address [address] [facility] 7[address] [place] [address] Care Team Providers Care Letter Sorting Machine Operator Name Role Phone Name, Ebenezer ROGERS Primary Care Provider [phone] Reason for Visit * Reason Onset Date Comments verbal order request 11/03/2024 Encounter Details Date Type Department Care Team ([facility] st Contact Info) Description 11/03/2024 Telephone [facility] [address] [place] [address] Name, MD Ebenezer [address] [place] [address] verbal order request Social History Tobacco Use [...] 2:20 PM EST Tc to Tami @ [facility] provided verbal order for pt to have physical Therapy Service 2x a week for8 weeks. Tami verbalized understanding and no further questions or concerns at this time. * Telephone Encounter - Sergio Orosco - 11/03/2024 1:45 PM EST Tc from Tami with [facility] requesting a verbal order for physical therapy 2x a week for 8 weeks. Any questions please contact Tami [phone] documented in this encounter Plan of Treatment Upcoming Encounters Date Type Department Care Team (Late st Contact Info) Description 11/17/2024 10:30 AM EST Office Visit [facility] [address] [place] [address] Name, MD Ebenezer [address] [place] [address] documented as of this encounter Visit Diagnoses Not on filedocumented in this encounter Additional Health Concerns Assessment Noted Time PHQ-9 Depression Total Score: 13 024 10:48 AM EDT documented as of this encounter Care Teams Letter Sorting Machine Operator Relationship Specialty Start Date End Date Name, MD Ebenezer [address] [place] [address] PCP - General Family Medicine 06/07/22 [facility] 01/06/23 documented as of this encounter
--- OUTSIDE RECORDS SUMMARY | 2024-11-15 12:32 | XMS_ITS | Encounter Summary ---
Author Organization [facility] Address [address] [place] [address] Care Team Providers Care Bowling Alley Operator Name Role Phone Name, Ebenezer ROGERS Primary Care Provider [phone] Encounter Details Date Type Department Care Team (Late st Contact Info) Description 08/03/2024 7:54 AM EDT Hospital Encounter TH HISTORIC ENCOUNTERS EASTERN CONVERSION ONLY Olena Arnett MD [address] [facility] [address] [place] [phone] Social History Tobacco Use Types [...] has been getting PT OT outpatient at [facility] and they are working from sit to [...] as per protocol -Preinfusion labs as per [facility] protocol -Continue monthly IVIG, patient feels this [...] 40 minutes. The majority of the actual [id number] visit was spent counseling the patient with respect to the current neurological picture. Olena Arnett MD documented in this encounter Plan of Treatment Upcoming Encounters Date Type Department Care Team (Late st Contact Info) Description 11/25/2024 11:30 AM EST Office Visit [facility] [place] [address] [place] [phone] Olena Arnett MD [address] [facility] [address] [place] [phone] 01/11/2025 8:00 AM EDT Appointment [facility] [place] [address] [facility] [address] [place] [phone] documented as of this encounter Goals Goal [...] on filedocumented in this encounter Care Teams Bowling Alley Operator Relationship Specialty Start Date End Date Name, MD Ebeenzer [address] [place], [place] PCP - General 11/27/22 documented as of this encounter
--- OUTSIDE RECORDS SUMMARY | 2024-11-15 12:32 | XMS_ITS | Encounter Summary ---
Author Organization [employer] Address [address] [facility] 7t [place] [address] Care Team Providers Care Pipe Stripper Name Role Phone Name, Ebenezer ROGERS Primary Care Provider [phone] Reason for Visit * Reason Onset Date Comments FYI 08/22/2023 Encounter Details Date Type Department Care Team ([facility] st Contact Info) Description 08/22/2023 Telephone [facility] MEDICINE [address] [place], [place] [phone] Name, MD Ebenezer [address] [place] [address] FYI Social History Tobacco Use Types Packs/Day [...] due to behavior. Any questions contact Sulma [phone] documented in this encounter Plan of Treatment Upcoming Encounters Date Type Department Care Team (Late st Contact Info) Description 11/17/2024 10:30 AM EST Office Visit [facility] MEDICINE [address] [place] [address] Name, MD Ebenezer [address] [place] [address] documented as of this encounter Visit Diagnoses Not on filedocumented in this encounter Additional Health Concerns Assessment Noted Time PHQ-9 Depression Total Score: 10 023 8:48 AM EST documented as of this encounter Care Teams Pipe Stripper Relationship Specialty Start Date End Date Name, MD Ebenezer [address] [place] [address] PCP - General Family Medicine 06/07/22 [employer] 01/06/23 documented as of this encounter
--- OUTSIDE RECORDS SUMMARY | 2024-11-15 12:32 | XMS_ITS | Encounter Summary ---
Author Organization [facility] Address [address] [place] [address] Care Team Providers Care Printing Machine Operator Name Role Phone Name, Ebenezer ROGERS Primary Care Provider [phone] Encounter Details Date Type Department Care Team [...] Description 11/25/2024 11:30 AM EST Office Visit [facility] [place] - [address] [phone] Olena Arnett MD [address] [phone] 01/11/2025 8:[address] [facility] MS Outpatient Rehabilititation - [place] [address] [phone] documented as of this encounter Goals Goal [...] on filedocumented in this encounter Care Teams Printing Machine Operator Relationship Specialty Start Date End Date Name, MD Ebenezer [address] [place], [place] PCP - General 11/27/22 documented as of this encounter
--- OUTSIDE RECORDS SUMMARY | 2024-11-15 12:32 | XMS_ITS | Encounter Summary ---
Author Organization [facility] Address [address] [place] [address] Care Team Providers Care Case Consultant Name Role Phone Name, Ebenezer ROGERS Primary Care Provider [phone] Encounter Details Date Type Department Care Team [...] Description 11/25/2024 11:30 AM EST Office Visit [facility] [address] [place] [address] Olena Arnett MD [address] [place] [address] 01/11/2025 8:00 AM EDT Appointment [facility] MS Outpatient Rehabilititation [facility] 175 [facility] 150 [place] [address] documented as of this encounter [...] on filedocumented in this encounter Care Teams Case Consultant Relationship Specialty Start Date End Date Name, MD Ebenezer [address] [place] [address] PCP - General 11/27/22 documented as of this encounter
--- OUTSIDE RECORDS SUMMARY | 2024-11-15 12:32 | XMS_ITS | Encounter Summary ---
Author Organization [employer] Address [address] [facility] 7t [place] [address] Care Team Providers Care Clip And Hanger Attacher Name Role Phone Name, Ebenezer ROGERS Primary Care Provider [phone] Reason for Visit * Reason Comments Routine Cleaning Dental Exam Perio chart x-rays Encounter Details Date Type Department Care Team ([facility] st Contact Info) Description 09/30/2023 11:00 AM EST Office Visit [facility] ADULT DENTAL [address] [place] [address] Lidia, Raquel [address] [place] [address] Periodontal disease (Primary Dx); Dental calculus Social [...] Timeout Date: 09/30/23, Timeout Time: 1111 Location: [facility] Tooth: Maxilla and Mandible Procedure: Gross debridement , Perio chart Verified the above with patient, virtual assistant for advertisers, and provider. Confirmed via patient's chart, intraorally and by radiographs. Commissioner Of Conciliation: not applicable Medical Hx: Vitals: Blood pressure [...] patient including brushing technique and flossing. Recommendations: [place] two times daily, modified new technique, Floss daily, Electric toothbrush, Soft bristle toothbrush, [place] Tongue, Listerine. Recall Frequency:SRP if approved Pt [...] Description 11/17/2024 10:30 AM EST Office Visit [facility] MEDICINE [address] [place] [address] Name, MD Ebenezer [address] [place] [address] Scheduled Orders Name Type Priority Associated Diagnoses [...] documented as of this encounter Care Teams Clip And Hanger Attacher Relationship Specialty Start Date End Date Name, MD Ebenezer [address] [place] [address] PCP - General Family Medicine 06/07/22 [employer] 01/06/23 documented as of this encounter
--- OUTSIDE RECORDS SUMMARY | 2024-11-15 12:32 | XMS_ITS | Encounter Summary ---
Author Organization [employer] Address 75 [facility] 7t [place] [address] Care Team Providers Care Cable Wirer Name Role Phone Name, Ebenezer ROGERS Primary Care Provider [phone] Reason for Visit * Reason Onset Date Comments ER Follow-up 10/08/2023 Encounter Details Date Type Department Care Team ([facility] st Contact Info) Description 10/08/2023 Telephone [facility] MEDICINE [address] [place] [address] Name, MD Ebenezer [address] [place] [address] ER Follow-up Social History Tobacco Use Types [...] 10/09/2023 2:31 PM EST Pt evaluated at [facility] ED 10/06/23 Dx: Acute on Chronic Urinary retention and acute UTI. Pt dischargedwith rx for cefuroxime axetil 250mg bid and recommended to follow up with urology. ED note sent to medical records. * Telephone Encounter - Claudia Martini - 10/09/2023 2:23 PM EST Tc from pt calling in regards to ER follow up appointment. Please contact pt at [phone] (Nigerian) * Telephone Encounter - Mary Billingsley - 10/08/2023 1:08 PM EST Patient calling to report ED visit on : Date:10/07/2023 Hospital: [facility] Seen for: Abdominal Pain Patient advised will forward to team nurse for follow up. documented in this encounter Plan of Treatment Upcoming Encounters Date Type Department Care Team (Late st Contact Info) Description 11/17/2024 10:30 AM EST Office Visit [facility] [address] [place] [address] Name, MD Ebenezer [address] [place] [address] documented as of this encounter Visit Diagnoses Not on filedocumented in this encounter Additional Health Concerns Assessment Noted Time PHQ-9 Depression Total Score: 10 023 8:48 AM EST documented as of this encounter Care Teams Cable Wirer Relationship Specialty Start Date End Date Name, MD Ebenezer [address] [place] [address] PCP - General Family Medicine 06/07/22 [employer] 01/06/23 documented as of this encounter
--- OUTSIDE RECORDS SUMMARY | 2024-11-15 12:32 | XMS_ITS | Encounter Summary ---
Author Organization [employer] Address 75 [facility] 7t [place] [address] Care Team Providers Care Concrete Vibrator Operator Name Role Phone Name, Ebenezer ROGERS Primary Care Provider [phone] Reason for Visit * Reason Onset Date Comments verbal order 02/11/2024 Encounter Details Date Type Department Care Team ([facility] st Contact Info) Description 02/11/2024 Telephone [facility] MEDICINE 230 [place], [place] [phone] Name, MD Ebenezer [address] [place] [address] verbal order Social History Tobacco Use Types [...] - 02/11/2024 3:24 PM EDT T/C to [phone] for below approved verbal order. Eunice verbally agreed and understood. * Telephone Encounter - Daniel Hicks RN - 02/11/2024 2:27 PM EDT Please review and advise for below request. * Telephone Encounter - Claudia Martini - 02/11/2024 1:07 PM EDT Tc from [facility] with [facility] requesting verbal orders for PT 1-2 times a week for nine weeks. Please contact Eunice at [phone] documented in this encounter Plan of Treatment Upcoming Encounters Date Type Department Care Team (Late st Contact Info) Description 11/17/2024 10:30 AM EST Office Visit [facility] MEDICINE [address] [place], [place] [phone] Name, MD Ebenezer [address] [place] [address] documented as of this encounter Visit Diagnoses Not on filedocumented in this encounter Additional Health Concerns Assessment Noted Time PHQ-9 Depression Total Score: 10 023 8:48 AM EST documented as of this encounter Care Teams Concrete Vibrator Operator Relationship Specialty Start Date End Date Name, MD Ebenezer [address] [place] [address] PCP - General Family Medicine 06/07/22 [employer] 01/06/23 documented as of this encounter
--- OUTSIDE RECORDS SUMMARY | 2024-11-15 12:32 | XMS_ITS | Clinical Summary ---
Author Organization [facility] Address [address] [place] [address] Care Team Providers Care Marketing Underwriter Name Role Phone Name, Ebenezer ROGERS Primary Care Provider [phone] Allergies No known active allergies Medications Medication Sig Dispensed Refills Start Date End Date Status D3 Super Strength 50 MCG (1999) CAPS Take 1 capsule by mouth daily. 0 09/27/2022 Active Brunswick-3 Fatty Acids (Fish Oil) 1000 MG CAPS [...] age to complete this topic Care Teams Marketing Underwriter Relationship Specialty Start Date End Date Name, MD Ebenezer 230 [facility] [address] [place] [address] PCP - General Internal Medicine 11/27/22
--- OUTSIDE RECORDS SUMMARY | 2024-11-15 12:32 | XMS_ITS | Encounter Summary ---
Author Organization [employer] Address [address] [facility] 7t [place] [address] Care Team Providers Care Greens Planter Name Role Phone Name, Ebenezer ROGERS Primary Care Provider Reason for Visit * Reason Onset Date Comments Nurse Triage 07/24/2023 Encounter Details Date Type Department Care Team ([facility] st Contact Info) Description 07/24/2023 Telephone [facility] MEDICINE [address] [place] [address] Name, MD Ebenezer [address] [place] [address] Nurse Triage Social History Tobacco Use Types [...] 4:53 PM EDT T/C to pt. Through [employer] id - [id number] for below message, pt. States he had [...] today 142/100. Any questions please contact Sulma [phone] Symptom: High Blood Pressure - Caller Reports Outcome: Schedule an urgent appointment (within 1 hour) or talk to a nurse or provider soon Reason: Getting worse The caller accepted this outcome documented in this encounter Plan of Treatment Upcoming Encounters Date Type Department Care Team (Late st Contact Info) Description 11/17/2024 10:30 AM EST Office Visit [facility] MEDICINE [address] [place] [address] Name, MD Ebenezer [address] [place] [address] documented as of this encounter Visit Diagnoses Not on filedocumented in this encounter Additional Health Concerns Assessment Noted Time PHQ-9 Depression Total Score: 10 023 9:03 AM EDT documented as of this encounter Care Teams Greens Planter Relationship Specialty Start Date End Date NameEbenezer MD [address] [place] [address] PCP - General Family Medicine 06/07/22 [employer] 01/06/23 documented as of this encounter
--- OUTSIDE RECORDS SUMMARY | 2024-11-15 12:32 | XMS_ITS | Encounter Summary ---
Author Organization [employer] Address [address] [facility] [address] 7t [place] [address] Care Team Providers Care Electrolysis Needle Operator Name Role Phone Name, Ebenezer ROGERS Primary Care Provider [phone] Encounter Details Date Type Department Care Team (Late st Contact Info) Description 10/07/2023 Abstract [facility] ADULT DENTAL [address] [place] [address] Leandro Phillips, DMD [address] [place] [address] Social History Tobacco Use Types Packs/Day Years [...] EST Office Visit [facility] MEDICINE [address] [place] [address] Name, MD Ebenezer [address] [place] [address] documented as of this encounter Visit Diagnoses Not on filedocumented in this encounter Additional Health Concerns Assessment Noted Time PHQ-9 Depression Total Score: 10 023 8:48 AM EST documented as of this encounter Care Teams Electrolysis Needle Operator Relationship Specialty Start Date End Date Name, MD Ebenezer [address] [place] [address] PCP - General Family Medicine 06/07/22 [employer] 01/06/23 documented as of this encounter
--- OUTSIDE RECORDS SUMMARY | 2024-11-15 12:32 | XMS_ITS | Encounter Summary ---
Author Organization [facility] Address [address] [place] [address] Care Team Providers Care Locum Tenens Psychiatrist Name Role Phone Name, Ebenezer ROGERS Primary Care Provider [phone] Encounter Details Date Type Department Care Team [...] 11/25/2024 11:30 AM EST Office Visit [facility] [address] [place] [address] Olena Arnett MD [address] [place] [address] 01/11/2025 8:00 AM EDT Appointment [facility] MS Outpatient Rehabilititation [facility] 175 [facility] 150 [place] [address] documented as of this encounter [...] on filedocumented in this encounter Care Teams Locum Tenens Psychiatrist Relationship Specialty Start Date End Date Name, MD Ebenezer [address] [place] [address] PCP - General 11/27/22 documented as of this encounter
--- OUTSIDE RECORDS SUMMARY | 2024-11-15 12:32 | XMS_ITS | Continuity of Care Document ---
Author Organization [employer] [facility], Or in - [facility] Address [address] [place] [address] Care Team Providers Care Certified Medical Coding Specialist Name Role Phone NAME, KEAGAN Primary Care Provider [phone] HIM ELLI OTHER Assessment Encounter Date Assessment Date Assessment LastModified by Organization Details LastModified Time 10/20/2024 10/20/2024 I have reviewed and agree with the assessment and plan as documented by the dispatch supervisor. I provided real-time medical direction for this [...] None recorded. Imaging electrocard iogram 2024 025 [facility], [address] [place] [address], [phone], 18:18:18 Medication Orders None recorded. Patient TargetsNo targets recorded. Patient InstructionsNo instructions recorded. Reason for Referral None Reported. Results Created Date Observation Date Name Description Value Unit Range Abnormal Flag Note LastModifiedBy Organization Detail LastModifiedTime 10/20/19 25 marilu melchor am No observ ation record ed. [address], [address], 10/20/2024 18:18:16 Result Notes None recorded. Procedures Surgical History None recorded. Imaging Results Imaging Date Name Status LastModified by Organization Details LastModified Time 10/20/2024 electrocardiogram completed [address], [address], 10/20/2024 18:18:16 Procedure Notes None recorded. Medical [...] SNOMED-CT Code Diagnosis ICD10 Code Diagnosis Note [id number] Nicole Mary MD Main - [facility] [address] [place] [phone] 10/20/2024 17:54:41 10/20/2024 22:18:37 Tachycardia 9050701 R00.0 Health Concerns Section Related Observation LastModified by Organization Detai ls LastModified Time None Recorded Concern Status LastModified by Organization Details LastModified Time None Recorded Payers Encounter Date Sequence Insurance Name Policy Number Policy Hendricks Covered Member ID Hendricks Member ID Guarantor Name 10/20/2024 1 [facility] - DOS ON OR AFTER 2023 - DUAL ELIGIBLE - INTERMEDIATE OPTIONS AND ONE CARE (MEDICARE REPLACEMENT/ADV ANTAGE - HMO) Justus Gilman [id number] Justus Gilman Notes Date Note Type Note Provider Name and Address Organization Details Recorded Time 10/20/19 25 text/htm l HPI: Universal Grinder Operator verified the patient's name//address and phone number. [...] Salguero RN .............................. .............................. .............................. .............................. ..................... [facility] Nurse Triage Notes (Mehrdad Salugero - MAUREEN): Reason For Request: Nurse Harris from [facility] calling for pt Rafael. Jerome has MS and is having a hard time swallowing with concern of aspiration and elevated heartrated Chief Complaints: Heart rate problems, Choking PMH: Multiple Sclerosis, Osteoporosis PMH Reviewed at 10/20/2024 16:53 Allergies Reviewed at 10/20/2024 16:53 Hoop Expander Organization Information for [employer] [facility] Legal Name: [employer] Address: [address] [place] [address], Senior Hr Generalist: Kuldeep Dexter MD CLIA No.: [id number] [employer] POC Test Results from [facility] EKG (18:00:25) EKG test performed. Attachments uploaded as part of this test result can be found under Documents section. SEGMD: Hoop Expander note did not crossover into [place] so I am entering it here. I [...] of the Pt per his request. This dispatch supervisor remained on scene monitoring Pt until EMS arrived. 20g IV in L hand placed while waiting. ALL times are approx.Services ProvidedPatient Education, EKGDispositionFulfilledWas patient sent to ED?YesVMC consulted on the case?Yes - Christina Laboy MD [address] [facility],[address]LOOR, [place], [address], [employer] 10/21/2024 17:32:55
--- OUTSIDE RECORDS SUMMARY | 2024-11-15 12:32 | XMS_ITS | Clinical Summary ---
Author Organization [facility] Address [address] [place] [address] Phone Care Team Providers Care Beekeeper Name Role Phone Name, Ebenezer ROGERS Primary Care Provider [phone] Allergies No known active allergies Medications Medication [...] 10:09 AM EST - 10/20/2024 11:59 PM [facility] Hospital Encounter [facility] [address] [phone] Jeanne Hewitt MD Demyelinating neuropathy Discharge Disposition: Home or Self Care 09/06/2024 10:16 AM EST - 09/06/2024 11:59 PM [facility] Hospital Encounter [facility] [address] [phone] Demyelinating neuropathy (Primary Dx) Discharge Disposition: Home or Self Care 09/03/2024 Telephone [facility] 175 [facility] [address] [place] [phone] Olena Arnett MD from Last 3 Months Immunizations Name Administration Dates Next Due [facility] SARS-CoV-2 COVID-19, mRNA, LNP-S, preservative free 08/14/2021,07/24/2021 Surgical History Surgery Date Site/Laterality Comments HERNIA REPAIR PROCEDURE:HERNIA REPAIR Medical History Medical History Date Comments MS (multiple sclerosis) (CMS/HCC) DX:MS (multiple sclerosis) (HCC) Family History Medical History Relation Name Comments [...] Description 11/25/2024 11:30 AM EST Office Visit [facility] [place] [address] [facility] [address] [place] [address] Olena Arnett MD [address] [facility] [address] [place] [address] 01/11/2025 8:00 AM EDT Appointment [facility] Out[facility] - [place] [address] [facility] [address] [place] [phone] Health Maintenance Due Date Last Done Comments [...] LAB CHEMISTRY METHOD 09/06/2024 12:[address] [facility] eGFR 127 >=60 mL/min/1. 73m2 LAB CHEMISTRY METHOD 09/06/2024 12:[address] [facility] Comment:Calculation based on the??Chronic Kidney Disease Epidemiology Collaboration (CKD-EPI) equation refit??without adjustment for race. Blood Venous blood specimen / Unknown Venipuncture / Unknown 09/06/2024 10:37 AM EST 09/06/2024 11:32 AM EST Jeanne Hewitt MD LAB BLOOD ORDERABLES [facility] [address] [place] [address], * BUN (09/06/2024 10:37 AM EST) BUN 8 5 - 25 mg/dL LAB CHEMISTRY METHOD 09/06/2024 12:[address] [facility] Blood Venous blood specimen / Unknown Venipuncture / Unknown 09/06/2024 10:37 AM EST 09/06/2024 11:32 AM EST Jeanne Hewitt MD LAB BLOOD ORDERABLES [facility] [address] [place] [address], from Last 3 Months Advance Directives Documents on File Type Date Recorded Patient Medical Supply Technician Expl anation Health Care Decision (hx) 10/29/2022 [...] (hx) 09/24/2021 AD GONZALEZ DIRECTIVE Care Teams Beekeeper Relationship Specialty Start Date End Date Name, MD Ebenezer [address] [place] [address] PCP - General 11/27/22
--- OUTSIDE RECORDS SUMMARY | 2024-11-15 12:32 | XMS_ITS | Encounter Summary ---
Author Organization [employer] Address [address] [facility] [address] 7t [place] [address] Care Team Providers Care Power Electronics Research Engineer Name Role Phone Name, Ebenezer ROGERS Primary Care Provider [phone] Encounter Details Date Type Department Care Team (Late st Contact Info) Description 10/14/[address] [facility] ADULT DENTAL [address] [place] [address] Leandro Phillips, DMD [address] [place] [address] Social History Tobacco Use Types Packs/Day Years [...] Description 11/17/2024 10:30 AM EST Office Visit [facility] MEDICINE [address] [place] [address] Name, MD Ebenezer [address] [place] [address] documented as of this encounter Visit Diagnoses Not on filedocumented in this encounter Additional Health Concerns Assessment Noted Time PHQ-9 Depression Total Score: 10 023 8:48 AM EST documented as of this encounter Care Teams Power Electronics Research Engineer Relationship Specialty Start Date End Date Name, MD Ebenezer [address] [place] [address] PCP - General Family Medicine 06/07/22 [facility] 01/06/23 documented as of this encounter
--- OUTSIDE RECORDS SUMMARY | 2024-11-15 12:32 | XMS_ITS | Encounter Summary ---
Author Organization [employer] Address 75 [facility] 7t [place] [address] Care Team Providers Care Notched Blade Loader Name Role Phone Name, Ebenezer ROGERS Primary Care Provider [phone] Reason for Visit * Reason Onset Date Comments FYI 06/15/2024 Encounter Details Date Type Department Care Team ([facility] st Contact Info) Description 06/15/2024 Telephone [facility] MEDICINE [address] [place] [address] Name, MD Ebenezer [address] [place] [address] Social History Tobacco Use Types Packs/Day Years [...] - 06/15/2024 3:27 PM EDT Tc from [facility]) leaving an FYI for PCP in regards of pt being discharge for at home services due to pt starting outpatient Services on , Candi reports a nurse will still be going over to for Pt Catheter. documented in this encounter Plan of Treatment Upcoming Encounters Date Type Department Care Team (Late st Contact Info) Description 11/17/2024 10:30 AM EST Office Visit [facility] MEDICINE [address] [place] [address] Name, MD Ebenezer [address] [place] [address] documented as of this encounter Visit Diagnoses Not on filedocumented in this encounter Additional Health Concerns Assessment Noted Time PHQ-9 Depression Total Score: 10 023 8:48 AM EST documented as of this encounter Care Teams Notched Blade Loader Relationship Specialty Start Date End Date Name, MD Ebenezer [address] [place] [address] PCP - General Family Medicine 06/07/22 [employer] (Work) 01/06/23 documented as of this encounter
--- OUTSIDE RECORDS SUMMARY | 2024-11-15 12:32 | XMS_ITS | Encounter Summary ---
Author Organization [employer] Address [address] [facility] [address] [place] [address] Care Team Providers Care Municipal Services Manager Name Role Phone Name, Ebenezer ROGERS Primary Care Provider [phone] Reason for Visit * Reason Onset Date Comments Appointment Request 09/23/2023 Encounter Details Date Type Department Care Team ([facility] st Contact Info) Description 09/23/2023 Telephone [facility] [address] [place], [place] [id number] Name, MD Ebenezer [address] [place] [address] Appointment Request Social History Tobacco Use Types [...] @ 10:00 am Please contact pt @ [phone] documented in this encounter Plan of Treatment Upcoming Encounters Date Type Department Care Team (Late st Contact Info) Description 11/17/2024 10:30 AM EST Office Visit [facility] [address] [place] [id number] Name, MD Eebnezer [address] [place] [address] documented as of this encounter Visit Diagnoses Not on filedocumented in this encounter Additional Health Concerns Assessment Noted Time PHQ-9 Depression Total Score: 10 023 8:48 AM EST documented as of this encounter Care Teams Municipal Services Manager Relationship Specialty Start Date End Date Name, MD Ebenezer [address] [place] [id number] PCP - General Family Medicine 06/07/22 [employer] 01/06/23 documented as of this encounter
--- OUTSIDE RECORDS SUMMARY | 2024-11-15 12:32 | XMS_ITS | Encounter Summary ---
Author Organization [employer] Address [address] [facility] [address] [place] [address] Care Team Providers Care Hotel Attendant Name Role Phone Name, Ebenezer ROGERS Primary Care Provider [phone] Reason for Visit * Reason Onset Date Comments ER Follow-up 04/09/2024 Encounter Details Date Type Department Care Team ([facility] st Contact Info) Description 04/09/2024 Telephone [facility] [address] [place] [address] Name, MD Ebenezer [address] [place] [address] ER Follow-up Social History Tobacco Use Types [...] 4:39 PM EDT T/C to pt. Through [employer] id - [id number] for below message, pt. States he is doing better.Pt. Advised to finish entire course of antibiotics, pt. Also advised to call urologist office for follow up as advised by ED. Pt. Advised to give call to [facility] if any questions or concern. Advised to go to nearest ED in case of any new or worsening symptoms. Pt. Verbally greed and understood. * Telephone Encounter - Garrett Garcia - 04/09/2024 3:46 PM EDT Patient calling to report ED visit on : Date: 04/08 [address]: [facility] Seen for: UTI Patient advised will forward to team nurse for follow up documented in this encounter Plan of Treatment Upcoming Encounters Date Type Department Care Team (Late st Contact Info) Description 11/17/2024 10:30 AM EST Office Visit [facility] [address] [place] [address] Name, MD Ebenezer [address] [place] [address] documented as of this encounter Visit Diagnoses Not on filedocumented in this encounter Additional Health Concerns Assessment Noted Time PHQ-9 Depression Total Score: 10 023 8:48 AM EST documented as of this encounter Care Teams Hotel Attendant Relationship Specialty Start Date End Date Name, MD Ebenezer [address] [place] [address] PCP - General Family Medicine 06/07/22 [employer] 01/06/23 documented as of this encounter
--- NOTE | 2024-11-15 12:42 | ED.MALEGU ---
HPI - Male Genitourinary General Chief complaint: Urogenital-Male Stated complaint: ACC PULLED OUT SUPRAPUBIC CATH PER EMS Time Seen by Provider: 11/15/24 11:58 Source: patient, RN notes reviewed and old records reviewed Mode of arrival: EMS Limitations: no limitations History of Present Illness ED Provider: Leticia VILLELA Narrative: 39-year-old male with past medical history significant for neurogenic bladder followed by Dr. Cao presents for evaluation of ?suprapubic catheter came out. The patient reports that he accidentally pulled his catheter out at 10:00 a.m. this morning, a couple of hours prior to arrival. He has no pain, denies any fevers or chills. He reports that he has an appointment with Dr. Cao later this week He brought the catheter with him which is a 14 [place] catheter Related Data Home Medications ?Medication ?Instructions ?Recorded ?Confirmed sertraline 50 mg tablet 50 mg PO DAILY 02/22/24 10/21/24 clindamycin phosphate 1 % lotion 1 appl topical BID 09/10/24 10/21/24 cholecalciferol (vitamin D3) 50 50 mcg PO DAILY 10/11/24 10/21/24 mcg (2,000 unit) capsule (Vitamin D3) clotrimazole-betamethasone 1 1 appl topical BID 10/11/24 10/21/24 %-0.05 % topical cream cyclobenzaprine 10 mg tablet 10 mg PO TID 10/11/24 10/21/24 acetaminophen 500 mg tablet 500 mg PO Q6H PRN mild pain 10/21/24 10/21/24 prednisone 20 mg tablet 20 mg PO DAILY 10/21/24 10/21/24 Previous Rx's ?Medication ?Instructions ?Recorded syringe disposable, irrigation 60 #2 ea 01/06/24 mL ascorbic acid (vitamin C) 500 mg 500 mg PO BID 90 days #180 tabs 05/12/24 tablet (Vitamin C) catheter 20 Fr (Villatoro Catheter) #2 ea 08/19/24 catheterization tray (Villatoro #2 ea 08/19/24 Catheter Tray) urinary bag (Bardia Urinary #2 ea 08/19/24 Drainage Bag) urinary bag (Urinary Leg Bag) #4 ea 08/19/24 sulfamethoxazole 400 1 tab PO BEDTIME #10 tabs 10/26/24 mg-trimethoprim 80 mg tablet (Bactrim) sulfamethoxazole 800 1 tab PO Q12H #20 tabs 10/26/24 mg-trimethoprim 160 mg tablet (Bactrim DS) Allergies Allergy/AdvReac Type Severity Reaction Status Date / Time doxycycline Allergy Rash Verified 11/15/24 11:08 Review of Systems Constitutional: Constitutional: Denies chills and Denies fever(s) Gastrointestinal: Gastrointestinal: Denies abdominal pain PMFSH Past Medical History 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 Microcytic anemia Multiple sclerosis Headache Surgical History H/O hernia repair Family History Family History Other No family history of coronary artery disease Social History Social History Household Members: Family Household Members Other:: parents Housing: House 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 have visiting nurse or other home services: Yes Unable to assess alcohol history related to: Unknown Alcohol intake: never Patient Tobacco Use Status: Former Tobacco user Tobacco use type: Cigarette Cigarettes Per Day: 0.25 Smoked in Last 30 Days: No Use of substances other than those prescribed or required for medical reasons: No Substance Use Type: Marijuana Advance Directives: Yes Advance Directives on File: Yes Advance Directives Date on File: 08/21/22 Do you have a plan to hurt others: No Plan service: No Current occupational status: disabled Physical Exam Vital Signs: Vital Signs: Last Vital Signs Temp 97.5 F 11/15/24 11:07 Pulse 102 H 11/15/24 11:07 Resp 16 11/15/24 11:07 BP 140/85 H 11/15/24 11:07 Pulse Ox 96 11/15/24 11:07 O2 Del Method Room Air 11/15/24 11:07 BMI result Body Mass Index 25.8 Const: General: healthy appearing, comfortable, no acute distress, alert and awake Nutritional Appearance: well nourished Orientation/consciousness: patient oriented x3 HEENT: Head: Yes normocephalic and Yes atraumatic Neck: Neck: Yes full ROM Resp: Effort & Inspection: normal respiratory effort, able to speak in complete sentences and not labored : Other: Suprapubic orifice present. No surrounding erythema Skin: General skin exam: elasticity normal Neuro: General: patient oriented x3 Cranial nerves: Yes Bilaterally intact EOM present Cognition (Neuro): normal cognition Medical Decision Making Medical Decision Making MDM Narrative: 39-year-old male presents for evaluation of suprapubic catheter change. I attempted to insert an 18 [place] catheter after reading the patient's previous notes. Dr. Cao was also in the department, he suggested trying an 18 [place] catheter if I was able to fit it. I was unsuccessful on 2 occasions. Was able to inserted a 14 [place] catheter which is what the patient presented with. There was good urine return Differential Diagnosis Differential Diagnoses: The differential diagnosis associated with the presentation includes Neurogenic bladder UTI Suprapubic catheter removal Catheter malfunction Discharge Plan Discharge Clinical Impression: Neurogenic urinary bladder disorder Patient Disposition: Home, Self-Care Instructions: How to Care for Your Suprapubic Catheter (DC) Additional Instructions: Your suprapubic catheter was changed today. We are unable to fit the 18 [place] catheter A 14 [place] catheter was placed. Follow-up with Urology at your next scheduled appointment Return for new or worsening symptoms Prescriptions: No Action (DME) syringe disposable, irrigation 60 mL syringe See Rx Instructions .Route Qty: 2 5RF Rx Instructions: As directed 2 per month ascorbic acid (vitamin C) [Vitamin C] 500 mg tablet 500 mg PO BID 90 Days Qty: 180 1RF (DME) Villatoro Catheter Tray Tray See Rx Instructions .Route Qty: 2 5RF Rx Instructions: As directed 2 per month (DME) Bardia Urinary Drainage Bag Misc See Rx Instructions .Route Qty: 2 5RF Rx Instructions: As directed, 2 per month (DME) Urinary Leg Bag Misc See Rx Instructions .Route Qty: 4 5RF Rx Instructions: As directed, 4 per month. (DME) Villatoro Catheter 20 Fr misc See Rx Instructions .Route Qty: 2 5RF Rx Instructions: As directed, 2 per month. sertraline 50 mg tablet 50 mg PO DAILY clindamycin phosphate 1 % lotion 1 appl topical BID cyclobenzaprine 10 mg tablet 10 mg PO TID clotrimazole-betamethasone 1-0.05 % cream 1 appl topical BID cholecalciferol (vitamin D3) [Vitamin D3] 50 mcg (2,000 unit) capsule 50 mcg PO DAILY prednisone 20 mg tablet 20 mg PO DAILY acetaminophen 500 mg tablet 500 mg PO Q6H PRN (Reason: mild pain) sulfamethoxazole-trimethoprim [Bactrim DS] 800-160 mg tablet 1 tab PO Q12H Qty: 20 0RF sulfamethoxazole-trimethoprim [Bactrim] 400-80 mg tablet 1 tab PO BEDTIME Qty: 10 0RF Rx Instructions: start on 11/06/24. Referrals: Miki Cao MD [Physician] - (suprapubic catheter) Print Language: Thai
[2024-11-15 14:58] VITALS: BP 129/92; PULSE 100; RESP 18
--- NOTE | 2024-11-15 15:00 | PC.NURSE ---
Pt repositioned, fresh olivia, suprapubic cath reinserted successfully by Brent SAHU. 14F 5 cc balloon.
[2024-11-15 18:01] VITALS: BP 146/86; PULSE 108; RESP 16; TEMP 36.6; O2SAT 98
== END 2024-11-15 18:05 | disposition home or self-care (01) ==
PROVIDERS: Emergency Provider Emergency Medicine; PCP Internal Medicine Geriatric Medicine
DX: N31.9 Neuromuscular dysfunction of bladder, unspecified (principal)
CPT/HCPCS: 99284

== ENCOUNTER 2024-11-18 18:25 | Inpatient (IN) | payer OTHER, SELFPAY ==
[2024-11-18] VITALS (8 sets, daily range): BP systolic 129–149; BP diastolic 83–104; PULSE 90–152; RESP 14–24; TEMP 37.2–40.2; O2SAT 94–97; BMI 27.3
--- NOTE | 2024-11-18 | ECG_ITS ---
Test Reason : TACHYCARDIA Blood Pressure : */* mmHG Vent. Rate : 142 BPM Atrial Rate : 142 BPM P-R Int : 146 ms QRS Dur : 70 ms QT Int : 354 ms P-R-T Axes : 75 -48 77 degrees QTcB Int : 544 ms Sinus tachycardia Left anterior fascicular block Abnormal ECG When compared with ECG of 20-Oct-2024 19:18, Sinus rhythm has replaced Junctional rhythm Left anterior fascicular block is now Present Referred By: Rosibel Spear Electronically Signed By: Jim Wong
--- NOTE | ~2024-11-18 | CT_ITS ---
CLINICAL HISTORY: AMS CT head without contrast Comparison: CT/REG/SR - CT HEAD FOR STROKE - 03/07/24 18:43 EDT Findings: No intra-axial mass, midline shift, hydrocephalus, or acute hemorrhage. No significant atrophy-like change or white matter disease. Tiny retention cysts right maxillary sinus. The orbits are within normal limits. No skull fracture. IMPRESSION: 1. No acute intracranial findings. This document has been electronically signed by: Jett Landaverde MD on 11/19/2024 20:14:32
--- NOTE | ~2024-11-18 | CT_ITS ---
CLINICAL HISTORY: fever, urosepsis, ?abscess CT abdomen and pelvis with contrast Comparison: CT/SR - CT ABDOMEN PELVIS W IV CON - 09/07/24 10:14 EST Findings: Diffuse esophageal mural thickening, nonspecific. Probable small hiatal hernia. Please see same day CT chest report. Gynecomastia. Hepatomegaly. Distended gallbladder. Nonobstructive 2 mm calculus in the left upper pole kidney. Large colonic stool burden. No bowel obstruction. Foci of soft tissue gas along the right anterior abdominal wall, nonspecific. Normal appendix. Mild prostatomegaly. Scattered colonic diverticulosis without diverticulitis or colitis. Suprapubic Villatoro catheter in place with bladder decompression, mural thickening and pericystic stranding. Osteopenia with diffuse multilevel spondylosis. Similar compression deformity at L3. Similar heterogeneous sclerosis in the bilateral femoral heads can be seen with AVN. IMPRESSION: 1. Suprapubic Villatoro catheter in place with possible cystitis. 2. Nonobstructive 2 mm calculus in the left upper pole kidney. This document has been electronically signed by: Jett Landaverde MD on 11/19/2024 19:59:20
--- NOTE | ~2024-11-18 | CT_ITS ---
CLINICAL HISTORY: r o PE CT angiography chest with contrast. 3D Postprocessing. Comparison: CT/SR - CT CHEST WO IV CON - 11/19/24 19:04 EST Findings: No acute pulmonary embolism evident. Normal caliber pulmonary trunk. Normal caliber thoracic aorta without stenosis or dissection. Patent supra-aortic vessels. Basilar airspace opacities more confluence in both lower lobes [id number] suggesting progressive pneumonia or aspiration if clinically appropriate. Changes in the base of the left upper lobe are slightly improved. Layering of tracheal secretions similar to prior. Mild emphysema. No pleural effusion or pneumothorax. Thoracic inlet intact. No thyroid nodules. Shotty mediastinal lymph nodes stable to prior. Esophagus within normal limits. No hiatal hernia. Similar gallbladder distention with layering of dense bile and/or mild vicarious contrast excretion. Otherwise no acute process evident in the upper abdomen. Stable mild T7 compression fracture and hemangioma T9. Mild gynecomastia. Impression: No acute pulmonary embolism or aortic dissection. Progressive bibasilar airspace disease [id number] suggesting progressive bilateral pneumonia and/or aspiration. No other changes. This document has been electronically signed by: Syed Maldonado MD on 11/21/2024 12:50:47
--- NOTE | ~2024-11-18 | MR_ITS ---
CLINICAL HISTORY: paraplegia unknown dx , involuntary motion on images, best obtainable MR cervical spine with and without gadolinium Comparison: 01/21/2022 Findings: Normal vertebral body alignment. No significant degenerative change. No acute fractures or pathologic bone lesions. There is severe spinal cord atrophy with diffuse abnormal T2 signal on the STIR sequence. No definite focal postcontrast enhancement however given the severity of the atrophy evaluation is somewhat limited. There is also atrophy involving the cerebellum. 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 Evaluation is limited for focal lesions given the profound atrophy. There is also atrophy involving the posterior fossa. Again findings are nonspecific but considerations could include severe advanced MS, ALS, remote vascular injury or alternate progressive demyelinating process. When compared to the 2021 study there has been significant progression. This document has been electronically signed by: Jhon Hernandez MD on 11/23/2024 18:54:05
--- NOTE | ~2024-11-18 | MR_ITS ---
CLINICAL HISTORY: paraplegia unknown dx, involuntary motion on images, best obtainable MR Brain with and without gadolinium Comparison: 11/01/2021 Findings: No restricted diffusion. No intracranial mass or hemorrhage. No midline shift. No hydrocephalus. Vascular flow voids are intact. Diffuse volume loss noted. Volume loss is most pronounced within the posterior fossa. There is confluent T2 signal prolongation involving the brainstem and cerebellar white matter. The orbits are unremarkable. The sinuses and mastoid air cells are clear. No focal bone lesion. No abnormal postcontrast enhancement. IMPRESSION: No abnormal postcontrast enhancement. 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 Volume loss as detailed, also progressive. This document has been electronically signed by: Jhon Hernandez MD on 11/23/2024 18:54:40
--- NOTE | ~2024-11-18 | XR_ITS ---
CLINICAL HISTORY: sepsis 1 view chest x-ray Comparison: CR/SR - XR CHEST 1V - 10/21/24 15:51 EST Findings: Left lower lobe patchy opacities/atelectasis. Possible tiny granulomas in the right upper lung more conspicuous from prior. No significant pleural effusion or pneumothorax. Heart size is normal. No acute fracture. IMPRESSION: Left lower lobe patchy opacities/atelectasis. This document has been electronically signed by: Jett Landaverde MD on 11/18/2024 21:27:31
--- NOTE | ~2024-11-18 | FL_ITS ---
EXAMINATION: MODIFIED BARIUM SWALLOW CLINICAL INFORMATION: Dysphagia COMPARISON: None TECHNIQUE: Modified barium swallow was performed under lateral fluoroscopy with patient in standing position. Barium mixed with solids and liquids of different consistencies was administered by the speech pathologist. Examination was recorded in the fluoroscopy suite. FINDINGS: Aspiration was observed with multiple consistencies of liquid barium. The procedure was then terminated by request of the speech therapist. FLUOROSCOPY TIME: 2 minutes 4 seconds Number of Spot Images: N/A DOSE AREA PRODUCT: 1006 uGy-m2 (microgray-meter squared) FL/FL Modified Barium Swallow IMPRESSION: 1. Aspiration with multiple consistencies of liquid barium. Refer to the speech therapy report for further clarification This procedure was performed by Hong Fernandes PA-C, and supervised by Dr. Mcgrath Electronically signed by: Dusty Mcgrath MD 11/22/2024 03:54 PM [facility] [place]
--- NOTE | ~2024-11-18 | MR_ITS ---
CLINICAL HISTORY: paraplegia unknown dx, involuntary motion on images, best obtainable MR thoracic spine with and without gadolinium Comparison: None Findings: Normal alignment. No acute fracture or pathologic bone lesion. Hemangioma noted within T4. The thoracic cord is extremely atrophic, diffusely with somewhat diffuse white matter T2 signal prolongation. The conus terminates at L1. There is mild chronic height loss along the superior endplate of T7. No signal abnormality. Paraspinal musculature is unremarkable. No central canal stenosis or neural foraminal narrowing. Impression: Severe diffuse spinal cord atrophy and faint diffuse T2 signal prolongation. Findings are nonspecific but considerations would include ALS, advanced MS, prior trauma with devascularization. Correlation with patient history and any outside imaging would be recommended. This document has been electronically signed by: Jhon Hernandez MD on 11/23/2024 18:42:17
--- NOTE | ~2024-11-18 | FL_ITS ---
EXAMINATION: XR LUMBAR PUNCTURE CLINICAL INFORMATION: unclear diagnois of quadreparesis, abnormal MRIs. COMPARISON: No prior available. Correlation made with CT abdomen and pelvis 11/19/2024. PROCEDURE: Informed consent was obtained by the patient's proxy. An ore miner was present for the procedure and to aid in communication. The patient was placed prone on the fluoroscopy table. A suitable site overlying the right L3-4 interlaminar space was marked, prepped and draped in sterile fashion. Skin and subcutaneous tissues were anesthetized with 1% lidocaine. Under direct fluoroscopic guidance, a 20-gauge quincke spinal needle was advanced into the interlaminar space, and clear CSF was noted at the needle hub. Approximately 6 mL of clear CSF was obtained passively, and saved for laboratory analysis. There were no immediate complications. The patient tolerated the procedure well. FLUOROSCOPY TIME: 13 seconds DOSE AREA PRODUCT: 34.2 dGy-m2 FL/FL guided lumbar puncture LP IMPRESSION: 1. Uneventful fluoroscopic guided L4-5 lumbar puncture. 6 mL of clear CSF obtained and sent for laboratory analysis. Electronically signed by: Dusty Mcgrath MD 11/25/2024 03:46 PM [facility] [place]
--- NOTE | ~2024-11-18 | CT_ITS ---
CLINICAL HISTORY: fever, pneumonia CT chest without contrast Comparison: None Findings: The heart size is normal. Mild distal esophageal mural thickening, nonspecific. Mildly prominent mediastinal nodes may be reactive. Gynecomastia. Ill-defined bilateral tree-in-bud nodular/patchy consolidations in the dependent lungs, worse in the left lower lobe. No significant pleural effusion or pneumothorax. The visualized upper abdomen is unremarkable. Please see same day CT abdomen pelvis report. Osteopenia. Multilevel Schmorl's nodes. Vertebral body hemangioma T4. IMPRESSION: Ill-defined bilateral tree-in-bud nodular/patchy consolidations in the dependent lungs, worse in the left lower lobe. Findings concerning for endobronchial pneumonia or aspiration. This document has been electronically signed by: Jett Landaverde MD on 11/19/2024 20:00:47
[2024-11-18] MEDS: 0.9 % Sodium Chloride 2,517.45 ML 2517.45 ML IV (19:29)
[2024-11-18] MEDS: Acetaminophen 325 MG TABLET 975 MG PO (19:34)
[2024-11-18] MEDS: cefTRIAXone sodium 1 GM VIAL IVPUSH (19:34)
--- NOTE | 2024-11-18 19:40 | ED.GENADULT ---
HPI - General Adult General Chief complaint: General Medical Stated complaint: fever, dehydration,urine in catheter dark in color Time Seen by Provider: 11/18/24 18:58 Source: patient, RN notes reviewed and old records reviewed Mode of arrival: EMS Limitations: no limitations History of Present Illness ED Provider: Leticia HPI narrative: 39-year-old male with past medical history significant for neurogenic bladder followed by Dr. Cao presents for evaluation of fever Patient reports weakness and fever starting this morning. He has had decreased appetite. Denies any significant pain. He does endorse follow up with spasms in his right leg He was seen here by myself 3 days ago as he had accidentally pulled out his suprapubic catheter His suprapubic catheter was replaced. He had a 14 Taiwanese catheter placed that appears to be draining well. He denies any headache, chest pain. He does have a chronic cough that he states is unchanged from baseline. Denies any abdominal pain Related Data Home Medications ?Medication ?Instructions ?Recorded ?Confirmed sertraline 50 mg tablet 50 mg PO DAILY 02/22/24 10/21/24 clindamycin phosphate 1 % lotion 1 appl topical BID 09/10/24 10/21/24 cholecalciferol (vitamin D3) 50 50 mcg PO DAILY 10/11/24 10/21/24 mcg (2,000 unit) capsule (Vitamin D3) clotrimazole-betamethasone 1 1 appl topical BID 10/11/24 10/21/24 %-0.05 % topical cream cyclobenzaprine 10 mg tablet 10 mg PO TID 10/11/24 10/21/24 acetaminophen 500 mg tablet 500 mg PO Q6H PRN mild pain 10/21/24 10/21/24 prednisone 20 mg tablet 20 mg PO DAILY 10/21/24 10/21/24 Previous Rx's ?Medication ?Instructions ?Recorded syringe disposable, irrigation 60 #2 ea 01/06/24 mL ascorbic acid (vitamin C) 500 mg 500 mg PO BID 90 days #180 tabs 05/12/24 tablet (Vitamin C) catheter 20 Fr (Villatoro Catheter) #2 ea 08/19/24 catheterization tray (Villatoro #2 ea 08/19/24 Catheter Tray) urinary bag (Bardia Urinary #2 ea 08/19/24 Drainage Bag) urinary bag (Urinary Leg Bag) #4 ea 08/19/24 sulfamethoxazole 400 1 tab PO BEDTIME #10 tabs 10/26/24 mg-trimethoprim 80 mg tablet (Bactrim) sulfamethoxazole 800 1 tab PO Q12H #20 tabs 10/26/24 mg-trimethoprim 160 mg tablet (Bactrim DS) Allergies Allergy/AdvReac Type Severity Reaction Status Date / Time doxycycline Allergy Rash Verified 11/18/24 18:53 Review of Systems Constitutional: Constitutional: Reports body ache(s), Reports chills, Reports fever(s), Reports malaise, Reports poor appetite and Reports weakness Eyes: Eyes: Denies blurry vision ENT: Denies vertigo and Denies dizziness Cardiovascular: Cardiovascular: Denies chest pain and Denies dyspnea Respiratory: Respiratory: Reports cough and Denies dyspnea Gastrointestinal: Gastrointestinal: Denies abdominal pain, Denies nausea and Denies vomiting Musculoskeletal: Musculoskeletal: Denies back pain Integumentary/Breasts: Skin/Breast: Denies rash Neurologic: Denies vertigo, Denies dizziness and Reports weakness PMFSH Past Medical History 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 Microcytic anemia Multiple sclerosis Headache Surgical History H/O hernia repair Family History Family History Other No family history of coronary artery disease Social History Social History Household Members: Family Household Members Other:: parents Housing: House 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 have visiting nurse or other home services: Yes Unable to assess alcohol history related to: Unknown Alcohol intake: never Patient Tobacco Use Status: Former Tobacco user Tobacco use type: Cigarette Cigarettes Per Day: 0.25 Substance Use Type: Marijuana Advance Directives: Yes Advance Directives on File: Yes Advance Directives Date on File: 08/21/22 Do you have a plan to hurt others: No Plan service: No Current occupational status: disabled Physical Exam ED Vital Signs: Vital Signs - 24 hr 11/18/24 18:51 11/18/24 19:58 11/18/24 20:29 Temperature 104.4 F H 102.9 F H 101.1 F H Pulse Rate 147 H 130 H 116 H Respiratory Rate 14 20 24 H Blood Pressure 144/104 H 140/96 H 136/88 Pulse Oximetry 96 95 97 Oxygen Delivery Method Room Air Room Air Room Air 11/18/24 20:41 Temperature 100.8 F H Pulse Rate Respiratory Rate Blood Pressure Pulse Oximetry Oxygen Delivery Method BMI result Body Mass Index 27.3 Const General: no acute distress, alert, awake, diaphoretic and ill appearing Nutritional Appearance: well nourished Orientation/consciousness: patient oriented x3 HENMT Head: Yes normocephalic and Yes atraumatic Eyes Eyelids: Yes eyelids normal Conjunctivae: conjunctivae normal Sclerae: sclerae normal Corneas: corneas normal Pupils: Equal, round and reactive pupils present EOM: EOMs intact bilaterally Neck Neck: Yes full ROM Resp Effort & Inspection: normal respiratory effort, able to speak in complete sentences, no audible wheezes and not labored Auscultation: clear to auscultation bilaterally Cardio Rate: regular rate Rhythm: regular rhythm GI Inspection: No distended Palpation (GI): Soft to palpation, not firm, nontender, no guarding and not rigid Skin General skin exam: elasticity normal Neuro General: patient oriented x3 Cranial nerves: Yes CN's II-XII intact bilaterally, Yes Equal, round and reactive pupils present and Yes Bilaterally intact EOM present Cognition (Neuro): normal cognition Course Reevaluation(s) Reevaluation #1: Sepsis focused exam performed Time: 19:59 Reevaluation #2: Patient re-evaluated, his vital signs are improving, his temperature is down to 100.8, his heart rate is down to 112, still in sinus. He reports feeling much better. Time: 20:45 Medications Administered Discontinued Medications Generic Name Dose Route Start Last Admin Trade Name Freq PRN Reason Stop Dose Admin Acetaminophen 975 mg 11/18/24 19:19 11/18/24 19:34 Acetaminophen 325 Mg Tablet PO 11/18/24 19:20 975 mg ONCE ONE Administration Ceftriaxone Sodium 1 gm 11/18/24 19:19 11/18/24 19:34 Ceftriaxone Sodium 1 Gm Vial IVPUSH 11/18/24 19:20 1 gm ONCE ONE Administration Sodium Chloride 2,517.45 mls @ 2,517.45 mls/hr 11/18/24 19:19 11/18/24 19:29 Ns 30 ml/kg infuse over 1 hr (2517.45 ml) 11/18/24 20:18 2,517.45 mls/hr IV Administration .Q1H STA Ketorolac Tromethamine 15 mg 11/18/24 19:40 11/18/24 19:47 Ketorolac Tromethamine 15 Mg/Ml Vial IVPUSH 11/18/24 19:41 15 mg ONCE ONE Administration Medical Decision Making Medical Decision Making MDM Narrative: 39-year-old male with past medical history significant for neurogenic bladder with a chronic suprapubic catheter presents for evaluation of fever. I change his catheter 3 days ago. I was unable to get an 18 Taiwanese catheter at the request of Urology but I was able to get a 14 Taiwanese catheter which the patient presents with without difficulty. Given that he has a chronic suprapubic catheter, a UTI as the most likely cause of his fever. I ordered ceftriaxone 1 g IV as well as IV fluids 30 cc per kilos. I ordered a acetaminophen for his temperature of a 104.4?. Plan for labs, chest x-ray, viral swabs and further workup as indicated. Differential Diagnosis Differential Diagnoses: The differential diagnosis associated with the presentation includes Urosepsis UTI Pneumonia Influenza COVID-19 Admission/Observation Consideration of admission/observation: Escalation of care including admission/observation considered Discharge Plan Discharge Clinical Impression: Sepsis Patient Disposition: Still a Patient Prescriptions: No Action (DME) syringe disposable, irrigation 60 mL syringe See Rx Instructions .Route Qty: 2 5RF Rx Instructions: As directed 2 per month ascorbic acid (vitamin C) [Vitamin C] 500 mg tablet 500 mg PO BID 90 Days Qty: 180 1RF (DME) Villatoro Catheter Tray Tray See Rx Instructions .Route Qty: 2 5RF Rx Instructions: As directed 2 per month (DME) Bardia Urinary Drainage Bag Misc See Rx Instructions .Route Qty: 2 5RF Rx Instructions: As directed, 2 per month (DME) Urinary Leg Bag Misc See Rx Instructions .Route Qty: 4 5RF Rx Instructions: As directed, 4 per month. (DME) Villatoro Catheter 20 Fr misc See Rx Instructions .Route Qty: 2 5RF Rx Instructions: As directed, 2 per month. sertraline 50 mg tablet 50 mg PO DAILY clindamycin phosphate 1 % lotion 1 appl topical BID cyclobenzaprine 10 mg tablet 10 mg PO TID clotrimazole-betamethasone 1-0.05 % cream 1 appl topical BID cholecalciferol (vitamin D3) [Vitamin D3] 50 mcg (2,000 unit) capsule 50 mcg PO DAILY prednisone 20 mg tablet 20 mg PO DAILY acetaminophen 500 mg tablet 500 mg PO Q6H PRN (Reason: mild pain) sulfamethoxazole-trimethoprim [Bactrim DS] 800-160 mg tablet 1 tab PO Q12H Qty: 20 0RF sulfamethoxazole-trimethoprim [Bactrim] 400-80 mg tablet 1 tab PO BEDTIME Qty: 10 0RF Rx Instructions: start on 11/06/24. Print Language: Tamazight
[2024-11-18] MEDS: Ketorolac Tromethamine 15 MG/ML VIAL IVPUSH (19:47)
--- NOTE | 2024-11-18 20:31 | PC.NURSE ---
2024 awaiting lab results from labs, on downtime.
[2024-11-18 21:31] LABS: Appearance Urine Cloudy; Color Urine Yellow; Glucose Urine UA Negative (Negative); Leukocyte Esterase Urine Small (1+) (Negative); Nitrite Urine Negative (Negative); PH 6.5 (5.0-9.0); Specific Gravity - Urine >= 1.030 (1.005-1.025); UMIC TRIGGER UACC YES; Urine Blood Large (3+) (Negative); Urine Ketones >=80 mg/dL (Negative); Urine Protein 300 (3+) mg/dL (Neg-Trace)
[2024-11-18 21:41] LABS: Influenza A PCR NEGATIVE (Negative); Influenza B PCR NEGATIVE (Negative); Resp Syncy Virus RNA Qual PCR NEGATIVE (Negative); SARS COV2 PCR INHOUSE NEGATIVE (Negative)
[2024-11-18 21:50] LABS: UACC Culture Trigger YES; WBC Urine >50 /HPF (0-5)
[2024-11-18 21:51] LABS: Bacteria Urine None Seen (None Seen); Squamous Epithelial Cell Urine 0-2 /HPF (0-2); WBC Clumps Urine Present; White Blood Cell Casts Urine Present
[2024-11-18 21:57] LABS: Basophils Absolute Auto 0.1 X10*3/uL (0.0-0.2); Basophils Percent Auto 0.3 % (0-2); Eosinophils Percent Auto 0.2 % (0-4); Hematocrit 40.7 % (42.0-52.0); Hemoglobin 12.9 g/dl (14.0-18.0); Imm Gran Abs Auto 0.08 X10*3/uL (0.00-0.03); Imm Gran Pct Auto 0.4 % (0.0-0.4); Lymphocytes Absolute Auto 0.8 X10*3/uL (1.2-4.9); MANUAL DIFF FLAG SCAN; Mean Corpuscular HGB Conc 31.7 g/dl (31.0-36.0); Mean Corpuscular Hemoglobin 24.1 pg (27.0-33.0); Mean Corpuscular Volume 75.9 fL (80.0-98.0); Mean Platelet Volume 12.4 fL (9.4-12.4); Monocytes Percent Auto 10.8 % (2-11); Neutrophils Absolute Auto 15.8 x10*3/uL (2.0-8.3); Neutrophils Percent Auto 84.3 % (45-73); Platelet Count 339 X10*3/uL (160-400); Red Blood Count 5.36 X10*6/uL (4.60-5.80); Red Cell Distribution Width 16.9 % (11.0-16.0); SCAN SMEAR FLAG 1; White Blood Count 18.7 X10*3/uL (4.8-10.8)
[2024-11-18 22:19] LABS: Troponin-I High Sensitivity 3.6 ng/L (<3.5-35.0)
[2024-11-18 22:20] LABS: Lactic Acid 1.6 mmol/L (0.5-2.0)
[2024-11-18 22:30] LABS: Alanine Aminotransferase 9 U/L (0-40); Albumin Level 4.1 g/dL (3.5-5.0); Alkaline Phosphatase 72 U/L (39-117); Anion Gap 16 (12-20); Aspartate Amino Transferase 19 U/L (5-37); Bilirubin Total 0.4 mg/dL (0.0-1.0); Blood Urea Nitrogen 8 mg/dL (9-16); Calcium 9.9 mg/dL (8.4-10.2); Carbon Dioxide 27 mmol/L (22-29); Chloride 99 mmol/L (96-108); Creatinine Clr Calc Pharmacy 160.9; Estimated Glomerular Filt Rate > 60; Glucose Random 98 mg/dL (60-115); Magnesium 1.9 mg/dL (1.6-2.6); Potassium 3.6 mmol/L (3.3-5.1); Sodium 138 mmol/L (135-145); Total Protein 8.1 g/dL (6.5-8.0)
[2024-11-18 23:22] LABS: SLIDE REVIEW VERIFIED
--- NOTE | 2024-11-18 23:34 | P.HPHOSP_ITS ---
History of Present Illness Date of Service: 11/18/24 Attending physician on admission: Terell Walker Chief Complaint: Generalized weakness, poor oral intake and subjective fevers Patient is a 39 year old male with underlying history of multiple sclerosis, neurogenic bladder (followed by Dr. Cao), recurrent UTI who presents to the ER from home complaining of generalized weakness, poor appetite with decreased oral intake and fevers and is found to have sepsis and UTI. He was seen in the ER 3 days ago after he accidentally pulled out his suprapubic catheter which was replaced and is currently draining well. He was sleepy when I saw him and did not give much additional information. Initial blood work done revealed a leucocytosis of 18.7 K with a left shift and a low grade fever of 99.7 F. Urinalysis revealed elevated specific gravity, small leukocyte esterase and >50 WBC/HPF but with no bacteria. An assessment of Urosepsis was made and he was started on IV Ceftriaxone and admission requested. 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 Microcytic anemia Multiple sclerosis Headache Family History Other No family history of coronary artery disease Surgical History H/O hernia repair Social History Household Members: Family Household Members Other:: parents Housing: House 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 have visiting nurse or other home services: Yes Unable to assess alcohol history related to: Unknown Alcohol intake: never Patient Tobacco Use Status: Former Tobacco user Tobacco use type: Cigarette Cigarettes Per Day: 0.25 Smoked in Last 30 Days: No Use of substances other than those prescribed or required for medical reasons: No Substance Use Type: Marijuana Advance Directives: Yes Advance Directives on File: Yes Advance Directives Date on File: 08/21/22 Do you have a plan to hurt others: No Plan service: No Current occupational status: disabled Meds Allergies Allergy/AdvReac Type Severity Reaction Status Date / Time doxycycline Allergy Rash Verified 11/18/24 18:53 Home Medications ?Medication ?Instructions ?Recorded ?Confirmed ?Last Taken ?Type sertraline 50 mg tablet 50 mg PO DAILY 02/22/24 10/21/24 10/10/24 History clindamycin phosphate 1 % lotion 1 appl topical BID 09/10/24 10/21/24 10/10/24 History cholecalciferol (vitamin D3) 50 50 mcg PO DAILY 10/11/24 10/21/24 10/10/24 History mcg (2,000 unit) capsule (Vitamin D3) clotrimazole-betamethasone 1 1 appl topical BID 10/11/24 10/21/24 10/10/24 History %-0.05 % topical cream cyclobenzaprine 10 mg tablet 10 mg PO TID 10/11/24 10/21/24 10/10/24 History acetaminophen 500 mg tablet 500 mg PO Q6H PRN mild pain 10/21/24 10/21/24 Unknown History prednisone 20 mg tablet 20 mg PO DAILY 10/21/24 10/21/24 Unknown History Physical Exam 2 Vital Signs and Narrative: Vital Signs: Last Vital Signs Temp 99.0 F 11/18/24 23:20 Pulse 90 11/18/24 23:20 Resp 20 11/18/24 23:20 BP 137/94 H 11/18/24 23:20 Pulse Ox 94 11/18/24 23:20 O2 Del Method Room Air 11/18/24 23:20 BMI result Body Mass Index 27.3 General: Well nourished. Awake and alert. In no obvious respiratory distress. Psychiatric: Sleepy and not able to cooperate with exam. HEENT: Normocephalic, atraumatic. No pallor or jaundice. Moist oral mucus membranes. Persistent [place] sign Neck: Supple. No JVD Lungs: Clear to auscultation bilaterally. No rales, rhonchi or wheezes Heart: RRR. Normal s1/s2. No murmurs, rubs or gallops. No peripheral edema. Abdomen: Scaphoid, Soft, non-tender. Normoactive bowel sounds. No visceromegaly. Noted with suprapubic catheter Genitourinary: Normal external male genitalia Back/Spine/Pelvis: Deferred Skin: Warm, dry, well perfused. Normal turgor. No mottling. Normal capillary refill (< 2 seconds). Neurologic: Sleepy. Minimally interactive. Awake and alert. Intact speech & cognition. Normal gait & balance. CN II-XII grossly normal. Extremities: Normal muscle bulk, tone and power. No obvious deformities. No peripheral edema. Good peripheral pulses. Results Labs 11/18/24 19:08 11/18/24 19:08 Labs: Laboratory Results - last 24 hr 11/18/24 11/18/24 11/18/24 19:05 19:08 20:00 MCV 75.9 L MCH 24.1 L MCHC 31.7 RDW 16.9 H Plt Count 339 D MPV 12.4 Immature Gran % (Auto) 0.4 Neut % (Auto) 84.3 H Lymph % (Auto) 4.0 L [place] % (Auto) 10.8 Eos % (Auto) 0.2 Baso % (Auto) 0.3 Lymph # (Auto) 0.8 L [place] # (Auto) 2.0 H Eos # (Auto) 0.0 Baso # (Auto) 0.1 Abs Immat Gran (auto) 0.08 H Absolute Neuts (auto) 15.8 H Absolute Nucleated RBC 0.000 Nucleated RBC % (auto) 0.0 Smear Tech's Comments VERIFIED Hold Purple Top SEE NOTE Anion Gap 16 Estim Creat Clear Calc 160.9 Estimated GFR > 60 Random Glucose 98 Lactic Acid 1.6 Calcium 9.9 D Magnesium 1.9 Total Bilirubin 0.4 AST 19 ALT 9 Alkaline Phosphatase 72 Troponin I High Sens 3.6 Total Protein 8.1 H Albumin 4.1 Urine Color Yellow Urine Appearance Cloudy Urine pH 6.5 Ur Specific [place] >= 1.030 H Urine Protein 300 (3+) H Urine Glucose (UA) Negative Urine Ketones >=80 Urine Blood Large (3+) H Urine Nitrite Negative Ur Leukocyte Esterase Small (1+) H Urine RBC 11-20 H Urine WBC >50 Urine WBC Clumps Present Ur Squamous Epith Cells 0-2 Urine Bacteria None Seen Hyaline Casts 3-5 WBC Casts Present Urine Yeast Present Influenza Type A (PCR) NEGATIVE Influenza Type B (PCR) NEGATIVE RSV RNA Qual (PCR) NEGATIVE SARS-CoV-2 RNA (RT-PCR) NEGATIVE Imaging Radiologist's Impressions: Chest x-ray IMPRESSION: Left lower lobe patchy opacities/atelectasis. 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 and chronic suprapubic catheter, bed-bound, history of recurrent urinary tract infections, mood disorder # Sepsis - he meets criteria for sepsis with tachycardia and leukocytosis in setting of complicated UTI - however with normal Lactic acid and BP - has a history of Enterococcus and Pseudomonas on review of previous urine cultures - received IV Ceftriaxone while in the ED which is not adequate coverage - will switch to IV Cefepime - follow up on urine cultures # Mood Disorder - resume Sertraline # Neuromyelitis optica spectrum disorder - he has been on cyclobenzaprine and baclofen which I will resume # Dysphagia - evaluated by [employer] during previous hospitalizations - recommended NDD2 foods - adopt same diet during this hospitalization Quality VTE VTE Risk Level:: Medical - moderate - high VTE Device Contraindication: Treatment Not Indicated VTE Drug Contraindication: N/A - Med Ordered
[2024-11-19] VITALS (11 sets, daily range): BP systolic 112–164; BP diastolic 36–101; PULSE 96–137; RESP 17–26; TEMP 36.1–38.4; O2SAT 92–100
--- NOTE | 2024-11-19 | PC.NURSE ---
admitting MD to bedside, pt denies pain and verbalizes is comfortable at this time. afebrile. vss. call villar within reach.
--- NOTE | 2024-11-19 02:48 | PC.NURSE ---
pt woke up yelling for nurse, upon entering room pt requested to be sat up more, call villar placed within reach. denies further concerns.
--- NOTE | 2024-11-19 03:45 | PM.IMHP ---
History of Present Illness Date of Service: 11/18/24 Attending physician on admission: Terell Walker Chief Complaint: Generalized weakness, poor oral intake and subjective fevers Patient is a 39 year old male with underlying history of multiple sclerosis, neurogenic bladder (followed by Dr. Cao), recurrent UTI who presents to the ER from home complaining of generalized weakness, poor appetite with decreased oral intake and fevers and is found to have sepsis and UTI. He was seen in the ER 3 days ago after he accidentally pulled out his suprapubic catheter which was replaced and is currently draining well.? He was sleepy when I saw him and did not give much additional information.? Initial blood work done revealed a leukocytosis of 18.7 K with a left shift and a low grade fever of 99.7 F. Urinalysis revealed elevated specific gravity, small leukocyte esterase and >50 WBC/HPF but with no bacteria.? An assessment of sepsis due to UTI was made and he was started on IV Ceftriaxone and admission requested. 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 Microcytic anemia Multiple sclerosis Headache Family History Other No family history of coronary artery disease Surgical History H/O hernia repair Social History Household Members: Family Household Members Other:: parents Housing: House 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 have visiting nurse or other home services: Yes Unable to assess alcohol history related to: Unknown Alcohol intake: never Patient Tobacco Use Status: Former Tobacco user Tobacco use type: Cigarette Cigarettes Per Day: 0.25 Smoked in Last 30 Days: No Use of substances other than those prescribed or required for medical reasons: No Substance Use Type: Marijuana Advance Directives: Yes Advance Directives on File: Yes Advance Directives Date on File: 08/21/22 Do you have a plan to hurt others: No Plan service: No Current occupational status: disabled Meds Allergies Allergy/AdvReac Type Severity Reaction Status Date / Time doxycycline Allergy Rash Verified 11/18/24 18:53 Home Medications ?Medication ?Instructions ?Recorded ?Confirmed ?Last Taken ?Type sertraline 50 mg tablet 50 mg PO DAILY 02/22/24 10/21/24 10/10/24 History clindamycin phosphate 1 % lotion 1 appl topical BID 09/10/24 10/21/24 10/10/24 History cholecalciferol (vitamin D3) 50 50 mcg PO DAILY 10/11/24 10/21/24 10/10/24 History mcg (2,000 unit) capsule (Vitamin D3) clotrimazole-betamethasone 1 1 appl topical BID 10/11/24 10/21/24 10/10/24 History %-0.05 % topical cream cyclobenzaprine 10 mg tablet 10 mg PO TID 10/11/24 10/21/24 10/10/24 History acetaminophen 500 mg tablet 500 mg PO Q6H PRN mild pain 10/21/24 10/21/24 Unknown History prednisone 20 mg tablet 20 mg PO DAILY 10/21/24 10/21/24 Unknown History Physical Exam Vital Signs and Narrative: Vital Signs: Last Vital Signs Temp 98.4 F 11/19/24 01:32 Pulse 82 11/19/24 01:32 Resp 18 11/19/24 01:32 BP 139/82 11/19/24 01:32 Pulse Ox 97 11/19/24 01:32 O2 Del Method Room Air 11/19/24 01:32 BMI result Body Mass Index 27.3 General: Well nourished. Very sleepy. In no obvious respiratory distress. Psychiatric: Very sleepy hence not assessed HEENT: Normocephalic, atraumatic. No pallor or jaundice. Moist oral mucus membranes. Neck: Supple. No JVD Lungs: Clear to auscultation bilaterally. No rales, rhonchi or wheezes Heart: RRR. Normal s1/s2. No murmurs, rubs or gallops. No peripheral edema. Abdomen: Scaphoid, Soft, non-tender. Normoactive bowel sounds. No visceromegaly. Noted with suprapubic catheter Genitourinary: Deferred Back/Spine/Pelvis: Deferred Skin: Warm, dry, well perfused. Normal turgor. No mottling. Normal capillary refill (< 2 seconds). Neurologic: Sleepy and minimally intercative. Paraplegic Extremities: Decreased muscle bulk, tone and power in both lower extremities. No peripheral edema. Good peripheral pulses. Results Labs 11/18/24 19:08 11/18/24 19:08 Labs: Laboratory Results - last 24 hr 11/18/24 11/18/24 11/18/24 19:05 19:08 20:00 MCV 75.9 L MCH 24.1 L MCHC 31.7 RDW 16.9 H Plt Count 339 D MPV 12.4 Immature Gran % (Auto) 0.4 Neut % (Auto) 84.3 H Lymph % (Auto) 4.0 L [place] % (Auto) 10.8 Eos % (Auto) 0.2 Baso % (Auto) 0.3 Lymph # (Auto) 0.8 L Good[place] # (Auto) 2.0 H Eos # (Auto) 0.0 Baso # (Auto) 0.1 Abs Immat Gran (auto) 0.08 H Absolute Neuts (auto) 15.8 H Absolute Nucleated RBC 0.000 Nucleated RBC % (auto) 0.0 Smear Tech's Comments VERIFIED Hold Purple Top SEE NOTE Anion Gap 16 Estim Creat Clear Calc 160.9 Estimated GFR > 60 Random Glucose 98 Lactic Acid 1.6 Calcium 9.9 D Magnesium 1.9 Total Bilirubin 0.4 AST 19 ALT 9 Alkaline Phosphatase 72 Troponin I High Sens 3.6 Total Protein 8.1 H Albumin 4.1 Urine Color Yellow Urine Appearance Cloudy Urine pH 6.5 Ur Specific Gilman >= 1.030 H Urine Protein 300 (3+) H Urine Glucose (UA) Negative Urine Ketones >=80 Urine Blood Large (3+) H Urine Nitrite Negative Ur Leukocyte Esterase Small (1+) H Urine RBC 11-20 H Urine WBC >50 Urine WBC Clumps Present Ur Squamous Epith Cells 0-2 Urine Bacteria None Seen Hyaline Casts 3-5 WBC Casts Present Urine Yeast Present Influenza Type A (PCR) NEGATIVE Influenza Type B (PCR) NEGATIVE RSV RNA Qual (PCR) NEGATIVE SARS-CoV-2 RNA (RT-PCR) NEGATIVE Imaging Radiologist's Impressions: Chest x-ray IMPRESSION: Left lower lobe patchy opacities/atelectasis. 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, bed-bound, history of recurrent urinary tract infections, mood disorder # Sepsis - he meets criteria for sepsis with tachycardia and leukocytosis in setting of complicated UTI - however with normal Lactic acid and BP - has a history of Enterococcus and Pseudomonas on review of previous urine cultures - received IV Ceftriaxone while in the ED which is not adequate coverage - will switch to IV Cefepime - follow up on urine cultures # Mood Disorder - resume Sertraline # Neuromyelitis optica spectrum disorder - he has been on cyclobenzaprine and baclofen which I will resume # Dysphagia - evaluated by CHLOROBUTADIENE SCRUBBER OPERATOR during previous hospitalizations - recommended NDD2 foods - adopt same diet during this hospitalization Total time managing care of this patient today: 75 minutes. Quality Stroke Does the patient have a stroke diagnosis?: No VTE Prior VTE?: No VTE Risk Level:: Medical - moderate - high VTE Device Contraindication: Treatment Not Indicated VTE Drug Contraindication: N/A - Med Ordered
--- NOTE | 2024-11-19 03:57 | PC.NURSE ---
pt reports feeling like he cant clear his throat, attempt to suction without improvement. pt had previously refused deep suctioning when offered by PA prior to admission. pt requesting now, RT notified. sats 96% on RA.
--- NOTE | 2024-11-19 07:17 | PC.NURSE ---
this RN resumed care of pt at 0645. a&ox4. tachycardic. otherwise vss and up to date. pt turned/repositioned to promote comfort. pt sitting upright to promote patent airway. 95% on RA. no signs of respiratory distress - no sob/wob noted. respirations even/unlabored. suction equipment bedside for precautions. pending bed assignment. plan of care ongoing. call villar placed within reach.
[2024-11-19 07:24] LABS: Hemoglobin 11.9 g/dl (14.0-18.0); Mean Corpuscular HGB Conc 32.2 g/dl (31.0-36.0); Mean Corpuscular Volume 74.6 fL (80.0-98.0); PLT CLUMP 1; Red Blood Count 4.96 X10*6/uL (4.60-5.80); Red Cell Distribution Width 16.4 % (11.0-16.0); WBC ABN SCTR FOR CBC 1
--- NOTE | 2024-11-19 07:37 | PC.NURSE ---
pt having difficulty maintaining secretions and drinking water w/o thickener. thickener applied to water. pt noted to have regular diet w/o applicable specifications. diet order changed to pureed/nectar thick. pt will require 1:1 feed d/t weakness. no speech/swallow evaluation ordered by admitting provider. will relay information to provider that pt would benefit from a proper evaluation.
[2024-11-19 07:41] LABS: Anion Gap 17 (12-20); Blood Urea Nitrogen 4 mg/dL (9-16); Calcium 8.6 mg/dL (8.4-10.2); Carbon Dioxide 22 mmol/L (22-29); Chloride 104 mmol/L (96-108); Creatinine Clr Calc Pharmacy 228.3; Estimated Glomerular Filt Rate > 60; Glucose Random 86 mg/dL (60-115); Potassium 3.7 mmol/L (3.3-5.1); Sodium 139 mmol/L (135-145)
[2024-11-19] MEDS: cefEPime HCl/D5W 2 GM/50 ML PIGGYBACK IV ×2 (07:49→16:51)
[2024-11-19] MEDS: 0.9 % Sodium Chloride Flush 3 ML SYRINGE IVFLUSH (07:49)
[2024-11-19 07:58] LABS: Procalcitonin 0.08 ng/mL
[2024-11-19 08:05] LABS: Band Neutrophils Percent 3 % (3-5); Lymphocytes Percent Manual 9 % (20-40); Metamyelocytes Percent 1 %; Monocytes Percent Manual 4 % (2-11); Neutrophils Percent Manual 83 % (45-73)
[2024-11-19 08:07] LABS: Hypochromasia 1+ (5-14) /OIF; Platelet Estimate NORMAL (NORMAL); Platelet Morphology Comment NOTED; RBC Morphology NOTED
[2024-11-19 08:08] LABS: Large Platelet PRESENT; Lymphocytes Absolute Manual 1.7 X10*3/uL (1.2-4.9); Metamyelocytes Absolute 0.2 X10*3/uL; Monocytes Absolute Manual 0.7 X10*3/uL (0.1-1.2); Platelet Count 257 X10*3/uL (160-400); White Blood Count 18.6 X10*3/uL (4.8-10.8)
[2024-11-19 08:41] LABS: C Reactive Protein 11.77 mg/dL (< or = 0.50)
[2024-11-19] MEDS: Enoxaparin Sodium 40 MG/0.4 ML SYRINGE SUBCUT (08:53)
[2024-11-19] MEDS: Sertraline HCL 50 MG TABLET PO (08:54)
[2024-11-19] MEDS: Cyclobenzaprine HCl 10 MG TABLET PO ×3 (08:54→19:52)
--- NOTE | 2024-11-19 09:04 | PC.NURSE ---
1:1 feed completed for breakfast. per pt, pt tolerated well. FIRE FIGHTING EQUIPMENT SPECIALIST evaluation ordered by MD. medication administered per provider order. crushed in applesauce. pt tolerated well. pt otherwise remains in upright position. no sob/wob noted. respirations even/unlabored. plan of care ongoing.
--- NOTE | 2024-11-19 10:28 | PC.NURSE ---
MAINTENANCE TECHNICIAN 2ND SHIFT evaluation completed. see notes in patient care for further details. per speech therapist, pt refusing to be suctioned during swallow evaluation. thick gargled cough noted. RT called in attempts to deep suction. deep suction performed w/ good output. pt turned repositioned to comfort. sitting upright to promote patent airway. SPO2 95% on RA.
--- NOTE | 2024-11-19 10:45 | PHA.MEDREC ---
Addendum entered by Rosamaria Keys RP 11/19/24 12:19: Reviewed by [facility] Original Note: Pharmacy Consult ? Medication Reconciliation Pharmacy has completed the medication reconciliation. tried to speak to patient through physics professor service, however patient was altered. called contact on file but phone was d/c. Utilized claims and discharge packet from 10/26/24 to confirm med list.
--- NOTE | 2024-11-19 12:35 | PC.NURSE ---
pt noted to be febrile, tachycardic, hypertensive and diaphoretic. prn tylenol utilized. effectiveness pending. provider notified/aware of vital signs. no new orders at this time.
[2024-11-19] MEDS: Acetaminophen 325 MG TABLET 650 MG PO (12:39)
--- NOTE | 2024-11-19 12:55 | PC.NURSE ---
pt to barium swallow study at this time.
--- NOTE | 2024-11-19 13:01 | MHC.CM.PN ---
Addendum entered by Kassandra Angela 11/21/24 13:28: TATO TAZ PHONE # [phone] HE AND HIS , ADALGISA, SHARE THE PHONE, THEY ARE ALSO BOTH PROVIDING CARE TO THE PT Addendum entered by Kassandra Angela 11/20/24 08:48: CORRECTION: PT HAS BOTH [facility] AND [facility] HIS INSURANCE IS [employer] Original Note: PICK UP DRIVER MET WITH PT AND NURSE ADVISOR IN ED PT LIVES WITH FAMILY PT RECEIVES SERVICES VIA [facility] PT IS WHEELCHAIR BOUND PT HAS DECIDED ON A HCP, TATO MCGHEE, BUT DOES NOT HAVE PHONE NUMBER AVAILABLE. PT'S PCP IS NAME PT'S INS IS MEDICARE, IMM DELIVERED PT WILL NEED BLS TRANSPORT DCP-TBD
--- NOTE | 2024-11-19 13:39 | PC.NURSE ---
pt returned from barium swallow assessment at this time. pt no longer hypertensive - no interventions completed. pt remains tachycardic/febrile. prn tylenol administration effectiveness pending. pt otherwise remains in no apparent respiratory distress. no sob/wob noted. sitting upright to promote patent airway. SPO2 @ 94%.
--- NOTE | 2024-11-19 14:13 | P.EN_ITS ---
Event Note Date of Service: 11/19/24 Event Note: Day hospitalist update S: coughing up a lot of thin clear sputum asking to have staff pound on his back febrile O: Temp Pulse Resp BP Pulse Ox O2 Del Method 100.9 F H 130 H 20 128/36 L 94 Room Air 11/19/24 14:01 11/19/24 14:01 11/19/24 14:01 11/19/24 14:01 11/19/24 14:01 11/19/24 14:01 Gen: paraplegic, ill-appearing HEENT: sclera anicteric, moist mucus membranes Neck: supple Lungs: coarse crackles L>R on inspiration Heart: regular rate and rhythm, no murmurs Abd: soft, non-tender, non-distended : suprapubic catheter Ext: no edema Skin: warm/well-perfused Neuro: alert and oriented x3, no focal findings Psych: appropriate affect labs: WBC 18.6, CRP 11.77, PCT 0.08 A/P: d1 for 39yo M with MS/neuromyelitis optica, neurogenic bladder, frequent UTIs presenting with weakness, fever, and anorexia; found to have sepsis suspected due to UTI after suprapubic catheter replacement 3d prior to admission; also found to have LLL pneumonia sepsis due to complicated UTI + pneumonia - cefepime 11/19-, follow BCx + UCx - lactate normal - CT chest, CT A/P to delineate source - MRSA swab, resp pathogen panel, urinary antigens for Legionella and pneumococcus - follow BCx, trend PCT - chest percussive therapy for secretions dysphagia - MBSS/ACCOUNTING SYSTEM EXPERT consultation NMO/MS - continue prednisone 20 mg/d mood disorder - sertraline muscle spasm - cyclobenzaprine VTE ppx - enoxaparin dispo - TBD In my clinical judgment, the patient requires continued hospitalization for the following reasons: IV ABX Time Spent With Patient Time: Total time managing care of this patient today ____ minutes.
[2024-11-19] MEDS: Acetaminophen 1,000 MG/100 ML PIGGYBACK 400 MG IV (14:33)
[2024-11-19] MEDS: Lactated Ringers 1,000 ML 125 ML IVCONT (14:43)
[2024-11-19] MEDS: oxyCODONE HCl Immed Release 5 MG TABLET PO (14:43)
--- NOTE | 2024-11-19 14:44 | PC.NURSE ---
pt remains febrile and tachycardic despite previous interventions. provider notified/aware that pt should be assessed d/t current status. MD bedside to assess. IV tylenol administered per provider order. effectiveness pending. LR now infusing @ 125mls/hr. pt pending CT scan prior to being transported upstairs. pt also noted to desat to 90% on RA - pt placed on 2L via NC w/ good effect. respirations remain even/unlabored. pt positioned upright to promote patent airway. plan of care ongoing.
[2024-11-19 15:24] LABS: Lactic Acid 0.9 mmol/L (0.5-2.0)
[2024-11-19 16:29] LABS: MRSA Nasal PCR POSITIVE (Negative); SA Nasal PCR POSITIVE (Negative)
--- NOTE | 2024-11-19 17:30 | MHC.SL.MBSTD ---
Referring provider: Yulissa Bustos MD Reason for Referral: ams/ aspiration Type of Treatment: 22984 Modified Barium Swallow Study Date of Plan of Treatment: 11/19/24 Onset of Symptoms/Illness: 11/19/24 Date Treatment Started: 11/19/24 Medical Diagnosis: Sepsis, acute UTI Speech & Language Primary Diagnosis:R13.12 Oropharyngeal Phase Dysphagia Speech & Language Secondary Diagnosis: Comments: Patient is a 39 year old male w/ MS, brought to the ED with complaints of generalized weakness, poor appetite with decreased oral intake and fevers, found to have sepsis and UTI. Patient w/ hx recurrent UTIs, also reports chronic cough. 11/18 CXR showing, Left lower lobe patchy opacities/atelectasis. RN reported patient w/ difficulty managing secretions and swallowing thin liquid. REPORTING ANALYST was consulted to further evaluate and recommended MBSS d/t patient's extensive history of dysphagia and worsening symptoms. Dysphagia Related: Risk of Aspiration Oralpharyngeal Dysphagia Comments: Patient presenting as mildly anxious and more altered than baseline. Risk for Aspiration: Neurological Condition Poor PO Intake Reduced Cognition Current Dietary Consistencies: Pureed (NDD1) Current Liquid Intake Consistencies: [place] Thick Current Medication Administration Method: Crushed with Puree Assessment Clinicial Observations: Exam revealed severe oropharyngeal dysphagia, marked by delayed AP transport, significantly delayed pharyngeal swallow trigger, incomplete laryngeal elevation, absent epiglottic inversion and partial to no laryngeal vestibular closure. Compromised airway protection with aspiration on honey thick and puree consistencies. Minimal to no pharyngeal clearance with significant pooling in the pyriform sinuses and marked obstruction of flow through the PES. Impressions and Recommendations Summary: This exam was conducted by the speech pathologist and the radiologist. Patient was seated upright at 80-90 degrees for PO trials. Patient had a tendency to hold his chin up and his positioning improved with re-adjustment by motorcycle service technician. Patient was fed with 1:1 assistance and trialed honey thick and puree (applesauce with pudding thick barium mixture) consistencies via teaspoon. Patient demonstrated adequate lip closure with no anterior spilling. Posterior lingual transport was delayed with slowed tongue movement and premature posterior escape of bolus. There was mild residue seen on the tongue and floor of mouth. Pharyngeal swallow trigger was significantly delayed, initiated as the bolus head reached the pyriforms. No evidence of nasopharyngeal reflux. Partial laryngeal elevation, with partial anterior hyoid excursion, minimal to no epiglottic inversion, and minimal to no laryngeal vestibular closure. There was deep penetration with subsequent aspiration on trials of honey thick and puree consistencies. Patient did not elicit a spontaneous cough, but did gurgle on this contrast, which ejected a small amount of contrast from the airway. Patient with minimal to no pharyngeal clearance, with contrast collecting on the posterior pharyngeal wall and mostly in the pyriform. Contrast from the pyriform spilled into the airway with subsequent dry swallows resulting in gabby aspiration. Minimal distention and marked obstruction of flow through the pharyngoesophgeal segment opening (PES). Exam was discontinued for patient safety, as patient presented with compromised airway protection and was likely to continue aspirating. Comment: Recommendation for Speech Therapy: Inpatient Speech Therapy Speech Therapy through [facility] Speech Therapy through Rehab Facility Modified Barium Swallow Study - Inpatient Modified Barium Swallow Study - Outpatient Text Comment: Patient w/ extensive history of dysphagia in setting of underlying MS. Patient presents with progressively worsening swallow ability, difficulty managing secretions, weak and ineffective cough/throat clearing, MBSS 11/19 showing aspiration on honey thick/puree consistencies. REPORTING ANALYST will continue to follow for dysphagia treatment while inpatient. Patient will need continued speech therapy after discharge ([facility] versus rehab) and repeat-MBSS when appropriate to assess for changes/improvement. Frequency/Duration: Date Range for Service Requested: Timeline to reassess: PRN Notes: Recommend continue NPO status at this time due to the severity of patient?s dysphagia and elevated risk of aspiration. Recommend consultation with Nutrition Services/GI to assess candidacy for temporary vs. long-term alternate means of nutrition. Recommended Referrals: Alternate Feeding Method Dietary Consult Consider alternate feeding methods Patient Education Completed: Yes Patient/Caregiver Education: Described Results of Evaluation Comments/Barriers to Learning: It is important to note MBSS objective studies are snapshots in time and Patient function might vary with factors such as time of day or concomitant medical conditions. For this reason, the final treatment plan for this patient should rest with their medical care team. Additional recommendations should be considered with the totality of the Patient in mind. Thank for the opportunity to participate in the care of this patient. If you have any questions about the content of this report, please contact the [facility] at [facility]. Quill Winder Clinican/Clinical Fellow: No Supervisory Statement: N/A Speech Language Pathologist: Scarlet Wesley M.A., [facility]-REPORTING ANALYST
[2024-11-19 17:36] LABS: Glucose, Whole Blood 114 mg/dL (60-115)
--- NOTE | 2024-11-19 17:45 | PC.NURSE ---
radiology enformed this RN that pt was unresponsive while attempting to transport pt from stretcher to CT table. upon this RN's assessment, pt extremely difficult to arouse. not responsive to verbal stimuli or physical stimuli. sternal rub performed w/ no response. pt's body completely flaccid unable to keep body upright/keep eyes open. pt noted to have eyes rolled to the back of his head. rapid response called by charge master coordinatorHarriet. pt placed back into ED13. assessed by MD. no new orders. pt remains minimally responsive at this time. pt remains on 2L via NC. sitting upright to promote patent airway. otherwise vss and up to date aside from being tachycardic. plan of care ongoing.
[2024-11-19] MEDS: iohexoL 350 MG/ML 100 ML INFUS..BTL 85 ML IV (19:13)
[2024-11-19] MEDS: Sennosides 8.6 MG TABLET 17.2 MG PO (19:51)
[2024-11-19] MEDS: Ascorbic Acid 500 MG TABLET PO (19:52)
[2024-11-20] VITALS (8 sets, daily range): BP systolic 120–148; BP diastolic 78–97; PULSE 97–152; RESP 16–20; TEMP 35.9–38.6; O2SAT 94–98
[2024-11-20] MEDS: cefEPime HCl/D5W 2 GM/50 ML PIGGYBACK IV ×3 (01:07→17:25)
[2024-11-20 06:34] LABS: Hematocrit 37.4 % (42.0-52.0); Mean Corpuscular HGB Conc 32.1 g/dl (31.0-36.0); Mean Corpuscular Volume 74.8 fL (80.0-98.0); Mean Platelet Volume 12.1 fL (9.4-12.4); Platelet Count 267 X10*3/uL (160-400); Red Cell Distribution Width 16.4 % (11.0-16.0)
[2024-11-20] MEDS: Lactated Ringers 1,000 ML 125 ML IVCONT ×2 (07:30→18:40)
[2024-11-20 08:44] LABS: Triglycerides 54 mg/dL (<150)
[2024-11-20 08:47] LABS: Blood Urea Nitrogen 3 mg/dL (9-16); Calcium 9.1 mg/dL (8.4-10.2); Creatinine Clr Calc Pharmacy 213.4; Estimated Glomerular Filt Rate > 60; Glucose Random 85 mg/dL (60-115)
[2024-11-20 09:01] LABS: Adenovirus PCR Not Detected (Not Detect.); Bordetella parapertussis PCR Not Detected (Not Detect.); Bordetella pertussis PCR Not Detected (Not Detect.); Chlamydia pneumoniae PCR Not Detected (Not Detect.); Coronavirus 229E PCR Not Detected (Not Detect.); Coronavirus HKU1 PCR Not Detected (Not Detect.); Coronavirus NL63 PCR Not Detected (Not Detect.); Coronavirus OC43 PCR Not Detected (Not Detect.); Human metapneumovirus PCR Not Detected (Not Detect.); Influenza A PCR Not Detected (Not Detect.); Influenza B PCR Not Detected (Not Detect.); Mycoplasma pneumoniae PCR Not Detected (Not Detect.); Parainfluenza 1 PCR Not Detected (Not Detect.); Parainfluenza 2 PCR Not Detected (Not Detect.); Parainfluenza 3 PCR Not Detected (Not Detect.); Parainfluenza 4 PCR Not Detected (Not Detect.); RSV PCR Not Detected (Not Detect.); Rhino/Enterovirus PCR Not Detected (Not Detect.)
[2024-11-20 09:02] LABS: Anion Gap 15 (12-20); Carbon Dioxide 28 mmol/L (22-29); Chloride 101 mmol/L (96-108); Potassium 3.1 mmol/L (3.3-5.1); Sodium 141 mmol/L (135-145)
[2024-11-20 09:14] LABS: SARS-CoV-2 PCR Not Detected (Not Detect.)
[2024-11-20 09:38] LABS: Albumin Level 3.7 g/dL (3.5-5.0); Magnesium 1.6 mg/dL (1.6-2.6)
[2024-11-20] MEDS: Enoxaparin Sodium 40 MG/0.4 ML SYRINGE SUBCUT (09:46)
--- NOTE | 2024-11-20 09:50 | MHC.CLN ---
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 RECOMMENDING NPO-DIET ORDER DOWNGRADED TO NPO BY THIS MOLDING ASSOCIATE REVIEWED LABS DISCUSSED WITH PHARMACY PT TO START PPN: DAY 1 11/20/24 RECOMMEND PPN AT 60ML/HR TO PROVIDE 734KCALS, 144G DEXTROSE, 61G PROTEIN REPLETE LYTES NEEDED DAY 2 11/21/24 RECOMMEND PPN AT 80ML/HR TO PROVIDE 979KCALS, 192G DEXTROSE, 82G PROTEIN REPLETE LYTES NEEDED DAY 3 11/22/24 RECOMMEND PPN AT MAX GOAL RATE 100ML/HR WITH 87G LIPIDS TO PROVIDE 2094 TOTAL KCALS (25KCALS/KG), 240G DEXTROSE, 102G PROTEIN (1.2G/KG) NOTED TRIGS 54, REPLETE LYTES NEEDED RD CAN BE REACHED VIA TIGER CONNECT DURING OFF HOURS IF NEEDED FULL ASSESSMENT TO FOLLOW
[2024-11-20] MEDS: methylPREDNISolone Sod Succ 40 MG/ML VIAL 20 MG IVPUSH (10:23)
[2024-11-20] MEDS: Morphine Sulfate 2 MG/ML CARTRIDGE IVPUSH ×2 (10:45→22:40)
[2024-11-20] MEDS: Acetaminophen 1,000 MG/100 ML PIGGYBACK 400 MG IV (11:21)
[2024-11-20] MEDS: Potassium Chloride/H20 10 MEQ/100 ML PIGGYBACK 100 MEQ IV ×2 (12:45→13:41)
--- NOTE | 2024-11-20 13:02 | HO.PM.IMPN ---
Subjective Subjective Date of Service: 11/20/24 Interval History: failed MBSS yesterday adamantly refuses G-tube tachycardic/febrile to 101.4 denies pain Review of Systems Review of Systems: Yes all other systems are reviewed and are negative Physical Exam Vital Signs: Vital Signs: Last Vital Signs Temp 98.6 F 11/20/24 11:21 Pulse 152 H 11/20/24 11:21 Resp 20 11/20/24 11:21 BP 127/97 H 11/20/24 11:21 Pulse Ox 96 11/20/24 11:21 O2 Del Method Nasal Cannula 11/20/24 11:21 O2 Flow Rate 2 11/20/24 11:21 BMI result Body Mass Index 27.3 Gen: paraplegic, contracted HEENT: sclera anicteric, moist mucus membranes Neck: supple Lungs: coarse crackles L>R Heart: regular + tachycardic, no murmurs Abd: soft, non-tender, non-distended : suprapubic catheter Ext: no edema Skin: warm/well-perfused Neuro: alert and oriented x3, no focal findings Psych: appropriate affect Objective Data Active Medications Acetaminophen (Acetaminophen 325 Mg Tablet) 650 mg PO Q6H PRN PRN Reason: Pain, Mild 1-3,fever,headache Last Admin: 11/19/24 12:39 Dose: 650 mg Documented By: VINOD Ascorbic Acid (Ascorbic Acid 500 Mg Tablet) 500 mg PO BID [facility] Last Admin: 11/20/24 09:58 Dose: Not Given Documented By: PODMORP Non-Admin Reason: Patient Condition Contraindication Calcium Carbonate (Calcium Carbonate 750 Mg Tab.Chew) 750 mg PO Q4H PRN PRN Reason: Heartburn Cyclobenzaprine HCl (Cyclobenzaprine Hcl 10 Mg Tablet) 10 mg PO TID [facility] Last Admin: 11/20/24 09:58 Dose: Not Given Documented By: DEBORAMORP Non-Admin Reason: Patient Condition Contraindication Enoxaparin Sodium (Enoxaparin Sodium 40 Mg/0.4 Ml Syringe) 40 mg SUBCUT Q24H [facility] Last Admin: 11/20/24 09:46 Dose: 40 mg Documented By: DEBORAMORP Cefepime HCl (Maxipime) 2 gm in 50 mls @ 100 mls/hr IV Q8H [facility] Last Infusion: 11/20/24 08:29 Dose: Infused Documented By: DEBORAMORP Lactated Ringer's (Lr) 1,000 mls @ 125 mls/hr IVCONT .Q8H [facility] Last Admin: 11/20/24 07:30 Dose: 125 mls/hr Documented By: PODMORP Nutrition (Parenteral) (Parenteral Nutrition) 1,440 mls @ 60 mls/hr IV .Q24H [facility]; Protocol Stop: 11/21/24 20:59 Potassium Chloride (Potassium Chloride/H20) 10 meq in 100 mls @ 100 mls/hr IV Q1H [facility] Stop: 11/20/24 14:14 Last Admin: 11/20/24 12:45 Dose: 100 mls/hr Documented By: PODMORP Magnesium Hydroxide (Milk Of Magnesia 30 Ml Oral.Susp) 30 ml PO DAILY PRN PRN Reason: Constipation Melatonin (Melatonin 3 Mg Tablet) 6 mg PO BEDTIME PRN PRN Reason: Insomnia Methylprednisolone Sodium Succinate (Methylprednisolone Sod Succ 40 Mg/Ml Vial) 20 mg IVPUSH Q24H [facility] Last Admin: 11/20/24 10:23 Dose: 20 mg Documented By: PODMORP Morphine Sulfate (Morphine Sulfate 2 Mg/Ml Cartridge) 2 mg IVPUSH Q3H PRN; Protocol PRN Reason: Pain, Severe (Pain Scale 7-10) Last Admin: 11/20/24 10:45 Dose: 2 mg Documented By: PODMORP Ondansetron HCl (Ondansetron Hcl 4 Mg/2 Ml Vial) 4 mg IVPUSH Q8H PRN PRN Reason: Nausea and Vomiting Oxycodone HCl (Oxycodone Hcl Immed Release 5 Mg Tablet) 5 mg PO Q6H PRN PRN Reason: Pain, Severe (Pain Scale 7-10) Last Admin: 11/19/24 14:43 Dose: 5 mg Documented By: VINOD Pharmacy Consult (Consult Rx Parenteral Nutrition Ordering) 1 each MISCELLANE DAILY PRN PRN Reason: Consult order Senna (Sennosides 8.6 Mg Tablet) 17.2 mg PO BEDTIME [facility] Last Admin: 11/19/24 19:51 Dose: 17.2 mg Documented By: RIOSCSAROJ Sertraline HCl (Sertraline Hcl 50 Mg Tablet) 50 mg PO DAILY [facility] Last Admin: 11/20/24 09:58 Dose: Not Given Documented By: HO.PODMORP Non-Admin Reason: Patient Condition Contraindication Sodium Chloride (0.9 % Sodium Chloride Flush 3 Ml Syringe) 3 ml IVFLUSH QSHIFT [facility] Last Admin: 11/20/24 08:03 Dose: Not Given Documented By: HO.PODMORP Non-Admin Reason: IV Running Vitamin D (Cholecalciferol (Vitamin D3) 25 Mcg Tablet) 50 mcg PO DAILY [facility] Last Admin: 11/20/24 09:58 Dose: Not Given Documented By: HOGuilhermePODMORP Non-Admin Reason: Patient Condition Contraindication Labs 11/20/24 06:06 11/20/24 08:26 Labs: Laboratory Results - last 24 hr 11/19/24 11/19/24 11/19/24 14:57 15:04 17:31 MCV MCH MCHC RDW Plt Count MPV Absolute Nucleated RBC Nucleated RBC % (auto) Anion Gap Estim Creat Clear Calc Estimated GFR POC Glucose 114 Random Glucose Lactic Acid 0.9 Calcium Phosphorus Magnesium Albumin Triglycerides Nasal Screen MRSA (PCR) POSITIVE A Nasal S. aureus Screen POSITIVE A Nasal MRSA/S.aureus Interp SEE NOTE Respiratory Panel Caceres See Note Adenovirus (Rapid PCR) Not Detected B.pert (TEM-PCR) Not Detected B.parapertussis DNA PCR Not Detected C. pneumoniae DNA (PCR) Not Detected Coronavirus OC43 (PCR) Not Detected Coronavirus HKU1 (PCR) Not Detected Coronavirus 229E (PCR) Not Detected Coronavirus NL63 (PCR) Not Detected Human Metapneumovir PCR Not Detected Influenza A (RT-PCR) Not Detected Influenza B (RT-PCR) Not Detected M. pneumoniae (PCR) Not Detected Parainfluenza 1 (PCR) Not Detected Parainfluenza 2 (PCR) Not Detected Parainfluenza 3 (PCR) Not Detected Parainfluenza 4 (PCR) Not Detected RSV (PCR) Not Detected Entero/Rhino (PCR) Not Detected SARS-CoV-2 RNA (RT-PCR) Not Detected 11/20/24 11/20/24 06:06 08:26 MCV 74.8 L MCH 24.0 L MCHC 32.1 RDW 16.4 H Plt Count 267 MPV 12.1 Absolute Nucleated RBC 0.000 Nucleated RBC % (auto) 0.0 Anion Gap 15 Estim Creat Clear Calc 213.4 Estimated GFR > 60 POC Glucose Random Glucose 85 Lactic Acid Calcium 9.1 Phosphorus 3.0 Magnesium 1.6 Albumin 3.7 Triglycerides 54 Nasal Screen MRSA (PCR) Nasal S. aureus Screen Nasal MRSA/S.aureus Interp Respiratory Panel Caceres Adenovirus (Rapid PCR) B.pert (TEM-PCR) B.parapertussis DNA PCR C. pneumoniae DNA (PCR) Coronavirus OC43 (PCR) Coronavirus HKU1 (PCR) Coronavirus 229E (PCR) Coronavirus NL63 (PCR) Human Metapneumovir PCR Influenza A (RT-PCR) Influenza B (RT-PCR) M. pneumoniae (PCR) Parainfluenza 1 (PCR) Parainfluenza 2 (PCR) Parainfluenza 3 (PCR) Parainfluenza 4 (PCR) RSV (PCR) Entero/Rhino (PCR) SARS-CoV-2 RNA (RT-PCR) CT head 11/19 1. No acute intracranial findings. CT chest 11/19 Ill-defined bilateral tree-in-bud nodular/patchy consolidations in the dependent lungs, worse in the left lower lobe. Findings concerning for endobronchial pneumonia or aspiration. CT A/P 11/19 1. Suprapubic Villatoro catheter in place with possible cystitis. 2. Nonobstructive 2 mm calculus in the left upper pole kidney. Microbiology Microbiology Results: Microbiology 11/18/24 22:04 Urine Culture - Preliminary Urine Other - Suprapubic Yeast Enterococcus/Streptococcus sp 11/18/24 19:25 Blood Culture - Preliminary Blood - Venous No growth after 24 hours. 11/18/24 19:08 Blood Culture - Preliminary Blood - Venous No growth after 24 hours. Assessment and Plan (1) Sepsis: Status: Acute Plan d2 for 39yo M with MS/neuromyelitis optica, neurogenic bladder, frequent UTIs presenting with weakness, fever, and anorexia; found to have sepsis suspected due to UTI after suprapubic catheter replacement 3d prior to admission; also found to have LLL pneumonia sepsis due to complicated UTI + pneumonia - cefepime 11/19-, vancomycin 11/20-, follow BCx + UCx, trend PCT - lactate normal - MRSA swab POSITIVE, resp pathogen panel negative, urinary antigens for Legionella and pneumococcus pending - chest percussive therapy for secretions - D-dimer due to tachycardia; if abnormal will obtain CTA to r/o PE dysphagia - MBSS with gabby aspiration - pt refuses G-tube. Will discuss with pt and his family/caregivers in person but in meanwhile will place on PPN. NMO/MS - continue methylprednisolone [on 20 mg/d of prednisone at home]; Neuro consult re prognosis VTE ppx - enoxaparin dispo - TBD In my clinical judgment, the patient requires continued inpatient hospitalization for the following reasons: IV ABX, PPN Total time managing care of this patient today: 45 minutes. Quality Stroke Does the patient have a stroke diagnosis?: No VTE Prior VTE?: No VTE Risk Level:: Medical - moderate - high VTE Device Contraindication: Treatment Not Indicated VTE Drug Contraindication: N/A - Med Ordered
[2024-11-20 13:54] LABS: D Dimer High Sensitivity 394 NG/ML
[2024-11-20] MEDS: vancomycin/NS 2,000 MG/500 ML PLAST..BAG 250 MG IV (14:45)
--- NOTE | 2024-11-20 14:59 | P.CNNE_ITS ---
History of Present Illness Data of Consult Service Date: 11/20/24 Primary Care Provider: MD TIKA Brock Reason for consult: Failure to thrive 39 years old unfortunate man with the severe encephalopathy mostly involving brainstem resulting in signal abnormality suggestive of demyelinating disease but that was just 1 of the possibilities. In addition his imaging had also revealed cord atrophy but no significant supratentorial lesions. This has resulted in paraparesis to paraplegia type of symptomatology. He has been given diagnosis of multiple sclerosis though that was a possibility. Neuromyelitis optica syndrome is another possibility but he did not have classical features of that either. In my opinion, his precise diagnosis is unknown. He is admitted in hospital because of generalized weakness and failure to thrive. Over the years he has taken neuro modulating agents and sometime steroids but response to all those treatments have been minimal to none. 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 Microcytic anemia Multiple sclerosis Headache Family History Family History Other No family history of coronary artery disease Surgical History Surgical History H/O hernia repair Social History Social History Household Members: Family Household Members Other:: parents Housing: Apartment 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 have visiting nurse or other home services: Yes Unable to assess alcohol history related to: Unknown Alcohol intake: never Patient Tobacco Use Status: Former Tobacco user Tobacco use type: Cigarette Cigarettes Per Day: 0.25 Substance Use Type: Marijuana Advance Directives Date on File: 08/21/22 service: No Current occupational status: disabled Meds Allergies Allergy/AdvReac Type Severity Reaction Status Date / Time doxycycline Allergy Rash Verified 11/18/24 18:53 Active Medications: Current Medications Acetaminophen (Acetaminophen 325 Mg Tablet) 650 mg PO Q6H PRN PRN Reason: Pain, Mild 1-3,fever,headache Last Admin: 11/19/24 12:39 Dose: 650 mg Ascorbic Acid (Ascorbic Acid 500 Mg Tablet) 500 mg PO BID [facility] Last Admin: 11/20/24 09:58 Dose: Not Given Calcium Carbonate (Calcium Carbonate 750 Mg Tab.Chew) 750 mg PO Q4H PRN PRN Reason: Heartburn Cyclobenzaprine HCl (Cyclobenzaprine Hcl 10 Mg Tablet) 10 mg PO TID [facility] Last Admin: 11/20/24 09:58 Dose: Not Given Enoxaparin Sodium (Enoxaparin Sodium 40 Mg/0.4 Ml Syringe) 40 mg SUBCUT Q24H [facility] Last Admin: 11/20/24 09:46 Dose: 40 mg Cefepime HCl (Maxipime) 2 gm in 50 mls @ 100 mls/hr IV Q8H [facility] Last Infusion: 11/20/24 08:29 Dose: Infused Lactated Ringer's (Lr) 1,000 mls @ 125 mls/hr IVCONT .Q8H [facility] Last Admin: 11/20/24 07:30 Dose: 125 mls/hr Nutrition (Parenteral) (Parenteral Nutrition) 1,440 mls @ 60 mls/hr IV .Q24H [facility]; Protocol Stop: 11/21/24 20:59 Vancomycin HCl (Vancomycin/Ns) 2,000 mg in 500 mls @ 250 mls/hr IV ONCE ONE Stop: 11/20/24 15:04 Last Admin: 11/20/24 14:45 Dose: 250 mls/hr Magnesium Hydroxide (Milk Of Magnesia 30 Ml Oral.Susp) 30 ml PO DAILY PRN PRN Reason: Constipation Melatonin (Melatonin 3 Mg Tablet) 6 mg PO BEDTIME PRN PRN Reason: Insomnia Methylprednisolone Sodium Succinate (Methylprednisolone Sod Succ 40 Mg/Ml Vial) 20 mg IVPUSH Q24H [facility] Last Admin: 11/20/24 10:23 Dose: 20 mg Morphine Sulfate (Morphine Sulfate 2 Mg/Ml Cartridge) 2 mg IVPUSH Q3H PRN; Protocol PRN Reason: Pain, Severe (Pain Scale 7-10) Last Admin: 11/20/24 10:45 Dose: 2 mg Ondansetron HCl (Ondansetron Hcl 4 Mg/2 Ml Vial) 4 mg IVPUSH Q8H PRN PRN Reason: Nausea and Vomiting Oxycodone HCl (Oxycodone Hcl Immed Release 5 Mg Tablet) 5 mg PO Q6H PRN PRN Reason: Pain, Severe (Pain Scale 7-10) Last Admin: 11/19/24 14:43 Dose: 5 mg Pharmacy Consult (Consult Rx Parenteral Nutrition Ordering) 1 each MISCELLANE DAILY PRN PRN Reason: Consult order Pharmacy Consult (Consult Rx Vancomycin Dosing) 1 each MISCELLANE DAILY PRN PRN Reason: Consult order Senna (Sennosides 8.6 Mg Tablet) 17.2 mg PO BEDTIME [facility] Last Admin: 11/19/24 19:51 Dose: 17.2 mg Sertraline HCl (Sertraline Hcl 50 Mg Tablet) 50 mg PO DAILY [facility] Last Admin: 11/20/24 09:58 Dose: Not Given Sodium Chloride (0.9 % Sodium Chloride Flush 3 Ml Syringe) 3 ml IVFLUSH QSHIFT [facility] Last Admin: 11/20/24 08:03 Dose: Not Given Vitamin D (Cholecalciferol (Vitamin D3) 25 Mcg Tablet) 50 mcg PO DAILY [facility] Last Admin: 11/20/24 09:58 Dose: Not Given Home Medications ?Medication ?Instructions ?Recorded ?Confirmed ?Last Taken ?Type sertraline 50 mg tablet 50 mg PO DAILY 02/22/24 11/19/24 10/10/24 History clindamycin phosphate 1 % lotion 1 appl topical BID 09/10/24 11/19/24 10/10/24 History cholecalciferol (vitamin D3) 50 50 mcg PO DAILY 10/11/24 11/19/24 10/10/24 History mcg (2,000 unit) capsule (Vitamin D3) clotrimazole-betamethasone 1 1 appl topical BID 10/11/24 11/19/24 10/10/24 History %-0.05 % topical cream cyclobenzaprine 10 mg tablet 10 mg PO TID 10/11/24 11/19/24 10/10/24 History acetaminophen 500 mg tablet 500 mg PO Q6H PRN mild pain 10/21/24 11/19/24 Unknown History prednisone 20 mg tablet 20 mg PO DAILY 10/21/24 11/19/24 Unknown History Physical Exam 2 Vital Signs: Vital Signs: Last Vital Signs Temp 98.6 F 11/20/24 11:21 Pulse 152 H 11/20/24 11:21 Resp 20 11/20/24 11:21 BP 127/97 H 11/20/24 11:21 Pulse Ox 96 11/20/24 11:21 O2 Del Method Nasal Cannula 11/20/24 11:21 O2 Flow Rate 2 11/20/24 11:21 BMI result Body Mass Index 27.3 Neuro: Other: Somewhat groggy, slowly speaking and mumbling though I could barely make sense of that. He told me that his neurologist was in [facility]. He was following some one-step commands. Neck was extended. Face was symmetrical. Visual rdz are full. 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 Results Labs 11/20/24 06:06 11/20/24 08:26 Labs: Short CBC 11/20/24 Range/Units 06:06 WBC 14.0 H (4.8-10.8) X10*3/uL Hgb 12.0 L (14.0-18.0) g/dl Hct 37.4 L (42.0-52.0) % Plt Count 267 (160-400) X10*3/uL BMP 11/20/24 08:26 Sodium 141 Potassium 3.1 L Chloride 101 Carbon Dioxide 28 BUN 3 L Creatinine 0.46 L Calcium 9.1 Liver Function 11/20/24 Range/Units 08:26 Albumin 3.7 (3.5-5.0) g/dL His head CT revealed moderately severe atrophy of basia and cerebellum. Previously, MRI of brain has revealed significant hyperintense signal abnormalities in those areas. Microbiology Microbiology Results: Microbiology 11/18/24 22:04 Urine Other - Suprapubic Urine Culture - Preliminary Yeast Enterococcus/Streptococcus sp 11/18/24 19:25 Blood - Venous Blood Culture - Preliminary No growth after 24 hours. 11/18/24 19:08 Blood - Venous Blood Culture - Preliminary No growth after 24 hours. Assessment and Plan (1) Demyelinating disease: Status: Acute 39 years old unfortunate man with brain and spinal cord pathology of unknown cause severely impacting different aspects of brainstem specially basia and cerebellum, and the spinal cord causing cord atrophy. All this pathology has resulted in quadriparesis, difficulty speaking and swallowing. Though he has been treated for multiple sclerosis, overall clinical features are atypical of that. My recommendation is to try Solu-Medrol g a day for 3 days. His disability has reached a point that he required [facility] type of care. He would require a feeding to, if there were no instructions against it. Procedures Date of Service Date of Service: 11/20/24
--- NOTE | 2024-11-20 15:28 | PHA.PROG ---
Admission Date/Time: November 18, 2024 23:26 Indication: RESPIRATORY Weight in k.915 kg Adjusted body weight in Kg: [place] body weight in Kg: Obesity Dosing Indication % IBW: Serum Creatinine - Last 168 Hours 11/18/24 11/19/24 11/20/24 19:08 06:50 08:26 Creatinine 0.61 0.43 L 0.46 L Estimated CrCl and GFR - Last 168 Hours 11/18/24 11/19/24 11/20/24 19:08 06:50 08:26 Estim Creat Clear Calc 160.9 228.3 213.4 Estimated GFR > 60 > 60 > 60 Vancomycin Loading Dose: 2000 MG Current Vancomycin Dosing Regimen: 1000 MG Q8H Vancomycin Monitoring using AUC goal of 400 - 600 range with trough as surrogate marker: [id number] TROUGH=18 Date and Time for next Vancomycin Level to be drawn: 11/21/24 @1300 Pharmacist Comments on Vancomycin Plan: Vancomycin dosing will take advantage of [employer] as a clinical decision support tool that uses Bayesian modeling to calculate individual patient's pharmacokinetic parameters and forecast the patient's drug concentration time course with the target goal AUC 24 range of 400 - 600 mg/L/hr.
[2024-11-20] MEDS: Parenteral Nutrition 1,440 ML 60 ML IV (22:36)
[2024-11-20] MEDS: 0.9 % Sodium Chloride Flush 3 ML SYRINGE IVFLUSH (22:40)
[2024-11-20] MEDS: vancomycin HCL 1,000 MG in 0.9 % Sodium Chloride 250 ML 270 MG IV (23:32)
[2024-11-21] MEDS: cefEPime HCl/D5W 2 GM/50 ML PIGGYBACK IV ×3 (02:13→17:39)
[2024-11-21 03:40] VITALS: BP 110/70; PULSE 107; RESP 16; TEMP 36.1; O2SAT 99
[2024-11-21 06:12] VITALS: O2SAT 97
[2024-11-21] MEDS: vancomycin HCL 1,000 MG in 0.9 % Sodium Chloride 250 ML 270 MG IV ×2 (06:17→16:29)
[2024-11-21 07:02] LABS: Hematocrit 35.1 % (42.0-52.0); Hemoglobin 11.1 g/dl (14.0-18.0); Mean Corpuscular HGB Conc 31.6 g/dl (31.0-36.0); Mean Corpuscular Hemoglobin 23.7 pg (27.0-33.0); Mean Corpuscular Volume 74.8 fL (80.0-98.0); Mean Platelet Volume 13.1 fL (9.4-12.4); Platelet Count 275 X10*3/uL (160-400); Red Blood Count 4.69 X10*6/uL (4.60-5.80); Red Cell Distribution Width 16.5 % (11.0-16.0); White Blood Count 14.3 X10*3/uL (4.8-10.8)
[2024-11-21 07:03] LABS: PLT ABN DIST 1
[2024-11-21 07:54] LABS: Anion Gap 11 (12-20); Blood Urea Nitrogen 5 mg/dL (9-16); Carbon Dioxide 30 mmol/L (22-29); Chloride 104 mmol/L (96-108); Creatinine Clr Calc Pharmacy 188.8; Estimated Glomerular Filt Rate > 60; Glucose Random 116 mg/dL (60-115); Potassium 3.1 mmol/L (3.3-5.1); Sodium 142 mmol/L (135-145)
[2024-11-21 07:57] VITALS: BP 132/79; PULSE 103; RESP 18; TEMP 36.7; O2SAT 94
[2024-11-21] MEDS: Morphine Sulfate 2 MG/ML CARTRIDGE IVPUSH ×2 (07:59→21:41)
[2024-11-21] MEDS: 0.9 % Sodium Chloride Flush 3 ML SYRINGE IVFLUSH ×2 (08:00→16:33)
[2024-11-21] MEDS: Enoxaparin Sodium 40 MG/0.4 ML SYRINGE SUBCUT (08:00)
[2024-11-21 08:33] LABS: Magnesium 1.6 mg/dL (1.6-2.6); Phosphorus 2.4 mg/dL (2.7-4.5); Procalcitonin 5.97 ng/mL
[2024-11-21] MEDS: Potassium Chloride/H20 10 MEQ/100 ML PIGGYBACK 100 MEQ IV ×2 (10:29→12:11)
[2024-11-21] MEDS: methylPREDNISolone Sod Succ 1,000 MG in 0.9 % Sodium Chloride 50 ML 66 MG IV (10:31)
[2024-11-21] MEDS: iohexoL 350 MG/ML 100 ML INFUS..BTL 65 ML IV (11:33)
--- NOTE | 2024-11-21 13:08 | P.PNIM_ITS ---
Subjective Subjective Date of Service: 11/21/24 Interval History: This history was taken in Urdu from the patient. No further cough. Still refuses PEG tube. Last fever 101.4 yesterday at 11:00 at which point pt was tachycardic to 150s; improved since then. Review of Systems Review of Systems: Yes all other systems are reviewed and are negative Physical Exam 2 Vital Signs: Vital Signs: Last Vital Signs Temp 98.1 F 11/21/24 07:57 Pulse 103 H 11/21/24 07:57 Resp 18 11/21/24 07:57 BP 132/79 11/21/24 07:57 Pulse Ox 94 11/21/24 07:57 O2 Del Method Room Air 11/21/24 07:57 O2 Flow Rate 2 11/21/24 03:40 BMI result Body Mass Index 27.3 Gen: paraplegic, severely contracted HEENT: sclera anicteric, moist mucus membranes Neck: supple Lungs: coarse crackles L>R Heart: regular + tachycardic, no murmurs Abd: soft, non-tender, non-distended : suprapubic catheter Ext: no edema Skin: warm/well-perfused Neuro: alert and oriented x3, no focal findings Psych: appropriate affect Objective Data Active Medications Acetaminophen (Acetaminophen 325 Mg Tablet) 650 mg PO Q6H PRN PRN Reason: Pain, Mild 1-3,fever,headache Last Admin: 11/19/24 12:39 Dose: 650 mg Documented By: VINOD Ascorbic Acid (Ascorbic Acid 500 Mg Tablet) 500 mg PO BID [facility] Last Admin: 11/20/24 09:58 Dose: Not Given Documented By: PODMORP Non-Admin Reason: Patient Condition Contraindication Calcium Carbonate (Calcium Carbonate 750 Mg Tab.Chew) 750 mg PO Q4H PRN PRN Reason: Heartburn Cyclobenzaprine HCl (Cyclobenzaprine Hcl 10 Mg Tablet) 10 mg PO TID [facility] Last Admin: 11/20/24 09:58 Dose: Not Given Documented By: DEBORAMORP Non-Admin Reason: Patient Condition Contraindication Enoxaparin Sodium (Enoxaparin Sodium 40 Mg/0.4 Ml Syringe) 40 mg SUBCUT Q24H [facility] Last Admin: 11/21/24 08:00 Dose: 40 mg Documented By: WALKER Lactated Ringer's (Lr) 1,000 mls @ 125 mls/hr IVCONT .Q8H [facility] Last Infusion: 11/21/24 10:14 Dose: 0 mls/hr Documented By: WALKER Nutrition (Parenteral) (Parenteral Nutrition) 1,440 mls @ 60 mls/hr IV .Q24H [facility]; Protocol Stop: 11/21/24 20:59 Last Infusion: 11/21/24 10:29 Dose: 0 mls/hr Documented By: WALKER Vancomycin HCl 1,000 mg/ (Sodium Chloride) 270 mls @ 270 mls/hr IV Q8H [facility] Last Infusion: 11/21/24 08:24 Dose: Infused Documented By: WALKER Cefepime HCl (Maxipime) 2 gm in 50 mls @ 100 mls/hr IV Q8H [facility] Last Admin: 11/21/24 12:19 Dose: 100 mls/hr Documented By: WALKER Methylprednisolone Sodium Succinate 1,000 mg/ Sodium Chloride 66 mls @ 66 mls/hr IV DAILY [facility] Stop: 11/23/24 09:59 Last Infusion: 11/21/24 11:19 Dose: 0 mls/hr Documented By: WALKER Nutrition (Parenteral) (Parenteral Nutrition) 1,920 mls @ 80 mls/hr IV .Q24H [facility]; Protocol Stop: 11/22/24 20:59 Magnesium Hydroxide (Milk Of Magnesia 30 Ml Oral.Susp) 30 ml PO DAILY PRN PRN Reason: Constipation Melatonin (Melatonin 3 Mg Tablet) 6 mg PO BEDTIME PRN PRN Reason: Insomnia Methylprednisolone Sodium Succinate (Methylprednisolone Sod Succ 40 Mg/Ml Vial) 20 mg IVPUSH Q24H [facility] Morphine Sulfate (Morphine Sulfate 2 Mg/Ml Cartridge) 2 mg IVPUSH Q3H PRN; Protocol PRN Reason: Pain, Severe (Pain Scale 7-10) Last Admin: 11/21/24 07:59 Dose: 2 mg Documented By: WALKER Ondansetron HCl (Ondansetron Hcl 4 Mg/2 Ml Vial) 4 mg IVPUSH Q8H PRN PRN Reason: Nausea and Vomiting Oxycodone HCl (Oxycodone Hcl Immed Release 5 Mg Tablet) 5 mg PO Q6H PRN PRN Reason: Pain, Severe (Pain Scale 7-10) Last Admin: 11/19/24 14:43 Dose: 5 mg Documented By: VINOD Pharmacy Consult (Consult Rx Parenteral Nutrition Ordering) 1 each MISCELLANE DAILY PRN PRN Reason: Consult order Pharmacy Consult (Consult Rx Vancomycin Dosing) 1 each MISCELLANE DAILY PRN PRN Reason: Consult order Senna (Sennosides 8.6 Mg Tablet) 17.2 mg PO BEDTIME [facility] Last Admin: 11/19/24 19:51 Dose: 17.2 mg Documented By: BENNETT Sertraline HCl (Sertraline Hcl 50 Mg Tablet) 50 mg PO DAILY [facility] Last Admin: 11/20/24 09:58 Dose: Not Given Documented By: DEBORAMORP Non-Admin Reason: Patient Condition Contraindication Sodium Chloride (0.9 % Sodium Chloride Flush 3 Ml Syringe) 3 ml IVFLUSH QSHIFT [facility] Last Admin: 11/21/24 08:00 Dose: 3 ml Documented By: WALKER Vitamin D (Cholecalciferol (Vitamin D3) 25 Mcg Tablet) 50 mcg PO DAILY [facility] Last Admin: 11/20/24 09:58 Dose: Not Given Documented By: PODMORP Non-Admin Reason: Patient Condition Contraindication Labs 11/21/24 06:27 11/21/24 06:27 Labs: Laboratory Results - last 24 hr 11/20/24 11/21/24 13:06 06:27 MCV 74.8 L MCH 23.7 L MCHC 31.6 RDW 16.5 H Plt Count 275 MPV 13.1 H Absolute Nucleated RBC 0.000 Nucleated RBC % (auto) 0.0 D-Dimer High Sensitivty 394 Anion Gap 11 L Estim Creat Clear Calc 188.8 Estimated GFR > 60 Random Glucose 116 H Calcium 9.0 Phosphorus 2.4 L Magnesium 1.6 Procalcitonin 5.97 CTA chest 11/21/24 No acute pulmonary embolism or aortic dissection. Progressive bibasilar airspace disease [id number] suggesting progressive bilateral pneumonia and/or aspiration. No other changes. Microbiology Microbiology Results: Microbiology 11/18/24 22:04 Urine Culture - Final Urine Other - Suprapubic Trichosporon asahii Enterococcus faecalis 11/18/24 19:25 Blood Culture - Preliminary Blood - Venous No growth after 48 hours. 11/18/24 19:08 Blood Culture - Preliminary Blood - Venous No growth after 48 hours. 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 PCT jay from 0.08 to 5.97; continue to trend - chest percussive therapy for secretions - urine growing Enterococcus faecalis and Trichosporon asahii; colonization? Consult ID dysphagia aspiration - MBSS with gabby aspiration; not safe for POs - pt refuses G-tube. Will discuss with pt and his family/caregivers in person but in meanwhile is on PPN - all PO meds on hold [sertraline, cyclobenzaprine, etc.] NMO/MS or other demyelinating disease - [facility] - Dr Huber consulted; recommend 1g methylprednisolone daily x3 doses 11/21-11/23; was on 20 mg/d prednisone at home hypoK hypoPO4 - replete IV; recheck levels in AM VTE ppx - enoxaparin dispo - TBD In my clinical judgment, the patient requires continued inpatient hospitalization for the following reasons: IV ABX, PPN, PEG tube planning, IV steroids Total time managing care of this patient today: 50 minutes. Quality Stroke Does the patient have a stroke diagnosis?: No VTE Prior VTE?: No VTE Risk Level:: Medical - moderate - high VTE Device Contraindication: Treatment Not Indicated VTE Drug Contraindication: N/A - Med Ordered
[2024-11-21 13:54] LABS: Vancomycin Random 14.5 mcg/mL (15-20)
--- NOTE | 2024-11-21 14:19 | HE.PHANOTE ---
RE HO Patients level came back this morning at 14.5. Patients level/AUC is within therapeutic range. Predicted AUC is 490, trough 15.6 if we were to continue the current dose of 1000 mg Q8H. Will continue as is. Next level is tomorrow 11/22 @1300 to esnure safety vs efficacy. Renal function increased from SCR 0.46 yesterday to 0.52 today
[2024-11-21] MEDS: Potassium Phosphate/NS 15 MMOL/250 ML PLAST..BAG 62.5 MMOL IV (14:30)
[2024-11-21 15:57] VITALS: BP 138/83; PULSE 117; RESP 20; TEMP 36.1; O2SAT 96
[2024-11-21 19:14] VITALS: BP 116/79; PULSE 105; RESP 16; TEMP 36.7; O2SAT 95
[2024-11-21] MEDS: Parenteral Nutrition 1,920 ML 80 ML IV (21:38)
[2024-11-21 23:41] VITALS: BP 120/75; PULSE 92; RESP 18; TEMP 36.2; O2SAT 96
[2024-11-22] VITALS (7 sets, daily range): BP systolic 114–130; BP diastolic 66–91; PULSE 81–110; RESP 14–22; TEMP 36.2–36.4; O2SAT 92–100; BMI 27.3
[2024-11-22] MEDS: vancomycin HCL 1,000 MG in 0.9 % Sodium Chloride 250 ML 270 MG IV ×2 (00:52→10:39)
[2024-11-22] MEDS: 0.9 % Sodium Chloride Flush 3 ML SYRINGE IVFLUSH ×2 (00:52→08:28)
[2024-11-22] MEDS: cefEPime HCl/D5W 2 GM/50 ML PIGGYBACK IV ×2 (02:34→11:53)
[2024-11-22 07:16] LABS: Prothrombin Time 11.9 SEC (10.9-12.4)
[2024-11-22 07:28] LABS: Albumin Level 3.2 g/dL (3.5-5.0); Anion Gap 12 (12-20); Blood Urea Nitrogen 8 mg/dL (9-16); Carbon Dioxide 26 mmol/L (22-29); Chloride 109 mmol/L (96-108); Creatinine Clr Calc Pharmacy 208.9; Estimated Glomerular Filt Rate > 60; Glucose Random 116 mg/dL (60-115); Magnesium 1.9 mg/dL (1.6-2.6); Phosphorus 2.3 mg/dL (2.7-4.5); Potassium 3.4 mmol/L (3.3-5.1); Sodium 144 mmol/L (135-145)
[2024-11-22 07:30] LABS: Hematocrit 35.3 % (42.0-52.0); Hemoglobin 11.3 g/dl (14.0-18.0); Mean Corpuscular Hemoglobin 23.8 pg (27.0-33.0); Mean Corpuscular Volume 74.3 fL (80.0-98.0); PLT CLUMP 1; Red Blood Count 4.75 X10*6/uL (4.60-5.80); Red Cell Distribution Width 16.1 % (11.0-16.0)
[2024-11-22 08:08] LABS: Mean Platelet Volume 12.8 fL (9.4-12.4); Platelet Count 304 X10*3/uL (160-400); White Blood Count 10.8 X10*3/uL (4.8-10.8)
[2024-11-22] MEDS: Morphine Sulfate 2 MG/ML CARTRIDGE IVPUSH ×3 (08:26→21:00)
[2024-11-22] MEDS: Enoxaparin Sodium 40 MG/0.4 ML SYRINGE SUBCUT (08:29)
[2024-11-22] MEDS: methylPREDNISolone Sod Succ 1,000 MG in 0.9 % Sodium Chloride 50 ML 66 MG IV (08:45)
--- NOTE | 2024-11-22 11:50 | MHC.SL.SWA ---
Speech Pathologist Impression: Risk of Aspiration, NPO d/t severity of dysphagia, need for alternative nutrition and DEV MANAGER intervention for pharyngeal strengthening. Oralpharyngeal Dysphagia Risk of Aspiration Due to: Neurological Condition Poor PO Intake Reduced Cognition Dysphasia Diet Status: Recommend continue NPO status at this time due to the severity of patient?s dysphagia and elevated risk of aspiration. GI to assess candidacy for long-term alternate means of nutrition. Liquid Consistency and Strategies for Safe Swallow: Liquid Intake Recommendation: NPO Liquid Intake Strategies: Solid Food Consistency: Dietary Recommendations: NPO Additional Modifications to Solid Foods: Patient with silent aspiration, weak and ineffective cough/throat clear (visualized on MBSS 11/19/2024) Oral Medication Intake: NPO Please contact the pharmacy regarding appropriate crushable or liquid drug formulations that are available whenever modified delivery is recommended. Compensatory Strategies and Precautions to be Taken for Safe Swallow: Sitting Upright (90 deg) Supervision While Eating and Drinking for Safe Swallow: Foods to Avoid: Mixed consistencies. Swallowing Recommended Treatments: Compens. Strategy Educat. Recommendation for Speech: Inpatient Speech Therapy Speech Therapy through [facility] Speech Therapy through Rehab Facility Modified Barium Swallow Study - Inpatient Modified Barium Swallow Study - Outpatient Comment: NPO STRICT. keno terminal operator alternative nutrition indicated at this time d/t nature and severity of pt dysphagia. Skilled ST recommended to be provided upon d/c for pharyngeal strengthening and repeat MBSS when appropriate. Frequency/Duration: Daily Date Range for Service Req: Timeline to reassess: PRN Pump Attendant Clinican/Clinical Fellow: No Supervisory Statement: I have reviewed and agree with the student/clinical fellow's documentation: N/A Speech Language Pathologist: Maral Holman M.S., CCC-DEV MANAGER
--- NOTE | 2024-11-22 12:51 | HO.WOUND ---
Wound Consult: Initial 39yr old?[place] [facility] - See progress notes and H&P for detailed history.? Wound consult placed for Buttock wound.? Patient agreeable to assessment and photo documentation.? Patient reports he has had this area to his buttocks for sometime - he reports his ELECTROLOG OPERATOR at home applys cream every day to the area, he is unsure of the cream in use. See below for photo however the area appears to be chronic MASD - the purple coloring is consistent with chronic MASD and not Pressure injury. The scattered areas are consistent with friction and moisture. Bilateral Buttock Etiology: ?Chronic MASD (Moisture Associated Skin Damage)?Present on Admission Measurements: 8cm x 15cm x 0.1cm Wound Bed: dark pigmented tissue - hyperpigmentation noted - scattered areas of open tissue partial thickness tissue loss - appear to be resolving Drainage / Odor: None Edges: ? mirrored Carmen wound: Intact ? No Induration, Fluctuance or Warmth noted Pain: denies Goals of Treatment: ? Off Load Pressure and barrier cream to allow for continued healing and protect from friction and moisture Recommendations: 1. Turn and Reposition every 2 hours and as needed for patient comfort.? Use pillows or wedges to support off loading positions. 2. Off Load all bony prominences with use of pillows and heel boots if needed.? Apply Preventative foams where needed. ? 3. Monitor for incontinence and moisture control, use barrier creams when needed for prevention and treatment. 4. Provide adequate and supplemental nutrition.? 5. Continue low air loss mattress. 6. When applicable maintain blood glucose levels per Providers order. 7. Buttock - Off Load Pressure with Q2 hr turns and use of pillows - Cleanse with PH balance spray or wipes, pat dry. ?Apply thin layer of Triad to wound bed - only pat and dab no scrub and rub when soiling occurs. Reapply thin layer PRN after each episode of incontinence. Re-consult wound care Nurse for wound deterioration or wound changes.
--- NOTE | 2024-11-22 13:30 | MHC.CLN ---
PT REQUIRES PPN FOR NUTRITION SUPPORT R/T PROLONGED NPO VACUUM SYSTEM TESTER RECOMMENDING NPO REVIEWED LABS DISCUSSED WITH PHARMACY RECOMMEND PPN AT MAX GOAL RATE 100ML/HR WITH 87G LIPIDS TO PROVIDE 2094 TOTAL KCALS (25KCALS/KG), 240G DEXTROSE, 102G PROTEIN (1.2G/KG) NOTED TRIGS 54, REPLETE LYTES NEEDED PT CONTINUES TO REFUSE PEG TUBE AT THIS TIME FOLLOWING WITH TEAM SEE ALSO FULL CLINICAL NUTRITION ASSESSMENT
--- NOTE | 2024-11-22 13:42 | P.PNIM_ITS ---
Subjective Subjective Date of Service: 11/22/24 Interval History: History obtained via content director Complaining of upper extremity discomfort, agreed for G-tube placement. Review of Systems All other system reviewed and are negative. Physical Exam 2 Vital Signs: Vital Signs: Last Vital Signs Temp 97.1 F 11/22/24 11:18 Pulse 98 11/22/24 11:18 Resp 17 11/22/24 11:18 BP 130/78 11/22/24 11:18 Pulse Ox 100 11/22/24 11:18 O2 Del Method Room Air 11/22/24 11:18 O2 Flow Rate 2 11/21/24 03:40 BMI result Body Mass Index 27.3 Const: Other: Gen: paraplegic, severely contracted HEENT: sclera anicteric, moist mucus membranes Neck: supple Lungs: coarse crackles L>R Heart: regular , no murmurs Abd: soft, non-tender, non-distended : suprapubic catheter Ext: no edema Skin: warm/well-perfused Neuro: alert and oriented x3, no focal findings Psych: appropriate affect Objective Data Active Medications Acetaminophen (Acetaminophen 325 Mg Tablet) 650 mg PO Q6H PRN PRN Reason: Pain, Mild 1-3,fever,headache Last Admin: 11/19/24 12:39 Dose: 650 mg Documented By: VINOD Ascorbic Acid (Ascorbic Acid 500 Mg Tablet) 500 mg PO BID [facility] Last Admin: 11/20/24 09:58 Dose: Not Given Documented By: PODMORP Non-Admin Reason: Patient Condition Contraindication Calcium Carbonate (Calcium Carbonate 750 Mg Tab.Chew) 750 mg PO Q4H PRN PRN Reason: Heartburn Cyclobenzaprine HCl (Cyclobenzaprine Hcl 10 Mg Tablet) 10 mg PO TID [facility] Last Admin: 11/20/24 09:58 Dose: Not Given Documented By: PODMORP Non-Admin Reason: Patient Condition Contraindication Enoxaparin Sodium (Enoxaparin Sodium 40 Mg/0.4 Ml Syringe) 40 mg SUBCUT Q24H [facility] Last Admin: 11/22/24 08:29 Dose: 40 mg Documented By: TYSON Cefepime HCl (Maxipime) 2 gm in 50 mls @ 100 mls/hr IV Q8H [facility] Last Infusion: 11/22/24 12:25 Dose: Infused Documented By: TYSON Methylprednisolone Sodium Succinate 1,000 mg/ Sodium Chloride 66 mls @ 66 mls/hr IV DAILY [facility] Stop: 11/23/24 09:59 Last Infusion: 11/22/24 09:45 Dose: Infused Documented By: TYSON Nutrition (Parenteral) (Parenteral Nutrition) 1,920 mls @ 80 mls/hr IV .Q24H [facility]; Protocol Stop: 11/22/24 20:59 Last Admin: 11/21/24 21:38 Dose: 80 mls/hr Documented By: MOISES Vancomycin HCl 1,000 mg/ (Sodium Chloride) 270 mls @ 270 mls/hr IV Q8H [facility] Last Infusion: 11/22/24 11:39 Dose: Infused Documented By: TYSON Nutrition (Parenteral) (Parenteral Nutrition) 2,400 mls @ 100 mls/hr IV .Q24H [facility]; Protocol Stop: 11/23/24 20:59 Magnesium Hydroxide (Milk Of Magnesia 30 Ml Oral.Susp) 30 ml PO DAILY PRN PRN Reason: Constipation Melatonin (Melatonin 3 Mg Tablet) 6 mg PO BEDTIME PRN PRN Reason: Insomnia Methylprednisolone Sodium Succinate (Methylprednisolone Sod Succ 40 Mg/Ml Vial) 20 mg IVPUSH Q24H [facility] Morphine Sulfate (Morphine Sulfate 2 Mg/Ml Cartridge) 2 mg IVPUSH Q3H PRN; Protocol PRN Reason: Pain, Severe (Pain Scale 7-10) Last Admin: 11/22/24 12:01 Dose: 2 mg Documented By: TYSON Ondansetron HCl (Ondansetron Hcl 4 Mg/2 Ml Vial) 4 mg IVPUSH Q8H PRN PRN Reason: Nausea and Vomiting Oxycodone HCl (Oxycodone Hcl Immed Release 5 Mg Tablet) 5 mg PO Q6H PRN PRN Reason: Pain, Severe (Pain Scale 7-10) Last Admin: 11/19/24 14:43 Dose: 5 mg Documented By: VINOD Pharmacy Consult (Consult Rx Parenteral Nutrition Ordering) 1 each MISCELLANE DAILY PRN PRN Reason: Consult order Pharmacy Consult (Consult Rx Vancomycin Dosing) 1 each MISCELLANE DAILY PRN PRN Reason: Consult order Senna (Sennosides 8.6 Mg Tablet) 17.2 mg PO BEDTIME [facility] Last Admin: 11/19/24 19:51 Dose: 17.2 mg Documented By: BENNETT Sertraline HCl (Sertraline Hcl 50 Mg Tablet) 50 mg PO DAILY [facility] Last Admin: 11/20/24 09:58 Dose: Not Given Documented By: PODMORP Non-Admin Reason: Patient Condition Contraindication Sodium Chloride (0.9 % Sodium Chloride Flush 3 Ml Syringe) 3 ml IVFLUSH QSHIFT [facility] Last Admin: 11/22/24 08:28 Dose: 3 ml Documented By: TYSON Vitamin D (Cholecalciferol (Vitamin D3) 25 Mcg Tablet) 50 mcg PO DAILY [facility] Last Admin: 11/20/24 09:58 Dose: Not Given Documented By: PODMORP Non-Admin Reason: Patient Condition Contraindication Labs 11/22/24 06:19 11/22/24 06:19 Labs: Laboratory Results - last 24 hr 11/18/24 11/18/24 11/18/24 19:05 19:08 20:00 MCV 75.9 L MCH 24.1 L MCHC 31.7 RDW 16.9 H Plt Count 339 D MPV 12.4 Immature Gran % (Auto) 0.4 Neut % (Auto) 84.3 H Lymph % (Auto) 4.0 L Power % (Auto) 10.8 Eos % (Auto) 0.2 Baso % (Auto) 0.3 Lymph # (Auto) 0.8 L Power # (Auto) 2.0 H Eos # (Auto) 0.0 Baso # (Auto) 0.1 Abs Immat Gran (auto) 0.08 H Absolute Neuts (auto) 15.8 H Absolute Nucleated RBC 0.000 Nucleated RBC % (auto) 0.0 Smear Tech's Comments VERIFIED Hold Purple Top SEE NOTE PT INR Anion Gap 16 Estim Creat Clear Calc 160.9 Estimated GFR > 60 Random Glucose 98 Lactic Acid 1.6 Calcium 9.9 D Phosphorus Magnesium 1.9 Total Bilirubin 0.4 AST 19 ALT 9 Alkaline Phosphatase 72 Troponin I High Sens 3.6 C-Reactive Protein Total Protein 8.1 H Albumin 4.1 Procalcitonin Urine Color Yellow Urine Appearance Cloudy Urine pH 6.5 Ur Specific [place] >= 1.030 H Urine Protein 300 (3+) H Urine Glucose (UA) Negative Urine Ketones >=80 Urine Blood Large (3+) H Urine Nitrite Negative Ur Leukocyte Esterase Small (1+) H Urine RBC 11-20 H Urine WBC >50 Urine WBC Clumps Present Ur Squamous Epith Cells 0-2 Urine Bacteria None Seen Hyaline Casts 3-5 WBC Casts Present Urine Yeast Present Random Vancomycin Influenza Type A (PCR) NEGATIVE Influenza Type B (PCR) NEGATIVE RSV RNA Qual (PCR) NEGATIVE SARS-CoV-2 RNA (RT-PCR) NEGATIVE 11/19/24 11/21/24 11/22/24 06:50 12:57 06:19 MCV 74.3 L MCH 23.8 L MCHC 32.0 RDW 16.1 H Plt Count 304 MPV 12.8 H Immature Gran % (Auto) Neut % (Auto) Lymph % (Auto) Power % (Auto) Eos % (Auto) Baso % (Auto) Lymph # (Auto) Power # (Auto) Eos # (Auto) Baso # (Auto) Abs Immat Gran (auto) Absolute Neuts (auto) Absolute Nucleated RBC 0.000 Nucleated RBC % (auto) 0.0 Smear Tech's Comments Hold Purple Top PT 11.9 INR 1.0 Anion Gap 17 12 Estim Creat Clear Calc 228.3 208.9 Estimated GFR > 60 > 60 Random Glucose 86 116 H Lactic Acid Calcium 8.6 D 9.0 Phosphorus 2.3 L Magnesium 1.9 Total Bilirubin AST ALT Alkaline Phosphatase Troponin I High Sens C-Reactive Protein 11.77 H Total Protein Albumin 3.2 L Procalcitonin 0.08 Urine Color Urine Appearance Urine pH Ur Specific [place] Urine Protein Urine Glucose (UA) Urine Ketones Urine Blood Urine Nitrite Ur Leukocyte Esterase Urine RBC Urine WBC Urine WBC Clumps Ur Squamous Epith Cells Urine Bacteria Hyaline Casts WBC Casts Urine Yeast Random Vancomycin 14.5 L Influenza Type A (PCR) Influenza Type B (PCR) RSV RNA Qual (PCR) SARS-CoV-2 RNA (RT-PCR) Microbiology Microbiology Results: Microbiology 11/18/24 22:04 Urine Culture - Final Urine Other - Suprapubic Trichosporon asahii Enterococcus faecalis Assessment and Plan (1) Demyelinating disease: Status: Acute (2) Sepsis: Status: Acute (3) Acute UTI: Status: Acute Plan 39yo M with 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 PCT jay from 0.08 to 5.97, will follow PCT - chest percussive therapy for secretions/suctioning as needed - urine growing Enterococcus faecalis and Trichosporon asahii; colonization? Recent urine culture October 21 grew E coli and Trichosporon asahii - ID consult pending dysphagia/aspiration - MBSS with gabby aspiration; not safe for POs - patient agreed for G-tube, will consult General surgery, continue IV PPN, all by mouth meds on hold due to dysphagia NMO/MS or other demyelinating disease -seen by neurologist Dr. Huber he recommend 1g methylprednisolone daily x3 doses 11/21-11/23; was on 20 mg/d prednisone at home hypoK/ hypoPO4 phosphorus remains low 2.3, will repeat K-Phos and follow phosphorus level VTE ppx - enoxaparin dispo - TBD In my clinical judgment, the patient requires continued inpatient hospitalization for the following reasons: IV ABX, PPN, PEG tube planning, IV steroids Quality Stroke Does the patient have a stroke diagnosis?: No VTE Prior VTE?: No VTE Risk Level:: Medical - moderate - high VTE Device Contraindication: Treatment Not Indicated VTE Drug Contraindication: N/A - Med Ordered
[2024-11-22] MEDS: Acetaminophen 1,000 MG/100 ML PIGGYBACK 400 MG IV ×2 (14:24→21:01)
--- NOTE | 2024-11-22 14:45 | P.CONGS_ITS ---
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 He was also found to have pneumonia likely due to aspiration. He had a modified barium swallow which showed gabby aspiration, seen by speech who recommended NPO status due to severity of dysphagia and need for alternative route for nutrition. He is currently on PPN. General surgery was consulted for feeding tube placement. He reports a history of umbilical hernia repair. 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 Microcytic anemia Multiple sclerosis Headache <Loren Waters PA-C Last Filed: 11/22/24 14:57> Family History Family History: Family History Other No family history of coronary artery disease <HUI Shaw Last Filed: 11/22/24 14:57> Surgical History Surgical History: Surgical History H/O hernia repair <HUI Shaw Last Filed: 11/22/24 14:57> Social History Social History: Social History Household Members: Family Household Members Other:: parents Housing: Apartment 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 have visiting nurse or other home services: Yes Unable to assess alcohol history related to: Unknown Alcohol intake: never Patient Tobacco Use Status: Former Tobacco user Tobacco use type: Cigarette Cigarettes Per Day: 0.25 Substance Use Type: Marijuana Advance Directives Date on File: 08/21/22 service: No Current occupational status: disabled <Loren Waters PA-C - Last Filed: 11/22/24 14:57> Meds Allergies/Adverse reactions: Allergies Allergy/AdvReac Type Severity Reaction Status Date / Time doxycycline Allergy Rash Verified 11/18/24 18:53 <Loren Waters PA-C - Last Filed: 11/22/24 14:57> Active Medications: Current Medications Ascorbic Acid (Ascorbic Acid 500 Mg Tablet) 500 mg PO BID [facility] Last Admin: 11/20/24 09:58 Dose: Not Given Calcium Carbonate (Calcium Carbonate 750 Mg Tab.Chew) 750 mg PO Q4H PRN PRN Reason: Heartburn Cyclobenzaprine HCl (Cyclobenzaprine Hcl 10 Mg Tablet) 10 mg PO TID [facility] Last Admin: 11/20/24 09:58 Dose: Not Given Enoxaparin Sodium (Enoxaparin Sodium 40 Mg/0.4 Ml Syringe) 40 mg SUBCUT Q24H [facility] Last Admin: 11/22/24 08:29 Dose: 40 mg Cefepime HCl (Maxipime) 2 gm in 50 mls @ 100 mls/hr IV Q8H [facility] Last Infusion: 11/22/24 12:25 Dose: Infused Methylprednisolone Sodium Succinate 1,000 mg/ Sodium Chloride 66 mls @ 66 mls/hr IV DAILY [facility] Stop: 11/23/24 09:59 Last Infusion: 11/22/24 09:45 Dose: Infused Nutrition (Parenteral) (Parenteral Nutrition) 1,920 mls @ 80 mls/hr IV .Q24H [facility]; Protocol Stop: 11/22/24 20:59 Last Admin: 11/21/24 21:38 Dose: 80 mls/hr Vancomycin HCl 1,000 mg/ (Sodium Chloride) 270 mls @ 270 mls/hr IV Q8H [facility] Last Infusion: 11/22/24 11:39 Dose: Infused Nutrition (Parenteral) (Parenteral Nutrition) 2,400 mls @ 100 mls/hr IV .Q24H [facility]; Protocol Stop: 11/23/24 20:59 Acetaminophen (Ofirmev) 1,000 mg in 100 mls @ 400 mls/hr IV Q6H [facility] Stop: 11/24/24 13:59 Last Admin: 11/22/24 14:24 Dose: 400 mls/hr Potassium Phosphate (Kphos) 15 mmol in 250 mls @ 62.5 mls/hr IV Q4H [facility] Stop: 11/22/24 21:59 Magnesium Hydroxide (Milk Of Magnesia 30 Ml Oral.Susp) 30 ml PO DAILY PRN PRN Reason: Constipation Melatonin (Melatonin 3 Mg Tablet) 6 mg PO BEDTIME PRN PRN Reason: Insomnia Methylprednisolone Sodium Succinate (Methylprednisolone Sod Succ 40 Mg/Ml Vial) 20 mg IVPUSH Q24H [facility] Morphine Sulfate (Morphine Sulfate 2 Mg/Ml Cartridge) 2 mg IVPUSH Q3H PRN; Protocol PRN Reason: Pain, Severe (Pain Scale 7-10) Last Admin: 11/22/24 12:01 Dose: 2 mg Ondansetron HCl (Ondansetron Hcl 4 Mg/2 Ml Vial) 4 mg IVPUSH Q8H PRN PRN Reason: Nausea and Vomiting Oxycodone HCl (Oxycodone Hcl Immed Release 5 Mg Tablet) 5 mg PO Q6H PRN PRN Reason: Pain, Severe (Pain Scale 7-10) Last Admin: 11/19/24 14:43 Dose: 5 mg Pharmacy Consult (Consult Rx Parenteral Nutrition Ordering) 1 each MISCELLANE DAILY PRN PRN Reason: Consult order Pharmacy Consult (Consult Rx Vancomycin Dosing) 1 each MISCELLANE DAILY PRN PRN Reason: Consult order Senna (Sennosides 8.6 Mg Tablet) 17.2 mg PO BEDTIME [facility] Last Admin: 11/19/24 19:51 Dose: 17.2 mg Sertraline HCl (Sertraline Hcl 50 Mg Tablet) 50 mg PO DAILY [facility] Last Admin: 11/20/24 09:58 Dose: Not Given Sodium Chloride (0.9 % Sodium Chloride Flush 3 Ml Syringe) [facility] Last Admin: 11/22/24 08:28 Dose: 3 ml Vitamin D (Cholecalciferol (Vitamin D3) 25 Mcg Tablet) 50 mcg PO DAILY [facility] Last Admin: 11/20/24 09:58 Dose: Not Given <HUI Shaw Last Filed: 11/22/24 14:57> Home medications: Home Medications ?Medication ?Instructions ?Recorded ?Confirmed ?Last Taken ?Type sertraline 50 mg tablet 50 mg PO DAILY 02/22/24 11/19/24 10/10/24 History clindamycin phosphate 1 % lotion 1 appl topical BID 09/10/24 11/19/24 10/10/24 History cholecalciferol (vitamin D3) 50 50 mcg PO DAILY 10/11/24 11/19/24 10/10/24 History mcg (2,000 unit) capsule (Vitamin D3) clotrimazole-betamethasone 1 1 appl topical BID 10/11/24 11/19/24 10/10/24 History %-0.05 % topical cream cyclobenzaprine 10 mg tablet 10 mg PO TID 10/11/24 11/19/24 10/10/24 History acetaminophen 500 mg tablet 500 mg PO Q6H PRN mild pain 10/21/24 11/19/24 Unknown History prednisone 20 mg tablet 20 mg PO DAILY 10/21/24 11/19/24 Unknown History <HUI Shaw Last Filed: 11/22/24 14:57> Physical Exam 2 Vital Signs: Vital Signs: Last Vital Signs Temp 97.1 F 11/22/24 11:18 Pulse 98 11/22/24 11:18 Resp 17 11/22/24 11:18 BP 130/78 11/22/24 11:18 Pulse Ox 100 11/22/24 11:18 O2 Del Method Room Air 11/22/24 11:18 O2 Flow Rate 2 11/21/24 03:40 BMI result Body Mass Index 27.3 <HUI Shaw Last Filed: 11/22/24 14:57> Const: General: comfortable, no acute distress and alert <HUI Shaw Last Filed: 11/22/24 14:57> Resp: Effort & Inspection: normal respiratory effort, not tachypneic and no use of accessory muscles <HUI Shaw Last Filed: 11/22/24 14:57> GI: Inspection: Yes normal to inspection and No distended <Loren Waters PA-C - Last Filed: 11/22/24 14:57> Palpation (GI): Soft to palpation, nontender and no guarding <HUI Shaw Last Filed: 11/22/24 14:57> Percussion: Yes normal to percussion <HUI Shaw Last Filed: 11/22/24 14:57> Skin: General skin exam: no rashes or lesions noted <HUI Shaw Last Filed: 11/22/24 14:57> Results Labs Result diagrams: 11/22/24 06:19 11/23/24 06:21 <HUI Shaw Last Filed: 11/22/24 14:57> Labs: Abnormal lab results 11/18/24 11/18/24 11/19/24 Range/Units 19:08 20:00 06:50 WBC 18.7 H 18.6 H (4.8-10.8) X10*3/uL Hgb 12.9 L 11.9 L (14.0-18.0) g/dl Hct 40.7 L 37.0 L (42.0-52.0) % MCV 75.9 L 74.6 L (80.0-98.0) fL MCH 24.1 L 24.0 L (27.0-33.0) pg RDW 16.9 H 16.4 H (11.0-16.0) % MPV (9.4-12.4) fL Neut % (Auto) 84.3 H (45-73) % Lymph % (Auto) 4.0 L (20-40) % Lymph # (Auto) 0.8 L (1.2-4.9) X10*3/uL [place] # (Auto) 2.0 H (0.1-1.2) X10*3/uL Abs Immat Gran (auto) 0.08 H (0.00-0.03) X10*3/uL Absolute Neuts (auto) 15.8 H (2.0-8.3) x10*3/uL Neutrophils % (Manual) 83 H (45-73) % Lymphocytes % (Manual) 9 L (20-40) % Abs Neuts (Manual) 16.0 H (2.0-8.3) X10*3/uL Chloride (96-108) mmol/L BUN 8 L 4 L (9-16) mg/dL Creatinine 0.43 L (0.5-1.4) mg/dL Random Glucose (60-115) mg/dL Phosphorus (2.7-4.5) mg/dL C-Reactive Protein 11.77 H (< or = 0.50) mg/dL Total Protein 8.1 H (6.5-8.0) g/dL Albumin (3.5-5.0) g/dL Ur Specific [place] >= 1.030 H (1.005-1.025) Urine Protein 300 (3+) H (Neg-Trace) mg/dL Urine Blood Large (3+) H (Negative) Ur Leukocyte Esterase Small (1+) H (Negative) Urine RBC 11-20 H (0-2) /HPF 11/22/24 Range/Units 06:19 WBC (4.8-10.8) X10*3/uL Hgb 11.3 L (14.0-18.0) g/dl Hct 35.3 L (42.0-52.0) % MCV 74.3 L (80.0-98.0) fL MCH 23.8 L (27.0-33.0) pg RDW 16.1 H (11.0-16.0) % MPV 12.8 H (9.4-12.4) fL Neut % (Auto) (45-73) % Lymph % (Auto) (20-40) % Lymph # (Auto) (1.2-4.9) X10*3/uL [place] # (Auto) (0.1-1.2) X10*3/uL Abs Immat Gran (auto) (0.00-0.03) X10*3/uL Absolute Neuts (auto) (2.0-8.3) x10*3/uL Neutrophils % (Manual) (45-73) % Lymphocytes % (Manual) (20-40) % Abs Neuts (Manual) (2.0-8.3) X10*3/uL Chloride 109 H (96-108) mmol/L BUN 8 L (9-16) mg/dL Creatinine 0.47 L (0.5-1.4) mg/dL Random Glucose 116 H (60-115) mg/dL Phosphorus 2.3 L (2.7-4.5) mg/dL C-Reactive Protein (< or = 0.50) mg/dL Total Protein (6.5-8.0) g/dL Albumin 3.2 L (3.5-5.0) g/dL Ur Specific [place] (1.005-1.025) Urine Protein (Neg-Trace) mg/dL Urine Blood (Negative) Ur Leukocyte Esterase (Negative) Urine RBC (0-2) /HPF Short CBC 11/18/24 11/19/24 11/22/24 Range/Units 19:08 06:50 06:19 WBC 18.7 H 18.6 H 10.8 (4.8-10.8) X10*3/uL Hgb 12.9 L 11.9 L 11.3 L (14.0-18.0) g/dl Hct 40.7 L 37.0 L 35.3 L (42.0-52.0) % Plt Count 339 D 257 304 (160-400) X10*3/uL BMP 11/18/24 11/19/24 11/22/24 19:08 06:50 06:19 Sodium 138 139 144 Potassium 3.6 3.7 3.4 Chloride 99 104 109 H Carbon Dioxide 27 22 26 BUN 8 L 4 L 8 L Creatinine 0.61 0.43 L 0.47 L Calcium 9.9 D 8.6 D 9.0 Liver Function 11/18/24 11/22/24 Range/Units 19:08 06:19 Total Bilirubin 0.4 (0.0-1.0) mg/dL AST 19 (5-37) U/L ALT 9 (0-40) U/L Alkaline Phosphatase 72 (39-117) U/L Albumin 4.1 3.2 L (3.5-5.0) g/dL Urine 11/18/24 Range/Units 20:00 Urine Color Yellow Urine Appearance Cloudy Urine pH 6.5 (5.0-9.0) Ur Specific [place] >= 1.030 H (1.005-1.025) Urine Protein 300 (3+) H (Neg-Trace) mg/dL Urine Glucose (UA) Negative (Negative) mg/dL All other labs normal. 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 CT abd pelvis reviewed. We did discuss proceeding with percutaneous endoscopic gastrostomy tube placement as a means of nutrition and he has been tenatively scheduled for Friday. He however is currently refusing the feeding tube placement. Will continue to follow. <Loren Waters PA-C - Last Filed: 11/22/24 14:57> Procedures Date of Service Date of Service: 11/22/24 <Loren Waters PA-C - Last Filed: 11/22/24 14:57> 11/23/24 <Real Arias MD - Last Filed: 11/23/24 13:08>
[2024-11-22] MEDS: Potassium Phosphate/NS 15 MMOL/250 ML PLAST..BAG 62.5 MMOL IV ×2 (14:48→19:13)
[2024-11-22 16:35] LABS: Vancomycin Random 12.8 mcg/mL (15-20)
[2024-11-22] MEDS: Linezolid/D5W 600 MG/300 ML PIGGYBACK 300 MG IV (17:23)
[2024-11-22] MEDS: Parenteral Nutrition 2,400 ML 100 ML IV (21:01)
[2024-11-23 04:00] VITALS: BP 125/80; PULSE 76; RESP 18; TEMP 36.3; O2SAT 100
[2024-11-23] MEDS: Linezolid/D5W 600 MG/300 ML PIGGYBACK 300 MG IV ×2 (04:07→16:27)
[2024-11-23] MEDS: Acetaminophen 1,000 MG/100 ML PIGGYBACK 400 MG IV ×3 (05:32→19:46)
[2024-11-23 06:49] LABS: Albumin Level 3.3 g/dL (3.5-5.0); Anion Gap 11 (12-20); Blood Urea Nitrogen 8 mg/dL (9-16); Calcium 8.9 mg/dL (8.4-10.2); Carbon Dioxide 27 mmol/L (22-29); Chloride 108 mmol/L (96-108); Creatinine Clr Calc Pharmacy 200.3; Estimated Glomerular Filt Rate > 60; Glucose Random 163 mg/dL (60-115); Magnesium 2.2 mg/dL (1.6-2.6); Phosphorus 3.2 mg/dL (2.7-4.5); Potassium 4.1 mmol/L (3.3-5.1); Sodium 142 mmol/L (135-145)
[2024-11-23 08:00] VITALS: BP 139/70; PULSE 87; RESP 18; TEMP 36.6; O2SAT 97
[2024-11-23] MEDS: methylPREDNISolone Sod Succ 1,000 MG in 0.9 % Sodium Chloride 50 ML 66 MG IV (09:02)
[2024-11-23] MEDS: Enoxaparin Sodium 40 MG/0.4 ML SYRINGE SUBCUT (09:02)
[2024-11-23] MEDS: Morphine Sulfate 2 MG/ML CARTRIDGE IVPUSH (09:05)
[2024-11-23 11:36] VITALS: BP 134/77; PULSE 88; RESP 20; TEMP 36.4; O2SAT 94
--- NOTE | 2024-11-23 11:49 | MHC.CLN ---
F/U REVIEWED LABS DISCUSSED WITH PHARMACY CONTINUE PPN AT MAX GOAL RATE 100ML/HR WITH 87G LIPIDS TO PROVIDE 2094 TOTAL KCALS (25KCALS/KG), 240G DEXTROSE, 102G PROTEIN (1.2G/KG) REPLETE LYTES NEEDED POSSIBLE PEG TUBE PLACEMENT ON FRIDAY
--- NOTE | 2024-11-23 13:05 | P.PNGS_ITS ---
Subjective Subjective Date of Service: 11/23/24 Interval history: No events reported No new complaints Physical Exam 2 Vital Signs: Vital Signs: Last Vital Signs Temp 97.6 F 11/23/24 11:36 Pulse 88 11/23/24 11:36 Resp 20 11/23/24 11:36 BP 134/77 11/23/24 11:36 Pulse Ox 94 11/23/24 11:36 O2 Del Method Room Air 11/23/24 11:36 O2 Flow Rate 2 11/21/24 03:40 BMI result Body Mass Index 27.3 Const: Other: Answers questions although with significant difficulty with speaking due to neurologic condition General: no acute distress Resp: Effort & Inspection: normal respiratory effort Cardio: Rate: regular rate GI: Other: No surgical scars on the upper abdomen Palpation (GI): Soft to palpation, not firm and no guarding Objective Data Active Medications Ascorbic Acid (Ascorbic Acid 500 Mg Tablet) 500 mg PO BID [facility] Last Admin: 11/20/24 09:58 Dose: Not Given Documented By: DEBORAMORP Non-Admin Reason: Patient Condition Contraindication Calcium Carbonate (Calcium Carbonate 750 Mg Tab.Chew) 750 mg PO Q4H PRN PRN Reason: Heartburn Cyclobenzaprine HCl (Cyclobenzaprine Hcl 10 Mg Tablet) 10 mg PO TID [facility] Last Admin: 11/20/24 09:58 Dose: Not Given Documented By: JAIMIE Non-Admin Reason: Patient Condition Contraindication Enoxaparin Sodium (Enoxaparin Sodium 40 Mg/0.4 Ml Syringe) 40 mg SUBCUT Q24H [facility] Last Admin: 11/23/24 09:02 Dose: 40 mg Documented By: TYSON Nutrition (Parenteral) (Parenteral Nutrition) 2,400 mls @ 100 mls/hr IV .Q24H [facility]; Protocol Stop: 11/23/24 20:59 Last Admin: 11/22/24 21:01 Dose: 100 mls/hr Documented By: MOISES Linezolid (Zyvox/D5w) 600 mg in 300 mls @ 300 mls/hr IV Q12H [facility] Last Infusion: 11/23/24 05:07 Dose: Infused Documented By: TYSON Acetaminophen (Ofirmev) 1,000 mg in 100 mls @ 400 mls/hr IV Q6H [facility] Stop: 11/24/24 17:59 Last Infusion: 11/23/24 12:01 Dose: Infused Documented By: TYSON Nutrition (Parenteral) (Parenteral Nutrition) 2,400 mls @ 100 mls/hr IV .Q24H [facility]; Protocol Stop: 11/24/24 20:59 Magnesium Hydroxide (Milk Of Magnesia 30 Ml Oral.Susp) 30 ml PO DAILY PRN PRN Reason: Constipation Melatonin (Melatonin 3 Mg Tablet) 6 mg PO BEDTIME PRN PRN Reason: Insomnia Methylprednisolone Sodium Succinate (Methylprednisolone Sod Succ 40 Mg/Ml Vial) 20 mg IVPUSH Q24H [facility] Morphine Sulfate (Morphine Sulfate 2 Mg/Ml Cartridge) 2 mg IVPUSH Q3H PRN; Protocol PRN Reason: Pain, Severe (Pain Scale 7-10) Last Admin: 11/23/24 09:05 Dose: 2 mg Documented By: TYSON Ondansetron HCl (Ondansetron Hcl 4 Mg/2 Ml Vial) 4 mg IVPUSH Q8H PRN PRN Reason: Nausea and Vomiting Oxycodone HCl (Oxycodone Hcl Immed Release 5 Mg Tablet) 5 mg PO Q6H PRN PRN Reason: Pain, Severe (Pain Scale 7-10) Last Admin: 11/19/24 14:43 Dose: 5 mg Documented By: VINOD Pharmacy Consult (Consult Rx Parenteral Nutrition Ordering) 1 each MISCELLANE DAILY PRN PRN Reason: Consult order Senna (Sennosides 8.6 Mg Tablet) 17.2 mg PO BEDTIME [facility] Last Admin: 11/19/24 19:51 Dose: 17.2 mg Documented By: BENNETT Sertraline HCl (Sertraline Hcl 50 Mg Tablet) 50 mg PO DAILY [facility] Last Admin: 11/20/24 09:58 Dose: Not Given Documented By: DEBORAMORP Non-Admin Reason: Patient Condition Contraindication Sodium Chloride (0.9 % Sodium Chloride Flush 3 Ml Syringe) 3 ml IVFLUSH QSHIFT [facility] Last Admin: 11/23/24 08:58 Dose: Not Given Documented By: TYSON Non-Admin Reason: IV Running Vitamin D (Cholecalciferol (Vitamin D3) 25 Mcg Tablet) 50 mcg PO DAILY [facility] Last Admin: 11/20/24 09:58 Dose: Not Given Documented By: JAIMIE Non-Admin Reason: Patient Condition Contraindication Labs 11/22/24 06:19 11/23/24 06:21 Labs: Laboratory Results - last 24 hr 11/19/24 11/19/24 11/19/24 06:50 14:57 15:04 MCV 74.6 L MCH 24.0 L MCHC 32.2 RDW 16.4 H Plt Count 257 MPV 12.0 Immature Gran % (Auto) Cancelled Neut % (Auto) Cancelled Lymph % (Auto) Cancelled [place] % (Auto) Cancelled Eos % (Auto) Cancelled Baso % (Auto) Cancelled Lymph # (Auto) Cancelled [place] # (Auto) Cancelled Eos # (Auto) Cancelled Baso # (Auto) Cancelled Abs Immat Gran (auto) Cancelled Absolute Neuts (auto) Cancelled Absolute Nucleated RBC 0.000 Nucleated RBC % (auto) 0.0 Neutrophils % (Manual) 83 H Band Neutrophils % 3 Lymphocytes % (Manual) 9 L Monocytes % (Manual) 4 Metamyelocytes % 1 Abs Neuts (Manual) 16.0 H Lymphocytes # (Manual) 1.7 Monocytes # (Manual) 0.7 Metamyelocytes # 0.2 Platelet Estimate NORMAL Large Platelets PRESENT Plt Morphology Comment NOTED RBC Morphology NOTED Hypochromasia 1+ (5-14) Anion Gap 17 Estim Creat Clear Calc 228.3 Estimated GFR > 60 POC Glucose Random Glucose 86 Lactic Acid 0.9 Calcium 8.6 D Phosphorus Magnesium C-Reactive Protein 11.77 H Albumin Procalcitonin 0.08 Nasal Screen MRSA (PCR) POSITIVE A Nasal S. aureus Screen POSITIVE A Nasal MRSA/S.aureus Interp SEE NOTE Random Vancomycin Respiratory Panel Caceres See Note Adenovirus (Rapid PCR) Not Detected B.pert (TEM-PCR) Not Detected B.parapertussis DNA PCR Not Detected C. pneumoniae DNA (PCR) Not Detected Coronavirus OC43 (PCR) Not Detected Coronavirus HKU1 (PCR) Not Detected Coronavirus 229E (PCR) Not Detected Coronavirus NL63 (PCR) Not Detected Human Metapneumovir PCR Not Detected Influenza A (RT-PCR) Not Detected Influenza B (RT-PCR) Not Detected M. pneumoniae (PCR) Not Detected Parainfluenza 1 (PCR) Not Detected Parainfluenza 2 (PCR) Not Detected Parainfluenza 3 (PCR) Not Detected Parainfluenza 4 (PCR) Not Detected RSV (PCR) Not Detected Entero/Rhino (PCR) Not Detected SARS-CoV-2 RNA (RT-PCR) Not Detected 11/19/24 11/22/24 11/23/24 17:31 15:36 06:21 MCV MCH MCHC RDW Plt Count MPV Immature Gran % (Auto) Neut % (Auto) Lymph % (Auto) [place] % (Auto) Eos % (Auto) Baso % (Auto) Lymph # (Auto) [place] # (Auto) Eos # (Auto) Baso # (Auto) Abs Immat Gran (auto) Absolute Neuts (auto) Absolute Nucleated RBC Nucleated RBC % (auto) Neutrophils % (Manual) Band Neutrophils % Lymphocytes % (Manual) Monocytes % (Manual) Metamyelocytes % Abs Neuts (Manual) Lymphocytes # (Manual) Monocytes # (Manual) Metamyelocytes # Platelet Estimate Large Platelets Plt Morphology Comment RBC Morphology Hypochromasia Anion Gap 11 L Estim Creat Clear Calc 200.3 Estimated GFR > 60 POC Glucose 114 Random Glucose 163 H Lactic Acid Calcium 8.9 Phosphorus 3.2 Magnesium 2.2 C-Reactive Protein Albumin 3.3 L Procalcitonin Nasal Screen MRSA (PCR) Nasal S. aureus Screen Nasal MRSA/S.aureus Interp Random Vancomycin 12.8 L Respiratory Panel Caceres Adenovirus (Rapid PCR) B.pert (TEM-PCR) B.parapertussis DNA PCR C. pneumoniae DNA (PCR) Coronavirus OC43 (PCR) Coronavirus HKU1 (PCR) Coronavirus 229E (PCR) Coronavirus NL63 (PCR) Human Metapneumovir PCR Influenza A (RT-PCR) Influenza B (RT-PCR) M. pneumoniae (PCR) Parainfluenza 1 (PCR) Parainfluenza 2 (PCR) Parainfluenza 3 (PCR) Parainfluenza 4 (PCR) RSV (PCR) Entero/Rhino (PCR) SARS-CoV-2 RNA (RT-PCR) Procedures Date of Service Date of Service: 11/23/24 Progress Note: A&P Assessment and plan (1) Dysphagia: Status: Acute Assessment and Plan: He has dysphagia with recurrent aspiration likely due to his MS I reviewed with him the option of proceeding with PEG tube placement I explained the risks including but not limited to bleeding, infections, injury to other organs including bowel, loss of airway, tube leak or dislodgement He has agreed to proceed He is on the schedule for PEG tube placement for tomorrow An air plant engineer was used during the entire discussion Time Spent With Patient Time: Total time managing care of this patient today ____ minutes. Quality Stroke Does the patient have a stroke diagnosis?: No VTE Prior VTE?: No VTE Risk Level:: Medical - moderate - high VTE Device Contraindication: Treatment Not Indicated VTE Drug Contraindication: N/A - Med Ordered
--- NOTE | 2024-11-23 14:17 | P.CDIM_ITS ---
PROVIDER RESPONSE TEXT: To clarify, the appropriate diagnosis supported by the clinical indicators: Yes, UTI is related to / associated with / due to suprapubic catheter QUERY TEXT: PHYSICIAN'S DOCUMENTATION REQUEST Date of Query: 11/23/2024 01:36 PM EST Patient Name: Justus Burr Admit Date: 11/19/2024 Dear Romelia Casas MD, A review of the medical record indicates additional documentation may be needed. Please review below and update the documentation accordingly. Documentation includes the conditions of UTI and suprapubic catheter. Clinical Indicators: Per Hospitalist Progress Note 11/22/24: sepsis suspected due to UTI after suprapubic catheter replacement 3 days prior to admission IV Cefepime, IV Vancomycin ID consult pending Please clarify the relationship between these conditions: Yes, UTI is related to / associated with / due to suprapubic catheter No, UTI is not related to / associated with / due to suprapubic catheter Other (explain) Clinically unable to determine (explain) Thank you, Liudmila Le RN Use of terms such as suspected, likely, concern for, or probable (associated with a specific diagnosi s that is being evaluated, monitored, or treated as if it exists) are acceptable and can be coded in the inpatient se tting, when documented at the time of discharge. Please use your independent medical judgment in providing your response. THIS QUERY IS PART OF THE PERMANENT MEDICAL RECORD
--- NOTE | 2024-11-23 15:06 | P.PNIM_ITS ---
Subjective Subjective Date of Service: 11/23/24 Interval History: History obtained via aws developer, Patient Resting comfortably admits to feel better than yesterday, denies shortness of breath no significant coughing , not requiring suctioning to clear phlegm. No acute issues overnight. Review of Systems All other system reviewed and are negative Physical Exam 2 Vital Signs: Vital Signs: Last Vital Signs Temp 97.6 F 11/23/24 11:36 Pulse 88 11/23/24 11:36 Resp 20 11/23/24 11:36 BP 134/77 11/23/24 11:36 Pulse Ox 94 11/23/24 11:36 O2 Del Method Room Air 11/23/24 11:36 O2 Flow Rate 2 11/21/24 03:40 BMI result Body Mass Index 27.3 Const: Other: Gen: Quadriparesis , severely contracted HEENT: sclera anicteric, moist mucus membranes Neck: supple Lungs: Bilateral crackles Heart: regular , no murmurs Abd: soft, non-tender, non-distended : suprapubic catheter Ext: no edema Skin: warm/well-perfused Neuro: alert and oriented x3, spastic quadraparesis. Psych: appropriate affect Objective Data Active Medications Ascorbic Acid (Ascorbic Acid 500 Mg Tablet) 500 mg PO BID [facility] Last Admin: 11/20/24 09:58 Dose: Not Given Documented By: DEBORAMOJADIEL Non-Admin Reason: Patient Condition Contraindication Calcium Carbonate (Calcium Carbonate 750 Mg Tab.Chew) 750 mg PO Q4H PRN PRN Reason: Heartburn Cyclobenzaprine HCl (Cyclobenzaprine Hcl 10 Mg Tablet) 10 mg PO TID [facility] Last Admin: 11/20/24 09:58 Dose: Not Given Documented By: DEBORAMORP Non-Admin Reason: Patient Condition Contraindication Enoxaparin Sodium (Enoxaparin Sodium 40 Mg/0.4 Ml Syringe) 40 mg SUBCUT Q24H [facility] Last Admin: 11/23/24 09:02 Dose: 40 mg Documented By: TYSON Nutrition (Parenteral) (Parenteral Nutrition) 2,400 mls @ 100 mls/hr IV .Q24H [facility]; Protocol Stop: 11/23/24 20:59 Last Admin: 11/22/24 21:01 Dose: 100 mls/hr Documented By: MOISES Linezolid (Zyvox/D5w) 600 mg in 300 mls @ 300 mls/hr IV Q12H [facility] Last Infusion: 11/23/24 05:07 Dose: Infused Documented By: TYSON Acetaminophen (Ofirmev) 1,000 mg in 100 mls @ 400 mls/hr IV Q6H [facility] Stop: 11/24/24 17:59 Last Infusion: 11/23/24 12:01 Dose: Infused Documented By: TYSON Nutrition (Parenteral) (Parenteral Nutrition) 2,400 mls @ 100 mls/hr IV .Q24H [facility]; Protocol Stop: 11/24/24 20:59 Magnesium Hydroxide (Milk Of Magnesia 30 Ml Oral.Susp) 30 ml PO DAILY PRN PRN Reason: Constipation Melatonin (Melatonin 3 Mg Tablet) 6 mg PO BEDTIME PRN PRN Reason: Insomnia Methylprednisolone Sodium Succinate (Methylprednisolone Sod Succ 40 Mg/Ml Vial) 20 mg IVPUSH Q24H [facility] Morphine Sulfate (Morphine Sulfate 2 Mg/Ml Cartridge) 2 mg IVPUSH Q3H PRN; Protocol PRN Reason: Pain, Severe (Pain Scale 7-10) Last Admin: 11/23/24 09:05 Dose: 2 mg Documented By: TYSON Ondansetron HCl (Ondansetron Hcl 4 Mg/2 Ml Vial) 4 mg IVPUSH Q8H PRN PRN Reason: Nausea and Vomiting Oxycodone HCl (Oxycodone Hcl Immed Release 5 Mg Tablet) 5 mg PO Q6H PRN PRN Reason: Pain, Severe (Pain Scale 7-10) Last Admin: 11/19/24 14:43 Dose: 5 mg Documented By: VINOD Pharmacy Consult (Consult Rx Parenteral Nutrition Ordering) 1 each MISCELLANE DAILY PRN PRN Reason: Consult order Senna (Sennosides 8.6 Mg Tablet) 17.2 mg PO BEDTIME [facility] Last Admin: 11/19/24 19:51 Dose: 17.2 mg Documented By: BENNETT Sertraline HCl (Sertraline Hcl 50 Mg Tablet) 50 mg PO DAILY [facility] Last Admin: 11/20/24 09:58 Dose: Not Given Documented By: PODMORP Non-Admin Reason: Patient Condition Contraindication Sodium Chloride (0.9 % Sodium Chloride Flush 3 Ml Syringe) 3 ml IVFLUSH QSHIFT [facility] Last Admin: 11/23/24 08:58 Dose: Not Given Documented By: TYSON Non-Admin Reason: IV Running Vitamin D (Cholecalciferol (Vitamin D3) 25 Mcg Tablet) 50 mcg PO DAILY [facility] Last Admin: 11/20/24 09:58 Dose: Not Given Documented By: ROGERRP Non-Admin Reason: Patient Condition Contraindication Labs 11/22/24 06:19 11/23/24 06:21 Labs: Laboratory Results - last 24 hr 11/19/24 11/19/24 11/22/24 14:57 17:31 15:36 Anion Gap Estim Creat Clear Calc Estimated GFR POC Glucose 114 Random Glucose Calcium Phosphorus Magnesium Albumin Nasal Screen MRSA (PCR) POSITIVE A Nasal S. aureus Screen POSITIVE A Nasal MRSA/S.aureus Interp SEE NOTE Random Vancomycin 12.8 L Respiratory Panel Caceres See Note Adenovirus (Rapid PCR) Not Detected B.pert (TEM-PCR) Not Detected B.parapertussis DNA PCR Not Detected C. pneumoniae DNA (PCR) Not Detected Coronavirus OC43 (PCR) Not Detected Coronavirus HKU1 (PCR) Not Detected Coronavirus 229E (PCR) Not Detected Coronavirus NL63 (PCR) Not Detected Human Metapneumovir PCR Not Detected Influenza A (RT-PCR) Not Detected Influenza B (RT-PCR) Not Detected M. pneumoniae (PCR) Not Detected Parainfluenza 1 (PCR) Not Detected Parainfluenza 2 (PCR) Not Detected Parainfluenza 3 (PCR) Not Detected Parainfluenza 4 (PCR) Not Detected RSV (PCR) Not Detected Entero/Rhino (PCR) Not Detected SARS-CoV-2 RNA (RT-PCR) Not Detected 11/23/24 06:21 Anion Gap 11 L Estim Creat Clear Calc 200.3 Estimated GFR > 60 POC Glucose Random Glucose 163 H Calcium 8.9 Phosphorus 3.2 Magnesium 2.2 Albumin 3.3 L Nasal Screen MRSA (PCR) Nasal S. aureus Screen Nasal MRSA/S.aureus Interp Random Vancomycin Respiratory Panel Caceres Adenovirus (Rapid PCR) B.pert (TEM-PCR) B.parapertussis DNA PCR C. pneumoniae DNA (PCR) Coronavirus OC43 (PCR) Coronavirus HKU1 (PCR) Coronavirus 229E (PCR) Coronavirus NL63 (PCR) Human Metapneumovir PCR Influenza A (RT-PCR) Influenza B (RT-PCR) M. 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 PCT jay from 0.08 to 5.97, will follow PCT, WBC normalized - chest percussive therapy for secretions/suctioning as needed - urine growing Enterococcus faecalis [id number] and Trichosporon asahii greater than 100,000; colonization? Recent urine culture October 21 grew E coli and Trichosporon asahii - seen by ID recommended linezolid dysphagia/aspiration - MBSS with gabby aspiration; not safe for POs - seen by General surgery scheduled for PEG placement at a.m., continue IV PPN, all by mouth meds on hold due to dysphagia NMO/MS or other demyelinating disease -seen by neurologist Dr. Huber he recommend 1g methylprednisolone daily x3 doses 11/21-11/23; then will resume IV Solu Medrol 20 mg daily, was on 20 mg/d prednisone at home Dr. Huber recommends MRI brain/C-spine and thoracic spine due to atypical presentation and after reviewing imaging he will decide for LP to obtain spinal fluid to check for oligoclonal bands and titer of some antibodies that could be related to brainstem encephalitis hypoK/ hypoPO4 Repleted VTE ppx - enoxaparin dispo - will discuss dispo plan with patient currently residing at home In my clinical judgment, the patient requires continued inpatient hospitalization for the following reasons: IV ABX, PPN, PEG tube planning, IV steroids Quality Stroke Does the patient have a stroke diagnosis?: No VTE Prior VTE?: No VTE Risk Level:: Medical - moderate - high VTE Device Contraindication: Treatment Not Indicated VTE Drug Contraindication: N/A - Med Ordered
[2024-11-23 15:43] VITALS: BP 135/85; PULSE 86; RESP 16; TEMP 36.4; O2SAT 98
[2024-11-23] MEDS: LORazepam 2 MG/ML VIAL 0.5 MG IVPUSH (16:42)
--- NOTE | 2024-11-23 16:49 | MHC.SLORD ---
Speech Language Pathology Order Status: Per MD, patient seen by General Surgery, scheduled for possible PEG placement in the morning. LUNCHROOM WORKER will continue to follow.
[2024-11-23] MEDS: gadobutroL 7.5 ML VIAL IVPUSH (18:03)
--- NOTE | 2024-11-23 19:28 | PC.NURSE ---
late entry: pt medicated w/ PRN of 5mg oxycodone @ 1443 on 11/19/24. pt rated his pain a 7 out of 10 but this RN accidentally documented that the patient's pain level was a 6.
[2024-11-23 20:00] VITALS: BP 150/94; PULSE 84; RESP 26; TEMP 36.3; O2SAT 94
[2024-11-23] MEDS: Parenteral Nutrition 2,400 ML 100 ML IV (22:53)
[2024-11-23] MEDS: 0.9 % Sodium Chloride Flush 3 ML SYRINGE IVFLUSH (23:03)
[2024-11-23 23:47] VITALS: BP 119/77; PULSE 86; RESP 20; TEMP 36.6; O2SAT 98
[2024-11-24] VITALS (9 sets, daily range): BP systolic 124–148; BP diastolic 77–98; PULSE 71–102; RESP 14–20; TEMP 36.1–36.9; O2SAT 91–99
--- NOTE | 2024-11-24 00:07 | P.CNID_ITS ---
History of Present Illness Data of Consult Service Date: 11/23/24 Requesting physician: Giulia Alatorre Primary Care Provider: Ebenezer Leslie MD HPI Reason for consult: sepsis He pulled out catheter by mistake two days ago and hematuria. He has had enterococcus. 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 Microcytic anemia Multiple sclerosis Headache Family History Family History Other No family history of coronary artery disease Family history: reviewed and not pertinent Surgical History Surgical History H/O hernia repair Social History Social History Household Members: Family Household Members Other:: parents Housing: Apartment 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 have visiting nurse or other home services: Yes Unable to assess alcohol history related to: Unknown Alcohol intake: never Patient Tobacco Use Status: Former Tobacco user Tobacco use type: Cigarette Cigarettes Per Day: 0.25 Substance Use Type: Marijuana Advance Directives Date on File: 08/21/22 service: No Current occupational status: disabled Meds Allergies Allergy/AdvReac Type Severity Reaction Status Date / Time doxycycline Allergy Rash Verified 11/18/24 18:53 Active Medications: Current Medications Ascorbic Acid (Ascorbic Acid 500 Mg Tablet) 500 mg PO BID [facility] Last Admin: 11/20/24 09:58 Dose: Not Given Calcium Carbonate (Calcium Carbonate 750 Mg Tab.Chew) 750 mg PO Q4H PRN PRN Reason: Heartburn Cyclobenzaprine HCl (Cyclobenzaprine Hcl 10 Mg Tablet) 10 mg PO TID [facility] Last Admin: 11/20/24 09:58 Dose: Not Given Enoxaparin Sodium (Enoxaparin Sodium 40 Mg/0.4 Ml Syringe) 40 mg SUBCUT Q24H [facility] Last Admin: 11/23/24 09:02 Dose: 40 mg Linezolid (Zyvox/D5w) 600 mg in 300 mls @ 300 mls/hr IV Q12H [facility] Last Infusion: 11/23/24 19:46 Dose: Infused Acetaminophen (Ofirmev) 1,000 mg in 100 mls @ 400 mls/hr IV Q6H [facility] Stop: 11/24/24 17:59 Last Admin: 11/23/24 19:46 Dose: 400 mls/hr Nutrition (Parenteral) (Parenteral Nutrition) 2,400 mls @ 100 mls/hr IV .Q24H [facility]; Protocol Stop: 11/24/24 20:59 Last Admin: 11/23/24 22:53 Dose: 100 mls/hr Lorazepam (Lorazepam 2 Mg/Ml Vial) 0.5 mg IVPUSH Q6H PRN PRN Reason: anxiety/restlessness Last Admin: 11/23/24 16:42 Dose: 0.5 mg Magnesium Hydroxide (Milk Of Magnesia 30 Ml Oral.Susp) 30 ml PO DAILY PRN PRN Reason: Constipation Melatonin (Melatonin 3 Mg Tablet) 6 mg PO BEDTIME PRN PRN Reason: Insomnia Methylprednisolone Sodium Succinate (Methylprednisolone Sod Succ 40 Mg/Ml Vial) 20 mg IVPUSH Q24H [facility] Morphine Sulfate (Morphine Sulfate 2 Mg/Ml Cartridge) 2 mg IVPUSH Q3H PRN; Protocol PRN Reason: Pain, Severe (Pain Scale 7-10) Last Admin: 11/23/24 09:05 Dose: 2 mg Ondansetron HCl (Ondansetron Hcl 4 Mg/2 Ml Vial) 4 mg IVPUSH Q8H PRN PRN Reason: Nausea and Vomiting Oxycodone HCl (Oxycodone Hcl Immed Release 5 Mg Tablet) 5 mg PO Q6H PRN PRN Reason: Pain, Severe (Pain Scale 7-10) Last Admin: 11/19/24 14:43 Dose: 5 mg Pharmacy Consult (Consult Rx Parenteral Nutrition Ordering) 1 each MISCELLANE DAILY PRN PRN Reason: Consult order Senna (Sennosides 8.6 Mg Tablet) 17.2 mg PO BEDTIME [facility] Last Admin: 11/19/24 19:51 Dose: 17.2 mg Sertraline HCl (Sertraline Hcl 50 Mg Tablet) 50 mg PO DAILY [facility] Last Admin: 11/20/24 09:58 Dose: Not Given Sodium Chloride (0.9 % Sodium Chloride Flush 3 Ml Syringe) 3 ml IVFLUSH QSHIFT [facility] Last Admin: 11/23/24 23:03 Dose: 3 ml Vitamin D (Cholecalciferol (Vitamin D3) 25 Mcg Tablet) 50 mcg PO DAILY [facility] Last Admin: 11/20/24 09:58 Dose: Not Given Home Medications ?Medication ?Instructions ?Recorded ?Confirmed ?Last Taken ?Type sertraline 50 mg tablet 50 mg PO DAILY 02/22/24 11/19/24 10/10/24 History clindamycin phosphate 1 % lotion 1 appl topical BID 09/10/24 11/19/24 10/10/24 History cholecalciferol (vitamin D3) 50 50 mcg PO DAILY 10/11/24 11/19/24 10/10/24 History mcg (2,000 unit) capsule (Vitamin D3) clotrimazole-betamethasone 1 1 appl topical BID 10/11/24 11/19/24 10/10/24 History %-0.05 % topical cream cyclobenzaprine 10 mg tablet 10 mg PO TID 10/11/24 11/19/24 10/10/24 History acetaminophen 500 mg tablet 500 mg PO Q6H PRN mild pain 10/21/24 11/19/24 Unknown History prednisone 20 mg tablet 20 mg PO DAILY 10/21/24 11/19/24 Unknown History Physical Exam 2 Vital Signs: Vital Signs: Last Vital Signs Temp 97.8 F 11/23/24 23:47 Pulse 86 11/23/24 23:47 Resp 20 11/23/24 23:47 BP 119/77 11/23/24 23:47 Pulse Ox 98 11/23/24 23:47 O2 Del Method Room Air 11/23/24 23:47 O2 Flow Rate 2 11/21/24 03:40 BMI result Body Mass Index 27.3 Results Labs 11/22/24 06:19 11/23/24 06:21 Labs: BMP 11/23/24 06:21 Sodium 142 Potassium 4.1 D Chloride 108 Carbon Dioxide 27 BUN 8 L Creatinine 0.49 L Calcium 8.9 Liver Function 11/23/24 Range/Units 06:21 Albumin 3.3 L (3.5-5.0) g/dL Microbiology Microbiology Results: Microbiology 11/18/24 19:25 Blood - Venous Blood Culture - Final No growth after 5 days. 11/18/24 19:08 Blood - Venous Blood Culture - Final No growth after 5 days. 11/18/24 22:04 Urine Other - Suprapubic Urine Culture - Final Trichosporon asahii Enterococcus faecalis Assessment and Plan (1) Acute UTI: Status: Acute Plan Probable urinary sepsis due to catheter pulling. Stop Cefepime Po Linezolid 14 d Stop Vancomycin
[2024-11-24] MEDS: Acetaminophen 1,000 MG/100 ML PIGGYBACK 400 MG IV ×3 (01:29→13:36)
[2024-11-24] MEDS: LORazepam 2 MG/ML VIAL 0.5 MG IVPUSH ×3 (01:29→13:35)
[2024-11-24] MEDS: Linezolid/D5W 600 MG/300 ML PIGGYBACK 300 MG IV ×2 (04:14→19:47)
[2024-11-24 06:42] LABS: Albumin Level 3.6 g/dL (3.5-5.0); Anion Gap 15 (12-20); Blood Urea Nitrogen 11 mg/dL (9-16); Calcium 8.9 mg/dL (8.4-10.2); Carbon Dioxide 25 mmol/L (22-29); Chloride 104 mmol/L (96-108); Creatinine Clr Calc Pharmacy 192.5; Estimated Glomerular Filt Rate > 60; Glucose Random 152 mg/dL (60-115); Magnesium 2.5 mg/dL (1.6-2.6); Phosphorus 2.8 mg/dL (2.7-4.5); Potassium 4.1 mmol/L (3.3-5.1); Sodium 140 mmol/L (135-145)
--- NOTE | 2024-11-24 08:08 | PM.PNGS ---
Subjective Subjective Date of Service: 11/24/24 Interval history: No events reported Patient says he occasionally chokes on his secretions Physical Exam Vital Signs: Vital Signs: Last Vital Signs Temp 97.5 F 11/24/24 07:37 Pulse 74 11/24/24 08:02 Resp 20 11/24/24 08:02 BP 124/77 11/24/24 07:37 Pulse Ox 94 11/24/24 08:02 O2 Del Method Room Air 11/24/24 07:37 O2 Flow Rate 2 11/21/24 03:40 BMI result Body Mass Index 27.3 Const: Other: Audible secretions in the pharynx, mental status as baseline, patient communicative Resp: Effort & Inspection: normal respiratory effort Cardio: Rate: regular rate GI: Palpation (GI): Soft to palpation, not firm, nontender and no guarding Objective Data Active Medications Ascorbic Acid (Ascorbic Acid 500 Mg Tablet) 500 mg PO BID [facility] Last Admin: 11/20/24 09:58 Dose: Not Given Documented By: DEBORAMORP Non-Admin Reason: Patient Condition Contraindication Calcium Carbonate (Calcium Carbonate 750 Mg Tab.Chew) 750 mg PO Q4H PRN PRN Reason: Heartburn Cyclobenzaprine HCl (Cyclobenzaprine Hcl 10 Mg Tablet) 10 mg PO TID [facility] Last Admin: 11/20/24 09:58 Dose: Not Given Documented By: JAIMIE Non-Admin Reason: Patient Condition Contraindication Enoxaparin Sodium (Enoxaparin Sodium 40 Mg/0.4 Ml Syringe) 40 mg SUBCUT Q24H [facility] Last Admin: 11/23/24 09:02 Dose: 40 mg Documented By: TYSON Linezolid (Zyvox/D5w) 600 mg in 300 mls @ 300 mls/hr IV Q12H [facility] Last Infusion: 11/24/24 05:15 Dose: Infused Documented By: TONY Acetaminophen (Ofirmev) 1,000 mg in 100 mls @ 400 mls/hr IV Q6H [facility] Stop: 11/24/24 17:59 Last Infusion: 11/24/24 06:04 Dose: Infused Documented By: TONY Nutrition (Parenteral) (Parenteral Nutrition) 2,400 mls @ 100 mls/hr IV .Q24H [facility]; Protocol Stop: 11/24/24 20:59 Last Admin: 11/23/24 22:53 Dose: 100 mls/hr Documented By: TONY Lorazepam (Lorazepam 2 Mg/Ml Vial) 0.5 mg IVPUSH Q6H PRN PRN Reason: anxiety/restlessness Last Admin: 11/24/24 01:29 Dose: 0.5 mg Documented By: TONY Comments: anxiety Magnesium Hydroxide (Milk Of Magnesia 30 Ml Oral.Susp) 30 ml PO DAILY PRN PRN Reason: Constipation Melatonin (Melatonin 3 Mg Tablet) 6 mg PO BEDTIME PRN PRN Reason: Insomnia Methylprednisolone Sodium Succinate (Methylprednisolone Sod Succ 40 Mg/Ml Vial) 20 mg IVPUSH Q24H [facility] Morphine Sulfate (Morphine Sulfate 2 Mg/Ml Cartridge) 2 mg IVPUSH Q3H PRN; Protocol PRN Reason: Pain, Severe (Pain Scale 7-10) Last Admin: 11/23/24 09:05 Dose: 2 mg Documented By: TYSON Ondansetron HCl (Ondansetron Hcl 4 Mg/2 Ml Vial) 4 mg IVPUSH Q8H PRN PRN Reason: Nausea and Vomiting Oxycodone HCl (Oxycodone Hcl Immed Release 5 Mg Tablet) 5 mg PO Q6H PRN PRN Reason: Pain, Severe (Pain Scale 7-10) Last Admin: 11/19/24 14:43 Dose: 5 mg Documented By: VINOD Pharmacy Consult (Consult Rx Parenteral Nutrition Ordering) 1 each MISCELLANE DAILY PRN PRN Reason: Consult order Senna (Sennosides 8.6 Mg Tablet) 17.2 mg PO BEDTIME [facility] Last Admin: 11/19/24 19:51 Dose: 17.2 mg Documented By: BENNETT Sertraline HCl (Sertraline Hcl 50 Mg Tablet) 50 mg PO DAILY [facility] Last Admin: 11/20/24 09:58 Dose: Not Given Documented By: JAIMIE Non-Admin Reason: Patient Condition Contraindication Sodium Chloride (0.9 % Sodium Chloride Flush 3 Ml Syringe) 3 ml IVFLUSH QSHIFT [facility] Last Admin: 11/23/24 23:03 Dose: 3 ml Documented By: TONY Vitamin D (Cholecalciferol (Vitamin D3) 25 Mcg Tablet) 50 mcg PO DAILY [facility] Last Admin: 11/20/24 09:58 Dose: Not Given Documented By: JAIMIE Non-Admin Reason: Patient Condition Contraindication Labs 11/22/24 06:19 11/24/24 06:03 Labs: Laboratory Results - last 24 hr 11/24/24 06:03 Hold Purple Top SEE NOTE Anion Gap 15 Estim Creat Clear Calc 192.5 Estimated GFR > 60 Random Glucose 152 H Calcium 8.9 Phosphorus 2.8 Magnesium 2.5 Albumin 3.6 Microbiology Microbiology Results: Microbiology 11/18/24 19:25 Blood Culture - Final Blood - Venous No growth after 5 days. 11/18/24 19:08 Blood Culture - Final Blood - Venous No growth after 5 days. Procedures Date of Service Date of Service: 11/24/24 Progress Note: A&P Assessment and plan (1) Dysphagia: Status: Acute Assessment and Plan: Dysphagia secondary to MS Planned PEG tube placement today I had reviewed this procedure with the patient and explained the risks, benefits, and alternatives He states that he understands and has decided to proceed Time Spent With Patient Time: Total time managing care of this patient today ____ minutes. Quality Stroke Does the patient have a stroke diagnosis?: No VTE Prior VTE?: No VTE Risk Level:: Medical - moderate - high VTE Device Contraindication: Treatment Not Indicated VTE Drug Contraindication: N/A - Med Ordered
[2024-11-24 08:13] LABS: Strep Pneumo Ag urine Not Detected (Not Detected)
[2024-11-24] MEDS: methylPREDNISolone Sod Succ 40 MG/ML VIAL 20 MG IVPUSH (08:29)
[2024-11-24] MEDS: 0.9 % Sodium Chloride Flush 3 ML SYRINGE IVFLUSH ×2 (08:41→21:57)
--- NOTE | 2024-11-24 09:50 | HO.ANESPROP2 ---
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 Microcytic anemia Multiple sclerosis Headache Family History Family History Other No family history of coronary artery disease Family history of problems with anesthesia: No Surgical History Surgical History H/O hernia repair History of Problems with Anesthesia: No Social History Social History Household Members: Family Household Members Other:: parents Housing: Apartment 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 have visiting nurse or other home services: Yes Unable to assess alcohol history related to: Unknown Alcohol intake: never Patient Tobacco Use Status: Former Tobacco user Tobacco use type: Cigarette Cigarettes Per Day: 0.25 Substance Use Type: Marijuana Advance Directives Date on File: 08/21/22 service: No Current occupational status: disabled Meds Allergies Allergy/AdvReac Type Severity Reaction Status Date / Time doxycycline Allergy Rash Verified 11/18/24 18:53 Active Medications: Current Medications Ascorbic Acid (Ascorbic Acid 500 Mg Tablet) 500 mg PO BID [facility] Last Admin: 11/20/24 09:58 Dose: Not Given Calcium Carbonate (Calcium Carbonate 750 Mg Tab.Chew) 750 mg PO Q4H PRN PRN Reason: Heartburn Cyclobenzaprine HCl (Cyclobenzaprine Hcl 10 Mg Tablet) 10 mg PO TID [facility] Last Admin: 11/20/24 09:58 Dose: Not Given Enoxaparin Sodium (Enoxaparin Sodium 40 Mg/0.4 Ml Syringe) 40 mg SUBCUT Q24H [facility] Last Admin: 11/24/24 08:42 Dose: Not Given Linezolid (Zyvox/D5w) 600 mg in 300 mls @ 300 mls/hr IV Q12H [facility] Last Infusion: 11/24/24 05:15 Dose: Infused Acetaminophen (Ofirmev) 1,000 mg in 100 mls @ 400 mls/hr IV Q6H [facility] Stop: 11/24/24 17:59 Last Infusion: 11/24/24 06:04 Dose: Infused Nutrition (Parenteral) (Parenteral Nutrition) 2,400 mls @ 100 mls/hr IV .Q24H [facility]; Protocol Stop: 11/24/24 20:59 Last Admin: 11/23/24 22:53 Dose: 100 mls/hr Lorazepam (Lorazepam 2 Mg/Ml Vial) 0.5 mg IVPUSH Q6H PRN PRN Reason: anxiety/restlessness Last Admin: 11/24/24 08:38 Dose: 0.5 mg Magnesium Hydroxide (Milk Of Magnesia 30 Ml Oral.Susp) 30 ml PO DAILY PRN PRN Reason: Constipation Melatonin (Melatonin 3 Mg Tablet) 6 mg PO BEDTIME PRN PRN Reason: Insomnia Methylprednisolone Sodium Succinate (Methylprednisolone Sod Succ 40 Mg/Ml Vial) 20 mg IVPUSH Q24H [facility] Last Admin: 11/24/24 08:29 Dose: 20 mg Morphine Sulfate (Morphine Sulfate 2 Mg/Ml Cartridge) 2 mg IVPUSH Q3H PRN; Protocol PRN Reason: Pain, Severe (Pain Scale 7-10) Last Admin: 11/23/24 09:05 Dose: 2 mg Ondansetron HCl (Ondansetron Hcl 4 Mg/2 Ml Vial) 4 mg IVPUSH Q8H PRN PRN Reason: Nausea and Vomiting Oxycodone HCl (Oxycodone Hcl Immed Release 5 Mg Tablet) 5 mg PO Q6H PRN PRN Reason: Pain, Severe (Pain Scale 7-10) Last Admin: 11/19/24 14:43 Dose: 5 mg Pharmacy Consult (Consult Rx Parenteral Nutrition Ordering) 1 each MISCELLANE DAILY PRN PRN Reason: Consult order Senna (Sennosides 8.6 Mg Tablet) 17.2 mg PO BEDTIME [facility] Last Admin: 11/19/24 19:51 Dose: 17.2 mg Sertraline HCl (Sertraline Hcl 50 Mg Tablet) 50 mg PO DAILY [facility] Last Admin: 11/20/24 09:58 Dose: Not Given Sodium Chloride (0.9 % Sodium Chloride Flush 3 Ml Syringe) 3 ml IVFLUSH QSHIFT [facility] Last Admin: 11/24/24 08:41 Dose: 3 ml Vitamin D (Cholecalciferol (Vitamin D3) 25 Mcg Tablet) 50 mcg PO DAILY [facility] Last Admin: 11/20/24 09:58 Dose: Not Given Home Medications ?Medication ?Instructions ?Recorded ?Confirmed ?Last Taken ?Type sertraline 50 mg tablet 50 mg PO DAILY 02/22/24 11/19/24 10/10/24 History clindamycin phosphate 1 % lotion 1 appl topical BID 09/10/24 11/19/24 10/10/24 History cholecalciferol (vitamin D3) 50 50 mcg PO DAILY 10/11/24 11/19/24 10/10/24 History mcg (2,000 unit) capsule (Vitamin D3) clotrimazole-betamethasone 1 1 appl topical BID 10/11/24 11/19/24 10/10/24 History %-0.05 % topical cream cyclobenzaprine 10 mg tablet 10 mg PO TID 10/11/24 11/19/24 10/10/24 History acetaminophen 500 mg tablet 500 mg PO Q6H PRN mild pain 10/21/24 11/19/24 Unknown History prednisone 20 mg tablet 20 mg PO DAILY 10/21/24 11/19/24 Unknown History Exam Height,Weight and Vital Signs: Height 5 ft 9 in Weight 83.915 kg Last Vital Signs Temp 98.2 F 11/24/24 09:02 Pulse 87 11/24/24 09:02 Resp 16 11/24/24 09:02 BP 146/93 H 11/24/24 09:02 Pulse Ox 96 11/24/24 09:02 O2 Del Method Room Air 11/24/24 09:02 O2 Flow Rate 2 11/21/24 03:40 Pertinent Lab Results Pertinent Lab Results: Laboratory Tests 11/18/24 11/18/24 11/18/24 19:05 19:08 20:00 WBC 18.7 H RBC 5.36 Hgb 12.9 L Hct 40.7 L MCV 75.9 L MCH 24.1 L MCHC 31.7 RDW 16.9 H Plt Count 339 D MPV 12.4 Immature Gran % (Auto) 0.4 Neut % (Auto) 84.3 H Lymph % (Auto) 4.0 L Hunt % (Auto) 10.8 Eos % (Auto) 0.2 Baso % (Auto) 0.3 Lymph # (Auto) 0.8 L Hunt # (Auto) 2.0 H Eos # (Auto) 0.0 Baso # (Auto) 0.1 Abs Immat Gran (auto) 0.08 H Absolute Neuts (auto) 15.8 H Absolute Nucleated RBC 0.000 Nucleated RBC % (auto) 0.0 Neutrophils % (Manual) Band Neutrophils % Lymphocytes % (Manual) Monocytes % (Manual) Metamyelocytes % Abs Neuts (Manual) Lymphocytes # (Manual) Monocytes # (Manual) Metamyelocytes # Platelet Estimate Large Platelets Plt Morphology Comment RBC Morphology Hypochromasia Smear Tech's Comments VERIFIED Hold Purple Top SEE NOTE PT INR D-Dimer High Sensitivty Sodium 138 Potassium 3.6 Chloride 99 Carbon Dioxide 27 Anion Gap 16 BUN 8 L Creatinine 0.61 Estim Creat Clear Calc 160.9 Estimated GFR > 60 POC Glucose Random Glucose 98 Lactic Acid 1.6 Calcium 9.9 D Phosphorus Magnesium 1.9 Total Bilirubin 0.4 AST 19 ALT 9 Alkaline Phosphatase 72 Troponin I High Sens 3.6 C-Reactive Protein Total Protein 8.1 H Albumin 4.1 Triglycerides Procalcitonin Urine Color Yellow Urine Appearance Cloudy Urine pH 6.5 Ur Specific [place] >= 1.030 H Urine Protein 300 (3+) H Urine Glucose (UA) Negative Urine Ketones >=80 Urine Blood Large (3+) H Urine Nitrite Negative Ur Leukocyte Esterase Small (1+) H Urine RBC 11-20 H Urine WBC >50 Urine WBC Clumps Present Ur Squamous Epith Cells 0-2 Urine Bacteria None Seen Hyaline Casts 3-5 WBC Casts Present Urine Yeast Present Nasal Screen MRSA (PCR) Nasal S. aureus Screen Nasal MRSA/S.aureus Interp Random Vancomycin Respiratory Panel Caceres Adenovirus (Rapid PCR) B.pert (TEM-PCR) B.parapertussis DNA PCR C. pneumoniae DNA (PCR) Coronavirus OC43 (PCR) Coronavirus HKU1 (PCR) Coronavirus 229E (PCR) Coronavirus NL63 (PCR) Human Metapneumovir PCR Influenza A (RT-PCR) Influenza Type A (PCR) NEGATIVE Influenza B (RT-PCR) Influenza Type B (PCR) NEGATIVE M. pneumoniae (PCR) Parainfluenza 1 (PCR) Parainfluenza 2 (PCR) Parainfluenza 3 (PCR) Parainfluenza 4 (PCR) RSV (PCR) RSV RNA Qual (PCR) NEGATIVE Entero/Rhino (PCR) SARS-CoV-2 RNA (RT-PCR) NEGATIVE Ur Strep pneumoniae Ag 11/19/24 11/19/24 11/19/24 06:50 14:57 15:04 WBC 18.6 H RBC 4.96 Hgb 11.9 L Hct 37.0 L MCV 74.6 L MCH 24.0 L MCHC 32.2 RDW 16.4 H Plt Count 257 MPV 12.0 Immature Gran % (Auto) Cancelled Neut % (Auto) Cancelled Lymph % (Auto) Cancelled Hunt % (Auto) Cancelled Eos % (Auto) Cancelled Baso % (Auto) Cancelled Lymph # (Auto) Cancelled Hunt # (Auto) Cancelled Eos # (Auto) Cancelled Baso # (Auto) Cancelled Abs Immat Gran (auto) Cancelled Absolute Neuts (auto) Cancelled Absolute Nucleated RBC 0.000 Nucleated RBC % (auto) 0.0 Neutrophils % (Manual) 83 H Band Neutrophils % 3 Lymphocytes % (Manual) 9 L Monocytes % (Manual) 4 Metamyelocytes % 1 Abs Neuts (Manual) 16.0 H Lymphocytes # (Manual) 1.7 Monocytes # (Manual) 0.7 Metamyelocytes # 0.2 Platelet Estimate NORMAL Large Platelets PRESENT Plt Morphology Comment NOTED RBC Morphology NOTED Hypochromasia 1+ (5-14) Smear Tech's Comments Hold Purple Top PT INR D-Dimer High Sensitivty Sodium 139 Potassium 3.7 Chloride 104 Carbon Dioxide 22 Anion Gap 17 BUN 4 L Creatinine 0.43 L Estim Creat Clear Calc 228.3 Estimated GFR > 60 POC Glucose Random Glucose 86 Lactic Acid 0.9 Calcium 8.6 D Phosphorus Magnesium Total Bilirubin AST ALT Alkaline Phosphatase Troponin I High Sens C-Reactive Protein 11.77 H Total Protein Albumin Triglycerides Procalcitonin 0.08 Urine Color Urine Appearance Urine pH Ur Specific [place] Urine Protein Urine Glucose (UA) Urine Ketones Urine Blood Urine Nitrite Ur Leukocyte Esterase Urine RBC Urine WBC Urine WBC Clumps Ur Squamous Epith Cells Urine Bacteria Hyaline Casts WBC Casts Urine Yeast Nasal Screen MRSA (PCR) POSITIVE A Nasal S. aureus Screen POSITIVE A Nasal MRSA/S.aureus Interp SEE NOTE Random Vancomycin Respiratory Panel Caceres See Note Adenovirus (Rapid PCR) Not Detected B.pert (TEM-PCR) Not Detected B.parapertussis DNA PCR Not Detected C. pneumoniae DNA (PCR) Not Detected Coronavirus OC43 (PCR) Not Detected Coronavirus HKU1 (PCR) Not Detected Coronavirus 229E (PCR) Not Detected Coronavirus NL63 (PCR) Not Detected Human Metapneumovir PCR Not Detected Influenza A (RT-PCR) Not Detected Influenza Type A (PCR) Influenza B (RT-PCR) Not Detected Influenza Type B (PCR) M. pneumoniae (PCR) Not Detected Parainfluenza 1 (PCR) Not Detected Parainfluenza 2 (PCR) Not Detected Parainfluenza 3 (PCR) Not Detected Parainfluenza 4 (PCR) Not Detected RSV (PCR) Not Detected RSV RNA Qual (PCR) Entero/Rhino (PCR) Not Detected SARS-CoV-2 RNA (RT-PCR) Not Detected Ur Strep pneumoniae Ag 11/19/24 11/19/24 11/20/24 16:37 17:31 06:06 WBC 14.0 H RBC 5.00 Hgb 12.0 L Hct 37.4 L MCV 74.8 L MCH 24.0 L MCHC 32.1 RDW 16.4 H Plt Count 267 MPV 12.1 Immature Gran % (Auto) Neut % (Auto) Lymph % (Auto) Hunt % (Auto) Eos % (Auto) Baso % (Auto) Lymph # (Auto) Hunt # (Auto) Eos # (Auto) Baso # (Auto) Abs Immat Gran (auto) Absolute Neuts (auto) Absolute Nucleated RBC 0.000 Nucleated RBC % (auto) 0.0 Neutrophils % (Manual) Band Neutrophils % Lymphocytes % (Manual) Monocytes % (Manual) Metamyelocytes % Abs Neuts (Manual) Lymphocytes # (Manual) Monocytes # (Manual) Metamyelocytes # Platelet Estimate Large Platelets Plt Morphology Comment RBC Morphology Hypochromasia Smear Tech's Comments Hold Purple Top PT INR D-Dimer High Sensitivty Sodium Potassium Chloride Carbon Dioxide Anion Gap BUN Creatinine Estim Creat Clear Calc Estimated GFR POC Glucose 114 Random Glucose Lactic Acid Calcium Phosphorus Magnesium Total Bilirubin AST ALT Alkaline Phosphatase Troponin I High Sens C-Reactive Protein Total Protein Albumin Triglycerides Procalcitonin Urine Color Urine Appearance Urine pH Ur Specific [place] Urine Protein Urine Glucose (UA) Urine Ketones Urine Blood Urine Nitrite Ur Leukocyte Esterase Urine RBC Urine WBC Urine WBC Clumps Ur Squamous Epith Cells Urine Bacteria Hyaline Casts WBC Casts Urine Yeast Nasal Screen MRSA (PCR) Nasal S. aureus Screen Nasal MRSA/S.aureus Interp Random Vancomycin Respiratory Panel Caceres Adenovirus (Rapid PCR) B.pert (TEM-PCR) B.parapertussis DNA PCR C. pneumoniae DNA (PCR) Coronavirus OC43 (PCR) Coronavirus HKU1 (PCR) Coronavirus 229E (PCR) Coronavirus NL63 (PCR) Human Metapneumovir PCR Influenza A (RT-PCR) Influenza Type A (PCR) Influenza B (RT-PCR) Influenza Type B (PCR) M. pneumoniae (PCR) Parainfluenza 1 (PCR) Parainfluenza 2 (PCR) Parainfluenza 3 (PCR) Parainfluenza 4 (PCR) RSV (PCR) RSV RNA Qual (PCR) Entero/Rhino (PCR) SARS-CoV-2 RNA (RT-PCR) Ur Strep pneumoniae Ag Not Detected 11/20/24 11/20/24 11/21/24 08:26 13:06 06:27 WBC 14.3 H RBC 4.69 Hgb 11.1 L Hct 35.1 L MCV 74.8 L MCH 23.7 L MCHC 31.6 RDW 16.5 H Plt Count 275 MPV 13.1 H Immature Gran % (Auto) Neut % (Auto) Lymph % (Auto) Hunt % (Auto) Eos % (Auto) Baso % (Auto) Lymph # (Auto) Hunt # (Auto) Eos # (Auto) Baso # (Auto) Abs Immat Gran (auto) Absolute Neuts (auto) Absolute Nucleated RBC 0.000 Nucleated RBC % (auto) 0.0 Neutrophils % (Manual) Band Neutrophils % Lymphocytes % (Manual) Monocytes % (Manual) Metamyelocytes % Abs Neuts (Manual) Lymphocytes # (Manual) Monocytes # (Manual) Metamyelocytes # Platelet Estimate Large Platelets Plt Morphology Comment RBC Morphology Hypochromasia Smear Tech's Comments Hold Purple Top PT INR D-Dimer High Sensitivty 394 Sodium 141 142 Potassium 3.1 L 3.1 L Chloride 101 104 Carbon Dioxide 28 30 H Anion Gap 15 11 L BUN 3 L 5 L Creatinine 0.46 L 0.52 Estim Creat Clear Calc 213.4 188.8 Estimated GFR > 60 > 60 POC Glucose Random Glucose 85 116 H Lactic Acid Calcium 9.1 9.0 Phosphorus 3.0 2.4 L Magnesium 1.6 1.6 Total Bilirubin AST ALT Alkaline Phosphatase Troponin I High Sens C-Reactive Protein Total Protein Albumin 3.7 Triglycerides 54 Procalcitonin 5.97 Urine Color Urine Appearance Urine pH Ur Specific [place] Urine Protein Urine Glucose (UA) Urine Ketones Urine Blood Urine Nitrite Ur Leukocyte Esterase Urine RBC Urine WBC Urine WBC Clumps Ur Squamous Epith Cells Urine Bacteria Hyaline Casts WBC Casts Urine Yeast Nasal Screen MRSA (PCR) Nasal S. aureus Screen Nasal MRSA/S.aureus Interp Random Vancomycin Respiratory Panel Caceres Adenovirus (Rapid PCR) B.pert (TEM-PCR) B.parapertussis DNA PCR C. pneumoniae DNA (PCR) Coronavirus OC43 (PCR) Coronavirus HKU1 (PCR) Coronavirus 229E (PCR) Coronavirus NL63 (PCR) Human Metapneumovir PCR Influenza A (RT-PCR) Influenza Type A (PCR) Influenza B (RT-PCR) Influenza Type B (PCR) M. pneumoniae (PCR) Parainfluenza 1 (PCR) Parainfluenza 2 (PCR) Parainfluenza 3 (PCR) Parainfluenza 4 (PCR) RSV (PCR) RSV RNA Qual (PCR) Entero/Rhino (PCR) SARS-CoV-2 RNA (RT-PCR) Ur Strep pneumoniae Ag 11/21/24 11/22/24 11/22/24 12:57 06:19 15:36 WBC 10.8 RBC 4.75 Hgb 11.3 L Hct 35.3 L MCV 74.3 L MCH 23.8 L MCHC 32.0 RDW 16.1 H Plt Count 304 MPV 12.8 H Immature Gran % (Auto) Neut % (Auto) Lymph % (Auto) Hunt % (Auto) Eos % (Auto) Baso % (Auto) Lymph # (Auto) Hunt # (Auto) Eos # (Auto) Baso # (Auto) Abs Immat Gran (auto) Absolute Neuts (auto) Absolute Nucleated RBC 0.000 Nucleated RBC % (auto) 0.0 Neutrophils % (Manual) Band Neutrophils % Lymphocytes % (Manual) Monocytes % (Manual) Metamyelocytes % Abs Neuts (Manual) Lymphocytes # (Manual) Monocytes # (Manual) Metamyelocytes # Platelet Estimate Large Platelets Plt Morphology Comment RBC Morphology Hypochromasia Smear Tech's Comments Hold Purple Top PT 11.9 INR 1.0 D-Dimer High Sensitivty Sodium 144 Potassium 3.4 Chloride 109 H Carbon Dioxide 26 Anion Gap 12 BUN 8 L Creatinine 0.47 L Estim Creat Clear Calc 208.9 Estimated GFR > 60 POC Glucose Random Glucose 116 H Lactic Acid Calcium 9.0 Phosphorus 2.3 L Magnesium 1.9 Total Bilirubin AST ALT Alkaline Phosphatase Troponin I High Sens C-Reactive Protein Total Protein Albumin 3.2 L Triglycerides Procalcitonin Urine Color Urine Appearance Urine pH Ur Specific [place] Urine Protein Urine Glucose (UA) Urine Ketones Urine Blood Urine Nitrite Ur Leukocyte Esterase Urine RBC Urine WBC Urine WBC Clumps Ur Squamous Epith Cells Urine Bacteria Hyaline Casts WBC Casts Urine Yeast Nasal Screen MRSA (PCR) Nasal S. aureus Screen Nasal MRSA/S.aureus Interp Random Vancomycin 14.5 L 12.8 L Respiratory Panel Caceres Adenovirus (Rapid PCR) B.pert (TEM-PCR) B.parapertussis DNA PCR C. pneumoniae DNA (PCR) Coronavirus OC43 (PCR) Coronavirus HKU1 (PCR) Coronavirus 229E (PCR) Coronavirus NL63 (PCR) Human Metapneumovir PCR Influenza A (RT-PCR) Influenza Type A (PCR) Influenza B (RT-PCR) Influenza Type B (PCR) M. pneumoniae (PCR) Parainfluenza 1 (PCR) Parainfluenza 2 (PCR) Parainfluenza 3 (PCR) Parainfluenza 4 (PCR) RSV (PCR) RSV RNA Qual (PCR) Entero/Rhino (PCR) SARS-CoV-2 RNA (RT-PCR) Ur Strep pneumoniae Ag 11/23/24 11/24/24 06:21 06:03 WBC RBC Hgb Hct MCV MCH MCHC RDW Plt Count MPV Immature Gran % (Auto) Neut % (Auto) Lymph % (Auto) Hunt % (Auto) Eos % (Auto) Baso % (Auto) Lymph # (Auto) Hunt # (Auto) Eos # (Auto) Baso # (Auto) Abs Immat Gran (auto) Absolute Neuts (auto) Absolute Nucleated RBC Nucleated RBC % (auto) Neutrophils % (Manual) Band Neutrophils % Lymphocytes % (Manual) Monocytes % (Manual) Metamyelocytes % Abs Neuts (Manual) Lymphocytes # (Manual) Monocytes # (Manual) Metamyelocytes # Platelet Estimate Large Platelets Plt Morphology Comment RBC Morphology Hypochromasia Smear Tech's Comments Hold Purple Top SEE NOTE PT INR D-Dimer High Sensitivty Sodium 142 140 Potassium 4.1 D 4.1 Chloride 108 104 Carbon Dioxide 27 25 Anion Gap 11 L 15 BUN 8 L 11 Creatinine 0.49 L 0.51 Estim Creat Clear Calc 200.3 192.5 Estimated GFR > 60 > 60 POC Glucose Random Glucose 163 H 152 H Lactic Acid Calcium 8.9 8.9 Phosphorus 3.2 2.8 Magnesium 2.2 2.5 Total Bilirubin AST ALT Alkaline Phosphatase Troponin I High Sens C-Reactive Protein Total Protein Albumin 3.3 L 3.6 Triglycerides Procalcitonin Urine Color Urine Appearance Urine pH Ur Specific [place] Urine Protein Urine Glucose (UA) Urine Ketones Urine Blood Urine Nitrite Ur Leukocyte Esterase Urine RBC Urine WBC Urine WBC Clumps Ur Squamous Epith Cells Urine Bacteria Hyaline Casts WBC Casts Urine Yeast Nasal Screen MRSA (PCR) Nasal S. aureus Screen Nasal MRSA/S.aureus Interp Random Vancomycin Respiratory Panel Caceres Adenovirus (Rapid PCR) B.pert (TEM-PCR) B.parapertussis DNA PCR C. pneumoniae DNA (PCR) Coronavirus OC43 (PCR) Coronavirus HKU1 (PCR) Coronavirus 229E (PCR) Coronavirus NL63 (PCR) Human Metapneumovir PCR Influenza A (RT-PCR) Influenza Type A (PCR) Influenza B (RT-PCR) Influenza Type B (PCR) M. pneumoniae (PCR) Parainfluenza 1 (PCR) Parainfluenza 2 (PCR) Parainfluenza 3 (PCR) Parainfluenza 4 (PCR) RSV (PCR) RSV RNA Qual (PCR) Entero/Rhino (PCR) SARS-CoV-2 RNA (RT-PCR) Ur Strep pneumoniae Ag Airway Heart: rrr Lungs: cta Assessment and Plan Assessment Anesthesia Assessment: Anesthesia Plan Discussed Final Anesthetic Review Family History of Problems with Anesthesia: No History of Problems with Anesthesia: No NPO: Yes ASA Class: III Final Preanesthetic Review: No Changes in Pt Med Stat, Meds/Allgs Chart Reviewed, Consent Obtained/Reviewed and Anes Risks/Benef Reviewed Patient Risk: Intermediate Procedure Risk: Low Anesthetic Plan Anesthetic Plan: MAC: Disposition: Standard PACU
--- NOTE | 2024-11-24 10:07 | W.PM.OPN ---
Operative Note Operative Note Date of Service: 11/24/24 Narrative: Preop diagnosis: Dysphagia secondary to MS Postop diagnosis: The same Procedure: PEG tube placement Surgeon: Real Arias MD assistant womens volleyball coach: ADELINA Waters The patient is a 39-year-old male with dysphagia and aspiration secondary to MS. He was referred to dc for PEG tube placement. He understood the technique of the planned procedure as well as the risks, benefits, and alternatives. The patient was brought to the operating room and placed in reclining position on the hospital bed. He was in monitored anesthesia care. A bite block was in position. Surgical time-out was done. The patient was receiving scheduled IV antibiotics. I inserted the gastroscope through the bite block into the oropharynx. The vocal cords were visualized. The esophageal slit was seen posterior to this. The esophageal slit was intubated. The scope was gently advanced and the entire length of the esophagus into the stomach. The stomach was insufflated. Transillumination was seen in the left upper quadrant and epigastric area below the ribcage. Indentation on the anterior stomach wall was easily seen as well with pressure on this same area with the index finger. This area was therefore prepped and draped. A small stab incision was made after infiltrating with lidocaine 1%. The large bore needle was inserted along with the plastic cannula sheath. This was seen into the stomach lumen. The needle was removed and the guidewire was inserted through the cannula sheath. The guidewire was grasped with a snare and was pulled out to the oral orifice. The guidewire was looped onto the PEG tube. A guidewire was then pulled back out through the no wall along with the feeding tube until there was resistance from the inner bolster. I reinserted the scope all the way to the stomach. The inner bolster was seen and was in good position. There were no lesions. There was no bleeding in the stomach. The scope was then completely withdrawn. The external bolster was positioned to make this snug on the skin of the abdominal wall. The attachments on the feeding tube were applied. Dressings were placed. The procedure was completed. The patient tolerated procedure well. There was minimal blood loss. He was transferred to the recovery room with stable vital signs.
--- NOTE | 2024-11-24 11:28 | MHC.CLN ---
F/U PEG TUBE PLACED THIS AM PLAN TO START TF TOMORROW REVIEWED LABS DISCUSSED WITH PHARMACY CONTINUE PPN AT MAX GOAL RATE 100ML/HR WITH 87G LIPIDS TO PROVIDE 2094 TOTAL KCALS (25KCALS/KG), 240G DEXTROSE, 102G PROTEIN (1.2G/KG) REPLETE LYTES NEEDED PLAN FOR TF TOMORROW 11/25/24 RECOMMEND JEVITY 1.0 AT MAX GOAL RATE 85ML/HR WITH 240ML FREE WATER FLUSHES Q 8 HRS TO PROVIDE 2162KCALS (26KCALS/KG), 90G PROTEIN (1.07G/KG), 2423ML TOTAL WATER FROM FORMULA AND FLUSHES (29ML/KG) START TF AT 20ML AND INCREASE BY 10ML Q 4 HRS UNTIL MAX GOAL IS ACHIEVED MONITOR TOLERANCE AND LYTES RD CAN BE REACHED VIA TIGER CONNECT IF NEEDED
--- NOTE | 2024-11-24 13:24 | P.PNIM_ITS ---
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 Underwent PEG tube placement this morning by General surgery. Postprocedure noted to have significant secretions requiring deep suctioning, and also noted hypoxia currently on 10 L of oxygen finger oximetry around 90% Patient denies pain, offers no acute complaints. Review of Systems All symptoms reviewed and are negative Physical Exam 2 Vital Signs: Vital Signs: Last Vital Signs Temp 97.1 F 11/24/24 10:29 Pulse 96 11/24/24 10:29 Resp 16 11/24/24 10:29 BP 145/98 H 11/24/24 10:29 Pulse Ox 92 11/24/24 10:29 O2 Del Method Nasal Cannula 11/24/24 10:29 O2 Flow Rate 2 11/24/24 10:29 BMI result Body Mass Index 27.3 Const: Other: Gen: Quadriparesis , no distress HEENT: sclera anicteric, moist mucus membranes Neck: supple Lungs: Bilateral crackles Heart: regular , no murmurs Abd: soft, non-tender, non-distended : suprapubic catheter Ext: no edema Skin: warm/well-perfused Neuro: alert and oriented x3, spastic quadraparesis. Psych: appropriate affect Objective Data Active Medications Ascorbic Acid (Ascorbic Acid 500 Mg Tablet) 500 mg PO BID [facility] Last Admin: 11/20/24 09:58 Dose: Not Given Documented By: DEBORAMOJADIEL Non-Admin Reason: Patient Condition Contraindication Calcium Carbonate (Calcium Carbonate 750 Mg Tab.Chew) 750 mg PO Q4H PRN PRN Reason: Heartburn Cyclobenzaprine HCl (Cyclobenzaprine Hcl 10 Mg Tablet) 10 mg PO TID [facility] Last Admin: 11/20/24 09:58 Dose: Not Given Documented By: JAIMIE Non-Admin Reason: Patient Condition Contraindication Enoxaparin Sodium (Enoxaparin Sodium 40 Mg/0.4 Ml Syringe) 40 mg SUBCUT Q24H [facility] Last Admin: 11/24/24 08:42 Dose: Not Given Documented By: WALKER Non-Admin Reason: surgery Glycopyrrolate (Glycopyrrolate 0.2 Mg/Ml Vial) 0.1 mg IVPUSH Q4H PRN PRN Reason: secretions Linezolid (Zyvox/D5w) 600 mg in 300 mls @ 300 mls/hr IV Q12H [facility] Last Infusion: 11/24/24 05:15 Dose: Infused Documented By: TONY Acetaminophen (Ofirmev) 1,000 mg in 100 mls @ 400 mls/hr IV Q6H [facility] Stop: 11/24/24 17:59 Last Infusion: 11/24/24 06:04 Dose: Infused Documented By: TONY Nutrition (Parenteral) (Parenteral Nutrition) 2,400 mls @ 100 mls/hr IV .Q24H [facility]; Protocol Stop: 11/24/24 20:59 Last Admin: 11/23/24 22:53 Dose: 100 mls/hr Documented By: TONY Nutrition (Parenteral) (Parenteral Nutrition) 2,400 mls @ 100 mls/hr IV .Q24H [facility]; Protocol Stop: 11/25/24 20:59 Lorazepam (Lorazepam 2 Mg/Ml Vial) 0.5 mg IVPUSH Q6H PRN PRN Reason: anxiety/restlessness Last Admin: 11/24/24 08:38 Dose: 0.5 mg Documented By: WALKER Magnesium Hydroxide (Milk Of Magnesia 30 Ml Oral.Susp) 30 ml PO DAILY PRN PRN Reason: Constipation Melatonin (Melatonin 3 Mg Tablet) 6 mg PO BEDTIME PRN PRN Reason: Insomnia Methylprednisolone Sodium Succinate (Methylprednisolone Sod Succ 40 Mg/Ml Vial) 20 mg IVPUSH Q24H [facility] Last Admin: 11/24/24 08:29 Dose: 20 mg Documented By: WALKER Morphine Sulfate (Morphine Sulfate 2 Mg/Ml Cartridge) 2 mg IVPUSH Q3H PRN; Protocol PRN Reason: Pain, Severe (Pain Scale 7-10) Last Admin: 11/23/24 09:05 Dose: 2 mg Documented By: TYSON Naloxone HCl (Naloxone Hcl 0.4 Mg/Ml Vial) 0.04 mg IVPUSH Q5M PRN PRN Reason: Excessive sedation or RR < 8 Ondansetron HCl (Ondansetron Hcl 4 Mg/2 Ml Vial) 4 mg IVPUSH Q8H PRN PRN Reason: Nausea and Vomiting Oxycodone HCl (Oxycodone Hcl Immed Release 5 Mg Tablet) 5 mg PO Q6H PRN PRN Reason: Pain, Severe (Pain Scale 7-10) Last Admin: 11/19/24 14:43 Dose: 5 mg Documented By: VINOD Pharmacy Consult (Consult Rx Parenteral Nutrition Ordering) 1 each MISCELLANE DAILY PRN PRN Reason: Consult order Scopolamine (Scopolamine 1.5 Mg Patch.Td.3) 1.5 mg EAR-BEHIND Q72H [facility] Senna (Sennosides 8.6 Mg Tablet) 17.2 mg PO BEDTIME [facility] Last Admin: 11/19/24 19:51 Dose: 17.2 mg Documented By: BENNETT Sertraline HCl (Sertraline Hcl 50 Mg Tablet) 50 mg PO DAILY [facility] Last Admin: 11/20/24 09:58 Dose: Not Given Documented By: PODMORP Non-Admin Reason: Patient Condition Contraindication Sodium Chloride (0.9 % Sodium Chloride Flush 3 Ml Syringe) 3 ml IVFLUSH QSHIFT [facility] Last Admin: 11/24/24 08:41 Dose: 3 ml Documented By: WALKER Vitamin D (Cholecalciferol (Vitamin D3) 25 Mcg Tablet) 50 mcg PO DAILY [facility] Last Admin: 11/20/24 09:58 Dose: Not Given Documented By: PODMORP Non-Admin Reason: Patient Condition Contraindication Labs 11/22/24 06:19 11/24/24 06:03 Labs: Laboratory Results - last 24 hr 11/19/24 11/24/24 16:37 06:03 Hold Purple Top SEE NOTE Anion Gap 15 Estim Creat Clear Calc 192.5 Estimated GFR > 60 Random Glucose 152 H Calcium 8.9 Phosphorus 2.8 Magnesium 2.5 Albumin 3.6 Ur Strep pneumoniae Ag Not Detected Microbiology Microbiology Results: Microbiology 11/18/24 19:25 Blood Culture - Final Blood - Venous No growth after 5 days. 11/18/24 19:08 Blood Culture - Final Blood - Venous No growth after 5 days. 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, paraplegia, neurogenic bladder with suprapubic catheter, frequent UTIs presenting with weakness, fever, and anorexia; found to have sepsis suspected due to UTI after suprapubic catheter replacement 3d prior to admission; also found to have pneumonia likely due to aspiration sepsis due to complicated UTI likely due to chronic suprapubic catheter + pneumonia - sepsis resolved, s/p iv cefepime and iv vancomycin 11/19 thru 11/22 now on IV linezolid started 11/22 - BCx negative at 48hr; MRSA swab positive; resp pathogen panel negative; urinary antigens for Legionella and pneumococcus pending - lactate normal. PCT jay from 0.08 to 5.97, WBC normalized - chest percussive therapy for secretions/suctioning as needed - scopolamine patch q.72 hours - glycopyrrolate q.4 hours - urine growing Enterococcus faecalis [id number] and Trichosporon asahii greater than 100,000; colonization? Recent urine culture October 21 grew E coli and Trichosporon asahii - seen by ID recommended linezolid - consult pulmonology question trach - check PCT/crp/bmp at am dysphagia/aspiration/difficulty clearing throat - MBSS with gabby aspiration; not safe for POs - seen by General surgery underwent back tube placement this morning, continue IV PPN, all by mouth meds on hold due to dysphagia -start feeding from am NMO/MS or other demyelinating disease -seen by neurologist Dr. 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 Huber recommend LP to obtain spinal fluid for glucose, protein, cell, oligoclonal bands and autoimmune encephalitis panel, Today patient is postop from PEG tube with significant hypoxia and inability to clear secretions if patient clinically stable will attempt LP at a.m. hypoK/ hypoPO4 Repleted VTE ppx - enoxaparin dispo - will discuss dispo plan with patient currently residing at home In my clinical judgment, the patient requires continued inpatient hospitalization for the following reasons: IV ABX, PPN, IV steroids and waiting to start PEG tube feedings Quality Stroke Does the patient have a stroke diagnosis?: No VTE Prior VTE?: No VTE Risk Level:: Medical - moderate - high VTE Device Contraindication: Treatment Not Indicated VTE Drug Contraindication: N/A - Med Ordered
[2024-11-24] MEDS: Scopolamine 1.5 MG PATCH.TD.3 EAR-BEHIND (13:35)
--- NOTE | 2024-11-24 14:38 | MHC.CM.PN ---
Pt has not been medically cleared, he had a peg tube placed today. Anticipate will need ST at DC. CM to follow for DC needs.
--- NOTE | 2024-11-24 14:41 | MHC.SL.SWA ---
Speech Pathologist Impression: Elevated risk for aspiration, Moderate to Significant Oralpharyngeal Dysphagia Risk of Aspiration Due to: Neurological Condition Poor PO Intake Reduced Cognition Dysphasia Diet Status: Recommend continue NPO status at this time due to the severity of patient?s dysphagia and elevated risk of aspiration. Recommend consultation with Nutrition Services/GI to assess candidacy for temporary vs. long-term alternate means of nutrition. Liquid Consistency and Strategies for Safe Swallow: Liquid Intake Recommendation: NPO Liquid Intake Strategies: Solid Food Consistency: Dietary Recommendations: NPO Additional Modifications to Solid Foods: Patient with silent aspiration, weak and ineffective cough/throat clear. Oral Medication Intake: NPO Please contact the pharmacy regarding appropriate crushable or liquid drug formulations that are available whenever modified delivery is recommended. Compensatory Strategies and Precautions to be Taken for Safe Swallow: Sitting Upright (90 deg) Supervision While Eating and Drinking for Safe Swallow: Foods to Avoid: Mixed consistencies. Swallowing Recommended Treatments: Chewing Exercises Pharyngeal Resistive Exer Compens. Strategy Educat. 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 Daily ST indicated d/t nature and severity of pt dysphagia, to address education, training and pharyngeal strengthening. Frequency/Duration: Date Range for Service Req: Timeline to reassess: PRN [employer]ated Truck [employer] Clinican/Clinical Fellow: No Supervisory Statement: I have reviewed and agree with the student/clinical fellow's documentation: N/A Speech Language Pathologist: Maral Holman M.S., CCC-REVENUE ENFORCEMENT AGENT
[2024-11-24] MEDS: Parenteral Nutrition 2,400 ML 100 ML IV (21:57)
[2024-11-25] VITALS (9 sets, daily range): BP systolic 112–136; BP diastolic 60–82; PULSE 73–92; RESP 16–22; TEMP 36.2–36.8; O2SAT 95–100
[2024-11-25] MEDS: Linezolid/D5W 600 MG/300 ML PIGGYBACK 300 MG IV ×2 (05:00→16:21)
[2024-11-25 06:53] LABS: Legionella Ag Urine Not Detected (Not Detected)
[2024-11-25 07:33] LABS: Albumin Level 3.2 g/dL (3.5-5.0); Anion Gap 13 (12-20); Blood Urea Nitrogen 12 mg/dL (9-16); C Reactive Protein 2.97 mg/dL (< or = 0.50); Calcium 8.6 mg/dL (8.4-10.2); Carbon Dioxide 23 mmol/L (22-29); Chloride 107 mmol/L (96-108); Creatinine Clr Calc Pharmacy 192.5; Estimated Glomerular Filt Rate > 60; Glucose Random 106 mg/dL (60-115); Magnesium 2.4 mg/dL (1.6-2.6); Phosphorus 3.5 mg/dL (2.7-4.5); Potassium 4.2 mmol/L (3.3-5.1); Sodium 139 mmol/L (135-145)
[2024-11-25 07:48] LABS: Procalcitonin 0.12 ng/mL
[2024-11-25] MEDS: methylPREDNISolone Sod Succ 40 MG/ML VIAL 20 MG IVPUSH (08:08)
[2024-11-25] MEDS: 0.9 % Sodium Chloride Flush 3 ML SYRINGE IVFLUSH ×3 (08:09→20:44)
[2024-11-25] MEDS: Enoxaparin Sodium 40 MG/0.4 ML SYRINGE SUBCUT (08:11)
--- NOTE | 2024-11-25 08:18 | PM.PNGS ---
Subjective Subjective Date of Service: 11/25/24 Interval history: No events reported Says he is ?okay? Physical Exam Vital Signs: Vital Signs: Last Vital Signs Temp 98.2 F 11/25/24 07:11 Pulse 78 11/25/24 07:11 Resp 18 11/25/24 07:11 BP 127/82 11/25/24 07:11 Pulse Ox 98 11/25/24 07:11 O2 Del Method Room Air 11/25/24 07:11 O2 Flow Rate 2 11/24/24 10:29 BMI result Body Mass Index 27.3 Const: Other: Mental status as baseline General: no acute distress Resp: Effort & Inspection: normal respiratory effort Cardio: Rate: regular rate GI: Other: Peg tube in place Palpation (GI): Soft to palpation and not firm Objective Data Active Medications Ascorbic Acid (Ascorbic Acid 500 Mg Tablet) 500 mg PO BID [facility] Last Admin: 11/24/24 21:57 Dose: Not Given Documented By: JUANA Non-Admin Reason: NPO Calcium Carbonate (Calcium Carbonate 750 Mg Tab.Chew) 750 mg PO Q4H PRN PRN Reason: Heartburn Cyclobenzaprine HCl (Cyclobenzaprine Hcl 10 Mg Tablet) 10 mg PO TID [facility] Last Admin: 11/24/24 21:57 Dose: Not Given Documented By: JUANA Non-Admin Reason: NPO Enoxaparin Sodium (Enoxaparin Sodium 40 Mg/0.4 Ml Syringe) 40 mg SUBCUT Q24H [facility] Last Admin: 11/25/24 08:11 Dose: 40 mg Documented By: JEANNINE Glycopyrrolate (Glycopyrrolate 0.2 Mg/Ml Vial) 0.1 mg IVPUSH Q4H PRN PRN Reason: secretions Linezolid (Zyvox/D5w) 600 mg in 300 mls @ 300 mls/hr IV Q12H [facility] Last Infusion: 11/25/24 06:10 Dose: Infused Documented By: JUANA Nutrition (Parenteral) (Parenteral Nutrition) 2,400 mls @ 100 mls/hr IV .Q24H [facility]; Protocol Stop: 11/25/24 20:59 Last Admin: 11/24/24 21:57 Dose: 100 mls/hr Documented By: JUANA Lorazepam (Lorazepam 2 Mg/Ml Vial) 0.5 mg IVPUSH Q6H PRN PRN Reason: anxiety/restlessness Last Admin: 11/24/24 13:35 Dose: 0.5 mg Documented By: WALKER Magnesium Hydroxide (Milk Of Magnesia 30 Ml Oral.Susp) 30 ml PO DAILY PRN PRN Reason: Constipation Melatonin (Melatonin 3 Mg Tablet) 6 mg PO BEDTIME PRN PRN Reason: Insomnia Methylprednisolone Sodium Succinate (Methylprednisolone Sod Succ 40 Mg/Ml Vial) 20 mg IVPUSH Q24H [facility] Last Admin: 11/25/24 08:08 Dose: 20 mg Documented By: JEANNINE Morphine Sulfate (Morphine Sulfate 2 Mg/Ml Cartridge) 2 mg IVPUSH Q3H PRN; Protocol PRN Reason: Pain, Severe (Pain Scale 7-10) Last Admin: 11/23/24 09:05 Dose: 2 mg Documented By: TYSON Naloxone HCl (Naloxone Hcl 0.4 Mg/Ml Vial) 0.04 mg IVPUSH Q5M PRN PRN Reason: Excessive sedation or RR < 8 Ondansetron HCl (Ondansetron Hcl 4 Mg/2 Ml Vial) 4 mg IVPUSH Q8H PRN PRN Reason: Nausea and Vomiting Oxycodone HCl (Oxycodone Hcl Immed Release 5 Mg Tablet) 5 mg PO Q6H PRN PRN Reason: Pain, Severe (Pain Scale 7-10) Last Admin: 11/19/24 14:43 Dose: 5 mg Documented By: VINOD Pharmacy Consult (Consult Rx Parenteral Nutrition Ordering) 1 each MISCELLANE DAILY PRN PRN Reason: Consult order Scopolamine (Scopolamine 1.5 Mg Patch.Td.3) 1.5 mg EAR-BEHIND Q72H [facility] Last Admin: 11/24/24 13:35 Dose: 1.5 mg Documented By: WALKER Senna (Sennosides 8.6 Mg Tablet) 17.2 mg PO BEDTIME [facility] Last Admin: 11/24/24 21:57 Dose: Not Given Documented By: JUANA Non-Admin Reason: NPO Sertraline HCl (Sertraline Hcl 50 Mg Tablet) 50 mg PO DAILY [facility] Last Admin: 11/20/24 09:58 Dose: Not Given Documented By: DEBORAMORP Non-Admin Reason: Patient Condition Contraindication Sodium Chloride (0.9 % Sodium Chloride Flush 3 Ml Syringe) 3 ml IVFLUSH QSHIFT [facility] Last Admin: 11/25/24 08:09 Dose: 3 ml Documented By: JEANNINE Vitamin D (Cholecalciferol (Vitamin D3) 25 Mcg Tablet) 50 mcg PO DAILY [facility] Last Admin: 11/20/24 09:58 Dose: Not Given Documented By: PODMORP Non-Admin Reason: Patient Condition Contraindication Labs 11/22/24 06:19 11/25/24 06:55 Labs: Laboratory Results - last 24 hr 11/19/24 11/25/24 16:37 06:55 Anion Gap 13 Estim Creat Clear Calc 192.5 Estimated GFR > 60 Random Glucose 106 Calcium 8.6 Phosphorus 3.5 Magnesium 2.4 C-Reactive Protein 2.97 H Albumin 3.2 L Procalcitonin 0.12 Ur L.pneumophila Ag Not Detected Procedures Date of Service Date of Service: 11/25/24 Progress Note: A&P Assessment and plan (1) Dysphagia: Status: Acute Assessment and Plan: Status post PEG tube placement Doing well postop Keep external bolster snug on the abdominal wall Okay to start on tube feeds today Time Spent With Patient Time: Total time managing care of this patient today ____ minutes. Quality Stroke Does the patient have a stroke diagnosis?: No VTE Prior VTE?: No VTE Risk Level:: Medical - moderate - high VTE Device Contraindication: Treatment Not Indicated VTE Drug Contraindication: N/A - Med Ordered
--- NOTE | 2024-11-25 08:30 | MHC.CLN ---
F/U PEG TUBE PLACED YESTERDAY PLAN TO START TF TODAY PER DR YU REVIEWED LABS RECOMMEND JEVITY 1.0 AT MAX GOAL RATE 85ML/HR WITH 240ML FREE WATER FLUSHES Q 8 HRS TO PROVIDE 2162KCALS (26KCALS/KG), 90G PROTEIN (1.07G/KG), 2423ML TOTAL WATER FROM FORMULA AND FLUSHES (29ML/KG) START TF AT 20ML AND INCREASE BY 10ML Q 4 HRS UNTIL MAX GOAL IS ACHIEVED MONITOR TOLERANCE AND LYTES
--- NOTE | 2024-11-25 09:41 | PM.CNPUL ---
History of Present Illness History of Present Illness Consult date: 11/25/24 Chief complaint: urosepsis Narrative: This is an inpatient pulmonary consultation. The patient is a 39 year old male with underlying history of multiple sclerosis, who presents to the ER from home complaining of generalized weakness, poor appetite with decreased oral intake and fevers and is found to have sepsis and UTI. He was seen in the ER 3 days ago after he accidentally pulled out his suprapubic catheter which was replaced and is currently draining well.? He was sleepy when I saw him and did not give much additional information.? Initial blood work done revealed a leukocytosis of 18.7 K with a left shift and a low grade fever of 99.7 F. Urinalysis revealed elevated specific gravity, small leukocyte esterase and >50 WBC/HPF but with no bacteria. I did personally reviewed her CT scan of the chest demonstrating bilateral bibasilar airspace disease consistent with aspiration pneumonia. The patient is very weak and is not able to cough. He does have a cough assist device at the bedside. In the meantime he did get a PEG tube. Currently being evaluated for worsening neuromuscular disease. We talked about the importance of a tracheostomy. As we bridge to improving his overall neuromuscular disease. The patient is agreeable to this. 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 Microcytic anemia Multiple sclerosis Headache Family History Family History Other No family history of coronary artery disease Family history: reviewed and not pertinent Surgical History Surgical History H/O hernia repair Social History Social History Household Members: Family Household Members Other:: parents Housing: Apartment 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 have visiting nurse or other home services: Yes Unable to assess alcohol history related to: Unknown Alcohol intake: never Patient Tobacco Use Status: Former Tobacco user Tobacco use type: Cigarette Cigarettes Per Day: 0.25 Substance Use Type: Marijuana Advance Directives Date on File: 08/21/22 service: No Current occupational status: disabled Meds Allergies Allergy/AdvReac Type Severity Reaction Status Date / Time doxycycline Allergy Rash Verified 11/18/24 18:53 Active Medications: Current Medications Ascorbic Acid (Ascorbic Acid 500 Mg Tablet) 500 mg PO BID [facility] Last Admin: 11/24/24 21:57 Dose: Not Given Calcium Carbonate (Calcium Carbonate 750 Mg Tab.Chew) 750 mg PO Q4H PRN PRN Reason: Heartburn Cyclobenzaprine HCl (Cyclobenzaprine Hcl 10 Mg Tablet) 10 mg PO TID [facility] [place] Last Admin: 11/24/24 21:57 Dose: Not Given Enoxaparin Sodium (Enoxaparin Sodium 40 Mg/0.4 Ml Syringe) 40 mg SUBCUT Q24H [facility] [place] Last Admin: 11/25/24 08:11 Dose: 40 mg Glycopyrrolate (Glycopyrrolate 0.2 Mg/Ml Vial) 0.1 mg IVPUSH Q4H PRN PRN Reason: secretions Linezolid (Zyvox/D5w) 600 mg in 300 mls @ 300 mls/hr IV Q12H [facility] [place] Last Infusion: 11/25/24 06:10 Dose: Infused Nutrition (Parenteral) (Parenteral Nutrition) 2,400 mls @ 100 mls/hr IV .Q24H [facility]; Protocol Stop: 11/25/24 20:59 Last Admin: 11/24/24 21:57 Dose: 100 mls/hr Lorazepam (Lorazepam 2 Mg/Ml Vial) 0.5 mg IVPUSH Q6H PRN PRN Reason: anxiety/restlessness Last Admin: 11/24/24 13:35 Dose: 0.5 mg Magnesium Hydroxide (Milk Of Magnesia 30 Ml Oral.Susp) 30 ml PO DAILY PRN PRN Reason: Constipation Melatonin (Melatonin 3 Mg Tablet) 6 mg PO BEDTIME PRN PRN Reason: Insomnia Methylprednisolone Sodium Succinate (Methylprednisolone Sod Succ 40 Mg/Ml Vial) 20 mg IVPUSH Q24H [facility] [place] Last Admin: 11/25/24 08:08 Dose: 20 mg Morphine Sulfate (Morphine Sulfate 2 Mg/Ml Cartridge) 2 mg IVPUSH Q3H PRN; Protocol PRN Reason: Pain, Severe (Pain Scale 7-10) Last Admin: 11/23/24 09:05 Dose: 2 mg Naloxone HCl (Naloxone Hcl 0.4 Mg/Ml Vial) 0.04 mg IVPUSH Q5M PRN PRN Reason: Excessive sedation or RR < 8 Ondansetron HCl (Ondansetron Hcl 4 Mg/2 Ml Vial) 4 mg IVPUSH Q8H PRN PRN Reason: Nausea and Vomiting Oxycodone HCl (Oxycodone Hcl Immed Release 5 Mg Tablet) 5 mg PO Q6H PRN PRN Reason: Pain, Severe (Pain Scale 7-10) Last Admin: 11/19/24 14:43 Dose: 5 mg Pharmacy Consult (Consult Rx Parenteral Nutrition Ordering) 1 each MISCELLANE DAILY PRN PRN Reason: Consult order Scopolamine (Scopolamine 1.5 Mg Patch.Td.3) 1.5 mg EAR-BEHIND Q72H [facility] [place] Last Admin: 11/24/24 13:35 Dose: 1.5 mg Senna (Sennosides 8.6 Mg Tablet) 17.2 mg PO BEDTIME [facility] [place] Last Admin: 11/24/24 21:57 Dose: Not Given Sertraline HCl (Sertraline Hcl 50 Mg Tablet) 50 mg PO DAILY [facility] Last Admin: 11/20/24 09:58 Dose: Not Given Sodium Chloride (0.9 % Sodium Chloride Flush 3 Ml Syringe) [facility] Last Admin: 11/25/24 08:09 Dose: 3 ml Vitamin D (Cholecalciferol (Vitamin D3) 25 Mcg Tablet) 50 mcg PO DAILY [facility] [place] Last Admin: 11/20/24 09:58 Dose: Not Given Home Medications ?Medication ?Instructions ?Recorded ?Confirmed ?Last Taken ?Type sertraline 50 mg tablet 50 mg PO DAILY 02/22/24 11/19/24 10/10/24 History clindamycin phosphate 1 % lotion 1 appl topical BID 09/10/24 11/19/24 10/10/24 History cholecalciferol (vitamin D3) 50 50 mcg PO DAILY 10/11/24 11/19/24 10/10/24 History mcg (2,000 unit) capsule (Vitamin D3) clotrimazole-betamethasone 1 1 appl topical BID 12/30/24 02/07/25 12/29/24 History %-0.05 % topical cream cyclobenzaprine 10 mg tablet 10 mg PO TID 10/11/24 11/19/24 10/10/24 History acetaminophen 500 mg tablet 500 mg PO Q6H PRN mild pain 10/21/24 11/19/24 Unknown History prednisone 20 mg tablet 20 mg PO DAILY 10/21/24 11/19/24 Unknown History Physical Exam Vital Signs: Vital Signs: Last Vital Signs Temp 98.2 F 11/25/24 07:11 Pulse 78 11/25/24 07:11 Resp 18 11/25/24 07:11 BP 127/82 11/25/24 07:11 Pulse Ox 98 11/25/24 07:11 O2 Del Method Room Air 11/25/24 07:11 O2 Flow Rate 2 11/24/24 10:29 BMI result Body Mass Index 27.3 Const: Other: Mental status as baseline General: no acute distress Resp: Effort & Inspection: normal respiratory effort Cardio: Rate: regular rate GI: Other: Peg tube in place Palpation (GI): Soft to palpation and not firm Results Laboratory Findings 11/22/24 06:19 11/25/24 06:55 ABG, PT/INR, D-dimer: PT/INR, D-dimer PT 11.9 SEC (10.9-12.4) 11/22/24 06:19 INR 1.0 (0.9-1.1) 11/22/24 06:19 Abnormal lab findings: Abnormal Labs 11/18/24 11/18/24 11/19/24 19:08 20:00 06:50 WBC 18.7 H 18.6 H Hgb 12.9 L 11.9 L Hct 40.7 L 37.0 L MCV 75.9 L 74.6 L MCH 24.1 L 24.0 L RDW 16.9 H 16.4 H MPV Neut % (Auto) 84.3 H Lymph % (Auto) 4.0 L Lymph # (Auto) 0.8 L [place] # (Auto) 2.0 H Abs Immat Gran (auto) 0.08 H Absolute Neuts (auto) 15.8 H Neutrophils % (Manual) 83 H Lymphocytes % (Manual) 9 L Abs Neuts (Manual) 16.0 H Potassium Chloride Carbon Dioxide Anion Gap BUN 8 L 4 L Creatinine 0.43 L Random Glucose Phosphorus C-Reactive Protein 11.77 H Total Protein 8.1 H Albumin Ur Specific [place] >= 1.030 H Urine Protein 300 (3+) H Urine Blood Large (3+) H Ur Leukocyte Esterase Small (1+) H Urine RBC 11-20 H Nasal Screen MRSA (PCR) Nasal S. aureus Screen Random Vancomycin 11/19/24 11/20/24 11/20/24 14:57 06:06 08:26 WBC 14.0 H Hgb 12.0 L Hct 37.4 L MCV 74.8 L MCH 24.0 L RDW 16.4 H MPV Neut % (Auto) Lymph % (Auto) Lymph # (Auto) [place] # (Auto) Abs Immat Gran (auto) Absolute Neuts (auto) Neutrophils % (Manual) Lymphocytes % (Manual) Abs Neuts (Manual) Potassium 3.1 L Chloride Carbon Dioxide Anion Gap BUN 3 L Creatinine 0.46 L Random Glucose Phosphorus C-Reactive Protein Total Protein Albumin Ur Specific [place] Urine Protein Urine Blood Ur Leukocyte Esterase Urine RBC Nasal Screen MRSA (PCR) POSITIVE A Nasal S. aureus Screen POSITIVE A Random Vancomycin 11/21/24 11/21/24 11/22/24 06:27 12:57 06:19 WBC 14.3 H Hgb 11.1 L 11.3 L Hct 35.1 L 35.3 L MCV 74.8 L 74.3 L MCH 23.7 L 23.8 L RDW 16.5 H 16.1 H MPV 13.1 H 12.8 H Neut % (Auto) Lymph % (Auto) Lymph # (Auto) [place] # (Auto) Abs Immat Gran (auto) Absolute Neuts (auto) Neutrophils % (Manual) Lymphocytes % (Manual) Abs Neuts (Manual) Potassium 3.1 L Chloride 109 H Carbon Dioxide 30 H Anion Gap 11 L BUN 5 L 8 L Creatinine 0.47 L Random Glucose 116 H 116 H Phosphorus 2.4 L 2.3 L C-Reactive Protein Total Protein Albumin 3.2 L Ur Specific [place] Urine Protein Urine Blood Ur Leukocyte Esterase Urine RBC Nasal Screen MRSA (PCR) Nasal S. aureus Screen Random Vancomycin 14.5 L 11/22/24 11/23/24 11/24/24 15:36 06:21 06:03 WBC Hgb Hct MCV MCH RDW MPV Neut % (Auto) Lymph % (Auto) Lymph # (Auto) [place] # (Auto) Abs Immat Gran (auto) Absolute Neuts (auto) Neutrophils % (Manual) Lymphocytes % (Manual) Abs Neuts (Manual) Potassium Chloride Carbon Dioxide Anion Gap 11 L BUN 8 L Creatinine 0.49 L Random Glucose 163 H 152 H Phosphorus C-Reactive Protein Total Protein Albumin 3.3 L Ur Specific [place] Urine Protein Urine Blood Ur Leukocyte Esterase Urine RBC Nasal Screen MRSA (PCR) Nasal S. aureus Screen Random Vancomycin 12.8 L 11/25/24 06:55 WBC Hgb Hct MCV MCH RDW MPV Neut % (Auto) Lymph % (Auto) Lymph # (Auto) [place] # (Auto) Abs Immat Gran (auto) Absolute Neuts (auto) Neutrophils % (Manual) Lymphocytes % (Manual) Abs Neuts (Manual) Potassium Chloride Carbon Dioxide Anion Gap BUN Creatinine Random Glucose Phosphorus C-Reactive Protein 2.97 H Total Protein Albumin 3.2 L Ur Specific [place] Urine Protein Urine Blood Ur Leukocyte Esterase Urine RBC Nasal Screen MRSA (PCR) Nasal S. aureus Screen Random Vancomycin Microbiology: Microbiology 11/18/24 19:25 Blood - Venous Blood Culture - Final No growth after 5 days. 11/18/24 19:08 Blood - Venous Blood Culture - Final No growth after 5 days. 11/18/24 22:04 Urine Other - Suprapubic Urine Culture - Final Trichosporon asahii Enterococcus faecalis Assessment and Plan (1) Dysphagia: Qualifiers: Dysphagia type: unspecified Qualified Code(s): R13.10 - Dysphagia, unspecified Status: Acute (2) Demyelinating disease: Status: Acute (3) Aspiration pneumonia: Status: Acute Plan continue CPT with cough assist Agree with need for a tracheostomy for airway clearance Blood gas, if hypercarbic he would benefit from ventilation as well Procedures Date of Service Date of Service: 11/25/24
--- NOTE | 2024-11-25 10:13 | PC.NURSE ---
per DR Bustos hold tube feed today till LP is done , also pt will have a tracheotomy tomorrow and prefers to hold tube feed till the procedure is done
--- NOTE | 2024-11-25 10:28 | HO.POSTANES ---
Post Anesthesia Evaluation Post Anesthesia Evaluation Date of Service: 11/25/24 Vital Signs: Vital Signs Temp Pulse Resp BP Pulse Ox O2 Del Method 11/25/24 07:11 98.2 F 78 18 127/82 98 Room Air 11/25/24 04:00 89 19 112/80 98 Room Air 11/25/24 00:00 97.6 F 80 19 130/60 98 Room Air Anesthesia: Monitored Mental Status: Awake Pain Control: Satisfactory Nausea/Vomiting: None Hydration: Adequate Anesthesia-Related Issues: No Anes. Related Issues
[2024-11-25 10:54] LABS: Venous Blood Gas Refer to POC result
[2024-11-25 10:55] LABS: VBG Base Excess 7.7 mmol/L; VBG HCO3 31 mmol/L (22-26); VBG pCO2 40 mmHg; VBG pH 7.49 (7.32-7.43); VBG pO2 71 mmHg
[2024-11-25] MEDS: Cyclobenzaprine HCl 10 MG TABLET PO (11:22)
[2024-11-25] MEDS: Sertraline HCL 50 MG TABLET PO (11:22)
--- NOTE | 2024-11-25 14:21 | P.PNIM_ITS ---
Subjective Subjective Date of Service: 11/25/24 Interval History: hypoxia resolved discussed tracheostomy with Pulmonary NPO for radiology LP today Review of Systems Review of Systems: Yes all other systems are reviewed and are negative Physical Exam 2 Vital Signs: Vital Signs: Last Vital Signs Temp 98.1 F 11/25/24 11:01 Pulse 74 11/25/24 12:20 Resp 22 H 11/25/24 12:20 BP 117/72 11/25/24 11:01 Pulse Ox 99 11/25/24 12:20 O2 Del Method Room Air 11/25/24 11:01 O2 Flow Rate 2 11/24/24 10:29 BMI result Body Mass Index 27.3 Gen: quadriparesis , no distress HEENT: sclera anicteric, moist mucus membranes Neck: supple Lungs: diminished Heart: regular rate and rhythm, no murmurs Abd: soft, non-tender, non-distended : suprapubic catheter Ext: no edema Skin: warm/well-perfused Neuro: alert and oriented x3, spastic quadraparesis. Psych: appropriate affect Objective Data Active Medications Ascorbic Acid (Ascorbic Acid 500 Mg Tablet) 500 mg PO BID [facility] Last Admin: 11/25/24 11:23 Dose: Not Given Documented By: JEANNINE Non-Admin Reason: NPO Calcium Carbonate (Calcium Carbonate 750 Mg Tab.Chew) 750 mg PO Q4H PRN PRN Reason: Heartburn Cyclobenzaprine HCl (Cyclobenzaprine Hcl 10 Mg Tablet) 10 mg PO TID [facility] Last Admin: 11/25/24 11:22 Dose: 10 mg Documented By: JEANNINE Enoxaparin Sodium (Enoxaparin Sodium 40 Mg/0.4 Ml Syringe) 40 mg SUBCUT Q24H [facility] Last Admin: 11/25/24 08:11 Dose: 40 mg Documented By: JEANNINE Glycopyrrolate (Glycopyrrolate 0.2 Mg/Ml Vial) 0.1 mg IVPUSH Q4H PRN PRN Reason: secretions Linezolid (Zyvox/D5w) 600 mg in 300 mls @ 300 mls/hr IV Q12H [facility] Last Infusion: 11/25/24 06:10 Dose: Infused Documented By: JUANA Nutrition (Parenteral) (Parenteral Nutrition) 2,400 mls @ 100 mls/hr IV .Q24H [facility]; Protocol Stop: 11/25/24 20:59 Last Admin: 11/24/24 21:57 Dose: 100 mls/hr Documented By: JUANA Lorazepam (Lorazepam 2 Mg/Ml Vial) 0.5 mg IVPUSH Q6H PRN PRN Reason: anxiety/restlessness Last Admin: 11/24/24 13:35 Dose: 0.5 mg Documented By: WALKER Magnesium Hydroxide (Milk Of Magnesia 30 Ml Oral.Susp) 30 ml PO DAILY PRN PRN Reason: Constipation Melatonin (Melatonin 3 Mg Tablet) 6 mg PO BEDTIME PRN PRN Reason: Insomnia Methylprednisolone Sodium Succinate (Methylprednisolone Sod Succ 40 Mg/Ml Vial) 20 mg IVPUSH Q24H [facility] Last Admin: 11/25/24 08:08 Dose: 20 mg Documented By: JEANNINE Morphine Sulfate (Morphine Sulfate 2 Mg/Ml Cartridge) 2 mg IVPUSH Q3H PRN; Protocol PRN Reason: Pain, Severe (Pain Scale 7-10) Last Admin: 11/23/24 09:05 Dose: 2 mg Documented By: TYSON Naloxone HCl (Naloxone Hcl 0.4 Mg/Ml Vial) 0.04 mg IVPUSH Q5M PRN PRN Reason: Excessive sedation or RR < 8 Ondansetron HCl (Ondansetron Hcl 4 Mg/2 Ml Vial) 4 mg IVPUSH Q8H PRN PRN Reason: Nausea and Vomiting Oxycodone HCl (Oxycodone Hcl Immed Release 5 Mg Tablet) 5 mg PO Q6H PRN PRN Reason: Pain, Severe (Pain Scale 7-10) Last Admin: 11/19/24 14:43 Dose: 5 mg Documented By: VINOD Pharmacy Consult (Consult Rx Parenteral Nutrition Ordering) 1 each MISCELLANE DAILY PRN PRN Reason: Consult order Scopolamine (Scopolamine 1.5 Mg Patch.Td.3) 1.5 mg EAR-BEHIND Q72H [facility] Last Admin: 11/24/24 13:35 Dose: 1.5 mg Documented By: WALKER Senna (Sennosides 8.6 Mg Tablet) 17.2 mg PO BEDTIME [facility] Last Admin: 11/24/24 21:57 Dose: Not Given Documented By: JUANA Non-Admin Reason: NPO Sertraline HCl (Sertraline Hcl 50 Mg Tablet) 50 mg PO DAILY [facility] Last Admin: 11/25/24 11:22 Dose: 50 mg Documented By: JEANNINE Sodium Chloride (0.9 % Sodium Chloride Flush 3 Ml Syringe) 3 ml IVFLUSH QSHIFT [facility] Last Admin: 11/25/24 08:09 Dose: 3 ml Documented By: JEANNINE Vitamin D (Cholecalciferol (Vitamin D3) 25 Mcg Tablet) 50 mcg PO DAILY [facility] Last Admin: 11/25/24 11:23 Dose: Not Given Documented By: JEANNINE Non-Admin Reason: NPO Labs 11/22/24 06:19 11/25/24 06:55 Labs: Laboratory Results - last 24 hr 11/19/24 11/25/24 11/25/24 16:37 06:55 10:49 VBG pH 7.49 H VBG pCO2 40 VBG pO2 71 VBG HCO3 31 H VBG O2 Saturation 95.0 VBG Base Excess 7.7 Anion Gap 13 Estim Creat Clear Calc 192.5 Estimated GFR > 60 Random Glucose 106 Calcium 8.6 Phosphorus 3.5 Magnesium 2.4 C-Reactive Protein 2.97 H Albumin 3.2 L Procalcitonin 0.12 Ur L.pneumophila Ag Not Detected Assessment and Plan (1) Dysphagia: Status: Acute (2) Demyelinating disease: Status: Acute (3) Neurogenic urinary bladder disorder: Status: Acute (4) Sepsis: Status: Acute (5) Acute UTI: Status: Acute Plan [id number] M with 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, paraplegia, neurogenic bladder with suprapubic catheter, frequent UTIs presenting with weakness, fever, and anorexia; found to have sepsis suspected due to UTI after suprapubic catheter replacement 3d prior to admission; also found to have pneumonia likely due to aspiration sepsis due to complicated UTI likely due to chronic suprapubic catheter + pneumonia - sepsis resolved, s/p IV cefepime and IV vancomycin 11/19-11/22, now on IV linezolid started 11/22- - BCx negative at 48hr; MRSA swab positive; resp pathogen panel negative; urinary antigens for Legionella and pneumococcus negative - lactate normal. PCT jay from 0.08 to 5.97 and back down to 0.12; WBC normalized - chest percussive therapy for secretions/suctioning as needed - scopolamine patch q72h - glycopyrrolate q4h prn - urine growing Enterococcus faecalis [id number] and Trichosporon asahii greater than 100,000; colonization? Recent urine culture October 21 grew E coli and Trichosporon asahii; seen by ID and recommended linezolid - consulted pulmonology regarding question of tracheostomy dysphagia/aspiration/difficulty clearing throat - MBSS with gabby aspiration; not safe for POs - seen by General surgery and PEG placed 11/24; on IV PPN; advance to full tube feeds as tolerated then d/c PPN acute hypoxic respiratory failure - weaned off O2 after anesthesia wore off NMO/MS or other demyelinating disease -seen by neurologist Dr. Huber; recommended 1g methylprednisolone daily x3 doses 11/21-11/23; continue IV Solu Medrol 20 mg daily, was on 20 mg/d prednisone at home - on 11/23 neuro recommended MRI brain/C-spine and thoracic spine due to atypical presentation with MS being 1 possibility, neuromyelitis optica syndrome was a possibility though patient never had optic neuritis. 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 Huber recommend LP to obtain CSF for glucose, protein, cell, oligoclonal bands and autoimmune encephalitis panel; to be done by IR today [id number] - repleted VTE ppx - enoxaparin dispo - will discuss dispo plan with patient currently residing at home In my clinical judgment, the patient requires continued inpatient hospitalization for the following reasons: IV ABX, PPN, tube feeds, LP, tracheostomy Total time managing care of this patient today: 50 minutes. Quality Stroke Does the patient have a stroke diagnosis?: No VTE Prior VTE?: No VTE Risk Level:: Medical - moderate - high VTE Device Contraindication: Treatment Not Indicated VTE Drug Contraindication: N/A - Med Ordered
[2024-11-25] MEDS: Morphine Sulfate 2 MG/ML CARTRIDGE IVPUSH ×2 (15:28→21:53)
[2024-11-25 16:55] LABS: Glucose CSF 58 mg/dL; Total Protein CSF 111.6 mg/dL (15-45)
[2024-11-25 17:04] LABS: CSF Appearance Clear, Colorless; CSF Tube # 1
[2024-11-25 17:11] LABS: Cryptococcus neoformans/gattii Not Detected (Not Detect.); Enterovirus Not Detected (Not Detect.); Escherichia coli K1 Not Detected (Not Detect.); Haemophilus influenzae Not Detected (Not Detect.); Herpes simplex virus 1 Not Detected (Not Detect.); Herpes simplex virus 2 Not Detected (Not Detect.); Human herpesvirus 6 Not Detected (Not Detect.); Human parechovirus Not Detected (Not Detect.); Listeria monocytogenes Not Detected (Not Detect.); Neisseria meningitidis Not Detected (Not Detect.); Streptococcus agalactiae Not Detected (Not Detect.); Streptococcus pneumoniae Not Detected (Not Detect.); Varicella zoster virus Not Detected (Not Detect.)
[2024-11-25] MEDS: Ascorbic Acid 500 MG TABLET G-TUBE (20:28)
[2024-11-25] MEDS: Cyclobenzaprine HCl 10 MG TABLET G-TUBE (20:29)
[2024-11-25] MEDS: Sennosides 8.6 MG TABLET 17.2 MG G-TUBE (20:29)
[2024-11-25] MEDS: Glycopyrrolate 0.2 MG/ML VIAL 0.1 MG IVPUSH (20:29)
[2024-11-26] VITALS (7 sets, daily range): BP systolic 118–126; BP diastolic 67–81; PULSE 67–88; RESP 18–20; TEMP 36.1–36.4; O2SAT 96–99
[2024-11-26] MEDS: Linezolid/D5W 600 MG/300 ML PIGGYBACK 300 MG IV (04:00)
[2024-11-26 06:50] LABS: Appearance CSF CLEAR; CSF Tube # 1; Color CSF COLORLESS; Red Blood Cell CSF 67 MM*3; White Blood Cell CSF 2 MM*3
[2024-11-26 06:51] LABS: CSF Monos 46 %; Lymphocytes CSF 50 %; Neutrophils CSF 4 %
[2024-11-26 07:27] LABS: Albumin Level 3.3 g/dL (3.5-5.0); Anion Gap 13 (12-20); Blood Urea Nitrogen 12 mg/dL (9-16); Calcium 8.7 mg/dL (8.4-10.2); Carbon Dioxide 25 mmol/L (22-29); Chloride 106 mmol/L (96-108); Creatinine Clr Calc Pharmacy 192.5; Estimated Glomerular Filt Rate > 60; Glucose Random 83 mg/dL (60-115); Magnesium 2.2 mg/dL (1.6-2.6); Phosphorus 3.6 mg/dL (2.7-4.5); Potassium 3.6 mmol/L (3.3-5.1); Sodium 140 mmol/L (135-145)
[2024-11-26] MEDS: Cholecalciferol (Vitamin D3) 25 MCG TABLET 50 MCG G-TUBE (09:03)
[2024-11-26] MEDS: Cyclobenzaprine HCl 10 MG TABLET G-TUBE ×3 (09:03→21:07)
[2024-11-26] MEDS: Ascorbic Acid 500 MG TABLET G-TUBE ×2 (09:03→21:07)
[2024-11-26] MEDS: 0.9 % Sodium Chloride Flush 3 ML SYRINGE IVFLUSH ×3 (09:04→21:11)
[2024-11-26] MEDS: methylPREDNISolone Sod Succ 40 MG/ML VIAL 20 MG IVPUSH (09:04)
[2024-11-26] MEDS: Sertraline HCL 50 MG TABLET G-TUBE (09:05)
[2024-11-26] MEDS: Morphine Sulfate 2 MG/ML CARTRIDGE IVPUSH ×2 (09:17→17:36)
--- NOTE | 2024-11-26 10:40 | MHC.CM.PN ---
Addendum entered by Nicole Andrade RN 11/26/24 13:33: PT AGREEABLE TO FAMILY MEETING AND CM, HOSPITALIST MET W/PT, PT'S BROTHER HCP REBA GODWIN, PARENTS AND ADDITIONAL FAMILY MEMBER PRESENT, HOSPITALIST DISCUSSED W/FAMILY PT'S STATUS AND REASONING FOR TRACH PLACEMENT BEFORE IT BECOMES AN EMERGENT NEED, PT CONT'S TO DECLINE TRACH PLACEMENT AT THIS TIME HOWEVER IS AGREEABLE TO FOLLOW-P W/DR. [place] OUTPT, CM WILL NOTIFY RESPIRATORY PT WILL NEED SUCTION AT HOME AND FAMILY WILL NEED TEACHING. FAMILY ALSO AWARE LIAISON FROM [facility] C[facility] WILL REACH OUT TO [facility] TO SET UP TIME FOR TEACH ON WEDNESDAY 11/29 AND THAT WOULD BE THE SOONEST PT WOULD BE ABLE TO DC HOME, PT HAS NOT YET REACHED HIS GOAL RATE HOWEVER ANTIC PT WILL OVER W/E, THERE IS A POSSIBILITY PT CAN ALSO SWITCH OVER TO BOLUS FEEDS IF TOLERATING PUMP OKAY. FAMILY REQUESTING DR. COLEMAN IF THEY NEED NEURO FOLLOW UP WELL. Addendum entered by Nicole Andrade RN 11/26/24 11:04: PT ALSO W/NEW PEG TUBE, FAMILY WILL NEED TEACHING AND WILL COME IN TODAY AT 1PM TO MEET W/CM AND HOSPITALIST. Original Note: EMR REVIEWED, PT W/MS/UROSEPSIS AND ANTIC NEED FOR TRACH PER PULMONOLGY, CM MET W/PT AND BROUGHT SCREWHEAD POLISHER IN CASE OF NEED FOR TRANSLATION, PT INITIALLY SEEMED UNSURE HOWEVER THEN REPORTS THAT SOMEONE SPOKE W/HIM ABOUT THE TRACH YESTERDAY HOWEVER PT IS REPORTING VERY CLEARLY THAT HE DOES NOT WANT TO HAVE A TRACH PLACED, PT ALSO REPORTING HE DOES NOT WANT CM TO CONTACT HIS BROTHER/HCP TATO OR CONTACT OTHER FAMILY MEMBERS FOR A FAMILY MEETING. PT ALSO REPORTS HIS PARENTS AND SISTER ARE ALWAYS AT HOME AND HE WOULD NEED AN AMBULANCE RIDE HOME. CM WILL CONT TO FOLLOW DC NEEDS.
[2024-11-26] MEDS: Enoxaparin Sodium 40 MG/0.4 ML SYRINGE SUBCUT (11:21)
--- NOTE | 2024-11-26 11:22 | P.PNIM_ITS ---
Subjective Subjective Date of Service: 11/26/24 Interval History: s/p LP yesterday now adamantly opposed to tracheostomy coughing, thin sputum has not yet started tube feeds Review of Systems Review of Systems: Yes all other systems are reviewed and are negative Physical Exam 2 Vital Signs: Vital Signs: Last Vital Signs Temp 96.9 F 11/26/24 08:00 Pulse 70 11/26/24 08:00 Resp 18 11/26/24 08:00 BP 123/73 11/26/24 08:00 Pulse Ox 96 11/26/24 10:00 O2 Del Method Room Air 11/26/24 10:00 O2 Flow Rate 2 11/24/24 10:29 BMI result Body Mass Index 27.3 Gen: quadriparesis , no distress HEENT: sclera anicteric, moist mucus membranes Neck: supple Lungs: diminished Heart: regular rate and rhythm, no murmurs Abd: soft, non-tender, non-distended : suprapubic catheter Ext: no edema Skin: warm/well-perfused Neuro: alert and oriented x3, spastic quadraparesis. Psych: appropriate affect Objective Data Active Medications Ascorbic Acid (Ascorbic Acid 500 Mg Tablet) 500 mg G-TUBE BID [facility] Last Admin: 11/26/24 09:03 Dose: 500 mg Documented By: JEANNINE Cyclobenzaprine HCl (Cyclobenzaprine Hcl 10 Mg Tablet) 10 mg G-TUBE TID [facility] Last Admin: 11/26/24 09:03 Dose: 10 mg Documented By: JEANNINE Enoxaparin Sodium (Enoxaparin Sodium 40 Mg/0.4 Ml Syringe) 40 mg SUBCUT Q24H [facility] Last Admin: 11/26/24 11:21 Dose: 40 mg Documented By: JEANNINE Glycopyrrolate (Glycopyrrolate 0.2 Mg/Ml Vial) 0.1 mg IVPUSH Q4H PRN PRN Reason: secretions Last Admin: 11/25/24 20:29 Dose: 0.1 mg Documented By: ALONDRA Comments: Linezolid (Zyvox/D5w) 600 mg in 300 mls @ 300 mls/hr IV Q12H [facility] Last Infusion: 11/26/24 05:52 Dose: Infused Documented By: ALONDRA Lorazepam (Lorazepam 2 Mg/Ml Vial) 0.5 mg IVPUSH Q6H PRN PRN Reason: anxiety/restlessness Last Admin: 11/24/24 13:35 Dose: 0.5 mg Documented By: WALKER Methylprednisolone Sodium Succinate (Methylprednisolone Sod Succ 40 Mg/Ml Vial) 20 mg IVPUSH Q24H [facility] Last Admin: 11/26/24 09:04 Dose: 20 mg Documented By: JEANNINE Morphine Sulfate (Morphine Sulfate 2 Mg/Ml Cartridge) 2 mg IVPUSH Q3H PRN; Protocol PRN Reason: Pain, Severe (Pain Scale 7-10) Last Admin: 11/26/24 09:17 Dose: 2 mg Documented By: JEANNINE Naloxone HCl (Naloxone Hcl 0.4 Mg/Ml Vial) 0.04 mg IVPUSH Q5M PRN PRN Reason: Excessive sedation or RR < 8 Ondansetron HCl (Ondansetron Hcl 4 Mg/2 Ml Vial) 4 mg IVPUSH Q8H PRN PRN Reason: Nausea and Vomiting Oxycodone HCl (Oxycodone Hcl Immed Release 5 Mg Tablet) 5 mg G-TUBE Q6H PRN PRN Reason: Pain, Severe (Pain Scale 7-10) Scopolamine (Scopolamine 1.5 Mg Patch.Td.3) 1.5 mg EAR-BEHIND Q72H [facility] Last Admin: 11/24/24 13:35 Dose: 1.5 mg Documented By: WALKER Senna (Sennosides 8.6 Mg Tablet) 17.2 mg G-TUBE BEDTIME [facility] Last Admin: 11/25/24 20:29 Dose: 17.2 mg Documented By: ALONDRA Sertraline HCl (Sertraline Hcl 50 Mg Tablet) 50 mg G-TUBE DAILY [facility] Last Admin: 11/26/24 09:05 Dose: 50 mg Documented By: JEANNINE Sodium Chloride (0.9 % Sodium Chloride Flush 3 Ml Syringe) 3 ml IVFLUSH QSHIFT [facility] Last Admin: 11/26/24 09:04 Dose: 3 ml Documented By: JEANNINE Vitamin D (Cholecalciferol (Vitamin D3) 25 Mcg Tablet) 50 mcg G-TUBE DAILY [facility] Last Admin: 11/26/24 09:03 Dose: 50 mcg Documented By: JEANNINE Labs 11/22/24 06:19 11/26/24 06:26 Labs: Laboratory Results - last 24 hr 11/25/24 11/25/24 11/25/24 14:10 14:20 14:20 Anion Gap Estim Creat Clear Calc Estimated GFR Random Glucose Calcium Phosphorus Magnesium Albumin CSF Tube Number Cancelled 1 Cancelled CSF Volume Cancelled CSF Appearance Cancelled CSF Color Cancelled CSF WBC Cancelled CSF RBC Cancelled CSF Neutrophils Cancelled CSF Lymphocytes Cancelled CSF Monocytes % Cancelled CSF Other Cells % Cancelled CSF Appearance (b) CSF Glucose CSF Total Protein CSF C.neoform/gat PCR CSF CMV DNA (PCR) CSF Enterovirus (PCR) CSF E. coli K1 (PCR) CSF H. influenzae (PCR) CSF HSV I (PCR) CSF HSV II (PCR) CSF HHV 6 (PCR) CSF L.monocytogenes PCR CSF N. meningitidis PCR CSF Parechovirus (PCR) CSF S. agalactiae (PCR) CSF S. pneumoniae (PCR) CSF VZV (PCR) 11/25/24 11/25/24 11/25/24 14:20 14:20 14:20 Anion Gap Estim Creat Clear Calc Estimated GFR Random Glucose Calcium Phosphorus Magnesium Albumin CSF Tube Number 1 CSF Volume Cancelled 4.0 CSF Appearance Cancelled CLEAR CSF Color Cancelled CSF WBC CSF RBC CSF Neutrophils CSF Lymphocytes CSF Monocytes % CSF Other Cells % CSF Appearance (b) CSF Glucose CSF Total Protein CSF C.neoform/gat PCR CSF CMV DNA (PCR) CSF Enterovirus (PCR) CSF E. coli K1 (PCR) CSF H. influenzae (PCR) CSF HSV I (PCR) CSF HSV II (PCR) CSF HHV 6 (PCR) CSF L.monocytogenes PCR CSF N. meningitidis PCR CSF Parechovirus (PCR) CSF S. agalactiae (PCR) CSF S. pneumoniae (PCR) CSF VZV (PCR) 11/25/24 11/25/24 11/25/24 14:20 14:20 14:20 Anion Gap Estim Creat Clear Calc Estimated GFR Random Glucose Calcium Phosphorus Magnesium Albumin CSF Tube Number CSF Volume CSF Appearance CSF Color COLORLESS CSF WBC Cancelled 2 CSF RBC Cancelled 67 CSF Neutrophils Cancelled CSF Lymphocytes CSF Monocytes % CSF Other Cells % CSF Appearance (b) CSF Glucose CSF Total Protein CSF C.neoform/gat PCR CSF CMV DNA (PCR) CSF Enterovirus (PCR) CSF E. coli K1 (PCR) CSF H. influenzae (PCR) CSF HSV I (PCR) CSF HSV II (PCR) CSF HHV 6 (PCR) CSF L.monocytogenes PCR CSF N. meningitidis PCR CSF Parechovirus (PCR) CSF S. agalactiae (PCR) CSF S. pneumoniae (PCR) CSF VZV (PCR) 11/25/24 11/25/24 11/25/24 14:20 14:20 14:20 Anion Gap Estim Creat Clear Calc Estimated GFR Random Glucose Calcium Phosphorus Magnesium Albumin CSF Tube Number CSF Volume CSF Appearance CSF Color CSF WBC CSF RBC CSF Neutrophils 4 CSF Lymphocytes Cancelled 50 CSF Monocytes % Cancelled 46 CSF Other Cells % Cancelled CSF Appearance (b) Clear, Colorless CSF Glucose 58 CSF Total Protein 111.6 H CSF C.neoform/gat PCR Not Detected CSF CMV DNA (PCR) Not Detected CSF Enterovirus (PCR) Not Detected CSF E. coli K1 (PCR) Not Detected CSF H. influenzae (PCR) Not Detected CSF HSV I (PCR) Not Detected CSF HSV II (PCR) Not Detected CSF HHV 6 (PCR) Not Detected CSF L.monocytogenes PCR Not Detected CSF N. meningitidis PCR Not Detected CSF Parechovirus (PCR) Not Detected CSF S. agalactiae (PCR) Not Detected CSF S. pneumoniae (PCR) Not Detected CSF VZV (PCR) Not Detected 11/26/24 06:26 Anion Gap 13 Estim Creat Clear Calc 192.5 Estimated GFR > 60 Random Glucose 83 Calcium 8.7 Phosphorus 3.6 Magnesium 2.2 Albumin 3.3 L CSF Tube Number CSF Volume CSF Appearance CSF Color CSF WBC CSF RBC CSF Neutrophils CSF Lymphocytes CSF Monocytes % CSF Other Cells % CSF Appearance (b) CSF Glucose CSF Total Protein CSF C.neoform/gat PCR CSF CMV DNA (PCR) CSF Enterovirus (PCR) CSF E. coli K1 (PCR) CSF H. influenzae (PCR) CSF HSV I (PCR) CSF HSV II (PCR) CSF HHV 6 (PCR) CSF L.monocytogenes PCR CSF N. meningitidis PCR CSF Parechovirus (PCR) CSF S. agalactiae (PCR) CSF S. 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, paraplegia, neurogenic bladder with suprapubic catheter, frequent UTIs presenting with weakness, fever, and anorexia; found to have sepsis suspected due to UTI after suprapubic catheter replacement 3d prior to admission; also found to have pneumonia likely due to aspiration sepsis due to complicated UTI likely due to chronic suprapubic catheter + pneumonia - sepsis resolved, s/p IV cefepime and IV vancomycin 11/19-11/22, now on IV linezolid started 11/22, plan end date 11/29 for total 10 days of therapy - BCx negative at 48hr; MRSA swab positive; resp pathogen panel negative; urinary antigens for Legionella and pneumococcus negative - lactate normal. PCT jay from 0.08 to 5.97 and back down to 0.12; WBC normalized - chest percussive therapy for secretions/suctioning as needed - scopolamine patch q72h - glycopyrrolate q4h prn - urine growing Enterococcus faecalis [id number] and Trichosporon asahii greater than 100,000; colonization? Recent urine culture October 21 grew E coli and Trichosporon asahii; seen by ID and recommended linezolid, will continue until 11/29 - consulted pulmonology regarding question of tracheostomy as pt unable to manage secretions, but now pt is refusing; will meet with pt and family to discuss dysphagia/aspiration/difficulty clearing throat - MBSS with gabby aspiration; not safe for POs - seen by General surgery and PEG placed 11/24; d/c IV PPN; start tube feeds and advance as tolerated acute hypoxic respiratory failure - weaned off O2 after anesthesia wore off NMO/MS or other demyelinating disease -seen by neurologist Dr. Huber; recommended 1g methylprednisolone daily x3 doses 11/21-11/23; continue IV Solu Medrol 20 mg daily, was on 20 mg/d prednisone at home - on 11/23 neuro recommended MRI brain/C-spine and thoracic spine due to atypical presentation with MS being 1 possibility, neuromyelitis optica syndrome was a possibility though patient never had optic neuritis. 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 Huber recommend LP to obtain CSF for glucose, protein, cell, oligoclonal bands and autoimmune encephalitis panel; done by IR 11/25. CSF shows markedly elevated protein. Oligoclonal bands and autoimmun encephalitis antibodies pending hypoK/hypoPO4 - repleted VTE ppx - enoxaparin dispo - to discuss with family In my clinical judgment, the patient requires continued inpatient hospitalization for the following reasons: IV ABX, tube feeds, question of tracheostomy, disposition in question Total time managing care of this patient today: 55 minutes. Quality Stroke Does the patient have a stroke diagnosis?: No VTE Prior VTE?: No VTE Risk Level:: Medical - moderate - high VTE Device Contraindication: Treatment Not Indicated VTE Drug Contraindication: N/A - Med Ordered
--- NOTE | 2024-11-26 13:32 | MHC.CLN ---
F/U PEG TUBE PLACED 11/24. TUBE FEEDING STARTED TODAY. JEVITY 1.0 RUNNING AT 20 ML PER HOUR. RECOMMEND CONTINUE TO ADVANCE FORMULA TO MAX GOAL RATE: JEVITY 1.0 AT MAX GOAL RATE 85ML/HR WITH 240ML FREE WATER FLUSHES Q 8 HRS TO PROVIDE 2162KCALS (26KCALS/KG), 90G PROTEIN (1.07G/KG), 2423ML TOTAL WATER FROM FORMULA AND FLUSHES (29ML/KG). MONITOR FOR TUBE FEED TOLERANCE AND PLAN OF CARE.
[2024-11-26] MEDS: Linezolid 600 MG TABLET G-TUBE (16:37)
[2024-11-26] MEDS: Sennosides 8.6 MG TABLET 17.2 MG G-TUBE (21:08)
[2024-11-26] MEDS: Glycopyrrolate 0.2 MG/ML VIAL 0.1 MG IVPUSH (21:08)
[2024-11-26] MEDS: oxyCODONE HCl Immed Release 5 MG TABLET G-TUBE (21:10)
[2024-11-27] VITALS (7 sets, daily range): BP systolic 105–137; BP diastolic 64–88; PULSE 76–96; RESP 14–19; TEMP 35.9–36.6; O2SAT 95–99
[2024-11-27] MEDS: Glycopyrrolate 0.2 MG/ML VIAL 0.1 MG IVPUSH (02:24)
[2024-11-27] MEDS: Linezolid 600 MG TABLET G-TUBE ×2 (05:37→17:05)
[2024-11-27] MEDS: oxyCODONE HCl Immed Release 5 MG TABLET G-TUBE ×2 (05:39→11:51)
[2024-11-27 06:51] LABS: Oligoclonal Serum Yes
[2024-11-27 07:14] LABS: Anion Gap 13 (12-20); Blood Urea Nitrogen 12 mg/dL (9-16); Calcium 8.6 mg/dL (8.4-10.2); Carbon Dioxide 27 mmol/L (22-29); Chloride 104 mmol/L (96-108); Creatinine Clr Calc Pharmacy 188.8; Estimated Glomerular Filt Rate > 60; Glucose Random 96 mg/dL (60-115); Magnesium 2.2 mg/dL (1.6-2.6); Phosphorus 4.1 mg/dL (2.7-4.5); Potassium 3.5 mmol/L (3.3-5.1); Sodium 140 mmol/L (135-145)
[2024-11-27] MEDS: Ascorbic Acid 500 MG TABLET G-TUBE ×2 (07:27→21:08)
[2024-11-27] MEDS: Cyclobenzaprine HCl 10 MG TABLET G-TUBE ×3 (07:27→21:08)
[2024-11-27] MEDS: Cholecalciferol (Vitamin D3) 25 MCG TABLET 50 MCG G-TUBE (07:27)
[2024-11-27] MEDS: Sertraline HCL 50 MG TABLET G-TUBE (07:28)
[2024-11-27] MEDS: Enoxaparin Sodium 40 MG/0.4 ML SYRINGE SUBCUT (07:28)
[2024-11-27] MEDS: methylPREDNISolone Sod Succ 40 MG/ML VIAL 20 MG IVPUSH (07:28)
[2024-11-27] MEDS: 0.9 % Sodium Chloride Flush 3 ML SYRINGE IVFLUSH ×3 (07:29→21:28)
--- NOTE | 2024-11-27 12:27 | HO.PM.IMPN ---
Subjective Subjective Date of Service: 11/27/24 Interval History: tolerating tube feeds, at 60 mL/hr, goal 85 mL/hr minimal cough, minimal secretions Review of Systems Review of Systems: Yes all other systems are reviewed and are negative Physical Exam Vital Signs: Vital Signs: Last Vital Signs Temp 97.2 F 11/27/24 12:00 Pulse 96 11/27/24 12:00 Resp 16 11/27/24 12:00 BP 105/66 11/27/24 12:00 Pulse Ox 95 11/27/24 12:00 O2 Del Method Room Air 11/27/24 12:00 O2 Flow Rate 2 11/24/24 10:29 BMI result Body Mass Index 27.3 Gen: quadriparesis , no distress HEENT: sclera anicteric, moist mucus membranes Neck: supple Lungs: diminished Heart: regular rate and rhythm, no murmurs Abd: soft, non-tender, non-distended : suprapubic catheter Ext: no edema Skin: warm/well-perfused Neuro: alert and oriented x3, spastic quadraparesis. Psych: appropriate affect Objective Data Active Medications Ascorbic Acid (Ascorbic Acid 500 Mg Tablet) 500 mg G-TUBE BID [facility] Last Admin: 11/27/24 07:27 Dose: 500 mg Documented By: ANAM Cyclobenzaprine HCl (Cyclobenzaprine Hcl 10 Mg Tablet) 10 mg G-TUBE TID [facility] Last Admin: 11/27/24 07:27 Dose: 10 mg Documented By: ANAM Enoxaparin Sodium (Enoxaparin Sodium 40 Mg/0.4 Ml Syringe) 40 mg SUBCUT Q24H [facility] Last Admin: 11/27/24 07:28 Dose: 40 mg Documented By: ANAM Glycopyrrolate (Glycopyrrolate 0.2 Mg/Ml Vial) 0.1 mg IVPUSH Q4H PRN PRN Reason: secretions Last Admin: 11/27/24 02:24 Dose: 0.1 mg Documented By: ALONDRA Linezolid (Linezolid 600 Mg Tablet) 600 mg G-TUBE Q12H [facility] Last Admin: 11/27/24 05:37 Dose: 600 mg Documented By: ALONDRA Lorazepam (Lorazepam 2 Mg/Ml Vial) 0.5 mg IVPUSH Q6H PRN PRN Reason: anxiety/restlessness Last Admin: 11/24/24 13:35 Dose: 0.5 mg Documented By: WALKER Methylprednisolone Sodium Succinate (Methylprednisolone Sod Succ 40 Mg/Ml Vial) 20 mg IVPUSH Q24H [facility] Last Admin: 11/27/24 07:28 Dose: 20 mg Documented By: ANAM Morphine Sulfate (Morphine Sulfate 2 Mg/Ml Cartridge) 2 mg IVPUSH Q3H PRN; Protocol PRN Reason: Pain, Severe (Pain Scale 7-10) Last Admin: 11/26/24 17:36 Dose: 2 mg Documented By: JEANNINE Naloxone HCl (Naloxone Hcl 0.4 Mg/Ml Vial) 0.04 mg IVPUSH Q5M PRN PRN Reason: Excessive sedation or RR < 8 Ondansetron HCl (Ondansetron Hcl 4 Mg/2 Ml Vial) 4 mg IVPUSH Q8H PRN PRN Reason: Nausea and Vomiting Oxycodone HCl (Oxycodone Hcl Immed Release 5 Mg Tablet) 5 mg G-TUBE Q6H PRN PRN Reason: Pain, Severe (Pain Scale 7-10) Last Admin: 11/27/24 11:51 Dose: 5 mg Documented By: ANAM Scopolamine (Scopolamine 1.5 Mg Patch.Td.3) 1.5 mg EAR-BEHIND Q72H [facility] Last Admin: 11/24/24 13:35 Dose: 1.5 mg Documented By: WALKER Senna (Sennosides 8.6 Mg Tablet) 17.2 mg G-TUBE BEDTIME [facility] Last Admin: 11/26/24 21:08 Dose: 17.2 mg Documented By: ALONDRA Sertraline HCl (Sertraline Hcl 50 Mg Tablet) 50 mg G-TUBE DAILY [facility] Last Admin: 11/27/24 07:28 Dose: 50 mg Documented By: ANAM Sodium Chloride (0.9 % Sodium Chloride Flush 3 Ml Syringe) 3 ml IVFLUSH QSHIFT [facility] Last Admin: 11/27/24 07:29 Dose: 3 ml Documented By: ANAM Vitamin D (Cholecalciferol (Vitamin D3) 25 Mcg Tablet) 50 mcg G-TUBE DAILY [facility] Last Admin: 11/27/24 07:27 Dose: 50 mcg Documented By: ANAM Labs 11/22/24 06:19 11/27/24 06:21 Labs: Laboratory Results - last 24 hr 11/27/24 06:21 Hold Purple Top SEE NOTE Anion Gap 13 Estim Creat Clear Calc 188.8 Estimated GFR > 60 Random Glucose 96 Calcium 8.6 Phosphorus 4.1 Magnesium 2.2 Microbiology Microbiology Results: Microbiology 11/25/24 14:20 Gram Stain - Final Cerebrospinal Fluid CSF Examination - Final Fluid Description - Final CSF Culture - Preliminary No growth after 2 days Assessment and Plan (1) Dysphagia: Status: Acute (2) Demyelinating disease: Status: Acute (3) Neurogenic urinary bladder disorder: Status: Acute (4) Sepsis: Status: Acute (5) Acute UTI: Status: Acute Plan d10 for 39 yo M with 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, paraplegia, neurogenic bladder with suprapubic catheter, frequent UTIs presenting with weakness, fever, and anorexia; found to have sepsis suspected due to UTI after suprapubic catheter replacement 3d prior to admission; also found to have pneumonia likely due to aspiration sepsis due to complicated UTI likely due to chronic suprapubic catheter + pneumonia - sepsis resolved, s/p IV cefepime and IV vancomycin 11/19-11/22, now on IV linezolid started 11/22, plan end date 11/29 for total 10 days of therapy - BCx negative at 48hr; MRSA swab positive; resp pathogen panel negative; urinary antigens for Legionella and pneumococcus negative - lactate normal. PCT jay from 0.08 to 5.97 and back down to 0.12; WBC normalized - chest percussive therapy for secretions/suctioning as needed - scopolamine patch q72h - glycopyrrolate q4h prn - urine growing Enterococcus faecalis [id number] and Trichosporon asahii greater than 100,000; colonization? Recent urine culture October 21 grew E coli and Trichosporon asahii; seen by ID and recommended linezolid, will continue until 11/29 - consulted pulmonology regarding question of tracheostomy as pt unable to manage secretions, but pt refuses; at family meeting 11/26, pt also refused; recommend outpt Pulm follow-up dysphagia/aspiration/difficulty clearing throat - MBSS with gabby aspiration; not safe for POs - seen by General Surgery and PEG placed 11/24; d/c'ed IV PPN; started tube feeds and advance as tolerated to 85 mL/hr acute hypoxic respiratory failure - weaned off O2 after anesthesia wore off NMO/MS or other demyelinating disease -seen by neurologist Dr. Huber; recommended 1g methylprednisolone daily x3 doses 11/21-11/23; continue IV Solu Medrol 20 mg daily, was on 20 mg/d prednisone at home - on 11/23 neuro recommended MRI brain/C-spine and thoracic spine due to atypical presentation with MS being 1 possibility, neuromyelitis optica syndrome was a possibility though patient never had optic neuritis. 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 Huber recommend LP to obtain CSF for glucose, protein, cell, oligoclonal bands and autoimmune encephalitis panel; done by IR 11/25. CSF shows markedly elevated protein. Oligoclonal bands and autoimmune encephalitis antibodies pending hypoK/hypoPO4 - repleted VTE ppx - enoxaparin dispo - family wishes to take him back and be trained in tube feeds; [facility] to meet with them 11/29; consider transition to bolus feeds in consultation with Nutrition In my clinical judgment, the patient requires continued inpatient hospitalization for the following reasons: IV ABX, tube feeds Total time managing care of this patient today: 45 minutes. Quality Stroke Does the patient have a stroke diagnosis?: No VTE Prior VTE?: No VTE Risk Level:: Medical - moderate - high VTE Device Contraindication: Treatment Not Indicated VTE Drug Contraindication: N/A - Med Ordered
--- NOTE | 2024-11-27 12:31 | PM.DS ---
DS: Providers Provider Date of Service: 11/27/24 <Yulissa Bustos MD - Last Filed: 12/07/24 15:04> Date of admission: 11/18/24 23:26 <Yulissa Bustos MD - Last Filed: 12/07/24 15:04> Date of discharge: 11/27/24 <Yulissa Bustos MD - Last Filed: 12/07/24 15:04> Primary care physician: Ebenezer Leslie MD <Yulissa Bustos MD - Last Filed: 12/07/24 15:04> Consults: 11/19/24 17:28 Consult to Neurology Routine Consulting Provider: [facility] Reason for consultation: worsening MS/NMO 11/21/24 19:41 Consult to Wound Care Routine Reason for consultation: stage 2 coccyx 11/22/24 13:42 Consult to General Surgery Routine Consulting Provider: [facility] General Surgeons Reason for consultation: peg placement /dysphagia Has provider been notified: No 11/22/24 14:25 Consult to Infectious Diseases Routine Consulting Provider: [facility] Infectious Disease [facility] Reason for consultation: recurrent uti Has provider been notified: No 11/24/24 13:20 Consult to Pulmonology Routine Consulting Provider: [facility] Pulmonology Services Reason for consultation: difficulty managing secretion ? trach Has provider been notified: No <Yulissa Bustos MD - Last Filed: 12/07/24 15:04> DS: Diagnosis Discharge Diagnosis (1) Dysphagia: Status: Acute <Yulissa Bustos MD - Last Filed: 12/07/24 15:04> (2) Demyelinating disease: Status: Acute <Yulissa Bustos MD - Last Filed: 12/07/24 15:04> (3) Neurogenic urinary bladder disorder: Status: Acute <Yulissa Bustos MD - Last Filed: 12/07/24 15:04> (4) Sepsis: Status: Acute <Yulissa Bustos MD - Last Filed: 12/07/24 15:04> (5) Acute UTI: Status: Acute <Yulissa Bustos MD - Last Filed: 12/07/24 15:04> (6) Aspiration pneumonia: Status: Acute <Yulissa Bustos MD - Last Filed: 12/07/24 15:04> DS: Summary Hospital Course Hospital Course: From the history and physical by the admitting hospitalist, Terell Walker MD, 11/19/24: Patient is a 39 year old male with underlying history of multiple sclerosis, neurogenic bladder (followed by Dr. Cao), recurrent UTI who presents to the ER from home complaining of generalized weakness, poor appetite with decreased oral intake and fevers and is found to have sepsis and UTI. He was seen in the ER 3 days ago after he accidentally pulled out his suprapubic catheter which was replaced and is currently draining well.? He was sleepy when I saw him and did not give much additional information.? Initial blood work done revealed a leukocytosis of 18.7 K with a left shift and a low grade fever of 99.7 F. Urinalysis revealed elevated specific gravity, small leukocyte esterase and >50 WBC/HPF but with no bacteria.? An assessment of sepsis due to UTI was made and he was started on IV Ceftriaxone and admission requested. 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 Hospital course by problem: Sepsis due to complicated UTI likely due to chronic suprapubic catheter + pneumonia. Admitted to medical floor treated with broad-spectrum antibiotics cefepime and vancomycin subsequently antibiotic transitioned to IV linezolid patient finished course of antibiotic on 11/29, BCx negative at 48hr; MRSA swab positive; resp pathogen panel negative; urinary antigens for Legionella and pneumococcus negative lactate normal. PCT jay from 0.08 to 5.97 and back down to 0.12; WBC normalized, currently on scopolamine patch q.72 hours since patient with difficulty clearing secretions urine grew Enterococcus faecalis [id number] and Trichosporon asahii greater than 100,000. consulted pulmonology regarding question of tracheostomy as pt unable to manage secretions, but now pt is refusing. Dysphagia/aspiration/difficulty clearing throat - MBSS with gabby aspiration; not safe for POs, treated with IV PPN, subsequently seen by General Surgery and PEG placed 11/24 started tube feeds , currently tolerating Jevity 85 mL/hours. Acute hypoxic respiratory failure resolved NMO/MS or other demyelinating disease seen by neurologist Dr. Huber; recommended 1g methylprednisolone daily x3 doses 11/21-11/23, now transitioned back to 20 mg/d prednisone home dose,, on 11/23 neuro recommended MRI brain/C-spine and thoracic spine due to atypical presentation with MS being 1 possibility, neuromyelitis optica syndrome was a possibility though patient never had optic neuritis. - MRI brain showed no abnormal postcontrast enhancement; confluent white matter disease involving posterior fossa significantly progresssed since prior - MRI cervical and thoracic spine with a without contrast showed atrophy with mild diffuse central due to signal prolongation - status post LP, done by IR 11/25. CSF shows markedly elevated protein. Oligoclonal bands and autoimmune encephalitis antibodies pending HypoK/hypoPO4 repleted He was discharged home with VNA services. Family was trained to tube feeds. He should follow up with [facility] Neurology [he requested to change from [facility] Neurology] for results of lumbar puncture, and with [facility] Pulmonology for ongoing monitoring of his neuromuscular weakness that might compromise his respiratory status. <Yulissa Bustos MD - Last Filed: 12/07/24 15:04> Time Attestation Discharge Coordination Time (in mins): 40 <Romelia Casas MD - Last Filed: 11/30/24 12:37> Quality: Safe Use of Opioids Does Pt have an Active Cancer Diagnosis on the Problem List?: No <Yulsisa Bustos MD - Last Filed: 12/07/24 15:04> Quality: Stroke Does the patient have a stroke diagnosis?: No <Yulissa Bustos MD - Last Filed: 12/07/24 15:04> Physical Exam Vital Signs: Vital Signs: Last Vital Signs Temp 97.2 F 11/27/24 12:00 Pulse 96 11/27/24 12:00 Resp 16 11/27/24 12:00 BP 105/66 11/27/24 12:00 Pulse Ox 95 11/27/24 12:00 O2 Del Method Room Air 11/27/24 12:00 O2 Flow Rate 2 11/24/24 10:29 BMI result Body Mass Index 27.3 Gen: quadriparesis , no distress HEENT: sclera anicteric, moist mucus membranes Neck: supple Lungs: diminished Heart: regular rate and rhythm, no murmurs Abd: soft, non-tender, non-distended : suprapubic catheter Ext: no edema Skin: warm/well-perfused Neuro: alert and oriented x3, spastic quadraparesis. Psych: appropriate affect <Yulissa Bustos MD - Last Filed: 12/07/24 15:04> DS: Data Data Completed and Pending Completed studies during hospitalization [Text1]: Laboratory Results WBC 10.8 X10*3/uL (4.8-10.8) 11/22/24 06:19 RBC 4.75 X10*6/uL (4.60-5.80) 11/22/24 06:19 Hgb 11.3 g/dl (14.0-18.0) L 11/22/24 06:19 Hct 35.3 % (42.0-52.0) L 11/22/24 06:19 MCV 74.3 fL (80.0-98.0) L 11/22/24 06:19 MCH 23.8 pg (27.0-33.0) L 11/22/24 06:19 MCHC 32.0 g/dl (31.0-36.0) 11/22/24 06:19 RDW 16.1 % (11.0-16.0) H 11/22/24 06:19 Plt Count 304 X10*3/uL (160-400) 11/22/24 06:19 MPV 12.8 fL (9.4-12.4) H 11/22/24 06:19 Immature Gran % (Auto) Cancelled 11/19/24 06:50 Neut % (Auto) Cancelled 11/19/24 06:50 Lymph % (Auto) Cancelled 11/19/24 06:50 Sampson % (Auto) Cancelled 11/19/24 06:50 Eos % (Auto) Cancelled 11/19/24 06:50 Baso % (Auto) Cancelled 11/19/24 06:50 Lymph # (Auto) Cancelled 11/19/24 06:50 Sampson # (Auto) Cancelled 11/19/24 06:50 Eos # (Auto) Cancelled 11/19/24 06:50 Baso # (Auto) Cancelled 11/19/24 06:50 Abs Immat Gran (auto) Cancelled 11/19/24 06:50 Absolute Neuts (auto) Cancelled 11/19/24 06:50 Absolute Nucleated RBC 0.000 X10*3/uL (0.0-0.012) 11/22/24 06:19 Nucleated RBC % (auto) 0.0 /100WBC (0.0-0.2) 11/22/24 06:19 Neutrophils % (Manual) 83 % (45-73) H 11/19/24 06:50 Band Neutrophils % 3 % (3-5) 11/19/24 06:50 Lymphocytes % (Manual) 9 % (20-40) L 11/19/24 06:50 Monocytes % (Manual) 4 % (2-11) 11/19/24 06:50 Metamyelocytes % 1 % 11/19/24 06:50 Abs Neuts (Manual) 16.0 X10*3/uL (2.0-8.3) H 11/19/24 06:50 Lymphocytes # (Manual) 1.7 X10*3/uL (1.2-4.9) 11/19/24 06:50 Monocytes # (Manual) 0.7 X10*3/uL (0.1-1.2) 11/19/24 06:50 Metamyelocytes # 0.2 X10*3/uL 11/19/24 06:50 Platelet Estimate NORMAL (NORMAL) 11/19/24 06:50 Large Platelets PRESENT 11/19/24 06:50 Plt Morphology Comment NOTED 11/19/24 06:50 RBC Morphology NOTED 11/19/24 06:50 Hypochromasia 1+ (5-14) /OIF 11/19/24 06:50 Smear Tech's Comments VERIFIED 11/18/24 19:08 Hold Purple Top SEE NOTE 11/27/24 06:21 PT 11.9 SEC (10.9-12.4) 11/22/24 06:19 INR 1.0 (0.9-1.1) 11/22/24 06:19 D-Dimer High Sensitivty 394 NG/ML 11/20/24 13:06 VBG pH 7.49 (7.32-7.43) H 11/25/24 10:49 VBG pCO2 40 mmHg 11/25/24 10:49 VBG pO2 71 mmHg 11/25/24 10:49 VBG HCO3 31 mmol/L (22-26) H 11/25/24 10:49 VBG O2 Saturation 95.0 % 11/25/24 10:49 VBG Base Excess 7.7 mmol/L 11/25/24 10:49 Sodium 140 mmol/L (135-145) 11/27/24 06:21 Potassium 3.5 mmol/L (3.3-5.1) 11/27/24 06:21 Chloride 104 mmol/L (96-108) 11/27/24 06:21 Carbon Dioxide 27 mmol/L (22-29) 11/27/24 06:21 Anion Gap 13 (12-20) 11/27/24 06:21 BUN 12 mg/dL (9-16) 11/27/24 06:21 Creatinine 0.52 mg/dL (0.5-1.4) 11/27/24 06:21 Estim Creat Clear Calc 188.8 11/27/24 06:21 Estimated GFR > 60 11/27/24 06:21 POC Glucose 114 mg/dL (60-115) 11/19/24 17:31 Random Glucose 96 mg/dL (60-115) 11/27/24 06:21 Lactic Acid 0.9 mmol/L (0.5-2.0) 11/19/24 15:04 Calcium 8.6 mg/dL (8.4-10.2) 11/27/24 06:21 Phosphorus 4.1 mg/dL (2.7-4.5) 11/27/24 06:21 Magnesium 2.2 mg/dL (1.6-2.6) 11/27/24 06:21 Total Bilirubin 0.4 mg/dL (0.0-1.0) 11/18/24 19:08 AST 19 U/L (5-37) 11/18/24 19:08 ALT 9 U/L (0-40) 11/18/24 19:08 Alkaline Phosphatase 72 U/L (39-117) 11/18/24 19:08 Troponin I High Sens 3.6 ng/L (<3.5-35.0) 11/18/24 19:08 C-Reactive Protein 2.97 mg/dL (< or = 0.50) H 11/25/24 06:55 Total Protein 8.1 g/dL (6.5-8.0) H 11/18/24 19:08 Albumin 3.3 g/dL (3.5-5.0) L 11/26/24 06:26 Triglycerides 54 mg/dL (<150) 11/20/24 08:26 Procalcitonin 0.12 ng/mL 11/25/24 06:55 Urine Color Yellow 11/18/24 20:00 Urine Appearance Cloudy 11/18/24 20:00 Urine pH 6.5 (5.0-9.0) 11/18/24 20:00 Ur Specific [place] >= 1.030 (1.005-1.025) H 11/18/24 20:00 Urine Protein 300 (3+) mg/dL (Neg-Trace) H 11/18/24 20:00 Urine Glucose (UA) Negative mg/dL (Negative) 11/18/24 20:00 Urine Ketones >=80 mg/dL (Negative) 11/18/24 20:00 Urine Blood Large (3+) (Negative) H 11/18/24 20:00 Urine Nitrite Negative (Negative) 11/18/24 20:00 Ur Leukocyte Esterase Small (1+) (Negative) H 11/18/24 20:00 Urine RBC 11-20 /HPF (0-2) H 11/18/24 20:00 Urine WBC >50 /HPF (0-5) 11/18/24 20:00 Urine WBC Clumps Present 11/18/24 20:00 Ur Squamous Epith Cells 0-2 /HPF (0-2) 11/18/24 20:00 Urine Bacteria None Seen (None Seen) 11/18/24 20:00 Hyaline Casts 3-5 /LPF (0-2) 11/18/24 20:00 WBC Casts Present 11/18/24 20:00 Urine Yeast Present 11/18/24 20:00 CSF Tube Number 1 11/25/24 14:20 CSF Tube Number 1 11/25/24 14:20 CSF Tube Number Cancelled 11/25/24 14:20 CSF Volume 4.0 ML 11/25/24 14:20 CSF Volume Cancelled 11/25/24 14:20 CSF Appearance CLEAR 11/25/24 14:20 CSF Appearance Cancelled 11/25/24 14:20 CSF Color COLORLESS 11/25/24 14:20 CSF Color Cancelled 11/25/24 14:20 CSF WBC 2 MM*3 11/25/24 14:20 CSF WBC Cancelled 11/25/24 14:20 CSF RBC 67 MM*3 11/25/24 14:20 CSF RBC Cancelled 11/25/24 14:20 CSF Neutrophils 4 % 11/25/24 14:20 CSF Neutrophils Cancelled 11/25/24 14:20 CSF Lymphocytes 50 % 11/25/24 14:20 CSF Lymphocytes Cancelled 11/25/24 14:20 CSF Monocytes % 46 % 11/25/24 14:20 CSF Monocytes % Cancelled 11/25/24 14:20 CSF Other Cells % Cancelled 11/25/24 14:20 CSF Appearance (b) Clear, Colorless 11/25/24 14:20 CSF Glucose 58 mg/dL 11/25/24 14:20 CSF Total Protein 111.6 mg/dL (15-45) H 11/25/24 14:20 CSF C.neoform/gat PCR Not Detected (Not Detect.) 11/25/24 14:20 CSF CMV DNA (PCR) Not Detected (Not Detect.) 11/25/24 14:20 CSF Enterovirus (PCR) Not Detected (Not Detect.) 11/25/24 14:20 CSF E. coli K1 (PCR) Not Detected (Not Detect.) 11/25/24 14:20 CSF H. influenzae (PCR) Not Detected (Not Detect.) 11/25/24 14:20 CSF HSV I (PCR) Not Detected (Not Detect.) 11/25/24 14:20 CSF HSV II (PCR) Not Detected (Not Detect.) 11/25/24 14:20 CSF HHV 6 (PCR) Not Detected (Not Detect.) 11/25/24 14:20 CSF L.monocytogenes PCR Not Detected (Not Detect.) 11/25/24 14:20 CSF N. meningitidis PCR Not Detected (Not Detect.) 11/25/24 14:20 CSF Parechovirus (PCR) Not Detected (Not Detect.) 11/25/24 14:20 CSF S. agalactiae (PCR) Not Detected (Not Detect.) 11/25/24 14:20 CSF S. pneumoniae (PCR) Not Detected (Not Detect.) 11/25/24 14:20 CSF VZV (PCR) Not Detected (Not Detect.) 11/25/24 14:20 Nasal Screen MRSA (PCR) POSITIVE (Negative) A 11/19/24 14:57 Nasal S. aureus Screen POSITIVE (Negative) A 11/19/24 14:57 Nasal MRSA/S.aureus Interp SEE NOTE 11/19/24 14:57 Random Vancomycin 12.8 mcg/mL (15-20) L 11/22/24 15:36 Respiratory Panel Caceres See Note 11/19/24 14:57 Adenovirus (Rapid PCR) Not Detected (Not Detect.) 11/19/24 14:57 B.pert (TEM-PCR) Not Detected (Not Detect.) 11/19/24 14:57 B.parapertussis DNA PCR Not Detected (Not Detect.) 11/19/24 14:57 C. pneumoniae DNA (PCR) Not Detected (Not Detect.) 11/19/24 14:57 Coronavirus OC43 (PCR) Not Detected (Not Detect.) 11/19/24 14:57 Coronavirus HKU1 (PCR) Not Detected (Not Detect.) 11/19/24 14:57 Coronavirus 229E (PCR) Not Detected (Not Detect.) 11/19/24 14:57 Coronavirus NL63 (PCR) Not Detected (Not Detect.) 11/19/24 14:57 Human Metapneumovir PCR Not Detected (Not Detect.) 11/19/24 14:57 Influenza A (RT-PCR) Not Detected (Not Detect.) 11/19/24 14:57 Influenza Type A (PCR) NEGATIVE (Negative) 11/18/24 19:05 Influenza B (RT-PCR) Not Detected (Not Detect.) 11/19/24 14:57 Influenza Type B (PCR) NEGATIVE (Negative) 11/18/24 19:05 Ur L.pneumophila Ag Not Detected (Not Detected) 11/19/24 16:37 M. pneumoniae (PCR) Not Detected (Not Detect.) 11/19/24 14:57 Parainfluenza 1 (PCR) Not Detected (Not Detect.) 11/19/24 14:57 Parainfluenza 2 (PCR) Not Detected (Not Detect.) 11/19/24 14:57 Parainfluenza 3 (PCR) Not Detected (Not Detect.) 11/19/24 14:57 Parainfluenza 4 (PCR) Not Detected (Not Detect.) 11/19/24 14:57 RSV (PCR) Not Detected (Not Detect.) 11/19/24 14:57 RSV RNA Qual (PCR) NEGATIVE (Negative) 11/18/24 19:05 Entero/Rhino (PCR) Not Detected (Not Detect.) 11/19/24 14:57 SARS-CoV-2 RNA (RT-PCR) Not Detected (Not Detect.) 11/19/24 14:57 Ur Strep pneumoniae Ag Not Detected (Not Detected) 11/19/24 16:37 Impressions Modified Barium Swallow 11/19/24 13:00 IMPRESSION: 1. Aspiration with multiple consistencies of liquid barium. Refer to the speech therapy report for further clarification This procedure was performed by Hong Fernandes PA-C, and supervised by Dr. Mcgrath Electronically signed by: Dusty Mcgrath MD 11/22/2024 03:54 PM EST RP Lumbar Puncture Fluoroscopy 11/25/24 13:00 IMPRESSION: 1. Uneventful fluoroscopic guided L4-5 lumbar puncture. 6 mL of clear CSF obtained and sent for laboratory analysis. Electronically signed by: Dusty Mcgrath MD 11/25/2024 03:46 PM EST RP <Yulissa Bustos MD - Last Filed: 12/07/24 15:04> Discharge Plan Discharge Anticipated Discharge Date/Time: 11/30/24 11:27 <Yulissa Bustos MD - Last Filed: 12/07/24 15:04> Patient Disposition: Home Health Service <Yulissa Bustos MD - Last Filed: 12/07/24 15:04> Discharge Diagnosis: Sepsis due to UTI Dysphagia Acute hypoxic respiratory failure Demyelinating disease <Yulissa Bustos MD - Last Filed: 12/07/24 15:04> Sepsis due to UTI Dysphagia Acute hypoxic respiratory failure Demyelinating disease <Romelia Casas MD - Last Filed: 11/30/24 12:37> [facility]errals: [facility] [Other] - 1 Week [place] [facility] [Outside] - 1 Week Ebenezer Leslie MD [Primary Care Provider] - 1 Week <Yulissa Bustos MD - Last Filed: 12/07/24 15:04> Discharge Medications: New scopolamine base [Transderm-Scop] 1 mg over 3 days Patch 3 Day 1.5 mg EAR-BEHIND Q72H Qty: 10 0RF sennosides [Senna Lax] 8.6 mg Tablet 17.2 mg G-tube BEDTIME Qty: 30 0RF Continued (DME) syringe disposable, irrigation 60 mL syringe See Rx Instructions .Route Qty: 2 5RF Rx Instructions: As directed 2 per month (DME) Villatoro Catheter Tray Tray See Rx Instructions .Route Qty: 2 5RF Rx Instructions: As directed 2 per month (DME) Bardia Urinary Drainage Bag Misc See Rx Instructions .Route Qty: 2 5RF Rx Instructions: As directed, 2 per month (DME) Urinary Leg Bag Misc See Rx Instructions .Route Qty: 4 5RF Rx Instructions: As directed, 4 per month. (DME) Villatoro Catheter 20 Fr misc See Rx Instructions .Route Qty: 2 5RF Rx Instructions: As directed, 2 per month. clindamycin phosphate 1 % lotion 1 appl topical BID clotrimazole-betamethasone 1-0.05 % cream 1 appl topical BID prednisone 20 mg tablet 20 mg PO DAILY Changed cyclobenzaprine 10 mg tablet 10 mg feeding tube TID Qty: 90 0RF acetaminophen 500 mg tablet 500 mg feeding tube Q6H PRN (Reason: mild pain) Qty: 90 0RF ascorbic acid (vitamin C) [Vitamin C] 500 mg tablet 500 mg feeding tube BID 90 Days Qty: 180 1RF sertraline 50 mg tablet 50 mg feeding tube DAILY Qty: 90 0RF cholecalciferol (vitamin D3) [Vitamin D3] 50 mcg (2,000 unit) capsule 50 mcg feeding tube DAILY Qty: 90 0RF <Yulissa Bustos MD - Last Filed: 12/07/24 15:04> Discharge Orders: Discharge Order (Routine); Ordered 11/30/24 Ordered By: Romelia Casas <Yulissa Bustos MD - Last Filed: 12/07/24 15:04> Diet: Feeding through G-tube <Yulissa Bustos MD - Last Filed: 12/07/24 15:04> Feeding through G-tube <Romelia Casas MD - Last Filed: 11/30/24 12:37> Activity on Discharge: As tolerated <Yulissa Bustos MD - Last Filed: 12/07/24 15:04> As tolerated <Romelia Casas MD - Last Filed: 11/30/24 12:37> Stand Alone Forms: Patient Portal Discharge page <Yulissa Bustos MD - Last Filed: 12/07/24 15:04> Print Language: [place]uran <Yulissa Bustos MD - Last Filed: 12/07/24 15:04> Care Plan Goals: Continue Jevity 85 mL/hours and water bolus 240 mL every 8 hours Scopolamine patch q.72 hours to manage secretions Discharged home with VNA services and speech therapy for dysphagia treatment <Yulissa Bustos MD - Last Filed: 12/07/24 15:04> Health Concerns: All medications through G-tube <Yulissa Bustos MD - Last Filed: 12/07/24 15:04> Plan of Treatment: Outpatient follow-up with neurologist Dr. Huber and primary care physician Outpatient follow-up with escalator mechanic Dr. Ardon for consideration of trach due to difficulty clearing secretions <Yulissa Bustos MD - Last Filed: 12/07/24 15:04> Assessment: As above <Yulissa Bustos MD - Last Filed: 12/07/24 15:04> Discharge Date/Time: 11/30/24 19:04 <Yulissa Bustos MD - Last Filed: 12/07/24 15:04>
[2024-11-27] MEDS: Morphine Sulfate 2 MG/ML CARTRIDGE IVPUSH ×2 (14:57→21:27)
[2024-11-27] MEDS: Scopolamine 1.5 MG PATCH.TD.3 EAR-BEHIND (15:04)
[2024-11-27] MEDS: Sennosides 8.6 MG TABLET 17.2 MG G-TUBE (21:27)
[2024-11-28] VITALS (8 sets, daily range): BP systolic 115–129; BP diastolic 71–81; PULSE 90–100; RESP 14–20; TEMP 35.9–36.4; O2SAT 94–98
[2024-11-28] MEDS: Linezolid 600 MG TABLET G-TUBE ×2 (04:11→17:58)
[2024-11-28] MEDS: Morphine Sulfate 2 MG/ML CARTRIDGE IVPUSH (06:06)
[2024-11-28 06:44] LABS: Anion Gap 13 (12-20); Blood Urea Nitrogen 13 mg/dL (9-16); Calcium 8.7 mg/dL (8.4-10.2); Carbon Dioxide 27 mmol/L (22-29); Chloride 104 mmol/L (96-108); Creatinine Clr Calc Pharmacy 185.2; Estimated Glomerular Filt Rate > 60; Glucose Random 110 mg/dL (60-115); Magnesium 2.1 mg/dL (1.6-2.6); Phosphorus 4.2 mg/dL (2.7-4.5); Potassium 3.3 mmol/L (3.3-5.1); Sodium 141 mmol/L (135-145)
[2024-11-28] MEDS: Sertraline HCL 50 MG TABLET G-TUBE (08:50)
[2024-11-28] MEDS: Cholecalciferol (Vitamin D3) 25 MCG TABLET 50 MCG G-TUBE (08:51)
[2024-11-28] MEDS: methylPREDNISolone Sod Succ 40 MG/ML VIAL 20 MG IVPUSH (08:51)
[2024-11-28] MEDS: Enoxaparin Sodium 40 MG/0.4 ML SYRINGE SUBCUT (08:52)
[2024-11-28] MEDS: Cyclobenzaprine HCl 10 MG TABLET G-TUBE ×3 (08:53→21:14)
[2024-11-28] MEDS: 0.9 % Sodium Chloride Flush 3 ML SYRINGE IVFLUSH ×3 (09:04→21:14)
[2024-11-28] MEDS: Ascorbic Acid 500 MG TABLET G-TUBE ×2 (09:04→21:14)
--- NOTE | 2024-11-28 14:58 | P.PNIM_ITS ---
Subjective Subjective Date of Service: 11/29/24 Interval History: Noted to be sedated after iv morphine, has generalized pain. Tolerating G-tube feedings No acute events overnight. Review of Systems All other system reviewed and negative Physical Exam 2 Vital Signs: Vital Signs: Last Vital Signs Temp 97.3 F 11/28/24 11:52 Pulse 95 11/28/24 14:30 Resp 20 11/28/24 14:30 BP 116/75 11/28/24 11:52 Pulse Ox 94 11/28/24 14:30 O2 Del Method Room Air 11/28/24 11:52 O2 Flow Rate 2 11/24/24 10:29 BMI result Body Mass Index 27.3 Const: Other: Gen: quadriparesis , no distress HEENT: sclera anicteric, moist mucus membranes Neck: supple Lungs: diminished Heart: regular rate and rhythm, no murmurs Abd: soft, non-tender, non-distended, peg in place : suprapubic catheter Ext: no edema Skin: warm/well-perfused Neuro: alert and oriented x3, spastic quadraparesis. Psych: appropriate affect Objective Data Active Medications Ascorbic Acid (Ascorbic Acid 500 Mg Tablet) 500 mg G-TUBE BID [facility] Last Admin: 11/28/24 09:04 Dose: 500 mg Documented By: ANAM Cyclobenzaprine HCl (Cyclobenzaprine Hcl 10 Mg Tablet) 10 mg G-TUBE TID [facility] Last Admin: 11/28/24 08:53 Dose: 10 mg Documented By: ANAM Enoxaparin Sodium (Enoxaparin Sodium 40 Mg/0.4 Ml Syringe) 40 mg SUBCUT Q24H [facility] Last Admin: 11/28/24 08:52 Dose: 40 mg Documented By: ANAM Glycopyrrolate (Glycopyrrolate 0.2 Mg/Ml Vial) 0.1 mg IVPUSH Q4H PRN PRN Reason: secretions Last Admin: 11/27/24 02:24 Dose: 0.1 mg Documented By: ALONDRA Acetaminophen (Ofirmev) 1,000 mg in 100 mls @ 400 mls/hr IV Q6H [facility] Linezolid (Linezolid 600 Mg Tablet) 600 mg G-TUBE Q12H [facility] Last Admin: 11/28/24 04:11 Dose: 600 mg Documented By: ALONDRA Lorazepam (Lorazepam 2 Mg/Ml Vial) 0.5 mg IVPUSH Q6H PRN PRN Reason: anxiety/restlessness Last Admin: 11/24/24 13:35 Dose: 0.5 mg Documented By: WALKER Methylprednisolone Sodium Succinate (Methylprednisolone Sod Succ 40 Mg/Ml Vial) 20 mg IVPUSH Q24H [facility] Last Admin: 11/28/24 08:51 Dose: 20 mg Documented By: ANAM Morphine Sulfate (Morphine Sulfate 2 Mg/Ml Cartridge) 2 mg IVPUSH Q3H PRN; Protocol PRN Reason: Pain, Severe (Pain Scale 7-10) Last Admin: 11/28/24 06:06 Dose: 2 mg Documented By: ALONDRA Naloxone HCl (Naloxone Hcl 0.4 Mg/Ml Vial) 0.04 mg IVPUSH Q5M PRN PRN Reason: Excessive sedation or RR < 8 Ondansetron HCl (Ondansetron Hcl 4 Mg/2 Ml Vial) 4 mg IVPUSH Q8H PRN PRN Reason: Nausea and Vomiting Oxycodone HCl (Oxycodone Hcl Immed Release 5 Mg Tablet) 5 mg G-TUBE Q6H PRN PRN Reason: Pain, Severe (Pain Scale 7-10) Last Admin: 11/27/24 11:51 Dose: 5 mg Documented By: ANAM Scopolamine (Scopolamine 1.5 Mg Patch.Td.3) 1.5 mg EAR-BEHIND Q72H [facility] Last Admin: 11/27/24 15:04 Dose: 1.5 mg Documented By: ANAM Senna (Sennosides 8.6 Mg Tablet) 17.2 mg G-TUBE BEDTIME [facility] Last Admin: 11/27/24 21:27 Dose: 17.2 mg Documented By: ALONDRA Comments: barcode wont scan Sertraline HCl (Sertraline Hcl 50 Mg Tablet) 50 mg G-TUBE DAILY [facility] Last Admin: 11/28/24 08:50 Dose: 50 mg Documented By: ANAM Sodium Chloride (0.9 % Sodium Chloride Flush 3 Ml Syringe) 3 ml IVFLUSH QSHIFT [facility] Last Admin: 11/28/24 09:04 Dose: 3 ml Documented By: ANAM Vitamin D (Cholecalciferol (Vitamin D3) 25 Mcg Tablet) 50 mcg G-TUBE DAILY [facility] Last Admin: 11/28/24 08:51 Dose: 50 mcg Documented By: ANAM Labs 11/22/24 06:19 11/29/24 06:50 Labs: Laboratory Results - last 24 hr 11/28/24 06:05 Hold Purple Top SEE NOTE Anion Gap 13 Estim Creat Clear Calc 185.2 Estimated GFR > 60 Random Glucose 110 Calcium 8.7 Phosphorus 4.2 Magnesium 2.1 Microbiology Microbiology Results: Microbiology 11/25/24 14:20 Gram Stain - Final Cerebrospinal Fluid CSF Examination - Final Fluid Description - Final CSF Culture - Final No growth after 3 days. 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, paraplegia, neurogenic bladder with suprapubic catheter, frequent UTIs presenting with weakness, fever, and anorexia; found to have sepsis suspected due to UTI after suprapubic catheter replacement 3d prior to admission; also found to have pneumonia likely due to aspiration sepsis due to complicated UTI likely due to chronic suprapubic catheter + pneumonia - sepsis resolved, s/p IV cefepime and IV vancomycin 11/19-11/22, now on IV linezolid started 11/22, plan end date 11/29 for total 10 days of therapy - BCx negative at 48hr; MRSA swab positive; resp pathogen panel negative; urinary antigens for Legionella and pneumococcus negative - lactate normal. PCT jay from 0.08 to 5.97 and back down to 0.12; WBC normalized - chest percussive therapy for secretions/suctioning as needed - scopolamine patch q72h - glycopyrrolate q4h prn - urine growing Enterococcus faecalis [id number] and Trichosporon asahii greater than 100,000; colonization? Recent urine culture October 21 grew E coli and Trichosporon asahii; seen by ID and recommended linezolid, will continue until 11/29 - consulted pulmonology regarding question of tracheostomy as pt. unable to manage secretions, but pt refuses; recommend outpt Pulm follow-up dysphagia/aspiration/difficulty clearing throat - MBSS with gabby aspiration; not safe for POs - seen by General Surgery and PEG placed 11/24; d/c'ed IV PPN; started tube feeds and advance as tolerated to 85 mL/hr acute hypoxic respiratory failure - resolved NMO/MS or other demyelinating disease -seen by neurologist Dr. Huber; recommended 1g methylprednisolone daily x3 doses 11/21-11/23; continue IV Solu Medrol 20 mg daily, was on 20 mg/d prednisone at home - on 11/23 neuro recommended MRI brain/C-spine and thoracic spine due to atypical presentation with MS being 1 possibility, neuromyelitis optica syndrome was a possibility though patient never had optic neuritis. 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 Huber recommend LP to obtain CSF for glucose, protein, cell, oligoclonal bands and autoimmune encephalitis panel; done by IR 11/25. CSF shows markedly elevated protein. Oligoclonal bands and autoimmune encephalitis antibodies pending. hypoK/hypoPO4 - repleted VTE ppx - enoxaparin dispo - family wishes to take him back and be trained in tube feeds; [facility] to meet with them 11/29; consider transition to bolus feeds in consultation with Nutrition In my clinical judgment, the patient requires continued inpatient hospitalization for the following reasons: IV ABX, tube feeds Quality Stroke Does the patient have a stroke diagnosis?: No VTE Prior VTE?: No VTE Risk Level:: Medical - moderate - high VTE Device Contraindication: Treatment Not Indicated VTE Drug Contraindication: N/A - Med Ordered
[2024-11-28] MEDS: Acetaminophen 1,000 MG/100 ML PIGGYBACK 400 MG IV ×2 (15:23→21:13)
[2024-11-28] MEDS: Glycopyrrolate 0.2 MG/ML VIAL 0.1 MG IVPUSH (15:24)
[2024-11-28] MEDS: Sennosides 8.6 MG TABLET 17.2 MG G-TUBE (21:14)
[2024-11-29] VITALS (9 sets, daily range): BP systolic 123–136; BP diastolic 66–85; PULSE 95–104; RESP 16–20; TEMP 36.1–36.8; O2SAT 92–96
[2024-11-29] MEDS: Acetaminophen 1,000 MG/100 ML PIGGYBACK 400 MG IV ×3 (02:22→20:51)
[2024-11-29] MEDS: LORazepam 2 MG/ML VIAL 0.5 MG IVPUSH (02:22)
[2024-11-29] MEDS: Linezolid 600 MG TABLET G-TUBE ×2 (04:00→18:09)
[2024-11-29 07:56] LABS: Anion Gap 13 (12-20); Blood Urea Nitrogen 10 mg/dL (9-16); Calcium 8.9 mg/dL (8.4-10.2); Carbon Dioxide 28 mmol/L (22-29); Chloride 103 mmol/L (96-108); Creatinine Clr Calc Pharmacy 192.5; Estimated Glomerular Filt Rate > 60; Glucose Random 90 mg/dL (60-115); Magnesium 2.1 mg/dL (1.6-2.6); Phosphorus 3.1 mg/dL (2.7-4.5); Potassium 3.2 mmol/L (3.3-5.1); Sodium 141 mmol/L (135-145)
[2024-11-29] MEDS: methylPREDNISolone Sod Succ 40 MG/ML VIAL 20 MG IVPUSH (10:03)
[2024-11-29] MEDS: Cholecalciferol (Vitamin D3) 25 MCG TABLET 50 MCG G-TUBE (10:04)
[2024-11-29] MEDS: Sertraline HCL 50 MG TABLET G-TUBE (10:04)
[2024-11-29] MEDS: Ascorbic Acid 500 MG TABLET G-TUBE ×2 (10:04→20:57)
[2024-11-29] MEDS: Enoxaparin Sodium 40 MG/0.4 ML SYRINGE SUBCUT (10:04)
[2024-11-29] MEDS: Cyclobenzaprine HCl 10 MG TABLET G-TUBE ×3 (10:05→20:56)
--- NOTE | 2024-11-29 11:36 | MHC.CLN ---
F/U PEG TUBE PLACED 11/24 AND TUBE FEED STARTED 11/26. TOLERATING TUBE FEEDING AT MAX GOAL RATE: JEVITY 1.0 AT MAX GOAL RATE 85ML/HR WITH 240ML FREE WATER FLUSHES Q 8 HRS TO PROVIDE 2162KCALS (26KCALS/KG), 90G PROTEIN (1.07G/KG), 2423ML TOTAL WATER FROM FORMULA AND FLUSHES (29ML/KG). RECOMMEND CONTINUOUS FEEDING AT THIS TIME DUE TO HX ASPIRATION PNEUMONIA AND TODAY IS DAY 4 OF TUBE FEEDING. MONITOR FOR TUBE FEED TOLERANCE AND PLAN OF CARE.
--- NOTE | 2024-11-29 12:36 | MHC.CM.PN ---
[facility] RN to bedside for teach w/ patient and Angelique, who is patient's niece/[employer]PER[employer]. Tube feed orders obtained. Niece will be in [place] overnight and anticipates being home tomorrow after 3pm. Plan to dc at that time. CM will continue to follow. Angelique [phone]
--- NOTE | 2024-11-29 15:22 | HO.PM.IMPN ---
Subjective Subjective Date of Service: 11/29/24 Interval History: Offers no acute complaints Family at bedside receiving teachings for G-tube feeds No overnight acute events, tolerating G-tube feeds. History obtained via sales development specialist Review of Systems All other system reviewed and are negative. Physical Exam Vital Signs: Vital Signs: Last Vital Signs Temp 98.0 F 11/29/24 15:06 Pulse 104 H 11/29/24 15:06 Resp 20 11/29/24 15:06 BP 131/76 11/29/24 15:06 Pulse Ox 92 11/29/24 15:06 O2 Del Method Room Air 11/29/24 15:06 O2 Flow Rate 2 11/24/24 10:29 BMI result Body Mass Index 27.3 Const: Other: Gen: quadriparesis , no distress HEENT: sclera anicteric, moist mucus membranes Neck: supple Lungs: diminished Heart: regular rate and rhythm, no murmurs Abd: soft, non-tender, non-distended, peg in place, no surrounding erythema : suprapubic catheter Ext: no edema Skin: warm/well-perfused Neuro: alert and oriented x3, spastic quadraparesis. Psych: appropriate affect Objective Data Active Medications Ascorbic Acid (Ascorbic Acid 500 Mg Tablet) 500 mg G-TUBE BID [facility] Last Admin: 11/29/24 10:04 Dose: 500 mg Documented By: ZULEMA Cyclobenzaprine HCl (Cyclobenzaprine Hcl 10 Mg Tablet) 10 mg G-TUBE TID [facility] Last Admin: 11/29/24 10:05 Dose: 10 mg Documented By: ZULEMA Enoxaparin Sodium (Enoxaparin Sodium 40 Mg/0.4 Ml Syringe) 40 mg SUBCUT Q24H [facility] Last Admin: 11/29/24 10:04 Dose: 40 mg Documented By: ZULEMA Glycopyrrolate (Glycopyrrolate 0.2 Mg/Ml Vial) 0.1 mg IVPUSH Q4H PRN PRN Reason: secretions Last Admin: 11/28/24 15:24 Dose: 0.1 mg Documented By: ANAM Acetaminophen (Ofirmev) 1,000 mg in 100 mls @ 400 mls/hr IV Q6H [facility] Last Admin: 11/29/24 10:18 Dose: Not Given Documented By: ZULEMA Non-Admin Reason: Physician Held Med Linezolid (Linezolid 600 Mg Tablet) 600 mg G-TUBE Q12H [facility] Last Admin: 11/29/24 04:00 Dose: 600 mg Documented By: JEANNETTE Lorazepam (Lorazepam 2 Mg/Ml Vial) 0.5 mg IVPUSH Q6H PRN PRN Reason: anxiety/restlessness Last Admin: 11/29/24 02:22 Dose: 0.5 mg Documented By: JEANNETTE Methylprednisolone Sodium Succinate (Methylprednisolone Sod Succ 40 Mg/Ml Vial) 20 mg IVPUSH Q24H [facility] Last Admin: 11/29/24 10:03 Dose: 20 mg Documented By: ZULEMA Naloxone HCl (Naloxone Hcl 0.4 Mg/Ml Vial) 0.04 mg IVPUSH Q5M PRN PRN Reason: Excessive sedation or RR < 8 Ondansetron HCl (Ondansetron Hcl 4 Mg/2 Ml Vial) 4 mg IVPUSH Q8H PRN PRN Reason: Nausea and Vomiting Oxycodone HCl (Oxycodone Hcl Immed Release 5 Mg Tablet) 5 mg G-TUBE Q6H PRN PRN Reason: Pain, Severe (Pain Scale 7-10) Last Admin: 11/27/24 11:51 Dose: 5 mg Documented By: ANAM Scopolamine (Scopolamine 1.5 Mg Patch.Td.3) 1.5 mg EAR-BEHIND Q72H COUNT [facility] Last Admin: 11/27/24 15:04 Dose: 1.5 mg Documented By: ANAM Senna (Sennosides 8.6 Mg Tablet) 17.2 mg G-TUBE BEDTIME [facility] Last Admin: 11/28/24 21:14 Dose: 17.2 mg Documented By: JEANNETTE Sertraline HCl (Sertraline Hcl 50 Mg Tablet) 50 mg G-TUBE DAILY [facility] Last Admin: 11/29/24 10:04 Dose: 50 mg Documented By: ZULEMA Sodium Chloride (0.9 % Sodium Chloride Flush 3 Ml Syringe) 3 ml IVFLUSH QSHIFT [facility] Last Admin: 11/29/24 10:39 Dose: Not Given Documented By: ZULEMA Non-Admin Reason: Unable to Scan Barcode Vitamin D (Cholecalciferol (Vitamin D3) 25 Mcg Tablet) 50 mcg G-TUBE DAILY [facility] Last Admin: 11/29/24 10:04 Dose: 50 mcg Documented By: ZULEMA Labs 11/22/24 06:19 11/29/24 06:50 Labs: Laboratory Results - last 24 hr 11/29/24 06:50 Hold Purple Top SEE NOTE Anion Gap 13 Estim Creat Clear Calc 192.5 Estimated GFR > 60 Random Glucose 90 Calcium 8.9 Phosphorus 3.1 Magnesium 2.1 Assessment and Plan (1) Pneumonia: Status: Acute (2) Aspiration pneumonia: Status: Acute (3) Dysphagia: Status: Acute Plan 39 yo M with 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, paraplegia, neurogenic bladder with suprapubic catheter, frequent UTIs presenting with weakness, fever, and anorexia; found to have sepsis suspected due to UTI after suprapubic catheter replacement 3d prior to admission; also found to have pneumonia likely due to aspiration sepsis due to complicated UTI likely due to chronic suprapubic catheter + pneumonia - sepsis resolved, s/p IV cefepime and IV vancomycin 11/19-11/22, now on IV linezolid started 11/22, plan end date today after total 10 days of therapy - BCx negative at 48hr; MRSA swab positive; resp pathogen panel negative; urinary antigens for Legionella and pneumococcus negative - lactate normal. PCT jay from 0.08 to 5.97 and back down to 0.12; WBC normalized - chest percussive therapy for secretions/suctioning as needed - scopolamine patch q72h - glycopyrrolate q4h prn - urine growing Enterococcus faecalis [id number] and Trichosporon asahii greater than 100,000; colonization? Recent urine culture October 21 grew E coli and Trichosporon asahii; seen by ID and recommended linezolid, DC today as above - consulted pulmonology regarding question of tracheostomy as pt. unable to manage secretions, but pt refused; recommend outpt Pulm follow-up dysphagia/aspiration/difficulty clearing throat - MBSS with gabby aspiration; not safe for POs - seen by General Surgery and PEG placed 11/24, currently tolerating Jevity 85 mL/hr acute hypoxic respiratory failure - resolved NMO/MS or other demyelinating disease -seen by neurologist Dr. Huber; recommended 1g methylprednisolone daily x3 doses 11/21-11/23; continue IV Solu Medrol 20 mg daily, was on 20 mg/d prednisone at home - on 11/23 neuro recommended MRI brain/C-spine and thoracic spine due to atypical presentation with MS being 1 possibility, neuromyelitis optica syndrome was a possibility though patient never had optic neuritis. 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 Huber recommend LP to obtain CSF for glucose, protein, cell, oligoclonal bands and autoimmune encephalitis panel; done by IR 11/25. CSF shows markedly elevated protein. Oligoclonal bands and autoimmune encephalitis antibodies pending. hypoK/hypoPO4 - repleted VTE ppx - enoxaparin dispo - family wishes to take him back home family receive teachings for tube feeds will likely will be discharged home tomorrow with home infusion, spoke with chief solution architect she currently recommend to continue continuous feed and will Later check with home infusion for bolus feeds. In my clinical judgment, the patient requires continued inpatient hospitalization for the following reasons: IV ABX, tube feeds Quality Stroke Does the patient have a stroke diagnosis?: No VTE Prior VTE?: No VTE Risk Level:: Medical - moderate - high VTE Device Contraindication: Treatment Not Indicated VTE Drug Contraindication: N/A - Med Ordered
[2024-11-29] MEDS: Glycopyrrolate 0.2 MG/ML VIAL 0.1 MG IVPUSH (20:56)
[2024-11-29] MEDS: Sennosides 8.6 MG TABLET 17.2 MG G-TUBE (20:57)
[2024-11-29] MEDS: 0.9 % Sodium Chloride Flush 3 ML SYRINGE IVFLUSH (20:58)
[2024-11-30] VITALS (7 sets, daily range): BP systolic 111–144; BP diastolic 59–88; PULSE 79–105; RESP 16–20; TEMP 36.6–37; O2SAT 93–97
[2024-11-30] MEDS: Acetaminophen 1,000 MG/100 ML PIGGYBACK 400 MG IV ×3 (02:54→16:26)
[2024-11-30] MEDS: Linezolid 600 MG TABLET G-TUBE (06:37)
[2024-11-30 08:12] LABS: Anion Gap 16 (12-20); Blood Urea Nitrogen 9 mg/dL (9-16); Calcium 8.9 mg/dL (8.4-10.2); Carbon Dioxide 24 mmol/L (22-29); Chloride 104 mmol/L (96-108); Creatinine Clr Calc Pharmacy 188.8; Estimated Glomerular Filt Rate > 60; Glucose Random 97 mg/dL (60-115); Magnesium 2.1 mg/dL (1.6-2.6); Phosphorus 3.7 mg/dL (2.7-4.5); Potassium 3.1 mmol/L (3.3-5.1); Sodium 141 mmol/L (135-145)
[2024-11-30] MEDS: LORazepam 2 MG/ML VIAL 0.5 MG IVPUSH (09:33)
[2024-11-30] MEDS: 0.9 % Sodium Chloride Flush 3 ML SYRINGE IVFLUSH (09:34)
[2024-11-30] MEDS: methylPREDNISolone Sod Succ 40 MG/ML VIAL 20 MG IVPUSH (09:35)
[2024-11-30] MEDS: Enoxaparin Sodium 40 MG/0.4 ML SYRINGE SUBCUT (09:36)
[2024-11-30] MEDS: Cholecalciferol (Vitamin D3) 25 MCG TABLET 50 MCG G-TUBE (09:46)
[2024-11-30] MEDS: Sertraline HCL 50 MG TABLET G-TUBE (09:46)
[2024-11-30] MEDS: Cyclobenzaprine HCl 10 MG TABLET G-TUBE ×2 (09:46→16:26)
[2024-11-30] MEDS: Ascorbic Acid 500 MG TABLET G-TUBE (09:46)
[2024-11-30] MEDS: Glycopyrrolate 0.2 MG/ML VIAL 0.1 MG IVPUSH (10:42)
--- NOTE | 2024-11-30 11:33 | P.DS_ITS ---
DS: Providers Provider Date of Service: 11/30/24 Date of admission: 11/18/24 23:26 Date of discharge: 11/30/24 Primary care physician: Ebenezer Leslie MD Consults: 11/19/24 17:28 Consult to Neurology Routine Consulting Provider: [facility] Reason for consultation: worsening MS/NMO 11/21/24 19:41 Consult to Wound Care Routine Reason for consultation: stage 2 coccyx 11/22/24 13:42 Consult to General Surgery Routine Consulting Provider[place] [facility] [facility] Reason for consultation: peg placement /dysphagia Has provider been notified: No 11/22/24 14:25 Consult to Infectious Diseases Routine Consulting Provider: [facility] [place] [facility] Reason for consultation: recurrent uti Has provider been notified: No 11/24/24 13:20 Consult to Pulmonology Routine Consulting Provider: [facility] [place] [facility] Reason for consultation: difficulty managing secretion ? trach Has provider been notified: No DS: Diagnosis Discharge Diagnosis (1) Pneumonia: Status: Acute (2) Aspiration pneumonia: Status: Acute (3) Dysphagia: Status: Acute DS: Summary Hospital Course Hospital Course: From the history and physical by the admitting hospitalist, Terell Walker MD, 11/19/24: Patient is a 39 year old male with underlying history of multiple sclerosis, neurogenic bladder (followed by Dr. Cao), recurrent UTI who presents to the ER from home complaining of generalized weakness, poor appetite with decreased oral intake and fevers and is found to have sepsis and UTI. He was seen in the ER 3 days ago after he accidentally pulled out his suprapubic catheter which was replaced and is currently draining well.? He was sleepy when I saw him and did not give much additional information.? Initial blood work done revealed a leukocytosis of 18.7 K with a left shift and a low grade fever of 99.7 F. Urinalysis revealed elevated specific gravity, small leukocyte esterase and >50 WBC/HPF but with no bacteria.? An assessment of sepsis due to UTI was made and he was started on IV Ceftriaxone and admission requested. 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 Hospital course by problem: Sepsis due to complicated UTI likely due to chronic suprapubic catheter + pneumonia. Admitted to medical floor treated with broad-spectrum antibiotics cefepime and vancomycin subsequently antibiotic transitioned to IV linezolid patient finished course of antibiotic on 11/29, BCx negative at 48hr; MRSA swab positive; resp pathogen panel negative; urinary antigens for Legionella and pneumococcus negative lactate normal. PCT jay from 0.08 to 5.97 and back down to 0.12; WBC normalized, currently on scopolamine patch q.72 hours since patient with difficulty clearing secretions urine grew Enterococcus faecalis [id number] and Trichosporon asahii greater than 100,000. consulted pulmonology regarding question of tracheostomy as pt unable to manage secretions, but now pt is refusing. Dysphagia/aspiration/difficulty clearing throat - MBSS with gabby aspiration; not safe for POs, treated with IV PPN, subsequently seen by General Surgery and PEG placed 11/24 started tube feeds , currently tolerating Jevity 85 mL/hours. Acute hypoxic respiratory failure resolved NMO/MS or other demyelinating disease seen by neurologist Dr. Huber; recommended 1g methylprednisolone daily x3 doses 11/21-11/23, now transitioned back to 20 mg/d prednisone home dose,, on 11/23 neuro recommended MRI brain/C-spine and thoracic spine due to atypical presentation with MS being 1 possibility, neuromyelitis optica syndrome was a possibility though patient never had optic neuritis. - MRI brain showed no abnormal postcontrast enhancement; confluent white matter disease involving posterior fossa significantly progresssed since prior - MRI cervical and thoracic spine with a without contrast showed atrophy with mild diffuse central due to signal prolongation - status post LP, done by IR 11/25. CSF shows markedly elevated protein. O ligoclonal bands and autoimmune encephalitis antibodies pending HypoK/hypoPO4 repleted He was discharged home with VNA services. Family was trained to tube feeds. He should follow up with [facility] [place]he requested to change from [facility]] for results of lumbar puncture, and with [facility] [place] for ongoing monitoring of his neuromuscular weakness that might compromise his respiratory status. Time Attestation Discharge Coordination Time (in mins): 40 Quality: Safe Use of Opioids Does Pt have an Active Cancer Diagnosis on the Problem List?: No Quality: Stroke Does the patient have a stroke diagnosis?: No Physical Exam Vital Signs: Vital Signs: Last Vital Signs Temp 98.0 F 11/30/24 10:43 Pulse 99 11/30/24 10:43 Resp 20 11/30/24 10:43 BP 118/76 11/30/24 10:43 Pulse Ox 94 11/30/24 10:43 O2 Del Method Room Air 11/30/24 10:43 O2 Flow Rate 2 11/24/24 10:29 BMI result Body Mass Index 27.3 Const: Other: Gen: quadriparesis , no distress HEENT: sclera anicteric, moist mucus membranes Neck: supple Lungs: diminished Heart: regular rate and rhythm, no murmurs Abd: soft, non-tender, non-distended, peg in place, no surrounding erythema : suprapubic catheter Ext: no edema Skin: warm/well-perfused Neuro: alert and oriented x3, spastic quadraparesis. Psych: appropriate affect DS: Data Data Completed and Pending Completed studies during hospitalization [Text1]: Procedures Drainage of Bladder with Drainage Device, Percutaneous Endoscopic Approach (10/20/23) Introduction of Vasopressor into Peripheral Vein, Percutaneous Approach (04/05/23) Labs on day of discharge: Laboratory Results - last 24 hr 11/30/24 07:33 Sodium 141 Potassium 3.1 L Chloride 104 Carbon Dioxide 24 Anion Gap 16 BUN 9 Creatinine 0.52 Estim Creat Clear Calc 188.8 Estimated GFR > 60 Random Glucose 97 Calcium 8.9 Phosphorus 3.7 Magnesium 2.1 Discharge Plan Discharge Anticipated Discharge Date/Time: 11/30/24 11:27 Patient Disposition: Home Health Service Discharge Diagnosis: Sepsis due to UTI Dysphagia Acute hypoxic respiratory failure Demyelinating disease Referrals: Name,MD Ebenezer [Primary Care Provider] - 1 Week Discharge Medications: New scopolamine base [Transderm-Scop] 1 mg over 3 days Patch 3 Day 1.5 mg EAR-BEHIND Q72H Qty: 10 0RF sennosides [Senna Lax] 8.6 mg Tablet 17.2 mg G-tube BEDTIME Qty: 30 0RF Continued (DME) syringe disposable, irrigation 60 mL syringe See Rx Instructions .Route Qty: 2 5RF Rx Instructions: As directed 2 per month (DME) Villatoro Catheter Tray Tray See Rx Instructions .Route Qty: 2 5RF Rx Instructions: As directed 2 per month (DME) Bardia Urinary Drainage Bag Misc See Rx Instructions .Route Qty: 2 5RF Rx Instructions: As directed, 2 per month (DME) Urinary Leg Bag Misc See Rx Instructions .Route Qty: 4 5RF Rx Instructions: As directed, 4 per month. (DME) Villatoro Catheter 20 Fr misc See Rx Instructions .Route Qty: 2 5RF Rx Instructions: As directed, 2 per month. clindamycin phosphate 1 % lotion 1 appl topical BID clotrimazole-betamethasone 1-0.05 % cream 1 appl topical BID prednisone 20 mg tablet 20 mg PO DAILY Changed cholecalciferol (vitamin D3) [Vitamin D3] 50 mcg (2,000 unit) capsule 50 mcg feeding tube DAILY Qty: 90 0RF cyclobenzaprine 10 mg tablet 10 mg feeding tube TID Qty: 90 0RF acetaminophen 500 mg tablet 500 mg feeding tube Q6H PRN (Reason: mild pain) Qty: 90 0RF sertraline 50 mg tablet 50 mg feeding tube DAILY Qty: 90 0RF ascorbic acid (vitamin C) [Vitamin C] 500 mg tablet 500 mg feeding tube BID 90 Days Qty: 180 1RF Discharge Orders: Discharge Order (Routine); Ordered 11/30/24 Ordered By: Romelia Casas Diet: Feeding through G-tube Activity on Discharge: As tolerated Stand Alone Forms: Patient Portal Discharge page Print Language: [place]ese Care Plan Goals: Continue Jevity 85 mL/hours and water bolus 240 mL every 8 hours Scopolamine patch q.72 hours to manage secretions Health Concerns: All medications through G-tube Plan of Treatment: Outpatient follow-up with neurologist Dr. Huber and primary care physician Outpatient follow-up with patient assessment coordinator Dr. Ardon for consideration of trach due to difficulty clearing secretions Assessment: As above
--- NOTE | 2024-11-30 12:35 | W.MHC.F2F ---
Service Date Service Date: 11/30/24 Encounter Date of encounter: 11/30/24 Reasons for Services Signs and symptoms assessed: Dysphagia on G-tube feedings, difficulty managing secretions, quadriparesis Reason for half-way: medication management, teach disease management and other Reason for speech therapy: swallowing impairment Homebound: Leaving the home is medically contraindicated at this time without the asist of a device and/or another person due th the listed conditions above and below. Reason homebound: leg weakness and bedbound/chairbound Certification: Based on the above findings, I certify that this patient is confined to the home and needs intermittent half-way care, physical therapy and/or speech therapy, or continues to need occupational therapy. The patient is under my care, and I have initiated the establishment of the plan of care. The patient will be followed by a physician who will periodically review the plan of care. Time Spent With Patient Time: Total time managing care of this patient today ____ minutes.
--- NOTE | 2024-11-30 12:46 | MHC.CM.PN ---
Second IMM sent to HCP, pt has been medically cleared for DC, he will go home today via BLS, and have home care services from [facility] and [facility].
--- NOTE | 2024-11-30 13:22 | MHC.SL.SWA ---
Speech Pathologist Impression: Risk of Aspiration Significant Oralpharyngeal Dysphagia Risk of Aspiration Due to: Neurological Condition Poor PO Intake Reduced Cognition Dysphasia Diet Status: No Change. Patient w/ PEG tube. Liquid Consistency and Strategies for Safe Swallow: Liquid Intake Recommendation: NPO Solid Food Consistency: Dietary Recommendations: NPO Additional Modifications to Solid Foods: Patient with silent aspiration, weak and ineffective cough/throat clear. Oral Medication Intake: NPO Please contact the pharmacy regarding appropriate crushable or liquid drug formulations that are available whenever modified delivery is recommended. Swallowing Recommended Treatments: Chewing Exercises Pharyngeal Resistive Exer Compens. Strategy Educat. Recommendation for Speech: Speech Therapy through VNA Modified Barium Swallow Study - Outpatient Comment: He is discharged home with VNA services. RECIPROCATING DRILL OPERATOR to be added to VNA referral for continued dysphagia treatment. Skilled ST recommended upon d/t to address dysphagia education, training, use of pharyngeal strengthening HEP and repeat visualization as indicated. Prognosis guarded for safe resumption of PO given nature and severity of pt dysphagia. [employer] Clinican/Clinical Fellow: No Supervisory Statement: I have reviewed and agree with the student/clinical fellow's documentation: N/A Speech Language Pathologist: Scarlet Wesley M.A., CCC-RECIPROCATING DRILL OPERATOR
[2024-11-30] MEDS: Scopolamine 1.5 MG PATCH.TD.3 EAR-BEHIND (16:25)
[2024-11-30] MEDS: oxyCODONE HCl Immed Release 5 MG TABLET G-TUBE (16:33)
[2024-12-01 18:09] LABS: Oligoclonal Banding Absent (Absent)
[2024-12-02 14:53] LABS: Yo Antibody, Serum Screen NEGATIVE (NEGATIVE)
[2024-12-03 15:17] LABS: Hu Antibody Screen, CSF NEGATIVE (NEGATIVE)
== END 2024-11-30 19:04 | disposition home health service (06) | DRG 698 ==
LOC: HO.ED 19:59 → HO.EDOVER 23:37 → HO.S3 11-19 12:02 → HO.IMC 11-19 13:40
PROVIDERS: Family Medicine; Hospitalist; Surgery; Admitting Provider Internal Medicine; Emergency Provider Emergency Medicine; PCP Internal Medicine Geriatric Medicine; Visit Provider Hospitalist
PROC: 0DH63UZ Insertion of Feeding Device into Stomach, Percutaneous Approach (ICD-10-PCS; CPT 43246; principal; 2024-11-24 09:30)
DX: T83.510A Infection and inflammatory reaction due to cystostomy catheter, initial encounter (principal); A41.9 Sepsis, unspecified organism; G82.50 Quadriplegia, unspecified; J69.0 Pneumonitis due to inhalation of food and vomit; J96.01 Acute respiratory failure with hypoxia; G36.0 Neuromyelitis optica [Devic]; N39.0 Urinary tract infection, site not specified; B95.2 Enterococcus as the cause of diseases classified elsewhere; G35 Multiple sclerosis; E83.39 Other disorders of phosphorus metabolism; E87.6 Hypokalemia; E86.0 Dehydration; N31.9 Neuromuscular dysfunction of bladder, unspecified; R13.10 Dysphagia, unspecified; Z87.891 Personal history of nicotine dependence; Z87.440 Personal history of urinary (tract) infections; Z22.322 Carrier or suspected carrier of Methicillin resistant Staphylococcus aureus; Z79.52 Long term (current) use of systemic steroids; Z79.899 Other long term (current) drug therapy
CPT/HCPCS: 0241U; 36415; 62328; 70450; 70553; 71045; 71250; 71275; 72156; 72157; 74177; 74230; 80048; 80053; 80202; 81001; 82040; 82803; 82945; 82947; 83519; 83605; 83735; 83916; 84100; 84145; 84157; 84181; 84478; 84484; 85007; 85025; 85027; 85379; 85610; 86052; 86140; 86255; 86256; 86341; 87015; 87040; 87070; 87086; 87088; 87186; 87205; 87449; 87483; 87633; 87640; 87641; 87899; 89051; 92507; 92611; 93005; 99284; 99285; A9585; J0131; J0692; J0696; J1596; J1650; J1885; J2020; J2060; J2270; J2704; J2919; J3370; J3480; J7120; Q9967

== ENCOUNTER → 2024-11-18 19:24 | Outpatient (BNV) | payer OTHER, SELFPAY | PROVIDERS: Emergency Provider Emergency Medicine; Visit Provider Radiology Diagnostic Radiology | DX: R91.8 Other nonspecific abnormal finding of lung field (principal); J98.11 Atelectasis; A41.9 Sepsis, unspecified organism | CPT/HCPCS: 71045 ==

== ENCOUNTER → 2024-11-18 19:24 | Outpatient (BNV) | payer OTHER, SELFPAY | PROVIDERS: Admitting Provider Internal Medicine; Emergency Provider Emergency Medicine; PCP Internal Medicine Geriatric Medicine; Visit Provider Internal Medicine Cardiovascular Disease | DX: R94.31 Abnormal electrocardiogram [ECG] [EKG] (principal) | CPT/HCPCS: 93010 ==

== ENCOUNTER 2024-11-18 23:26 | Outpatient (BNV) | payer OTHER, SELFPAY | END 2024-11-19 19:24 | PROVIDERS: Admitting Provider Internal Medicine; Emergency Provider Emergency Medicine; PCP Internal Medicine Geriatric Medicine; Visit Provider Radiology Diagnostic Radiology | DX: N20.0 Calculus of kidney (principal); T83.511A Infection and inflammatory reaction due to indwelling urethral catheter, initial encounter; R91.8 Other nonspecific abnormal finding of lung field; R41.82 Altered mental status, unspecified | CPT/HCPCS: 70450; 71250; 74177; 74230 ==

== ENCOUNTER 2024-11-18 23:26 | Outpatient (BNV) | payer OTHER, SELFPAY | END 2024-11-25 13:00 | PROVIDERS: Admitting Provider Internal Medicine; Emergency Provider Emergency Medicine; PCP Internal Medicine Geriatric Medicine; Visit Provider Radiology Diagnostic Radiology | DX: G82.50 Quadriplegia, unspecified (principal) | CPT/HCPCS: 62328 ==

== ENCOUNTER 2024-11-18 23:26 | Outpatient (BNV) | payer OTHER, SELFPAY | END 2024-11-23 17:04 | PROVIDERS: Admitting Provider Internal Medicine; Emergency Provider Emergency Medicine; PCP Internal Medicine Geriatric Medicine; Visit Provider Radiology Vascular & Interventional Radiology | DX: G31.9 Degenerative disease of nervous system, unspecified (principal); G12.9 Spinal muscular atrophy, unspecified | CPT/HCPCS: 70553; 72156; 72157 ==

== ENCOUNTER 2024-11-18 23:26 | Outpatient (BNV) | payer OTHER, SELFPAY | END 2024-11-21 11:25 | PROVIDERS: Admitting Provider Internal Medicine; Emergency Provider Emergency Medicine; PCP Internal Medicine Geriatric Medicine; Visit Provider Radiology Diagnostic Radiology | DX: J69.0 Pneumonitis due to inhalation of food and vomit (principal) | CPT/HCPCS: 71275 ==

== ENCOUNTER → 2024-11-18 23:26 | Outpatient (BNV) | payer OTHER, SELFPAY | PROVIDERS: Admitting Provider Internal Medicine; Emergency Provider Emergency Medicine; Visit Provider Internal Medicine | DX: G37.9 Demyelinating disease of central nervous system, unspecified (principal); N31.9 Neuromuscular dysfunction of bladder, unspecified; A41.02 Sepsis due to Methicillin resistant Staphylococcus aureus; R13.10 Dysphagia, unspecified; N39.0 Urinary tract infection, site not specified | CPT/HCPCS: 99223; 99232; 99233; 99499 ==

== ENCOUNTER → 2024-11-18 23:26 | Outpatient (BNV) | payer OTHER, SELFPAY | PROVIDERS: Admitting Provider Internal Medicine; Emergency Provider Emergency Medicine; PCP Internal Medicine Geriatric Medicine; Visit Provider Psychiatry & Neurology Neurology | DX: G37.9 Demyelinating disease of central nervous system, unspecified (principal) | CPT/HCPCS: 99222 ==

== ENCOUNTER → 2024-11-18 23:26 | Outpatient (BNV) | payer OTHER, SELFPAY | PROVIDERS: Admitting Provider Internal Medicine; Emergency Provider Emergency Medicine; PCP Internal Medicine Geriatric Medicine; Visit Provider Internal Medicine | DX: N39.0 Urinary tract infection, site not specified (principal) | CPT/HCPCS: 99222 ==

== ENCOUNTER → 2024-11-18 23:26 | Outpatient (BNV) | payer OTHER, SELFPAY | PROVIDERS: Admitting Provider Internal Medicine; Emergency Provider Emergency Medicine; PCP Internal Medicine Geriatric Medicine; Visit Provider Surgery | DX: R13.10 Dysphagia, unspecified (principal) | CPT/HCPCS: 43246; 99232 ==

== ENCOUNTER → 2024-11-18 23:26 | Outpatient (BNV) | payer OTHER, SELFPAY | PROVIDERS: Admitting Provider Internal Medicine; Emergency Provider Emergency Medicine; PCP Internal Medicine Geriatric Medicine; Visit Provider Hospitalist | DX: R13.10 Dysphagia, unspecified (principal); G37.9 Demyelinating disease of central nervous system, unspecified; J69.0 Pneumonitis due to inhalation of food and vomit | CPT/HCPCS: 99223 ==

== ENCOUNTER 2024-12-01 12:20 | Emergency (ER) | payer OTHER, SELFPAY ==
--- NOTE | ~2024-12-01 | XR_ITS ---
EXAMINATION: XR ABDOMEN KUB CLINICAL INDICATION: gastrograf feeding tube check COMPARISON: None. Correlation made with CT abdomen and pelvis 11/19/2024. TECHNIQUE: AP view of the abdomen performed after small amount of Gastrografin was injected through G-tube. FINDINGS: Contrast normally opacifies the antrum of the stomach through the G-tube, and progresses into the duodenum and proximal jejunum. No extravasation of contrast. Mild gaseous distention of the colon is noted. No small bowel dilatation. Residual enteric contrast is present in the splenic flexure descending colon. Villatoro catheter is in place. 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 No subchondral collapse. XR/XR KUB IMPRESSION: 1. G-tube is in appropriate location. No extravasation of contrast. 2. Villatoro catheter in place. 3. Mild gaseous distention of the colon. 4. Bilateral hip joint AVN. Electronically signed by: Dusty Mcgrath MD 12/01/2024 01:36 PM [facility]
--- NOTE | 2024-12-01 12:25 | ED_ITS ---
HPI - General Adult General Chief complaint: General Medical Stated complaint: clogged g tube, paraplegic Time Seen by Provider: 12/01/24 12:25 History of Present Illness ED Provider: Iman VILLELA narrative: The patient is a 39-year-old male with a history of multiple sclerosis and a neurogenic bladder who was recently hospitalized from November 19 through November 30. He has been hospitalized for possible urosepsis. While in the hospital he had a lumbar puncture. He also had placement of a PEG feeding tube. He was advised to possibly have a tracheostomy because of difficulty managing secretions but the patient declined. The PEG tube was placed on November 24. The spinal tap showed markedly elevated protein. MRI of the brain and the spine showed chronic problems more than acute problems. He was discharged from the hospital yesterday. His new medications at discharge with scopolamine and sennosides. No ongoing antibiotics. The patient returns today after having accidentally pulled out his feeding tube. Related Data Home Medications ?Medication ?Instructions ?Recorded ?Confirmed clindamycin phosphate 1 % lotion 1 appl topical BID 09/10/24 11/19/24 clotrimazole-betamethasone 1 1 appl topical BID 10/11/24 11/19/24 %-0.05 % topical cream prednisone 20 mg tablet 20 mg PO DAILY 10/21/24 11/19/24 Previous Rx's ?Medication ?Instructions ?Recorded syringe disposable, irrigation 60 #2 ea 01/06/24 mL catheter 20 Fr (Villatoro Catheter) #2 ea 08/19/24 catheterization tray (Villatoro #2 ea 08/19/24 Catheter Tray) urinary bag (Bardia Urinary #2 ea 08/19/24 Drainage Bag) urinary bag (Urinary Leg Bag) #4 ea 08/19/24 acetaminophen 500 mg tablet 500 mg feeding tube Q6H PRN mild 11/29/24 pain #90 tabs ascorbic acid (vitamin C) 500 mg 500 mg feeding tube BID 90 days 11/29/24 tablet (Vitamin C) #180 tabs cholecalciferol (vitamin D3) 50 50 mcg feeding tube DAILY #90 caps 11/29/24 mcg (2,000 unit) capsule (Vitamin D3) cyclobenzaprine 10 mg tablet 10 mg feeding tube TID #90 tabs 11/29/24 sertraline 50 mg tablet 50 mg feeding tube DAILY #90 tabs 11/29/24 scopolamine base 1 mg over 3 days 1.5 mg EAR-BEHIND Q72H #10 ea 11/30/24 transdermal patch (Transderm-Scop) sennosides 8.6 mg tablet (Senna 17.2 mg (2 x 8.6 mg) G-tube 11/30/24 Lax) BEDTIME #30 tabs Allergies Allergy/AdvReac Type Severity Reaction Status Date / Time doxycycline Allergy Rash Verified 12/01/24 12:44 Review of Systems Review of Systems: Yes all other systems are reviewed and are negative 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 Microcytic anemia Multiple sclerosis Headache Surgical History H/O hernia repair Family History Family History Other No family history of coronary artery disease Social History Social History Household Members: Family Household Members Other:: parents Housing: Apartment 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 have visiting nurse or other home services: Yes Unable to assess alcohol history related to: Unknown Alcohol intake: never Patient Tobacco Use Status: Former Tobacco user Tobacco use type: Cigarette Cigarettes Per Day: 0.25 Substance Use Type: Marijuana Advance Directives Date on File: 12/01/24 service: No Current occupational status: disabled Physical Exam ED Vital Signs: Vital Signs - 24 hr 12/01/24 12:41 12/01/24 16:15 Temperature 98.9 F 98.7 F Pulse Rate 108 H 119 H Respiratory Rate 18 16 Blood Pressure 105/73 127/81 Pulse Oximetry 91 L 93 Oxygen Delivery Method Room Air Room Air BMI result Body Mass Index 25.1 Const Other: The patient is a chronically ill-appearing 39-year-old male. He is awake and alert. He looks quite chronically ill. He does not appear obviously acutely ill. His mucous membranes look dry however. HENMT Other: The patient has very dry mucous membranes. Eyes Other: Pupils are round equal. There is chronic esotropia. Conjunctivae are clear. Neck Neck: Yes full ROM Resp Effort & Inspection: normal respiratory effort Auscultation: clear to auscultation bilaterally Cardio Rate: regular rate Rhythm: regular rhythm Heart sounds: S1 normal heart sound present and S2 normal heart sound present GI Other: The abdomen is soft and nontender. There is a suprapubic catheter in the suprapubic region. In the epigastrium is a G-tube stoma. Back/Spine/Pelvis Other: The patient has a pressure dressing over the sacrum. Skin Other: Skin is pale and dry Neuro Other: The patient is awake and alert. His mental status I think seems fairly clear. He is difficult to understand because his voice is quite weak. He has chronic esotropia. Face seems symmetrical. He has very weak extremities. Extrem Other: The patient has atrophied lower extremities Medications Administered Discontinued Medications Generic Name Dose Route Start Last Admin Trade Name Freq PRN Reason Stop Dose Admin Acetaminophen 650 mg 12/01/24 15:58 12/01/24 16:39 Acetaminophen Oral Liquid 650 Mg/20.3 Ml Solution PO 12/01/24 15:59 Not Given ONCE ONE Acetaminophen 650 mg 12/01/24 16:40 12/01/24 17:06 Acetaminophen 325 Mg Tablet G-TUBE 12/01/24 16:41 650 mg ONCE ONE Administration Cyclobenzaprine HCl 10 mg 12/01/24 15:58 12/01/24 17:07 Cyclobenzaprine Hcl 10 Mg Tablet G-TUBE 12/01/24 15:59 10 mg ONCE ONE Administration Diatrizoate Meglum/Diatrizoate Sod 30 ml 12/01/24 13:27 12/01/24 13:28 Diatrizoate Meglumine, Sodium 30 Ml Solution PO 12/01/24 13:28 30 ml ONCE ONE Administration Lidocaine HCl 10 ml 12/01/24 12:25 12/01/24 12:41 Lidocaine Hcl 2 % Urojet 10 Ml Jel.Pf.Juan TOPICAL 12/01/24 12:26 10 ml ONCE ONE Administration Procedures Feeding Tube Replacement Type of Tube: gastrostomy Insertion Site Prior to Procedure: clean Tube Used for Reinsertion: other (Avanos JENIFFER Gastrostomy feeding tube) [place] Tube Size (F): 20 Balloon size (mL): 10 Verification of Placement: gastrografin injection Tube Secured by: tape/dressing Patient Tolerated Procedure: well and no complications Medical Decision Making Medical Decision Making MDM Narrative: The patient is a 39-year-old male with a history of multiple sclerosis who came to the hospital by ambulance because he had accidentally pulled out his PEG tube. I initially misunderstood the timing of the placement of the tube and attempted to replace a 20 [place] G-tube after instilling lubricant with anesthesia using a Uro jet. I was able to easily insert the 20 [place] tube through the stoma without difficulty. I easily inflated the balloon. The patient went for a Gastrografin study to check the placement of the feeding tube and this showed that the tube was placed intraluminally. This was relief because I had missed judged the time that the tube tract had had to mature. In fact the tube was relatively recently, being placed only 1 week ago. I contacted Dr. Arias of General surgery who placed the tube and we agreed that since the tubes seemed intraluminal on x-ray with Gastrografin that the use of the tube could be resumed. I contacted the patient's family. It seems as though the primary reason for returning to the ER today was because of the dislodging of the feeding tube. No other acute events. I spoke to case management. Visiting nurses his supposed to begin seeing the patient tomorrow. The patient will therefore be discharged to return home and continue care as recommended at discharge from the hospital yesterday. Discharge Plan Discharge Clinical Impression: Complication of feeding tube, Multiple sclerosis Patient Disposition: Home, Self-Care Additional Instructions: The feeding tube has been replaced. An x-ray shows that the feeding tube is in good position. You may resume using the feeding tube. Visiting nurses should be coming tomorrow. Continue all your regular medications. Follow-up as recommended yesterday. Return to the ER if worse. Prescriptions: No Action (DME) syringe disposable, irrigation 60 mL syringe See Rx Instructions .Route Qty: 2 5RF Rx Instructions: As directed 2 per month (DME) Villatoro Catheter Tray Tray See Rx Instructions .Route Qty: 2 5RF Rx Instructions: As directed 2 per month (DME) Bardia Urinary Drainage Bag Misc See Rx Instructions .Route Qty: 2 5RF Rx Instructions: As directed, 2 per month (DME) Urinary Leg Bag Misc See Rx Instructions .Route Qty: 4 5RF Rx Instructions: As directed, 4 per month. (DME) Villatoro Catheter 20 Fr misc See Rx Instructions .Route Qty: 2 5RF Rx Instructions: As directed, 2 per month. clindamycin phosphate 1 % lotion 1 appl topical BID clotrimazole-betamethasone 1-0.05 % cream 1 appl topical BID prednisone 20 mg tablet 20 mg PO DAILY cyclobenzaprine 10 mg tablet 10 mg feeding tube TID Qty: 90 0RF acetaminophen 500 mg tablet 500 mg feeding tube Q6H PRN (Reason: mild pain) Qty: 90 0RF ascorbic acid (vitamin C) [Vitamin C] 500 mg tablet 500 mg feeding tube BID 90 Days Qty: 180 1RF sertraline 50 mg tablet 50 mg feeding tube DAILY Qty: 90 0RF cholecalciferol (vitamin D3) [Vitamin D3] 50 mcg (2,000 unit) capsule 50 mcg feeding tube DAILY Qty: 90 0RF scopolamine base [Transderm-Scop] 1 mg over 3 days Patch 3 Day 1.5 mg EAR-BEHIND Q72H Qty: 10 0RF sennosides [Senna Lax] 8.6 mg Tablet 17.2 mg G-tube BEDTIME Qty: 30 0RF Print Language: Czech
[2024-12-01 12:38] VITALS: BP 124/90; PULSE 120; O2SAT 98
[2024-12-01 12:41] VITALS: BP 105/73; PULSE 108; RESP 18; TEMP 37.2; O2SAT 91; BMI 25.1
[2024-12-01] MEDS: Lidocaine HCl 2 % Urojet 10 ML JEL.PF.APP TOPICAL (12:41)
[2024-12-01] MEDS: Diatrizoate Meglumine, Sodium 30 ML SOLUTION PO (13:28)
--- NOTE | 2024-12-01 13:42 | MHC.CM.ED ---
Patient currently in ER. Patient was d/c'd from [facility] on 11/30. Received notification from [facility] that patient was referred to their agency. Was not able to admit patient to [facility] because he ended up in ER. Return referral made to [facility] so agency can follow for d/c needs.
--- OUTSIDE RECORDS SUMMARY | 2024-12-01 14:00 | XMS_ITS | Data Portability ---
Author Organization [facility], Pr in - [facility] Address [address] [place] [address] Care Team Providers Care Nitrocellulose Maker Name Role Phone NAME, KEAGAN Primary Care Provider HIM ELLI OTHER Assessment Encounter Date Assessment Date Assessment LastModified by Organization Details LastModified Time 10/20/2024 10/20/2024 I have reviewed and agree with the assessment and plan as documented by the head nurse. I provided real-time medical direction for this [...] None recorded. Imaging electrocard iogram 2024 025 [facility], [address] [place] [address], [place], [address], 18:18:18 Medication Orders None recorded. Patient TargetsNo targets recorded. Patient InstructionsNo instructions recorded. Reason for Referral None Reported. Results Created Date Observation Date Name Description Value Unit Range Abnormal Flag Note LastModifiedBy Organization Detail LastModifiedTime 10/20/19 25 marilu melchor am No observ ation record ed. [address], [address], 10/20/2024 18:18:16 Result Notes None recorded. Procedures Surgical History None recorded. Imaging Results Imaging Date Name Status LastModified by Organization Details LastModified Time 10/20/2024 electrocardiogram completed [address], [address], 10/20/2024 18:18:16 Procedure Notes None recorded. Medical [...] SNOMED-CT Code Diagnosis ICD10 Code Diagnosis Note 20479 Nicole Mary MD Main - instED [address] [place] [phone] 10/20/2024 17:54:41 10/20/2024 22:18:37 Tachycardia 5143280 R00.0 Health Concerns Section Related Observation LastModified by Organization Detai ls LastModified Time None Recorded Concern Status LastModified by Organization Details LastModified Time None Recorded Advance Directives Directive None Recorded Payers Encounter Date Sequence Insurance Name Policy Number Policy Hendricks Covered Member ID Hendricks Member ID Guarantor Name 10/20/2024 1 [facility] - DOS ON OR AFTER 2023 - DUAL ELIGIBLE - [employer] OPTIONS AND ONE CARE (MEDICARE REPLACEMENT/ADV ANTAGE - HMO) Justus Gilman [id number] Justus Gilman Notes Date Note Type Note Provider Name and Address Organization Details Recorded Time 10/20/19 25 text/htm l HPI: Ice Cream Dispenser verified the patient's name//address and phone number. [...] Salguero RN .............................. .............................. .............................. .............................. ..................... [facility] Nurse Triage Notes (Mehrdad Salguero - MAUREEN): Reason For Request: Nurse Harris from [facility] calling for pt Rafael. Jerome has MS and is having a hard time swallowing with concern of aspiration and elevated heartrated Chief Complaints: Heart rate problems, Choking PMH: Multiple Sclerosis, Osteoporosis PMH Reviewed at 10/20/2024:53 Allergies Reviewed at 10/20/2024 16:53 Cullet Washer Organization Information for Payam Treelevi Anderson Legal Name: [employer] [address]: [address] [place] [address], [place] [address], Asbestos Hazard Abatement Worker: Kuldeep Dexter MD CLIA No.: [id number] Cullet Washer POC Test Results from Payam Treelevi SHAFFER EKG (18:00:25) EKG test performed. Attachments uploaded as part of this test result can be found under Documents section. SEGMD: Cullet Washer note did not crossover into [place] so I am entering it here. I [...] of the Pt per his request. This head nurse remained on scene monitoring Pt until EMS arrived. 20g IV in L hand placed while waiting. ALL times are approx.Services ProvidedPatient Education, EKGDispositionFulfilledWas patient sent to ED?YesVMC consulted on the case?Yes - Christina Laboy MD [address] [facility],[address], [place], [address], [place] - Reelio 10/21/2024 17:32:55
--- OUTSIDE RECORDS SUMMARY | 2024-12-01 14:00 | XMS_ITS | Encounter Summary ---
Author Organization [facility] Address [address] [place] [address] Care Team Providers Care Farm Crew Member Name Role Phone Name, Ebenezer ROGERS Primary Care Provider [phone] Encounter Details Date Type Department Care Team (Late st Contact Info) Description 08/03/2024 7:54 AM EDT Hospital Encounter TH HISTORIC ENCOUNTERS EASTERN CONVERSION ONLY Olena Arnett MD [address] [facility] [address] [place] [address] Social History Tobacco Use Types Packs/Day Years Used Date Smoking Tobacco: Former Cigarettes Q uit: 10/13/2021 Smokeless Tobacco: Never Alcohol Use Standard Drinks/Week Comments Not Currently 0 (1 standard drink = 0.6 oz pur e alcohol) Sex and Gender Information Value Date Recorded Sex Assigned at Not on file Legal Sex Male 5:05 AM EST Gender Identity Not on file Sexual Orientation Not on file documented as of this [...] has been getting PT OT outpatient at [facility] and they are working from sit to [...] as per protocol -Preinfusion labs as per [facility] protocol -Continue monthly IVIG, patient feels [...] 40 minutes. The majority of the actual mafx-ay-lcdq visit was spent counseling the patient with respect to the current neurological picture. Olena Arnett MD documented in this encounter Plan of Treatment Upcoming Encounters Date Type Department Care Team (Late st Contact Info) Description 01/11/2025 8:00 AM EDT Appointment [facility] for [place] Outpatient Rehabilititation - [address] [address] documented as of this encounter Goals Goal Patient Goal Type Associated Problems Recent Progress Patient-Stated? Author LTGs General No Kingsley Alegria PT Note: Pt will transfer sit to stand from w/c level with mod assist Pt will transfer stand-pivot toward left with w/walker and mod assist Pt will transfer stand-pivot toward right with w/walker and mod assist Pt will be independent with HEP documented as of this encounter Visit Diagnoses Not on filedocumented in this encounter Care Teams Farm Crew Member Relationship Specialty Start Date End Date Name, MD Ebenezer [address] [facility] [place] PCP - General 11/27/22 documented as of this encounter
--- OUTSIDE RECORDS SUMMARY | 2024-12-01 14:00 | XMS_ITS | Encounter Summary ---
Author Organization [facility] Address [address] [place] [address] Care Team Providers Care Hoop Punch And Coiler Operator Name Role Phone Name, Ebenezer ROGERS Primary Care Provider [phone] Encounter Details Date Type Department Care Team (Late Contact Info) Description 07/14/2024 8:00 AM EDT [...] Info) Description 01/11/2025 8:00 AM EDT Appointment [facility] [place] Out[facility]habilititation [address] [address] documented as of this encounter Goals [...] on filedocumented in this encounter Care Teams Hoop Punch And Coiler Operator Relationship Specialty Start Date End Date Name, MD Ebenezer [address] [place], [place] PCP - General 11/27/22 documented as of this encounter
--- OUTSIDE RECORDS SUMMARY | 2024-12-01 14:00 | XMS_ITS | Encounter Summary ---
Author Organization [facility] Address [address] [place] [address] Care Team Providers Care Campground Hand Name Role Phone Name, Ebenezer ROGERS Primary Care Provider [phone] Encounter Details Date Type Department Care Team [...] Info) Description 01/11/2025 8:00 AM EDT Appointment [facility] [place] Outpatient Rehabilititation [address] [address] documented as of this encounter Goals Goal Patient Goal Type Associated Problems Recent Progress Patient-Stated? Author LTGs General No Kignsley Alegria, PT Note: Pt will transfer sit to stand from w/c level with mod assist Pt will transfer stand-pivot toward left with w/walker and mod assist Pt will transfer stand-pivot toward right with w/walker and mod assist Pt will be independent with HEP documented as of this encounter Visit Diagnoses Not on filedocumented in this encounter Care Teams Campground Hand Relationship Specialty Start Date End Date Name, MD Ebenezer [address] [place], [place] PCP - General 11/27/22 documented as of this encounter
--- OUTSIDE RECORDS SUMMARY | 2024-12-01 14:00 | XMS_ITS | Clinical Summary ---
Author Organization [facility] Address [address] [place] [address] Phone Care Team Providers Care Residential Property Consultant Name Role Phone Name, Ebenezer ROGERS Primary Care Provider [phone] Allergies No known active allergies Medications acetaminophen (TYLENOL) 500 mg tablet Take 1 tablet (500 mg total) by mouth every 6 (six) hours if needed. for mild pain 4 Active ascorbic acid (VITAMIN C) 500 mg tablet Take 1 tablet (500 mg total) by mouth 2 (two) times a day. 4 Active baclofen (LIORESAL) 20 mg tablet Take 1 tablet (20 mg total) by mouth. at bedtime 4 Active cefuroxime (CEFTIN) 250 mg tablet 4 Active cetirizine (ZyrTEC) 10 mg tablet 4 Active Vitamin D3 50 mcg (2,000 unit) capsule Take 1 capsule (2,000 Units total) by mouth 1 (one) time each day in the morning. Active cyclobenzaprine (FLEXERIL) 10 mg tablet Take 1 tablet (10 mg total) by mouth. 4 Active doxycycline hyclate (VIBRA-TABS) 100 mg tablet TAKE 1 TABLET BY MOUTH TWICE DAILY FOR FOURTEEN DAYS TAKE WITH A FULL GLASS OF WATER AND Do not lie down for 30 minutes after taking 4 Active gabapentin (NEURONTIN) 300 mg capsule TAKE 1 CAPSULE BY MOUTH DAILY AT BEDTIME FOR 1 WEEK THEN 2 CAPSULES AT BEDTIME MAY TAKE 1 ADDITIONAL CAPSULE IN THE MORNING as tolerated 4 Active levoFLOXacin (LEVAQUIN) 750 mg tablet Take 1 tablet (750 mg total) by mouth. 4 Active LORazepam (ATIVAN) 0.5 mg tablet 1 p.o. 1 hour prior to MRI, may repeat 1 tab at time of MRI if needed 4 Active methenamine hippurate (HIPREX) 1 gram tablet Take 1 tablet (1 g total) by mouth 1 (one) time each day. 4 Active sertraline (ZOLOFT) 50 mg tablet Take 1 tablet (50 mg total) by mouth 1 (one) time each day in the morning. Active traMADoL (ULTRAM) 50 mg tablet Take 1 tablet (50 mg total) by mouth every 8 (eight) hours if needed for severe pain. Max Daily Amount: 150 mg 4 Active predniSONE (DELTASONE) 20 mg tablet Take 1 tablet (20 mg total) by mouth 1 (one) time each day. 30 each 1 4 Active tiZANidine (ZANAFLEX) 2 mg tablet Take 1 tablet (2 mg total) by mouth 3 (three) times a day. Take 1 tablet (2 mg total) by mouth 3 (three) times a day. 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 Encounters Date Type Department Care Team Description 10/20/2024 10:09 AM EST - 10/20/2024 11:59 PM EST Hospital Encounter [facility] [address] [phone] Jeanne Hewitt MD Demyelinating neuropathy Discharge Disposition: Home or Self Care 09/06/2024 10:16 AM EST - 09/06/2024 11:59 PM EST Hospital Encounter [facility] [address] [phone] Demyelinating neuropathy (Primary Dx) Discharge Disposition: Home or Self Care 09/03/2024 Telephone [facility] [address] [facility] [address] [place] [phone] Olena Arnett MD from Last 3 Months Immunizations Name Administration Dates Next Due [facility] SARS-CoV-2 COVID-19, mRNA, LNP-S, preservative free 08/14/2021,07/24/2021 [...] on file Sexual Orientation Not on file Obstetrics History Last Filed [...] Info) Description 01/11/2025 8:00 AM EDT Appointment [facility] [place] Outpatient Rehabilititation [address] [address] Health Maintenance Due Date Last [...] patient's age to complete this topic Meningococcal B Vacine Aged Out No lo nger eligible based on patient's age to complete [...] LAB CHEMISTRY METHOD 09/06/2024 12:39 PM EST [facility] eGFR 127 >=60 mL/min/1. 73m2 LAB CHEMISTRY METHOD 09/06/2024 12:39 PM EST [facility] Comment:Calculation based on the??Chronic Kidney Disease Epidemiology Collaboration (CKD-EPI) equation refit??without adjustment for race. Blood Venous blood specimen / Unknown Venipuncture / Unknown 09/06/2024 10:37 AM EST 09/06/2024 11:32 AM EST Jeanne Hewitt MD LAB BLOOD ORDERABLES Final R esult Performing Organization Address City/[facility]/ZIP Co de Phone Number [facility] [address] [place] [address], [place] [phone] * BUN (09/06/2024 10:37 AM EST) BUN 8 5 - 25 mg/dL LAB CHEMISTRY METHOD 09/06/2024 12:39 PM EST [facility] Blood Venous blood specimen / Unknown Venipuncture / Unknown 09/06/2024 10:37 AM EST 09/06/2024 11:32 AM EST Jeanne Hewitt MD LAB BLOOD ORDERABLES Final R esult [facility] [address] [place] [address], [place] [phone] from Last 3 Months Insurance [facility] MEDICA[facility] Advance Directives Documents on File Type Date Recorded Patient Flight Communications Officer Expl anation Health Care Decision (hx) 10/29/2022 [...] (hx) 09/24/2021 AD GONZALEZ DIRECTIVE Care Teams Residential Property Consultant Relationship Specialty Start Date End Date Name, MD Ebenezer [address] [place] [address] PCP - General 11/27/22
--- OUTSIDE RECORDS SUMMARY | 2024-12-01 14:00 | XMS_ITS | Encounter Summary ---
Author Organization [facility] Address [address] [place] [address] Care Team Providers Care Handmade Tile Artist Name Role Phone Name, Ebenezer ROGERS Primary Care Provider [phone] Encounter Details Date Type Department Care Team ([facility] st Contact Info) Description 08/09/2024 10:34 AM [...] Info) Description 01/11/2025 8:00 AM EDT Appointment [facility] [place] Outpatient Rehabilititation [address] [address] documented as of this encounter [...] on filedocumented in this encounter Care Teams Handmade Tile Artist Relationship Specialty Start Date End Date Name, MD Ebenezer [address] [place], [place] PCP - General 11/27/22 documented as of this encounter
--- OUTSIDE RECORDS SUMMARY | 2024-12-01 14:00 | XMS_ITS | Clinical Summary ---
Author Organization [facility] Address [address] [place] [address] Care Team Providers Care Asphalt Smoother Name Role Phone Name, Ebenezer ROGERS Primary Care Provider [phone] Allergies No known active allergies Medications Medication Sig Dispensed Refills Start Date End Date Status D3 Super Strength 50 MCG (1999) CAPS Take 1 capsule by mouth daily. 0 09/27/2022 Active Linwood-3 Fatty Acids (Fish Oil) 1000 MG CAPS [...] age to complete this topic Care Teams Asphalt Smoother Relationship Specialty Start Date End Date Name, MD Ebenezer [address] [facility] [address] [place] [address] PCP - General Internal Medicine 11/27/22
[2024-12-01 16:15] VITALS: BP 127/81; PULSE 119; RESP 16; TEMP 37.1; O2SAT 93
[2024-12-01] MEDS: Acetaminophen 325 MG TABLET 650 MG G-TUBE (17:06)
[2024-12-01] MEDS: Cyclobenzaprine HCl 10 MG TABLET G-TUBE (17:07)
[2024-12-01 18:48] VITALS: BP 127/81; PULSE 119; RESP 16; TEMP 37.1; O2SAT 93
== END 2024-12-01 18:49 | disposition home or self-care (01) ==
PROVIDERS: Emergency Provider Emergency Medicine
DX: K94.23 Gastrostomy malfunction (principal); G35 Multiple sclerosis
CPT/HCPCS: 74018; 99284

== ENCOUNTER → 2024-12-01 13:08 | Outpatient (BNV) | payer OTHER, SELFPAY | PROVIDERS: Emergency Provider Emergency Medicine; Visit Provider Radiology Diagnostic Radiology | DX: M87.050 Idiopathic aseptic necrosis of pelvis (principal); Z93.1 Gastrostomy status; Z96.0 Presence of urogenital implants | CPT/HCPCS: 74018 ==

== ENCOUNTER 2024-12-02 11:47 | Inpatient (IN) | payer OTHER, SELFPAY ==
[2024-12-02] VITALS (11 sets, daily range): BP systolic 107–143; BP diastolic 61–98; PULSE 136–167; RESP 16–27; TEMP 36.4–39.6; O2SAT 85–98; BMI 25.2
--- NOTE | ~2024-12-02 | XR_ITS ---
EXAMINATION: XR CHEST CLINICAL INFORMATION: Central line placement COMPARISON: December 02, 2024 and 1:10 PM. TECHNIQUE: Frontal view of the chest was obtained. FINDINGS: Right-sided central venous line inserted via right internal jugular vein ends at the SVC. No gross pneumothorax. Stable appearance of the lungs and cardiomediastinal silhouette. Gas filled mildly prominent hepatic and splenic colonic flexure is. XR/XR chest 1V IMPRESSION: Right-sided central venous line placed ending SVC without gross pneumothorax. Electronically signed by: Alejandro Miguel MD 12/02/2024 03:46 PM EST
--- NOTE | ~2024-12-02 | XR_ITS ---
CLINICAL HISTORY: CVL placement 1 view chest x-ray Comparison: CR - XR CHEST 1V - 12/15/24 03:[address]/SR - CT ANGIO CHEST PE PROTOCOL - 12/02/24 15:54 EST Findings: The right central venous line demonstrates an abnormal curvature to the left, towards the aortic knob. Possibility of carotid placement is considered. Normal venous anatomy on prior CTA. Slightly improved aeration left left upper lung otherwise continued consolidation of the left perihilar through lower lung. Stable endotracheal tube. Right lung clear. No other changes. Impression: Possible carotid placement of the right central line. Critical finding protocol initiated 633. This document has been electronically signed by: Syed Maldonado MD on 12/15/2024 06:36:10
--- NOTE | ~2024-12-02 | XR_ITS ---
EXAMINATION: XR CHEST CLINICAL INFORMATION: intubation COMPARISON: Chest 12/15/2024 TECHNIQUE: Frontal view of the chest was obtained. FINDINGS: There is interval increase in the left pleural effusion now extending to the upper lungs. There is a left lower lobe complete collapse. No midline shift seen. The right lung is expanded and clear. Endotracheal tube tip 2.9 cm above the cele. The heart size is likely within normal limits however the left border is not seen. XR/XR chest 1V IMPRESSION: Interval increase in the left pleural effusion with left lower lobe collapse. No midline shift seen. Endotracheal tube is in satisfactory position. Electronically signed by: Cj Diaz MD 12/17/2024 11:00 AM [facility]
--- NOTE | ~2024-12-02 | XR_ITS ---
EXAMINATION: XR CHEST CLINICAL INFORMATION: sob recent pneumonia COMPARISON: November 18, 2024. TECHNIQUE: Frontal view of the chest was obtained. FINDINGS: No hyperinflation. Linear opacity left lower hemithorax. No pleural effusion. No pneumothorax. Cardiomediastinal silhouette size is normal. Mild S-shaped curvature of the thoracic spine. Abundant stool within the splenic and hepatic colonic flexure's. XR/XR chest 1V IMPRESSION: Subsegmental atelectasis versus airspace disease, left lower hemithorax. Electronically signed by: Alejandro Miguel MD 12/02/2024 01:24 PM [facility]
--- NOTE | ~2024-12-02 | XR_ITS ---
EXAMINATION: XR CHEST CLINICAL INFORMATION: s/p bronch COMPARISON: Chest 12/15/2024 TECHNIQUE: Frontal view of the chest was obtained. FINDINGS: There is left lower lobe retrocardiac consolidation and/or pleural effusion. There is improvement in the left lower lobe consolidation. There appears to be some extension of consolidation in the left suprahilar region upper lobe, stable. The left lung volume has improved with midline mediastinum noted. The right lung is clear. The heart size and pulmonary vascularity is normal. Endotracheal tube tip is 2.7 cm above the cele. A right central venous catheter has been removed No gross bony abnormality seen. XR/XR chest 1V IMPRESSION: Left lower lobe and left suprahilar airspace consolidation with likely underlying pleural effusion. The left lower lobe consolidation has improved. The aeration of the entire left lung has improved with midline mediastinum. Endotracheal tube tip is 0.7 cm above the cele. Right central venous catheter has been removed. Electronically signed by: Cj Diaz MD 12/15/2024 11:06 AM [facility]
--- NOTE | ~2024-12-02 | XR_ITS ---
EXAMINATION: XR CHEST CLINICAL INFORMATION: s/p bronchoscopy COMPARISON: December 17, 2024 at 10:34 AM. TECHNIQUE: Frontal view of the chest was obtained. FINDINGS: Opacity mid to lower left hemithorax with minimal aerated left lung apex. Cardiomediastinal silhouette is shifted towards the left hemithorax likely secondary to atelectatic component. The endotracheal tube ends 3 cm above cele. Right lung is aerated. No gross pneumothorax. XR/XR chest 1V IMPRESSION: Atelectatic airspace disease left lung suggesting mucous plug versus intrinsic and or extrinsic compression of the left main pulmonary airway. Electronically signed by: Alejandro Miguel MD 12/17/2024 12:04 PM [facility]
--- NOTE | ~2024-12-02 | XR_ITS ---
CLINICAL HISTORY: check placement 1 view chest x-ray Comparison: CT/SR - CT ABDOMEN PELVIS W IV CON - 12/02/24 15:[address] - CT ANGIO CHEST PE PROTOCOL - 12/02/24 15:42 EST Findings: Right lung is clear and well expanded. Endotracheal tube terminates 2.8 cm above the cele. There is opacification of the left hemithorax with [id number] cardiomediastinal shift. No acute fracture. IMPRESSION: 1. Asymmetric opacification of the left hemithorax with [id number] cardiomediastinal shift suggesting volume loss or atelectasis of the left lung. 2. Endotracheal tube terminates 2.8 cm above the cele. This document has been electronically signed by: Freddy Dorado MD, PHD on 12/15/2024 04:44:14
--- NOTE | ~2024-12-02 | CT_ITS ---
CLINICAL HISTORY: tachy, recent surgery CT angiography chest with contrast. 3D Postprocessing. Comparison: CT/SR - CT ANGIO CHEST PE PROTOCOL - 12/02/24 15:[address]/[place]/SR - CT ANGIO CHEST PE PROTOCOL - 11/21/24 11:[address] - CT ANGIO CHEST PE PROTOCOL - 11/21/24 11:19 EST Findings: The heart size is normal. RV/LV ratio is normal. Unremarkable thoracic aorta and great vessels. No aneurysm. No acute pulmonary embolus. The visualized thyroid and mediastinum are unremarkable. Moderate left and mild right bibasilar dependent airspace opacity. Visualized portions of the upper abdomen demonstrate mild bilateral hydronephrosis, as well as a percutaneous gastrostomy catheter. The bones are intact. IMPRESSION: 1. No pulmonary embolus. 2. Onax-edxqkjb-xakd-right bibasilar pneumonia. 3. Mild bilateral hydronephrosis. This document has been electronically signed by: Yany Britt MD on 12/02/2024 16:49:46
--- NOTE | ~2024-12-02 | CT_ITS ---
CLINICAL HISTORY: fever, septic, G tube placed yest CT abdomen and pelvis with contrast Comparison: CT/SR - CT ABDOMEN PELVIS W IV CON - 11/19/24 19:[address] - CT ABDOMEN PELVIS W IV CON - 11/19/24 19:00 EST Findings: Moderate left and mild right dependent bibasilar airspace opacity. Gallbladder is within normal limits. Mild bilateral hydronephrosis and ureteral dilatation. Solid organs are otherwise within normal limits No bowel obstruction, pneumoperitoneum, or pneumatosis. P gastrostomy catheter is present. Small amount of ascites. Urinary bladder is moderately distended and thick-walled, and demonstrates a suprapubic Villatoro catheter. There are 2 calculi within the right posterior urinary bladder, measuring 5 mm and 2 mm there is moderate fat stranding and fluid surrounding the urinary bladder. Small amount of free pelvic fluid is present. Appendix is not seen. No acute fracture. IMPRESSION: 1. Bibasilar pneumonia. 2. Findings suggestive of cystitis, associated with urinary bladder dilatation. Correlation with urinalysis recommended. Secondary mild bilateral hydronephrosis is present. 3. Small amount of ascites. This document has been electronically signed by: Yany Britt MD on 12/02/2024 16:45:41
--- NOTE | ~2024-12-02 | XR_ITS ---
CLINICAL HISTORY: Persistent Hypoxia 1 view chest x-ray Comparison: 12/26/2024 Findings: Tracheostomy. Moderate left basilar airspace opacity. Heart size is normal. No acute fracture. IMPRESSION: Left basilar pneumonia. Continued plain film follow-up is recommended to ensure resolution, and to exclude underlying neoplasm. This document has been electronically signed by: Yany Britt MD on 12/26/2024 19:26:53
--- NOTE | ~2024-12-02 | XR_ITS ---
EXAMINATION: XR CHEST 1 VIEW HISTORY: hypoxia COMPARISON: Comparison is made with the prior examination dated 12/26/2024. FINDINGS: Two AP portable views of the chest performed at 8:20 AM are submitted. A tracheostomy tube is unchanged in position. There is opacification of the left lung base which may represent atelectasis, pneumonia, and/or pleural fluid. The right lung demonstrates subsegmental atelectasis at the base. There is no pneumothorax. The heart is normal in size. There is degenerative disc disease of the spine. XR/XR chest 1V IMPRESSION: Opacification of the left lung base may represent atelectasis, pneumonia, and/or pleural fluid. Electronically signed by: Kingsley Bertrand MD 12/30/2024 08:46 AM EDT
--- NOTE | ~2024-12-02 | XR_ITS ---
EXAMINATION: XR CHEST 1 VIEW HISTORY: Status post tracheostomy COMPARISON: Comparison is made with the prior examination dated 12/17/2024. FINDINGS: Two AP portable views of the chest performed at 3:17 PM are submitted. The previously noted endotracheal tube has been replaced with a tracheostomy tube. The tip is approximately 5.5 cm above. Again seen is opacification of the left lung base which may represent atelectasis, pneumonia, and/or pleural fluid. The right lung is clear. The heart is normal in size. The bones are intact. XR/XR chest 1V IMPRESSION: 1. Tracheostomy tube in place as described. 2. Persistent opacification of the left lung base which may represent atelectasis, pneumonia, and/or pleural fluid. Electronically signed by: Kingsley Bertrand MD 12/17/2024 03:49 PM JUANITO RP
--- NOTE | ~2024-12-02 | XR_ITS ---
CLINICAL HISTORY: ? aspiration increase secretions via trach 1 view chest x-ray Comparison: CR/SR - XR CHEST 1V - 12/17/24 15:17 EST CR/MA/SR - XR CHEST 1V - 12/17/24 11:36 EST Findings: Tracheostomy. Severe left basilar airspace opacity. Heart size is normal. No acute fracture. IMPRESSION: Left lower lobe pneumonia. Continued plain film follow-up is recommended to ensure resolution, and to exclude underlying neoplasm. This document has been electronically signed by: Yany Britt MD on 12/26/2024 16:08:52
--- NOTE | 2024-12-02 11:53 | MHC.CM.ED ---
Received notification from [facility] that patient will be returning to ER. [facility]NA nurse was at patient's home with mechanical designer. Patient has not received any pain meds or tube feeds. SPORTS CENTRE MANAGER did not arrive to help patient. VNA contacted patient's niece. Niece will help with patient's care but is not his SPORTS CENTRE MANAGER. Patient apparently lives with his mother, who has dementia and his father, who is in a wheelchair. [facility] feels patient would need more services in place before they can accept patient at home. Kasie Rivera RN aware.
--- NOTE | 2024-12-02 12:02 | ED_ITS ---
HPI - SOB/Dyspnea General Chief Complaint: Fever Stated Complaint: sob Time Seen by Provider: 12/02/24 12:02 Source: patient and EMS Mode of arrival: EMS Limitations: no limitations History of Present Illness ED Provider: MARIE JORDAN PA-C HPI Narrative: 39 year old male with pmhx significant for MS, neuromyelitis optica, paraplegia, neurogenic bladder with suprapubic catheter and frequent UTIs presents to the ED today via EMS from home for evaluation of fever, hypoxia and tachycardia which began this morning. Patient was evaluated in the ED yesterday after accidentally pulling out his PEG tube. ED provider was able to insert a new PEG tube. Position was confirmed via KUB with gastrografin. No extravasation noted. Patient was discharged home Related Data Home Medications ?Medication ?Instructions ?Recorded ?Confirmed clindamycin phosphate 1 % lotion 1 appl topical BID 09/10/24 12/02/24 clotrimazole-betamethasone 1 1 appl topical BID 10/11/24 12/02/24 %-0.05 % topical cream prednisone 20 mg tablet 20 mg PO DAILY 10/21/24 12/02/24 Previous Rx's ?Medication ?Instructions ?Recorded syringe disposable, irrigation 60 #2 ea 01/06/24 mL catheter 20 Fr (Villatoro Catheter) #2 ea 08/19/24 catheterization tray (Villatoro #2 ea 08/19/24 Catheter Tray) urinary bag (Bardia Urinary #2 ea 08/19/24 Drainage Bag) urinary bag (Urinary Leg Bag) #4 ea 08/19/24 acetaminophen 500 mg tablet 500 mg feeding tube Q6H PRN mild 11/29/24 pain #90 tabs ascorbic acid (vitamin C) 500 mg 500 mg feeding tube BID 90 days 11/29/24 tablet (Vitamin C) #180 tabs cholecalciferol (vitamin D3) 50 50 mcg feeding tube DAILY #90 caps 11/29/24 mcg (2,000 unit) capsule (Vitamin D3) cyclobenzaprine 10 mg tablet 10 mg feeding tube TID #90 tabs 11/29/24 sertraline 50 mg tablet 50 mg feeding tube DAILY #90 tabs 11/29/24 scopolamine base 1 mg over 3 days 1.5 mg EAR-BEHIND Q72H #10 ea 11/30/24 transdermal patch (Transderm-Scop) sennosides 8.6 mg tablet (Senna 17.2 mg (2 x 8.6 mg) G-tube 11/30/24 Lax) BEDTIME #30 tabs Allergies Allergy/AdvReac Type Severity Reaction Status Date / Time doxycycline Allergy Rash Verified 12/02/24 12:13 Review of Systems 2 Review of Systems: Constitutional: No fever, chills, fatigue, night sweats, weight changes ENT/Mouth: No ear pain, hearing loss, nasal congestion, sinus pain, rhinorrhea, sore throat Eyes: No eye pain, swelling, redness, vision changes, discharge Cardio: No chest pain, palpitations, BAZAN, orthopnea, peripheral edema Pulm: No cough, sputum, wheezing, dyspnea, hemoptysis, +SOB GI: No nausea, vomiting, hematemesis, abdominal pain, diarrhea, constipation, hematochezia, melena : No irregular bleeding, dysuria, frequency, urgency, hesitancy, hematuria, flank pain, urinary flow changes, urinary incontinence or retention MSK: No back pain, neck pain, joint pain, myalgias Skin: No lesions, rashes Neuro: No weakness, numbness, paresthesias, LOC, dizziness, headache Psych: No anxiety/panic, depression, SI/HI, AH/VH All other systems reviewed and are negative. [facility] Past Medical History Attestation statement: The following information was validated with the patient. 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 Microcytic anemia Multiple sclerosis Headache Surgical History H/O hernia repair Family History Family History Other No family history of coronary artery disease Social History Social History Household Members: Family Household Members Other:: parents Housing: Apartment 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 have visiting nurse or other home services: Yes Unable to assess alcohol history related to: Unknown Alcohol intake: never Patient Tobacco Use Status: Former Tobacco user Tobacco use type: Cigarette Cigarettes Per Day: 0.25 Substance Use Type: Marijuana Advance Directives Date on File: 12/01/24 service: No Current occupational status: disabled Physical Exam 2 Vital Signs: Vital Signs: Last Vital Signs Temp 98.2 F 12/03/24 17:30 Pulse 106 H 12/03/24 17:30 Resp 18 12/03/24 17:30 BP 119/77 12/03/24 17:30 Pulse Ox 98 12/03/24 17:30 O2 Del Method Room Air 12/03/24 17:30 O2 Flow Rate 4 12/02/24 12:12 Oxygen Flow Rate 6 12/02/24 12:11 BMI result Body Mass Index 25.2 tachycardic, tachypneic, febrile General: chronically ill appering, alert, awake, Skin: pale, dry Head: Normocephalic, atraumatic. EENT: Hearing is intact b/l. Conjunctiva clear. PERRLA. EOM intact. dry mucous membranes.? Cardiac: Chest wall symmetric. tachycardic, regular rhythm. no JVD. Lungs: Normal respiratory effort without accessory muscle use. CTA bilaterally. No rales, rhonchi, or wheezes.? Abdomen: soft, nontender. suprapubic catheter to suprapubic region w/ dark urine in bag. g tube placed in epigastrum. Back: pressure dressing over sacrum Ext: LE atrophy Neuro: AOx3. Normal speech. bed bound. global weakness. Psych: Appropriate mood and affect. Responds appropriately to questions. Course Course Course Narrative: 1225 -- on arrival, patient tachycardic, tachypneic, and febrile to 103. concern for infection/ sepsis. IVF ordered. broad spectrum IV cefepime and vanc ordered. lactic/blood cultures ordered. 1345 -- CBC with leukocytosis to 38.6 with left shift. h&h stable. chemistry without acute electrolyte abnormality. BUN elevated to 29 with normal creatinine. random glucose 163. lactic 1.9 bun 14 - no concern for congestive HF. troponin elevated to 12.3. cxr showing linear opacity to left lower hemithorax (atelectasis v airspace disease). ekg showing sinus tachycardia with a rate of 166 bpm, no acute ischemic changes or st elevations. > given recent surgery 1 week ago, continued tachycardia and hypoxia, will obtain CTA chest to r/o PE. > will also obtain CT a/p to assess for infectious intra abdominal pathology. 1439 -- patient has 20 gauge in left wrist. needs more proximal line for imaging. RN attempted line x4 without success. baldomero at bedside attempted US guided line w/o success. my attending dr. bartholomew at bedside who will attempt central line placement. 1536 -- central line placed. see procedure note. cxr ordered for confirmation. 1558 -- cxr shows appropriate central line placement w/o gross pneumothorax 1620 -- on my review of CT A/P, bladder appears quite distended. i ordered bladder scan which shows >860 cc urine within bladder. dr. larson at bedside. suprpubic catheter appears to be blocked, initially draining dark colored urine on arrival. catheter exchanged w/ 16 Fr. now patent, draining dark yellow urine. patient reporting relief. imaging results pending. 174 -- CTA chest without pulmonary emboli. There is left greater than right bibasilar pneumonia. CT abdomen/pelvis showing urinary bladder moderately distended and thick walled with 2 calculi in the right posterior urinary bladder, moderate fat stranding and fluid surrounding urinary bladder with mild bilateral hydronephrosis. findings likey seondary to blocked suprapubic catheter that has now been fixed. his urine grossly infected. culture pending. > I reached out to embroidery finisher Dr. gaston regarding continued sinus tachycardia. likely secondary to infection. he is recommending IVF and treatment of infection. no acute cardiac intervention warranted at this time. > discussed case with hospitalist dr. Alatorre. patient to be admitted for urosepsis. Medications Administered Generic Name Dose Route Start Last Admin Trade Name Freq PRN Reason Stop Dose Admin Acetaminophen 650 mg 12/02/24 20:12/02/24 21:25 Acetaminophen 325 Mg Tablet G-TUBE 650 mg Q6H PRN Administration Pain, Mild 1-3,fever,headache Ascorbic Acid 500 mg 12/02/24 21:00 12/03/24 08:14 Ascorbic Acid 500 Mg Tablet G-TUBE 500 mg BID LALO Administration Cyclobenzaprine HCl 10 mg 12/02/24 21:00 12/03/24 15:21 Cyclobenzaprine Hcl 10 Mg Tablet G-TUBE 10 mg TID LALO Administration Enoxaparin Sodium 40 mg 12/02/24 20:00 12/02/24 20:41 Enoxaparin Sodium 40 Mg/0.4 Ml Syringe SUBCUT 40 mg Q24H LALO Administration Cefepime HCl 2 gm in 50 mls @ 100 mls/hr 12/02/24 20:30 12/03/24 12:30 Maxipime IV Infused Q8H LALO Infusion Vancomycin HCl 1,250 mg/ 250 mls @ 166.667 mls/hr 12/03/24 12:00 12/03/24 13:57 Sodium Chloride IV Infused Q8H LALO Infusion Immune Globulin 20 gm in 200 mls @ 38 mls/hr 12/03/24 17:00 12/03/24 18:04 Gammagard 10% IV 12/03/24 22:15 38 mls/hr ONCE ONE Administration As Directed Lactated Ringer's 1,000 mls @ 100 mls/hr 12/03/24 15:00 12/03/24 15:23 Lr IVCONT 12/04/24 00:59 100 mls/hr .Q10H LALO Administration Morphine Sulfate 4 mg 12/03/24 06:18 12/03/24 11:30 Morphine Sulfate 4 Mg/Ml Cartridge IVPUSH 4 mg Q4H PRN Administration Pain, Severe (Pain Scale 7-10) Protocol Prednisone 20 mg 12/03/24 09:00 12/03/24 08:14 Prednisone 20 Mg Tablet PO 20 mg DAILY LALO Administration Scopolamine 1.5 mg 12/03/24 09:00 12/03/24 08:14 Scopolamine 1.5 Mg Patch.Td.3 EAR-BEHIND 1.5 mg Q72H LALO Administration Senna 17.2 mg 12/02/24 21:00 12/02/24 21:24 Sennosides 8.6 Mg Tablet G-TUBE 17.2 mg BEDTIME LALO Administration Sertraline HCl 50 mg 12/03/24 09:00 12/03/24 08:14 Sertraline Hcl 50 Mg Tablet G-TUBE 50 mg DAILY LALO Administration Sodium Chloride 3 ml 12/03/24 00:00 12/03/24 15:28 0.9 % Sodium Chloride Flush 3 Ml Syringe IVFLUSH Not Given QSHIFT LALO Vitamin D 50 mcg 12/03/24 09:00 12/03/24 08:13 Cholecalciferol (Vitamin D3) 25 Mcg Tablet G-TUBE 50 mcg DAILY LALO Administration Discontinued Medications Generic Name Dose Route Start Last Admin Trade Name Elijah PRN Reason Stop Dose Admin Acetaminophen 1,000 mg in 100 mls @ 400 mls/hr 12/02/24 12:16 12/02/24 12:50 Ofirmev IV 12/02/24 12:30 Infused ONCE ONE Infusion Cefepime HCl 2 gm in 50 mls @ 100 mls/hr 12/02/24 12:22 12/02/24 13:20 Maxipime IV 12/02/24 12:51 Infused ONCE ONE Infusion Vancomycin HCl 2,000 mg in 500 mls @ 250 mls/hr 12/02/24 12:22 12/02/24 15:52 Vancomycin/Ns IV 12/02/24 14:21 Infused ONCE ONE Infusion Sodium Chloride 1,000 mls @ 999 mls/hr 12/02/24 13:00 12/02/24 15:49 Ns IV 12/02/24 14:00 Infused .Q1H1M ALLO Infusion Sodium Chloride 1,000 mls @ 999 mls/hr 12/02/24 17:30 12/02/24 20:00 Ns IV 12/02/24 18:30 Infused .Q1H1M LALO Infusion Vancomycin HCl 750 mg/ Sodium 265 mls @ 265 mls/hr 12/02/24 21:00 12/03/24 06:19 Chloride IV Infused Q8H LALO Infusion Immune Globulin 10 gm in 100 mls @ 38 mls/hr 12/03/24 14:00 12/03/24 17:23 Gammagard 10% IV 12/03/24 16:37 Infused ONCE ONE Infusion As Directed Iohexol 85 ml 12/02/24 16:13 12/02/24 16:13 Iohexol 350 Mg/Ml 100 Ml Infus..Btl IV 12/02/24 16:14 85 ml ONCE ONE Administration Morphine Sulfate 4 mg 12/03/24 06:17 12/03/24 06:20 Morphine Sulfate 4 Mg/Ml Cartridge IVPUSH 12/03/24 06:18 4 mg ONCE ONE Administration Protocol Medical Decision Making Medical Decision Making MDM Narrative: 39 year old male with pmhx significant for MS, neuromyelitis optica, paraplegia, neurogenic bladder with suprapubic catheter and frequent UTIs presents to the ED today via EMS from home for evaluation of fever, hypoxia and tachycardia which began this morning. tachycardic to 176, tachypneic to 27, febrile to 103.3F, hypoxic satting 97% on 4L NC. chronically ill appaering, diaphoretic. Differential diagnosis includes anemia, electrolyte abnormality, dehydration, UTI, urosepsis, pneumonia, pulmonary embolism, ACS, arrhythmia Plan for labs, ekg, imaging, IVF, abx, re-evaluation. Differential Diagnosis Differential Diagnoses: The differential diagnosis associated with the presentation includes as above. Admission/Observation Consideration of admission/observation: Escalation of care including admission/observation considered Patient to be admitted to medicine for urosepsis Consult Healthcare Provider Management of the patient was discussed with: Hospitalist Dr. Gaston - cardiology Lab Data MDM Lab Attestation statement: I reviewed the patient's lab results. as above. 12/03/24 04:15 12/03/24 04:15 Labs: Lab Results 12/02/24 12/02/24 12/02/24 Range/Units 12:50 12:51 12:52 WBC 38.6 H* (4.8-10.8) X10*3/uL RBC 6.11 H D (4.60-5.80) X10*6/uL Hgb 14.9 D (14.0-18.0) g/dl Hct 45.0 D (42.0-52.0) % MCV 73.6 L (80.0-98.0) fL MCH 24.4 L (27.0-33.0) pg MCHC 33.1 (31.0-36.0) g/dl RDW 19.9 H (11.0-16.0) % Plt Count 392 D (160-400) X10*3/uL MPV 12.2 (9.4-12.4) fL Immature Gran % (Auto) Cancelled Neut % (Auto) Cancelled Lymph % (Auto) Cancelled Elk % (Auto) Cancelled Eos % (Auto) Cancelled Baso % (Auto) Cancelled Lymph # (Auto) Cancelled Elk # (Auto) Cancelled Eos # (Auto) Cancelled Baso # (Auto) Cancelled Abs Immat Gran (auto) Cancelled Absolute Neuts (auto) Cancelled Absolute Nucleated RBC 0.000 (0.0-0.012) X10*3/uL Nucleated RBC % (auto) 0.0 (0.0-0.2) /100WBC Neutrophils % (Manual) 91 H (45-73) % Band Neutrophils % 0 L (3-5) % Monocytes % (Manual) 8 (2-11) % Basophils % (Manual) 1 (0-2) % Abs Neuts (Manual) 35.1 H (2.0-8.3) X10*3/uL Monocytes # (Manual) 3.1 H (0.1-1.2) X10*3/uL Basophils # (Manual) 0.4 H (0.0-0.2) X10*3/uL Toxic Vacuolation PRESENT Platelet Estimate NORMAL (NORMAL) Large Platelets PRESENT Plt Morphology Comment NOTE RBC Morphology NORMAL Microcytosis 1+ (5-14) /OIF Smear Path Review SEE NOTE VBG pH (7.32-7.43) VBG pCO2 mmHg VBG pO2 mmHg VBG HCO3 (22-26) mmol/L VBG O2 Saturation % VBG Base Excess mmol/L Sodium 141 (135-145) mmol/L Potassium 4.0 D (3.3-5.1) mmol/L Chloride 104 (96-108) mmol/L Carbon Dioxide 21 L (22-29) mmol/L Anion Gap 20 (12-20) BUN 29 H (9-16) mg/dL Creatinine 1.03 (0.5-1.4) mg/dL Estim Creat Clear Calc 95.3 Estimated GFR > 60 Random Glucose 163 H (60-115) mg/dL Lactic Acid 1.9 (0.5-2.0) mmol/L Calcium 9.3 (8.4-10.2) mg/dL Magnesium 2.0 (1.6-2.6) mg/dL Total Bilirubin 0.7 (0.0-1.0) mg/dL AST 17 (5-37) U/L ALT 39 (0-40) U/L Alkaline Phosphatase 74 (39-117) U/L Troponin I High Sens 12.3 D (<3.5-35.0) ng/L B-Natriuretic Peptide 14 (<100) pg/mL Total Protein 7.4 (6.5-8.0) g/dL Albumin 3.7 (3.5-5.0) g/dL Lipase 9 (8-78) U/L Urine Color Urine Appearance Urine pH (5.0-9.0) Ur Specific Hewitt (1.005-1.025) Urine Protein (Neg-Trace) mg/dL Urine Glucose (UA) (Negative) mg/dL Urine Ketones (Negative) mg/dL Urine Blood (Negative) Urine Nitrite (Negative) Ur Leukocyte Esterase (Negative) Urine RBC (0-2) /HPF Urine WBC (0-5) /HPF Ur Squamous Epith Cells (0-2) /HPF Urine Bacteria (None Seen) Hyaline Casts (0-2) /LPF Influenza Type A (PCR) NEGATIVE (Negative) Influenza Type B (PCR) NEGATIVE (Negative) RSV RNA Qual (PCR) NEGATIVE (Negative) SARS-CoV-2 RNA (RT-PCR) NEGATIVE (Negative) 12/02/24 12/02/24 Range/Units 12:58 17:23 WBC (4.8-10.8) X10*3/uL RBC (4.60-5.80) X10*6/uL Hgb (14.0-18.0) g/dl Hct (42.0-52.0) % MCV (80.0-98.0) fL MCH (27.0-33.0) pg MCHC (31.0-36.0) g/dl RDW (11.0-16.0) % Plt Count (160-400) X10*3/uL MPV (9.4-12.4) fL Immature Gran % (Auto) Neut % (Auto) Lymph % (Auto) Elk % (Auto) Eos % (Auto) Baso % (Auto) Lymph # (Auto) Elk # (Auto) Eos # (Auto) Baso # (Auto) Abs Immat Gran (auto) Absolute Neuts (auto) Absolute Nucleated RBC (0.0-0.012) X10*3/uL Nucleated RBC % (auto) (0.0-0.2) /100WBC Neutrophils % (Manual) (45-73) % Band Neutrophils % (3-5) % Monocytes % (Manual) (2-11) % Basophils % (Manual) (0-2) % Abs Neuts (Manual) (2.0-8.3) X10*3/uL Monocytes # (Manual) (0.1-1.2) X10*3/uL Basophils # (Manual) (0.0-0.2) X10*3/uL Toxic Vacuolation Platelet Estimate (NORMAL) Large Platelets Plt Morphology Comment RBC Morphology Microcytosis /OIF Smear Path Review VBG pH 7.55 H (7.32-7.43) VBG pCO2 27 mmHg VBG pO2 106 mmHg VBG HCO3 24 (22-26) mmol/L VBG O2 Saturation 99.0 % VBG Base Excess 3.5 mmol/L Sodium (135-145) mmol/L Potassium (3.3-5.1) mmol/L Chloride (96-108) mmol/L Carbon Dioxide (22-29) mmol/L Anion Gap (12-20) BUN (9-16) mg/dL Creatinine (0.5-1.4) mg/dL Estim Creat Clear Calc Estimated GFR Random Glucose (60-115) mg/dL Lactic Acid (0.5-2.0) mmol/L Calcium (8.4-10.2) mg/dL Magnesium (1.6-2.6) mg/dL Total Bilirubin (0.0-1.0) mg/dL AST (5-37) U/L ALT (0-40) U/L Alkaline Phosphatase (39-117) U/L Troponin I High Sens (<3.5-35.0) ng/L B-Natriuretic Peptide (<100) pg/mL Total Protein (6.5-8.0) g/dL Albumin (3.5-5.0) g/dL Lipase (8-78) U/L Urine Color Yellow Urine Appearance Turbid Urine pH 7.0 (5.0-9.0) Ur Specific Hewitt 1.010 (1.005-1.025) Urine Protein 300 (3+) H (Neg-Trace) mg/dL Urine Glucose (UA) Negative (Negative) mg/dL Urine Ketones Negative (Negative) mg/dL Urine Blood Large (3+) H (Negative) Urine Nitrite Negative (Negative) Ur Leukocyte Esterase Moderate (2+) H (Negative) Urine RBC >20 H (0-2) /HPF Urine WBC >50 (0-5) /HPF Ur Squamous Epith Cells 0-2 (0-2) /HPF Urine Bacteria Trace (None Seen) Hyaline Casts 0-2 (0-2) /LPF Influenza Type A (PCR) (Negative) Influenza Type B (PCR) (Negative) RSV RNA Qual (PCR) (Negative) SARS-CoV-2 RNA (RT-PCR) (Negative) Independent Interpretation I performed an independent interpretation of an: EKG, Plain X-Ray and CT Scan Radiology Impression Discussion of test interpretation with radiology: I have reviewed the radiologist's reading. Radiologist Impression: Procedure(s): CT angio chest PE protocol Accession Number(s): [id number] cc: Anuj,Ebenezer ROGERS; Marie Jordan~ Report Number: [id number]: Total DLP = 492.92 mGy-cm CLINICAL HISTORY: tachy, recent surgery CT angiography chest with contrast. 3D Postprocessing. Comparison: CT/SR - CT ANGIO CHEST PE PROTOCOL - 12/02/24 15:[address]/AZ/SR - CT ANGIO CHEST PE PROTOCOL - 11/21/24 11:[address] - CT ANGIO CHEST PE PROTOCOL - 11/21/24 11:19 EST Findings: The heart size is normal. RV/LV ratio is normal. Unremarkable thoracic aorta and great vessels. No aneurysm. No acute pulmonary embolus. The visualized thyroid and mediastinum are unremarkable. Moderate left and mild right bibasilar dependent airspace opacity. Visualized portions of the upper abdomen demonstrate mild bilateral hydronephrosis, as well as a percutaneous gastrostomy catheter. The bones are intact. IMPRESSION: 1. No pulmonary embolus. 2. Diks-mdryuxi-ccff-right bibasilar pneumonia. 3. Mild bilateral hydronephrosis. This document has been electronically signed by: Yany Britt MD on 12/02/2024 16:49:46 Procedure(s): CT abdomen pelvis w IV con Accession Number(s): [id number] cc: Name,Ebenezer ROGERS; Marie Jordan~ Report Number: [id number]: Total DLP = 801.80 mGy-cm CLINICAL HISTORY: fever, septic, G tube placed yest CT abdomen and pelvis with contrast Comparison: CT/SR - CT ABDOMEN PELVIS W IV CON - 11/19/24 19:[address] - CT ABDOMEN PELVIS W IV CON - 11/19/24 19:00 EST Findings: Moderate left and mild right dependent bibasilar airspace opacity. Gallbladder is within normal limits. Mild bilateral hydronephrosis and ureteral dilatation. Solid organs are otherwise within normal limits No bowel obstruction, pneumoperitoneum, or pneumatosis. P gastrostomy catheter is present. Small amount of ascites. Urinary bladder is moderately distended and thick-walled, and demonstrates a suprapubic Villatoro catheter. There are 2 calculi within the right posterior urinary bladder, measuring 5 mm and 2 mm there is moderate fat stranding and fluid surrounding the urinary bladder. Small amount of free pelvic fluid is present. Appendix is not seen. No acute fracture. IMPRESSION: 1. Bibasilar pneumonia. 2. Findings suggestive of cystitis, associated with urinary bladder dilatation. Correlation with urinalysis recommended. Secondary mild bilateral hydronephrosis is present. 3. Small amount of ascites. This document has been electronically signed by: Yany Britt MD on 12/02/2024 16:45:41 Procedure(s): XR chest 1V Accession Number(s): [id number] cc: Natalia Bartholomew MD; Name,Ebenezer ROGERS~ EXAMINATION: XR CHEST CLINICAL INFORMATION: Central line placement COMPARISON: December 02, 2024 and 1:10 PM. TECHNIQUE: Frontal view of the chest was obtained. FINDINGS: Right-sided central venous line inserted via right internal jugular vein ends at the SVC. No gross pneumothorax. Stable appearance of the lungs and cardiomediastinal silhouette. Gas filled mildly prominent hepatic and splenic colonic flexure is. XR/XR chest 1V IMPRESSION: Right-sided central venous line placed ending SVC without gross pneumothorax. Electronically signed by: Alejandro Miguel MD 12/02/2024 03:46 PM [facility] Procedure(s): XR chest 1V Accession Number(s): [id number] cc: Ebenezer Leslie MD; Marie Jordan~ EXAMINATION: XR CHEST CLINICAL INFORMATION: sob recent pneumonia COMPARISON: November 18, 2024. TECHNIQUE: Frontal view of the chest was obtained. FINDINGS: No hyperinflation. Linear opacity left lower hemithorax. No pleural effusion. No pneumothorax. Cardiomediastinal silhouette size is normal. Mild S-shaped curvature of the thoracic spine. Abundant stool within the splenic and hepatic colonic flexure's. XR/XR chest 1V IMPRESSION: Subsegmental atelectasis versus airspace disease, left lower hemithorax. Electronically signed by: Alejandro Miguel MD 12/02/2024 01:24 PM EST Independent Historian Clinical information obtained from an independent historian. History obtained from or confirmed by: EMS External Record Review External record reviewed: Inpatient record, Office record, Outpatient record, Prior outpatient labs, Prior outpatient radiology, Primary care record and Outside ED record Prescription Management I considered prescription management with: Pain Medication and Antibiotic Chronic Conditions Patient?s care impacted by: Other (chronic suprapubic catheter, recurrent UTIs) Social Determinants Patient?s care significantly limited by Social Determinants of Health including: Other Social Determinant of Health Procedures Catheter Insertion (Urinary) Date of insertion: 12/02/24 Time of insertion: 16:20 Reason for placing indwelling catheter: Prolonged immobilization Patient has the following: history of catheter associated urinary tract infection Bladder scan/ultrasound used before catheterization: Yes Estimated amount of urine (mLs): 860 Antiseptic solution prep: Povidone-Iodine Topical anesthesia used: No Catheter type/location: Suprapubic Size (Setswana): 16 Catheter balloon size (mL): 10 Catheter balloon amount: 10 Results: successfully catheterized-immediate flow Procedure performed: without complications Central Line Placement Right IJ: Time Out Performed: Yes Patient Placed on Monitor/Pulse Ox: Yes MD Prep: mask, gown, gloves and other Central Line Prep: Povidone-Iodine 1% Ultrasound Used for Placement: Yes Central Line Lumen Inserted: triple Post Procedure: sutured in place Post Procedure X-Ray: tip of catheter in good position and no pneumothorax seen Patient Tolerated Procedure: well Complications: none Critical Care Time Critical Care Time Critical Care Time: Yes Total Critical Care Time: 60 Attestation: Critical care time in the amount of 60 minutes has been provided to the patient in terms of direct patient care, frequent reevaluation, consultation with embroidery finisher and hospitalist, review and interpretation of medical data and results, and management of potentially life-threatening conditions. This is all outside of any medical procedures. Discharge Plan Discharge Clinical Impression: Acute UTI, Sepsis, Tachycardia Patient Disposition: Admitted As Inpatient Interventions: Admission Worksheet (ED) Last Done: 12/03/24 15:52 Discharge Date/Time: 12/03/24 17:15
--- NOTE | 2024-12-02 12:11 | ECG_ITS ---
Test Reason : ED PHYSICIAN Blood Pressure : */* mmHG Vent. Rate : 166 BPM Atrial Rate : 166 BPM P-R Int : 128 ms QRS Dur : 66 ms QT Int : 286 ms P-R-T Axes : 47 -10 77 degrees QTcB Int : 475 ms Sinus tachycardia Otherwise normal ECG When compared with ECG of 18-Nov-2024 19:24, No significant changes seen Referred By: Generic ED Physician Electronically Signed By: TOAN FAM
[2024-12-02] MEDS: Acetaminophen 1,000 MG/100 ML PIGGYBACK 400 MG IV (12:35)
[2024-12-02] MEDS: vancomycin/NS 2,000 MG/500 ML PLAST..BAG 250 MG IV (12:40)
[2024-12-02] MEDS: cefEPime HCl/D5W 2 GM/50 ML PIGGYBACK IV ×2 (12:50→20:41)
[2024-12-02] MEDS: 0.9 % Sodium Chloride 1,000 ML 999 ML IV ×2 (13:00→19:20)
[2024-12-02 13:04] LABS: Venous Blood Gas Refer to POC result
[2024-12-02 13:04] LABS: VBG Base Excess 3.5 mmol/L; VBG HCO3 24 mmol/L (22-26); VBG pCO2 27 mmHg; VBG pH 7.55 (7.32-7.43); VBG pO2 106 mmHg
[2024-12-02 13:16] LABS: Hemoglobin 14.9 g/dl (14.0-18.0); Mean Corpuscular HGB Conc 33.1 g/dl (31.0-36.0); Mean Corpuscular Hemoglobin 24.4 pg (27.0-33.0); Mean Corpuscular Volume 73.6 fL (80.0-98.0); PLT CLUMP 1; Red Blood Count 6.11 X10*6/uL (4.60-5.80); Red Cell Distribution Width 19.9 % (11.0-16.0)
[2024-12-02 13:17] LABS: Lactic Acid 1.9 mmol/L (0.5-2.0)
[2024-12-02 13:18] LABS: Alanine Aminotransferase 39 U/L (0-40); Albumin Level 3.7 g/dL (3.5-5.0); Alkaline Phosphatase 74 U/L (39-117); Anion Gap 20 (12-20); Aspartate Amino Transferase 17 U/L (5-37); Bilirubin Total 0.7 mg/dL (0.0-1.0); Blood Urea Nitrogen 29 mg/dL (9-16); Calcium 9.3 mg/dL (8.4-10.2); Carbon Dioxide 21 mmol/L (22-29); Chloride 104 mmol/L (96-108); Creatinine Clr Calc Pharmacy 95.3; Estimated Glomerular Filt Rate > 60; Glucose Random 163 mg/dL (60-115); Lipase 9 U/L (8-78); Sodium 141 mmol/L (135-145); Total Protein 7.4 g/dL (6.5-8.0); WBC ABN SCTR FOR CBC 1
--- OUTSIDE RECORDS SUMMARY | 2024-12-02 13:19 | XMS_ITS | Encounter Summary ---
Author Organization [employer] Address [address] [place] [address] Care Team Providers Care Hand Marker Name Role Phone Name, Ebenezer ROGERS Primary Care Provider [phone] Reason for Visit * Reason Onset Date Comments ER Follow-up 10/08/2023 Encounter Details Date Type Department Care Team ([facility] st Contact Info) Description 10/08/2023 Telephone [facility] [address] [place] [address] Name, MD Ebenezer [address] [place] [address] ER Follow-up Social History Tobacco Use Types [...] 10/09/2023 2:31 PM EST Pt evaluated at [facility] ED 10/06/23 Dx: Acute on Chronic Urinary retention and acute UTI. Pt dischargedwith rx for cefuroxime axetil 250mg bid and recommended to follow up with urology. ED note sent to medical records. * Telephone Encounter - Claudia Martini - 10/09/2023 2:23 PM EST Tc from pt calling in regards to ER follow up appointment. Please contact pt at [phone] (Serbian) * Telephone Encounter - Mary Billingsley - 10/08/2023 1:08 PM EST Patient calling to report ED visit on : Date:10/07/2023 Hospital: [facility] Seen for: Abdominal Pain Patient advised will forward to team nurse for follow up. documented in this encounter Plan of Treatment Not on file documented as of this encounter Visit Diagnoses Not on filedocumented in this encounter Additional Health Concerns Assessment Noted Time PHQ-9 Depression Total Score: 10 023 8:48 AM EST documented as of this encounter Care Teams Hand Marker Relationship Specialty Start Date End Date Name, MD [address] [place] [address] PCP - General Family Medicine 06/07/22 [employer] 01/06/23 documented as of this encounter
--- OUTSIDE RECORDS SUMMARY | 2024-12-02 13:19 | XMS_ITS | Clinical Summary ---
Author Organization [employer] Address [address] [facility] [address] [place] [address] Care Team Providers Care [facility]regational [facility] Pastor Name Role Phone Name, Ebenezer ROGERS Primary Care Provider [phone] Allergies No known active allergies Medications * [...] at this time. Information to connect with [facility] provided. He agreed to reach out [...] 12/25/2016 01/29/2023 Obesity (BMI 30-39.9) 12/25/20162022 Encounters Date Type Department Care Team Description 12/02/2024 Orders Only GENERIC EXTERNAL DATA DEPARTMENT Provider, Generic External Data 11/17/2024 Telephone [facility] [place] [address] Ebenezer Leslie MD No Show 11/03/[address] [address] Ebenezer Leslie MD verbal order request 10/21/2024 Orders Only GENERIC EXTERNAL DATA DEPARTMENT Provider, Generic External Data 10/20/[address] [address] Ebenezer Leslie MD Nurse Triage; Durable Medical Equipment ([employer]) 10/18/[address] [address] Ebenezer Leslie MD FYI 10/15/[address] [address] Ebenezer Leslie MD 10/14/[address] [address] Carlos Case MA Miles recalls 10/08/[address] [address] Ebenezer Leslie MD Durable Medical Equipment 10/08/[address] [address] Ebenezer Leslie MD Request For Order(s) 10/07/[address] [address] Ebenezer Leslie MD ED Follow up 10/03/2024 Orders Only GENERIC EXTERNAL DATA DEPARTMENT Provider, Generic External Data 09/30/[address] [address] Kevin Calle MA DME from [facility] 09/29/[address] [address] Ebenezer Leslie MD 09/18/2024 Orders Only GENERIC EXTERNAL DATA DEPARTMENT Provider, Generic External Data 09/17/[address] [address] Ebenezer Leslie MD Request For Order(s) 09/16/[address] [address] Carlos Case MA Dme - lift reclincer 09/16/[address] [address] Ebenezer Leslie MD 09/13/[address] [address] Kevin Calle MA DME from [facility] 09/07/2024 Orders Only GENERIC EXTERNAL DATA DEPARTMENT Provider, Generic External Data 09/02/[address] [address] Ebenezer Leslie MD Durable Medical Equipment 09/02/[address] [address] Carlos Case MA Durable Medical Equipment 09/02/[address] [address] Merry Baird, MAUREEN from Last 3 Months Immunizations Name Administration [...] 08/04/2024 10:13 AM EDT Plan of Treatment Health Maintenance [...] Procedure Name Priority Date/Time Associated Diagnosis Comments VENOUS BLOOD GAS Routine 12/02/2024 12:5 8 PM EST FL GUIDED LUMBAR PUNCTURE LP Routine 11/25/2024 1:00 PM EST MR BRAIN W AND WO CONTRAST Routine 11/23/2024 6:54 PM EST MR CERVICAL SPINE W AND WO CONTRAST Routine 11/23/2024 6:54 PM EST MR THORACIC SPINE W AND WO CONTRAST Routine 11/23/2024 6:42 PM EST CTA CHEST PE PROTOCAL Routine 11/21/2024 12:[address] HEAD WO CONTRAST Routine 11/19/2024 8 :[address] CHEST WO CONTRAST Routine 11/19/2024 8:[address] ABDOMEN PELVIS W CONTRAST Routine 11/19/2024 7:59 PM EST FL BARIUM SWALLOW MODIFIED Routine 11/19/2024 1:00 PM EST XR CHEST 1 VIEW Routine 10/21/2024 4:00 [...] 09/01/2024 10:15 AM EST On prednisone therapy PROPHYLAXIS - ADULT Routine 09/30/2023 1 1:00 AM EST Periodontal disease Dental calculus BITEWINGS - 4 RADIOGRAPHIC IMAGES Routine 12/09/2022 1:00 PM EST PERIODIC ORAL EVALUATION - ESTABLISHED PATIENT Routine 12/09/2022 1:00 PM EST from Last 3 Months or Most Recently Relevant to Health Maintenance Results * (ABNORMAL) VENOUS BLOOD GAS (12/02/2024 12:58 PM EST) VBG pH 7.55(H) 7.32 - 7.43 [facility] Comment:METER #: [id number] additional_comment: Nabeel stanton VBG PCO2 27 mmHg [facility] Comment:METER #: [id number] additional_comment: Nabeel cheyennestar VBG PO2 106 mmHg [facility] Comment:METER #: [id number] additional_comment: Nabeel stanton VBG Base Excess 3.5 mmol/L [facility] Comment:METER #: [id number] additional_comment: Nabeel stanton VBG HCO3 24 22 - 26 mmol/L [facility] Comment:METER #: [id number] additional_comment: Cb delgadj O2 Sat, Saul 99.0 % [facility] Comment:METER #: [id number] additional_comment: Cb delgadj 12/02/2024 12:5 8 PM EST 12/02/2024 1:03 PM EST us Generic External Data Provider LAB BLOOD ORDERAB LES Final Result [facility] [address] [place] [address] [phone] * FL guided lumbar puncture LP (11/25/2024 1:00 PM EST) Anatomical Region Laterality Modality Abdomen Radiographic Miriam ging 11/25/2024 1:00 PM EST Narrative 11/25/2024 3:49 PM EST ? [facility] ?[address] ?[place] [address] ? Fluoroscopy Report ? Signed ? Patient: Justus Burr ?MR#: [id number] ?? [id number] ? : 1985 ?Acct:[id number] ? Age/Sex: 39 / M ?ADM Date: 11/18/24 ? Loc: [facility] ?482-1 ? Attending Dr: Yulissa Bustos MD ? Ordering Physician: Romelia Casas MD ?? Date of Service: 11/25/24 ?? Procedure(s): FL guided lumbar puncture LP ?? Accession Number(s): [id number] ? cc: Romelia Casas MD; Ebenezer Leslie MD ? EXAMINATION: ?? XR LUMBAR PUNCTURE ? CLINICAL INFORMATION: ?? unclear diagnois of quadreparesis, abnormal MRIs. ? COMPARISON: ?? No prior available. Correlation made with CT abdomen and pelvis ?? 11/19/2024. ? PROCEDURE: ?? Informed consent was obtained by the patient's proxy. An historic interpreter ?? was present for the procedure and to aid in communication. ?? The patient was placed prone on the fluoroscopy table. A suitable site ?? overlying the right L3-4 interlaminar space was marked, prepped and ?? draped in sterile fashion. Skin and subcutaneous tissues were ?? anesthetized with 1% lidocaine. Under direct fluoroscopic guidance, a ?? 20-gauge quincke spinal needle was advanced into the interlaminar ?? space, and clear CSF was noted at the needle hub. Approximately 6 mL of ?? clear CSF was obtained passively, and saved for laboratory analysis. ?? There were no immediate complications. The patient tolerated the ?? procedure well. ? FLUOROSCOPY TIME: ?? 13 seconds ? DOSE AREA PRODUCT: ?? 34.2 dGy-m2 ? FL/FL guided lumbar puncture LP ?? IMPRESSION: ?? 1. Uneventful fluoroscopic guided L4-5 lumbar puncture. 6 mL of clear ?? CSF obtained and sent for laboratory analysis. ? Electronically signed by: ??Dusty Mcgrath MD ??11/25/2024 03:46 PM EST RP ? Dictated By: ?Dusty Mcgrath MD ? Signed By: ?<Electronically signed by Dusty Mcgrath MD in OV> ?11/25/24 1546 ? DD/ 1300 ? TD/TT: 11/25/24 1500 ? Roll Mechanic: ? Procedure Note Kinsey Andersen - 11/25/2024 [place] [address] Fluoroscopy Report Signed Patient: Justus Burr#: [id number] : 1985Acct:[id number] Age/Sex: 39 / MADM Date: 11/18/24 Loc: [facility] 482-[address]: Yulissa Bustos MD Ordering Physician: Romelia Casas MD Date of Service: 11/25/24 Procedure(s): FL guided lumbar puncture LP Accession Number(s): [id number] cc: Romelia Casas MD; Name,Ebenezer ROGERS EXAMINATION: XR LUMBAR PUNCTURE CLINICAL INFORMATION: unclear diagnois of quadreparesis, abnormal MRIs. COMPARISON: No prior available. Correlation made with CT abdomen and pelvis 11/19/2024. PROCEDURE: Informed consent was obtained by the patient's proxy. An historic interpreter was present for the procedure and to aid in communication. The patient was placed prone on the fluoroscopy table. A suitable site overlying the right L3-4 interlaminar space was marked, prepped and draped in sterile fashion. Skin and subcutaneous tissues were anesthetized with 1% lidocaine. Under direct fluoroscopic guidance, a 20-gauge quincke spinal needle was advanced into the interlaminar space, and clear CSF was noted at the needle hub. Approximately 6 mL of clear CSF was obtained passively, and saved for laboratory analysis. There were no immediate complications. The patient tolerated the procedure well. FLUOROSCOPY TIME: 13 seconds DOSE AREA PRODUCT: 34.2 dGy-m2 FL/FL guided lumbar puncture LP IMPRESSION: 1. Uneventful fluoroscopic guided L4-5 lumbar puncture. 6 mL of clear CSF obtained and sent for laboratory analysis. Electronically signed by: Dusty Mcgrath MD 11/25/2024 03:46 PM EST Dictated By: Dusty Mcgrath MD Signed By: <Electronically signed by Dusty Mcgrath MD in OV> 11/25/24 1546 DD/ 1300 TD/TT: 11/25/24 1500 Roll Mechanic: [facility] External Provider IMG FLU OROSCOPY PROCEDURES Final Result * MR Cervical Spine w/ and w/o Contrast (11/23/2024 6:54 PM EST) Anatomical Region Laterality Modality Spine, C-spine Magnetic Resonan ce 11/23/2024 6:54 PM EST Narrative 11/23/2024 6:55 PM EST ? [facility] ?[address] ?[place] [address] ? Magnetic Resonance Report ? Signed with Addenda ? Patient: Justus Burr ?MR#: [id number] ?? [id number] ? : 1985 ?Acct:[id number] ? Age/Sex: 39 / M ?ADM Date: 11/18/ ? Loc: [facility] ?482-1 ? Attending Dr: Romelia Casas MD ? Ordering Physician: Romelia Casas MD ?? Date of Service: 11/23/24 ?? Procedure(s): MR cervical spine wo/w con ?? Accession Number(s): [id number] ? cc: Romelia Casas MD; Ebenezer Leslie MD ?ADDENDUM ?? This document has been electronically signed by: Jhon Hernandez MD on ?? 11/23/2024 18:54:05 ? ADDENDUM: ?? This report was discussed with Deanna Christy RN on Nov 23, 2024 ?? 18:55:00 EST. ? This document has been electronically signed by: Dana Steinberg on ?? 11/23/2024 18:55:12 ? Addendum Dictated By: ?Jhon Hernandez MD ? Addendum Signed By: ? <Electronically signed by Jhon Hernandez MD in OV> ? 11/23/24 1856 ?? Addendum Cosigned By: ? DD/ /06/1854 ? TD/TT: 11/23/2409/06/1855 ? CLINICAL HISTORY: paraplegia unknown dx , involuntary motion on images, best obtainable ? MR cervical spine with and without gadolinium ? Comparison: 01/21/2022 ? Findings: ? Normal vertebral body alignment. ?? No significant degenerative change. ?? No acute fractures or pathologic bone lesions. ?? There is severe spinal cord atrophy with diffuse abnormal T2 signal on the ?? STIR sequence. ?? No definite focal postcontrast enhancement however given the severity of ?? the atrophy evaluation is somewhat limited. ?? There is also atrophy involving the cerebellum. ? Impression: ? 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 central T2 signal prolongation. Evaluation is limited for focal lesions ?? given the profound atrophy. ?? There is also atrophy involving the posterior fossa. ?? Again findings are nonspecific but considerations could include severe ?? advanced MS, ALS, remote vascular injury or alternate progressive ?? demyelinating process. When compared to the 2021 study there has been ?? significant progression. ? This document has been electronically signed by: Jhon Hernandez MD on ?? 11/23/2024 18:54:05 ? Dictated By: ?Jhon Hernandez MD ? Signed By: ?<Electronically signed by Jhon Hernandez MD in OV> ? 11/23/241854 ? DD/ 53 ? TD/TT: 11/23/241853 ? Roll Mechanic: ? Procedure Note Kinsey Andersen - 11/23/[address] [address] Magnetic Resonance Report Signed with Radha Patient: Justus Burr#: [id number] : 1985Acct:[id number] Age/Sex: 39 / MADM Date: 11/18/24 Loc: [facility] 482-[address]: Romelia Casas MD Ordering Physician: Romelia Casas MD Date of Service: 11/23/24 Procedure(s): MR cervical spine wo/w con Accession Number(s): [id number] cc: Romelia Casas MD; Name,Ebenezer ROGERS ADDENDUM This document has been electronically signed by: Jhon Hernandez MD on 11/23/2024 18:54:05 ADDENDUM: This report was discussed with Deanna Christy RN on Nov 23, 2024 18:55:00 EST. This document has been electronically signed by: Dana Steinberg on 11/23/2024 18:55:12 Addendum Dictated By: Jhon Hernandez MD Addendum Signed By: <Electronically signed by MD Dominic in OV> 11/23/241855 Addendum Cosigned By: DD/ /06/1854 TD/TT: 11/23/2409/06/1855 CLINICAL HISTORY: paraplegia unknown dx , involuntary motion on images,best obtainable MR cervical spine with and without gadolinium Comparison: 01/21/2022 Findings: Normal vertebral body alignment. No significant degenerative change. No acute fractures or pathologic bone lesions. There is severe spinal cord atrophy with diffuse abnormal T2 signal on the STIR sequence. No definite focal postcontrast enhancement however given the severity of the atrophy evaluation is somewhat limited. There is also atrophy involving the cerebellum. 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 Evaluation is limited for focal lesions given the profound atrophy. There is also atrophy involving the posterior fossa. Again findings are nonspecific but considerations could include severe advanced MS, ALS, remote vascular injury or alternate progressive demyelinating process. When compared to the 2021 study there has been significant progression. This document has been electronically signed by: Jhon Hernandez MD on 11/23/2024 18:54:05 Dictated By: Jhon Hernandez MD Signed By: <Electronically signed by Jhon Hernandez MD in OV> 11/23/241854 DD/ 53 TD/TT: 11/23/241853 Roll Mechanic: [facility] External Provider IMG MRI PROCEDURES Edited Result - Final * Mr Brain w/ and w/o Contrast (11/23/2024 6:54 PM EST) Anatomical Region Laterality Modality Brain Magnetic Resonan ce 11/23/2024 6:54 PM EST Narrative 11/23/2024 6:55 PM EST ? [facility] ?[address] ?[place] [address] ? Magnetic Resonance Report ? Signed ? Patient: Kalina Barba,Justus ?MR#: [id number] ?? [id number] ? : 1985 ?Acct:[id number] ? Age/Sex: 39 / M ?ADM Date: 11/18/24 ? Loc: [facility] ?482-1 ? Attending Dr: Romelia Casas MD ? Ordering Physician: Romelia Casas MD ?? Date of Service: 11/23/24 ?? Procedure(s): MR head/brain wo/w con ?? Accession Number(s): [id number] ? cc: Romelia Casas MD; Name,Eebnezer ROGERS ? CLINICAL HISTORY: paraplegia unknown dx, ??involuntary motion on images, best obtainable ? MR Brain with and without gadolinium ? Comparison: 11/01/2021 ? Findings: ?? No restricted diffusion. ?? No intracranial mass or hemorrhage. ?? No midline shift. No hydrocephalus. ?? Vascular flow voids are intact. ?? Diffuse volume loss noted. ?? Volume loss is most pronounced within the posterior fossa. There is ?? confluent T2 signal prolongation involving the brainstem and cerebellar ?? white matter. ?? The orbits are unremarkable. ?? The sinuses and mastoid air cells are clear. ?? No focal bone lesion. ?? No abnormal postcontrast enhancement. ? IMPRESSION: ?? No abnormal postcontrast enhancement. 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 the comparison study. ?? Volume loss as detailed, also progressive. ? This document has been electronically signed by: Jhon Hernandez MD on ?? 11/23/2024 18:54:40 ? Dictated By: ?Jhon Hernandez MD ? Signed By: ?<Electronically signed by Jhon Hernandez MD in OV> ? 11/23/24 1855 ? DD/ 1854 ? TD/TT: 11/23/24 1854 ? Roll Mechanic: ? Procedure Note Nathaly, Kinsey - 11/23/2024 [place] [address] [place] [address] Magnetic Resonance Report Signed Patient: Justus Burr#: [id number] : 1985Acct:[id number] Age/Sex: 39 / MADM Date: 11/18/24 Loc: .[facility] 482-[address]: Romelia Casas MD Ordering Physician: Romelia Casas MD Date of Service: 11/23/24 Procedure(s): MR head/brain wo/w con Accession Number(s): [id number] cc: Romelia Casas MD; Name,Ebenezer ROGERS CLINICAL HISTORY: paraplegia unknown dx, involuntary motion on images,best obtainable MR Brain with and without gadolinium Comparison: 11/01/2021 Findings: No restricted diffusion. No intracranial mass or hemorrhage. No midline shift. No hydrocephalus. Vascular flow voids are intact. Diffuse volume loss noted. Volume loss is most pronounced within the posterior fossa. There is confluent T2 signal prolongation involving the brainstem and cerebellar white matter. The orbits are unremarkable. The sinuses and mastoid air cells are clear. No focal bone lesion. No abnormal postcontrast enhancement. IMPRESSION: No abnormal postcontrast enhancement. 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 Volume loss as detailed, also progressive. This document has been electronically signed by: Jhon Hernandez MD on 11/23/2024 18:54:40 Dictated By: Jhon Hernandez MD Signed By: <Electronically signed by Jhon Hernandez MD in OV> 11/23/241854 DD/ 53 TD/TT: 11/23/241853 Roll Mechanic: [facility] External Provider IMG MRI PROCEDURES Final Result * MR Thoracic Spine w/ and w/o Contrast (11/23/2024 6:42 PM EST) Anatomical Region Laterality Modality Spine, T-spine Magnetic Resonan ce 11/23/2024 6:42 PM EST Narrative 11/23/2024 6:45 PM EST ? [place] [facility] ?[address] ?[place] [address] ? Magnetic Resonance Report ? Signed with Addenda ? Patient: Kalina Barba,Justus ?MR#: [id number] ?? [id number] ? : 1985 ?Acct:[id number] ? Age/Sex: 39 / M ?ADM Date: 11/18/24 ? Loc: [facility] ?482-1 ? Attending Dr: Romelia Casas MD ? Ordering Physician: Romelia Casas MD ?? Date of Service: 11/23/24 ?? Procedure(s): MR thoracic spine wo/w con ?? Accession Number(s): [id number] ? cc: Romelia Casas MD; Name,Ebenezer ROGERS ?ADDENDUM ?? This document has been electronically signed by: Jhon Hernandez MD on ?? 11/23/2024 18:42:17 ? ADDENDUM: ?? This report was discussed with Deanna Christy RN on Nov 23, 2024 ?? 18:51:00 EST. ? This document has been electronically signed by: Dana Steinberg on ?? 11/23/2024 18:52:00 ? Addendum Dictated By: ?Jhon Hernandez MD ? Addendum Signed By: ? <Electronically signed by Jhon Hernandez MD in OV> ? 11/23/241852 ?? Addendum Cosigned By: ? DD/ /06/1842 ? TD/TT: 11/23/2409/06/1852 ? CLINICAL HISTORY: paraplegia unknown dx, involuntary motion on images, best obtainable ? MR thoracic spine with and without gadolinium ? Comparison: None ? Findings: ?? Normal alignment. ?? No acute fracture or pathologic bone lesion. ?? Hemangioma noted within T4. ?? The thoracic cord is extremely atrophic, diffusely with somewhat diffuse ?? white matter T2 signal prolongation. ?? The conus terminates at L1. ?? There is mild chronic height loss along the superior endplate of T7. No ?? signal abnormality. ?? Paraspinal musculature is unremarkable. ?? No central canal stenosis or neural foraminal narrowing. ? Impression: ? Severe diffuse spinal cord atrophy and faint diffuse T2 signal ?? prolongation. Findings are nonspecific but considerations would include ?? ALS, advanced MS, prior trauma with devascularization. Correlation with ?? patient history and any outside imaging would be recommended. ? This document has been electronically signed by: Jhon Hernandez MD on ?? 11/23/2024 18:42:17 ? Dictated By: ?Jhon Hernandez MD ? Signed By: ?<Electronically signed by Jhon Hernandez MD in OV> ? 11/23/24 1843 ? DD/ 1842 ? TD/TT: 11/23/24 1842 ? Roll Mechanic: ? Procedure Note Nathaly, Image - 02/11/[address] [address] Magnetic Resonance Report Signed with Addenda Patient: Justus BurrMR#: [id number] : 1985Acct:[id number] Age/Sex: 39 / MADM Date: 11/18/24 Loc: [facility] 482-[address]: Romelia Casas MD Ordering Physician: Romelia Casas MD Date of Service: 11/23/24 Procedure(s): MR thoracic spine wo/w con Accession Number(s): [id number] cc: Romelia Casas MD; Name,Ebenezer ROGERS ADDENDUM This document has been electronically signed by: Jhon Hernandez MD on 11/23/2024 18:42:17 ADDENDUM: This report was discussed with Deanna Christy RN on Nov 23, 2024 18:51:00 EST. This document has been electronically signed by: Dana Steinberg on 11/23/2024 18:52:00 Addendum Dictated By: Jhon Hernandez MD Addendum Signed By: <Electronically signed by MD Dominic in OV> 11/23/241852 Addendum Cosigned By: DD/ /06/1842 TD/TT: 11/23/2409/06/1852 CLINICAL HISTORY: paraplegia unknown dx, involuntary motion on images,best obtainable MR thoracic spine with and without gadolinium Comparison: None Findings: Normal alignment. No acute fracture or pathologic bone lesion. Hemangioma noted within T4. The thoracic cord is extremely atrophic, diffusely with somewhat diffuse white matter T2 signal prolongation. The conus terminates at L1. There is mild chronic height loss along the superior endplate of T7. No signal abnormality. Paraspinal musculature is unremarkable. No central canal stenosis or neural foraminal narrowing. Impression: Severe diffuse spinal cord atrophy and faint diffuse T2 signal prolongation. Findings are nonspecific but considerations would include ALS, advanced MS, prior trauma with devascularization. Correlation with patient history and any outside imaging would be recommended. This document has been electronically signed by: Jhon Hernandez MD on 11/23/2024 18:42:17 Dictated By: Jhon Hernandez MD Signed By: <Electronically signed by Jhon Hernandez MD in OV> 11/23/241842 DD/ 41 TD/TT: 11/23/241841 Roll Mechanic: [facility] External Provider IMG MRI PROCEDURES Edited Result - Final * CTA Chest PE Protocal (11/21/2024 12:50 PM EST) Anatomical Region Laterality Modality Body, Chest Computed Tomogra phy 11/21/2024 12:5 0 PM EST Narrative 11/21/2024 12:53 PM EST ? [facility] ?[address] ?[place] [address] ? CT Scan Report ? Signed ? Patient: Justus Burr ?MR#: [id number] ?? [id number] ? : 1985 ?Acct:[id number] ? Age/Sex: 39 / M ?ADM Date: 11/18/24 ? Loc: [facility] ?482-1 ? Attending Dr: Yulissa Bustos MD ? Ordering Physician: Yulissa Bustos MD ?? Date of Service: 11/21/24 ?? Procedure(s): CT angio chest PE protocol ?? Accession Number(s): [id number] ? cc: Yulissa Bustos MD; Name,Ebenezer ROGERS ? Report Number: ?? [id number]: Total DLP = ??446.00 mGy-cm ? CLINICAL HISTORY: r o PE ? CT angiography chest with contrast. 3D Postprocessing. ? Comparison: CT/SR - CT CHEST WO IV CON - 11/19/24 19:04 EST ? Findings: ?? No acute pulmonary embolism evident. Normal caliber pulmonary trunk. ?? Normal caliber thoracic aorta without stenosis or dissection. Patent ?? supra-aortic vessels. ?? Basilar airspace opacities more confluence in both lower lobes ?? nadh-uytzyjt-flyh-right suggesting progressive pneumonia or aspiration if ?? clinically appropriate. ?? Changes in the base of the left upper lobe are slightly improved. ?? Layering of tracheal secretions similar to prior. ?? Mild emphysema. No pleural effusion or pneumothorax. ?? Thoracic inlet intact. No thyroid nodules. Shotty mediastinal lymph nodes ?? stable to prior. Esophagus within normal limits. No hiatal hernia. ?? Similar gallbladder distention with layering of dense bile and/or mild ?? vicarious contrast excretion. Otherwise no acute process evident in the ?? upper abdomen. ?? Stable mild T7 compression fracture and hemangioma T9. Mild gynecomastia. ? Impression: ?? No acute pulmonary embolism or aortic dissection. ?? Progressive bibasilar airspace disease muzw-trpcqth-sxwv-right suggesting ?? progressive bilateral pneumonia and/or aspiration. ?? No other changes. ? This document has been electronically signed by: Syed Maldonado MD on ?? 11/21/2024 12:50:47 ? Dictated By: ?Syed Maldonado MD ? Signed By: ?<Electronically signed by Syed Maldonado MD in OV> ? 11/21/24 1252 ? DD/ 1250 ? TD/TT: 11/21/24 1250 ? Roll Mechanic: ? Procedure Note Donshanter, Image - 11/21/[address] [place] [address] [address] Scan Report Signed Patient: Justus BurrMR#: [id number] : 1985Acct:[id number] Age/Sex: 39 / MADM Date: 11/18/24 Loc: [facility] 482-[address]: Yulissa Bustos MD Ordering Physician: Yulissa Bustos MD Date of Service: 11/21/24 Procedure(s): CT angio chest PE protocol Accession Number(s): [id number] cc: Yulissa Bustos MD; Name,Ebenezer ROGERS Report Number: [id number]: Total DLP = 446.00 mGy-cm CLINICAL HISTORY: r o PE CT angiography chest with contrast. 3D Postprocessing. Comparison: CT/SR - CT CHEST WO IV CON - 11/19/24 19:04 EST Findings: No acute pulmonary embolism evident. Normal caliber pulmonary trunk. Normal caliber thoracic aorta without stenosis or dissection. Patent supra-aortic vessels. Basilar airspace opacities more confluence in both lower lobes jpac-dprfmfr-uezo-right suggesting progressive pneumonia or aspiration if clinically appropriate. Changes in the base of the left upper lobe are slightly improved. Layering of tracheal secretions similar to prior. Mild emphysema. No pleural effusion or pneumothorax. Thoracic inlet intact. No thyroid nodules. Shotty mediastinal lymph nodes stable to prior. Esophagus within normal limits. No hiatal hernia. Similar gallbladder distention with layering of dense bile and/or mild vicarious contrast excretion. Otherwise no acute process evident in the upper abdomen. Stable mild T7 compression fracture and hemangioma T9. Mild gynecomastia. Impression: No acute pulmonary embolism or aortic dissection. Progressive bibasilar airspace disease hpwz-nrnibrk-ktyz-right suggesting progressive bilateral pneumonia and/or aspiration. No other changes. This document has been electronically signed by: Syed Maldonado MD on 11/21/2024 12:50:47 Dictated By: Syed Maldonado MD Signed By: <Electronically signed by Syde Maldonado MD in OV> 11/21/24 1252 DD/ 1250 TD/TT: 11/21/24 1250 Roll Mechanic: [facility] External Provider IMG CT PROCEDURES Edited Result - Final * CT Head w/o Contrast (11/19/2024 8:14 PM EST) Anatomical Region Laterality Modality Head, Neck Computed Tomogra phy 11/19/2024 8:14 PM EST Narrative 11/19/2024 8:16 PM EST ? [facility] ?[address] ?[place] [address] ? CT Scan Report ? Signed ? Patient: Justus Burr ?MR#: [id number] ?? [id number] ? : 1985 ?Acct:[id number] ? Age/Sex: 39 / M ?ADM Date: 11/18/ ? Loc: HO.IMC ?482-1 ? Attending Dr: Yulissa Bustos MD ? Ordering Physician: Humphrey Marmolejo ?? Date of Service: 11/19/24 ?? Procedure(s): CT head/brain wo IV con ?? Accession Number(s): [id number] ? cc: Humphrey Marmolejo; Name,Ebenezer ROGERS ? Report Number: ?? [id number]: Total DLP = ??688.00 mGy-cm ? CLINICAL HISTORY: AMS ? CT head without contrast ? Comparison: CT/REG/SR - CT HEAD FOR STROKE - 03/07/24 18:43 EDT ? Findings: ?? No intra-axial mass, midline shift, hydrocephalus, or acute hemorrhage. ?? No significant atrophy-like change or white matter disease. ? Tiny retention cysts right maxillary sinus. ?? The orbits are within normal limits. ?? No skull fracture. ? IMPRESSION: ?? 1. No acute intracranial findings. ? This document has been electronically signed by: Jett Landaverde MD on ?? 11/19/2024 20:14:32 ? Dictated By: ?Jett Landaverde MD ? Signed By: ?<Electronically signed by Jett Landaverde MD in OV> ?11/19/242014 ? DD/ 13 ? TD/TT: 11/19/242013 ? Roll Mechanic: ? Procedure Note Valter, Image - 11/19/[address] [place] [address] [address] Scan Report Signed Patient: Justus Burr#: [id number] : 1985Acct:[id number] Age/Sex: 39 / MADM Date: 11/18/24 Loc: [facility] 482-[address]: Yulissa Bustos MD Ordering Physician: Humphrey Marmolejo Date of Service: 11/19/24 Procedure(s): CT head/brain wo IV con Accession Number(s): [id number] cc: Humphrey Marmolejo; Name,Ebenezer ROGERS Report Number: [id number]: Total DLP = 688.00 mGy-cm CLINICAL HISTORY: AMS CT head without contrast Comparison: CT/REG/SR - CT HEAD FOR STROKE - 03/07/24 18:43 EDT Findings: No intra-axial mass, midline shift, hydrocephalus, or acute hemorrhage. No significant atrophy-like change or white matter disease. Tiny retention cysts right maxillary sinus. The orbits are within normal limits. No skull fracture. IMPRESSION: 1. No acute intracranial findings. This document has been electronically signed by: Jett Landaverde MD on 11/19/2024 20:14:32 Dictated By: Jett Landaverde MD Signed By: <Electronically signed by Jett Landaverde MD in OV> 11/19/242014 DD/ 13 TD/TT: 11/19/242013 Roll Mechanic: [facility] External Provider IMG CT PROCEDURES Edited Result - Final * CT Chest w/o Contrast (11/19/2024 8:00 PM EST) Anatomical Region Laterality Modality Body, Chest Computed Tomogra phy 11/19/2024 8:00 PM EST Narrative 11/19/2024 8:02 PM EST ? [facility] ?[address] ?[place] [address] ? CT Scan Report ? Signed ? Patient: Justus Burr ?MR#: [id number] ?? [id number] ? : 1985 ?Acct:[id number] ? Age/Sex: 39 / M ?ADM Date: 11/18/24 ? Loc: HO.[facility]C ?482-1 ? Attending Dr: Yulissa Bustos MD ? Ordering Physician: Yulissa Bustos MD ?? Date of Service: 11/19/24 ?? Procedure(s): CT chest wo IV con ?? Accession Number(s): [id number] ? cc: Yulissa Bustos MD; Name,Ebenezer ROGERS ? Report Number: ?? [id number]: Total DLP = ??363.00 mGy-cm ? CLINICAL HISTORY: fever, pneumonia ? CT chest without contrast ? Comparison: None ? Findings: ?? The heart size is normal. ?? Mild distal esophageal mural thickening, nonspecific. ?? Mildly prominent mediastinal nodes may be reactive. ?? Gynecomastia. ? Ill-defined bilateral tree-in-bud nodular/patchy consolidations in the ?? dependent lungs, worse in the left lower lobe. ?? No significant pleural effusion or pneumothorax. ? The visualized upper abdomen is unremarkable. ?? Please see same day CT abdomen pelvis report. Osteopenia. Multilevel ?? Schmorl's nodes. Vertebral body hemangioma T4. ? IMPRESSION: ?? Ill-defined bilateral tree-in-bud nodular/patchy consolidations in the ?? dependent lungs, worse in the left lower lobe. Findings concerning for ?? endobronchial pneumonia or aspiration. ? This document has been electronically signed by: Jett Landaverde MD on ?? 11/19/2024 20:00:47 ? Dictated By: ?Jett Landaverde MD ? Signed By: ?<Electronically signed by Jett Landaverde MD in OV> ?11/19/242001 ? DD/ 99 ? TD/TT: 11/19/241999 ? Roll Mechanic: ? Procedure Note Donotuseinterpreter, Image - 11/19/[address] [address] [address] Scan Report Signed Patient: Justus BurrMR#: [id number] : 1985Acct:[id number] Age/Sex: 39 / MADM Date: 11/18/24 Loc: [facility] 482-[address]: Yulissa Bustos MD Ordering Physician: Yulissa Bustos MD Date of Service: 11/19/24 Procedure(s): CT chest wo IV con Accession Number(s): [id number] cc: Yulissa Bustos MD; Name,Ebenezer ROGERS Report Number: [id number]: Total DLP = 363.00 mGy-cm CLINICAL HISTORY: fever, pneumonia CT chest without contrast Comparison: None Findings: The heart size is normal. Mild distal esophageal mural thickening, nonspecific. Mildly prominent mediastinal nodes may be reactive. Gynecomastia. Ill-defined bilateral tree-in-bud nodular/patchy consolidations in the dependent lungs, worse in the left lower lobe. No significant pleural effusion or pneumothorax. The visualized upper abdomen is unremarkable. Please see same day CT abdomen pelvis report. Osteopenia. Multilevel Schmorl's nodes. Vertebral body hemangioma T4. IMPRESSION: Ill-defined bilateral tree-in-bud nodular/patchy consolidations in the dependent lungs, worse in the left lower lobe. Findings concerning for endobronchial pneumonia or aspiration. This document has been electronically signed by: Jett Landaverde MD on 11/19/2024 20:00:47 Dictated By: Jett Landaverde MD Signed By: <Electronically signed by Jett Landaverde MD in OV> 11/19/242001 DD/ 99 TD/TT: 11/19/241999 Roll Mechanic: us [facility] External Provider IMG CT PROCEDURES Edited Result - Final * CT Abdomen Pelvis w/ Contrast (11/19/2024 7:59 PM EST) Only the most recent of2 resultswithin the time period is included. Anatomical Region Laterality Modality Body, Pelvis, Abdomen Computed T omography 11/19/2024 7:59 PM EST Narrative 11/19/2024 8:01 PM EST ? [facility] ?[address] ?[place], [place] [address] ? CT Scan Report ? Signed ? Patient: Justus Burr ?MR#: [id number] ?? [id number] ? : 1985 ?Acct:[id number] ? Age/Sex: 39 / M ?ADM Date: 11/18/24 ? Loc: HO.[facility]C ?482-1 ? Attending Dr: Yulissa Bustos MD ? Ordering Physician: Yulissa Bustos MD ?? Date of Service: 11/19/24 ?? Procedure(s): CT abdomen pelvis w IV con ?? Accession Number(s): [id number] ? cc: Yulissa Bustos MD; Name,Ebenezer ROGERS ? Report Number: ?? [id number]: Total DLP = ??851.00 mGy-cm ? CLINICAL HISTORY: fever, urosepsis, ?abscess ? CT abdomen and pelvis with contrast ? Comparison: CT/SR - CT ABDOMEN PELVIS W IV CON - 09/07/24 10:14 EST ? Findings: ?? Diffuse esophageal mural thickening, nonspecific. Probable small hiatal ?? hernia. ?? Please see same day CT chest report. ?? Gynecomastia. ? Hepatomegaly. ?? Distended gallbladder. ?? Nonobstructive 2 mm calculus in the left upper pole kidney. ?? Large colonic stool burden. ?? No bowel obstruction. ?? Foci of soft tissue gas along the right anterior abdominal wall, ?? nonspecific. ? Normal appendix. ?? Mild prostatomegaly. ?? Scattered colonic diverticulosis without diverticulitis or colitis. ?? Suprapubic Villatoro catheter in place with bladder decompression, mural ?? thickening and pericystic stranding. ?? Osteopenia with diffuse multilevel spondylosis. Similar compression ?? deformity at L3. ? Similar heterogeneous sclerosis in the bilateral femoral heads can be seen ?? with AVN. ? IMPRESSION: ?? 1. Suprapubic Villatoro catheter in place with possible cystitis. ?? 2. Nonobstructive 2 mm calculus in the left upper pole kidney. ? This document has been electronically signed by: Jett Landaverde MD on ?? 11/19/2024 19:59:20 ? Dictated By: ?Jett Landaverde MD ? Signed By: ?<Electronically signed by Jett Landaverde MD in OV> ?11/19/241999 ? DD/ 58 ? TD/TT: 11/19/241958 ? Roll Mechanic: ? Procedure Note Doncat, Image - 11/19/[address] [place] [address] [address] Scan Report Signed Patient: Justus Burr#: [id number] : 1985Acct:[id number] Age/Sex: 39 / MADM Date: 11/18/24 Loc: [facility] 482-[address]: Yulissa Bustos MD Ordering Physician: Yulissa Bustos MD Date of Service: 11/19/24 Procedure(s): CT abdomen pelvis w IV con Accession Number(s): [id number] cc: Yulissa Bustos MD; Name,Ebenezer ROGERS Report Number: [id number]: Total DLP = 851.00 mGy-cm CLINICAL HISTORY: fever, urosepsis, ?abscess CT abdomen and pelvis with contrast Comparison: CT/SR - CT ABDOMEN PELVIS W IV CON - 09/07/24 10:14 EST Findings: Diffuse esophageal mural thickening, nonspecific. Probable small hiatal hernia. Please see same day CT chest report. Gynecomastia. Hepatomegaly. Distended gallbladder. Nonobstructive 2 mm calculus in the left upper pole kidney. Large colonic stool burden. No bowel obstruction. Foci of soft tissue gas along the right anterior abdominal wall, nonspecific. Normal appendix. Mild prostatomegaly. Scattered colonic diverticulosis without diverticulitis or colitis. Suprapubic Villatoro catheter in place with bladder decompression, mural thickening and pericystic stranding. Osteopenia with diffuse multilevel spondylosis. Similar compression deformity at L3. Similar heterogeneous sclerosis in the bilateral femoral heads can be seen with AVN. IMPRESSION: 1. Suprapubic Villatoro catheter in place with possible cystitis. 2. Nonobstructive 2 mm calculus in the left upper pole kidney. This document has been electronically signed by: Jett Landaverde MD on 11/19/2024 19:59:20 Dictated By: Jett Landaverde MD Signed By: <Electronically signed by Jett Landaverde MD in OV> 11/19/241999 DD/ 58 TD/TT: 11/19/241958 Roll Mechanic: [facility] External Provider IMG CT PROCEDURES Edited Result - Final * FL BARIUM SWALLOW MODIFIED (11/19/2024 1:00 PM EST) Anatomical Region Laterality Modality Head, Neck Radiographic Miriam ging 11/19/2024 1:00 PM EST Narrative 11/22/2024 3:57 PM EST ? [facility] ?[address] ?[place] [address] ? Fluoroscopy Report ? Signed ? Patient: Justus Burr ?MR#: [id number] ?? [id number] ? : 1985 ?Acct:[id number] ? Age/Sex: 39 / M ?ADM Date: 11/18/24 ? Loc: HO.[facility]C ?482-1 ? Attending Dr: Romelia Casas MD ? Ordering Physician: Yulissa Bustos MD ?? Date of Service: 11/19/24 ?? Procedure(s): FL Modified Barium Swallow ?? Accession Number(s): [id number] ? cc: Yulissa Bustos MD; Name,Ebenezer ROGERS ? EXAMINATION: ?? MODIFIED BARIUM SWALLOW ? CLINICAL INFORMATION: ?? Dysphagia ? COMPARISON: ?? None ? TECHNIQUE: ?? Modified barium swallow was performed under lateral fluoroscopy with ?? patient in standing position. Barium mixed with solids and liquids of ?? different consistencies was administered by the speech pathologist. ?? Examination was recorded in the fluoroscopy suite. ? FINDINGS: ?? Aspiration was observed with multiple consistencies of liquid barium. ?? The procedure was then terminated by request of the speech therapist. ? FLUOROSCOPY TIME: ?? 2 minutes 4 seconds ? Number of Spot Images: N/A ? DOSE AREA PRODUCT: ?? 1006 uGy-m2 (microgray-meter squared) ? FL/FL Modified Barium Swallow ?? IMPRESSION: ?? 1. Aspiration with multiple consistencies of liquid barium. ? Refer to the speech therapy report for further clarification ? This procedure was performed by Hong Fernandes PA-C, and supervised by ?? Dr. Mcgrath ? Electronically signed by: ??Dusty Mcgrath MD ??11/22/2024 03:54 PM EST RP ? Dictated By: ?Hong Fernandes ? Signed By: ?<Electronically signed by Hong Fernandes in OV> ? 11/22/24 1554 ?<Electronically signed by Dusty Mcgrath MD in OV> ? 11/22/24 1557 ? DD/ 1300 ? TD/TT: 11/19/24 1315 ? Roll Mechanic: ? Procedure Note Nathaly, Image - 11/22/[address] [address] Fluoroscopy Report Signed Patient: Justus BurrMR#: [id number] : 1985Acct:[id number] Age/Sex: 39 / MADM Date: 11/18/24 Loc: .[facility] 482-[address]: Romelia Casas MD Ordering Physician: Yulissa Bustos MD Date of Service: 11/19/24 Procedure(s): FL Modified Barium Swallow Accession Number(s): [id number] cc: Yulissa Bustos MD; Name,Ebenezer ROGERS EXAMINATION: MODIFIED BARIUM SWALLOW CLINICAL INFORMATION: Dysphagia COMPARISON: None TECHNIQUE: Modified barium swallow was performed under lateral fluoroscopy with patient in standing position. Barium mixed with solids and liquids of different consistencies was administered by the speech pathologist. Examination was recorded in the fluoroscopy suite. FINDINGS: Aspiration was observed with multiple consistencies of liquid barium. The procedure was then terminated by request of the speech therapist. FLUOROSCOPY TIME: 2 minutes 4 seconds Number of Spot Images: N/A DOSE AREA PRODUCT: 1006 uGy-m2 (microgray-meter squared) FL/FL Modified Barium Swallow IMPRESSION: 1. Aspiration with multiple consistencies of liquid barium. Refer to the speech therapy report for further clarification This procedure was performed by Hong Fernandes PA-C, and supervised by Dr. Mcgrath Electronically signed by: Dusty Mcgrath MD 11/22/2024 03:54 PM EST RP Dictated By: Hong Fernandes Signed By: <Electronically signed by Hong Fernandes in OV> 11/22/24 1554 <Electronically signed by Dusty Mcgrath MD in OV> 11/22/24 1557 DD/ 1300 TD/TT: 11/19/24 1315 Roll Mechanic: [facility] External Provider IMG FLU OROSCOPY PROCEDURES Final Result * XR Chest 1 View (10/21/2024 4:00 PM EST) Only the most recent of2 resultswithin the time period is included. Anatomical Region Laterality Modality Chest Radiographic Miriam ging 10/21/2024 4:00 PM EST Narrative 10/21/2024 4:13 PM EST ? [facility] ?[address] ?[place] [address] ?XRay Report ? Signed ? Patient: Justus Burr ?MR#: [id number] ?? [id number] ? : 1985 ?Acct:[id number] ? Age/Sex: 39 / M ?ADM Date: 10/21/24 ? Loc: [facility].[place] ?IMC-2 ? Attending Dr: Giulia Alatorre MD ? Ordering Physician: Giulia Alatorre MD ?? Date of Service: 10/21/24 ?? Procedure(s): XR chest 1V ?? Accession Number(s): [id number] ? cc: Ebenezer Leslie MD; Giulia Alatorre [...] DD/ 1600 ? TD/TT: 10/21/24 1603 ? Roll Mechanic: ? Procedure Note Donotuseinterpreter, Image - 10/21/[address] [address] XRay Report Signed Patient: Justus BurrMR#: [id number] : 1985Acct:[id number] Age/Sex: 39 / MADM Date: 10/21/24 Loc: [facility]-[address]: Giulia Alatorre MD Ordering Physician: Giulia Alatorre MD Date of Service: 10/21/24 Procedure(s): XR chest 1V Accession Number(s): [id number] cc: Ebenezer Leslie MD; Giulia Alatorre MD EXAMINATION: XR CHEST CLINICAL INFORMATION: ? cough/choking episode COMPARISON: 10/21/2024 at 12:09 AM. 10/11/2024. TECHNIQUE: Frontal view of the chest was obtained. FINDINGS: No significant abnormality is noted involving the heart, lungs, mediastinum, bony thorax or soft tissues. XR/XR chest 1V IMPRESSION: No active pulmonary disease. Electronically signed by: Dusty Mcgrath MD 10/21/2024 04:10 PM [facility] Dictated By: Dusty Mcgrath MD Signed By: <Electronically signed by Dusty Mcgrath MD in OV> 10/21/24 1610 DD/ 1600 TD/TT: 10/21/24 1603 Roll Mechanic: us [facility] External Provider IMG XR PROCEDURES Final Result * (ABNORMAL) Urinalysis, Complete, with Reflex to Culture (10/21/2024 1:41 AM EST) Only the most recent of3 resultswithin the time period is included. Color Urine Dark Yellow [facility] Appearance Urine Turbid [facility] PH 6.0 5.0 - 9.0 [facility] Glucose Urine UA Negative Negative mg/dL [facility] Urine Blood Large (3+)(A) Negative [facility] Specific Hoffman - Urine >=1.030(H) 1.005 - 1.025 [facility] Urine Protein 300 (3+)(A) Neg-Trace mg/dL [facility] Urine Ketones 15 Negative mg/dL [facility] Nitrite Urine Negative Negative [facility] Leukocyte Esterase Urine Large (3+)(A) Negative [facility] RBC Urine >20(A) 0 - 2 /HPF [facility] Urine WBC >50(A) 0 - 5 /HPF [facility] Urine Squamous Epithelial Cell 3-5 0 - 2 /HPF [facility] CALCIUM OXALATE CRYSTAL, UR Present [facility] Urine Bacteria Trace None Seen [facility] Hyaline Casts, Urine >20 0 - 2 /LPF [facility] Urine Yeast Present [facility] 10/21/2024 1:41 AM EST 10/21/2024 1:46 AM EST Narrative [facility] - 10/21/2024 2:00 AM EST [id number], Suprapubic us Generic External Data Provider LAB URINE ORDERAB LES Final Result [facility] [address] [place] [phone] * B Type Natriuretic Peptide (BNP) (10/21/2024 1:24 AM EST) B Type Natriuretic Peptide <10 <100 pg/mL [facility] Comment:For those patients w ho are being treated with Natrecor(nesiritide, recombinant BNP), BNP testing should beperformed at least two hours post treatment in order toensure that only endogenous levels of BNP are detected. 10/21/2024 1:24 AM EST 10/21/2024 1:47 AM EST Generic External Data Provider LAB BLOOD ORDERAB LES Final Result Performing Organization Address [facility]/ZIP Co de Phone Number [facility] [address] [place] [phone] * SARS-CoV-2 RNA, Influenza A/B, and RSV RNA, Ql NAAT (10/21/2024 1:13 AM EST) Influenza A PCR NEGATIVE Negative [facility] Influenza B PCR NEGATIVE Negative [facility] Resp Syncy Virus RNA Qual PCR NEGATIVE Negative [facility] SARS COV2 PCR NEGATIVE Negative [facility] Comment:All test results mus t [...] use by authorized laboratories.Testing performed on the [employer] GeneXpert utilizingreal-time RT-PCR.All SARS CoV2 and positive influenza A/B results arereported to [facility]. 10/21/2024 1:13 AM EST 10/21/2024 1:17 AM EST Generic External Data Provider LAB MICROBIOLOGY - GENERAL ORDERABLES Final Result Performing Organization Address [facility] Co de Phone Number [facility] [address] [place] [phone] * Lactic Acid (10/21/2024 1:10 AM EST) Only the most recent of2 resultswithin the time period is included. Lactic Acid 1.4 0.5 - 2.0 mmol/L [facility] 10/21/2024 1:10 AM EST 10/21/2024 1:14 AM EST Generic External Data Provider LAB BLOOD ORDERAB LES Final Result Performing Organization Address [facility]/ZIP Co de Phone Number [facility] [address] [place] [phone] * Culture, Urine, Routine (09/18/2024 12:00 AM EST) Only the most recent of2 resultswithin the time period is included. Urine Urine specimen from urinary conduit / Unknown 09/18/2024 09/18/2024 Comment:Urine Cath Narrative [facility] - 09/22/2024 7:40 AM EST [...] GENERAL ORDERABLES Final Result Performing Organization Address City/[facility]/ZIP Co de Phone Number [facility] [address] [place] [phone] * (ABNORMAL) Urinalysis w/reflex microscopic (09/07/2024 9:58 AM EST) Color Urine Yellow [facility] Appearance Urine Turbid [facility] PH 8.0 5.0 - 9.0 [facility] Glucose Urine UA Negative Negative mg/dL [facility] Urine Blood Trace Negative [facility] Specific Hoffman - Urine 1.015 1.005 - 1.025 [facility] Urine Protein 300 (3+)(A) Neg-Trace mg/dL [facility] Urine Ketones Negative Negative mg/dL [facility] Nitrite Urine Positive(A) Negative [facility] Leukocyte Esterase Urine Large (3+)(A) Negative [facility] 09/07/2024 9:58 AM EST 09/07/2024 10:06 AM EST Narrative [facility] - 09/07/2024 10:22 AM EST Urine, Suprapubic us Generic External Data Provider LAB URINE ORDERAB LES Final Result Performing Organization Address City/State/[facility] Co de Phone Number [facility] [address] [place] [phone] * BD DEXA Axial (09/01/2024 10:15 AM EST) Anatomical Region Laterality Modality Body Radiographic Miriam ging 09/01/2024 10:1 5 AM EST Narrative 09/01/2024 3:11 PM EST ? [facility] ? [address] ?[place] [address] ? Mammography Report ? Signed ? Patient: Justus Burr ?MR#: [id number] ?? [id number] ? : 1985 ?Acct:[id number] ? Age/Sex: 39 / M ?ADM Date: 11/20/24 ? Loc: HO.MAMMO ? Attending : Ebenezer Name MD ? Ordering Physician: Name,Ebenezer MD ?Results: ? Date of Service: 09/01/24 ?Follow Up: ? Procedure(s): XR DEXA axial skeleton ?? Accession Number(s): [id number] ? cc: Name,Ebenezer ROGERS ? EXAMINATION: ?? BONE DENSITOMETRY ? CLINICAL INDICATION: ?? Chronic prednisone use. ? COMPARISON: ?? This is the patient's baseline examination. ? TECHNIQUE: ?? Using a [employer] DXA System (software version: 13.1) ?? manufactured by [employer], dual-energy x-ray absorptiometry was ?? performed of [...] DD/ 1015 ? TD/TT: 09/01/24 1040 ? Roll Mechanic: RR ? Procedure Note Nathaly, Kinsey - 09/01/2024 [facility]'s [address] [place] [address] Mammography Report Signed Patient: Partha Burrveronica#: [id number] : 1985Acct:[id number] Age/Sex: 39 / MADM Date: 09/01/24 Loc: [facility] Attending Dr: Ebenezer Leslie MD Ordering Physician: Ebenezer Leslieults: Date of Service: 09/01/24Follow Up: Procedure(s): XR DEXA axial skeleton Accession Number(s): [id number] cc: Name,Ebenezer ROGERS EXAMINATION: BONE DENSITOMETRY CLINICAL INDICATION: Chronic prednisone use. COMPARISON: This is the patient's baseline examination. TECHNIQUE: Using a [employer] DXA System (software version: 13.1) manufactured by [employer], dual-energy x-ray absorptiometry was performed of the [...] by: Kirby Duran MD 09/01/2024 03:09 PM [facility] Dictated By: Kirby Duran MD Signed By: <Electronically signed by Kirby Duran MD inOV> 09/01/24 1509 DD/ 1015 TD/TT: 09/01/24 1040 Roll Mechanic: RR [facility] Anuj ROGERS IM DXA PROCEDURES Final Result from Last 3 Months Insurance [facility] Care Teams Congregational Care Pastor Relationship Specialty Start Date End Date Name, MD Ebenezer [address] [place] [address] PCP - General Family Medicine 06/07/22 Recombine 01/06/23
--- OUTSIDE RECORDS SUMMARY | 2024-12-02 13:19 | XMS_ITS | Encounter Summary ---
Author Organization [employer] Address [address] [facility] [address] 7t [place] [address] Care Team Providers Care Agents' Records Clerk Name Role Phone Name, Ebenezer ROGERS Primary Care Provider [phone] Encounter Details Date Type Department Care Team (Late st Contact Info) Description 10/14/2023 Abstract [facility] ADULT DENTAL [address] [place] [address] Leandro Phillips, DMD [address] [place] [address] Social History Tobacco Use Types Packs/Day Years [...] as of this encounter Plan of Treatment Not on file documented as of this encounter Visit Diagnoses Not on filedocumented in this encounter Additional Health Concerns Assessment Noted Time PHQ-9 Depression Total Score: 10 023 8:48 AM EST documented as of this encounter Care Teams Agents' Records Clerk Relationship Specialty Start Date End Date Name, MD Ebenezer [address] [place] [address] PCP - General Family Medicine 06/07/22 @Pay 01/06/23 documented as of this encounter
--- OUTSIDE RECORDS SUMMARY | 2024-12-02 13:19 | XMS_ITS | Encounter Summary ---
Author Organization [employer] Address 75 [facility] 7t [place] [address] Care Team Providers Care Auto Transmission Technician Name Role Phone Name, Ebenezer ROGERS Primary Care Provider [phone] Reason for Visit * Reason Onset Date Comments Nurse Triage 07/24/2023 Encounter Details Date Type Department Care Team ([facility] st Contact Info) Description 07/24/2023 Telephone [facility] MEDICINE [address] [place] [address] Name, MD Ebenezer 230 [place] [address] Nurse Triage Social History Tobacco Use Types [...] 4:53 PM EDT T/C to pt. Through [employer] id - [id number] for below message, pt. States he had [...] today 142/100. Any questions please contact Sulma [phone] Symptom: High Blood Pressure - Caller Reports [...] documented as of this encounter Care Teams Auto Transmission Technician Relationship Specialty Start Date End Date Name, MD Ebenezer 230 [place] [address] PCP - General Family Medicine 06/07/22 50 Cubes 01/06/23 documented as of this encounter
--- OUTSIDE RECORDS SUMMARY | 2024-12-02 13:19 | XMS_ITS | Encounter Summary ---
Author Organization [employer] Address 75 [facility] 7t [place] [address] Care Team Providers Care Sign Carpenter Name Role Phone Name, Ebenezer ROGERS Primary Care Provider [phone] Reason for Visit * Reason Onset Date Comments ER Follow-up 04/09/2024 Encounter Details Date Type Department Care Team ([facility] st Contact Info) Description 04/09/2024 Telephone [facility] MEDICINE [address] [place] [address] Name, MD Ebenezer 230 [place] [address] ER Follow-up Social History Tobacco Use Types [...] 4:39 PM EDT T/C to pt. Through youwho id - [id number] for below message, pt. States he is doing better.Pt. Advised to finish entire course of antibiotics, pt. Also advised to call urologist office for follow up as advised by ED. Pt. Advised to give call to [facility] if any questions or concern. Advised to go to nearest ED in case of any new or worsening symptoms. Pt. Verbally greed and understood. * Telephone Encounter - Garrett Garcia - 04/09/2024 3:46 PM EDT Patient calling to report ED visit on : Date: 04/08 Hospital: [facility] Seen for: UTI Patient advised will forward to team nurse for follow up documented in this encounter Plan of Treatment Not on file documented as of this encounter Visit Diagnoses Not on filedocumented in this encounter Additional Health Concerns Assessment Noted Time PHQ-9 Depression Total Score: 10 023 8:48 AM EST documented as of this encounter Care Teams Sign Carpenter Relationship Specialty Start Date End Date Name, MD Ebenezer [address] [place] [address] PCP - General Family Medicine 06/07/22 [employer] 01/06/23 documented as of this encounter
--- OUTSIDE RECORDS SUMMARY | 2024-12-02 13:19 | XMS_ITS | Encounter Summary ---
Author Organization [employer] Address 75 [facility] 7t [place] [address] Care Team Providers Care Supervisor Concrete Stone Finishing Name Role Phone Name, Ebenezer ROGERS Primary Care Provider [phone] Reason for Visit * Reason Onset Date Comments Appointment Request 09/23/2023 Encounter Details Date Type Department Care Team ([facility] st Contact Info) Description 09/23/2023 Telephone [facility] MEDICINE [address] [place], [place] [phone] Name, MD Ebenezer [address] [place] [address] Appointment Request Social History Tobacco Use Types [...] encounter Miscellaneous Notes * Telephone Encounter - Wilder Jules - 09/23/2023 11:45 AM EST Tc from pt requesting to r/s appt for Follow up on 09/23/2023 @ 10:00 am Please contact pt @ [phone] documented in this encounter Plan of Treatment Not on file documented as of this encounter Visit Diagnoses Not on filedocumented in this encounter Additional Health Concerns Assessment Noted Time PHQ-9 Depression Total Score: 10 023 8:48 AM EST documented as of this encounter Care Teams Supervisor Concrete Stone Finishing Relationship Specialty Start Date End Date Name, MD Ebenezer [address] [place] [address] PCP - General Family Medicine 06/07/22 Souqalmal 01/06/23 documented as of this encounter
--- OUTSIDE RECORDS SUMMARY | 2024-12-02 13:19 | XMS_ITS | Encounter Summary ---
Author Organization [facility] Address [address] [place] [address] Care Team Providers Care Senior Administrative Associate Name Role Phone Name, Ebenezer ROGERS Primary Care Provider [phone] Encounter Details Date Type Department Care Team (Late st Contact Info) Description 08/03/2024 7:54 AM EDT Hospital Encounter TH HISTORIC ENCOUNTERS EASTERN CONVERSION ONLY Olena Arnett MD [address] [facility] [address] [place] [address] Social History Tobacco Use Types [...] has been getting PT OT outpatient at [facility] and they are working from sit [...] as per protocol -Preinfusion labs as per [facility] protocol -Continue monthly IVIG, patient feels [...] 40 minutes. The majority of the actual sosm-xb-[id number] visit was spent counseling the patient with respect to the current neurological picture. Olena Arnett MD documented in this encounter Plan of Treatment Upcoming Encounters Date Type Department Care Team (Late st Contact Info) Description 01/11/2025 8:00 AM EDT Appointment [facility] for [place] Outpatient Rehabilititation - [address] [address] documented as of this encounter Goals Goal [...] on filedocumented in this encounter Care Teams Senior Administrative Associate Relationship Specialty Start Date End Date Name, MD Ebenezer 4 [facility] [place] PCP - General 11/27/22 documented as of this encounter
--- OUTSIDE RECORDS SUMMARY | 2024-12-02 13:19 | XMS_ITS | Encounter Summary ---
Author Organization [employer] Address 75 [facility] 7t [place] [address] Care Team Providers Care Leather Piece Inspector Name Role Phone Name, Ebenezer ROGERS Primary Care Provider [phone] Reason for Visit * Reason Onset Date Comments verbal order request 11/03/2024 Encounter Details Date Type Department Care Team ([facility] st Contact Info) Description 11/03/2024 Telephone [facility] MEDICINE [address] [place] [address] Name, MD Ebenezer [address] [place] [address] verbal order request Social History Tobacco Use [...] 2:20 PM EST Tc to Tami @ [facility] provided verbal order for pt to have physical Therapy Service 2x a week for8 weeks. Tami verbalized understanding and no further questions or concerns at this time. * Telephone Encounter - Sergio Orosco - 11/03/2024 1:45 PM EST Tc from Tami with [facility] requesting a verbal order for physical therapy 2x a week for 8 weeks. Any questions please contact Tami [phone] documented in this encounter Plan of Treatment Not on file documented as of this encounter Visit Diagnoses Not on filedocumented in this encounter Additional Health Concerns Assessment Noted Time PHQ-9 Depression Total Score: 13 024 10:48 AM EDT documented as of this encounter Care Teams Leather Piece Inspector Relationship Specialty Start Date End Date Name, MD Ebenezer [address] [place] [address] PCP - General Family Medicine 06/07/22 [employer] 01/06/23 documented as of this encounter
--- OUTSIDE RECORDS SUMMARY | 2024-12-02 13:19 | XMS_ITS | Encounter Summary ---
Author Organization [employer] Address 75 [facility] 7t [place] [address] Care Team Providers Care Barrel Endshaker Adjuster Name Role Phone Name, Ebenezer ROGERS Primary Care Provider [phone] Reason for Visit * Reason Onset Date Comments FYI 08/22/2023 Encounter Details Date Type Department Care Team ([facility] st Contact Info) Description 08/22/2023 Telephone [facility] MEDICINE [address] [place], [place] [phone] Name, MD Ebenezer [address] [place] [address] FYI Social History Tobacco Use Types Packs/Day [...] is your housing situation today? I have zohiab singh 07/30/[address] you [...] due to behavior. Any questions contact Sulma [phone] documented in this encounter Plan of Treatment Not on file documented as of this encounter Visit Diagnoses Not on filedocumented in this encounter Additional Health Concerns Assessment Noted Time PHQ-9 Depression Total Score: 10 023 8:48 AM EST documented as of this encounter Care Teams Barrel Endshaker Adjuster Relationship Specialty Start Date End Date Name, MD Ebeneezr [address] [place] [address] PCP - General Family Medicine 06/07/22 [place] 01/06/23 documented as of this encounter
--- OUTSIDE RECORDS SUMMARY | 2024-12-02 13:19 | XMS_ITS | Encounter Summary ---
Author Organization [employer] Address 75 [facility] 7t [place] [address] Care Team Providers Care Manager Budget Name Role Phone Name, Ebenezer ROGERS Primary Care Provider [phone] Reason for Visit * Reason Onset Date Comments Nurse Triage 10/20/2024 Durable Medical Equipment 10/20/2024 Thicke ner Encounter Details Date Type Department Care Team ([facility] st Contact Info) Description 10/20/2024 Telephone [facility] MEDICINE 230 [place], [place] [phone] Name, MD Ebenezer [address] [place] [address] Nurse Triage; Durable Medical Equipment (Thickener) Social [...] housing situation today? I have zohaibkrista singh 07/30/[address] you [...] * Telephone Encounter - Anastacia Meyer - 11/17/2024 10:44 AM EST Signed RX for thickener packets received and scanned into media. [facility] collection coordinator/Rosalina Cárdenas notified via [employer] staff message. If patient calls to check status on above, please advise them to contact [facility] critical care physician assistant . * Telephone Encounter - Anastacia Meyer - 11/12/2024 12:12 PM EST DME RX for Thickener packets generated and placed on providers desk for signature. * Telephone Encounter - Beverley Echols RN - 10/29/2024 2:00 PM EST [facility] Liaison states that pt was recently discharged from the hospital on honey thick liquids but wasnot provided thickening packets. Pt was [facility]25 Dx: Sepsis, Acute UTI. [facility] notes indicate pt was discharged with recommendations for ground/mech/nectar due to dysphagia and recommended to f/u outpatient with speech. Pt was [facility] 10/27/24 Dx: MS, UTI T/C placed [...] heart rate and possible aspiration. Visit from Critical access hospital is offered and accepted. Will contact at this time and Critical access hospital will visit Pt . Call to [facility] unable to get through on line. Spoke with [facility] personnel. Pt was triaged with [facility] nurse as well , information [...] Noted Time PHQ-9 Depression Total Score: 13 08/04/ 024 10:48 AM EDT documented as of this encounter Care Teams Manager Budget Relationship Specialty Start Date End Date Name, MD Ebenezer [address] [place] [address] PCP - General Family Medicine 06/07/22 [employer] 01/06/23 documented as of this encounter
--- OUTSIDE RECORDS SUMMARY | 2024-12-02 13:19 | XMS_ITS | Encounter Summary ---
Author Organization [facility] Address [address] [place] [address] Care Team Providers Care System Trainer Name Role Phone Name, Ebenezer ROGERS Primary Care Provider [phone] Encounter Details Date Type Department Care Team [...] Description 01/11/2025 8:00 AM EDT Appointment [facility] [place] Outpatient Rehabilititation [address] [address] documented as of this encounter [...] on filedocumented in this encounter Care Teams System Trainer Relationship Specialty Start Date End Date Name, MD Ebenezer [address] [place], [place] PCP - General 11/27/22 documented as of this encounter
--- OUTSIDE RECORDS SUMMARY | 2024-12-02 13:19 | XMS_ITS | Encounter Summary ---
Author Organization [facility] Address [address] [place] [address] Care Team Providers Care Network Coordinator Name Role Phone Name, Ebenezer ROGERS Primary Care Provider [phone] Encounter Details Date Type Department Care Team [...] Info) Description 01/11/2025 8:[address] [facility] [place] Outpatient Rehabilititation [address] [address] documented as of this encounter [...] on filedocumented in this encounter Care Teams Network Coordinator Relationship Specialty Start Date End Date Name, MD Ebenezer [address] [place], [place] PCP - General 11/27/22 documented as of this encounter
--- OUTSIDE RECORDS SUMMARY | 2024-12-02 13:19 | XMS_ITS | Encounter Summary ---
Author Organization [employer] Address [address] [facility] [address] 7t [place] [address] Care Team Providers Care Community Service Director Name Role Phone Name, Ebenezer ROGERS Primary Care Provider [phone] Encounter Details Date Type Department Care Team (Late st Contact Info) Description 10/07/2023 Abstract [facility] ADULT DENTAL [address] [place] [address] Leandro Phillips, DMD [address] [place] [address] Social History Tobacco Use Types Packs/Day Years [...] documented as of this encounter Care Teams Community Service Director Relationship Specialty Start Date End Date Name, MD Ebenezer [address] [place] [address] PCP - General Family Medicine 06/07/22 [employer] 01/06/23 documented as of this encounter
--- OUTSIDE RECORDS SUMMARY | 2024-12-02 13:19 | XMS_ITS | Encounter Summary ---
Author Organization [employer] Address 75 [facility] 7t [place] [address] Care Team Providers Care Glove Printer Name Role Phone Name, Ebenezer ROGERS Primary Care Provider [phone] Encounter Details Date Type Department Care Team ([facility] st Contact Info) Description 12/02/2024 Orders Only GENERIC EXTERNAL DATA [...] on file documented as of this encounter Procedures Procedure Name Priority Date/Time Associated Diagnosis Comments VENOUS BLOOD GAS Routine 12/02/2024 12:5 8 PM EST documented in this encounter Results * (ABNORMAL) VENOUS BLOOD GAS (12/02/2024 12:58 PM EST) VBG pH 7.55(H) 7.32 - 7.43 [facility] Comment:METER #: [id number] additional_comment: Nabeel mcgeedj VBG PCO2 27 mmHg [facility] Comment:METER #: [id number] additional_comment: Cb delgadj VBG PO2 106 mmHg [facility] Comment:METER #: [id number] additional_comment: Cb cheyennegadj VBG Base Excess 3.5 mmol/L [facility] Comment:METER #: [id number] additional_comment: Cb delgadj VBG HCO3 24 22 - 26 mmol/L [facility] Comment:METER #: [id number] additional_comment: Nabeel mcgeedj O2 Sat, Saul 99.0 % [facility] Comment:METER #: [id number] additional_comment: Cb arelydj 12/02/2024 12:5 8 PM EST 12/02/2024 1:03 PM EST us Generic External Data Provider LAB BLOOD ORDERAB LES Final Result [facility] [address] [place] [phone] documented in this encounter Visit Diagnoses Not on filedocumented in this encounter Additional Health Concerns Assessment Noted Time PHQ-9 Depression Total Score: 13 024 10:48 AM EDT documented as of this encounter Care Teams Glove Printer Relationship Specialty Start Date End Date Name, MD Ebenezer [address] [place] [address] PCP - General Family Medicine 06/07/22 [employer] 01/06/23 documented as of this encounter
--- OUTSIDE RECORDS SUMMARY | 2024-12-02 13:19 | XMS_ITS | Encounter Summary ---
Author Organization [facility] Address [address] [place] [address] Care Team Providers Care Power Transformer Repairer Name Role Phone Name, Ebenezer ROGERS Primary Care Provider [phone] Encounter Details Date Type Department Care Team ([facility] st Contact Info) Description 08/09/2024 [...] Description 01/11/2025 8:00 AM EDT Appointment [facility] [place] Outpatient Rehabilititation [address] [address] documented as of this encounter [...] on filedocumented in this encounter Care Teams Power Transformer Repairer Relationship Specialty Start Date End Date Name, MD Ebenezer [address] [place], [place] PCP - General 11/27/22 documented as of this encounter
--- OUTSIDE RECORDS SUMMARY | 2024-12-02 13:19 | XMS_ITS | Encounter Summary ---
Author Organization [employer] Address 75 [facility] 7t [place] [address] Care Team Providers Care Or Scrub Tech Name Role Phone Name, Ebenezer ROGERS Primary Care Provider [phone] Reason for Visit * Reason Onset Date Comments verbal order 02/11/2024 Encounter Details Date Type Department Care Team ([facility] st Contact Info) Description 02/11/2024 Telephone [facility] MEDICINE [address] [place], [place] [phone] Name, MD Ebenezer [address] [place] [address] verbal order Social History Tobacco Use Types [...] - 02/11/2024 3:24 PM EDT T/C to [phone] for below approved verbal order. Eunice verbally agreed and understood. * Telephone Encounter - Daniel Hicks RN - 02/11/2024 2:27 PM EDT Please review and advise for below request. * Telephone Encounter - Claudia Martini - 02/11/2024 1:07 PM EDT Tc from E[facility]ice with [facility] requesting verbal orders for PT 1-2 times a week for nine weeks. Please contact Eunice at [phone] documented in this encounter Plan of Treatment Not on file documented as of this encounter Visit Diagnoses Not on filedocumented in this encounter Additional Health Concerns Assessment Noted Time PHQ-9 Depression Total Score: 10 023 8:48 AM EST documented as of this encounter Care Teams Or Scrub Tech Relationship Specialty Start Date End Date Name, MD Ebenezer [address] [place] [address] PCP - General Family Medicine 06/07/22 [employer] 01/06/23 documented as of this encounter
--- OUTSIDE RECORDS SUMMARY | 2024-12-02 13:19 | XMS_ITS | Encounter Summary ---
Author Organization [employer] Address 75 [facility] 7t [place] [address] Care Team Providers Care Gandy Dancer Name Role Phone Name, Ebenezer ROGERS Primary Care Provider [phone] Reason for Visit * Reason Onset Date Comments No Show 11/17/2024 Encounter Details Date Type Department Care Team ([facility] st Contact Info) Description 11/17/2024 Telephone [facility] MEDICINE [address] [place], [place] [phone] Name, MD Ebenezer [address] [place] [address] No Show Social History Tobacco Use Types Packs/Day Years [...] encounter Miscellaneous Notes * Telephone Encounter - Breonna Martini - 11/17/2024 10:46 AM EST Patient no show to FOLLOW UP appointment on 11/17/24. documented in this encounter Plan of Treatment Not on file documented as of this encounter Visit Diagnoses Not on filedocumented in this encounter Additional Health Concerns Assessment Noted Time PHQ-9 Depression Total Score: 13 024 10:48 AM EDT documented as of this encounter Care Teams Gandy Dancer Relationship Specialty Start Date End Date Name, MD Ebenezer [address] [place] [address] PCP - General Family Medicine 06/07/22 [employer] 01/06/23 documented as of this encounter
--- OUTSIDE RECORDS SUMMARY | 2024-12-02 13:19 | XMS_ITS | Clinical Summary ---
Author Organization [facility] Address [address] [place] [address] Care Team Providers Care Sample Taker Operator Name Role Phone Name, Ebenezer ROGERS Primary Care Provider [phone] Allergies No known active allergies Medications Medication Sig Dispensed Refills Start Date End Date Status D3 Super Strength 50 MCG (1999) CAPS Take 1 capsule by mouth daily. 0 09/27/2022 Active [place]-3 Fatty Acids (Fish Oil) 1000 MG CAPS [...] age to complete this topic Care Teams Sample Taker Operator Relationship Specialty Start Date End Date Name, MD Ebenezer 230 [facility] [address] [place] [address] PCP - General Internal Medicine 11/27/22
--- OUTSIDE RECORDS SUMMARY | 2024-12-02 13:19 | XMS_ITS | Encounter Summary ---
Author Organization [employer] Address 75 [facility] 7t [place] [address] Care Team Providers Care Client Leader Name Role Phone Name, Ebenezer ROGERS Primary Care Provider [phone] Encounter Details Date Type Department Care Team (Latest Contact Info) Description 12/12/2020 Abstract [facility] CONVERSIONS Dental, Provider, DDS Social History [...] on filedocumented in this encounter Care Teams Client Leader Relationship Specialty Start Date End Date Name, MD Ebenezer [address] [place] [address] PCP - General Family Medicine 06/07/22 [employer] 01/06/23 documented as of this encounter
--- OUTSIDE RECORDS SUMMARY | 2024-12-02 13:20 | XMS_ITS | Encounter Summary ---
Author Organization [employer] Address [address] [facility] 7[address] [place] [address] Care Team Providers Care Floating Operator Name Role Phone Name, Ebeneezr ROGERS Primary Care Provider [phone] Reason for Visit * Reason Onset Date Comments FYI 06/15/2024 Encounter Details Date Type Department Care Team ([facility] st Contact Info) Description 06/15/2024 Telephone [facility] [address] [place], [place] [phone] Name, MD Ebenezer [address] [place] [address] FYI Social History Tobacco Use Types Packs/Day [...] - 06/15/2024 3:27 PM EDT Tc from [facility] leaving an FYI for PCP in regards [...] documented as of this encounter Care Teams Floating Operator Relationship Specialty Start Date End Date Name, MD Ebenezer [address] [place] [address] PCP - General Family Medicine 06/07/22 [employer] 01/06/23 documented as of this encounter
--- OUTSIDE RECORDS SUMMARY | 2024-12-02 13:20 | XMS_ITS | Clinical Summary ---
Author Organization [facility] Address [address] [place] [address] Phone Care Team Providers Care Toll Testboard Worker Name Role Phone Name, Ebenezer ROGERS Primary Care Provider [phone] Allergies No known active allergies Medications acetaminophen [...] - 10/20/2024 11:59 PM EST Hospital Encounter [facility] [address] [phone] Jeanne Hewitt MD Demyelinating neuropathy Discharge Disposition: Home or Self Care 09/06/2024 10:16 AM EST - 09/06/2024 11:59 PM EST Hospital Encounter [facility] [address] [phone] Demyelinating neuropathy (Primary Dx) Discharge Disposition: Home or Self Care 09/03/2024 Telephone [facility] [address] [place] [phone] Olena Arnett MD from Last 3 Months Immunizations Name Administration Dates Next Due [facility] SARS-CoV-2 COVID-19, mRNA, LNP-S, preservative free 08/14/2021,07/24/2021 [...] Info) Description 01/11/2025 8:00 AM EDT Appointment [facility] [address] [phone] Health Maintenance Due Date Last [...] LAB CHEMISTRY METHOD 09/06/2024 12:39 PM EST [facility] eGFR 127 >=60 mL/min/1. 73m2 LAB CHEMISTRY METHOD 09/06/2024 12:39 PM EST [facility] Comment:Calculation based on the??Chronic Kidney Disease Epidemiology Collaboration (CKD-EPI) equation refit??without adjustment for race. Blood Venous blood specimen / Unknown Venipuncture / Unknown 09/06/2024 10:37 AM EST 09/06/2024 11:32 AM EST Jeanne Hewitt MD LAB BLOOD ORDERABLES Final R esult Performing Organization Address City/[facility]/ZIP Co de Phone Number [facility] [address] [place] [address], [place] [phone] * BUN (09/06/2024 10:37 AM EST) BUN 8 5 - 25 mg/dL LAB CHEMISTRY METHOD 09/06/2024 12:39 PM EST [facility] Blood Venous blood specimen / Unknown Venipuncture / Unknown 09/06/2024 10:37 AM EST 09/06/2024 11:32 AM EST Jeanne Hewitt MD LAB BLOOD ORDERABLES Final R esult [facility] [address] [place] [address], [place] [phone] from Last 3 Months Insurance [facility] MEDICAID Advance Directives Documents on File Type Date Recorded Patient Lens Examiner Expl anation Health Care Decision (hx) 10/29/2022 [...] (hx) 09/24/2021 AD GONZALEZ DIRECTIVE Care Teams Toll Testboard Worker Relationship Specialty Start Date End Date Name, MD Ebenezer [address] [place] [address] PCP - General 11/27/22
[2024-12-02 13:21] LABS: White Blood Count 38.6 X10*3/uL (4.8-10.8)
[2024-12-02 13:24] LABS: B Type Natriuretic Peptide 14 pg/mL (<100)
[2024-12-02 13:26] LABS: Troponin-I High Sensitivity 12.3 ng/L (<3.5-35.0)
[2024-12-02 13:33] LABS: Band Neutrophils Percent 0 % (3-5); Basophils Abs Manual 0.4 X10*3/uL (0.0-0.2); Basophils Percent Manual 1 % (0-2); Large Platelet PRESENT; Monocytes Absolute Manual 3.1 X10*3/uL (0.1-1.2); Monocytes Percent Manual 8 % (2-11); Neutrophils Absolute Manual 35.1 X10*3/uL (2.0-8.3); Neutrophils Percent Manual 91 % (45-73); Platelet Estimate NORMAL (NORMAL); RBC Morphology NORMAL; Toxic Vacuolation PRESENT
[2024-12-02 13:34] LABS: Microcytosis 1+ (5-14) /OIF; Platelet Morphology Comment NOTE
[2024-12-02 13:35] LABS: Mean Platelet Volume 12.2 fL (9.4-12.4); Platelet Count 392 X10*3/uL (160-400)
[2024-12-02 13:52] LABS: Influenza A PCR NEGATIVE (Negative); Influenza B PCR NEGATIVE (Negative); Resp Syncy Virus RNA Qual PCR NEGATIVE (Negative); SARS COV2 PCR INHOUSE NEGATIVE (Negative)
--- NOTE | 2024-12-02 14:42 | PC.NURSE ---
Pt is at baseline cognition, fever continues but is lowering, IV running slowly in wrist, but IVF and IV antibiotics currently running, provider and MD at bedside to place central line d/t no access and need for CT w/ con. Gtube site looks clean, at this time provider did not want it flushed.
[2024-12-02] MEDS: iohexoL 350 MG/ML 100 ML INFUS..BTL 85 ML IV (16:13)
[2024-12-02 17:36] LABS: Appearance Urine Turbid; Color Urine Yellow; Glucose Urine UA Negative (Negative); Leukocyte Esterase Urine Moderate (2+) (Negative); Nitrite Urine Negative (Negative); UMIC TRIGGER UACC YES; Urine Blood Large (3+) (Negative); Urine Ketones Negative (Negative); Urine Protein 300 (3+) mg/dL (Neg-Trace)
[2024-12-02 18:50] LABS: Bacteria Urine Trace (None Seen); Hyaline Casts Urine 0-2 /LPF (0-2); RBC Urine >20 /HPF (0-2); Squamous Epithelial Cell Urine 0-2 /HPF (0-2); UACC Culture Trigger YES; WBC Urine >50 /HPF (0-5)
--- NOTE | 2024-12-02 19:13 | PC.NURSE ---
assumed care of pt at 19:10. report received from Divya REDDY. iv fluids ordered from 17:30 not administered by previous shift.
--- NOTE | 2024-12-02 19:18 | P.HPHOSP_ITS ---
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 Pt was just discharged from the hospital 2 days prior after being admitted from 11/19-11/30/2024 where he was admitted for sepsis secondary to suspected UTI and pneumonia likely due to aspiration. Was initially started on cefepime and vancomycin, which was changed by ID to p.o. linezolid. During hospital stay pt also was offered tracheostomy due to hx of difficulty handling secretions but he declined. He did have PEG tube placement on 11/[address] Arias. Pt was discharged home on tube feeding. Pt returned to the ED last night after accidentally pulling out his PEG tube. This was replaced by ED physician and since this was his only complaint, discharged back home. Pt presents today after noted to develop fever and tachycardia by caregivers. Pt reports has had some productive cough and SOB, though unclear exactly how long. Pt overall is a poor historian, and does not appear to have any other acute medical complaints. Denies abdominal or suprapubic pain. No chest pain/pressure, palpitations. Reports that suprapubic catheter stopped draining sometime yesterday. ED clinician noted that suprapubic catheter was not draining appropriately and bladder scan showed greater than 800 cc. Pt had suprapubic catheter replaced in the ED and is currently draining appropriately. In the ED pt was febrile up to 103.3, tachycardic up to 167, tachypneic up to 27, satting at 90% on RA. Labs were significant for leukocytosis 38.6, BUN 29, and creatinine 1.03(elevated from 0.52 on 2 days prior on 11/30). Stable H&H. No significant electrolyte abnormalities. Hepatic function baseline. Troponin WNL. BNP WNL. Tested negative for flu, RSV, COVID. CXR showed subsegmental atelectasis vs airspace disease, left lower hemithorax. Chest CTA negative for pulmonary embolus, but showed left greater than right bibasilar pneumonia. CT of abdomen and pelvis found bibasilar pneumonia and findings suggestive of cystitis associated with urinary bladder dilation. EKG demonstrated sinus tachycardia of 166 without evidence of significant ST elevation or depression. ED clinician contacted Cardiology about tachycardia who said treat with IVF and antibiotics, but otherwise no further cardiac intervention indicated at this time. Pt also had central line placed in the ED has a peripheral line could not be established. Pt was treated with acetaminophen, IVF, vancomycin, and cefepime. Pt will be admitted to the hospital for treatment and further evaluation of CAMRYN and sepsis in the setting of acute UTI and acute bibasilar pneumonia. Review of Systems 2 Review of Systems: Negative except for that which is stated in the 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 Microcytic anemia Multiple sclerosis Headache Family History Other No family history of coronary artery disease Surgical History H/O hernia repair Social History Household Members: Family Household Members Other:: parents Housing: Apartment 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 have visiting nurse or other home services: Yes Unable to assess alcohol history related to: Unknown Alcohol intake: never Patient Tobacco Use Status: Former Tobacco user Tobacco use type: Cigarette Cigarettes Per Day: 0.25 Substance Use Type: Marijuana Advance Directives: Yes Advance Directives on File: Yes Advance Directives Date on File: 12/01/24 Do you have a plan to hurt others: No Plan service: No Current occupational status: disabled Meds Allergies Allergy/AdvReac Type Severity Reaction Status Date / Time doxycycline Allergy Rash Verified 12/02/24 12:13 Home Medications ?Medication ?Instructions ?Recorded ?Confirmed ?Last Taken ?Type clindamycin phosphate 1 % lotion 1 appl topical BID 09/10/24 12/02/24 10/10/24 History clotrimazole-betamethasone 1 1 appl topical BID 10/11/24 12/02/24 10/10/24 History %-0.05 % topical cream prednisone 20 mg tablet 20 mg PO DAILY 10/21/24 12/02/24 Unknown History Physical Exam 2 Vital Signs and Narrative: Vital Signs: Last Vital Signs Temp 97.5 F 12/02/24 18:44 Pulse 150 H 12/02/24 18:44 Resp 16 12/02/24 18:44 BP 127/90 H 12/02/24 18:44 Pulse Ox 94 12/02/24 18:44 O2 Del Method Room Air 12/02/24 18:44 O2 Flow Rate 4 12/02/24 12:12 Oxygen Flow Rate 6 12/02/24 12:11 BMI result Body Mass Index 25.2 General: AOx3, no acute distress Resp: Coarse breath sounds bilaterally CVS: S1, S2, regular rhythm, tachycardic GI: +BS, NT, no distention. Peg tube and suprapubic catheter in place Skin: Warm, dry Neuro: Motor grossly intact bilaterally, though with significantly reduced lower leg weakness. Pt is bed-bound Extremities: No edema Psych: Appropriate affect Results Labs 12/02/24 12:52 12/02/24 12:52 Labs: Laboratory Results - last 24 hr 12/02/24 12/02/24 12/02/24 12:50 12:51 12:52 MCV 73.6 L MCH 24.4 L MCHC 33.1 RDW 19.9 H Plt Count 392 D MPV 12.2 Immature Gran % (Auto) Cancelled Neut % (Auto) Cancelled Lymph % (Auto) Cancelled [place] % (Auto) Cancelled Eos % (Auto) Cancelled Baso % (Auto) Cancelled Lymph # (Auto) Cancelled [place] # (Auto) Cancelled Eos # (Auto) Cancelled Baso # (Auto) Cancelled Abs Immat Gran (auto) Cancelled Absolute Neuts (auto) Cancelled Absolute Nucleated RBC 0.000 Nucleated RBC % (auto) 0.0 Neutrophils % (Manual) 91 H Band Neutrophils % 0 L Monocytes % (Manual) 8 Basophils % (Manual) 1 Abs Neuts (Manual) 35.1 H Monocytes # (Manual) 3.1 H Basophils # (Manual) 0.4 H Toxic Vacuolation PRESENT Platelet Estimate NORMAL Large Platelets PRESENT Plt Morphology Comment NOTE RBC Morphology NORMAL Microcytosis 1+ (5-14) VBG pH VBG pCO2 VBG pO2 VBG HCO3 VBG O2 Saturation VBG Base Excess Anion Gap 20 Estim Creat Clear Calc 95.3 Estimated GFR > 60 Random Glucose 163 H Lactic Acid 1.9 Calcium 9.3 Magnesium 2.0 Total Bilirubin 0.7 AST 17 ALT 39 Alkaline Phosphatase 74 B-Natriuretic Peptide 14 Total Protein 7.4 Albumin 3.7 Lipase 9 Urine Color Urine Appearance Urine pH Ur Specific Elizabeth Urine Protein Urine Glucose (UA) Urine Ketones Urine Blood Urine Nitrite Ur Leukocyte Esterase Urine RBC Urine WBC Ur Squamous Epith Cells Urine Bacteria Hyaline Casts Influenza Type A (PCR) NEGATIVE Influenza Type B (PCR) NEGATIVE RSV RNA Qual (PCR) NEGATIVE SARS-CoV-2 RNA (RT-PCR) NEGATIVE 12/02/24 12/02/24 12:58 17:23 MCV MCH MCHC RDW Plt Count MPV Immature Gran % (Auto) Neut % (Auto) Lymph % (Auto) [place] % (Auto) Eos % (Auto) Baso % (Auto) Lymph # (Auto) [place] # (Auto) Eos # (Auto) Baso # (Auto) Abs Immat Gran (auto) Absolute Neuts (auto) Absolute Nucleated RBC Nucleated RBC % (auto) Neutrophils % (Manual) Band Neutrophils % Monocytes % (Manual) Basophils % (Manual) Abs Neuts (Manual) Monocytes # (Manual) Basophils # (Manual) Toxic Vacuolation Platelet Estimate Large Platelets Plt Morphology Comment RBC Morphology Microcytosis VBG pH 7.55 H VBG pCO2 27 VBG pO2 106 VBG HCO3 24 VBG O2 Saturation 99.0 VBG Base Excess 3.5 Anion Gap Estim Creat Clear Calc Estimated GFR Random Glucose Lactic Acid Calcium Magnesium Total Bilirubin AST ALT Alkaline Phosphatase B-Natriuretic Peptide Total Protein Albumin Lipase Urine Color Yellow Urine Appearance Turbid Urine pH 7.0 Ur Specific Elizabeth 1.010 Urine Protein 300 (3+) H Urine Glucose (UA) Negative Urine Ketones Negative Urine Blood Large (3+) H Urine Nitrite Negative Ur Leukocyte Esterase Moderate (2+) H Urine RBC >20 H Urine WBC >50 Ur Squamous Epith Cells 0-2 Urine Bacteria Trace Hyaline Casts 0-2 Influenza Type A (PCR) Influenza Type B (PCR) RSV RNA Qual (PCR) SARS-CoV-2 RNA (RT-PCR) Imaging Radiologist's Impressions: Impressions Chest X-Ray 12/02/24 13:14 IMPRESSION: Subsegmental atelectasis versus airspace disease, left lower hemithorax. Electronically signed by: Alejandro Miguel MD 12/02/2024 01:24 PM EST RP Chest X-Ray 12/02/24 15:35 IMPRESSION: Right-sided central venous line placed ending SVC without gross pneumothorax. 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 Pt will be admitted to the hospital for treatment and further evaluation of CAMRYN and sepsis in the setting of acute UTI and acute bibasilar pneumonia. Acute UTI with sepsis Pt with blocked suprapubic catheter since yesterday, replaced in the ED and draining appropriately UA grossly infected Meets sepsis criteria with tachycardia, tachypnea, and leukocytosis; lactic acid WNL Pt given IVF and started on broad-spectrum antibiotics in the ED Will treat with cefepime and vancomycin, started 12/02/2024 Pt recently completed course of linezolid for UTI ID consult Follow UA cultures Bibasilar pneumonia CTA of chest showing left greater than right bibasilar pneumonia Treat as above with antibiotics Pt with hx of dysphagia and aspiration pneumonia, though currently on PEG tube diet Pt not recorded being hypoxic in the ED Monitor respiratory status CAMRYN Creatinine 1.03 at time of presentation, elevated from 0.52 2 days prior on 11/30/2024 Likely secondary to reduced intake from removed PEG tube Pt received IVF in the ED Will be placed on tube feeding diet with water flushes Q 8 hours Follow creatinine Tachycardia Pt has been in sinus tachycardia as high as the 160s In the setting sepsis from UTI and pneumonia Pt treated with IVF and antibiotics as above ED clinician contacted Cardiology who has had no additional treatment or workup indicated at this time Monitor on telemetry Consider cardiology consult if tachycardia persists Diet Pt with PEG tube placed 11/24/2024 Tube feeding diet with Jevity 1 Kirk NMO/MS or other dymyelinating disease Continue prednisone, scopolamine Mood disorder Continue sertraline Full Code Attending:?Dr. Grimm DVT Prophylaxis: Lovenox Pt will require a hospitalization of at least two nights for treatment of?CAMRYN and sepsis in the setting of acute UTI and bibasilar pneumonia. Pt will require administration of IV antibiotics, IVF, close monitoring of cardiac function and labs, as well as specialist consultation with Infectious Disease. Quality Stroke Does the patient have a stroke diagnosis?: No VTE Prior VTE?: No VTE Risk Level:: Medical - moderate - high VTE Device Contraindication: Treatment Not Indicated VTE Drug Contraindication: N/A - Med Ordered
--- NOTE | 2024-12-02 20:06 | PHA.MEDREC ---
Addendum entered by Keli Arrington RPh 12/02/24 20:39: reviewed by [facility]. Original Note: Pharmacy Consult ? Medication Reconciliation Pharmacy has completed the medication reconciliation. Called patient only contact of file Shadi [phone] . Shadi didn't know what medication patient takes. Shadi stated patient was just here and we should have a list. Patient was just discharged from [facility] 11/30/24. Utilized claims and discharge packet to confirm med list.
--- NOTE | 2024-12-02 20:07 | MHC.EDTECH ---
This pct assumed care of Patient at 1900 ,vitals taken ,Patient was soiled ,care given and bedding change ,Patient belongings list done .All safety measure in Place .
[2024-12-02] MEDS: Enoxaparin Sodium 40 MG/0.4 ML SYRINGE SUBCUT (20:41)
--- NOTE | 2024-12-02 20:44 | PHA.PROG ---
Admission Date/Time: December 02, 2024 20:00 Indication: SEPSIS Weight in k.4 kg Adjusted body weight in Kg: [place] body weight in Kg: Obesity Dosing Indication % IBW: Serum Creatinine - Last 168 Hours 12/02/24 12:52 Creatinine 1.03 Estimated CrCl and GFR - Last 168 Hours 12/02/24 12:52 Estim Creat Clear Calc 95.3 Estimated GFR > 60 Vancomycin Loading Dose: 2000 MG Current Vancomycin Dosing Regimen: 750 MG Q8H Vancomycin Monitoring using AUC goal of 400 - 600 range with trough as surrogate marker: AOR=300 TROUGH=18.9 Date and Time for next Vancomycin Level to be drawn: 12/03/24 @1100 Pharmacist Comments on Vancomycin Plan: Vancomycin dosing will take advantage of [employer] as a clinical decision support tool that uses Bayesian modeling to calculate individual patient's pharmacokinetic parameters and forecast the patient's drug concentration time course with the target goal AUC 24 range of 400 - 600 mg/L/hr.
[2024-12-02] MEDS: Ascorbic Acid 500 MG TABLET G-TUBE (21:24)
[2024-12-02] MEDS: Sennosides 8.6 MG TABLET 17.2 MG G-TUBE (21:24)
[2024-12-02] MEDS: Cyclobenzaprine HCl 10 MG TABLET G-TUBE (21:24)
[2024-12-02] MEDS: Acetaminophen 325 MG TABLET 650 MG G-TUBE (21:25)
[2024-12-02] MEDS: vancomycin HCL 750 MG in 0.9 % Sodium Chloride 250 ML 265 MG IV (21:25)
--- NOTE | 2024-12-02 21:51 | PC.NURSE ---
pt continues to be tachycardic on monitor HR 140s. Pt yelling out asking for ice. given ice chips multiple times. medicated per mar with antibiotics and bedtime meds via g tube. pt cleaned up and linens changed. call villar within reach. plan of care continues. waiting for bed upstairs.
[2024-12-03] VITALS (10 sets, daily range): BP systolic 112–133; BP diastolic 63–97; PULSE 92–140; RESP 15–20; TEMP 36.7–38; O2SAT 96–98; BMI 25.2; BMI 23.9
--- NOTE | 2024-12-03 00:04 | MHC.EDTECH ---
0000 Rounding done ,vitals taken ,Patient was reposition with Pillows and boosted up in bed .mouth care given ,Patient belonging list done ,All safety measure in Place .
[2024-12-03] MEDS: cefEPime HCl/D5W 2 GM/50 ML PIGGYBACK IV ×3 (04:15→21:47)
--- NOTE | 2024-12-03 04:16 | MHC.EDTECH ---
0400 Rounding done ,vitals taken ,am labs drawn ,Patient awake ,mouth care done ,Patient was reposition and boosted up in bed .
[2024-12-03 04:19] LABS: Hemoglobin 12.3 g/dl (14.0-18.0); PLT ABN DIST 1; WBC ABN SCTR FOR CBC 1
[2024-12-03 04:21] LABS: Hematocrit 37.1 % (42.0-52.0); Mean Corpuscular HGB Conc 33.2 g/dl (31.0-36.0); Mean Corpuscular Hemoglobin 24.3 pg (27.0-33.0); Mean Corpuscular Volume 73.3 fL (80.0-98.0); Mean Platelet Volume 11.3 fL (9.4-12.4); Platelet Count 264 X10*3/uL (160-400); Red Blood Count 5.06 X10*6/uL (4.60-5.80)
[2024-12-03 04:26] LABS: White Blood Count 31.3 X10*3/uL (4.8-10.8)
[2024-12-03 04:33] LABS: Anion Gap 14 (12-20); Blood Urea Nitrogen 16 mg/dL (9-16); Calcium 8.5 mg/dL (8.4-10.2); Carbon Dioxide 20 mmol/L (22-29); Chloride 112 mmol/L (96-108); Creatinine Clr Calc Pharmacy 175.3; Estimated Glomerular Filt Rate > 60; Glucose Random 106 mg/dL (60-115); Potassium 3.6 mmol/L (3.3-5.1); Sodium 142 mmol/L (135-145)
[2024-12-03] MEDS: vancomycin HCL 750 MG in 0.9 % Sodium Chloride 250 ML 265 MG IV (05:18)
--- NOTE | 2024-12-03 06:10 | PC.NURSE ---
pt continues to call out help me and appears uncomfortable. ADELINA Yin made aware, asked for something to make him more comfortable/calm
[2024-12-03] MEDS: Morphine Sulfate 4 MG/ML CARTRIDGE IVPUSH ×2 (06:20→11:30)
[2024-12-03] MEDS: 0.9 % Sodium Chloride Flush 3 ML SYRINGE IVFLUSH ×2 (07:39→21:48)
[2024-12-03] MEDS: Cholecalciferol (Vitamin D3) 25 MCG TABLET 50 MCG G-TUBE (08:13)
[2024-12-03] MEDS: predniSONE 20 MG TABLET PO (08:14)
[2024-12-03] MEDS: Scopolamine 1.5 MG PATCH.TD.3 EAR-BEHIND (08:14)
[2024-12-03] MEDS: Cyclobenzaprine HCl 10 MG TABLET G-TUBE ×3 (08:14→21:47)
[2024-12-03] MEDS: Sertraline HCL 50 MG TABLET G-TUBE (08:14)
[2024-12-03] MEDS: Ascorbic Acid 500 MG TABLET G-TUBE ×2 (08:14→21:47)
[2024-12-03 11:36] LABS: Vancomycin Random 10.8 mcg/mL (15-20)
--- NOTE | 2024-12-03 11:48 | HE.PHANOTE ---
RE: vanco Levelon 12/03 came back at 10.8 mg/L. Renal function improved; changed dose to 1250mg Q8H with predicted trough of 16.1mg/L, AUC of 551 mg/L. Next level to be drawn 12/04 @1000
[2024-12-03] MEDS: vancomycin HCL 1,250 MG in 0.9 % Sodium Chloride 250 ML 166.67 MG IV ×2 (11:59→21:47)
--- NOTE | 2024-12-03 13:27 | MHC.CM.PN ---
IMM 12/03/24, CM met with pt in ED along with civil preparedness coordinator. It was difficult to understand him. He did say that he wants to go home. I asked if he had enough help at home and he said he has people that visit him, but he was unsure if they take care of him. 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 His niece did help, but is not available all the time to care for him. CM will discuss further with HCP, but DCP may need to be SNF. CM to follow for DC plan.
[2024-12-03] MEDS: Immune Globulin 10% Gammagard 10 GM/100 ML VIAL IV (13:43)
--- NOTE | 2024-12-03 14:33 | HO.PM.IMPN ---
Subjective Subjective Date of Service: 12/03/24 Interval History: History obtained via child attendant Patient complaining of dry mouth requesting for ice chips, also complaining of back pain Complaining of difficulty speaking due to dry mouth No other acute events overnight Review of Systems All other system reviewed and negative. Physical Exam Vital Signs: Vital Signs: Last Vital Signs Temp 98.3 F 12/03/24 12:20 Pulse 126 H 12/03/24 12:20 Resp 19 12/03/24 12:20 BP 118/78 12/03/24 12:20 Pulse Ox 98 12/03/24 12:20 O2 Del Method Room Air 12/03/24 12:20 O2 Flow Rate 4 12/02/24 12:12 Oxygen Flow Rate 6 12/02/24 12:11 BMI result Body Mass Index 25.2 Const: Other: Gen: quadriparesis , no distress HEENT: sclera anicteric, moist mucus membranes Neck: supple Lungs: diminished Heart: regular rate and rhythm, no murmurs Abd: soft, non-tender, non-distended, peg in place, no surrounding erythema : suprapubic catheter Ext: no edema Skin: warm/well-perfused Neuro: alert and oriented x3, spastic quadraparesis. Psych: appropriate affect Objective Data Active Medications Acetaminophen (Acetaminophen 325 Mg Tablet) 650 mg G-TUBE Q6H PRN PRN Reason: Pain, Mild 1-3,fever,headache Last Admin: 12/02/24 21:25 Dose: 650 mg Documented By: TANA Ascorbic Acid (Ascorbic Acid 500 Mg Tablet) 500 mg G-TUBE BID [facility] Last Admin: 12/03/24 08:14 Dose: 500 mg Documented By: CARMEN Calcium Carbonate (Calcium Carbonate 750 Mg Tab.Chew) 750 mg G-TUBE Q4H PRN PRN Reason: Heartburn Cyclobenzaprine HCl (Cyclobenzaprine Hcl 10 Mg Tablet) 10 mg G-TUBE TID [facility] Last Admin: 12/03/24 08:14 Dose: 10 mg Documented By: CARMEN Enoxaparin Sodium (Enoxaparin Sodium 40 Mg/0.4 Ml Syringe) 40 mg SUBCUT Q24H [facility] Last Admin: 12/02/24 20:41 Dose: 40 mg Documented By: TANA Cefepime HCl (Maxipime) 2 gm in 50 mls @ 100 mls/hr IV Q8H [facility] Last Admin: 12/03/24 11:24 Dose: 100 mls/hr Documented By: CARMEN Vancomycin HCl 1,250 mg/ (Sodium Chloride) 250 mls @ 166.667 mls/hr IV Q8H [facility] Last Infusion: 12/03/24 13:57 Dose: Infused Documented By: CARMEN Immune Globulin (Gammagard 10%) 30 gm in 300 mls @ 38 mls/hr IV Q24H [facility] Stop: 12/07/24 21:54 Immune Globulin (Gammagard 10%) 10 gm in 100 mls @ 38 mls/hr IV ONCE ONE Stop: 12/03/24 16:37 Last Admin: 12/03/24 13:43 Dose: 38 mls/hr Documented By: CARMEN Comments: Lot# [id number] Immune Globulin (Gammagard 10%) 20 gm in 200 mls @ 38 mls/hr IV ONCE ONE Stop: 12/03/24 22:15 Ketorolac Tromethamine (Ketorolac Tromethamine 30 Mg/Ml Vial) 30 mg IVPUSH Q6H PRN PRN Reason: Pain, Moderate(Pain Scale 4-6) Stop: 12/07/24 06:17 Magnesium Hydroxide (Milk Of Magnesia 30 Ml Oral.Susp) 30 ml G-TUBE DAILY PRN PRN Reason: Constipation Melatonin (Melatonin 3 Mg Tablet) 6 mg G-TUBE BEDTIME PRN PRN Reason: Insomnia Morphine Sulfate (Morphine Sulfate 4 Mg/Ml Cartridge) 4 mg IVPUSH Q4H PRN; Protocol PRN Reason: Pain, Severe (Pain Scale 7-10) Last Admin: 12/03/24 11:30 Dose: 4 mg Documented By: CARMEN Ondansetron HCl (Ondansetron Hcl 4 Mg/2 Ml Vial) 4 mg IVPUSH Q8H PRN PRN Reason: Nausea and Vomiting Pharmacy Consult (Consult Rx Vancomycin Dosing) 1 each MISCELLANE DAILY PRN PRN Reason: Consult order Prednisone (Prednisone 20 Mg Tablet) 20 mg PO DAILY [facility] Last Admin: 12/03/24 08:14 Dose: 20 mg Documented By: CARMEN Scopolamine (Scopolamine 1.5 Mg Patch.Td.3) 1.5 mg EAR-BEHIND Q72H [facility] Last Admin: 12/03/24 08:14 Dose: 1.5 mg Documented By: CARMEN Senna (Sennosides 8.6 Mg Tablet) 17.2 mg G-TUBE BEDTIME [facility] Last Admin: 12/02/24 21:24 Dose: 17.2 mg Documented By: TANA Sertraline HCl (Sertraline Hcl 50 Mg Tablet) 50 mg G-TUBE DAILY [facility] Last Admin: 12/03/24 08:14 Dose: 50 mg Documented By: CARMEN Sodium Chloride (0.9 % Sodium Chloride Flush 3 Ml Syringe) 3 ml IVFLUSH QSHIFT [facility] Last Admin: 12/03/24 07:39 Dose: 3 ml Documented By: CARMEN Vitamin D (Cholecalciferol (Vitamin D3) 25 Mcg Tablet) 50 mcg G-TUBE DAILY [facility] Last Admin: 12/03/24 08:13 Dose: 50 mcg Documented By: CARMEN Labs 12/03/24 04:15 12/03/24 04:15 Labs: Laboratory Results - last 24 hr 12/02/24 12/02/24 12/03/24 12:52 17:23 04:15 MCV 73.3 L MCH 24.3 L MCHC 33.2 RDW 19.0 H Plt Count 264 D MPV 11.3 Absolute Nucleated RBC 0.000 Nucleated RBC % (auto) 0.0 Smear Path Review SEE NOTE Anion Gap 14 Estim Creat Clear Calc 175.3 Estimated GFR > 60 Random Glucose 106 Calcium 8.5 D Urine Color Yellow Urine Appearance Turbid Urine pH 7.0 Ur Specific [place] 1.010 Urine Protein 300 (3+) H Urine Glucose (UA) Negative Urine Ketones Negative Urine Blood Large (3+) H Urine Nitrite Negative Ur Leukocyte Esterase Moderate (2+) H Urine RBC >20 H Urine WBC >50 Ur Squamous Epith Cells 0-2 Urine Bacteria Trace Hyaline Casts 0-2 Random Vancomycin 12/03/24 11:15 MCV MCH MCHC RDW Plt Count MPV Absolute Nucleated RBC Nucleated RBC % (auto) Smear Path Review Anion Gap Estim Creat Clear Calc Estimated GFR Random Glucose Calcium Urine Color Urine Appearance Urine pH Ur Specific [place] Urine Protein Urine Glucose (UA) Urine Ketones Urine Blood Urine Nitrite Ur Leukocyte Esterase Urine RBC Urine WBC Ur Squamous Epith Cells Urine Bacteria Hyaline Casts Random Vancomycin 10.8 L Microbiology Microbiology Results: Microbiology 12/02/24 17:23 Urine Culture - Preliminary Urine Catheterized - Villatoro Catheter Culture in progress. 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 Pt will be admitted to the hospital for treatment and further evaluation of CAMRYN and sepsis in the setting of acute UTI and acute bibasilar pneumonia. Acute UTI with sepsis Presented with blocked suprapubic catheter x 1 day, replaced in the ED and draining appropriately Meets sepsis criteria with tachycardia, tachypnea, and leukocytosis; lactic acid WNL s/p IVF ,cont. iv cefepime and vancomycin, started 12/02/2024 Pt recently completed course of linezolid for UTI ID consult Follow urine/blood cultures Bibasilar pneumonia CTA of chest showing left greater than right bibasilar pneumonia Leukocytosis trending down likely due to steroids/infection Continue IV antibiotics as above hx of dysphagia and aspiration pneumonia, though currently on PEG tube diet Being followed by speech therapy they recommend to continue NPO CAMRYN Creatinine 1.03 at time of presentation, elevated from 0.52 2 days prior on 11/30/2024 Likely secondary to reduced intake from removed PEG tube Pt received IVF in the ED Will be placed on tube feeding diet with water flushes Q 8 hours Follow creatinine Sinus Tachycardia Multifactorial in the setting sepsis from UTI and pneumonia/anxiety dehydration IV fluid/treat infection/ Monitor on telemetry Consider cardiology consult if tachycardia persists Diet PEG tube placed 11/24/2024 Tube feeding diet with Jevity 1 Kirk/speech recommend NPO NMO/MS or other dymyelinating disease Status post recent LP, CSF fluid folic or clonal bands negative Case discussed with Dr. Huber he recommend IVIG x5 days, Continue prednisone, scopolamine Mood disorder Continue sertraline Full Code DVT Prophylaxis: Lovenox Pt will require continued inpatient for treatment of?CAMRYN and sepsis in the setting of acute UTI and bibasilar pneumonia. Pt will require administration of IV antibiotics, IVF, close monitoring of cardiac function and labs, as well as specialist consultation with Infectious Disease. Quality Stroke Does the patient have a stroke diagnosis?: No VTE Prior VTE?: No VTE Risk Level:: Medical - moderate - high VTE Device Contraindication: Treatment Not Indicated VTE Drug Contraindication: N/A - Med Ordered
[2024-12-03] MEDS: Lactated Ringers 1,000 ML 100 ML IVCONT (15:23)
--- NOTE | 2024-12-03 16:36 | MHC.CLN ---
NUTRITION RECENTLY DISCHARGED FROM [facility] WITH NEW PEG TUBE FEEDING WITH PEG PLACED 11/24. RECOMMEND TUBE FEEDING PER DISCHARGE. JEVITY 1.0 AT 85 ML PER HOUR, FREE WATER FLUSHES 240 ML Q 8 HOURS. PROVIDES 2162 KCALS (27.9 KCALS/KG), 90 G PROTEIN (1.16 G/KG), 2433 ML TOTAL FREE WATER FROM FORMULA AND FLUSH (31.3 ML/KG). MONITOR FOR TUBE FEED TOLERANCE. SEE CLINICAL NUTRITION ASSESSMENT 12/03/24
--- NOTE | 2024-12-03 17:52 | MHC.SPEECHCO ---
Patient w/ recent admission for sespis and UTI. Patient seen by PARENTING SKILLS INSTRUCTOR during prior admission d/t significant difficulty swallowing and managing secretions. MBSS 11/19 revealed severe oropharyngeal dysphagia, marked by delayed AP transport, significantly delayed pharyngeal swallow trigger, incomplete laryngeal elevation, absent epiglottic inversion and partial to no laryngeal vestibular closure. Patient w/ compromised airway protection with aspiration on honey thick and puree consistencies. Minimal to no pharyngeal clearance with significant pooling in the pyriform sinuses and marked obstruction of flow through the PES. PARENTING SKILLS INSTRUCTOR recommended NPO status, consult for alternate means of nutrition. He had PEG placed on 11/24 and was d/c home on 11/30 with tube feeds and referral for VNA, to include continued speech therapy. While in the hospital, patient was advised to possibly have a tracheostomy d/t difficulty managing secretions but patient declined. Patient returned to the ED on 12/01 after accidentally pulling out his PEG tube. PEG was replaced by ED physician and patient was discharged home. He returned 12/02 after he developed fever and tachycardia per caregivers. Suprapubic catheter was also replaced in the ED, Chest CTA showed, [id number] bibasilar pneumonia. Patient is subsequently admitted for CAMRYN and sepsis in setting of acute UTI and acute bibasliar PNA. Order received for PARENTING SKILLS INSTRUCTOR consult, per Dr. Casas, dysphagia NPO on g-tube requesting for ice chips. PARENTING SKILLS INSTRUCTOR discussed case w/ Dr. Casas on unit. Dr. Casas requested PARENTING SKILLS INSTRUCTOR give patient ice chips, as patient has been complaining of dry mouth and difficulty speaking d/t dry mouth. Patient presented with thick, dried, brownish secretions on lips, teeth, and in both cheeks. HoB was elevated upright and pillows adjusted as requested by patient. Patient was provided with oral care, dried secretions removed and oral moisturizer applied to lips. Patient tolerated 4/4 ice chips. He chewed on the ice and swallowed after a moderate delay. Note partial laryngeal elevation and multiple swallow attempts which appeared effortful for the patient. No subsequent coughing or change in voice. Patient did not appear to be in any distress. Patient's mouth appeared more moisturized and patient expressed he felt more comfortable. Patient to be provided with ice chips by RN or PARENTING SKILLS INSTRUCTOR only, to moisten oral cavity and make patient more comfortable/ therapeutically to increase swallow frequency. Patient must be awake and alert for presentation of ice chips, elevate HoB to optimal position at 90 degrees. Thorough oral care must be provided beforehand. Discontinue ice chips if patient evidences any overt s/s of aspiration (coughing, throat clearing, teary eyes, change in 02 sat, upper respiratory noise) or change to respiratory status. PARENTING SKILLS INSTRUCTOR will continue to follow.
--- NOTE | 2024-12-03 17:55 | W.PM.IDCN ---
History of Present Illness Data of Consult Service Date: 12/03/24 Requesting physician: Romelia Casas Primary Care Provider: MD TIKA Brock Reason for consult: left pneumonia He presents with fever and chills for a day. He had pulled out peg feeding tube. He has MS and neuromyelitis optica. He is not very mobile. 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 Microcytic anemia Multiple sclerosis Headache Family History Family History Other No family history of coronary artery disease Family history: reviewed and not pertinent Surgical History Surgical History H/O hernia repair Social History Social History Household Members: Family Household Members Other:: parents Housing: Apartment 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 have visiting nurse or other home services: Yes Unable to assess alcohol history related to: Unknown Alcohol intake: never Patient Tobacco Use Status: Former Tobacco user Tobacco use type: Cigarette Cigarettes Per Day: 0.25 Substance Use Type: Marijuana Advance Directives Date on File: 12/01/24 service: No Current occupational status: disabled Meds Allergies Allergy/AdvReac Type Severity Reaction Status Date / Time doxycycline Allergy Rash Verified 12/02/24 12:13 Active Medications: Current Medications Acetaminophen (Acetaminophen 325 Mg Tablet) 650 mg G-TUBE Q6H PRN PRN Reason: Pain, Mild 1-3,fever,headache Last Admin: 12/02/24 21:25 Dose: 650 mg Ascorbic Acid (Ascorbic Acid 500 Mg Tablet) 500 mg G-TUBE BID [facility] Last Admin: 12/03/24 08:14 Dose: 500 mg Calcium Carbonate (Calcium Carbonate 750 Mg Tab.Chew) 750 mg G-TUBE Q4H PRN PRN Reason: Heartburn Cyclobenzaprine HCl (Cyclobenzaprine Hcl 10 Mg Tablet) 10 mg G-TUBE TID [facility] Last Admin: 12/03/24 15:21 Dose: 10 mg Enoxaparin Sodium (Enoxaparin Sodium 40 Mg/0.4 Ml Syringe) 40 mg SUBCUT Q24H [facility] Last Admin: 12/02/24 20:41 Dose: 40 mg Cefepime HCl (Maxipime) 2 gm in 50 mls @ 100 mls/hr IV Q8H [facility] Last Infusion: 12/03/24 12:30 Dose: Infused Vancomycin HCl 1,250 mg/ (Sodium Chloride) 250 mls @ 166.667 mls/hr IV Q8H [facility] Last Infusion: 12/03/24 13:57 Dose: Infused Immune Globulin (Gammagard 10%) 30 gm in 300 mls @ 38 mls/hr IV Q24H [facility] Stop: 12/07/24 21:54 Immune Globulin (Gammagard 10%) 20 gm in 200 mls @ 38 mls/hr IV ONCE ONE Stop: 12/03/24 22:15 Lactated Ringer's (Lr) 1,000 mls @ 100 mls/hr IVCONT .Q10H [facility] Stop: 12/04/24 00:59 Last Admin: 12/03/24 15:23 Dose: 100 mls/hr Ketorolac Tromethamine (Ketorolac Tromethamine 30 Mg/Ml Vial) 30 mg IVPUSH Q6H PRN PRN Reason: Pain, Moderate(Pain Scale 4-6) Stop: 12/07/24 06:17 Magnesium Hydroxide (Milk Of Magnesia 30 Ml Oral.Susp) 30 ml G-TUBE DAILY PRN PRN Reason: Constipation Melatonin (Melatonin 3 Mg Tablet) 6 mg G-TUBE BEDTIME PRN PRN Reason: Insomnia Morphine Sulfate (Morphine Sulfate 4 Mg/Ml Cartridge) 4 mg IVPUSH Q4H PRN; Protocol PRN Reason: Pain, Severe (Pain Scale 7-10) Last Admin: 12/03/24 11:30 Dose: 4 mg Ondansetron HCl (Ondansetron Hcl 4 Mg/2 Ml Vial) 4 mg IVPUSH Q8H PRN PRN Reason: Nausea and Vomiting Pharmacy Consult (Consult Rx Vancomycin Dosing) 1 each MISCELLANE DAILY PRN PRN Reason: Consult order Prednisone (Prednisone 20 Mg Tablet) 20 mg PO DAILY [facility] Last Admin: 12/03/24 08:14 Dose: 20 mg Scopolamine (Scopolamine 1.5 Mg Patch.Td.3) 1.5 mg EAR-BEHIND Q72H [facility] Last Admin: 12/03/24 08:14 Dose: 1.5 mg Senna (Sennosides 8.6 Mg Tablet) 17.2 mg G-TUBE BEDTIME [facility] Last Admin: 12/02/24 21:24 Dose: 17.2 mg Sertraline HCl (Sertraline Hcl 50 Mg Tablet) 50 mg G-TUBE DAILY [facility] Last Admin: 12/03/24 08:14 Dose: 50 mg Sodium Chloride (0.9 % Sodium Chloride Flush 3 Ml Syringe) 3 ml IVFLUSH QSHIFT [facility] Last Admin: 12/03/24 15:28 Dose: Not Given Vitamin D (Cholecalciferol (Vitamin D3) 25 Mcg Tablet) 50 mcg G-TUBE DAILY [facility] Last Admin: 12/03/24 08:13 Dose: 50 mcg Home Medications ?Medication ?Instructions ?Recorded ?Confirmed ?Last Taken ?Type clindamycin phosphate 1 % lotion 1 appl topical BID 09/10/24 12/02/24 10/10/24 History clotrimazole-betamethasone 1 1 appl topical BID 10/11/24 12/02/24 10/10/24 History %-0.05 % topical cream prednisone 20 mg tablet 20 mg PO DAILY 10/21/24 12/02/24 Unknown History Physical Exam Vital Signs: Vital Signs: Last Vital Signs Temp 98.2 F 12/03/24 17:30 Pulse 106 H 12/03/24 17:30 Resp 18 12/03/24 17:30 BP 119/77 12/03/24 17:30 Pulse Ox 98 12/03/24 17:30 O2 Del Method Room Air 12/03/24 17:30 O2 Flow Rate 4 12/02/24 12:12 Oxygen Flow Rate 6 12/02/24 12:11 BMI result Body Mass Index 25.2 Const: General: cooperative HEENT: Head: Yes normal to inspection Face and sinus: Yes normal facial exam Mouth: Normal oral and palatal mucosa present Teeth and gingiva: dentition normal Eyes: General: appearance normal, both eyes and all related structures Pupils: Equal, round and reactive pupils present Resp: Effort & Inspection: normal respiratory effort Cardio: Rate: regular rate Rhythm: regular rhythm GI: Palpation (GI): Soft to palpation and nontender : General: Yes no CVA tenderness Back/Spine/Pelvis: Back: no CVA tenderness Skin: General skin exam: no rashes or lesions noted Neuro: General: moves all extremities Cranial nerves: Yes Equal, round and reactive pupils present Extrem: General: Yes normal to inspection Psych: Other: somnolent Results Labs 12/03/24 04:15 12/03/24 04:15 Labs: Short CBC 12/03/24 Range/Units 04:15 WBC 31.3 H* (4.8-10.8) X10*3/uL Hgb 12.3 L (14.0-18.0) g/dl Hct 37.1 L (42.0-52.0) % Plt Count 264 D (160-400) X10*3/uL BMP 12/03/24 04:15 Sodium 142 Potassium 3.6 Chloride 112 H Carbon Dioxide 20 L BUN 16 Creatinine 0.56 Calcium 8.5 D Microbiology Microbiology Results: Microbiology 12/02/24 12:46 Blood - Venous Blood Culture - Preliminary No growth after 24 hours. 12/02/24 12:46 Blood - Venous Blood Culture - Preliminary No growth after 24 hours. 12/02/24 17:23 Urine Catheterized - Villatoro Catheter Urine Culture - Preliminary Culture in progress. Assessment and Plan (1) Tachycardia: Status: Acute (2) Sepsis: Status: Acute Plan Pneumonia,possible aspiration. He is on Cefepime and Vancomycin Would stop Vancomycin if nasal MRSA neg otherwise 3-5 d IV antibiotics and then possible azithromycin for five days. If worsens add Doxycycline 100 mg bid.
[2024-12-03] MEDS: Immune Globulin 10% Gammagard 20 GM/200 ML VIAL IV (18:04)
[2024-12-03] MEDS: Enoxaparin Sodium 40 MG/0.4 ML SYRINGE SUBCUT (21:46)
[2024-12-03] MEDS: Sennosides 8.6 MG TABLET 17.2 MG G-TUBE (21:47)
[2024-12-03] MEDS: Melatonin 3 MG TABLET 6 MG G-TUBE (22:11)
[2024-12-04] VITALS (7 sets, daily range): BP systolic 111–161; BP diastolic 68–86; PULSE 73–144; RESP 17–20; TEMP 36.4–39.1; O2SAT 91–96
--- NOTE | 2024-12-04 | ECG_ITS ---
Test Reason : cp Blood Pressure : */* mmHG Vent. Rate : 100 BPM Atrial Rate : 100 BPM P-R Int : 154 ms QRS Dur : 86 ms QT Int : 336 ms P-R-T Axes : 68 -12 96 degrees QTcB Int : 433 ms Normal sinus rhythm Nonspecific ST and T wave abnormality Abnormal ECG When compared with ECG of 02-Dec-2024 12:14, Vent. rate has decreased by 66 bpm T wave amplitude has decreased in Anterior leads Referred By: Romelia Casas Electronically Signed By: TOAN FAM
[2024-12-04] MEDS: cefEPime HCl/D5W 2 GM/50 ML PIGGYBACK IV ×3 (03:50→21:52)
[2024-12-04] MEDS: vancomycin HCL 1,250 MG in 0.9 % Sodium Chloride 250 ML 166.67 MG IV ×3 (03:50→21:52)
[2024-12-04 07:46] LABS: Hematocrit 27.6 % (42.0-52.0); Hemoglobin 9.3 g/dl (14.0-18.0); Mean Corpuscular HGB Conc 33.7 g/dl (31.0-36.0); Mean Corpuscular Hemoglobin 24.8 pg (27.0-33.0); Mean Corpuscular Volume 73.6 fL (80.0-98.0); Mean Platelet Volume 11.9 fL (9.4-12.4); Platelet Count 192 X10*3/uL (160-400); Red Blood Count 3.75 X10*6/uL (4.60-5.80); Red Cell Distribution Width 18.5 % (11.0-16.0)
[2024-12-04 08:04] LABS: Blood Urea Nitrogen 7 mg/dL (9-16); Calcium 8.1 mg/dL (8.4-10.2); Creatinine Clr Calc Pharmacy 239.4; Estimated Glomerular Filt Rate > 60; Glucose Random 110 mg/dL (60-115)
[2024-12-04 08:18] LABS: Free T4 (Free Thyroxine) 1.45 ng/dL (0.71-1.85)
[2024-12-04 08:27] LABS: Anion Gap 11 (12-20); Carbon Dioxide 21 mmol/L (22-29); Chloride 109 mmol/L (96-108); Potassium 2.9 mmol/L (3.3-5.1); Sodium 138 mmol/L (135-145)
[2024-12-04] MEDS: Cholecalciferol (Vitamin D3) 25 MCG TABLET 50 MCG G-TUBE (09:30)
[2024-12-04] MEDS: Cyclobenzaprine HCl 10 MG TABLET G-TUBE ×3 (09:30→21:52)
[2024-12-04] MEDS: Ascorbic Acid 500 MG TABLET G-TUBE ×2 (09:30→21:53)
[2024-12-04] MEDS: predniSONE 20 MG TABLET PO (09:30)
--- NOTE | 2024-12-04 10:21 | HO.PM.IMPN ---
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 Review of Systems All all other system reviewed and are negative Physical Exam Vital Signs: Vital Signs: Last Vital Signs Temp 99.0 F 12/04/24 07:31 Pulse 114 H 12/04/24 07:31 Resp 18 12/04/24 07:31 BP 118/74 12/04/24 07:31 Pulse Ox 91 L 12/04/24 07:31 O2 Del Method Room Air 12/04/24 07:31 O2 Flow Rate 4 12/02/24 12:12 Oxygen Flow Rate 6 12/02/24 12:11 BMI result Body Mass Index 23.9 Const: Other: Gen: quadriparesis , no distress, no respiratory distress HEENT: sclera anicteric, dry mucus membranes Neck: supple Lungs: diminished, no crackles, no rhonchi Heart: regular rate and rhythm, no murmurs Abd: soft, non-tender, non-distended, peg in place, no surrounding erythema : suprapubic catheter Ext: no edema Skin: warm/well-perfused Neuro: alert and oriented x3, spastic quadraparesis,. Psych: appropriate affect Objective Data Active Medications Acetaminophen (Acetaminophen 325 Mg Tablet) 650 mg G-TUBE Q6H PRN PRN Reason: Pain, Mild 1-3,fever,headache Last Admin: 12/02/24 21:25 Dose: 650 mg Documented By: TANA Ascorbic Acid (Ascorbic Acid 500 Mg Tablet) 500 mg G-TUBE BID [facility] Last Admin: 12/04/24 09:30 Dose: 500 mg Documented By: REJI Calcium Carbonate (Calcium Carbonate 750 Mg Tab.Chew) 750 mg G-TUBE Q4H PRN PRN Reason: Heartburn Cyclobenzaprine HCl (Cyclobenzaprine Hcl 10 Mg Tablet) 10 mg G-TUBE TID [facility] Last Admin: 12/04/24 09:30 Dose: 10 mg Documented By: REJI Enoxaparin Sodium (Enoxaparin Sodium 40 Mg/0.4 Ml Syringe) 40 mg SUBCUT Q24H [facility] Last Admin: 12/03/24 21:46 Dose: 40 mg Documented By: CECILE Cefepime HCl (Maxipime) 2 gm in 50 mls @ 100 mls/hr IV Q8H [facility] Last Infusion: 12/04/24 04:33 Dose: Infused Documented By: CECILE Vancomycin HCl 1,250 mg/ (Sodium Chloride) 250 mls @ 166.667 mls/hr IV Q8H [facility] Last Infusion: 12/04/24 05:57 Dose: Infused Documented By: CECILE Immune Globulin (Gammagard 10%) 30 gm in 300 mls @ 38 mls/hr IV Q24H [facility] Stop: 12/07/24 21:54 Ketorolac Tromethamine (Ketorolac Tromethamine 30 Mg/Ml Vial) 30 mg IVPUSH Q6H PRN PRN Reason: Pain, Moderate(Pain Scale 4-6) Stop: 12/07/24 06:17 Magnesium Hydroxide (Milk Of Magnesia 30 Ml Oral.Susp) 30 ml G-TUBE DAILY PRN PRN Reason: Constipation Melatonin (Melatonin 3 Mg Tablet) 6 mg G-TUBE BEDTIME PRN PRN Reason: Insomnia Last Admin: 12/03/24 22:11 Dose: 6 mg Documented By: CECILE Morphine Sulfate (Morphine Sulfate 4 Mg/Ml Cartridge) 4 mg IVPUSH Q4H PRN; Protocol PRN Reason: Pain, Severe (Pain Scale 7-10) Last Admin: 12/03/24 11:30 Dose: 4 mg Documented By: CARMEN Ondansetron HCl (Ondansetron Hcl 4 Mg/2 Ml Vial) 4 mg IVPUSH Q8H PRN PRN Reason: Nausea and Vomiting Pharmacy Consult (Consult Rx Vancomycin Dosing) 1 each MISCELLANE DAILY PRN PRN Reason: Consult order Potassium Chloride (Potassium Chloride Packet 20 Meq Packet) 40 meq G-TUBE Q4H [facility] Stop: 12/04/24 14:31 Prednisone (Prednisone 20 Mg Tablet) 20 mg PO DAILY [facility] Last Admin: 12/04/24 09:30 Dose: 20 mg Documented By: REJI Senna (Sennosides 8.6 Mg Tablet) 17.2 mg G-TUBE BEDTIME [facility] Last Admin: 12/03/24 21:47 Dose: 17.2 mg Documented By: HO.N-JOZEB Sertraline HCl (Sertraline Hcl 50 Mg Tablet) 50 mg G-TUBE DAILY [facility] Last Admin: 12/04/24 09:34 Dose: Not Given Documented By: REJI Non-Admin Reason: Patient Refused Sodium Chloride (0.9 % Sodium Chloride Flush 3 Ml Syringe) 3 ml IVFLUSH QSHIFT [facility] Last Admin: 12/04/24 09:16 Dose: Not Given Documented By: REJI Non-Admin Reason: IV Running Vitamin D (Cholecalciferol (Vitamin D3) 25 Mcg Tablet) 50 mcg G-TUBE DAILY [facility] Last Admin: 12/04/24 09:30 Dose: 50 mcg Documented By: REJI Labs 12/04/24 07:34 12/04/24 07:34 Labs: Laboratory Results - last 24 hr 12/03/24 12/04/24 11:15 07:34 MCV 73.6 L MCH 24.8 L MCHC 33.7 RDW 18.5 H Plt Count 192 D MPV 11.9 Absolute Nucleated RBC 0.000 Nucleated RBC % (auto) 0.0 Anion Gap 11 L Estim Creat Clear Calc 239.4 Estimated GFR > 60 Random Glucose 110 Calcium 8.1 L Free T4 1.45 Random Vancomycin 10.8 L Microbiology Microbiology Results: Microbiology 12/02/24 12:46 Blood Culture - Preliminary Blood - Venous No growth after 24 hours. 12/02/24 12:46 Blood Culture - Preliminary Blood - Venous No growth after 24 hours. 12/02/24 17:23 Urine Culture - Preliminary Urine Catheterized - Villatoro Catheter Culture in progress. 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 Pt will be admitted to the hospital for treatment and further evaluation of CAMRYN and sepsis in the setting of acute UTI and acute bibasilar pneumonia. Acute UTI with sepsis Presented with blocked suprapubic catheter x 1 day, replaced in the ED Meets sepsis criteria with tachycardia, tachypnea, and leukocytosis; lactic acid WNL s/p IVF ,cont. iv cefepime and vancomycin, started 12/02/2024 Pt recently completed course of linezolid for UTI Id recommend to continue current antibiotics for 3-5 days, and to stop vancomycin if MRSA nares negative, after IV azithromycin for 5 days, if worsens to add doxycycline 100 mg b.i.d. urine/blood cultures pending/WBC trending down Bibasilar pneumonia CTA of chest showing left greater than right bibasilar pneumonia Leukocytosis trending down likely due to steroids/infection Continue IV antibiotics as above hx of dysphagia and aspiration pneumonia, currently on PEG tube diet Being followed by speech therapy they recommend to continue NPO/ice chips to moisten oral cavity only CAMRYN Creatinine 1.03 at time of presentation, elevated from 0.52 2 days prior on 11/30/2024 Likely secondary to reduced intake from removed PEG tube Pt received IVF in the ED Will be placed on tube feeding diet with water flushes Q 8 hours Follow creatinine Acute hypokalemia will replete and follow labs Sinus Tachycardia Multifactorial in the setting sepsis from UTI and pneumonia/anxiety dehydration IV fluid/treat infection/ Monitor on telemetry Tachycardia improved overnight with reoccurred this morning Diet PEG tube placed 11/24/2024 Tube feeding diet with Jevity 1 Kirk/speech recommend NPO NMO/MS or other dymyelinating disease Status post recent LP, CSF fluid oligoclonal bands negative Case discussed with Dr. Huber he recommend IVIG x5 days, day 2/5 , Continue prednisone, DC scopolamine due to xerostomia, no significant secretions noted. Mood disorder Continue sertraline Full Code DVT Prophylaxis: Lovenox Pt will require continued inpatient for treatment of?CAMRYN and sepsis in the setting of acute UTI and bibasilar pneumonia. Pt will require administration of IV antibiotics, IVF, close monitoring of cardiac function and labs, as well as specialist consultation Treatment can not be provided in less acute setting. Quality Stroke Does the patient have a stroke diagnosis?: No VTE Prior VTE?: No VTE Risk Level:: Medical - moderate - high VTE Device Contraindication: Treatment Not Indicated VTE Drug Contraindication: N/A - Med Ordered
[2024-12-04 10:25] LABS: Vancomycin Trough 15.7 mcg/mL (10.0-20.0)
--- NOTE | 2024-12-04 10:59 | MHC.SLORD ---
Speech Language Pathology Order Status: MD and RN consulted, pt remains NPO strict, with minimal ice chips only when MD, RN or AREA SAFETY MANAGER administers. Pt c/o dry mouth, one ice chip provided, pt cued by MD to allow ice to melt, AREA SAFETY MANAGER swabbed surface of pt mouth. Pt c/o pain in his back and difficulty breathing. Pt on 5L NC, MD/RN/RT adjusting O2 in accordance with pt status. AREA SAFETY MANAGER continues to follow while inpatient and upon d/c given nature and severity of pharyngeal dysphagia.
[2024-12-04] MEDS: Lactated Ringers 1,000 ML 100 ML IVCONT (11:08)
[2024-12-04] MEDS: Potassium Chloride Packet 20 MEQ PACKET 40 MEQ G-TUBE ×2 (11:08→13:54)
[2024-12-04 13:28] LABS: MRSA Nasal PCR NEGATIVE (Negative); SA Nasal PCR NEGATIVE (Negative)
[2024-12-04] MEDS: Acetaminophen 325 MG TABLET 650 MG G-TUBE (13:54)
[2024-12-04] MEDS: LORazepam 2 MG/ML VIAL 0.25 MG IVPUSH (13:55)
--- NOTE | 2024-12-04 14:01 | P.CNNE_ITS ---
History of Present Illness Data of Consult Service Date: 12/04/24 Primary Care Provider: MD TIKA Brock Reason for consult: Demyelinating disease 39 years old unfortunate man with at yet not fully define central nervous system demyelinating type of disease which was atypical for diagnosis of multiple sclerosis and neuromyelitis optica though either was a possibility. More recently have considered possibility of autoimmune encephalitis of the type with brainstem predilection. He was recently admitted for multiple complications and was readmitted again. Apparently, he previously has been treated with Rituxan and IVIG Review of Systems 2 Review of Systems: Unable to provide history except stating ?please help me? 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 Microcytic anemia Multiple sclerosis Headache Family History Family History Other No family history of coronary artery disease Family history: reviewed and not pertinent Surgical History Surgical History H/O hernia repair Social History Social History Household Members: Family Household Members Other:: parents Housing: Apartment 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 have visiting nurse or other home services: Yes Unable to assess alcohol history related to: Unknown Alcohol intake: never Patient Tobacco Use Status: Former Tobacco user Tobacco use type: Cigarette Cigarettes Per Day: 0.25 Substance Use Type: Marijuana Advance Directives Date on File: 12/01/24 service: No Current occupational status: disabled Meds Allergies Allergy/AdvReac Type Severity Reaction Status Date / Time doxycycline Allergy Rash Verified 12/02/24 12:13 Active Medications: Current Medications Acetaminophen (Acetaminophen 325 Mg Tablet) 650 mg G-TUBE Q6H PRN PRN Reason: Pain, Mild 1-3,fever,headache Last Admin: 12/04/24 13:54 Dose: 650 mg Ascorbic Acid (Ascorbic Acid 500 Mg Tablet) 500 mg G-TUBE BID [facility] Last Admin: 12/04/24 09:30 Dose: 500 mg Calcium Carbonate (Calcium Carbonate 750 Mg Tab.Chew) 750 mg G-TUBE Q4H PRN PRN Reason: Heartburn Cyclobenzaprine HCl (Cyclobenzaprine Hcl 10 Mg Tablet) 10 mg G-TUBE TID [facility] Last Admin: 12/04/24 13:54 Dose: 10 mg Enoxaparin Sodium (Enoxaparin Sodium 40 Mg/0.4 Ml Syringe) 40 mg SUBCUT Q24H [facility] Last Admin: 12/03/24 21:46 Dose: 40 mg Cefepime HCl (Maxipime) 2 gm in 50 mls @ 100 mls/hr IV Q8H [facility] Last Infusion: 12/04/24 11:44 Dose: Infused Vancomycin HCl 1,250 mg/ (Sodium Chloride) 250 mls @ 166.667 mls/hr IV Q8H [facility] Last Infusion: 12/04/24 12:39 Dose: Infused Immune Globulin (Gammagard 10%) 30 gm in 300 mls @ 38 mls/hr IV Q24H [facility] Stop: 12/07/24 21:54 Lactated Ringer's (Lr) 1,000 mls @ 100 mls/hr IVCONT .Q10H [facility] Stop: 12/04/24 20:29 Last Admin: 12/04/24 11:08 Dose: 100 mls/hr Ketorolac Tromethamine (Ketorolac Tromethamine 30 Mg/Ml Vial) 30 mg IVPUSH Q6H PRN PRN Reason: Pain, Moderate(Pain Scale 4-6) Stop: 12/07/24 06:17 Magnesium Hydroxide (Milk Of Magnesia 30 Ml Oral.Susp) 30 ml G-TUBE DAILY PRN PRN Reason: Constipation Melatonin (Melatonin 3 Mg Tablet) 6 mg G-TUBE BEDTIME PRN PRN Reason: Insomnia Last Admin: 12/03/24 22:11 Dose: 6 mg Morphine Sulfate (Morphine Sulfate 4 Mg/Ml Cartridge) 4 mg IVPUSH Q4H PRN; Protocol PRN Reason: Pain, Severe (Pain Scale 7-10) Last Admin: 12/03/24 11:30 Dose: 4 mg Ondansetron HCl (Ondansetron Hcl 4 Mg/2 Ml Vial) 4 mg IVPUSH Q8H PRN PRN Reason: Nausea and Vomiting Pharmacy Consult (Consult Rx Vancomycin Dosing) 1 each MISCELLANE DAILY PRN PRN Reason: Consult order Potassium Chloride (Potassium Chloride Packet 20 Meq Packet) 40 meq G-TUBE Q4H [facility] Stop: 12/04/24 14:31 Last Admin: 12/04/24 13:54 Dose: 40 meq Prednisone (Prednisone 20 Mg Tablet) 20 mg PO DAILY [facility] Last Admin: 12/04/24 09:30 Dose: 20 mg Senna (Sennosides 8.6 Mg Tablet) 17.2 mg G-TUBE BEDTIME [facility] Last Admin: 12/03/24 21:47 Dose: 17.2 mg Sertraline HCl (Sertraline Hcl 50 Mg Tablet) 50 mg G-TUBE DAILY [facility] Last Admin: 12/04/24 09:34 Dose: Not Given Sodium Chloride (0.9 % Sodium Chloride Flush 3 Ml Syringe) 3 ml IVFLUSH QSHIFT [facility] Last Admin: 12/04/24 09:16 Dose: Not Given Vitamin D (Cholecalciferol (Vitamin D3) 25 Mcg Tablet) 50 mcg G-TUBE DAILY [facility] Last Admin: 12/04/24 09:30 Dose: 50 mcg Home Medications ?Medication ?Instructions ?Recorded ?Confirmed ?Last Taken ?Type clindamycin phosphate 1 % lotion 1 appl topical BID 09/10/24 12/02/24 10/10/24 History clotrimazole-betamethasone 1 1 appl topical BID 10/11/24 12/02/24 10/10/24 History %-0.05 % topical cream prednisone 20 mg tablet 20 mg PO DAILY 10/21/24 12/02/24 Unknown History Physical Exam 2 Vital Signs: Vital Signs: Last Vital Signs Temp 97.6 F 12/04/24 11:04 Pulse 144 H 12/04/24 11:04 Resp 20 12/04/24 11:04 BP 161/86 H 12/04/24 11:04 Pulse Ox 95 12/04/24 11:04 O2 Del Method Oxymask 12/04/24 11:04 O2 Flow Rate 6 12/04/24 11:04 Oxygen Flow Rate 6 12/02/24 12:11 BMI result Body Mass Index 23.9 Neuro: Other: Alert and awake with slow slightly dysarthric speech. Comprehension was intact. He was following simple commands. Face seems symmetrical. Moderate quadriparesis was noted. Reflexes are brisk with extensor plantars. Results Labs 12/04/24 07:34 12/04/24 07:34 Labs: Short CBC 12/04/24 Range/Units 07:34 WBC 25.0 H (4.8-10.8) X10*3/uL Hgb 9.3 L D (14.0-18.0) g/dl Hct 27.6 L D (42.0-52.0) % Plt Count 192 D (160-400) X10*3/uL BMP 12/04/24 07:34 Sodium 138 Potassium 2.9 L* Chloride 109 H Carbon Dioxide 21 L BUN 7 L Creatinine 0.41 L Calcium 8.1 L CSF protein was 111. Encephalitis panel was negative and autoimmune panel was pending. Microbiology Microbiology Results: Microbiology 12/02/24 17:23 Urine Catheterized - Villatoro Catheter Urine Culture - Preliminary Gram negative shaka 12/02/24 12:46 Blood - Venous Blood Culture - Preliminary No growth after 24 hours. 12/02/24 12:46 Blood - Venous Blood Culture - Preliminary No growth after 24 hours. 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 Autoimmune CSF panel was pending. I recommend continuing course of IVIG, 400 milligram/kg per day for 5 days. As far as Rituxan is concerned, it can be continued as an outpatient. Procedures Date of Service Date of Service: 12/04/24
[2024-12-04] MEDS: 0.9 % Sodium Chloride Flush 3 ML SYRINGE IVFLUSH (17:05)
[2024-12-04] MEDS: Immune Globulin 10% Gammagard 30 GM/300 ML VIAL IV (17:05)
[2024-12-04] MEDS: Sennosides 8.6 MG TABLET 17.2 MG G-TUBE (21:53)
[2024-12-04] MEDS: Enoxaparin Sodium 40 MG/0.4 ML SYRINGE SUBCUT (21:53)
[2024-12-05] VITALS (7 sets, daily range): BP systolic 120–159; BP diastolic 72–93; PULSE 98–125; RESP 18–20; TEMP 36.7–37.7; O2SAT 93–100
[2024-12-05] MEDS: Acetaminophen 325 MG TABLET 650 MG G-TUBE ×2 (01:29→16:29)
[2024-12-05 02:59] LABS: Hematocrit 25.4 % (42.0-52.0); Hemoglobin 8.6 g/dl (14.0-18.0); Mean Corpuscular HGB Conc 33.9 g/dl (31.0-36.0); Mean Corpuscular Volume 73.8 fL (80.0-98.0); Mean Platelet Volume 12.5 fL (9.4-12.4); Platelet Count 162 X10*3/uL (160-400); Red Blood Count 3.44 X10*6/uL (4.60-5.80); Red Cell Distribution Width 18.5 % (11.0-16.0); White Blood Count 21.6 X10*3/uL (4.8-10.8)
[2024-12-05 03:19] LABS: Anion Gap 11 (12-20); Blood Urea Nitrogen 6 mg/dL (9-16); Calcium 8.3 mg/dL (8.4-10.2); Carbon Dioxide 26 mmol/L (22-29); Chloride 106 mmol/L (96-108); Creatinine Clr Calc Pharmacy 245.4; Estimated Glomerular Filt Rate > 60; Glucose Random 102 mg/dL (60-115); Sodium 140 mmol/L (135-145)
[2024-12-05] MEDS: vancomycin HCL 1,250 MG in 0.9 % Sodium Chloride 250 ML 166.67 MG IV (04:51)
[2024-12-05] MEDS: cefEPime HCl/D5W 2 GM/50 ML PIGGYBACK IV ×3 (04:52→20:15)
[2024-12-05] MEDS: Ascorbic Acid 500 MG TABLET G-TUBE ×2 (10:36→20:13)
[2024-12-05] MEDS: Cyclobenzaprine HCl 10 MG TABLET G-TUBE ×3 (10:36→20:13)
[2024-12-05] MEDS: Sertraline HCL 50 MG TABLET G-TUBE (10:36)
[2024-12-05] MEDS: predniSONE 20 MG TABLET PO (10:37)
[2024-12-05] MEDS: Cholecalciferol (Vitamin D3) 25 MCG TABLET 50 MCG G-TUBE (10:37)
[2024-12-05 10:48] LABS: Vancomycin Trough 19.6 mcg/mL (10.0-20.0)
[2024-12-05 10:53] LABS: Anion Gap 11 (12-20); Blood Urea Nitrogen 6 mg/dL (9-16); Calcium 8.3 mg/dL (8.4-10.2); Carbon Dioxide 27 mmol/L (22-29); Chloride 105 mmol/L (96-108); Creatinine Clr Calc Pharmacy 245.4; Estimated Glomerular Filt Rate > 60; Glucose Random 111 mg/dL (60-115); Potassium 2.9 mmol/L (3.3-5.1); Sodium 140 mmol/L (135-145)
--- NOTE | 2024-12-05 11:10 | HE.PHANOTE ---
VANCO DOSE ADJUSTMENT BASED ON RENAL FUNCTION AND TROUGH OF 19.6 DOSE CHANGED TO 1000 Q 8. NEXT LEVEL 12/06 @ 1200
[2024-12-05] MEDS: Potassium Chloride Packet 20 MEQ PACKET 40 MEQ PO ×2 (12:08→15:24)
[2024-12-05] MEDS: Ketorolac Tromethamine 30 MG/ML VIAL IVPUSH (12:08)
--- NOTE | 2024-12-05 12:23 | PC.NURSE ---
This RN went into paient room do do blood draw off of triple lumen catheter in the R IJ. When RN went to flush catheter it started to bleed. MD at bedside to asses and said to monitor. Catheter continued to bleed and this RN redressed catheter. When redressing noticed that line was coming out of neck, reflushed and still leaking. Per MD pull the line and place ultrasound guided IV's. Line pulled at 1200 and 2 ultrasound guided IV's placed in the L arm.
[2024-12-05] MEDS: Immune Globulin 10% Gammagard 30 GM/300 ML VIAL IV (15:23)
[2024-12-05] MEDS: vancomycin HCL 1,000 MG in 0.9 % Sodium Chloride 250 ML 270 MG IV ×2 (15:23→21:44)
[2024-12-05] MEDS: Lidocaine HCl Viscous 2 % 15 ML SOLUTION MUCOUS MEM (15:23)
[2024-12-05] MEDS: 0.9 % Sodium Chloride Flush 3 ML SYRINGE IVFLUSH (15:24)
--- NOTE | 2024-12-05 16:18 | HO.PM.IMPN ---
Subjective Subjective Date of Service: 12/05/24 Interval History: Complaining of right-sided neck pain at site of triple-lumen, dry mouth, sore throat and tongue discomfort Persistent tachycardia but improving, denies chest pain, no palpitations Required deep suctioning with significant amount of thick white/yellow phlegm was removed Review of Systems All other system reviewed and are negative Physical Exam Vital Signs: Vital Signs: Last Vital Signs Temp 98.9 F 12/05/24 15:30 Pulse 116 H 12/05/24 15:30 Resp 18 12/05/24 15:30 BP 125/77 12/05/24 15:30 Pulse Ox 93 12/05/24 15:30 O2 Del Method Room Air 12/05/24 15:30 O2 Flow Rate 4 12/05/24 11:42 Oxygen Flow Rate 6 12/02/24 12:11 BMI result Body Mass Index 23.9 Const: Other: Gen: quadriparesis , no distress, no respiratory distress HEENT: sclera anicteric, dry mucus membranes Neck: supple/right IJ catheter with mild bleeding around Lungs: diminished, no crackles, no rhonchi Heart: regular rate and rhythm, no murmurs Abd: soft, non-tender, non-distended, peg in place, no surrounding erythema : suprapubic catheter, clear urine Ext: no edema Skin: warm/well-perfused Neuro: alert and oriented x3, spastic quadraparesis,. Psych: appropriate affect Objective Data Active Medications Acetaminophen (Acetaminophen 325 Mg Tablet) 650 mg G-TUBE Q6H PRN PRN Reason: Pain, Mild 1-3,fever,headache Last Admin: 12/05/24 01:29 Dose: 650 mg Documented By: CECILE Ascorbic Acid (Ascorbic Acid 500 Mg Tablet) 500 mg G-TUBE BID [facility] Last Admin: 12/05/24 10:36 Dose: 500 mg Documented By: REJI Calcium Carbonate (Calcium Carbonate 750 Mg Tab.Chew) 750 mg G-TUBE Q4H PRN PRN Reason: Heartburn Cyclobenzaprine HCl (Cyclobenzaprine Hcl 10 Mg Tablet) 10 mg G-TUBE TID [facility] Last Admin: 12/05/24 15:24 Dose: 10 mg Documented By: REJI Enoxaparin Sodium (Enoxaparin Sodium 40 Mg/0.4 Ml Syringe) 40 mg SUBCUT Q24H [facility] Last Admin: 12/04/24 21:53 Dose: 40 mg Documented By: CECILE Cefepime HCl (Maxipime) 2 gm in 50 mls @ 100 mls/hr IV Q8H [facility] Last Infusion: 12/05/24 14:09 Dose: Infused Documented By: REJI Immune Globulin (Gammagard 10%) 30 gm in 300 mls @ 38 mls/hr IV Q24H [facility] Stop: 12/07/24 21:54 Last Admin: 12/05/24 15:23 Dose: 38 mls/hr Documented By: REJI Vancomycin HCl 1,000 mg/ (Sodium Chloride) 270 mls @ 270 mls/hr IV Q8H [facility] Last Admin: 12/05/24 15:23 Dose: 270 mls/hr Documented By: REJI Ketorolac Tromethamine (Ketorolac Tromethamine 30 Mg/Ml Vial) 30 mg IVPUSH Q6H PRN PRN Reason: Pain, Moderate(Pain Scale 4-6) Stop: 12/07/24 06:17 Last Admin: 12/05/24 12:08 Dose: 30 mg Documented By: REJI Magnesium Hydroxide (Milk Of Magnesia 30 Ml Oral.Susp) 30 ml G-TUBE DAILY PRN PRN Reason: Constipation Melatonin (Melatonin 3 Mg Tablet) 6 mg G-TUBE BEDTIME PRN PRN Reason: Insomnia Last Admin: 12/03/24 22:11 Dose: 6 mg Documented By: CECILE Morphine Sulfate (Morphine Sulfate 4 Mg/Ml Cartridge) 4 mg IVPUSH Q4H PRN; Protocol PRN Reason: Pain, Severe (Pain Scale 7-10) Last Admin: 12/03/24 11:30 Dose: 4 mg Documented By: CARMEN Ondansetron HCl (Ondansetron Hcl 4 Mg/2 Ml Vial) 4 mg IVPUSH Q8H PRN PRN Reason: Nausea and Vomiting Pharmacy Consult (Consult Rx Vancomycin Dosing) 1 each MISCELLANE DAILY PRN PRN Reason: Consult order Prednisone (Prednisone 20 Mg Tablet) 20 mg PO DAILY [facility] Last Admin: 12/05/24 10:37 Dose: 20 mg Documented By: REJI Senna (Sennosides 8.6 Mg Tablet) 17.2 mg G-TUBE BEDTIME [facility] Last Admin: 12/04/24 21:53 Dose: 17.2 mg Documented By: CECILE Sertraline HCl (Sertraline Hcl 50 Mg Tablet) 50 mg G-TUBE DAILY [facility] Last Admin: 12/05/24 10:36 Dose: 50 mg Documented By: REJI Sodium Chloride (0.9 % Sodium Chloride Flush 3 Ml Syringe) 3 ml IVFLUSH QSHIFT [facility] Last Admin: 12/05/24 15:24 Dose: 3 ml Documented By: REJI Vitamin D (Cholecalciferol (Vitamin D3) 25 Mcg Tablet) 50 mcg G-TUBE DAILY [facility] Last Admin: 12/05/24 10:37 Dose: 50 mcg Documented By: REJI Labs 12/05/24 02:40 12/05/24 09:56 Labs: Laboratory Results - last 24 hr 12/05/24 12/05/24 02:40 09:56 MCV 73.8 L MCH 25.0 L MCHC 33.9 RDW 18.5 H Plt Count 162 MPV 12.5 H Absolute Nucleated RBC 0.000 Nucleated RBC % (auto) 0.0 Anion Gap 11 L 11 L Estim Creat Clear Calc 245.4 245.4 Estimated GFR > 60 > 60 Random Glucose 102 111 Calcium 8.3 L 8.3 L Vancomycin Trough 19.6 Microbiology Microbiology Results: Microbiology 12/02/24 17:23 Urine Culture - Final Urine Catheterized - Villatoro Catheter Enterobacter cloacae complex 12/02/24 12:46 Blood Culture - Preliminary Blood - Venous No growth after 48 hours. 12/02/24 12:46 Blood Culture - Preliminary Blood - Venous No growth after 48 hours. 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 Pt will be admitted to the hospital for treatment and further evaluation of CAMRYN and sepsis in the setting of acute UTI and acute bibasilar pneumonia. Acute UTI with sepsis Presented with blocked suprapubic catheter x 1 day, replaced in the ED Meets sepsis criteria with tachycardia, tachypnea, and leukocytosis; lactic acid WNL s/p IVF ,cont. iv cefepime and vancomycin, started 12/02/2024 Pt recently completed course of linezolid for UTI Id recommend to continue current antibiotics for 3-5 days, and to stop vancomycin if MRSA nares negative, after IV ,azithromycin for 5 days, if worsens to add doxycycline 100 mg b.i.d. urine culture positive for enterobacter sensitive only to gentamicin and Bactrim and resistant to cefepime/blood cultures negative times 48 hours/WBC trending down Will start Bactrim 1 tablet twice daily Will discuss urine culture result with ID DC triple-lumen due to leakage/peripheral IV access obtained Acute hypoxic respiratory failure due to Bibasilar pneumonia/difficulty clearing secretion CTA of chest showing left greater than right bibasilar pneumonia,No PE Leukocytosis trending down likely due to steroids/infection Continue IV antibiotics as above hx of dysphagia and aspiration pneumonia, currently on PEG tube diet Being followed by speech therapy they recommend to continue NPO/ice chips to moisten oral cavity only Requiring frequent suctioning/wean O2 as tolerated Acute leukocytosis multifactorial likely due to infection as above/due to chronic steroid use/reactive No diarrhea less likely C diff, WBC gradually trending down, follow CBC Acute hypokalemia Replace and follow lab CAMRYN Creatinine 1.03 at time of presentation, elevated from 0.52 2 days prior on 11/30/2024 Likely secondary to reduced intake from removed PEG tube Treated with IV fluids creatinine normalized continue water flushes Q 8 hours Acute hypokalemia will replete and follow labs Sinus Tachycardia Multifactorial in the setting sepsis from UTI and pneumonia/anxiety/ dehydration/fever treat infection/ Monitor on telemetry Tachycardia improving /has chronic intermittent tachycardia will follow CTA chest 12/02 showed no PE Diet PEG tube placed 11/24/2024 Tube feeding diet with Jevity 1 Kirk/speech recommend NPO NMO/MS or other dymyelinating disease Status post recent LP, CSF fluid oligoclonal bands negative Being followed by Dr. Mayo patient likely has demyelinating disease mostly affecting brainstem and spinal cord with suspicion of autoimmune encephalitis, autoimmune CSF panel pending Neuro recommend IVIG x5 days, day 3/5 , Continue prednisone, Continue Rituxan as outpatient as per Neurology Mood disorder Continue sertraline Full Code DVT Prophylaxis: Lovenox Pt will require continued inpatient for treatment of?CAMRYN and sepsis in the setting of acute UTI and bibasilar pneumonia. Pt will require administration of IV antibiotics, close monitoring of cardiac function and labs, as well as specialist consultation Treatment can not be provided in less acute setting. Quality Stroke Does the patient have a stroke diagnosis?: No VTE Prior VTE?: No VTE Risk Level:: Medical - moderate - high VTE Device Contraindication: Treatment Not Indicated VTE Drug Contraindication: N/A - Med Ordered
[2024-12-05] MEDS: Sulfamethox/Trimeth 800/160 TABLET 1 TAB G-TUBE (18:29)
[2024-12-05] MEDS: Sennosides 8.6 MG TABLET 17.2 MG G-TUBE (20:14)
[2024-12-05] MEDS: Enoxaparin Sodium 40 MG/0.4 ML SYRINGE SUBCUT (20:14)
[2024-12-05 22:33] LABS: Triiodothyronine T3 Free 2.7 pg/mL (2.3-4.2)
[2024-12-06] VITALS (7 sets, daily range): BP systolic 123–140; BP diastolic 73–88; PULSE 95–107; RESP 16–20; TEMP 36.4–37.2; O2SAT 93–100
[2024-12-06] MEDS: 0.9 % Sodium Chloride Flush 3 ML SYRINGE IVFLUSH ×4 (00:29→20:35)
[2024-12-06] MEDS: cefEPime HCl/D5W 2 GM/50 ML PIGGYBACK IV ×3 (04:21→20:21)
[2024-12-06] MEDS: Morphine Sulfate 4 MG/ML CARTRIDGE IVPUSH ×2 (04:22→19:29)
[2024-12-06] MEDS: vancomycin HCL 1,000 MG in 0.9 % Sodium Chloride 250 ML 270 MG IV (05:59)
[2024-12-06 07:18] LABS: Creatinine Clr Calc Pharmacy 213.4; Estimated Glomerular Filt Rate > 60
[2024-12-06] MEDS: Ascorbic Acid 500 MG TABLET G-TUBE ×2 (08:28→20:23)
[2024-12-06] MEDS: Cholecalciferol (Vitamin D3) 25 MCG TABLET 50 MCG G-TUBE (08:29)
[2024-12-06] MEDS: Sertraline HCL 50 MG TABLET G-TUBE (08:29)
[2024-12-06] MEDS: Cyclobenzaprine HCl 10 MG TABLET G-TUBE ×3 (08:31→20:23)
[2024-12-06] MEDS: predniSONE 20 MG TABLET PO (08:32)
[2024-12-06 08:51] LABS: Potassium 3.5 mmol/L (3.3-5.1)
--- NOTE | 2024-12-06 11:36 | MHC.SLORD ---
Speech Language Pathology Order Status: Pt remains NPO, G-tube for nutrition/hydration. Oral swabs/trace ice chips with RN, MD or LITHARGE SUPERVISOR only. Pt resting comfortably. MD note indicates ? of demyelinating disease of brain stem/spinal column. LITHARGE SUPERVISOR continues to follow.
--- NOTE | 2024-12-06 12:10 | MHC.CLN ---
F/U PT TOLERATING TF AT MAX GOAL RATE TOLERATING WELL PER NSG PT RECEIVING JEVITY 1.0 AT 85 ML/ HR, WITH 240ML FREE WATER FLUSHES Q 8 HOURS PROVIDES 2162 KCALS (27.9 KCALS/KG), 90 G PROTEIN (1.16 G/KG), 2433 ML TOTAL FREE WATER FROM FORMULA AND FLUSH (31.3 ML/KG) CONTINUE TO MONITOR TOLERANCE AND LYTES
[2024-12-06 12:26] LABS: Vancomycin Trough 11.9 mcg/mL (10.0-20.0)
[2024-12-06] MEDS: Immune Globulin 10% Gammagard 30 GM/300 ML VIAL IV (14:08)
--- NOTE | 2024-12-06 14:30 | P.PNIM_ITS ---
Subjective Subjective Date of Service: 12/07/24 Interval History: Offers no acute complaints Requiring frequent suctioning,mrsa nares neg,moving bowls good urine output. Review of Systems All other system reviewed and are negative. Physical Exam 2 Vital Signs: Vital Signs: Last Vital Signs Temp 97.6 F 12/06/24 11:20 Pulse 106 H 12/06/24 11:20 Resp 18 12/06/24 11:20 BP 131/79 12/06/24 11:20 Pulse Ox 95 12/06/24 11:20 O2 Del Method Room Air 12/06/24 11:20 O2 Flow Rate 1 12/06/24 07:53 Oxygen Flow Rate 6 12/02/24 12:11 BMI result Body Mass Index 23.9 Const: Other: Gen: quadriparesis , no respiratory distress HEENT: sclera anicteric, dry mucus membranes Neck: supple Lungs: diminished, no crackles, no rhonchi Heart: regular rate and rhythm, no murmurs Abd: soft, non-tender, non-distended, peg in place, no surrounding erythema : suprapubic catheter, clear urine Ext: no edema Skin: warm/well-perfused Neuro: alert and oriented x3, spastic quadraparesis,. Psych: appropriate affect Objective Data Active Medications Acetaminophen (Acetaminophen 325 Mg Tablet) 650 mg G-TUBE Q6H PRN PRN Reason: Pain, Mild 1-3,fever,headache Last Admin: 12/05/24 16:29 Dose: 650 mg Documented By: REJI Ascorbic Acid (Ascorbic Acid 500 Mg Tablet) 500 mg G-TUBE BID [facility] Last Admin: 12/06/24 08:28 Dose: 500 mg Documented By: BENNETT Calcium Carbonate (Calcium Carbonate 750 Mg Tab.Chew) 750 mg G-TUBE Q4H PRN PRN Reason: Heartburn Cyclobenzaprine HCl (Cyclobenzaprine Hcl 10 Mg Tablet) 10 mg G-TUBE TID [facility] Last Admin: 12/06/24 14:23 Dose: 10 mg Documented By: BENNETT Enoxaparin Sodium (Enoxaparin Sodium 40 Mg/0.4 Ml Syringe) 40 mg SUBCUT Q24H [facility] Last Admin: 12/05/24 20:14 Dose: 40 mg Documented By: IMTIAZ Cefepime HCl (Maxipime) 2 gm in 50 mls @ 100 mls/hr IV Q8H [facility] Last Infusion: 12/06/24 14:29 Dose: Infused Documented By: BENNETT Immune Globulin (Gammagard 10%) 30 gm in 300 mls @ 38 mls/hr IV Q24H [facility] Stop: 12/07/24 21:54 Last Admin: 12/06/24 14:08 Dose: 38 mls/hr Documented By: BENNETT Vancomycin HCl 1,250 mg/ (Sodium Chloride) 250 mls @ 166.667 mls/hr IV Q8H [facility] Ketorolac Tromethamine (Ketorolac Tromethamine 30 Mg/Ml Vial) 30 mg IVPUSH Q6H PRN PRN Reason: Pain, Moderate(Pain Scale 4-6) Stop: 12/07/24 06:17 Last Admin: 12/05/24 12:08 Dose: 30 mg Documented By: REJI Magnesium Hydroxide (Milk Of Magnesia 30 Ml Oral.Susp) 30 ml G-TUBE DAILY PRN PRN Reason: Constipation Melatonin (Melatonin 3 Mg Tablet) 6 mg G-TUBE BEDTIME PRN PRN Reason: Insomnia Last Admin: 12/03/24 22:11 Dose: 6 mg Documented By: RASEHED-ADRIELZECecil Morphine Sulfate (Morphine Sulfate 4 Mg/Ml Cartridge) 4 mg IVPUSH Q4H PRN; Protocol PRN Reason: Pain, Severe (Pain Scale 7-10) Last Admin: 12/06/24 04:22 Dose: 4 mg Documented By: IMTIAZ Ondansetron HCl (Ondansetron Hcl 4 Mg/2 Ml Vial) 4 mg IVPUSH Q8H PRN PRN Reason: Nausea and Vomiting Pharmacy Consult (Consult Rx Vancomycin Dosing) 1 each MISCELLANE DAILY PRN PRN Reason: Consult order Prednisone (Prednisone 20 Mg Tablet) 20 mg PO DAILY [facility] Last Admin: 12/06/24 08:32 Dose: 20 mg Documented By: BENNETT Senna (Sennosides 8.6 Mg Tablet) 17.2 mg G-TUBE BEDTIME [facility] Last Admin: 12/05/24 20:14 Dose: 17.2 mg Documented By: IMTIAZ Sertraline HCl (Sertraline Hcl 50 Mg Tablet) 50 mg G-TUBE DAILY [facility] Last Admin: 12/06/24 08:29 Dose: 50 mg Documented By: BENNTET Sodium Chloride (0.9 % Sodium Chloride Flush 3 Ml Syringe) 3 ml IVFLUSH QSHIFT [facility] Last Admin: 12/06/24 14:24 Dose: 3 ml Documented By: BENNETT Trimethoprim/Sulfamethoxazole (Sulfamethox/Trimeth 800/160 Tablet) 1 tab G-TUBE Q12H [facility] Last Admin: 12/06/24 08:02 Dose: Not Given Documented By: BENNETT Non-Admin Reason: NOT MY PT AT THIS TIME Vitamin D (Cholecalciferol (Vitamin D3) 25 Mcg Tablet) 50 mcg G-TUBE DAILY [facility] Last Admin: 12/06/24 08:29 Dose: 50 mcg Documented By: BENNETT Labs 12/05/24 02:40 12/06/24 06:20 Labs: Laboratory Results - last 24 hr 12/04/24 12/06/24 12/06/24 07:34 06:20 12:03 Estim Creat Clear Calc 213.4 Estimated GFR > 60 Free T3 2.7 Vancomycin Trough 11.9 Assessment and Plan (1) Tachycardia: Status: Acute (2) Sepsis: Status: Acute (3) Acute UTI: Status: Acute (4) Pneumonia: Status: Acute (5) Aspiration pneumonia: Status: Acute (6) Dysphagia: Status: Acute (7) Demyelinating disease: Status: Acute Plan 39-year-old male with a PMH significant for?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 Pt will be admitted to the hospital for treatment and further evaluation of CAMRYN and sepsis in the setting of acute UTI and acute bibasilar pneumonia. Acute UTI with sepsis Presented with blocked suprapubic catheter x 1 day, replaced in the ED Meets sepsis criteria with tachycardia, tachypnea, and leukocytosis; lactic acid WNL s/p IVF ,cont. iv cefepime and vancomycin, started 12/02/2024, will DC IV vancomycin since MRSA nares are negative, Pt recently completed course of linezolid for UTI Id recommend ,azithromycin for 5 days after IV antibiotics, if worsens to add doxycycline 100 mg b.i.d. urine culture positive for enterobacter sensitive only to gentamicin and Bactrim and resistant to cefepime/blood cultures negative times 48 hours/WBC trending down on Bactrim 1 tablet twice daily started 12/05, ID agreed with current treatment Acute hypoxic respiratory failure due to Bibasilar pneumonia/difficulty clearing secretion CTA of chest showing left greater than right bibasilar pneumonia,No PE Leukocytosis trending down likely due to steroids/infection Continue IV antibiotics as above hx of dysphagia and aspiration pneumonia, currently on PEG tube diet Being followed by speech therapy they recommend to continue NPO/ice chips to moisten oral cavity only Requiring frequent suctioning/wean O2 as tolerated Acute leukocytosis multifactorial likely due to infection as above/due to chronic steroid use/reactive No diarrhea less likely C diff, follow CBC Acute hypokalemia repleted and normalized CAMRYN Creatinine 1.03 at time of presentation, elevated from 0.52 2 days prior on 11/30/2024 Likely secondary to reduced intake from removed PEG tube s/p IV fluids creatinine normalized continue water flushes Q 8 hours Sinus Tachycardia Multifactorial in the setting sepsis from UTI and pneumonia/anxiety/ dehydration/fever treat infection/ Monitor on telemetry Tachycardia improving /has chronic intermittent tachycardia will follow CTA chest 12/02 showed no PE Diet PEG tube placed 11/24/2024 Tube feeding diet with Jevity 1 Kirk/speech recommend NPO NMO/MS or other dymyelinating disease Status post recent LP, CSF fluid oligoclonal bands negative Being followed by Dr. Huber patient likely has demyelinating disease mostly affecting brainstem and spinal cord with suspicion of autoimmune encephalitis, autoimmune CSF panel pending Neuro recommend IVIG x5 days, day 4/5 , Continue prednisone home dose, Continue Rituxan as outpatient as per Neurology Mood disorder Continue sertraline Full Code DVT Prophylaxis: Lovenox Pt will require continued inpatient for treatment of?CAMRYN and sepsis in the setting of acute UTI and bibasilar pneumonia. Pt will require administration of IV antibiotics, close monitoring of cardiac function and labs, as well as specialist consultation Treatment can not be provided in less acute setting. Quality Stroke Does the patient have a stroke diagnosis?: No VTE Prior VTE?: No VTE Risk Level:: Medical - moderate - high VTE Device Contraindication: Treatment Not Indicated VTE Drug Contraindication: N/A - Med Ordered
--- NOTE | 2024-12-06 16:06 | P.CDIM_ITS ---
PROVIDER RESPONSE TEXT: To clarify, the appropriate diagnosis supported by the clinical indicators: Yes, UTI is related to / associated with / due to Suprapubic catheter QUERY TEXT: PHYSICIAN'S DOCUMENTATION REQUEST Date of Query: 12/06/2024 02:16 PM EST Patient Name: Justus Burr Admit Date: 12/03/2024 Dear Romelia Casas MD, A review of the medical record indicates additional documentation may be needed. Please review below and update the documentation accordingly. Documentation includes the conditions of Acute UTI and Suprapubic catheter. Clinical Indicators: patient had a blocked suprapubic catheter and fever, tachycardia, SOB on presentation received IV antibiotics Please clarify the relationship between these conditions: Yes, UTI is related to / associated with / due to Suprapubic catheter No, UTI is not related to / associated with / due to Suprapubic catheter Other (explain) Clinically unable to determine (explain) Thank you, Liudmila Le RN Use of terms such as suspected, likely, concern for, or probable (associated with a specific diagnosi s that is being evaluated, monitored, or treated as if it exists) are acceptable and can be coded in the inpatient se tting, when documented at the time of discharge. Please use your independent medical judgment in providing your response. THIS QUERY IS PART OF THE PERMANENT MEDICAL RECORD
--- NOTE | 2024-12-06 16:40 | MHC.CM.PN ---
PT NOT YET MEDICALLY CLEARED, REQUIRING IV ABX, LABS AND CARDIAC MONITORING. DCP: HOME WITH RESUMPTION OF VOCATIONAL NURSING INSTRUCTOR SERVICES VIA BLS
--- NOTE | 2024-12-06 17:00 | HO.WOUND ---
Wound Consult: Initial 39yr old?Male admitted [place] [facility] [place]02[place]24 - See progress notes and H&P for detailed history.? Wound consult placed for Buttock wound.? Patient agreeable to assessment and photo documentation.? Patient reports he has had this area to his buttocks for sometime - he reports his INTERNAL CONTROL SPECIALIST at home applys cream he is unsure of the cream in use. See below for photo. Sacrum Etiology: ?Stage 2 Pressure Injury ?Present on Admission Wound Bed: central open red pink moist wound bed - partial thickness tissue loss periwound with hyperpigmentation noted Edges: ? attached Carmen wound:MASD (Moisture Associated Skin Damage) No Induration, Fluctuance or Warmth noted Pain: denies Goals of Treatment: ? Off Load Pressure and barrier cream to allow for continued healing and protect from friction and moisture Recommendations: 1. Turn and Reposition every 2 hours and as needed for patient comfort.? Use pillows or wedges to support off loading positions. 2. Off Load all bony prominences with use of pillows and heel boots if needed.? Apply Preventative foams where needed. ? 3. Monitor for incontinence and moisture control, use barrier creams when needed for prevention and treatment. 4. Provide adequate and supplemental nutrition.? 5. Continue low air loss mattress. 6. When applicable maintain blood glucose levels per Providers order. 7. Buttock - Off Load Pressure with Q2 hr turns and use of pillows - Cleanse with PH balance spray or wipes, pat dry. ?Apply thin layer of Triad to wound bed - only pat and dab no scrub and rub when soiling occurs. Reapply thin layer PRN after each episode of incontinence. May cover with foam dressing, change every 3 days and PRN. Re-consult wound care Nurse for wound deterioration or wound changes.
[2024-12-06] MEDS: Sulfamethox/Trimeth 800/160 TABLET 1 TAB G-TUBE (17:03)
[2024-12-06] MEDS: Sennosides 8.6 MG TABLET 17.2 MG G-TUBE (20:23)
[2024-12-06] MEDS: Enoxaparin Sodium 40 MG/0.4 ML SYRINGE SUBCUT (20:25)
[2024-12-07 03:09] VITALS: BP 129/75; PULSE 101; RESP 20; TEMP 36.8; O2SAT 95
[2024-12-07] MEDS: cefEPime HCl/D5W 2 GM/50 ML PIGGYBACK IV ×3 (04:25→20:54)
[2024-12-07] MEDS: Sulfamethox/Trimeth 800/160 TABLET 1 TAB G-TUBE ×2 (05:03→17:34)
[2024-12-07 08:00] VITALS: BP 139/84; PULSE 104; RESP 18; TEMP 36.6; O2SAT 95
[2024-12-07] MEDS: predniSONE 20 MG TABLET PO (08:05)
[2024-12-07] MEDS: Cholecalciferol (Vitamin D3) 25 MCG TABLET 50 MCG G-TUBE (08:05)
[2024-12-07] MEDS: Acetaminophen 325 MG TABLET 650 MG G-TUBE (08:05)
[2024-12-07] MEDS: Ascorbic Acid 500 MG TABLET G-TUBE ×2 (08:05→20:53)
[2024-12-07] MEDS: Sertraline HCL 50 MG TABLET G-TUBE (08:05)
[2024-12-07] MEDS: Cyclobenzaprine HCl 10 MG TABLET G-TUBE ×3 (08:05→20:53)
[2024-12-07] MEDS: 0.9 % Sodium Chloride Flush 3 ML SYRINGE IVFLUSH ×3 (08:08→22:37)
--- NOTE | 2024-12-07 10:36 | MHC.SLORD ---
Speech Language Pathology Order Status: Patient was provided with oral care. A very small amount of thick white secretions removed from cheeks by moistened swab. Patient held lips together as oral moisturizer was applied and requested more. He was offered ice chip, but declined, holding lips tightly together.
[2024-12-07 11:28] VITALS: BP 124/79; PULSE 105; RESP 18; TEMP 36.5; O2SAT 91
[2024-12-07] MEDS: Immune Globulin 10% Gammagard 30 GM/300 ML VIAL IV (14:45)
--- NOTE | 2024-12-07 15:15 | HO.PM.IMPN ---
Subjective Subjective Date of Service: 12/08/24 Interval History: Offers no acute complaints No events overnight/tolerating G-tube feeds, feeds no recurrent fevers, pulse around 100, stable oxygen on room air At times difficult to understand due to thick speech Review of Systems All other system reviewed and negative Physical Exam Vital Signs: Vital Signs: Last Vital Signs Temp 97.7 F 12/07/24 11:28 Pulse 105 H 12/07/24 11:28 Resp 18 12/07/24 11:28 BP 124/79 12/07/24 11:28 Pulse Ox 91 L 12/07/24 11:28 O2 Del Method Room Air 12/07/24 11:28 O2 Flow Rate 1 12/06/24 07:53 Oxygen Flow Rate 6 12/02/24 12:11 BMI result Body Mass Index 23.9 Const: Other: Gen: quadriparesis , no respiratory distress Neck: supple Lungs: diminished, no crackles, no rhonchi Heart: regular rate and rhythm, no murmurs Abd: soft, non-tender, non-distended, peg in place, no surrounding erythema : suprapubic catheter, clear urine Ext: no edema Skin: warm/well-perfused Neuro: alert and oriented x3, spastic quadraparesis,. Psych: appropriate affect Objective Data Active Medications Acetaminophen (Acetaminophen 325 Mg Tablet) 650 mg G-TUBE Q6H PRN PRN Reason: Pain, Mild 1-3,fever,headache Last Admin: 12/07/24 08:05 Dose: 650 mg Documented By: BENNETT Ascorbic Acid (Ascorbic Acid 500 Mg Tablet) 500 mg G-TUBE BID [facility] Last Admin: 12/07/24 08:05 Dose: 500 mg Documented By: BENNETT Calcium Carbonate (Calcium Carbonate 750 Mg Tab.Chew) 750 mg G-TUBE Q4H PRN PRN Reason: Heartburn Cyclobenzaprine HCl (Cyclobenzaprine Hcl 10 Mg Tablet) 10 mg G-TUBE TID [facility] Last Admin: 12/07/24 14:45 Dose: 10 mg Documented By: BENNETT Enoxaparin Sodium (Enoxaparin Sodium 40 Mg/0.4 Ml Syringe) 40 mg SUBCUT Q24H [facility] Last Admin: 12/06/24 20:25 Dose: 40 mg Documented By: SAVANNA Glycopyrrolate (Glycopyrrolate 0.2 Mg/Ml Vial) 0.1 mg IVPUSH Q4H PRN PRN Reason: secretions Cefepime HCl (Maxipime) 2 gm in 50 mls @ 100 mls/hr IV Q8H [facility] Last Infusion: 12/07/24 13:12 Dose: Infused Documented By: BENNETT Immune Globulin (Gammagard 10%) 30 gm in 300 mls @ 38 mls/hr IV Q24H [facility] Stop: 12/07/24 21:54 Last Admin: 12/07/24 14:45 Dose: 38 mls/hr Documented By: BENNETT Magnesium Hydroxide (Milk Of Magnesia 30 Ml Oral.Susp) 30 ml G-TUBE DAILY PRN PRN Reason: Constipation Melatonin (Melatonin 3 Mg Tablet) 6 mg G-TUBE BEDTIME PRN PRN Reason: Insomnia Last Admin: 12/03/24 22:11 Dose: 6 mg Documented By: CECILE Morphine Sulfate (Morphine Sulfate 4 Mg/Ml Cartridge) 4 mg IVPUSH Q4H PRN; Protocol PRN Reason: Pain, Severe (Pain Scale 7-10) Last Admin: 12/06/24 19:29 Dose: 4 mg Documented By: BENNETT Ondansetron HCl (Ondansetron Hcl 4 Mg/2 Ml Vial) 4 mg IVPUSH Q8H PRN PRN Reason: Nausea and Vomiting Prednisone (Prednisone 20 Mg Tablet) 20 mg PO DAILY [facility] Last Admin: 12/07/24 08:05 Dose: 20 mg Documented By: BENNETT Senna (Sennosides 8.6 Mg Tablet) 17.2 mg G-TUBE BEDTIME [facility] Last Admin: 12/06/24 20:23 Dose: 17.2 mg Documented By: SAVANNA Sertraline HCl (Sertraline Hcl 50 Mg Tablet) 50 mg G-TUBE DAILY [facility] Last Admin: 12/07/24 08:05 Dose: 50 mg Documented By: BENNETT Sodium Chloride (0.9 % Sodium Chloride Flush 3 Ml Syringe) 3 ml IVFLUSH QSHIFT [facility] Last Admin: 12/07/24 14:52 Dose: 3 ml Documented By: BENNETT Trimethoprim/Sulfamethoxazole (Sulfamethox/Trimeth 800/160 Tablet) 1 tab G-TUBE Q12H [facility] Last Admin: 12/07/24 05:03 Dose: 1 tab Documented By: RASHEED-LALA Vitamin D (Cholecalciferol (Vitamin D3) 25 Mcg Tablet) 50 mcg G-TUBE DAILY [facility] Last Admin: 12/07/24 08:05 Dose: 50 mcg Documented By: RIOSCEL Labs 12/08/24 08:57 12/08/24 08:57 Microbiology Microbiology Results: Microbiology 12/02/24 12:46 Blood Culture - Final Blood - Venous No growth after 5 days. 12/02/24 12:46 Blood Culture - Final Blood - Venous No growth after 5 days. 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 Pt will be admitted to the hospital for treatment and further evaluation of CAMRYN and sepsis in the setting of acute UTI and acute bibasilar pneumonia. Acute UTI with sepsis Presented with blocked suprapubic catheter x 1 day, replaced in the ED Meets sepsis criteria with tachycardia, tachypnea, and leukocytosis; lactic acid WNL s/p IVF ,cont. iv cefepime and vancomycin, started 12/02/2024, will DC IV vancomycin since MRSA nares are negative, Pt recently completed course of linezolid for UTI Id recommend ,azithromycin for 5 days after IV antibiotics, if worsens to add doxycycline 100 mg b.i.d. urine culture positive for enterobacter sensitive only to gentamicin and Bactrim and resistant to cefepime/blood cultures negative times 48 hours/WBC trending down on Bactrim 1 tablet twice daily started 12/05, ID agreed with current treatment Acute hypoxic respiratory failure due to Bibasilar pneumonia/difficulty clearing secretion CTA of chest showing left greater than right bibasilar pneumonia,No PE Leukocytosis trending down likely due to steroids/infection Continue IV antibiotics as above hx of dysphagia and aspiration pneumonia, currently on PEG tube diet Being followed by speech therapy they recommend to continue NPO/ice chips to moisten oral cavity only Requiring frequent suctioning/wean O2 as tolerated Acute leukocytosis multifactorial likely due to infection as above/due to chronic steroid use/reactive No diarrhea less likely C diff, follow CBC Acute hypokalemia repleted and normalized CAMRYN Creatinine 1.03 at time of presentation, elevated from 0.52 2 days prior on 11/30/2024 Likely secondary to reduced intake from removed PEG tube s/p IV fluids creatinine normalized continue water flushes Q 8 hours Sinus Tachycardia Multifactorial in the setting sepsis from UTI and pneumonia/anxiety/ dehydration/fever treat infection/ Monitor on telemetry Tachycardia improving /has chronic intermittent tachycardia will follow CTA chest 12/02 showed no PE Diet PEG tube placed 11/24/2024 Tube feeding diet with Jevity 1 Kirk/speech recommend NPO NMO/MS or other dymyelinating disease Status post recent LP, CSF fluid oligoclonal bands negative Being followed by Dr. Huber patient likely has demyelinating disease mostly affecting brainstem and spinal cord with suspicion of autoimmune encephalitis, autoimmune CSF panel pending Neuro recommend IVIG x5 days, day 5/5 , Continue prednisone home dose, Continue Rituxan as outpatient as per Neurology Mood disorder Continue sertraline Full Code DVT Prophylaxis: Lovenox Pt will require continued inpatient for treatment of?CAMRYN and sepsis in the setting of acute UTI and bibasilar pneumonia. Pt will require administration of IV antibiotics, close monitoring of cardiac function and labs, as well as specialist consultation Treatment can not be provided in less acute setting. Quality Stroke Does the patient have a stroke diagnosis?: No VTE Prior VTE?: No VTE Risk Level:: Medical - moderate - high VTE Device Contraindication: Treatment Not Indicated VTE Drug Contraindication: N/A - Med Ordered
[2024-12-07 15:17] VITALS: BP 136/85; PULSE 90; RESP 18; TEMP 36.6; O2SAT 98
[2024-12-07 19:08] VITALS: BP 136/83; PULSE 100; RESP 18; TEMP 37; O2SAT 97
[2024-12-07] MEDS: Enoxaparin Sodium 40 MG/0.4 ML SYRINGE SUBCUT (20:53)
[2024-12-07] MEDS: Sennosides 8.6 MG TABLET 17.2 MG G-TUBE (20:53)
[2024-12-07 23:55] VITALS: BP 127/77; PULSE 105; RESP 18; TEMP 36.9; O2SAT 96
[2024-12-08] MEDS: Acetaminophen 325 MG TABLET 650 MG G-TUBE (00:14)
[2024-12-08 04:00] VITALS: BP 121/81; PULSE 104; RESP 20; TEMP 36.4; O2SAT 92
[2024-12-08] MEDS: cefEPime HCl/D5W 2 GM/50 ML PIGGYBACK IV (04:55)
[2024-12-08] MEDS: Sulfamethox/Trimeth 800/160 TABLET 1 TAB G-TUBE ×2 (05:05→17:12)
[2024-12-08 07:30] VITALS: BP 132/85; PULSE 95; RESP 18; TEMP 36.6; O2SAT 98
[2024-12-08] MEDS: Ascorbic Acid 500 MG TABLET G-TUBE ×2 (08:13→21:35)
[2024-12-08] MEDS: Cyclobenzaprine HCl 10 MG TABLET G-TUBE ×3 (08:13→21:35)
[2024-12-08] MEDS: 0.9 % Sodium Chloride Flush 3 ML SYRINGE IVFLUSH ×2 (08:13→17:13)
[2024-12-08] MEDS: Sertraline HCL 50 MG TABLET G-TUBE (08:13)
[2024-12-08] MEDS: predniSONE 20 MG TABLET PO (08:13)
[2024-12-08] MEDS: Cholecalciferol (Vitamin D3) 25 MCG TABLET 50 MCG G-TUBE (08:13)
[2024-12-08 09:19] LABS: Hematocrit 27.4 % (42.0-52.0); Hemoglobin 8.9 g/dl (14.0-18.0); Mean Corpuscular HGB Conc 32.5 g/dl (31.0-36.0); Mean Corpuscular Hemoglobin 24.1 pg (27.0-33.0); Mean Corpuscular Volume 74.1 fL (80.0-98.0); Mean Platelet Volume 11.4 fL (9.4-12.4); Platelet Count 238 X10*3/uL (160-400); Red Cell Distribution Width 18.5 % (11.0-16.0); White Blood Count 12.2 X10*3/uL (4.8-10.8)
[2024-12-08 09:27] LABS: Anion Gap 12 (12-20); Blood Urea Nitrogen 11 mg/dL (9-16); Calcium 8.7 mg/dL (8.4-10.2); Carbon Dioxide 28 mmol/L (22-29); Chloride 102 mmol/L (96-108); Creatinine Clr Calc Pharmacy 192.5; Estimated Glomerular Filt Rate > 60; Glucose Random 112 mg/dL (60-115); Potassium 3.5 mmol/L (3.3-5.1); Sodium 138 mmol/L (135-145)
--- NOTE | 2024-12-08 10:43 | MHC.CM.PN ---
Per MD in [facility], family meeting today at noon; CM will follow.
[2024-12-08 11:19] VITALS: BP 129/77; PULSE 118; RESP 18; TEMP 36.8; O2SAT 97
--- NOTE | 2024-12-08 11:20 | MHC.CLN ---
F/U PT TOLERATING TF AT MAX GOAL RATE TOLERATING WELL PER NSG PT RECEIVING JEVITY 1.0 AT 85 ML/ HR WITH 240ML FREE WATER FLUSHES Q 8 HOURS PROVIDES 2162 KCALS (29 KCALS/KG), 90 G PROTEIN (1.2 G/KG), 2433 ML TOTAL FREE WATER FROM FORMULA AND FLUSH (33 ML/KG) TF WILL PROMOTE WOUND HEALING-NOTED STAGE 2 COCCYX IDENTIFIED ON 12/06 CONTINUE TO MONITOR TOLERANCE AND LYTES
--- NOTE | 2024-12-08 12:46 | MHC.SLORD ---
Speech Language Pathology Order Status: RN consulted, pt lethargic today. Family meeting today, further decisions pending for STR vs HH services. FLOCCULATOR OPERATOR continuees to follow.
--- NOTE | 2024-12-08 13:58 | P.PNIM_ITS ---
Subjective Subjective Date of Service: 12/08/24 Interval History: awake alert offers no acute complaints wishes to be discharged home declines rehab history obtained via water resources technical officer patient niece and her Shadi Armas at bedside for family meeting Review of Systems all other system reviewed and negative Physical Exam 2 Vital Signs: Vital Signs: Last Vital Signs Temp 98.2 F 12/08/24 11:19 Pulse 118 H 12/08/24 11:19 Resp 18 12/08/24 11:19 BP 129/77 12/08/24 11:19 Pulse Ox 97 12/08/24 11:19 O2 Del Method Room Air 12/08/24 11:19 O2 Flow Rate 1 12/06/24 07:53 Oxygen Flow Rate 6 12/02/24 12:11 BMI result Body Mass Index 23.9 Const: Other: Gen: quadriparesis , no respiratory distress Neck: supple Lungs: diminished, no crackles, no rhonchi Heart: regular rate and rhythm, no murmurs Abd: soft, non-tender, non-distended, peg in place, no surrounding erythema : suprapubic catheter, clear urine Ext: no edema Skin: warm/well-perfused Neuro: alert and oriented x3, spastic quadraparesis,. Psych: appropriate affect Objective Data Active Medications Acetaminophen (Acetaminophen 325 Mg Tablet) 650 mg G-TUBE Q6H PRN PRN Reason: Pain, Mild 1-3,fever,headache Last Admin: 12/08/24 00:14 Dose: 650 mg Documented By: SAVANNA Ascorbic Acid (Ascorbic Acid 500 Mg Tablet) 500 mg G-TUBE BID [facility] Last Admin: 12/08/24 08:13 Dose: 500 mg Documented By: JOSIAS Calcium Carbonate (Calcium Carbonate 750 Mg Tab.Chew) 750 mg G-TUBE Q4H PRN PRN Reason: Heartburn Cyclobenzaprine HCl (Cyclobenzaprine Hcl 10 Mg Tablet) 10 mg G-TUBE TID [facility] Last Admin: 12/08/24 08:13 Dose: 10 mg Documented By: JOSIAS Enoxaparin Sodium (Enoxaparin Sodium 40 Mg/0.4 Ml Syringe) 40 mg SUBCUT Q24H [facility] Last Admin: 12/07/24 20:53 Dose: 40 mg Documented By: SAVANNA Glycopyrrolate (Glycopyrrolate 0.2 Mg/Ml Vial) 0.1 mg IVPUSH Q4H PRN PRN Reason: secretions Magnesium Hydroxide (Milk Of Magnesia 30 Ml Oral.Susp) 30 ml G-TUBE DAILY PRN PRN Reason: Constipation Melatonin (Melatonin 3 Mg Tablet) 6 mg G-TUBE BEDTIME PRN PRN Reason: Insomnia Last Admin: 12/03/24 22:11 Dose: 6 mg Documented By: CECILE Ondansetron HCl (Ondansetron Hcl 4 Mg/2 Ml Vial) 4 mg IVPUSH Q8H PRN PRN Reason: Nausea and Vomiting Prednisone (Prednisone 20 Mg Tablet) 20 mg PO DAILY [facility] Last Admin: 12/08/24 08:13 Dose: 20 mg Documented By: JOSIAS Senna (Sennosides 8.6 Mg Tablet) 17.2 mg G-TUBE BEDTIME [facility] Last Admin: 12/07/24 20:53 Dose: 17.2 mg Documented By: SAVANNA Sertraline HCl (Sertraline Hcl 50 Mg Tablet) 50 mg G-TUBE DAILY [facility] Last Admin: 12/08/24 08:13 Dose: 50 mg Documented By: JOSIAS Sodium Chloride (0.9 % Sodium Chloride Flush 3 Ml Syringe) 3 ml IVFLUSH QSHIFT [facility] Last Admin: 12/08/24 08:13 Dose: 3 ml Documented By: JOSIAS Trimethoprim/Sulfamethoxazole (Sulfamethox/Trimeth 800/160 Tablet) 1 tab G-TUBE Q12H [facility] Last Admin: 12/08/24 05:05 Dose: 1 tab Documented By: SAVANNA Vitamin D (Cholecalciferol (Vitamin D3) 25 Mcg Tablet) 50 mcg G-TUBE DAILY [facility] Last Admin: 12/08/24 08:13 Dose: 50 mcg Documented By: JOSIAS Labs 12/08/24 08:57 12/08/24 08:57 Labs: Laboratory Results - last 24 hr 12/08/24 08:57 MCV 74.1 L MCH 24.1 L MCHC 32.5 RDW 18.5 H Plt Count 238 D MPV 11.4 Absolute Nucleated RBC 0.000 Nucleated RBC % (auto) 0.0 Anion Gap 12 Estim Creat Clear Calc 192.5 Estimated GFR > 60 Random Glucose 112 Calcium 8.7 Microbiology Microbiology Results: Microbiology 12/02/24 12:46 Blood Culture - Final Blood - Venous No growth after 5 days. 12/02/24 12:46 Blood Culture - Final Blood - Venous No growth after 5 days. 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 Pt will be admitted to the hospital for treatment and further evaluation of CAMRYN and sepsis in the setting of acute UTI and acute bibasilar pneumonia. Acute UTI with sepsis Presented with blocked suprapubic catheter x 1 day, replaced in the ED s/p IVF ,on. iv cefepime started to , received 5 days of IV cefepime will discontinue s/p IV vancomycin discontinued since MRSA nares are negative, Pt recently completed course of linezolid for UTI Id recommend ,azithromycin for 5 days after IV antibiotics, if worsens to add doxycycline 100 mg b.i.d.( patient has history of rash to doxy) urine culture positive for enterobacter sensitive only to gentamicin and Bactrim and resistant to cefepime/blood cultures negative times 48 hours/WBC trending down on Bactrim 1 tablet twice daily started 12/05, ID agreed with current treatment Acute hypoxic respiratory failure due to Bibasilar pneumonia/difficulty clearing secretion CTA of chest showing left greater than right bibasilar pneumonia,No PE Leukocytosis trending down likely due to steroids/infection started on azithromycin 250 mg daily for 4 days hx of dysphagia and aspiration pneumonia, currently on PEG tube diet Being followed by speech therapy they recommend to continue NPO/ice chips to moisten oral cavity only Requiring frequent suctioning/wean O2 as tolerated Acute leukocytosis multifactorial likely due to infection as above/due to chronic steroid use/reactive No diarrhea less likely C diff, WBC improved Acute hypokalemia repleted and normalized CAMRYN Creatinine 1.03 at time of presentation, elevated from 0.52 2 days prior on 11/30/2024 Likely secondary to reduced intake from removed PEG tube s/p IV fluids creatinine normalized continue water flushes Q 8 hours Sinus Tachycardia Multifactorial in the setting sepsis from UTI and pneumonia/anxiety/ dehydration/fever treat infection/ Monitor on telemetry Tachycardia improving /has chronic intermittent tachycardia will follow CTA chest 12/02 showed no PE Diet PEG tube placed 11/24/2024 Tube feeding diet with Jevity 1 Kirk/speech recommend NPO NMO/MS or other dymyelinating disease Status post recent LP, CSF fluid oligoclonal bands negative Being followed by Dr. 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,with poor prognosis discuss code status with them and patient he wishes to be full code at this time, discuss tracheostomy which patient declined, discuss disposition to rehab facility, family agreed however patient declined and adamant to be discharged home 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 Quality Stroke Does the patient have a stroke diagnosis?: No VTE Prior VTE?: No VTE Risk Level:: Medical - moderate - high VTE Device Contraindication: Treatment Not Indicated VTE Drug Contraindication: N/A - Med Ordered
[2024-12-08 16:00] VITALS: BP 121/73; PULSE 101; RESP 16; TEMP 36.3; O2SAT 96
[2024-12-08] MEDS: Azithromycin 250 MG TABLET G-TUBE (17:13)
--- NOTE | 2024-12-08 17:42 | P.CDIM_ITS ---
PROVIDER RESPONSE TEXT: To clarify, the appropriate diagnosis supported by the clinical indicators: stage 2 QUERY TEXT: PHYSICIAN'S DOCUMENTATION REQUEST Date of Query: 12/08/2024 12:05 PM EST Patient Name: Justus Burr Admit Date: 12/03/2024 Dear Romelia Casas MD, A review of the medical record indicates additional documentation may be needed. Please review below and update the documentation accordingly. Clinical Indicators: Per Wound note 12/06/24: sacrum stage 2 pressure injury, present on admission Off Load Pressure and barrier cream to allow for continued healing and protect from friction and mois ture Based on the above, could you please provide further information regarding the stage of the ulcer/wou nd: stage 1 stage 2 stage 3 stage 4 unstageable Other (explain) Clinically unable to determine (explain) Thank you, Lidumila Le RN Use of terms such as suspected, likely, concern for, or probable (associated with a specific diagnosi s that is being evaluated, monitored, or treated as if it exists) are acceptable and can be coded in the inpatient se tting, when documented at the time of discharge. Please use your independent medical judgment in providing your response. THIS QUERY IS PART OF THE PERMANENT MEDICAL RECORD
[2024-12-08 19:42] VITALS: BP 125/75; PULSE 110; RESP 16; TEMP 36.6; O2SAT 95
[2024-12-08] MEDS: Sennosides 8.6 MG TABLET 17.2 MG G-TUBE (21:35)
[2024-12-08] MEDS: Melatonin 3 MG TABLET 6 MG G-TUBE (21:36)
[2024-12-08] MEDS: Enoxaparin Sodium 40 MG/0.4 ML SYRINGE SUBCUT (21:36)
[2024-12-09] VITALS (8 sets, daily range): BP systolic 120–140; BP diastolic 73–86; PULSE 110–140; RESP 16–18; TEMP 36–38.3; O2SAT 88–96
[2024-12-09] MEDS: Acetaminophen 325 MG TABLET 650 MG G-TUBE ×2 (04:55→21:57)
[2024-12-09] MEDS: Sulfamethox/Trimeth 800/160 TABLET 1 TAB G-TUBE ×2 (04:56→18:24)
[2024-12-09] MEDS: Ascorbic Acid 500 MG TABLET G-TUBE ×2 (09:35→21:58)
[2024-12-09] MEDS: predniSONE 20 MG TABLET PO (09:35)
[2024-12-09] MEDS: Cholecalciferol (Vitamin D3) 25 MCG TABLET 50 MCG G-TUBE (09:35)
[2024-12-09] MEDS: Sertraline HCL 50 MG TABLET G-TUBE (09:35)
[2024-12-09] MEDS: Cyclobenzaprine HCl 10 MG TABLET G-TUBE ×3 (09:35→21:57)
[2024-12-09] MEDS: 0.9 % Sodium Chloride Flush 3 ML SYRINGE IVFLUSH ×3 (09:43→22:50)
--- NOTE | 2024-12-09 16:01 | HO.PM.IMPN ---
Subjective Subjective Date of Service: 12/09/24 Interval History: Noted to have significant secretions require deep suctioning, oxygenation dropped down require 10 L of oxygen via OxyMask, and soon patient weaned off of oxygen currently on room air Denies pain, denies shortness of breath, no chest discomfort, no palpitations, no fevers, no chills History obtained via medical interpreter. Review of Systems All other system reviewed and are negative Physical Exam Vital Signs: Vital Signs: Last Vital Signs Temp 97.5 F 12/09/24 15:26 Pulse 117 H 12/09/24 15:26 Resp 16 12/09/24 15:26 BP 134/82 12/09/24 15:26 Pulse Ox 93 12/09/24 15:26 O2 Del Method Room Air 12/09/24 15:26 O2 Flow Rate 2 12/09/24 03:57 Oxygen Flow Rate 6 12/02/24 12:11 BMI result Body Mass Index 23.9 Const: Other: Gen: quadriparesis , no respiratory distress Neck: supple Lungs: diminished, no crackles, no rhonchi Heart: regular rate and rhythm, no murmurs Abd: soft, non-tender, non-distended, peg in place, no surrounding erythema : suprapubic catheter, clear urine Ext: no edema Skin: warm/well-perfused Neuro: alert and oriented x3, spastic quadraparesis,. Psych: appropriate affect Objective Data Active Medications Acetaminophen (Acetaminophen 325 Mg Tablet) 650 mg G-TUBE Q6H PRN PRN Reason: Pain, Mild 1-3,fever,headache Last Admin: 12/09/24 04:55 Dose: 650 mg Documented By: PERRI Ascorbic Acid (Ascorbic Acid 500 Mg Tablet) 500 mg G-TUBE BID [facility] Last Admin: 12/09/24 09:35 Dose: 500 mg Documented By: ZULEMA Azithromycin (Azithromycin 250 Mg Tablet) 250 mg G-TUBE Q24H [facility] Last Admin: 12/08/24 17:13 Dose: 250 mg Documented By: JOSIAS Calcium Carbonate (Calcium Carbonate 750 Mg Tab.Chew) 750 mg G-TUBE Q4H PRN PRN Reason: Heartburn Cyclobenzaprine HCl (Cyclobenzaprine Hcl 10 Mg Tablet) 10 mg G-TUBE TID [facility] Last Admin: 12/09/24 09:35 Dose: 10 mg Documented By: ZULEMA Enoxaparin Sodium (Enoxaparin Sodium 40 Mg/0.4 Ml Syringe) 40 mg SUBCUT Q24H [facility] Last Admin: 12/08/24 21:36 Dose: 40 mg Documented By: PERRI Glycopyrrolate (Glycopyrrolate 0.2 Mg/Ml Vial) 0.1 mg IVPUSH Q4H PRN PRN Reason: secretions Magnesium Hydroxide (Milk Of Magnesia 30 Ml Oral.Susp) 30 ml G-TUBE DAILY PRN PRN Reason: Constipation Melatonin (Melatonin 3 Mg Tablet) 6 mg G-TUBE BEDTIME PRN PRN Reason: Insomnia Last Admin: 12/08/24 21:36 Dose: 6 mg Documented By: PERRI Ondansetron HCl (Ondansetron Hcl 4 Mg/2 Ml Vial) 4 mg IVPUSH Q8H PRN PRN Reason: Nausea and Vomiting Prednisone (Prednisone 20 Mg Tablet) 20 mg PO DAILY [facility] Last Admin: 12/09/24 09:35 Dose: 20 mg Documented By: ZULEMA Senna (Sennosides 8.6 Mg Tablet) 17.2 mg G-TUBE BEDTIME [facility] Last Admin: 12/08/24 21:35 Dose: 17.2 mg Documented By: PERRI Sertraline HCl (Sertraline Hcl 50 Mg Tablet) 50 mg G-TUBE DAILY [facility] Last Admin: 12/09/24 09:35 Dose: 50 mg Documented By: ZULEMA Sodium Chloride (0.9 % Sodium Chloride Flush 3 Ml Syringe) 3 ml IVFLUSH QSHIFT [facility] Last Admin: 12/09/24 09:43 Dose: 3 ml Documented By: ZULEMA Trimethoprim/Sulfamethoxazole (Sulfamethox/Trimeth 800/160 Tablet) 1 tab G-TUBE Q12H [facility] Last Admin: 12/09/24 04:56 Dose: 1 tab Documented By: PERRI Vitamin D (Cholecalciferol (Vitamin D3) 25 Mcg Tablet) 50 mcg G-TUBE DAILY [facility] Last Admin: 12/09/24 09:35 Dose: 50 mcg Documented By: ZULEMA Labs 12/08/24 08:57 12/08/24 08:57 Assessment and Plan (1) Tachycardia: Status: Acute (2) Sepsis: Status: Acute (3) Acute UTI: Status: Acute Plan 39-year-old male with a PMH significant for?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 Pt will be admitted to the hospital for treatment and further evaluation of CAMRYN and sepsis in the setting of acute UTI and acute bibasilar pneumonia. Acute UTI with sepsis Presented with blocked suprapubic catheter x 1 day, replaced in the ED s/p IVF , status post 5 days of IV cefepime Pt recently completed course of linezolid for UTI urine culture positive for enterobacter sensitive only to gentamicin and Bactrim and resistant to cefepime/blood cultures negative times 48 hours/WBC trending down on Bactrim 1 tablet twice daily started 12/05, ID agreed with current treatment Acute hypoxic respiratory failure due to Bibasilar pneumonia/difficulty clearing secretion CTA of chest showing left greater than right bibasilar pneumonia,No PE Leukocytosis trending down likely due to steroids/infection UA arterial on azithromycin 250 mg daily for 4 days hx of dysphagia and aspiration pneumonia, currently on PEG tube diet Being followed by speech therapy they recommend to continue NPO/ice chips to moisten oral cavity only Requiring frequent suctioning/wean O2 as tolerated Oxygenation dropped this morning due to significant secretions. Will arrange for home suction Acute leukocytosis multifactorial likely due to infection as above/due to chronic steroid use/reactive No diarrhea less likely C diff, WBC improved Acute hypokalemia repleted and normalized CAMRYN Likely secondary to reduced intake from removed PEG tube s/p IV fluids creatinine normalized continue water flushes Q 8 hours Sinus Tachycardia Multifactorial in the setting sepsis from UTI and pneumonia/anxiety/ dehydration/fever treat infection/ Monitor on telemetry Tachycardia improving /has chronic intermittent tachycardia will follow CTA chest 12/02 showed no PE Diet PEG tube placed 11/24/2024 Tube feeding diet with Jevity 1 Kirk/speech recommend NPO NMO/MS or other dymyelinating disease Status post recent LP, CSF fluid oligoclonal bands negative likely has demyelinating disease mostly affecting brainstem and spinal cord with suspicion of autoimmune encephalitis, autoimmune CSF panel pending s/p IVIG x5 days, 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 Continue prednisone home dose, Continue Rituxan as outpatient as per Neurology Mood disorder Continue sertraline Full Code DVT Prophylaxis: Eunice Spoke with patient with medical interpreter regarding code status patient is adamant to be full code, he declined trach placement, declined to go to rehab Plan to discharge home on Friday once suction machine is set up at home family will come tomorrow to receive teachings 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,with poor prognosis discuss code status with them and patient he wishes to be full code at this time, discuss tracheostomy which patient declined, discuss disposition to rehab facility, family agreed however patient declined and adamant to be discharged home 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 Quality Stroke Does the patient have a stroke diagnosis?: No VTE Prior VTE?: No VTE Risk Level:: Medical - moderate - high VTE Device Contraindication: Treatment Not Indicated VTE Drug Contraindication: N/A - Med Ordered
[2024-12-09] MEDS: Azithromycin 250 MG TABLET G-TUBE (16:08)
[2024-12-09] MEDS: Melatonin 3 MG TABLET 6 MG G-TUBE (21:57)
[2024-12-09] MEDS: Sennosides 8.6 MG TABLET 17.2 MG G-TUBE (21:58)
[2024-12-09] MEDS: Enoxaparin Sodium 40 MG/0.4 ML SYRINGE SUBCUT (21:58)
[2024-12-09] MEDS: Metoprolol Tartrate 5 MG/5 ML VIAL IVPUSH (22:57)
[2024-12-10] VITALS: BP 118/71; PULSE 118; RESP 18; TEMP 36.6; O2SAT 95
[2024-12-10 04:00] VITALS: BP 105/61; PULSE 113; RESP 16; TEMP 37.4; O2SAT 97
[2024-12-10] MEDS: Sulfamethox/Trimeth 800/160 TABLET 1 TAB G-TUBE ×2 (06:35→16:37)
[2024-12-10 07:50] VITALS: BP 120/85; PULSE 112; RESP 20; TEMP 36.5; O2SAT 95
--- NOTE | 2024-12-10 09:27 | MHC.CM.PN ---
Patient is not yet medically cleared for dc. Per PN 12/09/2024, goal is home on 12/13/2024 once suction machine is set up in the home and family has received education/training.CM will follow.
[2024-12-10] MEDS: predniSONE 20 MG TABLET PO (10:19)
[2024-12-10] MEDS: Cyclobenzaprine HCl 10 MG TABLET G-TUBE ×3 (10:19→22:39)
[2024-12-10] MEDS: Cholecalciferol (Vitamin D3) 25 MCG TABLET 50 MCG G-TUBE (10:19)
[2024-12-10] MEDS: Sertraline HCL 50 MG TABLET G-TUBE (10:19)
[2024-12-10] MEDS: Ascorbic Acid 500 MG TABLET G-TUBE ×2 (10:20→22:39)
[2024-12-10] MEDS: Acetaminophen 325 MG TABLET 650 MG G-TUBE ×2 (10:20→16:38)
[2024-12-10] MEDS: 0.9 % Sodium Chloride Flush 3 ML SYRINGE IVFLUSH ×2 (10:20→16:38)
--- NOTE | 2024-12-10 11:27 | MHC.SLORD ---
Speech Language Pathology Order Status: Patient seen this morning for oral care, ice chips. Patient initially without O2 mask, protested when it was put in place, but struggled/ face became dusky when it was removed. 02 briefly removed for oral care. Patient given one small ice chip, which he notably chewed and evidenced coughing as water from ice chip appeared to prematurely fall into pharynx/airway. No further ice chips given. Oral area appeared well moist at this visit, free of debris. Patient resumed with tolerating 02 mask at end of session.
[2024-12-10 11:33] VITALS: BP 116/74; PULSE 120; RESP 20; TEMP 36.4; O2SAT 94
--- NOTE | 2024-12-10 12:00 | MHC.CLN ---
F/U PT TOLERATING TF AT MAX GOAL RATE TOLERATING WELL PER NSG PT RECEIVING JEVITY 1.0 AT 85 ML/ HR WITH 240ML FREE WATER FLUSHES Q 8 HOURS PROVIDES 2162 KCALS (29 KCALS/KG), 90 G PROTEIN (1.2 G/KG), 2433 ML TOTAL FREE WATER FROM FORMULA AND FLUSH (33 ML/KG) TF WILL PROMOTE WOUND HEALING CONTINUE TO MONITOR TOLERANCE AND LYTES
[2024-12-10 15:32] VITALS: BP 117/73; PULSE 122; RESP 20; TEMP 36.7; O2SAT 96
--- NOTE | 2024-12-10 16:30 | P.PNIM_ITS ---
Subjective Subjective Date of Service: 12/10/24 Interval History: History obtained via mass communications instructor Patient wishes to be discharged home today, offers no acute complaints but requiring frequent suctioning, intermittent oxygen support and tachycardia NPO tolerating G-tube feeds, last bowel movement 12/09 Review of Systems All other system reviewed and are negative Physical Exam 2 Vital Signs: Vital Signs: Last Vital Signs Temp 98.0 F 12/10/24 15:32 Pulse 122 H 12/10/24 15:32 Resp 20 12/10/24 15:32 BP 117/73 12/10/24 15:32 Pulse Ox 96 12/10/24 15:32 O2 Del Method Room Air 12/10/24 15:32 O2 Flow Rate 3 12/10/24 11:33 Oxygen Flow Rate 6 12/02/24 12:11 BMI result Body Mass Index 23.9 Const: Other: Gen: quadriparesis , no respiratory distress Neck: supple Lungs: diminished, no crackles, no rhonchi Heart: regular rate and rhythm, no murmurs Abd: soft, non-tender, non-distended, peg in place, no surrounding erythema : suprapubic catheter, clear urine Ext: no edema Skin: warm/well-perfused Neuro: alert and oriented x3, spastic quadraparesis,. Psych: appropriate affect Objective Data Active Medications Acetaminophen (Acetaminophen 325 Mg Tablet) 650 mg G-TUBE Q6H PRN PRN Reason: Pain, Mild 1-3,fever,headache Last Admin: 12/10/24 10:20 Dose: 650 mg Documented By: CURTIS Ascorbic Acid (Ascorbic Acid 500 Mg Tablet) 500 mg G-TUBE BID [facility] Last Admin: 12/10/24 10:20 Dose: 500 mg Documented By: CURTIS Azithromycin (Azithromycin 250 Mg Tablet) 250 mg G-TUBE Q24H [facility] Last Admin: 12/09/24 16:08 Dose: 250 mg Documented By: ZULEMA Calcium Carbonate (Calcium Carbonate 750 Mg Tab.Chew) 750 mg G-TUBE Q4H PRN PRN Reason: Heartburn Cyclobenzaprine HCl (Cyclobenzaprine Hcl 10 Mg Tablet) 10 mg G-TUBE TID [facility] Last Admin: 12/10/24 10:19 Dose: 10 mg Documented By: CURTIS Enoxaparin Sodium (Enoxaparin Sodium 40 Mg/0.4 Ml Syringe) 40 mg SUBCUT Q24H [facility] Last Admin: 12/09/24 21:58 Dose: 40 mg Documented By: PERRI Glycopyrrolate (Glycopyrrolate 0.2 Mg/Ml Vial) 0.1 mg IVPUSH Q4H PRN PRN Reason: secretions Magnesium Hydroxide (Milk Of Magnesia 30 Ml Oral.Susp) 30 ml G-TUBE DAILY PRN PRN Reason: Constipation Melatonin (Melatonin 3 Mg Tablet) 6 mg G-TUBE BEDTIME PRN PRN Reason: Insomnia Last Admin: 12/09/24 21:57 Dose: 6 mg Documented By: PERRI Ondansetron HCl (Ondansetron Hcl 4 Mg/2 Ml Vial) 4 mg IVPUSH Q8H PRN PRN Reason: Nausea and Vomiting Prednisone (Prednisone 20 Mg Tablet) 20 mg PO DAILY [facility] Last Admin: 12/10/24 10:19 Dose: 20 mg Documented By: CURTIS Senna (Sennosides 8.6 Mg Tablet) 17.2 mg G-TUBE BEDTIME [facility] Last Admin: 12/09/24 21:58 Dose: 17.2 mg Documented By: PERRI Sertraline HCl (Sertraline Hcl 50 Mg Tablet) 50 mg G-TUBE DAILY [facility] Last Admin: 12/10/24 10:19 Dose: 50 mg Documented By: CURTIS Sodium Chloride (0.9 % Sodium Chloride Flush 3 Ml Syringe) 3 ml IVFLUSH QSHIFT [facility] Last Admin: 12/10/24 10:20 Dose: 3 ml Documented By: CURTIS Trimethoprim/Sulfamethoxazole (Sulfamethox/Trimeth 800/160 Tablet) 1 tab G-TUBE Q12H [facility] Last Admin: 12/10/24 06:35 Dose: 1 tab Documented By: PERRI Vitamin D (Cholecalciferol (Vitamin D3) 25 Mcg Tablet) 50 mcg G-TUBE DAILY [facility] Last Admin: 12/10/24 10:19 Dose: 50 mcg Documented By: CURTIS Labs 12/08/24 08:57 12/08/24 08:57 Assessment and Plan (1) Tachycardia: Status: Acute (2) Sepsis: Status: Acute (3) Acute UTI: Status: Acute (4) Pneumonia: Status: Acute (5) Aspiration pneumonia: Status: Acute Plan 39-year-old male with a PMH significant for?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 Pt will be admitted to the hospital for treatment and further evaluation of CAMRYN and sepsis in the setting of acute UTI and acute bibasilar pneumonia. Acute UTI with sepsis Presented with blocked suprapubic catheter x 1 day, replaced in the ED s/p IVF , status post 5 days of IV cefepime Pt recently completed course of linezolid for UTI urine culture positive for enterobacter sensitive only to gentamicin and Bactrim and resistant to cefepime/blood cultures negative times 48 hours/WBC trending down on Bactrim 1 tablet twice daily started 12/05 for total 10 days end date 12/15 , ID agreed with treatment plan Acute hypoxic respiratory failure due to Bibasilar pneumonia/difficulty clearing secretion CTA of chest showed left greater than right bibasilar pneumonia,No PE Leukocytosis trending down likely due to steroids/infection on azithromycin 250 mg daily for 5 days started on 12/08 hx of dysphagia and aspiration pneumonia, currently on PEG tube diet Being followed by speech therapy they recommend to continue NPO/ice chips to moisten oral cavity only Requiring frequent suctioning/and use of oxygen, not on home O2 Scopolamine held due to significant dry mouth and tachycardia. Signed paperwork for suction machine that will be delivered by [employer] to patient's home on Wednesday 12/13 Acute leukocytosis multifactorial likely due to infection as above/due to chronic steroid use/reactive No diarrhea less likely C diff, WBC improved Acute hypokalemia repleted and normalized CAMRYN s/p IV fluids creatinine normalized continue water flushes Q 8 hours Sinus Tachycardia Multifactorial in the setting sepsis from UTI and pneumonia/anxiety/ dehydration/fever treat infection/ Monitor on telemetry Tachycardia improving /has chronic intermittent tachycardia will follow CTA chest 12/02 showed no PE Diet PEG tube placed 11/24/2024 Tube feeding diet with Jevity 1 Kirk/speech recommend NPO NMO/MS or other dymyelinating disease Status post recent LP, CSF fluid oligoclonal bands negative likely has demyelinating disease mostly affecting brainstem and spinal cord with suspicion of autoimmune encephalitis, autoimmune CSF panel pend s/p IVIG x5 days, 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, Continue prednisone home dose, Continue Rituxan as outpatient as per Neurology Recommend outpatient follow-up with Neurology Mood disorder Continue sertraline Full Code DVT Prophylaxis: Eunice Spoke with patient with mass communications instructor regarding code status on 12/09 and again 12/10 patient is adamant to be full code, declined trach placement wants time to think, declined to go to rehab Plan to discharge home on Friday once suction machine is set up at home, requested family to come to hospital to learn suctioning 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 Quality Stroke Does the patient have a stroke diagnosis?: No VTE Prior VTE?: No VTE Risk Level:: Medical - moderate - high VTE Device Contraindication: Treatment Not Indicated VTE Drug Contraindication: N/A - Med Ordered
[2024-12-10] MEDS: Azithromycin 250 MG TABLET G-TUBE (16:37)
[2024-12-10 19:57] VITALS: BP 115/71; PULSE 122; RESP 20; TEMP 36.7; O2SAT 95
[2024-12-10] MEDS: Melatonin 3 MG TABLET 6 MG G-TUBE (22:22)
[2024-12-10] MEDS: Enoxaparin Sodium 40 MG/0.4 ML SYRINGE SUBCUT (22:38)
[2024-12-10] MEDS: Sennosides 8.6 MG TABLET 17.2 MG G-TUBE (22:39)
[2024-12-10] MEDS: Glycopyrrolate 0.2 MG/ML VIAL 0.1 MG IVPUSH (22:42)
[2024-12-11] VITALS (9 sets, daily range): BP systolic 116–141; BP diastolic 74–90; PULSE 120–131; RESP 16–20; TEMP 36.1–37.7; O2SAT 88–97
[2024-12-11] MEDS: Acetaminophen 325 MG TABLET 650 MG G-TUBE ×3 (02:09→20:02)
[2024-12-11] MEDS: Sulfamethox/Trimeth 800/160 TABLET 1 TAB G-TUBE ×2 (06:47→16:10)
[2024-12-11] MEDS: Sertraline HCL 50 MG TABLET G-TUBE (08:24)
[2024-12-11] MEDS: Cholecalciferol (Vitamin D3) 25 MCG TABLET 50 MCG G-TUBE (08:24)
[2024-12-11] MEDS: predniSONE 20 MG TABLET PO (08:25)
[2024-12-11] MEDS: 0.9 % Sodium Chloride Flush 3 ML SYRINGE IVFLUSH ×3 (08:25→16:11)
[2024-12-11] MEDS: Cyclobenzaprine HCl 10 MG TABLET G-TUBE ×3 (08:25→20:03)
[2024-12-11] MEDS: Ascorbic Acid 500 MG TABLET G-TUBE ×2 (08:25→20:02)
--- NOTE | 2024-12-11 08:48 | P.PNIM_ITS ---
Subjective Subjective Date of Service: 12/11/24 Interval History: Seen in follow up for UTI and pneumonia Interval history: Exclaiming Help me but not stating any complaints other than back pain which he says is chronic. No h/a, sob, cough, cp, abd pain, nausea. Reports chronic weakness, no numbness. Burciaga in place draining yellow urine, denies dysuria. Remains tachycardic. NPO with PEG in place Review of Systems Review of Systems: Yes all other systems are reviewed and are negative Physical Exam 2 Vital Signs: Vital Signs: Last Vital Signs Temp 97.0 F 12/11/24 08:00 Pulse 127 H 12/11/24 08:00 Resp 20 12/11/24 08:00 BP 123/78 12/11/24 08:00 Pulse Ox 92 12/11/24 08:00 O2 Del Method Room Air 12/11/24 08:00 O2 Flow Rate 8 12/11/24 01:05 Oxygen Flow Rate 6 12/02/24 12:11 BMI result Body Mass Index 23.9 Constitutional - Awake and Alert, No apparent distress Eyes - PERRLA, EOMI Cardiovascular - S1S2, RRR, No edema Respiratory - Normal lung expansion, Normal respiratory effort, No respiratory distress, CTA bilaterally Gastrointestinal - NT / ND; +BS; No rebound or guarding - burciaga in place with yellow urine Extremities - no calf tenderness bilaterally, no swelling Musculoskeletal - Normal inspection, normal ROM Skin - Warm/Dry Neurological - Alert & oriented x3, CN II-XII in tact, 5/5 strength BUE and BLE Psychological - Appropriate affect Objective Data Active Medications Acetaminophen (Acetaminophen 325 Mg Tablet) 650 mg G-TUBE Q6H PRN PRN Reason: Pain, Mild 1-3,fever,headache Last Admin: 12/11/24 02:09 Dose: 650 mg Documented By: KHRIS Ascorbic Acid (Ascorbic Acid 500 Mg Tablet) 500 mg G-TUBE BID [facility] Last Admin: 12/11/24 08:25 Dose: 500 mg Documented By: CURTIS Azithromycin (Azithromycin 250 Mg Tablet) 250 mg G-TUBE Q24H [facility] Last Admin: 12/10/24 16:37 Dose: 250 mg Documented By: CURTIS Calcium Carbonate (Calcium Carbonate 750 Mg Tab.Chew) 750 mg G-TUBE Q4H PRN PRN Reason: Heartburn Cyclobenzaprine HCl (Cyclobenzaprine Hcl 10 Mg Tablet) 10 mg G-TUBE TID [facility] Last Admin: 12/11/24 08:25 Dose: 10 mg Documented By: CURTIS Enoxaparin Sodium (Enoxaparin Sodium 40 Mg/0.4 Ml Syringe) 40 mg SUBCUT Q24H [facility] Last Admin: 12/10/24 22:38 Dose: 40 mg Documented By: KHRIS Glycopyrrolate (Glycopyrrolate 0.2 Mg/Ml Vial) 0.1 mg IVPUSH Q4H PRN PRN Reason: secretions Last Admin: 12/10/24 22:42 Dose: 0.1 mg Documented By: KHRIS Magnesium Hydroxide (Milk Of Magnesia 30 Ml Oral.Susp) 30 ml G-TUBE DAILY PRN PRN Reason: Constipation Melatonin (Melatonin 3 Mg Tablet) 6 mg G-TUBE BEDTIME PRN PRN Reason: Insomnia Last Admin: 12/10/24 22:22 Dose: 6 mg Documented By: KHRIS Ondansetron HCl (Ondansetron Hcl 4 Mg/2 Ml Vial) 4 mg IVPUSH Q8H PRN PRN Reason: Nausea and Vomiting Prednisone (Prednisone 20 Mg Tablet) 20 mg PO DAILY [facility] Last Admin: 12/11/24 08:25 Dose: 20 mg Documented By: CURTIS Senna (Sennosides 8.6 Mg Tablet) 17.2 mg G-TUBE BEDTIME [facility] Last Admin: 12/10/24 22:39 Dose: 17.2 mg Documented By: KHRIS Sertraline HCl (Sertraline Hcl 50 Mg Tablet) 50 mg G-TUBE DAILY [facility] Last Admin: 12/11/24 08:24 Dose: 50 mg Documented By: CURTIS Sodium Chloride (0.9 % Sodium Chloride Flush 3 Ml Syringe) 3 ml IVFLUSH QSHIFT [facility] Last Admin: 12/11/24 08:25 Dose: 3 ml Documented By: CURTIS Trimethoprim/Sulfamethoxazole (Sulfamethox/Trimeth 800/160 Tablet) 1 tab G-TUBE Q12H [facility] Last Admin: 12/11/24 06:47 Dose: 1 tab Documented By: KHRIS Vitamin D (Cholecalciferol (Vitamin D3) 25 Mcg Tablet) 50 mcg G-TUBE DAILY [facility] Last Admin: 12/11/24 08:24 Dose: 50 mcg Documented By: CURTIS Labs 12/08/24 08:57 12/08/24 08:57 Assessment and Plan (1) Tachycardia: Status: Acute (2) Sepsis: Status: Acute (3) Acute UTI: Status: Acute (4) Pneumonia: Status: Acute Plan 39-year-old male with a PMH significant for?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 Pt will be admitted to the hospital for treatment and further evaluation of CAMRYN and sepsis in the setting of acute UTI and acute bibasilar pneumonia. Acute UTI with sepsis Presented with blocked suprapubic catheter x 1 day, replaced in the ED s/p IVF , status post 5 days of IV cefepime Pt recently completed course of linezolid for UTI urine culture positive for enterobacter sensitive only to gentamicin and Bactrim and resistant to cefepime/blood cultures negative times 48 hours/WBC trending down on Bactrim 1 tablet twice daily started 12/05 for total 10 days end date 12/15 , ID agreed with treatment plan Acute hypoxic respiratory failure due to Bibasilar pneumonia/difficulty clearing secretion CTA of chest showed left greater than right bibasilar pneumonia,No PE Leukocytosis trending down likely due to steroids/infection on azithromycin 250 mg daily for 5 days started on 12/08 hx of dysphagia and aspiration pneumonia, currently on PEG tube diet Being followed by speech therapy they recommend to continue NPO/ice chips to moisten oral cavity only Requiring frequent suctioning/and use of oxygen, not on home O2 Scopolamine held due to significant dry mouth and tachycardia. Signed paperwork for suction machine that will be delivered by [employer] to patient's home on Wednesday 12/13 Acute leukocytosis multifactorial likely due to infection as above/due to chronic steroid use/reactive No diarrhea less likely C diff, WBC improved Acute hypokalemia repleted and normalized CAMRYN s/p IV fluids creatinine normalized continue water flushes Q 8 hours Sinus Tachycardia Multifactorial in the setting sepsis from UTI and pneumonia/anxiety/ dehydration/fever treat infection/ Monitor on telemetry Tachycardia improving /has chronic intermittent tachycardia will follow CTA chest 12/02 showed no PE, echo 10/2024 with mildly reduced EF 50-55%, otherwise within normal limits Diet PEG tube placed 11/24/2024 Tube feeding diet with Jevity 1 Kirk/speech recommend NPO NMO/MS or other dymyelinating disease Status post recent LP, CSF fluid oligoclonal bands negative likely has demyelinating disease mostly affecting brainstem and spinal cord with suspicion of autoimmune encephalitis, autoimmune CSF panel pend s/p IVIG x5 days, 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, Continue prednisone home dose, Continue Rituxan as outpatient as per Neurology Recommend outpatient follow-up with Neurology Mood disorder Continue sertraline Full Code DVT Prophylaxis: Eunice Spoke with patient with operations dispatcher regarding code status on 12/09 and again 12/10 patient is adamant to be full code, declined trach placement wants time to think, declined to go to rehab Plan to discharge home on Friday once suction machine is set up at home, requested family to come to hospital to learn suctioning 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,with poor prognosis discuss code status with them and patient he wishes to be full code at this time, discuss tracheostomy which patient declined, discuss disposition to rehab facility, family agreed however patient declined and adamant to be discharged home patient currently has 54 hours of WINDOW SYSTEMS ADMINISTRATOR services and they are requesting for more since patient requires 247 care with frequent suctioning, oral care, bed-bound is on G-tube feedings needs medication administration, change in frequent position, recommended family to discuss with PCP regarding increased WINDOW SYSTEMS ADMINISTRATOR hours. Quality Stroke Does the patient have a stroke diagnosis?: No VTE Prior VTE?: No VTE Risk Level:: Medical - moderate - high VTE Device Contraindication: Treatment Not Indicated VTE Drug Contraindication: N/A - Med Ordered
[2024-12-11 12:56] LABS: Glucose, Whole Blood 133 mg/dL (60-115)
[2024-12-11] MEDS: Azithromycin 250 MG TABLET G-TUBE (16:10)
[2024-12-11] MEDS: Sennosides 8.6 MG TABLET 17.2 MG G-TUBE (20:02)
[2024-12-11] MEDS: Melatonin 3 MG TABLET 6 MG G-TUBE (20:02)
[2024-12-11] MEDS: Enoxaparin Sodium 40 MG/0.4 ML SYRINGE SUBCUT (20:04)
[2024-12-12] VITALS: BP 124/80; PULSE 130; RESP 20; TEMP 36.2; O2SAT 98
[2024-12-12 04:00] VITALS: BP 120/73; PULSE 132; RESP 20; TEMP 36.2; O2SAT 97
[2024-12-12] MEDS: Acetaminophen 325 MG TABLET 650 MG G-TUBE (07:25)
[2024-12-12] MEDS: Sulfamethox/Trimeth 800/160 TABLET 1 TAB G-TUBE ×2 (07:25→21:45)
--- NOTE | 2024-12-12 07:39 | P.PNIM_ITS ---
Subjective Subjective Date of Service: 12/12/24 Interval History: Seen in follow up for UTI and pneumonia Interval history: Reports he wants to be picked up but then states he does not want to go home. He states he does not want to do this anymore , denies SI. Discussed code status, wants to remain full code. Remains tachycardic. NPO with PEG in place Review of Systems Review of Systems: Yes all other systems are reviewed and are negative Physical Exam 2 Vital Signs: Vital Signs: Last Vital Signs Temp 97.2 F 12/12/24 04:00 Pulse 132 H 12/12/24 04:00 Resp 20 12/12/24 04:00 BP 120/73 12/12/24 04:00 Pulse Ox 97 12/12/24 04:00 O2 Del Method Oxymask 12/12/24 04:00 O2 Flow Rate 6 12/12/24 04:00 Oxygen Flow Rate 6 12/02/24 12:11 BMI result Body Mass Index 23.9 Constitutional - Awake and Alert, No apparent distress Eyes - PERRLA, EOMI Cardiovascular - S1S2, RRR, No edema Respiratory - Normal lung expansion, Normal respiratory effort, No respiratory distress, CTA bilaterally - burciaga in place with yellow urine Extremities - no calf tenderness bilaterally, no swelling Skin - Warm/Dry Neurological - upper and lower spasticity Objective Data Active Medications Acetaminophen (Acetaminophen 325 Mg Tablet) 650 mg G-TUBE Q6H PRN PRN Reason: Pain, Mild 1-3,fever,headache Last Admin: 12/12/24 07:25 Dose: 650 mg Documented By: TONY Ascorbic Acid (Ascorbic Acid 500 Mg Tablet) 500 mg G-TUBE BID [facility] Last Admin: 12/11/24 20:02 Dose: 500 mg Documented By: KHRIS Azithromycin (Azithromycin 250 Mg Tablet) 250 mg G-TUBE Q24H [facility] Last Admin: 12/11/24 16:10 Dose: 250 mg Documented By: CURTIS Calcium Carbonate (Calcium Carbonate 750 Mg Tab.Chew) 750 mg G-TUBE Q4H PRN PRN Reason: Heartburn Cyclobenzaprine HCl (Cyclobenzaprine Hcl 10 Mg Tablet) 10 mg G-TUBE TID [facility] Last Admin: 12/11/24 20:03 Dose: 10 mg Documented By: KHRIS Enoxaparin Sodium (Enoxaparin Sodium 40 Mg/0.4 Ml Syringe) 40 mg SUBCUT Q24H [facility] Last Admin: 12/11/24 20:04 Dose: 40 mg Documented By: KHRIS Glycopyrrolate (Glycopyrrolate 0.2 Mg/Ml Vial) 0.1 mg IVPUSH Q4H PRN PRN Reason: secretions Last Admin: 12/10/24 22:42 Dose: 0.1 mg Documented By: KHRIS Magnesium Hydroxide (Milk Of Magnesia 30 Ml Oral.Susp) 30 ml G-TUBE DAILY PRN PRN Reason: Constipation Melatonin (Melatonin 3 Mg Tablet) 6 mg G-TUBE BEDTIME PRN PRN Reason: Insomnia Last Admin: 12/11/24 20:02 Dose: 6 mg Documented By: KHRIS Ondansetron HCl (Ondansetron Hcl 4 Mg/2 Ml Vial) 4 mg IVPUSH Q8H PRN PRN Reason: Nausea and Vomiting Prednisone (Prednisone 20 Mg Tablet) 20 mg PO DAILY [facility] Last Admin: 12/11/24 08:25 Dose: 20 mg Documented By: CURTIS Senna (Sennosides 8.6 Mg Tablet) 17.2 mg G-TUBE BEDTIME [facility] Last Admin: 12/11/24 20:02 Dose: 17.2 mg Documented By: KHRIS Sertraline HCl (Sertraline Hcl 50 Mg Tablet) 50 mg G-TUBE DAILY [facility] Last Admin: 12/11/24 08:24 Dose: 50 mg Documented By: CURTIS Sodium Chloride (0.9 % Sodium Chloride Flush 3 Ml Syringe) 3 ml IVFLUSH QSHIFT [facility] Last Admin: 12/11/24 16:11 Dose: 3 ml Documented By: CURTIS Trimethoprim/Sulfamethoxazole (Sulfamethox/Trimeth 800/160 Tablet) 1 tab G-TUBE Q12H [facility] Last Admin: 12/12/24 07:25 Dose: 1 tab Documented By: TONY Vitamin D (Cholecalciferol (Vitamin D3) 25 Mcg Tablet) 50 mcg G-TUBE DAILY [facility] Last Admin: 12/11/24 08:24 Dose: 50 mcg Documented By: CURTIS Labs 12/08/24 08:57 12/08/24 08:57 Labs: Laboratory Results - last 24 hr 12/11/24 11:59 POC Glucose 133 H Assessment and Plan (1) Tachycardia: Status: Acute (2) Sepsis: Status: Acute (3) Acute UTI: Status: Acute (4) Pneumonia: Status: Acute Plan 39-year-old male with a PMH significant for?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 Pt will be admitted to the hospital for treatment and further evaluation of CAMRYN and sepsis in the setting of acute UTI and acute bibasilar pneumonia. Acute UTI with sepsis Presented with blocked suprapubic catheter x 1 day, replaced in the ED s/p IVF , status post 5 days of IV cefepime Pt recently completed course of linezolid for UTI urine culture positive for enterobacter sensitive only to gentamicin and Bactrim and resistant to cefepime/blood cultures negative times 48 hours/WBC trending down on Bactrim 1 tablet twice daily started 12/05 for total 10 days end date 12/15 , ID agreed with treatment plan Acute hypoxic respiratory failure due to Bibasilar pneumonia/difficulty clearing secretion CTA of chest showed left greater than right bibasilar pneumonia,No PE Leukocytosis trending down likely due to steroids/infection on azithromycin 250 mg daily for 5 days started on 12/08 hx of dysphagia and aspiration pneumonia, currently on PEG tube diet Being followed by speech therapy they recommend to continue NPO/ice chips to moisten oral cavity only Requiring frequent suctioning/and use of oxygen, not on home O2 Scopolamine held due to significant dry mouth and tachycardia. Signed paperwork for suction machine that will be delivered by [email or web address] to patient's home on Wednesday 12/13 Acute leukocytosis multifactorial likely due to infection as above/due to chronic steroid use/reactive No diarrhea less likely C diff, WBC improved Acute hypokalemia repleted and normalized CAMRYN s/p IV fluids creatinine normalized continue water flushes Q 8 hours Sinus Tachycardia Multifactorial in the setting sepsis from UTI and pneumonia/anxiety/ dehydration/fever treat infection/ Monitor on telemetry Tachycardia improving /has chronic intermittent tachycardia will follow CTA chest 12/02 showed no PE, echo 10/2024 with mildly reduced EF 50-55%, otherwise within normal limits Diet PEG tube placed 11/24/2024 Tube feeding diet with Jevity 1 Kirk/speech recommend NPO NMO/MS or other dymyelinating disease Status post recent LP, CSF fluid oligoclonal bands negative likely has demyelinating disease mostly affecting brainstem and spinal cord with suspicion of autoimmune encephalitis, autoimmune CSF panel pend s/p IVIG x5 days, 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, Continue prednisone home dose, Continue Rituxan as outpatient as per Neurology Recommend outpatient follow-up with Neurology Mood disorder Continue sertraline Full Code DVT Prophylaxis: Lovejoaquinx Spoke with patient with insurance legal assistant regarding code status on 12/09 and again 12/10 and again 12/12 patient is adamant to be full code, declined trach placement wants time to think, declined to go to rehab Plan to discharge home on Friday once suction machine is set up at home, requested family to come to hospital to learn suctioning 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,with poor prognosis discuss code status with them and patient he wishes to be full code at this time, discuss tracheostomy which patient declined, discuss disposition to rehab facility, family agreed however patient declined and adamant to be discharged home patient currently has 54 hours of FREIGHT CAR CLEANER services and they are requesting for more since patient requires 247 care with frequent suctioning, oral care, bed-bound is on G-tube feedings needs medication administration, change in frequent position, recommended family to discuss with PCP regarding increased FREIGHT CAR CLEANER hours. Quality Stroke Does the patient have a stroke diagnosis?: No VTE Prior VTE?: No VTE Risk Level:: Medical - moderate - high VTE Device Contraindication: Treatment Not Indicated VTE Drug Contraindication: N/A - Med Ordered
[2024-12-12 08:00] VITALS: BP 125/79; PULSE 123; RESP 16; TEMP 36.8; O2SAT 95
[2024-12-12] MEDS: Sertraline HCL 50 MG TABLET G-TUBE (10:29)
[2024-12-12] MEDS: Cholecalciferol (Vitamin D3) 25 MCG TABLET 50 MCG G-TUBE (10:29)
[2024-12-12] MEDS: 0.9 % Sodium Chloride Flush 3 ML SYRINGE IVFLUSH ×4 (10:30→21:46)
[2024-12-12] MEDS: Ascorbic Acid 500 MG TABLET G-TUBE ×2 (10:30→21:46)
[2024-12-12] MEDS: Cyclobenzaprine HCl 10 MG TABLET G-TUBE ×3 (10:30→21:46)
[2024-12-12] MEDS: predniSONE 20 MG TABLET PO (10:30)
[2024-12-12 11:07] VITALS: BP 128/78; PULSE 122; RESP 18; TEMP 37.2; O2SAT 95
[2024-12-12 15:38] VITALS: BP 137/83; PULSE 115; RESP 16; TEMP 37.1; O2SAT 92
[2024-12-12] MEDS: Glycopyrrolate 0.2 MG/ML VIAL 0.1 MG IVPUSH (15:47)
[2024-12-12] MEDS: Azithromycin 250 MG TABLET G-TUBE (15:47)
[2024-12-12 20:00] VITALS: BP 111/72; PULSE 121; RESP 20; TEMP 37.3; O2SAT 98
[2024-12-12] MEDS: Enoxaparin Sodium 40 MG/0.4 ML SYRINGE SUBCUT (21:45)
[2024-12-12] MEDS: Sennosides 8.6 MG TABLET 17.2 MG G-TUBE (21:46)
[2024-12-13] VITALS (8 sets, daily range): BP systolic 121–139; BP diastolic 75–91; PULSE 121–140; RESP 16–20; TEMP 36.3–37; O2SAT 90–96
[2024-12-13 07:25] LABS: Basophils Absolute Auto 0.1 X10*3/uL (0.0-0.2); Basophils Percent Auto 0.4 % (0-2); Eosinophils Absolute Auto 0.2 X10*3/uL (0.0-0.4); Eosinophils Percent Auto 1.5 % (0-4); Hematocrit 30.5 % (42.0-52.0); Hemoglobin 9.7 g/dl (14.0-18.0); Imm Gran Abs Auto 0.11 X10*3/uL (0.00-0.03); Imm Gran Pct Auto 0.7 % (0.0-0.4); Lymphocytes Absolute Auto 1.2 X10*3/uL (1.2-4.9); Lymphocytes Percent Auto 7.5 % (20-40); MANUAL DIFF FLAG SCAN; Mean Corpuscular HGB Conc 31.8 g/dl (31.0-36.0); Mean Corpuscular Hemoglobin 24.2 pg (27.0-33.0); Mean Corpuscular Volume 76.1 fL (80.0-98.0); Mean Platelet Volume 11.5 fL (9.4-12.4); Monocytes Absolute Auto 1.5 X10*3/uL (0.1-1.2); Monocytes Percent Auto 9.7 % (2-11); Neutrophils Absolute Auto 12.4 x10*3/uL (2.0-8.3); Neutrophils Percent Auto 80.2 % (45-73); Platelet Count 401 X10*3/uL (160-400); Red Blood Count 4.01 X10*6/uL (4.60-5.80); Red Cell Distribution Width 19.5 % (11.0-16.0); SCAN SMEAR FLAG 1; White Blood Count 15.5 X10*3/uL (4.8-10.8)
[2024-12-13 07:36] LABS: Anion Gap 13 (12-20); Blood Urea Nitrogen 12 mg/dL (9-16); Calcium 9.3 mg/dL (8.4-10.2); Carbon Dioxide 27 mmol/L (22-29); Chloride 103 mmol/L (96-108); Creatinine Clr Calc Pharmacy 181.8; Estimated Glomerular Filt Rate > 60; Glucose Random 118 mg/dL (60-115); Potassium 3.6 mmol/L (3.3-5.1); Sodium 139 mmol/L (135-145)
[2024-12-13 07:45] LABS: SLIDE REVIEW VERIFIED
--- NOTE | 2024-12-13 08:28 | PM.DS ---
DS: Providers Provider Date of admission: 12/02/24 20:00 Primary care physician: Ebenezer Leslie MD Consults: 12/02/24 20:30 Consult to Infectious Diseases Routine Consulting Provider: [facility] Reason for consultation: UTI w/suprapubic cath, just finished linezolid 12/03/24 12:28 Consult to Neurology Routine Consulting Provider: [facility] Reason for consultation: atypical MS Has provider been notified: No 12/03/24 18:27 Consult to Wound Care Routine Reason for consultation: coccyx/buttocks Has provider been notified: Yes DS: Diagnosis Discharge Diagnosis (1) Tachycardia: Status: Acute (2) Sepsis: Status: Acute (3) Acute UTI: Status: Acute (4) Pneumonia: Status: Acute Physical Exam Vital Signs: Vital Signs: Last Vital Signs Temp 97.4 F 12/13/24 07:42 Pulse 133 H 12/13/24 07:42 Resp 20 12/13/24 07:42 BP 132/88 12/13/24 07:42 Pulse Ox 90 L 12/13/24 07:42 O2 Del Method Room Air 12/13/24 07:42 O2 Flow Rate 8 12/12/24 08:00 Oxygen Flow Rate 6 12/02/24 12:11 BMI result Body Mass Index 23.9 DS: Data Data Completed and Pending Completed studies during hospitalization [Text1]: Procedures Drainage of Bladder with Drainage Device, Percutaneous Endoscopic Approach (10/20/23) Drainage of Spinal Canal, Percutaneous Approach, Diagnostic (11/18/24) Fluoroscopy of Spinal Cord (11/18/24) Insertion of Feeding Device into Stomach, Percutaneous Approach (11/18/24) Introduction of Vasopressor into Peripheral Vein, Percutaneous Approach (04/05/23) Labs on day of discharge: Laboratory Results - last 24 hr 12/13/24 07:08 WBC 15.5 H RBC 4.01 L Hgb 9.7 L Hct 30.5 L MCV 76.1 L MCH 24.2 L MCHC 31.8 RDW 19.5 H Plt Count 401 H D MPV 11.5 Immature Gran % (Auto) 0.7 H Neut % (Auto) 80.2 H Lymph % (Auto) 7.5 L Hutchinson % (Auto) 9.7 Eos % (Auto) 1.5 Baso % (Auto) 0.4 Lymph # (Auto) 1.2 Hutchinson # (Auto) 1.5 H Eos # (Auto) 0.2 Baso # (Auto) 0.1 Abs Immat Gran (auto) 0.11 H Absolute Neuts (auto) 12.4 H Absolute Nucleated RBC 0.000 Nucleated RBC % (auto) 0.0 Smear Tech's Comments VERIFIED Sodium 139 Potassium 3.6 Chloride 103 Carbon Dioxide 27 Anion Gap 13 BUN 12 Creatinine 0.54 Estim Creat Clear Calc 181.8 Estimated GFR > 60 Random Glucose 118 H Calcium 9.3 D Discharge Plan Discharge Referrals: Name,MD Ebenezer [Primary Care Provider] - 1 Week Discharge Medications: Continued (DME) syringe disposable, irrigation 60 mL syringe See Rx Instructions .Route Qty: 2 5RF Rx Instructions: As directed 2 per month (DME) Villatoro Catheter Tray Tray See Rx Instructions .Route Qty: 2 5RF Rx Instructions: As directed 2 per month (DME) Bardia Urinary Drainage Bag Misc See Rx Instructions .Route Qty: 2 5RF Rx Instructions: As directed, 2 per month (DME) Urinary Leg Bag Misc See Rx Instructions .Route Qty: 4 5RF Rx Instructions: As directed, 4 per month. (DME) Villatoro Catheter 20 Fr misc See Rx Instructions .Route Qty: 2 5RF Rx Instructions: As directed, 2 per month. clotrimazole-betamethasone 1-0.05 % cream 1 appl topical BID prednisone 20 mg tablet 20 mg PO DAILY cyclobenzaprine 10 mg tablet 10 mg feeding tube TID Qty: 90 0RF acetaminophen 500 mg tablet 500 mg feeding tube Q6H PRN (Reason: mild pain) Qty: 90 0RF ascorbic acid (vitamin C) [Vitamin C] 500 mg tablet 500 mg feeding tube BID 90 Days Qty: 180 1RF sertraline 50 mg tablet 50 mg feeding tube DAILY Qty: 90 0RF cholecalciferol (vitamin D3) [Vitamin D3] 50 mcg (2,000 unit) capsule 50 mcg feeding tube DAILY Qty: 90 0RF sennosides [Senna Lax] 8.6 mg Tablet 17.2 mg G-tube BEDTIME Qty: 30 0RF Discontinued scopolamine base [Transderm-Scop] 1 mg over 3 days Patch 3 Day 1.5 mg EAR-BEHIND Q72H Qty: 10 0RF No Action clindamycin phosphate 1 % lotion 1 appl topical BID Print Language: Citizen Of [place]
[2024-12-13] MEDS: Cholecalciferol (Vitamin D3) 25 MCG TABLET 50 MCG G-TUBE (09:20)
[2024-12-13] MEDS: Ascorbic Acid 500 MG TABLET G-TUBE ×2 (09:20→20:48)
[2024-12-13] MEDS: Cyclobenzaprine HCl 10 MG TABLET G-TUBE ×3 (09:20→20:48)
[2024-12-13] MEDS: predniSONE 20 MG TABLET PO (09:20)
[2024-12-13] MEDS: Sertraline HCL 50 MG TABLET G-TUBE (09:20)
[2024-12-13] MEDS: Sulfamethox/Trimeth 800/160 TABLET 1 TAB G-TUBE ×2 (09:20→20:47)
[2024-12-13] MEDS: 0.9 % Sodium Chloride Flush 3 ML SYRINGE IVFLUSH ×2 (09:21→15:53)
--- NOTE | 2024-12-13 11:02 | MHC.CLN ---
F/U PT TOLERATING TF AT MAX GOAL RATE REVIEWED LABS-UNREMARKABLE PT RECEIVING JEVITY 1.0 AT 85 ML/ HR WITH 240ML FREE WATER FLUSHES Q 8 HOURS PROVIDES 2162 KCALS (29 KCALS/KG), 90 G PROTEIN (1.2 G/KG), 2433 ML TOTAL FREE WATER FROM FORMULA AND FLUSH (33 ML/KG) TF WILL PROMOTE WOUND HEALING CONTINUE TO MONITOR TOLERANCE AND LYTES
--- NOTE | 2024-12-13 13:27 | MHC.CM.PN ---
Addendum entered by Maria Luisa Haskins 12/13/24 14:00: [employer] is the supplier for the home suctioning machine. Original Note: CM called [phone] to speak with Patient's HCP/FRONT MAN/Shadi, but Shadi' (Patient's Niece/Angelique) answered the phone (CM could here Shadi in the background). CM discussed Patient's goal to return home to try to determine if home with services is a safe option (NA is unable to accept Patient again r/t their last encounter with Patient at home, who appeared not to be safe in the home setting)(issues with pain and tube feeds for example). CM has made referrals to all area VNAs that accept Patient's insurance and CM does not yet have an accepting VNA. [facility] provides home gt feeds and a referral has been sent to them; Niece states that they have 3 bottles of formula in the home and that Patient's Mother (who Niece states has some confusion/forgetfulness)will be the person assisting with tube feeds.Per RT/Dusty, the suctioning Machine can be delivered to the home and training on that machine would begin once Patient is in the home setting.CM asked Nimigdalia about the FRONT MAN in the past being unreliable and she explained that that FRONT MAN is no longer involved; Shadi is now the only FRONT MAN and will be available morning and evenings. CM asked who will be providing incontinence care and positioning changes etc, when Shadi is not in the home and there was no clear response. Shadi lives with his Parents, neither of whom appear can be involved with Patient's direct care (Father is w/c bound). FRANCI has discussed with ADELINA/Kelly and will continue to follow.
--- NOTE | 2024-12-13 15:16 | PM.EVENT ---
Event Note Date of Service: 12/13/24 Event Note: Discussion had in the presence of director case management and RN regarding discharge. Patient very strongly wishes to go home. However after discussing discharge with his healthcare proxy who is also his GRINDER MILL OPERATOR he is only able to have GRINDER MILL OPERATOR services (Shadi) for the morning in the evening but not during the middle of the day. HCP states that his mother has been caring for the patient in the middle of the day. However they report she has dementia and patient has not been getting the care he needs. Per VNA, he has missed tube feedings and has been in pain with elevated heart rate and blood pressure. The plan had been to attempt to get additional GRINDER MILL OPERATOR services for his care as well as installing suction at the house. Family was going to be trained on how to use the suction however additional GRINDER MILL OPERATOR services have not been set up. Therefore patient does not have a safe disposition. However, the patient is adamant that he wants to go home tonight. He is alert and oriented x4. He is able to tell us about his last discharge when he went home and he was unable to call for additional services. He states that if he goes home and his mother is unable to assist with his care, he will attempt to suctioning himself and assist his mom with other care. He states that if he For this reason, I do not feel this patient has capacity to make the decision to go home. Will place formal psychiatry consult for capacity assessment. Time Spent With Patient Time: Total time managing care of this patient today ____ minutes.
--- NOTE | 2024-12-13 15:21 | MHC.CM.PN ---
CM, ADELINA/Kelly, RT, and RN met with Patient at bedside. It was very difficult to understand Patient. Patient may benefit from a Capacity Eval; CM will follow.
[2024-12-13] MEDS: Azithromycin 250 MG TABLET G-TUBE (15:52)
[2024-12-13] MEDS: Acetaminophen 325 MG TABLET 650 MG G-TUBE (15:53)
--- NOTE | 2024-12-13 16:18 | MHC.SLORD ---
Speech Language Pathology Order Status: Pt not seen for dysphagia tx today. CLINICAL OFFICE TECHNICIAN continues to follow. Pt will need CLINICAL OFFICE TECHNICIAN intervention in next setting.
--- NOTE | 2024-12-13 17:21 | P.PNIM_ITS ---
Subjective Subjective Date of Service: 12/13/24 Interval History: Seen in follow up for UTI and pneumonia Interval history: Wants to go home. Long discussion had with patient and case management. Per healthcare proxy Shadi who is his CONSUMER MARKETING SPECIALIST in the morning and evening, there is no person able to take care of him during the day when he is unavailable. He previously had a CONSUMER MARKETING SPECIALIST who was not showing up and he was missing feeds and medications. Apparently his mother has been trying to help him but she has dementia. Patient wants to go home and refuses to change code status or decision about long-term care Review of Systems Review of Systems: Yes all other systems are reviewed and are negative Physical Exam 2 Vital Signs: Vital Signs: Last Vital Signs Temp 98.6 F 12/13/24 15:22 Pulse 138 H 12/13/24 15:22 Resp 20 12/13/24 15:22 BP 131/86 12/13/24 15:22 Pulse Ox 96 12/13/24 15:22 O2 Del Method Oxymask 12/13/24 15:22 O2 Flow Rate 7 12/13/24 15:22 Oxygen Flow Rate 6 12/02/24 12:11 BMI result Body Mass Index 23.9 Constitutional - Awake and Alert, No apparent distress Eyes - PERRLA, EOMI Cardiovascular - S1S2, RRR, No edema Respiratory - Normal lung expansion, Normal respiratory effort, No respiratory distress, CTA bilaterally - burciaga in place with yellow urine Extremities - no calf tenderness bilaterally, no swelling Skin - Warm/Dry Neurological - upper and lower spasticity Objective Data Active Medications Acetaminophen (Acetaminophen 325 Mg Tablet) 650 mg G-TUBE Q6H PRN PRN Reason: Pain, Mild 1-3,fever,headache Last Admin: 12/13/24 15:53 Dose: 650 mg Documented By: AMY Ascorbic Acid (Ascorbic Acid 500 Mg Tablet) 500 mg G-TUBE BID [facility] Last Admin: 12/13/24 09:20 Dose: 500 mg Documented By: AMY Azithromycin (Azithromycin 250 Mg Tablet) 250 mg G-TUBE Q24H [facility] Last Admin: 12/13/24 15:52 Dose: 250 mg Documented By: AMY Calcium Carbonate (Calcium Carbonate 750 Mg Tab.Chew) 750 mg G-TUBE Q4H PRN PRN Reason: Heartburn Cyclobenzaprine HCl (Cyclobenzaprine Hcl 10 Mg Tablet) 10 mg G-TUBE TID [facility] Last Admin: 12/13/24 15:52 Dose: 10 mg Documented By: AMY Enoxaparin Sodium (Enoxaparin Sodium 40 Mg/0.4 Ml Syringe) 40 mg SUBCUT Q24H [facility] Last Admin: 12/12/24 21:45 Dose: 40 mg Documented By: CECILE Glycopyrrolate (Glycopyrrolate 0.2 Mg/Ml Vial) 0.1 mg IVPUSH Q4H PRN PRN Reason: secretions Last Admin: 12/12/24 15:47 Dose: 0.1 mg Documented By: CURTIS Magnesium Hydroxide (Milk Of Magnesia 30 Ml Oral.Susp) 30 ml G-TUBE DAILY PRN PRN Reason: Constipation Melatonin (Melatonin 3 Mg Tablet) 6 mg G-TUBE BEDTIME PRN PRN Reason: Insomnia Last Admin: 12/11/24 20:02 Dose: 6 mg Documented By: KHRIS Ondansetron HCl (Ondansetron Hcl 4 Mg/2 Ml Vial) 4 mg IVPUSH Q8H PRN PRN Reason: Nausea and Vomiting Prednisone (Prednisone 20 Mg Tablet) 20 mg PO DAILY [facility] Last Admin: 12/13/24 09:20 Dose: 20 mg Documented By: AMY Senna (Sennosides 8.6 Mg Tablet) 17.2 mg G-TUBE BEDTIME [facility] Last Admin: 12/12/24 21:46 Dose: 17.2 mg Documented By: CECILE Sertraline HCl (Sertraline Hcl 50 Mg Tablet) 50 mg G-TUBE DAILY [facility] Last Admin: 12/13/24 09:20 Dose: 50 mg Documented By: AMY Sodium Chloride (0.9 % Sodium Chloride Flush 3 Ml Syringe) 3 ml IVFLUSH QSHIFT [facility] Last Admin: 12/13/24 15:53 Dose: 3 ml Documented By: AMY Trimethoprim/Sulfamethoxazole (Sulfamethox/Trimeth 800/160 Tablet) 1 tab G-TUBE Q12H [facility] Last Admin: 12/13/24 09:20 Dose: 1 tab Documented By: AMY Vitamin D (Cholecalciferol (Vitamin D3) 25 Mcg Tablet) 50 mcg G-TUBE DAILY [facility] Last Admin: 12/13/24 09:20 Dose: 50 mcg Documented By: AMY Labs 12/13/24 07:08 12/13/24 07:08 Labs: Laboratory Results - last 24 hr 12/13/24 07:08 MCV 76.1 L MCH 24.2 L MCHC 31.8 RDW 19.5 H Plt Count 401 H D MPV 11.5 Immature Gran % (Auto) 0.7 H Neut % (Auto) 80.2 H Lymph % (Auto) 7.5 L Creek % (Auto) 9.7 Eos % (Auto) 1.5 Baso % (Auto) 0.4 Lymph # (Auto) 1.2 Creek # (Auto) 1.5 H Eos # (Auto) 0.2 Baso # (Auto) 0.1 Abs Immat Gran (auto) 0.11 H Absolute Neuts (auto) 12.4 H Absolute Nucleated RBC 0.000 Nucleated RBC % (auto) 0.0 Smear Tech's Comments VERIFIED Anion Gap 13 Estim Creat Clear Calc 181.8 Estimated GFR > 60 Random Glucose 118 H Calcium 9.3 D Assessment and Plan (1) Tachycardia: Status: Acute (2) Sepsis: Status: Acute (3) Acute UTI: Status: Acute (4) Pneumonia: Status: Acute Plan 39-year-old male with a PMH significant for?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 Pt will be admitted to the hospital for treatment and further evaluation of CAMRYN and sepsis in the setting of acute UTI and acute bibasilar pneumonia. Acute UTI with sepsis Presented with blocked suprapubic catheter x 1 day, replaced in the ED s/p IVF , status post 5 days of IV cefepime Pt recently completed course of linezolid for UTI urine culture positive for enterobacter sensitive only to gentamicin and Bactrim and resistant to cefepime/blood cultures negative times 48 hours/WBC trending down on Bactrim 1 tablet twice daily started 12/05 for total 10 days end date 12/15 , ID agreed with treatment plan Acute hypoxic respiratory failure due to Bibasilar pneumonia/difficulty clearing secretion CTA of chest showed left greater than right bibasilar pneumonia,No PE Leukocytosis trending down likely due to steroids/infection on azithromycin 250 mg daily for 5 days started on 12/08 hx of dysphagia and aspiration pneumonia, currently on PEG tube diet Being followed by speech therapy they recommend to continue NPO/ice chips to moisten oral cavity only Requiring frequent suctioning/and use of oxygen, not on home O2 Scopolamine held due to significant dry mouth and tachycardia. Signed paperwork for suction machine that will be delivered by [employer] to patient's home on Wednesday 12/13 Acute leukocytosis multifactorial likely due to infection as above/due to chronic steroid use/reactive No diarrhea less likely C diff, WBC improved Acute hypokalemia repleted and normalized CAMRYN s/p IV fluids creatinine normalized continue water flushes Q 8 hours Sinus Tachycardia Multifactorial in the setting sepsis from UTI and pneumonia/anxiety/ dehydration/fever treat infection/ Monitor on telemetry Tachycardia improving /has chronic intermittent tachycardia will follow CTA chest 12/02 showed no PE, echo 10/2024 with mildly reduced EF 50-55%, otherwise within normal limits Diet PEG tube placed 11/24/2024 Tube feeding diet with Jevity 1 Kirk/speech recommend NPO NMO/MS or other dymyelinating disease Status post recent LP, CSF fluid oligoclonal bands negative likely has demyelinating disease mostly affecting brainstem and spinal cord with suspicion of autoimmune encephalitis, autoimmune CSF panel pend s/p IVIG x5 days, 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, Continue prednisone home dose, Continue Rituxan as outpatient as per Neurology Recommend outpatient follow-up with Neurology Mood disorder Continue sertraline Full Code DVT Prophylaxis: Lovenox Spoke with patient with chest painting leader regarding code status on 12/09 and again 12/10 and again 12/12 patient is adamant to be full code, declined trach placement wants time to think, declined to go to rehab Plan to discharge home on Friday once suction machine is set up at home, requested family to come to hospital to learn suctioning 12/13 additional conversation had with Shadi who is patient's healthcare proxy as well as CONSUMER MARKETING SPECIALIST in the morning and evening. Apparently, CONSUMER MARKETING SPECIALIST has not been showing up and patient has been missing medications and tube feeds. VNA is no longer going to the house. His mother has been attempting to help him during the day but has dementia. The patient does not have a safe disposition. He is adamant he wants to go home. Discussion had with patient and case management regarding situation. He is alert and oriented x4. When asked what he will do if he goes home and his mother is not able to help him during the day when his CONSUMER MARKETING SPECIALIST is unavailable, he states that he will help his mother's suction him and with the tube feeds. When asked what he will do if he is unable to do so, he states he will call an ambulance and returned to the hospital. He does not appear to understand the gravity of the situation as well as the concern for safety and his inability to perform tasks such as self-care. At this time, I do not feel he has capacity and formal psychiatry consult is placed for capacity assessment. 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,with poor prognosis discuss code status with them and patient he wishes to be full code at this time, discuss tracheostomy which patient declined, discuss disposition to rehab facility, family agreed however patient declined and adamant to be discharged home patient currently has 54 hours of CONSUMER MARKETING SPECIALIST services and they are requesting for more since patient requires 247 care with frequent suctioning, oral care, bed-bound is on G-tube feedings needs medication administration, change in frequent position, recommended family to discuss with PCP regarding increased CONSUMER MARKETING SPECIALIST hours. Quality Stroke Does the patient have a stroke diagnosis?: No VTE Prior VTE?: No VTE Risk Level:: Medical - moderate - high VTE Device Contraindication: Treatment Not Indicated VTE Drug Contraindication: N/A - Med Ordered
[2024-12-13] MEDS: Enoxaparin Sodium 40 MG/0.4 ML SYRINGE SUBCUT (20:47)
[2024-12-13] MEDS: hydrOXYzine HCL 25 MG TABLET G-TUBE (20:48)
[2024-12-13] MEDS: Sennosides 8.6 MG TABLET 17.2 MG G-TUBE (20:49)
[2024-12-13] MEDS: Melatonin 3 MG TABLET 6 MG G-TUBE (20:49)
[2024-12-14] MEDS: 0.9 % Sodium Chloride Flush 3 ML SYRINGE IVFLUSH ×3 (01:25→15:43)
[2024-12-14] MEDS: Acetaminophen 325 MG TABLET 650 MG G-TUBE ×2 (02:54→20:43)
[2024-12-14 03:11] VITALS: BP 129/83; PULSE 127; RESP 18; TEMP 36.3; O2SAT 92
[2024-12-14 07:10] VITALS: BP 124/67; PULSE 116; RESP 17; TEMP 36.1; O2SAT 95
--- NOTE | 2024-12-14 08:25 | P.PNIM_ITS ---
Subjective Subjective Date of Service: 12/14/24 Interval History: Seen in follow up for UTI and pneumonia Interval history: Wants to go home. Requesting to be suctioned. No other complainsts Review of Systems Review of Systems: Yes all other systems are reviewed and are negative Physical Exam 2 Vital Signs: Vital Signs: Last Vital Signs Temp 97.0 F 12/14/24 07:10 Pulse 116 H 12/14/24 07:10 Resp 17 12/14/24 07:10 BP 124/67 12/14/24 07:10 Pulse Ox 95 12/14/24 07:10 O2 Del Method Nasal Cannula 12/14/24 07:10 O2 Flow Rate 2 12/14/24 07:10 Oxygen Flow Rate 6 12/02/24 12:11 BMI result Body Mass Index 23.9 Constitutional - Awake and Alert, No apparent distress Eyes - PERRLA, EOMI Cardiovascular - S1S2, RRR, No edema Respiratory - Normal lung expansion, No respiratory distress, bilateral rhonchi, gurgling - burciaga in place with yellow urine Extremities - no calf tenderness bilaterally, no swelling Skin - Warm/Dry Neurological - upper and lower spasticity Objective Data Active Medications Acetaminophen (Acetaminophen 325 Mg Tablet) 650 mg G-TUBE Q6H PRN PRN Reason: Pain, Mild 1-3,fever,headache Last Admin: 12/14/24 02:54 Dose: 650 mg Documented By: ALONDRA Ascorbic Acid (Ascorbic Acid 500 Mg Tablet) 500 mg G-TUBE BID [facility] Last Admin: 12/13/24 20:48 Dose: 500 mg Documented By: PERRI Azithromycin (Azithromycin 250 Mg Tablet) 250 mg G-TUBE Q24H [facility] Last Admin: 12/13/24 15:52 Dose: 250 mg Documented By: AMY Calcium Carbonate (Calcium Carbonate 750 Mg Tab.Chew) 750 mg G-TUBE Q4H PRN PRN Reason: Heartburn Cyclobenzaprine HCl (Cyclobenzaprine Hcl 10 Mg Tablet) 10 mg G-TUBE TID [facility] Last Admin: 12/13/24 20:48 Dose: 10 mg Documented By: PERRI Enoxaparin Sodium (Enoxaparin Sodium 40 Mg/0.4 Ml Syringe) 40 mg SUBCUT Q24H [facility] Last Admin: 12/13/24 20:47 Dose: 40 mg Documented By: PERRI Glycopyrrolate (Glycopyrrolate 0.2 Mg/Ml Vial) 0.1 mg IVPUSH Q4H PRN PRN Reason: secretions Last Admin: 12/12/24 15:47 Dose: 0.1 mg Documented By: CURTIS Magnesium Hydroxide (Milk Of Magnesia 30 Ml Oral.Susp) 30 ml G-TUBE DAILY PRN PRN Reason: Constipation Melatonin (Melatonin 3 Mg Tablet) 6 mg G-TUBE BEDTIME PRN PRN Reason: Insomnia Last Admin: 12/13/24 20:49 Dose: 6 mg Documented By: PERRI Ondansetron HCl (Ondansetron Hcl 4 Mg/2 Ml Vial) 4 mg IVPUSH Q8H PRN PRN Reason: Nausea and Vomiting Prednisone (Prednisone 20 Mg Tablet) 20 mg PO DAILY [facility] Last Admin: 12/13/24 09:20 Dose: 20 mg Documented By: AMY Senna (Sennosides 8.6 Mg Tablet) 17.2 mg G-TUBE BEDTIME [facility] Last Admin: 12/13/24 20:49 Dose: 17.2 mg Documented By: PERRI Sertraline HCl (Sertraline Hcl 50 Mg Tablet) 50 mg G-TUBE DAILY [facility] Last Admin: 12/13/24 09:20 Dose: 50 mg Documented By: AMY Sodium Chloride (0.9 % Sodium Chloride Flush 3 Ml Syringe) 3 ml IVFLUSH QSHIFT [facility] Last Admin: 12/14/24 01:25 Dose: 3 ml Documented By: PERRI Trimethoprim/Sulfamethoxazole (Sulfamethox/Trimeth 800/160 Tablet) 1 tab G-TUBE Q12H [facility] Last Admin: 12/13/24 20:47 Dose: 1 tab Documented By: PERRI Vitamin D (Cholecalciferol (Vitamin D3) 25 Mcg Tablet) 50 mcg G-TUBE DAILY [facility] Last Admin: 12/13/24 09:20 Dose: 50 mcg Documented By: AMY Labs 12/13/24 07:08 12/13/24 07:08 Assessment and Plan (1) Tachycardia: Status: Acute (2) Sepsis: Status: Acute (3) Acute UTI: Status: Acute (4) Pneumonia: Status: Acute Plan 39-year-old male with a PMH significant for?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 Pt will be admitted to the hospital for treatment and further evaluation of CAMRYN and sepsis in the setting of acute UTI and acute bibasilar pneumonia. Acute UTI with sepsis Presented with blocked suprapubic catheter x 1 day, replaced in the ED s/p IVF , status post 5 days of IV cefepime Pt recently completed course of linezolid for UTI urine culture positive for enterobacter sensitive only to gentamicin and Bactrim and resistant to cefepime/blood cultures negative times 48 hours/WBC trending down on Bactrim 1 tablet twice daily started 12/05 for total 10 days end date 12/15 , ID agreed with treatment plan Acute hypoxic respiratory failure due to Bibasilar pneumonia/difficulty clearing secretion CTA of chest showed left greater than right bibasilar pneumonia,No PE Leukocytosis trending down likely due to steroids/infection on azithromycin 250 mg daily for 5 days started on 12/08 hx of dysphagia and aspiration pneumonia, currently on PEG tube diet Being followed by speech therapy they recommend to continue NPO/ice chips to moisten oral cavity only Requiring frequent suctioning/and use of oxygen, not on home O2 Scopolamine held due to significant dry mouth and tachycardia. Signed paperwork for suction machine that will be delivered by [employer] to patient's home on Wednesday 12/13 Acute leukocytosis multifactorial likely due to infection as above/due to chronic steroid use/reactive No diarrhea less likely C diff, WBC improved Acute hypokalemia repleted and normalized CAMRYN s/p IV fluids creatinine normalized continue water flushes Q 8 hours Sinus Tachycardia Multifactorial in the setting sepsis from UTI and pneumonia/anxiety/ dehydration/fever treat infection/ Monitor on telemetry Tachycardia improving /has chronic intermittent tachycardia will follow CTA chest 12/02 showed no PE, echo 10/2024 with mildly reduced EF 50-55%, otherwise within normal limits Diet PEG tube placed 11/24/2024 Tube feeding diet with Jevity 1 Kirk/speech recommend NPO NMO/MS or other dymyelinating disease Status post recent LP, CSF fluid oligoclonal bands negative likely has demyelinating disease mostly affecting brainstem and spinal cord with suspicion of autoimmune encephalitis, autoimmune CSF panel pend s/p IVIG x5 days, 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 Patient does not have capacity to make decision to discharge home without safe disposition. See note from 12/14 Health care proxy invoked. Discussed with HCP Shadi who would like to obtain full-time SOLUTIONS DELIVERY CONSULTANT care so the patient can safely come home. We will discuss further with case management in the morning. Patient requires ongoing inpatient stay for safe disposition 12/13 additional conversation had with Shadi who is patient's healthcare proxy as well as SOLUTIONS DELIVERY CONSULTANT in the morning and evening. Apparently, SOLUTIONS DELIVERY CONSULTANT has not been showing up and patient has been missing medications and tube feeds. VNA is no longer going to the house. His mother has been attempting to help him during the day but has dementia. The patient does not have a safe disposition. He is adamant he wants to go home. Discussion had with patient and case management regarding situation. He is alert and oriented x4. When asked what he will do if he goes home and his mother is not able to help him during the day when his SOLUTIONS DELIVERY CONSULTANT is unavailable, he states that he will help his mother's suction him and with the tube feeds. When asked what he will do if he is unable to do so, he states he will call an ambulance and returned to the hospital. He does not appear to understand the gravity of the situation as well as the concern for safety and his inability to perform tasks such as self-care. At this time, I do not feel he has capacity and formal psychiatry consult is placed for capacity assessment. 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,with poor prognosis discuss code status with them and patient he wishes to be full code at this time, discuss tracheostomy which patient declined, discuss disposition to rehab facility, family agreed however patient declined and adamant to be discharged home patient currently has 54 hours of SOLUTIONS DELIVERY CONSULTANT services and they are requesting for more since patient requires 247 care with frequent suctioning, oral care, bed-bound is on G-tube feedings needs medication administration, change in frequent position, recommended family to discuss with PCP regarding increased SOLUTIONS DELIVERY CONSULTANT hours. Quality Stroke Does the patient have a stroke diagnosis?: No VTE Prior VTE?: No VTE Risk Level:: Medical - moderate - high VTE Device Contraindication: Treatment Not Indicated VTE Drug Contraindication: N/A - Med Ordered
[2024-12-14] MEDS: Cholecalciferol (Vitamin D3) 25 MCG TABLET 50 MCG G-TUBE (10:19)
[2024-12-14] MEDS: Ascorbic Acid 500 MG TABLET G-TUBE ×2 (10:19→20:38)
[2024-12-14] MEDS: Sulfamethox/Trimeth 800/160 TABLET 1 TAB G-TUBE ×2 (10:20→20:38)
[2024-12-14] MEDS: Cyclobenzaprine HCl 10 MG TABLET G-TUBE ×3 (10:20→20:39)
[2024-12-14] MEDS: predniSONE 20 MG TABLET PO (10:20)
[2024-12-14] MEDS: Sertraline HCL 50 MG TABLET G-TUBE (10:20)
[2024-12-14] MEDS: hydrOXYzine HCL 25 MG TABLET G-TUBE (10:20)
[2024-12-14 10:54] VITALS: BP 115/75; PULSE 123; RESP 18; TEMP 36.4; O2SAT 94
[2024-12-14] MEDS: Azithromycin 250 MG TABLET G-TUBE (13:58)
[2024-12-14 14:51] VITALS: BP 145/76; PULSE 121; RESP 18; TEMP 36.4; O2SAT 99
--- NOTE | 2024-12-14 15:55 | PM.PSYCN ---
History of Present Illness Date of Service: 12/14/2024 Chief Complaint: UTI and pnuemonia w/sepsis Reason for Consult: capacity assessment Requesting physician: Kelly Sinha Discussed with referring provider: Yes Sources of Information: patient interviewed, chart reviewed and crisis/core team assessment reviewed HPI Narrative: Mr. 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 Pt is total care and lives at home with mother who reportedly has cognitive impairments. He needs assistance with repositioning, suctioning, feedings (NPO with PEG tube). He has been offered tracheostomy but he declined. His brother, who is his TELEVISION INSTALLER and HCP, has raised concerns in terms of having only one TELEVISION INSTALLER for limited hours during the day when in fact he requires 24/7 support. This ticket writer met with Mr. Gilman and his attending, ADELINA Cabrera. Pt has severe difficulty communicating due to dysarthria but also excessive secretions, requiring almost constant suctioning he is not able to do on his own. He had expressed that he plan to return home, hopes mother can help otherwise he will come to the hospital. On this base, he also declines nursing home facility that can actually consistently and around the clock can meet his needs. 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 Microcytic anemia Multiple sclerosis Headache Surgical History H/O hernia repair Diagnostics Vital Signs (24Hr): Vital Signs - 24 hr 12/13/24 20:00 12/13/24 23:34 12/14/24 03:11 Temperature 97.9 F 97.4 F 97.4 F Pulse Rate 131 H 125 H 127 H Respiratory Rate 16 18 18 Blood Pressure 121/75 131/83 129/83 Pulse Oximetry 94 91 L 92 Oxygen Delivery Method Oxymask Nasal Cannula Nasal Cannula Oxygen Flow Rate 5 4 2 12/14/24 07:10 12/14/24 10:54 12/14/24 14:51 Temperature 97.0 F 97.5 F 97.5 F Pulse Rate 116 H 123 H 121 H Respiratory Rate 17 18 18 Blood Pressure 124/67 115/75 145/76 H Pulse Oximetry 95 94 99 Oxygen Delivery Method Nasal Cannula Oxymask Nasal Cannula Oxygen Flow Rate 2 6 5 BMI result Body Mass Index 23.9 Labs 12/13/24 07:08 12/13/24 07:08 Labs: Laboratory Results - last 48 hr 12/13/24 07:08 WBC 15.5 H RBC 4.01 L Hgb 9.7 L Hct 30.5 L MCV 76.1 L MCH 24.2 L MCHC 31.8 RDW 19.5 H Plt Count 401 H D MPV 11.5 Immature Gran % (Auto) 0.7 H Neut % (Auto) 80.2 H Lymph % (Auto) 7.5 L Reynolds % (Auto) 9.7 Eos % (Auto) 1.5 Baso % (Auto) 0.4 Lymph # (Auto) 1.2 Reynolds # (Auto) 1.5 H Eos # (Auto) 0.2 Baso # (Auto) 0.1 Abs Immat Gran (auto) 0.11 H Absolute Neuts (auto) 12.4 H Absolute Nucleated RBC 0.000 Nucleated RBC % (auto) 0.0 Smear Tech's Comments VERIFIED Sodium 139 Potassium 3.6 Chloride 103 Carbon Dioxide 27 Anion Gap 13 BUN 12 Creatinine 0.54 Estim Creat Clear Calc 181.8 Estimated GFR > 60 Random Glucose 118 H Calcium 9.3 D Imaging Radiology Impressions: ITS Impressions Chest X-Ray 12/02/24 13:14 IMPRESSION: Subsegmental atelectasis versus airspace disease, left lower hemithorax. Electronically signed by: Alejandro Miguel MD 12/02/2024 01:24 PM EST RP Chest X-Ray 12/02/24 15:35 IMPRESSION: Right-sided central venous line placed ending SVC without gross pneumothorax. Electronically signed by: Alejandro Miguel MD 12/02/2024 03:46 PM EST RP Mental Status Exam Mental Status Exam Narrative: Pt paraplegic, can't move himself. Head up, excessive secretion, requesting with much difficulty to communicate help with suctioning. Medications Medications Current Medications Acetaminophen (Acetaminophen 325 Mg Tablet) 650 mg G-TUBE Q6H PRN PRN Reason: Pain, Mild 1-3,fever,headache Last Admin: 12/14/24 02:54 Dose: 650 mg Ascorbic Acid (Ascorbic Acid 500 Mg Tablet) 500 mg G-TUBE BID [facility] Last Admin: 12/14/24 10:19 Dose: 500 mg Azithromycin (Azithromycin 250 Mg Tablet) 250 mg G-TUBE Q24H [facility] Last Admin: 12/14/24 13:58 Dose: 250 mg Calcium Carbonate (Calcium Carbonate 750 Mg Tab.Chew) 750 mg G-TUBE Q4H PRN PRN Reason: Heartburn Cyclobenzaprine HCl (Cyclobenzaprine Hcl 10 Mg Tablet) 10 mg G-TUBE TID [facility] Last Admin: 12/14/24 13:58 Dose: 10 mg Enoxaparin Sodium (Enoxaparin Sodium 40 Mg/0.4 Ml Syringe) 40 mg SUBCUT Q24H [facility] Last Admin: 12/13/24 20:47 Dose: 40 mg Glycopyrrolate (Glycopyrrolate 0.2 Mg/Ml Vial) 0.1 mg IVPUSH Q4H PRN PRN Reason: secretions Last Admin: 12/12/24 15:47 Dose: 0.1 mg Magnesium Hydroxide (Milk Of Magnesia 30 Ml Oral.Susp) 30 ml G-TUBE DAILY PRN PRN Reason: Constipation Melatonin (Melatonin 3 Mg Tablet) 6 mg G-TUBE BEDTIME PRN PRN Reason: Insomnia Last Admin: 12/13/24 20:49 Dose: 6 mg Ondansetron HCl (Ondansetron Hcl 4 Mg/2 Ml Vial) 4 mg IVPUSH Q8H PRN PRN Reason: Nausea and Vomiting Prednisone (Prednisone 20 Mg Tablet) 20 mg PO DAILY [facility] Last Admin: 12/14/24 10:20 Dose: 20 mg Senna (Sennosides 8.6 Mg Tablet) 17.2 mg G-TUBE BEDTIME [facility] Last Admin: 12/13/24 20:49 Dose: 17.2 mg Sertraline HCl (Sertraline Hcl 50 Mg Tablet) 50 mg G-TUBE DAILY [facility] Last Admin: 12/14/24 10:20 Dose: 50 mg Sodium Chloride (0.9 % Sodium Chloride Flush 3 Ml Syringe) 3 ml IVFLUSH QSHIFT [facility] Last Admin: 12/14/24 15:43 Dose: 3 ml Trimethoprim/Sulfamethoxazole (Sulfamethox/Trimeth 800/160 Tablet) 1 tab G-TUBE Q12H [facility] Last Admin: 12/14/24 10:20 Dose: 1 tab Vitamin D (Cholecalciferol (Vitamin D3) 25 Mcg Tablet) 50 mcg G-TUBE DAILY [facility] Last Admin: 12/14/24 10:19 Dose: 50 mcg Allergies Allergies Allergy/AdvReac Type Severity Reaction Status Date / Time doxycycline Allergy Rash Verified 12/02/24 12:13 Assessment & Plan Assessment & Plan (1) Encounter for assessment of decision-making capacity: Status: Acute Code(s): Z00.8 - Encounter for other general examination Plan Mr. Gilman is a 39 year-old male with hx of WOODEN FENCE ERECTOR demyelinating disease, paraplegic,excessive secretions requiring constant suctioning. He is total care for positioning, feedings (NPO with PEG tube placement), with burciaga. He was readmitted in less than 3 days after medically admitted for complications related to chronic conditions including aspiration pneumonia, UTI, cystitis, CAMRYN and sepsis. He asks to return home, even though he does not have enough support to meet his needs. When attempting to discuss this, as hospitalist has done with patient, he reports mother can help, when family reports mother has dementia, otherwise he will come to the hospital, without showing much ability to reason as to increase support and 24/7 care will ameliorate exacerbation of potentially preventable complications, such as aspiration pneumonia and recurrent UTI. It is my clinical opinion that Mr. Gilman lacks capacity to make medical decisions due to decrease insight into extend of physical impairments and need for support, therefore, not being able to see concerns that others have, and limited ability to show reasoning as to how declining higher level of care would prevent potentially life threatening situation as he is not able to move, nor speak easily in event of emergency. Moreover, his ability to verbalize a choice is very limited, although he eventually does speak with significant dysarthria. Total time managing care of this patient today ____ minutes.
[2024-12-14] MEDS: LORazepam 2 MG/ML VIAL 1 MG IVPUSH (18:18)
--- NOTE | 2024-12-14 18:55 | PC.NURSE ---
1800- Pt HR high 130's. Pt anxious and stating Don't leave me Kelly Sinha notified. IV ativan ordered and given. HR low 130's at this time. O2 sats on 5L oxymask 90-92% Pt appears with some decreased anxiety
[2024-12-14 19:39] VITALS: BP 106/65; PULSE 137; RESP 20; TEMP 36.9; O2SAT 93
[2024-12-14] MEDS: Sennosides 8.6 MG TABLET 17.2 MG G-TUBE (20:38)
[2024-12-14] MEDS: Enoxaparin Sodium 40 MG/0.4 ML SYRINGE SUBCUT (20:39)
[2024-12-14] MEDS: Melatonin 3 MG TABLET 6 MG G-TUBE (20:43)
[2024-12-15] VITALS (51 sets, daily range): BP systolic 80–135; BP diastolic 44–98; PULSE 77–148; RESP 16–18; TEMP 32–38.8; O2SAT 88–100
[2024-12-15] MEDS: 0.9 % Sodium Chloride Flush 3 ML SYRINGE IVFLUSH ×4 (01:15→21:34)
[2024-12-15] MEDS: LORazepam 2 MG/ML VIAL 1 MG IVPUSH (01:19)
[2024-12-15] MEDS: Etomidate 20 MG/10 ML VIAL IVPUSH (03:24)
[2024-12-15] MEDS: Rocuronium Bromide 50 MG/5 ML VIAL IVPUSH (03:25)
--- NOTE | 2024-12-15 03:50 | PM.EVENT ---
Event Note Date of Service: 12/15/24 Event Note: Acute respiratory failure with hypoxia Called for patient with persistent hypoxia and tachycardia. Noted with SpO2 in the high 70's on a NRM and getting worse. He admits to feeling short of breath. In a span of less than 1 hour, his SpO2 continued to drop and so was plaved on high flow. His SpO2 unfortunately fropped to 68% on high flow 55 L and 100% FiO2 He remained tachycardic at > 140 bpm Ass/Plan # Acute respiratory failure with hypoxia - unclear etiology - could be due to underlying pneumonia - decision made to intubate and transfer to ICU Time Spent With Patient Time: Total time managing care of this patient today _60___ minutes.
--- NOTE | 2024-12-15 03:58 | PC.NURSE ---
18:45 12/14/24 Received RN handover and acquired care of pt. Pt. awake, resting in bed. Pt. ST 130's on tele monitor. Afebrile. Pt. met on 5L Oxymask but pt. keeps taking O2 off and desat'ing to 83-85% on RA. Pt. stating I dont' care . Pt. tearful. also taking off O2 sat probe. O2 sat's 90-93% on 5L Oxymask. Pt. changed to 7L Polanco NC and kept on. Pt. with scant. upper airway secretions. Pt. refused 12am BP. Pt refusing suctioning and biting Yankour and thrashing head. At 0119 pt. medicated with as needed 1mg IV ativan for anxiousness. Pt wanting someone to stay with him. HR 136-138. At 0200, pt. noted to desat to 86-88% on 7L Polanco NC. Notified RT. Pt. changed back to Oxymask at 7L with no improvement. [address] Walker notified via T.Text of pt. desaturation, HR and events of night. Pt. placed on high flow NC at 55L and 100% fio2 with sat's 68%. LS present. Minimal secretions. Dr. Walker at bedside. ICU consulted. Pt. intubated by Dr. Spear w/ RT and Nrsg. Primer Inserting Machine Operator Floridalma. Pt. to CT with RT, and Nsg. Primer Inserting Machine Operator. Handover to Juan REDDY.
[2024-12-15] MEDS: dilTIAZem HCL 50 MG/10 ML VIAL 10 MG IVPUSH (04:00)
[2024-12-15 04:26] LABS: ABG Base Excess 6.1 mmol/L; ABG HCO3 31 mmol/L (22-26); ABG pCO2 46 mmHg (32-45); ABG pH 7.43 (7.35-7.45); ABG pO2 69 mmHg (83-108)
[2024-12-15 04:38] LABS: Basophils Absolute Auto 0.1 X10*3/uL (0.0-0.2); Basophils Percent Auto 0.2 % (0-2); Eosinophils Percent Auto 0.1 % (0-4); Hematocrit 31.8 % (42.0-52.0); Hemoglobin 10.2 g/dl (14.0-18.0); Imm Gran Abs Auto 0.24 X10*3/uL (0.00-0.03); Imm Gran Pct Auto 0.9 % (0.0-0.4); Lymphocytes Absolute Auto 0.8 X10*3/uL (1.2-4.9); MANUAL DIFF FLAG SCAN; Mean Corpuscular HGB Conc 32.1 g/dl (31.0-36.0); Mean Corpuscular Hemoglobin 24.5 pg (27.0-33.0); Mean Corpuscular Volume 76.4 fL (80.0-98.0); Mean Platelet Volume 11.4 fL (9.4-12.4); Monocytes Absolute Auto 2.1 X10*3/uL (0.1-1.2); Monocytes Percent Auto 8.1 % (2-11); Neutrophils Absolute Auto 22.5 x10*3/uL (2.0-8.3); Neutrophils Percent Auto 87.7 % (45-73); Platelet Count 452 X10*3/uL (160-400); Red Blood Count 4.16 X10*6/uL (4.60-5.80); Red Cell Distribution Width 19.7 % (11.0-16.0); SCAN SMEAR FLAG 1; White Blood Count 25.6 X10*3/uL (4.8-10.8)
[2024-12-15] MEDS: Lactated Ringers 1,000 ML 100 ML IVCONT (04:39)
--- NOTE | 2024-12-15 04:39 | P.PNCC_ITS ---
Critical Care Event Note Summary Date of Service: 12/15/24 <ADELINA Cruz - Last Filed: 12/15/24 06:29> Code activated: No <ADELINA Cruz - Last Filed: 12/15/24 06:29> Narrative: This case had a high probability of a clinically significant, sudden, or life threatening deterioration of this patient's condition which required my full and direct attention, intervention and personal management. <ADELINA Cruz - Last Filed: 12/15/24 06:29> Critical Care Time (minutes): 60 <ADELINA Cruz - Last Filed: 12/15/24 06:29> Comment: HPI/Hospital course: ?Patient was admitted to the hospital on 12/02/2024 due to acute sepsis in the setting of UTI and pneumonia of the bibasilar lungs who has underlying history of MS/neuromyelitis optica and other demyelinating conditions, neurogenic bladder with suprapubic catheter, recurrent UTIs, paraplegia, dysphagia and has a G-tube, microcytic anemia history of headaches among others. ?With the patient was 1st admitted had a white count as high as 31,000 with toxic granulocytes and vacuolation in the differential. ?Infectious Disease had seen him he was initially treated with cefepime x5 days and vancomycin and subsequently to finish treatment with linezolid for a UTI, subsequently placed on azithromycin and Bactrim.? The suprapubic catheter had been replaced in the emergency room. ?Through the hospital course, the patient h ad developed a slight CAMRYN which was treated with fluids infrequent good water flushes. ?Due to intermittent tachycardia the patient had a CT angiogram on the date of admission which showed no PE.? Review of TTE from October of this year showed an ejection fraction of 50-55% without valvular or diastolic dysfunction. Patient had a lumbar puncture and fluid was sent for analysis on Nov 25, it did not reveal oligoclonal bands, workup for autoimmune encephalitis was done and the patient received IVIG for 5 days followed by home dose of prednisone and Rituxan per neurology's recommendations. ?While in the hospital the patient has been receiving Lovenox for DVT prophylaxis. ?Reportedly there was plans to discharge the patient but due to home care issues this was not done. ?While in the floor on in the morning the patient had become more tachycardic and hypoxic. ?The patient was placed on high-flow and subsequently on BiPAP given lack of improvement, patient was intubated by emergency physician Dr. Spear and the patient was transferred to the ICU. The patient is currently on a ventilator with the following settings AC, 400, 18, 5, 100% ROS:? Unable to obtain PHYSICAL EXAM: VS: ?111/59, 140, 18, 92% on room air. General:? Sedated and intubated Skin:? Right heel ulcer chronically appearing. HEENT:? Head is normocephalic, atraumatic, pupils equal 3 mm bilaterally.? Reactive to light. ?Extraocular movements appear intact.? Buccal mucosa is moist, Neck is supple without lymphadenopathy. Cardiac:? Tachycardic 130 beats per minute.? No murmurs, rubs, gallops. Pulmonary:? Absent lung sounds of the left lung, otherwise no wheezes, rales or rhonchi. Abdomen:? Flat, positive bowel sounds.? G-tube in place.? Suprapubic catheter in place. Musculoskeletal:? Patient moving his left hand.? Post sedation passive range of motion of the upper and lower extremities at the major joints do show cogwheeling, no crepitus, no leg edema. Neurologic:? As above, unable to further assess. Vascular:? 2+ pulses upper and lower extremities distally. ?Less than 2nd capillary refill of the finger and toes bilaterally. ASSESSMENT : 1. Acute hypoxic respiratory failure 2. Left lung whiteout likely mucus plugging 3. Left lung pneumonia with suspected aspiration 4. Reactive versus infective leukocytosis 5. Chronic microcytic anemia 6. Reactive tachycardia, rule out PE, illness related, electrolyte abnormality. 7. Hyperkalemia PLAN OF CARE: He was intubated on the floor, he was transferred to the ICU, vital signs per protocol, we will monitor I's and O's. ?We will administer nebs to try to open up his lungs, he will require frequent suctioning and perhaps a bronchoscopy for I suspect there is a mucus plug of the left lung.? I will broaden his antibiotics to Zosyn and vancomycin for his being in the hospital for almost 2 weeks.? Full set of laboratories, ABG, chest x-ray order a bedside and reviewed shows complete opacification of the left lung.? Tip of the endotracheal tube appears to be 3 cm above the cele.? No pneumothorax.? No free air. ?Even though the patient has been on DVT prophylaxis, I can not rule out the possibility of underlying PE but less likely BNP and troponin normal, no heart strain on bedside echo. IVC 2.2 cm with 50% collapse on inspiration, estimated EF 50% no Tri or mitral Regurg noted. He is not hypotensive however appears volume depleted, lactic acid is normal, we will give gentle IV fluids and albumin. Replace electrolytes. ?We will try to control heart rate with Cardizem. ?The patient is still awake with propofol, will add fentanyl. I will place a central line given that the patient is on multiple medications and will likely be started on pressors and has poor access. GI PROPHYLAXIS:? Start IV ppi DVT PROPHYLAXIS:? Lovenox subQ Critical care time used for critical evaluation of this patient, diagnosis, treatment and coordination of care, review her records and documentation TOTAL CRITICAL CARE TIME 90 ?MIN . discussion and coordination with consultants, completely separate from any procedures performed.Patient's care was discussed in detail with Dr. Gallardo who is aware of all the above as well as the plan of care for this patient <ADELINA Cruz - Last Filed: 12/15/24 06:29> HPI/Hospital course: ?Patient was admitted to the hospital on 12/02/2024 due to acute sepsis in the setting of UTI and pneumonia of the bibasilar lungs who has underlying history of MS/neuromyelitis optica and other demyelinating conditions, neurogenic bladder with suprapubic catheter, recurrent UTIs, paraplegia, dysphagia and has a G-tube, microcytic anemia history of headaches among others. ?With the patient was 1st admitted had a white count as high as 31,000 with toxic granulocytes and vacuolation in the differential. ?Infectious Disease had seen him he was initially treated with cefepime x5 days and vancomycin and subsequently to finish treatment with linezolid for a UTI, subsequently placed on azithromycin and Bactrim.? The suprapubic catheter had been replaced in the emergency room. ?Through the hospital course, the patient had developed a slight CAMRYN which was treated with fluids infrequent good water flushes. ?Due to intermittent tachycardia the patient had a CT angiogram on the date of admission which showed no PE.? Review of TTE from October of this year showed an ejection fraction of 50-55% without valvular or diastolic dysfunction. Patient had a lumbar puncture and fluid was sent for analysis on Nov 25, it did not reveal oligoclonal bands, workup for autoimmune encephalitis was done and the patient received IVIG for 5 days followed by home dose of prednisone and Rituxan per neurology's recommendations. ?While in the hospital the patient has been receiving Lovenox for DVT prophylaxis. ?Reportedly there was plans to discharge the patient but due to home care issues this was not done. ?While in the floor on in the morning the patient had become more tachycardic and hypoxic. ?The patient was placed on high-flow and subsequently on BiPAP given lack of improvement, patient was intubated by emergency physician Dr. Spear and the patient was transferred to the ICU. The patient is currently on a ventilator with the following settings AC, 400, 18, 5, 100% ROS:? Unable to obtain PHYSICAL EXAM: VS: ?111/59, 140, 18, 92% on room air. General:? Sedated and intubated Skin:? Right heel ulcer chronically appearing. HEENT:? Head is normocephalic, atraumatic, pupils equal 3 mm bilaterally.? Reactive to light. ?Extraocular movements appear intact.? Buccal mucosa is moist, Neck is supple without lymphadenopathy. Cardiac:? Tachycardic 130 beats per minute.? No murmurs, rubs, gallops. Pulmonary:? Absent lung sounds of the left lung, otherwise no wheezes, rales or rhonchi. Abdomen:? Flat, positive bowel sounds.? G-tube in place.? Suprapubic catheter in place. Musculoskeletal:? Patient moving his left hand.? Post sedation passive range of motion of the upper and lower extremities at the major joints do show cogwheeling, no crepitus, no leg edema. Neurologic:? As above, unable to further assess. Vascular:? 2+ pulses upper and lower extremities distally. ?Less than 2nd capillary refill of the finger and toes bilaterally. ASSESSMENT : 1. Acute hypoxic respiratory failure 2. Left lung whiteout likely mucus plugging 3. Left lung pneumonia with suspected aspiration 4. Reactive versus infective leukocytosis 5. Chronic microcytic anemia 6. Reactive tachycardia, rule out PE, illness related, electrolyte abnormality. 7. Hyperkalemia PLAN OF CARE: Neuro: Acute encephalopathy possibly due to metabolic encephalopathy On propofol for sedation, as needed fentanyl for analgesia Close neurological status monitoring in the ICU every hour He has history of multiple sclerosis/neuromyelitis optica because of which he has paraplegia wheel chair bound, a chronic indwelling catheter and a PEG tube. He received IVIG, followed by oral steroids and Rituxan in November Cardiac: Shock: Possibly secondary to positive pressure ventilation On Levophed support currently at 0.1, titrate Levophed to keep map above 65 mm Hg Respiratory: Acute hypoxemic respiratory failure due to mucus plugging and collapse of left lower lobe secondary to aspiration pneumonia Currently on ventilator support On PRVC mode FiO2 100%, PEEP 5, TV 400, RR 20, will wean FiO2 as tolerated. PF ratio 45 this morning suggesting severe ARDS. Peak pressures and plateau pressures are under the curve Ventilator management bundle with head end elevation, aspiration precaution, chlorhexidine mouthwash, daily awakening trials, daily spontaneous breathing trials We will do an emergent bronchoscopy to clear the airway and relieve the obstruction GI: We will start on tube feeds Renal: Baseline creatinine normal, creatinine today is 0.59 We will closely monitor I's and O's Avoid nephrotoxic medications Heme: Chronic anemia, closely monitor H&H, transfuse for hemoglobin less than 7 grams/deciliter Today's lab shows an increase in hemoglobin possibly due to volume constriction Endocrine: Blood sugars under control Sliding scale insulin as needed Infectious disease: We will send repeat pancultures, resistant enterobacter in the urine Antibiotics escalated to vanc and Zosyn given concerns for hospital-acquired infections He was earlier treated with cefepime and linezolid for urinary tract infection in the setting of chronic indwelling suprapubic catheter Musculoskeletal: Decubitus ulcer prevention protocol Lines: Right IJ TLC Prophylaxis: Lovenox, pantoprazole Critical care time used for critical evaluation of this patient, diagnosis, treatment and coordination of care, review her records and documentation TOTAL CRITICAL CARE TIME 90 ?MIN on post intubation ventilator management, sedation management, vasopressor management, close hemodynamic monitoring. discussion and coordination with consultants, completely separate from any procedures performed.Patient's care was discussed in detail with Dr. Gallardo who is aware of all the above as well as the plan of care for this patient <Pratik Gallardo MD - Last Filed: 12/15/24 10:25>
[2024-12-15] MEDS: Piperacillin Sodium/Tazobactam 3.375 GM in 0.9 % Sodium Chloride 50 ML IV ×4 (04:47→21:40)
[2024-12-15] MEDS: Acetaminophen Oral Liquid 650 MG/20.3 ML SOLUTION 975 MG PO (04:48)
[2024-12-15 04:54] LABS: Lactic Acid 1.8 mmol/L (0.5-2.0)
[2024-12-15] MEDS: Midazolam HCl 2 MG/2 ML VIAL 4 MG IVPUSH (04:54)
[2024-12-15 04:56] LABS: SLIDE REVIEW VERIFIED
[2024-12-15] MEDS: fentaNYL citrate/NS 1,000 MCG/100 ML PLAST..BAG 2.5 MCG IVCONT (05:00)
[2024-12-15 05:02] LABS: Alanine Aminotransferase 78 U/L (0-40); Albumin Level 3.2 g/dL (3.5-5.0); Alkaline Phosphatase 73 U/L (39-117); Anion Gap 19 (12-20); Aspartate Amino Transferase 64 U/L (5-37); Bilirubin Total 0.4 mg/dL (0.0-1.0); Blood Urea Nitrogen 10 mg/dL (9-16); Calcium 8.9 mg/dL (8.4-10.2); Carbon Dioxide 24 mmol/L (22-29); Chloride 100 mmol/L (96-108); Creatinine Clr Calc Pharmacy 166.4; Estimated Glomerular Filt Rate > 60; Glucose Random 96 mg/dL (60-115); Potassium 5.3 mmol/L (3.3-5.1); Sodium 138 mmol/L (135-145); Troponin-I High Sensitivity < 2.7 ng/L (<3.5-35.0)
[2024-12-15 05:04] LABS: ABG Refer to POC result
[2024-12-15 05:11] LABS: B Type Natriuretic Peptide < 10 pg/mL (<100)
[2024-12-15 05:20] LABS: Procalcitonin 0.07 ng/mL
[2024-12-15] MEDS: Albuterol/Iprat 2.5/0.5MG 3 ML AMPUL.NEB INHALE (05:21)
[2024-12-15] MEDS: dilTIAZem HCL 50 MG/10 ML VIAL 20 MG IVPUSH (05:25)
[2024-12-15] MEDS: propofoL 1,000 MG/100 ML VIAL 22.02 MG IVCONT (05:31)
[2024-12-15] MEDS: Hydrocortisone Sod Succ/PF 100 MG VIAL IVPUSH (05:38)
[2024-12-15] MEDS: Albuterol Sulfate (0.083%) 2.5 MG/3 ML VIAL.NEB 10 MG INHALE (05:47)
[2024-12-15] MEDS: Norepinephrine Bitartrate/D5W 8 MG/250 ML PLAST..BAG 6.88 MG IVCONT ×2 (05:51→22:49)
--- NOTE | 2024-12-15 06:23 | P.PCNCC_ITS ---
Procedures Date of Service Date of Service: 12/15/24 <ADELINA Cruz - Last Filed: 12/15/24 07:04> 12/15/24 <Pratik Gallardo MD - Last Filed: 12/15/24 10:38> Central Line Placement Right IJ: Central Line Comments: 0650 am Radiology called and also question the location of the cath? in the Carotid. US does not reveal a wire going thru it, but removed by me, pressure held for several minutes. RN at bedside aware and saw that there is no active bleeding or hematoma. Still gauze and sand bags were left in place. A dressing to be applied on the next [address] talk to Dr Gallardo for placement on the left side once ensure no bleeding is noted from the right removal. <ADELINA Cruz - Last Filed: 12/15/24 07:04> Consent for Procedure: Emergent-no informed consent obtained <ADELINA Cruz - Last Filed: 12/15/24 07:04> Time out performed: Yes <ADELINA Cruz - Last Filed: 12/15/24 07:04> Sterile Technique Used: Yes <ADELINA Cruz - Last Filed: 12/15/24 07:04> Patient placed on monitor/pulse ox: Yes <ADELINA Cruz - Last Filed: 12/15/24 07:04> prep: mask, gown, gloves and other (cap) <ADELINA Cruz - Last Filed: 12/15/24 07:04> Central line prep: Chlorhexidine scrub <ADELINA Cruz - Last Filed: 12/15/24 07:04> Ultrasound used for placement: Yes <ADELINA Cruz - Last Filed: 12/15/24 07:04> Central line lumen inserted: triple <ADELINA Cruz - Last Filed: 12/15/24 07:04> Post procedure: sutured in place, good blood return, all ports aspirated, flushed, capped and sterile dressing applied <ADELINA Cruz - Last Filed: 12/15/24 07:04> Post procedure x-ray: tip of catheter in good position and no pneumothorax seen <ADELINA Cruz - Last Filed: 12/15/24 07:04> Patient tolerated procedure: well <ADELINA Cruz - Last Filed: 12/15/24 07:04> Complications: none and other (questionable location will await rad reading ) <ADELINA Khalil - Last Filed: 12/15/24 07:04>
[2024-12-15] MEDS: Albumin Human 25 % 100 ML 133.33 ML IV (06:40)
[2024-12-15 06:48] LABS: Magnesium 2.1 mg/dL (1.6-2.6); Phosphorus 4.8 mg/dL (2.7-4.5)
[2024-12-15 07:00] LABS: Thyroid Stimulating Hormone 2.17 uIU/mL (0.32-4.0)
--- NOTE | 2024-12-15 07:07 | PHA.PROG ---
Admission Date/Time: December 02, 2024 20:00 Indication: RESPIRATORY Weight in k.4 kg Adjusted body weight in K.78 [place] body weight in K.7 Obesity Dosing Indication % IBW: 23.9 Serum Creatinine - Last 168 Hours 12/08/24 12/13/24 12/15/24 08:57 07:08 04:20 Creatinine 0.51 0.54 0.59 Estimated CrCl and GFR - Last 168 Hours 12/08/24 12/13/24 12/15/24 08:57 07:08 04:20 Estim Creat Clear Calc 192.5 181.8 166.4 Estimated GFR > 60 > 60 > 60 Vancomycin Loading Dose: 1750 MG Current Vancomycin Dosing Regimen: 1500 Q12 Vancomycin Monitoring using AUC goal of 400 - 600 range with trough as surrogate marker: Date and Time for next Vancomycin Level to be drawn: 12/16 @1600 Vancomycin Trough 11.9 mcg/mL (10.0-20.0) 12/06/24 12:03 Pharmacist Comments on Vancomycin Plan: Vancomycin dosing will take advantage of [employer] as a clinical decision support tool that uses Bayesian modeling to calculate individual patient's pharmacokinetic parameters and forecast the patient's drug concentration time course with the target goal AUC 24 range of 400 - 600 mg/L/hr.
--- NOTE | 2024-12-15 08:39 | PM.SEPBOLA4 ---
Sepsis Bolus Exclusion Sepsis Bolus Exclusion CHF/Renal Failure Date of Occurrence: 12/15/24 Time of Occurrence:: 04:30 This patient met severe sepsis criteria due to the following condition(s):: Hypotension In my clinical judgement the administration of 30 ml/kg of crystalloid would be detrimental to this patient due to the patient's following conditions:: Concern for fluid overload Other (must be specific):: only 1000cc of fluid was given due to concerns for volume overload Replace the 30 mls/kg with (Zero amount not acceptable and all fluids for severe sepsis must be given at GREATER than 125 mls/hr) *Note: One of the rdz must be documented Crystalloids amount given in mls: (rate must be at least 150cc/hr): 1,000 At a rate of (must be > 125 cchr):: 999
[2024-12-15] MEDS: Cholecalciferol (Vitamin D3) 25 MCG TABLET 50 MCG G-TUBE (09:44)
[2024-12-15] MEDS: Cyclobenzaprine HCl 10 MG TABLET G-TUBE ×3 (09:46→21:33)
[2024-12-15] MEDS: predniSONE 20 MG TABLET PO (09:46)
[2024-12-15] MEDS: Sertraline HCL 50 MG TABLET G-TUBE (09:48)
--- NOTE | 2024-12-15 10:21 | MHC.CLN ---
F/U PT IS INTUBATED AND SEDATED DISCUSSED AT [facility] WITH PT WAS TOLERATING TF AT MAX GOAL RATE JEVITY 1.0 AT 85 ML/ HR WITH 240ML FREE WATER FLUSHES Q 8 HOURS PROVIDED 2162 KCALS (29 KCALS/KG), 90 G PROTEIN (1.2 G/KG), 2433 ML TOTAL FREE WATER FROM FORMULA AND FLUSH (33 ML/KG) RECOMMEND SWITCHING TF FORMULA TO PROMOTE AT MAX GOAL RATE 70ML/HR WITH 240ML FREE WATER FLUSHES Q 8 HRS TO PROVIDE 1680KCALS (2261KCALS WITH SEDATION; 31KCALS/KG), 105G PROTEIN (1.5G/KG), 2129ML TOTAL WATER FROM FORMULA AND FLUSHES (29ML/KG) TF WILL PROMOTE WOUND HEALING CONTINUE TO MONITOR TOLERANCE AND LYTES
--- NOTE | 2024-12-15 10:30 | PC.RT ---
Rt assist MD with bedside bronchoscopy. Pt on 100% fio2 throughout without any desaturation noted.L Lung was sxn'd for copious amounts pale white sec. A jaime,ple was taken for lab work. Nurse present.
[2024-12-15] MEDS: propofoL 1,000 MG/100 ML VIAL 17.62 MG IVCONT (10:33)
--- NOTE | 2024-12-15 10:38 | W.PM.CCHP ---
Procedures Date of Service Date of Service: 12/15/24 Bronchoscopy Consent for Procedure: Emergent-no informed consent obtained Indication: atelectasis and pulmonary toilet Route: endotracheal tube Monitor: EKG and pulse oximetry Findings: Bronchoscope was passed through ET tube, FiO2 on the ventilator was 100%, saturations were closely monitored. Right-sided bronchi, segmental and subsegmental all looked clean with no lesions or secretions. Thick white secretions were noted in the left lower lobe more than upper lobe bronchi, which was lavaged and cleared until subsegmental levels. Sample sent for culture. Complications: none
--- NOTE | 2024-12-15 10:41 | MHC.CM.PN ---
CM Met with Patient's Sister and Parents. Sister expressed that she was upset that Patient named Shadi, who is not a family member, as his HCP Agent.Patient has been deemed to not have capacity; CM explained to Sister that Emergency Guardianship could make it possible to change the medical decision make; Sister indicated that she will pursue Emergency Guardianship. CM will follow.
[2024-12-15] MEDS: Sulfamethox/Trimeth 800/160 TABLET 1 TAB PO ×2 (11:17→21:34)
[2024-12-15] MEDS: Albumin Human 25 % 100 ML IV (11:19)
--- NOTE | 2024-12-15 12:01 | P.CDIM_ITS ---
PROVIDER RESPONSE TEXT: To clarify, the appropriate diagnosis supported by the clinical indicators: Septic shock QUERY TEXT: PHYSICIAN'S DOCUMENTATION REQUEST Date of Query: 12/15/2024 11:47 AM EST Patient Name: Justus Burr Admit Date: 12/03/2024 Dear Pratik Gallardo MD, A review of the medical record indicates additional documentation may be needed. Please review below and update the documentation accordingly. Clinical Indicators: Per Critical Care Progress Note 12/15/24: Shock: possibly secondary to positive pressure ventilation On Levophed Based on the above, could you clarify the appropriate diagnosis, if significant, that supports the ab ove abnormalities and additional evaluation, monitoring, and/or treatment rendered: Cardiogenic shock Septic shock Hypovolemic shock Other (explain) Clinically unable to determine (explain) Thank you, Liudmila Le RN Use of terms such as suspected, likely, concern for, or probable (associated with a specific diagnosi s that is being evaluated, monitored, or treated as if it exists) are acceptable and can be coded in the inpatient se tting, when documented at the time of discharge. Please use your independent medical judgment in providing your response. THIS QUERY IS PART OF THE PERMANENT MEDICAL RECORD
--- NOTE | 2024-12-15 13:05 | MHC.SLORD ---
Speech Language Pathology Order Status: Pt intubated, ST to follow as indicated.
[2024-12-15] MEDS: fentaNYL citrate/NS 1,000 MCG/100 ML PLAST..BAG 10 MCG IVCONT ×2 (13:33→22:51)
[2024-12-15] MEDS: Lactated Ringers 1,000 ML 150 ML IVCONT ×2 (13:42→19:58)
--- NOTE | 2024-12-15 14:19 | MHC.CM.PN ---
Pt intubated in ICU: goals for the day include reduction of FiO2 and bronchoscopy. Pt is from home with [employer] care and family support as well as VNA. Pt has declined STR - will reassess once pt is medically stable.
--- NOTE | 2024-12-15 14:25 | HO.WOUND ---
Wound Consult:Follow up 39yr old?Male admitted to [facility] on 12/02/24 - See progress notes and H&P for detailed history.? Wound consult follow up for Buttock wound.? ?Patient currently in ICU level of care - intubated ET Tube Hendricks is a linda, patient has been shaved. SpO2 Probe is on forehead, removed and skin assessed no redness noted no injury noted at this time. Site rotated - Skin prep applied and adhesive used to secure to forehead instead of band. Band should only be used if needed. ISO Tour ANABELLE bed in use along with wedges. Preventative foams in place to heels - no injury noted. Sacrum 12/15/24 12/06/24 Sacrum Etiology: ?Stage 2 Pressure Injury ?Present on Admission Wound Bed: central open red pink moist wound bed - partial thickness tissue loss periwound with MASD Noted Edges: ? attached Carmen wound:MASD (Moisture Associated Skin Damage) No Induration, Fluctuance or Warmth noted Goals of Treatment: ? Off Load Pressure and Triad cream to allow for continued healing and protect from friction and moisture No new topical recommendations needed at this time Recommendations: 1. Turn and Reposition every 2 hours and as needed for patient comfort.? Use pillows or wedges to support off loading positions. 2. Off Load all bony prominences with use of pillows and heel boots if needed.? Apply Preventative foams where needed. ? 3. Monitor for incontinence and moisture control, use barrier creams when needed for prevention and treatment. 4. Provide adequate and supplemental nutrition.? 5. Continue low air loss mattress. 6. When applicable maintain blood glucose levels per Providers order. 7. Buttock - Off Load Pressure with Q2 hr turns and use of pillows - Cleanse with PH balance spray or wipes, pat dry. ?Apply thin layer of Triad to wound bed - only pat and dab no scrub and rub when soiling occurs. Reapply thin layer PRN after each episode of incontinence. May cover with foam dressing, change every 3 days and PRN. Re-consult wound care Nurse for wound deterioration or wound changes.
[2024-12-15] MEDS: Chlorhexidine Gluc Oral Rinse 15 ML MOUTHWASH BUCCAL ×2 (15:22→21:33)
[2024-12-15] MEDS: vancomycin HCL 1,500 MG in 0.9 % Sodium Chloride 500 ML 333.33 MG IV (16:47)
[2024-12-15] MEDS: propofoL 1,000 MG/100 ML VIAL 8.81 MG IVCONT (17:00)
--- NOTE | 2024-12-15 19:34 | HE.NUR.EV ---
Today: Patient facial hair shaved pt and exchanged ETT holister with Respiratory. Assisted Provider and Respiratory with bronc&wash at bedside. Repeat chest x-ray performed at bedside. Initiated Tube Feed... followed new dietary order per MD and Hybrid Technologist... collected Sputum and urine samples for culturing see orders. for full assessment see shift assessment, see mar for medications and titrations
[2024-12-15] MEDS: Enoxaparin Sodium 40 MG/0.4 ML SYRINGE SUBCUT (20:55)
[2024-12-15] MEDS: Sennosides 8.6 MG TABLET 17.2 MG G-TUBE (21:34)
[2024-12-15] MEDS: propofoL 1,000 MG/100 ML VIAL 13.21 MG IVCONT (22:54)
--- NOTE | 2024-12-15 23:41 | PC.NURSE ---
LATE ENTRY: CARE ASSUMED 12/15/24 4AM...PATIENT PREVIOUSLY INTUBATED ON TELEMETRY UNIT....INTUBATED 7.5 ETT 26CM...VCV VENT SUPPORT...MOVING ARMS BUT NOT TO COMMAND...PROPOFOL AND FENTANYL DRIPS PER PROVIDER/MAR FOR VENT SYNCHRONY...SINUS TACH HR UP TO 150...CARDIZEM 10MG AND 20MG IV BOLUSES W/O EFFECT ON HR...LEVOPHED DRIP INITIATED VIA PERIPHERAL IV ACCESS FOR MARGINAL BP...LR 100 CC/HR STARTED AND INCREASED TO 150 CC/HR PER PROVIDER....RECURRANT SAO2 DESATURATION TO LOW TO MID 80'S...100% FIO2 AND PEEP 5 TO 10CM..SAO2 >90% WITH PATIENT SUPINE...CXR SHOWED LEFT LUNG TOTAL WHITE-OUT...VANCOMYCIN AND ZOSYN PER MAR...TLC INSERTED RIGHT IJ SITE BY PROVIDER...TLC REMOVED AFTER CXR SHOWED UNCLEAR PLACEMENT..REMOVED W/O INCIDENT...SUPRAPUBIC WITH MARGINAL/SCANT OUTPUT OF HAZY YELLOW URINE..OUTPUT IMPROVING AFTER IV FLUIDS/ANTIBIOTICS/ALBUMEN
[2024-12-16] VITALS (41 sets, daily range): BP systolic 109–146; BP diastolic 61–88; PULSE 73–128; RESP 15–26; TEMP 35–37.9; O2SAT 92–100
[2024-12-16] MEDS: Lactated Ringers 1,000 ML 150 ML IVCONT ×2 (01:25→08:22)
[2024-12-16] MEDS: Piperacillin Sodium/Tazobactam 3.375 GM in 0.9 % Sodium Chloride 50 ML IV ×4 (03:46→21:48)
[2024-12-16 04:33] LABS: VBG Base Excess 6.2 mmol/L; VBG HCO3 27 mmol/L (22-26); VBG pCO2 27 mmHg; VBG pO2 68 mmHg
[2024-12-16 04:39] LABS: Basophils Percent Auto 0.2 % (0-2); Eosinophils Absolute Auto 0.1 X10*3/uL (0.0-0.4); Eosinophils Percent Auto 0.6 % (0-4); Imm Gran Abs Auto 0.11 X10*3/uL (0.00-0.03); Imm Gran Pct Auto 0.7 % (0.0-0.4); Lymphocytes Absolute Auto 1.3 X10*3/uL (1.2-4.9); Lymphocytes Percent Auto 8.3 % (20-40); MANUAL DIFF FLAG SCAN; Mean Corpuscular HGB Conc 32.5 g/dl (31.0-36.0); Mean Corpuscular Hemoglobin 24.4 pg (27.0-33.0); Mean Corpuscular Volume 74.9 fL (80.0-98.0); Monocytes Absolute Auto 1.6 X10*3/uL (0.1-1.2); Monocytes Percent Auto 9.8 % (2-11); Neutrophils Percent Auto 80.4 % (45-73); Platelet Count 340 X10*3/uL (160-400); Red Blood Count 2.75 X10*6/uL (4.60-5.80); Red Cell Distribution Width 18.7 % (11.0-16.0); SCAN SMEAR FLAG 1; White Blood Count 16.2 X10*3/uL (4.8-10.8)
[2024-12-16 04:43] LABS: Hematocrit 20.6 % (42.0-52.0); Hemoglobin 6.7 g/dl (14.0-18.0)
[2024-12-16 04:44] LABS: Venous Blood Gas Refer to POC result
[2024-12-16 04:45] LABS: INTERNATIONAL NORM RATIO 1.3 (0.9-1.1); Prothrombin Time 14.6 SEC (10.9-12.4)
[2024-12-16 04:57] LABS: SLIDE REVIEW VERIFIED
[2024-12-16 05:04] LABS: Alanine Aminotransferase 42 U/L (0-40); Albumin Level 2.9 g/dL (3.5-5.0); Alkaline Phosphatase 56 U/L (39-117); Anion Gap 11 (12-20); Aspartate Amino Transferase 31 U/L (5-37); Bilirubin Total 0.3 mg/dL (0.0-1.0); Blood Urea Nitrogen 8 mg/dL (9-16); Calcium 8.6 mg/dL (8.4-10.2); Carbon Dioxide 25 mmol/L (22-29); Chloride 107 mmol/L (96-108); Creatinine Clr Calc Pharmacy 192.5; Estimated Glomerular Filt Rate > 60; Glucose Random 100 mg/dL (60-115); Magnesium 1.9 mg/dL (1.6-2.6); Phosphorus 2.8 mg/dL (2.7-4.5); Potassium 3.2 mmol/L (3.3-5.1); Sodium 140 mmol/L (135-145); Total Protein 6.4 g/dL (6.5-8.0)
[2024-12-16] MEDS: vancomycin HCL 1,500 MG in 0.9 % Sodium Chloride 500 ML 333.33 MG IV ×2 (05:45→17:42)
[2024-12-16] MEDS: propofoL 1,000 MG/100 ML VIAL 13.21 MG IVCONT (05:49)
[2024-12-16 05:56] LABS: Mean Corpuscular HGB Conc 32.8 g/dl (31.0-36.0); Mean Corpuscular Hemoglobin 24.5 pg (27.0-33.0); Mean Corpuscular Volume 74.7 fL (80.0-98.0); Mean Platelet Volume 11.5 fL (9.4-12.4); Platelet Count 336 X10*3/uL (160-400); Red Blood Count 2.73 X10*6/uL (4.60-5.80); White Blood Count 17.3 X10*3/uL (4.8-10.8)
[2024-12-16 05:58] LABS: Hematocrit 20.4 % (42.0-52.0); Hemoglobin 6.7 g/dl (14.0-18.0)
[2024-12-16] MEDS: predniSONE 20 MG TABLET PO (07:46)
[2024-12-16] MEDS: Cyclobenzaprine HCl 10 MG TABLET G-TUBE ×3 (07:46→21:19)
[2024-12-16] MEDS: Sertraline HCL 50 MG TABLET G-TUBE (07:46)
[2024-12-16] MEDS: Cholecalciferol (Vitamin D3) 25 MCG TABLET 50 MCG G-TUBE (07:46)
[2024-12-16] MEDS: Chlorhexidine Gluc Oral Rinse 15 ML MOUTHWASH BUCCAL ×3 (07:47→21:20)
--- NOTE | 2024-12-16 08:30 | P.PNCC_ITS ---
Subjective Subjective Date of Service: 12/16/24 Critical Care Time (minutes): 35 Comment: Improved ventilator settings this morning Off vasopressor support Drop in hemoglobin by 3.5 g per dL overnight requiring PRBC transfusion this morning Physical Exam 2 Vital Signs: Vital Signs: Last Vital Signs Temp 99.3 F 12/16/24 08:00 Pulse 75 12/16/24 08:00 Resp 18 12/16/24 08:00 BP 128/76 12/16/24 08:00 Pulse Ox 98 12/16/24 08:00 O2 Del Method Mechanical Ventil ation 12/16/24 08:00 O2 Flow Rate 7 12/15/24 00:00 FiO2 30 12/16/24 08:05 Oxygen Flow Rate 6 12/02/24 12:11 BMI result Body Mass Index 23.9 General: In somewhat acute distress, ill appearing and tired appearing Nutritional Appearance: well nourished and overweight Eyes: appearance normal, both eyes and all related structures; Alignment and Position: alignment normal and position normal Neck: No lymphadenopathy, no thyromegaly Resp: bilateral air entry equal, occasional added sounds present Cardio: Regular rate, regular rhythm; Heart sounds: S1 normal heart sound present and S2 normal heart sound present GI: soft, nontender, no guarding, no hepatosplenomegaly : bladder normal to inspection, bladder normal to palpation, no renal angle tenderness Skin: no rashes or lesions noted and elasticity normal Neuro: Bilateral lung lower extremity spastic, sedated Objective Data Labs 12/16/24 05:40 12/16/24 04:12 Labs: Laboratory Results - last 24 hr 12/16/24 12/16/24 12/16/24 04:12 04:28 05:40 WBC 16.2 H 17.3 H RBC 2.75 L D 2.73 L Hgb 6.7 L* D 6.7 L* Hct 20.6 L* D 20.4 L* MCV 74.9 L 74.7 L MCH 24.4 L 24.5 L MCHC 32.5 32.8 RDW 18.7 H 19.0 H Plt Count 340 336 MPV 11.0 11.5 Immature Gran % (Auto) 0.7 H Neut % (Auto) 80.4 H Lymph % (Auto) 8.3 L [place] % (Auto) 9.8 Eos % (Auto) 0.6 Baso % (Auto) 0.2 Lymph # (Auto) 1.3 [place] # (Auto) 1.6 H Eos # (Auto) 0.1 Baso # (Auto) 0.0 Abs Immat Gran (auto) 0.11 H Absolute Neuts (auto) 13.0 H Absolute Nucleated RBC 0.000 0.000 Nucleated RBC % (auto) 0.0 0.0 Smear Tech's Comments VERIFIED PT 14.6 H D INR 1.3 H VBG pH 7.60 H* VBG pCO2 27 VBG pO2 68 VBG HCO3 27 H VBG O2 Saturation 97.0 VBG Base Excess 6.2 Sodium 140 Potassium 3.2 L D Chloride 107 Carbon Dioxide 25 Anion Gap 11 L BUN 8 L Creatinine 0.51 Estim Creat Clear Calc 192.5 Estimated GFR > 60 Random Glucose 100 Calcium 8.6 Phosphorus 2.8 Magnesium 1.9 Total Bilirubin 0.3 AST 31 ALT 42 H Alkaline Phosphatase 56 Total Protein 6.4 L Albumin 2.9 L Blood Type A Positive Antibody Screen NEGATIVE Crossmatch See Detail Microbiology Microbiology Results: Microbiology 12/15/24 04:37 Blood - Venous Blood Culture - Preliminary No growth after 24 hours. 12/15/24 04:37 Blood - Venous Blood Culture - Preliminary No growth after 24 hours. 12/15/24 10:30 Sputum - Suctioned Gram Stain - Final 12/02/24 12:46 Blood - Venous Blood Culture - Final No growth after 5 days. 12/02/24 12:46 Blood - Venous Blood Culture - Final No growth after 5 days. 12/02/24 17:23 Urine Catheterized - Villatoro Catheter Urine Culture - Final Enterobacter cloacae complex Progress Note: A&P Assessment and plan (1) Aspiration pneumonia: Status: Acute (2) Pneumonia: Status: Acute (3) Demyelinating disease: Status: Acute (4) Hypokalemia: Status: Acute Plan Neuro: Acute encephalopathy possibly due to metabolic encephalopathy On propofol for sedation, as needed fentanyl for analgesia, we will taper sedation to weaning from ventilator. 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 He received IVIG, followed by oral steroids and Rituxan in November Cardiac: Shock: Possibly secondary to positive pressure ventilation Currently off vasopressor support Respiratory: Acute hypoxemic respiratory failure due to mucus plugging and collapse of left lower lobe secondary to aspiration pneumonia Currently on ventilator support On PRVC mode FiO2 down to 35 %, PEEP 5, TV 400, RR 20, we will place the patient on pressor support and if does well we will get the weaning parameters. Peak pressures and plateau pressures are under the curve Ventilator management bundle with head end elevation, aspiration precaution, chlorhexidine mouthwash, daily awakening trials, daily spontaneous breathing trials Underwent bronchoscopic lavage of the left lung yesterday, right lung bronchial mucosa looked normal with no obstruction or erythema or swelling. GI: on tube feeds Renal: Baseline creatinine normal, creatinine today is 0.59 We will closely monitor I's and O's Avoid nephrotoxic medications Heme: Acute anemia: Drop in hemoglobin to 6.6 from 10.1 yesterday, partially dilutional. No obvious blood loss Receiving 1 PRBC transfusion this morning Endocrine: Blood sugars under control Sliding scale insulin as needed Infectious disease: Pending repeat pancultures, resistant enterobacter in the urine upon admission Antibiotics escalated to vanc and Zosyn given concerns for hospital-acquired infections, continue Bactrim for resistant Enterobacter UTI He was earlier treated with cefepime and linezolid for urinary tract infection in the setting of chronic indwelling suprapubic catheter Musculoskeletal: Decubitus ulcer prevention protocol Lines: Right IJ TLC Prophylaxis: Lovenox, pantoprazole Total critical care time spent is about 40 minutes on ventilator management, sedation management, changing ventilator settings, weaning trials, close hemodynamic monitoring at this time is excluding any procedural time Quality Stroke Does the patient have a stroke diagnosis?: No VTE Prior VTE?: No VTE Risk Level:: Medical - moderate - high VTE Device Contraindication: Treatment Not Indicated VTE Drug Contraindication: N/A - Med Ordered
[2024-12-16] MEDS: 0.9 % Sodium Chloride Flush 3 ML SYRINGE IVFLUSH ×2 (08:31→15:44)
[2024-12-16] MEDS: fentaNYL citrate/NS 1,000 MCG/100 ML PLAST..BAG 10 MCG IVCONT (08:31)
[2024-12-16] MEDS: Sulfamethox/Trimeth 800/160 TABLET 1 TAB PO ×2 (09:41→21:20)
--- NOTE | 2024-12-16 15:01 | MHC.CM.PN ---
This insurance underwriter completed paperwork from Ct Scan Tech Amberly Collins to file with courts in regards to patient's HCP, to contest sister's request for guardianship. Any medical certificate provide to [facility] staff by sister should not be completed. At this time patient's HCP is valid as it stands uploaded to [employer].
--- NOTE | 2024-12-16 15:27 | HO.THORCONS ---
History of Present Illness Consult details Consult date: 12/16/24 Narrative: Thoracic surgical consult by ICU team for tracheostomy. Patient was an unfortunate 39-year-old male with a multiple sclerosis and has had a prolonged intubation. He has been extubated but has having difficulty managing his secretions. Surgical consultation as noted above. Chart was reviewed and patient evaluated. Family members present during evaluation as well. 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 Microcytic anemia Multiple sclerosis Headache Family History Family History Other No family history of coronary artery disease Family history: reviewed and not pertinent Surgical History Surgical History H/O hernia repair Social History Social History Household Members: Family Household Members Other:: parents Housing: Apartment 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 have visiting nurse or other home services: Yes Unable to assess alcohol history related to: Unknown Alcohol intake: never Comment: propofol/fentanyl drips..bilateral wrist restraints for airway safety Patient Tobacco Use Status: Former Tobacco user Tobacco use type: Cigarette Cigarettes Per Day: 0.25 Substance Use Type: Marijuana Advance Directives Date on File: 12/01/24 service: No Current occupational status: disabled Meds Allergies Allergy/AdvReac Type Severity Reaction Status Date / Time doxycycline Allergy Rash Verified 12/02/24 12:13 Active Medications: Current Medications Acetaminophen (Acetaminophen 325 Mg Tablet) 650 mg G-TUBE Q6H PRN PRN Reason: Pain, Mild 1-3,fever,headache Last Admin: 12/14/24 20:43 Dose: 650 mg Chlorhexidine Gluconate (Chlorhexidine Gluc Oral Rinse 15 Ml Mouthwash) 15 ml BUCCAL TID REPLACED BY [facility] Last Admin: 12/16/24 07:47 Dose: 15 ml Cyclobenzaprine HCl (Cyclobenzaprine Hcl 10 Mg Tablet) 10 mg G-TUBE TID REPLACED BY [facility] Last Admin: 12/16/24 07:46 Dose: 10 mg Enoxaparin Sodium (Enoxaparin Sodium 40 Mg/0.4 Ml Syringe) 40 mg SUBCUT Q24H REPLACED BY [facility] Last Admin: 12/15/24 20:55 Dose: 40 mg Glycopyrrolate (Glycopyrrolate 0.2 Mg/Ml Vial) 0.1 mg IVPUSH Q4H PRN PRN Reason: secretions Last Admin: 12/12/24 15:47 Dose: 0.1 mg Lactated Ringer's (Lr) 1,000 mls @ 150 mls/hr IVCONT .Q6H40M REPLACED BY [facility] Last Admin: 12/16/24 13:43 Dose: Not Given Piperacillin Sod/Tazobactam (Sod 3.375 gm/ Sodium Chloride) 50 mls @ 100 mls/hr IV Q6H REPLACED BY [facility] Last Infusion: 12/16/24 10:19 Dose: Infused Fentanyl (Sublimaze/Ns) 1,000 mcg in 100 mls @ 0 mls/hr IVCONT .Q0M REPLACED BY [facility]; Protocol Last Titration: 12/16/24 14:09 Dose: Infused Norepinephrine Bitartrate (Levophed) 8 mg in 250 mls @ 0 mls/hr IVCONT .Q0M REPLACED BY [facility]; Protocol Last Titration: 12/16/24 11:47 Dose: 0 mcg/kg/min, 0 mls/hr Propofol (Diprivan) 1,000 mg in 100 mls @ 0 mls/hr IVCONT .Q0M REPLACED BY [facility]; Protocol Last Titration: 12/16/24 14:08 Dose: Infused Vancomycin HCl 1,500 mg/ (Sodium Chloride) 500 mls @ 333.333 mls/hr IV Q12H REPLACED BY [facility] Last Infusion: 12/16/24 07:23 Dose: Infused Magnesium Hydroxide (Milk Of Magnesia 30 Ml Oral.Susp) 30 ml G-TUBE DAILY PRN PRN Reason: Constipation Naloxone HCl (Naloxone Hcl 0.4 Mg/Ml Vial) 0.2 mg IVPUSH Q2M PRN PRN Reason: Excessive sedation or RR < 8 Ondansetron HCl (Ondansetron Hcl 4 Mg/2 Ml Vial) 4 mg IVPUSH Q8H PRN PRN Reason: Nausea and Vomiting Pharmacy Consult (Consult Rx Vancomycin Dosing) 1 each MISCELLANE DAILY PRN PRN Reason: Consult order Prednisone (Prednisone 20 Mg Tablet) 20 mg PO DAILY REPLACED BY [facility] Last Admin: 12/16/24 07:46 Dose: 20 mg Senna (Sennosides 8.6 Mg Tablet) 17.2 mg G-TUBE BEDTIME REPLACED BY [facility] Last Admin: 12/15/24 21:34 Dose: 17.2 mg Sertraline HCl (Sertraline Hcl 50 Mg Tablet) 50 mg G-TUBE DAILY REPLACED BY [facility] Last Admin: 12/16/24 07:46 Dose: 50 mg Sodium Chloride (0.9 % Sodium Chloride Flush 3 Ml Syringe) 3 ml IVFLUSH QSHIFT REPLACED BY [facility] Last Admin: 12/16/24 08:31 Dose: 3 ml Trimethoprim/Sulfamethoxazole (Sulfamethox/Trimeth 800/160 Tablet) 1 tab PO Q12H REPLACED BY [facility] Last Admin: 12/16/24 09:41 Dose: 1 tab Vitamin D (Cholecalciferol (Vitamin D3) 25 Mcg Tablet) 50 mcg G-TUBE DAILY REPLACED BY [facility] Last Admin: 12/16/24 07:46 Dose: 50 mcg Home Medications ?Medication ?Instructions ?Recorded ?Confirmed ?Last Taken ?Type clindamycin phosphate 1 % lotion 1 appl topical BID 09/10/24 12/02/24 10/10/24 History clotrimazole-betamethasone 1 1 appl topical BID 10/11/24 12/02/24 10/10/24 History %-0.05 % topical cream prednisone 20 mg tablet 20 mg PO DAILY 10/21/24 12/02/24 Unknown History Physical Exam Vital Signs: Vital Signs: Last Vital Signs Temp 98.3 F 12/16/24 14:02 Pulse 124 H 12/16/24 14:19 Resp 20 12/16/24 14:19 BP 140/85 H 12/16/24 14:19 Pulse Ox 92 12/16/24 14:19 O2 Del Method Nasal Cannula 12/16/24 14:19 O2 Flow Rate 4 12/16/24 14:19 FiO2 30 12/16/24 13:00 Oxygen Flow Rate 6 12/02/24 12:11 BMI result Body Mass Index 23.9 Const: Other: Patient is in ICU bed, with a advanced MS, very limited mobility. Chest: Other: Chest breath sounds bilaterally. Copious secretions. GI: Other: Feeding tube. Benign. Results Labs 12/16/24 05:40 12/16/24 04:12 Labs: Abnormal lab results 12/16/24 12/16/24 12/16/24 Range/Units 04:12 04:28 05:40 WBC 16.2 H 17.3 H (4.8-10.8) X10*3/uL RBC 2.75 L D 2.73 L (4.60-5.80) X10*6/uL Hgb 6.7 L* D 6.7 L* (14.0-18.0) g/dl Hct 20.6 L* D 20.4 L* (42.0-52.0) % MCV 74.9 L 74.7 L (80.0-98.0) fL MCH 24.4 L 24.5 L (27.0-33.0) pg RDW 18.7 H 19.0 H (11.0-16.0) % Immature Gran % (Auto) 0.7 H (0.0-0.4) % Neut % (Auto) 80.4 H (45-73) % Lymph % (Auto) 8.3 L (20-40) % [place] # (Auto) 1.6 H (0.1-1.2) X10*3/uL Abs Immat Gran (auto) 0.11 H (0.00-0.03) X10*3/uL Absolute Neuts (auto) 13.0 H (2.0-8.3) x10*3/uL PT 14.6 H D (10.9-12.4) SEC INR 1.3 H (0.9-1.1) VBG pH 7.60 H* (7.32-7.43) VBG HCO3 27 H (22-26) mmol/L Potassium 3.2 L D (3.3-5.1) mmol/L Anion Gap 11 L (12-20) BUN 8 L (9-16) mg/dL ALT 42 H (0-40) U/L Total Protein 6.4 L (6.5-8.0) g/dL Albumin 2.9 L (3.5-5.0) g/dL Crossmatch See Detail Short CBC 12/16/24 12/16/24 Range/Units 04:12 05:40 WBC 16.2 H 17.3 H (4.8-10.8) X10*3/uL Hgb 6.7 L* D 6.7 L* (14.0-18.0) g/dl Hct 20.6 L* D 20.4 L* (42.0-52.0) % Plt Count 340 336 (160-400) X10*3/uL BMP 12/16/24 04:12 Sodium 140 Potassium 3.2 L D Chloride 107 Carbon Dioxide 25 BUN 8 L Creatinine 0.51 Calcium 8.6 Liver Function 12/16/24 Range/Units 04:12 Total Bilirubin 0.3 (0.0-1.0) mg/dL AST 31 (5-37) U/L ALT 42 H (0-40) U/L Alkaline Phosphatase 56 (39-117) U/L Albumin 2.9 L (3.5-5.0) g/dL Urine 12/02/24 Range/Units 17:23 Urine Color Yellow Urine Appearance Turbid Urine pH 7.0 (5.0-9.0) Ur Specific [place] 1.010 (1.005-1.025) Urine Protein 300 (3+) H (Neg-Trace) mg/dL Urine Glucose (UA) Negative (Negative) mg/dL All other labs normal. Assessment and Plan (1) Aspiration pneumonia: Status: Acute (2) Copious oral secretions: Status: Acute Plan Risks, benefits, and alternatives of tracheostomy placement were reviewed with the patient was family member as well as his proxy included but not limited to bleeding, infection, numbness, pain, scarring, dislodgement and the patient and family wished to proceed. All questions answered. Consent signed. Arrangements will be made for this for tomorrow. Procedures Date of Service Date of Service: 12/16/24
[2024-12-16 17:32] LABS: Vancomycin Trough 13.4 mcg/mL (10.0-20.0)
--- NOTE | 2024-12-16 18:30 | PC.NURSE ---
Pt placed on sedation vacation at approx 0930. Pt able to answer questions and follow commands very soon after. HR noted to increase to 120s, MD aware. Placed on PSV of 8/5 at approx 0945. Pt tolerated well. Pt extubated per MD order at 1415. RT and this RN at bedside. Oral suction provided and pt placed on 4L NC to good effect. Pt speaking and able to make needs known. MD, family, case management, georgian napper tender, and patient discussed trach placement and current plan is for placement tomorrow. At approx 1030 pt recieved 1 unit RBCs. At 1600, pt complained of feeling full. TF stopped at this time.
[2024-12-16 20:33] LABS: Hematocrit 28.3 % (42.0-52.0); Hemoglobin 9.2 g/dl (14.0-18.0)
[2024-12-16 20:39] LABS: Potassium 3.7 mmol/L (3.3-5.1)
[2024-12-16] MEDS: Sennosides 8.6 MG TABLET 17.2 MG G-TUBE (21:20)
[2024-12-17] VITALS (27 sets, daily range): BP systolic 103–155; BP diastolic 50–102; PULSE 84–144; RESP 18–36; TEMP 31–38.1; O2SAT 86–100
[2024-12-17] MEDS: Metoprolol Tartrate 5 MG/5 ML VIAL IVPUSH (01:31)
[2024-12-17] MEDS: 0.9 % Sodium Chloride Flush 3 ML SYRINGE IVFLUSH ×3 (01:31→15:11)
[2024-12-17] MEDS: Piperacillin Sodium/Tazobactam 3.375 GM in 0.9 % Sodium Chloride 50 ML IV ×4 (05:05→22:15)
[2024-12-17] MEDS: vancomycin HCL 1,500 MG in 0.9 % Sodium Chloride 500 ML 333.33 MG IV (05:06)
[2024-12-17 05:24] LABS: Venous Blood Gas Refer to POC result
[2024-12-17 05:24] LABS: VBG Base Excess 6.7 mmol/L; VBG HCO3 29 mmol/L (22-26); VBG pCO2 34 mmHg; VBG pH 7.53 (7.32-7.43); VBG pO2 69 mmHg
[2024-12-17 05:37] LABS: Basophils Absolute Auto 0.1 X10*3/uL (0.0-0.2); Basophils Percent Auto 0.3 % (0-2); Eosinophils Absolute Auto 0.1 X10*3/uL (0.0-0.4); Eosinophils Percent Auto 0.3 % (0-4); Hematocrit 30.1 % (42.0-52.0); Hemoglobin 10.1 g/dl (14.0-18.0); Imm Gran Abs Auto 0.11 X10*3/uL (0.00-0.03); Imm Gran Pct Auto 0.6 % (0.0-0.4); Lymphocytes Absolute Auto 0.8 X10*3/uL (1.2-4.9); Lymphocytes Percent Auto 4.5 % (20-40); MANUAL DIFF FLAG SCAN; Mean Corpuscular HGB Conc 33.6 g/dl (31.0-36.0); Mean Corpuscular Hemoglobin 26.4 pg (27.0-33.0); Mean Corpuscular Volume 78.8 fL (80.0-98.0); Mean Platelet Volume 11.5 fL (9.4-12.4); Monocytes Absolute Auto 2.1 X10*3/uL (0.1-1.2); Monocytes Percent Auto 11.5 % (2-11); Neutrophils Absolute Auto 15.2 x10*3/uL (2.0-8.3); Neutrophils Percent Auto 82.8 % (45-73); Platelet Count 427 X10*3/uL (160-400); Red Blood Count 3.82 X10*6/uL (4.60-5.80); Red Cell Distribution Width 18.9 % (11.0-16.0); SCAN SMEAR FLAG 1; White Blood Count 18.3 X10*3/uL (4.8-10.8)
[2024-12-17 05:57] LABS: SLIDE REVIEW VERIFIED
[2024-12-17 06:02] LABS: Alanine Aminotransferase 70 U/L (0-40); Albumin Level 3.5 g/dL (3.5-5.0); Alkaline Phosphatase 77 U/L (39-117); Anion Gap 14 (12-20); Aspartate Amino Transferase 54 U/L (5-37); Bilirubin Total 0.5 mg/dL (0.0-1.0); Blood Urea Nitrogen 11 mg/dL (9-16); Calcium 9.5 mg/dL (8.4-10.2); Carbon Dioxide 26 mmol/L (22-29); Chloride 105 mmol/L (96-108); Creatinine Clr Calc Pharmacy 155.8; Estimated Glomerular Filt Rate > 60; Glucose Random 80 mg/dL (60-115); Phosphorus 3.2 mg/dL (2.7-4.5); Potassium 3.1 mmol/L (3.3-5.1); Sodium 142 mmol/L (135-145); Total Protein 8.1 g/dL (6.5-8.0)
--- NOTE | 2024-12-17 06:22 | PC.NURSE ---
CARE ASSUMED 7PM...AWAKE..RASPY VOICE BUT ABLE TO COMMUNICATE NEEDS...TUBE FEEDS PREVIOUSLY HELD..PER PROVIDER TUBE FEEDS TO REMAIN ON HOLD OVERNIGHT FOR PLANNED TRACHEOTOMY 12/17/24..HS MEDS VIA PEG GIVEN PER PROVIDER....O2 INITIALLY 4 L/M CANNULA WITH SAO2 98%...RAISING WHITE TO CREAM SECRETIONS OVERNIGHT AND O2 TITRATED TO 7 L/M WITH SAO2 90-925..PROVIDER AWARE....SINUS TACH HR 130...LOPRESSOR 5MG IV X1 WITH TEMPORARY DECREASED HR TO 110-112....SUPRAPUBIC CATHETER DRAINING LARGE AMOUNTS YELLOW URINE..NO BM OVERNIGHT..HS LOVENOX HELD PER PROVIDER...DENIES PAIN BUT INTERMITTANTLY ANXIOUS
--- NOTE | 2024-12-17 08:17 | P.PNCC_ITS ---
Subjective Subjective Date of Service: 12/17/24 Critical Care Time (minutes): 35 Comment: Patient was extubated yesterday as per his healthcare proxy is request so that he could talk to the patient about tracheostomy. After extubation Justus agreed for tracheostomy so we are planning to move forward with tracheostomy this morning. Overnight patient continued to have aspiration of the oral secretions with slight increase in oxygen requirement. Physical Exam 2 Vital Signs: Vital Signs: Last Vital Signs Temp 100.5 F H 12/17/24 03:54 Pulse 131 H 12/17/24 07:00 Resp 32 H 12/17/24 07:00 BP 119/86 12/17/24 07:00 Pulse Ox 92 12/17/24 07:00 O2 Del Method Nasal Cannula 12/17/24 07:00 O2 Flow Rate 7 12/17/24 07:00 FiO2 30 12/16/24 13:00 Oxygen Flow Rate 6 12/02/24 12:11 BMI result Body Mass Index 23.9 General: in mild acute distress, ill appearing and tired appearing Nutritional Appearance: well nourished and overweight Eyes: appearance normal, both eyes and all related structures; Alignment and Position: alignment normal and position normal Neck: No lymphadenopathy, no thyromegaly Resp: bilateral air entry equal, occasional added sounds present Cardio: Regular rate, regular rhythm; Heart sounds: S1 normal heart sound present and S2 normal heart sound present GI: soft, nontender, no guarding, no hepatosplenomegaly : bladder normal to inspection, bladder normal to palpation, no renal angle tenderness Skin: no rashes or lesions noted and elasticity normal Neuro: oriented to person, oriented to place, oriented to time , spastic paraparesis Objective Data Labs 12/17/24 05:12 12/17/24 05:24 Labs: Laboratory Results - last 24 hr 12/16/24 12/16/24 12/16/24 05:40 16:01 20:25 WBC RBC Hgb 9.2 L D Hct 28.3 L D MCV MCH MCHC RDW Plt Count MPV Immature Gran % (Auto) Neut % (Auto) Lymph % (Auto) [place] % (Auto) Eos % (Auto) Baso % (Auto) Lymph # (Auto) [place] # (Auto) Eos # (Auto) Baso # (Auto) Abs Immat Gran (auto) Absolute Neuts (auto) Absolute Nucleated RBC Nucleated RBC % (auto) Smear Tech's Comments VBG pH VBG pCO2 VBG pO2 VBG HCO3 VBG O2 Saturation VBG Base Excess Sodium Potassium 3.7 Chloride Carbon Dioxide Anion Gap BUN Creatinine Estim Creat Clear Calc Estimated GFR Random Glucose Calcium Phosphorus Magnesium Total Bilirubin AST ALT Alkaline Phosphatase Total Protein Albumin Vancomycin Trough 13.4 Blood Type A Positive Antibody Screen NEGATIVE Crossmatch See Detail 12/17/24 12/17/24 12/17/24 05:12 05:15 05:24 WBC 18.3 H RBC 3.82 L D Hgb 10.1 L Hct 30.1 L MCV 78.8 L MCH 26.4 L MCHC 33.6 RDW 18.9 H Plt Count 427 H D MPV 11.5 Immature Gran % (Auto) 0.6 H Neut % (Auto) 82.8 H Lymph % (Auto) 4.[address] [place] % (Auto) 11.5 H Eos % (Auto) 0.3 Baso % (Auto) 0.3 Lymph # (Auto) 0.[address] [place] # (Auto) 2.1 H Eos # (Auto) 0.1 Baso # (Auto) 0.1 Abs Immat Gran (auto) 0.11 H Absolute Neuts (auto) 15.2 H Absolute Nucleated RBC 0.000 Nucleated RBC % (auto) 0.0 Smear Tech's Comments VERIFIED VBG pH 7.53 H VBG pCO2 34 VBG pO2 69 VBG HCO3 29 H VBG O2 Saturation 93.0 VBG Base Excess 6.7 Sodium 142 Potassium 3.1 L Chloride 105 Carbon Dioxide 26 Anion Gap 14 BUN 11 Creatinine 0.63 Estim Creat Clear Calc 155.8 Estimated GFR > 60 Random Glucose 80 Calcium 9.5 D Phosphorus 3.2 Magnesium 2.0 Total Bilirubin 0.5 AST 54 H ALT 70 H Alkaline Phosphatase 77 Total Protein 8.1 H Albumin 3.5 Vancomycin Trough Blood Type Antibody Screen Crossmatch Microbiology Microbiology Results: Microbiology 12/15/24 04:37 Blood - Venous Blood Culture - Preliminary No growth after 48 hours. 12/15/24 04:37 Blood - Venous Blood Culture - Preliminary No growth after 48 hours. 12/15/24 14:07 Urine Catheterized - Villatoro Catheter Urine Culture - Preliminary Culture in progress. 12/15/24 10:30 Sputum - Suctioned Gram Stain - Final 12/15/24 10:30 Sputum - Suctioned Sputum Culture - Preliminary Culture in progress. 12/02/24 12:46 Blood - Venous Blood Culture - Final No growth after 5 days. 12/02/24 12:46 Blood - Venous Blood Culture - Final No growth after 5 days. 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 He received IVIG, followed by oral steroids and Rituxan in November Cardiac: Tachycardia: Sinus tach, anxiety related we will treat him Dilaudid Respiratory: Acute on chronic hypoxemic respiratory failure: Has underlying significant neurological disorder because of which he can not clear the secretions, acute respiratory failure is secondary to aspiration pneumonia. Upon request from the patient's healthcare proxy patient was extubated yesterday so that he can make decisions about the tracheostomy. Justus agreed to undergo tracheostomy as he understood this is life-saving, healthcare proxy agrees with the same. Patient is scheduled to undergo tracheostomy today, we will possibly intubate the patient later on for the procedure. IV Robinol to decrease the secretion. Underwent bronchoscopic lavage of the left lung yesterday, right lung bronchial mucosa looked normal with no obstruction or erythema or swelling. GI: on tube feeds Renal: Baseline creatinine normal, creatinine today is 0.59 We will closely monitor I's and O's Avoid nephrotoxic medications Heme: Acute anemia: Hemoglobin stable All cell lines increased this morning possibly secondary to volume constriction Receiving 1 PRBC transfusion Endocrine: Blood sugars under control Sliding scale insulin as needed Infectious disease: Repeat blood, bronch and urine cultures negative so far, resistant enterobacter in the urine upon admission Antibiotics escalated to vanc and Zosyn given concerns for hospital-acquired infections, continue Bactrim for resistant Enterobacter UTI. We will stop vanc today after the procedure He was earlier treated with cefepime and linezolid for urinary tract infection in the setting of chronic indwelling suprapubic catheter Musculoskeletal: Decubitus ulcer prevention protocol Lines: Right IJ TLC Prophylaxis: Lovenox, pantoprazole Quality Stroke Does the patient have a stroke diagnosis?: No VTE Prior VTE?: No VTE Risk Level:: Medical - moderate - high VTE Device Contraindication: Treatment Not Indicated VTE Drug Contraindication: N/A - Med Ordered
[2024-12-17] MEDS: Glycopyrrolate 0.2 MG/ML VIAL 0.1 MG IVPUSH (08:22)
[2024-12-17] MEDS: Potassium Chloride Packet 20 MEQ PACKET 40 MEQ PO (08:23)
[2024-12-17] MEDS: HYDROmorphone HCl 0.5 MG/0.5 ML SYRINGE IVPUSH (08:33)
[2024-12-17] MEDS: dexmedeTOMIDidine HCL/NS 400 MCG/100 ML INFUS..BTL 18.35 MCG IVCONT (08:50)
--- NOTE | 2024-12-17 09:42 | MHC.CLN ---
F/U DISCUSSED AT ROUNDS WITH PT IS CURRENTLY NPO-PLAN FOR TRACH TODAY PENDING OR WHEN DIET TO RESUME RE-START PROMOTE AT MAX GOAL RATE 70ML/HR WITH 240ML FREE WATER FLUSHES Q 8 HRS TO PROVIDE 1680KCALS (2261KCALS WITH SEDATION; 31KCALS/KG), 105G PROTEIN (1.5G/KG), 2129ML TOTAL WATER FROM FORMULA AND FLUSHES (29ML/KG) TF WILL PROMOTE WOUND HEALING MONITOR TOLERANCE AND LYTES
[2024-12-17] MEDS: Albumin Human 25 % 100 ML IV ×2 (10:08→15:08)
--- NOTE | 2024-12-17 10:16 | MHC.SLORD ---
Speech Language Pathology Order Status: Patient was extubated 12/16, plan for tracheostomy procedure 12/17. WEB OPERATIONS SPECIALIST will continue to follow.
[2024-12-17] MEDS: Etomidate 20 MG/10 ML VIAL IVPUSH (10:29)
[2024-12-17] MEDS: Succinylcholine Chloride 100 MG/5 ML SYRINGE IVPUSH (10:30)
[2024-12-17] MEDS: propofoL 1,000 MG/100 ML VIAL 13.21 MG IVCONT (10:32)
[2024-12-17] MEDS: fentaNYL citrate/NS 1,000 MCG/100 ML PLAST..BAG 2.5 MCG IVCONT (10:36)
[2024-12-17] MEDS: 0.9 % Sodium Chloride 1,000 ML 999 ML IV (10:45)
[2024-12-17] MEDS: Midazolam HCl 2 MG/2 ML VIAL 4 MG IVPUSH (10:57)
--- NOTE | 2024-12-17 11:28 | HO.ANESPROP2 ---
HPI - Anesthesia Eval Consult details Narrative: 39 yo male patient with multiple sclerosis. H/o prolonged ICU admission and intubation. Extubated yesterday but with inability to clear secretions and aspirations. For tracheostomy tube placement. Patient re intubated this morning PMF Active Problems Active Problems: All Active Problems Copious oral secretions (Acute) Encounter for assessment of decision-making capacity (Acute) Tachycardia (Acute) Sepsis (Acute) Acute UTI (Acute) Pneumonia (Acute) Aspiration pneumonia (Acute) Dysphagia (Acute) Demyelinating disease (Acute) Low TSH level (Acute) Hypokalemia (Acute) Neurogenic urinary bladder disorder (Acute) Sepsis (Acute) Acute UTI (Acute) Respiratory failure Past Medical History Medical History Dysphagia Neurogenic urinary bladder disorder Suprapubic catheter dysfunction Urinary tract infection 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 Microcytic anemia Multiple sclerosis Headache Family History Family History Other No family history of coronary artery disease Family history of problems with anesthesia: No Surgical History Surgical History H/O hernia repair History of Problems with Anesthesia: No Social History Social History Household Members: Family Household Members Other:: parents Housing: Apartment 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 have visiting nurse or other home services: Yes Unable to assess alcohol history related to: Unknown Alcohol intake: never Comment: propofol/fentanyl drips..bilateral wrist restraints for airway safety Patient Tobacco Use Status: Former Tobacco user Tobacco use type: Cigarette Cigarettes Per Day: 0.25 Substance Use Type: Marijuana Advance Directives Date on File: 12/01/24 service: No Current occupational status: disabled Meds Allergies Allergy/AdvReac Type Severity Reaction Status Date / Time doxycycline Allergy Rash Verified 12/02/24 12:13 Active Medications: Current Medications Acetaminophen (Acetaminophen 325 Mg Tablet) 650 mg G-TUBE Q6H PRN PRN Reason: Pain, Mild 1-3,fever,headache Last Admin: 12/14/24 20:43 Dose: 650 mg Chlorhexidine Gluconate (Chlorhexidine Gluc Oral Rinse 15 Ml Mouthwash) 15 ml BUCCAL TID LALO Last Admin: 12/17/24 09:40 Dose: Not Given Cyclobenzaprine HCl (Cyclobenzaprine Hcl 10 Mg Tablet) 10 mg G-TUBE TID COUNTS INCLUDE 234 BEDS AT THE [facility] Last Admin: 12/17/24 09:40 Dose: Not Given Enoxaparin Sodium (Enoxaparin Sodium 40 Mg/0.4 Ml Syringe) 40 mg SUBCUT Q24H LALO Last Admin: 12/16/24 19:21 Dose: Not Given Glycopyrrolate (Glycopyrrolate 0.2 Mg/Ml Vial) 0.1 mg IVPUSH Q4H PRN PRN Reason: secretions Last Admin: 12/17/24 08:22 Dose: 0.1 mg Piperacillin Sod/Tazobactam (Sod 3.375 gm/ Sodium Chloride) 50 mls @ 100 mls/hr IV Q6H COUNTS INCLUDE 234 BEDS AT THE [facility] Last Infusion: 12/17/24 06:21 Dose: Infused Vancomycin HCl 1,500 mg/ (Sodium Chloride) 500 mls @ 333.333 mls/hr IV Q12H COUNTS INCLUDE 234 BEDS AT THE [facility] Last Infusion: 12/17/24 06:46 Dose: Infused Albumin Human (Kedbumin 25 %) 100 mls @ 100 mls/hr IV Q6H COUNTS INCLUDE 234 BEDS AT THE [facility] Stop: 12/17/24 14:59 Last Infusion: 12/17/24 11:11 Dose: Infused Dexmedetomidine HCl (Precedex) 400 mcg in 100 mls @ 0 mls/hr IVCONT .Q0M COUNTS INCLUDE 234 BEDS AT THE [facility]; Protocol Last Titration: 12/17/24 09:40 Dose: 1.5 mcg/kg/hr, 27.53 mls/hr Propofol (Diprivan) 1,000 mg in 100 mls @ 0 mls/hr IVCONT .Q0M COUNTS INCLUDE 234 BEDS AT THE [facility]; Protocol Last Admin: 12/17/24 10:32 Dose: 30 mcg/kg/min, 13.21 mls/hr Fentanyl (Sublimaze/Ns) 1,000 mcg in 100 mls @ 0 mls/hr IVCONT .Q0M COUNTS INCLUDE 234 BEDS AT THE [facility]; Protocol Last Admin: 12/17/24 10:36 Dose: 25 mcg/hr, 2.5 mls/hr Sodium Chloride (Ns) 1,000 mls @ 999 mls/hr IV .Q1H1M COUNTS INCLUDE 234 BEDS AT THE [facility] Stop: 12/17/24 11:45 Last Admin: 12/17/24 10:45 Dose: 999 mls/hr Magnesium Hydroxide (Milk Of Magnesia 30 Ml Oral.Susp) 30 ml G-TUBE DAILY PRN PRN Reason: Constipation Naloxone HCl (Naloxone Hcl 0.4 Mg/Ml Vial) 0.2 mg IVPUSH Q2M PRN PRN Reason: Excessive sedation or RR < 8 Ondansetron HCl (Ondansetron Hcl 4 Mg/2 Ml Vial) 4 mg IVPUSH Q8H PRN PRN Reason: Nausea and Vomiting Pharmacy Consult (Consult Rx Vancomycin Dosing) 1 each MISCELLANE DAILY PRN PRN Reason: Consult order Prednisone (Prednisone 20 Mg Tablet) 20 mg PO DAILY COUNTS INCLUDE 234 BEDS AT THE [facility] Last Admin: 12/17/24 09:40 Dose: Not Given Senna (Sennosides 8.6 Mg Tablet) 17.2 mg G-TUBE BEDTIME COUNTS INCLUDE 234 BEDS AT THE [facility] Last Admin: 12/16/24 21:20 Dose: 17.2 mg Sertraline HCl (Sertraline Hcl 50 Mg Tablet) 50 mg G-TUBE DAILY COUNTS INCLUDE 234 BEDS AT THE [facility] Last Admin: 12/17/24 09:41 Dose: Not Given Sodium Chloride (0.9 % Sodium Chloride Flush 3 Ml Syringe) 3 ml IVFLUSH QSHIFT COUNTS INCLUDE 234 BEDS AT THE [facility] Last Admin: 12/17/24 08:25 Dose: 3 ml Trimethoprim/Sulfamethoxazole (Sulfamethox/Trimeth 800/160 Tablet) 1 tab PO Q12H COUNTS INCLUDE 234 BEDS AT THE [facility] Last Admin: 12/17/24 11:04 Dose: Not Given Vitamin D (Cholecalciferol (Vitamin D3) 25 Mcg Tablet) 50 mcg G-TUBE DAILY COUNTS INCLUDE 234 BEDS AT THE [facility] Last Admin: 12/17/24 09:40 Dose: Not Given Home Medications ?Medication ?Instructions ?Recorded ?Confirmed ?Last Taken ?Type clindamycin phosphate 1 % lotion 1 appl topical BID 09/10/24 12/02/24 10/10/24 History clotrimazole-betamethasone 1 1 appl topical BID 10/11/24 12/02/24 10/10/24 History %-0.05 % topical cream prednisone 20 mg tablet 20 mg PO DAILY 10/21/24 12/02/24 Unknown History Exam Height,Weight and Vital Signs: Height 5 ft 9 in Weight 73.4 kg Last Vital Signs Temp 99.8 F 12/17/24 08:00 Pulse 138 H 12/17/24 10:00 Resp 31 H 12/17/24 10:00 BP 140/90 H 12/17/24 10:00 Pulse Ox 86 L 12/17/24 10:00 O2 Del Method Non-Rebreather Mask 12/17/24 10:00 O2 Flow Rate 15 12/17/24 10:00 FiO2 30 12/16/24 13:00 Oxygen Flow Rate 6 12/02/24 12:11 Pertinent Lab Results Pertinent Lab Results: Laboratory Tests 12/02/24 12/02/24 12/02/24 12:50 12:51 12:52 WBC 38.6 H* RBC 6.11 H D Hgb 14.9 D Hct 45.0 D MCV 73.6 L MCH 24.4 L MCHC 33.1 RDW 19.9 H Plt Count 392 D MPV 12.2 Immature Gran % (Auto) Cancelled Neut % (Auto) Cancelled Lymph % (Auto) Cancelled [place] % (Auto) Cancelled Eos % (Auto) Cancelled Baso % (Auto) Cancelled Lymph # (Auto) Cancelled [place] # (Auto) Cancelled Eos # (Auto) Cancelled Baso # (Auto) Cancelled Abs Immat Gran (auto) Cancelled Absolute Neuts (auto) Cancelled Absolute Nucleated RBC 0.000 Nucleated RBC % (auto) 0.0 Neutrophils % (Manual) 91 H Band Neutrophils % 0 L Monocytes % (Manual) 8 Basophils % (Manual) 1 Abs Neuts (Manual) 35.1 H Monocytes # (Manual) 3.1 H Basophils # (Manual) 0.4 H Toxic Vacuolation PRESENT Platelet Estimate NORMAL Large Platelets PRESENT Plt Morphology Comment NOTE RBC Morphology NORMAL Microcytosis 1+ (5-14) Smear Tech's Comments Smear Path Review SEE NOTE PT INR O2 Saturation ABG pH at Pt Temp ABG pCO2 at Pt Temp ABG pO2 at Pt Temp ABG HCO3 ABG Base Excess (Actual) VBG pH VBG pCO2 VBG pO2 VBG HCO3 VBG O2 Saturation VBG Base Excess Sodium 141 Potassium 4.0 D Chloride 104 Carbon Dioxide 21 L Anion Gap 20 BUN 29 H Creatinine 1.03 Estim Creat Clear Calc 95.3 Estimated GFR > 60 POC Glucose Random Glucose 163 H Lactic Acid 1.9 Calcium 9.3 Phosphorus Magnesium 2.0 Total Bilirubin 0.7 AST 17 ALT 39 Alkaline Phosphatase 74 Troponin I High Sens 12.3 D B-Natriuretic Peptide 14 Total Protein 7.4 Albumin 3.7 Lipase 9 Procalcitonin TSH Free T4 Free T3 Urine Color Urine Appearance Urine pH Ur Specific [place] Urine Protein Urine Glucose (UA) Urine Ketones Urine Blood Urine Nitrite Ur Leukocyte Esterase Urine RBC Urine WBC Ur Squamous Epith Cells Urine Bacteria Hyaline Casts Nasal Screen MRSA (PCR) Nasal S. aureus Screen Nasal MRSA/S.aureus Interp Vancomycin Trough Random Vancomycin Influenza Type A (PCR) NEGATIVE Influenza Type B (PCR) NEGATIVE RSV RNA Qual (PCR) NEGATIVE SARS-CoV-2 RNA (RT-PCR) NEGATIVE Blood Type Antibody Screen Crossmatch 12/02/24 12/02/24 12/03/24 12:58 17:23 04:15 WBC 31.3 H* RBC 5.06 Hgb 12.3 L Hct 37.1 L MCV 73.3 L MCH 24.3 L MCHC 33.2 RDW 19.0 H Plt Count 264 D MPV 11.3 Immature Gran % (Auto) Neut % (Auto) Lymph % (Auto) [place] % (Auto) Eos % (Auto) Baso % (Auto) Lymph # (Auto) [place] # (Auto) Eos # (Auto) Baso # (Auto) Abs Immat Gran (auto) Absolute Neuts (auto) Absolute Nucleated RBC 0.000 Nucleated RBC % (auto) 0.0 Neutrophils % (Manual) Band Neutrophils % Monocytes % (Manual) Basophils % (Manual) Abs Neuts (Manual) Monocytes # (Manual) Basophils # (Manual) Toxic Vacuolation Platelet Estimate Large Platelets Plt Morphology Comment RBC Morphology Microcytosis Smear Tech's Comments Smear Path Review PT INR O2 Saturation ABG pH at Pt Temp ABG pCO2 at Pt Temp ABG pO2 at Pt Temp ABG HCO3 ABG Base Excess (Actual) VBG pH 7.55 H VBG pCO2 27 VBG pO2 106 VBG HCO3 24 VBG O2 Saturation 99.0 VBG Base Excess 3.5 Sodium 142 Potassium 3.6 Chloride 112 H Carbon Dioxide 20 L Anion Gap 14 BUN 16 Creatinine 0.56 Estim Creat Clear Calc 175.3 Estimated GFR > 60 POC Glucose Random Glucose 106 Lactic Acid Calcium 8.5 D Phosphorus Magnesium Total Bilirubin AST ALT Alkaline Phosphatase Troponin I High Sens B-Natriuretic Peptide Total Protein Albumin Lipase Procalcitonin TSH Free T4 Free T3 Urine Color Yellow Urine Appearance Turbid Urine pH 7.0 Ur Specific [place] 1.010 Urine Protein 300 (3+) H Urine Glucose (UA) Negative Urine Ketones Negative Urine Blood Large (3+) H Urine Nitrite Negative Ur Leukocyte Esterase Moderate (2+) H Urine RBC >20 H Urine WBC >50 Ur Squamous Epith Cells 0-2 Urine Bacteria Trace Hyaline Casts 0-2 Nasal Screen MRSA (PCR) Nasal S. aureus Screen Nasal MRSA/S.aureus Interp Vancomycin Trough Random Vancomycin Influenza Type A (PCR) Influenza Type B (PCR) RSV RNA Qual (PCR) SARS-CoV-2 RNA (RT-PCR) Blood Type Antibody Screen Crossmatch 12/03/24 12/04/24 12/04/24 11:15 07:34 10:08 WBC 25.0 H RBC 3.75 L D Hgb 9.3 L D Hct 27.6 L D MCV 73.6 L MCH 24.8 L MCHC 33.7 RDW 18.5 H Plt Count 192 D MPV 11.9 Immature Gran % (Auto) Neut % (Auto) Lymph % (Auto) [place] % (Auto) Eos % (Auto) Baso % (Auto) Lymph # (Auto) [place] # (Auto) Eos # (Auto) Baso # (Auto) Abs Immat Gran (auto) Absolute Neuts (auto) Absolute Nucleated RBC 0.000 Nucleated RBC % (auto) 0.0 Neutrophils % (Manual) Band Neutrophils % Monocytes % (Manual) Basophils % (Manual) Abs Neuts (Manual) Monocytes # (Manual) Basophils # (Manual) Toxic Vacuolation Platelet Estimate Large Platelets Plt Morphology Comment RBC Morphology Microcytosis Smear Tech's Comments Smear Path Review PT INR O2 Saturation ABG pH at Pt Temp ABG pCO2 at Pt Temp ABG pO2 at Pt Temp ABG HCO3 ABG Base Excess (Actual) VBG pH VBG pCO2 VBG pO2 VBG HCO3 VBG O2 Saturation VBG Base Excess Sodium 138 Potassium 2.9 L* Chloride 109 H Carbon Dioxide 21 L Anion Gap 11 L BUN 7 L Creatinine 0.41 L Estim Creat Clear Calc 239.4 Estimated GFR > 60 POC Glucose Random Glucose 110 Lactic Acid Calcium 8.1 L Phosphorus Magnesium Total Bilirubin AST ALT Alkaline Phosphatase Troponin I High Sens B-Natriuretic Peptide Total Protein Albumin Lipase Procalcitonin TSH Free T4 1.45 Free T3 2.7 Urine Color Urine Appearance Urine pH Ur Specific [place] Urine Protein Urine Glucose (UA) Urine Ketones Urine Blood Urine Nitrite Ur Leukocyte Esterase Urine RBC Urine WBC Ur Squamous Epith Cells Urine Bacteria Hyaline Casts Nasal Screen MRSA (PCR) Nasal S. aureus Screen Nasal MRSA/S.aureus Interp Vancomycin Trough 15.7 Random Vancomycin 10.8 L Influenza Type A (PCR) Influenza Type B (PCR) RSV RNA Qual (PCR) SARS-CoV-2 RNA (RT-PCR) Blood Type Antibody Screen Crossmatch 12/04/24 12/05/24 12/05/24 11:41 02:40 09:56 WBC 21.6 H RBC 3.44 L Hgb 8.6 L Hct 25.4 L MCV 73.8 L MCH 25.0 L MCHC 33.9 RDW 18.5 H Plt Count 162 MPV 12.5 H Immature Gran % (Auto) Neut % (Auto) Lymph % (Auto) [place] % (Auto) Eos % (Auto) Baso % (Auto) Lymph # (Auto) [place] # (Auto) Eos # (Auto) Baso # (Auto) Abs Immat Gran (auto) Absolute Neuts (auto) Absolute Nucleated RBC 0.000 Nucleated RBC % (auto) 0.0 Neutrophils % (Manual) Band Neutrophils % Monocytes % (Manual) Basophils % (Manual) Abs Neuts (Manual) Monocytes # (Manual) Basophils # (Manual) Toxic Vacuolation Platelet Estimate Large Platelets Plt Morphology Comment RBC Morphology Microcytosis Smear Tech's Comments Smear Path Review PT INR O2 Saturation ABG pH at Pt Temp ABG pCO2 at Pt Temp ABG pO2 at Pt Temp ABG HCO3 ABG Base Excess (Actual) VBG pH VBG pCO2 VBG pO2 VBG HCO3 VBG O2 Saturation VBG Base Excess Sodium 140 140 Potassium 3.0 L 2.9 L* Chloride 106 105 Carbon Dioxide 26 27 Anion Gap 11 L 11 L BUN 6 L 6 L Creatinine 0.40 L 0.40 L Estim Creat Clear Calc 245.4 245.4 Estimated GFR > 60 > 60 POC Glucose Random Glucose 102 111 Lactic Acid Calcium 8.3 L 8.3 L Phosphorus Magnesium Total Bilirubin AST ALT Alkaline Phosphatase Troponin I High Sens B-Natriuretic Peptide Total Protein Albumin Lipase Procalcitonin TSH Free T4 Free T3 Urine Color Urine Appearance Urine pH Ur Specific [place] Urine Protein Urine Glucose (UA) Urine Ketones Urine Blood Urine Nitrite Ur Leukocyte Esterase Urine RBC Urine WBC Ur Squamous Epith Cells Urine Bacteria Hyaline Casts Nasal Screen MRSA (PCR) NEGATIVE Nasal S. aureus Screen NEGATIVE Nasal MRSA/S.aureus Interp SEE NOTE Vancomycin Trough 19.6 Random Vancomycin Influenza Type A (PCR) Influenza Type B (PCR) RSV RNA Qual (PCR) SARS-CoV-2 RNA (RT-PCR) Blood Type Antibody Screen Crossmatch 12/06/24 12/06/24 12/08/24 06:20 12:03 08:57 WBC 12.2 H RBC 3.70 L Hgb 8.9 L Hct 27.4 L MCV 74.1 L MCH 24.1 L MCHC 32.5 RDW 18.5 H Plt Count 238 D MPV 11.4 Immature Gran % (Auto) Neut % (Auto) Lymph % (Auto) [place] % (Auto) Eos % (Auto) Baso % (Auto) Lymph # (Auto) [place] # (Auto) Eos # (Auto) Baso # (Auto) Abs Immat Gran (auto) Absolute Neuts (auto) Absolute Nucleated RBC 0.000 Nucleated RBC % (auto) 0.0 Neutrophils % (Manual) Band Neutrophils % Monocytes % (Manual) Basophils % (Manual) Abs Neuts (Manual) Monocytes # (Manual) Basophils # (Manual) Toxic Vacuolation Platelet Estimate Large Platelets Plt Morphology Comment RBC Morphology Microcytosis Smear Tech's Comments Smear Path Review PT INR O2 Saturation ABG pH at Pt Temp ABG pCO2 at Pt Temp ABG pO2 at Pt Temp ABG HCO3 ABG Base Excess (Actual) VBG pH VBG pCO2 VBG pO2 VBG HCO3 VBG O2 Saturation VBG Base Excess Sodium 138 Potassium 3.5 D 3.5 Chloride 102 Carbon Dioxide 28 Anion Gap 12 BUN 11 Creatinine 0.46 L 0.51 Estim Creat Clear Calc 213.4 192.5 Estimated GFR > 60 > 60 POC Glucose Random Glucose 112 Lactic Acid Calcium 8.7 Phosphorus Magnesium Total Bilirubin AST ALT Alkaline Phosphatase Troponin I High Sens B-Natriuretic Peptide Total Protein Albumin Lipase Procalcitonin TSH Free T4 Free T3 Urine Color Urine Appearance Urine pH Ur Specific [place] Urine Protein Urine Glucose (UA) Urine Ketones Urine Blood Urine Nitrite Ur Leukocyte Esterase Urine RBC Urine WBC Ur Squamous Epith Cells Urine Bacteria Hyaline Casts Nasal Screen MRSA (PCR) Nasal S. aureus Screen Nasal MRSA/S.aureus Interp Vancomycin Trough 11.9 Random Vancomycin Influenza Type A (PCR) Influenza Type B (PCR) RSV RNA Qual (PCR) SARS-CoV-2 RNA (RT-PCR) Blood Type Antibody Screen Crossmatch 12/11/24 12/13/2425 11:59 07:08 04:20 WBC 15.5 H 25.6 H RBC 4.01 L 4.16 L Hgb 9.7 L 10.2 L Hct 30.5 L 31.8 L MCV 76.1 L 76.4 L MCH 24.2 L 24.5 L MCHC 31.8 32.1 RDW 19.5 H 19.7 H Plt Count 401 H D 452 H MPV 11.5 11.4 Immature Gran % (Auto) 0.7 H 0.9 H Neut % (Auto) 80.2 H 87.7 H Lymph % (Auto) 7.5 L 3.0 L [place] % (Auto) 9.7 8.1 Eos % (Auto) 1.5 0.1 Baso % (Auto) 0.4 0.2 Lymph # (Auto) 1.2 0.8 L [place] # (Auto) 1.5 H 2.1 H Eos # (Auto) 0.2 0.0 Baso # (Auto) 0.1 0.1 Abs Immat Gran (auto) 0.11 H 0.24 H Absolute Neuts (auto) 12.4 H 22.5 H Absolute Nucleated RBC 0.000 0.000 Nucleated RBC % (auto) 0.0 0.0 Neutrophils % (Manual) Band Neutrophils % Monocytes % (Manual) Basophils % (Manual) Abs Neuts (Manual) Monocytes # (Manual) Basophils # (Manual) Toxic Vacuolation Platelet Estimate Large Platelets Plt Morphology Comment RBC Morphology Microcytosis Smear Tech's Comments VERIFIED VERIFIED Smear Path Review PT INR O2 Saturation ABG pH at Pt Temp ABG pCO2 at Pt Temp ABG pO2 at Pt Temp ABG HCO3 ABG Base Excess (Actual) VBG pH VBG pCO2 VBG pO2 VBG HCO3 VBG O2 Saturation VBG Base Excess Sodium 139 138 Potassium 3.6 5.3 H D Chloride 103 100 Carbon Dioxide 27 24 Anion Gap 13 19 BUN 12 10 Creatinine 0.54 0.59 Estim Creat Clear Calc 181.8 166.4 Estimated GFR > 60 > 60 POC Glucose 133 H Random Glucose 118 H 96 Lactic Acid 1.8 Calcium 9.3 D 8.9 Phosphorus 4.8 H Magnesium 2.1 Total Bilirubin 0.4 AST 64 H ALT 78 H Alkaline Phosphatase 73 Troponin I High Sens < 2.7 D B-Natriuretic Peptide < 10 Total Protein 9.0 H Albumin 3.2 L Lipase Procalcitonin 0.07 TSH 2.17 Free T4 Free T3 Urine Color Urine Appearance Urine pH Ur Specific [place] Urine Protein Urine Glucose (UA) Urine Ketones Urine Blood Urine Nitrite Ur Leukocyte Esterase Urine RBC Urine WBC Ur Squamous Epith Cells Urine Bacteria Hyaline Casts Nasal Screen MRSA (PCR) Nasal S. aureus Screen Nasal MRSA/S.aureus Interp Vancomycin Trough Random Vancomycin Influenza Type A (PCR) Influenza Type B (PCR) RSV RNA Qual (PCR) SARS-CoV-2 RNA (RT-PCR) Blood Type Antibody Screen Crossmatch 12/15/24 12/16/24 12/16/24 04:22 04:12 04:28 WBC 16.2 H RBC 2.75 L D Hgb 6.7 L* D Hct 20.6 L* D MCV 74.9 L MCH 24.4 L MCHC 32.5 RDW 18.7 H Plt Count 340 MPV 11.0 Immature Gran % (Auto) 0.7 H Neut % (Auto) 80.4 H Lymph % (Auto) 8.3 L [place] % (Auto) 9.8 Eos % (Auto) 0.6 Baso % (Auto) 0.2 Lymph # (Auto) 1.3 [place] # (Auto) 1.6 H Eos # (Auto) 0.1 Baso # (Auto) 0.0 Abs Immat Gran (auto) 0.11 H Absolute Neuts (auto) 13.0 H Absolute Nucleated RBC 0.000 Nucleated RBC % (auto) 0.0 Neutrophils % (Manual) Band Neutrophils % Monocytes % (Manual) Basophils % (Manual) Abs Neuts (Manual) Monocytes # (Manual) Basophils # (Manual) Toxic Vacuolation Platelet Estimate Large Platelets Plt Morphology Comment RBC Morphology Microcytosis Smear Tech's Comments VERIFIED Smear Path Review PT 14.6 H D INR 1.3 H O2 Saturation 95.0 ABG pH at Pt Temp 7.43 ABG pCO2 at Pt Temp 46 H ABG pO2 at Pt Temp 69 L ABG HCO3 31 H ABG Base Excess (Actual) 6.1 VBG pH 7.60 H* VBG pCO2 27 VBG pO2 68 VBG HCO3 27 H VBG O2 Saturation 97.0 VBG Base Excess 6.2 Sodium 140 Potassium 3.2 L D Chloride 107 Carbon Dioxide 25 Anion Gap 11 L BUN 8 L Creatinine 0.51 Estim Creat Clear Calc 192.5 Estimated GFR > 60 POC Glucose Random Glucose 100 Lactic Acid Calcium 8.6 Phosphorus 2.8 Magnesium 1.9 Total Bilirubin 0.3 AST 31 ALT 42 H Alkaline Phosphatase 56 Troponin I High Sens B-Natriuretic Peptide Total Protein 6.4 L Albumin 2.9 L Lipase Procalcitonin TSH Free T4 Free T3 Urine Color Urine Appearance Urine pH Ur Specific [place] Urine Protein Urine Glucose (UA) Urine Ketones Urine Blood Urine Nitrite Ur Leukocyte Esterase Urine RBC Urine WBC Ur Squamous Epith Cells Urine Bacteria Hyaline Casts Nasal Screen MRSA (PCR) Nasal S. aureus Screen Nasal MRSA/S.aureus Interp Vancomycin Trough Random Vancomycin Influenza Type A (PCR) Influenza Type B (PCR) RSV RNA Qual (PCR) SARS-CoV-2 RNA (RT-PCR) Blood Type Antibody Screen Crossmatch 12/16/24 12/16/24 12/16/24 05:40 16:01 20:25 WBC 17.3 H RBC 2.73 L Hgb 6.7 L* 9.2 L D Hct 20.4 L* 28.3 L D MCV 74.7 L MCH 24.5 L MCHC 32.8 RDW 19.0 H Plt Count 336 MPV 11.5 Immature Gran % (Auto) Neut % (Auto) Lymph % (Auto) [place] % (Auto) Eos % (Auto) Baso % (Auto) Lymph # (Auto) [place] # (Auto) Eos # (Auto) Baso # (Auto) Abs Immat Gran (auto) Absolute Neuts (auto) Absolute Nucleated RBC 0.000 Nucleated RBC % (auto) 0.0 Neutrophils % (Manual) Band Neutrophils % Monocytes % (Manual) Basophils % (Manual) Abs Neuts (Manual) Monocytes # (Manual) Basophils # (Manual) Toxic Vacuolation Platelet Estimate Large Platelets Plt Morphology Comment RBC Morphology Microcytosis Smear Tech's Comments Smear Path Review PT INR O2 Saturation ABG pH at Pt Temp ABG pCO2 at Pt Temp ABG pO2 at Pt Temp ABG HCO3 ABG Base Excess (Actual) VBG pH VBG pCO2 VBG pO2 VBG HCO3 VBG O2 Saturation VBG Base Excess Sodium Potassium 3.7 Chloride Carbon Dioxide Anion Gap BUN Creatinine Estim Creat Clear Calc Estimated GFR POC Glucose Random Glucose Lactic Acid Calcium Phosphorus Magnesium Total Bilirubin AST ALT Alkaline Phosphatase Troponin I High Sens B-Natriuretic Peptide Total Protein Albumin Lipase Procalcitonin TSH Free T4 Free T3 Urine Color Urine Appearance Urine pH Ur Specific [place] Urine Protein Urine Glucose (UA) Urine Ketones Urine Blood Urine Nitrite Ur Leukocyte Esterase Urine RBC Urine WBC Ur Squamous Epith Cells Urine Bacteria Hyaline Casts Nasal Screen MRSA (PCR) Nasal S. aureus Screen Nasal MRSA/S.aureus Interp Vancomycin Trough 13.4 Random Vancomycin Influenza Type A (PCR) Influenza Type B (PCR) RSV RNA Qual (PCR) SARS-CoV-2 RNA (RT-PCR) Blood Type A Positive Antibody Screen NEGATIVE Crossmatch See Detail 12/17/24 12/17/24 12/17/24 05:12 05:15 05:24 WBC 18.3 H RBC 3.82 L D Hgb 10.1 L Hct 30.1 L MCV 78.8 L MCH 26.4 L MCHC 33.6 RDW 18.9 H Plt Count 427 H D MPV 11.5 Immature Gran % (Auto) 0.6 H Neut % (Auto) 82.8 H Lymph % (Auto) 4.5 L [place] % (Auto) 11.5 H Eos % (Auto) 0.3 Baso % (Auto) 0.3 Lymph # (Auto) 0.8 L [place] # (Auto) 2.1 H Eos # (Auto) 0.1 Baso # (Auto) 0.1 Abs Immat Gran (auto) 0.11 H Absolute Neuts (auto) 15.2 H Absolute Nucleated RBC 0.000 Nucleated RBC % (auto) 0.0 Neutrophils % (Manual) Band Neutrophils % Monocytes % (Manual) Basophils % (Manual) Abs Neuts (Manual) Monocytes # (Manual) Basophils # (Manual) Toxic Vacuolation Platelet Estimate Large Platelets Plt Morphology Comment RBC Morphology Microcytosis Smear Tech's Comments VERIFIED Smear Path Review PT INR O2 Saturation ABG pH at Pt Temp ABG pCO2 at Pt Temp ABG pO2 at Pt Temp ABG HCO3 ABG Base Excess (Actual) VBG pH 7.53 H VBG pCO2 34 VBG pO2 69 VBG HCO3 29 H VBG O2 Saturation 93.0 VBG Base Excess 6.7 Sodium 142 Potassium 3.1 L Chloride 105 Carbon Dioxide 26 Anion Gap 14 BUN 11 Creatinine 0.63 Estim Creat Clear Calc 155.8 Estimated GFR > 60 POC Glucose Random Glucose 80 Lactic Acid Calcium 9.5 D Phosphorus 3.2 Magnesium 2.0 Total Bilirubin 0.5 AST 54 H ALT 70 H Alkaline Phosphatase 77 Troponin I High Sens B-Natriuretic Peptide Total Protein 8.1 H Albumin 3.5 Lipase Procalcitonin TSH Free T4 Free T3 Urine Color Urine Appearance Urine pH Ur Specific [place] Urine Protein Urine Glucose (UA) Urine Ketones Urine Blood Urine Nitrite Ur Leukocyte Esterase Urine RBC Urine WBC Ur Squamous Epith Cells Urine Bacteria Hyaline Casts Nasal Screen MRSA (PCR) Nasal S. aureus Screen Nasal MRSA/S.aureus Interp Vancomycin Trough Random Vancomycin Influenza Type A (PCR) Influenza Type B (PCR) RSV RNA Qual (PCR) SARS-CoV-2 RNA (RT-PCR) Blood Type Antibody Screen Crossmatch Narrative Narrative: Patient in ICU. Intubated. Ventilated. ETT 7.5. 23cm [facility]. AC Fi02 0.4 Vt 420ml RR 18 PEEP 8cmH20. Propofol and fentanyl for sedation. Patient awake and responds by blinking to conversations. VSS Airway Heart: RRR Lungs: ? crackles Assessment and Plan Assessment Anesthesia Assessment: Anesthesia Plan Discussed (Plan discussed with patient's HCP and patient. Consent obtained) and Chart Reviewed Final Anesthetic Review Family History of Problems with Anesthesia: No History of Problems with Anesthesia: No NPO: Yes ASA Class: IV and Emergency Final Preanesthetic Review: No Changes in Pt Med Stat (Patient with aspirations and inability to clear secretions needing tracheostomy for airway protection and pulmonary toileting), Meds/Allgs Chart Reviewed, Consent Obtained/Reviewed and Anes Risks/Benef Reviewed Patient Risk: High Procedure Risk: Intermediate Assessment/Block/Sedation in SS: Assess/Block/Sedation-SS Anesthetic Plan Anesthetic Plan: GA Disposition: Inp. Admit - ICU
--- NOTE | 2024-12-17 11:32 | W.PM.CCHP ---
Procedures Date of Service Date of Service: 12/17/24 Intubation Consent for Procedure: Elective - informed consent obtained Time out performed: Yes Sedative: etomidate Mg given: 20 Paralytic: succinylcholine Mg given: 100 Laryngoscope: fiber optic video scope ET tube size: 7.5 ET tube uncuffed: Yes Tube secured depth (cm): 25 Tube secured location: teeth Tube placement confirmation: visualized tube passing through cords Patient tolerated procedure: well Intubation complications: none
--- NOTE | 2024-12-17 11:33 | W.PM.CCHP ---
Procedures Date of Service Date of Service: 12/17/24 Bronchoscopy Bronchoscopy Comments: patient had atelectasis of left lung needing 100% oxygen Consent for Procedure: Emergent-no informed consent obtained Indication: atelectasis and pulmonary toilet Procedure: Bronchoscope was lubricated with lidocaine gel, passed through the ET tube Route: endotracheal tube Sedation/Analgesia: fentanyl Monitor: EKG and pulse oximetry Findings: Airway in the right lung looked okay with minimal secretions, thick white secretions were noted to block the left main difficult to aspirate which was irrigated and later suctioned. All of the left segmental and subsegmental bronchi had dense thick secretions that was lavaged and sample sent to lab Complications: none
--- NOTE | 2024-12-17 11:43 | PC.RT ---
Rt called this am, pt desaturation requiring supplemental O@ increse. Placed on oxy mask @ 15 lpm, 88%. RT auscaltated corse rhonchi, pt has diff managing sec. Pt ref nasal sxn and oral sxn. HFNC att, pt refused. Placed on NRB @ 15 lpm, spo2 92%. MD in to assess, pt intubated and placed on mechanical ventilation. RT assist MD with bedside bronchocsopy. Pt placed on 100% fio2 previous. Pt was bronched for copious thick yellow secretions, a sample was obtained and sent. Post bronch pt titrated to 40% fio2 and on OR schedule for trach placement today.
--- NOTE | 2024-12-17 13:57 | MHC.CM.PN ---
Pt remains in ICU: scheduled for trach placement today- HCP and other family aware and in agreement w/plan. Pt will be referred to [facility] per CM discussion w/family on 12/16 for management of post acute medical needs before returning to home with ZYGL[employer] TECHNICIAN and family care. CM to updated [facility] on Friday w/OP report
--- NOTE | 2024-12-17 14:16 | P.OP_ITS ---
Operative Note Operative Note Date of Service: 12/17/24 Narrative: Preoperative diagnosis: [] Respiratory failure, copious secretions unable to clear, advanced MS Postop diagnosis: [] The same Procedure [] open tracheostomy Surgeon: [] Antonino Promotions Intern: [] Evelin Type of Anesthesia: [] General Indication for surgery: [] 8. Shiley per respiratory recommendation Findings: [] Patient brought to the operating room intubated, placed on operative table supine position, after an adequate level of general anesthesia was induced, patient was appropriately positioned with a shoulder roll and neck extended. Neck and chest area were prepped and draped in usual sterile fashion. Using a transverse incision approximately 1 fingerbreadth above the sternal notch, this carried down through skin, subcutaneous tissue, and cervical fascia. Linea cervicalis was opened and strap muscles were retracted laterally. Isthmus thyroid was also transected to allow exposure to the trachea. In coordination with the anesthesia, a transverse tracheotomy was made between the 2nd and 3rd rings with concurrent withdrawal of the ETT just above this.# 8. Shiley was uneventfully advanced into the distal trachea. Balloon inflated, connected to anesthesia circuit, were end-tidal CO2, O2 saturations, and chest wall movement were all confirmed and very satisfactory. Wound was irrigated, secured hemostasis, and closed in the following manner; skin incision on either side of the trachea was reapproximated using interrupted inverted dermal 3-0 Vicryl sutures. Flange on either side of the trachea was secured to the skin using interrupted 2-0 silk sutures. Velcro strap was also placed and secured. Sponge, needle, and instrument counts reported correct. Patient tolerated the procedure well and emerged from anesthesia stable condition, and transferred directly to the ICU. EBL minimal. Postprocedure chest x-ray pending..
[2024-12-17] MEDS: Chlorhexidine Gluc Oral Rinse 15 ML MOUTHWASH BUCCAL ×2 (15:08→20:29)
[2024-12-17] MEDS: propofoL 1,000 MG/100 ML VIAL 17.62 MG IVCONT ×2 (15:30→21:14)
[2024-12-17 16:49] LABS: Vancomycin Trough 16.2 mcg/mL (10.0-20.0)
[2024-12-17] MEDS: vancomycin HCL 1,500 MG in 0.9 % Sodium Chloride 500 ML 333.3 MG IV (18:38)
--- NOTE | 2024-12-17 19:21 | PC.NURSE ---
Assume care of pt @ 0700. Patient initially? A&O, but Restless Precedex gtt initiated per DEC.? Now Sedated following intubation, on propofol, fentanyl, per DEC. Approx. @ 0800 pt satting in low 80?s on 6L ricks [place], transition to Oxy savage titrated to 15L with some improvement with Sats in high 80?s, transition to Nonreabrether mask satting 92%. Hydromorpine given for WOB per DEC,? RT and Dr. Gallardo at bedside. Pt intubated @ 10:30, Bronchoscopy performed by Dr. Gallardo.? Approx. @1300 went to OR , now? S/P tracheostomy on ventilatory support.? SR-ST, HR? up to 140?S with improvement after intubation 110?s. 1L Normal saline given per DEC.? Suprapubic cath? patent/draining,? ?LBM 12/10 , soft abdomen,? +bowel sounds, PEG tube in place,? tubefeeds restarted tolerating without signs of intolerance.? ?Stage 2 coccyx (foam dgs/triad applied). (repositioning maintained) (Passive ROM performed) ?Peripheral IVs in place.
[2024-12-17] MEDS: Sulfamethox/Trimeth 800/160 TABLET 1 TAB PO (20:30)
[2024-12-17] MEDS: Sennosides 8.6 MG TABLET 17.2 MG G-TUBE (20:30)
[2024-12-18] VITALS (30 sets, daily range): BP systolic 109–136; BP diastolic 62–80; PULSE 84–128; RESP 13–30; TEMP 34.9–37.7; O2SAT 92–100
[2024-12-18] MEDS: 0.9 % Sodium Chloride Flush 3 ML SYRINGE IVFLUSH ×3 (01:20→15:52)
[2024-12-18] MEDS: propofoL 1,000 MG/100 ML VIAL 13.21 MG IVCONT (02:42)
[2024-12-18] MEDS: Piperacillin Sodium/Tazobactam 3.375 GM in 0.9 % Sodium Chloride 50 ML IV ×4 (04:17→21:27)
[2024-12-18 04:47] LABS: VBG Base Excess 3.8 mmol/L; VBG HCO3 26 mmol/L (22-26); VBG pCO2 31 mmHg; VBG pH 7.52 (7.32-7.43); VBG pO2 74 mmHg
[2024-12-18 04:54] LABS: Basophils Absolute Auto 0.1 X10*3/uL (0.0-0.2); Basophils Percent Auto 0.3 % (0-2); Eosinophils Absolute Auto 0.2 X10*3/uL (0.0-0.4); Eosinophils Percent Auto 1.1 % (0-4); Hematocrit 24.7 % (42.0-52.0); Hemoglobin 8.1 g/dl (14.0-18.0); Imm Gran Abs Auto 0.11 X10*3/uL (0.00-0.03); Imm Gran Pct Auto 0.6 % (0.0-0.4); Lymphocytes Percent Auto 5.3 % (20-40); MANUAL DIFF FLAG SCAN; Mean Corpuscular HGB Conc 32.8 g/dl (31.0-36.0); Mean Corpuscular Hemoglobin 25.6 pg (27.0-33.0); Mean Corpuscular Volume 77.9 fL (80.0-98.0); Mean Platelet Volume 10.8 fL (9.4-12.4); Neutrophils Absolute Auto 16.1 x10*3/uL (2.0-8.3); Neutrophils Percent Auto 82.7 % (45-73); Platelet Count 343 X10*3/uL (160-400); Red Blood Count 3.17 X10*6/uL (4.60-5.80); Red Cell Distribution Width 18.6 % (11.0-16.0); SCAN SMEAR FLAG 1; White Blood Count 19.5 X10*3/uL (4.8-10.8)
[2024-12-18 04:54] LABS: Venous Blood Gas Refer to POC result
[2024-12-18 05:13] LABS: Alanine Aminotransferase 60 U/L (0-40); Albumin Level 3.3 g/dL (3.5-5.0); Alkaline Phosphatase 75 U/L (39-117); Anion Gap 13 (12-20); Aspartate Amino Transferase 61 U/L (5-37); Bilirubin Total 0.8 mg/dL (0.0-1.0); Blood Urea Nitrogen 13 mg/dL (9-16); Calcium 8.9 mg/dL (8.4-10.2); Carbon Dioxide 23 mmol/L (22-29); Chloride 110 mmol/L (96-108); Creatinine Clr Calc Pharmacy 155.8; Estimated Glomerular Filt Rate > 60; Glucose Random 99 mg/dL (60-115); Phosphorus 3.7 mg/dL (2.7-4.5); Potassium 3.2 mmol/L (3.3-5.1); Sodium 143 mmol/L (135-145)
[2024-12-18 05:22] LABS: SLIDE REVIEW VERIFIED
[2024-12-18] MEDS: vancomycin HCL 1,500 MG in 0.9 % Sodium Chloride 500 ML 333.3 MG IV (05:46)
[2024-12-18] MEDS: Sertraline HCL 50 MG TABLET G-TUBE (08:26)
[2024-12-18] MEDS: predniSONE 20 MG TABLET PO (08:26)
[2024-12-18] MEDS: Cholecalciferol (Vitamin D3) 25 MCG TABLET 50 MCG G-TUBE (08:26)
[2024-12-18] MEDS: Potassium Chloride Packet 20 MEQ PACKET 40 MEQ PO (08:26)
[2024-12-18] MEDS: Chlorhexidine Gluc Oral Rinse 15 ML MOUTHWASH BUCCAL ×3 (08:26→21:13)
[2024-12-18] MEDS: Cyclobenzaprine HCl 10 MG TABLET G-TUBE ×3 (08:26→21:14)
[2024-12-18] MEDS: fentaNYL citrate/NS 1,000 MCG/100 ML PLAST..BAG 2.5 MCG IVCONT (11:18)
[2024-12-18] MEDS: Sulfamethox/Trimeth 800/160 TABLET 1 TAB PO ×2 (11:19→21:14)
--- NOTE | 2024-12-18 13:19 | HO.POSTANES ---
Post Anesthesia Evaluation Post Anesthesia Evaluation Date of Service: 12/18/24 Vital Signs: Vital Signs Temp Pulse Resp BP Pulse Ox O2 Del Method FiO2 12/18/24 10:56 122 H 28 H 126/76 97 Mechanical Ventilation 50 12/18/24 09:50 119 H 26 H 120/75 92 Mechanical Ventilation 50 12/18/24 09:00 115 H 20 121/78 96 Mechanical Ventilation 50 12/18/24 08:00 95 50 12/18/24 07:55 98.3 F 120 H 18 119/70 97 Mechanical Ventilation 50 12/18/24 07:39 50 12/18/24 07:00 117 H 18 114/67 99 Mechanical Ventilation 50 12/18/24 05:54 122 H 18 113/65 97 Mechanical Ventilation 50 12/18/24 05:03 50 12/18/24 04:52 127 H 23 H 128/62 100 Mechanical Ventilation 50 12/18/24 04:14 100 50 12/18/24 03:35 99.8 F 126 H 23 H 124/74 100 Mechanical Ventilation 50 12/18/24 02:49 124 H 30 H 121/80 99 Mechanical Ventilation 50 12/18/24 01:49 125 H 18 119/67 98 Mechanical Ventilation 50 12/18/24 01:25 50 12/18/24 01:22 97 50 Anesthesia: General Endotracheal-GETA Mental Status: Awake Pain Control: Satisfactory Nausea/Vomiting: None Hydration: Adequate Anesthesia-Related Issues: No Anes. Related Issues
--- NOTE | 2024-12-18 13:39 | P.PNCC_ITS ---
Subjective Subjective Date of Service: 12/18/24 Critical Care Time (minutes): 35 Comment: Underwent tracheostomy placement yesterday, procedure and full was on ventilator all night, switch to trach collar this morning Physical Exam 2 Vital Signs: Vital Signs: Last Vital Signs Temp 98.5 F 12/18/24 12:00 Pulse 110 H 12/18/24 13:00 Resp 21 H 12/18/24 13:00 BP 122/74 12/18/24 13:00 Pulse Ox 96 12/18/24 13:00 O2 Del Method Mechanical Ventil ation 12/18/24 13:00 O2 Flow Rate 15 12/17/24 13:00 FiO2 50 12/18/24 13:00 Oxygen Flow Rate 6 12/02/24 12:11 BMI result Body Mass Index 23.9 General: Not in acute distress, ill appearing and tired appearing Nutritional Appearance: well nourished and overweight Eyes: appearance normal, both eyes and all related structures; Alignment and Position: alignment normal and position normal Neck: No lymphadenopathy, no thyromegaly, tracheostomy site looks okay Resp: bilateral air entry equal, occasional added sounds present Cardio: Regular rate, regular rhythm; Heart sounds: S1 normal heart sound present and S2 normal heart sound present GI: soft, nontender, no guarding, no hepatosplenomegaly : bladder normal to inspection, bladder normal to palpation, no renal angle tenderness Skin: no rashes or lesions noted and elasticity normal Neuro: oriented to person, oriented to place Objective Data Labs 12/18/24 04:32 12/18/24 04:32 Labs: Laboratory Results - last 24 hr 12/17/24 12/18/24 12/18/24 16:10 04:32 04:43 WBC 19.5 H RBC 3.17 L Hgb 8.1 L Hct 24.7 L MCV 77.9 L MCH 25.6 L MCHC 32.8 RDW 18.6 H Plt Count 343 MPV 10.8 Immature Gran % (Auto) 0.6 H Neut % (Auto) 82.7 H Lymph % (Auto) 5.3 L [place] % (Auto) 10.0 Eos % (Auto) 1.1 Baso % (Auto) 0.3 Lymph # (Auto) 1.0 L [place] # (Auto) 2.0 H Eos # (Auto) 0.2 Baso # (Auto) 0.1 Abs Immat Gran (auto) 0.11 H Absolute Neuts (auto) 16.1 H Absolute Nucleated RBC 0.000 Nucleated RBC % (auto) 0.0 Smear Tech's Comments VERIFIED VBG pH 7.52 H VBG pCO2 31 VBG pO2 74 VBG HCO3 26 VBG O2 Saturation 97.0 VBG Base Excess 3.8 Sodium 143 Potassium 3.2 L Chloride 110 H Carbon Dioxide 23 Anion Gap 13 BUN 13 Creatinine 0.63 Estim Creat Clear Calc 155.8 Estimated GFR > 60 Random Glucose 99 Calcium 8.9 D Phosphorus 3.7 Magnesium 2.0 Total Bilirubin 0.8 AST 61 H ALT 60 H Alkaline Phosphatase 75 Total Protein 7.0 Albumin 3.3 L Vancomycin Trough 16.2 Microbiology Microbiology Results: Microbiology 12/15/24 14:07 Urine Catheterized - Villatoro Catheter Urine Culture - Preliminary Yeast 12/17/24 11:40 Bronchial Washings Gram Stain - Final 12/17/24 11:40 Bronchial Washings - Preliminary Culture in progress. 12/15/24 10:30 Sputum - Suctioned Gram Stain - Final 12/15/24 10:30 Sputum - Suctioned Sputum Culture - Final 12/15/24 04:37 Blood - Venous Blood Culture - Preliminary No growth after 48 hours. 12/15/24 04:37 Blood - Venous Blood Culture - Preliminary No growth after 48 hours. 12/02/24 12:46 Blood - Venous Blood Culture - Final No growth after 5 days. 12/02/24 12:46 Blood - Venous Blood Culture - Final No growth after 5 days. 12/02/24 17:23 Urine Catheterized - Villatoro Catheter Urine Culture - Final Enterobacter cloacae complex Progress Note: A&P Assessment and plan (1) Pneumonia: Status: Acute (2) Aspiration pneumonia: Status: Acute (3) Low TSH level: Status: Acute (4) Copious oral secretions: Status: Acute Plan Neuro: Acute encephalopathy has improved, following commands He has history of multiple sclerosis/neuromyelitis optica because of which he has paraplegia wheel chair bound, a chronic indwelling catheter and a PEG tube. He received IVIG, followed by oral steroids and Rituxan in November Cardiac: Tachycardia: Sinus tach, anxiety related we will treat him Dilaudid one episode of SVT this afternoon lasted less than a minute, will start on metoprolol 12.5mg BID Respiratory: Acute on chronic hypoxemic respiratory failure: Has underlying significant neurological disorder because of which he can not clear the secretions, acute respiratory failure is secondary to aspiration pneumonia. Underwent tracheostomy tube placement yesterday, tolerated the procedure well. Remained on ventilator overnight, switch to pressor support this morning and currently on trach collar tolerating well. We will leave him on trach collar as long as he can tolerate GI: on tube feeds Renal: Baseline creatinine normal, creatinine today is 0.59 We will closely monitor I's and O's Avoid nephrotoxic medications Heme: Acute anemia: Hemoglobin stable Received 1 PRBC transfusion Endocrine: Blood sugars under control Sliding scale insulin as needed Infectious disease: Repeat blood, bronch and urine cultures negative so far, resistant enterobacter in the urine upon admission on Zosyn for aspiration pneumonia, continue Bactrim for resistant Enterobacter UTI, repeat cultures negative. He was earlier treated with cefepime and linezolid for urinary tract infection in the setting of chronic indwelling suprapubic catheter Musculoskeletal: Decubitus ulcer prevention protocol Lines: Right IJ TLC Prophylaxis: Lovenox, pantoprazole Quality Stroke Does the patient have a stroke diagnosis?: No VTE Prior VTE?: No VTE Risk Level:: Medical - moderate - high VTE Device Contraindication: Treatment Not Indicated VTE Drug Contraindication: N/A - Med Ordered
--- NOTE | 2024-12-18 15:24 | PC.RT ---
Pt placed on trach collar this morning around 11am. Tolerated well. Initial FIO2 @ 40%, now at 60%. Pt is not tolerating suctioning well. This round, I got gabby red blood, after two passes it subsided.
[2024-12-18] MEDS: Metoprolol Tartrate 12.5 MG HALFTAB PO ×2 (15:50→21:13)
[2024-12-18 16:47] LABS: Vancomycin Random 10.3 mcg/mL (15-20)
--- NOTE | 2024-12-18 19:36 | PC.NURSE ---
N- patient alert, follows commands, traces with eyes, mouths words and nods head, propofol stopped fentanyl to remain at current rate for comfort. CV- no edema, no pressors running Pulm- transitioned to trach mask at 60% maintaining O2 sats well and no resp distress noted GI- BM noted today x2, tube feeding continues as ordered with water boluses as ordered. - chronic burciaga in place, suprapubic catheter, patent draining yellow urine Turn and repo as tolerated every 2hours to maintain skin integrity, dressing to coccyx changed, barrier cream to groin.
[2024-12-18] MEDS: Sennosides 8.6 MG TABLET 17.2 MG G-TUBE (21:14)
[2024-12-19] VITALS (16 sets, daily range): BP systolic 112–137; BP diastolic 57–86; PULSE 96–120; RESP 18–31; TEMP 36.2–37.4; O2SAT 91–97
[2024-12-19 04:33] LABS: VBG Base Excess 4.9 mmol/L; VBG HCO3 27 mmol/L (22-26); VBG pCO2 33 mmHg; VBG pH 7.52 (7.32-7.43); VBG pO2 79 mmHg
[2024-12-19] MEDS: Piperacillin Sodium/Tazobactam 3.375 GM in 0.9 % Sodium Chloride 50 ML IV ×4 (04:36→21:51)
[2024-12-19 04:40] LABS: Venous Blood Gas Refer to POC result
[2024-12-19 04:41] LABS: Basophils Percent Auto 0.2 % (0-2); Eosinophils Absolute Auto 0.2 X10*3/uL (0.0-0.4); Eosinophils Percent Auto 0.9 % (0-4); Hemoglobin 8.2 g/dl (14.0-18.0); Imm Gran Pct Auto 0.5 % (0.0-0.4); Lymphocytes Percent Auto 5.4 % (20-40); MANUAL DIFF FLAG SCAN; Mean Corpuscular HGB Conc 32.8 g/dl (31.0-36.0); Mean Corpuscular Hemoglobin 25.3 pg (27.0-33.0); Mean Corpuscular Volume 77.2 fL (80.0-98.0); Mean Platelet Volume 10.5 fL (9.4-12.4); Monocytes Absolute Auto 1.8 X10*3/uL (0.1-1.2); Monocytes Percent Auto 9.8 % (2-11); Neutrophils Absolute Auto 15.5 x10*3/uL (2.0-8.3); Neutrophils Percent Auto 83.2 % (45-73); Platelet Count 383 X10*3/uL (160-400); Red Blood Count 3.24 X10*6/uL (4.60-5.80); Red Cell Distribution Width 18.5 % (11.0-16.0); SCAN SMEAR FLAG 1; White Blood Count 18.7 X10*3/uL (4.8-10.8)
[2024-12-19 04:52] LABS: Alanine Aminotransferase 89 U/L (0-40); Albumin Level 3.2 g/dL (3.5-5.0); Alkaline Phosphatase 77 U/L (39-117); Anion Gap 12 (12-20); Aspartate Amino Transferase 73 U/L (5-37); Bilirubin Total 0.5 mg/dL (0.0-1.0); Blood Urea Nitrogen 15 mg/dL (9-16); Calcium 8.8 mg/dL (8.4-10.2); Carbon Dioxide 24 mmol/L (22-29); Chloride 111 mmol/L (96-108); Creatinine Clr Calc Pharmacy 178.5; Estimated Glomerular Filt Rate > 60; Glucose Random 122 mg/dL (60-115); Sodium 143 mmol/L (135-145); Total Protein 7.1 g/dL (6.5-8.0)
[2024-12-19 05:01] LABS: SLIDE REVIEW VERIFIED
--- NOTE | 2024-12-19 06:40 | PC.NURSE ---
Upon initial assessment at 1999- pt alert, nods yes/no appropriately, follows simple commands, attempts to mouth words to communicate, PMV not yet applied. Afebrile. Sinus tach on tele, HR 100-110s. BP WNL. Tolerating trach collar, weaned down to 5L/28%, SpO2 > 92%- see trach assessment. TF infusing at goal, no s/s of intolerance. Suprapubic catheter in place- UOP as charted. No new skin integrity concerns. Repositioned in bed q2hr with wedges/pillows, alarm on. See EMR/flowsheet for further details.
[2024-12-19] MEDS: Metoprolol Tartrate 12.5 MG HALFTAB PO ×2 (08:39→21:36)
[2024-12-19] MEDS: Chlorhexidine Gluc Oral Rinse 15 ML MOUTHWASH BUCCAL ×3 (08:39→21:55)
[2024-12-19] MEDS: Cyclobenzaprine HCl 10 MG TABLET G-TUBE ×3 (08:39→21:27)
[2024-12-19] MEDS: Cholecalciferol (Vitamin D3) 25 MCG TABLET 50 MCG G-TUBE (08:40)
[2024-12-19] MEDS: predniSONE 20 MG TABLET PO (08:40)
[2024-12-19] MEDS: Sertraline HCL 50 MG TABLET G-TUBE (08:40)
[2024-12-19] MEDS: 0.9 % Sodium Chloride Flush 3 ML SYRINGE IVFLUSH ×3 (08:55→21:29)
[2024-12-19] MEDS: Sulfamethox/Trimeth 800/160 TABLET 1 TAB PO ×2 (08:55→21:27)
--- NOTE | 2024-12-19 10:26 | PM.CCPN ---
Subjective Subjective Date of Service: 12/19/24 Critical Care Time (minutes): 35 Comment: Remained off ventilator overnight, on a trach mask, oxygen requirement decreasing Physical Exam Vital Signs: Vital Signs: Last Vital Signs Temp 98.0 F 12/19/24 04:00 Pulse 115 H 12/19/24 07:00 Resp 29 H 12/19/24 07:00 BP 124/74 12/19/24 07:00 Pulse Ox 93 12/19/24 07:00 O2 Del Method Trach Collar 12/19/24 07:00 O2 Flow Rate 5 12/19/24 07:00 FiO2 28 12/19/24 07:00 Oxygen Flow Rate 6 12/02/24 12:11 BMI result Body Mass Index 23.9 General: Young male lying in the bed, looking around in mild distress Nutritional Appearance: well nourished and overweight Eyes: appearance normal, both eyes and all related structures; Alignment and Position: alignment normal and position normal Neck: No lymphadenopathy, no thyromegaly Resp: bilateral air entry equal, occasional added sounds present Cardio: Regular rate, regular rhythm; Heart sounds: S1 normal heart sound present and S2 normal heart sound present GI: soft, nontender, no guarding, no hepatosplenomegaly : bladder normal to inspection, bladder normal to palpation, no renal angle tenderness Skin: no rashes or lesions noted and elasticity normal Neuro: oriented to person, oriented to place, oriented to time spastic 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 Objective Data Labs 12/19/24 04:24 12/19/24 04:24 Labs: Laboratory Results - last 24 hr 12/18/24 12/19/24 12/19/24 16:09 04:24 04:27 WBC 18.7 H RBC 3.24 L Hgb 8.2 L Hct 25.0 L MCV 77.2 L MCH 25.3 L MCHC 32.8 RDW 18.5 H Plt Count 383 MPV 10.5 Immature Gran % (Auto) 0.5 H Neut % (Auto) 83.2 H Lymph % (Auto) 5.4 L [place] % (Auto) 9.8 Eos % (Auto) 0.9 Baso % (Auto) 0.2 Lymph # (Auto) 1.0 L [place] # (Auto) 1.8 H Eos # (Auto) 0.2 Baso # (Auto) 0.0 Abs Immat Gran (auto) 0.10 H Absolute Neuts (auto) 15.5 H Absolute Nucleated RBC 0.000 Nucleated RBC % (auto) 0.0 Smear Tech's Comments VERIFIED VBG pH 7.52 H VBG pCO2 33 VBG pO2 79 VBG HCO3 27 H VBG O2 Saturation 99.0 VBG Base Excess 4.9 Sodium 143 Potassium 4.0 D Chloride 111 H Carbon Dioxide 24 Anion Gap 12 BUN 15 Creatinine 0.55 Estim Creat Clear Calc 178.5 Estimated GFR > 60 Random Glucose 122 H Calcium 8.8 Total Bilirubin 0.5 AST 73 H ALT 89 H Alkaline Phosphatase 77 Total Protein 7.1 Albumin 3.2 L Random Vancomycin 10.3 L Microbiology Microbiology Results: Microbiology 12/15/24 14:07 Urine Catheterized - Villatoro Catheter Urine Culture - Final Trichosporon asahii 12/17/24 11:40 Bronchial Washings Gram Stain - Final 12/17/24 11:40 Bronchial Washings - Preliminary Culture in progress. 12/15/24 10:30 Sputum - Suctioned Gram Stain - Final 12/15/24 10:30 Sputum - Suctioned Sputum Culture - Final 12/15/24 04:37 Blood - Venous Blood Culture - Preliminary No growth after 48 hours. 12/15/24 04:37 Blood - Venous Blood Culture - Preliminary No growth after 48 hours. 12/02/24 12:46 Blood - Venous Blood Culture - Final No growth after 5 days. 12/02/24 12:46 Blood - Venous Blood Culture - Final No growth after 5 days. 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 He received IVIG, followed by oral steroids and Rituxan in November Cardiac: Tachycardia: Sinus tach, anxiety related we will treat him Dilaudid one episode of SVT this afternoon lasted less than a minute, continue metoprolol 12.5mg BID Respiratory: Acute on chronic hypoxemic respiratory failure: Has underlying significant neurological disorder because of which he can not clear the secretions, acute respiratory failure is secondary to aspiration pneumonia. Underwent tracheostomy tube placement on 12/17/2024, tolerated the procedure well. on trach collar since yesterday morning, weaning oxygen requirements. GI: on tube feeds Renal: Baseline creatinine normal, creatinine today is 0.59 We will closely monitor I's and O's Avoid nephrotoxic medications Heme: Acute anemia: Hemoglobin stable Received 1 PRBC transfusion Endocrine: Blood sugars under control Sliding scale insulin as needed Infectious disease: Repeat blood, bronch and urine cultures negative so far, resistant enterobacter in the urine upon admission on Zosyn for aspiration pneumonia, continue Bactrim for resistant Enterobacter UTI, repeat cultures negative. He was earlier treated with cefepime and linezolid for urinary tract infection in the setting of chronic indwelling suprapubic catheter Musculoskeletal: Decubitus ulcer prevention protocol Lines: Right IJ TLC Prophylaxis: Lovenox, pantoprazole Quality Stroke Does the patient have a stroke diagnosis?: No VTE Prior VTE?: No VTE Risk Level:: Medical - moderate - high VTE Device Contraindication: Treatment Not Indicated VTE Drug Contraindication: N/A - Med Ordered
[2024-12-19] MEDS: Furosemide 40 MG/4 ML VIAL IVPUSH (13:33)
[2024-12-19] MEDS: Acetaminophen 325 MG TABLET 650 MG G-TUBE (18:29)
--- NOTE | 2024-12-19 19:43 | PC.NURSE ---
N- patient alert, follows commands, traces with eyes, mouths words and nods head, not sedated? CV- no edema, no pressors running Pulm- transitioned to trach mask at 28% maintaining O2 sats well and no resp distress noted GI- tube feeding continues as ordered with water boluses as ordered. Requested tube feed off for one hour then didn?t remember why he asked to stop tubefeeds. - chronic burciaga in place, suprapubic catheter, patent draining yellow urine Turn and repo as tolerated every 2hours to maintain skin integrity, refusing at times, dressing to coccyx changed, barrier cream to groin.
--- NOTE | 2024-12-19 19:44 | PC.NURSE ---
N-patient alert and oriented x4, denied pain or discomfort at rest. ? discomfort to right arm with movement.? CV- right neck wound continues oozing blood all shift, dressing changed multiple times this shift. One unit of RBC?s completed this shift Pulm- updrafts given as order, wheezing continues, fine crackles to bases, O2 sat >90 with good pleth.?? GI- small bm noted, using bedpan small soft? light brown stool noted, tolerating diet well - external purewick in place, draining clear yellow urine.?
[2024-12-19] MEDS: Enoxaparin Sodium 40 MG/0.4 ML SYRINGE SUBCUT (21:26)
[2024-12-19] MEDS: Sennosides 8.6 MG TABLET 17.2 MG G-TUBE (21:27)
[2024-12-20] VITALS: BP 119/69; PULSE 123; RESP 20; TEMP 36.5; O2SAT 94
[2024-12-20] MEDS: Acetaminophen 325 MG TABLET 650 MG G-TUBE ×2 (03:04→21:55)
[2024-12-20 03:32] VITALS: BP 106/64; PULSE 128; RESP 20; TEMP 36.5; O2SAT 96
[2024-12-20] MEDS: LORazepam 2 MG/ML VIAL 0.5 MG IVPUSH ×2 (03:59→21:51)
[2024-12-20] MEDS: Piperacillin Sodium/Tazobactam 3.375 GM in 0.9 % Sodium Chloride 50 ML IV ×4 (05:40→21:53)
[2024-12-20 05:56] LABS: Magnesium 2.1 mg/dL (1.6-2.6); Phosphorus 4.1 mg/dL (2.7-4.5)
[2024-12-20 07:58] VITALS: BP 122/75; PULSE 110; RESP 19; TEMP 36.8; O2SAT 96
--- NOTE | 2024-12-20 09:04 | MHC.CM.PN ---
EMR REVIEWED, PT S/P MECH VENT AND TRACH PLACEMENT, PER PREVIOUS CM FAMILY AWARE PT'S ONLY PLACEMENT OPTION FOR TRACH'S IS CURRENTLY [facility] ([place] [facility]), OPERATIVE NOTE AND UPDATES SENT IN LTACH REFERRAL, CM WILL CONT TO FOLLOW DC NEEDS.
[2024-12-20 11:54] VITALS: BP 127/75; PULSE 116; RESP 19; TEMP 36.4; O2SAT 97
[2024-12-20] MEDS: Cyclobenzaprine HCl 10 MG TABLET G-TUBE ×3 (11:56→21:40)
[2024-12-20] MEDS: predniSONE 20 MG TABLET PO (11:56)
[2024-12-20] MEDS: Cholecalciferol (Vitamin D3) 25 MCG TABLET 50 MCG G-TUBE (11:57)
[2024-12-20] MEDS: Sulfamethox/Trimeth 800/160 TABLET 1 TAB PO (11:57)
[2024-12-20] MEDS: Sertraline HCL 50 MG TABLET G-TUBE (11:57)
[2024-12-20] MEDS: Metoprolol Tartrate 12.5 MG HALFTAB PO ×2 (11:57→21:40)
[2024-12-20] MEDS: Chlorhexidine Gluc Oral Rinse 15 ML MOUTHWASH BUCCAL ×3 (12:46→22:00)
[2024-12-20] MEDS: 0.9 % Sodium Chloride Flush 3 ML SYRINGE IVFLUSH ×3 (12:46→22:02)
--- NOTE | 2024-12-20 13:22 | MHC.CLN ---
F/U PT IS S/P TRACH PT RECEIVING PROMOTE AT MAX GOAL RATE 70ML/HR WITH 240ML FREE WATER FLUSHES Q 8 HRS PROVIDES 1680KCALS (2261KCALS WITH SEDATION; 31KCALS/KG), 105G PROTEIN (1.5G/KG), 2129ML TOTAL WATER FROM FORMULA AND FLUSHES (29ML/KG) TF WILL PROMOTE WOUND HEALING CONTINUE TO MONITOR TOLERANCE AND LYTES
[2024-12-20 16:00] VITALS: BP 123/75; PULSE 118; RESP 18; TEMP 36.7; O2SAT 93
--- NOTE | 2024-12-20 16:47 | P.PNIM_ITS ---
Subjective Subjective Date of Service: 12/20/24 Interval History: Underwent trach placement in ICU on 12/17 underwent bronchoscopy Patient unable to communicate due to trach, noted to have thick secretions /requiring suctioning through trach Tolerating G-tube feeds Uneventful night Review of Systems Unable to obtain due to trach Physical Exam 2 Vital Signs: Vital Signs: Last Vital Signs Temp 98.0 F 12/20/24 16:00 Pulse 118 H 12/20/24 16:00 Resp 18 12/20/24 16:00 BP 123/75 12/20/24 16:00 Pulse Ox 93 12/20/24 16:00 O2 Del Method Room Air 12/20/24 16:00 O2 Flow Rate 5 12/20/24 00:00 FiO2 28 12/20/24 03:32 Oxygen Flow Rate 6 12/02/24 12:11 BMI result Body Mass Index 23.9 Const: Other: Gen: quadriparesis , no respiratory distress Neck: Trach collar in place Lungs: diminished, rhonchi Heart: regular rate and rhythm, no murmurs Abd: soft, non-tender, non-distended, peg in place, no surrounding erythema : suprapubic catheter, clear urine Ext: no edema Skin: warm/well-perfused Neuro: quadraparesis,. Objective Data Active Medications Acetaminophen (Acetaminophen 325 Mg Tablet) 650 mg G-TUBE Q6H PRN PRN Reason: Pain, Mild 1-3,fever,headache Last Admin: 12/20/24 03:04 Dose: 650 mg Documented By: SAVANNA Chlorhexidine Gluconate (Chlorhexidine Gluc Oral Rinse 15 Ml Mouthwash) 15 ml BUCCAL TID [facility] Last Admin: 12/20/24 12:46 Dose: 15 ml Documented By: ANAM Cyclobenzaprine HCl (Cyclobenzaprine Hcl 10 Mg Tablet) 10 mg G-TUBE TID [facility] Last Admin: 12/20/24 11:56 Dose: 10 mg Documented By: ANAM Enoxaparin Sodium (Enoxaparin Sodium 40 Mg/0.4 Ml Syringe) 40 mg SUBCUT Q24H [facility] Last Admin: 12/19/24 21:26 Dose: 40 mg Documented By: SVAANNA Glycopyrrolate (Glycopyrrolate 0.2 Mg/Ml Vial) 0.1 mg IVPUSH Q4H PRN PRN Reason: secretions Last Admin: 12/17/24 08:22 Dose: 0.1 mg Documented By: ANNA Piperacillin Sod/Tazobactam (Sod 3.375 gm/ Sodium Chloride) 50 mls @ 100 mls/hr IV Q6H [facility] Last Infusion: 12/20/24 12:51 Dose: Infused Documented By: ANAM Magnesium Hydroxide (Milk Of Magnesia 30 Ml Oral.Susp) 30 ml G-TUBE DAILY PRN PRN Reason: Constipation Metoprolol Tartrate (Metoprolol Tartrate 12.5 Mg Halftab) 12.5 mg PO BID [facility]; Protocol Last Admin: 12/20/24 11:57 Dose: 12.5 mg Documented By: ANAM Ondansetron HCl (Ondansetron Hcl 4 Mg/2 Ml Vial) 4 mg IVPUSH Q8H PRN PRN Reason: Nausea and Vomiting Prednisone (Prednisone 20 Mg Tablet) 20 mg PO DAILY [facility] Last Admin: 12/20/24 11:56 Dose: 20 mg Documented By: ANAM Senna (Sennosides 8.6 Mg Tablet) 17.2 mg G-TUBE BEDTIME [facility] Last Admin: 12/19/24 21:27 Dose: 17.2 mg Documented By: SAVANNA Sertraline HCl (Sertraline Hcl 50 Mg Tablet) 50 mg G-TUBE DAILY [facility] Last Admin: 12/20/24 11:57 Dose: 50 mg Documented By: ANAM Sodium Chloride (0.9 % Sodium Chloride Flush 3 Ml Syringe) 3 ml IVFLUSH QSHIFT [facility] Last Admin: 12/20/24 12:46 Dose: 3 ml Documented By: ANAM Trimethoprim/Sulfamethoxazole (Sulfamethox/Trimeth 800/160 Tablet) 1 tab PO Q12H [facility] Last Admin: 12/20/24 11:57 Dose: 1 tab Documented By: ANAM Vitamin D (Cholecalciferol (Vitamin D3) 25 Mcg Tablet) 50 mcg G-TUBE DAILY [facility] Last Admin: 12/20/24 11:57 Dose: 50 mcg Documented By: ANAM Labs 12/19/24 04:24 12/19/24 04:24 Labs: Laboratory Results - last 24 hr 12/20/24 05:21 Phosphorus 4.1 Magnesium 2.1 Microbiology Microbiology Results: Microbiology 12/15/24 04:37 Blood Culture - Final Blood - Venous No growth after 5 days. 12/15/24 04:37 Blood Culture - Final Blood - Venous No growth after 5 days. 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 admitted to the hospital for treatment and further evaluation of CAMRYN and sepsis in the setting of acute UTI and acute bibasilar pneumonia, status post PEG tube placement during previous hospitalization. Acute on chronic hypoxic respiratory failure, due to significant neurologic disorder unable to clear secretion with recurrent aspiration pneumonias therefore underwent tracheostomy tube placement on December 17, on trach collar Blood, bronch and urine culture negative, On IV Zosyn for aspiration pneumonia started on 12/15 will DC after 7 days . Being followed by respiratory therapy/will have trach valve so patient can communicate Episode of SVT in ICU/recurrent sinus tach started on metoprolol 12.5 b.i.d.CTA chest 12/02 showed no PE, echo 10/2024 with mildly reduced EF 50-55%, otherwise within normal limits Acute UTI with sepsis urine culture positive for enterobacter sensitive only to gentamicin and Bactrim and resistant to cefepime/blood cultures negative times 48 hours/WBC trending down Finished course of Bactrim Acute anemia: Hemoglobin stable Received 1 PRBC transfusion Dysphagia with recurrent aspiration pneumonia Status post PEG tube placement tolerating G-tube feedings. 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 Mood disorder continue Zoloft CAMRYN s/p IV fluids creatinine normalized continue water flushes Q 8 hours Lines: Right IJ TLC Prophylaxis: Lovenox, pantoprazole Disposition to rehab facility Quality Stroke Does the patient have a stroke diagnosis?: No VTE Prior VTE?: No VTE Risk Level:: Medical - moderate - high VTE Device Contraindication: Treatment Not Indicated VTE Drug Contraindication: N/A - Med Ordered
[2024-12-20 20:00] VITALS: BP 125/79; PULSE 118; RESP 16; TEMP 36.4; O2SAT 95
[2024-12-20] MEDS: Enoxaparin Sodium 40 MG/0.4 ML SYRINGE SUBCUT (21:40)
[2024-12-20] MEDS: Sennosides 8.6 MG TABLET 17.2 MG G-TUBE (21:40)
[2024-12-21] VITALS: BP 107/71; PULSE 113; RESP 20; TEMP 36.8; O2SAT 96
[2024-12-21 04:00] VITALS: BP 116/69; PULSE 118; RESP 20; TEMP 37; O2SAT 96
[2024-12-21] MEDS: Piperacillin Sodium/Tazobactam 3.375 GM in 0.9 % Sodium Chloride 50 ML IV ×4 (04:12→23:24)
[2024-12-21 07:26] VITALS: BP 127/88; PULSE 126; RESP 34; TEMP 37; O2SAT 96
[2024-12-21] MEDS: Sertraline HCL 50 MG TABLET G-TUBE (09:15)
[2024-12-21] MEDS: predniSONE 20 MG TABLET PO (09:15)
[2024-12-21] MEDS: Cholecalciferol (Vitamin D3) 25 MCG TABLET 50 MCG G-TUBE (09:15)
[2024-12-21] MEDS: Metoprolol Tartrate 12.5 MG HALFTAB PO ×2 (09:15→21:17)
[2024-12-21] MEDS: Cyclobenzaprine HCl 10 MG TABLET G-TUBE ×3 (09:16→21:15)
--- NOTE | 2024-12-21 10:55 | P.PNIM_ITS ---
Subjective Subjective Date of Service: 12/21/24 Interval History: Underwent trach placement in ICU on 12/17 underwent bronchoscopy Patient unable to communicate due to trach, noted to have thick secretions /requiring suctioning through trach Tolerating G-tube feeds Uneventful night. Review of Systems Unable to obtain due to trach. Physical Exam 2 Vital Signs: Vital Signs: Last Vital Signs Temp 98.6 F 12/21/24 07:26 Pulse 126 H 12/21/24 07:26 Resp 34 H 12/21/24 07:26 BP 127/88 12/21/24 07:26 Pulse Ox 96 12/21/24 07:26 O2 Del Method Trach Collar 12/21/24 07:26 O2 Flow Rate 12 12/21/24 07:26 FiO2 28 12/20/24 03:32 Oxygen Flow Rate 6 12/02/24 12:11 BMI result Body Mass Index 23.9 Const: Other: Gen: quadriparesis , no respiratory distress Neck: Trach collar in place Lungs: diminished, rhonchi Heart: regular rate and rhythm, no murmurs Abd: soft, non-tender, non-distended, peg in place, no surrounding erythema : suprapubic catheter, clear urine Ext: no edema Skin: warm/well-perfused Neuro: quadraparesis. Objective Data Active Medications Acetaminophen (Acetaminophen 325 Mg Tablet) 650 mg G-TUBE Q6H PRN PRN Reason: Pain, Mild 1-3,fever,headache Last Admin: 12/20/24 21:55 Dose: 650 mg Documented By: SAVANNA Chlorhexidine Gluconate (Chlorhexidine Gluc Oral Rinse 15 Ml Mouthwash) 15 ml BUCCAL TID [facility] Last Admin: 12/20/24 22:00 Dose: 15 ml Documented By: SAVANNA Cyclobenzaprine HCl (Cyclobenzaprine Hcl 10 Mg Tablet) 10 mg G-TUBE TID [facility] Last Admin: 12/21/24 09:16 Dose: 10 mg Documented By: FOSTEKMarisa Enoxaparin Sodium (Enoxaparin Sodium 40 Mg/0.4 Ml Syringe) 40 mg SUBCUT Q24H [facility] Last Admin: 12/20/24 21:40 Dose: 40 mg Documented By: SVAANNA Glycopyrrolate (Glycopyrrolate 0.2 Mg/Ml Vial) 0.1 mg IVPUSH Q4H PRN PRN Reason: secretions Last Admin: 12/17/24 08:22 Dose: 0.1 mg Documented By: ANNA Piperacillin Sod/Tazobactam (Sod 3.375 gm/ Sodium Chloride) 50 mls @ 100 mls/hr IV Q6H [facility] Last Infusion: 12/21/24 04:42 Dose: Infused Documented By: SAVANNA Magnesium Hydroxide (Milk Of Magnesia 30 Ml Oral.Susp) 30 ml G-TUBE DAILY PRN PRN Reason: Constipation Metoprolol Tartrate (Metoprolol Tartrate 12.5 Mg Halftab) 12.5 mg PO BID [facility]; Protocol Last Admin: 12/21/24 09:15 Dose: 12.5 mg Documented By: ZULEMA Ondansetron HCl (Ondansetron Hcl 4 Mg/2 Ml Vial) 4 mg IVPUSH Q8H PRN PRN Reason: Nausea and Vomiting Prednisone (Prednisone 20 Mg Tablet) 20 mg PO DAILY [facility] Last Admin: 12/21/24 09:15 Dose: 20 mg Documented By: ZULEMA Senna (Sennosides 8.6 Mg Tablet) 17.2 mg G-TUBE BEDTIME [facility] Last Admin: 12/20/24 21:40 Dose: 17.2 mg Documented By: SAVANNA Sertraline HCl (Sertraline Hcl 50 Mg Tablet) 50 mg G-TUBE DAILY [facility] Last Admin: 12/21/24 09:15 Dose: 50 mg Documented By: ZULEMA Sodium Chloride (0.9 % Sodium Chloride Flush 3 Ml Syringe) 3 ml IVFLUSH QSHIFT [facility] Last Admin: 12/21/24 09:42 Dose: Not Given Documented By: ZULEMA Non-Admin Reason: Previously Administered Vitamin D (Cholecalciferol (Vitamin D3) 25 Mcg Tablet) 50 mcg G-TUBE DAILY [facility] Last Admin: 12/21/24 09:15 Dose: 50 mcg Documented By: ZULEMA Labs 12/19/24 04:24 12/19/24 04:24 Assessment and Plan (1) Copious oral secretions: Status: Acute (2) Aspiration pneumonia: Status: Acute Plan 39-year-old male with a PMH significant for?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 admitted to the hospital for treatment and further evaluation of CAMRYN and sepsis in the setting of acute UTI and acute bibasilar pneumonia, status post PEG tube placement during previous hospitalization. Acute on chronic hypoxic respiratory failure, due to significant neurologic disorder unable to clear secretion with recurrent aspiration pneumonias therefore underwent tracheostomy tube placement on December 17, on trach collar Blood, bronch and urine culture negative, On IV Zosyn for aspiration pneumonia started on 12/15 will DC after 7 days . Being followed by respiratory therapy/will have trach valve so patient can communicate Episode of SVT in ICU/recurrent sinus tach started on metoprolol 12.5 b.i.d.CTA chest 12/02 showed no PE, echo 10/2024 with mildly reduced EF 50-55%, otherwise within normal limits Acute UTI with sepsis urine culture positive for enterobacter sensitive only to gentamicin and Bactrim and resistant to cefepime/blood cultures negative times 48 hours/WBC trending down Finished course of Bactrim Acute anemia: Hemoglobin stable Received 1 PRBC transfusion Dysphagia with recurrent aspiration pneumonia Status post PEG tube placement tolerating G-tube feedings. 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 Mood disorder continue Zoloft CAMRYN s/p IV fluids creatinine normalized continue water flushes Q 8 hours Lines: Right IJ TLC Prophylaxis: Lovenox, pantoprazole Disposition to rehab facility Quality Stroke Does the patient have a stroke diagnosis?: No VTE Prior VTE?: No VTE Risk Level:: Medical - moderate - high VTE Device Contraindication: Treatment Not Indicated VTE Drug Contraindication: N/A - Med Ordered
[2024-12-21 12:00] VITALS: BP 118/77; PULSE 105; RESP 18; TEMP 36.5; O2SAT 96
--- NOTE | 2024-12-21 12:50 | HO.WOUND ---
Wound Consult:Follow up 39yr old?Male admitted to [facility] [place] on 12/02/24 - See progress notes and H&P for detailed history.? Wound consult follow up for Buttock wound.? ?Patient currently on Med -Tele unit, ANABELLE bed in use along with pillows for repositions. Recommend preventative foams to heels. Sacrum Etiology: ?Stage 2 Pressure Injury ?Present on Admission Wound Bed: central open red pink moist wound bed - partial thickness tissue loss periwound with MASD and friction noted Edges: ? attached Carmen wound: MASD (Moisture Associated Skin Damage) bilateral ischial areas are noted for dark pigmented moist tissue - noted on last assessment - recommend triad and continue to off load pressure. No Induration, Fluctuance or Warmth noted Goals of Treatment: ? Off Load Pressure and Triad cream to allow for continued healing and protect from friction and moisture No new topical recommendations needed at this time Recommendations: 1. Turn and Reposition every 2 hours and as needed for patient comfort.? Use pillows or wedges to support off loading positions. 2. Off Load all bony prominences with use of pillows and heel boots if needed.? Apply Preventative foams where needed. ? 3. Monitor for incontinence and moisture control, use barrier creams when needed for prevention and treatment. 4. Provide adequate and supplemental nutrition.? 5. Continue low air loss mattress. 6. When applicable maintain blood glucose levels per Providers order. 7. Buttock - Off Load Pressure with Q2 hr turns and use of pillows - Cleanse with PH balance spray or wipes, pat dry. ?Apply thin layer of Triad to wound bed - only pat and dab no scrub and rub when soiling occurs. Reapply thin layer PRN after each episode of incontinence. Details from last assessment: Sacrum 12/15/24 12/06/24 Sacrum Etiology: ?Stage 2 Pressure Injury ?Present on Admission Wound Bed: central open red pink moist wound bed - partial thickness tissue loss periwound with MASD Noted Edges: ? attached Carmen wound:MASD (Moisture Associated Skin Damage) No Induration, Fluctuance or Warmth noted Goals of Treatment: ? Off Load Pressure and Triad cream to allow for continued healing and protect from friction and moisture No new topical recommendations needed at this time Recommendations: 1. Turn and Reposition every 2 hours and as needed for patient comfort.? Use pillows or wedges to support off loading positions. 2. Off Load all bony prominences with use of pillows and heel boots if needed.? Apply Preventative foams where needed. ? 3. Monitor for incontinence and moisture control, use barrier creams when needed for prevention and treatment. 4. Provide adequate and supplemental nutrition.? 5. Continue low air loss mattress. 6. When applicable maintain blood glucose levels per Providers order. 7. Buttock - Off Load Pressure with Q2 hr turns and use of pillows - Cleanse with PH balance spray or wipes, pat dry. ?Apply thin layer of Triad to wound bed - only pat and dab no scrub and rub when soiling occurs. Reapply thin layer PRN after each episode of incontinence. May cover with foam dressing, change every 3 days and PRN. Re-consult wound care Nurse for wound deterioration or wound changes.
--- NOTE | 2024-12-21 14:24 | MHC.SLORD ---
Speech Language Pathology Order Status: Per [facility] intervention no longer indicated at this level of care. Patient on Gtube feeds, s/p trach placement, with thick secretions and requiring suction through trach. Please re-refer if needed.
[2024-12-21 15:32] VITALS: BP 126/84; PULSE 108; RESP 16; TEMP 36.6; O2SAT 97
--- NOTE | 2024-12-21 15:43 | MHC.CM.PN ---
PER ELLI PAVON PT HAS MEDICAID [id number] AND MEDICARE [id number]
[2024-12-21] MEDS: Chlorhexidine Gluc Oral Rinse 15 ML MOUTHWASH BUCCAL ×2 (16:22→21:15)
[2024-12-21 20:00] VITALS: BP 125/81; PULSE 115; RESP 20; TEMP 36.9; O2SAT 95
[2024-12-21] MEDS: Enoxaparin Sodium 40 MG/0.4 ML SYRINGE SUBCUT (21:14)
[2024-12-21] MEDS: Sennosides 8.6 MG TABLET 17.2 MG G-TUBE (21:16)
[2024-12-21] MEDS: Mupirocin 2 % Oint 22 GM TUBE 1 APPL TOPICAL ×2 (21:26→23:27)
[2024-12-22] VITALS (8 sets, daily range): BP systolic 123–154; BP diastolic 68–96; PULSE 70–115; RESP 18–23; TEMP 36.2–37.3; O2SAT 94–99
[2024-12-22] MEDS: Piperacillin Sodium/Tazobactam 3.375 GM in 0.9 % Sodium Chloride 50 ML IV (04:08)
[2024-12-22 08:15] LABS: Basophils Absolute Auto 0.1 X10*3/uL (0.0-0.2); Basophils Percent Auto 0.5 % (0-2); Eosinophils Absolute Auto 0.2 X10*3/uL (0.0-0.4); Eosinophils Percent Auto 1.3 % (0-4); Hematocrit 29.1 % (42.0-52.0); Imm Gran Abs Auto 0.11 X10*3/uL (0.00-0.03); Imm Gran Pct Auto 0.7 % (0.0-0.4); Lymphocytes Absolute Auto 1.4 X10*3/uL (1.2-4.9); Lymphocytes Percent Auto 8.9 % (20-40); MANUAL DIFF FLAG SCAN; Mean Corpuscular HGB Conc 30.9 g/dl (31.0-36.0); Mean Corpuscular Hemoglobin 24.2 pg (27.0-33.0); Mean Corpuscular Volume 78.2 fL (80.0-98.0); Mean Platelet Volume 11.3 fL (9.4-12.4); Monocytes Absolute Auto 1.7 X10*3/uL (0.1-1.2); Neutrophils Absolute Auto 11.9 x10*3/uL (2.0-8.3); Neutrophils Percent Auto 77.6 % (45-73); Platelet Count 521 X10*3/uL (160-400); Red Blood Count 3.72 X10*6/uL (4.60-5.80); Red Cell Distribution Width 18.5 % (11.0-16.0); SCAN SMEAR FLAG 1; White Blood Count 15.3 X10*3/uL (4.8-10.8)
[2024-12-22] MEDS: predniSONE 20 MG TABLET PO (08:21)
[2024-12-22] MEDS: Cyclobenzaprine HCl 10 MG TABLET G-TUBE ×3 (08:21→20:23)
[2024-12-22] MEDS: Cholecalciferol (Vitamin D3) 25 MCG TABLET 50 MCG G-TUBE (08:21)
[2024-12-22] MEDS: Sertraline HCL 50 MG TABLET G-TUBE (08:21)
[2024-12-22] MEDS: Metoprolol Tartrate 12.5 MG HALFTAB PO ×2 (08:21→20:23)
[2024-12-22] MEDS: Chlorhexidine Gluc Oral Rinse 15 ML MOUTHWASH BUCCAL ×2 (08:21→21:26)
[2024-12-22] MEDS: Mupirocin 2 % Oint 22 GM TUBE 1 APPL TOPICAL ×3 (08:22→20:23)
[2024-12-22] MEDS: 0.9 % Sodium Chloride Flush 3 ML SYRINGE IVFLUSH ×2 (08:22→20:35)
[2024-12-22 08:37] LABS: Anion Gap 13 (12-20); Blood Urea Nitrogen 18 mg/dL (9-16); Calcium 9.6 mg/dL (8.4-10.2); Carbon Dioxide 26 mmol/L (22-29); Chloride 108 mmol/L (96-108); Creatinine Clr Calc Pharmacy 158.3; Estimated Glomerular Filt Rate > 60; Glucose Random 92 mg/dL (60-115); Potassium 3.4 mmol/L (3.3-5.1); Sodium 144 mmol/L (135-145)
[2024-12-22 08:46] LABS: SLIDE REVIEW VERIFIED
--- NOTE | 2024-12-22 11:01 | HO.PM.IMPN ---
Subjective Subjective Date of Service: 12/22/24 Interval History: Underwent trach placement in ICU on 12/17 underwent bronchoscopy Noted to have thick secretions /requiring suctioning through trach Tolerating G-tube feeds Uneventful night. Poor insight Review of Systems Unable to obtain due to trach. Physical Exam Vital Signs: Vital Signs: Last Vital Signs Temp 98.0 F 12/22/24 07:15 Pulse 110 H 12/22/24 07:15 Resp 20 12/22/24 07:15 BP 133/76 12/22/24 07:15 Pulse Ox 98 12/22/24 07:15 O2 Del Method Trach Collar 12/22/24 07:15 O2 Flow Rate 12 12/22/24 07:15 FiO2 40 12/22/24 07:15 Oxygen Flow Rate 6 12/02/24 12:11 BMI result Body Mass Index 23.9 Const: Other: Gen: quadriparesis , no respiratory distress Neck: Trach collar in place Lungs: diminished, rhonchi Heart: regular rate and rhythm, no murmurs Abd: soft, non-tender, non-distended, peg in place, no surrounding erythema : suprapubic catheter, clear urine Ext: no edema Skin: warm/well-perfused Neuro: quadraparesis. Objective Data Active Medications Acetaminophen (Acetaminophen 325 Mg Tablet) 650 mg G-TUBE Q6H PRN PRN Reason: Pain, Mild 1-3,fever,headache Last Admin: 12/20/24 21:55 Dose: 650 mg Documented By: SAVANNA Chlorhexidine Gluconate (Chlorhexidine Gluc Oral Rinse 15 Ml Mouthwash) 15 ml BUCCAL TID [facility] Last Admin: 12/22/24 08:21 Dose: 15 ml Documented By: ZULEMA Cyclobenzaprine HCl (Cyclobenzaprine Hcl 10 Mg Tablet) 10 mg G-TUBE TID [facility] Last Admin: 12/22/24 08:21 Dose: 10 mg Documented By: ZULEMA Enoxaparin Sodium (Enoxaparin Sodium 40 Mg/0.4 Ml Syringe) 40 mg SUBCUT Q24H [facility] Last Admin: 12/21/24 21:14 Dose: 40 mg Documented By: KRISTEN Glycopyrrolate (Glycopyrrolate 0.2 Mg/Ml Vial) 0.1 mg IVPUSH Q4H PRN PRN Reason: secretions Last Admin: 12/17/24 08:22 Dose: 0.1 mg Documented By: CTORRZ Piperacillin Sod/Tazobactam (Sod 3.375 gm/ Sodium Chloride) 50 mls @ 100 mls/hr IV Q6H [facility] Last Infusion: 12/22/24 04:55 Dose: Infused Documented By: KRISTEN Magnesium Hydroxide (Milk Of Magnesia 30 Ml Oral.Susp) 30 ml G-TUBE DAILY PRN PRN Reason: Constipation Metoprolol Tartrate (Metoprolol Tartrate 12.5 Mg Halftab) 12.5 mg PO BID [facility]; Protocol Last Admin: 12/22/24 08:21 Dose: 12.5 mg Documented By: ZULEMA Mupirocin (Mupirocin 2 % Oint 22 Gm Tube) 1 appl TOPICAL TID [facility]; Protocol Last Admin: 12/22/24 08:22 Dose: 1 appl Documented By: ZULEMA Ondansetron HCl (Ondansetron Hcl 4 Mg/2 Ml Vial) 4 mg IVPUSH Q8H PRN PRN Reason: Nausea and Vomiting Prednisone (Prednisone 20 Mg Tablet) 20 mg PO DAILY [facility] Last Admin: 12/22/24 08:21 Dose: 20 mg Documented By: ZULEMA Senna (Sennosides 8.6 Mg Tablet) 17.2 mg G-TUBE BEDTIME [facility] Last Admin: 12/21/24 21:16 Dose: 17.2 mg Documented By: KRISTEN Sertraline HCl (Sertraline Hcl 50 Mg Tablet) 50 mg G-TUBE DAILY [facility] Last Admin: 12/22/24 08:21 Dose: 50 mg Documented By: ZULEMA Sodium Chloride (0.9 % Sodium Chloride Flush 3 Ml Syringe) 3 ml IVFLUSH QSHIFT [facility] Last Admin: 12/22/24 08:22 Dose: 3 ml Documented By: ZULEMA Vitamin D (Cholecalciferol (Vitamin D3) 25 Mcg Tablet) 50 mcg G-TUBE DAILY [facility] Last Admin: 12/22/24 08:21 Dose: 50 mcg Documented By: ZULEMA Labs 12/22/24 07:54 12/22/24 07:54 Labs: Laboratory Results - last 24 hr 12/22/24 07:54 MCV 78.2 L MCH 24.2 L MCHC 30.9 L RDW 18.5 H Plt Count 521 H D MPV 11.3 Immature Gran % (Auto) 0.7 H Neut % (Auto) 77.6 H Lymph % (Auto) 8.9 L [place] % (Auto) 11.0 Eos % (Auto) 1.3 Baso % (Auto) 0.5 Lymph # (Auto) 1.4 [place] # (Auto) 1.7 H Eos # (Auto) 0.2 Baso # (Auto) 0.1 Abs Immat Gran (auto) 0.11 H Absolute Neuts (auto) 11.9 H Absolute Nucleated RBC 0.000 Nucleated RBC % (auto) 0.0 Smear Tech's Comments VERIFIED Anion Gap 13 Estim Creat Clear Calc 158.3 Estimated GFR > 60 Random Glucose 92 Calcium 9.6 D Lactate Dehydrogenase Cancelled Assessment and Plan (1) Aspiration pneumonia: Status: Acute Plan 39-year-old male with a PMH significant for?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 admitted to the hospital for treatment and further evaluation of CAMRYN and sepsis in the setting of acute UTI and acute bibasilar pneumonia, status post PEG tube placement during previous hospitalization. Acute purulent cellulitis around G tube site started vancomycin 12/22 Acute on chronic hypoxic respiratory failure, due to significant neurologic disorder unable to clear secretion with recurrent aspiration pneumonias therefore underwent tracheostomy tube placement on December 17, on trach collar Blood, bronch and urine culture negative, Completed IV zosyn abx course for aspiration pna Being followed by respiratory therapy/trach valve so patient can communicate Bronchial washings: Corneybacterium and yeast. Consulted ID 12/22 Episode of SVT in ICU/recurrent sinus tach started on metoprolol 12.5 b.i.d.CTA chest 12/02 showed no PE, echo 10/2024 with mildly reduced EF 50-55%, otherwise within normal limits Acute UTI with sepsis urine culture positive for enterobacter sensitive only to gentamicin and Bactrim and resistant to cefepime/blood cultures negative times 48 hours/WBC trending down Finished course of Bactrim Acute anemia: Hemoglobin stable Received 1 PRBC transfusion Dysphagia with recurrent aspiration pneumonia Status post PEG tube placement tolerating G-tube feedings. 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 Mood disorder continue Zoloft CAMRYN s/p IV fluids creatinine normalized continue water flushes Q 8 hours Lines: Right IJ TLC Prophylaxis: Lovenox, pantoprazole Disposition to rehab facility Reason for continued hospitalization: IV antibiotics, safe disposition Quality Stroke Does the patient have a stroke diagnosis?: No VTE Prior VTE?: No VTE Risk Level:: Medical - moderate - high VTE Device Contraindication: Treatment Not Indicated VTE Drug Contraindication: N/A - Med Ordered
--- NOTE | 2024-12-22 11:17 | MHC.CLN ---
F/U PT TRANSFERRED TO MEDICAL FLOOR PT IS S/P TRACH PT RECEIVED PROMOTE AT MAX GOAL RATE 70ML/HR WITH 240ML FREE WATER FLUSHES Q 8 HRS PROVIDES 1680KCALS, 105G PROTEIN (1.5G/KG), 2129ML TOTAL WATER FROM FORMULA AND FLUSHES (29ML/KG) TF NOT MEETING KCAL NEEDS RECOMMEND SWITCHING TF FORMULA TO JEVITY 1.0 AT MAX GOAL RATE 85ML/HR WITH 30MLPROSOURCE X1 PER DAY AND 120ML FREE WATER FLUSHES Q 6 HRS TO PROVIDE 2222 TOTAL KCALS (FROM FORMULA AND PROSOURCE), 105G TOTAL PROTEIN (1.4G/KG), 2183ML TOTAL WATER FROM FORMULA AND FLUSHES (29.7ML/KG) CONTINUE TO MONITOR TOLERANCE AND LYTES
--- NOTE | 2024-12-22 11:53 | MHC.CM.PN ---
EMR REVIEWED, PER HOSPITALIST PLAN FOR PSYCH TO RE-EVAL FOR CAPACITY, UPDATED MD NOTE AND LABS SENT TO [facility], CM WILL CONT TO FOLLOW DC NEEDS.
[2024-12-22 12:17] LABS: Lactic Acid 1.1 mmol/L (0.5-2.0)
[2024-12-22] MEDS: vancomycin HCL 1,000 MG, vancomycin HCL 750 MG in 0.9 % Sodium Chloride 500 ML 267.5 MG IV (13:04)
--- NOTE | 2024-12-22 13:33 | PHA.PROG ---
Admission Date/Time: December 02, 2024 20:00 Indication: SSTI Weight in k.4 kg Adjusted body weight in Kg: [place] body weight in Kg: Obesity Dosing Indication % IBW: Serum Creatinine - Last 168 Hours 12/16/24 12/17/24 12/18/24 04:12 05:24 04:32 Creatinine 0.51 0.63 0.63 12/19/24 12/22/24 04:24 07:54 Creatinine 0.55 0.62 Estimated CrCl and GFR - Last 168 Hours 12/16/24 12/17/24 12/18/24 04:12 05:24 04:32 Estim Creat Clear Calc 192.5 155.8 155.8 Estimated GFR > 60 > 60 > 60 12/19/24 12/22/24 04:24 07:54 Estim Creat Clear Calc 178.5 158.3 Estimated GFR > 60 > 60 Vancomycin Loading Dose: 1750mg Current Vancomycin Dosing Regimen: 1500mh q12h Vancomycin Monitoring using AUC goal of 400 - 600 range with trough as surrogate marker: 499mg/L Date and Time for next Vancomycin Level to be drawn: 12/23/2024 @ 1300 Vancomycin Trough 16.2 mcg/mL (10.0-20.0) 12/17/24 16:10 Pharmacist Comments on Vancomycin Plan: Vancomycin dosing will take advantage of [employer] as a clinical decision support tool that uses Bayesian modeling to calculate individual patient's pharmacokinetic parameters and forecast the patient's drug concentration time course with the target goal AUC 24 range of 400 - 600 mg/L/hr.
[2024-12-22] MEDS: Enoxaparin Sodium 40 MG/0.4 ML SYRINGE SUBCUT (20:23)
[2024-12-22] MEDS: Sennosides 8.6 MG TABLET 17.2 MG G-TUBE (20:23)
[2024-12-22] MEDS: Glycopyrrolate 0.2 MG/ML VIAL 0.1 MG IVPUSH (21:26)
[2024-12-23] MEDS: vancomycin HCL 1,500 MG in 0.9 % Sodium Chloride 500 ML 333.33 MG IV (02:18)
[2024-12-23 04:00] VITALS: BP 159/94; PULSE 101; RESP 18; O2SAT 97
[2024-12-23 07:16] VITALS: BP 123/88; PULSE 117; RESP 18; TEMP 37.3; O2SAT 99
--- NOTE | 2024-12-23 09:43 | P.PNIM_ITS ---
Subjective Subjective Date of Service: 12/23/24 Interval History: Underwent trach placement in ICU on 12/17 underwent bronchoscopy Noted to have thick secretions /requiring suctioning through trach Tolerating G-tube feeds Uneventful night. Poor insight/capacity Review of Systems Unable to obtain due to trach Review of Systems: Yes Unobtainable due to mental condition Physical Exam 2 Vital Signs: Vital Signs: Last Vital Signs Temp 99.1 F 12/23/24 07:16 Pulse 117 H 12/23/24 07:16 Resp 18 12/23/24 07:16 BP 123/88 12/23/24 07:16 Pulse Ox 99 12/23/24 07:16 O2 Del Method Trach Collar 12/23/24 07:16 O2 Flow Rate 2 12/22/24 23:00 FiO2 40 12/22/24 11:09 Oxygen Flow Rate 6 12/02/24 12:11 BMI result Body Mass Index 23.9 Const: Other: Gen: quadriparesis , no respiratory distress Neck: Trach collar in place Lungs: diminished, rhonchi Heart: regular rate and rhythm, no murmurs Abd: soft, non-tender, non-distended, peg in place, no surrounding erythema : suprapubic catheter, clear urine Ext: no edema Skin: warm/well-perfused Neuro: quadraparesis Objective Data Active Medications Acetaminophen (Acetaminophen 325 Mg Tablet) 650 mg G-TUBE Q6H PRN PRN Reason: Pain, Mild 1-3,fever,headache Last Admin: 12/20/24 21:55 Dose: 650 mg Documented By: SAVANNA Chlorhexidine Gluconate (Chlorhexidine Gluc Oral Rinse 15 Ml Mouthwash) 15 ml BUCCAL TID [facility] Last Admin: 12/22/24 21:26 Dose: 15 ml Documented By: STEPHON Cyclobenzaprine HCl (Cyclobenzaprine Hcl 10 Mg Tablet) 10 mg G-TUBE TID [facility] Last Admin: 12/22/24 20:23 Dose: 10 mg Documented By: STEPHON Enoxaparin Sodium (Enoxaparin Sodium 40 Mg/0.4 Ml Syringe) 40 mg SUBCUT Q24H [facility] Last Admin: 12/22/24 20:23 Dose: 40 mg Documented By: STEPHON Glycopyrrolate (Glycopyrrolate 0.2 Mg/Ml Vial) 0.1 mg IVPUSH Q4H PRN PRN Reason: secretions Last Admin: 12/22/24 21:26 Dose: 0.1 mg Documented By: STEPHON Vancomycin HCl 1,500 mg/ (Sodium Chloride) 500 mls @ 333.333 mls/hr IV Q12H [facility] Last Infusion: 12/23/24 04:03 Dose: Infused Documented By: STEPHON Magnesium Hydroxide (Milk Of Magnesia 30 Ml Oral.Susp) 30 ml G-TUBE DAILY PRN PRN Reason: Constipation Metoprolol Tartrate (Metoprolol Tartrate 12.5 Mg Halftab) 12.5 mg PO BID [facility]; Protocol Last Admin: 12/22/24 20:23 Dose: 12.5 mg Documented By: STEPHON Mupirocin (Mupirocin 2 % Oint 22 Gm Tube) 1 appl TOPICAL TID [facility]; Protocol Last Admin: 12/22/24 20:23 Dose: 1 appl Documented By: STEPHON Ondansetron HCl (Ondansetron Hcl 4 Mg/2 Ml Vial) 4 mg IVPUSH Q8H PRN PRN Reason: Nausea and Vomiting Pharmacy Consult (Consult Rx Vancomycin Dosing) 1 each MISCELLANE DAILY PRN PRN Reason: Consult order Prednisone (Prednisone 20 Mg Tablet) 20 mg PO DAILY [facility] Last Admin: 12/22/24 08:21 Dose: 20 mg Documented By: ZULEMA Senna (Sennosides 8.6 Mg Tablet) 17.2 mg G-TUBE BEDTIME [facility] Last Admin: 12/22/24 20:23 Dose: 17.2 mg Documented By: STEPHON Sertraline HCl (Sertraline Hcl 50 Mg Tablet) 50 mg G-TUBE DAILY [facility] Last Admin: 12/22/24 08:21 Dose: 50 mg Documented By: ZULEMA Sodium Chloride (0.9 % Sodium Chloride Flush 3 Ml Syringe) 3 ml IVFLUSH QSHIFT [facility] Last Admin: 12/22/24 20:35 Dose: 3 ml Documented By: STEPHON Vitamin D (Cholecalciferol (Vitamin D3) 25 Mcg Tablet) 50 mcg G-TUBE DAILY [facility] Last Admin: 12/22/24 08:21 Dose: 50 mcg Documented By: HO.FOSTEKR Labs 12/22/24 07:54 12/23/24 09:08 Labs: Laboratory Results - last 24 hr 12/22/24 12/22/24 12/23/24 07:54 11:48 09:08 Hold Purple Top SEE NOTE Lactic Acid 1.1 Lactate Dehydrogenase Cancelled Assessment and Plan (1) Cellulitis: Status: Acute Plan 39-year-old male with a PMH significant for?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 admitted to the hospital for treatment and further evaluation of CAMRYN and sepsis in the setting of acute UTI and acute bibasilar pneumonia, status post PEG tube placement during previous hospitalization. Acute purulent cellulitis around G tube site started vancomycin 12/22 Acute on chronic hypoxic respiratory failure, due to significant neurologic disorder unable to clear secretion with recurrent aspiration pneumonias therefore underwent tracheostomy tube placement on December 17, on trach collar Blood, bronch and urine culture negative, Completed IV zosyn abx course for aspiration pna Being followed by respiratory therapy/trach valve so patient can communicate Bronchial washings: Corneybacterium and yeast. Discussed with ID and likely contamination. Episode of SVT in ICU/recurrent sinus tach started on metoprolol 12.5 b.i.d.CTA chest 12/02 showed no PE, echo 10/2024 with mildly reduced EF 50-55%, otherwise within normal limits Acute UTI with sepsis urine culture positive for enterobacter sensitive only to gentamicin and Bactrim and resistant to cefepime/blood cultures negative times 48 hours/WBC trending down Finished course of Bactrim Acute anemia: Hemoglobin stable Received 1 PRBC transfusion Dysphagia with recurrent aspiration pneumonia Status post PEG tube placement tolerating G-tube feedings. 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 Mood disorder continue Zoloft CAMRYN s/p IV fluids creatinine normalized continue water flushes Q 8 hours Lines: Right IJ TLC Prophylaxis: Lovenox, pantoprazole Disposition to rehab facility Reason for continued hospitalization: IV antibiotics, safe disposition Quality Stroke Does the patient have a stroke diagnosis?: No VTE Prior VTE?: No VTE Risk Level:: Medical - moderate - high VTE Device Contraindication: Treatment Not Indicated VTE Drug Contraindication: N/A - Med Ordered
[2024-12-23 09:52] LABS: Creatinine Clr Calc Pharmacy 166.4; Estimated Glomerular Filt Rate > 60
--- NOTE | 2024-12-23 10:46 | MHC.CLN ---
F/U TF RUNNING AT 70ML/HR TOLERATING WELL RECOMMEND TF FORMULA JEVITY 1.0 AT MAX GOAL RATE 85ML/HR WITH 30ML PROSOURCE X1 PER DAY AND 120ML FREE WATER FLUSHES Q 6 HRS TO PROVIDE 2222 TOTAL KCALS (FROM FORMULA AND PROSOURCE), 105G TOTAL PROTEIN (1.4G/KG), 2183ML TOTAL WATER FROM FORMULA AND FLUSHES (29.7ML/KG) MONITOR TOLERANCE AND LYTES
[2024-12-23] MEDS: predniSONE 20 MG TABLET PO (10:52)
[2024-12-23] MEDS: Cyclobenzaprine HCl 10 MG TABLET G-TUBE ×3 (10:52→20:38)
[2024-12-23] MEDS: Sertraline HCL 50 MG TABLET G-TUBE (10:52)
[2024-12-23] MEDS: Metoprolol Tartrate 12.5 MG HALFTAB PO ×2 (10:52→20:38)
[2024-12-23] MEDS: Chlorhexidine Gluc Oral Rinse 15 ML MOUTHWASH BUCCAL (10:52)
[2024-12-23] MEDS: Mupirocin 2 % Oint 22 GM TUBE 1 APPL TOPICAL ×3 (10:53→20:51)
[2024-12-23] MEDS: Cholecalciferol (Vitamin D3) 25 MCG TABLET 50 MCG G-TUBE (10:53)
[2024-12-23 11:20] VITALS: BP 122/81; PULSE 117; RESP 18; TEMP 36.2; O2SAT 97
[2024-12-23 13:09] LABS: Vancomycin Random 18.2 mcg/mL (15-20)
[2024-12-23] MEDS: LORazepam 2 MG/ML VIAL 1 MG IVPUSH (15:08)
[2024-12-23] MEDS: vancomycin HCL 1,250 MG in 0.9 % Sodium Chloride 250 ML 166.67 MG IV (15:08)
[2024-12-23 15:20] VITALS: BP 112/71; PULSE 115; RESP 18; TEMP 36.7; O2SAT 94
[2024-12-23 20:00] VITALS: BP 126/83; PULSE 83; RESP 18; TEMP 36.3; O2SAT 94
[2024-12-23] MEDS: Sennosides 8.6 MG TABLET 17.2 MG G-TUBE (20:38)
[2024-12-23] MEDS: Enoxaparin Sodium 40 MG/0.4 ML SYRINGE SUBCUT (20:38)
[2024-12-23 23:48] VITALS: BP 149/86; PULSE 103; RESP 18; TEMP 36.8; O2SAT 100
[2024-12-24] MEDS: vancomycin HCL 1,250 MG in 0.9 % Sodium Chloride 250 ML 166.67 MG IV ×2 (02:14→17:43)
[2024-12-24 03:04] VITALS: BP 156/86; PULSE 117; RESP 18; TEMP 36.8; O2SAT 96
[2024-12-24] MEDS: LORazepam 2 MG/ML VIAL 0.5 MG IVPUSH (03:17)
[2024-12-24] MEDS: Glycopyrrolate 0.2 MG/ML VIAL 0.1 MG IVPUSH ×2 (05:56→22:17)
[2024-12-24 06:57] VITALS: BP 140/88; PULSE 114; RESP 18; TEMP 36.7; O2SAT 98
[2024-12-24 08:43] LABS: Creatinine Clr Calc Pharmacy 178.5; Estimated Glomerular Filt Rate > 60
[2024-12-24] MEDS: Cholecalciferol (Vitamin D3) 25 MCG TABLET 50 MCG G-TUBE (09:33)
[2024-12-24] MEDS: Cyclobenzaprine HCl 10 MG TABLET G-TUBE ×3 (09:34→22:16)
[2024-12-24] MEDS: predniSONE 20 MG TABLET PO (09:34)
[2024-12-24] MEDS: Metoprolol Tartrate 12.5 MG HALFTAB PO ×2 (09:34→22:15)
[2024-12-24] MEDS: Sertraline HCL 50 MG TABLET G-TUBE (09:34)
[2024-12-24] MEDS: Acetaminophen 325 MG TABLET 650 MG G-TUBE ×2 (09:35→22:16)
[2024-12-24] MEDS: Mupirocin 2 % Oint 22 GM TUBE 1 APPL TOPICAL ×3 (09:36→22:15)
[2024-12-24] MEDS: Chlorhexidine Gluc Oral Rinse 15 ML MOUTHWASH BUCCAL ×2 (09:57→17:52)
[2024-12-24] MEDS: 0.9 % Sodium Chloride Flush 3 ML SYRINGE IVFLUSH ×2 (10:34→22:17)
[2024-12-24 11:04] VITALS: BP 124/77; PULSE 108; RESP 18; TEMP 36.9; O2SAT 94
--- NOTE | 2024-12-24 11:25 | MHC.CLN ---
F/U TF RUNNING AT 70ML/HR-SPOKE WITH NSG TO TITRATE TF TO MAX GOAL RATE 85ML/HR TOLERATING WELL PT SHOULD RECEIVE TF FORMULA JEVITY 1.0 AT MAX GOAL RATE 85ML/HR WITH 30ML PROSOURCE X1 PER DAY AND 120ML FREE WATER FLUSHES Q 6 HRS TO PROVIDE 2222 TOTAL KCALS (FROM FORMULA AND PROSOURCE), 105G TOTAL PROTEIN (1.4G/KG), 2183ML TOTAL WATER FROM FORMULA AND FLUSHES (29.7ML/KG) CONTINUE TO MONITOR TOLERANCE AND LYTES
--- NOTE | 2024-12-24 14:49 | HO.PM.IMPN ---
Subjective Subjective Date of Service: 12/24/24 Interval History: Patient awake alert difficult to understand, feels hot and wants sheets to be removed Noted to have copious secretions requiring suctioning Review of Systems Unable to obtain due to trach Physical Exam Vital Signs: Vital Signs: Last Vital Signs Temp 98.5 F 12/24/24 11:04 Pulse 108 H 12/24/24 11:04 Resp 18 12/24/24 11:04 BP 124/77 12/24/24 11:04 Pulse Ox 94 12/24/24 11:04 O2 Del Method Trach Collar 12/24/24 11:04 O2 Flow Rate 10 12/24/24 11:04 FiO2 40 12/22/24 11:09 Oxygen Flow Rate 6 12/02/24 12:11 BMI result Body Mass Index 23.9 Const: Other: Gen: quadriparesis , no respiratory distress Neck: Trach collar in place Lungs: diminished, rhonchi Heart: regular rate and rhythm, no murmurs Abd: soft, non-tender, non-distended, peg in place, no surrounding erythema : suprapubic catheter, clear urine Ext: no edema Skin: warm/well-perfused Neuro: quadraparesis, Objective Data Active Medications Acetaminophen (Acetaminophen 325 Mg Tablet) 650 mg G-TUBE Q6H PRN PRN Reason: Pain, Mild 1-3,fever,headache Last Admin: 12/24/24 09:35 Dose: 650 mg Documented By: VARUN Chlorhexidine Gluconate (Chlorhexidine Gluc Oral Rinse 15 Ml Mouthwash) 15 ml BUCCAL TID [facility] Last Admin: 12/24/24 09:57 Dose: 15 ml Documented By: VARUN Cyclobenzaprine HCl (Cyclobenzaprine Hcl 10 Mg Tablet) 10 mg G-TUBE TID [facility] Last Admin: 12/24/24 09:34 Dose: 10 mg Documented By: VARUN Enoxaparin Sodium (Enoxaparin Sodium 40 Mg/0.4 Ml Syringe) 40 mg SUBCUT Q24H [facility] Last Admin: 12/23/24 20:38 Dose: 40 mg Documented By: STEPHON Glycopyrrolate (Glycopyrrolate 0.2 Mg/Ml Vial) 0.1 mg IVPUSH Q4H PRN PRN Reason: secretions Last Admin: 12/24/24 05:56 Dose: 0.1 mg Documented By: STEPHON Vancomycin HCl 1,250 mg/ (Sodium Chloride) 250 mls @ 166.667 mls/hr IV Q12H [facility] Last Infusion: 12/24/24 03:47 Dose: Infused Documented By: STEPHON Magnesium Hydroxide (Milk Of Magnesia 30 Ml Oral.Susp) 30 ml G-TUBE DAILY PRN PRN Reason: Constipation Metoprolol Tartrate (Metoprolol Tartrate 12.5 Mg Halftab) 12.5 mg PO BID [facility]; Protocol Last Admin: 12/24/24 09:34 Dose: 12.5 mg Documented By: VARUN Mupirocin (Mupirocin 2 % Oint 22 Gm Tube) 1 appl TOPICAL TID [facility]; Protocol Last Admin: 12/24/24 09:36 Dose: 1 appl Documented By: VARUN Ondansetron HCl (Ondansetron Hcl 4 Mg/2 Ml Vial) 4 mg IVPUSH Q8H PRN PRN Reason: Nausea and Vomiting Pharmacy Consult (Consult Rx Vancomycin Dosing) 1 each MISCELLANE DAILY PRN PRN Reason: Consult order Prednisone (Prednisone 20 Mg Tablet) 20 mg PO DAILY [facility] Last Admin: 12/24/24 09:34 Dose: 20 mg Documented By: VARUN Senna (Sennosides 8.6 Mg Tablet) 17.2 mg G-TUBE BEDTIME [facility] Last Admin: 12/23/24 20:38 Dose: 17.2 mg Documented By: STEPHON Sertraline HCl (Sertraline Hcl 50 Mg Tablet) 50 mg G-TUBE DAILY [facility] Last Admin: 12/24/24 09:34 Dose: 50 mg Documented By: VARUN Sodium Chloride (0.9 % Sodium Chloride Flush 3 Ml Syringe) 3 ml IVFLUSH QSHIFT [facility] Last Admin: 12/24/24 10:34 Dose: 3 ml Documented By: VARUN Vitamin D (Cholecalciferol (Vitamin D3) 25 Mcg Tablet) 50 mcg G-TUBE DAILY [facility] Last Admin: 12/24/24 09:33 Dose: 50 mcg Documented By: VARUN Labs 12/22/24 07:54 12/24/24 07:46 Labs: Laboratory Results - last 24 hr 12/24/24 12/24/24 07:46 13:06 Hold Purple Top SEE NOTE Estim Creat Clear Calc 178.5 Estimated GFR > 60 Random Vancomycin 15.0 Microbiology Microbiology Results: Microbiology 12/22/24 11:51 Blood Culture - Preliminary Blood - Venous No growth after 48 hours. 12/22/24 11:50 Blood Culture - Preliminary Blood - Venous No growth after 48 hours. 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 admitted to the hospital for treatment and further evaluation of CAMRYN and sepsis in the setting of acute UTI and acute bibasilar pneumonia, status post PEG tube placement during previous hospitalization. Acute purulent cellulitis around G tube site On IV vancomycin started 12/22, blood culture showed no growth, no fevers will transition to antibiotics via G-tube Acute on chronic hypoxic respiratory failure, due to significant neurologic disorder unable to clear secretion with recurrent aspiration pneumonias therefore underwent tracheostomy tube placement on December 17, on trach collar Blood, bronch and urine culture negative, Completed IV zosyn abx course for aspiration pna Being followed by respiratory therapy/trach valve in place Bronchial washings: Corneybacterium and yeast. Discussed with ID and likely contamination. Episode of SVT in ICU/recurrent sinus tach started on metoprolol 12.5 b.i.d.CTA chest 12/02 showed no PE, echo 10/2024 with mildly reduced EF 50-55%, otherwise within normal limits Acute UTI with sepsis urine culture positive for enterobacter sensitive only to gentamicin and Bactrim and resistant to cefepime/blood cultures negative times 48 hours/WBC trending down Finished course of Bactrim Acute anemia: Hemoglobin improved after 1 unit of packed RBC Dysphagia with recurrent aspiration pneumonia Status post PEG tube placement tolerating G-tube feedings. 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 Will discuss with Neurology regarding continued use of prednisone Mood disorder continue Zoloft CAMRYN s/p IV fluids creatinine normalized continue water flushes Q 8 hours Lines: Right IJ TLC Competency eval pending Prophylaxis: Lovenox,prilosec Disposition to rehab facility Reason for continued hospitalization: IV antibiotics, safe disposition Quality Stroke Does the patient have a stroke diagnosis?: No VTE Prior VTE?: No VTE Risk Level:: Medical - moderate - high VTE Device Contraindication: Treatment Not Indicated VTE Drug Contraindication: N/A - Med Ordered
[2024-12-24 15:17] VITALS: BP 154/89; PULSE 95; RESP 16; TEMP 37.2; O2SAT 95
--- NOTE | 2024-12-24 15:49 | MHC.CM.PN ---
EMR reviewed and per MD rounds, pt is not medically cleared for discharge, awaiting LTACH bed offer from [facility].
[2024-12-24 19:19] VITALS: BP 137/92; PULSE 107; RESP 20; TEMP 37.1; O2SAT 98
[2024-12-24] MEDS: Enoxaparin Sodium 40 MG/0.4 ML SYRINGE SUBCUT (22:16)
[2024-12-24] MEDS: Sennosides 8.6 MG TABLET 17.2 MG G-TUBE (22:16)
[2024-12-24 23:26] VITALS: BP 126/74; PULSE 94; RESP 17; TEMP 36.5; O2SAT 100
[2024-12-25 03:26] VITALS: BP 118/74; PULSE 116; RESP 16; TEMP 36.3; O2SAT 93
[2024-12-25] MEDS: Acetaminophen 325 MG TABLET 650 MG G-TUBE ×2 (03:36→15:50)
[2024-12-25] MEDS: vancomycin HCL 1,250 MG in 0.9 % Sodium Chloride 250 ML 166.7 MG IV (03:37)
[2024-12-25 07:53] VITALS: BP 133/75; PULSE 115; TEMP 36.3; O2SAT 94
[2024-12-25 08:12] LABS: Hematocrit 29.4 % (42.0-52.0); Hemoglobin 9.1 g/dl (14.0-18.0); Mean Corpuscular Hemoglobin 24.3 pg (27.0-33.0); Mean Corpuscular Volume 78.6 fL (80.0-98.0); Mean Platelet Volume 11.4 fL (9.4-12.4); Platelet Count 472 X10*3/uL (160-400); Red Blood Count 3.74 X10*6/uL (4.60-5.80); Red Cell Distribution Width 19.5 % (11.0-16.0); White Blood Count 21.5 X10*3/uL (4.8-10.8)
[2024-12-25 09:08] LABS: Anion Gap 13 (12-20); Blood Urea Nitrogen 12 mg/dL (9-16); Calcium 8.9 mg/dL (8.4-10.2); Carbon Dioxide 27 mmol/L (22-29); Chloride 104 mmol/L (96-108); Creatinine Clr Calc Pharmacy 192.5; Estimated Glomerular Filt Rate > 60; Glucose Random 90 mg/dL (60-115); Potassium 2.9 mmol/L (3.3-5.1); Sodium 141 mmol/L (135-145)
[2024-12-25] MEDS: Metoprolol Tartrate 12.5 MG HALFTAB PO ×2 (09:31→22:12)
[2024-12-25] MEDS: Cholecalciferol (Vitamin D3) 25 MCG TABLET 50 MCG G-TUBE (09:31)
[2024-12-25] MEDS: Sertraline HCL 50 MG TABLET G-TUBE (09:31)
[2024-12-25] MEDS: predniSONE 20 MG TABLET PO (09:31)
[2024-12-25] MEDS: Cyclobenzaprine HCl 10 MG TABLET G-TUBE ×3 (09:31→22:11)
[2024-12-25] MEDS: 0.9 % Sodium Chloride Flush 3 ML SYRINGE IVFLUSH ×2 (09:32→15:51)
[2024-12-25] MEDS: Mupirocin 2 % Oint 22 GM TUBE 1 APPL TOPICAL ×3 (09:42→21:55)
[2024-12-25] MEDS: LORazepam 0.5 MG TABLET PO ×2 (11:09→22:12)
[2024-12-25] MEDS: oxyCODONE HCl Immed Release 5 MG TABLET PO ×3 (11:09→22:13)
[2024-12-25] MEDS: Omeprazole/Na Bicarb Oral Susp 20 MG/10 ML UD Cup G-TUBE (11:09)
[2024-12-25] MEDS: Potassium Chloride Packet 20 MEQ PACKET 60 MEQ PO (11:09)
[2024-12-25 11:52] VITALS: BP 104/84; PULSE 109; RESP 24; TEMP 36.9; O2SAT 97
--- NOTE | 2024-12-25 13:48 | P.PNIM_ITS ---
Subjective Subjective Date of Service: 12/26/24 Interval History: Trying to communicate very difficult to understand /noted to have intermittent tachycardia No acute events overnight. Review of Systems Unable to obtain due to speech impairment/trach collar Physical Exam 2 Vital Signs: Vital Signs: Last Vital Signs Temp 98.4 F 12/25/24 11:52 Pulse 109 H 12/25/24 11:52 Resp 24 H 12/25/24 11:52 BP 104/84 12/25/24 11:52 Pulse Ox 97 12/25/24 11:52 O2 Del Method Trach Collar 12/25/24 11:52 O2 Flow Rate 10 12/25/24 11:52 FiO2 35 12/25/24 03:26 Oxygen Flow Rate 6 12/02/24 12:11 BMI result Body Mass Index 23.9 Const: Other: Gen: quadriparesis , no respiratory distress Neck: Trach collar in place Lungs: diminished, rhonchi Heart: regular rate and rhythm, no murmurs Abd: soft, non-tender, non-distended, peg in place, no surrounding erythema : suprapubic catheter, clear urine Ext: no edema Skin: warm/well-perfused Neuro: quadraparesis, Objective Data Active Medications Acetaminophen (Acetaminophen 325 Mg Tablet) 650 mg G-TUBE Q6H PRN PRN Reason: Pain, Mild 1-3,fever,headache Last Admin: 12/25/24 03:36 Dose: 650 mg Documented By: MOISES Chlorhexidine Gluconate (Chlorhexidine Gluc Oral Rinse 15 Ml Mouthwash) 15 ml BUCCAL TID [facility] Last Admin: 12/25/24 09:28 Dose: Not Given Documented By: SIDDHARTHA Non-Admin Reason: icu order Cyclobenzaprine HCl (Cyclobenzaprine Hcl 10 Mg Tablet) 10 mg G-TUBE TID [facility] Last Admin: 12/25/24 09:31 Dose: 10 mg Documented By: SIDDHARTHA Enoxaparin Sodium (Enoxaparin Sodium 40 Mg/0.4 Ml Syringe) 40 mg SUBCUT Q24H [facility] Last Admin: 12/24/24 22:16 Dose: 40 mg Documented By: MOISES Glycopyrrolate (Glycopyrrolate 0.2 Mg/Ml Vial) 0.1 mg IVPUSH Q4H PRN PRN Reason: secretions Last Admin: 12/24/24 22:17 Dose: 0.1 mg Documented By: MOISES Lorazepam (Lorazepam 0.5 Mg Tablet) 0.5 mg PO BID [facility] Last Admin: 12/25/24 11:09 Dose: 0.5 mg Documented By: ALINA Magnesium Hydroxide (Milk Of Magnesia 30 Ml Oral.Susp) 30 ml G-TUBE DAILY PRN PRN Reason: Constipation Metoprolol Tartrate (Metoprolol Tartrate 12.5 Mg Halftab) 12.5 mg PO BID [facility]; Protocol Last Admin: 12/25/24 09:31 Dose: 12.5 mg Documented By: SIDDHARTHA Mupirocin (Mupirocin 2 % Oint 22 Gm Tube) 1 appl TOPICAL TID [facility]; Protocol Last Admin: 12/25/24 09:42 Dose: 1 appl Documented By: SIDDHARTHA Omeprazole (Omeprazole/Na Bicarb Oral Susp 20 Mg/10 Ml Ud Cup) 20 mg G-TUBE DAILY@0630 [facility] Last Admin: 12/25/24 11:09 Dose: 20 mg Documented By: ALINA Ondansetron HCl (Ondansetron Hcl 4 Mg/2 Ml Vial) 4 mg IVPUSH Q8H PRN PRN Reason: Nausea and Vomiting Oxycodone HCl (Oxycodone Hcl Immed Release 5 Mg Tablet) 5 mg PO TID [facility] Last Admin: 12/25/24 11:09 Dose: 5 mg Documented By: ALINA Prednisone (Prednisone 20 Mg Tablet) 20 mg PO DAILY [facility] Last Admin: 12/25/24 09:31 Dose: 20 mg Documented By: SIDDHARTHA Senna (Sennosides 8.6 Mg Tablet) 17.2 mg G-TUBE BEDTIME [facility] Last Admin: 12/24/24 22:16 Dose: 17.2 mg Documented By: MOISES Sertraline HCl (Sertraline Hcl 50 Mg Tablet) 50 mg G-TUBE DAILY [facility] Last Admin: 12/25/24 09:31 Dose: 50 mg Documented By: SIDDHARTHA Sodium Chloride (0.9 % Sodium Chloride Flush 3 Ml Syringe) 3 ml IVFLUSH QSHIFT [facility] Last Admin: 12/25/24 09:32 Dose: 3 ml Documented By: SIDDHARTHA Vitamin D (Cholecalciferol (Vitamin D3) 25 Mcg Tablet) 50 mcg G-TUBE DAILY [facility] Last Admin: 12/25/24 09:31 Dose: 50 mcg Documented By: SIDDHARTHA Labs 12/25/24 07:40 12/26/24 06:17 Labs: Laboratory Results - last 24 hr 12/25/24 07:40 MCV 78.6 L MCH 24.3 L MCHC 31.0 RDW 19.5 H Plt Count 472 H MPV 11.4 Absolute Nucleated RBC 0.000 Nucleated RBC % (auto) 0.0 Anion Gap 13 Estim Creat Clear Calc 192.5 Estimated GFR > 60 Random Glucose 90 Calcium 8.9 D Microbiology Microbiology Results: Microbiology 12/22/24 11:51 Blood Culture - Preliminary Blood - Venous No growth after 48 hours. 12/22/24 11:50 Blood Culture - Preliminary Blood - Venous No growth after 48 hours. 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 admitted to the hospital for treatment and further evaluation of CAMRYN and sepsis in the setting of acute UTI and acute bibasilar pneumonia, status post PEG tube placement during previous hospitalization. Acute purulent cellulitis around G tube site resolved s/p iv abx Acute hypokalemia will replete and follow labs Chronic leukocytosis due to steroids Acute on chronic hypoxic respiratory failure, due to significant neurologic disorder unable to clear secretion with recurrent aspiration pneumonias therefore underwent tracheostomy tube placement on December 17, on trach collar Blood, bronch and urine culture negative, Completed IV zosyn abx course for aspiration pna Being followed by respiratory therapy/trach valve in place Bronchial washings: Corneybacterium and yeast. Discussed with ID and likely contamination. Episode of SVT in ICU/recurrent sinus tach started on metoprolol 12.5 b.i.d.CTA chest 12/02 showed no PE, echo 10/2024 with mildly reduced EF 50-55%, otherwise within normal limits Persistent tachycardia likely due to anxiety will add Ativan Acute UTI with sepsis urine culture positive for enterobacter sensitive only to gentamicin and Bactrim and resistant to cefepime Finished course of Bactrim Acute anemia: Hemoglobin improved after 1 unit of packed RBC Dysphagia with recurrent aspiration pneumonia Status post PEG tube placement tolerating G-tube feedings. 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 Will discuss with Neurology regarding continued use of prednisone Will add oxycodone/Ativan and as needed morphine Mood disorder continue Zoloft CAMRYN s/p IV fluids creatinine normalized continue water flushes Q 8 hours Lines: Right IJ TLC Competency eval seen by psych on medical decision12/14 and they deemed patient not competent to make medical decision, will invoke healthcare proxy Shadi Armas . Prophylaxis: Lovenox,prilosec Disposition to rehab facility Reason for continued hospitalization: safe disposition Quality Stroke Does the patient have a stroke diagnosis?: No VTE Prior VTE?: No VTE Risk Level:: Medical - moderate - high VTE Device Contraindication: Treatment Not Indicated VTE Drug Contraindication: N/A - Med Ordered
[2024-12-25 15:09] VITALS: BP 135/79; PULSE 118; TEMP 37.2; O2SAT 94
[2024-12-25] MEDS: Glycopyrrolate 0.2 MG/ML VIAL 0.1 MG IVPUSH (15:50)
[2024-12-25 19:53] VITALS: BP 134/87; PULSE 109; RESP 17; TEMP 36.2; O2SAT 96
[2024-12-25] MEDS: Enoxaparin Sodium 40 MG/0.4 ML SYRINGE SUBCUT (22:12)
[2024-12-25] MEDS: Sennosides 8.6 MG TABLET 17.2 MG G-TUBE (22:12)
[2024-12-25 23:20] VITALS: BP 131/86; PULSE 94; RESP 14; TEMP 36.7; O2SAT 100
[2024-12-26] VITALS (19 sets, daily range): BP systolic 102–157; BP diastolic 55–97; PULSE 94–151; RESP 2–36; TEMP 34.6–37.4; O2SAT 91–100
--- NOTE | 2024-12-26 | ECG_ITS ---
Test Reason : tachycardia Blood Pressure : */* mmHG Vent. Rate : 153 BPM Atrial Rate : 153 BPM P-R Int : 132 ms QRS Dur : 70 ms QT Int : 318 ms P-R-T Axes : 81 -27 86 degrees QTcB Int : 507 ms Sinus tachycardia Anterior infarct , age undetermined T wave abnormality, consider lateral ischemia Abnormal ECG When compared with ECG of 04-Dec-2024 04:01, Vent. rate has increased by 53 bpm Referred By: Sherry Bazzi Electronically Signed By: Jim Wong
[2024-12-26] MEDS: Omeprazole/Na Bicarb Oral Susp 20 MG/10 ML UD Cup G-TUBE (05:32)
[2024-12-26 08:13] LABS: Blood Urea Nitrogen 12 mg/dL (9-16); Calcium 9.1 mg/dL (8.4-10.2); Creatinine Clr Calc Pharmacy 178.5; Estimated Glomerular Filt Rate > 60; Glucose Random 109 mg/dL (60-115)
[2024-12-26 08:21] LABS: Anion Gap 15 (12-20); Carbon Dioxide 28 mmol/L (22-29); Chloride 102 mmol/L (96-108); Potassium 3.6 mmol/L (3.3-5.1); Sodium 141 mmol/L (135-145)
[2024-12-26] MEDS: Cholecalciferol (Vitamin D3) 25 MCG TABLET 50 MCG G-TUBE (08:59)
[2024-12-26] MEDS: predniSONE 5 MG TABLET 15 MG PO (08:59)
[2024-12-26] MEDS: LORazepam 0.5 MG TABLET PO ×2 (08:59→15:56)
[2024-12-26] MEDS: Glycopyrrolate 0.2 MG/ML VIAL 0.1 MG IVPUSH ×2 (08:59→15:59)
[2024-12-26] MEDS: Metoprolol Tartrate 12.5 MG HALFTAB PO (09:00)
[2024-12-26] MEDS: Sertraline HCL 50 MG TABLET G-TUBE (09:00)
[2024-12-26] MEDS: oxyCODONE HCl Immed Release 5 MG TABLET PO ×3 (09:00→17:02)
[2024-12-26] MEDS: Cyclobenzaprine HCl 10 MG TABLET G-TUBE ×2 (09:00→15:56)
[2024-12-26] MEDS: Mupirocin 2 % Oint 22 GM TUBE 1 APPL TOPICAL ×3 (09:02→20:22)
--- NOTE | 2024-12-26 11:45 | HO.PM.IMPN ---
Subjective Subjective Date of Service: 12/26/24 Interval History: Persistent copious secretions requiring suctioning Heart rate improved since yesterday with the addition of Ativan and oxycodone, but remains greater than 110 Difficult to understand speech Review of Systems Limited review of system due to speech impairment/trach Physical Exam Vital Signs: Vital Signs: Last Vital Signs Temp 97.4 F 12/26/24 07:54 Pulse 111 H 12/26/24 07:54 Resp 22 H 12/26/24 07:54 BP 134/85 12/26/24 07:54 Pulse Ox 94 12/26/24 07:54 O2 Del Method Room Air 12/26/24 07:54 O2 Flow Rate 11 12/25/24 15:09 FiO2 35 12/25/24 03:26 Oxygen Flow Rate 6 12/02/24 12:11 BMI result Body Mass Index 23.9 Const: Other: Gen: quadriparesis , no respiratory distress Neck: Trach collar in place Lungs: diminished, rhonchi Heart: regular rate and rhythm, no murmurs Abd: soft, non-tender, non-distended, peg in place, no surrounding erythema : suprapubic catheter, clear urine Ext: no edema Skin: warm/well-perfused Neuro: quadraparesis, Objective Data Active Medications Acetaminophen (Acetaminophen 325 Mg Tablet) 650 mg G-TUBE Q6H PRN PRN Reason: Pain, Mild 1-3,fever,headache Last Admin: 12/25/24 15:50 Dose: 650 mg Documented By: ALINA Chlorhexidine Gluconate (Chlorhexidine Gluc Oral Rinse 15 Ml Mouthwash) 15 ml BUCCAL TID [facility] Last Admin: 12/26/24 09:06 Dose: Not Given Documented By: GARETH Non-Admin Reason: unable to fallow commands/ rinse Cyclobenzaprine HCl (Cyclobenzaprine Hcl 10 Mg Tablet) 10 mg G-TUBE TID [facility] Last Admin: 12/26/24 09:00 Dose: 10 mg Documented By: GARETH Enoxaparin Sodium (Enoxaparin Sodium 40 Mg/0.4 Ml Syringe) 40 mg SUBCUT Q24H [facility] Last Admin: 12/25/24 22:12 Dose: 40 mg Documented By: MOISES Glycopyrrolate (Glycopyrrolate 0.2 Mg/Ml Vial) 0.1 mg IVPUSH Q4H PRN PRN Reason: secretions Last Admin: 12/26/24 08:59 Dose: 0.1 mg Documented By: GARETH Lorazepam (Lorazepam 0.5 Mg Tablet) 0.5 mg PO BID [facility] Last Admin: 12/26/24 08:59 Dose: 0.5 mg Documented By: GARETH Magnesium Hydroxide (Milk Of Magnesia 30 Ml Oral.Susp) 30 ml G-TUBE DAILY PRN PRN Reason: Constipation Metoprolol Tartrate (Metoprolol Tartrate 12.5 Mg Halftab) 12.5 mg PO BID [facility]; Protocol Last Admin: 12/26/24 09:00 Dose: 12.5 mg Documented By: GARETH Mupirocin (Mupirocin 2 % Oint 22 Gm Tube) 1 appl TOPICAL TID [facility]; Protocol Last Admin: 12/26/24 09:02 Dose: 1 appl Documented By: GARETH Omeprazole (Omeprazole/Na Bicarb Oral Susp 20 Mg/10 Ml Ud Cup) 20 mg G-TUBE DAILY@0630 [facility] Last Admin: 12/26/24 05:32 Dose: 20 mg Documented By: MOISES Ondansetron HCl (Ondansetron Hcl 4 Mg/2 Ml Vial) 4 mg IVPUSH Q8H PRN PRN Reason: Nausea and Vomiting Oxycodone HCl (Oxycodone Hcl Immed Release 5 Mg Tablet) 5 mg PO TID [facility] Last Admin: 12/26/24 09:00 Dose: 5 mg Documented By: GARETH Prednisone (Prednisone 5 Mg Tablet) 15 mg PO DAILY [facility] Last Admin: 12/26/24 08:59 Dose: 15 mg Documented By: GARETH Senna (Sennosides 8.6 Mg Tablet) 17.2 mg G-TUBE BEDTIME [facility] Last Admin: 12/25/24 22:12 Dose: 17.2 mg Documented By: MOISES Sertraline HCl (Sertraline Hcl 50 Mg Tablet) 50 mg G-TUBE DAILY [facility] Last Admin: 12/26/24 09:00 Dose: 50 mg Documented By: GARETH Sodium Chloride (0.9 % Sodium Chloride Flush 3 Ml Syringe) 3 ml IVFLUSH QSHIFT [facility] Last Admin: 12/26/24 09:02 Dose: Not Given Documented By: GARETH Non-Admin Reason: Unable to Scan Barcode Vitamin D (Cholecalciferol (Vitamin D3) 25 Mcg Tablet) 50 mcg G-TUBE DAILY [facility] Last Admin: 12/26/24 08:59 Dose: 50 mcg Documented By: GARETH Labs 12/25/24 07:40 12/26/24 06:17 Labs: Laboratory Results - last 24 hr 12/26/24 06:17 Anion Gap 15 Estim Creat Clear Calc 178.5 Estimated GFR > 60 Random Glucose 109 Calcium 9.1 Assessment and Plan (1) Weakness: Status: Acute (2) Copious oral secretions: Status: Acute (3) Tachycardia: Status: Acute Plan 39-year-old male with a PMH significant for?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 admitted to the hospital for treatment and further evaluation of CAMRYN and sepsis in the setting of acute UTI and acute bibasilar pneumonia, status post PEG tube placement during previous hospitalization. Acute purulent cellulitis around G tube site resolved s/p iv vanco Acute hypokalemia repleted Chronic leukocytosis due to steroids, no fevers, no distress Acute on chronic hypoxic respiratory failure, due to significant neurologic disorder unable to clear secretion with recurrent aspiration pneumonias therefore underwent tracheostomy tube placement on December 17, on trach collar Blood, bronch and urine culture negative, Completed IV zosyn abx course for aspiration pna Being followed by respiratory therapy/trach valve in place Bronchial washings: Corneybacterium and yeast. Discussed with ID and likely contamination. Requiring oxygen support and frequent suctioning Episode of SVT in ICU/recurrent sinus tach started on metoprolol 12.5 b.i.d.CTA chest 12/02 showed no PE, echo 10/2024 with mildly reduced EF 50-55%, otherwise within normal limits Persistent tachycardia likely due to anxiety/pain added Ativan on 12/25 will increase to t.i.d. and increase dose of oxycodone to qid Acute UTI with sepsis urine culture positive for enterobacter sensitive only to gentamicin and Bactrim and resistant to cefepime Finished course of Bactrim Acute anemia: Hemoglobin improved after 1 unit of packed RBC Dysphagia with recurrent aspiration pneumonia Status post PEG tube placement tolerating G-tube feedings. NMO/MS or other dymyelinating disease Status post recent LP, CSF fluid oligoclonal bands negative likely has demyelinating disease mostly affecting brainstem and spinal cord atypical for diagnosis of multiple sclerosis and neuromyelitis optica, status post IVIG x5 days with suspicion of autoimmune encephalitis, autoimmune CSF panel neg.,on prednisone 20 mg home dose, decrease to 15 mg on 12/25 Continue Rituxan as outpatient as per Neurology, Recommend outpatient follow-up with Neurology. Will discuss with Neurology regarding continued use of prednisone cont. Flexeril tid, oxycodone qid /Ativan tid and as needed morphine Mood disorder continue Zoloft CAMRYN s/p IV fluids creatinine normalized continue water flushes Q 8 hours Lines: Right IJ TLC Competency eval seen by psych on 12/14 and they deemed patient not competent to make medical decision, healthcare proxy lelaked Shadi is HCP. Prophylaxis: Lovenox,prilosec Disposition to rehab facility Reason for continued hospitalization: safe disposition Quality Stroke Does the patient have a stroke diagnosis?: No VTE Prior VTE?: No VTE Risk Level:: Medical - moderate - high VTE Device Contraindication: Treatment Not Indicated VTE Drug Contraindication: N/A - Med Ordered
[2024-12-26] MEDS: Morphine Sulfate 4 MG/ML CARTRIDGE 3 MG IVPUSH ×4 (17:30→21:46)
[2024-12-26 17:33] LABS: Glucose, Whole Blood 121 mg/dL (60-115)
[2024-12-26] MEDS: Morphine Sulfate 2 MG/ML CARTRIDGE 1 MG IVPUSH (17:42)
--- NOTE | 2024-12-26 17:42 | PM.EVENT ---
Event Note Date of Service: 12/26/24 Event Note: FURNITURE UPHOLSTERER for desaturation event down to 40s, copious secretions during suction, despite bagging and multiple attempts for suction continues to desaturate therefore will transfer to ICU for vent. Time Spent With Patient Time: Total time managing care of this patient today ____ minutes.
--- NOTE | 2024-12-26 17:57 | P.EN_ITS ---
Event Note Date of Service: 12/26/24 Event Note: Patient 39 Y M w/ multiple sclerosis c/b paraplegia, neurogenic bladder w/ suprapupic catheter, and dysphagia s/p PEG initially presenting to emergency department on 12/02 w/ urinary tract infection c/b sepsis; on 12/15, developed respiratory failure and intubated, extubated, though w/ persistent recurrent aspiration and ultimately s/p trach on 12/17; hospital course c/b persistent recurrent aspiration, chronic respiratory failure; on 12/26, patient developed a cute on chronic hypoxic respiratory failure, found to have significant secretions, transferred to ICU for ventilator support, empiric antibiotics, and otherwise supportive care Time Spent With Patient Time: Total time managing care of this patient today ____ minutes.
[2024-12-26 18:16] LABS: ABG Base Excess 7.8 mmol/L; ABG HCO3 32 mmol/L (22-26); ABG pCO2 43 mmHg (32-45); ABG pH 7.47 (7.35-7.45); ABG pO2 46 mmHg (83-108)
[2024-12-26] MEDS: Piperacillin Sodium/Tazobactam 4.5 GM in 0.9 % Sodium Chloride 100 ML IV (18:23)
[2024-12-26 18:24] LABS: VBG Base Excess 8.4 mmol/L; VBG HCO3 32 mmol/L (22-26); VBG pCO2 42 mmHg; VBG pH 7.49 (7.32-7.43); VBG pO2 29 mmHg
--- NOTE | 2024-12-26 18:24 | PC.NURSE ---
1700 pt presented with low oxygen saturation level between 70-80s and increased heart between 130-140. MD notified and Respiratory called. After multiple times of suctioning pt saturation remained between 70-80%. Rapid Response was called at 1720. MD at bedside. Morphine administered per DEC . Pt was then transferred to ICU.
[2024-12-26 18:31] LABS: Basophils Absolute Auto 0.1 X10*3/uL (0.0-0.2); Basophils Percent Auto 0.2 % (0-2); Eosinophils Percent Auto 0.1 % (0-4); Lymphocytes Absolute Auto 0.8 X10*3/uL (1.2-4.9); Lymphocytes Percent Auto 2.8 % (20-40); Mean Corpuscular HGB Conc 31.4 g/dl (31.0-36.0); Mean Corpuscular Hemoglobin 24.7 pg (27.0-33.0); Mean Platelet Volume 11.5 fL (9.4-12.4); Monocytes Percent Auto 5.8 % (2-11); PLT CLUMP 1; SCAN SMEAR FLAG 1
[2024-12-26 18:33] LABS: Hematocrit 34.1 % (42.0-52.0); Hemoglobin 10.7 g/dl (14.0-18.0); Imm Gran Abs Auto 0.25 X10*3/uL (0.00-0.03); Imm Gran Pct Auto 0.8 % (0.0-0.4); MANUAL DIFF FLAG SCAN; Mean Corpuscular Volume 78.8 fL (80.0-98.0); Monocytes Absolute Auto 1.7 X10*3/uL (0.1-1.2); Neutrophils Absolute Auto 26.8 x10*3/uL (2.0-8.3); Neutrophils Percent Auto 90.3 % (45-73); Red Blood Count 4.33 X10*6/uL (4.60-5.80); Red Cell Distribution Width 19.9 % (11.0-16.0)
[2024-12-26 18:34] LABS: White Blood Count 29.6 X10*3/uL (4.8-10.8)
[2024-12-26 18:39] LABS: Vancomycin Random 3.7 mcg/mL (15-20)
[2024-12-26 18:40] LABS: Anion Gap 17 (12-20); Blood Urea Nitrogen 12 mg/dL (9-16); Calcium 9.3 mg/dL (8.4-10.2); Carbon Dioxide 26 mmol/L (22-29); Chloride 100 mmol/L (96-108); Creatinine Clr Calc Pharmacy 169.3; Estimated Glomerular Filt Rate > 60; Glucose Random 121 mg/dL (60-115); Magnesium 1.8 mg/dL (1.6-2.6); Potassium 3.8 mmol/L (3.3-5.1); Sodium 139 mmol/L (135-145)
[2024-12-26 18:41] LABS: Platelet Count 462 X10*3/uL (160-400)
[2024-12-26 18:45] LABS: Venous Blood Gas Refer to POC result
[2024-12-26 18:50] LABS: SLIDE REVIEW VERIFIED
[2024-12-26] MEDS: 0.9 % Sodium Chloride Flush 3 ML SYRINGE IVFLUSH (19:14)
[2024-12-26] MEDS: vancomycin HCL 1,500 MG in 0.9 % Sodium Chloride 500 ML 333.33 MG IV (19:20)
--- NOTE | 2024-12-26 19:45 | PHA.PROG ---
Admission Date/Time: December 02, 2024 20:00 Indication: RESPIRATORY INFECTION Weight in k.4 kg Adjusted body weight in Kg: [place] body weight in Kg: Obesity Dosing Indication % IBW: Serum Creatinine - Last 168 Hours 12/22/24 12/23/24 12/24/24 07:54 09:08 07:46 Creatinine 0.62 0.59 0.55 12/25/24 12/26/24 12/26/24 07:40 06:17 18:11 Creatinine 0.51 0.55 0.58 Estimated CrCl and GFR - Last 168 Hours 12/22/24 12/23/24 12/24/24 07:54 09:08 07:46 Estim Creat Clear Calc 158.3 166.4 178.5 Estimated GFR > 60 > 60 > 60 12/25/24 12/26/24 12/26/24 07:40 06:17 18:11 Estim Creat Clear Calc 192.5 178.5 169.3 Estimated GFR > 60 > 60 > 60 Vancomycin Loading Dose: 1500 X 1 Current Vancomycin Dosing Regimen: 1250 MG q12h Vancomycin Monitoring using AUC goal of 400 - 600 range with trough as surrogate marker: 574 Date and Time for next Vancomycin Level to be 12/27 @1800 PATIENTS WAS ON VANCO PREVIOUSLY, LAST DOSE GIVEN 12/24. HAD A RANDOM LEVEL TAKEN TO ENSURE IT IS SAFE TO LOAD PATIENT, LOADED WITH 1500 MG. Vancomycin Trough 16.2 mcg/mL (10.0-20.0) 12/17/24 16:10 Pharmacist Comments on Vancomycin Plan: Vancomycin dosing will take advantage of [employer]! as a clinical decision support tool that uses Bayesian modeling to calculate individual patient's pharmacokinetic parameters and forecast the patient's drug concentration time course with the target goal AUC 24 range of 400 - 600 mg/L/hr.
[2024-12-26] MEDS: Metoprolol Tartrate 5 MG/5 ML VIAL IVPUSH ×2 (19:48→20:22)
[2024-12-26] MEDS: Enoxaparin Sodium 40 MG/0.4 ML SYRINGE SUBCUT (19:54)
[2024-12-26] MEDS: Chlorhexidine Gluc Oral Rinse 15 ML MOUTHWASH BUCCAL (19:55)
[2024-12-26] MEDS: Acetaminophen 1,000 MG/100 ML PIGGYBACK 400 MG IV (20:53)
[2024-12-26] MEDS: LORazepam 2 MG/ML VIAL 1 MG IVPUSH (21:25)
[2024-12-27] VITALS (34 sets, daily range): BP systolic 115–259; BP diastolic 64–91; PULSE 114–133; RESP 16–28; TEMP 34.6–37.3; O2SAT 91–100; BMI 24.1
[2024-12-27] MEDS: Piperacillin Sodium/Tazobactam 4.5 GM in 0.9 % Sodium Chloride 100 ML IV ×2 (00:14→05:48)
[2024-12-27] MEDS: LORazepam 2 MG/ML VIAL 1 MG IVPUSH ×2 (04:36→21:57)
[2024-12-27 05:18] LABS: VBG Base Excess 10.7 mmol/L; VBG HCO3 32 mmol/L (22-26); VBG pCO2 31 mmHg; VBG pH 7.61 (7.32-7.43); VBG pO2 58 mmHg
[2024-12-27 05:20] LABS: Venous Blood Gas Refer to POC result
[2024-12-27 05:32] LABS: Basophils Percent Auto 0.2 % (0-2); Eosinophils Absolute Auto 0.1 X10*3/uL (0.0-0.4); Eosinophils Percent Auto 0.4 % (0-4); Hematocrit 29.5 % (42.0-52.0); Hemoglobin 9.2 g/dl (14.0-18.0); Imm Gran Abs Auto 0.14 X10*3/uL (0.00-0.03); Imm Gran Pct Auto 0.6 % (0.0-0.4); Lymphocytes Absolute Auto 0.8 X10*3/uL (1.2-4.9); Lymphocytes Percent Auto 3.6 % (20-40); MANUAL DIFF FLAG SCAN; Mean Corpuscular HGB Conc 31.2 g/dl (31.0-36.0); Mean Corpuscular Hemoglobin 24.3 pg (27.0-33.0); Mean Platelet Volume 11.7 fL (9.4-12.4); Monocytes Absolute Auto 1.6 X10*3/uL (0.1-1.2); Monocytes Percent Auto 6.9 % (2-11); Neutrophils Absolute Auto 20.4 x10*3/uL (2.0-8.3); Neutrophils Percent Auto 88.3 % (45-73); Platelet Count 355 X10*3/uL (160-400); Red Blood Count 3.78 X10*6/uL (4.60-5.80); Red Cell Distribution Width 19.2 % (11.0-16.0); SCAN SMEAR FLAG 1; White Blood Count 23.1 X10*3/uL (4.8-10.8)
[2024-12-27 05:50] LABS: Albumin Level 3.1 g/dL (3.5-5.0); Anion Gap 14 (12-20); Blood Urea Nitrogen 14 mg/dL (9-16); Calcium 8.8 mg/dL (8.4-10.2); Carbon Dioxide 27 mmol/L (22-29); Chloride 103 mmol/L (96-108); Creatinine Clr Calc Pharmacy 144.4; Estimated Glomerular Filt Rate > 60; Glucose Random 94 mg/dL (60-115); Magnesium 1.9 mg/dL (1.6-2.6); Potassium 3.4 mmol/L (3.3-5.1); Sodium 141 mmol/L (135-145)
[2024-12-27 05:51] LABS: SLIDE REVIEW VERIFIED
--- NOTE | 2024-12-27 06:40 | PC.NURSE ---
Assumed care of this patient at 19:00. Patient seen in the ICU, recently transferred earlier this evening from [facility] for desaturations requiring mechanical ventilation. CXR obtained at shift change showed LLL PNA. Given 1x empiric vancomycin as well as scheduled zosyn per provider orders.? Pt HR sustaining 140-150?s on assuming care. Covering STUDENT SERVICES DEAN Sherry Bazzi notified. EKG ordered and obtained showing sinus tach. 5mg IV metoprolol x2 given with some effectiveness as evidenced by HR improving briefly to 120-130?s. On initial assessment, pt?s skin was hot to the touch, forehead mildly diaphoretic, RR upper 20?s-low 30?s. Patient axillary temp was 99.5. Warehouse Attendant discussed concerns for fever with patient and [employer] request for rectal temp for accurate temperature assessment though pt shook his head side to side and mouthed ?no? to commercial lines underwriter. STUDENT SERVICES DEAN made aware. Pt given 1x IV tylenol, afbrile since, skin normothermic, HR since sustaining 120?s. On lovenox for DVT ppx.??? Pt remains trached #8 shiley cuffed, inflated/vented ACVC settings. Sputum sample and respiratory viral panel obtained and sent to the lab as ordered. Pt c/o trouble breathing in the evening despite prn morphine for dyspnea. STUDENT SERVICES DEAN notified as well as RT. STUDENT [employer] DEAN verbal orders to administer IV morphine for dyspnea as well as IV ativan for anxiety, respectively, given with +effect. RT presented to bedside and peep was reduced to 7.5 from 12.5 per STUDENT SERVICES DEAN request at ~21:45, later to peep of 5 around 23:00. Fio2 weaned from initial 100% in the evening, at present at50% with spo2 maintaining 95% and above. Patient tolerating vent. See trach and vent settings for full assessment details.? Peg tube remains clamped with [employer]UD[employer] DEAN verbal orders to continue to hold tube feeds and water via peg tube due to concern for aspiration.? Suprapubic catheter remains intact and patent. Catheter care provided with IUC wipes. Triad and foam replaced to coccyx stage II. Foams replaced to b/l heels for blanchable redness, heels floated on pillows as pt declined heel protector boots. Patient repositioned q2hr as pt is agreeable (intermittently refuses). Low air loss mattress repositioning system in place. Please see shift assessments, tasks, and MAR for full details. Bed alarm on and safety measures in place. Hourly purposeful rounding enacted. Plan of care continues.
[2024-12-27] MEDS: 0.9 % Sodium Chloride Flush 3 ML SYRINGE IVFLUSH ×3 (08:03→21:47)
[2024-12-27] MEDS: vancomycin HCL 1,250 MG in 0.9 % Sodium Chloride 250 ML 166.67 MG IV (08:05)
[2024-12-27] MEDS: Mupirocin 2 % Oint 22 GM TUBE 1 APPL TOPICAL ×3 (08:05→21:46)
[2024-12-27] MEDS: Chlorhexidine Gluc Oral Rinse 15 ML MOUTHWASH BUCCAL ×3 (08:05→20:48)
[2024-12-27] MEDS: oxyCODONE HCl Immed Release 5 MG TABLET PO (09:47)
[2024-12-27] MEDS: predniSONE 5 MG TABLET 15 MG PO (09:48)
[2024-12-27] MEDS: Metoprolol Tartrate 12.5 MG HALFTAB PO (09:48)
[2024-12-27] MEDS: Cholecalciferol (Vitamin D3) 25 MCG TABLET 50 MCG G-TUBE (09:48)
[2024-12-27 10:53] LABS: Adenovirus PCR Not Detected (Not Detect.); Bordetella parapertussis PCR Not Detected (Not Detect.); Bordetella pertussis PCR Not Detected (Not Detect.); Chlamydia pneumoniae PCR Not Detected (Not Detect.); Coronavirus 229E PCR Not Detected (Not Detect.); Coronavirus HKU1 PCR Not Detected (Not Detect.); Coronavirus NL63 PCR Not Detected (Not Detect.); Coronavirus OC43 PCR Not Detected (Not Detect.); Human metapneumovirus PCR Not Detected (Not Detect.); Influenza A PCR Not Detected (Not Detect.); Influenza B PCR Not Detected (Not Detect.); Mycoplasma pneumoniae PCR Not Detected (Not Detect.); Parainfluenza 1 PCR Not Detected (Not Detect.); Parainfluenza 2 PCR Not Detected (Not Detect.); Parainfluenza 3 PCR Not Detected (Not Detect.); Parainfluenza 4 PCR Not Detected (Not Detect.); RSV PCR Not Detected (Not Detect.); Rhino/Enterovirus PCR Not Detected (Not Detect.)
[2024-12-27] MEDS: Ampicillin Sodium/Sulbactam Na 3 GM in 0.9 % Sodium Chloride 100 ML IV ×3 (10:55→20:48)
--- NOTE | 2024-12-27 11:01 | MHC.CLN ---
F/U DISCUSSED AT ROUNDS WITH MD DAILEY CURRENTLY ON HOLD PT PREVIOUSLY RECEIVED TF FORMULA JEVITY 1.0 AT MAX GOAL RATE 85ML/HR WITH 30ML PROSOURCE X1 PER DAY AND 120ML FREE WATER FLUSHES Q 6 HRS PROVIDED 2222 TOTAL KCALS (FROM FORMULA AND PROSOURCE), 105G TOTAL PROTEIN (1.4G/KG), 2183ML TOTAL WATER FROM FORMULA AND FLUSHES (29.7ML/KG) RECOMMEND SWITCHING FORMULA TO OSMOLITE 1.5 AT MAX GOAL RATE 60ML/HR TO PROVIDE 2160KCALS (29KCALS/KG), 90G PROTEIN (1.2G/KG), 2057ML TOTAL WATER FROM FORMULA AND FLUSHES (28ML/KG) MONITOR TOLERANCE AND LYTES FOLLOWING WITH TEAM
[2024-12-27 11:09] LABS: SARS-CoV-2 PCR Not Detected (Not Detect.)
[2024-12-27 11:41] LABS: Glucose, Whole Blood 108 mg/dL (60-115)
--- NOTE | 2024-12-27 12:38 | P.PNCC_ITS ---
Subjective Subjective Date of Service: 12/27/24 Interval History: 39-year-old gentleman with underlying presumptive multiple sclerosis/neuromyelitis optica, paraplegia, neurogenic bladder status post suprapubic catheter, status post PEG, admitted on 12/02/2024 with suprapubic catheter occlusion causing urinary retention and acute UTI, and also hypoxic respiratory failure secondary to recurrent pulmonary aspiration. Hospital course significant for recurrent pulmonary aspiration and MRSA hypoxemia requiring intubation and transferred to intensive care unit on 12/15/2024, status post tracheostomy on 12/17/2024 when transferred to telemetry on 12/20/2024. On 12/26/2024 patient with recurrent pulmonary aspiration resulting in acute hypoxic respiratory failure requiring re-initiation ventilatory support through tracheostomy and transfer to intensive care unit. No events overnight. FiO2 requirements are improving. Tolerating pressure support. Critical Care Time (minutes): 60 Physical Exam 2 Vital Signs: Vital Signs: Last Vital Signs Temp 98.2 F 12/27/24 12:00 Pulse 119 H 12/27/24 12:00 Resp 19 12/27/24 12:00 BP 136/74 12/27/24 12:00 Pulse Ox 96 12/27/24 12:00 O2 Del Method Mechanical Ventil ation 12/27/24 12:00 O2 Flow Rate 9 12/26/24 15:57 FiO2 40 12/27/24 12:24 Oxygen Flow Rate 6 12/02/24 12:11 BMI result Body Mass Index 24.1 Const: General: no acute distress, alert and awake Eyes: Sclerae: sclerae normal EOM: EOMs intact bilaterally Neck: Neck: Yes no lymphadenopathy, Yes trachea midline, Yes supple and Yes tracheostomy present ( On vent) Resp: Auscultation: rales ( bibasilar) Cardio: Rate: tachycardic Rhythm: regular rhythm Heart sounds: no gallops, no murmurs and no rubs GI: Inspection: Yes G-tube present Palpation (GI): Soft to palpation and Other GI palpation findings present ( Nontender) Auscultation: normal bowel sounds Extrem: General: Yes no pedal edema, No clubbing and No cyanosis Objective Data Labs 12/27/24 05:14 12/27/24 05:14 Labs: Laboratory Results - last 24 hr 12/26/24 12/26/24 12/26/24 17:28 18:10 18:11 WBC 29.6 H RBC 4.33 L Hgb 10.7 L Hct 34.1 L MCV 78.8 L MCH 24.7 L MCHC 31.4 RDW 19.9 H Plt Count 462 H MPV 11.5 Immature Gran % (Auto) 0.8 H Neut % (Auto) 90.3 H Lymph % (Auto) 2.8 L [place] % (Auto) 5.8 Eos % (Auto) 0.1 Baso % (Auto) 0.2 Lymph # (Auto) 0.8 L [place] # (Auto) 1.7 H Eos # (Auto) 0.0 Baso # (Auto) 0.1 Abs Immat Gran (auto) 0.25 H Absolute Neuts (auto) 26.8 H Absolute Nucleated RBC 0.000 Nucleated RBC % (auto) 0.0 Smear Tech's Comments VERIFIED O2 Saturation 77.0 ABG pH at Pt Temp 7.47 H ABG pCO2 at Pt Temp 43 ABG pO2 at Pt Temp 46 L* ABG HCO3 32 H ABG Base Excess (Actual) 7.8 VBG pH VBG pCO2 VBG pO2 VBG HCO3 VBG O2 Saturation VBG Base Excess Sodium 139 Potassium 3.8 Chloride 100 Carbon Dioxide 26 Anion Gap 17 BUN 12 Creatinine 0.58 Estim Creat Clear Calc 169.3 Estimated GFR > 60 POC Glucose 121 H Random Glucose 121 H Calcium 9.3 Phosphorus 3.0 Magnesium 1.8 Albumin Random Vancomycin 3.7 L Respiratory Panel Caceres Adenovirus (Rapid PCR) B.pert (TEM-PCR) B.parapertussis DNA PCR C. pneumoniae DNA (PCR) Coronavirus OC43 (PCR) Coronavirus HKU1 (PCR) Coronavirus 229E (PCR) Coronavirus NL63 (PCR) Human Metapneumovir PCR Influenza A (RT-PCR) Influenza B (RT-PCR) M. pneumoniae (PCR) Parainfluenza 1 (PCR) Parainfluenza 2 (PCR) Parainfluenza 3 (PCR) Parainfluenza 4 (PCR) RSV (PCR) Entero/Rhino (PCR) SARS-CoV-2 RNA (RT-PCR) 12/26/24 12/26/24 12/27/24 18:18 22:45 05:14 WBC 23.1 H RBC 3.78 L Hgb 9.2 L Hct 29.5 L MCV 78.0 L MCH 24.3 L MCHC 31.2 RDW 19.2 H Plt Count 355 MPV 11.7 Immature Gran % (Auto) 0.6 H Neut % (Auto) 88.3 H Lymph % (Auto) 3.6 L [place] % (Auto) 6.9 Eos % (Auto) 0.4 Baso % (Auto) 0.2 Lymph # (Auto) 0.8 L [place] # (Auto) 1.6 H Eos # (Auto) 0.1 Baso # (Auto) 0.0 Abs Immat Gran (auto) 0.14 H Absolute Neuts (auto) 20.4 H Absolute Nucleated RBC 0.000 Nucleated RBC % (auto) 0.0 Smear Tech's Comments VERIFIED O2 Saturation ABG pH at Pt Temp ABG pCO2 at Pt Temp ABG pO2 at Pt Temp ABG HCO3 ABG Base Excess (Actual) VBG pH 7.49 H 7.61 H* VBG pCO2 42 31 VBG pO2 29 58 VBG HCO3 32 H 32 H VBG O2 Saturation 42.0 95.0 VBG Base Excess 8.4 10.7 Sodium 141 Potassium 3.4 Chloride 103 Carbon Dioxide 27 Anion Gap 14 BUN 14 Creatinine 0.68 Estim Creat Clear Calc 144.4 Estimated GFR > 60 POC Glucose Random Glucose 94 Calcium 8.8 Phosphorus 3.0 Magnesium 1.9 Albumin 3.1 L Random Vancomycin Respiratory Panel Caceres See Note Adenovirus (Rapid PCR) Not Detected B.pert (TEM-PCR) Not Detected B.parapertussis DNA PCR Not Detected C. pneumoniae DNA (PCR) Not Detected Coronavirus OC43 (PCR) Not Detected Coronavirus HKU1 (PCR) Not Detected Coronavirus 229E (PCR) Not Detected Coronavirus NL63 (PCR) Not Detected Human Metapneumovir PCR Not Detected Influenza A (RT-PCR) Not Detected Influenza B (RT-PCR) Not Detected M. pneumoniae (PCR) Not Detected Parainfluenza 1 (PCR) Not Detected Parainfluenza 2 (PCR) Not Detected Parainfluenza 3 (PCR) Not Detected Parainfluenza 4 (PCR) Not Detected RSV (PCR) Not Detected Entero/Rhino (PCR) Not Detected SARS-CoV-2 RNA (RT-PCR) Not Detected 12/27/24 11:36 WBC RBC Hgb Hct MCV MCH MCHC RDW Plt Count MPV Immature Gran % (Auto) Neut % (Auto) Lymph % (Auto) [place] % (Auto) Eos % (Auto) Baso % (Auto) Lymph # (Auto) [place] # (Auto) Eos # (Auto) Baso # (Auto) Abs Immat Gran (auto) Absolute Neuts (auto) Absolute Nucleated RBC Nucleated RBC % (auto) Smear Tech's Comments O2 Saturation ABG pH at Pt Temp ABG pCO2 at Pt Temp ABG pO2 at Pt Temp ABG HCO3 ABG Base Excess (Actual) VBG pH VBG pCO2 VBG pO2 VBG HCO3 VBG O2 Saturation VBG Base Excess Sodium Potassium Chloride Carbon Dioxide Anion Gap BUN Creatinine Estim Creat Clear Calc Estimated GFR POC Glucose 108 Random Glucose Calcium Phosphorus Magnesium Albumin Random Vancomycin Respiratory Panel Caceres Adenovirus (Rapid PCR) B.pert (TEM-PCR) B.parapertussis DNA PCR C. pneumoniae DNA (PCR) Coronavirus OC43 (PCR) Coronavirus HKU1 (PCR) Coronavirus 229E (PCR) Coronavirus NL63 (PCR) Human Metapneumovir PCR Influenza A (RT-PCR) Influenza B (RT-PCR) M. pneumoniae (PCR) Parainfluenza 1 (PCR) Parainfluenza 2 (PCR) Parainfluenza 3 (PCR) Parainfluenza 4 (PCR) RSV (PCR) Entero/Rhino (PCR) SARS-CoV-2 RNA (RT-PCR) Microbiology Microbiology Results: Microbiology 12/26/24 19:21 Sputum - Suctioned Gram Stain - Final 12/22/24 11:51 Blood - Venous Blood Culture - Preliminary No growth after 48 hours. 12/22/24 11:50 Blood - Venous Blood Culture - Preliminary No growth after 48 hours. 12/15/24 04:37 Blood - Venous Blood Culture - Final No growth after 5 days. 12/15/24 04:37 Blood - Venous Blood Culture - Final No growth after 5 days. 12/17/24 11:40 Bronchial Washings Gram Stain - Final 12/17/24 11:40 Bronchial Washings - Final Corynebacterium species Yeast 12/15/24 14:07 Urine Catheterized - Villatoro Catheter Urine Culture - Final Trichosporon asahii 12/15/24 10:30 Sputum - Suctioned Gram Stain - Final 12/15/24 10:30 Sputum - Suctioned Sputum Culture - Final 12/02/24 12:46 Blood - Venous Blood Culture - Final No growth after 5 days. 12/02/24 12:46 Blood - Venous Blood Culture - Final No growth after 5 days. 12/02/24 17:23 Urine Catheterized - Villatoro Catheter Urine Culture - Final Enterobacter cloacae complex Progress Note: A&P Assessment and plan (1) Dysphagia: Status: Acute (2) Pulmonary aspiration: Status: Acute (3) Neurogenic urinary bladder disorder: Status: Acute (4) Demyelinating disease: Status: Acute (5) Acute respiratory failure with hypoxia: Status: Acute Plan Assessment: 39-year-old gentleman with underlying demyelinating disease with neurogenic bladder status post suprapubic catheter, dysphagia status post PEG admitted with suprapubic catheter dysfunction causing UTI, further complicated by recurrent pulmonary aspiration resulting in acute hypoxic respiratory failure requiring intubation, now status post tracheostomy with continuation of recurrent pulmonary aspiration Plan: Neuro: underlying demyelinating disorder Cardiac: No acute issues. Pulmonary: acute hypoxic respiratory failure secondary to recurrent pulmonary aspiration, now status post tracheostomy, continue to titrate off ventilatory support as tolerated. Renal: No acute issues. Endo: No acute issues. GI: No acute issues. ID: Pulmonary aspiration pneumonitis versus pneumonia, continue empiric antibiotic coverage. Heme/Onc: No acute issues. Psych: No acute issues. Miscellaneous: No acute issues. Prophylaxis: Heparin, PPI Diet: tube feeds Critical care time spent: 60 minutes Quality Stroke Does the patient have a stroke diagnosis?: No VTE Prior VTE?: No VTE Risk Level:: Medical - moderate - high VTE Device Contraindication: Treatment Not Indicated VTE Drug Contraindication: N/A - Med Ordered
--- NOTE | 2024-12-27 13:35 | MHC.CM.PN ---
Pt reintubated and transferred to ICU: following aspiration event. On ATB: plan is to wean vent support and continue with trach collar trials. Clinical updates remitted to [facility] - awaiting response on potential transfer date. CM to follow.
[2024-12-27] MEDS: Morphine Sulfate 2 MG/ML CARTRIDGE 1 MG IVPUSH (20:48)
[2024-12-27] MEDS: Enoxaparin Sodium 40 MG/0.4 ML SYRINGE SUBCUT (20:48)
[2024-12-27] MEDS: dexmedeTOMIDidine HCL/NS 400 MCG/100 ML INFUS..BTL 9.24 MCG IVCONT (23:48)
[2024-12-28] VITALS (30 sets, daily range): BP systolic 100–155; BP diastolic 49–88; PULSE 76–119; RESP 16–27; TEMP 35–37.2; O2SAT 88–100; BMI 24.1
[2024-12-28] MEDS: Ampicillin Sodium/Sulbactam Na 3 GM in 0.9 % Sodium Chloride 100 ML IV (04:11)
[2024-12-28 05:43] LABS: VBG Base Excess 10.8 mmol/L; VBG HCO3 31 mmol/L (22-26); VBG pCO2 30 mmHg; VBG pH 7.63 (7.32-7.43); VBG pO2 44 mmHg
[2024-12-28 05:53] LABS: Basophils Percent Auto 0.2 % (0-2); Eosinophils Absolute Auto 0.1 X10*3/uL (0.0-0.4); Eosinophils Percent Auto 0.5 % (0-4); Hematocrit 29.2 % (42.0-52.0); Hemoglobin 8.8 g/dl (14.0-18.0); Imm Gran Abs Auto 0.11 X10*3/uL (0.00-0.03); Imm Gran Pct Auto 0.6 % (0.0-0.4); Lymphocytes Absolute Auto 1.1 X10*3/uL (1.2-4.9); Lymphocytes Percent Auto 6.4 % (20-40); MANUAL DIFF FLAG SCAN; Mean Corpuscular HGB Conc 30.1 g/dl (31.0-36.0); Mean Corpuscular Volume 79.6 fL (80.0-98.0); Mean Platelet Volume 12.1 fL (9.4-12.4); Monocytes Percent Auto 11.7 % (2-11); Neutrophils Absolute Auto 13.9 x10*3/uL (2.0-8.3); Neutrophils Percent Auto 80.6 % (45-73); Platelet Count 337 X10*3/uL (160-400); Red Blood Count 3.67 X10*6/uL (4.60-5.80); Red Cell Distribution Width 18.7 % (11.0-16.0); SCAN SMEAR FLAG 1; White Blood Count 17.2 X10*3/uL (4.8-10.8)
[2024-12-28 06:06] LABS: Venous Blood Gas Refer to POC result
--- NOTE | 2024-12-28 06:08 | PC.NURSE ---
Upon initial assessment at 1900- pt alert, communicating by mouthing words, supervisor char house utilized per pt request. Pt admittedly anxious, HOURLY ASSOCIATE Lakia notified- new order for Ativan 1 mg IVP x1, given with no effect per pt. New order for precedex gtt, titrated per MAR- pt restful throughout evening. See EMR/flowsheet for further details.
[2024-12-28 06:16] LABS: Alanine Aminotransferase 33 U/L (0-40); Anion Gap 17 (12-20); Aspartate Amino Transferase 36 U/L (5-37); Bilirubin Total 0.4 mg/dL (0.0-1.0); Blood Urea Nitrogen 14 mg/dL (9-16); Calcium 8.9 mg/dL (8.4-10.2); Carbon Dioxide 27 mmol/L (22-29); Chloride 107 mmol/L (96-108); Creatinine Clr Calc Pharmacy 153.4; Estimated Glomerular Filt Rate > 60; Glucose Random 84 mg/dL (60-115); Magnesium 2.1 mg/dL (1.6-2.6); Phosphorus 3.2 mg/dL (2.7-4.5); Potassium 3.5 mmol/L (3.3-5.1); Sodium 147 mmol/L (135-145); Total Protein 7.1 g/dL (6.5-8.0)
[2024-12-28 06:19] LABS: SLIDE REVIEW VERIFIED
[2024-12-28 06:22] LABS: Alkaline Phosphatase 79 U/L (39-117)
[2024-12-28] MEDS: 0.9 % Sodium Chloride Flush 3 ML SYRINGE IVFLUSH ×2 (08:55→15:14)
[2024-12-28] MEDS: dexmedeTOMIDidine HCL/NS 400 MCG/100 ML INFUS..BTL 5.54 MCG IVCONT (08:56)
[2024-12-28] MEDS: Albumin Human 25 % 100 ML IV ×3 (08:57→20:13)
[2024-12-28] MEDS: Potassium Chloride/H20 10 MEQ/100 ML PIGGYBACK 100 MEQ IV ×2 (08:57→11:27)
[2024-12-28] MEDS: Chlorhexidine Gluc Oral Rinse 15 ML MOUTHWASH BUCCAL ×3 (09:36→20:34)
[2024-12-28] MEDS: Metoprolol Tartrate 12.5 MG HALFTAB PO ×2 (09:36→19:57)
[2024-12-28] MEDS: Cholecalciferol (Vitamin D3) 25 MCG TABLET 50 MCG G-TUBE (09:36)
[2024-12-28] MEDS: oxyCODONE HCl Immed Release 5 MG TABLET PO ×3 (09:37→19:56)
[2024-12-28] MEDS: predniSONE 5 MG TABLET 15 MG PO (09:37)
--- NOTE | 2024-12-28 09:47 | PM.CCPN ---
Subjective Subjective Date of Service: 12/28/24 Interval History: 39-year-old gentleman with underlying presumptive multiple sclerosis/neuromyelitis optica, paraplegia, neurogenic bladder status post suprapubic catheter, status post PEG, admitted on 12/02/2024 with suprapubic catheter occlusion causing urinary retention and acute UTI, and also hypoxic respiratory failure secondary to recurrent pulmonary aspiration. Hospital course significant for recurrent pulmonary aspiration and MRSA hypoxemia requiring intubation and transferred to intensive care unit on 12/15/2024, status post tracheostomy on 12/17/2024 when transferred to telemetry on 12/20/2024. On 12/26/2024 patient with recurrent pulmonary aspiration resulting in acute hypoxic respiratory failure requiring re-initiation ventilatory support through tracheostomy and transfer to intensive care unit. No events overnight. FiO2 requirements and tolerance of pressor support continue to improve. Critical Care Time (minutes): 45 Physical Exam Vital Signs: Vital Signs: Last Vital Signs Temp 99.0 F 12/28/24 08:00 Pulse 105 H 12/28/24 09:00 Resp 18 12/28/24 09:00 BP 120/80 12/28/24 09:00 Pulse Ox 99 12/28/24 09:00 O2 Del Method Mechanical Ventil ation 12/28/24 09:00 O2 Flow Rate 9 12/26/24 15:57 FiO2 50 12/28/24 09:00 Oxygen Flow Rate 6 12/02/24 12:11 BMI result Body Mass Index 24.1 Const: General: no acute distress, alert and awake Eyes: Sclerae: sclerae normal EOM: EOMs intact bilaterally Neck: Neck: Yes no lymphadenopathy, Yes trachea midline, Yes supple and Yes tracheostomy present (On ventilatory support) Resp: Auscultation: clear to auscultation bilaterally Cardio: Rate: tachycardic Rhythm: regular rhythm Heart sounds: no gallops, no murmurs and no rubs GI: Inspection: Yes G-tube present Palpation (GI): Soft to palpation and Other GI palpation findings present ( Nontender) Auscultation: normal bowel sounds Extrem: General: Yes no pedal edema, No clubbing and No cyanosis Objective Data Labs 12/28/24 05:35 12/28/24 05:35 Labs: Laboratory Results - last 24 hr 12/26/24 12/27/24 12/28/24 22:45 11:36 05:35 WBC 17.2 H RBC 3.67 L Hgb 8.8 L Hct 29.2 L MCV 79.6 L MCH 24.0 L MCHC 30.1 L RDW 18.7 H Plt Count 337 MPV 12.1 Immature Gran % (Auto) 0.6 H Neut % (Auto) 80.6 H Lymph % (Auto) 6.4 L [place] % (Auto) 11.7 H Eos % (Auto) 0.5 Baso % (Auto) 0.2 Lymph # (Auto) 1.1 L [place] # (Auto) 2.0 H Eos # (Auto) 0.1 Baso # (Auto) 0.0 Abs Immat Gran (auto) 0.11 H Absolute Neuts (auto) 13.9 H Absolute Nucleated RBC 0.000 Nucleated RBC % (auto) 0.0 Smear Tech's Comments VERIFIED VBG pH VBG pCO2 VBG pO2 VBG HCO3 VBG O2 Saturation VBG Base Excess Sodium 147 H Potassium 3.5 Chloride 107 Carbon Dioxide 27 Anion Gap 17 BUN 14 Creatinine 0.64 Estim Creat Clear Calc 153.4 Estimated GFR > 60 POC Glucose 108 Random Glucose 84 Calcium 8.9 Phosphorus 3.2 Magnesium 2.1 Total Bilirubin 0.4 AST 36 ALT 33 Alkaline Phosphatase 79 Total Protein 7.1 Albumin 3.0 L Respiratory Panel Caceres See Note Adenovirus (Rapid PCR) Not Detected B.pert (TEM-PCR) Not Detected B.parapertussis DNA PCR Not Detected C. pneumoniae DNA (PCR) Not Detected Coronavirus OC43 (PCR) Not Detected Coronavirus HKU1 (PCR) Not Detected Coronavirus 229E (PCR) Not Detected Coronavirus NL63 (PCR) Not Detected Human Metapneumovir PCR Not Detected Influenza A (RT-PCR) Not Detected Influenza B (RT-PCR) Not Detected M. pneumoniae (PCR) Not Detected Parainfluenza 1 (PCR) Not Detected Parainfluenza 2 (PCR) Not Detected Parainfluenza 3 (PCR) Not Detected Parainfluenza 4 (PCR) Not Detected RSV (PCR) Not Detected Entero/Rhino (PCR) Not Detected SARS-CoV-2 RNA (RT-PCR) Not Detected 12/28/24 05:40 WBC RBC Hgb Hct MCV MCH MCHC RDW Plt Count MPV Immature Gran % (Auto) Neut % (Auto) Lymph % (Auto) [place] % (Auto) Eos % (Auto) Baso % (Auto) Lymph # (Auto) [place] # (Auto) Eos # (Auto) Baso # (Auto) Abs Immat Gran (auto) Absolute Neuts (auto) Absolute Nucleated RBC Nucleated RBC % (auto) Smear Tech's Comments VBG pH 7.63 H* VBG pCO2 30 VBG pO2 44 VBG HCO3 31 H VBG O2 Saturation 82.0 VBG Base Excess 10.8 Sodium Potassium Chloride Carbon Dioxide Anion Gap BUN Creatinine Estim Creat Clear Calc Estimated GFR POC Glucose Random Glucose Calcium Phosphorus Magnesium Total Bilirubin AST ALT Alkaline Phosphatase Total Protein Albumin Respiratory Panel Caceres Adenovirus (Rapid PCR) B.pert (TEM-PCR) B.parapertussis DNA PCR C. pneumoniae DNA (PCR) Coronavirus OC43 (PCR) Coronavirus HKU1 (PCR) Coronavirus 229E (PCR) Coronavirus NL63 (PCR) Human Metapneumovir PCR Influenza A (RT-PCR) Influenza B (RT-PCR) M. pneumoniae (PCR) Parainfluenza 1 (PCR) Parainfluenza 2 (PCR) Parainfluenza 3 (PCR) Parainfluenza 4 (PCR) RSV (PCR) Entero/Rhino (PCR) SARS-CoV-2 RNA (RT-PCR) Microbiology Microbiology Results: Microbiology 12/26/24 19:21 Sputum - Suctioned Gram Stain - Final 12/26/24 19:21 Sputum - Suctioned Sputum Culture - Preliminary Culture in progress. 12/22/24 11:50 Blood - Venous Blood Culture - Final No growth after 5 days. 12/22/24 11:51 Blood - Venous Blood Culture - Final No growth after 5 days. 12/15/24 04:37 Blood - Venous Blood Culture - Final No growth after 5 days. 12/15/24 04:37 Blood - Venous Blood Culture - Final No growth after 5 days. 12/17/24 11:40 Bronchial Washings Gram Stain - Final 12/17/24 11:40 Bronchial Washings - Final Corynebacterium species Yeast 12/15/24 14:07 Urine Catheterized - Villatoro Catheter Urine Culture - Final Trichosporon asahii 12/15/24 10:30 Sputum - Suctioned Gram Stain - Final 12/15/24 10:30 Sputum - Suctioned Sputum Culture - Final 12/02/24 12:46 Blood - Venous Blood Culture - Final No growth after 5 days. 12/02/24 12:46 Blood - Venous Blood Culture - Final No growth after 5 days. 12/02/24 17:23 Urine Catheterized - Villatoro Catheter Urine Culture - Final Enterobacter cloacae complex Progress Note: A&P Assessment and plan (1) Dysphagia: Status: Acute (2) Demyelinating disease: Status: Acute (3) Pulmonary aspiration: Status: Acute (4) Acute respiratory failure with hypoxia: Status: Acute (5) Myopathy: Status: Acute (6) Neurogenic urinary bladder disorder: Status: Acute Plan Assessment: 39-year-old gentleman with underlying demyelinating disease with neurogenic bladder status post suprapubic catheter, dysphagia status post PEG admitted with suprapubic catheter dysfunction causing UTI, further complicated by recurrent pulmonary aspiration resulting in acute hypoxic respiratory failure requiring intubation, now status post tracheostomy with continuation of recurrent pulmonary aspiration Plan: Neuro: underlying demyelinating disorder Cardiac: No acute issues. Pulmonary: acute hypoxic respiratory failure secondary to recurrent pulmonary aspiration, now status post tracheostomy, continue to titrate off ventilatory support as tolerated. Now with improving ventilatory support requirements, tolerating pressure support trials. Will trial tracheal collar today. Overall from pulmonary perspective patient requires chronic pulmonary toilet secondary to weakness of underlying swallowing muscles that results in chronic aspiration that is easier accomplished through the tracheostomy. Renal: No acute issues. Endo: No acute issues. GI: No acute issues. ID: Pulmonary aspiration pneumonitis versus pneumonia, Unasyn switched to Augmentin to finish 7 days of therapy. Heme/Onc: No acute issues. Psych: No acute issues. Miscellaneous: No acute issues. Prophylaxis: Heparin, PPI Diet: tube feeds Critical care time spent: 45 minutes Quality Stroke Does the patient have a stroke diagnosis?: No VTE Prior VTE?: No VTE Risk Level:: Medical - moderate - high VTE Device Contraindication: Treatment Not Indicated VTE Drug Contraindication: N/A - Med Ordered
[2024-12-28] MEDS: clonazePAM 1 MG TABLET PO ×3 (09:52→19:58)
[2024-12-28] MEDS: Mupirocin 2 % Oint 22 GM TUBE 1 APPL TOPICAL ×3 (09:53→22:51)
--- NOTE | 2024-12-28 10:39 | MHC.CLN ---
F/U DISCUSSED AT ROUNDS WITH MD PLAN TO START RE-START TF TODAY PT PREVIOUSLY RECEIVED TF FORMULA JEVITY 1.0 AT MAX GOAL RATE 85ML/HR WITH 30ML PROSOURCE X1 PER DAY AND 120ML FREE WATER FLUSHES Q 6 HRS PROVIDED 2222 TOTAL KCALS (FROM FORMULA AND PROSOURCE), 105G TOTAL PROTEIN (1.4G/KG), 2183ML TOTAL WATER FROM FORMULA AND FLUSHES (29.7ML/KG) RECOMMEND SWITCHING FORMULA TO OSMOLITE 1.5 AT MAX GOAL RATE 60ML/HR TO PROVIDE 2160KCALS (29KCALS/KG), 90G PROTEIN (1.2G/KG), 2057ML TOTAL WATER FROM FORMULA AND FLUSHES (28ML/KG) MONITOR TOLERANCE AND LYTES
[2024-12-28] MEDS: Amoxicillin/Potassium Clav 875 MG TABLET PO ×2 (12:32→20:46)
--- NOTE | 2024-12-28 18:42 | PC.NURSE ---
patient SBT trial successful today. able to ween off vent and onto venti (collar) set-up to trach.pt has been off vent from approx noon until change of shift. denies any dyspnea, becomes tachypneic with log rolling. oxygen 28% satting high 90s. patient has many needs, able to make needs known. expresses that he wants someone to stay with him for company. support provided. patient seems slightly less anxious after switching to colonopin from DEX gtt. enjoys frequent oral care and teeth brushing. cold ice water applied to mouth and suctioned per PT request. patient also enjoys occasional apple juice swabs w/ .suction medications infused per DEC. see shift assessment for head to toe.
[2024-12-28] MEDS: Enoxaparin Sodium 40 MG/0.4 ML SYRINGE SUBCUT (20:16)
[2024-12-28] MEDS: Sennosides 8.6 MG TABLET 17.2 MG G-TUBE (20:33)
[2024-12-28] MEDS: Acetaminophen 325 MG TABLET 650 MG G-TUBE (22:52)
[2024-12-29] VITALS (33 sets, daily range): BP systolic 100–165; BP diastolic 66–98; PULSE 96–141; RESP 12–32; TEMP 34.7–37.1; O2SAT 81–100; BMI 23.8
[2024-12-29] MEDS: fentaNYL citrate/PF 100 MCG/2 ML VIAL 50 MCG IVPUSH ×2 (02:04→04:55)
[2024-12-29] MEDS: Albumin Human 25 % 100 ML IV (02:07)
--- NOTE | 2024-12-29 02:31 | PC.NURSE ---
salesperson hearing aids provider Dodie notified 1. anxious/restless 2. saO2 87-88% 3. tachypneic rr 26-28 bpm 4. suctioning small amounts of blood from tracheostomy tube 5. currently maintained on trach collar Fio2 28% o2 5lpm-plan a. fentanyl 50 mcg ivp b. increased fi02 35% 8lpm-
--- NOTE | 2024-12-29 03:28 | PC.NURSE ---
Addendum entered by Kingsley Askew RN 12/29/24 05:17: pt continues to have restlessness/anxiety. tachypneic rr 28-30 bpm. sao2 87-88%. returned to ac mode on ventilator with the following settings ac 16 vt 350 fio2 50% peep 5 cm. cuff on trach is fentanyl 50 mcg ivp given for ventilatory management and comfort. oral secretions have continued to be excessive. Original Note: for approximately 1 hour, pt showed improvement with fentanyl and increased oxygen support. unfortunately, pt is again showing increased work of breathing. tachypnea rr 28-30 bpm. sa02 86-87%. b/p and hr have also increased as well as anxiousness. plan- return pt to mechanical ventilator. will await ventilator settings-PSV 18 FIO2 50% PEEP 5CM.
[2024-12-29] MEDS: Albuterol Sulfate (0.083%) 2.5 MG/3 ML VIAL.NEB INHALE (05:44)
[2024-12-29 05:48] LABS: VBG Base Excess 12.9 mmol/L; VBG HCO3 33 mmol/L (22-26); VBG pCO2 27 mmHg; VBG pH 7.68 (7.32-7.43); VBG pO2 70 mmHg
[2024-12-29] MEDS: LORazepam 2 MG/ML VIAL 1 MG IVPUSH (06:12)
[2024-12-29 06:30] LABS: Albumin Level 4.2 g/dL (3.5-5.0); Anion Gap 16 (12-20); Blood Urea Nitrogen 14 mg/dL (9-16); Calcium 9.8 mg/dL (8.4-10.2); Carbon Dioxide 26 mmol/L (22-29); Chloride 105 mmol/L (96-108); Estimated Glomerular Filt Rate > 60; Glucose Random 91 mg/dL (60-115); Magnesium 2.2 mg/dL (1.6-2.6); Phosphorus 3.2 mg/dL (2.7-4.5); Potassium 3.9 mmol/L (3.3-5.1); Sodium 143 mmol/L (135-145)
[2024-12-29 06:58] LABS: Basophils Percent Auto 0.2 % (0-2); Eosinophils Absolute Auto 0.2 X10*3/uL (0.0-0.4); Eosinophils Percent Auto 1.4 % (0-4); Hematocrit 28.6 % (42.0-52.0); Hemoglobin 8.8 g/dl (14.0-18.0); Imm Gran Abs Auto 0.09 X10*3/uL (0.00-0.03); Imm Gran Pct Auto 0.6 % (0.0-0.4); Lymphocytes Absolute Auto 1.3 X10*3/uL (1.2-4.9); Lymphocytes Percent Auto 8.3 % (20-40); Mean Corpuscular HGB Conc 30.8 g/dl (31.0-36.0); Mean Corpuscular Hemoglobin 24.1 pg (27.0-33.0); Mean Corpuscular Volume 78.4 fL (80.0-98.0); Mean Platelet Volume 11.9 fL (9.4-12.4); Monocytes Absolute Auto 1.4 X10*3/uL (0.1-1.2); Monocytes Percent Auto 8.9 % (2-11); Neutrophils Absolute Auto 12.9 x10*3/uL (2.0-8.3); Neutrophils Percent Auto 80.6 % (45-73); Platelet Count 343 X10*3/uL (160-400); Red Blood Count 3.65 X10*6/uL (4.60-5.80); Red Cell Distribution Width 18.5 % (11.0-16.0); White Blood Count 16.1 X10*3/uL (4.8-10.8)
[2024-12-29 07:15] LABS: MANUAL DIFF FLAG NO
[2024-12-29 08:53] LABS: Venous Blood Gas Refer to POC result
--- NOTE | 2024-12-29 08:56 | P.PNCC_ITS ---
Subjective Subjective Date of Service: 12/29/24 Interval History: 39-year-old gentleman with underlying presumptive multiple sclerosis/neuromyelitis optica, paraplegia, neurogenic bladder status post suprapubic catheter, status post PEG, admitted on 12/02/2024 with suprapubic catheter occlusion causing urinary retention and acute UTI, and also hypoxic respiratory failure secondary to recurrent pulmonary aspiration. Hospital course significant for recurrent pulmonary aspiration and MRSA hypoxemia requiring intubation and transferred to intensive care unit on 12/15/2024, status post tracheostomy on 12/17/2024 when transferred to telemetry on 12/20/2024. On 12/26/2024 patient with recurrent pulmonary aspiration resulting in acute hypoxic respiratory failure requiring re-initiation ventilatory support through tracheostomy and transfer to intensive care unit. No events overnight. FiO2 requirements and tolerance of weaning trials improving. Tolerated tracheal collar for approximately 12 hours. Critical Care Time (minutes): 45 Physical Exam 2 Vital Signs: Vital Signs: Last Vital Signs Temp 98.8 F 12/29/24 08:00 Pulse 125 H 12/29/24 08:00 Resp 25 H 12/29/24 08:00 BP 165/92 H 12/29/24 08:00 Pulse Ox 100 12/29/24 08:00 O2 Del Method Trach Collar 12/29/24 08:00 O2 Flow Rate 5 12/29/24 08:00 FiO2 28 12/29/24 08:00 Oxygen Flow Rate 6 12/02/24 12:11 BMI result Body Mass Index 24.1 Const: General: no acute distress, alert, awake and anxious Eyes: Sclerae: sclerae normal EOM: EOMs intact bilaterally Neck: Neck: Yes no lymphadenopathy, Yes trachea midline, Yes supple and Yes tracheostomy present (On ventilatory support) Resp: Effort & Inspection: normal respiratory effort and no respiratory distress Auscultation: clear to auscultation bilaterally Cardio: Rate: tachycardic Rhythm: regular rhythm Heart sounds: no gallops, no murmurs and no rubs GI: Palpation (GI): Soft to palpation and Other GI palpation findings present ( Nontender) Auscultation: normal bowel sounds Extrem: General: Yes no pedal edema, No clubbing and No cyanosis Objective Data Labs 12/29/24 06:35 12/29/24 05:37 Labs: Laboratory Results - last 24 hr 0312/29/24 12/29/24 05:37 05:40 06:35 WBC 16.1 H RBC 3.65 L Hgb 8.8 L Hct 28.6 L MCV 78.4 L MCH 24.1 L MCHC 30.8 L RDW 18.5 H Plt Count 343 MPV 11.9 Immature Gran % (Auto) 0.6 H Neut % (Auto) 80.6 H Lymph % (Auto) 8.3 L [place] % (Auto) 8.9 Eos % (Auto) 1.4 Baso % (Auto) 0.2 Lymph # (Auto) 1.3 [place] # (Auto) 1.4 H Eos # (Auto) 0.2 Baso # (Auto) 0.0 Abs Immat Gran (auto) 0.09 H Absolute Neuts (auto) 12.9 H Absolute Nucleated RBC 0.000 Nucleated RBC % (auto) 0.0 VBG pH 7.68 H* VBG pCO2 27 VBG pO2 70 VBG HCO3 33 H VBG O2 Saturation 99.0 VBG Base Excess 12.9 Sodium 143 Potassium 3.9 Chloride 105 Carbon Dioxide 26 Anion Gap 16 BUN 14 Creatinine 0.65 Estim Creat Clear Calc 151.0 Estimated GFR > 60 Random Glucose 91 Calcium 9.8 D Phosphorus 3.2 Magnesium 2.2 Albumin 4.2 Microbiology Microbiology Results: Microbiology 12/26/24 19:21 Sputum - Suctioned Gram Stain - Final 12/26/24 19:21 Sputum - Suctioned Sputum Culture - Preliminary Culture in progress. 12/22/24 11:50 Blood - Venous Blood Culture - Final No growth after 5 days. 12/22/24 11:51 Blood - Venous Blood Culture - Final No growth after 5 days. 12/15/24 04:37 Blood - Venous Blood Culture - Final No growth after 5 days. 12/15/24 04:37 Blood - Venous Blood Culture - Final No growth after 5 days. 12/17/24 11:40 Bronchial Washings Gram Stain - Final 12/17/24 11:40 Bronchial Washings - Final Corynebacterium species Yeast 12/15/24 14:07 Urine Catheterized - Ivllatoro Catheter Urine Culture - Final Trichosporon asahii 12/15/24 10:30 Sputum - Suctioned Gram Stain - Final 12/15/24 10:30 Sputum - Suctioned Sputum Culture - Final 12/02/24 12:46 Blood - Venous Blood Culture - Final No growth after 5 days. 12/02/24 12:46 Blood - Venous Blood Culture - Final No growth after 5 days. 12/02/24 17:23 Urine Catheterized - Villatoro Catheter Urine Culture - Final Enterobacter cloacae complex Progress Note: A&P Assessment and plan (1) Tachycardia: Status: Acute (2) Dysphagia: Status: Acute (3) Neurogenic urinary bladder disorder: Status: Acute (4) Myopathy: Status: Acute (5) Demyelinating disease: Status: Acute (6) Pulmonary aspiration: Status: Acute (7) Acute respiratory failure with hypoxia: Status: Acute Plan Assessment: 39-year-old gentleman with underlying demyelinating disease with neurogenic bladder status post suprapubic catheter, dysphagia status post PEG admitted with suprapubic catheter dysfunction causing UTI, further complicated by recurrent pulmonary aspiration resulting in acute hypoxic respiratory failure requiring intubation, now status post tracheostomy with continuation of recurrent pulmonary aspiration Plan: Neuro: underlying demyelinating disorder Cardiac: No acute issues. Pulmonary: acute hypoxic respiratory failure secondary to recurrent pulmonary aspiration, now status post tracheostomy. Now with improving tolerance of weaning trials. Tolerated tracheal collar for paroxysmally 12 hours. Continue to wean as tolerated. Renal: No acute issues. Endo: No acute issues. GI: No acute issues. ID: Pulmonary aspiration pneumonitis versus pneumonia, Unasyn switched to Augmentin to finish 7 days of therapy. Heme/Onc: No acute issues. Psych: No acute issues. Miscellaneous: No acute issues. Prophylaxis: Heparin, PPI Diet: tube feeds Critical care time spent: 45 minutes Quality Stroke Does the patient have a stroke diagnosis?: No VTE Prior VTE?: No VTE Risk Level:: Medical - moderate - high VTE Device Contraindication: Treatment Not Indicated VTE Drug Contraindication: N/A - Med Ordered
[2024-12-29] MEDS: 0.9 % Sodium Chloride Flush 3 ML SYRINGE IVFLUSH ×3 (09:06→21:51)
[2024-12-29] MEDS: clonazePAM 1 MG TABLET PO ×3 (09:06→20:22)
[2024-12-29] MEDS: Chlorhexidine Gluc Oral Rinse 15 ML MOUTHWASH BUCCAL ×3 (09:06→20:19)
[2024-12-29] MEDS: Amoxicillin/Potassium Clav 875 MG TABLET PO ×2 (09:06→20:22)
[2024-12-29] MEDS: Cholecalciferol (Vitamin D3) 25 MCG TABLET 50 MCG G-TUBE (09:06)
[2024-12-29] MEDS: predniSONE 5 MG TABLET 15 MG PO (09:06)
[2024-12-29] MEDS: Metoprolol Tartrate 12.5 MG HALFTAB PO ×2 (09:06→20:22)
[2024-12-29] MEDS: Mupirocin 2 % Oint 22 GM TUBE 1 APPL TOPICAL ×3 (09:07→20:25)
[2024-12-29] MEDS: oxyCODONE HCl Immed Release 5 MG TABLET PO ×4 (09:07→20:21)
--- NOTE | 2024-12-29 10:44 | HE.NUR.EV ---
Addendum entered by Delfino Cat RN 12/29/24 19:24: this afternoon, conversation held with patient, family, MD, RN and case management about patient PROXY and competency to make decisions .see case management note for full details. patient handed off at 1900 on 12/29/24. no needs, no distress, sleeping, mechanically vented, and stable. Original Note: ASSUMED CARE 0700 12/29/24 On initial assessment: patient was severely anxious, hypoxic, tachypnic, tachycardic, and restless, asking for help . RT called to bedside to adjust vent settings. Status Change: Patient oxygen demands were 28%-O2 on venti trach collar yesterday around noon... oxygen needs are now (12/29/24 @11:00) ACVC settings at 100%-O2. per change of shift report from night RN... patient had a similar episode of anxiety overnight around approx 0200 (12/01/24). Immediate Actions Taken: RT to bedside, vent settings changed, comfort provided, inline trach suctioning and oral care perfromed, repositioning for comfort+oxygenation, O2% titrated, MD made aware, scheduled anxiolytics and pain medications administered per MAR Patients status now: improved tachycardia, improved tachypnea, improved saturation (O2), remains moderately anxious.
--- NOTE | 2024-12-29 11:15 | MHC.CLN ---
F/U DISCUSSED AT ROUNDS WITH MD REILLY REPORT TOLERATING TF WITHOUT ISSUE AT MAX GOAL RATE CONTINUE OSMOLITE 1.5 AT MAX GOAL RATE 60ML/HR PROVIDES 2160KCALS (29KCALS/KG), 90G PROTEIN (1.2G/KG), 2057ML TOTAL WATER FROM FORMULA AND FLUSHES (28ML/KG) MONITOR TOLERANCE AND LYTES
[2024-12-29 12:03] LABS: Glucose, Whole Blood 157 mg/dL (60-115)
--- NOTE | 2024-12-29 13:10 | MHC.CM.PN ---
Pt doing well with trach collar trials: did 12 hours on 12/28. Increased anxiety during the overnight requiring medication. SERGIO following - awaiting medical clinic manager sign off and payor auth. Message left for HCP Shadi informing him of approaching d/c. CM to follow
--- NOTE | 2024-12-29 14:52 | MHC.CM.PN ---
HCP NOTE: assessed pt and documented that he is able to make his own healthcare decisions. Pt requesting to name new HCP. CM met with pt and head start teacher: pt able to nod yes/no and mouthed the name Stacie when asked who he would like to name as proxy. Pt unable to sign d/t medical condition - 2 witnesses in room - CM signed pt's name - new proxy shown and explained to pt who nods in affirmation. Copy given to pt's sister Stacie who was in waiting area. Stacie understands pt is now able to make his own healthcare decisions and the proxy would only be activated should he not be able to. Copy given to her - new proxy scanned into [employer] and information updated with [facility] [place] registration for EMR. Stacie and Justus updated on d/c plan to [facility]. [facility] updated with new HCP contact.
--- NOTE | 2024-12-29 15:03 | HO.WOUND ---
Wound Consult:Follow up 39yr old?Male admitted to [facility] on 12/02/24 - See progress notes and H&P for detailed history.? Wound consult follow up for Buttock wound.? ?Patient currently on ICU unit, ANABELLE bed in use. 12/28/24 Sacrum Etiology: ?Previously documented Stage 2 Pressure Injury ?Present on Admission Wound Bed: central open wound bed with adherent slough noted - granulation buds noted - dark purple pigmentation noted - periwound with MASD and friction noted Edges: ? attached Agueda wound: MASD (Moisture Associated Skin Damage) bilateral ischial areas are noted for dark pigmented moist tissue - noted on last assessment - recommend triad and continue to off load pressure. No Induration, Fluctuance or Warmth noted Goals of Treatment: ? Off Load Pressure and Santyl for enzymatic debridement Recommendations: 1. Turn and Reposition every 2 hours and as needed for patient comfort.? Use pillows or wedges to support off loading positions. 2. Off Load all bony prominences with use of pillows and heel boots if needed.? Apply Preventative foams where needed. ?Recommend preventative foams to heels 3. Monitor for incontinence and moisture control, use barrier creams when needed for prevention and treatment. 4. Provide adequate and supplemental nutrition.? 5. Continue low air loss mattress. 6. When applicable maintain blood glucose levels per Providers order. 7. Sacrum - Off Load Pressure with Q2 hr turns and use of pillows -Cleanse with normal saline, pat dry. ?Apply triad to the immediate agueda wound, apply thick layer of Santyl to central open wound bed, cover with saline moist gauze, cover with dry gauze, ABD pad, change Daily. Details from last assessment: Sacrum 12/15/24 12/06/24 Re-consult wound care Nurse for wound deterioration or wound changes.
[2024-12-29] MEDS: Sennosides 8.6 MG TABLET 17.2 MG G-TUBE (20:20)
[2024-12-29] MEDS: Enoxaparin Sodium 40 MG/0.4 ML SYRINGE SUBCUT (20:20)
[2024-12-29] MEDS: Collagenase Clostridium Hist. 30 GM TUBE 1 APPL TOPICAL (20:22)
[2024-12-29] MEDS: QUEtiapine Fumarate 25 MG TABLET PO (23:50)
[2024-12-30] VITALS (31 sets, daily range): BP systolic 99–156; BP diastolic 52–92; PULSE 89–138; RESP 16–36; TEMP 34.7–37.9; O2SAT 90–97; BMI 27.4
--- NOTE | 2024-12-30 01:35 | PC.NURSE ---
CARE ASSUMED 7PM...[facility]....VSS...REMAINS INTERMITTANTLY ANXIOUS PER SHIFT REPORT....SCHEDULED KLONOPIN AND OXYCODONE VIA PEG AT 20:20 WITH DECREASED ANXIETY AND RESTFUL...SANTYL OINTMENT/DRESSING PER WOUND RN INSTRUCTIONS TO COCCYX...OSMOLYTE 60 CC/HR VIA PEG...SUPRAPUBIC CATHETER SEDIMENTED YELLOW URINE...SINUS TACH HR 110-116...INCREASED ANXIETY 23:00...RR 28-30..HR 120...DECREASED SAO2 TO 86%...FIO2 TITRATED FROM 60% TO 80%...SEROQUEL 25MG X1 GIVEN VIA PEG 23:50...GRADUAL RESTFUL EFFECT....FIO2 WEANED TO 70% WITH SAO2 95%...REMAINS AWAKE BUT CALMER..DENIED DISCOMFORT
[2024-12-30 03:53] LABS: ABG HCO3 36 mmol/L (22-26); ABG pCO2 41 mmHg (32-45); ABG pH 7.54 (7.35-7.45); ABG pO2 61 mmHg (83-108)
[2024-12-30] MEDS: Omeprazole/Na Bicarb Oral Susp 20 MG/10 ML UD Cup G-TUBE (05:30)
[2024-12-30 05:51] LABS: VBG Base Excess 12.9 mmol/L; VBG HCO3 35 mmol/L (22-26); VBG pCO2 35 mmHg; VBG pO2 110 mmHg
[2024-12-30 05:55] LABS: Basophils Percent Auto 0.2 % (0-2); Eosinophils Absolute Auto 0.2 X10*3/uL (0.0-0.4); Eosinophils Percent Auto 1.1 % (0-4); Hematocrit 26.2 % (42.0-52.0); Hemoglobin 8.3 g/dl (14.0-18.0); Imm Gran Pct Auto 0.5 % (0.0-0.4); Lymphocytes Absolute Auto 1.4 X10*3/uL (1.2-4.9); Lymphocytes Percent Auto 7.5 % (20-40); MANUAL DIFF FLAG SCAN; Mean Corpuscular HGB Conc 31.7 g/dl (31.0-36.0); Mean Corpuscular Hemoglobin 24.5 pg (27.0-33.0); Mean Corpuscular Volume 77.3 fL (80.0-98.0); Mean Platelet Volume 11.6 fL (9.4-12.4); Neutrophils Absolute Auto 14.6 x10*3/uL (2.0-8.3); Neutrophils Percent Auto 79.7 % (45-73); Platelet Count 313 X10*3/uL (160-400); Red Blood Count 3.39 X10*6/uL (4.60-5.80); Red Cell Distribution Width 18.6 % (11.0-16.0); SCAN SMEAR FLAG 1; White Blood Count 18.3 X10*3/uL (4.8-10.8)
[2024-12-30 06:16] LABS: Albumin Level 3.8 g/dL (3.5-5.0); Anion Gap 14 (12-20); Blood Urea Nitrogen 17 mg/dL (9-16); Calcium 9.3 mg/dL (8.4-10.2); Carbon Dioxide 30 mmol/L (22-29); Chloride 105 mmol/L (96-108); Creatinine Clr Calc Pharmacy 158.3; Estimated Glomerular Filt Rate > 60; Glucose Random 116 mg/dL (60-115); Magnesium 1.9 mg/dL (1.6-2.6); Phosphorus 2.6 mg/dL (2.7-4.5); Potassium 3.2 mmol/L (3.3-5.1); Sodium 146 mmol/L (135-145)
[2024-12-30 06:20] LABS: Venous Blood Gas Refer to POC result
[2024-12-30 06:23] LABS: SLIDE REVIEW VERIFIED
[2024-12-30] MEDS: predniSONE 5 MG TABLET 15 MG PO (08:40)
[2024-12-30] MEDS: Chlorhexidine Gluc Oral Rinse 15 ML MOUTHWASH BUCCAL ×3 (08:40→19:47)
[2024-12-30] MEDS: Amoxicillin/Potassium Clav 875 MG TABLET PO ×2 (08:40→19:48)
[2024-12-30] MEDS: oxyCODONE HCl Immed Release 5 MG TABLET PO ×4 (08:40→19:49)
[2024-12-30] MEDS: Metoprolol Tartrate 12.5 MG HALFTAB PO ×2 (08:40→19:47)
[2024-12-30] MEDS: clonazePAM 1 MG TABLET PO ×3 (08:40→19:48)
[2024-12-30] MEDS: Cholecalciferol (Vitamin D3) 25 MCG TABLET 50 MCG G-TUBE (08:40)
[2024-12-30] MEDS: 0.9 % Sodium Chloride Flush 3 ML SYRINGE IVFLUSH ×3 (08:41→19:49)
[2024-12-30] MEDS: Potassium Chloride Packet 20 MEQ PACKET PO (08:41)
[2024-12-30] MEDS: Potassium Phosphate/NS 15 MMOL/250 ML PLAST..BAG 62.5 MMOL IV (08:41)
[2024-12-30] MEDS: Mupirocin 2 % Oint 22 GM TUBE 1 APPL TOPICAL ×3 (08:54→19:50)
[2024-12-30] MEDS: Collagenase Clostridium Hist. 30 GM TUBE 1 APPL TOPICAL ×2 (08:54→19:51)
--- NOTE | 2024-12-30 10:22 | P.PNCC_ITS ---
Subjective Subjective Date of Service: 12/30/24 Interval History: 39-year-old gentleman with underlying presumptive multiple sclerosis/neuromyelitis optica, paraplegia, neurogenic bladder status post suprapubic catheter, status post PEG, admitted on 12/02/2024 with suprapubic catheter occlusion causing urinary retention and acute UTI, and also hypoxic respiratory failure secondary to recurrent pulmonary aspiration. Hospital course significant for recurrent pulmonary aspiration and MRSA hypoxemia requiring intubation and transferred to intensive care unit on 12/15/2024, status post tracheostomy on 12/17/2024 when transferred to telemetry on 12/20/2024. On 12/26/2024 patient with recurrent pulmonary aspiration resulting in acute hypoxic respiratory failure requiring re-initiation ventilatory support through tracheostomy and transfer to intensive care unit. Now with improving tolerance of weaning/support trials. No events overnight. Critical Care Time (minutes): 45 Physical Exam 2 Vital Signs: Vital Signs: Last Vital Signs Temp 100.3 F 12/30/24 08:00 Pulse 134 H 12/30/24 10:00 Resp 22 H 12/30/24 10:00 BP 144/85 H 12/30/24 10:00 Pulse Ox 95 12/30/24 10:00 O2 Del Method Mechanical Ventil ation 12/30/24 10:00 O2 Flow Rate 5 12/29/24 18:00 FiO2 70 12/30/24 10:00 Oxygen Flow Rate 6 12/02/24 12:11 BMI result Body Mass Index 27.4 Const: General: no acute distress, alert, awake and anxious Eyes: Sclerae: sclerae normal EOM: EOMs intact bilaterally Neck: Neck: Yes no lymphadenopathy, Yes trachea midline, Yes supple and Yes tracheostomy present (On vent) Resp: Effort & Inspection: normal respiratory effort and no respiratory distress Auscultation: clear to auscultation bilaterally Cardio: Rate: tachycardic Rhythm: regular rhythm Heart sounds: no gallops, no murmurs and no rubs GI: Inspection: Yes G-tube present Palpation (GI): Soft to palpation and Other GI palpation findings present ( Nontender) Auscultation: normal bowel sounds Extrem: General: Yes no pedal edema, No clubbing and No cyanosis Objective Data Labs 12/30/24 05:45 12/30/24 05:45 Labs: Laboratory Results - last 24 hr 12/29/24 12/30/24 12/30/24 11:59 03:48 05:45 WBC 18.3 H RBC 3.39 L Hgb 8.3 L Hct 26.2 L MCV 77.3 L MCH 24.5 L MCHC 31.7 RDW 18.6 H Plt Count 313 MPV 11.6 Immature Gran % (Auto) 0.5 H Neut % (Auto) 79.7 H Lymph % (Auto) 7.5 L [place] % (Auto) 11.0 Eos % (Auto) 1.1 Baso % (Auto) 0.2 Lymph # (Auto) 1.4 [place] # (Auto) 2.0 H Eos # (Auto) 0.2 Baso # (Auto) 0.0 Abs Immat Gran (auto) 0.10 H Absolute Neuts (auto) 14.6 H Absolute Nucleated RBC 0.000 Nucleated RBC % (auto) 0.0 Smear Tech's Comments VERIFIED O2 Saturation 94.0 ABG pH at Pt Temp 7.54 H ABG pCO2 at Pt Temp 41 ABG pO2 at Pt Temp 61 L ABG HCO3 36 H ABG Base Excess (Actual) 13.0 VBG pH VBG pCO2 VBG pO2 VBG HCO3 VBG O2 Saturation VBG Base Excess Sodium 146 H Potassium 3.2 L Chloride 105 Carbon Dioxide 30 H Anion Gap 14 BUN 17 H Creatinine 0.62 Estim Creat Clear Calc 158.3 Estimated GFR > 60 POC Glucose 157 H Random Glucose 116 H Calcium 9.3 Phosphorus 2.6 L Magnesium 1.9 Albumin 3.8 12/30/24 05:47 WBC RBC Hgb Hct MCV MCH MCHC RDW Plt Count MPV Immature Gran % (Auto) Neut % (Auto) Lymph % (Auto) [place] % (Auto) Eos % (Auto) Baso % (Auto) Lymph # (Auto) [place] # (Auto) Eos # (Auto) Baso # (Auto) Abs Immat Gran (auto) Absolute Neuts (auto) Absolute Nucleated RBC Nucleated RBC % (auto) Smear Tech's Comments O2 Saturation ABG pH at Pt Temp ABG pCO2 at Pt Temp ABG pO2 at Pt Temp ABG HCO3 ABG Base Excess (Actual) VBG pH 7.60 H* VBG pCO2 35 VBG pO2 110 VBG HCO3 35 H VBG O2 Saturation 100.0 VBG Base Excess 12.9 Sodium Potassium Chloride Carbon Dioxide Anion Gap BUN Creatinine Estim Creat Clear Calc Estimated GFR POC Glucose Random Glucose Calcium Phosphorus Magnesium Albumin Microbiology Microbiology Results: Microbiology 12/26/24 19:21 Sputum - Suctioned Gram Stain - Final 12/26/24 19:21 Sputum - Suctioned Sputum Culture - Final 12/22/24 11:50 Blood - Venous Blood Culture - Final No growth after 5 days. 12/22/24 11:51 Blood - Venous Blood Culture - Final No growth after 5 days. 12/15/24 04:37 Blood - Venous Blood Culture - Final No growth after 5 days. 12/15/24 04:37 Blood - Venous Blood Culture - Final No growth after 5 days. 12/17/24 11:40 Bronchial Washings Gram Stain - Final 12/17/24 11:40 Bronchial Washings - Final Corynebacterium species Yeast 12/15/24 14:07 Urine Catheterized - Villatoro Catheter Urine Culture - Final Trichosporon asahii 12/15/24 10:30 Sputum - Suctioned Gram Stain - Final 12/15/24 10:30 Sputum - Suctioned Sputum Culture - Final 12/02/24 12:46 Blood - Venous Blood Culture - Final No growth after 5 days. 12/02/24 12:46 Blood - Venous Blood Culture - Final No growth after 5 days. 12/02/24 17:23 Urine Catheterized - Villatoro Catheter Urine Culture - Final Enterobacter cloacae complex Progress Note: A&P Assessment and plan (1) Tachycardia: Status: Acute (2) Dysphagia: Status: Acute (3) Neurogenic urinary bladder disorder: Status: Acute (4) Myopathy: Status: Acute (5) Demyelinating disease: Status: Acute (6) Pulmonary aspiration: Status: Acute (7) Acute respiratory failure with hypoxia: Status: Acute Plan Assessment: 39-year-old gentleman with underlying demyelinating disease with neurogenic bladder status post suprapubic catheter, dysphagia status post PEG admitted with suprapubic catheter dysfunction causing UTI, further complicated by recurrent pulmonary aspiration resulting in acute hypoxic respiratory failure requiring intubation, now status post tracheostomy with continuation of recurrent pulmonary aspiration Plan: Neuro: underlying demyelinating disorder Cardiac: No acute issues. Underlying chronic tachycardia likely related to autonomic instability. Pulmonary: acute hypoxic respiratory failure secondary to recurrent pulmonary aspiration, now status post tracheostomy. Now with improving tolerance of weaning trials. Continue to wean as tolerated. Renal: No acute issues. Endo: No acute issues. GI: No acute issues. ID: Pulmonary aspiration pneumonitis versus pneumonia, Unasyn switched to Augmentin to finish 7 days of therapy. Heme/Onc: No acute issues. Psych: No acute issues. Miscellaneous: No acute issues. Prophylaxis: Heparin, PPI Diet: tube feeds Critical care time spent: 45 minutes Quality Stroke Does the patient have a stroke diagnosis?: No VTE Prior VTE?: No VTE Risk Level:: Medical - moderate - high VTE Device Contraindication: Treatment Not Indicated VTE Drug Contraindication: N/A - Med Ordered
[2024-12-30] MEDS: lamoTRIgine 25 MG TABLET 50 MG PO ×2 (10:31→19:48)
--- NOTE | 2024-12-30 12:55 | MHC.CM.PN ---
Pt in ICU: tolerated PSV for 12 hours on 12/29: Clinically accepted to [facility] - waiting for [facility] auth and can then arrange ALS transport. Clinical information remitted to [facility] via [facility] and by phone call w/Liaison. Message left for pt's sister and new HCP, Stacie updating her on d/c progress. CM to follow
[2024-12-30 13:37] LABS: ABG Refer to POC result
--- NOTE | 2024-12-30 15:51 | MHC.CM.PN ---
Received call from Jessie oakes [facility]: she is requesting a CBC in the am to ensure WBC isn't trending up. She is also concerned with tachycardia and slight fever - explained that pt is very anxious and meds have been adjusted to assist with anxiety. Information relayed to ICU MD. [facility] has not yet given auth for pt to transport. He will need ALS / vent transport.
--- NOTE | 2024-12-30 19:22 | PC.NURSE ---
Neuro: alert and calm, nods yes or no, anxious at times mouths answer.? Cardiac: ST 120-130 at baseline. Resp: Rhonchi TA, suctioned multiple times this shift, moderate amount of cream/white thick secretions noted.? GI/: suprapubic catheter in place patent and draining? Intengumentary/Musculoskeletal: Stage 2 to coccyx santyl cream and DSD in place.?
[2024-12-30] MEDS: Enoxaparin Sodium 40 MG/0.4 ML SYRINGE SUBCUT (19:39)
[2024-12-30] MEDS: Sennosides 8.6 MG TABLET 17.2 MG G-TUBE (19:48)
[2024-12-31] VITALS (18 sets, daily range): BP systolic 112–144; BP diastolic 68–89; PULSE 95–113; RESP 16–33; TEMP 35–37.3; O2SAT 88–100; BMI 27.7
--- NOTE | 2024-12-31 01:30 | PC.NURSE ---
CARE ASSUMED 7PM..AWAKE..NODS YES/NO TO SIMPLE QUESTIONS..DENIED SOB...REMAINS WITH #8.0 SHILEY TRACH WITH DISPOSABLE INNER CANNULA...CPAP 5/PSV 5/FIO2 40% AT 7PM...MILDLY ANXIOUS AT SHIFT CHANGE BUT SIGNIFICANTLY LESS THAN 24 HOURS AGO....RT PRESENT...VENTILATOR CHANGED TO ACVC+...AC 16/TV 420/FIO2 405/PEEP 5CM...HS SCHEDULED KLONOPIN/OXYCODONE/LOPRESSOR/LAMICTAL GIVEN VIA PEG...RESTFUL AFTERWARDS...REQUESTED ROOM LIGHTS TO BE LEFT ON...DOZING AFTER HS MEDS...VSS..TUBE FEEDS TOLERATED AT 60 CC/HR AND SCHEDULED H20 BOLUSES..SUPRAPUBIC CATHETER YELLOW URINE...NSR TO S.TACH HR 90'S-110'S...AWAKENED OVERNIGHT FOR POSITIONING..DENIED SOB OR DISCOMFORT
[2024-12-31] MEDS: Omeprazole/Na Bicarb Oral Susp 20 MG/10 ML UD Cup G-TUBE (05:36)
[2024-12-31 05:47] LABS: Basophils Percent Auto 0.3 % (0-2); Eosinophils Absolute Auto 0.2 X10*3/uL (0.0-0.4); Eosinophils Percent Auto 1.3 % (0-4); Imm Gran Abs Auto 0.08 X10*3/uL (0.00-0.03); Imm Gran Pct Auto 0.6 % (0.0-0.4); Lymphocytes Absolute Auto 1.2 X10*3/uL (1.2-4.9); Lymphocytes Percent Auto 8.7 % (20-40); Mean Corpuscular HGB Conc 30.8 g/dl (31.0-36.0); Mean Corpuscular Hemoglobin 24.4 pg (27.0-33.0); Mean Corpuscular Volume 79.3 fL (80.0-98.0); Mean Platelet Volume 12.2 fL (9.4-12.4); Monocytes Absolute Auto 1.8 X10*3/uL (0.1-1.2); Monocytes Percent Auto 13.2 % (2-11); Neutrophils Absolute Auto 10.2 x10*3/uL (2.0-8.3); Neutrophils Percent Auto 75.9 % (45-73); Platelet Count 295 X10*3/uL (160-400); Red Blood Count 3.28 X10*6/uL (4.60-5.80); Red Cell Distribution Width 18.7 % (11.0-16.0); SCAN SMEAR FLAG 1; White Blood Count 13.4 X10*3/uL (4.8-10.8)
[2024-12-31 05:52] LABS: MANUAL DIFF FLAG SCAN
[2024-12-31 05:58] LABS: VBG Base Excess 15.3 mmol/L; VBG HCO3 39 mmol/L (22-26); VBG pCO2 46 mmHg; VBG pH 7.53 (7.32-7.43); VBG pO2 58 mmHg
[2024-12-31 06:09] LABS: Albumin Level 3.6 g/dL (3.5-5.0); Anion Gap 13 (12-20); Blood Urea Nitrogen 18 mg/dL (9-16); Carbon Dioxide 31 mmol/L (22-29); Chloride 105 mmol/L (96-108); Creatinine Clr Calc Pharmacy 168.4; Estimated Glomerular Filt Rate > 60; Glucose Random 111 mg/dL (60-115); Phosphorus 3.1 mg/dL (2.7-4.5); Potassium 3.5 mmol/L (3.3-5.1); Sodium 145 mmol/L (135-145)
[2024-12-31 06:53] LABS: SLIDE REVIEW VERIFIED
[2024-12-31] MEDS: Chlorhexidine Gluc Oral Rinse 15 ML MOUTHWASH BUCCAL ×2 (07:50→14:00)
[2024-12-31] MEDS: oxyCODONE HCl Immed Release 5 MG TABLET PO (07:50)
[2024-12-31] MEDS: Potassium Chloride Packet 20 MEQ PACKET PO (07:50)
[2024-12-31] MEDS: Metoprolol Tartrate 12.5 MG HALFTAB PO (07:51)
[2024-12-31] MEDS: Cholecalciferol (Vitamin D3) 25 MCG TABLET 50 MCG G-TUBE (07:51)
[2024-12-31] MEDS: lamoTRIgine 25 MG TABLET 50 MG PO (07:51)
[2024-12-31] MEDS: Amoxicillin/Potassium Clav 875 MG TABLET PO (07:51)
[2024-12-31] MEDS: clonazePAM 1 MG TABLET PO ×2 (07:52→14:00)
[2024-12-31] MEDS: Mupirocin 2 % Oint 22 GM TUBE 1 APPL TOPICAL ×2 (07:52→14:31)
[2024-12-31] MEDS: 0.9 % Sodium Chloride Flush 3 ML SYRINGE IVFLUSH (07:52)
[2024-12-31] MEDS: Collagenase Clostridium Hist. 30 GM TUBE 1 APPL TOPICAL (07:53)
[2024-12-31 08:05] LABS: Venous Blood Gas Refer to POC result
--- NOTE | 2024-12-31 11:02 | MHC.CLN ---
F/U DISCUSSED AT ROUNDS WITH MD REVIEWED LABS-UNREMARKABLE NSG REPORT TOLERATING TF WITHOUT ISSUE AT MAX GOAL RATE CONTINUE OSMOLITE 1.5 AT MAX GOAL RATE 60ML/HR PROVIDES 2160KCALS (29KCALS/KG), 90G PROTEIN (1.2G/KG), 2057ML TOTAL WATER FROM FORMULA AND FLUSHES (28ML/KG) MONITOR TOLERANCE AND LYTES
--- NOTE | 2024-12-31 12:58 | MHC.CM.PN ---
Second IMM given 12/31. Insurance auth received for pt for LTACH care at [facility]. Pt will transport via [facility] today. [facility] transport auth received (booking ID# [id number]). Pts HCP Stacie notified of discharge.
[2024-12-31] MEDS: predniSONE 5 MG TABLET 15 MG PO (13:08)
--- NOTE | 2024-12-31 13:14 | P.DS_ITS ---
DS: Providers Provider Date of Service: 12/31/24 Date of admission: 12/02/24 20:00 Date of discharge: 12/31/24 Primary care physician: Ebenezer Leslie MD Consults: 12/03/24 12:28 Consult to Neurology Routine Consulting Provider: [facility] Reason for consultation: atypical MS Has provider been notified: No 12/03/24 18:27 Consult to Wound Care Routine Reason for consultation: coccyx/buttocks Has provider been notified: Yes 12/14/24 15:40 Ethics Eval Routine Comment: ? of capacity needs care home care and trach 12/16/24 15:04 Consult to General Surgery Routine Consulting Provider: [facility] Sur[facility] Reason for consultation: tracheostomy Has provider been notified: Yes 12/21/24 11:49 Consult to Psychiatry Routine Consulting Provider: [facility] Psych Covering Reason for consultation: Re-evaluation for capacity 12/22/24 11:13 Consult to Infectious Diseases Routine Consulting Provider: [facility] Infect[facility] Disease [facility] Reason for consultation: Bronchial washings: Corneybacterium and yeast DS: Transfer Hospital Acceptance Reason for Transfer: Ventilator weaning Name of Facility: [facility] DS: Diagnosis Discharge Diagnosis (1) Tachycardia: Status: Acute (2) Dysphagia: Status: Acute (3) Neurogenic urinary bladder disorder: Status: Acute (4) Myopathy: Status: Acute (5) Demyelinating disease: Status: Acute (6) Pulmonary aspiration: Status: Acute (7) Acute respiratory failure with hypoxia: Status: Acute (8) Anxiety: Status: Acute DS: Summary Hospital Course Hospital Course: 39-year-old gentleman with underlying presumptive multiple sclerosis/neuromyelitis optica, paraplegia, neurogenic bladder status post suprapubic catheter, status post PEG, admitted on 12/02/2024 with suprapubic catheter occlusion causing urinary retention and acute UTI, and also hypoxic respiratory failure secondary to recurrent pulmonary aspiration. Hospital course significant for recurrent pulmonary aspiration and hypoxemia requiring intubation and transfer to intensive care unit on 12/15/2024. Patient is status post tracheostomy on 12/17/2024, transferred to telemetry on 12/20/2024. On 12/26/2024 patient with recurrent pulmonary aspiration resulting in acute hypoxic respiratory failure requiring re-initiation ventilatory support through tracheostomy and transfer to intensive care unit. Now with improving tolerance of weaning/support trials tolerating pressor support/tracheal course of the day and requiring some ventilatory support at night. Status at Discharge Functional status at discharge: bed bound Time Attestation Total time managing care of this patient today: 60 mintues. Discharge Coordination Time (in mins): 60 Quality: Safe Use of Opioids Does Pt have an Active Cancer Diagnosis on the Problem List?: No Quality: Stroke Does the patient have a stroke diagnosis?: No Physical Exam Vital Signs: Vital Signs: Last Vital Signs Temp 98.2 F 12/31/24 12:00 Pulse 106 H 12/31/24 12:00 Resp 31 H 12/31/24 12:00 BP 112/68 12/31/24 12:00 Pulse Ox 93 12/31/24 12:00 O2 Del Method Mechanical Ventil ation 12/31/24 12:00 O2 Flow Rate 5 12/29/24 08:00 FiO2 35 12/31/24 12:00 Oxygen Flow Rate 6 12/02/24 12:11 BMI result Body Mass Index 27.7 Const: General: no acute distress, alert and awake Eyes: Sclerae: sclerae normal EOM: EOMs intact bilaterally Neck: Neck: Yes no lymphadenopathy, Yes trachea midline, Yes supple and Yes tracheostomy present (On vent) Resp: Auscultation: clear to auscultation bilaterally Cardio: Rate: tachycardic Rhythm: regular rhythm Heart sounds: no gallops, no murmurs and no rubs GI: Inspection: Yes G-tube present Palpation (GI): Soft to palpation and Other GI palpation findings present ( Nontender) Auscultation: normal bowel sounds Extrem: General: Yes no pedal edema, No clubbing and No cyanosis DS: Data Data Completed and Pending Completed studies during hospitalization [Text1]: Procedures Drainage of Bladder with Drainage Device, Percutaneous Endoscopic Approach (10/20/23) Drainage of Spinal Canal, Percutaneous Approach, Diagnostic (11/18/24) Fluoroscopy of Spinal Cord (11/18/24) Insertion of Feeding Device into Stomach, Percutaneous Approach (11/18/24) Introduction of Vasopressor into Peripheral Vein, Percutaneous Approach (04/05/23) Labs on day of discharge: Laboratory Results - last 24 hr 12/31/24 12/31/24 05:39 05:54 WBC 13.4 H RBC 3.28 L Hgb 8.0 L Hct 26.0 L MCV 79.3 L MCH 24.4 L MCHC 30.8 L RDW 18.7 H Plt Count 295 MPV 12.2 Immature Gran % (Auto) 0.6 H Neut % (Auto) 75.9 H Lymph % (Auto) 8.7 L [place] % (Auto) 13.2 H Eos % (Auto) 1.3 Baso % (Auto) 0.3 Lymph # (Auto) 1.2 [place] # (Auto) 1.8 H Eos # (Auto) 0.2 Baso # (Auto) 0.0 Abs Immat Gran (auto) 0.08 H Absolute Neuts (auto) 10.2 H Absolute Nucleated RBC 0.000 Nucleated RBC % (auto) 0.0 Smear Tech's Comments VERIFIED VBG pH 7.53 H VBG pCO2 46 VBG pO2 58 VBG HCO3 39 H VBG O2 Saturation TNP VBG Base Excess 15.3 Sodium 145 Potassium 3.5 Chloride 105 Carbon Dioxide 31 H Anion Gap 13 BUN 18 H Creatinine 0.63 Estim Creat Clear Calc 168.4 Estimated GFR > 60 Random Glucose 111 Calcium 9.0 Phosphorus 3.1 Magnesium 2.0 Albumin 3.6 Discharge Plan Discharge Patient Disposition: Xfer LTC Discharge Diagnosis: Demyelinating disease status post tracheostomy and gastrostomy with difficulty to wean from ventilatory support Referrals: Name,MD Ebenezer [Primary Care Provider] - 1 Week Discharge Medications: Discontinued (DME) syringe disposable, irrigation 60 mL syringe See Rx Instructions .Route Qty: 2 5RF Rx Instructions: As directed 2 per month (DME) Villatoro Catheter Tray Tray See Rx Instructions .Route Qty: 2 5RF Rx Instructions: As directed 2 per month (DME) [place] Urinary Drainage Bag Misc See Rx Instructions .Route Qty: 2 5RF Rx Instructions: As directed, 2 per month (DME) Urinary Leg Bag Misc See Rx Instructions .Route Qty: 4 5RF Rx Instructions: As directed, 4 per month. (DME) Villatoro Catheter 20 Fr misc See Rx Instructions .Route Qty: 2 5RF Rx Instructions: As directed, 2 per month. clindamycin phosphate 1 % lotion 1 appl topical BID clotrimazole-betamethasone 1-0.05 % cream 1 appl topical BID prednisone 20 mg tablet 20 mg PO DAILY cyclobenzaprine 10 mg tablet 10 mg feeding tube TID Qty: 90 0RF acetaminophen 500 mg tablet 500 mg feeding tube Q6H PRN (Reason: mild pain) Qty: 90 0RF ascorbic acid (vitamin C) [Vitamin C] 500 mg tablet 500 mg feeding tube BID 90 Days Qty: 180 1RF sertraline 50 mg tablet 50 mg feeding tube DAILY Qty: 90 0RF cholecalciferol (vitamin D3) [Vitamin D3] 50 mcg (2,000 unit) capsule 50 mcg feeding tube DAILY Qty: 90 0RF scopolamine base [Transderm-Scop] 1 mg over 3 days Patch 3 Day 1.5 mg EAR-BEHIND Q72H Qty: 10 0RF sennosides [Senna Lax] 8.6 mg Tablet 17.2 mg G-tube BEDTIME Qty: 30 0RF Discharge Orders: Discharge Order (Routine); Ordered 12/31/24 Ordered By: Reji Jasmine Diet: Tube feeds Activity on Discharge: Bed-bound Stand Alone Forms: Patient Portal Discharge page Print Language: Divehi Care Plan Goals: Continue ventilator weaning. Health Concerns: Demyelinating disease with myopathy now status post tracheostomy and gastrostomy. Plan of Treatment: Neuro: underlying demyelinating disorder Cardiac: No acute issues. Underlying chronic tachycardia likely related to autonomic instability. Pulmonary: acute hypoxic respiratory failure secondary to recurrent pulmonary aspiration, now status post tracheostomy. Now with improving tolerance of weaning trials. Continue to wean as tolerated. Renal: No acute issues. Underlying neurogenic bladder. Endo: No acute issues. GI: No acute issues. ID: Pulmonary aspiration pneumonitis versus pneumonia, Unasyn switched to Augmentin to finish 7 days of therapy. Heme/Onc: No acute issues. Psych: Underlying significant anxiety, continue Klonopin. Miscellaneous: No acute issues. Discharge medications: Augmentin 875/125 b.i.d. 7 days p.o. Chlorhexidine 15ml TID buccal Klonopin 1 mg p.o. t.i.d. Collagenase topical b.i.d. Lovenox 40 subQ daily Lamictal 50 p.o. b.i.d. Metoprolol tartrate 12.5 mg p.o. b.i.d. Omeprazole 20 mg p.o. daily Prednisone 50 mg p.o. daily Senokot 17.2 mg p.o. daily Tube feeding diet: Osmolite 1.5 run for 24 hours at 60 mL/hr with water flushes 240 mL every 6 hours Assessment: 39-year-old gentleman with underlying demyelinating disease with neurogenic bladder status post suprapubic catheter, dysphagia status post PEG admitted with suprapubic catheter dysfunction causing UTI, further complicated by recurrent pulmonary aspiration resulting in acute hypoxic respiratory failure requiring intubation, now status post tracheostomy requiring further weaning from ventilatory support.
[2024-12-31] MEDS: LORazepam 1 MG TABLET 2 MG PO (14:00)
== END 2024-12-31 15:27 | DRG 4 ==
LOC: HO.ED 18:53 → HO.EDOVER 20:17 → HO.IMC 12-03 15:45 → HO.ICU 12-15 03:49 → HO.IMC 12-19 14:51 → HO.ICU 12-26 17:47
PROVIDERS: Hospitalist; Internal Medicine; Internal Medicine Critical Care Medicine; Nurse Practitioner Family; Physician Assistant; Physician Assistant Medical; Registered Nurse Community Health; Student in an Organized Health Care Education/Training Program; Surgery; Admitting Provider Student in an Organized Health Care Education/Training Program; Emergency Provider Emergency Medicine; PCP Internal Medicine Geriatric Medicine; Visit Provider Internal Medicine Pulmonary Disease
PROC: 0B110F4 Bypass Trachea to Cutaneous with Tracheostomy Device, Open Approach (ICD-10-PCS; principal; 2024-12-17 12:10)
DX: T83.510A Infection and inflammatory reaction due to cystostomy catheter, initial encounter (principal); G04.81 Other encephalitis and encephalomyelitis; J18.9 Pneumonia, unspecified organism; G93.41 Metabolic encephalopathy; J69.0 Pneumonitis due to inhalation of food and vomit; J80 Acute respiratory distress syndrome; R65.21 Severe sepsis with septic shock; I47.10 Supraventricular tachycardia, unspecified; N13.6 Pyonephrosis; G82.20 Paraplegia, unspecified; N17.9 Acute kidney failure, unspecified; G37.9 Demyelinating disease of central nervous system, unspecified; J98.11 Atelectasis; K94.22 Gastrostomy infection; L03.311 Cellulitis of abdominal wall; Z16.19 Resistance to other specified beta lactam antibiotics; B96.89 Other specified bacterial agents as the cause of diseases classified elsewhere; E87.6 Hypokalemia; R13.10 Dysphagia, unspecified; L89.152 Pressure ulcer of sacral region, stage 2; T83.090A Other mechanical complication of cystostomy catheter, initial encounter; Y73.8 Miscellaneous gastroenterology and urology devices associated with adverse incidents, not elsewhere classified; Z74.01 Bed confinement status; D50.9 Iron deficiency anemia, unspecified; Z99.3 Dependence on wheelchair; Z20.822 Contact with and (suspected) exposure to COVID-19; N31.9 Neuromuscular dysfunction of bladder, unspecified; Z87.891 Personal history of nicotine dependence
CPT/HCPCS: 0241U; 36415; 36600; 71045; 71275; 74018; 74177; 80048; 80053; 80202; 81001; 82040; 82565; 82803; 82947; 83605; 83690; 83735; 83880; 84100; 84132; 84145; 84439; 84443; 84481; 84484; 85007; 85014; 85018; 85025; 85027; 85610; 86850; 86900; 86901; 86923; 87040; 87070; 87071; 87086; 87088; 87186; 87205; 87633; 87640; 87641; 93005; 94002; 94003; 94640; 94799; 99284; 99285; J0131; J0295; J0330; J0692; J1171; J1569; J1596; J1650; J1720; J1885; J1940; J2003; J2060; J2250; J2270; J2371; J2543; J2704; J2795; J3010; J3370; J3371; J3480; J7120; P9016; P9047; Q9967

== ENCOUNTER → 2024-12-02 12:11 | Outpatient (BNV) | payer OTHER, SELFPAY | PROVIDERS: Admitting Provider Student in an Organized Health Care Education/Training Program; Emergency Provider Emergency Medicine; PCP Internal Medicine Geriatric Medicine; Visit Provider Internal Medicine | DX: R00.0 Tachycardia, unspecified (principal) | CPT/HCPCS: 93010 ==

== ENCOUNTER → 2024-12-02 13:14 | Outpatient (BNV) | payer OTHER, SELFPAY | PROVIDERS: Emergency Provider Emergency Medicine; PCP Internal Medicine Geriatric Medicine; Visit Provider Radiology Diagnostic Radiology | DX: J15.0 Pneumonia due to Klebsiella pneumoniae (principal); R18.8 Other ascites; N13.30 Unspecified hydronephrosis; K63.89 Other specified diseases of intestine; J94.2 Hemothorax; Z95.828 Presence of other vascular implants and grafts | CPT/HCPCS: 71045; 71275; 74177 ==

== ENCOUNTER 2024-12-02 20:00 | Outpatient (BNV) | payer OTHER, SELFPAY | END 2024-12-26 15:30 | PROVIDERS: Admitting Provider Student in an Organized Health Care Education/Training Program; Emergency Provider Emergency Medicine; PCP Internal Medicine Geriatric Medicine; Visit Provider Radiology Diagnostic Radiology | DX: J18.9 Pneumonia, unspecified organism (principal) | CPT/HCPCS: 71045 ==

== ENCOUNTER 2024-12-02 20:00 | Outpatient (BNV) | payer OTHER, SELFPAY | END 2024-12-26 19:44 | PROVIDERS: Admitting Provider Student in an Organized Health Care Education/Training Program; Emergency Provider Emergency Medicine; PCP Internal Medicine Geriatric Medicine; Visit Provider Internal Medicine Cardiovascular Disease | DX: R00.0 Tachycardia, unspecified (principal) | CPT/HCPCS: 93010 ==

== ENCOUNTER 2024-12-02 20:00 | Outpatient (BNV) | payer OTHER, SELFPAY | END 2024-12-04 04:01 | PROVIDERS: Admitting Provider Student in an Organized Health Care Education/Training Program; Emergency Provider Emergency Medicine; PCP Internal Medicine Geriatric Medicine; Visit Provider Internal Medicine | DX: R94.31 Abnormal electrocardiogram [ECG] [EKG] (principal) | CPT/HCPCS: 93010 ==

== ENCOUNTER 2024-12-02 20:00 | Outpatient (BNV) | payer OTHER, SELFPAY | END 2024-12-15 03:54 | PROVIDERS: Admitting Provider Student in an Organized Health Care Education/Training Program; Emergency Provider Emergency Medicine; PCP Internal Medicine Geriatric Medicine; Visit Provider General Practice | DX: J98.11 Atelectasis (principal); Z43.0 Encounter for attention to tracheostomy; Z45.2 Encounter for adjustment and management of vascular access device; J90 Pleural effusion, not elsewhere classified | CPT/HCPCS: 71045 ==

== ENCOUNTER 2024-12-02 20:00 | Outpatient (BNV) | payer OTHER, SELFPAY | END 2024-12-30 08:30 | PROVIDERS: Admitting Provider Student in an Organized Health Care Education/Training Program; Emergency Provider Emergency Medicine; PCP Internal Medicine Geriatric Medicine; Visit Provider Radiology Diagnostic Radiology | DX: R09.02 Hypoxemia (principal) | CPT/HCPCS: 71045 ==

== ENCOUNTER 2024-12-02 20:00 | Outpatient (BNV) | payer OTHER, SELFPAY | END 2024-12-17 10:40 | PROVIDERS: Admitting Provider Student in an Organized Health Care Education/Training Program; Emergency Provider Emergency Medicine; PCP Internal Medicine Geriatric Medicine; Visit Provider Radiology Diagnostic Radiology | DX: J90 Pleural effusion, not elsewhere classified (principal); J98.11 Atelectasis; Z99.11 Dependence on respirator [ventilator] status; Z93.0 Tracheostomy status | CPT/HCPCS: 71045 ==

== ENCOUNTER → 2024-12-02 20:00 | Outpatient (BNV) | payer OTHER, SELFPAY | PROVIDERS: Admitting Provider Student in an Organized Health Care Education/Training Program; Emergency Provider Emergency Medicine; PCP Internal Medicine Geriatric Medicine; Visit Provider Internal Medicine Critical Care Medicine | DX: G37.9 Demyelinating disease of central nervous system, unspecified (principal); A41.9 Sepsis, unspecified organism; E87.6 Hypokalemia; N31.9 Neuromuscular dysfunction of bladder, unspecified; J69.0 Pneumonitis due to inhalation of food and vomit; J18.9 Pneumonia, unspecified organism | CPT/HCPCS: 31500; 31624; 36556; 99291; 99499 ==

== ENCOUNTER → 2024-12-02 20:00 | Outpatient (BNV) | payer OTHER, SELFPAY | PROVIDERS: Admitting Provider Student in an Organized Health Care Education/Training Program; Emergency Provider Emergency Medicine; PCP Internal Medicine Geriatric Medicine; Visit Provider Surgery | DX: J69.0 Pneumonitis due to inhalation of food and vomit (principal); J96.90 Respiratory failure, unspecified, unspecified whether with hypoxia or hypercapnia | CPT/HCPCS: 31600; 99222 ==

== ENCOUNTER → 2024-12-02 20:00 | Outpatient (BNV) | payer OTHER, SELFPAY | PROVIDERS: Admitting Provider Student in an Organized Health Care Education/Training Program; Emergency Provider Emergency Medicine; PCP Internal Medicine Geriatric Medicine; Visit Provider Hospitalist | DX: A41.9 Sepsis, unspecified organism (principal); N39.0 Urinary tract infection, site not specified; R00.0 Tachycardia, unspecified | CPT/HCPCS: 99223; 99233 ==

== ENCOUNTER → 2024-12-02 20:00 | Outpatient (BNV) | payer OTHER, SELFPAY | PROVIDERS: Admitting Provider Student in an Organized Health Care Education/Training Program; Emergency Provider Emergency Medicine; PCP Internal Medicine Geriatric Medicine; Visit Provider Internal Medicine Pulmonary Disease | DX: R13.10 Dysphagia, unspecified (principal); N31.9 Neuromuscular dysfunction of bladder, unspecified; G37.9 Demyelinating disease of central nervous system, unspecified; J96.01 Acute respiratory failure with hypoxia; G72.9 Myopathy, unspecified | CPT/HCPCS: 99291 ==

== ENCOUNTER → 2024-12-02 20:00 | Outpatient (BNV) | payer OTHER, SELFPAY | PROVIDERS: Admitting Provider Student in an Organized Health Care Education/Training Program; Emergency Provider Emergency Medicine; PCP Internal Medicine Geriatric Medicine; Visit Provider Internal Medicine | DX: R00.0 Tachycardia, unspecified (principal); A41.9 Sepsis, unspecified organism | CPT/HCPCS: 99222 ==

== ENCOUNTER → 2024-12-02 20:00 | Outpatient (BNV) | payer OTHER, SELFPAY | PROVIDERS: Admitting Provider Student in an Organized Health Care Education/Training Program; Emergency Provider Emergency Medicine; PCP Internal Medicine Geriatric Medicine; Visit Provider Psychiatry & Neurology Neurology | DX: G37.9 Demyelinating disease of central nervous system, unspecified (principal) | CPT/HCPCS: 99222 ==

== ENCOUNTER → 2024-12-02 20:00 | Outpatient (BNV) | payer OTHER, SELFPAY | PROVIDERS: Admitting Provider Student in an Organized Health Care Education/Training Program; Emergency Provider Emergency Medicine; PCP Internal Medicine Geriatric Medicine; Visit Provider Social Worker | DX: F99 Mental disorder, not otherwise specified (principal); R41.89 Other symptoms and signs involving cognitive functions and awareness; Z13.30 Encounter for screening examination for mental health and behavioral disorders, unspecified | CPT/HCPCS: 99232 ==